=== PATIENT | male | born 1940 | race Caucasian/White ===

== ENCOUNTER 2017-11-06 01:48 | Inpatient (IN) | payer MEDICARE ==
[2017-11-06] VITALS (14 sets, daily range): BP systolic 118–159; BP diastolic 57–75; PULSE 68–88; RESP 16–20; TEMP 96–98.3; O2SAT 94–99
[2017-11-06] MEDS ORDERED: SODIUM CHLORIDE 0.9% FLUSH 10 ML FLUSH IVF PRN (02:15)
[2017-11-06] MEDS ORDERED: methylPREDNISolone SOD SUCC 125 MG/2 ML VIAL IV PUSH ONE (02:15)
[2017-11-06 02:27] LABS: AUTOMATED NEUTROPHIL # 8.2 TH/MM3 (1.8-7.7); BASOPHIL % 0.4 % (0.0-2.0); HEMATOCRIT 34.1 % (39.0-51.0); HEMOGLOBIN 11.2 GM/DL (13.0-17.0); LYMPH % 13.1 % (9.0-44.0); LYMPHOCYTE # 1.4 TH/MM3 (1.0-4.8); MEAN CELL VOLUME 82.5 FL (80.0-100.0); MEAN CORPUSCULAR HGB CONC 32.8 % (32.0-36.0); MEAN PLATELET VOLUME 7.3 FL (7.0-11.0); MONOCYTE # 0.7 TH/MM3 (0-0.9); NEUT % 79.5 % (16.0-70.0); PLATELET COUNT 398 TH/MM3 (150-450); RED BLOOD COUNT 4.13 MIL/MM3 (4.50-5.90); RED CELL DISTRIBUTION WIDTH 16.2 % (11.6-17.2); WHITE BLOOD COUNT 10.3 TH/MM3 (4.0-11.0)
--- NOTE | 2017-11-06 02:36 | RADRPT ---
EXAM DATE/TIME: 11/06/2017 02:17 [place] COMPARISON: No previous studies available for comparison. INDICATIONS : Short of breath. MEDICAL HISTORY : None. SURGICAL HISTORY : None. ENCOUNTER: Initial ACUITY: 1 day PAIN SCORE: 6/10 LOCATION: Bilateral chest FINDINGS: Ill-defined infiltrate in left lung base. Right lung is clear. A significant effusion demonstrated. N o pneumothorax. Heart size upper limits of normal. CONCLUSION: Mild left base infiltrate. Abdiel Vidales MD on November 06, 2017 at 2:34 Board Certified Radiologist. This report was verified electronically.
--- NOTE | 2017-11-06 02:38 | PD ---
HPI Chief Complaint: Respiratory Symptoms Time Seen by Provider: 02:05 Travel History International Travel<30 days: No Contact w/Intl Traveler<30days: No Traveled to known affect area: No History of Present Illness HPI 77-year-old male patient with history of COPD, recently admitted to [facility] for COPD, here because of disorientation tonight and worsening shortness of breath with low saturations of 67% when EMS got there. He was given nebulizers and saturations appeared to be improved and breathing appears to be improved. He is a poor historian, but denies any chest pains or other issues at this time. Modifying Factors: None Associated Signs & Symptoms: Altered mental status, worsening respiratory distress Risk Factors: COPD history PFSH Social History Tobacco Use: Yes Allergies-Medications (Allergen,Severity, Reaction): Coded Allergies: aspirin (Unverified Allergy, Severe, 04/13/17) Reported Meds & Prescriptions Reported Meds & Active Scripts Active Reported Novolog Inj (Insulin Aspart) 1,000 Unit/10 Ml Vial 0 SQ DIRECTED Sliding Scale as directed. Diltiazem (Diltiazem HCl) 60 Mg Tab 60 Mg PO QID Combivent Respimat Inh (Ipratropium-Albuterol Inh) 20-100 Long Term/Act Aero 1 Puff INH QID Duoneb (Ipratropium-Albuterol Neb) 0.5-2.5 Mg/3 Ml Neb 1 Nebule INH Q6HR NEB Linezolid 600 Mg Tab 600 Mg PO Q12H Potassium Chloride ER (Potassium Chloride) 10 Meq Cap 10 Meq PO BID Metoprolol Tartrate 25 Mg Tab 25 Mg PO BID Bumetanide 2 Mg Tab 2 Mg PO BID Eliquis (Apixaban) 5 Mg Tab 5 Mg PO BID Prednisone 20 Mg Tab 20 Mg PO BID Colace (Docusate Sodium) 100 Mg Capsule 100 Mg PO BID Lantus Inj (Insulin Glargine) 1,000 Unit/10 Ml Vial 60 Units SQ HS Asmanex 120 Act Twisthaler (Mometasone 120 Act Inh) 220 Mcg/Act Inh 1 Puff INH HS Gabapentin 300 Mg Cap 300 Mg PO HS Atorvastatin (Atorvastatin Calcium) 80 Mg Tab 80 Mg PO HS Novolog Inj (Insulin Aspart) 1,000 Unit/10 Ml Vial 45 Units SQ ACHS Max dose at bedtime:( )units; sugars less than 70,(0) units; sugars 150-199,(5) units; sugars 200-249,(10) units; sugars 250-299,(15) units; sugars 300-349,(20)units; sugars greater than 349,(25)units Miralax Powder (Polyethylene Glycol 3350 Powder) 17 Gm Powd 17 Gm PO DAILY Mix and dissolve one measuring cap-ful (17 grams) in water or juice. Stiolto Respimat Inh (Tiotropium-Olodaterol Inh) 2.5-2.5 Mcg/Act Aero 2 Puff INH DAILY Centrum (Multiple Vitamins W/ Minerals) 1 Chew 1 Tab CHEW DAILY Digoxin 0.125 Mg Tab 0.125 Mg PO DAILY Alfuzosin ER 24 HR 10 Mg Tab 10 Mg PO DAILY Prednisone 20 Mg Tab 20 Mg PO DAILY Omeprazole 20 Mg Tab 20 Mg PO DAILY Review of Systems ROS Limitations: Poor Historian Except as stated in HPI: all other systems reviewed are Neg Physical Exam Narrative GENERAL: Elderly white male patient who is in mild respiratory distress. Awake , disoriented. SKIN: Focused skin assessment warm/dry. HEAD: Atraumatic. Normocephalic. EYES: Pupils equal and round. No scleral icterus. No injection or drainage. ENT: No nasal bleeding or discharge. Mucous membranes pink and moist. NECK: Trachea midline. No JVD. CARDIOVASCULAR: Regular rate and rhythm. No murmur appreciated. RESPIRATORY: Mild accessory muscle use. Decreased throughout. Breath sounds equal bilaterally. GASTROINTESTINAL: Abdomen soft, non-tender, nondistended. Hepatic and splenic margins not palpable. MUSCULOSKELETAL: No obvious deformities. No clubbing. No cyanosis. No edema. NEUROLOGICAL: Awake and alert. No obvious cranial nerve deficits. Motor grossly within normal limits. Normal speech. PSYCHIATRIC: Appropriate mood and affect; insight and judgment normal. Data Data Last Documented VS Vital Signs Date Time Temp Pulse Resp B/P (MAP) Pulse Ox O2 Delivery O2 Flow Rate FiO2 11/06/17 02:57 78 18 118/57 (77) 95 Nasal Cannula 2.00 Orders Orders Complete Blood Count With Diff (11/06/17 02:05) Comprehensive Metabolic Panel (11/06/17 02:05) B-Type Natriuretic Peptide (11/06/17 02:05) Ckmb (Isoenzyme) Profile (11/06/17 02:05) Troponin I (11/06/17 02:05) Arterial Blood Gas (Abg) (11/06/17 02:05) Blood Culture (11/06/17 02:05) Iv Access Insert/Monitor (11/06/17 02:05) Ecg Monitoring (11/06/17 02:05) Oximetry (11/06/17 02:05) Oxygen Administration (11/06/17 02:05) Chest, Single Ap (11/06/17 02:05) Sodium Chloride 0.9% Flush (Ns Flush) (11/06/17 02:15) Methylprednisolone So Succ Inj (Solumedr (11/06/17 02:15) Albuterol-Ipratropium Neb (Duoneb Neb) (11/06/17 02:15) Admit Order (Ed Use Only) (11/06/17 03:40) Labs Laboratory Tests Test 11/06/17 02:08 11/06/17 02:45 White Blood Count 10.3 TH/MM3 Red Blood Count 4.13 MIL/MM3 Hemoglobin 11.2 GM/DL Hematocrit 34.1 % Mean Corpuscular Volume 82.5 FL Mean Corpuscular Hemoglobin 27.0 PG Mean Corpuscular Hemoglobin Concent 32.8 % Red Cell Distribution Width 16.2 % Platelet Count 398 TH/MM3 Mean Platelet Volume 7.3 FL Neutrophils (%) (Auto) 79.5 % Lymphocytes (%) (Auto) 13.1 % Monocytes (%) (Auto) 7.0 % Eosinophils (%) (Auto) 0.0 % Basophils (%) (Auto) 0.4 % Neutrophils # (Auto) 8.2 TH/MM3 Lymphocytes # (Auto) 1.4 TH/MM3 Monocytes # (Auto) 0.7 TH/MM3 Eosinophils # (Auto) 0.0 TH/MM3 Basophils # (Auto) 0.0 TH/MM3 CBC Comment DIFF FINAL Differential Comment Blood Urea Nitrogen 31 MG/DL Creatinine 1.35 MG/DL Random Glucose 283 MG/DL Total Protein 6.4 GM/DL Albumin 3.1 GM/DL Calcium Level 8.3 MG/DL Alkaline Phosphatase 45 U/L Aspartate Amino Transf (AST/SGOT) 12 U/L Alanine Aminotransferase (ALT/SGPT) 30 U/L Total Bilirubin 0.3 MG/DL Sodium Level 138 MEQ/L Potassium Level 4.3 MEQ/L Chloride Level 91 MEQ/L Carbon Dioxide Level 42.6 MEQ/L Anion Gap 4 MEQ/L Estimat Glomerular Filtration Rate 51 ML/MIN Total Creatine Kinase 39 U/L Troponin I 0.04 NG/ML B-Type Natriuretic Peptide 65 PG/ML Blood Gas Puncture Site LT BRACHIAL Blood Gas Patient Temperature 98.6 Blood Gas HCO3 40 mmol/L Blood Gas Base Excess 14.2 mmol/L Blood Gas Oxygen Saturation 90 % Arterial Blood pH 7.41 Arterial Blood Partial Pressure CO2 64 mmHg Arterial Blood Partial Pressure O2 62 mmHG Arterial Blood Oxygen Content 13.1 Vol % Arterial Blood Carboxyhemoglobin 1.7 % Arterial Blood Methemoglobin 0.5 % Blood Gas Hemoglobin 10.4 G/DL Oxygen Delivery Device NASAL CANNULA Blood Gas Liter Flow 2 L/M MDM Medical Decision Making Medical Screen Exam Complete: Yes Emergency Medical Condition: Yes Medical Record Reviewed: Yes Interpretation(s) Laboratory Tests Test 11/06/17 02:08 11/06/17 02:45 Red Blood Count 4.13 MIL/MM3 (4.50-5.90) Hemoglobin 11.2 GM/DL (13.0-17.0) Hematocrit 34.1 % (39.0-51.0) Neutrophils (%) (Auto) 79.5 % (16.0-70.0) Neutrophils # (Auto) 8.2 TH/MM3 (1.8-7.7) Blood Urea Nitrogen 31 MG/DL (7-18) Creatinine 1.35 MG/DL (0.60-1.30) Random Glucose 283 MG/DL (74-106) Albumin 3.1 GM/DL (3.4-5.0) Calcium Level 8.3 MG/DL (8.5-10.1) Aspartate Amino Transf (AST/SGOT) 12 U/L (15-37) Chloride Level 91 MEQ/L (98-107) Carbon Dioxide Level 42.6 MEQ/L (21.0-32.0) Anion Gap 4 MEQ/L (5-15) Estimat Glomerular Filtration Rate 51 ML/MIN (>89) Blood Gas HCO3 40 mmol/L (22-26) Blood Gas Base Excess 14.2 mmol/L (-2-2) Arterial Blood Partial Pressure CO2 64 mmHg (38-42) Blood Gas Hemoglobin 10.4 G/DL (12.0-16.0) Last 24 hours Impressions Chest X-Ray 11/06/17 0205 Signed Impressions: Service Date/Time: Monday, November 06, 2017 02:17 - CONCLUSION: Mild left base infiltrate. Abdiel Vidales MD Differential Diagnosis Shortness of breath, altered mental status: Worsening COPD exacerbation versus pneumonia versus metabolic issues versus dehydration versus hypercapnia Narrative Course Mild left basilar infiltrates on chest x-ray. Patient was given Solu-Medrol and several nebulizers in the ER with improvement in breathing and mental status. He apparently is on oxygen at home, and once he is more alert, does not remember how he got here what happened. He does have hypercapnia of 60 on ABG. At this point, I suspect that the hypercapnia may have been an issue as well. Patient admits that he had recently had pneumonia and is unclear whether the infiltrate is all from the pneumonia. My plan at this point would be to admit him for further observation and treatment. Case has been discussed with Dr. Alejandre for admission. Diagnosis Primary Impression: Shortness of breath Additional Impressions: COPD exacerbation Altered mental status Admitting Information Admitting Physician Requests: Admit Bolivar Khan MD Nov 06, 2017 02:38
[2017-11-06 02:45] LABS: ALBUMIN 3.1 GM/DL (3.4-5.0); AST (GOT) 12 U/L (15-37); BICARBONATE 42.6 MEQ/L (21.0-32.0); BLOOD UREA NITROGEN 31 MG/DL (7-18); CALCIUM 8.3 MG/DL (8.5-10.1); CHLORIDE 91 MEQ/L (98-107); CREATININE 1.35 MG/DL (0.60-1.30); GLOMERULAR FILTRATION RATE 51 ML/MIN (>89); GLUCOSE,RANDOM 283 MG/DL (74-106); SODIUM (NA) 138 MEQ/L (136-145)
[2017-11-06] MEDS: RESP: ALBUTEROL 2.5 MG/IPRATROPIUM 0.5 MG NEB (SCH) INH (02:45)
[2017-11-06] MEDS ORDERED: MIRA3350 PO (02:46)
[2017-11-06] MEDS ORDERED: OMEP20TA93 PO (02:46)
[2017-11-06] MEDS ORDERED: GABA300C5 PO (02:46)
[2017-11-06] MEDS ORDERED: ALFU10TA2 PO (02:46)
[2017-11-06] MEDS ORDERED: ATOR80TA45 PO (02:46)
[2017-11-06] MEDS ORDERED: CENTCHW4 CHEW (02:46)
[2017-11-06] MEDS ORDERED: ASMA220A INH (02:46)
[2017-11-06] MEDS ORDERED: COLA100C5 PO (02:46)
[2017-11-06] MEDS ORDERED: DIGO0.12 PO (02:46)
[2017-11-06] MEDS ORDERED: PRED20 PO ×2 (02:46→02:47)
[2017-11-06] MEDS ORDERED: NOVOLOGP2 SQ ×2 (02:46→02:47)
[2017-11-06] MEDS ORDERED: LANTUS2P SQ (02:46)
[2017-11-06] MEDS ORDERED: TIOT1AER INH (02:46)
[2017-11-06] MEDS ORDERED: BUME2TAB PO (02:47)
[2017-11-06] MEDS ORDERED: IPRAAER INH (02:47)
[2017-11-06] MEDS ORDERED: IPRASOL INH (02:47)
[2017-11-06] MEDS ORDERED: LINE1TAB PO (02:47)
[2017-11-06] MEDS ORDERED: LACT10SO PO (02:47)
[2017-11-06] MEDS ORDERED: METO25TA3 PO (02:47)
[2017-11-06] MEDS ORDERED: DILT60TA PO (02:47)
[2017-11-06] MEDS ORDERED: POTA10CA PO (02:47)
[2017-11-06] MEDS ORDERED: APIX5TAB PO (02:47)
[2017-11-06 02:50] LABS: ALKALINE PHOSPHATASE 45 U/L (45-117); ALT (GPT) 30 U/L (12-78); TOTAL BILIRUBIN ADULT 0.3 MG/DL (0.2-1.0); TOTAL PROTEIN 6.4 GM/DL (6.4-8.2); TROPONIN I 0.04 NG/ML (0.02-0.05)
[2017-11-06] MEDS ORDERED: RESP: ALBUTEROL 2.5 MG/IPRATROPIUM 0.5 MG NEB (PRN) NEB (03:45)
[2017-11-06] MEDS ORDERED: ONDANSETRON HCL 4 MG/2 ML VIAL IVP PRN (03:45)
[2017-11-06] MEDS ORDERED: SODIUM CHLORIDE 0.9% FLUSH 10 ML FLUSH IV FLUSH PRN (03:45)
[2017-11-06] MEDS ORDERED: MAGNESIUM HYDROXIDE SUSP 30 ML CUP PO PRN (03:45)
[2017-11-06] MEDS ORDERED: SENNOSIDES 8.6 MG TAB PO PRN (03:45)
[2017-11-06] MEDS ORDERED: ACETAMINOPHEN/HYDROcodone 325 MG/10 MG TAB PO PRN (03:45)
[2017-11-06] MEDS ORDERED: LACTULOSE SYRUP 20 GM/30 ML CUP PO PRN ×2 (03:45→12:45)
[2017-11-06] MEDS ORDERED: BISACODYL 10 MG SUPP RECTAL PRN (03:45)
[2017-11-06] MEDS ORDERED: ACETAMINOPHEN 325 MG TAB PO PRN (03:45)
[2017-11-06] MEDS ORDERED: LEVOFLOXACIN 750 MG PREMIX INJ 150 ML IV SCH ×2 (03:45→04:00)
[2017-11-06] MEDS ORDERED: ACETAMINOPHEN/HYDROcodone 325 MG/5 MG TAB PO PRN (03:45)
[2017-11-06] MEDS ORDERED: GLUCAGON 1 MG/ML VIAL OTHER PRN (04:30)
[2017-11-06] MEDS ORDERED: DEXTROSE 50% IN WATER 50 ML VIAL(D50) IV PUSH PRN (04:30)
[2017-11-06] MEDS ORDERED: methylPREDNISolone SOD SUCC 40 MG/1 ML VIAL IV PUSH SCH ×2 (06:00)
[2017-11-06] MEDS: RESP: ALBUTEROL 2.5 MG/IPRATROPIUM 0.5 MG NEB (SCH) NEB ×5 (07:31→23:24)
[2017-11-06] MEDS ORDERED: RESP: ALBUTEROL 2.5 MG/IPRATROPIUM 0.5 MG NEB (SCH) NEB (08:00)
[2017-11-06] MEDS: INSULIN ASPART SUPPLEMENTAL SCALE SQ SCH ×5 (08:08→21:58)
[2017-11-06] MEDS: LINEZOLID 600 MG TAB PO SCH ×2 (08:09→21:57)
[2017-11-06] MEDS ORDERED: ENOXAPARIN SODIUM 40 MG/0.4 ML SYRINGE SQ SCH (09:00)
[2017-11-06] MEDS ORDERED: SODIUM CHLORIDE 0.9% FLUSH 10 ML FLUSH IV FLUSH SCH (09:00)
[2017-11-06] MEDS ORDERED: DOCUSATE SODIUM 50 MG/SENNA 8.6 MG TAB PO SCH (09:00)
[2017-11-06] MEDS ORDERED: BUDESONIDE-FORMOTEROL 160/4.5 MCG INHALER INH SCH (09:00)
[2017-11-06] MEDS ORDERED: guaiFENesin E.R. 600 MG TAB PO SCH (09:00)
--- NOTE | 2017-11-06 12:18 | HHI.HP ---
HPI Service [facility] Hospitalists Primary Care Physician Dr. Brijesh Leon Admission Diagnosis COPD exacerbation/altered mental status/hypercapnia Chief Complaint: SOB, hypoxia Travel History International Travel<30 Days: No Contact w/Intl Traveler <30 Da: No Traveled to Known Affected Are: No History of Present Illness Mr. Varela is a pleasant 77 y/o male with O2 dependent severe COPD, ADRIAN using BiPAP at night, A. fib, chronic diastolic CHF, and HTN who was just discharged from [facility] on 11/05/17 to a SNF after a hospitalizations (10/24/17-11/05/17) for acute on chronic respiratory failure, MRSA pneumonia ,COPD exacerbation, and A. fib RVR. Review of the discharge summary from [facility] reports that the pt was intubated from 10/24-10/25/17 and was treated for acute COPD exacerbation with nebs and steroids. Pt was also being treated for MRSA pneumonia with Zyvoxx per ID recommendations. It appears the pt developed A. fib RVR during that hospitalization and was treated with IV Dig and IV Verapamil and then converted to Digoxin 0.125mg po daily and Diltiazem 60mg QID. Prior to that admission he was admitted from September 23-Oct 03, 2017 with enterococcus bacteremia, Pneumonia , COPD and a buttock wound. According to outpt records he was treated as an outpt with IV Unasyn until 10/12/17. Pt was brought to the ED at [facility] on 11/05/17 from [facility] with reported confusion and worsening shortness of breath that started during the night. Pt was noted to have low O2 saturations of 67% when EMS arrived at the rehab. He was given nebulizers en route per the ED reports and O2 saturations appeared to be improved. Pt was given a dose of IV Solu-Medrol in the ED and repeat Duoneb treatments. Blood cultures were drawn in the ED. Pt has been afebrile and WBC count was 10 at admission. He has been maintaining O2 sats on 2-3L of supplemental O2 which is reportedly what he is on chronically. Pt was continued on Solu-Medrol 40mg Q8H. Pts family reports that the pt has been having issues with anxiety and they felt that the pt may have had increased anxiety last night which has caused him to drop his O2 sats in the past. Pt takes Xanax at home for anxiety but family reports that during his last hospitalization he was given Ativan and slept for 12 hours and was told not to use any anxiolytics anymore but they family feels that the pt was just given too large of a dose and are wanting to go back to the pts smaller Xanax dose as needed. Pt and family at bedside feel that his breathing is back to around baseline. Review of Systems ROS Limitations: Poor Historian Respiratory: COMPLAINS OF: Cough, Shortness of breath Past Family Social History Past Medical History Severe COPD, O2 dependent. Pt follows with Dr. Pirce as an outpt ADRIAN on BIPAP at night Hx of respiratory failure requiring mechanical ventilation A. fib CHF, chronic diastolic IDDM Anxiety 1st degree AV block Iron deficiency anemia HTN Hyperlipidemia GERD Gastroparesis Hx of tobacco use Past Surgical History Right knee surgery Right carpal tunnel release Cardiac ablation Reported Medications -Duoneb (Ipratropium-Albuterol Neb) 0.5-2.5 Mg/3 Ml Neb 1 Nebule INH Q6HR NEB -Metoprolol Tartrate 25 Mg PO BID -Bumetanide 2 Mg PO BID -Eliquis 5 Mg PO BID -Lantus Inj 60 Units SQ HS -Asmanex 120 Act Twisthaler (Mometasone 120 Act Inh) 220 Mcg/Act Inh 1 Puff INH HS -Gabapentin 300 Mg PO HS -Atorvastatin 80 Mg PO HS -Miralax Powder 17 Gm PO DAILY -Stiolto Respimat Inh (Tiotropium-Olodaterol Inh) 2.5-2.5 Mcg/Act Aero 2 Puff INH DAILY -Centrum (Multiple Vitamins W/ Minerals) 1 Chew 1 Tab CHEW DAILY -Digoxin 0.125 Mg PO DAILY -Alfuzosin ER 24 HR 10 Mg PO DAILY -Omeprazole 20 Mg PO DAILY -Linezolid 600 Mg PO Q12H -Diltiazem 60 Mg PO QID --Prednisone 20 Mg PO BID x 7 days then decrease to Prednisone 20 Mg PO DAILY --Novolog Inj 30Units with Breakfast, 30Units with Lunch, 45Units with dinner ?HumaLog SSI ?Combivent Respimat Inh (Ipratropium-Albuterol Inh) 20-100 Snf/Act Aero 1 Puff INH QID ?Potassium Chloride ER 10 Meq PO BID Allergies: Coded Allergies: aspirin (Unverified Allergy, Severe, 11/06/17) codeine (Verified Allergy, Severe, 11/06/17) Family History Noncontributory Social History Hx of tobacco use, smoked 3ppd x 40years, quit in 1998 Physical Exam Vital Signs Vital Signs Date Time Temp Pulse Resp B/P (MAP) Pulse Ox O2 Delivery O2 Flow Rate FiO2 11/06/17 08:50 11/06/17 08:10 98.3 76 16 159/73 (101) 96 Nasal Cannula 2.00 11/06/17 07:32 98 Nasal Cannula 3.00 11/06/17 05:20 70 18 149/68 (95) 94 Nasal Cannula 2.00 11/06/17 04:08 96 Nasal Cannula 3.00 11/06/17 02:57 78 18 118/57 (77) 95 Nasal Cannula 2.00 11/06/17 01:50 18 95 Nasal Cannula 2.00 11/06/17 01:50 96 Nasal Cannula 2.00 Physical Exam GENERAL: This is a well-nourished, well-developed patient, in no apparent distress. SKIN: No rashes, ecchymoses or lesions. Cool and dry. HEAD: Atraumatic. Normocephalic. No temporal or scalp tenderness. EYES: Pupils equal round and reactive. Extraocular motions intact. No scleral icterus. No injection or drainage. ENT: Nose without bleeding, purulent drainage or septal hematoma. Throat without erythema, tonsillar hypertrophy or exudate. Uvula midline. Airway patent. NECK: Trachea midline. No JVD or lymphadenopathy. Supple, nontender, no meningeal signs. CARDIOVASCULAR: Regular rate and rhythm without murmurs, gallops, or rubs. RESPIRATORY: Clear to auscultation. Breath sounds equal bilaterally. No wheezes , rales, or rhonchi. GASTROINTESTINAL: Abdomen soft, non-tender, nondistended. No hepato-splenomegaly , or palpable masses. No guarding. MUSCULOSKELETAL: Extremities without clubbing, cyanosis, or edema. No joint tenderness, effusion, or edema noted. No calf tenderness. Negative Homans sign bilaterally. NEUROLOGICAL: Awake and alert. Cranial nerves II through XII intact. Motor and sensory grossly within normal limits. Five out of 5 muscle strength in all muscle groups. Normal speech. Laboratory Laboratory Tests Test 3/10/18 02:08 11/06/17 02:45 White Blood Count 10.3 Red Blood Count 4.13 Hemoglobin 11.2 Hematocrit 34.1 Mean Corpuscular Volume 82.5 Mean Corpuscular Hemoglobin 27.0 Mean Corpuscular Hemoglobin Concent 32.8 Red Cell Distribution Width 16.2 Platelet Count 398 Mean Platelet Volume 7.3 Neutrophils (%) (Auto) 79.5 Lymphocytes (%) (Auto) 13.1 Monocytes (%) (Auto) 7.0 Eosinophils (%) (Auto) 0.0 Basophils (%) (Auto) 0.4 Neutrophils # (Auto) 8.2 Lymphocytes # (Auto) 1.4 Monocytes # (Auto) 0.7 Eosinophils # (Auto) 0.0 Basophils # (Auto) 0.0 CBC Comment DIFF FINAL Differential Comment Blood Urea Nitrogen 31 Creatinine 1.35 Random Glucose 283 Total Protein 6.4 Albumin 3.1 Calcium Level 8.3 Alkaline Phosphatase 45 Aspartate Amino Transf (AST/SGOT) 12 Alanine Aminotransferase (ALT/SGPT) 30 Total Bilirubin 0.3 Sodium Level 138 Potassium Level 4.3 Chloride Level 91 Carbon Dioxide Level 42.6 Anion Gap 4 Estimat Glomerular Filtration Rate 51 Total Creatine Kinase 39 Troponin I 0.04 B-Type Natriuretic Peptide 65 Blood Gas Puncture Site LT BRACHIAL Blood Gas Patient Temperature 98.6 Blood Gas HCO3 40 Blood Gas Base Excess 14.2 Blood Gas Oxygen Saturation 90 Arterial Blood pH 7.41 Arterial Blood Partial Pressure CO2 64 Arterial Blood Partial Pressure O2 62 Arterial Blood Oxygen Content 13.1 Arterial Blood Carboxyhemoglobin 1.7 Arterial Blood Methemoglobin 0.5 Blood Gas Hemoglobin 10.4 Oxygen Delivery Device NASAL CANNULA Blood Gas Liter Flow 2 Date/Time Source Procedure Growth Status 11/06/17 02:08 Blood Peripheral Aerobic Blood Culture Pending Received 11/06/17 02:08 Blood Peripheral Anaerobic Blood Culture Pending Received Result Diagram: 11/06/1720711/06/17207 Imaging Last Impressions Chest X-Ray 11/06/17204 Signed Impressions: Service Date/Time: Monday, November 06, 2017 02:17 - CONCLUSION: Mild left base infiltrate. MD Faina Gamboa VTE Risk Assessment Faina VTE Risk Assessment: Mod/High Risk (score >= 2) Caprini Risk Assessment Model Point Value = 1 Point Value = 2 Point Value = 3 Point Value = 5 Age 41-60 Minor surgery BMI > 25 kg/m2 Swollen legs Varicose veins or History of unexplained or recurrent spontaneous Oral contraceptives or hormone replacement Sepsis (< 1 month) Serious lung disease, including pneumonia (< 1 month) Abnormal pulmonary function Acute myocardial infarction Congestive heart failure (< 1 month) History of inflammatory bowel disease Medical patient at bed rest Age 61-74 Arthroscopic surgery Major open surgery (> 45 min) Laparoscopic surgery (> 45 min) Malignancy Confined to bed (> 72 hours) Immobilizing plaster cast Central venous access Age >= 75 History of VTE Family history of VTE Factor V Leiden Prothrombin [id number] Lupus anticoagulant Anticardiolipin antibodies Elevated serum homocysteine Heparin-induced thrombocytopenia Other congenital or acquired thrombophilia Stroke (< 1 month) Elective arthroplasty Hip, pelvis, or leg fracture Acute spinal cord injury (< 1 month) Prophylaxis Regimen Total Risk Factor Score Risk Level Prophylaxis Regimen 0-1 Low Early ambulation 2 Moderate Order ONE of the following: *Sequential Compression Device (SCD) *Heparin 5000 units SQ BID 3-4 Higher Order ONE of the following medications: *Heparin 5000 units SQ TID *Enoxaparin/Lovenox 40 mg SQ daily (WT < 150 kg, CrCl > 30 mL/min) *Enoxaparin/Lovenox 30 mg SQ daily (WT < 150 kg, CrCl > 10-29 mL/min) *Enoxaparin/Lovenox 30 mg SQ BID (WT < 150 kg, CrCl > 30 mL/min) AND/OR *Sequential Compression Device (SCD) 5 or more Highest Order ONE of the following medications: *Heparin 5000 units SQ TID (Preferred with Epidurals) *Enoxaparin/Lovenox 40 mg SQ daily (WT < 150 kg, CrCl > 30 mL/min) *Enoxaparin/Lovenox 30 mg SQ daily (WT < 150 kg, CrCl > 10-29 mL/min) *Enoxaparin/Lovenox 30 mg SQ BID (WT < 150 kg, CrCl > 30 mL/min) AND *Sequential Compression Device (SCD) Assessment and Plan Problem List: (1) COPD exacerbation ICD Codes: J44.1 - Chronic obstructive pulmonary disease with (acute) exacerbation Status: Acute Plan: COPD Exacerbation MRSA Pneumonia, diagnosed during recent hospitalization ADRIAN on BiPAP/Trilogy - Pt is a 77 y/o male with O2 dependent severe COPD, ADRIAN using BiPAP at night, A. fib, chronic diastolic CHF, and HTN who was just discharged from [facility] on 11/05/17 to a SNF after a hospitalizations (10/24/17-11/05/17) for acute on chronic respiratory failure, MRSA pneumonia ,COPD exacerbation, and A. fib RVR. Pt was treated for acute COPD exacerbation with nebs and steroids. Pt was also being treated for MRSA pneumonia with Zyvoxx per ID recommendations. It appears the pt developed A. fib RVR during that hospitalization and was treated with IV Dig and IV Verapamil and then converted to Digoxin 0.125mg po daily and Diltiazem 60mg QID was added to his regimen. - Pt was brought to the ED at [facility] [place] on 11/05/17 from [facility] with reported confusion and worsening shortness of breath that started during the night. Pt was noted to have low O2 saturations of 67% when EMS arrived at the rehab. He was given nebulizers en route per the ED reports and O2 saturations appeared to be improved. - Pt was given a dose of IV Solu-Medrol in the ED and repeat Duoneb treatments. - Blood cultures were drawn in the ED. Pt has been afebrile and WBC count was 10 at admission. - He has been maintaining O2 sats on 2-3L of supplemental O2 which is reportedly what he is on chronically. - Pt was continued on Solu-Medrol 40mg Q8H. - Pts family reports that the pt has been having issues with anxiety and they felt that the pt may have had increased anxiety last night which has caused him to drop his O2 sats in the past. - Pt and family at bedside feel that his breathing is back to around baseline. - Convert Solu-Medrol to Prednisone 40mg po BID which was prescribed at discharge from [facility] x 7 days, then decrease to 20mg po daily - Cont. Duonebs Q4H - Xanax 0.25mg po daily PRN anxiety - Cont. Zyvox 600mg po BID - Pts to bring his Trilogy or BiPAP to the hospital for tonight - Anticipate discharge back to rehab tomorrow as long as pt remains stable A. fib with recent RVR Hx of A. fib ablation - Resume pts discharge medications, including Dig 0.125mg po daily, Metoprolol 25mg po BID, and Diltiazem 60mg QID - Resume Eliquis - Telemetry - Pt is rate controlled currently Diabetes mellitus - NovoLog SSI - Levemir 20 units at night - Accu checks HTN - Home meds continued Chronic diastolic CHF - Echo from 09/29/17 noted EF 55-60%, RSVP 23mmHg - Resume Bumex 20mg po BID - Renal function labs are similar to labs reported during recent hospitalization - Monitor (2) MRSA pneumonia ICD Codes: J15.212 - Pneumonia due to Methicillin resistant Staphylococcus aureus (3) HTN (hypertension) ICD Codes: I10 - Essential (primary) hypertension (4) A-fib ICD Codes: I48.91 - Unspecified atrial fibrillation (5) ADRIAN (obstructive sleep apnea) ICD Codes: G47.33 - Obstructive sleep apnea (adult) (pediatric) (6) Diabetes mellitus type 2, insulin dependent ICD Codes: E11.9 - Type 2 diabetes mellitus without complications; Z79.4 - intermediate (current) use of insulin (7) CHF (congestive heart failure) ICD Codes: I50.9 - Heart failure, unspecified Assessment and Plan Patient examined. Assessment and plan formulated with Sandra Ramirez PA-C. I agree with the above. copd exacerbation, mrsa pna, afib controlled. just sent to snf from [facility] yesterday. 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 family says he does well with .25mg at home and they gave him full 1mg at that made him very sleepy. if stable return to snf in AM Physician Certification 2 Midnight Certification Type: Admission for Inpatient Services Order for Inpatient Services The services are ordered in accordance with Medicare regulations or non- Medicare payer requirements, as applicable. In the case of services not specified as inpatient-only, they are appropriately provided as inpatient services in accordance with the 2-midnight benchmark. Estimated LOS (days): 3 3 days is the estimated time the patient will need to remain in the hospital, assuming treatment plan goals are met and no additional complications. Post-Hospital Plan: SNF Sandra Ramirez Nov 06, 2017 12:17 Elvis Moon MD Nov 06, 2017 15:08
[2017-11-06] MEDS ORDERED: ALPRAZolam 0.25 MG TAB PO PRN ×2 (12:45→13:15)
[2017-11-06] MEDS: METOPROLOL TARTRATE 25 MG TAB PO SCH (14:00)
[2017-11-06] MEDS: APIXABAN 5 MG TABLET PO SCH ×2 (14:19→21:57)
[2017-11-06] MEDS: DILTIAZEM HCL 60 MG TAB PO SCH ×3 (14:20→21:57)
[2017-11-06] MEDS ORDERED: INSULIN DETEMIR 100 UNITS/ML VIAL SQ SCH ×2 (21:00)
[2017-11-06] MEDS ORDERED: MOMETASONE INH SCH (21:00)
[2017-11-06] MEDS ORDERED: APIXABAN 5 MG TABLET PO SCH (21:00)
[2017-11-06] MEDS ORDERED: METOPROLOL TARTRATE 25 MG TAB PO SCH (21:00)
[2017-11-06] MEDS: BUMETANIDE 1 MG TAB PO SCH (21:57)
[2017-11-06] MEDS: GABAPENTIN 300 MG CAP PO SCH (21:57)
[2017-11-06] MEDS: predniSONE 20 MG TAB PO SCH (21:57)
[2017-11-06] MEDS: DOCUSATE SODIUM 100 MG CAP PO SCH (21:57)
[2017-11-06] MEDS: ATORVASTATIN 80 MG TAB PO SCH (21:58)
--- NOTE | 2017-11-06 23:52 | EKG ---
Date Performed: 11/06/2017 Time Performed: 01:58:37 PTAGE: 77 years EKG: Sinus rhythm NONSPECIFIC T-WAVE ABNORMALITY BORDERLINE ECG PREVIOUS TRACING : 12/07/2003 04.30 Since the prior tracing, there has been no significant dove DOCTOR: Neto Woodward Interpretating Date/Time 11/06/2017 23:50:51
[2017-11-07] VITALS (9 sets, daily range): BP systolic 96–136; BP diastolic 49–78; PULSE 53–137; RESP 16–19; TEMP 96.5–97.7; O2SAT 95–99
[2017-11-07] MEDS: METOPROLOL TARTRATE 25 MG TAB PO SCH ×4 (02:00→21:33)
[2017-11-07] MEDS: RESP: ALBUTEROL 2.5 MG/IPRATROPIUM 0.5 MG NEB (SCH) NEB ×6 (03:20→23:54)
[2017-11-07] MEDS: APIXABAN 5 MG TABLET PO SCH ×2 (07:30→21:33)
[2017-11-07] MEDS: DILTIAZEM HCL 60 MG TAB PO SCH ×4 (07:30→21:33)
[2017-11-07] MEDS: TAMSULOSIN HCL 0.4 MG CAP PO SCH (07:30)
[2017-11-07] MEDS: PANTOPRAZOLE SOD 20 MG DELAYED RELEASE TAB PO SCH (07:30)
[2017-11-07] MEDS: DIGOXIN 0.125 MG TAB PO SCH (07:30)
[2017-11-07] MEDS: LINEZOLID 600 MG TAB PO SCH ×2 (07:31→21:32)
[2017-11-07] MEDS: BUMETANIDE 1 MG TAB PO SCH ×2 (07:31→21:32)
[2017-11-07] MEDS: predniSONE 20 MG TAB PO SCH ×2 (07:31→21:33)
[2017-11-07] MEDS: DOCUSATE SODIUM 100 MG CAP PO SCH ×2 (07:31→21:33)
[2017-11-07] MEDS: POLYETHYLENE GLYCOL 17 GM PKG PO SCH (07:31)
[2017-11-07] MEDS: INSULIN ASPART SUPPLEMENTAL SCALE SQ SCH ×4 (07:36→21:37)
[2017-11-07 07:37] LABS: AUTOMATED NEUTROPHIL # 11.5 TH/MM3 (1.8-7.7); BASOPHIL % 0.1 % (0.0-2.0); HEMATOCRIT 32.7 % (39.0-51.0); HEMOGLOBIN 10.6 GM/DL (13.0-17.0); LYMPH % 8.4 % (9.0-44.0); LYMPHOCYTE # 1.1 TH/MM3 (1.0-4.8); MEAN CELL VOLUME 82.4 FL (80.0-100.0); MEAN CORPUSCULAR HEMOGLOBIN 26.7 PG (27.0-34.0); MEAN CORPUSCULAR HGB CONC 32.4 % (32.0-36.0); MEAN PLATELET VOLUME 7.3 FL (7.0-11.0); MONOCYTE # 0.7 TH/MM3 (0-0.9); NEUT % 86.5 % (16.0-70.0); PLATELET COUNT 394 TH/MM3 (150-450); RED BLOOD COUNT 3.97 MIL/MM3 (4.50-5.90); RED CELL DISTRIBUTION WIDTH 16.1 % (11.6-17.2); WHITE BLOOD COUNT 13.3 TH/MM3 (4.0-11.0)
[2017-11-07 08:04] LABS: CALCIUM 8.7 MG/DL (8.5-10.1); CREATININE 1.13 MG/DL (0.60-1.30); MAGNESIUM 2.1 MG/DL (1.5-2.5)
[2017-11-07] MEDS ORDERED: TIOTROPIUM OLODATEROL INH SCH (09:00)
--- NOTE | 2017-11-07 10:17 | HHI.PR ---
Subjective Remarks missed dose metoprolol last night and had some tachycardia earlier this AM..improved after resuming meds. no complaints. Objective Vitals heart irreg lungdiminished miguel abd s/nt ext chronic edema changes Vital Signs Date Time Temp Pulse Resp B/P (MAP) Pulse Ox O2 Delivery O2 Flow Rate FiO2 11/07/17 08:54 3.00 11/07/17 08:00 97.4 137 18 112/78 (89) 99 11/07/17 04:40 96.8 67 17 134/69 (90) 95 11/07/17 04:00 53 11/07/17 00:00 59 11/06/17 23:25 96.5 68 18 139/72 (94) 97 11/06/17 20:28 98 Nasal Cannula 3.00 11/06/17 20:10 71 11/06/17 19:45 97.6 70 18 131/63 (85) 95 11/06/17 16:30 73 11/06/17 16:00 96.0 69 20 135/68 (90) 98 11/06/17 12:00 97.1 88 20 144/73 (96) 97 11/07/17 11/07/17 11/08/17 15:00 23:00 07:00 Intake Total 720 ml Output Total 600 ml Balance 120 ml Intake Oral 720 ml Output Urine Total 600 ml # Bowel Movements 0 Result Diagram: 11/07/17 0705 11/07/17 0705 Imaging Last Impressions Chest X-Ray 11/06/17 0205 Signed Impressions: Service Date/Time: Monday, November 06, 2017 02:17 - CONCLUSION: Mild left base infiltrate. Abdiel Vidales MD A/P Problem List: (1) COPD exacerbation ICD Codes: J44.1 - Chronic obstructive pulmonary disease with (acute) exacerbation Status: Acute Plan: COPD Exacerbation MRSA Pneumonia, diagnosed during recent hospitalization ADRIAN on BiPAP/Trilogy - Pt is a 77 y/o male with O2 dependent severe COPD, ADRIAN using BiPAP at night, A. fib, chronic diastolic CHF, and HTN who was just discharged from [facility] on 11/05/17 to a SNF after a hospitalizations (10/24/17-11/05/17) for acute on chronic respiratory failure, MRSA pneumonia ,COPD exacerbation, and A. fib RVR. Pt was treated for acute COPD exacerbation with nebs and steroids. Pt was also being treated for MRSA pneumonia with Zyvoxx per ID recommendations. It appears the pt developed A. fib RVR during that hospitalization and was treated with IV Dig and IV Verapamil and then converted to Digoxin 0.125mg po daily and Diltiazem 60mg QID was added to his regimen. - Pt was brought to the ED at [facility] on 11/05/17 from [facility] with reported confusion and worsening shortness of breath that started during the night. Pt was noted to have low O2 saturations of 67% when EMS arrived at the rehab. He was given nebulizers en route per the ED reports and O2 saturations appeared to be improved. - Pt was given a dose of IV Solu-Medrol in the ED and repeat Duoneb treatments. - Blood cultures were drawn in the ED. Pt has been afebrile and WBC count was 10 at admission. - He has been maintaining O2 sats on 2-3L of supplemental O2 which is reportedly what he is on chronically. - Pt was continued on Solu-Medrol 40mg Q8H. - Pts family reports that the pt has been having issues with anxiety and they felt that the pt may have had increased anxiety last night which has caused him to drop his O2 sats in the past. - Pt and family at bedside feel that his breathing is back to around baseline. - Convert Solu-Medrol to Prednisone 40mg po BID which was prescribed at discharge from [facility] x 7 days, then decrease to 20mg po daily - Cont. Duonebs Q4H - Xanax 0.25mg po daily PRN anxiety - Cont. Zyvox 600mg po BID - Pts to bring his Trilogy or BiPAP to the hospital for tonight - Pt respiratory status stable d/c back to snf today discussed with his ....she is hoping to stay with him at snf to keep him calm will resume his ativan .25mg dose as he uses at home. this was stopped recently after he was given a larger dose with sedation side effects at the outside hospital. has some afib/rvr this AM after missing dose bb last night...improving now. A. fib with recent RVR Hx of A. fib ablation - Resume pts discharge medications, including Dig 0.125mg po daily, Metoprolol 25mg po BID, and Diltiazem 60mg QID - Resume Eliquis -see above Diabetes mellitus - NovoLog SSI - resume outpt levemir dosing. - Accu checks HTN - Home meds continued Chronic diastolic CHF - Echo from 09/29/17 noted EF 55-60%, RSVP 23mmHg - Resume Bumex 20mg po BID - Renal function labs are similar to labs reported during recent hospitalization - Monitor (2) MRSA pneumonia ICD Codes: J15.212 - Pneumonia due to Methicillin resistant Staphylococcus aureus Status: Acute (3) HTN (hypertension) ICD Codes: I10 - Essential (primary) hypertension Status: Chronic (4) A-fib ICD Codes: I48.91 - Unspecified atrial fibrillation (5) ADRIAN (obstructive sleep apnea) ICD Codes: G47.33 - Obstructive sleep apnea (adult) (pediatric) Status: Chronic (6) Diabetes mellitus type 2, insulin dependent ICD Codes: E11.9 - Type 2 diabetes mellitus without complications; Z79.4 - MCFP (current) use of insulin Status: Chronic (7) CHF (congestive heart failure) ICD Codes: I50.9 - Heart failure, unspecified Status: Chronic Elvis Moon MD Nov 07, 2017 10:17
[2017-11-07] MEDS ORDERED: LORA0.5T PO (10:34)
[2017-11-07] MEDS ORDERED: LINE1TAB PO (10:34)
[2017-11-07] MEDS ORDERED: METO25TA3 PO (10:34)
[2017-11-07] MEDS ORDERED: NOVOLOGSS SQ (10:34)
[2017-11-07] MEDS ORDERED: PRED10 PO (10:34)
[2017-11-07] MEDS ORDERED: NOVOLOGP2 SQ (10:38)
--- NOTE | 2017-11-07 10:40 | HHI.DCPOC ---
Discharge Care Plan Diagnosis: (1) Anxiety (2) A-fib (3) COPD exacerbation (4) MRSA pneumonia (5) Diabetes mellitus type 2, insulin dependent (6) ADRIAN (obstructive sleep apnea) (7) HTN (hypertension) (8) CHF (congestive heart failure) Goals to Promote Your Health * To prevent worsening of your condition and complications * To maintain your health at the optimal level Directions to Meet Your Goals Take your medications as prescribed Follow your dietary instruction Follow activity as directed Keep your appointments as scheduled Take your immunizations and boosters as scheduled If your symptoms worsen call your PCP, if no PCP go to Urgent Care Center or Emergency Room Smoking is Dangerous to Your Health. Avoid second hand smoke Call the 24-hour hour crisis hotline for domestic abuse at Elvis Moon MD Nov 07, 2017 10:40
[2017-11-07] MEDS ORDERED: METOPROLOL TARTRATE 25 MG TAB PO ONE (11:00)
[2017-11-07] MEDS ORDERED: INSULIN DETEMIR 100 UNITS/ML VIAL SQ SCH (21:00)
[2017-11-07] MEDS: ATORVASTATIN 80 MG TAB PO SCH (21:33)
[2017-11-07] MEDS: GABAPENTIN 300 MG CAP PO SCH (21:33)
[2017-11-08 00:25] VITALS: BP 123/76; PULSE 112; RESP 18; TEMP 96.8; O2SAT 97
[2017-11-08] MEDS: RESP: ALBUTEROL 2.5 MG/IPRATROPIUM 0.5 MG NEB (SCH) NEB ×4 (03:09→16:33)
[2017-11-08 04:30] VITALS: BP 109/57; PULSE 99; RESP 18; TEMP 96.7; O2SAT 96
[2017-11-08 08:00] VITALS: BP 104/80; PULSE 97; RESP 17; TEMP 96.9; O2SAT 99
[2017-11-08] MEDS: INSULIN ASPART SUPPLEMENTAL SCALE SQ SCH ×3 (08:00→16:47)
[2017-11-08] MEDS: DILTIAZEM HCL 60 MG TAB PO SCH ×2 (09:00→13:00)
[2017-11-08] MEDS: LINEZOLID 600 MG TAB PO SCH (09:00)
[2017-11-08 09:01] VITALS: O2SAT 97
[2017-11-08] MEDS: BUMETANIDE 1 MG TAB PO SCH (09:21)
[2017-11-08] MEDS: DOCUSATE SODIUM 100 MG CAP PO SCH (09:21)
[2017-11-08] MEDS: POLYETHYLENE GLYCOL 17 GM PKG PO SCH (09:21)
[2017-11-08] MEDS: TAMSULOSIN HCL 0.4 MG CAP PO SCH (09:21)
[2017-11-08] MEDS: PANTOPRAZOLE SOD 20 MG DELAYED RELEASE TAB PO SCH (09:22)
[2017-11-08] MEDS: METOPROLOL TARTRATE 25 MG TAB PO SCH (09:22)
[2017-11-08] MEDS: DIGOXIN 0.125 MG TAB PO SCH (09:22)
[2017-11-08] MEDS: predniSONE 20 MG TAB PO SCH (09:22)
[2017-11-08] MEDS: APIXABAN 5 MG TABLET PO SCH (09:22)
[2017-11-08 12:00] VITALS: BP 120/64; PULSE 77; RESP 18; TEMP 97.6; O2SAT 96
== END 2017-11-08 17:42 | DRG 190 ==
LOC: NEPE 01:48 → NEDA 06:17 → N06B 09:31
PROVIDERS: ADMIT Hospitalist; ATTEND Hospitalist
DX: J44.1 Chronic obstructive pulmonary disease with (acute) exacerbation (principal); J15.212 Pneumonia due to Methicillin resistant Staphylococcus aureus; I11.0 Hypertensive heart disease with heart failure; Z99.81 Dependence on supplemental oxygen; R06.03 Acute respiratory distress; I50.32 Chronic diastolic (congestive) heart failure; I48.91 Unspecified atrial fibrillation; E11.9 Type 2 diabetes mellitus without complications; D50.9 Iron deficiency anemia, unspecified; R41.82 Altered mental status, unspecified; G47.33 Obstructive sleep apnea (adult) (pediatric); F41.9 Anxiety disorder, unspecified; J44.0 Chronic obstructive pulmonary disease with (acute) lower respiratory infection; E78.5 Hyperlipidemia, unspecified; R00.0 Tachycardia, unspecified; K21.9 Gastro-esophageal reflux disease without esophagitis; Z79.4 Long term (current) use of insulin; Z72.0 Tobacco use; Z87.01 Personal history of pneumonia (recurrent); Z86.14 Personal history of Methicillin resistant Staphylococcus aureus infection
CPT/HCPCS: 36600; 71045; 80048; 80053; 82550; 82805; 82948; 83735; 83880; 84484; 85025; 87040; 87070; 87205; 87641; 93005; 94640; 94664; 96374; J1815; J2920; J2930; J7512

== ENCOUNTER 2017-11-14 12:34 | Inpatient (IN) | payer MEDICARE ==
[2017-11-14] VITALS (8 sets, daily range): BP systolic 121–156; BP diastolic 71–83; PULSE 74–117; RESP 16–31; TEMP 98–98.9; O2SAT 84–100
[~2017-11-14] VITALS: Ht 182.9 cm; Wt 99.6 kg
[~2017-11-14 12:34] MED LIST: ALFU10TA2 PO; APIX5TAB PO; ASMA220A INH; ATOR80TA45 PO; BUME2TAB PO; CENTCHW4 CHEW; COLA100C5 PO; DIGO0.12 PO; DILT60TA PO; GABA300C5 PO; IPRAAER INH; IPRASOL INH; LACT10SO PO; LANTUS2P SQ; LINE1TAB PO; LORA0.5T PO; METO25TA3 PO; MIRA3350 PO; NOVOLOGP2 SQ; NOVOLOGSS SQ; OMEP20TA93 PO; POTA10CA PO; PRED10 PO; TIOT1AER INH
[2017-11-14] MEDS ORDERED: SODIUM CHLORIDE 0.9% FLUSH 10 ML FLUSH IVF PRN (12:45)
--- NOTE | 2017-11-14 12:51 | PD ---
HPI Chief Complaint: Respiratory Distress Time Seen by Provider: 12:41 Travel History International Travel<30 days: No Contact w/Intl Traveler<30days: No Traveled to known affect area: No History of Present Illness HPI 77-year-old male with history of COPD, CHF, A. fib, diabetes, presents to emergency department from [facility] for evaluation of worsening shortness of breath over the last 3 days. Patient is unable to give me a detailed history except for that he cannot breathe and he has buttock pain. Patient has been given Solu-Medrol 125 mg and 2 albuterol treatments in route by paramedics. He is on a nonrebreather. He is tachypneic and tachycardic. Patient denies being recently ill. However once family arrived at bedside they inform me that he had recently been hospitalized at [facility] for pneumonia with MRSA positive sputum. He has been on an unknown antibiotic per the family and steroids for the last 3 days. Patient states he is tired. No other symptoms to report at this time. PFSH Past Medical History Atrial Fibrillation: Yes Anxiety: Yes Depression: No Cancer: No Cardiovascular Problems: Yes (CHF HTN ) Congestive Heart Failure: Yes COPD: Yes Diabetes: Yes Diminished Hearing: No Endocrine: Yes GERD: Yes Genitourinary: No Hypertension: Yes Musculoskeletal: No Neurologic: No Psychiatric: Yes Reproductive: No Respiratory: Yes (COPD) Immunizations Current: Yes Past Surgical History Abdominal Surgery: No Cardiac Surgery: Yes (ABLATION 2002) Genitourinary Surgery: No Thoracic Surgery: No Social History Alcohol Use: No Tobacco Use: Yes Substance Use: No Allergies-Medications (Allergen,Severity, Reaction): Coded Allergies: aspirin (Unverified Allergy, Severe, 11/14/17) codeine (Verified Allergy, Severe, 11/14/17) Reported Meds & Prescriptions Reported Meds & Active Scripts Active Prednisone 10 Mg Tab 10 Mg PO DIRECTED 30 Days 30mg po bid x 3 days, 20mg po bid x 4 days then 20mg po daily Novolog Inj (Insulin Aspart) 100 Unit/Ml Inj 1-12 Units SQ ACHS SLIDING SCALE 30 Days Linezolid 600 Mg Tab 600 Mg PO Q12H 7 Days Reported Lopressor (Metoprolol Tartrate) 50 Mg Tab 50 Mg PO BID Duoneb (Ipratropium-Albuterol Neb) 0.5-2.5 Mg/3 Ml Neb 3 Ml NEB TID Tylenol (Acetaminophen) 325 Mg Tab 650 Mg PO Q4H PRN Combivent Respimat Inh (Ipratropium-Albuterol Inh) 20-100 Long-Term/Act Aero 1 Puff INH QID Thera-M (Multiple Vitamins W/ Minerals) 1 Tab 1 Tab PO DAILY Diltiazem (Diltiazem HCl) 60 Mg Tab 60 Mg PO QID Potassium Chloride ER (Potassium Chloride) 10 Meq Cap 10 Meq PO BID Bumetanide 2 Mg Tab 2 Mg PO BID Eliquis (Apixaban) 5 Mg Tab 5 Mg PO BID Lactulose Liq (Lactulose) 10 Gm/15 Ml Soln 15 Ml PO BID PRN Colace (Docusate Sodium) 100 Mg Capsule 100 Mg PO BID Lantus Inj (Insulin Glargine) 1,000 Unit/10 Ml Vial 60 Units SQ HS Asmanex 120 Act Twisthaler (Mometasone 120 Act Inh) 220 Mcg/Act Inh 1 Puff INH HS Gabapentin 300 Mg Cap 300 Mg PO HS Atorvastatin (Atorvastatin Calcium) 80 Mg Tab 80 Mg PO HS Miralax Powder (Polyethylene Glycol 3350 Powder) 17 Gm Powd 17 Gm PO DAILY Mix and dissolve one measuring capful (17 grams) in water or juice. Stiolto Respimat Inh (Tiotropium-Olodaterol Inh) 2.5-2.5 Mcg/Act Aero 2 Puff INH DAILY Digoxin 0.125 Mg Tab 0.125 Mg PO DAILY Alfuzosin ER 24 HR 10 Mg Tab 10 Mg PO DAILY Omeprazole 20 Mg Tab 20 Mg PO DAILY Review of Systems Except as stated in HPI: all other systems reviewed are Neg Physical Exam Narrative GENERAL: Well-nourished male patient, sitting up in bed, in moderate respiratory distress. SKIN: Focused skin assessment warm/dry. HEAD: Atraumatic. Normocephalic. EYES: Pupils equal and round. No scleral icterus. No injection or drainage. ENT: No nasal bleeding or discharge. Mucous membranes pink and moist. NECK: Trachea midline. No JVD. CARDIOVASCULAR: Tachycardic rate and irregular rhythm RESPIRATORY: Tachypneic, diminished, shallow respirations. GASTROINTESTINAL: Abdomen soft, non-tender, nondistended. Hepatic and splenic margins not palpable. MUSCULOSKELETAL: No obvious deformities. No clubbing. No cyanosis. No edema. NEUROLOGICAL: Awake and alert. No obvious cranial nerve deficits. Motor grossly within normal limits. Normal speech. PSYCHIATRIC: Appropriate mood and affect; insight and judgment normal. Data Data Last Documented VS Vital Signs Date Time Temp Pulse Resp B/P (MAP) Pulse Ox O2 Delivery O2 Flow Rate FiO2 11/14/17 14:55 74 19 121/73 (89) 100 BiPAP 100 11/14/17 12:49 10.00 11/14/17 12:43 98.9 Orders Orders Complete Blood Count With Diff (11/14/17 12:41) Comprehensive Metabolic Panel (11/14/17 12:41) Act Partial Throm Time (Ptt) (11/14/17 12:41) Prothrombin Time / Inr (Pt) (11/14/17 12:41) Ckmb (Isoenzyme) Profile (11/14/17 12:41) Troponin I (11/14/17 12:41) Arterial Blood Gas (Abg) (11/14/17 12:41) Urinalysis - C+S If Indicated (11/14/17 12:41) Iv Access Insert/Monitor (11/14/17 12:41) Electrocardiogram (11/14/17 12:41) Ecg Monitoring (11/14/17 12:41) Oximetry (11/14/17 12:41) Oxygen Administration (11/14/17 12:41) Chest, Single Ap (11/14/17 12:41) Sodium Chloride 0.9% Flush (Ns Flush) (11/14/17 12:45) Ceftriaxone Inj (Rocephin Inj) (11/14/17 13:30) Azithromycin Inj (Zithromax Inj) (11/14/17 13:30) Lactic Acid Sepsis Protocol (11/14/17 13:30) Blood Culture (11/14/17 13:30) Cefepime Inj (Maxipime Inj) (11/14/17 13:49) Azithromycin Inj (Zithromax Inj) (11/14/17 13:49) Labs Laboratory Tests Test 11/14/17 12:41 11/14/17 12:53 11/14/17 13:40 Blood Gas Puncture Site RT RADIAL Blood Gas Patient Temperature 98.6 Blood Gas HCO3 43 mmol/L Blood Gas Base Excess 16.5 mmol/L Blood Gas Oxygen Saturation 87 % Arterial Blood pH 7.33 Arterial Blood Partial Pressure CO2 83 mmHg Arterial Blood Partial Pressure O2 55 mmHG Arterial Blood Oxygen Content 13.7 Vol % Arterial Blood Carboxyhemoglobin 1.7 % Arterial Blood Methemoglobin 0.4 % Blood Gas Hemoglobin 11.3 G/DL Oxygen Delivery Device Non-Rebreathing Mask Blood Gas Liter Flow 15 L/M Blood Gas Inspired Oxygen 100 % White Blood Count 18.9 TH/MM3 Red Blood Count 4.25 MIL/MM3 Hemoglobin 11.2 GM/DL Hematocrit 35.5 % Mean Corpuscular Volume 83.5 FL Mean Corpuscular Hemoglobin 26.3 PG Mean Corpuscular Hemoglobin Concent 31.5 % Red Cell Distribution Width 16.6 % Platelet Count 165 TH/MM3 Mean Platelet Volume 7.9 FL Neutrophils (%) (Auto) 86.3 % Lymphocytes (%) (Auto) 7.1 % Monocytes (%) (Auto) 5.6 % Eosinophils (%) (Auto) 0.3 % Basophils (%) (Auto) 0.7 % Neutrophils # (Auto) 16.3 TH/MM3 Lymphocytes # (Auto) 1.3 TH/MM3 Monocytes # (Auto) 1.1 TH/MM3 Eosinophils # (Auto) 0.1 TH/MM3 Basophils # (Auto) 0.1 TH/MM3 CBC Comment DIFF FINAL Differential Comment Prothrombin Time 11.1 SEC Prothromb Time International Ratio 1.1 RATIO Activated Partial Thromboplast Time 23.4 SEC Blood Urea Nitrogen 29 MG/DL Creatinine 1.14 MG/DL Random Glucose 108 MG/DL Total Protein 6.6 GM/DL Albumin 3.2 GM/DL Calcium Level 8.0 MG/DL Alkaline Phosphatase 53 U/L Aspartate Amino Transf (AST/SGOT) 22 U/L Alanine Aminotransferase (ALT/SGPT) 27 U/L Total Bilirubin 0.4 MG/DL Sodium Level 140 MEQ/L Potassium Level 4.6 MEQ/L Chloride Level 92 MEQ/L Carbon Dioxide Level 43.6 MEQ/L Anion Gap 4 MEQ/L Estimat Glomerular Filtration Rate 62 ML/MIN Total Creatine Kinase 64 U/L Troponin I 0.10 NG/ML Lactic Acid Level 1.4 mmol/L MDM Medical Decision Making Medical Screen Exam Complete: Yes Emergency Medical Condition: Yes Medical Record Reviewed: Yes Differential Diagnosis COPD exacerbation versus CHF versus pneumonia versus influenza versus PE Narrative Course 77-year-old male presents emergency department for evaluation worsening shortness of breath over the last 3 days. Patient presents tachypneic and tachycardic. He is with shallow respirations and diminished breath sounds throughout. Patient is placed on BiPAP. IV access and lab work is obtained. Upon reassessment, patient appears much more comfortable, his heart rate has normalized and his respiration rate has slowed being on BiPAP. Laboratory Tests Test 11/14/17 12:41 11/14/17 12:53 11/14/17 13:40 Blood Gas Puncture Site RT RADIAL Blood Gas Patient Temperature 98.6 Blood Gas HCO3 43 mmol/L Blood Gas Base Excess 16.5 mmol/L Blood Gas Oxygen Saturation 87 % Arterial Blood pH 7.33 Arterial Blood Partial Pressure CO2 83 mmHg Arterial Blood Partial Pressure O2 55 mmHG Arterial Blood Oxygen Content 13.7 Vol % Arterial Blood Carboxyhemoglobin 1.7 % Arterial Blood Methemoglobin 0.4 % Blood Gas Hemoglobin 11.3 G/DL Oxygen Delivery Device Non-Rebreathing Mask Blood Gas Liter Flow 15 L/M Blood Gas Inspired Oxygen 100 % White Blood Count 18.9 TH/MM3 Red Blood Count 4.25 MIL/MM3 Hemoglobin 11.2 GM/DL Hematocrit 35.5 % Mean Corpuscular Volume 83.5 FL Mean Corpuscular Hemoglobin 26.3 PG Mean Corpuscular Hemoglobin Concent 31.5 % Red Cell Distribution Width 16.6 % Platelet Count 165 TH/MM3 Mean Platelet Volume 7.9 FL Neutrophils (%) (Auto) 86.3 % Lymphocytes (%) (Auto) 7.1 % Monocytes (%) (Auto) 5.6 % Eosinophils (%) (Auto) 0.3 % Basophils (%) (Auto) 0.7 % Neutrophils # (Auto) 16.3 TH/MM3 Lymphocytes # (Auto) 1.3 TH/MM3 Monocytes # (Auto) 1.1 TH/MM3 Eosinophils # (Auto) 0.1 TH/MM3 Basophils # (Auto) 0.1 TH/MM3 CBC Comment DIFF FINAL Differential Comment Prothrombin Time 11.1 SEC Prothromb Time International Ratio 1.1 RATIO Activated Partial Thromboplast Time 23.4 SEC Blood Urea Nitrogen 29 MG/DL Creatinine 1.14 MG/DL Random Glucose 108 MG/DL Total Protein 6.6 GM/DL Albumin 3.2 GM/DL Calcium Level 8.0 MG/DL Alkaline Phosphatase 53 U/L Aspartate Amino Transf (AST/SGOT) 22 U/L Alanine Aminotransferase (ALT/SGPT) 27 U/L Total Bilirubin 0.4 MG/DL Sodium Level 140 MEQ/L Potassium Level 4.6 MEQ/L Chloride Level 92 MEQ/L Carbon Dioxide Level 43.6 MEQ/L Anion Gap 4 MEQ/L Estimat Glomerular Filtration Rate 62 ML/MIN Total Creatine Kinase 64 U/L Troponin I 0.10 NG/ML Lactic Acid Level 1.4 mmol/L Chest x-ray shows resolving atelectasis versus consolidation in the left lower lobe. Patient's white count is 18.9 with a neutrophilia of 16.3. This could be secondary to steroid use however patient does present tachycardic, tachypnea, and with a likely source . He does meet sepsis criteria. Blood cultures and lactic acid are ordered. He will be given cefepime and azithromycin IV. Fluid resuscitation will have to be done potentially as the patient does have history of CHF. I discussed the patient my attending physician. Patient will need to be admitted to the ICU. A call has been placed to [facility] physician for admission. Sepsis Criteria SIRS Criteria (2 or more): Heart rate over 90, RR > 20 or PaCO2 < 32, WBC > 41705, < 4000 or > 10% bands Sepsis Criteria (SIRS+source): Infect source susp/known Diagnosis Primary Impression: Respiratory distress Additional Impressions: Lung consolidation Leukocytosis Qualified Codes: D72.829 - Elevated white blood cell count, unspecified COPD (chronic obstructive pulmonary disease) Qualified Codes: J44.9 - Chronic obstructive pulmonary disease, unspecified Admitting Information Admitting Physician Requests: Admit Condition: Stable PalmaAlexus kramer ELDER Nov 14, 2017 12:51
--- NOTE | 2017-11-14 13:17 | RADRPT ---
EXAM DATE/TIME: 11/14/2017 12:51 [facility] COMPARISON: CHEST SINGLE AP, November 06, 2017, 2:17. INDICATIONS : Short of breath. MEDICAL HISTORY : None. SURGICAL HISTORY : None. ENCOUNTER: Initial ACUITY: 1 day PAIN SCORE: 7/10 LOCATION: Bilateral chest FINDINGS: A single view of the chest demonstrates the lungs to be symmetrically aerated without evidence of mas s, infiltrate or effusion. The cardiomediastinal contours are unremarkable. Osseous structures are intact. CONCLUSION: No acute disease. Resolved atelectasis versus airspace consolidation involving the left lower lobe. Jocelyn Aguila MD on November 14, 2017 at 13:13 Board Certified Radiologist. This report was verified electronically.
[2017-11-14 13:19] LABS: AUTOMATED NEUTROPHIL # 16.3 TH/MM3 (1.8-7.7); BASOPHIL # 0.1 TH/MM3 (0-0.2); BASOPHIL % 0.7 % (0.0-2.0); EOSINOPHIL # 0.1 TH/MM3 (0-0.4); EOSINOPHIL % 0.3 % (0.0-4.0); HEMATOCRIT 35.5 % (39.0-51.0); HEMOGLOBIN 11.2 GM/DL (13.0-17.0); LYMPH % 7.1 % (9.0-44.0); LYMPHOCYTE # 1.3 TH/MM3 (1.0-4.8); MEAN CELL VOLUME 83.5 FL (80.0-100.0); MEAN CORPUSCULAR HEMOGLOBIN 26.3 PG (27.0-34.0); MEAN CORPUSCULAR HGB CONC 31.5 % (32.0-36.0); MEAN PLATELET VOLUME 7.9 FL (7.0-11.0); MONO % 5.6 % (0.0-8.0); MONOCYTE # 1.1 TH/MM3 (0-0.9); NEUT % 86.3 % (16.0-70.0); PLATELET COUNT 165 TH/MM3 (150-450); RED BLOOD COUNT 4.25 MIL/MM3 (4.50-5.90); RED CELL DISTRIBUTION WIDTH 16.6 % (11.6-17.2); WHITE BLOOD COUNT 18.9 TH/MM3 (4.0-11.0)
[2017-11-14] MEDS ORDERED: THERTAB17 PO (13:23)
[2017-11-14] MEDS ORDERED: IPRAAER INH (13:23)
[2017-11-14] MEDS ORDERED: IPRASOL NEB (13:23)
[2017-11-14] MEDS ORDERED: TYLE325T PO (13:23)
[2017-11-14] MEDS ORDERED: METO-309 PO (13:23)
[2017-11-14 13:26] LABS: INTERNATIONAL NORMALIZED RATIO 1.1 RATIO; PROTHROMBIN TIME - PATIENT 11.1 SEC (9.8-11.6)
[2017-11-14] MEDS ORDERED: AZITHROMYCIN INJ 500 MG in SODIUM CHLOR 0.9% 250 ML INJ 250 ML IV ONE (13:30)
[2017-11-14] MEDS ORDERED: cefTRIAXone INJ 1,000 MG in SODIUM CHLORIDE 0.9% INJ 100 ML IV ONE (13:30)
[2017-11-14] MEDS ORDERED: CEFEPIME INJ 2,000 MG in SODIUM CHLORIDE 0.9% INJ 100 ML IV STA (13:49)
[2017-11-14] MEDS ORDERED: AZITHROMYCIN INJ 500 MG in SODIUM CHLOR 0.9% 250 ML INJ 250 ML IV STA (13:49)
[2017-11-14 13:53] LABS: ALBUMIN 3.2 GM/DL (3.4-5.0); ALKALINE PHOSPHATASE 53 U/L (45-117); ALT (GPT) 27 U/L (12-78); AST (GOT) 22 U/L (15-37); BICARBONATE 43.6 MEQ/L (21.0-32.0); BLOOD UREA NITROGEN 29 MG/DL (7-18); CHLORIDE 92 MEQ/L (98-107); CREATININE 1.14 MG/DL (0.60-1.30); GLOMERULAR FILTRATION RATE 62 ML/MIN (>89); GLUCOSE,RANDOM 108 MG/DL (74-106); SODIUM (NA) 140 MEQ/L (136-145); TOTAL BILIRUBIN ADULT 0.4 MG/DL (0.2-1.0); TOTAL PROTEIN 6.6 GM/DL (6.4-8.2)
[2017-11-14] MEDS ORDERED: SODIUM CHLOR 0.9% 1000 ML INJ 1,000 ML IV SCH (15:31)
[2017-11-14] MEDS ORDERED: MAGNESIUM SULFATE INJ 4 GM in SODIUM CHLORIDE 0.9% INJ 92 ML IV PRN (15:45)
[2017-11-14] MEDS ORDERED: MAGNESIUM HYDROXIDE SUSP 30 ML CUP PO PRN (15:45)
[2017-11-14] MEDS ORDERED: GLUCAGON 1 MG/ML VIAL OTHER PRN (15:45)
[2017-11-14] MEDS ORDERED: Vancomycin Consult Pharmacy 1 EA OTHER SCH (15:45)
[2017-11-14] MEDS ORDERED: ONDANSETRON HCL 4 MG/2 ML VIAL IV PUSH PRN (15:45)
[2017-11-14] MEDS ORDERED: DEXTROSE 50% IN WATER 50 ML VIAL(D50) IV PUSH PRN (15:45)
[2017-11-14] MEDS ORDERED: SODIUM PHOSPHATE INJ 30 MMOL in SODIUM CHLOR 0.9% 250 ML INJ 240 ML IV PRN (15:45)
[2017-11-14] MEDS ORDERED: MAGNESIUM OXIDE 400 MG TAB PO PRN (15:45)
[2017-11-14] MEDS ORDERED: POTASSIUM PHOSPHATE INJ 30 MMOL in SODIUM CHLOR 0.9% 250 ML INJ 250 ML IV PRN (15:45)
[2017-11-14] MEDS ORDERED: MAGNESIUM SULFATE INJ 2 GM in SODIUM CHLORIDE 0.9% INJ 96 ML IV PRN (15:45)
[2017-11-14] MEDS ORDERED: POTASSIUM CHLORIDE 25 MEQ EFFERVESCENT TAB PO PRN (15:45)
[2017-11-14] MEDS ORDERED: POTASSIUM CHLOR 20 MEQ PREMIX 100 ML IV PRN ×2 (15:45)
[2017-11-14] MEDS ORDERED: CHLORHEXIDINE GLUCONATE 2 % 1 PACK (2 CLOTHS) TOP PRN (15:45)
[2017-11-14] MEDS ORDERED: LACTULOSE SYRUP 20 GM/30 ML CUP PO PRN (15:45)
[2017-11-14] MEDS ORDERED: POTASSIUM PHOSPHATE MONOBASIC 500 MG TAB PO/TUBE PRN (15:45)
[2017-11-14] MEDS ORDERED: SENNOSIDES 8.6 MG TAB PO PRN (15:45)
[2017-11-14] MEDS ORDERED: NURSING INFORMATION XX SCH (15:45)
[2017-11-14] MEDS ORDERED: BISACODYL 10 MG SUPP RECTAL PRN (15:45)
[2017-11-14] MEDS ORDERED: POTASSIUM CHLOR 40 MEQ PREMIX 100 ML IV PRN ×2 (15:45)
[2017-11-14] MEDS ORDERED: POTASSIUM PHOSPHATE MONOBASIC 500 MG TAB PO PRN (15:45)
[2017-11-14] MEDS: RESP: ALBUTEROL 2.5 MG/IPRATROPIUM 0.5 MG NEB (SCH) INH ×2 (16:00→21:15)
[2017-11-14] MEDS: methylPREDNISolone SOD SUCC 40 MG/1 ML VIAL IV PUSH SCH (16:33)
[2017-11-14] MEDS: HEPARIN SODIUM - SQ 10,000 UNITS/ML VIAL SQ SCH (16:33)
[2017-11-14] MEDS ORDERED: INSULIN ASPART SUPPLEMENTAL SCALE SQ SCH (17:00)
--- NOTE | 2017-11-14 17:32 | HHI.HP ---
[facility] Service Critical Care Medicine Primary Care Physician Brijesh Hernandez Jr, MD Admission Diagnosis RESPIRATORY DISTRESS; COPD; SEPSIS; PNA Diagnosis: Travel History International Travel<30 Days: No Contact w/Intl Traveler <30 Da: No Traveled to Known Affected Are: No History of Present Illness This is a 77-year-old male with a medical history significant for COPD, CHF, A. fib, diabetes, that presented to emergency department from [facility] for evaluation of worsening shortness of breath over the last 3 days. The patient was been given Solu-Medrol 125 mg and 2 albuterol treatments enroute to ED. Upon presentation to the ED the patient was on a nonrebreather. He was tachypneic and tachycardic. Patient's medical history significant for MRSA pneumonia previously admitted on 10/27/16 for approximately 12 days at [facility]. The patient is normally on 2.5 L/m nasal cannula O2 home dependency, and he lives with ( normally) a PCO2 in the 80s according to his . Patient was then discharged to [facility], and then transferred to [facility] for rehabilitation. He has been on an unknown antibiotic per the family and steroids for the last 3 days. Laboratory and imaging studies were performed with noted elevation in CO2 The patient was given empiric antibiotics in the ED and placed on BiPAP. Critical care medicine was consulted. History PFSH Past Medical History Atrial Fibrillation: Yes Anxiety: Yes Depression: No Cancer: No Cardiovascular Problems: Yes (CHF HTN ) Congestive Heart Failure: Yes COPD: Yes Diabetes: Yes Diminished Hearing: No Endocrine: Yes GERD: Yes Genitourinary: No Hypertension: Yes Musculoskeletal: No Neurologic: No Psychiatric: Yes Reproductive: No Respiratory: Yes (COPD) Immunizations Current: Yes Past Surgical History Abdominal Surgery: No Cardiac Surgery: Yes (ABLATION 2002) Genitourinary Surgery: No Thoracic Surgery: No Social History Alcohol Use: No Tobacco Use: Yes Substance Use: No Allergies-Medications Allergies-Medications (Allergen,Severity, Reaction): Coded Allergies: aspirin (Unverified Allergy, Severe, 11/14/17) codeine (Verified Allergy, Severe, 11/14/17) Reported Meds & Prescriptions Reported Meds & Active Scripts Active Prednisone 10 Mg Tab 10 Mg PO DIRECTED 30 Days 30mg po bid x 3 days, 20mg po bid x 4 days then 20mg po daily Novolog Inj (Insulin Aspart) 100 Unit/Ml Inj 1-12 Units SQ ACHS SLIDING SCALE 30 Days Linezolid 600 Mg Tab 600 Mg PO Q12H 7 Days Reported Lopressor (Metoprolol Tartrate) 50 Mg Tab 50 Mg PO BID Duoneb (Ipratropium-Albuterol Neb) 0.5-2.5 Mg/3 Ml Neb 3 Ml NEB TID Tylenol (Acetaminophen) 325 Mg Tab 650 Mg PO Q4H PRN Combivent Respimat Inh (Ipratropium-Albuterol Inh) 20-100 Shelter/Act Aero 1 Puff INH QID Thera-M (Multiple Vitamins W/ Minerals) 1 Tab 1 Tab PO DAILY Diltiazem (Diltiazem HCl) 60 Mg Tab 60 Mg PO QID Potassium Chloride ER (Potassium Chloride) 10 Meq Cap 10 Meq PO BID Bumetanide 2 Mg Tab 2 Mg PO BID Eliquis (Apixaban) 5 Mg Tab 5 Mg PO BID Lactulose Liq (Lactulose) 10 Gm/15 Ml Soln 15 Ml PO BID PRN Colace (Docusate Sodium) 100 Mg Capsule 100 Mg PO BID Lantus Inj (Insulin Glargine) 1,000 Unit/10 Ml Vial 60 Units SQ HS Asmanex 120 Act Twisthaler (Mometasone 120 Act Inh) 220 Mcg/Act Inh 1 Puff INH HS Gabapentin 300 Mg Cap 300 Mg PO HS Atorvastatin (Atorvastatin Calcium) 80 Mg Tab 80 Mg PO HS Miralax Powder (Polyethylene Glycol 3350 Powder) 17 Gm Powd 17 Gm PO DAILY Mix and dissolve one measuring capful (17 grams) in water or juice. Stiolto Respimat Inh (Tiotropium-Olodaterol Inh) 2.5-2.5 Mcg/Act Aero 2 Puff INH DAILY Digoxin 0.125 Mg Tab 0.125 Mg PO DAILY Alfuzosin ER 24 HR 10 Mg Tab 10 Mg PO DAILY Omeprazole 20 Mg Tab 20 Mg PO DAILY ROS Review of Systems Except as stated in HPI: all other systems reviewed are Neg Physical Exam Vital Signs Vital Signs Date Time Temp Pulse Resp B/P (MAP) Pulse Ox O2 Delivery O2 Flow Rate FiO2 11/14/17 14:55 74 19 121/73 (89) 100 BiPAP 100 11/14/17 13:00 98 100 11/14/17 12:49 98 Non-Rebreather 10.00 11/14/17 12:43 98.9 117 31 136/71 (92) 84 Physical Exam BiPAP 15/1.0 GENERAL: This is a well-developed well-nourished overweight male, early on BiPAP SKIN: Warm and dry. HEAD: Atraumatic. Normocephalic. EYES: Pupils equal and round. No scleral icterus. No injection or drainage. ENT: No nasal bleeding or discharge. Mucous membranes pink and moist. NECK: Trachea midline. No JVD. CARDIOVASCULAR: Normal rate, regular rhythm. Telemetry sinus rhythm RESPIRATORY: No accessory muscle use. Clear to auscultation. Breath sounds equal bilaterally. GASTROINTESTINAL: Abdomen soft, non-tender, obese, nondistended. No guarding. MUSCULOSKELETAL: Extremities without clubbing, cyanosis, or edema. No obvious deformities. Bilaterally lower extremity venous stasis noted. Ecchymotic bruising noted bilateral upper extremities NEUROLOGICAL: Awake and alert. RASS 0. No gross focal/sensory deficits. Follows commands in all 4 extremities. Laboratory Laboratory Tests Test 11/14/17 12:41 11/14/17 12:53 11/14/17 13:40 11/14/17 15:45 Blood Gas Puncture Site RT RADIAL LT RADIAL Blood Gas Patient Temperature 98.6 98.6 Blood Gas HCO3 43 43 Blood Gas Base Excess 16.5 16.1 Blood Gas Oxygen Saturation 87 98 Arterial Blood pH 7.33 7.28 Arterial Blood Partial Pressure CO2 83 95 Arterial Blood Partial Pressure O2 55 339 Arterial Blood Oxygen Content 13.7 15.5 Arterial Blood Carboxyhemoglobin 1.7 1.3 Arterial Blood Methemoglobin 0.4 0.5 Blood Gas Hemoglobin 11.3 10.6 Oxygen Delivery Device Non-Rebreathing Mask BiPAP Blood Gas Liter Flow 15 Blood Gas Inspired Oxygen 100 100 White Blood Count 18.9 Red Blood Count 4.25 Hemoglobin 11.2 Hematocrit 35.5 Mean Corpuscular Volume 83.5 Mean Corpuscular Hemoglobin 26.3 Mean Corpuscular Hemoglobin Concent 31.5 Red Cell Distribution Width 16.6 Platelet Count 165 Mean Platelet Volume 7.9 Neutrophils (%) (Auto) 86.3 Lymphocytes (%) (Auto) 7.1 Monocytes (%) (Auto) 5.6 Eosinophils (%) (Auto) 0.3 Basophils (%) (Auto) 0.7 Neutrophils # (Auto) 16.3 Lymphocytes # (Auto) 1.3 Monocytes # (Auto) 1.1 Eosinophils # (Auto) 0.1 Basophils # (Auto) 0.1 CBC Comment DIFF FINAL Differential Comment Prothrombin Time 11.1 Prothromb Time International Ratio 1.1 Activated Partial Thromboplast Time 23.4 Blood Urea Nitrogen 29 Creatinine 1.14 Random Glucose 108 Total Protein 6.6 Albumin 3.2 Calcium Level 8.0 Alkaline Phosphatase 53 Aspartate Amino Transf (AST/SGOT) 22 Alanine Aminotransferase (ALT/SGPT) 27 Total Bilirubin 0.4 Sodium Level 140 Potassium Level 4.6 Chloride Level 92 Carbon Dioxide Level 43.6 Anion Gap 4 Estimat Glomerular Filtration Rate 62 Total Creatine Kinase 64 Troponin I 0.10 Lactic Acid Level 1.4 Blood Gas Ventilator Setting Date/Time Source Procedure Growth Status 11/14/17 13:45 Blood Peripheral Aerobic Blood Culture Pending Received 11/14/17 13:45 Blood Peripheral Anaerobic Blood Culture Pending Received Result Diagram: 11/14/17 1253 11/14/17 1253 Imaging Last Impressions Chest X-Ray 11/14/17 1241 Signed Impressions: Service Date/Time: Tuesday, November 14, 2017 12:51 - CONCLUSION: No acute disease. Resolved atelectasis versus airspace consolidation involving the left lower lobe. Jocelyn Aguila MD Septic Shock Reassessment Septic shock perfusion: reassessment completed Caprini VTE Risk Assessment Caprini VTE Risk Assessment: Mod/High Risk (score >= 2) Caprini Risk Assessment Model Point Value = 1 Point Value = 2 Point Value = 3 Point Value = 5 Age 41-60 Minor surgery BMI > 25 kg/m2 Swollen legs Varicose veins or History of unexplained or recurrent spontaneous Oral contraceptives or hormone replacement Sepsis (< 1 month) Serious lung disease, including pneumonia (< 1 month) Abnormal pulmonary function Acute myocardial infarction Congestive heart failure (< 1 month) History of inflammatory bowel disease Medical patient at bed rest Age 61-74 Arthroscopic surgery Major open surgery (> 45 min) Laparoscopic surgery (> 45 min) Malignancy Confined to bed (> 72 hours) Immobilizing plaster cast Central venous access Age >= 75 History of VTE Family history of VTE Factor V Leiden Prothrombin [id number] Lupus anticoagulant Anticardiolipin antibodies Elevated serum homocysteine Heparin-induced thrombocytopenia Other congenital or acquired thrombophilia Stroke (< 1 month) Elective arthroplasty Hip, pelvis, or leg fracture Acute spinal cord injury (< 1 month) Prophylaxis Regimen Total Risk Factor Score Risk Level Prophylaxis Regimen 0-1 Low Early ambulation 2 Moderate Order ONE of the following: *Sequential Compression Device (SCD) *Heparin 5000 units SQ BID 3-4 Higher Order ONE of the following medications: *Heparin 5000 units SQ TID *Enoxaparin/Lovenox 40 mg SQ daily (WT < 150 kg, CrCl > 30 mL/min) *Enoxaparin/Lovenox 30 mg SQ daily (WT < 150 kg, CrCl > 10-29 mL/min) *Enoxaparin/Lovenox 30 mg SQ BID (WT < 150 kg, CrCl > 30 mL/min) AND/OR *Sequential Compression Device (SCD) 5 or more Highest Order ONE of the following medications: *Heparin 5000 units SQ TID (Preferred with Epidurals) *Enoxaparin/Lovenox 40 mg SQ daily (WT < 150 kg, CrCl > 30 mL/min) *Enoxaparin/Lovenox 30 mg SQ daily (WT < 150 kg, CrCl > 10-29 mL/min) *Enoxaparin/Lovenox 30 mg SQ BID (WT < 150 kg, CrCl > 30 mL/min) AND *Sequential Compression Device (SCD) Assessment and Plan Problem List: (1) A-fib ICD Code: I48.91 - Unspecified atrial fibrillation (2) CHF (congestive heart failure) ICD Code: I50.9 - Heart failure, unspecified Status: Chronic (3) HTN (hypertension) ICD Code: I10 - Essential (primary) hypertension Status: Chronic (4) ADRIAN (obstructive sleep apnea) ICD Code: G47.33 - Obstructive sleep apnea (adult) (pediatric) Status: Chronic (5) MRSA pneumonia ICD Code: J15.212 - Pneumonia due to Methicillin resistant Staphylococcus aureus Status: Acute (6) Diabetes mellitus type 2, insulin dependent ICD Code: E11.9 - Type 2 diabetes mellitus without complications; Z79.4 - nursing home (current) use of insulin Status: Chronic (7) COPD (chronic obstructive pulmonary disease) ICD Code: J44.9 - Chronic obstructive pulmonary disease, unspecified Status: Acute (8) Respiratory distress ICD Code: R06.03 - Acute respiratory distress Status: Acute (9) Leukocytosis ICD Code: D72.829 - Elevated white blood cell count, unspecified Status: Acute (10) Lung consolidation ICD Code: J18.1 - Lobar pneumonia, unspecified organism Status: Acute (11) Anxiety ICD Code: F41.9 - Anxiety disorder, unspecified Status: Chronic Assessment and Plan Assessment This is a 77-year-old male with chronic history of COPD and recent history of MRSA positive pneumonia. The patient's medical history is also significant for multiple comorbidities to include A. fib, history of CHF, and COPD. Patient is at risk for intubation admit to ICU. Plan by systems: Neurologic: Anxiety disorder Tylenol for pain and fever. 100.5 Avoid long-acting sedatives at this time Hold gabapentin 300mmg q HS home med Respiratory: COPD exacerbation Pneumonia-MRSA Obstructive sleep apnea Home O2 dependency Maintain BiPAP currently at 15/5, decrease FiO2 to.50 ABG on BiPAP-7.//339/43/16 Repeat YAG-lijfek-ml results 11/14 Chest x-izc-jugunvan atelectasis versus airspace disease left lower lobe Chest x-ray and ABGs when clinically indicated Patient was on a prednisone large taper, held, methylprednisolone 40 mg every 12 hours Maintain BiPAP Cardiovascular: A. fib History of CHF CAD Continue home medications Eliquis 5 mg twice a day, atorvastatin 80 daily at bedtime, metoprolol 50 mg twice a day, Cardizem 60 mg 4 times a day digoxin 0.25 /daily Patient's band saw filer is Dr. Parker Obtain EKG Obtain BNP and trend Renal: No Haynes at this time quite -- Strict I/Os FEN/GI: Electrolyte derangement GERD Maintain NPO status for now risk for intubation Monitor BMP Continue home med Bumex 2 mg PO, BID Replete electrolytes per ICU protocol Gentle hydration NSS 42cc/hr Heme/ID: Pneumonia MRSA positive-on 10/27 Leukocytosis ID consulted Obtain blood urine and sputum cultures Monitor CBC Initiate empiric antibiotics to include cefepime, vancomycin, azithromycin (day 1) Endocrine: Glucose monitoring per ICU protocol-low dose regimen -- SSI Prophylaxis: GI Prophylaxis Famotidine BID DVT Prophylaxis -- SCDs Continue home dose Eliquis 5 mg BID Lines: PIVs 2. Central line if indicated Dispo: my billing statement This patient remains critically ill with one or more organ systems which are or may become a threat to life. I have spent in excess of 30 minutes discontinuously in the care and management of this patient. This time is exclusive of procedures, and includes, but is not limited to, evaluation of the patient, review of the medical record, discussions with family, consultants, nursing staff, or respiratory therapy, and documentation in the medical record. Code Status Full Discussed Condition With ED HEAD BAKER, Mrs Varela, patient and EDRN at bedside Problem Qualifiers (1) COPD (chronic obstructive pulmonary disease): Qualified Codes: J44.9 - Chronic obstructive pulmonary disease, unspecified (2) Leukocytosis: Qualified Codes: D72.829 - Elevated white blood cell count, unspecified Lacy Rodriguez MD Nov 14, 2017 17:32
[2017-11-14] MEDS: DILTIAZEM HCL 60 MG TAB PO SCH (18:00)
--- NOTE | 2017-11-14 18:20 | MB ---
cc: Tom Long MD DATE OF CONSULT: 11/14/2017 REQUESTING PHYSICIAN: Dr. Rodriguez REASON FOR CONSULTATION: The patient with methicillin-resistant Staphylococcus aureus pneumonia previously hospitalized less than 1 week ago, presents with recurrent pneumonia. HISTORY OF PRESENT ILLNESS: This is a 77-year-old, white male who presents to the Emergency Department with shortness of breath. The patient has a history of COPD and CHF. He usually uses CPAP at the assisted living facility. He was noted to have been developing coughing and shortness of breath over the past couple of days, and his states that he was coughing a lot yesterday and bringing up mostly phlegm and that he was restless and could not sleep. She states that he was mostly awake over the past 24 hours. This morning, he was given some Ativan at the nursing facility and he has been sleeping most of the day. Currently, he is on BiPAP. He is receiving 50%oxygen. I am unable to get any history from him and, therefore, I got information from his at bedside and the medical record. The patient was recently treated at [facility] for pneumonia due to methicillin-resistant Staphylococcus aureus. His states that he was still on the oral antibiotic for pneumonia and that he has 2 more days of the medication to complete therapy. After his discharge from [facility], he was admitted here at [facility] on 11/06 for COPD exacerbation and also an altered mental status. He was then discharged on 11/08. The patient was on Zyvox for the MRSA pneumonia. During the last hospitalization, he also had atrial fibrillation with rapid ventricular response. He is currently afebrile. White blood cell count is elevated at 18.9. Blood cultures have been obtained. Chest x-ray showed no acute disease. PAST MEDICAL HISTORY: COPD, CHF, atrial fibrillation, insulin-dependent diabetes mellitus, hypertension, hyperlipidemia, gastroesophageal reflux, gastroparesis, iron deficiency anemia, oxygen-dependent. PAST SURGICAL HISTORY: Right knee surgery, right carpal tunnel release, cardiac ablation treatment 2002. ALLERGIES: ASPIRIN, CODEINE. MEDICATIONS: 1. Cefepime. 2. Azithromycin. 3. Vancomycin. 4. Methylprednisolone. 5. Pepcid. 6. DuoNeb. SOCIAL HISTORY: The patient is . No tobacco, no alcohol, no illicit drugs. FAMILY HISTORY: Noncontributory. REVIEW OF SYSTEMS: Unable to obtain since the is currently on BiPAP machine and unable to communicate. He is also very somnolent. PHYSICAL EXAMINATION: GENERAL: This is a moderately obese male who is in no acute distress, but he is somnolent. VITAL SIGNS: Temperature 98.9, BP of 121/73, respirations 18, heart rate 74. HEENT: Head atraumatic. Extraocular movements grossly intact. Unable to fully assess extraocular movements. BiPAP is in place. NECK: No swelling or adenopathy. LUNGS: Decreased breath sounds throughout. HEART: Regular without audible murmurs. Heart sounds are distant. ABDOMEN: Bowel sounds present, but diminished; obese, soft. No tenderness appreciated. RECTAL: Not performed. EXTREMITIES: One plus edema of the lower extremities, bilateral. No clubbing or cyanosis. SKIN: No diffuse rash. NEUROLOGIC: Unable to fully assess. PSYCHIATRIC: Unable to fully assess. LABORATORY DATA: WBC 18.9, platelets 165,000, hemoglobin 11.2, neutrophils 86%. Creatinine 1.14. Estimated GFR of 62. Sodium 140. LFTs normal. IMPRESSION: 1. Probable sepsis. 2. Pneumonia. 3. Leukocytosis. 4. History of chronic obstructive pulmonary disease and a recent chronic obstructive pulmonary disease exacerbation. Source of sepsis, likely is pneumonia. RECOMMENDATIONS: 1. Continue vancomycin. 2. Continue cefepime. 3. Continue aztreonam. 4. Monitor clinical status. 5. Obtain sputum sample if feasible. Thank you for the consultation. I will follow the patient's progress along with you and make further recommendations upon followup. MD YOSELYN Patterson/MOOSE , 05:40 PM , 06:19 PM
[2017-11-14] MEDS: VANCOMYCIN INJ 1,700 MG in SODIUM CHLORID 0.9% 500 ML INJ 500 ML IV SCH (18:51)
[2017-11-14 19:35] LABS: BILIRUBIN, URINE NEG (NEG); BLOOD, URINE NEG (NEG); GLUCOSE,URINE NEG (NEG); KETONE, URINE NEG (NEG); MUCUS URINE FEW /lpf (OCC); NITRITE,URINE NEG (NEG); PH, URINE 5.5 (5.0-8.5); SQUAMOUS EPITHELIAL CELL URINE <1 /hpf (0-5); URINE COLOR YELLOW (YELLW/STRAW); URINE LEUKOCYTE ESTERASE NEG (NEG)
[2017-11-14] MEDS: FAMOTIDINE 20 MG/2 ML VIAL IV PUSH SCH (21:00)
[2017-11-14] MEDS: METOPROLOL TARTRATE 50 MG TAB PO SCH (21:00)
[2017-11-14] MEDS: APIXABAN 5 MG TABLET PO SCH (21:00)
[2017-11-14] MEDS: SODIUM CHLORIDE 0.9% FLUSH 10 ML FLUSH IV FLUSH SCH (21:00)
[2017-11-14] MEDS: POTASSIUM CHLORIDE 10 MEQ CAP PO SCH (21:00)
[2017-11-14] MEDS: ATORVASTATIN 80 MG TAB PO SCH (21:00)
[2017-11-14] MEDS: BUMETANIDE 1 MG TAB PO SCH (21:00)
[2017-11-14] MEDS ORDERED: MOMETASONE INH SCH (21:00)
[2017-11-14] MEDS: DOCUSATE SODIUM 50 MG/SENNA 8.6 MG TAB PO SCH (21:00)
[2017-11-14] MEDS: CEFEPIME INJ 2,000 MG in SODIUM CHLORIDE 0.9% INJ 100 ML IV SCH (23:00)
[2017-11-15] VITALS (19 sets, daily range): BP systolic 123–173; BP diastolic 73–92; PULSE 63–129; RESP 10–22; TEMP 96.1–98.6; O2SAT 90–99
[2017-11-15] MEDS: CHLORHEXIDINE GLUCONATE 2 % 1 PACK (2 CLOTHS) TOP SCH (04:00)
[2017-11-15] MEDS: HEPARIN SODIUM - SQ 10,000 UNITS/ML VIAL SQ SCH ×2 (04:00→16:00)
[2017-11-15] MEDS: methylPREDNISolone SOD SUCC 40 MG/1 ML VIAL IV PUSH SCH ×2 (05:00→17:48)
[2017-11-15 05:29] LABS: AUTOMATED NEUTROPHIL # 6.1 TH/MM3 (1.8-7.7); BASOPHIL % 0.1 % (0.0-2.0); HEMATOCRIT 34.2 % (39.0-51.0); HEMOGLOBIN 10.8 GM/DL (13.0-17.0); LYMPH % 9.2 % (9.0-44.0); LYMPHOCYTE # 0.6 TH/MM3 (1.0-4.8); MEAN CELL VOLUME 84.4 FL (80.0-100.0); MEAN CORPUSCULAR HEMOGLOBIN 26.6 PG (27.0-34.0); MEAN CORPUSCULAR HGB CONC 31.4 % (32.0-36.0); MEAN PLATELET VOLUME 7.9 FL (7.0-11.0); MONO % 2.3 % (0.0-8.0); MONOCYTE # 0.2 TH/MM3 (0-0.9); NEUT % 88.4 % (16.0-70.0); PLATELET COUNT 126 TH/MM3 (150-450); RED BLOOD COUNT 4.05 MIL/MM3 (4.50-5.90); RED CELL DISTRIBUTION WIDTH 16.8 % (11.6-17.2)
[2017-11-15 05:37] LABS: INTERNATIONAL NORMALIZED RATIO 1.1 RATIO; PROTHROMBIN TIME - PATIENT 10.8 SEC (9.8-11.6)
[2017-11-15 05:51] LABS: ALBUMIN 2.9 GM/DL (3.4-5.0); ALT (GPT) 24 U/L (12-78); AST (GOT) 10 U/L (15-37); BICARBONATE 41.9 MEQ/L (21.0-32.0); BLOOD UREA NITROGEN 34 MG/DL (7-18); CALCIUM 8.2 MG/DL (8.5-10.1); CHLORIDE 93 MEQ/L (98-107); CREATININE 1.03 MG/DL (0.60-1.30); GLOMERULAR FILTRATION RATE 70 ML/MIN (>89); GLUCOSE,RANDOM 129 MG/DL (74-106); MAGNESIUM 2.3 MG/DL (1.5-2.5); PHOSPHORUS 3.5 MG/DL (2.5-4.9); SODIUM (NA) 141 MEQ/L (136-145)
[2017-11-15 05:54] LABS: ALKALINE PHOSPHATASE 49 U/L (45-117); TOTAL BILIRUBIN ADULT 0.4 MG/DL (0.2-1.0)
[2017-11-15] MEDS: CEFEPIME INJ 2,000 MG in SODIUM CHLORIDE 0.9% INJ 100 ML IV SCH ×3 (06:10→20:06)
[2017-11-15] MEDS: APIXABAN 5 MG TABLET PO SCH ×2 (09:00→20:11)
[2017-11-15] MEDS: BUMETANIDE 1 MG TAB PO SCH ×2 (09:00→20:04)
[2017-11-15] MEDS: DIGOXIN 0.125 MG TAB PO SCH (09:00)
[2017-11-15] MEDS: POTASSIUM CHLORIDE 10 MEQ CAP PO SCH ×2 (09:00→20:05)
[2017-11-15] MEDS: DOCUSATE SODIUM 50 MG/SENNA 8.6 MG TAB PO SCH ×2 (09:00→20:04)
[2017-11-15] MEDS: DILTIAZEM HCL 60 MG TAB PO SCH ×4 (09:00→20:05)
[2017-11-15] MEDS: FAMOTIDINE 20 MG/2 ML VIAL IV PUSH SCH ×2 (09:00→20:06)
[2017-11-15] MEDS: METOPROLOL TARTRATE 50 MG TAB PO SCH ×2 (09:00→20:12)
[2017-11-15] MEDS: SODIUM CHLORIDE 0.9% FLUSH 10 ML FLUSH IV FLUSH SCH ×2 (09:00→20:06)
[2017-11-15] MEDS: RESP: ALBUTEROL 2.5 MG/IPRATROPIUM 0.5 MG NEB (SCH) INH ×3 (09:07→21:14)
--- NOTE | 2017-11-15 09:33 | HHI.CCPN ---
Subjective Remarks/Hospital Course This is a 77-year-old male with a medical history significant for COPD, CHF, A. fib, diabetes, that presented to emergency department from [facility] for evaluation of worsening shortness of breath over the last 3 days. The patient was been given Solu-Medrol 125 mg and 2 albuterol treatments enroute to ED. Upon presentation to the ED the patient was on a nonrebreather. He was tachypneic and tachycardic. Patient's medical history significant for MRSA pneumonia previously admitted on 10/27/16 for approximately [address] [facility]. The patient is normally on 2.5 L/m nasal cannula O2 home dependency, and he lives with ( normally) a PCO2 in the 80s according to his . Patient was then discharged to [facility], and then transferred to for rehabilitation. He has been on an unknown antibiotic per the family and steroids for the last 3 days. Laboratory and imaging studies were performed with noted elevation in CO2 The patient was given empiric antibiotics in the ED and placed on BiPAP. Critical care medicine was consulted. Subjective: 11/15: Patient maintained on BiPAP throughout the night O2 saturations 97-98% on FiO2 of 0.40. Hemodynamically stable. Attempts made to wean patient to nasal cannula this a.m. unsuccessful, patient's O2 saturation in the 70s, patient placed back on BiPAP. Chest x-ray pending WBC count significantly diminished, leukocytosis resolved. Patient extremely anxious, Precedex infusion initiated. Objective Vital Signs Date Time Temp Pulse Resp B/P (MAP) Pulse Ox O2 Delivery O2 Flow Rate FiO2 11/15/17 09:09 99 60 11/15/17 06:00 69 11/15/17 04:00 98.0 15 151/84 (106) 11/14/17 22:00 3.00 11/14/17 19:47 BiPAP Intake and Output 11/15/17 11/15/17 11/16/17 08:00 16:00 00:00 Intake Total 100 ml Output Total 300 ml Balance -200 ml Result Diagram: 11/15/17 0459 11/15/17 0459 Other Results Laboratory Tests Test 11/14/17 12:41 11/14/17 15:45 Blood Gas Puncture Site RT RADIAL LT RADIAL Blood Gas Patient Temperature 98.6 98.6 Blood Gas HCO3 43 mmol/L (22-26) 43 mmol/L (22-26) Blood Gas Base Excess 16.5 mmol/L (-2-2) 16.1 mmol/L (-2-2) Blood Gas Oxygen Saturation 87 % (90-100) 98 % (90-100) Arterial Blood pH 7.33 (7.380-7.420) 7.28 (7.380-7.420) Arterial Blood Partial Pressure CO2 83 mmHg (38-42) 95 mmHg (38-42) Arterial Blood Partial Pressure O2 55 mmHG (61-120) 339 mmHG (61-120) Arterial Blood Oxygen Content 13.7 Vol % (12.0-20.0) 15.5 Vol % (12.0-20.0) Arterial Blood Carboxyhemoglobin 1.7 % (0-4) 1.3 % (0-4) Arterial Blood Methemoglobin 0.4 % (0-2) 0.5 % (0-2) Blood Gas Hemoglobin 11.3 G/DL (12.0-16.0) 10.6 G/DL (12.0-16.0) Oxygen Delivery Device Non-Rebreathing Mask BiPAP Blood Gas Liter Flow 15 L/M Blood Gas Inspired Oxygen 100 % 100 % Blood Gas Ventilator Setting Imaging Last Impressions Chest X-Ray 11/14/17 1241 Signed Impressions: Service Date/Time: Tuesday, November 14, 2017 12:51 - CONCLUSION: No acute disease. Resolved atelectasis versus airspace consolidation involving the left lower lobe. Jocelyn Aguila MD Objective Remarks BiPAP 15//1.0 GENERAL: This is a well-developed well-nourished overweight male, early on BiPAP SKIN: Warm and dry. HEAD: Atraumatic. Normocephalic. EYES: Pupils equal and round. No scleral icterus. No injection or drainage. ENT: No nasal bleeding or discharge. Mucous membranes pink and moist. NECK: Trachea midline. No JVD. CARDIOVASCULAR: Normal rate, regular rhythm. Telemetry sinus rhythm RESPIRATORY: No accessory muscle use. Clear to auscultation. Breath sounds equal bilaterally. GASTROINTESTINAL: Abdomen soft, non-tender, obese, nondistended. No guarding. MUSCULOSKELETAL: Extremities without clubbing, cyanosis, or edema. No obvious deformities. Bilaterally lower extremity venous stasis noted. Ecchymotic bruising noted bilateral upper extremities NEUROLOGICAL: Awake and alert. RASS 0. No gross focal/sensory deficits. Follows commands in all 4 extremities. A/P Problem List: (1) A-fib ICD Code: I48.91 - Unspecified atrial fibrillation (2) CHF (congestive heart failure) ICD Code: I50.9 - Heart failure, unspecified Status: Chronic (3) HTN (hypertension) ICD Code: I10 - Essential (primary) hypertension Status: Chronic (4) ADRIAN (obstructive sleep apnea) ICD Code: G47.33 - Obstructive sleep apnea (adult) (pediatric) Status: Chronic (5) MRSA pneumonia ICD Code: J15.212 - Pneumonia due to Methicillin resistant Staphylococcus aureus Status: Acute (6) Diabetes mellitus type 2, insulin dependent ICD Code: E11.9 - Type 2 diabetes mellitus without complications; 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 Status: Chronic (7) COPD (chronic obstructive pulmonary disease) ICD Code: J44.9 - Chronic obstructive pulmonary disease, unspecified Status: Acute (8) Respiratory distress ICD Code: R06.03 - Acute respiratory distress Status: Acute (9) Leukocytosis ICD Code: D72.829 - Elevated white blood cell count, unspecified Status: Acute (10) Lung consolidation ICD Code: J18.1 - Lobar pneumonia, unspecified organism Status: Acute (11) Anxiety ICD Code: F41.9 - Anxiety disorder, unspecified Status: Chronic Assessment and Plan Assessment This is a 77-year-old male with chronic history of COPD and recent history of MRSA positive pneumonia. The patient's medical history is also significant for multiple comorbidities to include A. fib, history of CHF, and COPD. Patient is at risk for intubation admit to ICU. Plan by systems: Neurologic: Anxiety disorder Tylenol for pain and fever. 100.5 Avoid long-acting sedatives at this time Hold gabapentin 300mmg q HS home med Respiratory: COPD exacerbation Pneumonia-MRSA Obstructive sleep apnea Home O2 dependency Maintain BiPAP currently at 15/5, decrease FiO2 to.40 F/U ABG this am 11/14 Chest [id number] atelectasis versus airspace disease left lower lobe Repeat chest x-ray this a.m. Chest x-ray and ABGs when clinically indicated Patient was on a prednisone large taper, held, methylprednisolone 40 mg every 12 hours Maintain BiPAP, will attempt high flow nasal cannula Cardiovascular: A. fib History of CHF CAD Continue home medications Eliquis 5 mg twice a day, atorvastatin 80 daily at bedtime, metoprolol 50 mg twice a day, Cardizem 60 mg 4 times a day digoxin 0.25 /daily Patient's physicians and surgeons is Minor Admission EKG- Afib with RVR BNP upon admission 157->80 today Renal: No Haynes at this time quite -- Strict I/Os FEN/GI: Electrolyte derangement GERD Maintain NPO status except for medications for now risk for intubation Monitor BMP Continue home med Bumex 2 mg PO, BID Replete electrolytes per ICU protocol IVF - NSS@ 42cc/hr, discontinued 11/15 Heme/ID: Pneumonia MRSA positive-on 10/27 Leukocytosis ID consulted Obtain blood urine and sputum cultures Monitor CBC Initiate empiric antibiotics to include cefepime, vancomycin, azithromycin (day 2) Endocrine: Glucose monitoring per ICU protocol-low dose regimen -- SSI Prophylaxis: GI Prophylaxis Famotidine BID DVT Prophylaxis -- SCDs Continue home dose Eliquis 5 mg BID Lines: PIVs 2. Central line if indicated Dispo: Level 3, discussed with and AVIATION MAINTENANCE INSTRUCTOR at bedside (Joelle) Physician Lacy Rodriguez Problem Qualifiers (1) COPD (chronic obstructive pulmonary disease): Qualified Codes: J44.9 - Chronic obstructive pulmonary disease, unspecified (2) Leukocytosis: Qualified Codes: D72.829 - Elevated white blood cell count, unspecified Lacy Rodriguez MD Nov 15, 2017 09:33
[2017-11-15] MEDS: METOPROLOL TARTRATE 5 MG/5 ML VIAL IV PUSH PRN ×2 (09:52→23:56)
--- NOTE | 2017-11-15 10:14 | RADRPT ---
EXAM DATE/TIME: 11/15/2017 09:32 [facility] COMPARISON: CHEST SINGLE AP, November 14, 2017, 12:51. INDICATIONS : Evaluate for respiratory failure. MEDICAL HISTORY : None. SURGICAL HISTORY : None. ENCOUNTER: Subsequent ACUITY: 3 days PAIN SCORE: 0/10 LOCATION: Bilateral chest FINDINGS: No new focal pleural or parenchymal opacities. Cardiomediastinal contours are stable. Bony thorax is intact. CONCLUSION: 1. No acute abnormality or significant interval change. Anil Aldana MD on November 15, 2017 at 10:11 Board Certified Radiologist. This report was verified electronically.
--- NOTE | 2017-11-15 10:36 | EKG ---
Date Performed: 11/14/2017 Time Performed: 12:49:34 PTAGE: 77 years EKG: ATRIAL FIBRILLATION WITH RAPID VENTRICULAR RESPONSE NONSPECIFIC ST & T-WAVE ABNORMALITY ABN ORMAL RHYTHM ECG Compared to PREVIOUS TRACING the patient is now in atrial fibrillation with rvr PREVIOUS TRACIN06/16 DOCTOR: Charo Bernardo Interpretating Date/Time 11/15/2017 10:34:29
[2017-11-15] MEDS: VANCOMYCIN INJ 1,700 MG in SODIUM CHLORID 0.9% 500 ML INJ 500 ML IV SCH (11:59)
--- NOTE | 2017-11-15 13:03 | HHI.IDPN ---
Note Infectious Disease Note Patient is on BiPAP machine at 30% FiO2. He is more awake and alert. His reports that he is coughing up sputum occasional. No fever. White blood cell count is lower. Patient says he feels better. 77-year-old, white male who presents to the Emergency Department with shortness of breath. The patient has a history of COPD and CHF. He usually uses CPAP at the assisted living facility. He was noted to have been developing coughing and shortness of breath over the past couple of days, and his states that he was coughing a lot yesterday and bringing up mostly phlegm and that he was restless and could not sleep. She states that he was mostly awake over the For 24 hours before being brought to emergency department. Recently treated at [facility] for pneumonia due to methicillin-resistant Staphylococcus aureus. His states that he was still on the oral antibiotic for pneumonia and that he has 2 more days of the medication to complete therapy with Zyvox. PAST MEDICAL HISTORY: COPD, CHF, atrial fibrillation, insulin-dependent diabetes mellitus, hypertension, hyperlipidemia, gastroesophageal reflux, gastroparesis, iron deficiency anemia, oxygen-dependent. PAST SURGICAL HISTORY: Right knee surgery, right carpal tunnel release, cardiac ablation treatment 2002. ALLERGIES: ASPIRIN, CODEINE. MEDICATIONS: Current Medications Medications (Trade) Dose Ordered Sig/Ynai Route PRN Reason Start Time Stop Time Status Last Admin Dose Admin Sodium Chloride (NS Flush) 2 ml UNSCH PRN IVF FLUSH AFTER USING IV ACCESS 11/14/17 12:45 Sodium Chloride (NS Flush) 2 ml UNSCH PRN IV FLUSH FLUSH AFTER USING IV ACCESS 11/14/17 15:45 Sodium Chloride (NS Flush) 2 ml BID IV FLUSH 11/14/17 21:00 11/15/17 09:00 Acetaminophen (Tylenol) 650 mg Q6H PRN PO PAIN 1-10 AND/OR FEVER >101F 11/14/17 15:45 Famotidine (Pepcid Inj) 20 mg Q12HR IV PUSH 11/14/17 21:00 11/15/17 09:00 Ondansetron HCl (Zofran Inj) 4 mg Q6H PRN IV PUSH NAUSEA OR VOMITING 11/14/17 15:45 Albuterol/ Ipratropium (Duoneb Neb) 1 ampule Q6HR NEB INH 11/14/17 16:00 11/15/17 09:07 Albuterol/ Ipratropium (Duoneb Neb) 1 ampule Q2HR NEB PRN INH WHEEZING 11/14/17 15:45 Heparin Sodium (Porcine) (Heparin Inj) 5,000 units Q12H SQ 11/14/17 16:00 11/15/17 04:00 Miscellaneous Information 1 Q361D XX 11/14/17 15:45 Chlorhexidine Gluconate (Chlorhexidine 2% Cloth) 3 pack Taper DAILY@04 TOP 11/15/17 04:00 11/11/18 03:59 11/15/17 04:00 Chlorhexidine Gluconate (Chlorhexidine 2% Cloth) 3 pack UNSCH PRN TOP HYGIENIC CARE 11/14/17 15:45 Senna/Docusate Sodium (Ricarda-Colace) 1 tab BID PO 11/14/17 21:00 11/15/17 09:00 Magnesium Hydroxide (Milk Of Magnesia Liq) 30 ml Q12H PRN PO Mild constipation 11/14/17 15:45 Sennosides (Senokot) 17.2 mg Q12H PRN PO Moderate constipation 11/14/17 15:45 Bisacodyl (Dulcolax Supp) 10 mg DAILY PRN RECTAL SEVERE CONSITIPATION 11/14/17 15:45 Lactulose (Lactulose Liq) 30 ml DAILY PRN PO SEVERE CONSITIPATION 11/14/17 15:45 Cefepime HCl 2000 mg/Sodium Chloride 100 ml @ 200 mls/hr Q8H IV 11/14/17 23:00 11/15/17 06:10 Azithromycin 500 mg/Sodium Chloride 250 ml @ 250 mls/hr Q24H IV 11/15/17 14:00 Pharmacy Profile Note 0 ml @ 0 mls/hr UNSCH OTHER 11/14/17 15:45 Methylprednisolone Sodium Succinate (SoluMEDROL INJ) 40 mg Q12H IV PUSH 11/14/17 17:00 11/15/17 05:00 Dextrose (D50w (Vial) Inj) 50 ml UNSCH PRN IV PUSH HYPOGLYCEMIA-SEE COMMENTS 11/14/17 15:45 Glucagon (Glucagon Inj) 1 mg UNSCH PRN OTHER HYPOGLYCEMIA-SEE COMMENTS 11/14/17 15:45 Potassium Chloride 100 ml @ 50 mls/hr Q2H PRN IV For Potassium 2.8 - 3.2 mEq/L 11/14/17 15:45 Potassium Chloride 100 ml @ 50 mls/hr Q2H PRN IV For Potassium 2.8 - 3.2 mEq/L 11/14/17 15:45 Potassium Bicarb/ Potassium Chloride (K-Lyte Cl Eff) 50 meq UNSCH PRN PO For Potassium 3.3 - 3.5 mEq/L 11/14/17 15:45 Potassium Chloride 100 ml @ 25 mls/hr UNSCH PRN IV For Potassium 3.3 - 3.5 mEq/L 11/14/17 15:45 Potassium Chloride 100 ml @ 50 mls/hr Q2H PRN IV For Potassium 3.3 - 3.5 mEq/L 11/14/17 15:45 Magnesium Sulfate 4 gm/Sodium Chloride 100 ml @ 50 mls/hr UNSCH PRN IV For Magnesium 0.9 - 1.1 mg/dL 11/14/17 15:45 Magnesium Oxide (Mag-Ox) 800 mg UNSCH PRN PO For Magnesium 1.2 - 1.6 mg/dL 11/14/17 15:45 Magnesium Sulfate 2 gm/Sodium Chloride 100 ml @ 50 mls/hr UNSCH PRN IV For Magnesium 1.2 - 1.6 mg/dL 11/14/17 15:45 Potassium Phosphate (K-Phos) 2,000 mg Q4H PRN PO For Phosphorus < 2.5 mg/dL 11/14/17 15:45 Sodium Phosphate 30 mmol/Sodium Chloride 250 ml @ 42 mls/hr UNSCH PRN IV For Phosphorus < 2.5 mg/dL 11/14/17 15:45 Potassium Phosphate (K-Phos) 2,000 mg UNSCH PRN PO/TUBE SEE LABEL COMMENTS 11/14/17 15:45 Potassium Phosphate 30 mmol/ Sodium Chloride 260 ml @ 42 mls/hr UNSCH PRN IV SEE LABEL COMMENTS 11/14/17 15:45 Vancomycin HCl 1700 mg/Sodium Chloride 517 ml @ 250 mls/hr Q18H IV 11/14/17 18:00 11/15/17 11:59 Miscellaneous Information SPECIFIC LAB TO BE LEEANN... ONCE ONCE .XX 11/16/17 23:45 11/16/17 23:46 Apixaban (Eliquis) 5 mg BID PO 11/14/17 21:00 11/15/17 09:00 Atorvastatin Calcium (Lipitor) 80 mg HS PO 11/14/17 21:00 Bumetanide (Bumetanide) 2 mg BID PO 11/14/17 21:00 11/15/17 09:00 Digoxin (Lanoxin) 0.125 mg DAILY PO 11/15/17 09:00 11/15/17 09:00 Diltiazem HCl (Cardizem) 60 mg QID PO 11/14/17 18:00 11/15/17 12:03 Metoprolol Tartrate (Lopressor) 50 mg BID PO 11/14/17 21:00 11/15/17 09:00 Potassium Chloride (KCl) 10 meq BID PO 11/14/17 21:00 11/15/17 09:00 Patient Own Medication PT OWN MED: Mometas... HS INH 11/14/17 21:00 Future Hold Metoprolol Tartrate (Lopressor Inj) 2.5 mg Q6H PRN IV PUSH RAPID HEART RATE 11/15/17 09:15 11/15/17 09:52 OBJECTIVE: Vital Signs Date Time Temp Pulse Resp B/P (MAP) Pulse Ox O2 Delivery O2 Flow Rate FiO2 11/15/17 09:09 99 60 11/15/17 06:00 69 11/15/17 04:30 98 40 11/15/17 04:00 75 11/15/17 04:00 98.0 80 15 151/84 (106) 93 11/15/17 02:00 73 11/15/17 00:00 97.9 77 20 135/78 (97) 98 11/15/17 00:00 77 11/14/17 23:37 98 40 11/14/17 22:00 94 40 11/14/17 22:00 95 3.00 11/14/17 22:00 86 11/14/17 21:51 98.0 87 20 156/77 (103) 95 11/14/17 21:21 100 50 11/14/17 19:47 90 16 141/83 (102) 100 BiPAP 100 11/14/17 14:55 74 19 121/73 (89) 100 BiPAP 100 11/14/17 13:00 98 100 Laboratory Tests Test 11/14/17 12:53 11/14/17 13:40 11/14/17 15:45 11/14/17 18:40 White Blood Count 18.9 TH/MM3 Red Blood Count 4.25 MIL/MM3 Hemoglobin 11.2 GM/DL Hematocrit 35.5 % Mean Corpuscular Volume 83.5 FL Mean Corpuscular Hemoglobin 26.3 PG Mean Corpuscular Hemoglobin Concent 31.5 % Red Cell Distribution Width 16.6 % Platelet Count 165 TH/MM3 Mean Platelet Volume 7.9 FL Neutrophils (%) (Auto) 86.3 % Lymphocytes (%) (Auto) 7.1 % Monocytes (%) (Auto) 5.6 % Eosinophils (%) (Auto) 0.3 % Basophils (%) (Auto) 0.7 % Neutrophils # (Auto) 16.3 TH/MM3 Lymphocytes # (Auto) 1.3 TH/MM3 Monocytes # (Auto) 1.1 TH/MM3 Eosinophils # (Auto) 0.1 TH/MM3 Basophils # (Auto) 0.1 TH/MM3 CBC Comment DIFF FINAL Differential Comment Prothrombin Time 11.1 SEC Prothromb Time International Ratio 1.1 RATIO Activated Partial Thromboplast Time 23.4 SEC Blood Urea Nitrogen 29 MG/DL Creatinine 1.14 MG/DL Random Glucose 108 MG/DL Total Protein 6.6 GM/DL Albumin 3.2 GM/DL Calcium Level 8.0 MG/DL Alkaline Phosphatase 53 U/L Aspartate Amino Transf (AST/SGOT) 22 U/L Alanine Aminotransferase (ALT/SGPT) 27 U/L Total Bilirubin 0.4 MG/DL Sodium Level 140 MEQ/L Potassium Level 4.6 MEQ/L Chloride Level 92 MEQ/L Carbon Dioxide Level 43.6 MEQ/L Anion Gap 4 MEQ/L Estimat Glomerular Filtration Rate 62 ML/MIN Phosphorus Level 4.3 MG/DL Total Creatine Kinase 64 U/L Troponin I 0.10 NG/ML B-Type Natriuretic Peptide 157 PG/ML Lactic Acid Level 1.4 mmol/L Blood Gas Puncture Site LT RADIAL Blood Gas Patient Temperature 98.6 Blood Gas HCO3 43 mmol/L Blood Gas Base Excess 16.1 mmol/L Blood Gas Oxygen Saturation 98 % Arterial Blood pH 7.28 Arterial Blood Partial Pressure CO2 95 mmHg Arterial Blood Partial Pressure O2 339 mmHG Arterial Blood Oxygen Content 15.5 Vol % Arterial Blood Carboxyhemoglobin 1.3 % Arterial Blood Methemoglobin 0.5 % Blood Gas Hemoglobin 10.6 G/DL Oxygen Delivery Device BiPAP Blood Gas Ventilator Setting Blood Gas Inspired Oxygen 100 % Urine Color YELLOW Urine Turbidity CLEAR Urine pH 5.5 Urine Specific Plummer 1.024 Urine Protein 30 mg/dL Urine Glucose (UA) NEG mg/dL Urine Ketones NEG mg/dL Urine Occult Blood NEG Urine Nitrite NEG Urine Bilirubin NEG Urine Urobilinogen LESS THAN 2.0 MG/DL Urine Leukocyte Esterase NEG Urine WBC 1 /hpf Urine Squamous Epithelial Cells <1 /hpf Urine Mucus FEW /lpf Microscopic Urinalysis Comment CULT NOT INDICATED Test 11/14/17 21:55 11/15/17 04:59 11/15/17 10:30 Nasal Screen MRSA (PCR) MRSA DETECTED White Blood Count 7.0 TH/MM3 Red Blood Count 4.05 MIL/MM3 Hemoglobin 10.8 GM/DL Hematocrit 34.2 % Mean Corpuscular Volume 84.4 FL Mean Corpuscular Hemoglobin 26.6 PG Mean Corpuscular Hemoglobin Concent 31.4 % Red Cell Distribution Width 16.8 % Platelet Count 126 TH/MM3 Mean Platelet Volume 7.9 FL Neutrophils (%) (Auto) 88.4 % Lymphocytes (%) (Auto) 9.2 % Monocytes (%) (Auto) 2.3 % Eosinophils (%) (Auto) 0.0 % Basophils (%) (Auto) 0.1 % Neutrophils # (Auto) 6.1 TH/MM3 Lymphocytes # (Auto) 0.6 TH/MM3 Monocytes # (Auto) 0.2 TH/MM3 Eosinophils # (Auto) 0.0 TH/MM3 Basophils # (Auto) 0.0 TH/MM3 CBC Comment DIFF FINAL Differential Comment Prothrombin Time 10.8 SEC Prothromb Time International Ratio 1.1 RATIO Blood Urea Nitrogen 34 MG/DL Creatinine 1.03 MG/DL Random Glucose 129 MG/DL Total Protein 6.0 GM/DL Albumin 2.9 GM/DL Calcium Level 8.2 MG/DL Phosphorus Level 3.5 MG/DL Magnesium Level 2.3 MG/DL Alkaline Phosphatase 49 U/L Aspartate Amino Transf (AST/SGOT) 10 U/L Alanine Aminotransferase (ALT/SGPT) 24 U/L Total Bilirubin 0.4 MG/DL Sodium Level 141 MEQ/L Potassium Level 4.5 MEQ/L Chloride Level 93 MEQ/L Carbon Dioxide Level 41.9 MEQ/L Anion Gap 6 MEQ/L Estimat Glomerular Filtration Rate 70 ML/MIN B-Type Natriuretic Peptide 80 PG/ML Blood Gas Puncture Site RT RADIAL Blood Gas Patient Temperature 98.6 Blood Gas HCO3 42 mmol/L Blood Gas Base Excess 15.9 mmol/L Blood Gas Oxygen Saturation 97 % Arterial Blood pH 7.36 Arterial Blood Partial Pressure CO2 76 mmHg Arterial Blood Partial Pressure O2 163 mmHg Arterial Blood Oxygen Content 14.8 Vol % Arterial Blood Carboxyhemoglobin 1.3 % Arterial Blood Methemoglobin 1.2 % Blood Gas Hemoglobin 10.7 G/DL Oxygen Delivery Device BiPAP Blood Gas Ventilator Setting [id number] Blood Gas Inspired Oxygen 45 % IMAGING: Chest X-Ray 11/15/17 0000 Signed Impressions: Service Date/Time: Wednesday, November 15, 2017 09:32 - CONCLUSION: 1. No acute abnormality or significant interval change. Anil Aldana MD PHYSICAL EXAMINATION: GENERAL: No acute distress, HEENT: Head atraumatic. Extraocular movements grossly intact. Unable to fully assess extraocular movements. BiPAP in place. NECK: No swelling or adenopathy. LUNGS: Decreased breath sounds. HEART: Regular without audible murmurs. ABDOMEN: Bowel sounds present, but diminished; obese, soft. No tenderness EXTREMITIES: One plus edema of the lower extremities, bilateral. No clubbing or cyanosis. SKIN: No diffuse rash. NEUROLOGIC: Nonfocal. PSYCHIATRIC: Calm and cooperative. IMPRESSION: 1. Probable sepsis. 2. Pneumonia vs COPD exacerbation. 3. Leukocytosis. Improved. 4. History of chronic obstructive pulmonary disease and a recent chronic obstructive pulmonary disease exacerbation. Source of sepsis, likely is pneumonia. RECOMMENDATIONS: 1. Continue vancomycin. 2. Continue cefepime. 3. Continue aztreonam. 4. Monitor clinical status. 5. I have ordered a sputum culture. If we are able to get a sputum sample and antibiotics can be adjusted to the culture results if available. Patient to be given a container to provide sputum for culture. Discussed with RN. Discussed with patient and at bedside. Tom Long MD Nov 15, 2017 13:03
[2017-11-15] MEDS: AZITHROMYCIN INJ 500 MG in SODIUM CHLOR 0.9% 250 ML INJ 250 ML IV SCH (14:25)
[2017-11-15] MEDS ORDERED: FUROSEMIDE 40 MG/4 ML VIAL IV PUSH ONE (15:30)
[2017-11-15] MEDS ORDERED: DEXMEDETOMIDINE INJ 200 MCG in SODIUM CHLORIDE 0.9% INJ 50 ML IV PRN (16:00)
[2017-11-15] MEDS: ATORVASTATIN 80 MG TAB PO SCH (20:05)
[2017-11-15] MEDS: ACETAMINOPHEN 325 MG TAB PO PRN (20:11)
[2017-11-16] VITALS (23 sets, daily range): BP systolic 90–150; BP diastolic 60–85; PULSE 59–130; RESP 16–22; TEMP 97.5–99.6; O2SAT 89–100
--- NOTE | 2017-11-16 00:53 | MB ---
cc: Johnny Price MD DATE OF CONSULT: 11/15/2017 REASON FOR CONSULTATION: COPD, congestive heart failure. HISTORY OF PRESENT ILLNESS: The patient is a 77-year-old gentleman who is very well known to my practice for several years. The patient was just recently in [facility]. The patient does have a history of recurrent COPD/CHF exacerbations. He does have chronic hypercapnia, for which he is on a Trilogy ventilator. The patient right now is doing okay. He feels fine. He feels at baseline. The patient is known to have chronic hypoxemia, for which he is on oxygen 24/7 and he is known to have chronic hypercapnia as well. PAST MEDICAL HISTORY, SURGICAL HISTORY, MEDICATIONS AND ALLERGIES: All reviewed in detail. GENERAL APPEARANCE: The patient looks comfortable, lying in bed. VITAL SIGNS: Show temperature of 96.1, pulse 76, respiratory rate 21, blood pressure is 135/87. He is saturating 90% on 40 percent oxygen. HEAD AND NECK EXAMINATION: Atraumatic, normocephalic. Trachea midline. LUNGS: Mild basilar crackles. HEART: S1, S2. ABDOMEN: Soft, obese. EXTREMITIES: Positive edema, which is chronic for him. NEUROLOGIC: Alert, oriented x3. Moves all extremities. LABORATORIES: Show WBC 7.0, platelets 126. Sodium is 141, potassium 4.5, BUN is 34, creatinine 1.03. BNP is 157. His PaCO2 is 76, pH 7.36, pO2 is 163. I reviewed his x-ray that showed no acute findings. ASSESSMENT AND PLAN: 1. Chronic obstructive pulmonary disease. 2. Congestive heart failure. 3. Volume overload. 4. Chronic hypercapnia. 5. Obstructive sleep apnea. 6. Pulmonary hypertension. 7. Right-sided heart failure. 8. Severe deconditioning. I had a long discussion with the patient and his . The patient is at his baseline. I am comfortable with how he is doing right now. I do not think that he needs to be in the intensive care unit. I would recommend continuing the current antibiotics and diuretics. The patient needs to be optimized from a volume perspective. The patient is okay to be switched to oral steroids from my perspective. The patient will need to be on all of his home medications, as well as the Trilogy ventilator. MD DIOGENSE Rosas , 08:14 PM , 12:51 AM
[2017-11-16] MEDS ORDERED: AMIODARONE INJ 150 MG in DEXTROSE 5% IN WATER 100ML INJ 97 ML IV ONE ×2 (02:04)
[2017-11-16] MEDS: RESP: ALBUTEROL 2.5 MG/IPRATROPIUM 0.5 MG NEB (SCH) INH ×4 (03:27→21:41)
[2017-11-16] MEDS: AMIODARONE INJ 450 MG in SODIUM CHLOR 0.9% (EXCEL) INJ 250 ML IV PRN ×3 (03:41→11:59)
[2017-11-16] MEDS: SODIUM CHLOR 0.9% 1000 ML INJ 1,000 ML IV SCH ×2 (04:00→05:01)
[2017-11-16] MEDS: HEPARIN SODIUM - SQ 10,000 UNITS/ML VIAL SQ SCH ×2 (04:00→16:53)
[2017-11-16] MEDS: CHLORHEXIDINE GLUCONATE 2 % 1 PACK (2 CLOTHS) TOP SCH (04:00)
--- NOTE | 2017-11-16 04:55 | RADRPT ---
EXAM DATE/TIME: 11/16/2017 03:18 [facility] COMPARISON: CHEST SINGLE AP, November 15, 2017, 9:32. INDICATIONS : Short of breath. MEDICAL HISTORY : None. SURGICAL HISTORY : None. ENCOUNTER: Subsequent ACUITY: 2 days PAIN SCORE: 0/10 LOCATION: Bilateral chest FINDINGS: A single view of the chest demonstrates the lungs to be symmetrically aerated without evidence of mas s, infiltrate or effusion. The cardiomediastinal contours are unremarkable. Osseous structures are intact. CONCLUSION: No infiltrates seen. Shaq Eisenberg MD on November 16, 2017 at 4:53 Board Certified Radiologist. This report was verified electronically.
[2017-11-16] MEDS: VANCOMYCIN INJ 1,700 MG in SODIUM CHLORID 0.9% 500 ML INJ 500 ML IV SCH (05:42)
[2017-11-16] MEDS: methylPREDNISolone SOD SUCC 40 MG/1 ML VIAL IV PUSH SCH ×2 (05:42→16:53)
[2017-11-16 05:55] LABS: AUTOMATED NEUTROPHIL # 7.2 TH/MM3 (1.8-7.7); BASOPHIL % 0.1 % (0.0-2.0); HEMATOCRIT 32.2 % (39.0-51.0); HEMOGLOBIN 10.4 GM/DL (13.0-17.0); LYMPH % 10.4 % (9.0-44.0); LYMPHOCYTE # 0.9 TH/MM3 (1.0-4.8); MEAN CELL VOLUME 83.3 FL (80.0-100.0); MEAN CORPUSCULAR HGB CONC 32.4 % (32.0-36.0); MONO % 4.2 % (0.0-8.0); MONOCYTE # 0.4 TH/MM3 (0-0.9); NEUT % 85.3 % (16.0-70.0); PLATELET COUNT 98 TH/MM3 (150-450); RED BLOOD COUNT 3.86 MIL/MM3 (4.50-5.90); RED CELL DISTRIBUTION WIDTH 16.7 % (11.6-17.2); WHITE BLOOD COUNT 8.4 TH/MM3 (4.0-11.0)
[2017-11-16 06:18] LABS: BICARBONATE 42.2 MEQ/L (21.0-32.0); CALCIUM 7.6 MG/DL (8.5-10.1); CREATININE 0.99 MG/DL (0.60-1.30)
[2017-11-16] MEDS: CEFEPIME INJ 2,000 MG in SODIUM CHLORIDE 0.9% INJ 100 ML IV SCH ×3 (07:47→23:49)
[2017-11-16] MEDS: POTASSIUM CHLORIDE 10 MEQ CAP PO SCH ×2 (08:53→20:48)
[2017-11-16] MEDS: BUMETANIDE 1 MG TAB PO SCH ×2 (08:53→20:47)
[2017-11-16] MEDS: APIXABAN 5 MG TABLET PO SCH ×2 (08:53→20:48)
[2017-11-16] MEDS: DIGOXIN 0.125 MG TAB PO SCH (08:53)
[2017-11-16] MEDS: SODIUM CHLORIDE 0.9% FLUSH 10 ML FLUSH IV FLUSH SCH ×2 (08:54→20:48)
[2017-11-16] MEDS: FAMOTIDINE 20 MG/2 ML VIAL IV PUSH SCH ×2 (08:54→20:48)
[2017-11-16] MEDS: DILTIAZEM HCL 60 MG TAB PO SCH ×4 (08:54→20:47)
[2017-11-16] MEDS: DOCUSATE SODIUM 50 MG/SENNA 8.6 MG TAB PO SCH ×2 (08:55→20:48)
[2017-11-16] MEDS: METOPROLOL TARTRATE 50 MG TAB PO SCH ×2 (08:55→20:48)
[2017-11-16] MEDS ORDERED: ROCURONIUM INJ 50 MG/5 ML VIAL IV ONE (09:15)
[2017-11-16] MEDS ORDERED: fentaNYL CITRATE 250 MCG/5 ML AMP IV PUSH ONE (09:15)
[2017-11-16] MEDS ORDERED: SUCCINYLCHOLINE CHLORIDE 200 MG/10 ML VIAL IV PUSH ONE (09:15)
[2017-11-16] MEDS ORDERED: SUCCINYLCHOLINE CHLORIDE 200 MG/10 ML VIAL ONE (09:15)
[2017-11-16] MEDS ORDERED: DEXMEDETOMIDINE INJ 1,000 MCG in SODIUM CHLOR 0.9% 250 ML INJ 240 ML IV PRN (09:15)
[2017-11-16] MEDS ORDERED: PROPOFOL 200 MG/20 ML AMP IV ONE (09:15)
[2017-11-16] MEDS ORDERED: PROPOFOL 500 MG/50 ML INJ 50 ML ONE (09:17)
[2017-11-16] MEDS ORDERED: ALBUMIN 5% INJ 250 ML IV ONE (10:04)
--- NOTE | 2017-11-16 10:11 | PD.PROCEDR ---
Procedure Note Procedure Endotracheal Intubation Diagnosis: Acute hypoxemic respiratory failure, COPD exacerbation, pneumonia Indications: Acute hypoxemic respiratory failure Consent: Emergent, discussed with patient's and son present at bedside Anesthesia: See MAR Description of the Procedure: The patient was positioned in the sniffing position. Pre-oxygenation was performed using a 100% BVM. Anesthesia was induced via rapid sequence. A Glidescope 4 was used for laryngoscopy and a Grade 1 view was obtained. A 8.0 cuffed endotracheal tube was inserted atraumatically through the vocal cords. Confirmation of correct endotracheal tube placement was made by equal and bilateral breath sounds and colorimetric CO2 detection. The endotracheal tube was secured at 22 cm at the teeth. There were no immediate complications noted. The patient remained hemodynamically stable throughout the procedure. A chest x-ray has been ordered. I personally performed the procedure. Lacy Rodriguez MD Nov 16, 2017 10:11
--- NOTE | 2017-11-16 10:42 | RADRPT ---
EXAM DATE/TIME: 11/16/2017 09:56 [facility] COMPARISON: CHEST SINGLE AP, November 16, 2017, 3:18. INDICATIONS : Post intubation MEDICAL HISTORY : Chronic obstructive pulmonary disease. sesis SURGICAL HISTORY : unobtainable ENCOUNTER: Initial ACUITY: 1 day PAIN SCORE: Non-responsive. LOCATION: Bilateral chest FINDINGS: An endotracheal tube has been placed. The ET tube appears to be in good position just above the thora cic aortic arch. There is no pneumothorax. There is an NG tube in stomach. The lungs appear to be wel l-aerated bilaterally. No significant pleural effusions. Heart size is stable. CONCLUSION: 1. ET tube in good position. 2. No pneumothorax. Erik Eason MD on November 16, 2017 at 10:39 Board Certified Radiologist. This report was verified electronically.
[2017-11-16] MEDS: fentaNYL DRIP 250 ML IV PRN (10:59)
[2017-11-16] MEDS: RESP: ALBUTEROL 2.5 MG/IPRATROPIUM 0.5 MG NEB (PRN) INH ×2 (14:08→15:55)
[2017-11-16 14:35] LABS: AMORPHOUS SEDIMENT, URINE MOD; BACTERIA, URINE RARE /hpf; BILIRUBIN, URINE NEG (NEG); BLOOD, URINE NEG (NEG); GLUCOSE,URINE NEG (NEG); HYALINE CAST, URINE 2 /lpf (RARE); KETONE, URINE NEG (NEG); MUCUS URINE FEW /lpf (OCC); NITRITE,URINE NEG (NEG); PH, URINE 5.5 (5.0-8.5); SQUAMOUS EPITHELIAL CELL URINE <1 /hpf (0-5); URINE COLOR YELLOW (YELLW/STRAW); URINE LEUKOCYTE ESTERASE NEG (NEG)
[2017-11-16] MEDS: AZITHROMYCIN INJ 500 MG in SODIUM CHLOR 0.9% 250 ML INJ 250 ML IV SCH ×2 (14:35→16:20)
--- NOTE | 2017-11-16 14:41 | HHI.IDPN ---
Note Infectious Disease Note Patient was intubated today because of worsening respiratory status. He is on the ventilator on 50% FiO2. Sedated. Afebrile. Sputum culture has gram-negative fredo. 77-year-old, white male who presents to the Emergency Department with shortness of breath. The patient has a history of COPD and CHF. He usually uses CPAP at the assisted living facility. He was noted to have been developing coughing and shortness of breath over the past couple of days, and his states that he was coughing a lot yesterday and bringing up mostly phlegm and that he was restless and could not sleep. She states that he was mostly awake over the For 24 hours before being brought to emergency department. Recently treated at [facility] for pneumonia due to methicillin-resistant Staphylococcus aureus. His states that he was still on the oral antibiotic for pneumonia and that he has 2 more days of the medication to complete therapy with Zyvox. PAST MEDICAL HISTORY: COPD, CHF, atrial fibrillation, insulin-dependent diabetes mellitus, hypertension, hyperlipidemia, gastroesophageal reflux, gastroparesis, iron deficiency anemia, oxygen-dependent. PAST SURGICAL HISTORY: Right knee surgery, right carpal tunnel release, cardiac ablation treatment 2002. ALLERGIES: ASPIRIN, CODEINE. MEDICATIONS: Current Medications Medications (Trade) Dose Ordered Sig/Yani Route PRN Reason Start Time Stop Time Status Last Admin Dose Admin Sodium Chloride (NS Flush) 2 ml UNSCH PRN IVF FLUSH AFTER USING IV ACCESS 11/14/17 12:45 Sodium Chloride (NS Flush) 2 ml UNSCH PRN IV FLUSH FLUSH AFTER USING IV ACCESS 11/14/17 15:45 Sodium Chloride (NS Flush) 2 ml BID IV FLUSH 11/14/17 21:00 11/16/17 08:54 Acetaminophen (Tylenol) 650 mg Q6H PRN PO PAIN 1-10 AND/OR FEVER >101F 11/14/17 15:45 11/15/17 20:11 Famotidine (Pepcid Inj) 20 mg Q12HR IV PUSH 11/14/17 21:00 11/16/17 08:54 Ondansetron HCl (Zofran Inj) 4 mg Q6H PRN IV PUSH NAUSEA OR VOMITING 11/14/17 15:45 Albuterol/ Ipratropium (Duoneb Neb) 1 ampule Q6HR NEB INH 11/14/17 16:00 11/16/17 14:08 Albuterol/ Ipratropium (Duoneb Neb) 1 ampule Q2HR NEB PRN INH WHEEZING 11/14/17 15:45 11/16/17 14:08 Heparin Sodium (Porcine) (Heparin Inj) 5,000 units Q12H SQ 11/14/17 16:00 11/16/17 04:00 Miscellaneous Information 1 Q361D XX 11/14/17 15:45 Chlorhexidine Gluconate (Chlorhexidine 2% Cloth) 3 pack Taper DAILY@04 TOP 11/15/17 04:00 11/11/18 03:59 11/16/17 04:00 Chlorhexidine Gluconate (Chlorhexidine 2% Cloth) 3 pack UNSCH PRN TOP HYGIENIC CARE 11/14/17 15:45 Senna/Docusate Sodium (Ricarda-Colace) 1 tab BID PO 11/14/17 21:00 11/15/17 20:04 Magnesium Hydroxide (Milk Of Magnesia Liq) 30 ml Q12H PRN PO Mild constipation 11/14/17 15:45 Sennosides (Senokot) 17.2 mg Q12H PRN PO Moderate constipation 11/14/17 15:45 Bisacodyl (Dulcolax Supp) 10 mg DAILY PRN RECTAL SEVERE CONSITIPATION 11/14/17 15:45 Lactulose (Lactulose Liq) 30 ml DAILY PRN PO SEVERE CONSITIPATION 11/14/17 15:45 Cefepime HCl 2000 mg/Sodium Chloride 100 ml @ 200 mls/hr Q8H IV 11/14/17 23:00 11/16/17 07:47 Azithromycin 500 mg/Sodium Chloride 250 ml @ 250 mls/hr Q24H IV 11/15/17 14:00 11/15/17 14:25 Pharmacy Profile Note 0 ml @ 0 mls/hr UNSCH OTHER 11/14/17 15:45 Methylprednisolone Sodium Succinate (SoluMEDROL INJ) 40 mg Q12H IV PUSH 11/14/17 17:00 11/16/17 05:42 Dextrose (D50w (Vial) Inj) 50 ml UNSCH PRN IV PUSH HYPOGLYCEMIA-SEE COMMENTS 11/14/17 15:45 Glucagon (Glucagon Inj) 1 mg UNSCH PRN OTHER HYPOGLYCEMIA-SEE COMMENTS 11/14/17 15:45 Potassium Chloride 100 ml @ 50 mls/hr Q2H PRN IV For Potassium 2.8 - 3.2 mEq/L 11/14/17 15:45 Potassium Chloride 100 ml @ 50 mls/hr Q2H PRN IV For Potassium 2.8 - 3.2 mEq/L 11/14/17 15:45 Potassium Bicarb/ Potassium Chloride (K-Lyte Cl Eff) 50 meq UNSCH PRN PO For Potassium 3.3 - 3.5 mEq/L 11/14/17 15:45 Potassium Chloride 100 ml @ 25 mls/hr UNSCH PRN IV For Potassium 3.3 - 3.5 mEq/L 11/14/17 15:45 Potassium Chloride 100 ml @ 50 mls/hr Q2H PRN IV For Potassium 3.3 - 3.5 mEq/L 11/14/17 15:45 Magnesium Sulfate 4 gm/Sodium Chloride 100 ml @ 50 mls/hr UNSCH PRN IV For Magnesium 0.9 - 1.1 mg/dL 11/14/17 15:45 Magnesium Oxide (Mag-Ox) 800 mg UNSCH PRN PO For Magnesium 1.2 - 1.6 mg/dL 11/14/17 15:45 Magnesium Sulfate 2 gm/Sodium Chloride 100 ml @ 50 mls/hr UNSCH PRN IV For Magnesium 1.2 - 1.6 mg/dL 11/14/17 15:45 Potassium Phosphate (K-Phos) 2,000 mg Q4H PRN PO For Phosphorus < 2.5 mg/dL 11/14/17 15:45 Sodium Phosphate 30 mmol/Sodium Chloride 250 ml @ 42 mls/hr UNSCH PRN IV For Phosphorus < 2.5 mg/dL 11/14/17 15:45 Potassium Phosphate (K-Phos) 2,000 mg UNSCH PRN PO/TUBE SEE LABEL COMMENTS 11/14/17 15:45 Potassium Phosphate 30 mmol/ Sodium Chloride 260 ml @ 42 mls/hr UNSCH PRN IV SEE LABEL COMMENTS 11/14/17 15:45 Vancomycin HCl 1700 mg/Sodium Chloride 517 ml @ 250 mls/hr Q18H IV 11/14/17 18:00 11/16/17 05:42 Miscellaneous Information SPECIFIC LAB TO BE LEEANN... ONCE ONCE .XX 11/16/17 23:45 11/16/17 23:46 Apixaban (Eliquis) 5 mg BID PO 11/14/17 21:00 11/16/17 08:53 Atorvastatin Calcium (Lipitor) 80 mg HS PO 11/14/17 21:00 11/15/17 20:05 Bumetanide (Bumetanide) 2 mg BID PO 11/14/17 21:00 11/16/17 08:53 Digoxin (Lanoxin) 0.125 mg DAILY PO 11/15/17 09:00 11/16/17 08:53 Diltiazem HCl (Cardizem) 60 mg QID PO 11/14/17 18:00 11/16/17 08:54 Metoprolol Tartrate (Lopressor) 50 mg BID PO 11/14/17 21:00 11/16/17 08:55 Potassium Chloride (KCl) 10 meq BID PO 11/14/17 21:00 11/16/17 08:53 Patient Own Medication PT OWN MED: Mometas... HS INH 11/14/17 21:00 Future Hold Metoprolol Tartrate (Lopressor Inj) 2.5 mg Q6H PRN IV PUSH RAPID HEART RATE 11/15/17 09:15 11/15/17 23:56 Amiodarone HCl 450 mg/Sodium Chloride 259 ml @ 33.33 mls/ hr Q7H47M PRN IV Per Protocol 11/16/17 02:14 11/16/17 11:49 Dexmedetomidine HCl 1000 mcg/ Sodium Chloride 250 ml @ 4.9 mls/hr TITRATE PRN IV SEDATION 11/16/17 09:15 11/16/17 09:24 Propofol 100 ml @ 2.895 mls/ hr TITRATE PRN IV SEDATION 11/16/17 09:15 Fentanyl Citrate 250 ml @ 5 mls/hr TITRATE PRN IV SEDATION 11/16/17 09:15 11/16/17 10:59 OBJECTIVE: Vital Signs Date Time Temp Pulse Resp B/P (MAP) Pulse Ox O2 Delivery O2 Flow Rate FiO2 11/16/17 14:08 96 35 11/16/17 11:49 59 99/61 11/16/17 11:28 98 50 11/16/17 09:56 99 100 11/16/17 09:02 94 100 11/16/17 07:26 100 High Flow Nasal Cannula 40.00 50 11/16/17 07:22 96 High Flow Nasal Cannula 40.00 60 11/16/17 07:14 96 40 11/16/17 06:00 102 11/16/17 04:31 94 40 11/16/17 04:00 102 11/16/17 04:00 97.8 102 18 90/60 (70) 96 11/16/17 03:41 109 113/78 11/16/17 02:32 134 137/75 11/16/17 02:00 122 11/16/17 01:58 93 35 11/16/17 00:00 97.5 130 20 112/74 (87) 91 11/16/17 00:00 130 11/15/17 22:45 96 35 11/15/17 22:00 63 11/15/17 21:20 95 High Flow Nasal Cannula 40.00 50 11/15/17 21:14 95 High Flow Nasal Cannula 40.00 60 11/15/17 20:00 98.0 64 22 123/82 (96) 95 11/15/17 20:00 64 11/15/17 18:00 76 11/15/17 17:34 90 High Flow Nasal Cannula 40.00 60 11/15/17 16:00 96.1 120 21 135/87 (103) 95 11/15/17 16:00 65 Laboratory Tests Test 11/15/17 04:59 11/16/17 04:40 White Blood Count 7.0 TH/MM3 8.4 TH/MM3 Red Blood Count 4.05 MIL/MM3 3.86 MIL/MM3 Hemoglobin 10.8 GM/DL 10.4 GM/DL Hematocrit 34.2 % 32.2 % Mean Corpuscular Volume 84.4 FL 83.3 FL Mean Corpuscular Hemoglobin 26.6 PG 27.0 PG Mean Corpuscular Hemoglobin Concent 31.4 % 32.4 % Red Cell Distribution Width 16.8 % 16.7 % Platelet Count 126 TH/MM3 98 TH/MM3 Mean Platelet Volume 7.9 FL 8.0 FL Neutrophils (%) (Auto) 88.4 % 85.3 % Lymphocytes (%) (Auto) 9.2 % 10.4 % Monocytes (%) (Auto) 2.3 % 4.2 % Eosinophils (%) (Auto) 0.0 % 0.0 % Basophils (%) (Auto) 0.1 % 0.1 % Neutrophils # (Auto) 6.1 TH/MM3 7.2 TH/MM3 Lymphocytes # (Auto) 0.6 TH/MM3 0.9 TH/MM3 Monocytes # (Auto) 0.2 TH/MM3 0.4 TH/MM3 Eosinophils # (Auto) 0.0 TH/MM3 0.0 TH/MM3 Basophils # (Auto) 0.0 TH/MM3 0.0 TH/MM3 CBC Comment DIFF FINAL AUTO DIFF Differential Comment AUTO DIFF CONFIRMED Platelet Estimate LOW Platelet Morphology Comment NORMAL Laboratory Tests Test 11/15/17 04:59 11/16/17 04:40 Blood Urea Nitrogen 34 MG/DL 34 MG/DL Creatinine 1.03 MG/DL 0.99 MG/DL Random Glucose 129 MG/DL 76 MG/DL Total Protein 6.0 GM/DL Albumin 2.9 GM/DL Calcium Level 8.2 MG/DL 7.6 MG/DL Phosphorus Level 3.5 MG/DL Magnesium Level 2.3 MG/DL Alkaline Phosphatase 49 U/L Aspartate Amino Transf (AST/SGOT) 10 U/L Alanine Aminotransferase (ALT/SGPT) 24 U/L Total Bilirubin 0.4 MG/DL Sodium Level 141 MEQ/L 143 MEQ/L Potassium Level 4.5 MEQ/L 3.9 MEQ/L Chloride Level 93 MEQ/L 96 MEQ/L Carbon Dioxide Level 41.9 MEQ/L 42.2 MEQ/L Anion Gap 6 MEQ/L 5 MEQ/L Estimat Glomerular Filtration Rate 70 ML/MIN 73 ML/MIN B-Type Natriuretic Peptide 80 PG/ML Microbiology Date/Time Source Procedure Growth Status 11/14/17 13:45 Blood Peripheral Aerobic Blood Culture - Preliminary NO GROWTH IN 2 DAYS Resulted 11/14/17 13:45 Blood Peripheral Anaerobic Blood Culture - Preliminary NO GROWTH IN 2 DAYS Resulted 11/14/17 13:40 Blood Peripheral Aerobic Blood Culture - Preliminary NO GROWTH IN 2 DAYS Resulted 11/14/17 13:40 Blood Peripheral Anaerobic Blood Culture - Preliminary NO GROWTH IN 2 DAYS Resulted 11/15/17 16:50 Sputum Expectorated Sputum Gram Stain - Final Resulted 11/15/17 16:50 Sputum Culture - Preliminary Gram Negative Fredo Resulted IMAGING: Chest X-Ray 11/16/17 0600 Signed Impressions: Service Date/Time: Thursday, November 16, 2017 03:18 - CONCLUSION: No infiltrates seen. Shaq Eisenberg MD Chest X-Ray 11/16/17 0000 Signed Impressions: Service Date/Time: Thursday, November 16, 2017 09:56 - CONCLUSION: 1. ET tube in good position. 2. No pneumothorax. Erik Eason MD Chest X-Ray 11/15/17 0000 Signed Impressions: Service Date/Time: Wednesday, November 15, 2017 09:32 - CONCLUSION: 1. No acute abnormality or significant interval change. Anil Aldana MD PHYSICAL EXAMINATION: GENERAL: Sedated. HEENT: Unable to assess adequately since patient is on the ventilator. NECK: No swelling or adenopathy. LUNGS: Bilateral rhonchi. HEART: Regular without audible murmurs. ABDOMEN: Bowel sounds present, but diminished; obese, soft. No tenderness EXTREMITIES: 1+ edema of the lower extremities, bilateral. No clubbing or cyanosis. SKIN: No diffuse rash. NEUROLOGIC: Nonfocal. PSYCHIATRIC: Calm and cooperative. IMPRESSION: 1. Probable sepsis. 2. Pneumonia gram-negative. 3. Acute respiratory failure. Intubated. 4. Leukocytosis. WBC improved. Now normal. 4. History of chronic obstructive pulmonary disease and recent chronic obstructive pulmonary disease exacerbation. Source of sepsis, likely is pneumonia. RECOMMENDATIONS: 1. Stop vancomycin. 2. Continue cefepime. 3. Stop azithromycin. 4. Monitor clinical status. 5. Monitor sputum culture for identity and sensitivity of the gram-negative fredo. 6. Monitor urine culture. Tom Long MD Nov 16, 2017 14:41
--- NOTE | 2017-11-16 14:49 | EKG ---
Date Performed: 11/16/2017 Time Performed: 09:21:46 PTAGE: 77 years EKG: Possible atrial flutter with rapid ventricular response with PVC(s). Poor R wave progressio n - probable normal variant Lateral T wave changes are nonspecific Low QRS voltages in limb leads Abn ormal ECG PREVIOUS TRACING : 11/14/2017 12.49 No significant change from previous tracing noted. DOCTOR: Abner Luther Interpretating Date/Time 11/16/2017 14:47:33
--- NOTE | 2017-11-16 17:04 | HHI.CCPN ---
Subjective Remarks/Hospital Course This is a 77-year-old male with a medical history significant for COPD, CHF, A. fib, diabetes, that presented to emergency department from [facility] for evaluation of worsening shortness of breath over the last 3 days. The patient was been given Solu-Medrol 125 mg and 2 albuterol treatments enroute to ED. Upon presentation to the ED the patient was on a nonrebreather. He was tachypneic and tachycardic. Patient's medical history significant for MRSA pneumonia previously admitted on 10/27/16 for approximately [address] [facility]. The patient is normally on 2.5 L/m nasal cannula O2 home dependency, and he lives with ( normally) a PCO2 in the 80s according to his . Patient was then discharged to [facility], and then transferred to [facility] for rehabilitation. He has been on an unknown antibiotic per the family and steroids for the last 3 days. Laboratory and imaging studies were performed with noted elevation in CO2 The patient was given empiric antibiotics in the ED and placed on BiPAP. Critical care medicine was consulted. Subjective: 11/15: Patient maintained on BiPAP throughout the night O2 saturations 97-98% on FiO2 of 0.40. Hemodynamically stable. Attempts made to wean patient to nasal cannula this a.m. unsuccessful, patient's O2 saturation in the 70s, patient placed back on BiPAP. Chest x-ray pending WBC count significantly diminished, leukocytosis resolved. Patient extremely anxious, Precedex infusion initiated. 11/16: Late entry note. Patient seen 10 AM. Overnight the patient converted to A. fib RVR, despite being on Cardizem 4 times a day and metoprolol twice a day- home medications, the patient received IV Cardizem followed by amiodarone infusion. Per report the patient became hypotensive, Cardizem discontinued. Amiodarone continued. Early this a.m. patient was resting comfortably A. fib rate controlled rate. The patient suddenly converted to A. fib RVR heart rate 150s-160s, acute hypoxemic respiratory failure, requiring intubation. The patient was intubated uneventfully and continues on amiodarone at 0.5 mg/hour, rate now controlled in conjunction with sedation. Cardiology consulted, his polygraph technician is Dr. Parker X-ray revealed lung consolidation improved, chest x- ray clear. Plan for CPAP trials in a.m.. Objective Vital Signs Date Time Temp Pulse Resp B/P (MAP) Pulse Ox O2 Delivery O2 Flow Rate FiO2 11/16/17 15:55 98 35 11/16/17 11:49 59 99/61 11/16/17 07:26 High Flow Nasal Cannula 40.00 11/16/17 04:00 97.8 18 Intake and Output 11/16/17 11/16/17 11/17/17 08:00 16:00 00:00 Intake Total 100 ml Output Total 1150 ml Balance -1050 ml Result Diagram: 11/16/17 0440 11/16/17 0440 Other Results Laboratory Tests Test 11/16/17 05:08 11/16/17 10:44 Blood Gas Puncture Site RT RADIAL RT RADIAL Blood Gas Patient Temperature 98.6 98.6 Blood Gas HCO3 43 mmol/L (22-26) 37 mmol/L (22-26) Blood Gas Base Excess 17.0 mmol/L (-2-2) 10.5 mmol/L (-2-2) Blood Gas Oxygen Saturation 94 % (90-100) 97 % (90-100) Arterial Blood pH 7.39 (7.380-7.420) 7.29 (7.380-7.420) Arterial Blood Partial Pressure CO2 73 mmHg (38-42) 81 mmHg (38-42) Arterial Blood Partial Pressure O2 90 mmHg (61-120) 197 mmHg (61-120) Arterial Blood Oxygen Content 13.8 Vol % (12.0-20.0) 14.5 Vol % (12.0-20.0) Arterial Blood Carboxyhemoglobin 1.4 % (0-4) 1.1 % (0-4) Arterial Blood Methemoglobin 1.2 % (0-2) 1.4 % (0-2) Blood Gas Hemoglobin 10.3 G/DL (12.0-16.0) 10.3 G/DL (12.0-16.0) Oxygen Delivery Device BIPAP 15/+5 VENTILATOR Blood Gas Inspired Oxygen 40 % 80 % Blood Gas Ventilator Setting PRVC/18/500/PEEP5 Imaging Last Impressions Chest X-Ray 11/16/17 0600 Signed Impressions: Service Date/Time: Thursday, November 16, 2017 03:18 - CONCLUSION: No infiltrates seen. Shaq Eisenberg MD Last Impressions Chest X-Ray 11/14/17 1241 Signed Impressions: Service Date/Time: Tuesday, November 14, 2017 12:51 - CONCLUSION: No acute disease. Resolved atelectasis versus airspace consolidation involving the left lower lobe. Jocelyn Aguila MD Objective Remarks GENERAL: This is a well-developed well-nourished overweight male SKIN: Warm and dry. HEAD: Atraumatic. Normocephalic. EYES: Pupils equal and round. No scleral icterus. No injection or drainage. ENT: No nasal bleeding or discharge. Mucous membranes pink and moist. NECK: Trachea midline. No JVD. CARDIOVASCULAR: Normal rate, regular rhythm. Telemetry sinus rhythm RESPIRATORY: No accessory muscle use. Clear to auscultation. Breath sounds equal bilaterally. GASTROINTESTINAL: Abdomen soft, non-tender, obese, nondistended. No guarding. MUSCULOSKELETAL: Extremities without clubbing, cyanosis, or edema. No obvious deformities. Bilaterally lower extremity venous stasis noted. Ecchymotic bruising noted bilateral upper extremities NEUROLOGICAL: Intubated and sedated. RASS 0. No gross focal/sensory deficits. Follows commands in all 4 extremities. A/P Problem List: (1) A-fib ICD Code: I48.91 - Unspecified atrial fibrillation (2) CHF (congestive heart failure) ICD Code: I50.9 - Heart failure, unspecified Status: Chronic (3) HTN (hypertension) ICD Code: I10 - Essential (primary) hypertension Status: Chronic (4) ADRIAN (obstructive sleep apnea) ICD Code: G47.33 - Obstructive sleep apnea (adult) (pediatric) Status: Chronic (5) MRSA pneumonia ICD Code: J15.212 - Pneumonia due to Methicillin resistant Staphylococcus aureus Status: Acute (6) Diabetes mellitus type 2, insulin dependent ICD Code: E11.9 - Type 2 diabetes mellitus without complications; Z79.4 - alf (current) use of insulin Status: Chronic (7) COPD (chronic obstructive pulmonary disease) ICD Code: J44.9 - Chronic obstructive pulmonary disease, unspecified Status: Acute (8) Respiratory distress ICD Code: R06.03 - Acute respiratory distress Status: Acute (9) Leukocytosis ICD Code: D72.829 - Elevated white blood cell count, unspecified Status: Acute (10) Lung consolidation ICD Code: J18.1 - Lobar pneumonia, unspecified organism Status: Acute (11) Anxiety ICD Code: F41.9 - Anxiety disorder, unspecified Status: Chronic Assessment and Plan Plan by systems: Neurologic: Anxiety disorder Versed and fentanyl infusions to maintain ventilator synchrony Tylenol for pain and fever. 100.5 Daily sedation vacation Hold gabapentin 300mmg q HS home med Respiratory: COPD exacerbation Pneumonia-MRSA Obstructive sleep apnea Home O2 dependency 11/16-intubated 8.0 ETT at 23 cm at the teeth F/U ABG this am 11/16 chest x-ray -clear lung Chest x-ray and ABGs when clinically indicated Patient was on a prednisone large taper, held, methylprednisolone 40 mg every 12 hours Pulmonology following- Dr Price, patient's general laborer Begin CPAP trials in a.m., and as tolerated Cardiovascular: A. fib RVR History of CHF CAD Continue home medications Eliquis 5 mg twice a day, atorvastatin 80 daily at bedtime, metoprolol 50 mg twice a day, Cardizem 60 mg 4 times a day digoxin 0.25 /daily Patient's polygraph technician is Dr. Parker-consulted 11/16 Admission EKG- Afib with RVR Trend BNP Obtain dig level 11/16 Amiodarone 0.5 mg/hour Renal: Maintain Haynes -- Strict I/Os FEN/GI: Electrolyte derangement GERD Dietary consult Begin tube feeds Monitor BMP Continue home med Bumex 2 mg PO, BID Replete electrolytes per ICU protocol IVF - NSS@ 42cc/hr, discontinued 11/15 Heme/ID: Pneumonia MRSA positive-on 10/27 Leukocytosis ID following- Antibiotics per ID 11/14 Obtain blood , urine - NGTD 11/16 Obtain sputum cultures- Gram Negative Fredo Monitor CBC Endocrine: Glucose monitoring per ICU protocol-low dose regimen -- SSI Prophylaxis: GI Prophylaxis Famotidine BID DVT Prophylaxis -- SCDs Continue home dose Eliquis 5 mg BID Lines: PIVs 2. Central line if indicated Dispo: I discussed with and HOPPER FEEDER (Joelle) at bedside (Joelle and patient's son), all questions answered my billing statement This patient remains critically ill with one or more organ systems which are or may become a threat to life. I have spent in excess of 49 minutes discontinuously in the care and management of this patient. This time is exclusive of procedures, and includes, but is not limited to, evaluation of the patient, review of the medical record, discussions with family, consultants, nursing staff, or respiratory therapy, and documentation in the medical record. Physician Lacy Rodriguez Problem Qualifiers (1) COPD (chronic obstructive pulmonary disease): Qualified Codes: J44.9 - Chronic obstructive pulmonary disease, unspecified (2) Leukocytosis: Qualified Codes: D72.829 - Elevated white blood cell count, unspecified Lacy Rodriguez MD Nov 16, 2017 17:04
[2017-11-16] MEDS ORDERED: DEXTROSE 50% IN WATER 50 ML VIAL(D50) IV PUSH PRN (18:00)
[2017-11-16] MEDS ORDERED: GLUCAGON 1 MG/ML VIAL OTHER PRN (18:00)
[2017-11-16] MEDS: PROPOFOL 1000 MG/100 ML INJ 100 ML IV PRN (19:42)
[2017-11-16] MEDS: ATORVASTATIN 80 MG TAB PO SCH (20:48)
[2017-11-16] MEDS: INSULIN ASPART SUPPLEMENTAL SCALE SQ SCH (21:00)
[2017-11-16] MEDS ORDERED: PHARMACY ORDERED LAB ONE (23:45)
[2017-11-17] VITALS (22 sets, daily range): BP systolic 115–168; BP diastolic 57–82; PULSE 51–114; RESP 20–24; TEMP 98.2–98.8; O2SAT 95–100
[2017-11-17] MEDS: fentaNYL DRIP 250 ML IV PRN ×2 (01:37→16:18)
[2017-11-17] MEDS: RESP: ALBUTEROL 2.5 MG/IPRATROPIUM 0.5 MG NEB (SCH) INH ×4 (02:19→20:58)
[2017-11-17] MEDS: AMIODARONE INJ 450 MG in SODIUM CHLOR 0.9% (EXCEL) INJ 250 ML IV PRN ×2 (03:37→21:32)
[2017-11-17] MEDS: CHLORHEXIDINE GLUCONATE 2 % 1 PACK (2 CLOTHS) TOP SCH (04:00)
[2017-11-17] MEDS: HEPARIN SODIUM - SQ 10,000 UNITS/ML VIAL SQ SCH ×2 (04:58→16:00)
--- NOTE | 2017-11-17 05:00 | RADRPT ---
EXAM DATE/TIME: 11/17/2017 02:58 [facility] COMPARISON: CHEST SINGLE AP, November 16, 2017, 9:56. INDICATIONS : Shortness of breath. MEDICAL HISTORY : Chronic obstructive pulmonary disease. SURGICAL HISTORY : Unobtainable. ENCOUNTER: Subsequent ACUITY: 2 days PAIN SCORE: Non-responsive. LOCATION: Bilateral chest FINDINGS: Limited quality exam with no penetration through the inferior mediastinum. The lungs are clear. No infiltrate seen. ET tube in good position. Gastric tube traverses the [id number]. CONCLUSION: 1. The lungs are clear. 2. Technical limitations precludes evaluation of the inferior mediastinum. Shaq Eisenberg MD on November 17, 2017 at 4:57 Board Certified Radiologist. This report was verified electronically.
[2017-11-17] MEDS: methylPREDNISolone SOD SUCC 40 MG/1 ML VIAL IV PUSH SCH ×2 (05:46→17:31)
[2017-11-17] MEDS: PROPOFOL 1000 MG/100 ML INJ 100 ML IV PRN (06:04)
[2017-11-17] MEDS: CEFEPIME INJ 2,000 MG in SODIUM CHLORIDE 0.9% INJ 100 ML IV SCH (07:35)
[2017-11-17] MEDS: INSULIN ASPART SUPPLEMENTAL SCALE SQ SCH ×4 (07:53→21:39)
[2017-11-17 08:07] LABS: AUTOMATED NEUTROPHIL # 8.4 TH/MM3 (1.8-7.7); BASOPHIL % 0.4 % (0.0-2.0); HEMOGLOBIN 10.4 GM/DL (13.0-17.0); LYMPH % 8.5 % (9.0-44.0); LYMPHOCYTE # 0.8 TH/MM3 (1.0-4.8); MEAN CELL VOLUME 83.1 FL (80.0-100.0); MEAN CORPUSCULAR HEMOGLOBIN 26.9 PG (27.0-34.0); MEAN CORPUSCULAR HGB CONC 32.3 % (32.0-36.0); MEAN PLATELET VOLUME 7.8 FL (7.0-11.0); MONO % 6.4 % (0.0-8.0); MONOCYTE # 0.6 TH/MM3 (0-0.9); NEUT % 84.7 % (16.0-70.0); PLATELET COUNT 100 TH/MM3 (150-450); RED BLOOD COUNT 3.86 MIL/MM3 (4.50-5.90); RED CELL DISTRIBUTION WIDTH 17.4 % (11.6-17.2); WHITE BLOOD COUNT 9.9 TH/MM3 (4.0-11.0)
[2017-11-17] MEDS: BUMETANIDE 1 MG TAB PO SCH ×2 (08:23→21:36)
[2017-11-17] MEDS: POTASSIUM CHLORIDE 10 MEQ CAP PO SCH ×2 (08:24→21:36)
[2017-11-17] MEDS: METOPROLOL TARTRATE 50 MG TAB PO SCH ×2 (08:24→21:36)
[2017-11-17] MEDS: APIXABAN 5 MG TABLET PO SCH ×2 (08:24→21:37)
[2017-11-17] MEDS: DILTIAZEM HCL 60 MG TAB PO SCH ×4 (08:24→21:37)
[2017-11-17] MEDS: DIGOXIN 0.125 MG TAB PO SCH (08:24)
[2017-11-17] MEDS: DOCUSATE SODIUM 50 MG/SENNA 8.6 MG TAB PO SCH ×2 (08:24→21:37)
[2017-11-17] MEDS: FAMOTIDINE 20 MG/2 ML VIAL IV PUSH SCH ×2 (08:25→21:37)
[2017-11-17] MEDS: SODIUM CHLORIDE 0.9% FLUSH 10 ML FLUSH IV FLUSH SCH ×2 (08:25→21:37)
--- NOTE | 2017-11-17 08:32 | HHI.CCPN ---
Subjective Remarks/Hospital Course This is a 77-year-old male with a medical history significant for COPD, CHF, A. fib, diabetes, that presented to emergency department from [facility] for evaluation of worsening shortness of breath over the last 3 days. The patient was been given Solu-Medrol 125 mg and 2 albuterol treatments enroute to ED. Upon presentation to the ED the patient was on a nonrebreather. He was tachypneic and tachycardic. Patient's medical history significant for MRSA pneumonia previously admitted on 10/27/16 for approximately 12 days at [facility]. The patient is normally on 2.5 L/m nasal cannula O2 home dependency, and he lives with ( normally) a PCO2 in the 80s according to his . Patient was then discharged to [facility], and then transferred to [facility] for rehabilitation. He has been on an unknown antibiotic per the family and steroids for the last 3 days. Laboratory and imaging studies were performed with noted elevation in CO2 The patient was given empiric antibiotics in the ED and placed on BiPAP. Critical care medicine was consulted. Subjective: 11/15: Patient maintained on BiPAP throughout the night O2 saturations 97-98% on FiO2 of 0.40. Hemodynamically stable. Attempts made to wean patient to nasal cannula this a.m. unsuccessful, patient's O2 saturation in the 70s, patient placed back on BiPAP. Chest x-ray pending WBC count significantly diminished, leukocytosis resolved. Patient extremely anxious, Precedex infusion initiated. 11/16: Late entry note. Patient seen 10 AM. Overnight the patient converted to A. fib RVR, despite being on Cardizem 4 times a day and metoprolol twice a day- home medications, the patient received IV Cardizem followed by amiodarone infusion. Per report the patient became hypotensive, Cardizem discontinued. Amiodarone continued. Early this a.m. patient was resting comfortably A. fib rate controlled rate. The patient suddenly converted to A. fib RVR heart rate 150s-160s, acute hypoxemic respiratory failure, requiring intubation. The patient was intubated uneventfully and continues on amiodarone at 0.5 mg/hour, rate now controlled in conjunction with sedation. Cardiology consulted, his abrasive worker is Dr. Parker X-ray revealed lung consolidation improved, chest x- ray clear. Plan for CPAP trials in a.m.. 11/17: No acute events overnight. Patient had 1 short 8 beat run of V. tach last evening was self resolution, electrolytes within normal limits. The patient continues on amiodarone 0.5 mg/hr. CPAP trials initiated this a.m.. Tube feeds initiated at trickle feeds. Patient converted to sinus rhythm at 2 AM. Objective Vital Signs Date Time Temp Pulse Resp B/P (MAP) Pulse Ox O2 Delivery O2 Flow Rate FiO2 11/17/17 08:09 100 35 11/17/17 06:00 60 11/17/17 04:00 98.3 20 136/57 (83) 11/16/17 07:26 High Flow Nasal Cannula 40.00 Intake and Output 11/17/17 11/17/17 11/18/17 08:00 16:00 00:00 Intake Total 645 ml Output Total 450 ml Balance 195 ml Result Diagram: 11/17/17 0745 11/16/17 0440 Other Results Laboratory Tests Test 11/16/17 10:44 Blood Gas Puncture Site RT RADIAL Blood Gas Patient Temperature 98.6 Blood Gas HCO3 37 mmol/L (22-26) Blood Gas Base Excess 10.5 mmol/L (-2-2) Blood Gas Oxygen Saturation 97 % (90-100) Arterial Blood pH 7.29 (7.380-7.420) Arterial Blood Partial Pressure CO2 81 mmHg (38-42) Arterial Blood Partial Pressure O2 197 mmHg (61-120) Arterial Blood Oxygen Content 14.5 Vol % (12.0-20.0) Arterial Blood Carboxyhemoglobin 1.1 % (0-4) Arterial Blood Methemoglobin 1.4 % (0-2) Blood Gas Hemoglobin 10.3 G/DL (12.0-16.0) Oxygen Delivery Device VENTILATOR Blood Gas Ventilator Setting PRVC/18/500/PEEP5 Blood Gas Inspired Oxygen 80 % Imaging Last Impressions Chest X-Ray 11/16/17 0600 Signed Impressions: Service Date/Time: Thursday, November 16, 2017 03:18 - CONCLUSION: No infiltrates seen. Shaq Eisenberg MD Last Impressions Chest X-Ray 11/14/17 1241 Signed Impressions: Service Date/Time: Tuesday, November 14, 2017 12:51 - CONCLUSION: No acute disease. Resolved atelectasis versus airspace consolidation involving the left lower lobe. Jocelyn Aguila MD Objective Remarks GENERAL: This is a well-developed well-nourished overweight male to beta currently RASS -1 SKIN: Warm and dry. HEAD: Atraumatic. Normocephalic. EYES: Pupils equal and round. No scleral icterus. No injection or drainage. ENT: No nasal bleeding or discharge. Mucous membranes pink and moist. NECK: Trachea midline. No JVD. CARDIOVASCULAR: Normal rate, regular rhythm. Telemetry sinus rhythm RESPIRATORY: No accessory muscle use. Clear to auscultation. Breath sounds equal bilaterally. GASTROINTESTINAL: Abdomen soft, non-tender, obese, nondistended. No guarding. MUSCULOSKELETAL: Extremities without clubbing, cyanosis, or edema. No obvious deformities. Bilaterally lower extremity venous stasis noted. Ecchymotic bruising noted bilateral upper extremities NEUROLOGICAL: Intubated and sedated. RASS -1. No gross focal/sensory deficits. Follows commands in all 4 extremities. A/P Problem List: (1) A-fib ICD Code: I48.91 - Unspecified atrial fibrillation (2) CHF (congestive heart failure) ICD Code: I50.9 - Heart failure, unspecified Status: Chronic (3) HTN (hypertension) ICD Code: I10 - Essential (primary) hypertension Status: Chronic (4) ADRIAN (obstructive sleep apnea) ICD Code: G47.33 - Obstructive sleep apnea (adult) (pediatric) Status: Chronic (5) MRSA pneumonia ICD Code: J15.212 - Pneumonia due to Methicillin resistant Staphylococcus aureus Status: Acute (6) Diabetes mellitus type 2, insulin dependent ICD Code: E11.9 - Type 2 diabetes mellitus without complications; Z79.4 - half-way (current) use of insulin Status: Chronic (7) COPD (chronic obstructive pulmonary disease) ICD Code: J44.9 - Chronic obstructive pulmonary disease, unspecified Status: Acute (8) Respiratory distress ICD Code: R06.03 - Acute respiratory distress Status: Acute (9) Leukocytosis ICD Code: D72.829 - Elevated white blood cell count, unspecified Status: Acute (10) Lung consolidation ICD Code: J18.1 - Lobar pneumonia, unspecified organism Status: Acute (11) Anxiety ICD Code: F41.9 - Anxiety disorder, unspecified Status: Chronic Assessment and Plan Plan by systems: Neurologic: Anxiety disorder Versed and fentanyl infusions to maintain ventilator synchrony Tylenol for pain and fever. 100.5 Daily sedation vacation Hold gabapentin 300mmg q HS home med Respiratory: COPD exacerbation Pneumonia-MRSA Obstructive sleep apnea Home O2 dependency 11/16-intubated 8.0 ETT at 23 cm at the teeth F/U ABG this am 11/17 chest x-ray -clear lungs Chest x-ray and ABGs when clinically indicated Patient was on a prednisone large taper, held, methylprednisolone 40 mg every 12 hours Pulmonology following- Dr Price, patient's upfitter CPAP trials in a.m., and as tolerated Cardiovascular: A. fib RVR History of CHF CAD Continue home medications Eliquis 5 mg twice a day, atorvastatin 80 daily at bedtime, metoprolol 50 mg twice a day, Cardizem 60 mg 4 times a day digoxin 0.25 /daily Patient's abrasive worker is Dr. Parker-consulted 11/16 Admission EKG- Afib with RVR Trend BNP Obtain dig level 11/16 Amiodarone 0.5 mg/hour Renal: Maintain Haynes -- Strict I/Os FEN/GI: Electrolyte derangement GERD Dietary consult Begin tube feeds Monitor BMP Continue home med Bumex 2 mg PO, BID Replete electrolytes per ICU protocol IVF - NSS@ 42cc/hr, discontinued 11/15 Heme/ID: Pneumonia MRSA positive-on 10/27 Leukocytosis ID following- Antibiotics per ID 11/14 Obtain blood , urine - NGTD 11/16 Obtain sputum cultures- Gram Negative Fredo Monitor CBC Endocrine: Glucose monitoring per ICU protocol-low dose regimen -- SSI Prophylaxis: GI Prophylaxis Famotidine BID DVT Prophylaxis -- SCDs Continue home dose Eliquis 5 mg BID Lines: PIVs 2. Central line if indicated Dispo: I discussed with and NIGHT CLERK AUDITOR (Joelle) at bedside (Joelle and patient's son), all questions answered my billing statement This patient remains critically ill with one or more organ systems which are or may become a threat to life. I have spent in excess of 35 minutes discontinuously in the care and management of this patient. This time is exclusive of procedures, and includes, but is not limited to, evaluation of the patient, review of the medical record, discussions with family, consultants, nursing staff, or respiratory therapy, and documentation in the medical record. Physician Lacy Young Problem Qualifiers (1) COPD (chronic obstructive pulmonary disease): Qualified Codes: J44.9 - Chronic obstructive pulmonary disease, unspecified (2) Leukocytosis: Qualified Codes: D72.829 - Elevated white blood cell count, unspecified Lacy Rodriguez MD Nov 17, 2017 08:32
[2017-11-17 08:33] LABS: ALBUMIN 2.6 GM/DL (3.4-5.0); ALKALINE PHOSPHATASE 104 U/L (45-117); ALT (GPT) 40 U/L (12-78); AST (GOT) 21 U/L (15-37); BICARBONATE 32.7 MEQ/L (21.0-32.0); BLOOD UREA NITROGEN 51 MG/DL (7-18); CALCIUM 8.3 MG/DL (8.5-10.1); CHLORIDE 99 MEQ/L (98-107); CREATININE 1.53 MG/DL (0.60-1.30); GLOMERULAR FILTRATION RATE 44 ML/MIN (>89); GLUCOSE,RANDOM 227 MG/DL (74-106); MAGNESIUM 2.2 MG/DL (1.5-2.5); PHOSPHORUS 3.1 MG/DL (2.5-4.9); SODIUM (NA) 141 MEQ/L (136-145); TOTAL BILIRUBIN ADULT 0.7 MG/DL (0.2-1.0); TOTAL PROTEIN 5.5 GM/DL (6.4-8.2)
--- NOTE | 2017-11-17 08:56 | PD.CONS ---
HPI Consult Requested By Primary Care Physician Brijesh Hernandez Jr, MD History of Present Illness 77-year-old male with a past medical history of O2 dependent COPD, ADRIAN, A. fib, diastolic CHF, HTN who presented from SNF for 3 days of worsening shortness of breath. Overnight 11/16 and the patient developed rapid A. fib with rates 150- 160s. He was started on amiodarone GTT and has since converted to NSR with rate currently 60s. Patient is currently awake, intubated, and is only able to participate in some of the history. SO at bedside who assists with history. (Wesley Barclay) Review of Systems ROS Limitations: Intubated (Wesley Barclay) Past Family Social History Allergies: Coded Allergies: aspirin (Unverified Allergy, Severe, 11/14/17) codeine (Verified Allergy, Severe, 11/14/17) Past Medical History Severe COPD, O2 dependent. Pt follows with Dr. Price as an outpt ADRIAN on BIPAP at night Hx of respiratory failure requiring mechanical ventilation A. fib CHF, chronic diastolic IDDM Anxiety 1st degree AV block Iron deficiency anemia HTN Hyperlipidemia GERD Gastroparesis Hx of tobacco use Past Surgical History Right knee surgery Right carpal tunnel release Cardiac ablation Reported Medications Reported Meds & Active Scripts Active Prednisone 10 Mg Tab 10 Mg PO DIRECTED 30 Days 30mg po bid x 3 days, 20mg po bid x 4 days then 20mg po daily Novolog Inj (Insulin Aspart) 100 Unit/Ml Inj 1-12 Units SQ ACHS SLIDING SCALE 30 Days Linezolid 600 Mg Tab 600 Mg PO Q12H 7 Days Reported Lopressor (Metoprolol Tartrate) 50 Mg Tab 50 Mg PO BID Duoneb (Ipratropium-Albuterol Neb) 0.5-2.5 Mg/3 Ml Neb 3 Ml NEB TID Tylenol (Acetaminophen) 325 Mg Tab 650 Mg PO Q4H PRN Combivent Respimat Inh (Ipratropium-Albuterol Inh) 20-100 Fdc/Act Aero 1 Puff INH QID Thera-M (Multiple Vitamins W/ Minerals) 1 Tab 1 Tab PO DAILY Diltiazem (Diltiazem HCl) 60 Mg Tab 60 Mg PO QID Potassium Chloride ER (Potassium Chloride) 10 Meq Cap 10 Meq PO BID Bumetanide 2 Mg Tab 2 Mg PO BID Eliquis (Apixaban) 5 Mg Tab 5 Mg PO BID Lactulose Liq (Lactulose) 10 Gm/15 Ml Soln 15 Ml PO BID PRN Colace (Docusate Sodium) 100 Mg Capsule 100 Mg PO BID Lantus Inj (Insulin Glargine) 1,000 Unit/10 Ml Vial 60 Units SQ HS Asmanex 120 Act Twisthaler (Mometasone 120 Act Inh) 220 Mcg/Act Inh 1 Puff INH HS Gabapentin 300 Mg Cap 300 Mg PO HS Atorvastatin (Atorvastatin Calcium) 80 Mg Tab 80 Mg PO HS Miralax Powder (Polyethylene Glycol 3350 Powder) 17 Gm Powd 17 Gm PO DAILY Mix and dissolve one measuring capful (17 grams) in water or juice. Stiolto Respimat Inh (Tiotropium-Olodaterol Inh) 2.5-2.5 Mcg/Act Aero 2 Puff INH DAILY Digoxin 0.125 Mg Tab 0.125 Mg PO DAILY Alfuzosin ER 24 HR 10 Mg Tab 10 Mg PO DAILY Omeprazole 20 Mg Tab 20 Mg PO DAILY Active Ordered Medications Current Medications Medications (Trade) Dose Ordered Sig/Yani Route Start Time Stop Time Status Last Admin (NS Flush) 2 ml UNSCH PRN IV FLUSH 11/14/17 15:45 (NS Flush) 2 ml BID IV FLUSH 11/14/17 21:00 11/17/17 08:25 (Tylenol) 650 mg Q6H PRN PO 11/14/17 15:45 11/15/17 20:11 (Pepcid Inj) 20 mg Q12HR IV PUSH 11/14/17 21:00 11/17/17 08:25 (Zofran Inj) 4 mg Q6H PRN IV PUSH 11/14/17 15:45 (Duoneb Neb) 1 ampule Q6HR NEB INH 11/14/17 16:00 11/17/17 07:21 (Duoneb Neb) 1 ampule Q2HR NEB PRN INH 11/14/17 15:45 11/16/17 15:55 (Heparin Inj) 5,000 units Q12H SQ 11/14/17 16:00 11/17/17 04:58 Miscellaneous Information 1 Q361D XX 11/14/17 15:45 (Chlorhexidine 2% Cloth) 3 pack Taper DAILY@04 TOP 11/15/17 04:00 11/11/18 03:59 11/17/17 04:00 (Chlorhexidine 2% Cloth) 3 pack UNSCH PRN TOP 11/14/17 15:45 (Ricarda-Colace) 1 tab BID PO 11/14/17 21:00 11/17/17 08:24 (Milk Of Magnesia Liq) 30 ml Q12H PRN PO 11/14/17 15:45 (Senokot) 17.2 mg Q12H PRN PO 11/14/17 15:45 (Dulcolax Supp) 10 mg DAILY PRN RECTAL 11/14/17 15:45 (Lactulose Liq) 30 ml DAILY PRN PO 11/14/17 15:45 Cefepime HCl 2000 mg/Sodium Chloride 100 ml @ 200 mls/hr Q8H IV 11/14/17 23:00 11/17/17 07:35 (SoluMEDROL INJ) 40 mg Q12H IV PUSH 11/14/17 17:00 11/17/17 05:46 Potassium Chloride 100 ml @ 50 mls/hr Q2H PRN IV 11/14/17 15:45 Potassium Chloride 100 ml @ 50 mls/hr Q2H PRN IV 11/14/17 15:45 (K-Lyte Cl Eff) 50 meq UNSCH PRN PO 11/14/17 15:45 Potassium Chloride 100 ml @ 25 mls/hr UNSCH PRN IV 11/14/17 15:45 Potassium Chloride 100 ml @ 50 mls/hr Q2H PRN IV 11/14/17 15:45 Magnesium Sulfate 4 gm/Sodium Chloride 100 ml @ 50 mls/hr UNSCH PRN IV 11/14/17 15:45 (Mag-Ox) 800 mg UNSCH PRN PO 11/14/17 15:45 Magnesium Sulfate 2 gm/Sodium Chloride 100 ml @ 50 mls/hr UNSCH PRN IV 11/14/17 15:45 (K-Phos) 2,000 mg Q4H PRN PO 11/14/17 15:45 Sodium Phosphate 30 mmol/Sodium Chloride 250 ml @ 42 mls/hr UNSCH PRN IV 11/14/17 15:45 (K-Phos) 2,000 mg UNSCH PRN PO/TUBE 11/14/17 15:45 Potassium Phosphate 30 mmol/ Sodium Chloride 260 ml @ 42 mls/hr UNSCH PRN IV 11/14/17 15:45 (Eliquis) 5 mg BID PO 11/14/17 21:00 11/17/17 08:24 (Lipitor) 80 mg HS PO 11/14/17 21:00 11/16/17 20:48 (Bumetanide) 2 mg BID PO 11/14/17 21:00 11/17/17 08:23 (Lanoxin) 0.125 mg DAILY PO 11/15/17 09:00 11/17/17 08:24 (Cardizem) 60 mg QID PO 11/14/17 18:00 11/17/17 08:24 (Lopressor) 50 mg BID PO 11/14/17 21:00 11/17/17 08:24 (KCl) 10 meq BID PO 11/14/17 21:00 11/17/17 08:24 Patient Own Medication PT OWN MED: Mometas... HS INH 11/14/17 21:00 Future Hold (Lopressor Inj) 2.5 mg Q6H PRN IV PUSH 11/15/17 09:15 11/15/17 23:56 Amiodarone HCl 450 mg/Sodium Chloride 259 ml @ 33.33 mls/ hr Q7H47M PRN IV 11/16/17 02:14 11/17/17 03:37 Dexmedetomidine HCl 1000 mcg/ Sodium Chloride 250 ml @ 4.9 mls/hr TITRATE PRN IV 11/16/17 09:15 Future Hold 11/16/17 09:24 Propofol 100 ml @ 2.895 mls/ hr TITRATE PRN IV 11/16/17 09:15 11/17/17 06:04 Fentanyl Citrate 250 ml @ 5 mls/hr TITRATE PRN IV 11/16/17 09:15 11/17/17 01:37 (NovoLOG SUPPLEMENTAL SCALE) 1 ACHS SLIDING SCALE SQ 11/16/17 21:00 11/17/17 07:53 (D50w (Vial) Inj) 50 ml UNSCH PRN IV PUSH 11/16/17 18:00 (Glucagon Inj) 1 mg UNSCH PRN OTHER 11/16/17 18:00 Family History Noncontributory Social History Hx of tobacco use, smoked 3ppd x 40years, quit in 1998 (Wesley Barclay) Physical Exam Vital Signs Vital Signs Date Time Temp Pulse Resp B/P (MAP) Pulse Ox O2 Delivery O2 Flow Rate FiO2 11/17/17 08:09 100 35 11/17/17 08:09 35 11/17/17 07:21 100 35 11/17/17 06:00 60 11/17/17 04:07 100 35 11/17/17 04:00 60 11/17/17 04:00 35 11/17/17 04:00 98.3 60 20 136/57 (83) 100 11/17/17 03:37 62 161/87 11/17/17 02:00 51 11/17/17 01:30 100 35 11/17/17 00:29 100 35 11/17/17 00:00 98.2 60 24 115/62 (79) 100 11/17/17 00:00 35 11/17/17 00:00 60 11/16/17 22:00 65 11/16/17 21:41 100 35 11/16/17 20:00 99.6 64 20 122/65 (84) 100 11/16/17 20:00 64 11/16/17 20:00 35 11/16/17 18:00 67 11/16/17 16:00 35 11/16/17 16:00 97.6 71 22 150/76 (100) 100 11/16/17 16:00 71 11/16/17 15:55 98 35 11/16/17 14:08 96 35 11/16/17 14:00 67 11/16/17 12:00 98.0 59 16 92/61 (71) 97 11/16/17 12:00 59 11/16/17 12:00 35 11/16/17 11:59 59 92/61 11/16/17 11:28 98 50 11/16/17 10:00 71 11/16/17 09:56 99 100 11/16/17 09:02 94 100 Physical Exam GENERAL: Well-developed well-nourished. In no acute distress. NECK: No carotid bruits. No JVD. CARDIOVASCULAR: Regular rate and rhythm. No murmur appreciated. RESPIRATORY: Clear to auscultation. Diminished breath sounds. MUSCULOSKELETAL: No clubbing or cyanosis. No edema. NEUROLOGICAL: Awake, ventilated, sedated, shakes head to some questions. Laboratory Laboratory Tests Test 11/16/17 10:44 11/16/17 11:30 11/17/17 07:45 Blood Gas Puncture Site RT RADIAL Blood Gas Patient Temperature 98.6 Blood Gas HCO3 37 Blood Gas Base Excess 10.5 Blood Gas Oxygen Saturation 97 Arterial Blood pH 7.29 Arterial Blood Partial Pressure CO2 81 Arterial Blood Partial Pressure O2 197 Arterial Blood Oxygen Content 14.5 Arterial Blood Carboxyhemoglobin 1.1 Arterial Blood Methemoglobin 1.4 Blood Gas Hemoglobin 10.3 Oxygen Delivery Device VENTILATOR Blood Gas Ventilator Setting PRVC//500/PEEP5 Blood Gas Inspired Oxygen 80 Urine Color YELLOW Urine Turbidity CLOUDY Urine pH 5.5 Urine Specific [place] 1.025 Urine Protein 30 Urine Glucose (UA) NEG Urine Ketones NEG Urine Occult Blood NEG Urine Nitrite NEG Urine Bilirubin NEG Urine Urobilinogen LESS THAN 2.0 Urine Leukocyte Esterase NEG Urine WBC LESS THAN 1 Urine Squamous Epithelial Cells <1 Urine Amorphous Sediment MOD Urine Bacteria RARE Urine Hyaline Casts 2 Urine Mucus FEW Microscopic Urinalysis Comment CATH-CULTURE IND White Blood Count 9.9 Red Blood Count 3.86 Hemoglobin 10.4 Hematocrit 32.0 Mean Corpuscular Volume 83.1 Mean Corpuscular Hemoglobin 26.9 Mean Corpuscular Hemoglobin Concent 32.3 Red Cell Distribution Width 17.4 Platelet Count 100 Mean Platelet Volume 7.8 Neutrophils (%) (Auto) 84.7 Lymphocytes (%) (Auto) 8.5 Monocytes (%) (Auto) 6.4 Eosinophils (%) (Auto) 0.0 Basophils (%) (Auto) 0.4 Neutrophils # (Auto) 8.4 Lymphocytes # (Auto) 0.8 Monocytes # (Auto) 0.6 Eosinophils # (Auto) 0.0 Basophils # (Auto) 0.0 CBC Comment DIFF FINAL Differential Comment Blood Urea Nitrogen 51 Creatinine 1.53 Random Glucose 227 Total Protein 5.5 Albumin 2.6 Calcium Level 8.3 Phosphorus Level 3.1 Magnesium Level 2.2 Alkaline Phosphatase 104 Aspartate Amino Transf (AST/SGOT) 21 Alanine Aminotransferase (ALT/SGPT) 40 Total Bilirubin 0.7 Sodium Level 141 Potassium Level 4.2 Chloride Level 99 Carbon Dioxide Level 32.7 Anion Gap 9 Estimat Glomerular Filtration Rate 44 Date/Time Source Procedure Growth Status 11/14/17 13:45 Blood Peripheral Aerobic Blood Culture - Preliminary NO GROWTH IN 2 DAYS Resulted 11/14/17 13:45 Blood Peripheral Anaerobic Blood Culture - Preliminary NO GROWTH IN 2 DAYS Resulted 11/15/17 16:50 Sputum Expectorated Sputum Gram Stain - Final Resulted 11/15/17 16:50 Sputum Culture - Preliminary Gram Negative Fredo Resulted 11/16/17 11:30 Urine Catheterized Urine Urine Culture Pending Received (Wesley Barclay) Result Diagram: 11/17/17 0745 11/17/17 0745 Imaging Last Impressions Chest X-Ray 11/17/17 0600 Signed Impressions: Service Date/Time: Friday, November 17, 2017 02:58 - CONCLUSION: 1. The lungs are clear. 2. Technical limitations precludes evaluation of the inferior mediastinum. Shaq Eisenberg MD (Wesley Barclay) Assessment and Plan Assessment and Plan 77-year-old male with a past medical history of O2 dependent COPD, ADRIAN, A. fib, diastolic CHF, HTN who presented from SNF for 3 days of worsening shortness of breath. Overnight 11/16 and the patient developed rapid A. fib with rates 150- 160s. He was started on amiodarone GTT and has since converted to NSR Atrial fibrillation with episodes of RVR: Currently NSR after starting on amiodarone GTT. Continue metoprolol and diltiazem. Creatinine increased today, hold digoxin for now. Continue on Eliquis for anticoagulation. (Wesley Barclay) Assessment and Plan transition to oral amiodarone 400 mg daily continue anticoagulation call with questions will sign off (Santy Parker MD) Wesley Barclay Nov 17, 2017 08:56 Santy Parker MD Nov 17, 2017 13:18
--- NOTE | 2017-11-17 12:41 | HHI.IDPN ---
Note Infectious Disease Note Patient is awake and alert. He is on the ventilator. CPAP in progress. Afebrile. White blood cell count is normal. 77-year-old, white male who presents to the Emergency Department with shortness of breath. The patient has a history of COPD and CHF. He usually uses CPAP at the assisted living facility. He was noted to have been developing coughing and shortness of breath over the past couple of days, and his states that he was coughing a lot yesterday and bringing up mostly phlegm and that he was restless and could not sleep. She states that he was mostly awake over the For 24 hours before being brought to emergency department. Recently treated at [facility] for pneumonia due to methicillin-resistant Staphylococcus aureus. His states that he was still on the oral antibiotic for pneumonia and that he has 2 more days of the medication to complete therapy with Zyvox. PAST MEDICAL HISTORY: COPD, CHF, atrial fibrillation, insulin-dependent diabetes mellitus, hypertension, hyperlipidemia, gastroesophageal reflux, gastroparesis, iron deficiency anemia, oxygen-dependent. PAST SURGICAL HISTORY: Right knee surgery, right carpal tunnel release, cardiac ablation treatment 2002. ALLERGIES: ASPIRIN, CODEINE. MEDICATIONS: Current Medications Medications (Trade) Dose Ordered Sig/Yani Route PRN Reason Start Time Stop Time Status Last Admin Dose Admin Sodium Chloride (NS Flush) 2 ml UNSCH PRN IV FLUSH FLUSH AFTER USING IV ACCESS 11/14/17 15:45 Sodium Chloride (NS Flush) 2 ml BID IV FLUSH 11/14/17 21:00 11/17/17 08:25 Acetaminophen (Tylenol) 650 mg Q6H PRN PO PAIN 1-10 AND/OR FEVER >101F 11/14/17 15:45 11/15/17 20:11 Famotidine (Pepcid Inj) 20 mg Q12HR IV PUSH 11/14/17 21:00 11/17/17 08:25 Ondansetron HCl (Zofran Inj) 4 mg Q6H PRN IV PUSH NAUSEA OR VOMITING 11/14/17 15:45 Albuterol/ Ipratropium (Duoneb Neb) 1 ampule Q6HR NEB INH 11/14/17 16:00 11/17/17 07:21 Albuterol/ Ipratropium (Duoneb Neb) 1 ampule Q2HR NEB PRN INH WHEEZING 11/14/17 15:45 11/16/17 15:55 Heparin Sodium (Porcine) (Heparin Inj) 5,000 units Q12H SQ 11/14/17 16:00 11/17/17 04:58 Miscellaneous Information 1 Q361D XX 11/14/17 15:45 Chlorhexidine Gluconate (Chlorhexidine 2% Cloth) 3 pack Taper DAILY@04 TOP 11/15/17 04:00 11/11/18 03:59 11/17/17 04:00 Chlorhexidine Gluconate (Chlorhexidine 2% Cloth) 3 pack UNSCH PRN TOP HYGIENIC CARE 11/14/17 15:45 Senna/Docusate Sodium (Ricarda-Colace) 1 tab BID PO 11/14/17 21:00 11/17/17 08:24 Magnesium Hydroxide (Milk Of Magnesia Liq) 30 ml Q12H PRN PO Mild constipation 11/14/17 15:45 Sennosides (Senokot) 17.2 mg Q12H PRN PO Moderate constipation 11/14/17 15:45 Bisacodyl (Dulcolax Supp) 10 mg DAILY PRN RECTAL SEVERE CONSITIPATION 11/14/17 15:45 Lactulose (Lactulose Liq) 30 ml DAILY PRN PO SEVERE CONSITIPATION 11/14/17 15:45 Cefepime HCl 2000 mg/Sodium Chloride 100 ml @ 200 mls/hr Q8H IV 11/14/17 23:00 11/17/17 07:35 Methylprednisolone Sodium Succinate (SoluMEDROL INJ) 40 mg Q12H IV PUSH 11/14/17 17:00 11/17/17 05:46 Potassium Chloride 100 ml @ 50 mls/hr Q2H PRN IV For Potassium 2.8 - 3.2 mEq/L 11/14/17 15:45 Potassium Chloride 100 ml @ 50 mls/hr Q2H PRN IV For Potassium 2.8 - 3.2 mEq/L 11/14/17 15:45 Potassium Bicarb/ Potassium Chloride (K-Lyte Cl Eff) 50 meq UNSCH PRN PO For Potassium 3.3 - 3.5 mEq/L 11/14/17 15:45 Potassium Chloride 100 ml @ 25 mls/hr UNSCH PRN IV For Potassium 3.3 - 3.5 mEq/L 11/14/17 15:45 Potassium Chloride 100 ml @ 50 mls/hr Q2H PRN IV For Potassium 3.3 - 3.5 mEq/L 11/14/17 15:45 Magnesium Sulfate 4 gm/Sodium Chloride 100 ml @ 50 mls/hr UNSCH PRN IV For Magnesium 0.9 - 1.1 mg/dL 11/14/17 15:45 Magnesium Oxide (Mag-Ox) 800 mg UNSCH PRN PO For Magnesium 1.2 - 1.6 mg/dL 11/14/17 15:45 Magnesium Sulfate 2 gm/Sodium Chloride 100 ml @ 50 mls/hr UNSCH PRN IV For Magnesium 1.2 - 1.6 mg/dL 11/14/17 15:45 Potassium Phosphate (K-Phos) 2,000 mg Q4H PRN PO For Phosphorus < 2.5 mg/dL 11/14/17 15:45 Sodium Phosphate 30 mmol/Sodium Chloride 250 ml @ 42 mls/hr UNSCH PRN IV For Phosphorus < 2.5 mg/dL 11/14/17 15:45 Potassium Phosphate (K-Phos) 2,000 mg UNSCH PRN PO/TUBE SEE LABEL COMMENTS 11/14/17 15:45 Potassium Phosphate 30 mmol/ Sodium Chloride 260 ml @ 42 mls/hr UNSCH PRN IV SEE LABEL COMMENTS 11/14/17 15:45 Apixaban (Eliquis) 5 mg BID PO 11/14/17 21:00 11/17/17 08:24 Atorvastatin Calcium (Lipitor) 80 mg HS PO 11/14/17 21:00 11/16/17 20:48 Bumetanide (Bumetanide) 2 mg BID PO 11/14/17 21:00 11/17/17 08:23 Digoxin (Lanoxin) 0.125 mg DAILY PO 11/15/17 09:00 Future Hold 11/17/17 08:24 Diltiazem HCl (Cardizem) 60 mg QID PO 11/14/17 18:00 11/17/17 08:24 Metoprolol Tartrate (Lopressor) 50 mg BID PO 11/14/17 21:00 11/17/17 08:24 Potassium Chloride (KCl) 10 meq BID PO 11/14/17 21:00 11/17/17 08:24 Patient Own Medication PT OWN MED: Mometas... HS INH 11/14/17 21:00 Future Hold Metoprolol Tartrate (Lopressor Inj) 2.5 mg Q6H PRN IV PUSH RAPID HEART RATE 11/15/17 09:15 11/15/17 23:56 Amiodarone HCl 450 mg/Sodium Chloride 259 ml @ 33.33 mls/ hr Q7H47M PRN IV Per Protocol 11/16/17 02:14 11/17/17 03:37 Dexmedetomidine HCl 1000 mcg/ Sodium Chloride 250 ml @ 4.9 mls/hr TITRATE PRN IV SEDATION 11/16/17 09:15 Future Hold 11/16/17 09:24 Propofol 100 ml @ 2.895 mls/ hr TITRATE PRN IV SEDATION 11/16/17 09:15 11/17/17 06:04 Fentanyl Citrate 250 ml @ 5 mls/hr TITRATE PRN IV SEDATION 11/16/17 09:15 11/17/17 01:37 Insulin Aspart (NovoLOG SUPPLEMENTAL SCALE) 1 ACHS SLIDING SCALE SQ 11/16/17 21:00 11/17/17 07:53 Dextrose (D50w (Vial) Inj) 50 ml UNSCH PRN IV PUSH HYPOGLYCEMIA-SEE COMMENTS 11/16/17 18:00 Glucagon (Glucagon Inj) 1 mg UNSCH PRN OTHER HYPOGLYCEMIA-SEE COMMENTS 11/16/17 18:00 Hydralazine HCl (Apresoline Inj) 20 mg Q4H PRN IV PUSH SYS BP GREATER THAN 160 MMHG 11/17/17 12:00 OBJECTIVE: Vital Signs Date Time Temp Pulse Resp B/P (MAP) Pulse Ox O2 Delivery O2 Flow Rate FiO2 11/17/17 11:50 100 35 11/17/17 10:00 64 11/17/17 08:09 100 35 11/17/17 08:09 35 11/17/17 08:00 98.4 62 21 130/63 (85) 100 11/17/17 08:00 35 11/17/17 08:00 62 11/17/17 07:21 100 35 11/17/17 06:00 60 11/17/17 04:07 100 35 11/17/17 04:00 60 11/17/17 04:00 35 11/17/17 04:00 98.3 60 20 136/57 (83) 100 11/17/17 03:37 62 161/87 11/17/17 02:00 51 11/17/17 01:30 100 35 11/17/17 00:29 100 35 11/17/17 00:00 98.2 60 24 115/62 (79) 100 11/17/17 00:00 35 11/17/17 00:00 60 11/16/17 22:00 65 11/16/17 21:41 100 35 11/16/17 20:00 99.6 64 20 122/65 (84) 100 11/16/17 20:00 64 11/16/17 20:00 35 11/16/17 18:00 67 11/16/17 16:00 35 11/16/17 16:00 97.6 71 22 150/76 (100) 100 11/16/17 16:00 71 11/16/17 15:55 98 35 11/16/17 14:08 96 35 11/16/17 14:00 67 Laboratory Tests Test 11/16/17 04:40 11/17/17 07:45 White Blood Count 8.4 TH/MM3 9.9 TH/MM3 Red Blood Count 3.86 MIL/MM3 3.86 MIL/MM3 Hemoglobin 10.4 GM/DL 10.4 GM/DL Hematocrit 32.2 % 32.0 % Mean Corpuscular Volume 83.3 FL 83.1 FL Mean Corpuscular Hemoglobin 27.0 PG 26.9 PG Mean Corpuscular Hemoglobin Concent 32.4 % 32.3 % Red Cell Distribution Width 16.7 % 17.4 % Platelet Count 98 TH/MM3 100 TH/MM3 Mean Platelet Volume 8.0 FL 7.8 FL Neutrophils (%) (Auto) 85.3 % 84.7 % Lymphocytes (%) (Auto) 10.4 % 8.5 % Monocytes (%) (Auto) 4.2 % 6.4 % Eosinophils (%) (Auto) 0.0 % 0.0 % Basophils (%) (Auto) 0.1 % 0.4 % Neutrophils # (Auto) 7.2 TH/MM3 8.4 TH/MM3 Lymphocytes # (Auto) 0.9 TH/MM3 0.8 TH/MM3 Monocytes # (Auto) 0.4 TH/MM3 0.6 TH/MM3 Eosinophils # (Auto) 0.0 TH/MM3 0.0 TH/MM3 Basophils # (Auto) 0.0 TH/MM3 0.0 TH/MM3 CBC Comment AUTO DIFF DIFF FINAL Differential Comment AUTO DIFF CONFIRMED Platelet Estimate LOW Platelet Morphology Comment NORMAL Laboratory Tests Test 11/16/17 04:40 11/17/17 07:45 Blood Urea Nitrogen 34 MG/DL 51 MG/DL Creatinine 0.99 MG/DL 1.53 MG/DL Random Glucose 76 MG/DL 227 MG/DL Calcium Level 7.6 MG/DL 8.3 MG/DL Sodium Level 143 MEQ/L 141 MEQ/L Potassium Level 3.9 MEQ/L 4.2 MEQ/L Chloride Level 96 MEQ/L 99 MEQ/L Carbon Dioxide Level 42.2 MEQ/L 32.7 MEQ/L Anion Gap 5 MEQ/L 9 MEQ/L Estimat Glomerular Filtration Rate 73 ML/MIN 44 ML/MIN Total Protein 5.5 GM/DL Albumin 2.6 GM/DL Phosphorus Level 3.1 MG/DL Magnesium Level 2.2 MG/DL Alkaline Phosphatase 104 U/L Aspartate Amino Transf (AST/SGOT) 21 U/L Alanine Aminotransferase (ALT/SGPT) 40 U/L Total Bilirubin 0.7 MG/DL Microbiology Date/Time Source Procedure Growth Status 11/14/17 13:45 Blood Peripheral Aerobic Blood Culture - Preliminary NO GROWTH IN 3 DAYS Resulted 11/14/17 13:45 Blood Peripheral Anaerobic Blood Culture - Preliminary NO GROWTH IN 3 DAYS Resulted 11/14/17 13:40 Blood Peripheral Aerobic Blood Culture - Preliminary NO GROWTH IN 3 DAYS Resulted 11/14/17 13:40 Blood Peripheral Anaerobic Blood Culture - Preliminary NO GROWTH IN 3 DAYS Resulted 11/15/17 16:50 Sputum Expectorated Sputum Gram Stain - Final Complete 11/15/17 16:50 Sputum Culture - Final Klebsiella Pneumoniae Complete 11/16/17 11:30 Urine Catheterized Urine Urine Culture - Preliminary NO GROWTH IN 24 HOURS. Resulted IMAGING: Chest X-Ray 11/16/17 0600 Signed Impressions: Service Date/Time: Thursday, November 16, 2017 03:18 - CONCLUSION: No infiltrates seen. Shaq Eisenberg MD Chest X-Ray 11/16/17 0000 Signed Impressions: Service Date/Time: Thursday, November 16, 2017 09:56 - CONCLUSION: 1. ET tube in good position. 2. No pneumothorax. Erik Eason MD Chest X-Ray 11/15/17 0000 Signed Impressions: Service Date/Time: Wednesday, November 15, 2017 09:32 - CONCLUSION: 1. No acute abnormality or significant interval change. Anil Aldana MD PHYSICAL EXAMINATION: GENERAL: Sedated. Intubated. A week. HEENT: Unable to assess adequately since patient is on the ventilator. NECK: No swelling or adenopathy. LUNGS: Bilateral basilar rhonchi. HEART: Regular without audible murmurs. ABDOMEN: Bowel sounds present, high-pitched. Obese, soft. No tenderness EXTREMITIES: 1+ edema of the lower extremities, bilateral. No clubbing or cyanosis. SKIN: No diffuse rash. NEUROLOGIC: Nonfocal. PSYCHIATRIC: Calm and cooperative. IMPRESSION: 1. Probable sepsis. 2. Pneumonia due to Klebsiella. 3. Acute respiratory failure. Intubated. 4. Leukocytosis. WBC improved. Now normal. 4. History of chronic obstructive pulmonary disease and recent chronic obstructive pulmonary disease exacerbation. Source of sepsis, likely is pneumonia. RECOMMENDATIONS: 1. Change cefepime to ceftriaxone. 2. Monitor medical status. Tom Long MD Nov 17, 2017 12:41
[2017-11-17] MEDS: cefTRIAXone INJ 1,000 MG in SODIUM CHLORIDE 0.9% INJ 100 ML IV SCH (13:50)
[2017-11-17] MEDS: hydrALAZINE HCL 20 MG/ML VIAL IV PUSH PRN ×2 (14:04→19:36)
[2017-11-17] MEDS: SODIUM CHLORIDE 0.9% FLUSH 10 ML FLUSH IV FLUSH PRN (14:05)
[2017-11-17] MEDS: ATORVASTATIN 80 MG TAB PO SCH (21:37)
[2017-11-18] VITALS (17 sets, daily range): BP systolic 123–174; BP diastolic 63–105; PULSE 51–124; RESP 20–22; TEMP 98.3–98.7; O2SAT 93–100
[2017-11-18] MEDS: RESP: ALBUTEROL 2.5 MG/IPRATROPIUM 0.5 MG NEB (SCH) INH ×2 (03:21→07:37)
[2017-11-18] MEDS: CHLORHEXIDINE GLUCONATE 2 % 1 PACK (2 CLOTHS) TOP SCH (03:56)
[2017-11-18] MEDS: HEPARIN SODIUM - SQ 10,000 UNITS/ML VIAL SQ SCH ×2 (04:27→16:00)
[2017-11-18] MEDS: methylPREDNISolone SOD SUCC 40 MG/1 ML VIAL IV PUSH SCH (04:27)
[2017-11-18 05:14] LABS: AUTOMATED NEUTROPHIL # 11.8 TH/MM3 (1.8-7.7); BASOPHIL # 0.1 TH/MM3 (0-0.2); BASOPHIL % 0.4 % (0.0-2.0); HEMATOCRIT 34.8 % (39.0-51.0); HEMOGLOBIN 11.1 GM/DL (13.0-17.0); LYMPH % 6.4 % (9.0-44.0); LYMPHOCYTE # 0.9 TH/MM3 (1.0-4.8); MEAN CELL VOLUME 84.3 FL (80.0-100.0); MEAN CORPUSCULAR HEMOGLOBIN 26.9 PG (27.0-34.0); MEAN CORPUSCULAR HGB CONC 31.9 % (32.0-36.0); MEAN PLATELET VOLUME 8.1 FL (7.0-11.0); MONO % 5.4 % (0.0-8.0); MONOCYTE # 0.7 TH/MM3 (0-0.9); NEUT % 87.8 % (16.0-70.0); PLATELET COUNT 115 TH/MM3 (150-450); RED BLOOD COUNT 4.13 MIL/MM3 (4.50-5.90); RED CELL DISTRIBUTION WIDTH 17.8 % (11.6-17.2); WHITE BLOOD COUNT 13.5 TH/MM3 (4.0-11.0)
[2017-11-18 05:41] LABS: BICARBONATE 40.1 MEQ/L (21.0-32.0); CALCIUM 8.3 MG/DL (8.5-10.1); CREATININE 1.58 MG/DL (0.60-1.30); MAGNESIUM 2.4 MG/DL (1.5-2.5); PHOSPHORUS 5.1 MG/DL (2.5-4.9)
--- NOTE | 2017-11-18 06:20 | RADRPT ---
EXAM DATE/TIME: 11/18/2017 04:26 [place] COMPARISON: CHEST SINGLE AP, November 17, 2017, 2:58. INDICATIONS : Shortness of breath, possible pulmonary disease. MEDICAL HISTORY : Chronic obstructive pulmonary disease. SURGICAL HISTORY : None. ENCOUNTER: Subsequent ACUITY: 3 days PAIN SCORE: Non-responsive. LOCATION: Bilateral chest FINDINGS: ET tube tip well above the toña. Gastric tube traverses the [id number]. There is persisting co nsolidation in the left lower lobe postop the right lung is clear. The heart is normal size. CONCLUSION: Left lower lobe consolidation. Shaq Eisenberg MD on November 18, 2017 at 6:17 Board Certified Radiologist. This report was verified electronically.
[2017-11-18] MEDS: DILTIAZEM HCL 60 MG TAB PO SCH ×3 (07:48→18:00)
[2017-11-18] MEDS: APIXABAN 5 MG TABLET PO SCH (07:48)
[2017-11-18] MEDS: DOCUSATE SODIUM 50 MG/SENNA 8.6 MG TAB PO SCH (07:49)
[2017-11-18] MEDS: METOPROLOL TARTRATE 50 MG TAB PO SCH (07:49)
[2017-11-18] MEDS: POTASSIUM CHLORIDE 10 MEQ CAP PO SCH (07:50)
[2017-11-18] MEDS: FAMOTIDINE 20 MG/2 ML VIAL IV PUSH SCH (07:50)
[2017-11-18] MEDS: BUMETANIDE 1 MG TAB PO SCH (07:50)
[2017-11-18] MEDS: INSULIN ASPART SUPPLEMENTAL SCALE SQ SCH ×2 (07:51→18:00)
[2017-11-18] MEDS: SODIUM CHLORIDE 0.9% FLUSH 10 ML FLUSH IV FLUSH SCH ×2 (07:51→21:34)
[2017-11-18] MEDS: hydrALAZINE HCL 20 MG/ML VIAL IV PUSH PRN ×2 (10:12→16:16)
--- NOTE | 2017-11-18 11:45 | HHI.PR ---
Subjective Remarks This clinical encounter Took place on 11/17/2017 the notice being done on 11/18/2017 the patient intubated on mechanical ventilator. he is spontaneously breathing through a CPAP trial. the patient denied any complaints or shortness of Breath he seems irritated from the ET tube Objective Vital Signs Date Time Temp Pulse Resp B/P (MAP) Pulse Ox O2 Delivery O2 Flow Rate FiO2 11/18/17 10:00 61 11/18/17 08:00 35 11/18/17 08:00 60 11/18/17 08:00 98.7 62 172/86 (114) 100 11/18/17 07:37 99 35 11/18/17 07:37 35 11/18/17 06:00 51 11/18/17 05:56 100 35 11/18/17 04:10 96 35 11/18/17 04:00 98.6 59 20 123/63 (83) 98 11/18/17 04:00 35 11/18/17 04:00 59 11/18/17 02:00 55 11/18/17 00:00 35 11/18/17 00:00 67 11/18/17 00:00 98.5 67 22 142/70 (94) 99 11/17/17 23:49 98 35 11/17/17 22:00 114 11/17/17 21:32 100 169/89 11/17/17 20:00 98.8 83 20 135/63 (87) 97 11/17/17 20:00 35 11/17/17 20:00 83 11/17/17 19:45 100 35 11/17/17 18:00 75 11/17/17 17:45 98 35 11/17/17 16:20 96 35 11/17/17 16:00 74 11/17/17 16:00 98.6 87 167/76 (106) 95 11/17/17 16:00 35 11/17/17 14:00 58 11/17/17 12:00 98.5 57 168/82 (110) 98 11/17/17 12:00 57 11/17/17 12:00 35 11/17/17 11:50 100 35 I/O 11/17/17 11/17/17 11/17/17 11/18/17 11/18/17 11/18/17 07:00 15:00 23:00 07:00 15:00 23:00 Intake Total 645 ml 237 ml 127 ml Output Total 450 ml 800 ml 1325 ml Balance 195 ml -563 ml -1198 ml IV Total 609 ml Tube Feeding 36 ml 147 ml 127 ml Tube Irrigant 90 ml Output Urine Total 450 ml 800 ml 1325 ml # Bowel Movements 0 0 0 Result Diagram: 11/18/1741911/18/17419 Objective Remarks General appearance: Intubated, neck: Trachea midline lungs: Bilateral basilar crackles no wheezing Heart: S1-S2 irregular tachycardic abdomen: Obese extremities: Positive edema neurologic: Awake more the extremities followed commands All labs reviewed in details and the imaging was reviewed as well Assessment and Plan Assessment and Plan ventilator dependent respiratory failure Pneumonia COPD congestive heart failure AFib with RVR obesity volume overload chronic hypoxemia Overall the patient seems to be doing well. I would recommend to continue with weaning trial. The patient is likely to be extubated within 24 hr. I agree with IV steroids right now. Continue bronchodilators. No optimize volume status. He will need aggressive physiotherapy. He will need to continue using his a trilogy and the noninvasive ventilation after extubation. Rest of medical care is deferred to the training lead. Johnny Price MD Nov 18, 2017 11:45
--- NOTE | 2017-11-18 12:09 | HHI.CCPN ---
Subjective Remarks/Hospital Course This is a 77-year-old male with a medical history significant for COPD, CHF, A. fib, diabetes, that presented to emergency department from [facility] for evaluation of worsening shortness of breath over the last 3 days. The patient was been given Solu-Medrol 125 mg and 2 albuterol treatments enroute to ED. Upon presentation to the ED the patient was on a nonrebreather. He was tachypneic and tachycardic. Patient's medical history significant for MRSA pneumonia previously admitted on 10/27/16 for approximately 12 days at [facility]. The patient is normally on 2.5 L/m nasal cannula O2 home dependency, and he lives with ( normally) a PCO2 in the 80s according to his . Patient was then discharged to [facility], and then transferred to [facility] for rehabilitation. He has been on an unknown antibiotic per the family and steroids for the last 3 days. Laboratory and imaging studies were performed with noted elevation in CO2 The patient was given empiric antibiotics in the ED and placed on BiPAP. Critical care medicine was consulted. Subjective: 11/15: Patient maintained on BiPAP throughout the night O2 saturations 97-98% on FiO2 of 0.40. Hemodynamically stable. Attempts made to wean patient to nasal cannula this a.m. unsuccessful, patient's O2 saturation in the 70s, patient placed back on BiPAP. Chest x-ray pending WBC count significantly diminished, leukocytosis resolved. Patient extremely anxious, Precedex infusion initiated. 11/16: Late entry note. Patient seen 10 AM. Overnight the patient converted to A. fib RVR, despite being on Cardizem 4 times a day and metoprolol twice a day- home medications, the patient received IV Cardizem followed by amiodarone infusion. Per report the patient became hypotensive, Cardizem discontinued. Amiodarone continued. Early this a.m. patient was resting comfortably A. fib rate controlled rate. The patient suddenly converted to A. fib RVR heart rate 150s-160s, acute hypoxemic respiratory failure, requiring intubation. The patient was intubated uneventfully and continues on amiodarone at 0.5 mg/hour, rate now controlled in conjunction with sedation. Cardiology consulted, his swimming pool cleaner is Dr. Parker X-ray revealed lung consolidation improved, chest x- ray clear. Plan for CPAP trials in a.m.. 11/17: No acute events overnight. Patient had 1 short 8 beat run of V. tach last evening was self resolution, electrolytes within normal limits. The patient continues on amiodarone 0.5 mg/hr. CPAP trials initiated this a.m.. Tube feeds initiated at trickle feeds. Patient converted to sinus rhythm at 2 AM. 11/18 Patient remains sedated and intubated. Afebrile. Objective Vital Signs Date Time Temp Pulse Resp B/P (MAP) Pulse Ox O2 Delivery O2 Flow Rate FiO2 11/18/17 11:33 100 35 11/18/17 10:00 61 11/18/17 08:00 98.7 172/86 (114) 11/18/17 04:00 20 11/16/17 07:26 High Flow Nasal Cannula 40.00 Intake and Output 11/18/17 11/18/17 11/18/17 07:59 15:59 23:59 Intake Total 127 ml Output Total 1325 ml Balance -1198 ml Result Diagram: 11/18/17 0420 11/18/17 0420 Other Results Laboratory Tests Test 11/18/17 04:20 11/18/17 05:31 White Blood Count 13.5 TH/MM3 Red Blood Count 4.13 MIL/MM3 Hemoglobin 11.1 GM/DL Hematocrit 34.8 % Mean Corpuscular Volume 84.3 FL Mean Corpuscular Hemoglobin 26.9 PG Mean Corpuscular Hemoglobin Concent 31.9 % Red Cell Distribution Width 17.8 % Platelet Count 115 TH/MM3 Mean Platelet Volume 8.1 FL Neutrophils (%) (Auto) 87.8 % Lymphocytes (%) (Auto) 6.4 % Monocytes (%) (Auto) 5.4 % Eosinophils (%) (Auto) 0.0 % Basophils (%) (Auto) 0.4 % Neutrophils # (Auto) 11.8 TH/MM3 Lymphocytes # (Auto) 0.9 TH/MM3 Monocytes # (Auto) 0.7 TH/MM3 Eosinophils # (Auto) 0.0 TH/MM3 Basophils # (Auto) 0.1 TH/MM3 CBC Comment DIFF FINAL Differential Comment Blood Urea Nitrogen 56 MG/DL Creatinine 1.58 MG/DL Random Glucose 257 MG/DL Calcium Level 8.3 MG/DL Phosphorus Level 5.1 MG/DL Magnesium Level 2.4 MG/DL Sodium Level 144 MEQ/L Potassium Level 4.8 MEQ/L Chloride Level 99 MEQ/L Carbon Dioxide Level 40.1 MEQ/L Anion Gap 5 MEQ/L Estimat Glomerular Filtration Rate 43 ML/MIN Blood Gas Puncture Site LT RADIAL Blood Gas Patient Temperature 98.6 Blood Gas HCO3 38 mmol/L Blood Gas Base Excess 11.0 mmol/L Blood Gas Oxygen Saturation 92 % Arterial Blood pH 7.30 Arterial Blood Partial Pressure CO2 78 mmHg Arterial Blood Partial Pressure O2 82 mmHg Arterial Blood Oxygen Content 14.5 Vol % Arterial Blood Carboxyhemoglobin 1.3 % Arterial Blood Methemoglobin 1.4 % Blood Gas Hemoglobin 11.1 G/DL Oxygen Delivery Device VENTILATOR Blood Gas Ventilator Setting CPAP /PS 7/PEEP 5 Blood Gas Inspired Oxygen 35 % Imaging Last Impressions Chest X-Ray 11/16/17 0600 Signed Impressions: Service Date/Time: Thursday, November 16, 2017 03:18 - CONCLUSION: No infiltrates seen. Shaq Eisenberg MD Last Impressions Chest X-Ray 11/14/17 1241 Signed Impressions: Service Date/Time: Tuesday, November 14, 2017 12:51 - CONCLUSION: No acute disease. Resolved atelectasis versus airspace consolidation involving the left lower lobe. Jocelyn Aguila MD Objective Remarks GENERAL: Patient is 77 yo intubated and sedated SKIN: Warm and dry. HEAD: Normocephalic. EYES: No scleral icterus. No injection or drainage. NECK: Supple, trachea midline. No JVD or lymphadenopathy. CARDIOVASCULAR: Regular rate and rhythm without murmurs, gallops, or rubs. RESPIRATORY: Breath sounds equal bilaterally. No accessory muscle use. GASTROINTESTINAL: Abdomen soft, non-tender, nondistended. MUSCULOSKELETAL: No cyanosis, or edema. Neuro: sedated A/P Problem List: (1) A-fib ICD Code: I48.91 - Unspecified atrial fibrillation (2) CHF (congestive heart failure) ICD Code: I50.9 - Heart failure, unspecified Status: Chronic (3) HTN (hypertension) ICD Code: I10 - Essential (primary) hypertension Status: Chronic (4) ADRIAN (obstructive sleep apnea) ICD Code: G47.33 - Obstructive sleep apnea (adult) (pediatric) Status: Chronic (5) MRSA pneumonia ICD Code: J15.212 - Pneumonia due to Methicillin resistant Staphylococcus aureus Status: Acute (6) Diabetes mellitus type 2, insulin dependent ICD Code: E11.9 - Type 2 diabetes mellitus without complications; Z79.4 - oysterman (current) use of insulin Status: Chronic (7) COPD (chronic obstructive pulmonary disease) ICD Code: J44.9 - Chronic obstructive pulmonary disease, unspecified Status: Acute (8) Respiratory distress ICD Code: R06.03 - Acute respiratory distress Status: Acute (9) Leukocytosis ICD Code: D72.829 - Elevated white blood cell count, unspecified Status: Acute (10) Lung consolidation ICD Code: J18.1 - Lobar pneumonia, unspecified organism Status: Acute (11) Anxiety ICD Code: F41.9 - Anxiety disorder, unspecified Status: Chronic Assessment and Plan Plan by systems: Neurologic: Anxiety disorder On Diprivan and fentanyl infusions to maintain ventilator synchrony and sedation Tylenol for pain and fever. 100.5 Daily sedation vacation Hold gabapentin 300mmg q HS home med Respiratory: COPD exacerbation Pneumonia-MRSA Obstructive sleep apnea Home O2 dependency 11/16-intubated 8.0 ETT at 23 cm at the teeth Continue with vent support keep sats >92% Bronchodilators, methylprednisolone 40 mg every 12 hours Pulmonology following- Dr Price, SBT and possible extubation today Will give Diamox 250mg IV x1 Cardiovascular: A. fib RVR History of CHF CAD Continue home medications Eliquis 5 mg twice a day, atorvastatin 80 daily at bedtime, metoprolol 50 mg twice a day, Cardizem 60 mg 4 times a day . Cards is following- Dr. Parker- Renal: Monitor renal function, electrolytes replacement per protocol. d/c PO Bumex ( worsening renal function) FEN/GI: Electrolyte derangement GERD Continue tube feeds- On Jevity 1.5, Pepcid for GI prophylaxis Heme/ID: Pneumonia MRSA positive-on 10/27 Leukocytosis ID following- Antibiotics per ID ( Rocephin) monitor for signs of infection ( Fever, WBC) 11/14 Obtain blood , urine - NGTD 11/16 Obtain sputum cultures- Kleb pneumonia Monitor CBC Endocrine: Glucose monitoring per ICU protocol-low dose regimen -- SSI Prophylaxis: GI Prophylaxis Famotidine BID DVT Prophylaxis -- SCDs Continue home dose Eliquis 5 mg BID Lines: PIVs 2. Level 3 Problem Qualifiers (1) COPD (chronic obstructive pulmonary disease): Qualified Codes: J44.9 - Chronic obstructive pulmonary disease, unspecified (2) Leukocytosis: Qualified Codes: D72.829 - Elevated white blood cell count, unspecified Carmen Richard MD Nov 18, 2017 12:09
[2017-11-18] MEDS: cefTRIAXone INJ 1,000 MG in SODIUM CHLORIDE 0.9% INJ 100 ML IV SCH (12:21)
--- NOTE | 2017-11-18 14:00 | HHI.IDPN ---
Note Infectious Disease Note Patient is awake and alert. Responsive. Remains on the ventilator. Continued to receive CPAP. Afebrile. 77-year-old, white male who presents to the Emergency Department with shortness of breath. The patient has a history of COPD and CHF. He usually uses CPAP at the assisted living facility. He was noted to have been developing coughing and shortness of breath over the past couple of days, and his states that he was coughing a lot yesterday and bringing up mostly phlegm and that he was restless and could not sleep. She states that he was mostly awake over the For 24 hours before being brought to emergency department. Recently treated at [facility] for pneumonia due to methicillin-resistant Staphylococcus aureus. His states that he was still on the oral antibiotic for pneumonia and that he has 2 more days of the medication to complete therapy with Zyvox. PAST MEDICAL HISTORY: COPD, CHF, atrial fibrillation, insulin-dependent diabetes mellitus, hypertension, hyperlipidemia, gastroesophageal reflux, gastroparesis, iron deficiency anemia, oxygen-dependent. PAST SURGICAL HISTORY: Right knee surgery, right carpal tunnel release, cardiac ablation treatment 2002. ALLERGIES: ASPIRIN, CODEINE. MEDICATIONS: Current Medications Medications (Trade) Dose Ordered Sig/Yani Route PRN Reason Start Time Stop Time Status Last Admin Dose Admin Sodium Chloride (NS Flush) 2 ml UNSCH PRN IV FLUSH FLUSH AFTER USING IV ACCESS 11/14/17 15:45 11/17/17 14:05 Sodium Chloride (NS Flush) 2 ml BID IV FLUSH 11/14/17 21:00 11/18/17 07:51 Acetaminophen (Tylenol) 650 mg Q6H PRN PO PAIN 1-10 AND/OR FEVER >101F 11/14/17 15:45 11/15/17 20:11 Famotidine (Pepcid Inj) 20 mg Q12HR IV PUSH 11/14/17 21:00 11/18/17 07:50 Ondansetron HCl (Zofran Inj) 4 mg Q6H PRN IV PUSH NAUSEA OR VOMITING 11/14/17 15:45 Albuterol/ Ipratropium (Duoneb Neb) 1 ampule Q6HR NEB INH 11/14/17 16:00 11/18/17 07:37 Albuterol/ Ipratropium (Duoneb Neb) 1 ampule Q2HR NEB PRN INH WHEEZING 11/14/17 15:45 11/16/17 15:55 Heparin Sodium (Porcine) (Heparin Inj) 5,000 units Q12H SQ 11/14/17 16:00 11/18/17 04:27 Miscellaneous Information 1 Q361D XX 11/14/17 15:45 Chlorhexidine Gluconate (Chlorhexidine 2% Cloth) 3 pack Taper DAILY@04 TOP 11/15/17 04:00 11/11/18 03:59 11/18/17 03:56 Chlorhexidine Gluconate (Chlorhexidine 2% Cloth) 3 pack UNSCH PRN TOP HYGIENIC CARE 11/14/17 15:45 Senna/Docusate Sodium (Ricarda-Colace) 1 tab BID PO 11/14/17 21:00 11/18/17 07:49 Magnesium Hydroxide (Milk Of Magnesia Liq) 30 ml Q12H PRN PO Mild constipation 11/14/17 15:45 Sennosides (Senokot) 17.2 mg Q12H PRN PO Moderate constipation 11/14/17 15:45 Bisacodyl (Dulcolax Supp) 10 mg DAILY PRN RECTAL SEVERE CONSITIPATION 11/14/17 15:45 Lactulose (Lactulose Liq) 30 ml DAILY PRN PO SEVERE CONSITIPATION 11/14/17 15:45 Potassium Chloride 100 ml @ 50 mls/hr Q2H PRN IV For Potassium 2.8 - 3.2 mEq/L 11/14/17 15:45 Potassium Chloride 100 ml @ 50 mls/hr Q2H PRN IV For Potassium 2.8 - 3.2 mEq/L 11/14/17 15:45 Potassium Bicarb/ Potassium Chloride (K-Lyte Cl Eff) 50 meq UNSCH PRN PO For Potassium 3.3 - 3.5 mEq/L 11/14/17 15:45 Potassium Chloride 100 ml @ 25 mls/hr UNSCH PRN IV For Potassium 3.3 - 3.5 mEq/L 11/14/17 15:45 Potassium Chloride 100 ml @ 50 mls/hr Q2H PRN IV For Potassium 3.3 - 3.5 mEq/L 11/14/17 15:45 Magnesium Sulfate 4 gm/Sodium Chloride 100 ml @ 50 mls/hr UNSCH PRN IV For Magnesium 0.9 - 1.1 mg/dL 11/14/17 15:45 Magnesium Oxide (Mag-Ox) 800 mg UNSCH PRN PO For Magnesium 1.2 - 1.6 mg/dL 11/14/17 15:45 Magnesium Sulfate 2 gm/Sodium Chloride 100 ml @ 50 mls/hr UNSCH PRN IV For Magnesium 1.2 - 1.6 mg/dL 11/14/17 15:45 Potassium Phosphate (K-Phos) 2,000 mg Q4H PRN PO For Phosphorus < 2.5 mg/dL 11/14/17 15:45 Sodium Phosphate 30 mmol/Sodium Chloride 250 ml @ 42 mls/hr UNSCH PRN IV For Phosphorus < 2.5 mg/dL 11/14/17 15:45 Potassium Phosphate (K-Phos) 2,000 mg UNSCH PRN PO/TUBE SEE LABEL COMMENTS 11/14/17 15:45 Potassium Phosphate 30 mmol/ Sodium Chloride 260 ml @ 42 mls/hr UNSCH PRN IV SEE LABEL COMMENTS 11/14/17 15:45 Apixaban (Eliquis) 5 mg BID PO 11/14/17 21:00 11/18/17 07:48 Atorvastatin Calcium (Lipitor) 80 mg HS PO 11/14/17 21:00 11/17/17 21:37 Digoxin (Lanoxin) 0.125 mg DAILY PO 11/15/17 09:00 Future Hold 11/17/17 08:24 Diltiazem HCl (Cardizem) 60 mg QID PO 11/14/17 18:00 11/18/17 12:21 Metoprolol Tartrate (Lopressor) 50 mg BID PO 11/14/17 21:00 11/18/17 07:49 Potassium Chloride (KCl) 10 meq BID PO 11/14/17 21:00 11/18/17 07:50 Patient Own Medication PT OWN MED: Mometas... HS INH 11/14/17 21:00 Future Hold Metoprolol Tartrate (Lopressor Inj) 2.5 mg Q6H PRN IV PUSH RAPID HEART RATE 11/15/17 09:15 11/15/17 23:56 Propofol 100 ml @ 2.895 mls/ hr TITRATE PRN IV SEDATION 11/16/17 09:15 11/17/17 06:04 Fentanyl Citrate 250 ml @ 5 mls/hr TITRATE PRN IV SEDATION 11/16/17 09:15 11/17/17 16:18 Dextrose (D50w (Vial) Inj) 50 ml UNSCH PRN IV PUSH HYPOGLYCEMIA-SEE COMMENTS 11/16/17 18:00 Glucagon (Glucagon Inj) 1 mg UNSCH PRN OTHER HYPOGLYCEMIA-SEE COMMENTS 11/16/17 18:00 Hydralazine HCl (Apresoline Inj) 20 mg Q4H PRN IV PUSH SYS BP GREATER THAN 160 MMHG 11/17/17 12:00 11/18/17 10:12 Ceftriaxone Sodium 1000 mg/ Sodium Chloride 100 ml @ 200 mls/hr Q24H IV 11/17/17 14:00 11/18/17 12:21 Insulin Aspart (NovoLOG SUPPLEMENTAL SCALE) 1 Q6H SQ 11/18/17 18:00 Methylprednisolone Sodium Succinate (SoluMEDROL INJ) 40 mg DAILY IV PUSH 11/19/17 09:00 OBJECTIVE: Vital Signs Date Time Temp Pulse Resp B/P (MAP) Pulse Ox O2 Delivery O2 Flow Rate FiO2 11/18/17 12:00 98.4 71 172/82 (112) 99 11/18/17 12:00 35 11/18/17 12:00 71 11/18/17 11:33 100 35 11/18/17 10:00 61 11/18/17 08:00 35 11/18/17 08:00 60 11/18/17 08:00 98.7 62 172/86 (114) 100 11/18/17 07:37 99 35 11/18/17 07:37 35 11/18/17 06:00 51 11/18/17 05:56 100 35 11/18/17 04:10 96 35 11/18/17 04:00 98.6 59 20 123/63 (83) 98 11/18/17 04:00 35 11/18/17 04:00 59 11/18/17 02:00 55 11/18/17 00:00 35 11/18/17 00:00 67 11/18/17 00:00 98.5 67 22 142/70 (94) 99 11/17/17 23:49 98 35 11/17/17 22:00 114 11/17/17 21:32 100 169/89 11/17/17 20:00 98.8 83 20 135/63 (87) 97 11/17/17 20:00 35 11/17/17 20:00 83 11/17/17 19:45 100 35 11/17/17 18:00 75 11/17/17 17:45 98 35 11/17/17 16:20 96 35 11/17/17 16:00 74 11/17/17 16:00 98.6 87 167/76 (106) 95 11/17/17 16:00 35 11/17/17 14:00 58 Laboratory Tests Test 11/17/17 07:45 11/18/17 04:20 White Blood Count 9.9 TH/MM3 13.5 TH/MM3 Red Blood Count 3.86 MIL/MM3 4.13 MIL/MM3 Hemoglobin 10.4 GM/DL 11.1 GM/DL Hematocrit 32.0 % 34.8 % Mean Corpuscular Volume 83.1 FL 84.3 FL Mean Corpuscular Hemoglobin 26.9 PG 26.9 PG Mean Corpuscular Hemoglobin Concent 32.3 % 31.9 % Red Cell Distribution Width 17.4 % 17.8 % Platelet Count 100 TH/MM3 115 TH/MM3 Mean Platelet Volume 7.8 FL 8.1 FL Neutrophils (%) (Auto) 84.7 % 87.8 % Lymphocytes (%) (Auto) 8.5 % 6.4 % Monocytes (%) (Auto) 6.4 % 5.4 % Eosinophils (%) (Auto) 0.0 % 0.0 % Basophils (%) (Auto) 0.4 % 0.4 % Neutrophils # (Auto) 8.4 TH/MM3 11.8 TH/MM3 Lymphocytes # (Auto) 0.8 TH/MM3 0.9 TH/MM3 Monocytes # (Auto) 0.6 TH/MM3 0.7 TH/MM3 Eosinophils # (Auto) 0.0 TH/MM3 0.0 TH/MM3 Basophils # (Auto) 0.0 TH/MM3 0.1 TH/MM3 CBC Comment DIFF FINAL DIFF FINAL Differential Comment Laboratory Tests Test 11/17/17 07:45 11/18/17 04:20 Blood Urea Nitrogen 51 MG/DL 56 MG/DL Creatinine 1.53 MG/DL 1.58 MG/DL Random Glucose 227 MG/DL 257 MG/DL Total Protein 5.5 GM/DL Albumin 2.6 GM/DL Calcium Level 8.3 MG/DL 8.3 MG/DL Phosphorus Level 3.1 MG/DL 5.1 MG/DL Magnesium Level 2.2 MG/DL 2.4 MG/DL Alkaline Phosphatase 104 U/L Aspartate Amino Transf (AST/SGOT) 21 U/L Alanine Aminotransferase (ALT/SGPT) 40 U/L Total Bilirubin 0.7 MG/DL Sodium Level 141 MEQ/L 144 MEQ/L Potassium Level 4.2 MEQ/L 4.8 MEQ/L Chloride Level 99 MEQ/L 99 MEQ/L Carbon Dioxide Level 32.7 MEQ/L 40.1 MEQ/L Anion Gap 9 MEQ/L 5 MEQ/L Estimat Glomerular Filtration Rate 44 ML/MIN 43 ML/MIN Microbiology Date/Time Source Procedure Growth Status 11/15/17 16:50 Sputum Expectorated Sputum Gram Stain - Final Complete 11/15/17 16:50 Sputum Culture - Final Klebsiella Pneumoniae Complete 11/16/17 11:30 Urine Catheterized Urine Urine Culture - Final NO GROWTH IN 48 HOURS. Complete IMAGING: Chest X-Ray 11/18/17 0600 Signed Impressions: Service Date/Time: October 04:26 - CONCLUSION: Left lower lobe consolidation. Shaq Eisenberg MD Chest X-Ray 11/16/17 0600 Signed Impressions: Service Date/Time: Thursday, November 16, 2017 03:18 - CONCLUSION: No infiltrates seen. Shaq Eisenberg MD Chest X-Ray 11/16/17 0000 Signed Impressions: Service Date/Time: Thursday, November 16, 2017 09:56 - CONCLUSION: 1. ET tube in good position. 2. No pneumothorax. Erik Eason MD Chest X-Ray 11/15/17 0000 Signed Impressions: Service Date/Time: Wednesday, November 15, 2017 09:32 - CONCLUSION: 1. No acute abnormality or significant interval change. Anil Aldana MD PHYSICAL EXAMINATION: GENERAL: Sedated. Intubated. HEENT: Unable to assess adequately since patient is on the ventilator. NECK: No swelling or adenopathy. LUNGS: Bilateral basilar rhonchi. HEART: Regular without audible murmurs. ABDOMEN: Decreased bowel sounds. Obese, soft. No tenderness EXTREMITIES: 1+ edema of the lower extremities. No clubbing or cyanosis. SKIN: No diffuse rash. NEUROLOGIC: Nonfocal. PSYCHIATRIC: Calm and cooperative. IMPRESSION: 1. Probable sepsis. 2. Pneumonia due to Klebsiella. 3. Acute respiratory failure. Intubated. 4. Leukocytosis. No WBC elevated. 4. History of chronic obstructive pulmonary disease and recent chronic obstructive pulmonary disease exacerbation. Source of sepsis, likely is pneumonia. RECOMMENDATIONS: 1. Continue ceftriaxone. 2. Monitor the white blood cell count. 3. Monitor medical status. Tom Long MD Nov 18, 2017 13:59
[2017-11-18] MEDS ORDERED: MIDAZOLAM HCL 5 MG/ML VIAL (1 ML) ONE (20:06)
[2017-11-18] MEDS ORDERED: SUCCINYLCHOLINE CHLORIDE 100 MG/5 ML SYRINGE IV PUSH ONE (20:15)
[2017-11-18] MEDS ORDERED: MIDAZOLAM HCL 5 MG/5 ML VIAL IV PUSH ONE (20:15)
--- NOTE | 2017-11-18 20:22 | PD.PROCEDR ---
Procedure Note Procedure Endotracheal Intubation Diagnosis: Acute hypercapnic respiratory failure Indications: Patient was noted to choke on water provided by the family. This point he became acutely unresponsive. Stat ABG demonstrated acute hypercapnic respiratory failure with respiratory acidosis, pH of 7.0, PCO2 136. Patient was emergently intubated. Consent: Emergent Anesthesia: Versed 5 mg's IV, succinylcholine 100 milligrams IV Description of the Procedure: The patient was positioned in the sniffing position. Pre-oxygenation was performed using a 100% FiO2 BiPAP. Anesthesia was induced via rapid sequence. A [place] #2 was used for laryngoscopy and a Grade IIa view was obtained. A 8.0 cuffed endotracheal tube was inserted atraumatically through the vocal cords. Confirmation of correct endotracheal tube placement was made by equal and bilateral breath sounds and colorimetric CO2 detection. After intubation, the sats initially dropped into the low 80s and it was noted that he was very difficult to bag mask ventilate. Due to concerns for esophageal intubation, we emergently obtained of the laryngoscope and I performed laryngoscopy which confirmed the ET tube in between the cords. Patient remained having positive colorimetric end-tidal CO2. There is significant aspirate coming out of the ET tube which was suctioned with a 14 Setswana catheter and after this his oxygen saturation improved and he was easier to bag mask ventilate. The endotracheal tube was secured at 24 cm at the teeth. There were no immediate complications noted. The patient remained hemodynamically stable throughout the procedure. A chest x-ray has been ordered. I personally performed the procedure. Kin Guzman MD Nov 18, 2017 20:22
[2017-11-18] MEDS: RESP: ALBUTEROL 2.5 MG/IPRATROPIUM 0.5 MG NEB (PRN) INH (20:57)
[2017-11-18] MEDS: BUDESONIDE-FORMOTEROL 160/4.5 MCG INHALER INH SCH (21:00)
--- NOTE | 2017-11-18 21:29 | RADRPT ---
EXAM DATE/TIME: 11/18/2017 20:25 [place] COMPARISON: CHEST SINGLE AP, November 18, 2017, 4:26. INDICATIONS : Respiratory failure. MEDICAL HISTORY : Chronic obstructive pulmonary disease. SURGICAL HISTORY : None. ENCOUNTER: Subsequent ACUITY: 4 - 6 days PAIN SCORE: Non-responsive. LOCATION: Bilateral chest FINDINGS: A single view of the chest demonstrates small pleural effusions. Heart size within normal limits. Mil dly tortuous aorta. Endotracheal tube in good position. CONCLUSION: 1. Endotracheal tube in good position. Removal of previous NGT. Small bilateral pleural effusions and minimal basilar airspace disease. Tera Gibson MD on November 18, 2017 at 21:25 Board Certified Radiologist. This report was verified electronically.
[2017-11-18] MEDS: fentaNYL DRIP 250 ML IV PRN (23:12)
[2017-11-19] VITALS (48 sets, daily range): BP systolic 85–173; BP diastolic 57–99; PULSE 90–141; RESP 9–32; TEMP 98.6–99.4; O2SAT 89–99
[2017-11-19] MEDS: DOCUSATE SODIUM 50 MG/SENNA 8.6 MG TAB PO SCH ×3 (01:23→21:04)
[2017-11-19] MEDS: POTASSIUM CHLORIDE 10 MEQ CAP PO SCH (01:23)
[2017-11-19] MEDS: DILTIAZEM HCL 60 MG TAB PO SCH ×5 (01:23→21:03)
[2017-11-19] MEDS: FAMOTIDINE 20 MG/2 ML VIAL IV PUSH SCH ×3 (01:23→21:03)
[2017-11-19] MEDS: HEPARIN SODIUM - SQ 10,000 UNITS/ML VIAL SQ SCH (01:23)
[2017-11-19] MEDS: METOPROLOL TARTRATE 50 MG TAB PO SCH ×3 (01:24→21:04)
[2017-11-19] MEDS: ATORVASTATIN 80 MG TAB PO SCH ×2 (01:26→21:04)
[2017-11-19] MEDS: APIXABAN 5 MG TABLET PO SCH ×3 (01:26→21:03)
[2017-11-19] MEDS ORDERED: ALBUMIN 25% INJ 100 ML IV ONE (01:45)
[2017-11-19] MEDS: RESP: ALBUTEROL 2.5 MG/IPRATROPIUM 0.5 MG NEB (SCH) INH ×4 (03:36→20:02)
[2017-11-19] MEDS: CHLORHEXIDINE GLUCONATE 2 % 1 PACK (2 CLOTHS) TOP SCH (04:00)
[2017-11-19] MEDS: INSULIN ASPART SUPPLEMENTAL SCALE SQ SCH ×4 (04:12→18:14)
[2017-11-19 06:23] LABS: AUTOMATED NEUTROPHIL # 14.1 TH/MM3 (1.8-7.7); BASOPHIL # 0.1 TH/MM3 (0-0.2); BASOPHIL % 0.5 % (0.0-2.0); HEMATOCRIT 33.7 % (39.0-51.0); HEMOGLOBIN 10.7 GM/DL (13.0-17.0); LYMPH % 9.8 % (9.0-44.0); LYMPHOCYTE # 1.7 TH/MM3 (1.0-4.8); MEAN CELL VOLUME 84.4 FL (80.0-100.0); MEAN CORPUSCULAR HEMOGLOBIN 26.8 PG (27.0-34.0); MEAN CORPUSCULAR HGB CONC 31.7 % (32.0-36.0); MEAN PLATELET VOLUME 7.8 FL (7.0-11.0); MONO % 7.8 % (0.0-8.0); MONOCYTE # 1.3 TH/MM3 (0-0.9); NEUT % 81.9 % (16.0-70.0); PLATELET COUNT 90 TH/MM3 (150-450); RED BLOOD COUNT 3.99 MIL/MM3 (4.50-5.90); RED CELL DISTRIBUTION WIDTH 17.3 % (11.6-17.2); WHITE BLOOD COUNT 17.2 TH/MM3 (4.0-11.0)
[2017-11-19 06:49] LABS: BICARBONATE 36.2 MEQ/L (21.0-32.0); CALCIUM 8.3 MG/DL (8.5-10.1); CREATININE 1.72 MG/DL (0.60-1.30)
[2017-11-19] MEDS: methylPREDNISolone SOD SUCC 40 MG/1 ML VIAL IV PUSH SCH (09:00)
[2017-11-19] MEDS: SODIUM CHLORIDE 0.9% FLUSH 10 ML FLUSH IV FLUSH SCH ×2 (09:00→21:02)
[2017-11-19] MEDS: CHLORHEXIDINE 0.12% (ORAL KIT) 15 ML CUP MT SCH ×2 (09:00→21:02)
--- NOTE | 2017-11-19 09:01 | HHI.CCPN ---
Subjective Remarks/Hospital Course This is a 77-year-old male with a medical history significant for COPD, CHF, A. fib, diabetes, that presented to emergency department from [facility] for evaluation of worsening shortness of breath over the last 3 days. The patient was been given Solu-Medrol 125 mg and 2 albuterol treatments enroute to ED. Upon presentation to the ED the patient was on a nonrebreather. He was tachypneic and tachycardic. Patient's medical history significant for MRSA pneumonia previously admitted on 10/27/16 for approximately 12 days at [facility]. The patient is normally on 2.5 L/m nasal cannula O2 home dependency, and he lives with ( normally) a PCO2 in the 80s according to his . Patient was then discharged to [facility], and then transferred to [facility] for rehabilitation. He has been on an unknown antibiotic per the family and steroids for the last 3 days. Laboratory and imaging studies were performed with noted elevation in CO2 The patient was given empiric antibiotics in the ED and placed on BiPAP. Critical care medicine was consulted. Subjective: 11/15: Patient maintained on BiPAP throughout the night O2 saturations 97-98% on FiO2 of 0.40. Hemodynamically stable. Attempts made to wean patient to nasal cannula this a.m. unsuccessful, patient's O2 saturation in the 70s, patient placed back on BiPAP. Chest x-ray pending WBC count significantly diminished, leukocytosis resolved. Patient extremely anxious, Precedex infusion initiated. 11/16: Late entry note. Patient seen 10 AM. Overnight the patient converted to A. fib RVR, despite being on Cardizem 4 times a day and metoprolol twice a day- home medications, the patient received IV Cardizem followed by amiodarone infusion. Per report the patient became hypotensive, Cardizem discontinued. Amiodarone continued. Early this a.m. patient was resting comfortably A. fib rate controlled rate. The patient suddenly converted to A. fib RVR heart rate 150s-160s, acute hypoxemic respiratory failure, requiring intubation. The patient was intubated uneventfully and continues on amiodarone at 0.5 mg/hour, rate now controlled in conjunction with sedation. Cardiology consulted, his pourer bull ladle is Dr. Parker X-ray revealed lung consolidation improved, chest x- ray clear. Plan for CPAP trials in a.m.. 11/17: No acute events overnight. Patient had 1 short 8 beat run of V. tach last evening was self resolution, electrolytes within normal limits. The patient continues on amiodarone 0.5 mg/hr. CPAP trials initiated this a.m.. Tube feeds initiated at trickle feeds. Patient converted to sinus rhythm at 2 AM. 11/18 Patient remains sedated and intubated. Afebrile. 11/19 Patient was extubated yesterday however last night he was noted to choke on water provided by the family. Stat ABG demonstrated acute hypercapnic respiratory failure and was emergently intubated. Currently sedated and intubated. Objective Vital Signs Date Time Temp Pulse Resp B/P (MAP) Pulse Ox O2 Delivery O2 Flow Rate FiO2 11/19/17 07:41 95 40 11/19/17 06:00 117 11/19/17 04:00 98.6 22 100/58 (72) 11/18/17 16:00 Nasal Cannula 4.00 Intake and Output 11/19/17 11/19/17 11/20/17 08:00 16:00 00:00 Intake Total 345 ml Output Total 500 ml Balance -155 ml Result Diagram: 11/19/17 0554 11/19/17 0554 Other Results Laboratory Tests Test 11/18/17 12:18 11/18/17 19:53 11/18/17 22:52 11/19/17 05:39 Blood Gas Puncture Site RT RADIAL LT RADIAL LT RADIAL LT RADIAL Blood Gas Patient Temperature 98.6 98.6 98.6 98.6 Blood Gas HCO3 40 mmol/L 40 mmol/L 38 mmol/L 38 mmol/L Blood Gas Base Excess 13.9 mmol/L 9.6 mmol/L 10.9 mmol/L 10.8 mmol/L Blood Gas Oxygen Saturation 93 % 95 % 93 % 92 % Arterial Blood pH 7.39 7.06 7.29 7.30 Arterial Blood Partial Pressure CO2 67 mmHg 148 mmHg 81 mmHg 79 mmHg Arterial Blood Partial Pressure O2 85 mmHg 139 mmHg 86 mmHg 80 mmHg Arterial Blood Oxygen Content 14.7 Vol % 16.6 Vol % 14.7 Vol % 13.9 Vol % Arterial Blood Carboxyhemoglobin 1.7 % 0.8 % 1.3 % 1.4 % Arterial Blood Methemoglobin 1.2 % 1.3 % 1.2 % 1.2 % Blood Gas Hemoglobin 11.2 G/DL 12.3 G/DL 11.2 G/DL 10.7 G/DL Oxygen Delivery Device VENTILATOR BIPAP VENT VENT Blood Gas Ventilator Setting CPAP:PS5/[id number] SEE COMMENTS SEE COMMENTS Blood Gas Inspired Oxygen 35 % 100 % 40 % 40 % Test 11/19/17 05:54 White Blood Count 17.2 TH/MM3 Red Blood Count 3.99 MIL/MM3 Hemoglobin 10.7 GM/DL Hematocrit 33.7 % Mean Corpuscular Volume 84.4 FL Mean Corpuscular Hemoglobin 26.8 PG Mean Corpuscular Hemoglobin Concent 31.7 % Red Cell Distribution Width 17.3 % Platelet Count 90 TH/MM3 Mean Platelet Volume 7.8 FL Neutrophils (%) (Auto) 81.9 % Lymphocytes (%) (Auto) 9.8 % Monocytes (%) (Auto) 7.8 % Eosinophils (%) (Auto) 0.0 % Basophils (%) (Auto) 0.5 % Neutrophils # (Auto) 14.1 TH/MM3 Lymphocytes # (Auto) 1.7 TH/MM3 Monocytes # (Auto) 1.3 TH/MM3 Eosinophils # (Auto) 0.0 TH/MM3 Basophils # (Auto) 0.1 TH/MM3 CBC Comment AUTO DIFF Blood Urea Nitrogen 62 MG/DL Creatinine 1.72 MG/DL Random Glucose 236 MG/DL Calcium Level 8.3 MG/DL Sodium Level 143 MEQ/L Potassium Level 4.2 MEQ/L Chloride Level 98 MEQ/L Carbon Dioxide Level 36.2 MEQ/L Anion Gap 9 MEQ/L Estimat Glomerular Filtration Rate 39 ML/MIN Imaging Last Impressions Chest X-Ray 11/18/17 0600 Signed Impressions: Service Date/Time: October 04:26 - CONCLUSION: Left lower lobe consolidation. Shaq Eisenberg MD Objective Remarks GENERAL: Patient is 77 yo intubated and sedated SKIN: Warm and dry. HEAD: Normocephalic. EYES: No scleral icterus. No injection or drainage. NECK: Supple, trachea midline. No JVD or lymphadenopathy. CARDIOVASCULAR: Regular rate and rhythm without murmurs, gallops, or rubs. RESPIRATORY: Breath sounds equal bilaterally. No accessory muscle use. GASTROINTESTINAL: Abdomen soft, non-tender, nondistended. MUSCULOSKELETAL: No cyanosis, or edema. Neuro: sedated A/P Problem List: (1) A-fib ICD Code: I48.91 - Unspecified atrial fibrillation (2) CHF (congestive heart failure) ICD Code: I50.9 - Heart failure, unspecified Status: Chronic (3) HTN (hypertension) ICD Code: I10 - Essential (primary) hypertension Status: Chronic (4) ADRIAN (obstructive sleep apnea) ICD Code: G47.33 - Obstructive sleep apnea (adult) (pediatric) Status: Chronic (5) MRSA pneumonia ICD Code: J15.212 - Pneumonia due to Methicillin resistant Staphylococcus aureus Status: Acute (6) Diabetes mellitus type 2, insulin dependent ICD Code: E11.9 - Type 2 diabetes mellitus without complications; Z79.4 - senior care (current) use of insulin Status: Chronic (7) COPD (chronic obstructive pulmonary disease) ICD Code: J44.9 - Chronic obstructive pulmonary disease, unspecified Status: Acute (8) Respiratory distress ICD Code: R06.03 - Acute respiratory distress Status: Acute (9) Leukocytosis ICD Code: D72.829 - Elevated white blood cell count, unspecified Status: Acute (10) Lung consolidation ICD Code: J18.1 - Lobar pneumonia, unspecified organism Status: Acute (11) Anxiety ICD Code: F41.9 - Anxiety disorder, unspecified Status: Chronic Assessment and Plan Plan by systems: Neurologic: Anxiety disorder On fentanyl infusions to maintain ventilator synchrony and sedation Tylenol for pain and fever. 100.5 Daily sedation vacation Hold gabapentin 300mmg q HS home med Respiratory: VDRF- extubated and reintubated night of 11/18 after he was noted to chocke on water provided by family. COPD exacerbation Pneumonia-MRSA Obstructive sleep apnea Home O2 dependency Continue with vent support keep sats >92% Bronchodilators, decrease methylprednisolone 40 mg IV daily Pulmonology following- Dr Price, SBT as kirby Cardiovascular: A. fib RVR History of CHF CAD On Eliquis 5 mg twice a day, atorvastatin 80 daily at bedtime, metoprolol 50 mg twice a day, Cardizem 60 mg 4 times a day . Cards is following- Dr. Parker- Renal: Monitor renal function, electrolytes replacement per protocol. Place on NS @75ml/hr. Renal function is worse with Cr: 1.72 from 1.58, off Diuretics FEN/GI: Electrolyte derangement GERD Continue tube feeds- On Jevity 1.5, Pepcid for GI prophylaxis Heme/ID: Pneumonia MRSA positive-on 10/27 Leukocytosis ID following- Antibiotics per ID ( Rocephin) monitor for signs of infection ( Fever, WBC) 11/14 Obtain blood , urine - NGTD 11/16 Obtain sputum cultures- Kleb pneumonia Monitor CBC Endocrine: Glucose monitoring per ICU protocol-low dose regimen -- SSI(medium scale) add Levemir 5u Q12 Prophylaxis: GI Prophylaxis Famotidine BID DVT Prophylaxis -- SCDs Continue home dose Eliquis 5 mg BID Lines: PIVs 2. Level 3 Problem Qualifiers (1) COPD (chronic obstructive pulmonary disease): Qualified Codes: J44.9 - Chronic obstructive pulmonary disease, unspecified (2) Leukocytosis: Qualified Codes: D72.829 - Elevated white blood cell count, unspecified Carmen Richard MD Nov 19, 2017 09:01
[2017-11-19 09:10] LABS: BANDS 13 % (0-6); LYMPHOCYTES 12 % (9-44); MONOCYTES 11 % (0-8); NEUTROPHIL # MANUAL DIFF 13.2 TH/MM3 (1.8-7.7); POLYS (SEG NEUTROPHILS) 64 % (16-70)
[2017-11-19 09:11] LABS: OVALOCYTES 1+ (NORMAL)
[2017-11-19] MEDS: SODIUM CHLOR 0.9% 1000 ML INJ 1,000 ML IV SCH ×2 (09:32→22:58)
[2017-11-19] MEDS: INSULIN DETEMIR 100 UNITS/ML VIAL SQ SCH ×2 (09:43→21:04)
[2017-11-19] MEDS: BUDESONIDE-FORMOTEROL 160/4.5 MCG INHALER INH SCH ×2 (12:45→21:00)
[2017-11-19] MEDS: cefTRIAXone INJ 1,000 MG in SODIUM CHLORIDE 0.9% INJ 100 ML IV SCH (14:58)
[2017-11-19] MEDS: fentaNYL DRIP 250 ML IV PRN (15:38)
[2017-11-19] MEDS: METOPROLOL TARTRATE 5 MG/5 ML VIAL IV PUSH PRN (17:01)
--- NOTE | 2017-11-19 19:27 | HHI.IDPN ---
Note Infectious Disease Note Patient was extubated yesterday and had to be reintubated. He is noted to have aspirated while being given water to drink. He is now on CPAP. Sedated. [place]. Afebrile. 77-year-old, white male who presents to the Emergency Department with shortness of breath. The patient has a history of COPD and CHF. He usually uses CPAP at the assisted living facility. He was noted to have been developing coughing and shortness of breath over the past couple of days, and his states that he was coughing a lot yesterday and bringing up mostly phlegm and that he was restless and could not sleep. She states that he was mostly awake over the For 24 hours before being brought to emergency department. Recently treated at [facility] for pneumonia due to methicillin-resistant Staphylococcus aureus. His states that he was still on the oral antibiotic for pneumonia and that he has 2 more days of the medication to complete therapy with Zyvox. PAST MEDICAL HISTORY: COPD, CHF, atrial fibrillation, insulin-dependent diabetes mellitus, hypertension, hyperlipidemia, gastroesophageal reflux, gastroparesis, iron deficiency anemia, oxygen-dependent. PAST SURGICAL HISTORY: Right knee surgery, right carpal tunnel release, cardiac ablation treatment 2002. ALLERGIES: ASPIRIN, CODEINE. MEDICATIONS: Current Medications Medications (Trade) Dose Ordered Sig/Yani Route PRN Reason Start Time Stop Time Status Last Admin Dose Admin Sodium Chloride (NS Flush) 2 ml UNSCH PRN IV FLUSH FLUSH AFTER USING IV ACCESS 11/14/17 15:45 11/17/17 14:05 Sodium Chloride (NS Flush) 2 ml BID IV FLUSH 11/14/17 21:00 11/19/17 09:00 Acetaminophen (Tylenol) 650 mg Q6H PRN PO PAIN 1-10 AND/OR FEVER >101F 11/14/17 15:45 11/15/17 20:11 Ondansetron HCl (Zofran Inj) 4 mg Q6H PRN IV PUSH NAUSEA OR VOMITING 11/14/17 15:45 11/18/17 16:03 Miscellaneous Information 1 Q361D XX 11/14/17 15:45 11/14/17 15:45 Chlorhexidine Gluconate (Chlorhexidine 2% Cloth) 3 pack Taper DAILY@04 TOP 11/15/17 04:00 11/11/18 03:59 11/19/17 04:00 Chlorhexidine Gluconate (Chlorhexidine 2% Cloth) 3 pack UNSCH PRN TOP HYGIENIC CARE 11/14/17 15:45 Senna/Docusate Sodium (Ricarda-Colace) 1 tab BID PO 11/14/17 21:00 11/19/17 08:58 Magnesium Hydroxide (Milk Of Magnesia Liq) 30 ml Q12H PRN PO Mild constipation 11/14/17 15:45 Sennosides (Senokot) 17.2 mg Q12H PRN PO Moderate constipation 11/14/17 15:45 Bisacodyl (Dulcolax Supp) 10 mg DAILY PRN RECTAL SEVERE CONSITIPATION 11/14/17 15:45 Lactulose (Lactulose Liq) 30 ml DAILY PRN PO SEVERE CONSITIPATION 11/14/17 15:45 Potassium Chloride 100 ml @ 50 mls/hr Q2H PRN IV For Potassium 2.8 - 3.2 mEq/L 11/14/17 15:45 Potassium Chloride 100 ml @ 50 mls/hr Q2H PRN IV For Potassium 2.8 - 3.2 mEq/L 11/14/17 15:45 Potassium Bicarb/ Potassium Chloride (K-Lyte Cl Eff) 50 meq UNSCH PRN PO For Potassium 3.3 - 3.5 mEq/L 11/14/17 15:45 Potassium Chloride 100 ml @ 25 mls/hr UNSCH PRN IV For Potassium 3.3 - 3.5 mEq/L 11/14/17 15:45 Potassium Chloride 100 ml @ 50 mls/hr Q2H PRN IV For Potassium 3.3 - 3.5 mEq/L 11/14/17 15:45 Magnesium Sulfate 4 gm/Sodium Chloride 100 ml @ 50 mls/hr UNSCH PRN IV For Magnesium 0.9 - 1.1 mg/dL 11/14/17 15:45 Magnesium Oxide (Mag-Ox) 800 mg UNSCH PRN PO For Magnesium 1.2 - 1.6 mg/dL 11/14/17 15:45 Magnesium Sulfate 2 gm/Sodium Chloride 100 ml @ 50 mls/hr UNSCH PRN IV For Magnesium 1.2 - 1.6 mg/dL 11/14/17 15:45 Potassium Phosphate (K-Phos) 2,000 mg Q4H PRN PO For Phosphorus < 2.5 mg/dL 11/14/17 15:45 Sodium Phosphate 30 mmol/Sodium Chloride 250 ml @ 42 mls/hr UNSCH PRN IV For Phosphorus < 2.5 mg/dL 11/14/17 15:45 Potassium Phosphate (K-Phos) 2,000 mg UNSCH PRN PO/TUBE SEE LABEL COMMENTS 11/14/17 15:45 Potassium Phosphate 30 mmol/ Sodium Chloride 260 ml @ 42 mls/hr UNSCH PRN IV SEE LABEL COMMENTS 11/14/17 15:45 Apixaban (Eliquis) 5 mg BID PO 11/14/17 21:00 11/19/17 08:59 Atorvastatin Calcium (Lipitor) 80 mg HS PO 11/14/17 21:00 11/19/17 01:26 Digoxin (Lanoxin) 0.125 mg DAILY PO 11/15/17 09:00 Future Hold 11/17/17 08:24 Diltiazem HCl (Cardizem) 60 mg QID PO 11/14/17 18:00 11/19/17 17:24 Metoprolol Tartrate (Lopressor) 50 mg BID PO 11/14/17 21:00 11/19/17 08:59 Patient Own Medication PT OWN MED: Mometas... HS INH 11/14/17 21:00 Future Hold Metoprolol Tartrate (Lopressor Inj) 2.5 mg Q6H PRN IV PUSH RAPID HEART RATE 11/15/17 09:15 11/19/17 17:01 Dextrose (D50w (Vial) Inj) 50 ml UNSCH PRN IV PUSH HYPOGLYCEMIA-SEE COMMENTS 11/16/17 18:00 Glucagon (Glucagon Inj) 1 mg UNSCH PRN OTHER HYPOGLYCEMIA-SEE COMMENTS 11/16/17 18:00 Hydralazine HCl (Apresoline Inj) 20 mg Q4H PRN IV PUSH SYS BP GREATER THAN 160 MMHG 11/17/17 12:00 11/18/17 16:16 Ceftriaxone Sodium 1000 mg/ Sodium Chloride 100 ml @ 200 mls/hr Q24H IV 11/17/17 14:00 11/19/17 14:58 Insulin Aspart (NovoLOG SUPPLEMENTAL SCALE) 1 Q6H SQ 11/18/17 18:00 11/19/17 18:14 Methylprednisolone Sodium Succinate (SoluMEDROL INJ) 40 mg DAILY IV PUSH 11/19/17 09:00 11/19/17 09:00 Budesonide/ Formoterol Fumarate (Symbicort 160-4.5 Mcg Inh) 2 puff Q12HR INH 11/18/17 21:00 11/19/17 12:45 Fentanyl Citrate 250 ml @ 5 mls/hr TITRATE PRN IV SEDATION 11/18/17 22:15 11/19/17 15:38 Chlorhexidine Gluconate (Peridex 0.12% Liq) 15 ml BID@08,20 MT 11/19/17 08:00 11/19/17 09:00 Albuterol/ Ipratropium (Duoneb Neb) 1 ampule Q6HR NEB INH 11/19/17 04:00 11/19/17 15:09 Albuterol/ Ipratropium (Duoneb Neb) 1 ampule Q2HR NEB PRN INH WHEEZING 11/18/17 22:30 Sodium Chloride 1,000 ml @ 75 mls/hr [id number] IV 11/19/17 09:00 11/19/17 09:32 Insulin Detemir (Levemir Inj) 5 units Q12HR SQ 11/19/17 09:00 11/19/17 09:43 Famotidine (Pepcid Inj) 10 mg Q12HR IV PUSH 11/19/17 21:00 OBJECTIVE: Vital Signs Date Time Temp Pulse Resp B/P (MAP) Pulse Ox O2 Delivery O2 Flow Rate FiO2 11/19/17 18:30 120 11/19/17 18:00 133 11/19/17 17:30 133 11/19/17 17:00 133 11/19/17 16:30 133 11/19/17 16:15 132 11 94/63 (73) 95 11/19/17 16:00 99.3 135 16 139/67 (91) 96 11/19/17 16:00 40 11/19/17 16:00 135 11/19/17 15:45 130 11 120/59 (79) 95 11/19/17 15:31 141 32 133/84 (100) 92 11/19/17 15:30 134 11/19/17 15:15 138 9 136/68 (90) 95 11/19/17 15:09 96 40 11/19/17 15:00 134 15 149/92 (111) 92 3/23/18 15:00 134 18 14:45 129 15 104/86 (92) 94 11/19/17 14:30 112 11 85/64 (71) 95 11/19/17 14:30 112 11/19/17 14:15 134 13 91/60 (70) 95 11/19/17 14:00 117 18 120/66 (84) 94 18 14:00 117 11/19/17 13:45 120 14 110/65 (80) 94 11/19/17 13:30 132 14 115/59 (77) 94 11/19/17 13:30 132 11/19/17 13:15 105 14 126/60 (82) 94 11/19/17 13:00 102 11/19/17 13:00 102 15 145/63 (90) 94 11/19/17 12:45 111 11/19/17 12:30 115 148/74 (98) 91 11/19/17 12:30 115 11/19/17 12:15 93 11/19/17 12:15 93 160/64 (96) 90 11/19/17 12:00 99.2 109 18 139/70 (93) 91 11/19/17 12:00 109 11/19/17 11:45 124 11/19/17 11:45 124 136/71 (92) 90 11/19/17 11:30 40 18 11:30 125 159/99 (119) 89 11/19/17 11:30 125 18 11:18 92 40 11/19/17 11:15 119 106/65 (79) 94 11/19/17 11:15 119 11/19/17 11:00 128 18 11:00 128 112/71 (85) 95 18 10:30 128 109/79 (89) 93 3 10:30 128 18 10:00 128 119/66 (83) 95 11/19/17 10:00 128 18 09:30 137 18 09:30 137 173/83 (113) 95 11/19/17 09:00 135 11/19/17 09:00 135 125/88 (100) 96 11/19/17 08:30 134 3/23/18 08:30 134 103/66 (78) 97 11/19/17 08:00 99.4 111 109/57 (74) 97 11/19/17 08:00 40 11/19/17 08:00 111 11/19/17 07:41 95 40 11/19/17 07:31 131 91/66 (74) 96 11/19/17 07:00 123 168/91 (116) 94 11/19/17 07:00 128 11/19/17 06:00 117 11/19/17 04:54 97 40 11/19/17 04:00 91 11/19/17 04:00 98.6 91 22 100/58 (72) 95 11/19/17 02:00 127 11/19/17 00:23 94 40 11/19/17 00:00 98.6 120 110/68 (82) 95 11/19/17 00:00 120 11/19/17 00:00 40 11/18/17 22:00 124 11/18/17 20:36 99 100 11/18/17 20:00 108 11/18/17 20:00 98.3 108 174/105 (128) 98 Laboratory Tests Test 11/18/17 04:20 11/19/17 05:54 White Blood Count 13.5 TH/MM3 17.2 TH/MM3 Red Blood Count 4.13 MIL/MM3 3.99 MIL/MM3 Hemoglobin 11.1 GM/DL 10.7 GM/DL Hematocrit 34.8 % 33.7 % Mean Corpuscular Volume 84.3 FL 84.4 FL Mean Corpuscular Hemoglobin 26.9 PG 26.8 PG Mean Corpuscular Hemoglobin Concent 31.9 % 31.7 % Red Cell Distribution Width 17.8 % 17.3 % Platelet Count 115 TH/MM3 90 TH/MM3 Mean Platelet Volume 8.1 FL 7.8 FL Neutrophils (%) (Auto) 87.8 % 81.9 % Lymphocytes (%) (Auto) 6.4 % 9.8 % Monocytes (%) (Auto) 5.4 % 7.8 % Eosinophils (%) (Auto) 0.0 % 0.0 % Basophils (%) (Auto) 0.4 % 0.5 % Neutrophils # (Auto) 11.8 TH/MM3 14.1 TH/MM3 Lymphocytes # (Auto) 0.9 TH/MM3 1.7 TH/MM3 Monocytes # (Auto) 0.7 TH/MM3 1.3 TH/MM3 Eosinophils # (Auto) 0.0 TH/MM3 0.0 TH/MM3 Basophils # (Auto) 0.1 TH/MM3 0.1 TH/MM3 CBC Comment DIFF FINAL AUTO DIFF Differential Comment FINAL DIFF MANUAL Differential Total Cells Counted 100 Neutrophils % (Manual) 64 % Band Neutrophils % 13 % Lymphocytes % 12 % Monocytes % 11 % Neutrophils # (Manual) 13.2 TH/MM3 Platelet Estimate LOW Platelet Morphology Comment NORMAL Ovalocytes 1+ Laboratory Tests Test 11/18/17 04:20 11/19/17 05:54 Blood Urea Nitrogen 56 MG/DL 62 MG/DL Creatinine 1.58 MG/DL 1.72 MG/DL Random Glucose 257 MG/DL 236 MG/DL Calcium Level 8.3 MG/DL 8.3 MG/DL Phosphorus Level 5.1 MG/DL Magnesium Level 2.4 MG/DL Sodium Level 144 MEQ/L 143 MEQ/L Potassium Level 4.8 MEQ/L 4.2 MEQ/L Chloride Level 99 MEQ/L 98 MEQ/L Carbon Dioxide Level 40.1 MEQ/L 36.2 MEQ/L Anion Gap 5 MEQ/L 9 MEQ/L Estimat Glomerular Filtration Rate 43 ML/MIN 39 ML/MIN IMAGING: Chest X-Ray 11/16/17 0600 Signed Impressions: Service Date/Time: Thursday, November 16, 2017 03:18 - CONCLUSION: No infiltrates seen. Shaq Eisenberg MD Chest X-Ray 11/16/17 0000 Signed Impressions: Service Date/Time: Thursday, November 16, 2017 09:56 - CONCLUSION: 1. ET tube in good position. 2. No pneumothorax. Erik Eason MD Chest X-Ray 11/15/17 0000 Signed Impressions: Service Date/Time: Wednesday, November 15, 2017 09:32 - CONCLUSION: 1. No acute abnormality or significant interval change. Anil Aldana MD PHYSICAL EXAMINATION: GENERAL: Sedated. HEENT: Unable to assess adequately since patient is on the ventilator. NECK: No swelling or adenopathy. LUNGS: Bilateral rhonchi. HEART: Regular without audible murmurs. ABDOMEN: Bowel sounds present, but diminished; obese, soft. No tenderness EXTREMITIES: 1+ edema of the lower extremities, bilateral. No clubbing or cyanosis. SKIN: No diffuse rash. NEUROLOGIC: Nonfocal. PSYCHIATRIC: Calm and cooperative. IMPRESSION: 1. Probable sepsis. 2. Pneumonia gram-negative. Klebsiella 3. Acute respiratory failure. Extubated and appears to have aspirated. 4. Leukocytosis. WBC increased again. 4. History of chronic obstructive pulmonary disease and recent chronic obstructive pulmonary disease exacerbation. He is also receiving Solu-Medrol which can increase the white cell count. RECOMMENDATIONS: 1. Change cefepime to Zosyn. 2. Monitor white blood cell count 3. monitor clinical status. Discussed with at bedside. Tom Long MD Nov 19, 2017 19:27
[2017-11-19] MEDS: PIPERACIL-TAZO 2.25 GM PREMIX 50 ML IV SCH (21:02)
[2017-11-20] VITALS (21 sets, daily range): BP systolic 93–132; BP diastolic 57–82; PULSE 82–138; RESP 10–25; TEMP 98.3–99.9; O2SAT 90–100
[2017-11-20] MEDS: INSULIN ASPART SUPPLEMENTAL SCALE SQ SCH ×4 (00:51→16:50)
[2017-11-20] MEDS: RESP: ALBUTEROL 2.5 MG/IPRATROPIUM 0.5 MG NEB (SCH) INH ×4 (03:39→20:51)
[2017-11-20] MEDS: CHLORHEXIDINE GLUCONATE 2 % 1 PACK (2 CLOTHS) TOP SCH ×2 (04:00→23:25)
[2017-11-20] MEDS: PIPERACIL-TAZO 2.25 GM PREMIX 50 ML IV SCH ×3 (06:28→21:23)
[2017-11-20 07:08] LABS: AUTOMATED NEUTROPHIL # 7.5 TH/MM3 (1.8-7.7); BASOPHIL % 0.5 % (0.0-2.0); EOSINOPHIL % 0.1 % (0.0-4.0); HEMATOCRIT 29.1 % (39.0-51.0); HEMOGLOBIN 9.4 GM/DL (13.0-17.0); LYMPH % 14.8 % (9.0-44.0); LYMPHOCYTE # 1.5 TH/MM3 (1.0-4.8); MEAN CELL VOLUME 84.9 FL (80.0-100.0); MEAN CORPUSCULAR HEMOGLOBIN 27.4 PG (27.0-34.0); MEAN CORPUSCULAR HGB CONC 32.3 % (32.0-36.0); MEAN PLATELET VOLUME 8.6 FL (7.0-11.0); MONO % 9.4 % (0.0-8.0); MONOCYTE # 0.9 TH/MM3 (0-0.9); NEUT % 75.2 % (16.0-70.0); PLATELET COUNT 94 TH/MM3 (150-450); RED BLOOD COUNT 3.43 MIL/MM3 (4.50-5.90); RED CELL DISTRIBUTION WIDTH 17.4 % (11.6-17.2); WHITE BLOOD COUNT 9.9 TH/MM3 (4.0-11.0)
--- NOTE | 2017-11-20 07:27 | HHI.CCPN ---
Subjective Remarks/Hospital Course This is a 77-year-old male with a medical history significant for COPD, CHF, A. fib, diabetes, that presented to emergency department from [facility] for evaluation of worsening shortness of breath over the last 3 days. The patient was been given Solu-Medrol 125 mg and 2 albuterol treatments enroute to ED. Upon presentation to the ED the patient was on a nonrebreather. He was tachypneic and tachycardic. Patient's medical history significant for MRSA pneumonia previously admitted on 10/27/16 for approximately 12 days at [facility]. The patient is normally on 2.5 L/m nasal cannula O2 home dependency, and he lives with ( normally) a PCO2 in the 80s according to his . Patient was then discharged to [facility], and then transferred to [facility] for rehabilitation. He has been on an unknown antibiotic per the family and steroids for the last 3 days. Laboratory and imaging studies were performed with noted elevation in CO2 The patient was given empiric antibiotics in the ED and placed on BiPAP. Critical care medicine was consulted. Subjective: 11/15: Patient maintained on BiPAP throughout the night O2 saturations 97-98% on FiO2 of 0.40. Hemodynamically stable. Attempts made to wean patient to nasal cannula this a.m. unsuccessful, patient's O2 saturation in the 70s, patient placed back on BiPAP. Chest x-ray pending WBC count significantly diminished, leukocytosis resolved. Patient extremely anxious, Precedex infusion initiated. 11/16: Late entry note. Patient seen 10 AM. Overnight the patient converted to A. fib RVR, despite being on Cardizem 4 times a day and metoprolol twice a day- home medications, the patient received IV Cardizem followed by amiodarone infusion. Per report the patient became hypotensive, Cardizem discontinued. Amiodarone continued. Early this a.m. patient was resting comfortably A. fib rate controlled rate. The patient suddenly converted to A. fib RVR heart rate 150s-160s, acute hypoxemic respiratory failure, requiring intubation. The patient was intubated uneventfully and continues on amiodarone at 0.5 mg/hour, rate now controlled in conjunction with sedation. Cardiology consulted, his custom clothier is Dr. Parker X-ray revealed lung consolidation improved, chest x- ray clear. Plan for CPAP trials in a.m.. 11/17: No acute events overnight. Patient had 1 short 8 beat run of V. tach last evening was self resolution, electrolytes within normal limits. The patient continues on amiodarone 0.5 mg/hr. CPAP trials initiated this a.m.. Tube feeds initiated at trickle feeds. Patient converted to sinus rhythm at 2 AM. 11/18 Patient remains sedated and intubated. Afebrile. 11/19 Patient was extubated yesterday however last night he was noted to choke on water provided by the family. Stat ABG demonstrated acute hypercapnic respiratory failure and was emergently intubated. Currently sedated and intubated. 11/20 Patient remains intubated on Fentanyl drip however he si awake and alert. Afebrile. Objective Vital Signs Date Time Temp Pulse Resp B/P (MAP) Pulse Ox O2 Delivery O2 Flow Rate FiO2 11/20/17 06:00 98 11/20/17 04:00 99.1 19 93/57 (69) 97 11/20/17 04:00 40 11/18/17 16:00 Nasal Cannula 4.00 Intake and Output 11/20/17 11/20/17 11/21/17 08:00 16:00 00:00 Intake Total 300 ml Output Total 900 ml Balance -600 ml Result Diagram: 11/20/17 0617 11/19/17 0554 Other Results Laboratory Tests Test 11/20/17 06:17 White Blood Count 9.9 TH/MM3 Red Blood Count 3.43 MIL/MM3 Hemoglobin 9.4 GM/DL Hematocrit 29.1 % Mean Corpuscular Volume 84.9 FL Mean Corpuscular Hemoglobin 27.4 PG Mean Corpuscular Hemoglobin Concent 32.3 % Red Cell Distribution Width 17.4 % Platelet Count 94 TH/MM3 Mean Platelet Volume 8.6 FL Neutrophils (%) (Auto) 75.2 % Lymphocytes (%) (Auto) 14.8 % Monocytes (%) (Auto) 9.4 % Eosinophils (%) (Auto) 0.1 % Basophils (%) (Auto) 0.5 % Neutrophils # (Auto) 7.5 TH/MM3 Lymphocytes # (Auto) 1.5 TH/MM3 Monocytes # (Auto) 0.9 TH/MM3 Eosinophils # (Auto) 0.0 TH/MM3 Basophils # (Auto) 0.0 TH/MM3 CBC Comment AUTO DIFF Imaging Last Impressions Chest X-Ray 11/18/17 0600 Signed Impressions: Service Date/Time: October 04:26 - CONCLUSION: Left lower lobe consolidation. Shaq Eisenberg MD Objective Remarks GENERAL: Patient is 77 yo intubated and sedated SKIN: Warm and dry. HEAD: Normocephalic. EYES: No scleral icterus. No injection or drainage. NECK: Supple, trachea midline. No JVD or lymphadenopathy. CARDIOVASCULAR: Regular rate and rhythm without murmurs, gallops, or rubs. RESPIRATORY: Breath sounds equal bilaterally. No accessory muscle use. GASTROINTESTINAL: Abdomen soft, non-tender, nondistended. MUSCULOSKELETAL: No cyanosis, or edema. Neuro: sedated A/P Problem List: (1) A-fib ICD Code: I48.91 - Unspecified atrial fibrillation (2) CHF (congestive heart failure) ICD Code: I50.9 - Heart failure, unspecified Status: Chronic (3) HTN (hypertension) ICD Code: I10 - Essential (primary) hypertension Status: Chronic (4) ADRIAN (obstructive sleep apnea) ICD Code: G47.33 - Obstructive sleep apnea (adult) (pediatric) Status: Chronic (5) MRSA pneumonia ICD Code: J15.212 - Pneumonia due to Methicillin resistant Staphylococcus aureus Status: Acute (6) Diabetes mellitus type 2, insulin dependent ICD Code: E11.9 - Type 2 diabetes mellitus without complications; Z79.4 - long term (current) use of insulin Status: Chronic (7) COPD (chronic obstructive pulmonary disease) ICD Code: J44.9 - Chronic obstructive pulmonary disease, unspecified Status: Acute (8) Respiratory distress ICD Code: R06.03 - Acute respiratory distress Status: Acute (9) Leukocytosis ICD Code: D72.829 - Elevated white blood cell count, unspecified Status: Acute (10) Lung consolidation ICD Code: J18.1 - Lobar pneumonia, unspecified organism Status: Acute (11) Anxiety ICD Code: F41.9 - Anxiety disorder, unspecified Status: Chronic Assessment and Plan Plan by systems: Neurologic: Anxiety disorder On fentanyl infusions to maintain ventilator synchrony and sedation Tylenol for pain and fever. 100.5 Daily sedation vacation Hold gabapentin 300mmg q HS home med Respiratory: VDRF- extubated and reintubated night of 11/18 after he was noted to chocke on water provided by family. COPD exacerbation Pneumonia-MRSA Obstructive sleep apnea Home O2 dependency Continue with vent support keep sats >92% Bronchodilators, methylprednisolone 40 mg IV daily Pulmonology following- Dr Price, SBT as kirby Cardiovascular: A. fib RVR History of CHF CAD On Eliquis 5 mg twice a day, atorvastatin 80 daily at bedtime, metoprolol 50 mg twice a day, Cardizem 60 mg 4 times a day . Cards is following- Dr. Parker- Renal: Monitor renal function, electrolytes replacement per protocol. On NS @75ml/hr. Follow up BMP FEN/GI: Electrolyte derangement GERD Continue tube feeds- On Jevity 1.5, Pepcid for GI prophylaxis Heme/ID: Pneumonia MRSA positive-on 10/27 Leukocytosis ID following- Antibiotics per ID ( Zosyn) monitor for signs of infection ( Fever , WBC) 11/14 Obtain blood , urine - NGTD 11/16 Obtain sputum cultures- Kleb pneumonia Monitor CBC Endocrine: Glucose monitoring per ICU protocol-low dose regimen -- SSI(medium scale) Levemir 5u Q12 Prophylaxis: GI Prophylaxis Famotidine BID DVT Prophylaxis -- SCDs Continue home dose Eliquis 5 mg BID Lines: PIVs 2. Level 3 Problem Qualifiers (1) COPD (chronic obstructive pulmonary disease): Qualified Codes: J44.9 - Chronic obstructive pulmonary disease, unspecified (2) Leukocytosis: Qualified Codes: D72.829 - Elevated white blood cell count, unspecified Carmen Richard MD Nov 20, 2017 07:27
[2017-11-20 07:33] LABS: BICARBONATE 33.5 MEQ/L (21.0-32.0); CALCIUM 8.5 MG/DL (8.5-10.1); CREATININE 1.48 MG/DL (0.60-1.30)
[2017-11-20] MEDS: CHLORHEXIDINE 0.12% (ORAL KIT) 15 ML CUP MT SCH ×2 (08:00→21:20)
[2017-11-20] MEDS: APIXABAN 5 MG TABLET PO SCH ×2 (08:02→21:22)
[2017-11-20] MEDS: METOPROLOL TARTRATE 50 MG TAB PO SCH ×2 (08:02→21:22)
[2017-11-20] MEDS: DOCUSATE SODIUM 50 MG/SENNA 8.6 MG TAB PO SCH ×2 (08:02→21:22)
[2017-11-20] MEDS: DILTIAZEM HCL 60 MG TAB PO SCH ×4 (08:02→21:00)
[2017-11-20] MEDS: SODIUM CHLORIDE 0.9% FLUSH 10 ML FLUSH IV FLUSH SCH ×2 (08:03→21:21)
[2017-11-20] MEDS: FAMOTIDINE 20 MG/2 ML VIAL IV PUSH SCH ×2 (08:03→21:21)
[2017-11-20] MEDS: methylPREDNISolone SOD SUCC 40 MG/1 ML VIAL IV PUSH SCH (08:03)
[2017-11-20] MEDS: BUDESONIDE-FORMOTEROL 160/4.5 MCG INHALER INH SCH ×2 (08:03→21:00)
[2017-11-20] MEDS: INSULIN DETEMIR 100 UNITS/ML VIAL SQ SCH ×2 (09:00→21:22)
[2017-11-20 09:25] LABS: OVALOCYTES 1+ (NORMAL)
[2017-11-20] MEDS: METOPROLOL TARTRATE 5 MG/5 ML VIAL IV PUSH PRN (10:33)
[2017-11-20] MEDS: SODIUM CHLOR 0.9% 1000 ML INJ 1,000 ML IV SCH (11:40)
--- NOTE | 2017-11-20 13:46 | HHI.PR ---
Subjective Remarks the patient intubated on mechanical ventilator. He failed a trial of extubation after he aspirated on water He failed a weaning trial today again Objective Vital Signs Date Time Temp Pulse Resp B/P (MAP) Pulse Ox O2 Delivery O2 Flow Rate FiO2 11/20/17 13:27 97 40 11/20/17 12:56 95 40 11/20/17 10:41 93 40 11/20/17 08:35 97 40 11/20/17 08:00 99.9 134 10 119/70 (86) 95 11/20/17 08:00 138 11/20/17 07:37 40 11/20/17 07:37 98 40 11/20/17 06:00 98 11/20/17 04:00 97 11/20/17 04:00 99.1 97 19 93/57 (69) 97 11/20/17 04:00 40 11/20/17 03:39 97 40 11/20/17 02:00 106 11/20/17 00:03 98 40 11/20/17 00:00 98.3 82 21 126/72 (90) 93 11/20/17 00:00 40 11/20/17 00:00 82 11/19/17 22:00 90 11/19/17 20:02 99 40 11/19/17 20:00 40 11/19/17 20:00 99.1 112 14 135/78 (97) 94 11/19/17 20:00 112 11/19/17 18:30 120 11/19/17 18:00 133 11/19/17 17:30 133 11/19/17 17:00 133 11/19/17 16:30 133 11/19/17 16:15 132 11 94/63 (73) 95 11/19/17 16:00 99.3 135 16 139/67 (91) 96 11/19/17 16:00 40 11/19/17 16:00 135 11/19/17 15:45 130 11 120/59 (79) 95 11/19/17 15:31 141 32 133/84 (100) 92 11/19/17 15:30 134 11/19/17 15:15 138 9 136/68 (90) 95 11/19/17 15:09 96 40 11/19/17 15:00 134 15 149/92 (111) 92 11/19/17 15:00 134 11/19/17 14:45 129 15 104/86 (92) 94 11/19/17 14:30 112 11 85/64 (71) 95 11/19/17 14:30 112 11/19/17 14:15 134 13 91/60 (70) 95 11/19/17 14:00 117 18 120/66 (84) 94 11/19/17 14:00 117 11/19/17 13:45 120 14 110/65 (80) 94 I/O 11/19/17 11/19/17 11/19/17 11/20/17 11/20/17 11/20/17 07:00 15:00 23:00 07:00 15:00 23:00 Intake Total 345 ml 232 ml 300 ml Output Total 500 ml 500 ml 900 ml Balance -155 ml -268 ml -600 ml IV Total 345 ml 100 ml Tube Feeding 132 ml 300 ml Output Urine Total 500 ml 500 ml 900 ml Stool Total 0 ml 0 ml 0 ml # Bowel Movements 0 0 Result Diagram: 11/20/1761611/20/17616 Objective Remarks General appearance:Intubated, neck: Trachea midline lungs: Bilateral basilar crackles Heart: S1-S2 irregular tachycardic abdomen: Obese extremities: Positive edema neurologic: Awake move extremities, sedated, did not followed commands Assessment and Plan Assessment and Plan ventilator dependent respiratory failure Pneumonia, likely aspiration COPD congestive heart failure AFib obesity volume overload chronic hypoxemia The patient does not look that he is a candidate for weaning Continue current treatment as per the piping manager Continue bronchodilators. optimize volume status. Avoid any volume overload as much as possible He will need aggressive physiotherapy. He will need to continue using his a trilogy and the noninvasive ventilation after extubation. Likely he would need placement with rehab Johnny Price MD Nov 20, 2017 13:46
[2017-11-20] MEDS: ATORVASTATIN 80 MG TAB PO SCH (21:22)
[2017-11-21] VITALS (22 sets, daily range): BP systolic 116–149; BP diastolic 73–85; PULSE 87–141; RESP 18; TEMP 98.1–99.2; O2SAT 93–100
[2017-11-21] MEDS: SODIUM CHLOR 0.9% 1000 ML INJ 1,000 ML IV SCH ×2 (00:09→12:20)
[2017-11-21] MEDS: INSULIN ASPART SUPPLEMENTAL SCALE SQ SCH ×4 (00:09→17:54)
[2017-11-21] MEDS: RESP: ALBUTEROL 2.5 MG/IPRATROPIUM 0.5 MG NEB (SCH) INH ×4 (03:34→20:37)
[2017-11-21] MEDS: PIPERACIL-TAZO 2.25 GM PREMIX 50 ML IV SCH ×3 (05:57→19:57)
[2017-11-21] MEDS: DILTIAZEM HCL 60 MG TAB PO SCH ×4 (07:46→19:58)
[2017-11-21] MEDS: FAMOTIDINE 20 MG/2 ML VIAL IV PUSH SCH ×2 (07:46→19:58)
[2017-11-21] MEDS: METOPROLOL TARTRATE 50 MG TAB PO SCH ×2 (07:46→19:58)
[2017-11-21] MEDS: DOCUSATE SODIUM 50 MG/SENNA 8.6 MG TAB PO SCH ×2 (07:46→19:58)
[2017-11-21] MEDS: APIXABAN 5 MG TABLET PO SCH ×2 (07:47→19:58)
[2017-11-21] MEDS: methylPREDNISolone SOD SUCC 40 MG/1 ML VIAL IV PUSH SCH (07:47)
[2017-11-21] MEDS: BUDESONIDE-FORMOTEROL 160/4.5 MCG INHALER INH SCH ×2 (07:47→19:59)
[2017-11-21] MEDS: CHLORHEXIDINE 0.12% (ORAL KIT) 15 ML CUP MT SCH ×2 (07:47→19:57)
[2017-11-21] MEDS: SODIUM CHLORIDE 0.9% FLUSH 10 ML FLUSH IV FLUSH SCH ×2 (07:47→19:57)
[2017-11-21] MEDS: INSULIN DETEMIR 100 UNITS/ML VIAL SQ SCH ×2 (07:48→19:59)
--- NOTE | 2017-11-21 09:54 | HHI.CCPN ---
Subjective Remarks/Hospital Course This is a 77-year-old male with a medical history significant for COPD, CHF, A. fib, diabetes, that presented to emergency department from [facility] for evaluation of worsening shortness of breath over the last 3 days. The patient was been given Solu-Medrol 125 mg and 2 albuterol treatments enroute to ED. Upon presentation to the ED the patient was on a nonrebreather. He was tachypneic and tachycardic. Patient's medical history significant for MRSA pneumonia previously admitted on 10/27/16 for approximately 12 days at [facility]. The patient is normally on 2.5 L/m nasal cannula O2 home dependency, and he lives with ( normally) a PCO2 in the 80s according to his . Patient was then discharged to [facility], and then transferred to [facility] for rehabilitation. He has been on an unknown antibiotic per the family and steroids for the last 3 days. Laboratory and imaging studies were performed with noted elevation in CO2 The patient was given empiric antibiotics in the ED and placed on BiPAP. Critical care medicine was consulted. Subjective: 11/15: Patient maintained on BiPAP throughout the night O2 saturations 97-98% on FiO2 of 0.40. Hemodynamically stable. Attempts made to wean patient to nasal cannula this a.m. unsuccessful, patient's O2 saturation in the 70s, patient placed back on BiPAP. Chest x-ray pending WBC count significantly diminished, leukocytosis resolved. Patient extremely anxious, Precedex infusion initiated. 11/16: Late entry note. Patient seen 10 AM. Overnight the patient converted to A. fib RVR, despite being on Cardizem 4 times a day and metoprolol twice a day- home medications, the patient received IV Cardizem followed by amiodarone infusion. Per report the patient became hypotensive, Cardizem discontinued. Amiodarone continued. Early this a.m. patient was resting comfortably A. fib rate controlled rate. The patient suddenly converted to A. fib RVR heart rate 150s-160s, acute hypoxemic respiratory failure, requiring intubation. The patient was intubated uneventfully and continues on amiodarone at 0.5 mg/hour, rate now controlled in conjunction with sedation. Cardiology consulted, his diagnostic radiologist is Dr. Parker X-ray revealed lung consolidation improved, chest x- ray clear. Plan for CPAP trials in a.m.. 11/17: No acute events overnight. Patient had 1 short 8 beat run of V. tach last evening was self resolution, electrolytes within normal limits. The patient continues on amiodarone 0.5 mg/hr. CPAP trials initiated this a.m.. Tube feeds initiated at trickle feeds. Patient converted to sinus rhythm at 2 AM. 11/18 Patient remains sedated and intubated. Afebrile. 11/19 Patient was extubated yesterday however last night he was noted to choke on water provided by the family. Stat ABG demonstrated acute hypercapnic respiratory failure and was emergently intubated. Currently sedated and intubated. 11/20 Patient remains intubated on Fentanyl drip however he si awake and alert. Afebrile. 11/21 Patient is awake and alert placed on CPAP with PS:15, PEEP:5. Afebrile. Objective Vital Signs Date Time Temp Pulse Resp B/P (MAP) Pulse Ox O2 Delivery O2 Flow Rate FiO2 11/21/17 07:33 100 40 11/21/17 06:00 97 11/21/17 04:00 99.2 18 140/73 (95) 11/18/17 16:00 Nasal Cannula 4.00 Intake and Output 11/21/17 11/21/17 11/22/17 08:00 16:00 00:00 Intake Total 1050 ml Output Total 950 ml Balance 100 ml Result Diagram: 11/20/17 0617 11/20/17 0617 Other Results Laboratory Tests Test 11/20/17 09:47 Blood Gas Puncture Site LT RADIAL Blood Gas Patient Temperature 98.6 Blood Gas HCO3 36 mmol/L Blood Gas Base Excess 10.3 mmol/L Blood Gas Oxygen Saturation 96 % Arterial Blood pH 7.34 Arterial Blood Partial Pressure CO2 70 mmHg Arterial Blood Partial Pressure O2 123 mmHg Arterial Blood Oxygen Content 13.3 Vol % Arterial Blood Carboxyhemoglobin 1.1 % Arterial Blood Methemoglobin 1.1 % Blood Gas Hemoglobin 9.7 G/DL Oxygen Delivery Device VENTILATOR Blood Gas Ventilator Setting CPAP+5/PS10 Blood Gas Inspired Oxygen 40 % Imaging Last Impressions Chest X-Ray 11/18/17 0600 Signed Impressions: Service Date/Time: October 04:26 - CONCLUSION: Left lower lobe consolidation. Shaq Eisenberg MD Objective Remarks GENERAL: Patient is 77 yo intubated and sedated SKIN: Warm and dry. HEAD: Normocephalic. EYES: No scleral icterus. No injection or drainage. NECK: Supple, trachea midline. No JVD or lymphadenopathy. CARDIOVASCULAR: Regular rate and rhythm without murmurs, gallops, or rubs. RESPIRATORY: Breath sounds equal bilaterally. No accessory muscle use. GASTROINTESTINAL: Abdomen soft, non-tender, nondistended. MUSCULOSKELETAL: No cyanosis, or edema. Neuro: sedated A/P Problem List: (1) A-fib ICD Code: I48.91 - Unspecified atrial fibrillation (2) CHF (congestive heart failure) ICD Code: I50.9 - Heart failure, unspecified Status: Chronic (3) HTN (hypertension) ICD Code: I10 - Essential (primary) hypertension Status: Chronic (4) ADRIAN (obstructive sleep apnea) ICD Code: G47.33 - Obstructive sleep apnea (adult) (pediatric) Status: Chronic (5) MRSA pneumonia ICD Code: J15.212 - Pneumonia due to Methicillin resistant Staphylococcus aureus Status: Acute (6) Diabetes mellitus type 2, insulin dependent ICD Code: E11.9 - Type 2 diabetes mellitus without complications; Z79.4 - senior care (current) use of insulin Status: Chronic (7) COPD (chronic obstructive pulmonary disease) ICD Code: J44.9 - Chronic obstructive pulmonary disease, unspecified Status: Acute (8) Respiratory distress ICD Code: R06.03 - Acute respiratory distress Status: Acute (9) Leukocytosis ICD Code: D72.829 - Elevated white blood cell count, unspecified Status: Acute (10) Lung consolidation ICD Code: J18.1 - Lobar pneumonia, unspecified organism Status: Acute (11) Anxiety ICD Code: F41.9 - Anxiety disorder, unspecified Status: Chronic Assessment and Plan Plan by systems: Neurologic: Anxiety disorder On fentanyl infusions to maintain ventilator synchrony and sedation Tylenol for pain and fever. 100.5 Daily sedation vacation Hold gabapentin 300mmg q HS home med Respiratory: VDRF- extubated and reintubated night of 11/18 after he was noted to chocke on water provided by family. COPD exacerbation Pneumonia-MRSA Obstructive sleep apnea Home O2 dependency Continue with vent support keep sats >92% Bronchodilators, methylprednisolone 40 mg IV daily Pulmonology following- Dr Price, SBT as kirby. Check CXR Cardiovascular: A. fib RVR History of CHF CAD On Eliquis 5 mg twice a day, atorvastatin 80 daily at bedtime, metoprolol 50 mg twice a day, Cardizem 60 mg 4 times a day . Cards is following- Dr. Parker- Renal: Monitor renal function, electrolytes replacement per protocol. On NS @75ml/hr. Follow up BMP FEN/GI: Electrolyte derangement GERD Continue tube feeds- On Jevity 1.5, Pepcid for GI prophylaxis Heme/ID: Pneumonia MRSA positive-on 10/27 Leukocytosis ID following- Antibiotics per ID ( Zosyn) monitor for signs of infection ( Fever , WBC) 11/14 Obtain blood , urine - NGTD 11/16 Obtain sputum cultures- Kleb pneumonia Monitor CBC Endocrine: Glucose monitoring per ICU protocol-low dose regimen -- SSI(medium scale) increase Levemir 10u Q12 Prophylaxis: GI Prophylaxis Famotidine BID DVT Prophylaxis -- SCDs Continue home dose Eliquis 5 mg BID Lines: PIVs 2. Level 3 Problem Qualifiers (1) COPD (chronic obstructive pulmonary disease): Qualified Codes: J44.9 - Chronic obstructive pulmonary disease, unspecified (2) Leukocytosis: Qualified Codes: D72.829 - Elevated white blood cell count, unspecified Carmen Richard MD Nov 21, 2017 09:54
--- NOTE | 2017-11-21 09:58 | HHI.PR ---
Subjective Remarks the patient intubated on mechanical ventilator. weaning trial today ..doing well so far Objective Vital Signs Date Time Temp Pulse Resp B/P (MAP) Pulse Ox O2 Delivery O2 Flow Rate FiO2 11/21/17 09:28 40 11/21/17 09:28 96 40 11/21/17 07:33 100 40 11/21/17 06:00 97 11/21/17 05:05 99 40 11/21/17 04:00 99.2 96 18 140/73 (95) 100 11/21/17 04:00 96 11/21/17 04:00 40 11/21/17 02:32 100 40 11/21/17 02:00 92 11/21/17 00:03 99 40 11/21/17 00:00 40 11/21/17 00:00 98.9 91 18 133/83 (100) 100 11/21/17 00:00 91 11/20/17 22:00 128 11/20/17 20:00 100 11/20/17 20:00 99.4 100 21 129/82 (98) 98 11/20/17 20:00 40 11/20/17 19:39 100 40 11/20/17 18:00 138 11/20/17 16:57 96 40 11/20/17 16:00 40 11/20/17 16:00 99.8 93 18 118/66 (83) 98 11/20/17 16:00 138 11/20/17 14:00 104 11/20/17 13:27 97 40 11/20/17 12:56 95 40 11/20/17 12:00 131 11/20/17 12:00 138 11/20/17 12:00 40 11/20/17 12:00 99.5 131 25 132/66 (88) 90 11/20/17 10:41 93 40 11/20/17 10:00 138 I/O 11/20/17 11/20/17 11/20/17 11/21/17 11/21/17 11/21/17 07:00 15:00 23:00 07:00 15:00 23:00 Intake Total 350 ml 1060 ml 1000 ml 50 ml Output Total 900 ml 850 ml 950 ml Balance -550 ml 210 ml 50 ml 50 ml IV Total 50 ml 1060 ml 1000 ml 50 ml Tube Feeding 300 ml 0 ml Output Urine Total 900 ml 850 ml 950 ml Stool Total 0 ml 0 ml # Bowel Movements 0 0 0 Result Diagram: 11/20/1761611/20/17616 Objective Remarks General appearance:Intubated, neck: Trachea midline lungs: Bilateral basilar crackles Heart: S1-S2 irregular tachycardic abdomen: Obese extremities: Positive edema neurologic: Awake move extremities, sedated, did not followed commands Assessment and Plan Assessment and Plan ventilator dependent respiratory failure Pneumonia, likely aspiration COPD congestive heart failure AFib obesity volume overload chronic hypoxemia The patient does look that he is a candidate for weaning I rec extubation Continue current treatment as per the wound care specialist Continue bronchodilators. optimize volume status. Avoid any volume overload as much as possible He will need aggressive physiotherapy. He will need to continue using his a trilogy and the noninvasive ventilation after extubation. Likely he would need placement with rehab d/w Dr Romero in details.. d/w at bedside Johnny Price MD Nov 21, 2017 09:58
--- NOTE | 2017-11-21 10:32 | RADRPT ---
EXAM DATE/TIME: 11/21/2017 10:03 [place] COMPARISON: CHEST SINGLE AP, November 18, 2017, 20:25. INDICATIONS : Short of breath. MEDICAL HISTORY : Chronic obstructive pulmonary disease. SURGICAL HISTORY : None. ENCOUNTER: Initial ACUITY: 1 day PAIN SCORE: Non-responsive. LOCATION: Bilateral chest FINDINGS: The endotracheal tube remains in good position well above the toña. Minimal streakiness is noted wi thin the left lung base consistent with atelectasis and/or infiltrate. A nasogastric tube has its tip in the stomach. The heart is stable. CONCLUSION: Left basilar streakiness consistent with atelectasis and/or infiltrate. Hossein Torres MD on November 21, 2017 at 10:28 Board Certified Radiologist. This report was verified electronically.
[2017-11-21 16:46] LABS: AUTOMATED NEUTROPHIL # 9.6 TH/MM3 (1.8-7.7); BASOPHIL % 0.1 % (0.0-2.0); HEMATOCRIT 32.1 % (39.0-51.0); HEMOGLOBIN 10.3 GM/DL (13.0-17.0); LYMPH % 6.3 % (9.0-44.0); LYMPHOCYTE # 0.7 TH/MM3 (1.0-4.8); MEAN CORPUSCULAR HEMOGLOBIN 26.9 PG (27.0-34.0); MEAN PLATELET VOLUME 8.3 FL (7.0-11.0); MONO % 2.1 % (0.0-8.0); MONOCYTE # 0.2 TH/MM3 (0-0.9); NEUT % 91.5 % (16.0-70.0); PLATELET COUNT 134 TH/MM3 (150-450); RED BLOOD COUNT 3.82 MIL/MM3 (4.50-5.90); RED CELL DISTRIBUTION WIDTH 17.1 % (11.6-17.2); WHITE BLOOD COUNT 10.5 TH/MM3 (4.0-11.0)
[2017-11-21 17:07] LABS: BICARBONATE 32.3 MEQ/L (21.0-32.0); CALCIUM 8.3 MG/DL (8.5-10.1); CREATININE 1.38 MG/DL (0.60-1.30)
[2017-11-21] MEDS: ATORVASTATIN 80 MG TAB PO SCH (19:58)
[2017-11-21] MEDS: CHLORHEXIDINE GLUCONATE 2 % 1 PACK (2 CLOTHS) TOP SCH (23:02)
[2017-11-22] VITALS (17 sets, daily range): BP systolic 126–168; BP diastolic 61–94; PULSE 70–167; RESP 18–38; TEMP 98.4–98.7; O2SAT 92–100
[2017-11-22] MEDS: INSULIN ASPART SUPPLEMENTAL SCALE SQ SCH ×4 (01:50→18:41)
[2017-11-22] MEDS: SODIUM CHLOR 0.9% 1000 ML INJ 1,000 ML IV SCH ×2 (01:50→13:50)
[2017-11-22] MEDS: PIPERACIL-TAZO 2.25 GM PREMIX 50 ML IV SCH ×3 (03:36→21:33)
[2017-11-22] MEDS: RESP: ALBUTEROL 2.5 MG/IPRATROPIUM 0.5 MG NEB (SCH) INH ×4 (04:07→20:39)
[2017-11-22 05:48] LABS: AUTOMATED NEUTROPHIL # 7.4 TH/MM3 (1.8-7.7); BASOPHIL % 0.2 % (0.0-2.0); HEMATOCRIT 31.1 % (39.0-51.0); HEMOGLOBIN 9.9 GM/DL (13.0-17.0); LYMPHOCYTE # 0.9 TH/MM3 (1.0-4.8); MEAN CELL VOLUME 84.4 FL (80.0-100.0); MEAN CORPUSCULAR HEMOGLOBIN 26.8 PG (27.0-34.0); MEAN CORPUSCULAR HGB CONC 31.8 % (32.0-36.0); MEAN PLATELET VOLUME 8.7 FL (7.0-11.0); MONO % 5.6 % (0.0-8.0); MONOCYTE # 0.5 TH/MM3 (0-0.9); NEUT % 84.2 % (16.0-70.0); PLATELET COUNT 142 TH/MM3 (150-450); RED BLOOD COUNT 3.68 MIL/MM3 (4.50-5.90); RED CELL DISTRIBUTION WIDTH 17.4 % (11.6-17.2); WHITE BLOOD COUNT 8.8 TH/MM3 (4.0-11.0)
[2017-11-22 05:54] LABS: BICARBONATE 29.3 MEQ/L (21.0-32.0); CALCIUM 8.2 MG/DL (8.5-10.1); CREATININE 1.25 MG/DL (0.60-1.30)
[2017-11-22] MEDS: hydrALAZINE HCL 20 MG/ML VIAL IV PUSH PRN (07:38)
[2017-11-22] MEDS ORDERED: DEXAMETHASONE SOD PHOS 20 MG/5 ML VIAL ONE ×2 (07:53→07:54)
[2017-11-22] MEDS: methylPREDNISolone SOD SUCC 40 MG/1 ML VIAL IV PUSH SCH (08:09)
[2017-11-22] MEDS: CHLORHEXIDINE 0.12% (ORAL KIT) 15 ML CUP MT SCH ×2 (08:09→21:34)
[2017-11-22] MEDS: SODIUM CHLORIDE 0.9% FLUSH 10 ML FLUSH IV FLUSH SCH ×2 (08:10→21:34)
[2017-11-22] MEDS: DOCUSATE SODIUM 50 MG/SENNA 8.6 MG TAB PO SCH ×2 (08:10→21:33)
[2017-11-22] MEDS: METOPROLOL TARTRATE 50 MG TAB PO SCH ×2 (08:10→21:34)
[2017-11-22] MEDS: INSULIN DETEMIR 100 UNITS/ML VIAL SQ SCH ×2 (08:10→21:35)
[2017-11-22] MEDS: APIXABAN 5 MG TABLET PO SCH ×2 (08:10→21:33)
[2017-11-22] MEDS: FAMOTIDINE 20 MG/2 ML VIAL IV PUSH SCH (08:10)
[2017-11-22] MEDS: DILTIAZEM HCL 60 MG TAB PO SCH ×4 (08:10→21:35)
[2017-11-22] MEDS ORDERED: DILTIAZEM HCL 50 MG/10 ML VIAL IV PUSH ONE ×2 (08:15→09:00)
[2017-11-22] MEDS: DEXMEDETOMIDINE 200 MCG in NS 48 ML IV PRN (08:27)
[2017-11-22] MEDS: BUDESONIDE-FORMOTEROL 160/4.5 MCG INHALER INH SCH ×2 (08:33→21:00)
--- NOTE | 2017-11-22 08:43 | HHI.CCPN ---
Subjective Remarks/Hospital Course This is a 77-year-old male with a medical history significant for COPD, CHF, A. fib, diabetes, that presented to emergency department from [facility] for evaluation of worsening shortness of breath over the last 3 days. The patient was been given Solu-Medrol 125 mg and 2 albuterol treatments enroute to ED. Upon presentation to the ED the patient was on a nonrebreather. He was tachypneic and tachycardic. Patient's medical history significant for MRSA pneumonia previously admitted on 10/27/16 for approximately 12 days at [facility]. The patient is normally on 2.5 L/m nasal cannula O2 home dependency, and he lives with ( normally) a PCO2 in the 80s according to his . Patient was then discharged to [facility], and then transferred to [facility] for rehabilitation. He has been on an unknown antibiotic per the family and steroids for the last 3 days. Laboratory and imaging studies were performed with noted elevation in CO2 The patient was given empiric antibiotics in the ED and placed on BiPAP. Critical care medicine was consulted. Subjective: 11/15: Patient maintained on BiPAP throughout the night O2 saturations 97-98% on FiO2 of 0.40. Hemodynamically stable. Attempts made to wean patient to nasal cannula this a.m. unsuccessful, patient's O2 saturation in the 70s, patient placed back on BiPAP. Chest x-ray pending WBC count significantly diminished, leukocytosis resolved. Patient extremely anxious, Precedex infusion initiated. 11/16: Late entry note. Patient seen 10 AM. Overnight the patient converted to A. fib RVR, despite being on Cardizem 4 times a day and metoprolol twice a day- home medications, the patient received IV Cardizem followed by amiodarone infusion. Per report the patient became hypotensive, Cardizem discontinued. Amiodarone continued. Early this a.m. patient was resting comfortably A. fib rate controlled rate. The patient suddenly converted to A. fib RVR heart rate 150s-160s, acute hypoxemic respiratory failure, requiring intubation. The patient was intubated uneventfully and continues on amiodarone at 0.5 mg/hour, rate now controlled in conjunction with sedation. Cardiology consulted, his occupational therapy supervisor is Dr. Parker X-ray revealed lung consolidation improved, chest x- ray clear. Plan for CPAP trials in a.m.. 11/17: No acute events overnight. Patient had 1 short 8 beat run of V. tach last evening was self resolution, electrolytes within normal limits. The patient continues on amiodarone 0.5 mg/hr. CPAP trials initiated this a.m.. Tube feeds initiated at trickle feeds. Patient converted to sinus rhythm at 2 AM. 11/18 Patient remains sedated and intubated. Afebrile. 11/19 Patient was extubated yesterday however last night he was noted to choke on water provided by the family. Stat ABG demonstrated acute hypercapnic respiratory failure and was emergently intubated. Currently sedated and intubated. 11/20 Patient remains intubated on Fentanyl drip however he si awake and alert. Afebrile. 11/21 Patient is awake and alert placed on CPAP with PS:15, PEEP:5. Afebrile. 11/22 Patient remains intubated , did not tolerate CPAP trials yesterday as he became tachycardic and hypertensive. On no sedation awake and alert. Objective Vital Signs Date Time Temp Pulse Resp B/P (MAP) Pulse Ox O2 Delivery O2 Flow Rate FiO2 11/22/17 08:02 98 40 11/22/17 06:00 93 11/22/17 04:00 98.7 18 153/86 (108) 11/18/17 16:00 Nasal Cannula 4.00 Intake and Output 11/22/17 11/22/17 11/23/17 08:00 16:00 00:00 Intake Total 1285 ml Output Total 650 ml Balance 635 ml Result Diagram: 11/22/17 0515 11/22/17 0515 Other Results Laboratory Tests Test 11/21/17 15:27 11/22/17 05:15 White Blood Count 10.5 TH/MM3 8.8 TH/MM3 Red Blood Count 3.82 MIL/MM3 3.68 MIL/MM3 Hemoglobin 10.3 GM/DL 9.9 GM/DL Hematocrit 32.1 % 31.1 % Mean Corpuscular Volume 84.0 FL 84.4 FL Mean Corpuscular Hemoglobin 26.9 PG 26.8 PG Mean Corpuscular Hemoglobin Concent 32.0 % 31.8 % Red Cell Distribution Width 17.1 % 17.4 % Platelet Count 134 TH/MM3 142 TH/MM3 Mean Platelet Volume 8.3 FL 8.7 FL Neutrophils (%) (Auto) 91.5 % 84.2 % Lymphocytes (%) (Auto) 6.3 % 10.0 % Monocytes (%) (Auto) 2.1 % 5.6 % Eosinophils (%) (Auto) 0.0 % 0.0 % Basophils (%) (Auto) 0.1 % 0.2 % Neutrophils # (Auto) 9.6 TH/MM3 7.4 TH/MM3 Lymphocytes # (Auto) 0.7 TH/MM3 0.9 TH/MM3 Monocytes # (Auto) 0.2 TH/MM3 0.5 TH/MM3 Eosinophils # (Auto) 0.0 TH/MM3 0.0 TH/MM3 Basophils # (Auto) 0.0 TH/MM3 0.0 TH/MM3 CBC Comment DIFF FINAL DIFF FINAL Differential Comment Blood Urea Nitrogen 56 MG/DL 52 MG/DL Creatinine 1.38 MG/DL 1.25 MG/DL Random Glucose 238 MG/DL 287 MG/DL Calcium Level 8.3 MG/DL 8.2 MG/DL Sodium Level 145 MEQ/L 145 MEQ/L Potassium Level 3.9 MEQ/L 3.8 MEQ/L Chloride Level 106 MEQ/L 108 MEQ/L Carbon Dioxide Level 32.3 MEQ/L 29.3 MEQ/L Anion Gap 7 MEQ/L 8 MEQ/L Estimat Glomerular Filtration Rate 50 ML/MIN 56 ML/MIN Imaging Last Impressions Chest X-Ray 11/21/17 0000 Signed Impressions: Service Date/Time: Tuesday, November 21, 2017 10:03 - CONCLUSION: Left basilar streakiness consistent with atelectasis and/or infiltrate. Hossein Torres MD Objective Remarks GENERAL: Patient is 77 yo intubated SKIN: Warm and dry. HEAD: Normocephalic. EYES: No scleral icterus. No injection or drainage. NECK: Supple, trachea midline. No JVD or lymphadenopathy. CARDIOVASCULAR: Regular rate and rhythm without murmurs, gallops, or rubs. RESPIRATORY: Breath sounds equal bilaterally. No accessory muscle use. GASTROINTESTINAL: Abdomen soft, non-tender, nondistended. MUSCULOSKELETAL: No cyanosis, or edema. Neuro: Awake following commands. A/P Problem List: (1) A-fib ICD Code: I48.91 - Unspecified atrial fibrillation (2) CHF (congestive heart failure) ICD Code: I50.9 - Heart failure, unspecified Status: Chronic (3) HTN (hypertension) ICD Code: I10 - Essential (primary) hypertension Status: Chronic (4) ADRIAN (obstructive sleep apnea) ICD Code: G47.33 - Obstructive sleep apnea (adult) (pediatric) Status: Chronic (5) MRSA pneumonia ICD Code: J15.212 - Pneumonia due to Methicillin resistant Staphylococcus aureus Status: Acute (6) Diabetes mellitus type 2, insulin dependent ICD Code: E11.9 - Type 2 diabetes mellitus without complications; Z79.4 - MCC (current) use of insulin Status: Chronic (7) COPD (chronic obstructive pulmonary disease) ICD Code: J44.9 - Chronic obstructive pulmonary disease, unspecified Status: Acute (8) Respiratory distress ICD Code: R06.03 - Acute respiratory distress Status: Acute (9) Leukocytosis ICD Code: D72.829 - Elevated white blood cell count, unspecified Status: Acute (10) Lung consolidation ICD Code: J18.1 - Lobar pneumonia, unspecified organism Status: Acute (11) Anxiety ICD Code: F41.9 - Anxiety disorder, unspecified Status: Chronic Assessment and Plan Plan by systems: Neurologic: Anxiety disorder Off sedation monitor neuro status Precedex drip to facility with weaning trials. Hold gabapentin 300mmg q HS home med Respiratory: VDRF- extubated and reintubated night of 11/18 after he was noted to chocke on water provided by family. COPD exacerbation Pneumonia-MRSA Obstructive sleep apnea Home O2 dependency Continue with vent support keep sats >92% Bronchodilators, methylprednisolone 40 mg IV daily Pulmonology following- Dr Price, SBT as kirby. Cardiovascular: A. fib RVR History of CHF CAD On Eliquis 5 mg twice a day, atorvastatin 80 daily at bedtime, metoprolol 50 mg twice a day, Cardizem 60 mg 4 times a day . Cards is following- Dr. Parker- Check 2D echo Renal: Monitor renal function, electrolytes replacement per protocol. Decrease NS @50ml/hr. Renal function is improving with Cr:1.25 from 1.38 FEN/GI: Electrolyte derangement GERD Continue tube feeds- On Jevity 1.5, Pepcid for GI prophylaxis Heme/ID: Pneumonia MRSA positive-on 10/27 Leukocytosis ID following- Antibiotics per ID ( Zosyn) monitor for signs of infection ( Fever , WBC) 11/14 Obtain blood , urine - NGTD 11/16 Obtain sputum cultures- Kleb pneumonia Monitor CBC Endocrine: Glucose monitoring per ICU protocol-low dose regimen -- SSI(medium scale) increase Levemir 14u Q12 Prophylaxis: GI Prophylaxis Famotidine BID DVT Prophylaxis -- SCDs Continue home dose Eliquis 5 mg BID Lines: PIVs 2. Level 3 Problem Qualifiers (1) COPD (chronic obstructive pulmonary disease): Qualified Codes: J44.9 - Chronic obstructive pulmonary disease, unspecified (2) Leukocytosis: Qualified Codes: D72.829 - Elevated white blood cell count, unspecified Carmen Richard MD Nov 22, 2017 08:43
[2017-11-22] MEDS ORDERED: INSULIN DETEMIR 100 UNITS/ML VIAL SQ ONE (09:30)
--- NOTE | 2017-11-22 12:15 | HHI.IDPN ---
Note Infectious Disease Note ID Xcover for 77-year-old, white male who presents to the Emergency Department with shortness of breath. The patient has a history of COPD and CHF. He usually uses CPAP at the assisted living facility. He was noted to have been developing coughing and shortness of breath over the past couple of days, and his states that he was coughing a lot yesterday and bringing up mostly phlegm and that he was restless and could not sleep. Recently treated at [facility] for pneumonia due to methicillin-resistant Staphylococcus aureus. His states that he was still on the oral antibiotic for pneumonia and that he has 2 more days of the medication to complete therapy with Zyvox. Patient was extubated yesterday and had to be reintubated. He is noted to have aspirated while being given water to drink. He is now on CPAP. Sedated. [place]. Afebrile. PAST MEDICAL HISTORY: COPD, CHF, atrial fibrillation, insulin-dependent diabetes mellitus, hypertension, hyperlipidemia, gastroesophageal reflux, gastroparesis, iron deficiency anemia, oxygen-dependent. PAST SURGICAL HISTORY: Right knee surgery, right carpal tunnel release, cardiac ablation treatment 2002. ALLERGIES: ASPIRIN, CODEINE. Current Medications Medications (Trade) Dose Ordered Sig/Yani Route Start Time Stop Time Status Last Admin (NS Flush) 2 ml UNSCH PRN IV FLUSH 11/14/17 15:45 11/17/17 14:05 (NS Flush) 2 ml BID IV FLUSH 11/14/17 21:00 11/22/17 08:10 (Tylenol) 650 mg Q6H PRN PO 11/14/17 15:45 11/15/17 20:11 (Zofran Inj) 4 mg Q6H PRN IV PUSH 11/14/17 15:45 11/18/17 16:03 Miscellaneous Information 1 Q361D XX 11/14/17 15:45 11/14/17 15:45 (Chlorhexidine 2% Cloth) Taper DAILY@04 TOP 11/15/17 04:00 11/11/18 03:59 11/20/17 04:00 (Chlorhexidine 2% Cloth) 3 pack UNSCH PRN TOP 11/14/17 15:45 (Ricarda-Colace) 1 tab BID PO 11/14/17 21:00 11/22/17 08:10 (Milk Of Magnesia Liq) 30 ml Q12H PRN PO 11/14/17 15:45 (Senokot) 17.2 mg Q12H PRN PO 11/14/17 15:45 (Dulcolax Supp) 10 mg DAILY PRN RECTAL 11/14/17 15:45 (Lactulose Liq) 30 ml DAILY PRN PO 11/14/17 15:45 Potassium Chloride 100 ml @ 50 mls/hr Q2H PRN IV 11/14/17 15:45 Potassium Chloride 100 ml @ 50 mls/hr Q2H PRN IV 11/14/17 15:45 (K-Lyte Cl Eff) 50 meq UNSCH PRN PO 11/14/17 15:45 Potassium Chloride 100 ml @ 25 mls/hr UNSCH PRN IV 11/14/17 15:45 Potassium Chloride 100 ml @ 50 mls/hr Q2H PRN IV 11/14/17 15:45 Magnesium Sulfate 4 gm/Sodium Chloride 100 ml @ 50 mls/hr UNSCH PRN IV 11/14/17 15:45 (Mag-Ox) 800 mg UNSCH PRN PO 11/14/17 15:45 Magnesium Sulfate 2 gm/Sodium Chloride 100 ml @ 50 mls/hr UNSCH PRN IV 11/14/17 15:45 (K-Phos) 2,000 mg Q4H PRN PO 11/14/17 15:45 Sodium Phosphate 30 mmol/Sodium Chloride 250 ml @ 42 mls/hr UNSCH PRN IV 11/14/17 15:45 (K-Phos) 2,000 mg UNSCH PRN PO/TUBE 11/14/17 15:45 Potassium Phosphate 30 mmol/ Sodium Chloride 260 ml @ 42 mls/hr UNSCH PRN IV 11/14/17 15:45 (Eliquis) 5 mg BID PO 11/14/17 21:00 11/22/17 08:10 (Lipitor) 80 mg HS PO 11/14/17 21:00 11/21/17 19:58 (Lanoxin) 0.125 mg DAILY PO 11/15/17 09:00 Future Hold 11/17/17 08:24 (Cardizem) 60 mg QID PO 11/14/17 18:00 11/22/17 08:10 (Lopressor) 50 mg BID PO 11/14/17 21:00 11/22/17 08:10 Patient Own Medication PT OWN MED: Mometas... HS INH 11/14/17 21:00 Future Hold (Lopressor Inj) 2.5 mg Q6H PRN IV PUSH 11/15/17 09:15 11/20/17 10:33 (D50w (Vial) Inj) 50 ml UNSCH PRN IV PUSH 11/16/17 18:00 (Glucagon Inj) 1 mg UNSCH PRN OTHER 11/16/17 18:00 (Apresoline Inj) 20 mg Q4H PRN IV PUSH 11/17/17 12:00 11/22/17 07:38 (NovoLOG SUPPLEMENTAL SCALE) 1 Q6H SQ 11/18/17 18:00 11/22/17 05:20 (SoluMEDROL INJ) 40 mg DAILY IV PUSH 11/19/17 09:00 11/22/17 08:09 (Symbicort 160-4.5 Mcg Inh) 2 puff Q12HR INH 11/18/17 21:00 11/22/17 08:33 Fentanyl Citrate 250 ml @ 5 mls/hr TITRATE PRN IV 11/18/17 22:15 11/19/17 15:38 (Peridex 0.12% Liq) 15 ml BID@08,20 MT 11/19/17 08:00 11/22/17 08:09 (Duoneb Neb) 1 ampule Q6HR NEB INH 11/19/17 04:00 11/22/17 08:00 (Duoneb Neb) 1 ampule Q2HR NEB PRN INH 11/18/17 22:30 Sodium Chloride 1,000 ml @ 50 mls/hr Q20H IV 11/19/17 09:00 11/22/17 01:50 (Pepcid Inj) 10 mg Q12HR IV PUSH 11/19/17 21:00 11/22/17 08:10 Piperacillin Sod/ Tazobactam Sod 50 ml @ 100 mls/hr Q8H IV 11/19/17 20:00 11/22/17 03:36 Dexmedetomidine HCl 200 mcg/ Sodium Chloride 50 ml @ 5.05 mls/hr TITRATE PRN IV 11/22/17 08:15 11/22/17 08:27 (Levemir Inj) 14 units Q12HR SQ 11/22/17 21:00 OBJECTIVE: Vital Signs Date Time Temp Pulse Resp B/P (MAP) Pulse Ox O2 Delivery O2 Flow Rate FiO2 11/22/17 11:16 97 40 11/22/17 10:00 110 11/22/17 08:02 98 40 11/22/17 08:00 167 11/22/17 08:00 98.4 167 30 168/88 (114) 99 11/22/17 08:00 40 11/22/17 06:00 93 11/22/17 04:07 98 40 11/22/17 04:00 40 11/22/17 04:00 101 11/22/17 04:00 98.7 101 18 153/86 (108) 98 11/22/17 02:00 96 11/22/17 00:51 100 40 11/22/17 00:00 40 11/22/17 00:00 93 11/22/17 00:00 98.4 93 18 160/94 (116) 99 11/21/17 22:00 89 11/21/17 20:40 99 40 11/21/17 20:00 40 11/21/17 20:00 95 11/21/17 20:00 98.1 95 18 149/85 (106) 98 11/21/17 18:00 96 11/21/17 16:58 98 40 11/21/17 16:00 40 11/21/17 16:00 90 11/21/17 16:00 98.6 97 18 148/85 (106) 99 11/21/17 14:00 100 11/21/17 13:21 100 40 Laboratory Tests Test 11/21/17 15:27 11/22/17 05:15 White Blood Count 10.5 TH/MM3 8.8 TH/MM3 Red Blood Count 3.82 MIL/MM3 3.68 MIL/MM3 Hemoglobin 10.3 GM/DL 9.9 GM/DL Hematocrit 32.1 % 31.1 % Mean Corpuscular Volume 84.0 FL 84.4 FL Mean Corpuscular Hemoglobin 26.9 PG 26.8 PG Mean Corpuscular Hemoglobin Concent 32.0 % 31.8 % Red Cell Distribution Width 17.1 % 17.4 % Platelet Count 134 TH/MM3 142 TH/MM3 Mean Platelet Volume 8.3 FL 8.7 FL Neutrophils (%) (Auto) 91.5 % 84.2 % Lymphocytes (%) (Auto) 6.3 % 10.0 % Monocytes (%) (Auto) 2.1 % 5.6 % Eosinophils (%) (Auto) 0.0 % 0.0 % Basophils (%) (Auto) 0.1 % 0.2 % Neutrophils # (Auto) 9.6 TH/MM3 7.4 TH/MM3 Lymphocytes # (Auto) 0.7 TH/MM3 0.9 TH/MM3 Monocytes # (Auto) 0.2 TH/MM3 0.5 TH/MM3 Eosinophils # (Auto) 0.0 TH/MM3 0.0 TH/MM3 Basophils # (Auto) 0.0 TH/MM3 0.0 TH/MM3 CBC Comment DIFF FINAL DIFF FINAL Differential Comment Microbiology Date/Time Source Procedure Growth Status 11/14/17 13:45 Blood Peripheral Aerobic Blood Culture - Final NO GROWTH IN 5 DAYS Complete 11/14/17 13:45 Blood Peripheral Anaerobic Blood Culture - Final NO GROWTH IN 5 DAYS Complete 11/15/17 16:50 Sputum Expectorated Sputum Gram Stain - Final Complete 11/15/17 16:50 Sputum Culture - Final Klebsiella Pneumoniae Complete 11/16/17 11:30 Urine Catheterized Urine Urine Culture - Final NO GROWTH IN 48 HOURS. Complete IMAGING: Last Impressions Chest X-Ray 11/21/17 0000 Signed Impressions: Service Date/Time: Tuesday, November 21, 2017 10:03 - CONCLUSION: Left basilar streakiness consistent with atelectasis and/or infiltrate. Hossein Torres MD Chest X-Ray 11/16/17 0600 Signed Impressions: Service Date/Time: Thursday, November 16, 2017 03:18 - CONCLUSION: No infiltrates seen. Shaq Eisenberg MD Chest X-Ray 11/16/17 0000 Signed Impressions: Service Date/Time: Thursday, November 16, 2017 09:56 - CONCLUSION: 1. ET tube in good position. 2. No pneumothorax. Erik Eason MD Chest X-Ray 11/15/17 0000 Signed Impressions: Service Date/Time: Wednesday, November 15, 2017 09:32 - CONCLUSION: 1. No acute abnormality or significant interval change. Anil Aldana MD PHYSICAL EXAMINATION: GENERAL: Sedated. HEENT: Unable to assess adequately since patient is on the ventilator. NECK: No swelling or adenopathy. LUNGS: Bilateral rhonchi. HEART: Regular without audible murmurs. ABDOMEN: Bowel sounds present, but diminished; obese, soft. No tenderness EXTREMITIES: 1+ edema of the lower extremities, bilateral. No clubbing or cyanosis. SKIN: No diffuse rash. NEUROLOGIC: Nonfocal. PSYCHIATRIC: Calm and cooperative. IMPRESSION: 1. Probable sepsis. 2. Pneumonia gram-negative. Klebsiella 3. Acute respiratory failure. Extubated and appears to have aspirated. 4. Leukocytosis: infection, steroids. 4. History of chronic obstructive pulmonary disease and recent chronic obstructive pulmonary disease exacerbation. He is also receiving Solu-Medrol which can increase the white cell count. RECOMMENDATIONS: 1. Continue Zosyn IV. Will transition to oral and deescalate once extubated. 2. Monitor white blood cell count 3. monitor clinical status. Discussed with at bedside. Pam Peres RN, MD Nov 22, 2017 12:15
--- NOTE | 2017-11-22 13:30 | ECHRPT ---
Indication: CAD CONCLUSIONS The left ventricular systolic function is hyperdynamic with an estimated ejection fraction in the ra nge of 65- 70%. Normal left ventricular size. Wall thickness is normal. BP: / HR: Rhythm: Atrial fibrillation MEASUREMENTS (Male / Female) Normal Values Technical Quality:Very technically difficult study 2D ECHO LV Diastolic Diameter PLAX 3.9 cm 4.2 - 5.9 / 3.9 - 5.3 cm LV Systolic Diameter PLAX 2.6 cm IVS Diastolic Thickness 1.2 cm 0.6 - 1.0 / 0.6 - 0.9 cm LVPW Diastolic Thickness 1.2 cm 0.6 - 1.0 / 0.6 - 0.9 cm LV Relative Wall Thickness 0.6 LVOT Diameter 1.8 cm M-MODE Aortic Root Diameter MM 2.8 cm AV Cusp Separation MM 2.4 cm DOPPLER AV Peak Velocity 132.5 cm/s AV Peak Gradient 7.0 mmHg LVOT Peak Velocity 75.0 cm/s LVOT Peak Gradient 2.3 mmHg AV Area Cont Eq pk 1.4 cm MV Area PHT 3.9 cm FINDINGS LEFT VENTRICLE The left ventricular systolic function is hyperdynamic with an estimated ejection fraction in the ra nge of 65- 70%. Normal left ventricular size. Wall thickness is normal. RIGHT VENTRICLE Normal right ventricular size and systolic function. LEFT ATRIUM The left atrial size is normal. RIGHT ATRIUM The right atrial size is normal. ATRIAL SEPTUM Normal atrial septal thickness without atrial level shunting by limited color doppler interrogation. AORTA The aortic root and proximal ascending aorta are normal in size on limited imaging. MITRAL VALVE Structurally normal mitral valve. No mitral valve stenosis or regurgitation. AORTIC VALVE Trileaflet aortic valve. No aortic valve stenosis or regurgitation. TRICUSPID VALVE Structurally normal tricuspid valve. No tricuspid valve stenosis or regurgitation. PULMONARY VALVE The pulmonary valve is not well visualized. VESSELS The inferior vena cava is normal in size. PERICARDIUM No pericardial effusion. Santy Parker MD, FACC (Electronically Signed) Final Date:22 November 2017 13:29
[2017-11-22] MEDS: FAMOTIDINE 20 MG TAB PO SCH (21:33)
[2017-11-22] MEDS: ATORVASTATIN 80 MG TAB PO SCH (21:34)
[2017-11-23] VITALS (15 sets, daily range): BP systolic 97–143; BP diastolic 60–96; PULSE 58–129; RESP 18–27; TEMP 97.5–97.9; O2SAT 95–100
[2017-11-23] MEDS: RESP: ALBUTEROL 2.5 MG/IPRATROPIUM 0.5 MG NEB (SCH) INH (02:18)
[2017-11-23] MEDS: CHLORHEXIDINE GLUCONATE 2 % 1 PACK (2 CLOTHS) TOP SCH (04:00)
[2017-11-23] MEDS: PIPERACIL-TAZO 2.25 GM PREMIX 50 ML IV SCH ×3 (04:19→20:36)
[2017-11-23] MEDS: INSULIN ASPART SUPPLEMENTAL SCALE SQ SCH ×4 (06:00→18:00)
[2017-11-23] MEDS: CHLORHEXIDINE 0.12% (ORAL KIT) 15 ML CUP MT SCH ×2 (08:12→20:00)
[2017-11-23] MEDS: BUDESONIDE-FORMOTEROL 160/4.5 MCG INHALER INH SCH ×2 (08:12→20:36)
[2017-11-23] MEDS: SODIUM CHLORIDE 0.9% FLUSH 10 ML FLUSH IV FLUSH SCH ×2 (08:12→20:36)
[2017-11-23] MEDS: methylPREDNISolone SOD SUCC 40 MG/1 ML VIAL IV PUSH SCH (08:13)
[2017-11-23] MEDS: APIXABAN 5 MG TABLET PO SCH ×2 (08:14→20:36)
[2017-11-23] MEDS: INSULIN DETEMIR 100 UNITS/ML VIAL SQ SCH ×2 (08:14→20:37)
[2017-11-23] MEDS: FAMOTIDINE 20 MG TAB PO SCH ×2 (08:14→20:37)
[2017-11-23] MEDS: DOCUSATE SODIUM 50 MG/SENNA 8.6 MG TAB PO SCH ×2 (08:14→20:37)
--- NOTE | 2017-11-23 08:21 | HHI.CCPN ---
Subjective Remarks/Hospital Course This is a 77-year-old male with a medical history significant for COPD, CHF, A. fib, diabetes, that presented to emergency department from [facility] for evaluation of worsening shortness of breath over the last 3 days. The patient was been given Solu-Medrol 125 mg and 2 albuterol treatments enroute to ED. Upon presentation to the ED the patient was on a nonrebreather. He was tachypneic and tachycardic. Patient's medical history significant for MRSA pneumonia previously admitted on 10/27/16 for approximately 12 days at [facility]. The patient is normally on 2.5 L/m nasal cannula O2 home dependency, and he lives with ( normally) a PCO2 in the 80s according to his . Patient was then discharged to [facility], and then transferred to [facility] for rehabilitation. He has been on an unknown antibiotic per the family and steroids for the last 3 days. Laboratory and imaging studies were performed with noted elevation in CO2 The patient was given empiric antibiotics in the ED and placed on BiPAP. Critical care medicine was consulted. Subjective: 11/15: Patient maintained on BiPAP throughout the night O2 saturations 97-98% on FiO2 of 0.40. Hemodynamically stable. Attempts made to wean patient to nasal cannula this a.m. unsuccessful, patient's O2 saturation in the 70s, patient placed back on BiPAP. Chest x-ray pending WBC count significantly diminished, leukocytosis resolved. Patient extremely anxious, Precedex infusion initiated. 11/16: Late entry note. Patient seen 10 AM. Overnight the patient converted to A. fib RVR, despite being on Cardizem 4 times a day and metoprolol twice a day- home medications, the patient received IV Cardizem followed by amiodarone infusion. Per report the patient became hypotensive, Cardizem discontinued. Amiodarone continued. Early this a.m. patient was resting comfortably A. fib rate controlled rate. The patient suddenly converted to A. fib RVR heart rate 150s-160s, acute hypoxemic respiratory failure, requiring intubation. The patient was intubated uneventfully and continues on amiodarone at 0.5 mg/hour, rate now controlled in conjunction with sedation. Cardiology consulted, his compatibility test engineer is Dr. Parker X-ray revealed lung consolidation improved, chest x- ray clear. Plan for CPAP trials in a.m.. 11/17: No acute events overnight. Patient had 1 short 8 beat run of V. tach last evening was self resolution, electrolytes within normal limits. The patient continues on amiodarone 0.5 mg/hr. CPAP trials initiated this a.m.. Tube feeds initiated at trickle feeds. Patient converted to sinus rhythm at 2 AM. 11/18 Patient remains sedated and intubated. Afebrile. 11/19 Patient was extubated yesterday however last night he was noted to choke on water provided by the family. Stat ABG demonstrated acute hypercapnic respiratory failure and was emergently intubated. Currently sedated and intubated. 11/20 Patient remains intubated on Fentanyl drip however he si awake and alert. Afebrile. 11/21 Patient is awake and alert placed on CPAP with PS:15, PEEP:5. Afebrile. 11/22 Patient remains intubated , did not tolerate CPAP trials yesterday as he became tachycardic and hypertensive. On no sedation awake and alert. 11/23 No events overnight, off sedation. Objective Vital Signs Date Time Temp Pulse Resp B/P (MAP) Pulse Ox O2 Delivery O2 Flow Rate FiO2 11/23/17 08:00 97.5 58 18 124/71 (88) 100 11/23/17 08:00 30 Intake and Output 11/23/17 11/23/17 11/24/17 08:00 16:00 00:00 Intake Total 1485 ml Output Total 800 ml Balance 685 ml Result Diagram: 11/22/17 0515 11/22/17 0515 Imaging Last Impressions Chest X-Ray 11/21/17 0000 Signed Impressions: Service Date/Time: Tuesday, November 21, 2017 10:03 - CONCLUSION: Left basilar streakiness consistent with atelectasis and/or infiltrate. Hossein Torres MD Objective Remarks GENERAL: Patient is 77 yo intubated SKIN: Warm and dry. HEAD: Normocephalic. EYES: No scleral icterus. No injection or drainage. NECK: Supple, trachea midline. No JVD or lymphadenopathy. CARDIOVASCULAR: Regular rate and rhythm without murmurs, gallops, or rubs. RESPIRATORY: Breath sounds equal bilaterally. No accessory muscle use. GASTROINTESTINAL: Abdomen soft, non-tender, nondistended. MUSCULOSKELETAL: No cyanosis, or edema. Neuro: Awake following commands. A/P Problem List: (1) A-fib ICD Code: I48.91 - Unspecified atrial fibrillation (2) CHF (congestive heart failure) ICD Code: I50.9 - Heart failure, unspecified Status: Chronic (3) HTN (hypertension) ICD Code: I10 - Essential (primary) hypertension Status: Chronic (4) ADRIAN (obstructive sleep apnea) ICD Code: G47.33 - Obstructive sleep apnea (adult) (pediatric) Status: Chronic (5) MRSA pneumonia ICD Code: J15.212 - Pneumonia due to Methicillin resistant Staphylococcus aureus Status: Acute (6) Diabetes mellitus type 2, insulin dependent ICD Code: E11.9 - Type 2 diabetes mellitus without complications; Z79.4 - nursing home (current) use of insulin Status: Chronic (7) COPD (chronic obstructive pulmonary disease) ICD Code: J44.9 - Chronic obstructive pulmonary disease, unspecified Status: Acute (8) Respiratory distress ICD Code: R06.03 - Acute respiratory distress Status: Acute (9) Leukocytosis ICD Code: D72.829 - Elevated white blood cell count, unspecified Status: Acute (10) Lung consolidation ICD Code: J18.1 - Lobar pneumonia, unspecified organism Status: Acute (11) Anxiety ICD Code: F41.9 - Anxiety disorder, unspecified Status: Chronic Assessment and Plan Plan by systems: Neurologic: Anxiety disorder Off sedation monitor neuro status Precedex drip if needed to facility with weaning trials. Hold gabapentin 300mmg q HS home med Respiratory: VDRF- extubated and reintubated night of 11/18 after he was noted to chocke on water provided by family. COPD exacerbation Pneumonia-MRSA Obstructive sleep apnea Home O2 dependency Continue with vent support keep sats >92% Bronchodilators, methylprednisolone 40 mg IV daily Pulmonology following- Dr Price, SBT as kirby. Cardiovascular: A. fib RVR History of CHF CAD On Eliquis 5 mg twice a day, atorvastatin 80 daily at bedtime, metoprolol 50 mg twice a day, Cardizem 60 mg 4 times a day . Cards is following- Dr. Parker- Echo showed EF 65-70% Renal: Monitor renal function, electrolytes replacement per protocol. d/c IVF Renal function is improving, follow up on BMP today FEN/GI: Electrolyte derangement GERD Continue tube feeds- On Jevity 1.5, Pepcid for GI prophylaxis Heme/ID: Pneumonia MRSA positive-on 10/27 Leukocytosis ID following- Antibiotics per ID ( Zosyn) monitor for signs of infection ( Fever , WBC) 11/14 Obtain blood , urine - NGTD 11/16 Obtain sputum cultures- Kleb pneumonia Monitor CBC Endocrine: Glucose monitoring per ICU protocol-low dose regimen -- SSI(medium scale) Levemir 14u Q12 Prophylaxis: GI Prophylaxis Famotidine BID DVT Prophylaxis -- SCDs Continue home dose Eliquis 5 mg BID Lines: PIVs 2. Level 3 Problem Qualifiers (1) COPD (chronic obstructive pulmonary disease): Qualified Codes: J44.9 - Chronic obstructive pulmonary disease, unspecified (2) Leukocytosis: Qualified Codes: D72.829 - Elevated white blood cell count, unspecified Carmen Richard MD Nov 23, 2017 08:21
[2017-11-23] MEDS: METOPROLOL TARTRATE 50 MG TAB PO SCH ×2 (09:55→20:37)
[2017-11-23] MEDS: DEXMEDETOMIDINE 200 MCG in NS 48 ML IV PRN ×4 (09:55→20:35)
[2017-11-23] MEDS: DILTIAZEM HCL 60 MG TAB PO SCH ×4 (09:55→20:36)
[2017-11-23 11:28] LABS: AUTOMATED NEUTROPHIL # 9.9 TH/MM3 (1.8-7.7); BASOPHIL % 0.2 % (0.0-2.0); EOSINOPHIL % 0.1 % (0.0-4.0); HEMATOCRIT 29.5 % (39.0-51.0); HEMOGLOBIN 9.3 GM/DL (13.0-17.0); LYMPH % 6.2 % (9.0-44.0); LYMPHOCYTE # 0.7 TH/MM3 (1.0-4.8); MEAN CELL VOLUME 85.3 FL (80.0-100.0); MEAN CORPUSCULAR HEMOGLOBIN 26.8 PG (27.0-34.0); MEAN CORPUSCULAR HGB CONC 31.4 % (32.0-36.0); MEAN PLATELET VOLUME 8.8 FL (7.0-11.0); MONO % 5.7 % (0.0-8.0); MONOCYTE # 0.6 TH/MM3 (0-0.9); NEUT % 87.8 % (16.0-70.0); PLATELET COUNT 166 TH/MM3 (150-450); RED BLOOD COUNT 3.47 MIL/MM3 (4.50-5.90); RED CELL DISTRIBUTION WIDTH 17.9 % (11.6-17.2); WHITE BLOOD COUNT 11.3 TH/MM3 (4.0-11.0)
--- NOTE | 2017-11-23 11:41 | HHI.IDPN ---
Note Infectious Disease Note ID [id number] for 77-year-old, white male who presents to the Emergency Department with shortness of breath. The patient has a history of COPD and CHF. He usually uses CPAP at the assisted living facility. He was noted to have been developing coughing and shortness of breath over the past couple of days, and his states that he was coughing a lot yesterday and bringing up mostly phlegm and that he was restless and could not sleep. Recently treated at [facility] for pneumonia due to methicillin-resistant Staphylococcus aureus. His states that he was still on the oral antibiotic for pneumonia and that he has 2 more days of the medication to complete therapy with Zyvox. Patient was extubated yesterday and had to be reintubated. He is noted to have aspirated while being given water to drink. He is now on CPAP. Sedated. [place]. Afebrile. PAST MEDICAL HISTORY: COPD, CHF, atrial fibrillation, insulin-dependent diabetes mellitus, hypertension, hyperlipidemia, gastroesophageal reflux, gastroparesis, iron deficiency anemia, oxygen-dependent. PAST SURGICAL HISTORY: Right knee surgery, right carpal tunnel release, cardiac ablation treatment 2002. ALLERGIES: ASPIRIN, CODEINE. Current Medications Medications (Trade) Dose Ordered Sig/Yani Route Start Time Stop Time Status Last Admin (NS Flush) 2 ml UNSCH PRN IV FLUSH 11/14/17 15:45 11/17/17 14:05 (NS Flush) 2 ml BID IV FLUSH 11/14/17 21:00 11/23/17 08:12 (Tylenol) 650 mg Q6H PRN PO 11/14/17 15:45 11/15/17 20:11 (Zofran Inj) 4 mg Q6H PRN IV PUSH 11/14/17 15:45 11/18/17 16:03 Miscellaneous Information 1 Q361D XX 11/14/17 15:45 11/14/17 15:45 (Chlorhexidine 2% Cloth) Taper DAILY@04 TOP 11/15/17 04:00 11/11/18 03:59 11/20/17 04:00 (Chlorhexidine 2% Cloth) 3 pack UNSCH PRN TOP 11/14/17 15:45 (Ricarda-Colace) 1 tab BID PO 11/14/17 21:00 11/23/17 08:14 (Milk Of Magnesia Liq) 30 ml Q12H PRN PO 11/14/17 15:45 (Senokot) 17.2 mg Q12H PRN PO 11/14/17 15:45 (Dulcolax Supp) 10 mg DAILY PRN RECTAL 11/14/17 15:45 (Lactulose Liq) 30 ml DAILY PRN PO 11/14/17 15:45 Potassium Chloride 100 ml @ 50 mls/hr Q2H PRN IV 11/14/17 15:45 Potassium Chloride 100 ml @ 50 mls/hr Q2H PRN IV 11/14/17 15:45 (K-Lyte Cl Eff) 50 meq UNSCH PRN PO 11/14/17 15:45 Potassium Chloride 100 ml @ 25 mls/hr UNSCH PRN IV 11/14/17 15:45 Potassium Chloride 100 ml @ 50 mls/hr Q2H PRN IV 11/14/17 15:45 Magnesium Sulfate 4 gm/Sodium Chloride 100 ml @ 50 mls/hr UNSCH PRN IV 11/14/17 15:45 (Mag-Ox) 800 mg UNSCH PRN PO 11/14/17 15:45 Magnesium Sulfate 2 gm/Sodium Chloride 100 ml @ 50 mls/hr UNSCH PRN IV 11/14/17 15:45 (K-Phos) 2,000 mg Q4H PRN PO 11/14/17 15:45 Sodium Phosphate 30 mmol/Sodium Chloride 250 ml @ 42 mls/hr UNSCH PRN IV 11/14/17 15:45 (K-Phos) 2,000 mg UNSCH PRN PO/TUBE 11/14/17 15:45 Potassium Phosphate 30 mmol/ Sodium Chloride 260 ml @ 42 mls/hr UNSCH PRN IV 11/14/17 15:45 (Eliquis) 5 mg BID PO 11/14/17 21:00 11/23/17 08:14 (Lipitor) 80 mg HS PO 11/14/17 21:00 11/22/17 21:34 (Lanoxin) 0.125 mg DAILY PO 11/15/17 09:00 Future Hold 11/17/17 08:24 (Cardizem) 60 mg QID PO 11/14/17 18:00 11/23/17 09:55 (Lopressor) 50 mg BID PO 11/14/17 21:00 11/23/17 09:55 Patient Own Medication PT OWN MED: Mometas... HS INH 11/14/17 21:00 Future Hold (Lopressor Inj) 2.5 mg Q6H PRN IV PUSH 11/15/17 09:15 11/20/17 10:33 (D50w (Vial) Inj) 50 ml UNSCH PRN IV PUSH 11/16/17 18:00 (Glucagon Inj) 1 mg UNSCH PRN OTHER 11/16/17 18:00 (Apresoline Inj) 20 mg Q4H PRN IV PUSH 11/17/17 12:00 11/22/17 07:38 (NovoLOG SUPPLEMENTAL SCALE) 1 Q6H SQ 11/18/17 18:00 11/23/17 06:00 (SoluMEDROL INJ) 40 mg DAILY IV PUSH 11/19/17 09:00 11/23/17 08:13 (Symbicort 160-4.5 Mcg Inh) 2 puff Q12HR INH 11/18/17 21:00 11/23/17 08:12 Fentanyl Citrate 250 ml @ 5 mls/hr TITRATE PRN IV 11/18/17 22:15 11/19/17 15:38 (Peridex 0.12% Liq) 15 ml BID@08,20 MT 11/19/17 08:00 11/23/17 08:12 (Duoneb Neb) 1 ampule Q2HR NEB PRN INH 11/18/17 22:30 Piperacillin Sod/ Tazobactam Sod 50 ml @ 100 mls/hr Q8H IV 11/19/17 20:00 11/23/17 04:19 Dexmedetomidine HCl 200 mcg/ Sodium Chloride 50 ml @ 5.05 mls/hr TITRATE PRN IV 11/22/17 08:15 11/23/17 09:55 (Levemir Inj) 14 units Q12HR SQ 11/22/17 21:00 11/23/17 08:14 (Pepcid) 10 mg BID PO 11/22/17 21:00 11/23/17 08:14 OBJECTIVE: Vital Signs Date Time Temp Pulse Resp B/P (MAP) Pulse Ox O2 Delivery O2 Flow Rate FiO2 11/23/17 10:00 129 11/23/17 08:52 30 11/23/17 08:52 98 30 11/23/17 08:00 97.5 58 18 124/71 (88) 100 11/23/17 08:00 58 11/23/17 08:00 30 11/23/17 04:00 97.5 60 18 137/64 (88) 98 11/23/17 04:00 30 11/23/17 03:55 99 40 11/23/17 00:49 100 40 11/23/17 00:00 30 11/23/17 00:00 97.8 123 27 143/96 (112) 96 11/22/17 20:40 95 40 11/22/17 20:00 30 11/22/17 20:00 74 38 162/82 (108) 95 11/22/17 18:00 71 11/22/17 16:00 30 11/22/17 16:00 98.4 70 21 126/61 (82) 96 11/22/17 16:00 70 11/22/17 15:06 98 40 11/22/17 14:00 70 11/22/17 12:00 98.5 78 30 142/65 (90) 92 11/22/17 12:00 78 11/22/17 12:00 40 Laboratory Tests Laboratory Tests Test 11/21/17 15:27 11/22/17 05:15 11/23/17 10:55 White Blood Count 10.5 TH/MM3 8.8 TH/MM3 11.3 TH/MM3 Red Blood Count 3.82 MIL/MM3 3.68 MIL/MM3 3.47 MIL/MM3 Hemoglobin 10.3 GM/DL 9.9 GM/DL 9.3 GM/DL Hematocrit 32.1 % 31.1 % 29.5 % Mean Corpuscular Volume 84.0 FL 84.4 FL 85.3 FL Mean Corpuscular Hemoglobin 26.9 PG 26.8 PG 26.8 PG Mean Corpuscular Hemoglobin Concent 32.0 % 31.8 % 31.4 % Red Cell Distribution Width 17.1 % 17.4 % 17.9 % Platelet Count 134 TH/MM3 142 TH/MM3 166 TH/MM3 Mean Platelet Volume 8.3 FL 8.7 FL 8.8 FL Neutrophils (%) (Auto) 91.5 % 84.2 % 87.8 % Lymphocytes (%) (Auto) 6.3 % 10.0 % 6.2 % Monocytes (%) (Auto) 2.1 % 5.6 % 5.7 % Eosinophils (%) (Auto) 0.0 % 0.0 % 0.1 % Basophils (%) (Auto) 0.1 % 0.2 % 0.2 % Neutrophils # (Auto) 9.6 TH/MM3 7.4 TH/MM3 9.9 TH/MM3 Lymphocytes # (Auto) 0.7 TH/MM3 0.9 TH/MM3 0.7 TH/MM3 Monocytes # (Auto) 0.2 TH/MM3 0.5 TH/MM3 0.6 TH/MM3 Eosinophils # (Auto) 0.0 TH/MM3 0.0 TH/MM3 0.0 TH/MM3 Basophils # (Auto) 0.0 TH/MM3 0.0 TH/MM3 0.0 TH/MM3 CBC Comment DIFF FINAL DIFF FINAL DIFF FINAL Differential Comment Microbiology Date/Time Source Procedure Growth Status 11/14/17 13:45 Blood Peripheral Aerobic Blood Culture - Final NO GROWTH IN 5 DAYS Complete 11/14/17 13:45 Blood Peripheral Anaerobic Blood Culture - Final NO GROWTH IN 5 DAYS Complete 11/15/17 16:50 Sputum Expectorated Sputum Gram Stain - Final Complete 11/15/17 16:50 Sputum Culture - Final Klebsiella Pneumoniae Complete 11/16/17 11:30 Urine Catheterized Urine Urine Culture - Final NO GROWTH IN 48 HOURS. Complete IMAGING: Last Impressions Chest X-Ray 11/21/17 0000 Signed Impressions: Service Date/Time: Tuesday, November 21, 2017 10:03 - CONCLUSION: Left basilar streakiness consistent with atelectasis and/or infiltrate. Hossein Torres MD PHYSICAL EXAMINATION: GENERAL: Sedated. HEENT: Unable to assess adequately since patient is on the ventilator. NECK: No swelling or adenopathy. LUNGS: Bilateral rhonchi. HEART: Regular without audible murmurs. ABDOMEN: Bowel sounds present, but diminished; obese, soft. No tenderness EXTREMITIES: 1+ edema of the lower extremities, bilateral. No clubbing or cyanosis. SKIN: No diffuse rash. NEUROLOGIC: Nonfocal. PSYCHIATRIC: Calm and cooperative. IMPRESSION: 1. Probable sepsis. 2. Pneumonia gram-negative. Klebsiella 3. Acute respiratory failure. Extubated and appears to have aspirated. 4. Leukocytosis: infection, steroids. 4. History of chronic obstructive pulmonary disease and recent chronic obstructive pulmonary disease exacerbation. He is also receiving Solu-Medrol which can increase the white cell count. RECOMMENDATIONS: 1. Continue Zosyn IV. Will transition to oral and deescalate once extubated. 2. Monitor white blood cell count 3. monitor clinical status. Discussed with at bedside. Pam Peres RN, MD Nov 23, 2017 11:41
[2017-11-23 11:44] LABS: BICARBONATE 29.9 MEQ/L (21.0-32.0); CALCIUM 8.2 MG/DL (8.5-10.1); CREATININE 1.19 MG/DL (0.60-1.30)
[2017-11-23] MEDS: ATORVASTATIN 80 MG TAB PO SCH (20:37)
[2017-11-23] MEDS: RESP: ALBUTEROL 2.5 MG/IPRATROPIUM 0.5 MG NEB (PRN) INH (22:11)
[2017-11-23] MEDS: DEXMEDETOMIDINE INJ 1,000 MCG in SODIUM CHLOR 0.9% 250 ML INJ 240 ML IV PRN (23:44)
[2017-11-24] VITALS (15 sets, daily range): BP systolic 104–151; BP diastolic 65–90; PULSE 65–143; RESP 18–37; TEMP 97–99.1; O2SAT 87–100
[2017-11-24] MEDS: CHLORHEXIDINE GLUCONATE 2 % 1 PACK (2 CLOTHS) TOP SCH (04:00)
--- NOTE | 2017-11-24 05:35 | RADRPT ---
EXAM DATE/TIME: 11/24/2017 03:50 [facility] COMPARISON: CHEST SINGLE AP, November 21, 2017, 10:03. INDICATIONS : Shortness of breath. MEDICAL HISTORY : Chronic obstructive pulmonary disease. SURGICAL HISTORY : None. ENCOUNTER: Subsequent ACUITY: 1 week PAIN SCORE: Non-responsive. LOCATION: Bilateral chest FINDINGS: A single view of the chest demonstrates persistent left basilar density. Heart normal size. Endotrach eal tube and nasogastric tube are unchanged in position. Lungs are hyperinflated. Osseous structures are intact. CONCLUSION: Persistent left basilar density. Nikunj Oneil MD on November 24, 2017 at 5:33 Board Certified Radiologist. This report was verified electronically.
[2017-11-24] MEDS: PIPERACIL-TAZO 2.25 GM PREMIX 50 ML IV SCH ×3 (05:45→20:49)
[2017-11-24] MEDS: INSULIN ASPART SUPPLEMENTAL SCALE SQ SCH ×4 (06:48→18:00)
[2017-11-24] MEDS: CHLORHEXIDINE 0.12% (ORAL KIT) 15 ML CUP MT SCH ×2 (08:00→20:49)
[2017-11-24] MEDS: SODIUM CHLORIDE 0.9% FLUSH 10 ML FLUSH IV FLUSH SCH ×2 (09:00→20:46)
[2017-11-24] MEDS: METOPROLOL TARTRATE 50 MG TAB PO SCH ×2 (09:00→20:46)
[2017-11-24] MEDS: FAMOTIDINE 20 MG TAB PO SCH ×2 (09:00→20:45)
[2017-11-24] MEDS: APIXABAN 5 MG TABLET PO SCH ×2 (09:00→20:46)
[2017-11-24] MEDS: methylPREDNISolone SOD SUCC 40 MG/1 ML VIAL IV PUSH SCH (09:00)
[2017-11-24] MEDS: INSULIN DETEMIR 100 UNITS/ML VIAL SQ SCH ×2 (09:00→20:45)
[2017-11-24] MEDS: BUDESONIDE-FORMOTEROL 160/4.5 MCG INHALER INH SCH ×3 (09:00→23:59)
[2017-11-24] MEDS: DILTIAZEM HCL 60 MG TAB PO SCH ×4 (09:00→20:46)
[2017-11-24] MEDS: DOCUSATE SODIUM 50 MG/SENNA 8.6 MG TAB PO SCH ×2 (09:00→20:46)
[2017-11-24 09:03] LABS: AUTOMATED NEUTROPHIL # 8.6 TH/MM3 (1.8-7.7); BASOPHIL % 0.2 % (0.0-2.0); EOSINOPHIL % 0.1 % (0.0-4.0); HEMATOCRIT 33.6 % (39.0-51.0); HEMOGLOBIN 10.7 GM/DL (13.0-17.0); LYMPH % 10.2 % (9.0-44.0); MEAN CELL VOLUME 85.4 FL (80.0-100.0); MEAN CORPUSCULAR HEMOGLOBIN 27.1 PG (27.0-34.0); MEAN CORPUSCULAR HGB CONC 31.7 % (32.0-36.0); MEAN PLATELET VOLUME 9.1 FL (7.0-11.0); MONOCYTE # 0.6 TH/MM3 (0-0.9); NEUT % 83.5 % (16.0-70.0); PLATELET COUNT 168 TH/MM3 (150-450); RED BLOOD COUNT 3.93 MIL/MM3 (4.50-5.90); RED CELL DISTRIBUTION WIDTH 18.3 % (11.6-17.2); WHITE BLOOD COUNT 10.3 TH/MM3 (4.0-11.0)
[2017-11-24 09:23] LABS: BICARBONATE 30.7 MEQ/L (21.0-32.0); CALCIUM 8.2 MG/DL (8.5-10.1); CREATININE 1.43 MG/DL (0.60-1.30)
--- NOTE | 2017-11-24 10:55 | HHI.CCPN ---
Subjective Remarks/Hospital Course This is a 77-year-old male with a medical history significant for COPD, CHF, A. fib, diabetes, that presented to emergency department from [facility] for evaluation of worsening shortness of breath over the last 3 days. The patient was been given Solu-Medrol 125 mg and 2 albuterol treatments enroute to ED. Upon presentation to the ED the patient was on a nonrebreather. He was tachypneic and tachycardic. Patient's medical history significant for MRSA pneumonia previously admitted on 10/27/16 for approximately 12 days at [facility]. The patient is normally on 2.5 L/m nasal cannula O2 home dependency, and he lives with ( normally) a PCO2 in the 80s according to his . Patient was then discharged to [facility], and then transferred to [facility] for rehabilitation. He has been on an unknown antibiotic per the family and steroids for the last 3 days. Laboratory and imaging studies were performed with noted elevation in CO2 The patient was given empiric antibiotics in the ED and placed on BiPAP. Critical care medicine was consulted. Subjective: 11/15: Patient maintained on BiPAP throughout the night O2 saturations 97-98% on FiO2 of 0.40. Hemodynamically stable. Attempts made to wean patient to nasal cannula this a.m. unsuccessful, patient's O2 saturation in the 70s, patient placed back on BiPAP. Chest x-ray pending WBC count significantly diminished, leukocytosis resolved. Patient extremely anxious, Precedex infusion initiated. 11/16: Late entry note. Patient seen 10 AM. Overnight the patient converted to A. fib RVR, despite being on Cardizem 4 times a day and metoprolol twice a day- home medications, the patient received IV Cardizem followed by amiodarone infusion. Per report the patient became hypotensive, Cardizem discontinued. Amiodarone continued. Early this a.m. patient was resting comfortably A. fib rate controlled rate. The patient suddenly converted to A. fib RVR heart rate 150s-160s, acute hypoxemic respiratory failure, requiring intubation. The patient was intubated uneventfully and continues on amiodarone at 0.5 mg/hour, rate now controlled in conjunction with sedation. Cardiology consulted, his delivery recruiter is Dr. Parker X-ray revealed lung consolidation improved, chest x- ray clear. Plan for CPAP trials in a.m.. 11/17: No acute events overnight. Patient had 1 short 8 beat run of V. tach last evening was self resolution, electrolytes within normal limits. The patient continues on amiodarone 0.5 mg/hr. CPAP trials initiated this a.m.. Tube feeds initiated at trickle feeds. Patient converted to sinus rhythm at 2 AM. 11/18 Patient remains sedated and intubated. Afebrile. 11/19 Patient was extubated yesterday however last night he was noted to choke on water provided by the family. Stat ABG demonstrated acute hypercapnic respiratory failure and was emergently intubated. Currently sedated and intubated. 11/20 Patient remains intubated on Fentanyl drip however he si awake and alert. Afebrile. 11/21 Patient is awake and alert placed on CPAP with PS:15, PEEP:5. Afebrile. 11/22 Patient remains intubated , did not tolerate CPAP trials yesterday as he became tachycardic and hypertensive. On no sedation awake and alert. 11/23 No events overnight, off sedation. 11/24: Resting comfortably on mechanical ventilation currently. Daily C Pap trials ongoing. Objective Vital Signs Date Time Temp Pulse Resp B/P (MAP) Pulse Ox O2 Delivery O2 Flow Rate FiO2 11/24/17 10:00 78 11/24/17 08:06 100 30 11/24/17 08:00 98.0 18 151/90 (110) Intake and Output 11/24/17 11/24/17 11/25/17 08:00 16:00 00:00 Intake Total 680 ml Output Total 625 ml Balance 55 ml Result Diagram: 11/24/17 0827 11/24/17 0827 Imaging Last Impressions Chest X-Ray 11/21/17 0000 Signed Impressions: Service Date/Time: Tuesday, November 21, 2017 10:03 - CONCLUSION: Left basilar streakiness consistent with atelectasis and/or infiltrate. Hossein Torres MD Objective Remarks GENERAL: Patient is 77 yo intubated SKIN: Warm and dry. HEAD: Normocephalic. EYES: No scleral icterus. No injection or drainage. NECK: Supple, trachea midline. No JVD or lymphadenopathy. CARDIOVASCULAR: Regular rate and rhythm without murmurs, gallops, or rubs. RESPIRATORY: Breath sounds equal bilaterally. No accessory muscle use. GASTROINTESTINAL: Abdomen soft, non-tender, nondistended. MUSCULOSKELETAL: No cyanosis, or edema. Neuro: Awake, orally intubated, following commands, moving both upper extremities.. A/P Problem List: (1) A-fib ICD Code: I48.91 - Unspecified atrial fibrillation (2) CHF (congestive heart failure) ICD Code: I50.9 - Heart failure, unspecified Status: Chronic (3) HTN (hypertension) ICD Code: I10 - Essential (primary) hypertension Status: Chronic (4) ADRIAN (obstructive sleep apnea) ICD Code: G47.33 - Obstructive sleep apnea (adult) (pediatric) Status: Chronic (5) MRSA pneumonia ICD Code: J15.212 - Pneumonia due to Methicillin resistant Staphylococcus aureus Status: Acute (6) Diabetes mellitus type 2, insulin dependent ICD Code: E11.9 - Type 2 diabetes mellitus without complications; Z79.4 - buttermaker helper (current) use of insulin Status: Chronic (7) COPD (chronic obstructive pulmonary disease) ICD Code: J44.9 - Chronic obstructive pulmonary disease, unspecified Status: Acute (8) Respiratory distress ICD Code: R06.03 - Acute respiratory distress Status: Acute (9) Leukocytosis ICD Code: D72.829 - Elevated white blood cell count, unspecified Status: Acute (10) Lung consolidation ICD Code: J18.1 - Lobar pneumonia, unspecified organism Status: Acute (11) Anxiety ICD Code: F41.9 - Anxiety disorder, unspecified Status: Chronic Assessment and Plan Plan by systems: Neurologic: Anxiety disorder Off sedation monitor neuro status Precedex drip if needed to facility with weaning trials. Hold gabapentin 300mmg q HS home med Respiratory: VDRF- extubated and reintubated night of 11/18 after he was noted to choke on water provided by family. COPD exacerbation Pneumonia-MRSA Obstructive sleep apnea Home O2 dependency Continue with vent support keep sats >92% Bronchodilators, methylprednisolone 40 mg IV daily Pulmonology following- Dr Price, SBT as kirby. Cardiovascular: A. fib RVR History of CHF CAD On Eliquis 5 mg twice a day, atorvastatin 80 daily at bedtime, metoprolol 50 mg twice a day, Cardizem 60 mg 4 times a day . Cards is following- Dr. Parker- Echo showed EF 65-70% Renal: Monitor renal function, electrolytes replacement per protocol. d/c IVF Renal function is improving, follow up on BMP today FEN/GI: Electrolyte derangement GERD Continue tube feeds- On Jevity 1.5, Pepcid for GI prophylaxis Heme/ID: Pneumonia MRSA positive-on 10/27 Leukocytosis ID following- Antibiotics per ID ( Zosyn) monitor for signs of infection ( Fever , WBC) 11/14 Obtain blood , urine - NGTD 11/16 Obtain sputum cultures- Kleb pneumonia Monitor CBC Endocrine: Glucose monitoring per ICU protocol-low dose regimen -- SSI(medium scale) Levemir 14u Q12 Prophylaxis: GI Prophylaxis Famotidine BID DVT Prophylaxis -- SCDs Continue home dose Eliquis 5 mg BID Lines: PIVs 2. Level 3 Problem Qualifiers (1) COPD (chronic obstructive pulmonary disease): Qualified Codes: J44.9 - Chronic obstructive pulmonary disease, unspecified (2) Leukocytosis: Qualified Codes: D72.829 - Elevated white blood cell count, unspecified Lars Flores MD Nov 24, 2017 10:55
[2017-11-24] MEDS: DEXMEDETOMIDINE INJ 1,000 MCG in SODIUM CHLOR 0.9% 250 ML INJ 240 ML IV PRN (11:12)
[2017-11-24] MEDS: ATORVASTATIN 80 MG TAB PO SCH (20:45)
[2017-11-24] MEDS: RESP: ALBUTEROL 2.5 MG/IPRATROPIUM 0.5 MG NEB (PRN) INH (21:13)
[2017-11-25] VITALS (23 sets, daily range): BP systolic 85–160; BP diastolic 48–92; PULSE 69–96; RESP 18; TEMP 97.4–99.8; O2SAT 81–100
[2017-11-25] MEDS: DEXMEDETOMIDINE INJ 1,000 MCG in SODIUM CHLOR 0.9% 250 ML INJ 240 ML IV PRN (03:00)
[2017-11-25] MEDS: CHLORHEXIDINE GLUCONATE 2 % 1 PACK (2 CLOTHS) TOP SCH (04:00)
[2017-11-25] MEDS: PIPERACIL-TAZO 2.25 GM PREMIX 50 ML IV SCH ×3 (04:00→20:47)
[2017-11-25 05:42] LABS: AUTOMATED NEUTROPHIL # 8.6 TH/MM3 (1.8-7.7); BASOPHIL # 0.1 TH/MM3 (0-0.2); BASOPHIL % 0.5 % (0.0-2.0); EOSINOPHIL % 0.2 % (0.0-4.0); HEMOGLOBIN 10.7 GM/DL (13.0-17.0); LYMPH % 10.7 % (9.0-44.0); LYMPHOCYTE # 1.1 TH/MM3 (1.0-4.8); MEAN CELL VOLUME 84.5 FL (80.0-100.0); MEAN CORPUSCULAR HEMOGLOBIN 26.6 PG (27.0-34.0); MEAN CORPUSCULAR HGB CONC 31.5 % (32.0-36.0); MEAN PLATELET VOLUME 9.6 FL (7.0-11.0); MONOCYTE # 0.7 TH/MM3 (0-0.9); NEUT % 81.6 % (16.0-70.0); PLATELET COUNT 204 TH/MM3 (150-450); RED BLOOD COUNT 4.03 MIL/MM3 (4.50-5.90); WHITE BLOOD COUNT 10.5 TH/MM3 (4.0-11.0)
[2017-11-25] MEDS: INSULIN ASPART SUPPLEMENTAL SCALE SQ SCH ×5 (06:00→23:34)
[2017-11-25 06:14] LABS: ALBUMIN 2.5 GM/DL (3.4-5.0); ALKALINE PHOSPHATASE 85 U/L (45-117); ALT (GPT) 29 U/L (12-78); AST (GOT) 15 U/L (15-37); BLOOD UREA NITROGEN 68 MG/DL (7-18); CALCIUM 8.2 MG/DL (8.5-10.1); CHLORIDE 112 MEQ/L (98-107); CREATININE 1.72 MG/DL (0.60-1.30); GLOMERULAR FILTRATION RATE 39 ML/MIN (>89); GLUCOSE,RANDOM 410 MG/DL (74-106); SODIUM (NA) 147 MEQ/L (136-145); TOTAL BILIRUBIN ADULT 0.5 MG/DL (0.2-1.0); TOTAL PROTEIN 5.6 GM/DL (6.4-8.2)
[2017-11-25] MEDS: METOPROLOL TARTRATE 50 MG TAB PO SCH ×2 (09:01→20:49)
[2017-11-25] MEDS: APIXABAN 5 MG TABLET PO SCH ×2 (09:01→20:48)
[2017-11-25] MEDS: SODIUM CHLORIDE 0.9% FLUSH 10 ML FLUSH IV FLUSH SCH ×2 (09:01→20:47)
[2017-11-25] MEDS: DOCUSATE SODIUM 50 MG/SENNA 8.6 MG TAB PO SCH ×2 (09:01→20:49)
[2017-11-25] MEDS: FAMOTIDINE 20 MG TAB PO SCH ×2 (09:01→20:49)
[2017-11-25] MEDS: DILTIAZEM HCL 60 MG TAB PO SCH ×4 (09:01→20:48)
[2017-11-25] MEDS: INSULIN DETEMIR 100 UNITS/ML VIAL SQ SCH ×2 (09:02→20:50)
[2017-11-25] MEDS: CHLORHEXIDINE 0.12% (ORAL KIT) 15 ML CUP MT SCH ×2 (09:02→20:00)
[2017-11-25] MEDS: methylPREDNISolone SOD SUCC 40 MG/1 ML VIAL IV PUSH SCH (09:02)
--- NOTE | 2017-11-25 11:03 | HHI.CCPN ---
Subjective Remarks/Hospital Course This is a 77-year-old male with a medical history significant for COPD, CHF, A. fib, diabetes, that presented to emergency department from [facility] for evaluation of worsening shortness of breath over the last 3 days. The patient was been given Solu-Medrol 125 mg and 2 albuterol treatments enroute to ED. Upon presentation to the ED the patient was on a nonrebreather. He was tachypneic and tachycardic. Patient's medical history significant for MRSA pneumonia previously admitted on 10/27/16 for approximately 12 days at [facility]. The patient is normally on 2.5 L/m nasal cannula O2 home dependency, and he lives with ( normally) a PCO2 in the 80s according to his . Patient was then discharged to [facility], and then transferred to [facility] for rehabilitation. He has been on an unknown antibiotic per the family and steroids for the last 3 days. Laboratory and imaging studies were performed with noted elevation in CO2 The patient was given empiric antibiotics in the ED and placed on BiPAP. Critical care medicine was consulted. Subjective: 11/15: Patient maintained on BiPAP throughout the night O2 saturations 97-98% on FiO2 of 0.40. Hemodynamically stable. Attempts made to wean patient to nasal cannula this a.m. unsuccessful, patient's O2 saturation in the 70s, patient placed back on BiPAP. Chest x-ray pending WBC count significantly diminished, leukocytosis resolved. Patient extremely anxious, Precedex infusion initiated. 11/16: Late entry note. Patient seen 10 AM. Overnight the patient converted to A. fib RVR, despite being on Cardizem 4 times a day and metoprolol twice a day- home medications, the patient received IV Cardizem followed by amiodarone infusion. Per report the patient became hypotensive, Cardizem discontinued. Amiodarone continued. Early this a.m. patient was resting comfortably A. fib rate controlled rate. The patient suddenly converted to A. fib RVR heart rate 150s-160s, acute hypoxemic respiratory failure, requiring intubation. The patient was intubated uneventfully and continues on amiodarone at 0.5 mg/hour, rate now controlled in conjunction with sedation. Cardiology consulted, his credit compliance officer is Dr. Parker X-ray revealed lung consolidation improved, chest x- ray clear. Plan for CPAP trials in a.m.. 11/17: No acute events overnight. Patient had 1 short 8 beat run of V. tach last evening was self resolution, electrolytes within normal limits. The patient continues on amiodarone 0.5 mg/hr. CPAP trials initiated this a.m.. Tube feeds initiated at trickle feeds. Patient converted to sinus rhythm at 2 AM. 11/18 Patient remains sedated and intubated. Afebrile. 11/19 Patient was extubated yesterday however last night he was noted to choke on water provided by the family. Stat ABG demonstrated acute hypercapnic respiratory failure and was emergently intubated. Currently sedated and intubated. 11/20 Patient remains intubated on Fentanyl drip however he si awake and alert. Afebrile. 11/21 Patient is awake and alert placed on CPAP with PS:15, PEEP:5. Afebrile. 11/22 Patient remains intubated , did not tolerate CPAP trials yesterday as he became tachycardic and hypertensive. On no sedation awake and alert. 11/23 No events overnight, off sedation. 11/24: Resting comfortably on mechanical ventilation currently. Daily C Pap trials ongoing. 11/25: Sedated with Precedex, orally intubated on mechanical ventilation. Daily C Pap trials Objective Vital Signs Date Time Temp Pulse Resp B/P (MAP) Pulse Ox O2 Delivery O2 Flow Rate FiO2 11/25/17 10:00 77 11/25/17 09:15 30 11/25/17 08:25 100 11/25/17 08:00 98.3 18 109/69 (82) Intake and Output 11/25/17 11/25/17 11/26/17 08:00 16:00 00:00 Intake Total 669 ml Output Total 750 ml Balance -81 ml Result Diagram: 11/25/17 0457 11/25/17 0457 Imaging Last Impressions Chest X-Ray 11/21/17 0000 Signed Impressions: Service Date/Time: Tuesday, November 21, 2017 10:03 - CONCLUSION: Left basilar streakiness consistent with atelectasis and/or infiltrate. Hossein Torres MD Objective Remarks GENERAL: Patient is 77 yo intubated SKIN: Warm and dry. HEAD: Normocephalic. EYES: No scleral icterus. No injection or drainage. NECK: Supple, trachea midline. No JVD or lymphadenopathy. CARDIOVASCULAR: Regular rate and rhythm without murmurs, gallops, or rubs. RESPIRATORY: Breath sounds equal bilaterally. No accessory muscle use. GASTROINTESTINAL: Abdomen soft, non-tender, nondistended. MUSCULOSKELETAL: No cyanosis, or edema. Neuro: Sedated, arousable, orally intubated, following commands, moving both upper extremities.. A/P Problem List: (1) A-fib ICD Code: I48.91 - Unspecified atrial fibrillation (2) CHF (congestive heart failure) ICD Code: I50.9 - Heart failure, unspecified Status: Chronic (3) HTN (hypertension) ICD Code: I10 - Essential (primary) hypertension Status: Chronic (4) ADRIAN (obstructive sleep apnea) ICD Code: G47.33 - Obstructive sleep apnea (adult) (pediatric) Status: Chronic (5) MRSA pneumonia ICD Code: J15.212 - Pneumonia due to Methicillin resistant Staphylococcus aureus Status: Acute (6) Diabetes mellitus type 2, insulin dependent ICD Code: E11.9 - Type 2 diabetes mellitus without complications; Z79.4 - assisted (current) use of insulin Status: Chronic (7) COPD (chronic obstructive pulmonary disease) ICD Code: J44.9 - Chronic obstructive pulmonary disease, unspecified Status: Acute (8) Respiratory distress ICD Code: R06.03 - Acute respiratory distress Status: Acute (9) Leukocytosis ICD Code: D72.829 - Elevated white blood cell count, unspecified Status: Acute (10) Lung consolidation ICD Code: J18.1 - Lobar pneumonia, unspecified organism Status: Acute (11) Anxiety ICD Code: F41.9 - Anxiety disorder, unspecified Status: Chronic Assessment and Plan Plan by systems: Neurologic: Anxiety disorder Off sedation monitor neuro status Precedex drip if needed to facility with weaning trials. Hold gabapentin 300mmg q HS home med Respiratory: VDRF- extubated and reintubated night of 11/18 after he was noted to choke on water provided by family. COPD exacerbation Pneumonia-MRSA Obstructive sleep apnea Home O2 dependency Continue with vent support keep sats >92% Bronchodilators, methylprednisolone 40 mg IV daily Pulmonology following- Dr Price, SBT as kirby. Cardiovascular: A. fib RVR History of CHF CAD On Eliquis 5 mg twice a day, atorvastatin 80 daily at bedtime, metoprolol 50 mg twice a day, Cardizem 60 mg 4 times a day . Cards is following- Dr. Parker- Echo showed EF 65-70% Renal: Monitor renal function, electrolytes replacement per protocol. d/c IVF Renal function is improving, follow up on BMP today FEN/GI: Electrolyte derangement GERD Continue tube feeds- On Jevity 1.5, Pepcid for GI prophylaxis Heme/ID: Pneumonia MRSA positive-on 10/27 Leukocytosis ID following- Antibiotics per ID ( Zosyn) monitor for signs of infection ( Fever , WBC) 11/14 Obtain blood , urine - NGTD 11/16 Obtain sputum cultures- Kleb pneumonia Monitor CBC Endocrine: Glucose monitoring per ICU protocol-low dose regimen -- SSI(medium scale) Levemir 14u Q12 Prophylaxis: GI Prophylaxis Famotidine BID DVT Prophylaxis -- SCDs Continue home dose Eliquis 5 mg BID Lines: PIVs 2. Level 3 Problem Qualifiers (1) COPD (chronic obstructive pulmonary disease): Qualified Codes: J44.9 - Chronic obstructive pulmonary disease, unspecified (2) Leukocytosis: Qualified Codes: D72.829 - Elevated white blood cell count, unspecified Lars Flores MD Nov 25, 2017 11:03
[2017-11-25] MEDS ORDERED: SODIUM CHLORID 0.9% 500 ML INJ 500 ML IV ONE (12:45)
[2017-11-25] MEDS: BUDESONIDE-FORMOTEROL 160/4.5 MCG INHALER INH SCH (19:52)
[2017-11-25] MEDS: RESP: ALBUTEROL 2.5 MG/IPRATROPIUM 0.5 MG NEB (PRN) INH (19:53)
[2017-11-25] MEDS: ATORVASTATIN 80 MG TAB PO SCH (20:49)
[2017-11-26] VITALS (42 sets, daily range): BP systolic 98–181; BP diastolic 59–102; PULSE 72–148; RESP 18–43; TEMP 98.9–101.9; O2SAT 80–99
[2017-11-26] MEDS: RESP: ALBUTEROL 2.5 MG/IPRATROPIUM 0.5 MG NEB (PRN) INH (03:13)
[2017-11-26] MEDS: CHLORHEXIDINE GLUCONATE 2 % 1 PACK (2 CLOTHS) TOP SCH (04:00)
[2017-11-26] MEDS: PIPERACIL-TAZO 2.25 GM PREMIX 50 ML IV SCH ×3 (04:07→19:35)
[2017-11-26] MEDS: INSULIN ASPART SUPPLEMENTAL SCALE SQ SCH ×5 (06:00→23:57)
[2017-11-26] MEDS: CHLORHEXIDINE 0.12% (ORAL KIT) 15 ML CUP MT SCH ×2 (08:00→19:35)
[2017-11-26] MEDS: FAMOTIDINE 20 MG TAB PO SCH ×2 (09:00→20:29)
[2017-11-26] MEDS: SODIUM CHLORIDE 0.9% FLUSH 10 ML FLUSH IV FLUSH SCH ×2 (09:00→19:35)
[2017-11-26] MEDS: BUDESONIDE-FORMOTEROL 160/4.5 MCG INHALER INH SCH ×2 (09:00→19:35)
[2017-11-26] MEDS: methylPREDNISolone SOD SUCC 40 MG/1 ML VIAL IV PUSH SCH (09:00)
[2017-11-26] MEDS: INSULIN DETEMIR 100 UNITS/ML VIAL SQ SCH ×2 (09:00→20:30)
[2017-11-26] MEDS: DOCUSATE SODIUM 50 MG/SENNA 8.6 MG TAB PO SCH ×2 (09:00→20:29)
[2017-11-26] MEDS: METOPROLOL TARTRATE 50 MG TAB PO SCH ×2 (09:00→20:29)
[2017-11-26] MEDS: DILTIAZEM HCL 60 MG TAB PO SCH ×4 (09:00→20:24)
[2017-11-26] MEDS: APIXABAN 5 MG TABLET PO SCH ×2 (09:00→20:24)
--- NOTE | 2017-11-26 10:50 | HHI.IDPN ---
Note Infectious Disease Note ID [id number] for 77-year-old, white male who presents to the Emergency Department with shortness of breath. The patient has a history of COPD and CHF. He usually uses CPAP at the assisted living facility. He was noted to have been developing coughing and shortness of breath over the past couple of days, and his states that he was coughing a lot yesterday and bringing up mostly phlegm and that he was restless and could not sleep. Recently treated at [facility] for pneumonia due to methicillin-resistant Staphylococcus aureus. His states that he was still on the oral antibiotic for pneumonia and that he has 2 more days of the medication to complete therapy with Zyvox. Patient was extubated yesterday and had to be reintubated. He is noted to have aspirated while being given water to drink. He is now on CPAP. Sedated. [place]. Afebrile. PAST MEDICAL HISTORY: COPD, CHF, atrial fibrillation, insulin-dependent diabetes mellitus, hypertension, hyperlipidemia, gastroesophageal reflux, gastroparesis, iron deficiency anemia, oxygen-dependent. PAST SURGICAL HISTORY: Right knee surgery, right carpal tunnel release, cardiac ablation treatment 2002. ALLERGIES: ASPIRIN, CODEINE. Current Medications Medications (Trade) Dose Ordered Sig/Yani Route Start Time Stop Time Status Last Admin (NS Flush) 2 ml UNSCH PRN IV FLUSH 11/14/17 15:45 11/17/17 14:05 (NS Flush) 2 ml BID IV FLUSH 11/14/17 21:00 11/26/17 09:00 (Tylenol) 650 mg Q6H PRN PO 11/14/17 15:45 11/15/17 20:11 (Zofran Inj) 4 mg Q6H PRN IV PUSH 11/14/17 15:45 11/18/17 16:03 Miscellaneous Information 1 Q361D XX 11/14/17 15:45 11/14/17 15:45 (Chlorhexidine 2% Cloth) Taper DAILY@04 TOP 11/15/17 04:00 11/11/18 03:59 11/20/17 04:00 (Chlorhexidine 2% Cloth) 3 pack UNSCH PRN TOP 11/14/17 15:45 (Ricarda-Colace) 1 tab BID PO 11/14/17 21:00 11/26/17 09:00 (Milk Of Magnesia Liq) 30 ml Q12H PRN PO 11/14/17 15:45 (Senokot) 17.2 mg Q12H PRN PO 11/14/17 15:45 (Dulcolax Supp) 10 mg DAILY PRN RECTAL 11/14/17 15:45 (Lactulose Liq) 30 ml DAILY PRN PO 11/14/17 15:45 Potassium Chloride 100 ml @ 50 mls/hr Q2H PRN IV 11/14/17 15:45 Potassium Chloride 100 ml @ 50 mls/hr Q2H PRN IV 11/14/17 15:45 (K-Lyte Cl Eff) 50 meq UNSCH PRN PO 11/14/17 15:45 Potassium Chloride 100 ml @ 25 mls/hr UNSCH PRN IV 11/14/17 15:45 Potassium Chloride 100 ml @ 50 mls/hr Q2H PRN IV 11/14/17 15:45 Magnesium Sulfate 4 gm/Sodium Chloride 100 ml @ 50 mls/hr UNSCH PRN IV 11/14/17 15:45 (Mag-Ox) 800 mg UNSCH PRN PO 11/14/17 15:45 Magnesium Sulfate 2 gm/Sodium Chloride 100 ml @ 50 mls/hr UNSCH PRN IV 11/14/17 15:45 (K-Phos) 2,000 mg Q4H PRN PO 11/14/17 15:45 Sodium Phosphate 30 mmol/Sodium Chloride 250 ml @ 42 mls/hr UNSCH PRN IV 11/14/17 15:45 (K-Phos) 2,000 mg UNSCH PRN PO/TUBE 11/14/17 15:45 Potassium Phosphate 30 mmol/ Sodium Chloride 260 ml @ 42 mls/hr UNSCH PRN IV 11/14/17 15:45 (Eliquis) 5 mg BID PO 11/14/17 21:00 11/26/17 09:00 (Lipitor) 80 mg HS PO 11/14/17 21:00 11/25/17 20:49 (Lanoxin) 0.125 mg DAILY PO 11/15/17 09:00 Future Hold 11/17/17 08:24 (Cardizem) 60 mg QID PO 11/14/17 18:00 11/26/17 09:00 (Lopressor) 50 mg BID PO 11/14/17 21:00 11/26/17 09:00 Patient Own Medication PT OWN MED: Mometas... HS INH 11/14/17 21:00 Future Hold (Lopressor Inj) 2.5 mg Q6H PRN IV PUSH 11/15/17 09:15 11/20/17 10:33 (D50w (Vial) Inj) 50 ml UNSCH PRN IV PUSH 11/16/17 18:00 (Glucagon Inj) 1 mg UNSCH PRN OTHER 11/16/17 18:00 (Apresoline Inj) 20 mg Q4H PRN IV PUSH 11/17/17 12:00 11/22/17 07:38 (NovoLOG SUPPLEMENTAL SCALE) 1 Q6H SQ 11/18/17 18:00 11/26/17 06:00 (SoluMEDROL INJ) 40 mg DAILY IV PUSH 11/19/17 09:00 11/26/17 09:00 (Symbicort 160-4.5 Mcg Inh) 2 puff Q12HR INH 11/18/17 21:00 11/25/17 19:52 Fentanyl Citrate 250 ml @ 5 mls/hr TITRATE PRN IV 11/18/17 22:15 11/19/17 15:38 (Peridex 0.12% Liq) 15 ml BID@08,20 MT 11/19/17 08:00 11/26/17 08:00 (Duoneb Neb) 1 ampule Q2HR NEB PRN INH 11/18/17 22:30 11/26/17 03:13 Piperacillin Sod/ Tazobactam Sod 50 ml @ 100 mls/hr Q8H IV 11/19/17 20:00 11/26/17 04:07 (Levemir Inj) 14 units Q12HR SQ 11/22/17 21:00 11/26/17 09:00 (Pepcid) 10 mg BID PO 11/22/17 21:00 11/26/17 09:00 Dexmedetomidine HCl 1000 mcg/ Sodium Chloride 250 ml @ 5.05 mls/hr TITRATE PRN IV 11/23/17 22:45 11/25/17 03:00 OBJECTIVE: Vital Signs Vital Signs Date Time Temp Pulse Resp B/P (MAP) Pulse Ox O2 Delivery O2 Flow Rate FiO2 11/26/17 09:39 96 40 11/26/17 09:39 40 3/30/18 06:00 83 11/26/17 04:00 99.0 80 18 136/72 (93) 96 11/26/17 04:00 30 11/26/17 04:00 80 11/26/17 03:13 98 40 11/26/17 02:00 80 11/26/17 00:00 72 11/26/17 00:00 99.2 72 18 122/74 (90) 96 11/26/17 00:00 30 11/25/17 23:38 97 40 11/25/17 22:00 69 11/25/17 20:00 99.8 96 18 160/92 (114) 95 11/25/17 20:00 96 11/25/17 20:00 30 11/25/17 19:41 99 40 11/25/17 18:00 86 11/25/17 17:00 78 11/25/17 16:00 30 11/25/17 16:00 78 11/25/17 16:00 98.5 78 18 126/80 (95) 99 11/25/17 15:45 100 40 11/25/17 15:00 75 11/25/17 14:00 71 11/25/17 13:00 72 11/25/17 12:00 98.5 72 18 85/48 (60) 81 11/25/17 12:00 30 11/25/17 12:00 72 11/25/17 11:51 97 40 11/25/17 11:15 30 11/25/17 11:00 75 Laboratory Tests Laboratory Tests Test 11/23/17 10:55 11/24/17 08:27 11/25/17 04:57 White Blood Count 11.3 TH/MM3 10.3 TH/MM3 10.5 TH/MM3 Red Blood Count 3.47 MIL/MM3 3.93 MIL/MM3 4.03 MIL/MM3 Hemoglobin 9.3 GM/DL 10.7 GM/DL 10.7 GM/DL Hematocrit 29.5 % 33.6 % 34.0 % Mean Corpuscular Volume 85.3 FL 85.4 FL 84.5 FL Mean Corpuscular Hemoglobin 26.8 PG 27.1 PG 26.6 PG Mean Corpuscular Hemoglobin Concent 31.4 % 31.7 % 31.5 % Red Cell Distribution Width 17.9 % 18.3 % 18.0 % Platelet Count 166 TH/MM3 168 TH/MM3 204 TH/MM3 Mean Platelet Volume 8.8 FL 9.1 FL 9.6 FL Neutrophils (%) (Auto) 87.8 % 83.5 % 81.6 % Lymphocytes (%) (Auto) 6.2 % 10.2 % 10.7 % Monocytes (%) (Auto) 5.7 % 6.0 % 7.0 % Eosinophils (%) (Auto) 0.1 % 0.1 % 0.2 % Basophils (%) (Auto) 0.2 % 0.2 % 0.5 % Neutrophils # (Auto) 9.9 TH/MM3 8.6 TH/MM3 8.6 TH/MM3 Lymphocytes # (Auto) 0.7 TH/MM3 1.0 TH/MM3 1.1 TH/MM3 Monocytes # (Auto) 0.6 TH/MM3 0.6 TH/MM3 0.7 TH/MM3 Eosinophils # (Auto) 0.0 TH/MM3 0.0 TH/MM3 0.0 TH/MM3 Basophils # (Auto) 0.0 TH/MM3 0.0 TH/MM3 0.1 TH/MM3 CBC Comment DIFF FINAL DIFF FINAL DIFF FINAL Differential Comment Blood Urea Nitrogen 48 MG/DL 62 MG/DL 68 MG/DL Creatinine 1.19 MG/DL 1.43 MG/DL 1.72 MG/DL Random Glucose 264 MG/DL 389 MG/DL 410 MG/DL Calcium Level 8.2 MG/DL 8.2 MG/DL 8.2 MG/DL Sodium Level 148 MEQ/L 147 MEQ/L 147 MEQ/L Potassium Level 4.0 MEQ/L 4.5 MEQ/L 4.6 MEQ/L Chloride Level 112 MEQ/L 112 MEQ/L 112 MEQ/L Carbon Dioxide Level 29.9 MEQ/L 30.7 MEQ/L 28.0 MEQ/L Anion Gap 6 MEQ/L 4 MEQ/L 7 MEQ/L Estimat Glomerular Filtration Rate 59 ML/MIN 48 ML/MIN 39 ML/MIN Total Protein 5.6 GM/DL Albumin 2.5 GM/DL Alkaline Phosphatase 85 U/L Aspartate Amino Transf (AST/SGOT) 15 U/L Alanine Aminotransferase (ALT/SGPT) 29 U/L Total Bilirubin 0.5 MG/DL Test 11/21/17 15:27 11/22/17 05:15 11/23/17 10:55 White Blood Count 10.5 TH/MM3 8.8 TH/MM3 11.3 TH/MM3 Red Blood Count 3.82 MIL/MM3 3.68 MIL/MM3 3.47 MIL/MM3 Hemoglobin 10.3 GM/DL 9.9 GM/DL 9.3 GM/DL Hematocrit 32.1 % 31.1 % 29.5 % Mean Corpuscular Volume 84.0 FL 84.4 FL 85.3 FL Mean Corpuscular Hemoglobin 26.9 PG 26.8 PG 26.8 PG Mean Corpuscular Hemoglobin Concent 32.0 % 31.8 % 31.4 % Red Cell Distribution Width 17.1 % 17.4 % 17.9 % Platelet Count 134 TH/MM3 142 TH/MM3 166 TH/MM3 Mean Platelet Volume 8.3 FL 8.7 FL 8.8 FL Neutrophils (%) (Auto) 91.5 % 84.2 % 87.8 % Lymphocytes (%) (Auto) 6.3 % 10.0 % 6.2 % Monocytes (%) (Auto) 2.1 % 5.6 % 5.7 % Eosinophils (%) (Auto) 0.0 % 0.0 % 0.1 % Basophils (%) (Auto) 0.1 % 0.2 % 0.2 % Neutrophils # (Auto) 9.6 TH/MM3 7.4 TH/MM3 9.9 TH/MM3 Lymphocytes # (Auto) 0.7 TH/MM3 0.9 TH/MM3 0.7 TH/MM3 Monocytes # (Auto) 0.2 TH/MM3 0.5 TH/MM3 0.6 TH/MM3 Eosinophils # (Auto) 0.0 TH/MM3 0.0 TH/MM3 0.0 TH/MM3 Basophils # (Auto) 0.0 TH/MM3 0.0 TH/MM3 0.0 TH/MM3 CBC Comment DIFF FINAL DIFF FINAL DIFF FINAL Differential Comment Microbiology Date/Time Source Procedure Growth Status 11/14/17 13:45 Blood Peripheral Aerobic Blood Culture - Final NO GROWTH IN 5 DAYS Complete 11/14/17 13:45 Blood Peripheral Anaerobic Blood Culture - Final NO GROWTH IN 5 DAYS Complete 11/15/17 16:50 Sputum Expectorated Sputum Gram Stain - Final Complete 11/15/17 16:50 Sputum Culture - Final Klebsiella Pneumoniae Complete 11/16/17 11:30 Urine Catheterized Urine Urine Culture - Final NO GROWTH IN 48 HOURS. Complete Date/Time Source Procedure Growth Status 11/14/17 13:45 Blood Peripheral Aerobic Blood Culture - Final NO GROWTH IN 5 DAYS Complete 11/14/17 13:45 Blood Peripheral Anaerobic Blood Culture - Final NO GROWTH IN 5 DAYS Complete 11/15/17 16:50 Sputum Expectorated Sputum Gram Stain - Final Complete 11/15/17 16:50 Sputum Culture - Final Klebsiella Pneumoniae Complete 11/16/17 11:30 Urine Catheterized Urine Urine Culture - Final NO GROWTH IN 48 HOURS. Complete IMAGING: Last Impressions Chest X-Ray 11/21/17 0000 Signed Impressions: Service Date/Time: Tuesday, November 21, 2017 10:03 - CONCLUSION: Left basilar streakiness consistent with atelectasis and/or infiltrate. Hossein Torres MD PHYSICAL EXAMINATION: GENERAL: Sedated. HEENT: Unable to assess adequately since patient is on the ventilator. NECK: No swelling or adenopathy. LUNGS: Bilateral rhonchi. HEART: Regular without audible murmurs. ABDOMEN: Bowel sounds present, but diminished; obese, soft. No tenderness EXTREMITIES: 1+ edema of the lower extremities, bilateral. No clubbing or cyanosis. SKIN: No diffuse rash. NEUROLOGIC: Nonfocal. PSYCHIATRIC: Calm and cooperative. IMPRESSION: 1. Probable sepsis. 2. Pneumonia gram-negative. Klebsiella 3. Acute respiratory failure. Extubated and appears to have aspirated. 4. Leukocytosis: infection, steroids. 4. History of chronic obstructive pulmonary disease and recent chronic obstructive pulmonary disease exacerbation. He is also receiving Solu-Medrol which can increase the white cell count. RECOMMENDATIONS: 1. Continue Zosyn IV( stop date in EMR). If extubated ok to transition to oral augmentin once swallow eval passed. 2. Monitor white blood cell count 3. monitor clinical status. Discussed with at bedside. dw RN Will sign off please call back if any change in clinical condition or questions. Pam Flores MD Nov 26, 2017 10:50
[2017-11-26 12:46] LABS: HEMATOCRIT 38.2 % (39.0-51.0); HEMOGLOBIN 11.6 GM/DL (13.0-17.0); MEAN CELL VOLUME 86.1 FL (80.0-100.0); MEAN CORPUSCULAR HEMOGLOBIN 26.2 PG (27.0-34.0); MEAN CORPUSCULAR HGB CONC 30.5 % (32.0-36.0); MEAN PLATELET VOLUME 9.8 FL (7.0-11.0); PLATELET COUNT 347 TH/MM3 (150-450); RED BLOOD COUNT 4.43 MIL/MM3 (4.50-5.90); RED CELL DISTRIBUTION WIDTH 18.8 % (11.6-17.2); WHITE BLOOD COUNT 20.9 TH/MM3 (4.0-11.0)
[2017-11-26] MEDS: ACETAMINOPHEN 325 MG TAB PO PRN (13:16)
[2017-11-26 13:17] LABS: ALBUMIN 2.6 GM/DL (3.4-5.0); AST (GOT) 21 U/L (15-37); BICARBONATE 30.3 MEQ/L (21.0-32.0); BLOOD UREA NITROGEN 76 MG/DL (7-18); CALCIUM 8.1 MG/DL (8.5-10.1); CHLORIDE 110 MEQ/L (98-107); CREATININE 1.66 MG/DL (0.60-1.30); GLOMERULAR FILTRATION RATE 40 ML/MIN (>89); SODIUM (NA) 149 MEQ/L (136-145)
[2017-11-26 13:18] LABS: GLUCOSE,RANDOM 363 MG/DL (74-106)
[2017-11-26 13:23] LABS: ALKALINE PHOSPHATASE 142 U/L (45-117); ALT (GPT) 43 U/L (12-78); PHOSPHORUS 3.5 MG/DL (2.5-4.9); TOTAL BILIRUBIN ADULT 0.4 MG/DL (0.2-1.0)
[2017-11-26] MEDS ORDERED: GLUCAGON 1 MG/ML VIAL IM/SQ PRN (15:30)
[2017-11-26] MEDS ORDERED: AMIODARONE INJ 150 MG in DEXTROSE 5% IN WATER 100ML INJ 100 ML IV ONE ×2 (17:10)
[2017-11-26] MEDS ORDERED: METOPROLOL TARTRATE 5 MG/5 ML VIAL IV PUSH PRN (17:15)
[2017-11-26] MEDS ORDERED: AMIODARONE INJ 450 MG in SODIUM CHLOR 0.9% (EXCEL) INJ 241 ML IV PRN (17:20)
[2017-11-26] MEDS: METOPROLOL TARTRATE 5 MG/5 ML VIAL IV PUSH PRN (17:24)
--- NOTE | 2017-11-26 17:26 | HHI.CCPN ---
Subjective Remarks/Hospital Course This is a 77-year-old male with a medical history significant for COPD, CHF, A. fib, diabetes, that presented to emergency department from [facility] for evaluation of worsening shortness of breath over the last 3 days. The patient was been given Solu-Medrol 125 mg and 2 albuterol treatments enroute to ED. Upon presentation to the ED the patient was on a nonrebreather. He was tachypneic and tachycardic. Patient's medical history significant for MRSA pneumonia previously admitted on 10/27/16 for approximately 12 days at [facility]. The patient is normally on 2.5 L/m nasal cannula O2 home dependency, and he lives with ( normally) a PCO2 in the 80s according to his . Patient was then discharged to [facility], and then transferred to [facility] for rehabilitation. He has been on an unknown antibiotic per the family and steroids for the last 3 days. Laboratory and imaging studies were performed with noted elevation in CO2 The patient was given empiric antibiotics in the ED and placed on BiPAP. Critical care medicine was consulted. Subjective: 11/15: Patient maintained on BiPAP throughout the night O2 saturations 97-98% on FiO2 of 0.40. Hemodynamically stable. Attempts made to wean patient to nasal cannula this a.m. unsuccessful, patient's O2 saturation in the 70s, patient placed back on BiPAP. Chest x-ray pending WBC count significantly diminished, leukocytosis resolved. Patient extremely anxious, Precedex infusion initiated. 11/16: Late entry note. Patient seen 10 AM. Overnight the patient converted to A. fib RVR, despite being on Cardizem 4 times a day and metoprolol twice a day- home medications, the patient received IV Cardizem followed by amiodarone infusion. Per report the patient became hypotensive, Cardizem discontinued. Amiodarone continued. Early this a.m. patient was resting comfortably A. fib rate controlled rate. The patient suddenly converted to A. fib RVR heart rate 150s-160s, acute hypoxemic respiratory failure, requiring intubation. The patient was intubated uneventfully and continues on amiodarone at 0.5 mg/hour, rate now controlled in conjunction with sedation. Cardiology consulted, his utility specialist is Dr. Parker X-ray revealed lung consolidation improved, chest x- ray clear. Plan for CPAP trials in a.m.. 11/17: No acute events overnight. Patient had 1 short 8 beat run of V. tach last evening was self resolution, electrolytes within normal limits. The patient continues on amiodarone 0.5 mg/hr. CPAP trials initiated this a.m.. Tube feeds initiated at trickle feeds. Patient converted to sinus rhythm at 2 AM. 11/18 Patient remains sedated and intubated. Afebrile. 11/19 Patient was extubated yesterday however last night he was noted to choke on water provided by the family. Stat ABG demonstrated acute hypercapnic respiratory failure and was emergently intubated. Currently sedated and intubated. 11/20 Patient remains intubated on Fentanyl drip however he si awake and alert. Afebrile. 11/21 Patient is awake and alert placed on CPAP with PS:15, PEEP:5. Afebrile. 11/22 Patient remains intubated , did not tolerate CPAP trials yesterday as he became tachycardic and hypertensive. On no sedation awake and alert. 11/23 No events overnight, off sedation. 11/24: Resting comfortably on mechanical ventilation currently. Daily C Pap trials ongoing. 11/25: Sedated with Precedex, orally intubated on mechanical ventilation. Daily C Pap trials 11/26: Sedated with Precedex, orally intubated on mechanical ventilation. Got tachypneic with CPAP trial today hence placed back on PRVC. Spiked a fever, garcia cultures ordered. Went into A. fib with RVR subsequently for which being initiated on amiodarone bolus followed by drip and Lopressor 5 mg IV every 6 as needed for Objective Vital Signs Date Time Temp Pulse Resp B/P (MAP) Pulse Ox O2 Delivery O2 Flow Rate FiO2 11/26/17 16:00 99.7 11/26/17 15:26 99 30 11/26/17 06:00 83 11/26/17 04:00 18 136/72 (93) Intake and Output 11/26/17 11/26/17 11/27/17 08:00 16:00 00:00 Intake Total 805 ml Output Total 400 ml Balance 405 ml Result Diagram: 11/26/17 1049 11/26/17 1049 Imaging Last Impressions Chest X-Ray 11/21/17 0000 Signed Impressions: Service Date/Time: Tuesday, November 21, 2017 10:03 - CONCLUSION: Left basilar streakiness consistent with atelectasis and/or infiltrate. Hossein Torres MD Objective Remarks GENERAL: Patient is 77 yo intubated SKIN: Warm and dry. HEAD: Normocephalic. EYES: No scleral icterus. No injection or drainage. NECK: Supple, trachea midline. No JVD or lymphadenopathy. CARDIOVASCULAR: S1-S2 irregularly irregular, no gallop or murmur. RESPIRATORY: Breath sounds equal bilaterally. No accessory muscle use. GASTROINTESTINAL: Abdomen soft, non-tender, nondistended. MUSCULOSKELETAL: No cyanosis, or edema. Neuro: Sedated, arousable, orally intubated, following commands, moving both upper extremities.. A/P Problem List: (1) A-fib ICD Code: I48.91 - Unspecified atrial fibrillation (2) CHF (congestive heart failure) ICD Code: I50.9 - Heart failure, unspecified Status: Chronic (3) HTN (hypertension) ICD Code: I10 - Essential (primary) hypertension Status: Chronic (4) ADRIAN (obstructive sleep apnea) ICD Code: G47.33 - Obstructive sleep apnea (adult) (pediatric) Status: Chronic (5) MRSA pneumonia ICD Code: J15.212 - Pneumonia due to Methicillin resistant Staphylococcus aureus Status: Acute (6) Diabetes mellitus type 2, insulin dependent ICD Code: E11.9 - Type 2 diabetes mellitus without complications; 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 Status: Chronic (7) COPD (chronic obstructive pulmonary disease) ICD Code: J44.9 - Chronic obstructive pulmonary disease, unspecified Status: Acute (8) Respiratory distress ICD Code: R06.03 - Acute respiratory distress Status: Acute (9) Leukocytosis ICD Code: D72.829 - Elevated white blood cell count, unspecified Status: Acute (10) Lung consolidation ICD Code: J18.1 - Lobar pneumonia, unspecified organism Status: Acute (11) Anxiety ICD Code: F41.9 - Anxiety disorder, unspecified Status: Chronic Assessment and Plan Plan by systems: Neurologic: Anxiety disorder Precedex drip to facilitate with weaning trials. Hold gabapentin 300mmg q HS home med Respiratory: VDRF- extubated and reintubated night of 11/18 after he was noted to choke on water provided by family. COPD exacerbation Pneumonia-MRSA Obstructive sleep apnea Home O2 dependency Continue with vent support keep sats >92% Bronchodilators, methylprednisolone 40 mg IV daily Pulmonology following- Dr Price, SBT as kirby. Cardiovascular: A. fib RVR History of CHF CAD On Eliquis 5 mg twice a day, atorvastatin 80 daily at bedtime, metoprolol 50 mg twice a day, Cardizem 60 mg 4 times a day . Amiodarone 150 mg bolus followed by GTT ordered on 11/26. Lopressor 5 mg IV every 6 hourly as needed for heart rate greater than 130 Cards is following- Dr. Parker- Echo showed EF 65-70% Renal: Monitor renal function, electrolytes replacement per protocol. d/c IVF Renal function is improving, follow up on BMP today FEN/GI: Electrolyte derangement GERD Continue tube feeds- On Jevity 1.5, Pepcid for GI prophylaxis Heme/ID: Pneumonia MRSA positive-on 10/27 Leukocytosis ID following- Antibiotics per ID ( Zosyn) monitor for signs of infection ( Fever , WBC) 11/14 Obtain blood , urine - NGTD 11/16 Obtain sputum cultures- Kleb pneumonia Monitor CBC Plan cultures repeated on 11/26, results pending. Endocrine: Glucose monitoring per ICU protocol-low dose regimen -- SSI(medium scale) Levemir 14u Q12 Prophylaxis: GI Prophylaxis Famotidine BID DVT Prophylaxis -- SCDs Continue home dose Eliquis 5 mg BID Lines: PIVs 2. Level 3 Problem Qualifiers (1) COPD (chronic obstructive pulmonary disease): Qualified Codes: J44.9 - Chronic obstructive pulmonary disease, unspecified (2) Leukocytosis: Qualified Codes: D72.829 - Elevated white blood cell count, unspecified Lars Flores MD Nov 26, 2017 17:26
[2017-11-26] MEDS ORDERED: CALCIUM GLUCONATE INJ 2 GM in DEXTROSE 5% IN WATER 100ML INJ 100 ML IV ONE ×2 (18:00)
[2017-11-26] MEDS ORDERED: Vancomycin Consult Pharmacy 1 EA OTHER SCH (18:45)
[2017-11-26] MEDS ORDERED: VANCOMYCIN INJ 2,000 MG in SODIUM CHLORID 0.9% 500 ML INJ 500 ML IV ONE (20:00)
[2017-11-26] MEDS: ATORVASTATIN 80 MG TAB PO SCH (20:24)
[2017-11-26] MEDS: DEXMEDETOMIDINE INJ 1,000 MCG in SODIUM CHLOR 0.9% 250 ML INJ 240 ML IV PRN (20:30)
[2017-11-27] VITALS (57 sets, daily range): BP systolic 87–165; BP diastolic 56–97; PULSE 56–130; RESP 0–49; TEMP 97.6–100.5; O2SAT 91–100
[2017-11-27] MEDS: METOPROLOL TARTRATE 5 MG/5 ML VIAL IV PUSH PRN (03:52)
[2017-11-27] MEDS: CHLORHEXIDINE GLUCONATE 2 % 1 PACK (2 CLOTHS) TOP SCH (04:00)
[2017-11-27] MEDS: INSULIN ASPART SUPPLEMENTAL SCALE SQ SCH ×5 (04:00→20:00)
[2017-11-27] MEDS: PIPERACIL-TAZO 2.25 GM PREMIX 50 ML IV SCH ×2 (04:25→12:00)
[2017-11-27] MEDS ORDERED: EPINEPHrine HCL (1:10,000) 1 MG/10 ML SYRINGE IV ONE (05:00)
--- NOTE | 2017-11-27 06:01 | RADRPT ---
EXAM DATE/TIME: 11/27/2017 04:44 [facility] COMPARISON: CHEST SINGLE AP, November 24, 2017, 3:50. INDICATIONS : Shortness of breath, possible pneumothorax. MEDICAL HISTORY : Chronic obstructive pulmonary disease. SURGICAL HISTORY : None. ENCOUNTER: Subsequent ACUITY: 1 week PAIN SCORE: Non-responsive. LOCATION: Bilateral chest FINDINGS: A single view of the chest demonstrates the endotracheal tube, nasogastric tube are both in good posi tion. There is an infiltrate in the left lung base. There is no visible pneumothorax. Osseous struct ures are intact. CONCLUSION: Consolidation left lung base is stable. No pneumothorax. Tubes and catheters in good position. Santy Roblero MD on November 27, 2017 at 5:59 Board Certified Radiologist. This report was verified electronically.
[2017-11-27] MEDS ORDERED: DIGOXIN 0.5 MG/2 ML VIAL IV PUSH ONE (06:30)
[2017-11-27] MEDS: DILTIAZEM HCL 60 MG TAB PO SCH ×4 (08:53→20:17)
[2017-11-27] MEDS: METOPROLOL TARTRATE 50 MG TAB PO SCH ×2 (08:53→20:18)
[2017-11-27] MEDS: INSULIN DETEMIR 100 UNITS/ML VIAL SQ SCH ×2 (08:53→20:18)
[2017-11-27] MEDS: FAMOTIDINE 20 MG TAB PO SCH ×2 (08:53→20:17)
[2017-11-27] MEDS: DOCUSATE SODIUM 50 MG/SENNA 8.6 MG TAB PO SCH ×2 (08:53→20:17)
[2017-11-27] MEDS: APIXABAN 5 MG TABLET PO SCH ×2 (08:53→20:17)
[2017-11-27] MEDS: methylPREDNISolone SOD SUCC 40 MG/1 ML VIAL IV PUSH SCH (08:54)
[2017-11-27] MEDS: BUDESONIDE-FORMOTEROL 160/4.5 MCG INHALER INH SCH ×2 (08:54→20:16)
[2017-11-27] MEDS: SODIUM CHLORIDE 0.9% FLUSH 10 ML FLUSH IV FLUSH SCH ×2 (08:54→20:16)
--- NOTE | 2017-11-27 09:27 | HHI.IDPN ---
Note Infectious Disease Note ID [id number] for 77-year-old, white male who presents to the Emergency Department with shortness of breath. The patient has a history of COPD and CHF. He usually uses CPAP at the assisted living facility. He was noted to have been developing coughing and shortness of breath over the past couple of days, and his states that he was coughing a lot yesterday and bringing up mostly phlegm and that he was restless and could not sleep. Recently treated at [facility] for pneumonia due to methicillin-resistant Staphylococcus aureus. His states that he was still on the oral antibiotic for pneumonia and that he has 2 more days of the medication to complete therapy with Zyvox. Notes reviewed D/W RN Had fever yesterday up to 101+, low-grade since No cultures done yesterday WBC up to 20 yesterday Chest x-ray no change in the left base consolidation Did CPAP trials yesterday Currently on the vent, denies short of breath, looks tachypneic Had A. fib, RVR yesterday, on amiodarone drip Monitor still shows A. fib, rate lower To finish Zosyn today No central line Has a Haynes PAST MEDICAL HISTORY: COPD, CHF, atrial fibrillation, insulin-dependent diabetes mellitus, hypertension, hyperlipidemia, gastroesophageal reflux, gastroparesis, iron deficiency anemia, oxygen-dependent. PAST SURGICAL HISTORY: Right knee surgery, right carpal tunnel release, cardiac ablation treatment 2002. ALLERGIES: ASPIRIN, CODEINE. Current Medications Medications (Trade) Dose Ordered Sig/Yani Route Start Time Stop Time Status Last Admin (NS Flush) 2 ml UNSCH PRN IV FLUSH 11/14/17 15:45 11/17/17 14:05 (NS Flush) 2 ml BID IV FLUSH 11/14/17 21:00 11/27/17 08:54 (Tylenol) 650 mg Q6H PRN PO 11/14/17 15:45 11/26/17 13:16 (Zofran Inj) 4 mg Q6H PRN IV PUSH 11/14/17 15:45 11/18/17 16:03 Miscellaneous Information 1 Q361D XX 11/14/17 15:45 11/14/17 15:45 (Chlorhexidine 2% Cloth) Taper DAILY@04 TOP 11/15/17 04:00 11/11/18 03:59 11/20/17 04:00 (Chlorhexidine 2% Cloth) 3 pack UNSCH PRN TOP 11/14/17 15:45 (Ricarda-Colace) 1 tab BID PO 11/14/17 21:00 11/27/17 08:53 (Milk Of Magnesia Liq) 30 ml Q12H PRN PO 11/14/17 15:45 (Senokot) 17.2 mg Q12H PRN PO 11/14/17 15:45 (Dulcolax Supp) 10 mg DAILY PRN RECTAL 11/14/17 15:45 (Lactulose Liq) 30 ml DAILY PRN PO 11/14/17 15:45 Potassium Chloride 100 ml @ 50 mls/hr Q2H PRN IV 11/14/17 15:45 Potassium Chloride 100 ml @ 50 mls/hr Q2H PRN IV 11/14/17 15:45 (K-Lyte Cl Eff) 50 meq UNSCH PRN PO 11/14/17 15:45 Potassium Chloride 100 ml @ 25 mls/hr UNSCH PRN IV 11/14/17 15:45 Potassium Chloride 100 ml @ 50 mls/hr Q2H PRN IV 11/14/17 15:45 Magnesium Sulfate 4 gm/Sodium Chloride 100 ml @ 50 mls/hr UNSCH PRN IV 11/14/17 15:45 (Mag-Ox) 800 mg UNSCH PRN PO 11/14/17 15:45 Magnesium Sulfate 2 gm/Sodium Chloride 100 ml @ 50 mls/hr UNSCH PRN IV 11/14/17 15:45 (K-Phos) 2,000 mg Q4H PRN PO 11/14/17 15:45 Sodium Phosphate 30 mmol/Sodium Chloride 250 ml @ 42 mls/hr UNSCH PRN IV 11/14/17 15:45 (K-Phos) 2,000 mg UNSCH PRN PO/TUBE 11/14/17 15:45 Potassium Phosphate 30 mmol/ Sodium Chloride 260 ml @ 42 mls/hr UNSCH PRN IV 11/14/17 15:45 (Eliquis) 5 mg BID PO 11/14/17 21:00 11/27/17 08:53 (Lipitor) 80 mg HS PO 11/14/17 21:00 11/26/17 20:24 (Lanoxin) 0.125 mg DAILY PO 11/15/17 09:00 Future Hold 11/17/17 08:24 (Cardizem) 60 mg QID PO 11/14/17 18:00 11/27/17 08:53 (Lopressor) 50 mg BID PO 11/14/17 21:00 11/27/17 08:53 Patient Own Medication PT OWN MED: Mometas... HS INH 11/14/17 21:00 Future Hold (Lopressor Inj) 2.5 mg Q6H PRN IV PUSH 11/15/17 09:15 11/27/17 03:52 (Apresoline Inj) 20 mg Q4H PRN IV PUSH 11/17/17 12:00 11/22/17 07:38 (SoluMEDROL INJ) 40 mg DAILY IV PUSH 11/19/17 09:00 11/27/17 08:54 (Symbicort 160-4.5 Mcg Inh) 2 puff Q12HR INH 11/18/17 21:00 11/27/17 08:54 Fentanyl Citrate 250 ml @ 5 mls/hr TITRATE PRN IV 11/18/17 22:15 11/19/17 15:38 (Peridex 0.12% Liq) 15 ml BID@08,20 MT 11/19/17 08:00 11/26/17 19:35 (Duoneb Neb) 1 ampule Q2HR NEB PRN INH 11/18/17 22:30 11/26/17 03:13 Piperacillin Sod/ Tazobactam Sod 50 ml @ 100 mls/hr Q8H IV 11/19/17 20:00 11/27/17 19:59 11/27/17 04:25 (Pepcid) 10 mg BID PO 11/22/17 21:00 11/27/17 08:53 Dexmedetomidine HCl 1000 mcg/ Sodium Chloride 250 ml @ 5.05 mls/hr TITRATE PRN IV 11/23/17 22:45 11/26/17 20:30 (Levemir Inj) 25 units Q12HR SQ 11/26/17 21:00 11/27/17 08:53 (NovoLOG SUPPLEMENTAL SCALE) 1 Q4HR SQ 11/26/17 16:00 11/27/17 08:55 (D50w (Vial) Inj) 25 ml UNSCH PRN IV 11/26/17 15:30 (Glucagon Inj) 1 mg UNSCH PRN IM/SQ 11/26/17 15:30 Amiodarone HCl 450 mg/Sodium Chloride 250 ml @ 33.33 mls/ hr Q7H31M PRN IV 11/26/17 17:20 11/26/17 17:59 (Lopressor Inj) 5 mg Q6H PRN IV PUSH 11/26/17 17:15 Pharmacy Profile Note 0 ml @ 0 mls/hr UNSCH OTHER 11/26/17 18:45 Vancomycin HCl 1750 mg/Sodium Chloride 517.5 ml @ 250 mls/hr Q24H IV 11/27/17 20:00 Miscellaneous Information SPECIFIC LAB TO BE LEEANN... ONCE ONCE .XX 11/28/17 19:45 11/28/17 19:46 OBJECTIVE: Vital Signs Date Time Temp Pulse Resp B/P (MAP) Pulse Ox O2 Delivery O2 Flow Rate FiO2 11/27/17 07:49 96 30 11/27/17 06:27 137 140/80 11/27/17 06:00 118 11/27/17 04:36 98 30 11/27/17 04:00 130 11/27/17 04:00 98.9 130 26 151/90 (110) 91 11/27/17 03:45 129 19 153/84 (107) 94 11/27/17 03:30 125 18 165/83 (110) 93 11/27/17 03:15 129 19 153/79 (103) 94 11/27/17 03:00 126 21 149/97 (114) 94 11/27/17 02:45 117 33 154/72 (99) 93 11/27/17 02:30 116 40 146/78 (100) 92 11/27/17 02:15 122 24 149/73 (98) 94 11/27/17 02:00 64 49 136/80 (98) 92 11/27/17 02:00 64 11/27/17 01:45 63 30 135/73 (93) 91 11/27/17 01:30 62 42 131/72 (91) 91 11/27/17 01:15 61 40 135/75 (95) 94 11/27/17 01:00 60 24 131/74 (93) 95 11/27/17 00:45 58 35 125/74 (91) 95 18 00:30 58 27 127/77 (94) 95 18 00:20 95 30 18 00:15 56 35 118/69 (85) 95 18 00:00 56 18 00:00 98.7 56 26 124/76 (92) 95 18 23:57 56 124/76 11/26/17 23:45 81 18 102/67 (79) 95 11/26/17 23:30 96 18 104/60 (75) 94 11/26/17 23:15 127 24 132/78 (96) 92 18 23:00 132 20 132/86 (101) 90 11/26/17 22:45 122 25 137/68 (91) 91 11/26/17 22:30 124 18 133/75 (94) 90 11/26/17 22:15 120 18 100/73 (82) 90 11/26/17 22:00 128 18 130/76 (94) 90 11/26/17 22:00 128 11/26/17 21:45 124 29 83 11/26/17 21:41 123 29 132/70 (90) 85 18 21:30 130 22 95 11/26/17 21:15 129 31 91 11/26/17 21:00 130 43 144/86 (105) 92 11/26/17 20:45 129 37 97 11/26/17 20:30 131 18 181/82 (115) 90 11/26/17 20:15 95 30 11/26/17 20:15 136 18 95 11/26/17 20:00 98.9 134 18 158/87 (110) 93 18 20:00 134 18 19:45 128 18 95 18 19:30 129 19 145/77 (99) 88 18 19:15 122 19 93 11/26/17 19:01 121 18 112/60 (77) 87 18 19:00 121 20 80 18 19:00 142 143/102 18 18:00 142 18 18:00 142 22 143/102 (116) 95 11/26/17 17:59 140 11/26/17 17:57 146 3/30/18 17:00 148 11/26/17 17:00 148 24 129/78 (95) 94 11/26/17 16:00 76 24 134/70 (91) 96 11/26/17 16:00 30 11/26/17 16:00 99.7 11/26/17 15:26 99 30 11/26/17 15:00 76 18 132/81 (98) 95 11/26/17 14:00 73 18 115/65 (82) 97 11/26/17 13:00 79 18 149/88 (108) 95 11/26/17 12:08 99 40 11/26/17 12:00 30 11/26/17 12:00 79 18 104/66 (79) 98 11/26/17 12:00 101.9 11/26/17 11:00 75 35 167/88 (114) 93 11/26/17 10:00 75 40 145/73 (97) 94 11/26/17 09:39 96 40 11/26/17 09:39 40 Vital Signs Date Time Temp Pulse Resp B/P (MAP) Pulse Ox O2 Delivery O2 Flow Rate FiO2 11/26/17 09:39 96 40 11/26/17 09:39 40 11/26/17 06:00 83 11/26/17 04:00 99.0 80 18 136/72 (93) 96 11/26/17 04:00 30 11/26/17 04:00 80 11/26/17 03:13 98 40 11/26/17 02:00 80 11/26/17 00:00 72 11/26/17 00:00 99.2 72 18 122/74 (90) 96 11/26/17 00:00 30 11/25/17 23:38 97 40 11/25/17 22:00 69 11/25/17 20:00 99.8 96 18 160/92 (114) 95 11/25/17 20:00 96 11/25/17 20:00 30 11/25/17 19:41 99 40 11/25/17 18:00 86 11/25/17 17:00 78 11/25/17 16:00 30 11/25/17 16:00 78 11/25/17 16:00 98.5 78 18 126/80 (95) 99 11/25/17 15:45 100 40 11/25/17 15:00 75 11/25/17 14:00 71 11/25/17 13:00 72 11/25/17 12:00 98.5 72 18 85/48 (60) 81 11/25/17 12:00 30 11/25/17 12:00 72 11/25/17 11:51 97 40 11/25/17 11:15 30 11/25/17 11:00 75 Laboratory Tests Test 11/26/17 10:49 White Blood Count 20.9 TH/MM3 Red Blood Count 4.43 MIL/MM3 Hemoglobin 11.6 GM/DL Hematocrit 38.2 % Mean Corpuscular Volume 86.1 FL Mean Corpuscular Hemoglobin 26.2 PG Mean Corpuscular Hemoglobin Concent 30.5 % Red Cell Distribution Width 18.8 % Platelet Count 347 TH/MM3 Mean Platelet Volume 9.8 FL Laboratory Tests Test 11/26/17 10:49 Blood Urea Nitrogen 76 MG/DL Creatinine 1.66 MG/DL Random Glucose 363 MG/DL Total Protein 6.0 GM/DL Albumin 2.6 GM/DL Calcium Level 8.1 MG/DL Phosphorus Level 3.5 MG/DL Alkaline Phosphatase 142 U/L Aspartate Amino Transf (AST/SGOT) 21 U/L Alanine Aminotransferase (ALT/SGPT) 43 U/L Total Bilirubin 0.4 MG/DL Sodium Level 149 MEQ/L Potassium Level 4.3 MEQ/L Chloride Level 110 MEQ/L Carbon Dioxide Level 30.3 MEQ/L Anion Gap 9 MEQ/L Estimat Glomerular Filtration Rate 40 ML/MIN Microbiology Date/Time Source Procedure Growth Status 11/26/17 17:58 Blood Peripheral Aerobic Blood Culture Pending Received 11/26/17 17:58 Blood Peripheral Anaerobic Blood Culture Pending Received 11/26/17 17:53 Blood Peripheral Aerobic Blood Culture Pending Received 11/26/17 17:53 Blood Peripheral Anaerobic Blood Culture Pending Received 11/26/17 14:05 Sputum Endotracheal Gram Stain - Final Resulted 11/26/17 14:05 Sputum Endotracheal Sputum Culture Pending Resulted Laboratory Tests Laboratory Tests Test 11/23/17 10:55 11/24/17 08:27 11/25/17 04:57 White Blood Count 11.3 TH/MM3 10.3 TH/MM3 10.5 TH/MM3 Red Blood Count 3.47 MIL/MM3 3.93 MIL/MM3 4.03 MIL/MM3 Hemoglobin 9.3 GM/DL 10.7 GM/DL 10.7 GM/DL Hematocrit 29.5 % 33.6 % 34.0 % Mean Corpuscular Volume 85.3 FL 85.4 FL 84.5 FL Mean Corpuscular Hemoglobin 26.8 PG 27.1 PG 26.6 PG Mean Corpuscular Hemoglobin Concent 31.4 % 31.7 % 31.5 % Red Cell Distribution Width 17.9 % 18.3 % 18.0 % Platelet Count 166 TH/MM3 168 TH/MM3 204 TH/MM3 Mean Platelet Volume 8.8 FL 9.1 FL 9.6 FL Neutrophils (%) (Auto) 87.8 % 83.5 % 81.6 % Lymphocytes (%) (Auto) 6.2 % 10.2 % 10.7 % Monocytes (%) (Auto) 5.7 % 6.0 % 7.0 % Eosinophils (%) (Auto) 0.1 % 0.1 % 0.2 % Basophils (%) (Auto) 0.2 % 0.2 % 0.5 % Neutrophils # (Auto) 9.9 TH/MM3 8.6 TH/MM3 8.6 TH/MM3 Lymphocytes # (Auto) 0.7 TH/MM3 1.0 TH/MM3 1.1 TH/MM3 Monocytes # (Auto) 0.6 TH/MM3 0.6 TH/MM3 0.7 TH/MM3 Eosinophils # (Auto) 0.0 TH/MM3 0.0 TH/MM3 0.0 TH/MM3 Basophils # (Auto) 0.0 TH/MM3 0.0 TH/MM3 0.1 TH/MM3 CBC Comment DIFF FINAL DIFF FINAL DIFF FINAL Differential Comment Blood Urea Nitrogen 48 MG/DL 62 MG/DL 68 MG/DL Creatinine 1.19 MG/DL 1.43 MG/DL 1.72 MG/DL Random Glucose 264 MG/DL 389 MG/DL 410 MG/DL Calcium Level 8.2 MG/DL 8.2 MG/DL 8.2 MG/DL Sodium Level 148 MEQ/L 147 MEQ/L 147 MEQ/L Potassium Level 4.0 MEQ/L 4.5 MEQ/L 4.6 MEQ/L Chloride Level 112 MEQ/L 112 MEQ/L 112 MEQ/L Carbon Dioxide Level 29.9 MEQ/L 30.7 MEQ/L 28.0 MEQ/L Anion Gap 6 MEQ/L 4 MEQ/L 7 MEQ/L Estimat Glomerular Filtration Rate 59 ML/MIN 48 ML/MIN 39 ML/MIN Total Protein 5.6 GM/DL Albumin 2.5 GM/DL Alkaline Phosphatase 85 U/L Aspartate Amino Transf (AST/SGOT) 15 U/L Alanine Aminotransferase (ALT/SGPT) 29 U/L Total Bilirubin 0.5 MG/DL Test 11/21/17 15:27 11/22/17 05:15 11/23/17 10:55 White Blood Count 10.5 TH/MM3 8.8 TH/MM3 11.3 TH/MM3 Red Blood Count 3.82 MIL/MM3 3.68 MIL/MM3 3.47 MIL/MM3 Hemoglobin 10.3 GM/DL 9.9 GM/DL 9.3 GM/DL Hematocrit 32.1 % 31.1 % 29.5 % Mean Corpuscular Volume 84.0 FL 84.4 FL 85.3 FL Mean Corpuscular Hemoglobin 26.9 PG 26.8 PG 26.8 PG Mean Corpuscular Hemoglobin Concent 32.0 % 31.8 % 31.4 % Red Cell Distribution Width 17.1 % 17.4 % 17.9 % Platelet Count 134 TH/MM3 142 TH/MM3 166 TH/MM3 Mean Platelet Volume 8.3 FL 8.7 FL 8.8 FL Neutrophils (%) (Auto) 91.5 % 84.2 % 87.8 % Lymphocytes (%) (Auto) 6.3 % 10.0 % 6.2 % Monocytes (%) (Auto) 2.1 % 5.6 % 5.7 % Eosinophils (%) (Auto) 0.0 % 0.0 % 0.1 % Basophils (%) (Auto) 0.1 % 0.2 % 0.2 % Neutrophils # (Auto) 9.6 TH/MM3 7.4 TH/MM3 9.9 TH/MM3 Lymphocytes # (Auto) 0.7 TH/MM3 0.9 TH/MM3 0.7 TH/MM3 Monocytes # (Auto) 0.2 TH/MM3 0.5 TH/MM3 0.6 TH/MM3 Eosinophils # (Auto) 0.0 TH/MM3 0.0 TH/MM3 0.0 TH/MM3 Basophils # (Auto) 0.0 TH/MM3 0.0 TH/MM3 0.0 TH/MM3 CBC Comment DIFF FINAL DIFF FINAL DIFF FINAL Differential Comment Microbiology Date/Time Source Procedure Growth Status 11/14/17 13:45 Blood Peripheral Aerobic Blood Culture - Final NO GROWTH IN 5 DAYS Complete 11/14/17 13:45 Blood Peripheral Anaerobic Blood Culture - Final NO GROWTH IN 5 DAYS Complete 11/15/17 16:50 Sputum Expectorated Sputum Gram Stain - Final Complete 11/15/17 16:50 Sputum Culture - Final Klebsiella Pneumoniae Complete 11/16/17 11:30 Urine Catheterized Urine Urine Culture - Final NO GROWTH IN 48 HOURS. Complete IMAGING Chest X-Ray 11/27/17 0600 Signed Impressions: Service Date/Time: Monday, November 27, 2017 04:44 - CONCLUSION: Consolidation left lung base is stable. No pneumothorax. Tubes and catheters in good position. Santy Roblero MD Chest X-Ray 11/21/17 0000 Signed Impressions: Service Date/Time: Tuesday, November 21, 2017 10:03 - CONCLUSION: Left basilar streakiness consistent with atelectasis and/or infiltrate. Hossein Torres MD PHYSICAL EXAMINATION: GENERAL: Awake, following commands, on the vent, looks tachypneic SKIN: Cool and moist, no generalized rash HEENT: Aqu[place] conjunctivae, no petechia, no scleral icterus. He is orally intubated NECK: No swelling or adenopathy. LUNGS: Coarse breath sounds bilaterally HEART: Irregular rate and rhythm ABDOMEN: Bowel sounds present, but diminished; obese, soft. No tenderness EXTREMITIES: Bilateral pitting pedal edema of the lower extremities, bilateral. No clubbing or cyanosis. NEUROLOGIC: Nonfocal. PSYCHIATRIC: Calm and cooperative. LINE: No evidence of infection : Haynes in place with some sediment IMPRESSION: 1. Probable sepsis. 2. Pneumonia gram-negative. Klebsiella - completing treatment 3. Acute respiratory failure. Extubated and reintubated appears to have aspirated. 4. Leukocytosis: infection, steroids. - worse again - ?stress due to arrhythmia - concern with new PNA wince he had fevers 5. History of chronic obstructive pulmonary disease and recent chronic obstructive pulmonary disease exacerbation. 6. New fever and worsening leukocytosis, ?new infection - ?new PNA, ?, has no lines RECOMMENDATIONS: To finish Zosyn today Add Zyvox and Diflucan to cover for no pneumonia and UTI Add Levaquin Monitor temps Follow new cultures Monitor progress Weaning per CCM Discussed with Elsie Conrad MD Nov 27, 2017 09:27
[2017-11-27 10:18] LABS: AUTOMATED NEUTROPHIL # 18.6 TH/MM3 (1.8-7.7); BASOPHIL % 0.2 % (0.0-2.0); EOSINOPHIL % 0.1 % (0.0-4.0); HEMATOCRIT 40.5 % (39.0-51.0); HEMOGLOBIN 12.1 GM/DL (13.0-17.0); LYMPH % 15.8 % (9.0-44.0); LYMPHOCYTE # 3.8 TH/MM3 (1.0-4.8); MEAN CELL VOLUME 87.8 FL (80.0-100.0); MEAN CORPUSCULAR HEMOGLOBIN 26.2 PG (27.0-34.0); MEAN PLATELET VOLUME 9.9 FL (7.0-11.0); MONO % 6.1 % (0.0-8.0); MONOCYTE # 1.5 TH/MM3 (0-0.9); NEUT % 77.8 % (16.0-70.0); PLATELET COUNT 474 TH/MM3 (150-450); RED BLOOD COUNT 4.62 MIL/MM3 (4.50-5.90); RED CELL DISTRIBUTION WIDTH 18.6 % (11.6-17.2); WHITE BLOOD COUNT 23.9 TH/MM3 (4.0-11.0)
[2017-11-27 10:21] LABS: MEAN CORPUSCULAR HGB CONC 29.8 % (32.0-36.0)
--- NOTE | 2017-11-27 10:44 | RADRPT ---
EXAM DATE/TIME: 11/27/2017 10:06 [facility] COMPARISON: CHEST SINGLE AP, November 18, 2017, 20:25. CHEST SINGLE AP, November 21, 2017, 10:03. CHEST SINGLE AP, [facility] 2017, 3:50. CHEST SINGLE AP, November 27, 2017, 4:44. INDICATIONS : Post cardiac arrest. MEDICAL HISTORY : Chronic obstructive pulmonary disease. SURGICAL HISTORY : None. ENCOUNTER: Subsequent ACUITY: 3 days PAIN SCORE: Non-responsive. LOCATION: Bilateral chest FINDINGS: 3 AP portable supine views of the chest were obtained and demonstrate a new moderate to large right p neumothorax. The basilar component of the pneumothorax is the largest and measures up to approximatel y 8.5 cm. The pneumothorax extends along the right lateral chest wall to the lung apex and is poorly defined. There is mild consolidation in the central collapsed portion of the right lung. There is mil d mediastinal shift to the left. The heart size is within normal limits. The patient remains intubate d with the endotracheal tube tip approximately 5 cm above the toña. A nasogastric tube is again see n coursing through the esophagus and into the stomach. Both costophrenic angles are blunted. CONCLUSION: 1. New moderate to large right pneumothorax with mild mediastinal shift to the left indicating appare nt tension. 2. The patient remains intubated. These findings were called to Dr. Ennis at 1040 hrs. Liang Jimenez MD on November 27, 2017 at 10:31 Board Certified Radiologist. This report was verified electronically.
[2017-11-27 11:04] LABS: ALBUMIN 2.5 GM/DL (3.4-5.0); ALKALINE PHOSPHATASE 144 U/L (45-117); ALT (GPT) 54 U/L (12-78); AST (GOT) 33 U/L (15-37); BLOOD UREA NITROGEN 66 MG/DL (7-18); CHLORIDE 111 MEQ/L (98-107); GLOMERULAR FILTRATION RATE 39 ML/MIN (>89); GLUCOSE,RANDOM 255 MG/DL (74-106); MAGNESIUM 2.8 MG/DL (1.5-2.5); PHOSPHORUS 4.2 MG/DL (2.5-4.9); SODIUM (NA) 148 MEQ/L (136-145); TOTAL BILIRUBIN ADULT 0.4 MG/DL (0.2-1.0); TOTAL PROTEIN 6.3 GM/DL (6.4-8.2); TROPONIN I 0.45 NG/ML (0.02-0.05)
[2017-11-27] MEDS ORDERED: LIDOCAINE HCL 2% 50 ML VIAL ONE (11:39)
--- NOTE | 2017-11-27 11:57 | RADRPT ---
EXAM DATE/TIME: 11/27/2017 11:21 [facility] COMPARISON: CHEST SINGLE AP, November 27, 2017, 10:06. INDICATIONS : Followup right pneumothorax status post right chest tube placement. MEDICAL HISTORY : Chronic obstructive pulmonary disease. SURGICAL HISTORY : None. ENCOUNTER: Subsequent ACUITY: 3 days PAIN SCORE: Non-responsive. LOCATION: Bilateral chest FINDINGS: 2 AP views of the chest were obtained and demonstrate interval placement of a small bore right-sided chest tube with the tip of the catheter projected over the right upper lobe. There is been no definit e significant change in the moderate to large right pneumothorax. Subcutaneous emphysema is now noted over the right lateral chest wall. There is no evidence of mediastinal shift. The right lung remains collapsed centrally. There is patchy opacity in the left lung base. The endotracheal tube remains in place with the tip approximately 4-5 cm above the toña. The nasogastric tube remains in place. CONCLUSION: Interval placement of small bore right-sided chest tube with no definite significant change in the ri ght sided pneumothorax. Liang Jimenez MD on November 27, 2017 at 11:53 Board Certified Radiologist. This report was verified electronically.
--- NOTE | 2017-11-27 12:51 | RADRPT ---
EXAM DATE/TIME: 11/27/2017 12:22 [facility] COMPARISON: CHEST SINGLE AP, November 27, 2017, 11:21. INDICATIONS : Post right side chest tube placement. Followup pneumothorax MEDICAL HISTORY : Chronic obstructive pulmonary disease. SURGICAL HISTORY : None. ENCOUNTER: Subsequent ACUITY: 2 weeks PAIN SCORE: Non-responsive. LOCATION: Right chest FINDINGS: A single AP supine portable view of the chest was obtained and demonstrates interval placement of a l arge bore right-sided chest tube with the tip projected over the mid medial right lung. There has bee n a mild interval decrease in the right pneumothorax with at least moderate residual pneumothorax aga in noted. This extends from the lung apex to the base. Small bore right-sided chest tube remains in p lace. The patient remains intubated with the endotracheal tube tip approximately 4-5 cm above the car gordon. The nasogastric tube remains in place. There is increased subcutaneous emphysema along the right lateral chest wall. The heart size remains within normal limits. There is no mediastinal shift. CONCLUSION: Interval placement of large bore right-sided chest tube with mild decrease in the size of the right p neumothorax. At least a moderate pneumothorax remains. Liang Jimenez MD on November 27, 2017 at 12:47 Board Certified Radiologist. This report was verified electronically.
--- NOTE | 2017-11-27 13:36 | HHI.CCPN ---
Subjective Remarks/Hospital Course This is a 77-year-old male with a medical history significant for COPD, CHF, A. fib, diabetes, that presented to emergency department from [facility] for evaluation of worsening shortness of breath over the last 3 days. The patient was been given Solu-Medrol 125 mg and 2 albuterol treatments enroute to ED. Upon presentation to the ED the patient was on a nonrebreather. He was tachypneic and tachycardic. Patient's medical history significant for MRSA pneumonia previously admitted on 10/27/16 for approximately 12 days at [facility]. The patient is normally on 2.5 L/m nasal cannula O2 home dependency, and he lives with ( normally) a PCO2 in the 80s according to his . Patient was then discharged to [facility], and then transferred to [facility] for rehabilitation. He has been on an unknown antibiotic per the family and steroids for the last 3 days. Laboratory and imaging studies were performed with noted elevation in CO2 The patient was given empiric antibiotics in the ED and placed on BiPAP. Critical care medicine was consulted. Subjective: 11/15: Patient maintained on BiPAP throughout the night O2 saturations 97-98% on FiO2 of 0.40. Hemodynamically stable. Attempts made to wean patient to nasal cannula this a.m. unsuccessful, patient's O2 saturation in the 70s, patient placed back on BiPAP. Chest x-ray pending WBC count significantly diminished, leukocytosis resolved. Patient extremely anxious, Precedex infusion initiated. 11/16: Late entry note. Patient seen 10 AM. Overnight the patient converted to A. fib RVR, despite being on Cardizem 4 times a day and metoprolol twice a day- home medications, the patient received IV Cardizem followed by amiodarone infusion. Per report the patient became hypotensive, Cardizem discontinued. Amiodarone continued. Early this a.m. patient was resting comfortably A. fib rate controlled rate. The patient suddenly converted to A. fib RVR heart rate 150s-160s, acute hypoxemic respiratory failure, requiring intubation. The patient was intubated uneventfully and continues on amiodarone at 0.5 mg/hour, rate now controlled in conjunction with sedation. 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 Reyes X-ray revealed lung consolidation improved, chest x- ray clear. Plan for CPAP trials in a.m.. 11/17: No acute events overnight. Patient had 1 short 8 beat run of V. tach last evening was self resolution, electrolytes within normal limits. The patient continues on amiodarone 0.5 mg/hr. CPAP trials initiated this a.m.. Tube feeds initiated at trickle feeds. Patient converted to sinus rhythm at 2 AM. 11/18 Patient remains sedated and intubated. Afebrile. 11/19 Patient was extubated yesterday however last night he was noted to choke on water provided by the family. Stat ABG demonstrated acute hypercapnic respiratory failure and was emergently intubated. Currently sedated and intubated. 11/20 Patient remains intubated on Fentanyl drip however he si awake and alert. Afebrile. 11/21 Patient is awake and alert placed on CPAP with PS:15, PEEP:5. Afebrile. 11/22 Patient remains intubated , did not tolerate CPAP trials yesterday as he became tachycardic and hypertensive. On no sedation awake and alert. 11/23 No events overnight, off sedation. 11/24: Resting comfortably on mechanical ventilation currently. Daily C Pap trials ongoing. 11/25: Sedated with Precedex, orally intubated on mechanical ventilation. Daily C Pap trials 11/26: Sedated with Precedex, orally intubated on mechanical ventilation. Got tachypneic with CPAP trial today hence placed back on PRVC. Spiked a fever, garcia cultures ordered. Went into A. fib with RVR subsequently for which being initiated on amiodarone bolus followed by drip and Lopressor 5 mg IV every 6 as needed for 11/27: This morning patient developed bradycardia followed by asystole for which she had 3 minutes CPR with ACLS protocol with return of spontaneous circulation. Post code chest x-ray revealed moderate to large right pneumothorax for which a right pigtail catheter was placed by me however despite airleak patient continue have moderate to large pneumothorax hence a second right sided 28 Spanish chest tube was placed to -40 cm water pressure. Air leaks 1+ in both pigtail catheter and chest tube. Patient remains in a flutter currently. Dr. reyes evaluated patient as well following cardiac arrest. Objective Vital Signs Date Time Temp Pulse Resp B/P (MAP) Pulse Ox O2 Delivery O2 Flow Rate FiO2 3/31/18 12:00 97.6 95 46 112/58 (76) 95 11/27/17 12:00 100 Intake and Output 11/27/17 11/27/17 11/28/17 08:00 16:00 00:00 Intake Total 689.7 ml Output Total 575 ml Balance 114.7 ml Result Diagram: 11/27/17 1000 11/27/17 1000 Imaging Last Impressions Chest X-Ray 11/21/17 0000 Signed Impressions: Service Date/Time: Tuesday, November 21, 2017 10:03 - CONCLUSION: Left basilar streakiness consistent with atelectasis and/or infiltrate. Hossein Torres MD Objective Remarks GENERAL: Patient is 77 yo intubated SKIN: Warm and dry. HEAD: Normocephalic. EYES: No scleral icterus. No injection or drainage. NECK: Supple, trachea midline. No JVD or lymphadenopathy. CARDIOVASCULAR: S1-S2 irregularly irregular, no gallop or murmur. RESPIRATORY: Orally intubated on mechanical ventilation, air entry decreased overl right lung field, scattered rhonchi bilaterally, no wheezing GASTROINTESTINAL: Abdomen soft, non-tender, nondistended. MUSCULOSKELETAL: No cyanosis, or edema. Neuro: orally intubated, following commands prior to cardiac arrest however following asystole episode remains encephalopathic, not following commands. A/P Problem List: (1) A-fib ICD Code: I48.91 - Unspecified atrial fibrillation (2) CHF (congestive heart failure) ICD Code: I50.9 - Heart failure, unspecified Status: Chronic (3) HTN (hypertension) ICD Code: I10 - Essential (primary) hypertension Status: Chronic (4) ADRIAN (obstructive sleep apnea) ICD Code: G47.33 - Obstructive sleep apnea (adult) (pediatric) Status: Chronic (5) MRSA pneumonia ICD Code: J15.212 - Pneumonia due to Methicillin resistant Staphylococcus aureus Status: Acute (6) Diabetes mellitus type 2, insulin dependent ICD Code: E11.9 - Type 2 diabetes mellitus without complications; Z79.4 - residential (current) use of insulin Status: Chronic (7) COPD (chronic obstructive pulmonary disease) ICD Code: J44.9 - Chronic obstructive pulmonary disease, unspecified Status: Acute (8) Respiratory distress ICD Code: R06.03 - Acute respiratory distress Status: Acute (9) Leukocytosis ICD Code: D72.829 - Elevated white blood cell count, unspecified Status: Acute (10) Lung consolidation ICD Code: J18.1 - Lobar pneumonia, unspecified organism Status: Acute (11) Anxiety ICD Code: F41.9 - Anxiety disorder, unspecified Status: Chronic Assessment and Plan Plan by systems: Neurologic: 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 We will use propofol if needed for sedation. Follow neuro status. Hold gabapentin 300mmg q HS home med Respiratory: Acute respiratory failure on mechanical ventilation- extubated and reintubated night of 11/18 after he was noted to choke on water provided by family. COPD exacerbation Pneumonia-MRSA Right sided pneumothorax following CPR status post pigtail catheter/chest tube placement 11/27 Obstructive sleep apnea Home O2 dependency Continue with vent support keep sats >92% Bronchodilators, methylprednisolone 40 mg IV daily Pulmonology following- Dr Price, Right sided chest tube/pigtail catheter in place with 1+ air leaks in both. Some improvement in right sided pneumothorax however still present on follow-up chest x-ray. Continue both chest tubes to -40 cm water pressure with underwater seal. Cardiovascular: A. fib RVR Cardiac arrest - asystole, status post CPR 11/27 History of CHF CAD On Eliquis 5 mg twice a day, atorvastatin 80 daily at bedtime, metoprolol 50 mg twice a day, Cardizem 60 mg 4 times a day . Hold amiodarone and beta naomy/ Cardizem for now. Lopressor 5 mg IV every 6 hourly as needed for heart rate greater than 130 Cards is following- Dr. Reyes- Echo showed EF 65-70% Renal: Monitor renal function, electrolytes replacement per protocol. Diurese with Lasix as tolerated. FEN/GI: Electrolyte derangement GERD held tube feeds following cardiac arrest- On Jevity 1.5, will resume when more stable. Pepcid for GI prophylaxis Heme/ID: Pneumonia MRSA positive-on 10/27 Leukocytosis ID following- Antibiotics per ID (on by mouth Zyvox, IV Levaquin, vancomycin, fluconazole). 11/14 Obtain blood , urine - NGTD 11/16 Obtain sputum cultures- Kleb pneumonia Monitor CBC Garcia cultures repeated on 11/26, results pending. Endocrine: Glucose monitoring per ICU protocol-low dose regimen -- SSI(high scale) Levemir increased from 14u Q12 to 25 units every 12 hourly Prophylaxis: GI Prophylaxis Famotidine BID DVT Prophylaxis -- SCDs Continue home dose Eliquis 5 mg BID Lines: PIVs 2. Condition critical. Time spent on critical care excluding procedures 45 minutes Problem Qualifiers (1) COPD (chronic obstructive pulmonary disease): Qualified Codes: J44.9 - Chronic obstructive pulmonary disease, unspecified (2) Leukocytosis: Qualified Codes: D72.829 - Elevated white blood cell count, unspecified Lars Flores MD Nov 27, 2017 13:36
--- NOTE | 2017-11-27 13:49 | PD.PROCEDR ---
Procedure Note Procedure Procedure: Right sided Pigtail catheter placement site: Right pleural cavity Preop diagnosis: Right pneumothorax Postop diagnosis: Same Informed consent: Emergent procedure. Verbal consent obtained from patient's .. Anesthesia used: 1% lidocaine for local infiltration anesthesia Procedure: After sterile prepping and draping using 1% lidocaine for local infiltration anesthesia, introducer Angiocath was used to enter Right pleural cavity in third intercostal space in midclavicular line. Pleural cavity was entered as evidenced by return of air bubbles. A guidewire was passed through Angiocath without any resistance following which Angiocath was removed. 10 Japanese pigtail catheter was advanced over the guidewire into the right pleural cavity following which guidewire and stiffener were removed. Pigtail catheter was connected to Pleur-evac VAC with a connector. Pigtail catheter was sutured in place as well as secured with stayfix. Postprocedure chest x-ray was ordered and was pending at the time of this dictation. It will be reviewed when available. Patient tolerated procedure well with no immediate complications noted. Lars Flores MD Nov 27, 2017 13:49
--- NOTE | 2017-11-27 13:52 | PD.PROCEDR ---
Procedure Note Procedure Procedure: Right chest tube placement Indication: Moderate to large pneumothorax despite pigtail catheter placement Preoperative diagnosis: Moderate to large pneumothorax pneumothorax Postoperative diagnosis: Same Verbal consent obtained from patient's however this was an emergent procedure Anesthesia: 1% lidocaine for local infiltration anesthesia Procedure: After sterile prepping and draping using 1% lidocaine for local infiltration anesthesia, horizontal skin incision was made in the region of the fourth intercostal space in the anterior axillary line with a #11 scalpel blade followed by blunt dissection. Using Joseline clamp right pleural cavity was entered with gush of air heard on entry. 28 Icelandic chest tube was passed into the right pleural cavity. Chest tube was connected to Pleur-evac which were then connected to -40 cm of water pressure with underwater seal. Chest tube was secured with silk sutures following which vaseline gauze was was applied to the insertion site followed by dressing. Postprocedure chest x-ray was ordered and was pending at the time of this dictation. It will be reviewed when available. Patient tolerated the procedure well with no immediate complications noted. Lars Flores MD Nov 27, 2017 13:52
[2017-11-27] MEDS: LEVOFLOXACIN 750 MG TAB PO SCH (14:16)
[2017-11-27] MEDS: LINEZOLID 600 MG TAB PO SCH ×2 (14:16→20:17)
[2017-11-27] MEDS: fentaNYL DRIP 250 ML IV PRN (14:16)
--- NOTE | 2017-11-27 18:29 | RADRPT ---
EXAM DATE/TIME: 11/27/2017 17:44 [facility] COMPARISON: No previous studies available for comparison. INDICATIONS : F/u right pneumothorax. MEDICAL HISTORY : Chronic obstructive pulmonary disease. SURGICAL HISTORY : None. ENCOUNTER: Subsequent ACUITY: 1 day PAIN SCORE: Non-responsive. LOCATION: Bilateral chest FINDINGS: There is extensive subcutaneous air along the right hemithorax and neck. Endotracheal tube in satisfa ctory position. Enteric tube coiled in the stomach. There is a right sided chest tube identified at t he right lung base as well as a catheter at the right upper lungs. This is unchanged. There is air prabhu cency at the right lung base consistent with a small residual pneumothorax. Right apical pneumothorax again seen. CONCLUSION: Slight decrease in pneumothorax size. Rashad Bose MD on November 27, 2017 at 18:26 Board Certified Radiologist. This report was verified electronically.
[2017-11-27] MEDS ORDERED: VANCOMYCIN INJ 1,750 MG in SODIUM CHLORID 0.9% 500 ML INJ 500 ML IV SCH (20:00)
[2017-11-27] MEDS: CHLORHEXIDINE 0.12% (ORAL KIT) 15 ML CUP MT SCH (20:00)
[2017-11-27] MEDS: ATORVASTATIN 80 MG TAB PO SCH (20:17)
[2017-11-28] VITALS (52 sets, daily range): BP systolic 101–181; BP diastolic 56–84; PULSE 83–137; RESP 0–33; TEMP 99–99.6; O2SAT 93–99
[2017-11-28] MEDS: CHLORHEXIDINE GLUCONATE 2 % 1 PACK (2 CLOTHS) TOP SCH (00:16)
--- NOTE | 2017-11-28 03:11 | RADRPT ---
EXAM DATE/TIME: 11/28/2017 02:32 [facility] COMPARISON: CHEST SINGLE AP, November 27, 2017, 17:44. INDICATIONS : Concern over subcutaneous emphysema. MEDICAL HISTORY : Chronic obstructive pulmonary disease. SURGICAL HISTORY : None. ENCOUNTER: Subsequent ACUITY: 1 week PAIN SCORE: Non-responsive. LOCATION: Bilateral chest FINDINGS: A single view of the chest demonstrates a small caliber and larger caliber right-sided chest tube. Th ere is a small residual right pneumothorax with extensive subcutaneous air present. Endotracheal tube in good position. NG entering the stomach. Basilar air space disease present with s mall effusions. CONCLUSION: 1. 2 right-sided chest tubes with small right pneumothorax. Extensive subcutaneous air. Mild basilar airspace disease. Tera Gibson MD on November 28, 2017 at 3:05 Board Certified Radiologist. This report was verified electronically.
[2017-11-28] MEDS: INSULIN ASPART SUPPLEMENTAL SCALE SQ SCH ×6 (05:03→20:33)
[2017-11-28] MEDS: DILTIAZEM HCL 60 MG TAB PO SCH ×4 (07:50→20:31)
[2017-11-28] MEDS: FAMOTIDINE 20 MG TAB PO SCH ×2 (07:50→20:31)
[2017-11-28] MEDS: LINEZOLID 600 MG TAB PO SCH ×2 (07:50→20:31)
[2017-11-28] MEDS: FLUCONAZOLE 100 MG TAB PO SCH ×2 (07:51→08:03)
[2017-11-28] MEDS: CHLORHEXIDINE 0.12% (ORAL KIT) 15 ML CUP MT SCH ×2 (07:51→20:35)
[2017-11-28] MEDS: methylPREDNISolone SOD SUCC 40 MG/1 ML VIAL IV PUSH SCH (07:52)
[2017-11-28] MEDS: INSULIN DETEMIR 100 UNITS/ML VIAL SQ SCH ×2 (07:52→20:32)
[2017-11-28] MEDS: DOCUSATE SODIUM 50 MG/SENNA 8.6 MG TAB PO SCH ×2 (07:52→20:31)
[2017-11-28] MEDS: SODIUM CHLORIDE 0.9% FLUSH 10 ML FLUSH IV FLUSH SCH ×2 (07:52→20:33)
[2017-11-28] MEDS: BUDESONIDE-FORMOTEROL 160/4.5 MCG INHALER INH SCH ×2 (07:56→20:33)
[2017-11-28 08:14] LABS: AUTOMATED NEUTROPHIL # 17.8 TH/MM3 (1.8-7.7); BASOPHIL # 0.1 TH/MM3 (0-0.2); BASOPHIL % 0.5 % (0.0-2.0); HEMOGLOBIN 11.2 GM/DL (13.0-17.0); LYMPH % 3.9 % (9.0-44.0); LYMPHOCYTE # 0.8 TH/MM3 (1.0-4.8); MEAN CELL VOLUME 84.8 FL (80.0-100.0); MEAN CORPUSCULAR HEMOGLOBIN 25.6 PG (27.0-34.0); MEAN CORPUSCULAR HGB CONC 30.2 % (32.0-36.0); MEAN PLATELET VOLUME 9.9 FL (7.0-11.0); MONO % 6.1 % (0.0-8.0); MONOCYTE # 1.2 TH/MM3 (0-0.9); NEUT % 89.5 % (16.0-70.0); PLATELET COUNT 460 TH/MM3 (150-450); RED BLOOD COUNT 4.36 MIL/MM3 (4.50-5.90); RED CELL DISTRIBUTION WIDTH 18.9 % (11.6-17.2); WHITE BLOOD COUNT 19.9 TH/MM3 (4.0-11.0)
[2017-11-28] MEDS: METOPROLOL TARTRATE 50 MG TAB PO SCH ×2 (08:45→20:34)
[2017-11-28 09:03] LABS: ALBUMIN 2.1 GM/DL (3.4-5.0); ALKALINE PHOSPHATASE 173 U/L (45-117); ALT (GPT) 173 U/L (12-78); AST (GOT) 154 U/L (15-37); BICARBONATE 24.9 MEQ/L (21.0-32.0); BLOOD UREA NITROGEN 90 MG/DL (7-18); CALCIUM 7.7 MG/DL (8.5-10.1); CHLORIDE 112 MEQ/L (98-107); CREATININE 2.82 MG/DL (0.60-1.30); GLOMERULAR FILTRATION RATE 22 ML/MIN (>89); GLUCOSE,RANDOM 246 MG/DL (74-106); SODIUM (NA) 147 MEQ/L (136-145); TOTAL BILIRUBIN ADULT 0.3 MG/DL (0.2-1.0); TOTAL PROTEIN 5.4 GM/DL (6.4-8.2)
[2017-11-28] MEDS ORDERED: SODIUM CHLORID 0.9% 500 ML INJ 500 ML IV ONE (09:15)
--- NOTE | 2017-11-28 09:23 | HHI.IDPN ---
Note Infectious Disease Note ID [id number] for 77-year-old, white male who presents to the Emergency Department with shortness of breath. The patient has a history of COPD and CHF. He usually uses CPAP at the assisted living facility. He was noted to have been developing coughing and shortness of breath over the past couple of days, and his states that he was coughing a lot yesterday and bringing up mostly phlegm and that he was restless and could not sleep. Recently treated at [facility] for pneumonia due to methicillin-resistant Staphylococcus aureus. His states that he was still on the oral antibiotic for pneumonia and that he has 2 more days of the medication to complete therapy with Zyvox. Notes reviewed D/W RN Coded yesterday Monitor shows AF with controlled rate Temps better MOLLY ok, not on pressors Has 2 CT on R for PTX WBC 19 today Creatinine rising BC negative Sputum with PSAE No central line Has a Haynes PAST MEDICAL HISTORY: COPD, CHF, atrial fibrillation, insulin-dependent diabetes mellitus, hypertension, hyperlipidemia, gastroesophageal reflux, gastroparesis, iron deficiency anemia, oxygen-dependent. PAST SURGICAL HISTORY: Right knee surgery, right carpal tunnel release, cardiac ablation treatment 2002. ALLERGIES: ASPIRIN, CODEINE. Current Medications Medications (Trade) Dose Ordered Sig/Yani Route Start Time Stop Time Status Last Admin (NS Flush) 2 ml UNSCH PRN IV FLUSH 11/14/17 15:45 11/17/17 14:05 (NS Flush) 2 ml BID IV FLUSH 11/14/17 21:00 11/28/17 07:52 (Tylenol) 650 mg Q6H PRN PO 11/14/17 15:45 11/26/17 13:16 (Zofran Inj) 4 mg Q6H PRN IV PUSH 11/14/17 15:45 11/18/17 16:03 Miscellaneous Information 1 Q361D XX 11/14/17 15:45 11/14/17 15:45 (Chlorhexidine 2% Cloth) Taper DAILY@04 TOP 11/15/17 04:00 11/11/18 03:59 11/20/17 04:00 (Chlorhexidine 2% Cloth) 3 pack UNSCH PRN TOP 11/14/17 15:45 (Ricarda-Colace) 1 tab BID PO 11/14/17 21:00 11/27/17 20:17 (Milk Of Magnesia Liq) 30 ml Q12H PRN PO 11/14/17 15:45 (Senokot) 17.2 mg Q12H PRN PO 11/14/17 15:45 (Dulcolax Supp) 10 mg DAILY PRN RECTAL 11/14/17 15:45 (Lactulose Liq) 30 ml DAILY PRN PO 11/14/17 15:45 Potassium Chloride 100 ml @ 50 mls/hr Q2H PRN IV 11/14/17 15:45 Potassium Chloride 100 ml @ 50 mls/hr Q2H PRN IV 11/14/17 15:45 (K-Lyte Cl Eff) 50 meq UNSCH PRN PO 11/14/17 15:45 Potassium Chloride 100 ml @ 25 mls/hr UNSCH PRN IV 11/14/17 15:45 Potassium Chloride 100 ml @ 50 mls/hr Q2H PRN IV 11/14/17 15:45 Magnesium Sulfate 4 gm/Sodium Chloride 100 ml @ 50 mls/hr UNSCH PRN IV 11/14/17 15:45 (Mag-Ox) 800 mg UNSCH PRN PO 11/14/17 15:45 Magnesium Sulfate 2 gm/Sodium Chloride 100 ml @ 50 mls/hr UNSCH PRN IV 11/14/17 15:45 (K-Phos) 2,000 mg Q4H PRN PO 11/14/17 15:45 Sodium Phosphate 30 mmol/Sodium Chloride 250 ml @ 42 mls/hr UNSCH PRN IV 11/14/17 15:45 (K-Phos) 2,000 mg UNSCH PRN PO/TUBE 11/14/17 15:45 Potassium Phosphate 30 mmol/ Sodium Chloride 260 ml @ 42 mls/hr UNSCH PRN IV 11/14/17 15:45 (Eliquis) 5 mg BID PO 11/14/17 21:00 Future Hold 11/27/17 20:17 (Lipitor) 80 mg HS PO 11/14/17 21:00 11/27/17 20:17 (Lanoxin) 0.125 mg DAILY PO 11/15/17 09:00 Future Hold 11/17/17 08:24 (Cardizem) 60 mg QID PO 11/14/17 18:00 11/28/17 07:50 (Lopressor) 50 mg BID PO 11/14/17 21:00 11/28/17 08:45 Patient Own Medication PT OWN MED: Mometas... HS INH 11/14/17 21:00 Future Hold (Lopressor Inj) 2.5 mg Q6H PRN IV PUSH 11/15/17 09:15 11/27/17 03:52 (Apresoline Inj) 20 mg Q4H PRN IV PUSH 11/17/17 12:00 11/22/17 07:38 (SoluMEDROL INJ) 40 mg DAILY IV PUSH 11/19/17 09:00 11/28/17 07:52 (Symbicort 160-4.5 Mcg Inh) 2 puff Q12HR INH 11/18/17 21:00 11/28/17 07:56 (Peridex 0.12% Liq) 15 ml BID@08,20 MT 11/19/17 08:00 11/28/17 07:51 (Duoneb Neb) 1 ampule Q2HR NEB PRN INH 11/18/17 22:30 11/26/17 03:13 (Pepcid) 10 mg BID PO 11/22/17 21:00 11/28/17 07:50 Dexmedetomidine HCl 1000 mcg/ Sodium Chloride 250 ml @ 5.05 mls/hr TITRATE PRN IV 11/23/17 22:45 11/26/17 20:30 (Levemir Inj) 25 units Q12HR SQ 11/26/17 21:00 11/28/17 07:52 (NovoLOG SUPPLEMENTAL SCALE) 1 Q4HR SQ 11/26/17 16:00 11/28/17 07:51 (D50w (Vial) Inj) 25 ml UNSCH PRN IV 11/26/17 15:30 (Glucagon Inj) 1 mg UNSCH PRN IM/SQ 11/26/17 15:30 Amiodarone HCl 450 mg/Sodium Chloride 250 ml @ 33.33 mls/ hr Q7H31M PRN IV 11/26/17 17:20 11/26/17 17:59 Pharmacy Profile Note 0 ml @ 0 mls/hr UNSCH OTHER 11/26/17 18:45 Vancomycin HCl 1750 mg/Sodium Chloride 517.5 ml @ 250 mls/hr Q24H IV 11/27/17 20:00 11/27/17 20:16 Miscellaneous Information SPECIFIC LAB TO BE LEEANN... ONCE ONCE .XX 11/28/17 19:45 11/28/17 19:46 (Levaquin) 750 mg Q48H PO 11/27/17 09:30 11/27/17 14:16 (Zyvox) 600 mg Q12HR PO 11/27/17 09:30 11/28/17 07:50 (Diflucan) 100 mg DAILY PO 11/27/17 09:30 11/28/17 08:03 Fentanyl Citrate 250 ml @ 5 mls/hr TITRATE PRN IV 11/27/17 13:45 11/27/17 14:16 Sodium Chloride 500 ml @ 999 mls/hr Q31M ONCE IV 11/28/17 09:15 11/28/17 09:45 OBJECTIVE: Vital Signs Date Time Temp Pulse Resp B/P (MAP) Pulse Ox O2 Delivery O2 Flow Rate FiO2 11/28/17 08:00 99.2 113 19 126/60 (82) 96 11/28/17 08:00 40 11/28/17 08:00 113 11/28/17 07:40 96 40 11/28/17 06:00 100 11/28/17 05:15 96 4 106/63 (77) 96 11/28/17 05:00 96 4 101/65 (77) 96 11/28/17 04:45 95 5 106/69 (81) 96 11/28/17 04:30 95 3 105/66 (79) 96 11/28/17 04:15 95 2 112/61 (78) 96 11/28/17 04:08 95 40 11/28/17 04:00 40 11/28/17 04:00 99.2 96 3 122/63 (82) 96 11/28/17 04:00 96 11/28/17 03:45 96 0 125/66 (85) 95 11/28/17 03:30 97 8 129/73 (91) 95 11/28/17 03:15 97 5 127/61 (83) 95 11/28/17 03:00 98 24 148/68 (94) 94 11/28/17 02:45 96 22 135/63 (87) 94 11/28/17 02:30 94 26 141/68 (92) 94 11/28/17 02:15 93 31 132/69 (90) 93 11/28/17 02:00 90 11/28/17 02:00 90 16 126/70 (88) 94 11/28/17 01:45 87 24 122/59 (80) 94 11/28/17 01:30 86 16 125/63 (83) 94 11/28/17 01:15 86 15 138/65 (89) 93 11/28/17 01:00 86 13 110/61 (77) 93 11/28/17 00:30 84 12 110/57 (74) 93 11/28/17 00:15 83 12 101/58 (72) 93 11/28/17 00:02 96 40 11/28/17 00:00 40 11/28/17 00:00 84 11/28/17 00:00 99.4 84 10 103/58 (73) 93 11/27/17 23:45 84 2 111/60 (77) 93 11/27/17 23:30 83 6 105/61 (76) 93 11/27/17 23:15 83 8 110/60 (77) 93 11/27/17 23:00 82 8 112/57 (75) 93 11/27/17 22:45 82 16 113/62 (79) 93 11/27/17 22:30 82 11 112/60 (77) 93 11/27/17 22:15 83 18 113/69 (84) 93 11/27/17 22:00 90 11/27/17 22:00 81 10 111/64 (80) 92 11/27/17 21:30 82 0 113/62 (79) 93 11/27/17 21:15 83 0 87/56 (66) 92 11/27/17 21:00 86 1 106/63 (77) 94 11/27/17 20:45 87 0 106/58 (74) 94 11/27/17 20:30 89 6 116/64 (81) 93 11/27/17 20:15 87 7 111/56 (74) 94 11/27/17 20:00 90 11/27/17 20:00 40 11/27/17 20:00 100.5 90 21 122/58 (79) 93 11/27/17 19:45 89 29 128/68 (88) 96 11/27/17 19:37 96 40 11/27/17 19:30 87 25 126/62 (83) 93 11/27/17 19:15 84 43 143/74 (97) 94 11/27/17 19:12 84 29 108/69 (82) 94 11/27/17 19:09 83 27 107/61 (76) 94 11/27/17 19:06 83 28 110/61 (77) 94 11/27/17 19:03 84 31 123/68 (86) 94 11/27/17 19:00 84 27 123/75 (91) 94 11/27/17 18:00 91 11/27/17 16:00 99.7 86 24 113/67 (82) 97 11/27/17 16:00 86 11/27/17 16:00 40 11/27/17 15:39 100 40 11/27/17 14:00 82 11/27/17 12:00 97.6 95 46 112/58 (76) 95 11/27/17 12:00 100 11/27/17 12:00 85 11/27/17 12:00 100 11/27/17 11:30 98 45 143/65 (91) 92 11/27/17 11:00 71 37 111/61 (78) 97 11/27/17 10:30 73 33 93 11/27/17 10:00 74 11/27/17 10:00 74 4 105/69 (81) 11/27/17 09:30 104 19 120/65 (83) 95 11/27/17 09:25 100 Vital Signs Date Time Temp Pulse Resp B/P (MAP) Pulse Ox O2 Delivery O2 Flow Rate FiO2 11/27/17 07:49 96 30 11/27/17 06:27 137 140/80 11/27/17 06:00 118 11/27/17 04:36 98 30 11/27/17 04:00 130 11/27/17 04:00 98.9 130 26 151/90 (110) 91 11/27/17 03:45 129 19 153/84 (107) 94 11/27/17 03:30 125 18 165/83 (110) 93 11/27/17 03:15 129 19 153/79 (103) 94 11/27/17 03:00 126 21 149/97 (114) 94 11/27/17 02:45 117 33 154/72 (99) 93 11/27/17 02:30 116 40 146/78 (100) 92 11/27/17 02:15 122 24 149/73 (98) 94 11/27/17 02:00 64 49 136/80 (98) 92 11/27/17 02:00 64 11/27/17 01:45 63 30 135/73 (93) 91 11/27/17 01:30 62 42 131/72 (91) 91 11/27/17 01:15 61 40 135/75 (95) 94 11/27/17 01:00 60 24 131/74 (93) 95 11/27/17 00:45 58 35 125/74 (91) 95 11/27/17 00:30 58 27 127/77 (94) 95 11/27/17 00:20 95 30 11/27/17 00:15 56 35 118/69 (85) 95 11/27/17 00:00 56 11/27/17 00:00 98.7 56 26 124/76 (92) 95 11/26/17 23:57 56 124/76 11/26/17 23:45 81 18 102/67 (79) 95 11/26/17 23:30 96 18 104/60 (75) 94 11/26/17 23:15 127 24 132/78 (96) 92 11/26/17 23:00 132 20 132/86 (101) 90 11/26/17 22:45 122 25 137/68 (91) 91 11/26/17 22:30 124 18 133/75 (94) 90 11/26/17 22:15 120 18 100/73 (82) 90 11/26/17 22:00 128 18 130/76 (94) 90 11/26/17 22:00 128 11/26/17 21:45 124 29 83 11/26/17 21:41 123 29 132/70 (90) 85 11/26/17 21:30 130 22 95 11/26/17 21:15 129 31 91 11/26/17 21:00 130 43 144/86 (105) 92 11/26/17 20:45 129 37 97 11/26/17 20:30 131 18 181/82 (115) 90 11/26/17 20:15 95 30 11/26/17 20:15 136 18 95 11/26/17 20:00 98.9 134 18 158/87 (110) 93 11/26/17 20:00 134 11/26/17 19:45 128 18 95 11/26/17 19:30 129 19 145/77 (99) 88 11/26/17 19:15 122 19 93 11/26/17 19:01 121 18 112/60 (77) 87 11/26/17 19:00 121 20 80 11/26/17 19:00 142 143/102 11/26/17 18:00 142 11/26/17 18:00 142 22 143/102 (116) 95 11/26/17 17:59 140 11/26/17 17:57 146 11/26/17 17:00 148 11/26/17 17:00 148 24 129/78 (95) 94 11/26/17 16:00 76 24 134/70 (91) 96 11/26/17 16:00 30 11/26/17 16:00 99.7 11/26/17 15:26 99 30 11/26/17 15:00 76 18 132/81 (98) 95 11/26/17 14:00 73 18 115/65 (82) 97 11/26/17 13:00 79 18 149/88 (108) 95 11/26/17 12:08 99 40 11/26/17 12:00 30 11/26/17 12:00 79 18 104/66 (79) 98 11/26/17 12:00 101.9 11/26/17 11:00 75 35 167/88 (114) 93 11/26/17 10:00 75 40 145/73 (97) 94 11/26/17 09:39 96 40 11/26/17 09:39 40 Laboratory Tests Test 11/26/17 10:49 11/27/17 10:00 11/28/17 07:32 White Blood Count 20.9 TH/MM3 23.9 TH/MM3 19.9 TH/MM3 Red Blood Count 4.43 MIL/MM3 4.62 MIL/MM3 4.36 MIL/MM3 Hemoglobin 11.6 GM/DL 12.1 GM/DL 11.2 GM/DL Hematocrit 38.2 % 40.5 % 37.0 % Mean Corpuscular Volume 86.1 FL 87.8 FL 84.8 FL Mean Corpuscular Hemoglobin 26.2 PG 26.2 PG 25.6 PG Mean Corpuscular Hemoglobin Concent 30.5 % 29.8 % 30.2 % Red Cell Distribution Width 18.8 % 18.6 % 18.9 % Platelet Count 347 TH/MM3 474 TH/MM3 460 TH/MM3 Mean Platelet Volume 9.8 FL 9.9 FL 9.9 FL Neutrophils (%) (Auto) 77.8 % 89.5 % Lymphocytes (%) (Auto) 15.8 % 3.9 % Monocytes (%) (Auto) 6.1 % 6.1 % Eosinophils (%) (Auto) 0.1 % 0.0 % Basophils (%) (Auto) 0.2 % 0.5 % Neutrophils # (Auto) 18.6 TH/MM3 17.8 TH/MM3 Lymphocytes # (Auto) 3.8 TH/MM3 0.8 TH/MM3 Monocytes # (Auto) 1.5 TH/MM3 1.2 TH/MM3 Eosinophils # (Auto) 0.0 TH/MM3 0.0 TH/MM3 Basophils # (Auto) 0.0 TH/MM3 0.1 TH/MM3 CBC Comment DIFF FINAL DIFF FINAL Differential Comment Laboratory Tests Test 11/26/17 10:49 11/27/17 10:00 11/28/17 08:00 Blood Urea Nitrogen 76 MG/DL 66 MG/DL 90 MG/DL Creatinine 1.66 MG/DL 1.70 MG/DL 2.82 MG/DL Random Glucose 363 MG/DL 255 MG/DL 246 MG/DL Total Protein 6.0 GM/DL 6.3 GM/DL 5.4 GM/DL Albumin 2.6 GM/DL 2.5 GM/DL 2.1 GM/DL Calcium Level 8.1 MG/DL 8.0 MG/DL 7.7 MG/DL Phosphorus Level 3.5 MG/DL 4.2 MG/DL Alkaline Phosphatase 142 U/L 144 U/L 173 U/L Aspartate Amino Transf (AST/SGOT) 21 U/L 33 U/L 154 U/L Alanine Aminotransferase (ALT/SGPT) 43 U/L 54 U/L 173 U/L Total Bilirubin 0.4 MG/DL 0.4 MG/DL 0.3 MG/DL Sodium Level 149 MEQ/L 148 MEQ/L 147 MEQ/L Potassium Level 4.3 MEQ/L 4.8 MEQ/L 5.7 MEQ/L Chloride Level 110 MEQ/L 111 MEQ/L 112 MEQ/L Carbon Dioxide Level 30.3 MEQ/L 28.0 MEQ/L 24.9 MEQ/L Anion Gap 9 MEQ/L 9 MEQ/L 10 MEQ/L Estimat Glomerular Filtration Rate 40 ML/MIN 39 ML/MIN 22 ML/MIN Magnesium Level 2.8 MG/DL Total Creatine Kinase 145 U/L Creatine Kinase MB 2.7 NG/ML Troponin I 0.45 NG/ML Microbiology Date/Time Source Procedure Growth Status 11/26/17 17:58 Blood Peripheral Aerobic Blood Culture - Preliminary NO GROWTH IN 1 DAY Resulted 11/26/17 17:58 Blood Peripheral Anaerobic Blood Culture - Preliminary NO GROWTH IN 1 DAY Resulted 11/26/17 17:53 Blood Peripheral Aerobic Blood Culture - Preliminary NO GROWTH IN 1 DAY Resulted 11/26/17 17:53 Blood Peripheral Anaerobic Blood Culture - Preliminary NO GROWTH IN 1 DAY Resulted 11/26/17 14:05 Sputum Endotracheal Gram Stain - Final Resulted 11/26/17 14:05 Sputum Culture - Preliminary Pseudomonas Aeruginosa Resulted Microbiology Date/Time Source Procedure Growth Status 11/14/17 13:45 Blood Peripheral Aerobic Blood Culture - Final NO GROWTH IN 5 DAYS Complete 11/14/17 13:45 Blood Peripheral Anaerobic Blood Culture - Final NO GROWTH IN 5 DAYS Complete 11/15/17 16:50 Sputum Expectorated Sputum Gram Stain - Final Complete 11/15/17 16:50 Sputum Culture - Final Klebsiella Pneumoniae Complete 11/16/17 11:30 Urine Catheterized Urine Urine Culture - Final NO GROWTH IN 48 HOURS. Complete IMAGING Chest X-Ray 11/28/17 0000 Signed Impressions: Service Date/Time: Tuesday, November 28, 2017 02:32 - CONCLUSION: 1. 2 right- sided chest tubes with small right pneumothorax. Extensive subcutaneous air. Mild basilar airspace disease. Tera Gibson MD Chest X-Ray 11/27/17 1745 Signed Impressions: Service Date/Time: Monday, November 27, 2017 17:44 - CONCLUSION: Slight decrease in pneumothorax size. Rashad Bose MD Chest X-Ray 11/27/17 0600 Signed Impressions: Service Date/Time: Monday, November 27, 2017 04:44 - CONCLUSION: Consolidation left lung base is stable. No pneumothorax. Tubes and catheters in good position. Santy Roblero MD Chest X-Ray 11/27/17 0000 Signed Impressions: Service Date/Time: Monday, November 27, 2017 12:22 - CONCLUSION: Interval placement of large bore right-sided chest tube with mild decrease in the size of the right pneumothorax. At least a moderate pneumothorax remains. Liang Jimenez MD Chest X-Ray 11/27/17 0000 Signed Impressions: Service Date/Time: Monday, November 27, 2017 11:21 - CONCLUSION: Interval placement of small bore right-sided chest tube with no definite significant change in the right sided pneumothorax. Liang Jimenez MD Chest X-Ray 11/27/17 0000 Signed Impressions: Service Date/Time: Monday, November 27, 2017 10:06 - CONCLUSION: 1. New moderate to large right pneumothorax with mild mediastinal shift to the left indicating apparent tension. 2. The patient remains intubated. These findings were called to Dr. Ennis at 1040 hrs. Liang Jimenez MD Chest X-Ray 11/27/17 0600 Signed Impressions: Service Date/Time: Monday, November 27, 2017 04:44 - CONCLUSION: Consolidation left lung base is stable. No pneumothorax. Tubes and catheters in good position. Santy Roblero MD Chest X-Ray 11/21/17 0000 Signed Impressions: Service Date/Time: Tuesday, November 21, 2017 10:03 - CONCLUSION: Left basilar streakiness consistent with atelectasis and/or infiltrate. Hossein Torres MD PHYSICAL EXAMINATION: GENERAL: Awake, following commands, on the vent SKIN: Cool and moist, no generalized rash HEENT: [place] conjunctivae, no petechia, no scleral icterus. He is orally intubated NECK: No swelling or adenopathy. LUNGS: Coarse breath sounds bilaterally. [address] HEART: Irregular rate and rhythm ABDOMEN: Bowel sounds present, but diminished; obese, soft. No tenderness EXTREMITIES: Bilateral pitting pedal edema of the lower extremities, bilateral. No clubbing or cyanosis. NEUROLOGIC: Nonfocal. PSYCHIATRIC: Calm and cooperative. LINE: No evidence of infection : Haynes in place with some sediment IMPRESSION: Probable sepsis. Pneumonia gram-negative. Klebsiella - completed treatment - now with PSAE Acute respiratory failure. Extubated and reintubated appears to have aspirated. Leukocytosis: infection, steroids. - worse again - ?stress due to arrhythmia - concern with new PNA gerryce he had fevers History of chronic obstructive pulmonary disease and recent chronic obstructive pulmonary disease exacerbation. New fever and worsening leukocytosis, ?new infection - ?new PNA, ?, has no lines Renal insufficiency, worsening RECOMMENDATIONS: Continue Zyvox and Diflucan to cover for no pneumonia and UTI Continue Levaquin Add cefepime for second PSAE coverage while C/S pending Monitor temps Follow new cultures Monitor progress Weaning per CCM Discussed with Elsie Conrad MD Nov 28, 2017 09:23
[2017-11-28] MEDS ORDERED: CALCIUM GLUCONATE INJ 2 GM in DEXTROSE 5% IN WATER 100ML INJ 100 ML IV ONE ×2 (10:00)
[2017-11-28] MEDS ORDERED: CEFEPIME INJ 2,000 MG in SODIUM CHLORIDE 0.9% INJ 100 ML IV SCH (10:00)
[2017-11-28] MEDS ORDERED: DEXTROSE 50% IN WATER 50 ML VIAL(D50) IV ONE (10:00)
[2017-11-28] MEDS ORDERED: INSULIN HUMAN REGULAR 1,000 UNITS/10 ML VIAL IV PUSH ONE (10:00)
[2017-11-28] MEDS: SODIUM POLYSTYRENE SULFONATE SUSP 15 GM/60 ML CUP PO/NG SCH ×5 (10:25→17:56)
[2017-11-28 10:58] LABS: AMORPHOUS SEDIMENT, URINE FEW; BACTERIA, URINE FEW /hpf; BILIRUBIN, URINE NEG (NEG); BLOOD, URINE MOD (NEG); GLUCOSE,URINE NEG (NEG); HYALINE CAST, URINE 4 /lpf (RARE); KETONE, URINE NEG (NEG); MUCUS URINE FEW /lpf (OCC); NITRITE,URINE NEG (NEG); SQUAMOUS EPITHELIAL CELL URINE 2 /hpf (0-5); URINE LEUKOCYTE ESTERASE LARGE (NEG); WHITE BLOOD CELL CLUMPS FEW
[2017-11-28 10:59] LABS: URINE COLOR YELLOW (YELLW/STRAW)
[2017-11-28 11:20] LABS: CREATININE, RANDOM URINE 112.7 MG/DL
--- NOTE | 2017-11-28 12:32 | EKG ---
Date Performed: 11/27/2017 Time Performed: 10:00:18 PTAGE: 77 years EKG: Atrial fibrillation with PVC(s) Short QT interval Left axis deviation Possible anterior inf arct - age undetermined Lateral ST-T changes may be due to myocardial ischemia Low QRS voltages in li mb leads Abnormal ECG Compared to PREVIOUS TRACING , poor R wave progression is now present, as well as the left axis devia tion. Clinical correlation is recommended. PREVIOUS TRACIN11/16/2017 [id number] DOCTOR: Brendon Wyatt Interpretating Date/Time 11/28/2017 12:30:50
[2017-11-28] MEDS ORDERED: ASP: Documented ESBL, MDR A baumannii or P. aeruginosa PRN (15:15)
[2017-11-28] MEDS ORDERED: PHARMACY INFORMATION XX PRN (15:15)
--- NOTE | 2017-11-28 16:05 | HHI.CCPN ---
Subjective Remarks/Hospital Course This is a 77-year-old male with a medical history significant for COPD, CHF, A. fib, diabetes, that presented to emergency department from [facility] for evaluation of worsening shortness of breath over the last 3 days. The patient was been given Solu-Medrol 125 mg and 2 albuterol treatments enroute to ED. Upon presentation to the ED the patient was on a nonrebreather. He was tachypneic and tachycardic. Patient's medical history significant for MRSA pneumonia previously admitted on 10/27/16 for approximately 12 days at [facility]. The patient is normally on 2.5 L/m nasal cannula O2 home dependency, and he lives with ( normally) a PCO2 in the 80s according to his . Patient was then discharged to [facility], and then transferred to [facility] for rehabilitation. He has been on an unknown antibiotic per the family and steroids for the last 3 days. Laboratory and imaging studies were performed with noted elevation in CO2 The patient was given empiric antibiotics in the ED and placed on BiPAP. Critical care medicine was consulted. Subjective: 11/15: Patient maintained on BiPAP throughout the night O2 saturations 97-98% on FiO2 of 0.40. Hemodynamically stable. Attempts made to wean patient to nasal cannula this a.m. unsuccessful, patient's O2 saturation in the 70s, patient placed back on BiPAP. Chest x-ray pending WBC count significantly diminished, leukocytosis resolved. Patient extremely anxious, Precedex infusion initiated. 11/16: Late entry note. Patient seen 10 AM. Overnight the patient converted to A. fib RVR, despite being on Cardizem 4 times a day and metoprolol twice a day- home medications, the patient received IV Cardizem followed by amiodarone infusion. Per report the patient became hypotensive, Cardizem discontinued. Amiodarone continued. Early this a.m. patient was resting comfortably A. fib rate controlled rate. The patient suddenly converted to A. fib RVR heart rate 150s-160s, acute hypoxemic respiratory failure, requiring intubation. The patient was intubated uneventfully and continues on amiodarone at 0.5 mg/hour, rate now controlled in conjunction with sedation. Cardiology consulted, his stamping mill tender is Dr. Reyes X-ray revealed lung consolidation improved, chest x- ray clear. Plan for CPAP trials in a.m.. 11/17: No acute events overnight. Patient had 1 short 8 beat run of V. tach last evening was self resolution, electrolytes within normal limits. The patient continues on amiodarone 0.5 mg/hr. CPAP trials initiated this a.m.. Tube feeds initiated at trickle feeds. Patient converted to sinus rhythm at 2 AM. 11/18 Patient remains sedated and intubated. Afebrile. 11/19 Patient was extubated yesterday however last night he was noted to choke on water provided by the family. Stat ABG demonstrated acute hypercapnic respiratory failure and was emergently intubated. Currently sedated and intubated. 11/20 Patient remains intubated on Fentanyl drip however he si awake and alert. Afebrile. 11/21 Patient is awake and alert placed on CPAP with PS:15, PEEP:5. Afebrile. 11/22 Patient remains intubated , did not tolerate CPAP trials yesterday as he became tachycardic and hypertensive. On no sedation awake and alert. 11/23 No events overnight, off sedation. 11/24: Resting comfortably on mechanical ventilation currently. Daily C Pap trials ongoing. 11/25: Sedated with Precedex, orally intubated on mechanical ventilation. Daily C Pap trials 11/26: Sedated with Precedex, orally intubated on mechanical ventilation. Got tachypneic with CPAP trial today hence placed back on PRVC. Spiked a fever, garcia cultures ordered. Went into A. fib with RVR subsequently for which being initiated on amiodarone bolus followed by drip and Lopressor 5 mg IV every 6 as needed for 11/27: This morning patient developed bradycardia followed by asystole for which she had 3 minutes CPR with ACLS protocol with return of spontaneous circulation. Post code chest x-ray revealed moderate to large right pneumothorax for which a right pigtail catheter was placed by me however despite airleak patient continue have moderate to large pneumothorax hence a second right sided 28 [place] chest tube was placed to -40 cm water pressure. Air leaks 1+ in both pigtail catheter and chest tube. Patient remains in a flutter currently. Dr. reyes evaluated patient as well following cardiac arrest. 11/28: Sedated, arousable, orally intubated on mechanical ventilation. Worsening renal function noted. MDR Pseudomonas in sputum. Right sided chest tube/ pigtail catheter with 1+ air leak in both. Subcutaneous emphysema noted over right side of face neck and right upper extremity. On 50% FiO2, PEEP +5. Poor urine output for which 500 cc and is bolus given earlier. Treated for hyperkalemia with Kayexalate PO, glucose insulin, calcium IV. Objective Vital Signs Date Time Temp Pulse Resp B/P (MAP) Pulse Ox O2 Delivery O2 Flow Rate FiO2 11/28/17 14:36 96 40 11/28/17 14:00 103 11/28/17 12:00 99.3 31 161/74 (103) Intake and Output 11/28/17 11/28/17 11/28/17 07:59 15:59 23:59 Intake Total 705 ml Output Total 200 ml Balance 505 ml Result Diagram: 11/28/17 0732 11/28/17 0800 Imaging Last Impressions Chest X-Ray 11/21/17 0000 Signed Impressions: Service Date/Time: Tuesday, November 21, 2017 10:03 - CONCLUSION: Left basilar streakiness consistent with atelectasis and/or infiltrate. Hossein Torres MD Objective Remarks GENERAL: Patient is 77 yo intubated SKIN: Warm and dry. HEAD: Normocephalic. EYES: No scleral icterus. No injection or drainage. NECK: Supple, trachea midline. No JVD or lymphadenopathy. CARDIOVASCULAR: S1-S2 irregularly irregular, no gallop or murmur. RESPIRATORY: Orally intubated on mechanical ventilation, air entry decreased over right lung field, scattered rhonchi bilaterally, no wheezing. Right sided chest tube and pigtail catheter with 1+ airleak. Subcutaneous emphysema or right chest wall, neck, right side of face and right upper extremity. GASTROINTESTINAL: Abdomen soft, non-tender, nondistended. MUSCULOSKELETAL: No cyanosis, or edema. Neuro: Awake, orally intubated, on mechanical ventilation, not following commands. A/P Problem List: (1) A-fib ICD Code: I48.91 - Unspecified atrial fibrillation (2) CHF (congestive heart failure) ICD Code: I50.9 - Heart failure, unspecified Status: Chronic (3) HTN (hypertension) ICD Code: I10 - Essential (primary) hypertension Status: Chronic (4) ADRIAN (obstructive sleep apnea) ICD Code: G47.33 - Obstructive sleep apnea (adult) (pediatric) Status: Chronic (5) MRSA pneumonia ICD Code: J15.212 - Pneumonia due to Methicillin resistant Staphylococcus aureus Status: Acute (6) Diabetes mellitus type 2, insulin dependent ICD Code: E11.9 - Type 2 diabetes mellitus without complications; Z79.4 - long term care pharmacist (current) use of insulin Status: Chronic (7) COPD (chronic obstructive pulmonary disease) ICD Code: J44.9 - Chronic obstructive pulmonary disease, unspecified Status: Acute (8) Respiratory distress ICD Code: R06.03 - Acute respiratory distress Status: Acute (9) Leukocytosis ICD Code: D72.829 - Elevated white blood cell count, unspecified Status: Acute (10) Lung consolidation ICD Code: J18.1 - Lobar pneumonia, unspecified organism Status: Acute (11) Anxiety ICD Code: F41.9 - Anxiety disorder, unspecified Status: Chronic Assessment and Plan Plan by systems: Neurologic: Possible Anoxic encephalopathy following cardiac arrest Anxiety disorder Fentanyl for sedation as needed. Follow neuro status. Hold gabapentin 300mmg q HS home med Respiratory: Acute respiratory failure on mechanical ventilation- extubated and reintubated night of 11/18 after he was noted to choke on water provided by family. COPD exacerbation Pneumonia-MRSA Right sided pneumothorax following CPR status post pigtail catheter/chest tube placement 11/27 Obstructive sleep apnea Home O2 dependency Continue with vent support keep sats >92% Bronchodilators, methylprednisolone 40 mg IV daily Pulmonology following- Dr Price, Right sided chest tube/pigtail catheter in place with 1+ air leaks in both. Some improvement in right sided pneumothorax however still present on follow-up chest x-ray. Continue both chest tubes to -40 cm water pressure with underwater seal. Cardiovascular: A. fib RVR Cardiac arrest - asystole, status post CPR 11/27 History of CHF CAD atorvastatin 80 daily at bedtime, metoprolol 50 mg twice a day, Cardizem 60 mg 4 times a day . Eliquis held from 11/27 in view of anticipated procedures. Patient already had 2 chest tubes placed on 11/27 and may need central line and Vas-Cath. Hold amiodarone and beta naomy/ Cardizem for now. Lopressor 5 mg IV every 6 hourly as needed for heart rate greater than 130 Cardiology - Dr. Reyes-discussed with Dr. reyes following cardiac arrest on 11/27 Echo showed EF 65-70% Renal: DAVID Hyperkalemia Monitor renal function, electrolytes replacement per protocol. Given 500 cc normal saline bolus earlier. Urine electrolytes suggest prerenal state. Treated for hyperkalemia with Kayexalate, glucose insulin and calcium. Consulted nephrology and discussed with Dr. Ragland. FEN/GI: Electrolyte derangement GERD Tolerating tube feeds with Jevity 1.5 at goal. Pepcid for GI prophylaxis Heme/ID: Pneumonia MRSA positive-on 10/27 Leukocytosis ID following- Antibiotics per ID (on by mouth Zyvox, IV Levaquin, fluconazole), started on meropenem on 11/28 for MDR Pseudomonas in sputum 11/14 Obtain blood , urine - NGTD 11/16 Obtain sputum cultures- Kleb pneumonia 11/26 sputum cultures growing multidrug resistant Pseudomonas Monitor CBC Garcia cultures repeated on 11/26, results pending. Endocrine: Glucose monitoring per ICU protocol-low dose regimen -- SSI(high scale) Levemir increased from 14u Q12 to 25 units every 12 hourly Prophylaxis: GI Prophylaxis Famotidine BID DVT Prophylaxis -- SCDs Held home dose Eliquis 5 mg BID on 11/27 in view of anticipated procedures. Start heparin 5000 units subcutaneously every 8 hourly for DVT prophylaxis on 11/28. Lines: PIVs Discussed with patient's son regarding current clinical status and plan of care at bedside and he voiced understanding and was agreeable. Explained possible need for tracheostomy and PEG tube placement. Condition critical. Time spent on critical care excluding procedures 45 minutes Problem Qualifiers (1) COPD (chronic obstructive pulmonary disease): Qualified Codes: J44.9 - Chronic obstructive pulmonary disease, unspecified (2) Leukocytosis: Qualified Codes: D72.829 - Elevated white blood cell count, unspecified Lars Flores MD Nov 28, 2017 16:05
[2017-11-28 16:13] LABS: BICARBONATE 26.4 MEQ/L (21.0-32.0); CALCIUM 7.5 MG/DL (8.5-10.1); CREATININE 2.89 MG/DL (0.60-1.30)
--- NOTE | 2017-11-28 17:20 | MB ---
cc: Baldemar Vela MD DATE: 11/28/2017 REASON FOR CONSULTATION: Acute kidney injury with elevated BUN and creatinine. HISTORY OF PRESENT ILLNESS: This is a 77-year-old male with past medical history of ischemic heart disease, atrial fibrillation, congestive heart failure, possibly diastolic dysfunction, diabetes mellitus, chronic obstructive pulmonary disease, was admitted on 11/14 with respiratory distress. I was called to see the patient because of elevated BUN and creatinine. The patient has creatinine of 1.1 on admission,which increased after 2 or 3 to 1.3-1.5 and for the last 2 days, it has been going up and now it is 2.8. The patient was initially diagnosed with pneumonia and was started on antibiotics and then later on, patient developed respiratory failure and was intubated. He was also found to have asystole on 11/27 for 3 minutes and CPR was done with ACLS protocol, and it was shown that he has large right-sided pneumothorax. The blood pressure has been stable and there are no significant hypotensive episodes documented. Most of the history was taken from the patient's chart. PAST MEDICAL HISTORY: 1. Atrial fibrillation. 2. Ischemic heart disease. 3. Congestive heart failure with diastolic dysfunction. 4. Chronic obstructive pulmonary disease with CO2 retention. 5. Diabetes mellitus. PAST SURGICAL HISTORY: Right knee surgery, carpal tunnel surgery, cardiac ablation treatment in 2002. REVIEW OF SYSTEMS: Cannot be taken since the patient is intubated and sedated. SOCIAL HISTORY: The patient is . There is no history of smoking or alcohol. FAMILY HISTORY: Noncontributory. ALLERGIES: HE IS ALLERGIC TO ASPIRIN AND CODEINE. MEDICATIONS: Currently, he is on following medications: Ricarda-Colace 1 tablet b.i.d., Lopressor 50 mg b.i.d., Pepcid 10 mg b.i.d., Solu-Medrol 40 mg IV daily, Diflucan 100 mg once a day, Lipitor 80 mg at bedtime, meropenem 500 mg q. 12 hours, Symbicort inhalation q. 12 hours, linezolid 600 mg q. 12 hours, Levemir 25 units subq q. 12 hours, Kayexalate was given during the afternoon, Cardizem 60 mg q.i.d., insulin as per sliding scale, Levaquin 750 mg q. 48 hours, Zofran as needed. PHYSICAL EXAMINATION: GENERAL: The patient is intubated, sedated. VITAL SIGNS: His last blood pressure is 102/58, temperature is 99.6, oxygen saturation on 40% FIO2 is 98%. HEENT: Pupils are mid, constricted. Nonicteric sclerae. Conjunctivae are pale. NECK: Supple. JVD is slightly elevated. LUNGS: The patient has bilateral decreased air entry with basal rales and scattered wheezing. HEART: S1, S2, irregular rhythm. ABDOMEN: Distended, soft, lax. There is no tenderness. He has an umbilical hernia, which is reducible. EXTREMITIES: He has bilateral 1+ edema. INVESTIGATIONS: WBC count is 19.9, hemoglobin 11.2, platelet count of 416, neutrophils 89.5%. Sodium 147, potassium 5.1, chloride 112, bicarbonate 26.4, BUN 93, creatinine 2.89, calcium 7.5. INR 1.1. Urinalysis showing protein of 100 with rbc of 36, wbc of 116, yeast many. Sputum culture showing pseudomonas and Klebsiella pneumoniae. IMAGING STUDIES: The patient has a chest x-ray done today, which shows that he has a right-sided chest tube with a small right pneumothorax, extensive subcutaneous air. ASSESSMENT AND PLAN: 1. Acute kidney injury. 2. Post-cardiac arrest. 3. Respiratory failure. 4. Pneumonia. 5. Chronic obstructive pulmonary disease. 6. History of congestive heart failure with diastolic dysfunction. 7. Atrial fibrillation. 8. Anemia. The patient has acute kidney injury, most likely related to acute tubular necrosis, either from the infection or related to his cardiac status and cardiac arrest. At present, the patient is nonoliguric. I will get the ultrasound of the kidneys, and I agree with continuing antibiotics and follow the urine output and the BMP and avoid any nephrotoxins. Discussed with the patient's son at the bedside. Thank you for the consultation, and I will follow the patient while he is in the hospital. MD MARGARITA Hodge/TITO , 04:55 PM , 05:19 PM
[2017-11-28] MEDS: MEROPENEM INJ 500 MG in SODIUM CHLORIDE 0.9% INJ 100 ML IV SCH (17:55)
[2017-11-28] MEDS: METOPROLOL TARTRATE 5 MG/5 ML VIAL IV PUSH PRN (18:43)
[2017-11-28 18:45] LABS: SODIUM,RANDOM URINE 15 MEQ/L
[2017-11-28 19:01] LABS: OSMOLALITY,URINE 377 MOSM/KG (300-1300)
[2017-11-28] MEDS ORDERED: PHARMACY ORDERED LAB ONE (19:45)
--- NOTE | 2017-11-28 20:01 | RADRPT ---
EXAM DATE/TIME: 11/28/2017 20:30 [facility] COMPARISON: CHEST SINGLE AP, November 28, 2017, 2:32. INDICATIONS : Increased BUN/Creatinine. MEDICAL HISTORY : Congestive heart failure. Hypertension. Chronic obstructive pulmonary disease. Atrial fibrillation. M RSA. Gastroesophageal reflux disease. BPH. Diabetes. Anxiety. SURGICAL HISTORY : Cardiac ablation. Knee surgery. ENCOUNTER: Initial ACUITY: 1 day PAIN SCORE: Nonresponsive. LOCATION: Bilateral flank MEASUREMENTS: RIGHT KIDNEY: Not visualized cm LEFT KIDNEY: Not visualized cm FINDINGS: The bladder and bilateral kidneys are not seen. CONCLUSION: Nondiagnostic exam. Rashad Bose MD on November 28, 2017 at 19:58 Board Certified Radiologist. This report was verified electronically.
[2017-11-28] MEDS: ATORVASTATIN 80 MG TAB PO SCH (20:31)
[2017-11-28] MEDS: HEPARIN SODIUM - SQ 10,000 UNITS/ML VIAL SQ SCH (20:32)
[2017-11-29] VITALS (18 sets, daily range): BP systolic 82–132; BP diastolic 48–65; PULSE 91–149; RESP 16–33; TEMP 99.2–104.6; O2SAT 95–100
[2017-11-29] MEDS: INSULIN ASPART SUPPLEMENTAL SCALE SQ SCH ×7 (00:08→23:40)
[2017-11-29] MEDS: fentaNYL DRIP 250 ML IV PRN (01:17)
[2017-11-29] MEDS: CHLORHEXIDINE GLUCONATE 2 % 1 PACK (2 CLOTHS) TOP SCH (04:00)
[2017-11-29] MEDS: MEROPENEM INJ 500 MG in SODIUM CHLORIDE 0.9% INJ 100 ML IV SCH ×2 (06:01→17:53)
[2017-11-29 07:17] LABS: ALBUMIN 1.9 GM/DL (3.4-5.0); ALKALINE PHOSPHATASE 214 U/L (45-117); ALT (GPT) 275 U/L (12-78); AST (GOT) 210 U/L (15-37); BICARBONATE 26.4 MEQ/L (21.0-32.0); BLOOD UREA NITROGEN 105 MG/DL (7-18); CALCIUM 7.6 MG/DL (8.5-10.1); CHLORIDE 112 MEQ/L (98-107); CREATININE 3.66 MG/DL (0.60-1.30); GLOMERULAR FILTRATION RATE 16 ML/MIN (>89); GLUCOSE,RANDOM 194 MG/DL (74-106); SODIUM (NA) 151 MEQ/L (136-145); TOTAL BILIRUBIN ADULT 0.3 MG/DL (0.2-1.0); TOTAL PROTEIN 5.1 GM/DL (6.4-8.2)
[2017-11-29] MEDS ORDERED: DIGOXIN 0.5 MG/2 ML VIAL IV PUSH ONE (07:30)
[2017-11-29] MEDS ORDERED: AMIODARONE INJ 150 MG in DEXTROSE 5% IN WATER 100ML INJ 97 ML IV ONE ×2 (08:00)
[2017-11-29] MEDS: DILTIAZEM HCL 60 MG TAB PO SCH ×4 (09:00→21:00)
[2017-11-29] MEDS: BUDESONIDE-FORMOTEROL 160/4.5 MCG INHALER INH SCH ×2 (09:00→20:29)
[2017-11-29] MEDS ORDERED: METOPROLOL TARTRATE 5 MG/5 ML VIAL IV PUSH PRN (09:15)
[2017-11-29] MEDS: AMIODARONE INJ 450 MG in SODIUM CHLOR 0.9% (EXCEL) INJ 250 ML IV PRN ×2 (10:16→18:54)
--- NOTE | 2017-11-29 10:16 | HHI.IDPN ---
Note Infectious Disease Note ID [id number] for 77-year-old, white male who presents to the Emergency Department with shortness of breath. The patient has a history of COPD and CHF. He usually uses CPAP at the assisted living facility. He was noted to have been developing coughing and shortness of breath over the past couple of days, and his states that he was coughing a lot yesterday and bringing up mostly phlegm and that he was restless and could not sleep. Recently treated at [facility] for pneumonia due to methicillin-resistant Staphylococcus aureus. His states that he was still on the oral antibiotic for pneumonia and that he has 2 more days of the medication to complete therapy with Zyvox. Notes reviewed D/W RN Coded over the weekend. Temps better BP ok, not on pressors Urine output 400 cc, K better, Nephrology following for Renal failure. 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 BC negative Sputum with PSAE No central line Has a Haynes PAST MEDICAL HISTORY: COPD, CHF, atrial fibrillation, insulin-dependent diabetes mellitus, hypertension, hyperlipidemia, gastroesophageal reflux, gastroparesis, iron deficiency anemia, oxygen-dependent. PAST SURGICAL HISTORY: Right knee surgery, right carpal tunnel release, cardiac ablation treatment 2002. ALLERGIES: ASPIRIN, CODEINE. Current Medications Medications (Trade) Dose Ordered Sig/Yani Route Start Time Stop Time Status Last Admin (NS Flush) 2 ml UNSCH PRN IV FLUSH 11/14/17 15:45 11/17/17 14:05 (NS Flush) 2 ml BID IV FLUSH 11/14/17 21:00 11/28/17 20:33 (Tylenol) 650 mg Q6H PRN PO 11/14/17 15:45 11/26/17 13:16 (Zofran Inj) 4 mg Q6H PRN IV PUSH 11/14/17 15:45 11/18/17 16:03 Miscellaneous Information 1 Q361D XX 11/14/17 15:45 11/14/17 15:45 (Chlorhexidine 2% Cloth) Taper DAILY@04 TOP 11/15/17 04:00 11/11/18 03:59 11/29/17 04:00 (Chlorhexidine 2% Cloth) 3 pack UNSCH PRN TOP 11/14/17 15:45 (Ricarda-Colace) 1 tab BID PO 11/14/17 21:00 11/28/17 20:31 (Milk Of Magnesia Liq) 30 ml Q12H PRN PO 11/14/17 15:45 (Senokot) 17.2 mg Q12H PRN PO 11/14/17 15:45 (Dulcolax Supp) 10 mg DAILY PRN RECTAL 11/14/17 15:45 (Lactulose Liq) 30 ml DAILY PRN PO 11/14/17 15:45 (Eliquis) 5 mg BID PO 11/14/17 21:00 Future Hold 11/27/17 20:17 (Lipitor) 80 mg HS PO 11/14/17 21:00 11/28/17 20:31 (Lanoxin) 0.125 mg DAILY PO 11/15/17 09:00 Future Hold 11/17/17 08:24 (Cardizem) 60 mg QID PO 11/14/17 18:00 11/28/17 20:31 (Lopressor) 50 mg BID PO 11/14/17 21:00 11/28/17 20:34 Patient Own Medication PT OWN MED: Mometas... HS INH 11/14/17 21:00 Future Hold (Apresoline Inj) 20 mg Q4H PRN IV PUSH 11/17/17 12:00 11/22/17 07:38 (SoluMEDROL INJ) 40 mg DAILY IV PUSH 11/19/17 09:00 11/28/17 07:52 (Symbicort 160-4.5 Mcg Inh) 2 puff Q12HR INH 11/18/17 21:00 11/28/17 20:33 (Peridex 0.12% Liq) 15 ml BID@08,20 MT 11/19/17 08:00 11/28/17 20:35 (Duoneb Neb) 1 ampule Q2HR NEB PRN INH 11/18/17 22:30 11/26/17 03:13 (Pepcid) 10 mg BID PO 11/22/17 21:00 11/28/17 20:31 Dexmedetomidine HCl 1000 mcg/ Sodium Chloride 250 ml @ 5.05 mls/hr TITRATE PRN IV 11/23/17 22:45 11/26/17 20:30 (Levemir Inj) 25 units Q12HR SQ 11/26/17 21:00 11/28/17 20:32 (NovoLOG SUPPLEMENTAL SCALE) 1 Q4HR SQ 11/26/17 16:00 11/29/17 06:05 (D50w (Vial) Inj) 25 ml UNSCH PRN IV 11/26/17 15:30 (Glucagon Inj) 1 mg UNSCH PRN IM/SQ 11/26/17 15:30 (Levaquin) 750 mg Q48H PO 11/27/17 09:30 11/27/17 14:16 (Zyvox) 600 mg Q12HR PO 11/27/17 09:30 11/28/17 20:31 (Diflucan) 100 mg DAILY PO 11/27/17 09:30 11/28/17 08:03 Fentanyl Citrate 250 ml @ 5 mls/hr TITRATE PRN IV 11/27/17 13:45 11/29/17 01:17 (ASP Crit: Doc ESBL, MDR A baumannii or P aer) 1 UNSCH X1 PRN .XX 11/28/17 15:15 11/29/17 15:14 ([facility] Information) 1 UNSCH X1 PRN XX 11/28/17 15:15 11/29/17 15:14 Meropenem 500 mg/ Sodium Chloride 100 ml @ 200 mls/hr Q12H IV 11/28/17 17:00 11/29/17 06:01 (Heparin Inj) 5,000 units Q12HR SQ 11/28/17 21:00 11/28/17 20:32 (Lopressor Inj) 5 mg Q6H PRN IV PUSH 11/29/17 09:15 Amiodarone HCl 450 mg/Sodium Chloride 259 ml @ 33.33 mls/ hr Q7H47M PRN IV 11/29/17 07:39 OBJECTIVE: Vital Signs Date Time Temp Pulse Resp B/P (MAP) Pulse Ox O2 Delivery O2 Flow Rate FiO2 11/29/17 08:40 127 117/70 11/29/17 08:16 95 40 11/29/17 06:00 128 11/29/17 04:00 99.2 125 24 94/54 (67) 96 11/29/17 04:00 95 40 11/29/17 04:00 135 11/29/17 04:00 40 11/29/17 02:00 124 4/2/18 01:00 138 24 105/64 (78) 96 11/29/17 00:40 96 40 11/29/17 00:00 40 11/29/17 00:00 149 24 115/65 (82) 97 11/29/17 00:00 120 11/28/17 22:00 122 11/28/17 21:00 136 25 157/67 (97) 96 11/28/17 20:00 135 30 133/66 (88) 97 11/28/17 20:00 40 11/28/17 20:00 134 11/28/17 19:50 96 40 11/28/17 19:15 99.0 137 24 109/66 (80) 96 11/28/17 18:00 101 11/28/17 18:00 115 11/28/17 16:00 101 11/28/17 16:00 99.6 101 21 102/58 (73) 98 11/28/17 16:00 40 11/28/17 14:36 96 40 11/28/17 14:00 103 11/28/17 12:00 107 11/28/17 12:00 40 11/28/17 12:00 99.3 107 31 161/74 (103) 99 11/28/17 11:54 95 40 11/28/17 11:45 102 26 155/80 (105) 95 11/28/17 11:30 110 25 181/84 (116) 95 11/28/17 11:15 103 24 138/65 (89) 95 11/28/17 11:00 103 23 142/63 (89) 95 11/28/17 10:45 98 22 140/66 (90) 95 11/28/17 10:30 97 19 148/68 (94) 95 11/28/17 10:15 100 25 150/67 (94) 95 Laboratory Tests Laboratory Tests Test 11/26/17 10:49 11/27/17 10:00 11/27/17 13:15 11/28/17 07:32 White Blood Count 20.9 TH/MM3 23.9 TH/MM3 19.9 TH/MM3 Red Blood Count 4.43 MIL/MM3 4.62 MIL/MM3 4.36 MIL/MM3 Hemoglobin 11.6 GM/DL 12.1 GM/DL 11.2 GM/DL Hematocrit 38.2 % 40.5 % 37.0 % Mean Corpuscular Volume 86.1 FL 87.8 FL 84.8 FL Mean Corpuscular Hemoglobin 26.2 PG 26.2 PG 25.6 PG Mean Corpuscular Hemoglobin Concent 30.5 % 29.8 % 30.2 % Red Cell Distribution Width 18.8 % 18.6 % 18.9 % Platelet Count 347 TH/MM3 474 TH/MM3 460 TH/MM3 Mean Platelet Volume 9.8 FL 9.9 FL 9.9 FL Blood Urea Nitrogen 76 MG/DL 66 MG/DL Creatinine 1.66 MG/DL 1.70 MG/DL Random Glucose 363 MG/DL 255 MG/DL Total Protein 6.0 GM/DL 6.3 GM/DL Albumin 2.6 GM/DL 2.5 GM/DL Calcium Level 8.1 MG/DL 8.0 MG/DL Phosphorus Level 3.5 MG/DL 4.2 MG/DL Alkaline Phosphatase 142 U/L 144 U/L Aspartate Amino Transf (AST/SGOT) 21 U/L 33 U/L Alanine Aminotransferase (ALT/SGPT) 43 U/L 54 U/L Total Bilirubin 0.4 MG/DL 0.4 MG/DL Sodium Level 149 MEQ/L 148 MEQ/L Potassium Level 4.3 MEQ/L 4.8 MEQ/L Chloride Level 110 MEQ/L 111 MEQ/L Carbon Dioxide Level 30.3 MEQ/L 28.0 MEQ/L Anion Gap 9 MEQ/L 9 MEQ/L Estimat Glomerular Filtration Rate 40 ML/MIN 39 ML/MIN Neutrophils (%) (Auto) 77.8 % 89.5 % Lymphocytes (%) (Auto) 15.8 % 3.9 % Monocytes (%) (Auto) 6.1 % 6.1 % Eosinophils (%) (Auto) 0.1 % 0.0 % Basophils (%) (Auto) 0.2 % 0.5 % Neutrophils # (Auto) 18.6 TH/MM3 17.8 TH/MM3 Lymphocytes # (Auto) 3.8 TH/MM3 0.8 TH/MM3 Monocytes # (Auto) 1.5 TH/MM3 1.2 TH/MM3 Eosinophils # (Auto) 0.0 TH/MM3 0.0 TH/MM3 Basophils # (Auto) 0.0 TH/MM3 0.1 TH/MM3 CBC Comment DIFF FINAL DIFF FINAL Differential Comment Magnesium Level 2.8 MG/DL Total Creatine Kinase 145 U/L Creatine Kinase MB 2.7 NG/ML Troponin I 0.45 NG/ML Blood Gas Puncture Site RT RADIAL Blood Gas Patient Temperature 98.6 Blood Gas HCO3 28 mmol/L Blood Gas Base Excess 0.6 mmol/L Blood Gas Oxygen Saturation 97 % Arterial Blood pH 7.22 Arterial Blood Partial Pressure CO2 70 mmHg Arterial Blood Partial Pressure O2 214 mmHg Arterial Blood Oxygen Content 17.2 Vol % Arterial Blood Carboxyhemoglobin 0.6 % Arterial Blood Methemoglobin 1.2 % Blood Gas Hemoglobin 12.3 G/DL Oxygen Delivery Device VENTILATOR Blood Gas Ventilator Setting Test 11/28/17 08:00 11/28/17 10:00 11/28/17 14:58 11/28/17 17:55 Blood Urea Nitrogen 90 MG/DL 93 MG/DL Creatinine 2.82 MG/DL 2.89 MG/DL Random Glucose 246 MG/DL 256 MG/DL Total Protein 5.4 GM/DL Albumin 2.1 GM/DL Calcium Level 7.7 MG/DL 7.5 MG/DL Alkaline Phosphatase 173 U/L Aspartate Amino Transf (AST/SGOT) 154 U/L Alanine Aminotransferase (ALT/SGPT) 173 U/L Total Bilirubin 0.3 MG/DL Sodium Level 147 MEQ/L 147 MEQ/L Potassium Level 5.7 MEQ/L 5.1 MEQ/L Chloride Level 112 MEQ/L 112 MEQ/L Carbon Dioxide Level 24.9 MEQ/L 26.4 MEQ/L Anion Gap 10 MEQ/L 9 MEQ/L Estimat Glomerular Filtration Rate 22 ML/MIN 21 ML/MIN Urine Color YELLOW Urine Turbidity CLOUDY Urine pH 5.0 Urine Specific [place] 1.023 Urine Protein 100 mg/dL Urine Glucose (UA) NEG mg/dL Urine Ketones NEG mg/dL Urine Occult Blood MOD Urine Nitrite NEG Urine Bilirubin NEG Urine Urobilinogen LESS THAN 2.0 MG/DL Urine Leukocyte Esterase LARGE Urine RBC 36 /hpf Urine WBC 116 /hpf Urine WBC Clumps FEW Urine Squamous Epithelial Cells 2 /hpf Urine Amorphous Sediment FEW Urine Bacteria FEW /hpf Urine Hyaline Casts 4 /lpf Urine Mucus FEW /lpf Urine Yeast (Budding) MANY Microscopic Urinalysis Comment CATH-CULTURE IND Urine Random Creatinine 112.7 MG/DL Urine Random Sodium 15 MEQ/L 15 MEQ/L Urine Eosinophils NONE SEEN /HPF Urine Osmolality 377 MOSM/KG Test 11/29/17 05:40 Blood Urea Nitrogen 105 MG/DL Creatinine 3.66 MG/DL Random Glucose 194 MG/DL Total Protein 5.1 GM/DL Albumin 1.9 GM/DL Calcium Level 7.6 MG/DL Alkaline Phosphatase 214 U/L Aspartate Amino Transf (AST/SGOT) 210 U/L Alanine Aminotransferase (ALT/SGPT) 275 U/L Total Bilirubin 0.3 MG/DL Sodium Level 151 MEQ/L Potassium Level 3.8 MEQ/L Chloride Level 112 MEQ/L Carbon Dioxide Level 26.4 MEQ/L Anion Gap 13 MEQ/L Estimat Glomerular Filtration Rate 16 ML/MIN Microbiology Date/Time Source Procedure Growth Status 11/26/17 17:58 Blood Peripheral Aerobic Blood Culture - Preliminary NO GROWTH IN 2 DAYS Resulted 11/26/17 17:58 Blood Peripheral Anaerobic Blood Culture - Preliminary NO GROWTH IN 2 DAYS Resulted 11/26/17 14:05 Sputum Endotracheal Gram Stain - Final Resulted 11/26/17 14:05 Sputum Culture - Preliminary Pseudomonas Aeruginosa Multi-Drug Resistant Resulted 11/28/17 10:00 Urine Catheterized Urine Urine Culture Pending Received Date/Time Source Procedure Growth Status 11/26/17 17:58 Blood Peripheral Aerobic Blood Culture - Preliminary NO GROWTH IN 1 DAY Resulted 11/26/17 17:58 Blood Peripheral Anaerobic Blood Culture - Preliminary NO GROWTH IN 1 DAY Resulted 11/26/17 17:53 Blood Peripheral Aerobic Blood Culture - Preliminary NO GROWTH IN 1 DAY Resulted 11/26/17 17:53 Blood Peripheral Anaerobic Blood Culture - Preliminary NO GROWTH IN 1 DAY Resulted 11/26/17 14:05 Sputum Endotracheal Gram Stain - Final Resulted 11/26/17 14:05 Sputum Culture - Preliminary Pseudomonas Aeruginosa Resulted IMAGING Last Impressions Renal Ultrasound 11/28/17 0000 Signed Impressions: Service Date/Time: Tuesday, November 28, 2017 20:30 - CONCLUSION: Nondiagnostic exam. Rashad Bose MD Chest X-Ray 11/28/17 0000 Signed Impressions: Service Date/Time: Tuesday, November 28, 2017 02:32 - CONCLUSION: 1. 2 right- sided chest tubes with small right pneumothorax. Extensive subcutaneous air. Mild basilar airspace disease. Tera Gibson MD Chest X-Ray 11/28/17 0000 Signed Impressions: Service Date/Time: Tuesday, November 28, 2017 02:32 - CONCLUSION: 1. 2 right- sided chest tubes with small right pneumothorax. Extensive subcutaneous air. Mild basilar airspace disease. Tera Gibson MD Chest X-Ray 11/27/17 1745 Signed Impressions: Service Date/Time: Monday, November 27, 2017 17:44 - CONCLUSION: Slight decrease in pneumothorax size. Rashad Bose MD Chest X-Ray 11/27/17 0600 Signed Impressions: Service Date/Time: Monday, November 27, 2017 04:44 - CONCLUSION: Consolidation left lung base is stable. No pneumothorax. Tubes and catheters in good position. Santy Roblero MD Chest X-Ray 11/27/17 0000 Signed Impressions: Service Date/Time: Monday, November 27, 2017 12:22 - CONCLUSION: Interval placement of large bore right-sided chest tube with mild decrease in the size of the right pneumothorax. At least a moderate pneumothorax remains. Liang Jimenez MD Chest X-Ray 11/27/17 0000 Signed Impressions: Service Date/Time: Monday, November 27, 2017 11:21 - CONCLUSION: Interval placement of small bore right-sided chest tube with no definite significant change in the right sided pneumothorax. Liang Jimenez MD Chest X-Ray 11/27/17 0000 Signed Impressions: Service Date/Time: Monday, November 27, 2017 10:06 - CONCLUSION: 1. New moderate to large right pneumothorax with mild mediastinal shift to the left indicating apparent tension. 2. The patient remains intubated. These findings were called to Dr. Ennis at 1040 hrs. Liang Jimenez MD PHYSICAL EXAMINATION: GENERAL: Awake, following commands, on the vent SKIN: Cool and moist, no generalized rash HEENT: [place] conjunctivae, no petechia, no scleral icterus. He is orally intubated NECK: No swelling or adenopathy. LUNGS: Coarse breath sounds bilaterally. [address] HEART: Irregular rate and rhythm ABDOMEN: Bowel sounds present, but diminished; obese, soft. No tenderness EXTREMITIES: Bilateral pitting pedal edema of the lower extremities, bilateral. No clubbing or cyanosis. NEUROLOGIC: Nonfocal. PSYCHIATRIC: Calm and cooperative. LINE: No evidence of infection : Haynes in place with some sediment IMPRESSION: Probable sepsis. Pneumonia gram-negative. Pseudomonas MDR. Right side Pneumothorax with subq emphysema. Acute respiratory failure. Extubated and reintubated appears to have aspirated. Leukocytosis: infection, steroids. Acute COPD exacerbation. Renal insufficiency, worsening RECOMMENDATIONS: Continue Meropenem IV Continue Zyvox and Diflucan to cover for no pneumonia and UTI Continue Micafungin IV for now. Continue Levaquin Monitor temps Follow new cultures Monitor progress Weaning per [facility] dw Discussed with Pam Oquendo MD Nov 29, 2017 10:16
[2017-11-29] MEDS: METOPROLOL TARTRATE 50 MG TAB PO SCH ×2 (10:54→20:28)
[2017-11-29] MEDS: FAMOTIDINE 20 MG TAB PO SCH ×2 (10:55→23:25)
[2017-11-29] MEDS: LINEZOLID 600 MG TAB PO SCH ×2 (10:55→23:41)
[2017-11-29] MEDS: LEVOFLOXACIN 750 MG TAB PO SCH (10:55)
[2017-11-29] MEDS: DOCUSATE SODIUM 50 MG/SENNA 8.6 MG TAB PO SCH ×2 (10:55→20:49)
[2017-11-29] MEDS: FLUCONAZOLE 100 MG TAB PO SCH (10:55)
[2017-11-29] MEDS: methylPREDNISolone SOD SUCC 40 MG/1 ML VIAL IV PUSH SCH (10:56)
[2017-11-29] MEDS: INSULIN DETEMIR 100 UNITS/ML VIAL SQ SCH ×2 (10:56→23:41)
[2017-11-29] MEDS: HEPARIN SODIUM - SQ 10,000 UNITS/ML VIAL SQ SCH ×2 (10:56→23:40)
[2017-11-29] MEDS: SODIUM CHLORIDE 0.9% FLUSH 10 ML FLUSH IV FLUSH SCH ×2 (10:57→20:49)
[2017-11-29] MEDS: CHLORHEXIDINE 0.12% (ORAL KIT) 15 ML CUP MT SCH ×2 (10:58→23:41)
[2017-11-29] MEDS: ACETAMINOPHEN 325 MG TAB PO PRN (11:01)
--- NOTE | 2017-11-29 11:01 | RADRPT ---
EXAM DATE/TIME: 11/29/2017 09:58 [place] COMPARISON: CHEST SINGLE AP, November 28, 2017, 2:32. INDICATIONS : Central line placement. MEDICAL HISTORY : Hypertension. Chronic obstructive pulmonary disease. Diabetes mellitus type II. Congestive heart failure. A-fib. SURGICAL HISTORY : None. ENCOUNTER: Subsequent ACUITY: 2 weeks PAIN SCORE: Non-responsive. LOCATION: Bilateral chest FINDINGS: A single view of the chest demonstrates a right-sided surgical thoracostomy tubes the side-port just barely in the pleural space. This appears to be backed out slightly when compared to the prior. How er, the more cephalad, [place] loop thoracostomy tube is now completely backed out of the pleural space and is situated in the deep tissues of the upper right hemithorax. Stable right sided pneumothorax me asuring approximately 1.3 cm in depth. Stable bibasilar airspace disease with possible small associat ed effusions. Extensive bilateral deep tissue and subcutaneous emphysematous changes. Endotracheal and nasogastric tubes are grossly stable. Interval placement of a left IJ central venous catheter with tip projecting over the central venous system. No left-sided pneumothorax CONCLUSION: 1. More cephalad, [place] loop thoracostomy tube is now back out of the pleural space and position in th e deep tissues of the upper right hemithorax. The lower, surgical thoracostomy tube has backed out sl ightly with the side port just on the inside of the chest wall in the pleural space. 2. Stable right-sided pneumothorax measuring 1.3 cm in depth. 3. Stable, extensive deep tissue and subcutaneous emphysematous changes. Stable bibasilar airspace di sease. 4. Interval placement of a left IJ central venous catheter with tip projecting over the central venou s system. No left-sided pneumothorax. 5. Otherwise, endotracheal and nasogastric tubes are grossly stable in position. Omid Traore MD on November 29, 2017 at 10:52 Board Certified Radiologist. This report was verified electronically.
[2017-11-29] MEDS ORDERED: ACETAMINOPHEN 1000 MG/100 ML 100 ML IV STA (14:06)
[2017-11-29 17:03] LABS: AUTOMATED NEUTROPHIL # 20.2 TH/MM3 (1.8-7.7); BASOPHIL % 0.1 % (0.0-2.0); HEMATOCRIT 35.6 % (39.0-51.0); HEMOGLOBIN 11.1 GM/DL (13.0-17.0); LYMPH % 2.2 % (9.0-44.0); LYMPHOCYTE # 0.5 TH/MM3 (1.0-4.8); MEAN CELL VOLUME 84.3 FL (80.0-100.0); MEAN CORPUSCULAR HEMOGLOBIN 26.1 PG (27.0-34.0); MEAN PLATELET VOLUME 10.2 FL (7.0-11.0); MONO % 3.4 % (0.0-8.0); MONOCYTE # 0.7 TH/MM3 (0-0.9); NEUT % 94.3 % (16.0-70.0); PLATELET COUNT 459 TH/MM3 (150-450); RED BLOOD COUNT 4.23 MIL/MM3 (4.50-5.90); WHITE BLOOD COUNT 21.4 TH/MM3 (4.0-11.0)
--- NOTE | 2017-11-29 17:05 | PD.CONS ---
Consult Service Palliative Care Consult Requested By Dr. Vance Flores Primary Care Physician Brijesh Hernandez Jr, MD Reason for Consultation a. To assist with evaluation and management of symptoms including: Dyspnea, pain b. To assist medical decision maker(s) with: better understanding of current medical conditions; weighing benefits/burdens of medical treatment options; making medical treatment decisions. (Linda Gilbert) HPI History of Present Illness This is a 77-year-old male with a history of COPD on home O2 and a trilogy ventilator, chronic hypercapnia, atrial flutter, atrial fibrillation, diabetes mellitus type 2, obesity, heart failure with preserved ejection fraction who presented to the emergency department 11/14 from the [facility] where he resides for worsening dyspnea for the prior 3 days. He was found to be tachypneic and tachycardic, on a nonrebreather mask and had already received 2 albuterol treatments and Solu-Medrol 125 mg. He was also seen in the emergency department 11/06 for similar symptoms of dyspnea and disorientation with hypoxia, oxygen saturations of 67% on initial evaluation. He was also previously seen at [facility] for MRSA pneumonia on 10/27/16 where he remained for 12 [address] being discharged [facility] and then transferred to [facility] for rehabilitation. Per prior records, the patient is reported to be on 2-1/2 L of oxygen via nasal cannula at home and his baseline PCO2 is in the 80s. He was placed on BiPAP on admission and critical care medicine consulted for management. ED course: * Laboratory: Presenting blood gas showed pH 7.33, PCO2 83, PaO2 55, HCO3 43, base excess +16.5, oxygen saturation 87% on 100% nonrebreather mask. WBC 18.9, hemoglobin 11.2, hematocrit 35.5, 165, sodium 140, potassium 4.6, BUN 29, creatinine 1.14, random glucose 108, troponin 0 0.10. * Radiology: Chest x-ray shows resolved atelectasis versus airspace consolidation involving the left lower lobe on presentation. On 11/27 patient developed significant bradycardia and then asystole for which he underwent 3 minutes of CPR with ACLS protocol with subsequent ROSC. Postcode chest x-ray showed a moderate to large right pneumothorax for which a right pigtail catheter was placed showing an air leak. Post chest tube insertion he continued to have a large to moderate pneumothorax and a second right-sided 28 Thai chest tube was placed to -40 cm of water pressure. 1+ air leaks were shown in both chest tubes. Sputum cultures showing Klebsiella pneumoniae on 11/15, subsequent sputum specimen on 11/26 shows pseudomonas aeruginosa, multidrug resistant and MRSA. Chest x-ray this morning showed dislodgment of the thoracostomy tube which was repositioned. Follow-up chest x- ray pending. . Function/Cognitive Trajectory He has been hospitalized multiple times so far this year. He is generally sedentary and requires assistance with all ADLs. His is his caregiver. Per my discussion with the family, patient would be content to continue a sedentary lifestyle as adequate quality of life. . (Linda Gilbert) Review of Systems Constitutional: COMPLAINS OF: Generalized weakness Respiratory: COMPLAINS OF: Shortness of breath Musculoskeletal: COMPLAINS OF: Muscle aches (Linda Gilbert) Past Family Social History Coded Allergies: aspirin (Unverified Allergy, Severe, 11/14/17) codeine (Verified Allergy, Severe, 11/14/17) Past Medical History Atrial fibrillation/atrial flutter Anxiety Congestive heart failure with preserved ejection fraction Hypertension COPD on home O2 and trilogy vent Diabetes type 2 GERD Obstructive sleep apnea on BiPAP at night Right carpal tunnel syndrome Depression/anxiety MRSA pneumonia Iron deficiency anemia Hyperlipidemia Gastroparesis . Past Surgical History Right carpal tunnel release Hydrocele repair Right knee surgery Cardiac ablation 2002 . Reported Medications Reported Meds & Active Scripts Active Prednisone 10 Mg Tab 10 Mg PO DIRECTED 30 Days 30mg po bid x 3 days, 20mg po bid x 4 days then 20mg po daily Novolog Inj (Insulin Aspart) 100 Unit/Ml Inj 1-12 Units SQ ACHS SLIDING SCALE 30 Days Linezolid 600 Mg Tab 600 Mg PO Q12H 7 Days Reported Lopressor (Metoprolol Tartrate) 50 Mg Tab 50 Mg PO BID Duoneb (Ipratropium-Albuterol Neb) 0.5-2.5 Mg/3 Ml Neb 3 Ml NEB TID Tylenol (Acetaminophen) 325 Mg Tab 650 Mg PO Q4H PRN Combivent Respimat Inh (Ipratropium-Albuterol Inh) 20-100 Snf/Act Aero 1 Puff INH QID Thera-M (Multiple Vitamins W/ Minerals) 1 Tab 1 Tab PO DAILY Diltiazem (Diltiazem HCl) 60 Mg Tab 60 Mg PO QID Potassium Chloride ER (Potassium Chloride) 10 Meq Cap 10 Meq PO BID Bumetanide 2 Mg Tab 2 Mg PO BID Eliquis (Apixaban) 5 Mg Tab 5 Mg PO BID Lactulose Liq (Lactulose) 10 Gm/15 Ml Soln 15 Ml PO BID PRN Colace (Docusate Sodium) 100 Mg Capsule 100 Mg PO BID Lantus Inj (Insulin Glargine) 1,000 Unit/10 Ml Vial 60 Units SQ HS Asmanex 120 Act Twisthaler (Mometasone 120 Act Inh) 220 Mcg/Act Inh 1 Puff INH HS Gabapentin 300 Mg Cap 300 Mg PO HS Atorvastatin (Atorvastatin Calcium) 80 Mg Tab 80 Mg PO HS Miralax Powder (Polyethylene Glycol 3350 Powder) 17 Gm Powd 17 Gm PO DAILY Mix and dissolve one measuring capful (17 grams) in water or juice. Stiolto Respimat Inh (Tiotropium-Olodaterol Inh) 2.5-2.5 Mcg/Act Aero 2 Puff INH DAILY Digoxin 0.125 Mg Tab 0.125 Mg PO DAILY Alfuzosin ER 24 HR 10 Mg Tab 10 Mg PO DAILY Omeprazole 20 Mg Tab 20 Mg PO DAILY . Current Medications Medications (Trade) Dose Ordered Sig/Yani Route Start Time Stop Time Status Last Admin (NS Flush) 2 ml UNSCH PRN IV FLUSH 11/14/17 15:45 11/17/17 14:05 (NS Flush) 2 ml BID IV FLUSH 11/14/17 21:00 11/29/17 10:57 (Tylenol) 650 mg Q6H PRN PO 11/14/17 15:45 11/29/17 11:01 (Zofran Inj) 4 mg Q6H PRN IV PUSH 11/14/17 15:45 11/18/17 16:03 Miscellaneous Information 1 Q361D XX 11/14/17 15:45 11/14/17 15:45 (Chlorhexidine 2% Cloth) Taper DAILY@04 TOP 11/15/17 04:00 11/11/18 03:59 11/29/17 04:00 (Chlorhexidine 2% Cloth) 3 pack UNSCH PRN TOP 11/14/17 15:45 (Ricarda-Colace) 1 tab BID PO 11/14/17 21:00 11/29/17 10:55 (Milk Of Magnesia Liq) 30 ml Q12H PRN PO 11/14/17 15:45 (Senokot) 17.2 mg Q12H PRN PO 11/14/17 15:45 (Dulcolax Supp) 10 mg DAILY PRN RECTAL 11/14/17 15:45 (Lactulose Liq) 30 ml DAILY PRN PO 11/14/17 15:45 (Eliquis) 5 mg BID PO 11/14/17 21:00 Future Hold 11/27/17 20:17 (Lipitor) 80 mg HS PO 11/14/17 21:00 11/28/17 20:31 (Lanoxin) 0.125 mg DAILY PO 11/15/17 09:00 Future Hold 11/17/17 08:24 (Cardizem) 60 mg QID PO 11/14/17 18:00 11/29/17 13:30 (Lopressor) 50 mg BID PO 11/14/17 21:00 11/29/17 10:54 Patient Own Medication PT OWN MED: Mometas... HS INH 11/14/17 21:00 Future Hold (Apresoline Inj) 20 mg Q4H PRN IV PUSH 11/17/17 12:00 11/22/17 07:38 (SoluMEDROL INJ) 40 mg DAILY IV PUSH 11/19/17 09:00 11/29/17 10:56 (Symbicort 160-4.5 Mcg Inh) 2 puff Q12HR INH 11/18/17 21:00 11/28/17 20:33 (Peridex 0.12% Liq) 15 ml BID@08,20 MT 11/19/17 08:00 11/29/17 10:58 (Duoneb Neb) 1 ampule Q2HR NEB PRN INH 11/18/17 22:30 11/26/17 03:13 (Pepcid) 10 mg BID PO 11/22/17 21:00 11/29/17 10:55 Dexmedetomidine HCl 1000 mcg/ Sodium Chloride 250 ml @ 5.05 mls/hr TITRATE PRN IV 11/23/17 22:45 11/26/17 20:30 (Levemir Inj) 25 units Q12HR SQ 11/26/17 21:00 11/29/17 10:56 (NovoLOG SUPPLEMENTAL SCALE) 1 Q4HR SQ 11/26/17 16:00 11/29/17 10:58 (D50w (Vial) Inj) 25 ml UNSCH PRN IV 11/26/17 15:30 (Glucagon Inj) 1 mg UNSCH PRN IM/SQ 11/26/17 15:30 (Levaquin) 750 mg Q48H PO 11/27/17 09:30 11/29/17 10:55 (Zyvox) 600 mg Q12HR PO 11/27/17 09:30 11/29/17 10:55 (Diflucan) 100 mg DAILY PO 11/27/17 09:30 11/29/17 10:55 Fentanyl Citrate 250 ml @ 5 mls/hr TITRATE PRN IV 11/27/17 13:45 11/29/17 01:17 Meropenem 500 mg/ Sodium Chloride 100 ml @ 200 mls/hr Q12H IV 11/28/17 17:00 11/29/17 06:01 (Heparin Inj) 5,000 units Q12HR SQ 11/28/17 21:00 11/29/17 10:56 (Lopressor Inj) 5 mg Q6H PRN IV PUSH 11/29/17 09:15 Amiodarone HCl 450 mg/Sodium Chloride 259 ml @ 33.33 mls/ hr Q7H47M PRN IV 11/29/17 07:39 11/29/17 10:16 . Substance Use Tobacco: Smokes 3 packs per day for 40 years quit 1998. Alcohol: Moderate alcohol use. Prescription med abuse: No history. Illicits: No history. . Psychosocial History He was born in [place] and moved to [place] many years ago. 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 . Spiritual/Cultural Factors [employer] pool. . (Linda Gilbert) Physical Exam Vital Signs Date Time Temp Pulse Resp B/P (MAP) Pulse Ox O2 Delivery O2 Flow Rate FiO2 11/29/17 14:00 95 11/29/17 12:01 96 40 11/29/17 12:00 93 11/29/17 12:00 103.4 93 24 111/61 (78) 96 11/29/17 10:16 110 117/68 11/29/17 10:00 112 11/29/17 08:40 127 117/70 11/29/17 08:16 95 40 11/29/17 08:00 123 11/29/17 08:00 102.2 123 16 132/65 (87) 96 11/29/17 06:00 128 11/29/17 04:00 99.2 125 24 94/54 (67) 96 11/29/17 04:00 95 40 11/29/17 04:00 135 11/29/17 04:00 40 11/29/17 02:00 124 11/29/17 01:00 138 24 105/64 (78) 96 11/29/17 00:40 96 40 11/29/17 00:00 40 11/29/17 00:00 149 24 115/65 (82) 97 11/29/17 00:00 120 11/28/17 22:00 122 11/28/17 21:00 136 25 157/67 (97) 96 11/28/17 20:00 135 30 133/66 (88) 97 11/28/17 20:00 40 11/28/17 20:00 134 11/28/17 19:50 96 40 11/28/17 19:15 99.0 137 24 109/66 (80) 96 11/28/17 18:00 101 11/28/17 18:00 115 Exam CONSTITUTIONAL/GENERAL: This is an adequately nourished patient, in no apparent distress. TUBES/LINES/DRAINS: PIV's, ETT, left subclavian SKIN: No jaundice, rashes, or lesions. Ecchymoses on upper extremities. No wounds seen anteriorly. Skin temperature appropriate. Not diaphoretic. HEAD: Atraumatic. Normocephalic. EYES: Pupils equal and round and reactive. No scleral icterus. No injection or drainage. Fundi not examined. ENT: Nose without bleeding or purulent drainage. NECK: Trachea midline. Supple. No palpable thyroid enlargement or nodularity. CARDIOVASCULAR: Irregular rhythm, controlled rate, no rub murmur or gallop. No JVD. RESPIRATORY/CHEST: Symmetric, unlabored respirations. Diminished, rare wheeze. Extensive crepitus. GASTROINTESTINAL: Abdomen soft, nondistended. No hepato-splenomegaly, or palpable masses. Bowel sounds present. GENITOURINARY: Without palpable bladder distension. Haynes catheter in place. MUSCULOSKELETAL: Extremities without clubbing or cyanosis. 3+ dependent edema. LYMPHATICS: No palpable cervical or supraclavicular adenopathy. NEUROLOGICAL: Intubated, sedated. PSYCHIATRIC: Sedated . (Linda Gilbert) Diagnostic Tests Laboratory Laboratory Tests Test 11/27/17 10:00 11/27/17 13:15 11/28/17 07:32 11/28/17 08:00 White Blood Count 23.9 TH/MM3 (4.0-11.0) 19.9 TH/MM3 (4.0-11.0) Red Blood Count 4.62 MIL/MM3 (4.50-5.90) 4.36 MIL/MM3 (4.50-5.90) Hemoglobin 12.1 GM/DL (13.0-17.0) 11.2 GM/DL (13.0-17.0) Hematocrit 40.5 % (39.0-51.0) 37.0 % (39.0-51.0) Mean Corpuscular Volume 87.8 FL (80.0-100.0) 84.8 FL (80.0-100.0) Mean Corpuscular Hemoglobin 26.2 PG (27.0-34.0) 25.6 PG (27.0-34.0) Mean Corpuscular Hemoglobin Concent 29.8 % (32.0-36.0) 30.2 % (32.0-36.0) Red Cell Distribution Width 18.6 % (11.6-17.2) 18.9 % (11.6-17.2) Platelet Count 474 TH/MM3 (150-450) 460 TH/MM3 (150-450) Mean Platelet Volume 9.9 FL (7.0-11.0) 9.9 FL (7.0-11.0) Neutrophils (%) (Auto) 77.8 % (16.0-70.0) 89.5 % (16.0-70.0) Lymphocytes (%) (Auto) 15.8 % (9.0-44.0) 3.9 % (9.0-44.0) Monocytes (%) (Auto) 6.1 % (0.0-8.0) 6.1 % (0.0-8.0) Eosinophils (%) (Auto) 0.1 % (0.0-4.0) 0.0 % (0.0-4.0) Basophils (%) (Auto) 0.2 % (0.0-2.0) 0.5 % (0.0-2.0) Neutrophils # (Auto) 18.6 TH/MM3 (1.8-7.7) 17.8 TH/MM3 (1.8-7.7) Lymphocytes # (Auto) 3.8 TH/MM3 (1.0-4.8) 0.8 TH/MM3 (1.0-4.8) Monocytes # (Auto) 1.5 TH/MM3 (0-0.9) 1.2 TH/MM3 (0-0.9) Eosinophils # (Auto) 0.0 TH/MM3 (0-0.4) 0.0 TH/MM3 (0-0.4) Basophils # (Auto) 0.0 TH/MM3 (0-0.2) 0.1 TH/MM3 (0-0.2) CBC Comment DIFF FINAL DIFF FINAL Differential Comment Blood Urea Nitrogen 66 MG/DL (7-18) 90 MG/DL (7-18) Creatinine 1.70 MG/DL (0.60-1.30) 2.82 MG/DL (0.60-1.30) Random Glucose 255 MG/DL (74-106) 246 MG/DL (74-106) Total Protein 6.3 GM/DL (6.4-8.2) 5.4 GM/DL (6.4-8.2) Albumin 2.5 GM/DL (3.4-5.0) 2.1 GM/DL (3.4-5.0) Calcium Level 8.0 MG/DL (8.5-10.1) 7.7 MG/DL (8.5-10.1) Phosphorus Level 4.2 MG/DL (2.5-4.9) Magnesium Level 2.8 MG/DL (1.5-2.5) Alkaline Phosphatase 144 U/L (45-117) 173 U/L (45-117) Aspartate Amino Transf (AST/SGOT) 33 U/L (15-37) 154 U/L (15-37) Alanine Aminotransferase (ALT/SGPT) 54 U/L (12-78) 173 U/L (12-78) Total Bilirubin 0.4 MG/DL (0.2-1.0) 0.3 MG/DL (0.2-1.0) Sodium Level 148 MEQ/L (136-145) 147 MEQ/L (136-145) Potassium Level 4.8 MEQ/L (3.5-5.1) 5.7 MEQ/L (3.5-5.1) Chloride Level 111 MEQ/L (98-107) 112 MEQ/L (98-107) Carbon Dioxide Level 28.0 MEQ/L (21.0-32.0) 24.9 MEQ/L (21.0-32.0) Anion Gap 9 MEQ/L (5-15) 10 MEQ/L (5-15) Estimat Glomerular Filtration Rate 39 ML/MIN (>89) 22 ML/MIN (>89) Total Creatine Kinase 145 U/L (39-308) Creatine Kinase MB 2.7 NG/ML (0.5-3.6) Troponin I 0.45 NG/ML (0.02-0.05) Blood Gas Puncture Site RT RADIAL Blood Gas Patient Temperature 98.6 Blood Gas HCO3 28 mmol/L (22-26) Blood Gas Base Excess 0.6 mmol/L (-2-2) Blood Gas Oxygen Saturation 97 % (90-100) Arterial Blood pH 7.22 (7.380-7.420) Arterial Blood Partial Pressure CO2 70 mmHg (38-42) Arterial Blood Partial Pressure O2 214 mmHg (61-120) Arterial Blood Oxygen Content 17.2 Vol % (12.0-20.0) Arterial Blood Carboxyhemoglobin 0.6 % (0-4) Arterial Blood Methemoglobin 1.2 % (0-2) Blood Gas Hemoglobin 12.3 G/DL (12.0-16.0) Oxygen Delivery Device VENTILATOR Blood Gas Ventilator Setting Test 11/28/17 10:00 11/28/17 14:58 11/28/17 17:55 11/29/17 05:40 Urine Color YELLOW (YELLW/STRAW) Urine Turbidity CLOUDY (CLEAR) Urine pH 5.0 (5.0-8.5) Urine Specific [place] 1.023 (1.002-1.035) Urine Protein 100 mg/dL (NEG-TRACE) Urine Glucose (UA) NEG mg/dL (NEG) Urine Ketones NEG mg/dL (NEG) Urine Occult Blood MOD (NEG) Urine Nitrite NEG (NEG) Urine Bilirubin NEG (NEG) Urine Urobilinogen LESS THAN 2.0 MG/DL (LESS Urine Leukocyte Esterase LARGE (NEG) Urine RBC 36 /hpf (0-3) Urine WBC 116 /hpf (0-5) Urine WBC Clumps FEW (NONE) Urine Squamous Epithelial Cells 2 /hpf (0-5) Urine Amorphous Sediment FEW Urine Bacteria FEW /hpf (NONE) Urine Hyaline Casts 4 /lpf (RARE) Urine Mucus FEW /lpf (OCC) Urine Yeast (Budding) MANY (NONE) Microscopic Urinalysis Comment CATH-CULTURE IND Urine Random Creatinine 112.7 MG/DL Urine Random Sodium 15 MEQ/L 15 MEQ/L Blood Urea Nitrogen 93 MG/DL (7-18) 105 MG/DL (7-18) Creatinine 2.89 MG/DL (0.60-1.30) 3.66 MG/DL (0.60-1.30) Random Glucose 256 MG/DL (74-106) 194 MG/DL (74-106) Calcium Level 7.5 MG/DL (8.5-10.1) 7.6 MG/DL (8.5-10.1) Sodium Level 147 MEQ/L (136-145) 151 MEQ/L (136-145) Potassium Level 5.1 MEQ/L (3.5-5.1) 3.8 MEQ/L (3.5-5.1) Chloride Level 112 MEQ/L (98-107) 112 MEQ/L (98-107) Carbon Dioxide Level 26.4 MEQ/L (21.0-32.0) 26.4 MEQ/L (21.0-32.0) Anion Gap 9 MEQ/L (5-15) 13 MEQ/L (5-15) Estimat Glomerular Filtration Rate 21 ML/MIN (>89) 16 ML/MIN (>89) Urine Eosinophils NONE SEEN /HPF (NONE SEEN) Urine Osmolality 377 MOSM/KG (300-1300) Total Protein 5.1 GM/DL (6.4-8.2) Albumin 1.9 GM/DL (3.4-5.0) Alkaline Phosphatase 214 U/L (45-117) Aspartate Amino Transf (AST/SGOT) 210 U/L (15-37) Alanine Aminotransferase (ALT/SGPT) 275 U/L (12-78) Total Bilirubin 0.3 MG/DL (0.2-1.0) (Linda Gilbert) Result Diagram: 11/28/17 0732 11/29/17 0540 Microbiology Microbiology Date/Time Source Procedure Growth Status 11/26/17 17:58 Blood Peripheral Aerobic Blood Culture - Preliminary NO GROWTH IN 3 DAYS Resulted 11/26/17 17:58 Blood Peripheral Anaerobic Blood Culture - Preliminary NO GROWTH IN 3 DAYS Resulted 11/26/17 17:53 Blood Peripheral Aerobic Blood Culture - Preliminary NO GROWTH IN 3 DAYS Resulted 11/26/17 17:53 Blood Peripheral Anaerobic Blood Culture - Preliminary NO GROWTH IN 3 DAYS Resulted 11/28/17 10:00 Urine Catheterized Urine Urine Culture - Preliminary Yeast-Id To Follow Resulted Imaging Last Impressions Chest X-Ray 11/29/17 0000 Signed Impressions: Service Date/Time: Wednesday, November 29, 2017 09:58 - CONCLUSION: 1. More cephalad , [place] loop thoracostomy tube is now back out of the pleural space and position in the deep tissues of the upper right hemithorax. The lower, surgical thoracostomy tube has backed out slightly with the side port just on the inside of the chest wall in the pleural space. 2. Stable right-sided pneumothorax measuring 1.3 cm in depth. 3. Stable, extensive deep tissue and subcutaneous emphysematous changes. Stable bibasilar airspace disease. 4. Interval placement of a left IJ central venous catheter with tip projecting over the central venous system. No left-sided pneumothorax. 5. Otherwise, endotracheal and nasogastric tubes are grossly stable in position. Omid Traore MD Renal Ultrasound 11/28/17 0000 Signed Impressions: Service Date/Time: Tuesday, November 28, 2017 20:30 - CONCLUSION: Nondiagnostic exam. Rashad Bose MD . Procedures 11/16: Endotracheal intubation 11/18: Endotracheal intubation 11/27: Right-sided pigtail catheter placement to the right pleural cavity 11/27: Right chest tube placement . (Linda Gilbert) Patient/Family Conference Present at Family Conference: Spoke with and son regarding upcoming tracheostomy and PEG tube decisions. The 's goals are aggressive and she remains optimistic for the patient to make a full recovery. Patient and the son agree that he would be content with being able to sit at home and watch TV and does not wish to have an active quality of life. They wish to take him back home and care for him even if he requires ventilation. Patient has been maintained on a Trilogy vent/BiPAP for some time and the family wishes to use it to ventilator capabilities to keep the patient home. . Family Conference Time (mins): 60 Family Conference Location: Consult Room Issues Discussed: * Palliative care role, purpose, approach * Additional medical, psychosocial, and spiritual history * Patients general health, functional status, and cognitive changes in the months leading up to the current hospitalization * Patient/family understanding of the current medical problems * Patient/family understanding of prognosis * Patients goals of care as best understood from advance directives and/or conversations and/or values * Current medical treatment options and benefits/burdens of those options * Likely scenarios comparing ongoing aggressive care with a transition to comfort measures only * Questions answered to the best of my ability * Palliative care contact information provided (Linda Gilbert) Assessment and Plan Disease Oriented Problem List: (1) COPD (chronic obstructive pulmonary disease) (2) Respiratory distress (3) CHF (congestive heart failure) (4) ADRIAN (obstructive sleep apnea) (5) Diabetes mellitus type 2, insulin dependent Symptom Scale: (1) Dyspnea and respiratory abnormalities (2) Pain, generalized Pertinent Non-Medical Issues Psychosocial: He was born in [place] and moved to [place] many years ago. 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 Spiritual: Scientology pool. Legal: No legal issues noted. Ethical issues impacting care: No ethical issues noted. . Important Contacts : Cony Varela . Prognosis His prognosis is poor. He has significant lung compromise requiring a trilogy ventilator at home with multiple recurrent admissions for pulmonary compromise. He developed cardiac arrest requiring CPR with subsequent pneumothorax of the right lung. His renal indices continue to increase and he is now at risk of requiring dialysis. His transaminases are also rising, possible liver shock. His condition is frail and he is at significant risk for continued complications and decline. Code Status: Full Code Plan PLAN: Legal decision maker: Patient is not capacitated to make his decisions. His Cony is his legal proxy. Goals: Aggressive CODE STATUS: FULL CODE SYMPTOMS: * Dyspnea: Multifactorial to include chronic obstructive pulmonary disease, right pneumothorax, atrial fibrillation, diastolic heart failure, fluid volume excess. He is currently mechanically ventilated will likely progress to trach and PEG, which the family will agree to. * Pain: Currently he is receiving low-dose fentanyl for pain while on the ventilator. Palliative care will continue to follow the patient during hospital course as condition evolves, to assist patient/decision-maker with understanding of their medical conditions, weighing benefits/burdens of treatment options, for clarification of goals of treatment. Additionally will assist with any symptoms of palliative concern. . (Linda Gilbert) Time Spent Time Periods: 17:45 -18:45 Total Floor Time (mins): 75 Face to Face Time (mins): 60 >50% Counseling/Coord of Care: Yes (Linda Gilbert) Thank you for the opportunity to participate in the care of Mr. Varela. (Linda Gilbert) Attestation To help prompt me to consider important information that might be impacting today's encounter and assessment, information from prior notes written by myself or my colleagues may have been "brought forward" into today's note. My signature on this note, however, is an attestation that I personally performed the exam, history, and/or decision-making noted today, and, unless otherwise indicated, the interactions with patient, family, and staff as well as the review of records all occurred today. I also attest that the listed assessment and stated plan reflect my best clinical judgment today based on the combination of historical information, prior notes, and today's exam/ interactions. When time spent is documented, it refers only to time spent today by the signer, or if indicated, combined time spent today by collaborating physician/nurse practitioner. . (Linda Gilbert) Collaborating MD Comments Chart reviewed. Case discussed with palliative care RN EMERGENCY. Above RN EMERGENCY note reviewed and I concur. . (Jabari Maldonado MD) Linda Gilbert Nov 29, 2017 17:05 Jabari Maldonado MD Dec 06, 2017 05:35
--- NOTE | 2017-11-29 17:18 | HHI.NPPN ---
Subjective Renal Failure: Acute History of Present Illness This is a 77-year-old male with past medical history of ischemic heart disease, atrial fibrillation, congestive heart failure, possibly diastolic dysfunction, diabetes mellitus, chronic obstructive pulmonary disease, was admitted on 11/14 with respiratory distress. Nephrology was called to see the patient because of elevated BUN and creatinine. The patient has creatinine of 1.1 on admission, which increased after 2 or 3 to 1.3-1.5 and for the last 2 days, it has been going up and now it is 2.8. The patient was initially diagnosed with pneumonia and was started on antibiotics and then later on, patient developed respiratory failure and was intubated. He was also found to have asystole on 11/27 for 3 minutes and CPR was done with ACLS protocol, and it was shown that he has large right-sided pneumothorax. The blood pressure has been stable and there are no significant hypotensive episodes documented. Most of the history was taken from he patient' s chart. Additional Remarks Sedated and intubated. Creatinine is rising at 3.66 today. (Adeola Velez) Review of Systems General General Remarks Unable to do ROS as patient is intubated (Adeola Velez) Objective Data Data Vital Signs Date Time Temp Pulse Resp B/P (MAP) Pulse Ox O2 Delivery O2 Flow Rate FiO2 11/29/17 16:08 95 40 11/29/17 14:00 95 11/29/17 12:01 96 40 11/29/17 12:00 93 11/29/17 12:00 103.4 93 24 111/61 (78) 96 11/29/17 10:16 110 117/68 11/29/17 10:00 112 11/29/17 08:40 127 117/70 11/29/17 08:16 95 40 11/29/17 08:00 123 11/29/17 08:00 102.2 123 16 132/65 (87) 96 11/29/17 06:00 128 11/29/17 04:00 99.2 125 24 94/54 (67) 96 11/29/17 04:00 95 40 11/29/17 04:00 135 11/29/17 04:00 40 11/29/17 02:00 124 11/29/17 01:00 138 24 105/64 (78) 96 11/29/17 00:40 96 40 11/29/17 00:00 40 11/29/17 00:00 149 24 115/65 (82) 97 11/29/17 00:00 120 11/28/17 22:00 122 11/28/17 21:00 136 25 157/67 (97) 96 11/28/17 20:00 135 30 133/66 (88) 97 11/28/17 20:00 40 11/28/17 20:00 134 11/28/17 19:50 96 40 11/28/17 19:15 99.0 137 24 109/66 (80) 96 11/28/17 18:00 101 11/28/17 18:00 115 (Adeola Velez) -: 11/29/17 1600 11/29/17 0540 Imaging Last Impressions Chest X-Ray 11/29/17 0000 Signed Impressions: Service Date/Time: Wednesday, November 29, 2017 09:58 - CONCLUSION: 1. More cephalad , [place] loop thoracostomy tube is now back out of the pleural space and position in the deep tissues of the upper right hemithorax. The lower, surgical thoracostomy tube has backed out slightly with the side port just on the inside of the chest wall in the pleural space. 2. Stable right-sided pneumothorax measuring 1.3 cm in depth. 3. Stable, extensive deep tissue and subcutaneous emphysematous changes. Stable bibasilar airspace disease. 4. Interval placement of a left IJ central venous catheter with tip projecting over the central venous system. No left-sided pneumothorax. 5. Otherwise, endotracheal and nasogastric tubes are grossly stable in position. Omid Traore MD Renal Ultrasound 11/28/17 0000 Signed Impressions: Service Date/Time: Tuesday, November 28, 2017 20:30 - CONCLUSION: Nondiagnostic exam. Rashad Bose MD (Adeola Velez) Physical Exam General Appearance: Obese (Adeola Velez) Pulmonary Resp Exam: Breath Sounds Equal Resp Remarks SQ emphysema present Intubated CT right chest wall (Adeola Velez) Cardiology CV Exam: Regular (Adeola Velez) Gastrointestinal/Abdomen GI Exam: Soft, Non-Tender, Distended (Adeola Velez) Genitourinary Exam: Flank Non-Tender (Adeola Velez) Integumentary Skin Exam: Clear, Warm (Adeola Velez) Extremeties Extremities Exam: Moderate Edema (Adeola Velez) Neurologic Neuro Exam: Sedated (Adeola Velez) Assessment/Plan Assessment Summary: DAVID/Acute Renal Failure Problem List: (1) DAVID (acute kidney injury) ICD Codes: N17.9 - Acute kidney failure, unspecified Plan: Acute kidney injury most likely related to acute tubular necrosis, either from the infection or related to his cardiac status and cardiac arrest. Renal US unable to visualize kidneys or bladder? UOP at 475 overnight. Potassium WNL Creatinine rising at 3.66 with hypernatremia noted. Plan Will order IVF's Renal dose antibiotics Continue for follow UOP and BMP Avoid nephrotoxins. (Adeola Velez) Problem List: (1) DAVID (acute kidney injury) ICD Codes: N17.9 - Acute kidney failure, unspecified Plan: Acute kidney injury most likely related to acute tubular necrosis, either from the infection or related to his cardiac status and cardiac arrest. Renal US unable to visualize kidneys or bladder? UOP at 475 overnight. Potassium WNL Creatinine rising at 3.66 with hypernatremia noted. Plan Will order IVF's Renal dose antibiotics Continue for follow UOP and BMP Avoid nephrotoxins. Patient seen and examined, agree with above. Na. is increased, on 08/31 NS. (America Vela MD) Adeola Velez Nov 29, 2017 17:18 America Vela MD Nov 29, 2017 18:35
--- NOTE | 2017-11-29 17:29 | HHI.CCPN ---
Subjective Remarks/Hospital Course This is a 77-year-old male with a medical history significant for COPD, CHF, A. fib, diabetes, that presented to emergency department from [facility] for evaluation of worsening shortness of breath over the last 3 days. The patient was been given Solu-Medrol 125 mg and 2 albuterol treatments enroute to ED. Upon presentation to the ED the patient was on a nonrebreather. He was tachypneic and tachycardic. Patient's medical history significant for MRSA pneumonia previously admitted on 10/27/16 for approximately 12 days at [facility]. The patient is normally on 2.5 L/m nasal cannula O2 home dependency, and he lives with ( normally) a PCO2 in the 80s according to his . Patient was then discharged to [facility], and then transferred to [facility] for rehabilitation. He has been on an unknown antibiotic per the family and steroids for the last 3 days. Laboratory and imaging studies were performed with noted elevation in CO2 The patient was given empiric antibiotics in the ED and placed on BiPAP. Critical care medicine was consulted. Subjective: 11/15: Patient maintained on BiPAP throughout the night O2 saturations 97-98% on FiO2 of 0.40. Hemodynamically stable. Attempts made to wean patient to nasal cannula this a.m. unsuccessful, patient's O2 saturation in the 70s, patient placed back on BiPAP. Chest x-ray pending WBC count significantly diminished, leukocytosis resolved. Patient extremely anxious, Precedex infusion initiated. 11/16: Late entry note. Patient seen 10 AM. Overnight the patient converted to A. fib RVR, despite being on Cardizem 4 times a day and metoprolol twice a day- home medications, the patient received IV Cardizem followed by amiodarone infusion. Per report the patient became hypotensive, Cardizem discontinued. Amiodarone continued. Early this a.m. patient was resting comfortably A. fib rate controlled rate. The patient suddenly converted to A. fib RVR heart rate 150s-160s, acute hypoxemic respiratory failure, requiring intubation. The patient was intubated uneventfully and continues on amiodarone at 0.5 mg/hour, rate now controlled in conjunction with sedation. Cardiology consulted, his grapple crew leader is Dr. Reyes X-ray revealed lung consolidation improved, chest x- ray clear. Plan for CPAP trials in a.m.. 11/17: No acute events overnight. Patient had 1 short 8 beat run of V. tach last evening was self resolution, electrolytes within normal limits. The patient continues on amiodarone 0.5 mg/hr. CPAP trials initiated this a.m.. Tube feeds initiated at trickle feeds. Patient converted to sinus rhythm at 2 AM. 11/18 Patient remains sedated and intubated. Afebrile. 11/19 Patient was extubated yesterday however last night he was noted to choke on water provided by the family. Stat ABG demonstrated acute hypercapnic respiratory failure and was emergently intubated. Currently sedated and intubated. 11/20 Patient remains intubated on Fentanyl drip however he si awake and alert. Afebrile. 11/21 Patient is awake and alert placed on CPAP with PS:15, PEEP:5. Afebrile. 11/22 Patient remains intubated , did not tolerate CPAP trials yesterday as he became tachycardic and hypertensive. On no sedation awake and alert. 11/23 No events overnight, off sedation. 11/24: Resting comfortably on mechanical ventilation currently. Daily C Pap trials ongoing. 11/25: Sedated with Precedex, orally intubated on mechanical ventilation. Daily C Pap trials 11/26: Sedated with Precedex, orally intubated on mechanical ventilation. Got tachypneic with CPAP trial today hence placed back on PRVC. Spiked a fever, garcia cultures ordered. Went into A. fib with RVR subsequently for which being initiated on amiodarone bolus followed by drip and Lopressor 5 mg IV every 6 as needed for 11/27: This morning patient developed bradycardia followed by asystole for which she had 3 minutes CPR with ACLS protocol with return of spontaneous circulation. Post code chest x-ray revealed moderate to large right pneumothorax for which a right pigtail catheter was placed by me however despite airleak patient continue have moderate to large pneumothorax hence a second right sided 28 [place] chest tube was placed to -40 cm water pressure. Air leaks 1+ in both pigtail catheter and chest tube. Patient remains in a flutter currently. Dr. reyes evaluated patient as well following cardiac arrest. 11/28: Sedated, arousable, orally intubated on mechanical ventilation. Worsening renal function noted. MDR Pseudomonas in sputum. Right sided chest tube/ pigtail catheter with 1+ air leak in both. Subcutaneous emphysema noted over right side of face neck and right upper extremity. On 50% FiO2, PEEP +5. Poor urine output for which 500 cc and is bolus given earlier. Treated for hyperkalemia with Kayexalate PO, glucose insulin, calcium IV. 11/29: Remains sedated, arousable, orally intubated on mechanical ventilation. A. fib with RVR this morning for which she was loaded with amiodarone and initiated on amiodarone drip. Spiking fever 103.5. ID adjusting antibiotics. Stool for C. difficile ordered as he had some diarrhea today though received Kayexalate yesterday for hyperkalemia. Pigtail catheter on the right side appeared to be dislodged hence this was removed. 28 [place] chest tube in right pleural cavity repositioned. Objective Vital Signs Date Time Temp Pulse Resp B/P (MAP) Pulse Ox O2 Delivery O2 Flow Rate FiO2 11/29/17 16:08 95 40 11/29/17 14:00 95 11/29/17 12:00 103.4 24 111/61 (78) Intake and Output 11/29/17 11/29/17 11/30/17 08:00 16:00 00:00 Intake Total 628 ml Output Total 472 ml Balance 156 ml Result Diagram: 11/29/17 1600 11/29/17 0540 Imaging Last 48 hours Impressions Chest X-Ray 11/29/17 0000 Signed Impressions: Service Date/Time: Wednesday, November 29, 2017 09:58 - CONCLUSION: 1. More cephalad , [place] loop thoracostomy tube is now back out of the pleural space and position in the deep tissues of the upper right hemithorax. The lower, surgical thoracostomy tube has backed out slightly with the side port just on the inside of the chest wall in the pleural space. 2. Stable right-sided pneumothorax measuring 1.3 cm in depth. 3. Stable, extensive deep tissue and subcutaneous emphysematous changes. Stable bibasilar airspace disease. 4. Interval placement of a left IJ central venous catheter with tip projecting over the central venous system. No left-sided pneumothorax. 5. Otherwise, endotracheal and nasogastric tubes are grossly stable in position. Omid Traore MD Renal Ultrasound 11/28/17 0000 Signed Impressions: Service Date/Time: Tuesday, November 28, 2017 20:30 - CONCLUSION: Nondiagnostic exam. Rashad Bose MD Chest X-Ray 11/28/17 0000 Signed Impressions: Service Date/Time: Tuesday, November 28, 2017 02:32 - CONCLUSION: 1. 2 right- sided chest tubes with small right pneumothorax. Extensive subcutaneous air. Mild basilar airspace disease. Tera Gibson MD Chest X-Ray 11/27/17 1745 Signed Impressions: Service Date/Time: Monday, November 27, 2017 17:44 - CONCLUSION: Slight decrease in pneumothorax size. Rashad Bose MD Last Impressions Chest X-Ray 11/21/17 0000 Signed Impressions: Service Date/Time: Tuesday, November 21, 2017 10:03 - CONCLUSION: Left basilar streakiness consistent with atelectasis and/or infiltrate. Hossein Torres MD Objective Remarks GENERAL: Patient is 77 yo intubated SKIN: Warm and dry. HEAD: Normocephalic. Subcutaneous emphysema involving right side of face neck shoulder and arm. EYES: No scleral icterus. No injection or drainage. NECK: Supple, trachea midline. No JVD or lymphadenopathy. CARDIOVASCULAR: S1-S2 irregularly irregular, no gallop or murmur. RESPIRATORY: Orally intubated on mechanical ventilation, air entry decreased over right lung field, scattered rhonchi bilaterally, no wheezing. Right sided chest tube with 2+ airleak. Subcutaneous emphysema or right chest wall, neck, right side of face and right upper extremity. GASTROINTESTINAL: Abdomen soft, non-tender, nondistended. MUSCULOSKELETAL: Bilateral edema Neuro: Awake, orally intubated, on mechanical ventilation, not following commands. A/P Problem List: (1) A-fib ICD Code: I48.91 - Unspecified atrial fibrillation (2) CHF (congestive heart failure) ICD Code: I50.9 - Heart failure, unspecified Status: Chronic (3) HTN (hypertension) ICD Code: I10 - Essential (primary) hypertension Status: Chronic (4) ADRIAN (obstructive sleep apnea) ICD Code: G47.33 - Obstructive sleep apnea (adult) (pediatric) Status: Chronic (5) MRSA pneumonia ICD Code: J15.212 - Pneumonia due to Methicillin resistant Staphylococcus aureus Status: Acute (6) Diabetes mellitus type 2, insulin dependent ICD Code: E11.9 - Type 2 diabetes mellitus without complications; Z79.4 - detention (current) use of insulin Status: Chronic (7) COPD (chronic obstructive pulmonary disease) ICD Code: J44.9 - Chronic obstructive pulmonary disease, unspecified Status: Acute (8) Respiratory distress ICD Code: R06.03 - Acute respiratory distress Status: Acute (9) Leukocytosis ICD Code: D72.829 - Elevated white blood cell count, unspecified Status: Acute (10) Lung consolidation ICD Code: J18.1 - Lobar pneumonia, unspecified organism Status: Acute (11) Anxiety ICD Code: F41.9 - Anxiety disorder, unspecified Status: Chronic Assessment and Plan Plan by systems: Neurologic: Possible Anoxic encephalopathy following cardiac arrest Anxiety disorder Fentanyl for sedation as needed. Follow neuro status. Hold gabapentin 300mmg q HS home med Respiratory: Acute respiratory failure on mechanical ventilation- extubated and reintubated night of 11/18 after he was noted to choke on water provided by family. COPD exacerbation Pneumonia-MRSA Right sided pneumothorax following CPR status post pigtail catheter/chest tube placement 11/27 Obstructive sleep apnea Home O2 dependency Continue with vent support keep sats >92% Bronchodilators, methylprednisolone 40 mg IV daily Pulmonology - Dr Price, Right sided chest tube in place with 1+ air leak. Continue rt chest tube to - 40 cm water pressure with underwater seal. Right sided pigtail catheter removed as it appeared to be this last and out of the pleural cavity on chest x- ray on 11/29 Cardiovascular: A. fib RVR Cardiac arrest - asystole, status post CPR 11/27 History of CHF CAD atorvastatin 80 daily at bedtime, metoprolol 50 mg twice a day, Cardizem 60 mg 4 times a day . Eliquis held from 11/27 in view of anticipated procedures. Patient already had 2 chest tubes placed on 11/27. By mouth beta naomy, Cardizem resumed. Amiodarone 150 mg bolus followed by a drip resumed 11/29 due to A. fib with RVR.. Lopressor 2.5 mg IV every 6 hourly as needed for heart rate greater than 130 Cardiology - Dr. Reyes-discussed with Dr. reyes following cardiac arrest on 11/27 Echo showed EF 65-70% Renal: DAVID Hyperkalemia Monitor renal function, electrolytes replacement per protocol. Treated for hyperkalemia with Kayexalate, glucose insulin and calcium on 11/28. Consulted nephrology and discussed with Dr. Ragland. FEN/GI: Electrolyte derangement GERD Tolerating tube feeds with Jevity 1.5 at goal. Pepcid for GI prophylaxis Heme/ID: Pneumonia MRSA positive-on 10/27 Leukocytosis ID following- Antibiotics per ID (on by mouth Zyvox, IV Levaquin, fluconazole), started on meropenem on 11/28 for MDR Pseudomonas in sputum. Being started on IV micafungin. Stool for C. difficile ordered on 11/29 in view of persistent fever and started on by mouth vancomycin. 11/14 Obtain blood , urine - NGTD 11/16 sputum cultures- Kleb pneumonia 11/26 sputum cultures growing multidrug resistant Pseudomonas/MRSA 11/28 urine culture growing yeast 11/26 blood cultures no growth so far. Endocrine: Glucose monitoring per ICU protocol-low dose regimen -- SSI(high scale) Levemir increased from 14u Q12 to 25 units every 12 hourly Prophylaxis: GI Prophylaxis Famotidine BID DVT Prophylaxis -- SCDs Held home dose Eliquis 5 mg BID on 11/27 in view of anticipated procedures. Start heparin 5000 units subcutaneously every 8 hourly for DVT prophylaxis on 11/28. Lines: Left IJ central line placed 11/28 Discussed with patient's son on 11/28 regarding current clinical status and plan of care at bedside and he voiced understanding and was agreeable. Explained possible need for tracheostomy and PEG tube placement. Plan of care with patient's this morning on 12/17 W. understanding. Prognosis appears poor. Consulted palliative care to assist with deciding goals of therapy Condition critical. Time spent on critical care excluding procedures 45 minutes Problem Qualifiers (1) COPD (chronic obstructive pulmonary disease): Qualified Codes: J44.9 - Chronic obstructive pulmonary disease, unspecified (2) Leukocytosis: Qualified Codes: D72.829 - Elevated white blood cell count, unspecified Lars Flores MD Nov 29, 2017 17:29
--- NOTE | 2017-11-29 17:32 | PD.PROCEDR ---
Central Line Procedure REASON FOR PROCEDURE Central venous access PROCEDURE PERFORMED Central line placement: Left internal jugular vein with ultrasound guidance CONSENT Informed consent for procedure was obtained from family and documented on chart. The risks and benefits of the procedure were discussed to include but limited to bleeding, clot formation, infection. ANESTHESIA Local injection of 1% Lidocaine DESCRIPTION OF THE PROCEDURE The patient was placed in supine, mild Trendelenburg position. The area was exposed and cleansed with ChloraPrep, times two. Large sterile drape was used to cover the patient, with the site exposed, under sterile conditions including cap, face mask, sterile gown, and sterile gloves. On single attempt, the introducer needle was inserted with negative pressure in syringe and venous flash was obtained. The guide wire was then advanced without any restriction and the needle was removed. The dilator was used without any complications. Using Seldinger technique a 20 cm antimicrobial coated triple lumen catheter was advanced over the guide wire to a depth of 18 centimeters. The guide wire was removed. All ports were aspirated with dark venous blood return and flushed easily with sterile saline. All ports were capped. Antibiotic disc was placed around central line at puncture site. The central line was secured to the skin with two interrupted 2.0 silk sutures. The area was bandaged with sterile see-through central line bandage. Stat lock was not used as patient extremely diaphoretic with difficult to secure line as well as difficult anatomy with deep skin folds and significant subcutaneous emphysema in neck RADIOLOGICAL DATA Ultrasound guidance was used to locate left internal jugular vein. COMPLICATIONS: No apparent complications ESTIMATED BLOOD LOSS: Less than 1 cc. Lars Flores MD Nov 29, 2017 17:32
[2017-11-29] MEDS: SODIUM CHLOR 0.45% 1000 ML INJ 1,000 ML IV SCH (17:53)
[2017-11-29] MEDS: VANCOMYCIN 500 MG VIAL (FOR ORAL USE ONLY) PO SCH ×2 (17:54→23:24)
--- NOTE | 2017-11-29 17:54 | RADRPT ---
EXAM DATE/TIME: 11/29/2017 17:30 [facility] COMPARISON: CHEST SINGLE AP, November 29, 2017, 9:58. INDICATIONS : Follow-up chest tube reposition. Pneumothorax. MEDICAL HISTORY : Hypertension. Chronic obstructive pulmonary disease. Diabetes mellitus type II. Congestive heart failure. A-fib. SURGICAL HISTORY : Chest tube, right. ENCOUNTER: Subsequent ACUITY: 1 day PAIN SCORE: Non-responsive. LOCATION: Right chest FINDINGS: Right chest tube tip projects in the upper lateral right chest. No definite evidence of pneumothorax , however, extensive diffuse bilateral subcutaneous emphysema may obscured a small apical pneumothora x. ET tube tip above the toña. Gastric tube traverses the field of view. Left internal jugular c atheter tip projects over the mid superior vena cava. CONCLUSION: No definite evidence of pneumothorax status post repositioning of right chest tube. Shaq Eisenberg MD on November 29, 2017 at 17:50 Board Certified Radiologist. This report was verified electronically.
[2017-11-29] MEDS: MICAFUNGIN INJ 150 MG in SODIUM CHLORIDE 0.9% INJ 100 ML IV SCH (18:54)
[2017-11-29] MEDS: SODIUM CHLOR 0.9% 1000 ML INJ 1,000 ML IV SCH ×2 (20:28→20:49)
--- NOTE | 2017-11-29 23:11 | RADRPT ---
EXAM DATE/TIME: 11/29/2017 22:02 [facility] COMPARISON: No previous studies available for comparison. INDICATIONS : Bilateral leg swelling. MEDICAL HISTORY : Congestive heart failure. Hypertension. Chronic obstructive pulmonary disease. Atrial fibrillation. M RSA. Gastroesophageal reflux disease. BPH. Diabetes. Anxiety. SURGICAL HISTORY : Cardiac ablation. Knee surgery. ENCOUNTER: Initial ACUITY: 1 day PAIN SCORE: Non-responsive LOCATION: Bilateral legs. TECHNIQUE: Venous ultrasound of the left and right leg was performed from the inguinal ligament to the proximal calf. Real-time, color Doppler and spectral tracing, compression and augmentation techniques were us ed. FINDINGS: RIGHT LEG: There is normal compressibility of the deep venous system from the inguinal region to the proximal ca lf. No echogenic clot is seen in the lumen of the common femoral, femoral, popliteal, and posterior tibial veins. There is a normal response of the venous system to proximal and distal augmentation an d respiration. LEFT LEG: There is normal compressibility of the deep venous system from the inguinal region to the proximal ca lf. No echogenic clot is seen in the lumen of the common femoral, femoral, popliteal, and posterior tibial veins. There is a normal response of the venous system to proximal and distal augmentation an d respiration. CONCLUSION: Normal examination. Abdiel Mcintyre MD on November 29, 2017 at 23:07 Board Certified Radiologist. This report was verified electronically.
[2017-11-29] MEDS: ATORVASTATIN 80 MG TAB PO SCH (23:25)
[2017-11-30] VITALS (19 sets, daily range): BP systolic 80–119; BP diastolic 58–74; PULSE 65–121; RESP 11–24; TEMP 98.7–100.1; O2SAT 88–100
[2017-11-30] MEDS: CHLORHEXIDINE GLUCONATE 2 % 1 PACK (2 CLOTHS) TOP SCH (04:00)
[2017-11-30] MEDS ORDERED: TERBUTALINE INJ 1 MG/ML AMP SQ PRN (04:15)
[2017-11-30] MEDS: NOREPINEPHRINE-DEXTROSE DRIP 250 ML IV PRN (04:22)
[2017-11-30] MEDS: INSULIN ASPART SUPPLEMENTAL SCALE SQ SCH ×5 (04:43→20:00)
[2017-11-30] MEDS: MEROPENEM INJ 500 MG in SODIUM CHLORIDE 0.9% INJ 100 ML IV SCH ×2 (04:44→17:09)
[2017-11-30] MEDS: SODIUM CHLOR 0.45% 1000 ML INJ 1,000 ML IV SCH ×2 (04:45→17:23)
[2017-11-30] MEDS: CHLORHEXIDINE 0.12% (ORAL KIT) 15 ML CUP MT SCH ×2 (08:12→20:14)
[2017-11-30] MEDS: VANCOMYCIN 500 MG VIAL (FOR ORAL USE ONLY) PO SCH ×4 (08:13→20:11)
[2017-11-30] MEDS: HEPARIN SODIUM - SQ 10,000 UNITS/ML VIAL SQ SCH ×2 (08:13→20:12)
[2017-11-30] MEDS: FLUCONAZOLE 100 MG TAB PO SCH (08:14)
[2017-11-30] MEDS: DILTIAZEM HCL 60 MG TAB PO SCH ×4 (08:14→20:12)
[2017-11-30] MEDS: FAMOTIDINE 20 MG TAB PO SCH ×2 (08:14→20:13)
[2017-11-30] MEDS: BUDESONIDE-FORMOTEROL 160/4.5 MCG INHALER INH SCH ×2 (08:15→20:13)
[2017-11-30] MEDS: INSULIN DETEMIR 100 UNITS/ML VIAL SQ SCH ×2 (08:15→20:13)
[2017-11-30] MEDS: LINEZOLID 600 MG TAB PO SCH ×2 (08:15→20:13)
[2017-11-30] MEDS: SODIUM CHLORIDE 0.9% FLUSH 10 ML FLUSH IV FLUSH SCH ×2 (08:15→20:13)
[2017-11-30] MEDS: DOCUSATE SODIUM 50 MG/SENNA 8.6 MG TAB PO SCH ×2 (08:15→20:13)
[2017-11-30] MEDS: methylPREDNISolone SOD SUCC 40 MG/1 ML VIAL IV PUSH SCH (08:15)
[2017-11-30 09:28] LABS: AUTOMATED NEUTROPHIL # 19.6 TH/MM3 (1.8-7.7); HEMATOCRIT 35.9 % (39.0-51.0); LYMPH % 4.4 % (9.0-44.0); MEAN CELL VOLUME 85.2 FL (80.0-100.0); MEAN CORPUSCULAR HEMOGLOBIN 26.1 PG (27.0-34.0); MEAN CORPUSCULAR HGB CONC 30.6 % (32.0-36.0); MEAN PLATELET VOLUME 10.2 FL (7.0-11.0); MONO % 6.4 % (0.0-8.0); MONOCYTE # 1.4 TH/MM3 (0-0.9); NEUT % 89.2 % (16.0-70.0); PLATELET COUNT 423 TH/MM3 (150-450); RED BLOOD COUNT 4.22 MIL/MM3 (4.50-5.90); RED CELL DISTRIBUTION WIDTH 19.6 % (11.6-17.2)
[2017-11-30 09:56] LABS: BICARBONATE 24.8 MEQ/L (21.0-32.0); CALCIUM 6.8 MG/DL (8.5-10.1); CREATININE 4.26 MG/DL (0.60-1.30); MAGNESIUM 2.6 MG/DL (1.5-2.5); PHOSPHORUS 8.8 MG/DL (2.5-4.9)
[2017-11-30 10:08] LABS: CALCIUM-PROTEIN CORRECTED 7.9 MG/DL (8.5-10.1); TOTAL PROTEIN 4.9 GM/DL (6.4-8.2)
[2017-11-30] MEDS: AMIODARONE INJ 450 MG in SODIUM CHLOR 0.9% (EXCEL) INJ 250 ML IV PRN (11:30)
[2017-11-30] MEDS: METOPROLOL TARTRATE 50 MG TAB PO SCH ×2 (11:30→20:23)
--- NOTE | 2017-11-30 15:36 | HHI.NPPN ---
Subjective Renal Failure: Acute History of Present Illness This is a 77-year-old male with past medical history of ischemic heart disease, atrial fibrillation, congestive heart failure, possibly diastolic dysfunction, diabetes mellitus, chronic obstructive pulmonary disease, was admitted on 11/14 with respiratory distress. Nephrology was called to see the patient because of elevated BUN and creatinine. The patient has creatinine of 1.1 on admission, which increased after 2 or 3 to 1.3-1.5 and for the last 2 days, it has been going up and now it is 2.8. The patient was initially diagnosed with pneumonia and was started on antibiotics and then later on, patient developed respiratory failure and was intubated. He was also found to have asystole on 11/27 for 3 minutes and CPR was done with ACLS protocol, and it was shown that he has large right-sided pneumothorax. The blood pressure has been stable and there are no significant hypotensive episodes documented. Most of the history was taken from he patient' s chart. Additional Remarks Sedated and intubated. Creatinine continues to rise at 4.26. (Adeola Velez) Review of Systems General General Remarks Unable to do ROS as patient is intubated (Adeola Velez) Objective Data Data Vital Signs Date Time Temp Pulse Resp B/P (MAP) Pulse Ox O2 Delivery O2 Flow Rate FiO2 11/30/17 13:12 92 40 11/30/17 11:30 108 115/65 11/30/17 10:26 94 40 11/30/17 08:00 98.7 121 13 119/74 (89) 88 11/30/17 08:00 40 11/30/17 08:00 121 11/30/17 07:50 91 40 11/30/17 06:00 113 11/30/17 04:22 100 78/50 11/30/17 04:00 40 11/30/17 04:00 99 11/30/17 04:00 100.1 99 24 103/60 (74) 98 11/30/17 03:46 100 40 11/30/17 02:00 99 11/30/17 00:33 95 40 11/30/17 00:00 99.8 107 24 80/65 (70) 98 11/30/17 00:00 40 11/30/17 00:00 107 11/29/17 22:00 125 11/29/17 21:09 100 40 11/29/17 20:00 104.6 105 24 82/48 (59) 100 11/29/17 20:00 40 11/29/17 20:00 105 11/29/17 18:54 97 81/53 11/29/17 18:00 95 11/29/17 16:08 95 40 11/29/17 16:00 40 11/29/17 16:00 103.2 91 33 128/59 (82) 95 11/29/17 16:00 91 (Adeola Velez) -: 11/30/17 0820 11/30/17 0820 Microbiology 11/29/17 Aerobic Blood Culture - Preliminary, Resulted NO GROWTH IN 1 DAY 11/29/17 Anaerobic Blood Culture - Preliminary, Resulted NO GROWTH IN 1 DAY Imaging Last Impressions Lower Extremity Ultrasound 11/29/17 0000 Signed Impressions: Service Date/Time: Wednesday, November 29, 2017 22:02 - CONCLUSION: Normal examination. Abdiel Mcintyre MD Chest X-Ray 11/29/17 0000 Signed Impressions: Service Date/Time: Wednesday, November 29, 2017 17:30 - CONCLUSION: No definite evidence of pneumothorax status post repositioning of right chest tube. Shaq Eisenberg MD Renal Ultrasound 11/28/17 0000 Signed Impressions: Service Date/Time: Tuesday, November 28, 2017 20:30 - CONCLUSION: Nondiagnostic exam. Rashad Bose MD (Adeola Velez) Physical Exam General Appearance: No Acute Distress, Obese (Adeola Velez) Pulmonary Resp Exam: Breath Sounds Equal Resp Remarks SQ emphysema present Intubated CT right chest wall (Adeola Velez) Cardiology CV Exam: Regular (Adeola Velez) Gastrointestinal/Abdomen GI Exam: Soft, Non-Tender, Distended (Adeola Velez) Genitourinary Exam: Flank Non-Tender (Adeola Velez) Integumentary Skin Exam: Clear, Warm (Adeola Velez) Extremeties Extremities Exam: Moderate Edema (Adeola Velez) Neurologic Neuro Exam: Sedated (Adeola Velez) Assessment/Plan Assessment Summary: DAVID/Acute Renal Failure Problem List: (1) DAVID (acute kidney injury) ICD Codes: N17.9 - Acute kidney failure, unspecified Plan: Acute kidney injury most likely related to prerenal vs acute tubular necrosis, either from the infection or related to his cardiac status and cardiac arrest. FeNa at 0.26% suggestive of prerenal Renal US unable to visualize kidneys or bladder? UOP minimal at 325 overnight. Potassium WNL Creatinine continues to rise at 4.26 from 3.66 Plan Continue IVF sodium levels and blood pressure are improving. Renal dose antibiotics Continue for follow UOP and BMP Avoid nephrotoxins as possible (Adeola Velez) Problem List: (1) DAVID (acute kidney injury) ICD Codes: N17.9 - Acute kidney failure, unspecified Plan: Acute kidney injury most likely related to prerenal vs acute tubular necrosis, either from the infection or related to his cardiac status and cardiac arrest. FeNa at 0.26% suggestive of prerenal Renal US unable to visualize kidneys or bladder? UOP minimal at 325 overnight. Potassium WNL Creatinine continues to rise at 4.26 from 3.66 Plan Continue IVF sodium levels and blood pressure are improving. Renal dose antibiotics Continue for follow UOP and BMP Avoid nephrotoxins as possible. Patient seen and examined, agree with above. Urine out put is low, on low dose pressors. Possible HD tomorrow if not better. (America Vela MD) Adeola Velez Nov 30, 2017 15:36 America Vela MD Nov 30, 2017 18:56
[2017-11-30] MEDS: MICAFUNGIN INJ 150 MG in SODIUM CHLORIDE 0.9% INJ 100 ML IV SCH (17:48)
--- NOTE | 2017-11-30 17:51 | HHI.CCPN ---
Subjective Remarks/Hospital Course This is a 77-year-old male with a medical history significant for COPD, CHF, A. fib, diabetes, that presented to emergency department from [facility] for evaluation of worsening shortness of breath over the last 3 days. The patient was been given Solu-Medrol 125 mg and 2 albuterol treatments enroute to ED. Upon presentation to the ED the patient was on a nonrebreather. He was tachypneic and tachycardic. Patient's medical history significant for MRSA pneumonia previously admitted on 10/27/16 for approximately 12 days at [facility]. The patient is normally on 2.5 L/m nasal cannula O2 home dependency, and he lives with ( normally) a PCO2 in the 80s according to his . Patient was then discharged to [facility], and then transferred to [facility] for rehabilitation. He has been on an unknown antibiotic per the family and steroids for the last 3 days. Laboratory and imaging studies were performed with noted elevation in CO2 The patient was given empiric antibiotics in the ED and placed on BiPAP. Critical care medicine was consulted. Subjective: 11/15: Patient maintained on BiPAP throughout the night O2 saturations 97-98% on FiO2 of 0.40. Hemodynamically stable. Attempts made to wean patient to nasal cannula this a.m. unsuccessful, patient's O2 saturation in the 70s, patient placed back on BiPAP. Chest x-ray pending WBC count significantly diminished, leukocytosis resolved. Patient extremely anxious, Precedex infusion initiated. 11/16: Late entry note. Patient seen 10 AM. Overnight the patient converted to A. fib RVR, despite being on Cardizem 4 times a day and metoprolol twice a day- home medications, the patient received IV Cardizem followed by amiodarone infusion. Per report the patient became hypotensive, Cardizem discontinued. Amiodarone continued. Early this a.m. patient was resting comfortably A. fib rate controlled rate. The patient suddenly converted to A. fib RVR heart rate 150s-160s, acute hypoxemic respiratory failure, requiring intubation. The patient was intubated uneventfully and continues on amiodarone at 0.5 mg/hour, rate now controlled in conjunction with sedation. Cardiology consulted, his insurance adviser is Dr. Reyes X-ray revealed lung consolidation improved, chest x- ray clear. Plan for CPAP trials in a.m.. 11/17: No acute events overnight. Patient had 1 short 8 beat run of V. tach last evening was self resolution, electrolytes within normal limits. The patient continues on amiodarone 0.5 mg/hr. CPAP trials initiated this a.m.. Tube feeds initiated at trickle feeds. Patient converted to sinus rhythm at 2 AM. 11/18 Patient remains sedated and intubated. Afebrile. 11/19 Patient was extubated yesterday however last night he was noted to choke on water provided by the family. Stat ABG demonstrated acute hypercapnic respiratory failure and was emergently intubated. Currently sedated and intubated. 11/20 Patient remains intubated on Fentanyl drip however he si awake and alert. Afebrile. 11/21 Patient is awake and alert placed on CPAP with PS:15, PEEP:5. Afebrile. 11/22 Patient remains intubated , did not tolerate CPAP trials yesterday as he became tachycardic and hypertensive. On no sedation awake and alert. 11/23 No events overnight, off sedation. 11/24: Resting comfortably on mechanical ventilation currently. Daily C Pap trials ongoing. 11/25: Sedated with Precedex, orally intubated on mechanical ventilation. Daily C Pap trials 11/26: Sedated with Precedex, orally intubated on mechanical ventilation. Got tachypneic with CPAP trial today hence placed back on PRVC. Spiked a fever, garcia cultures ordered. Went into A. fib with RVR subsequently for which being initiated on amiodarone bolus followed by drip and Lopressor 5 mg IV every 6 as needed for 11/27: This morning patient developed bradycardia followed by asystole for which she had 3 minutes CPR with ACLS protocol with return of spontaneous circulation. Post code chest x-ray revealed moderate to large right pneumothorax for which a right pigtail catheter was placed by me however despite airleak patient continue have moderate to large pneumothorax hence a second right sided 28 [place] chest tube was placed to -40 cm water pressure. Air leaks 1+ in both pigtail catheter and chest tube. Patient remains in a flutter currently. Dr. reyes evaluated patient as well following cardiac arrest. 11/28: Sedated, arousable, orally intubated on mechanical ventilation. Worsening renal function noted. MDR Pseudomonas in sputum. Right sided chest tube/ pigtail catheter with 1+ air leak in both. Subcutaneous emphysema noted over right side of face neck and right upper extremity. On 50% FiO2, PEEP +5. Poor urine output for which 500 cc and is bolus given earlier. Treated for hyperkalemia with Kayexalate PO, glucose insulin, calcium IV. 11/29: Remains sedated, arousable, orally intubated on mechanical ventilation. A. fib with RVR this morning for which she was loaded with amiodarone and initiated on amiodarone drip. Spiking fever 103.5. ID adjusting antibiotics. Stool for C. difficile ordered as he had some diarrhea today though received Kayexalate yesterday for hyperkalemia. Pigtail catheter on the right side appeared to be dislodged hence this was removed. 28 [place] chest tube in right pleural cavity repositioned. 11/30: Late entry note , patient seen at 12 noon. Creatinine continues to trend upward.Sedated but easily arousable. Objective Vital Signs Date Time Temp Pulse Resp B/P (MAP) Pulse Ox O2 Delivery O2 Flow Rate FiO2 11/30/17 16:06 100 40 11/30/17 16:00 98.9 78 24 101/62 (75) Intake and Output 11/30/17 11/30/17 12/01/17 08:00 16:00 00:00 Intake Total 1817 ml Output Total 145 ml Balance 1672 ml Result Diagram: 11/30/17 0820 11/30/17 0820 Other Results Microbiology Date/Time Source Procedure Growth Status 11/28/17 10:00 Urine Catheterized Urine Urine Culture - Final Nette Glabrata Complete Imaging Last 48 hours Impressions Chest X-Ray 11/29/17 0000 Signed Impressions: Service Date/Time: Wednesday, November 29, 2017 09:58 - CONCLUSION: 1. More cephalad , Lee loop thoracostomy tube is now back out of the pleural space and position in the deep tissues of the upper right hemithorax. The lower, surgical thoracostomy tube has backed out slightly with the side port just on the inside of the chest wall in the pleural space. 2. Stable right-sided pneumothorax measuring 1.3 cm in depth. 3. Stable, extensive deep tissue and subcutaneous emphysematous changes. Stable bibasilar airspace disease. 4. Interval placement of a left IJ central venous catheter with tip projecting over the central venous system. No left-sided pneumothorax. 5. Otherwise, endotracheal and nasogastric tubes are grossly stable in position. Omid Traore MD Renal Ultrasound 11/28/17 0000 Signed Impressions: Service Date/Time: Tuesday, November 28, 2017 20:30 - CONCLUSION: Nondiagnostic exam. Rashad Bose MD Chest X-Ray 11/28/17 0000 Signed Impressions: Service Date/Time: Tuesday, November 28, 2017 02:32 - CONCLUSION: 1. 2 right- sided chest tubes with small right pneumothorax. Extensive subcutaneous air. Mild basilar airspace disease. Tera Gibson MD Chest X-Ray 11/27/17 1745 Signed Impressions: Service Date/Time: Monday, November 27, 2017 17:44 - CONCLUSION: Slight decrease in pneumothorax size. Rashad Bose MD Last Impressions Chest X-Ray 11/21/17 0000 Signed Impressions: Service Date/Time: Tuesday, November 21, 2017 10:03 - CONCLUSION: Left basilar streakiness consistent with atelectasis and/or infiltrate. Hossein Torres MD Objective Remarks GENERAL: Patient is 77 yo intubated SKIN: Warm and dry. HEAD: Normocephalic. Subcutaneous emphysema involving right side of face neck shoulder and arm. EYES: No scleral icterus. No injection or drainage. NECK: Supple, trachea midline. No JVD or lymphadenopathy. CARDIOVASCULAR: S1-S2 irregularly irregular, no gallop or murmur. RESPIRATORY: Orally intubated on mechanical ventilation, air entry decreased over right lung field, scattered rhonchi bilaterally, no wheezing. Right sided chest tube with 2+ airleak. Subcutaneous emphysema or right chest wall, neck, right side of face and right upper extremity. GASTROINTESTINAL: Abdomen soft, non-tender, nondistended. MUSCULOSKELETAL: Bilateral edema Neuro: Awake, orally intubated, on mechanical ventilation, not following commands. A/P Problem List: (1) A-fib ICD Code: I48.91 - Unspecified atrial fibrillation (2) CHF (congestive heart failure) ICD Code: I50.9 - Heart failure, unspecified Status: Chronic (3) HTN (hypertension) ICD Code: I10 - Essential (primary) hypertension Status: Chronic (4) ADRIAN (obstructive sleep apnea) ICD Code: G47.33 - Obstructive sleep apnea (adult) (pediatric) Status: Chronic (5) MRSA pneumonia ICD Code: J15.212 - Pneumonia due to Methicillin resistant Staphylococcus aureus Status: Acute (6) Diabetes mellitus type 2, insulin dependent ICD Code: E11.9 - Type 2 diabetes mellitus without complications; Z79.4 - supervisor intermediates (current) use of insulin Status: Chronic (7) COPD (chronic obstructive pulmonary disease) ICD Code: J44.9 - Chronic obstructive pulmonary disease, unspecified Status: Acute (8) Respiratory distress ICD Code: R06.03 - Acute respiratory distress Status: Acute (9) Leukocytosis ICD Code: D72.829 - Elevated white blood cell count, unspecified Status: Acute (10) Lung consolidation ICD Code: J18.1 - Lobar pneumonia, unspecified organism Status: Acute (11) Anxiety ICD Code: F41.9 - Anxiety disorder, unspecified Status: Chronic Assessment and Plan Plan by systems: Neurologic: Possible Anoxic encephalopathy following cardiac arrest Anxiety disorder Fentanyl for sedation as needed. Follow neuro status. Hold gabapentin 300mmg q HS home med Respiratory: Acute respiratory failure on mechanical ventilation- extubated and reintubated night of 11/18 after he was noted to choke on water provided by family. COPD exacerbation Pneumonia-MRSA Right sided pneumothorax following CPR status post pigtail catheter/chest tube placement 11/27 Obstructive sleep apnea Home O2 dependency Continue with vent support keep sats >92% Bronchodilators, methylprednisolone 40 mg IV daily Pulmonology - Dr Price, Right sided chest tube in place with 1+ air leak. Continue 28 F right chest tube to -40 cm water pressure with underwater seal. Right sided pigtail catheter removed as it appeared to be this last and out of the pleural cavity on chest x-ray on 11/29 Cardiovascular: A. fib RVR Cardiac arrest - asystole, status post CPR 11/27 History of CHF CAD atorvastatin 80 daily at bedtime, metoprolol 50 mg twice a day, Cardizem 60 mg 4 times a day . Eliquis held from 11/27 in view of anticipated procedures. Patient already had 2 chest tubes placed on 11/27. By mouth beta naomy, Cardizem resumed. Amiodarone 150 mg bolus followed by a drip resumed 11/29 due to A. fib with RVR.. Lopressor 2.5 mg IV every 6 hourly as needed for heart rate greater than 130 Cardiology - Dr. Reyes-discussed with Dr. Reyes following cardiac arrest on 11/27 Echo showed EF 65-70% Renal: DAVID Hyperkalemia Monitor renal function, electrolytes replacement per protocol. Treated for hyperkalemia with Kayexalate, glucose insulin and calcium on 11/28. Consulted nephrology and discussed with Dr. Ragland. FEN/GI: Electrolyte derangement GERD Tolerating tube feeds with Jevity 1.5 at goal. Pepcid for GI prophylaxis Replete electrolytes per ICU Heme/ID: Pneumonia MRSA positive-on 10/27 Leukocytosis ID following- Antibiotics per ID (on by mouth Zyvox, IV Levaquin, fluconazole), started on meropenem on 11/28 for MDR Pseudomonas in sputum. Being started on IV micafungin. Stool for C. difficile ordered on 11/29 in view of persistent fever and started on by mouth vancomycin. 11/14 Obtain blood , urine - NGTD 11/16 sputum cultures- Kleb pneumonia 11/26 sputum cultures growing multidrug resistant Pseudomonas/MRSA 11/28 urine culture growing yeast 11/26 blood culture neg Endocrine: Glucose monitoring per ICU protocol-low dose regimen -- SSI(high scale) Levemir increased from 14u Q12 to 25 units every 12 hourly Prophylaxis: GI Prophylaxis Famotidine BID DVT Prophylaxis -- SCDs Held home dose Eliquis 5 mg BID on 11/27 in view of anticipated procedures. Start heparin 5000 units subcutaneously every 8 hourly for DVT prophylaxis on 11/28. Lines: Left IJ central line placed 11/28iscussed with patient's son regarding current clinical status and plan of care at bedside and he voiced understanding and was agreeable. Explained possible need for tracheostomy and PEG tube placement. Plan of care with patient's this morning on 11/29 understanding. Prognosis appears poor. Consulted palliative care to assist with deciding goals of therapy 11/30 updated family on patient's medical status my billing statement This patient remains critically ill with one or more organ systems which are or may become a threat to life. I have spent in excess of 30 minutes discontinuously in the care and management of this patient. This time is exclusive of procedures, and includes, but is not limited to, evaluation of the patient, review of the medical record, discussions with family, consultants, nursing staff, or respiratory therapy, and documentation in the medical record. Physician Lacy Rodriguez Problem Qualifiers (1) COPD (chronic obstructive pulmonary disease): Qualified Codes: J44.9 - Chronic obstructive pulmonary disease, unspecified (2) Leukocytosis: Qualified Codes: D72.829 - Elevated white blood cell count, unspecified Lacy Rodriguez MD Nov 30, 2017 17:51
[2017-11-30] MEDS: ATORVASTATIN 80 MG TAB PO SCH (20:12)
[2017-12-01] VITALS (19 sets, daily range): BP systolic 100–120; BP diastolic 55–66; PULSE 70–91; RESP 19–42; TEMP 98.9–99.8; O2SAT 94–100
[2017-12-01] MEDS: NOREPINEPHRINE-DEXTROSE DRIP 250 ML IV PRN ×2 (01:26→13:53)
[2017-12-01] MEDS: CHLORHEXIDINE GLUCONATE 2 % 1 PACK (2 CLOTHS) TOP SCH ×2 (04:00→19:38)
[2017-12-01] MEDS: INSULIN ASPART SUPPLEMENTAL SCALE SQ SCH ×7 (05:08→23:40)
[2017-12-01] MEDS: SODIUM CHLOR 0.45% 1000 ML INJ 1,000 ML IV SCH ×2 (05:09→16:16)
[2017-12-01] MEDS: MEROPENEM INJ 500 MG in SODIUM CHLORIDE 0.9% INJ 100 ML IV SCH ×2 (05:09→16:07)
[2017-12-01] MEDS: AMIODARONE INJ 450 MG in SODIUM CHLOR 0.9% (EXCEL) INJ 250 ML IV PRN ×2 (05:10→20:35)
[2017-12-01 07:22] LABS: AUTOMATED NEUTROPHIL # 22.9 TH/MM3 (1.8-7.7); BASOPHIL # 0.1 TH/MM3 (0-0.2); BASOPHIL % 0.4 % (0.0-2.0); HEMATOCRIT 35.1 % (39.0-51.0); HEMOGLOBIN 10.9 GM/DL (13.0-17.0); LYMPH % 2.4 % (9.0-44.0); LYMPHOCYTE # 0.6 TH/MM3 (1.0-4.8); MEAN CELL VOLUME 83.7 FL (80.0-100.0); MEAN CORPUSCULAR HEMOGLOBIN 26.1 PG (27.0-34.0); MEAN CORPUSCULAR HGB CONC 31.2 % (32.0-36.0); MONO % 4.2 % (0.0-8.0); PLATELET COUNT 410 TH/MM3 (150-450); RED CELL DISTRIBUTION WIDTH 19.4 % (11.6-17.2); WHITE BLOOD COUNT 24.6 TH/MM3 (4.0-11.0)
[2017-12-01] MEDS: FAMOTIDINE 20 MG TAB PO SCH ×2 (08:06→20:15)
[2017-12-01] MEDS: DILTIAZEM HCL 60 MG TAB PO SCH ×4 (08:06→21:00)
[2017-12-01] MEDS: FLUCONAZOLE 100 MG TAB PO SCH (08:06)
[2017-12-01] MEDS: LINEZOLID 600 MG TAB PO SCH ×2 (08:06→20:16)
[2017-12-01] MEDS: LEVOFLOXACIN 750 MG TAB PO SCH (08:06)
[2017-12-01 08:07] LABS: BICARBONATE 23.7 MEQ/L (21.0-32.0); CALCIUM 6.7 MG/DL (8.5-10.1); CREATININE 4.59 MG/DL (0.60-1.30); MAGNESIUM 2.7 MG/DL (1.5-2.5); PHOSPHORUS 8.5 MG/DL (2.5-4.9)
[2017-12-01] MEDS: BUDESONIDE-FORMOTEROL 160/4.5 MCG INHALER INH SCH ×2 (08:07→20:17)
[2017-12-01] MEDS: DOCUSATE SODIUM 50 MG/SENNA 8.6 MG TAB PO SCH ×2 (08:07→20:15)
[2017-12-01] MEDS: SODIUM CHLORIDE 0.9% FLUSH 10 ML FLUSH IV FLUSH SCH ×2 (08:07→20:15)
[2017-12-01] MEDS: methylPREDNISolone SOD SUCC 40 MG/1 ML VIAL IV PUSH SCH (08:07)
[2017-12-01] MEDS: INSULIN DETEMIR 100 UNITS/ML VIAL SQ SCH ×2 (08:08→20:17)
[2017-12-01] MEDS: HEPARIN SODIUM - SQ 10,000 UNITS/ML VIAL SQ SCH ×2 (08:08→20:17)
[2017-12-01] MEDS: VANCOMYCIN 500 MG VIAL (FOR ORAL USE ONLY) PO SCH (08:21)
[2017-12-01] MEDS: CHLORHEXIDINE 0.12% (ORAL KIT) 15 ML CUP MT SCH ×2 (08:23→20:15)
[2017-12-01 08:26] LABS: CALCIUM-PROTEIN CORRECTED 7.8 MG/DL (8.5-10.1); TOTAL PROTEIN 4.9 GM/DL (6.4-8.2)
[2017-12-01] MEDS: METOPROLOL TARTRATE 50 MG TAB PO SCH ×2 (09:00→20:17)
--- NOTE | 2017-12-01 10:30 | HHI.IDPN ---
Note Infectious Disease Note ID Xcover for 77-year-old, white male who presents to the Emergency Department with shortness of breath. The patient has a history of COPD and CHF. He usually uses CPAP at the assisted living facility. He was noted to have been developing coughing and shortness of breath over the past couple of days, and his states that he was coughing a lot yesterday and bringing up mostly phlegm and that he was restless and could not sleep. Recently treated at [facility] for pneumonia due to methicillin-resistant Staphylococcus aureus. His states that he was still on the oral antibiotic for pneumonia and that he has 2 more days of the medication to complete therapy with Zyvox. Overnight events reviewed. Temps better BP ok, not on pressors UO low. Cr increasing. Possible need for HD. Nephrology on case. 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 BC negative No central line Has a Haynes PAST MEDICAL HISTORY: COPD, CHF, atrial fibrillation, insulin-dependent diabetes mellitus, hypertension, hyperlipidemia, gastroesophageal reflux, gastroparesis, iron deficiency anemia, oxygen-dependent. PAST SURGICAL HISTORY: Right knee surgery, right carpal tunnel release, cardiac ablation treatment 2002. ALLERGIES: ASPIRIN, CODEINE. Current Medications Current Medications Medications (Trade) Dose Ordered Sig/Yani Route Start Time Stop Time Status Last Admin (NS Flush) 2 ml UNSCH PRN IV FLUSH 11/14/17 15:45 11/17/17 14:05 (NS Flush) 2 ml BID IV FLUSH 11/14/17 21:00 12/01/17 08:07 (Tylenol) 650 mg Q6H PRN PO 11/14/17 15:45 11/29/17 11:01 (Zofran Inj) 4 mg Q6H PRN IV PUSH 11/14/17 15:45 11/18/17 16:03 Miscellaneous Information 1 Q361D XX 11/14/17 15:45 11/14/17 15:45 (Chlorhexidine 2% Cloth) Taper DAILY@04 TOP 11/15/17 04:00 11/11/18 03:59 11/29/17 04:00 (Chlorhexidine 2% Cloth) 3 pack UNSCH PRN TOP 11/14/17 15:45 (Ricarda-Colace) 1 tab BID PO 11/14/17 21:00 11/29/17 10:55 (Milk Of Magnesia Liq) 30 ml Q12H PRN PO 11/14/17 15:45 (Senokot) 17.2 mg Q12H PRN PO 11/14/17 15:45 (Dulcolax Supp) 10 mg DAILY PRN RECTAL 11/14/17 15:45 (Lactulose Liq) 30 ml DAILY PRN PO 11/14/17 15:45 (Eliquis) 5 mg BID PO 11/14/17 21:00 Future Hold 11/27/17 20:17 (Lipitor) 80 mg HS PO 11/14/17 21:00 11/30/17 20:12 (Lanoxin) 0.125 mg DAILY PO 11/15/17 09:00 Future Hold 11/17/17 08:24 (Cardizem) 60 mg QID PO 11/14/17 18:00 12/01/17 08:06 (Lopressor) 50 mg BID PO 11/14/17 21:00 11/30/17 20:23 Patient Own Medication PT OWN MED: Mometas... HS INH 11/14/17 21:00 Future Hold (Apresoline Inj) 20 mg Q4H PRN IV PUSH 11/17/17 12:00 11/22/17 07:38 (SoluMEDROL INJ) 40 mg DAILY IV PUSH 11/19/17 09:00 12/01/17 08:07 (Symbicort 160-4.5 Mcg Inh) 2 puff Q12HR INH 11/18/17 21:00 11/28/17 20:33 (Peridex 0.12% Liq) 15 ml BID@08,20 MT 11/19/17 08:00 12/01/17 08:23 (Duoneb Neb) 1 ampule Q2HR NEB PRN INH 11/18/17 22:30 11/26/17 03:13 (Pepcid) 10 mg BID PO 11/22/17 21:00 12/01/17 08:06 Dexmedetomidine HCl 1000 mcg/ Sodium Chloride 250 ml @ 5.05 mls/hr TITRATE PRN IV 11/23/17 22:45 11/26/17 20:30 (Levemir Inj) 25 units Q12HR SQ 11/26/17 21:00 12/01/17 08:08 (NovoLOG SUPPLEMENTAL SCALE) 1 Q4HR SQ 11/26/17 16:00 12/01/17 05:08 (D50w (Vial) Inj) 25 ml UNSCH PRN IV 11/26/17 15:30 (Glucagon Inj) 1 mg UNSCH PRN IM/SQ 11/26/17 15:30 (Levaquin) 750 mg Q48H PO 11/27/17 09:30 12/01/17 08:06 (Zyvox) 600 mg Q12HR PO 11/27/17 09:30 12/01/17 08:06 (Diflucan) 100 mg DAILY PO 11/27/17 09:30 12/01/17 08:06 Fentanyl Citrate 250 ml @ 5 mls/hr TITRATE PRN IV 11/27/17 13:45 11/29/17 01:17 Meropenem 500 mg/ Sodium Chloride 100 ml @ 200 mls/hr Q12H IV 11/28/17 17:00 12/01/17 05:09 (Heparin Inj) 5,000 units Q12HR SQ 11/28/17 21:00 12/01/17 08:08 (Lopressor Inj) 5 mg Q6H PRN IV PUSH 11/29/17 09:15 Amiodarone HCl 450 mg/Sodium Chloride 259 ml @ 33.33 mls/ hr Q7H47M PRN IV 11/29/17 07:39 12/01/17 05:10 Micafungin Sodium 150 mg/Sodium Chloride 100 ml @ 100 mls/hr Q24H IV 11/29/17 18:00 11/30/17 17:48 (VANCOMYCIN for oral use only) 125 mg QID PO 11/29/17 18:00 12/01/17 08:21 Sodium Chloride 1,000 ml @ 84 mls/hr [id number] IV 11/29/17 17:00 12/01/17 05:09 Norepinephrine Bitartrate 250 ml @ 7.5 mls/hr TITRATE PRN IV 11/30/17 04:15 12/01/17 01:26 (Brethine Inj) 1 mg UNSCH PRN SQ 11/30/17 04:15 OBJECTIVE: Vital Signs Date Time Temp Pulse Resp B/P (MAP) Pulse Ox O2 Delivery O2 Flow Rate FiO2 12/01/17 10:00 75 12/01/17 09:49 99.1 12/01/17 08:00 91 12/01/17 08:00 99.4 91 30 100/59 (73) 100 12/01/17 08:00 35 12/01/17 08:00 91 100/59 12/01/17 08:00 91 100/59 12/01/17 07:48 99 35 12/01/17 06:00 84 12/01/17 05:10 86 107/64 12/01/17 04:00 83 12/01/17 04:00 98.9 83 19 108/61 (77) 100 12/01/17 04:00 40 12/01/17 03:59 100 40 12/01/17 02:00 81 12/01/17 01:26 83 107/57 12/01/17 00:28 98 40 12/01/17 00:00 72 12/01/17 00:00 99.8 72 24 101/65 (77) 100 12/01/17 00:00 40 11/30/17 22:00 65 11/30/17 20:00 86 11/30/17 20:00 40 11/30/17 20:00 99.8 86 24 116/66 (83) 100 11/30/17 19:52 98 40 11/30/17 18:00 84 11/30/17 16:06 100 40 11/30/17 16:00 98.9 78 24 101/62 (75) 99 11/30/17 16:00 80 11/30/17 16:00 40 11/30/17 14:00 91 11/30/17 13:12 92 40 11/30/17 12:30 72 73/51 11/30/17 12:00 79 11/30/17 12:00 99.6 79 11 94/58 (70) 100 11/30/17 12:00 40 11/30/17 11:30 108 115/65 Laboratory Tests Test 11/29/17 16:00 11/30/17 08:20 12/01/17 07:05 White Blood Count 21.4 TH/MM3 22.0 TH/MM3 24.6 TH/MM3 Red Blood Count 4.23 MIL/MM3 4.22 MIL/MM3 4.20 MIL/MM3 Hemoglobin 11.1 GM/DL 11.0 GM/DL 10.9 GM/DL Hematocrit 35.6 % 35.9 % 35.1 % Mean Corpuscular Volume 84.3 FL 85.2 FL 83.7 FL Mean Corpuscular Hemoglobin 26.1 PG 26.1 PG 26.1 PG Mean Corpuscular Hemoglobin Concent 31.0 % 30.6 % 31.2 % Red Cell Distribution Width 19.0 % 19.6 % 19.4 % Platelet Count 459 TH/MM3 423 TH/MM3 410 TH/MM3 Mean Platelet Volume 10.2 FL 10.2 FL 10.0 FL Neutrophils (%) (Auto) 94.3 % 89.2 % 93.0 % Lymphocytes (%) (Auto) 2.2 % 4.4 % 2.4 % Monocytes (%) (Auto) 3.4 % 6.4 % 4.2 % Eosinophils (%) (Auto) 0.0 % 0.0 % 0.0 % Basophils (%) (Auto) 0.1 % 0.0 % 0.4 % Neutrophils # (Auto) 20.2 TH/MM3 19.6 TH/MM3 22.9 TH/MM3 Lymphocytes # (Auto) 0.5 TH/MM3 1.0 TH/MM3 0.6 TH/MM3 Monocytes # (Auto) 0.7 TH/MM3 1.4 TH/MM3 1.0 TH/MM3 Eosinophils # (Auto) 0.0 TH/MM3 0.0 TH/MM3 0.0 TH/MM3 Basophils # (Auto) 0.0 TH/MM3 0.0 TH/MM3 0.1 TH/MM3 CBC Comment DIFF FINAL DIFF FINAL DIFF FINAL Differential Comment Microbiology Date/Time Source Procedure Growth Status 11/29/17 18:50 Blood Peripheral Aerobic Blood Culture - Preliminary NO GROWTH IN 1 DAY Resulted 11/29/17 18:50 Blood Peripheral Anaerobic Blood Culture - Preliminary NO GROWTH IN 1 DAY Resulted 11/26/17 14:05 Sputum Endotracheal Gram Stain - Final Complete 11/26/17 14:05 Sputum Culture - Final Pseudomonas Aeruginosa Multi-Drug Resistant S. Aureus Mrsa Complete 11/28/17 10:00 Urine Catheterized Urine Urine Culture - Final Nette Glabrata Complete IMAGING Last Impressions Lower Extremity Ultrasound 11/29/17 0000 Signed Impressions: Service Date/Time: Wednesday, November 29, 2017 22:02 - CONCLUSION: Normal examination. Abdiel Mcintyre MD Chest X-Ray 11/29/17 0000 Signed Impressions: Service Date/Time: Wednesday, November 29, 2017 17:30 - CONCLUSION: No definite evidence of pneumothorax status post repositioning of right chest tube. Shaq Eisenberg MD Renal Ultrasound 11/28/17 0000 Signed Impressions: Service Date/Time: Tuesday, November 28, 2017 20:30 - CONCLUSION: Nondiagnostic exam. Rashad Bose MD PHYSICAL EXAMINATION: GENERAL: Awake, following commands, on the vent SKIN: Cool and moist, no generalized rash HEENT: [place] conjunctivae, no petechia, no scleral icterus. He is orally intubated NECK: No swelling or adenopathy. LUNGS: Coarse breath sounds bilaterally. [address] HEART: Irregular rate and rhythm ABDOMEN: Bowel sounds present, but diminished; obese, soft. No tenderness EXTREMITIES: Bilateral pitting pedal edema of the lower extremities, bilateral. No clubbing or cyanosis. NEUROLOGIC: Nonfocal. PSYCHIATRIC: Calm and cooperative. LINE: No evidence of infection : Haynes in place with some sediment IMPRESSION: Probable sepsis. Pneumonia gram-negative. Pseudomonas MDR. C.glabrata UTI Right side Pneumothorax with subq emphysema. Acute respiratory failure. Extubated and reintubated appears to have aspirated. Leukocytosis: infection, steroids. Acute COPD exacerbation. Renal insufficiency, worsening RECOMMENDATIONS: Continue Meropenem IV. Continue Zyvox oral Continue Diflucan increase dose for C.glabrata UTI. If fevers recurr will consider restarting Micafungin (Micafungin not first line for UTI) No fungemia will DC Micafungin IV. DC Levaquin DC Vanco oral. Follow cultures Follow clinically Discussed with RN D/w Pam Holt MD Dec 01, 2017 10:30
--- NOTE | 2017-12-01 14:47 | HHI.CCPN ---
Subjective Remarks/Hospital Course This is a 77-year-old male with a medical history significant for COPD, CHF, A. fib, diabetes, that presented to emergency department from [facility] for evaluation of worsening shortness of breath over the last 3 days. The patient was been given Solu-Medrol 125 mg and 2 albuterol treatments enroute to ED. Upon presentation to the ED the patient was on a nonrebreather. He was tachypneic and tachycardic. Patient's medical history significant for MRSA pneumonia previously admitted on 10/27/16 for approximately 12 days at [facility]. The patient is normally on 2.5 L/m nasal cannula O2 home dependency, and he lives with ( normally) a PCO2 in the 80s according to his . Patient was then discharged to [facility], and then transferred to [facility] for rehabilitation. He has been on an unknown antibiotic per the family and steroids for the last 3 days. Laboratory and imaging studies were performed with noted elevation in CO2 The patient was given empiric antibiotics in the ED and placed on BiPAP. Critical care medicine was consulted. Subjective: 11/15: Patient maintained on BiPAP throughout the night O2 saturations 97-98% on FiO2 of 0.40. Hemodynamically stable. Attempts made to wean patient to nasal cannula this a.m. unsuccessful, patient's O2 saturation in the 70s, patient placed back on BiPAP. Chest x-ray pending WBC count significantly diminished, leukocytosis resolved. Patient extremely anxious, Precedex infusion initiated. 11/16: Late entry note. Patient seen 10 AM. Overnight the patient converted to A. fib RVR, despite being on Cardizem 4 times a day and metoprolol twice a day- home medications, the patient received IV Cardizem followed by amiodarone infusion. Per report the patient became hypotensive, Cardizem discontinued. Amiodarone continued. Early this a.m. patient was resting comfortably A. fib rate controlled rate. The patient suddenly converted to A. fib RVR heart rate 150s-160s, acute hypoxemic respiratory failure, requiring intubation. The patient was intubated uneventfully and continues on amiodarone at 0.5 mg/hour, rate now controlled in conjunction with sedation. Cardiology consulted, his settlement technician is Dr. Reyes X-ray revealed lung consolidation improved, chest x- ray clear. Plan for CPAP trials in a.m.. 11/17: No acute events overnight. Patient had 1 short 8 beat run of V. tach last evening was self resolution, electrolytes within normal limits. The patient continues on amiodarone 0.5 mg/hr. CPAP trials initiated this a.m.. Tube feeds initiated at trickle feeds. Patient converted to sinus rhythm at 2 AM. 11/18 Patient remains sedated and intubated. Afebrile. 11/19 Patient was extubated yesterday however last night he was noted to choke on water provided by the family. Stat ABG demonstrated acute hypercapnic respiratory failure and was emergently intubated. Currently sedated and intubated. 11/20 Patient remains intubated on Fentanyl drip however he si awake and alert. Afebrile. 11/21 Patient is awake and alert placed on CPAP with PS:15, PEEP:5. Afebrile. 11/22 Patient remains intubated , did not tolerate CPAP trials yesterday as he became tachycardic and hypertensive. On no sedation awake and alert. 11/23 No events overnight, off sedation. 11/24: Resting comfortably on mechanical ventilation currently. Daily C Pap trials ongoing. 11/25: Sedated with Precedex, orally intubated on mechanical ventilation. Daily C Pap trials 11/26: Sedated with Precedex, orally intubated on mechanical ventilation. Got tachypneic with CPAP trial today hence placed back on PRVC. Spiked a fever, garcia cultures ordered. Went into A. fib with RVR subsequently for which being initiated on amiodarone bolus followed by drip and Lopressor 5 mg IV every 6 as needed for 11/27: This morning patient developed bradycardia followed by asystole for which she had 3 minutes CPR with ACLS protocol with return of spontaneous circulation. Post code chest x-ray revealed moderate to large right pneumothorax for which a right pigtail catheter was placed by me however despite airleak patient continue have moderate to large pneumothorax hence a second right sided 28 [place] chest tube was placed to -40 cm water pressure. Air leaks 1+ in both pigtail catheter and chest tube. Patient remains in a flutter currently. Dr. reyes evaluated patient as well following cardiac arrest. 11/28: Sedated, arousable, orally intubated on mechanical ventilation. Worsening renal function noted. MDR Pseudomonas in sputum. Right sided chest tube/ pigtail catheter with 1+ air leak in both. Subcutaneous emphysema noted over right side of face neck and right upper extremity. On 50% FiO2, PEEP +5. Poor urine output for which 500 cc and is bolus given earlier. Treated for hyperkalemia with Kayexalate PO, glucose insulin, calcium IV. 11/29: Remains sedated, arousable, orally intubated on mechanical ventilation. A. fib with RVR this morning for which she was loaded with amiodarone and initiated on amiodarone drip. Spiking fever 103.5. ID adjusting antibiotics. Stool for C. difficile ordered as he had some diarrhea today though received Kayexalate yesterday for hyperkalemia. Pigtail catheter on the right side appeared to be dislodged hence this was removed. 28 [place] chest tube in right pleural cavity repositioned. 11/30: Late entry note , patient seen at 12 noon. Creatinine continues to trend upward.Sedated but easily arousable. 12/01: Patient lightly sedated, following commands this a.m.. Creatinine noted increased, possible dialysis consideration for tomorrow. Patient to be diuresed today. CPAP trial initiated failed after 5 minutes, repeat this afternoon. Objective Vital Signs Date Time Temp Pulse Resp B/P (MAP) Pulse Ox O2 Delivery O2 Flow Rate FiO2 12/01/17 14:00 70 12/01/17 13:53 113/57 12/01/17 12:00 98.9 25 98 12/01/17 12:00 35 Intake and Output 12/01/17 12/01/17 12/02/17 08:00 16:00 00:00 Intake Total 2298 ml Output Total 110 ml Balance 2188 ml Result Diagram: 12/01/17 0705 12/01/17 0705 Imaging Last 48 hours Impressions Chest X-Ray 11/29/17 0000 Signed Impressions: Service Date/Time: Wednesday, November 29, 2017 09:58 - CONCLUSION: 1. More cephalad , Veblen loop thoracostomy tube is now back out of the pleural space and position in the deep tissues of the upper right hemithorax. The lower, surgical thoracostomy tube has backed out slightly with the side port just on the inside of the chest wall in the pleural space. 2. Stable right-sided pneumothorax measuring 1.3 cm in depth. 3. Stable, extensive deep tissue and subcutaneous emphysematous changes. Stable bibasilar airspace disease. 4. Interval placement of a left IJ central venous catheter with tip projecting over the central venous system. No left-sided pneumothorax. 5. Otherwise, endotracheal and nasogastric tubes are grossly stable in position. Omid Traore MD Renal Ultrasound 11/28/17 0000 Signed Impressions: Service Date/Time: Tuesday, November 28, 2017 20:30 - CONCLUSION: Nondiagnostic exam. Rashad Bose MD Chest X-Ray 11/28/17 0000 Signed Impressions: Service Date/Time: Tuesday, November 28, 2017 02:32 - CONCLUSION: 1. 2 right- sided chest tubes with small right pneumothorax. Extensive subcutaneous air. Mild basilar airspace disease. Tera Gibson MD Chest X-Ray 11/27/17 1745 Signed Impressions: Service Date/Time: Monday, November 27, 2017 17:44 - CONCLUSION: Slight decrease in pneumothorax size. Rashad Bose MD Last Impressions Chest X-Ray 11/21/17 0000 Signed Impressions: Service Date/Time: Tuesday, November 21, 2017 10:03 - CONCLUSION: Left basilar streakiness consistent with atelectasis and/or infiltrate. Hossein Torres MD Objective Remarks GENERAL: Patient is 77 yo intubated awake nodding yes and no to questions SKIN: Warm and dry. HEAD: Normocephalic. Subcutaneous emphysema involving right side of face neck shoulder and arm. EYES: No scleral icterus. No injection or drainage. NECK: Supple, trachea midline. No JVD or lymphadenopathy. CARDIOVASCULAR: S1-S2 irregularly irregular, no gallop or murmur. RESPIRATORY: Orally intubated on mechanical ventilation, air entry decreased over right lung field, scattered rhonchi bilaterally, no wheezing. Right sided chest tube with 1+ airleak. Subcutaneous emphysema or right chest wall, neck, right side of face and right upper extremity. GASTROINTESTINAL: Abdomen soft, non-tender, nondistended. MUSCULOSKELETAL: Bilateral peripheral edema Neuro: Awake, orally intubated, on mechanical ventilation, following commands moves extremities 4 A/P Problem List: (1) A-fib ICD Code: I48.91 - Unspecified atrial fibrillation (2) CHF (congestive heart failure) ICD Code: I50.9 - Heart failure, unspecified Status: Chronic (3) HTN (hypertension) ICD Code: I10 - Essential (primary) hypertension Status: Chronic (4) ADRIAN (obstructive sleep apnea) ICD Code: G47.33 - Obstructive sleep apnea (adult) (pediatric) Status: Chronic (5) MRSA pneumonia ICD Code: J15.212 - Pneumonia due to Methicillin resistant Staphylococcus aureus Status: Acute (6) Diabetes mellitus type 2, insulin dependent ICD Code: E11.9 - Type 2 diabetes mellitus without complications; Z79.4 - correction (current) use of insulin Status: Chronic (7) COPD (chronic obstructive pulmonary disease) ICD Code: J44.9 - Chronic obstructive pulmonary disease, unspecified Status: Acute (8) Respiratory distress ICD Code: R06.03 - Acute respiratory distress Status: Acute (9) Leukocytosis ICD Code: D72.829 - Elevated white blood cell count, unspecified Status: Acute (10) Lung consolidation ICD Code: J18.1 - Lobar pneumonia, unspecified organism Status: Acute (11) Anxiety ICD Code: F41.9 - Anxiety disorder, unspecified Status: Chronic Assessment and Plan Plan by systems: Neurologic: Possible Anoxic encephalopathy following cardiac arrest Anxiety disorder Fentanyl for sedation as needed. Follow neuro status. Hold gabapentin 300mmg q HS home med 12/01-patient following commands, moving extremities 4 Respiratory: Acute respiratory failure on mechanical ventilation- extubated and reintubated night of 11/18 after he was noted to choke on water provided by family. COPD exacerbation Pneumonia-MRSA Right sided pneumothorax following CPR status post pigtail catheter/chest tube placement 11/27 Obstructive sleep apnea Home O2 dependency Continue with vent support keep sats >92% Bronchodilators, methylprednisolone 40 mg IV daily Pulmonology - Dr Price, Right sided chest tube in place with 1+ air leak. Continue 28 F right chest tube to -40 cm water pressure with underwater seal. Right sided pigtail catheter removed as it appeared to be this last and out of the pleural cavity on chest x-ray on 11/29 Repeat chest x-ray Cardiovascular: A. fib RVR Cardiac arrest - asystole, status post CPR 11/27 History of CHF CAD atorvastatin 80 daily at bedtime, metoprolol 50 mg twice a day, Cardizem 60 mg 4 times a day . Eliquis held from 11/27 in view of anticipated procedures. Patient already had 2 chest tubes placed on 11/27. By mouth beta naomy, Cardizem resumed. Amiodarone 150 mg bolus followed by a drip resumed 11/29 due to A. fib with RVR.. Lopressor 2.5 mg IV every 6 hourly as needed for heart rate greater than 130 Cardiology - Dr. Reyes-discussed with Dr. Reyes following cardiac arrest on 11/27 Echo showed EF 65-70% Patient continues on amiodarone infusion, plan transition to PO, deferred to cardiology Renal: DAVID Hyperkalemia Monitor renal function, electrolytes replacement per protocol. Treated for hyperkalemia with Kayexalate, glucose insulin and calcium on 11/28. Consulted nephrology and discussed with Dr. Ragland. FEN/GI: Electrolyte derangement GERD Tolerating tube feeds with Jevity 1.5 at goal. Pepcid for GI prophylaxis Replete electrolytes per ICU Heme/ID: Pneumonia MRSA positive-on 10/27 Leukocytosis ID following- Antibiotics per ID (on by mouth Zyvox, IV Levaquin, fluconazole), started on meropenem on 11/28 for MDR Pseudomonas in sputum. Being started on IV micafungin. Stool for C. difficile ordered on 11/29 in view of persistent fever and started on by mouth vancomycin. 11/14 Obtain blood , urine - NGTD 11/16 sputum cultures- Kleb pneumonia 11/26 sputum cultures growing multidrug resistant Pseudomonas/MRSA 11/28 urine culture growing yeast 11/26 blood culture neg Endocrine: Glucose monitoring per ICU protocol-low dose regimen -- SSI(high scale) Levemir increased from 14u Q12 to 25 units every 12 hourly Prophylaxis: GI Prophylaxis Famotidine BID DVT Prophylaxis -- SCDs Held home dose Eliquis 5 mg BID on 11/27 in view of anticipated procedures. Start heparin 5000 units subcutaneously every 8 hourly for DVT prophylaxis on 11/28. Lines: Left IJ central line placed 11/28iscussed with patient's son regarding current clinical status and plan of care at bedside and he voiced understanding and was agreeable. Explained possible need for tracheostomy and PEG tube placement. Plan of care with patient's this morning on 11/29 understanding. Prognosis appears poor. Consulted palliative care to assist with deciding goals of therapy 4/4 updated family on patient's medical status my billing statement This patient remains critically ill with one or more organ systems which are or may become a threat to life. I have spent in excess of 36 minutes discontinuously in the care and management of this patient. This time is exclusive of procedures, and includes, but is not limited to, evaluation of the patient, review of the medical record, discussions with family, consultants, nursing staff, or respiratory therapy, and documentation in the medical record. Physician Lacy Rodriguez Problem Qualifiers (1) COPD (chronic obstructive pulmonary disease): Qualified Codes: J44.9 - Chronic obstructive pulmonary disease, unspecified (2) Leukocytosis: Qualified Codes: D72.829 - Elevated white blood cell count, unspecified Lacy Rodriguez MD Dec 01, 2017 14:47
--- NOTE | 2017-12-01 15:28 | PD.CARD.PN ---
Subjective Subjective Remarks A fib stable rate. Renal function worsening. Will D/C IV amio and switch to 200 mg p.o. daily Objective Medications Current Medications Medications (Trade) Dose Ordered Sig/Yani Route Start Time Stop Time Status Last Admin (NS Flush) 2 ml UNSCH PRN IV FLUSH 11/14/17 15:45 11/17/17 14:05 (NS Flush) 2 ml BID IV FLUSH 11/14/17 21:00 12/01/17 08:07 (Tylenol) 650 mg Q6H PRN PO 11/14/17 15:45 11/29/17 11:01 (Zofran Inj) 4 mg Q6H PRN IV PUSH 11/14/17 15:45 11/18/17 16:03 Miscellaneous Information 1 Q361D XX 11/14/17 15:45 11/14/17 15:45 (Chlorhexidine 2% Cloth) Taper DAILY@04 TOP 11/15/17 04:00 11/11/18 03:59 11/29/17 04:00 (Chlorhexidine 2% Cloth) 3 pack UNSCH PRN TOP 11/14/17 15:45 (Ricarda-Colace) 1 tab BID PO 11/14/17 21:00 11/29/17 10:55 (Milk Of Magnesia Liq) 30 ml Q12H PRN PO 11/14/17 15:45 (Senokot) 17.2 mg Q12H PRN PO 11/14/17 15:45 (Dulcolax Supp) 10 mg DAILY PRN RECTAL 11/14/17 15:45 (Lactulose Liq) 30 ml DAILY PRN PO 11/14/17 15:45 (Eliquis) 5 mg BID PO 11/14/17 21:00 Future Hold 11/27/17 20:17 (Lipitor) 80 mg HS PO 11/14/17 21:00 11/30/17 20:12 (Lanoxin) 0.125 mg DAILY PO 11/15/17 09:00 Future Hold 11/17/17 08:24 (Cardizem) 60 mg QID PO 11/14/17 18:00 12/01/17 12:55 (Lopressor) 50 mg BID PO 11/14/17 21:00 11/30/17 20:23 Patient Own Medication PT OWN MED: [facility]... HS INH 11/14/17 21:00 Future Hold (Apresoline Inj) 20 mg Q4H PRN IV PUSH 11/17/17 12:00 11/22/17 07:38 (SoluMEDROL INJ) 40 mg DAILY IV PUSH 11/19/17 09:00 12/01/17 08:07 (Symbicort 160-4.5 Mcg Inh) 2 puff Q12HR INH 11/18/17 21:00 11/28/17 20:33 (Peridex 0.12% Liq) 15 ml BID@08,20 MT 11/19/17 08:00 12/01/17 08:23 (Duoneb Neb) 1 ampule Q2HR NEB PRN INH 11/18/17 22:30 11/26/17 03:13 (Pepcid) 10 mg BID PO 11/22/17 21:00 12/01/17 08:06 Dexmedetomidine HCl 1000 mcg/ Sodium Chloride 250 ml @ 5.05 mls/hr TITRATE PRN IV 11/23/17 22:45 11/26/17 20:30 (Levemir Inj) 25 units Q12HR SQ 11/26/17 21:00 12/01/17 08:08 (NovoLOG SUPPLEMENTAL SCALE) 1 Q4HR SQ 11/26/17 16:00 12/01/17 12:00 (D50w (Vial) Inj) 25 ml UNSCH PRN IV 11/26/17 15:30 (Glucagon Inj) 1 mg UNSCH PRN IM/SQ 11/26/17 15:30 (Zyvox) 600 mg Q12HR PO 11/27/17 09:30 12/01/17 08:06 Fentanyl Citrate 250 ml @ 5 mls/hr TITRATE PRN IV 11/27/17 13:45 11/29/17 01:17 Meropenem 500 mg/ Sodium Chloride 100 ml @ 200 mls/hr Q12H IV 11/28/17 17:00 12/01/17 05:09 (Heparin Inj) 5,000 units Q12HR SQ 11/28/17 21:00 12/01/17 08:08 (Lopressor Inj) 5 mg Q6H PRN IV PUSH 11/29/17 09:15 Amiodarone HCl 450 mg/Sodium Chloride 259 ml @ 33.33 mls/ hr Q7H47M PRN IV 11/29/17 07:39 12/01/17 05:10 Sodium Chloride 1,000 ml @ 84 mls/hr [id number] IV 11/29/17 17:00 12/01/17 05:09 Norepinephrine Bitartrate 250 ml @ 7.5 mls/hr TITRATE PRN IV 11/30/17 04:15 12/01/17 13:53 (Brethine Inj) 1 mg UNSCH PRN SQ 11/30/17 04:15 (Diflucan) 400 mg DAILY PO 12/02/17 09:00 Vital Signs / I&O Vital Signs Date Time Temp Pulse Resp B/P (MAP) Pulse Ox O2 Delivery O2 Flow Rate FiO2 12/01/17 14:45 75 110/64 12/01/17 14:00 70 12/01/17 13:53 76 113/57 12/01/17 12:00 72 12/01/17 12:00 98.9 72 25 107/59 (75) 98 12/01/17 12:00 35 12/01/17 11:34 97 35 12/01/17 10:00 75 12/01/17 09:49 99.1 12/01/17 08:00 91 12/01/17 08:00 99.4 91 30 100/59 (73) 100 12/01/17 08:00 35 12/01/17 08:00 91 100/59 12/01/17 08:00 91 100/59 12/01/17 07:48 99 35 12/01/17 06:00 84 12/01/17 05:10 86 107/64 12/01/17 04:00 83 12/01/17 04:00 98.9 83 19 108/61 (77) 100 12/01/17 04:00 40 12/01/17 03:59 100 40 12/01/17 02:00 81 12/01/17 01:26 83 107/57 12/01/17 00:28 98 40 12/01/17 00:00 72 12/01/17 00:00 99.8 72 24 101/65 (77) 100 12/01/17 00:00 40 11/30/17 22:00 65 11/30/17 20:00 86 11/30/17 20:00 40 11/30/17 20:00 99.8 86 24 116/66 (83) 100 11/30/17 19:52 98 40 11/30/17 18:00 84 11/30/17 16:06 100 40 11/30/17 16:00 98.9 78 24 101/62 (75) 99 11/30/17 16:00 80 11/30/17 16:00 40 I/O 11/30/17 11/30/17 11/30/17 12/01/17 12/01/17 12/01/17 07:00 15:00 23:00 07:00 15:00 23:00 Intake Total 1817 ml 729 ml 2214 ml 84 ml Output Total 145 ml 561 ml 110 ml Balance 1672 ml 168 ml 2104 ml 84 ml IV Total 1313 ml 200 ml 1609 ml 84 ml Tube Feeding 474 ml 489 ml 605 ml Other 30 ml 40 ml Output Urine Total 125 ml 35 ml 50 ml Chest Tube Drainage Total 20 ml 40 ml 60 ml Hemodialysis 486 ml # Bowel Movements 5 2 3 Laboratory Laboratory Tests Test 12/01/17 07:05 White Blood Count 24.6 TH/MM3 Red Blood Count 4.20 MIL/MM3 Hemoglobin 10.9 GM/DL Hematocrit 35.1 % Mean Corpuscular Volume 83.7 FL Mean Corpuscular Hemoglobin 26.1 PG Mean Corpuscular Hemoglobin Concent 31.2 % Red Cell Distribution Width 19.4 % Platelet Count 410 TH/MM3 Mean Platelet Volume 10.0 FL Neutrophils (%) (Auto) 93.0 % Lymphocytes (%) (Auto) 2.4 % Monocytes (%) (Auto) 4.2 % Eosinophils (%) (Auto) 0.0 % Basophils (%) (Auto) 0.4 % Neutrophils # (Auto) 22.9 TH/MM3 Lymphocytes # (Auto) 0.6 TH/MM3 Monocytes # (Auto) 1.0 TH/MM3 Eosinophils # (Auto) 0.0 TH/MM3 Basophils # (Auto) 0.1 TH/MM3 CBC Comment DIFF FINAL Differential Comment Blood Urea Nitrogen 130 MG/DL Creatinine 4.59 MG/DL Random Glucose 200 MG/DL Total Protein 4.9 GM/DL Calcium Level 6.7 MG/DL Phosphorus Level 8.5 MG/DL Magnesium Level 2.7 MG/DL Sodium Level 146 MEQ/L Potassium Level 3.8 MEQ/L Chloride Level 108 MEQ/L Carbon Dioxide Level 23.7 MEQ/L Anion Gap 14 MEQ/L Estimat Glomerular Filtration Rate 12 ML/MIN Protein Corrected Calcium 7.8 MG/DL Brendon Wyatt MD Dec 01, 2017 15:28
--- NOTE | 2017-12-01 15:58 | RADRPT ---
EXAM DATE/TIME: 12/01/2017 15:04 [facility] COMPARISON: CHEST SINGLE AP, November 29, 2017, 17:30. INDICATIONS : Respiratory failure MEDICAL HISTORY : Congestive heart failure. Hypertension Chronic obstructive pulmonary disease. atrial fibrillation , MRSA, BPH, Diabetes SURGICAL HISTORY : cardiac ablation ENCOUNTER: Initial ACUITY: 2 weeks PAIN SCORE: Non-responsive. LOCATION: Bilateral chest FINDINGS: ET tube tip well above the toña. Gastric tube traverses the [id number]. Left internal jugular catheter tip projects in the mid superior vena cava. Right chest 2 in the lateral right chest. Ther e is a small residual right apical pneumothorax measuring between 5 and 8 mm. Blunting of the costop hrenic angles bilaterally characteristic of pleural effusions. The heart is normal size. Diffuse murray bcutaneous emphysema about the chest wall and supraclavicular region. CONCLUSION: Residual 8mm right apical pneumothorax with right chest tube in place. Bilateral pleural effusions. Shaq Eisenberg MD on December 01, 2017 at 15:54 Board Certified Radiologist. This report was verified electronically.
[2017-12-01] MEDS ORDERED: FUROSEMIDE INJ 100 MG in SODIUM CHLORIDE 0.9% INJ 90 ML IV SCH (16:15)
--- NOTE | 2017-12-01 16:15 | HHI.NPPN ---
Subjective Renal Failure: Acute History of Present Illness This is a 77-year-old male with past medical history of ischemic heart disease, atrial fibrillation, congestive heart failure, possibly diastolic dysfunction, diabetes mellitus, chronic obstructive pulmonary disease, was admitted on 11/14 with respiratory distress. Nephrology was called to see the patient because of elevated BUN and creatinine. The patient has creatinine of 1.1 on admission, which increased after 2 or 3 to 1.3-1.5 and for the last 2 days, it has been going up and now it is 2.8. The patient was initially diagnosed with pneumonia and was started on antibiotics and then later on, patient developed respiratory failure and was intubated. He was also found to have asystole on 11/27 for 3 minutes and CPR was done with ACLS protocol, and it was shown that he has large right-sided pneumothorax. The blood pressure has been stable and there are no significant hypotensive episodes documented. Most of the history was taken from he patient' s chart. Additional Remarks Intubated responding to commands. Creatinine continues to rise and UOP has decreased. (Adeola Velez) Review of Systems General General Remarks Unable to do ROS as patient is intubated (Adeola Velez) Objective Data Data 12/01/17 12/02/17 19:00 07:00 Intake Total 84 ml Balance 84 ml IV Total 84 ml Vital Signs Date Time Temp Pulse Resp B/P (MAP) Pulse Ox O2 Delivery O2 Flow Rate FiO2 12/01/17 15:28 98 35 12/01/17 14:45 75 110/64 12/01/17 14:00 70 12/01/17 13:53 76 113/57 12/01/17 12:00 72 12/01/17 12:00 98.9 72 25 107/59 (75) 98 12/01/17 12:00 35 12/01/17 11:34 97 35 12/01/17 10:00 75 12/01/17 09:49 99.1 12/01/17 08:00 91 12/01/17 08:00 99.4 91 30 100/59 (73) 100 12/01/17 08:00 35 12/01/17 08:00 91 100/59 12/01/17 08:00 91 100/59 4/4/18 07:48 99 35 12/01/17 06:00 84 12/01/17 05:10 86 107/64 12/01/17 04:00 83 12/01/17 04:00 98.9 83 19 108/61 (77) 100 12/01/17 04:00 40 12/01/17 03:59 100 40 12/01/17 02:00 81 12/01/17 01:26 83 107/57 12/01/17 00:28 98 40 12/01/17 00:00 72 12/01/17 00:00 99.8 72 24 101/65 (77) 100 12/01/17 00:00 40 11/30/17 22:00 65 11/30/17 20:00 86 11/30/17 20:00 40 11/30/17 20:00 99.8 86 24 116/66 (83) 100 11/30/17 19:52 98 40 11/30/17 18:00 84 (Adeola Velez) -: 12/01/17 0705 12/01/17 0705 Imaging Last Impressions Chest X-Ray 12/01/17 1430 Signed Impressions: Service Date/Time: Friday, December 01, 2017 15:04 - CONCLUSION: Residual 8mm right apical pneumothorax with right chest tube in place. Bilateral pleural effusions. Shaq Eisenberg MD Lower Extremity Ultrasound 11/29/17 0000 Signed Impressions: Service Date/Time: Wednesday, November 29, 2017 22:02 - CONCLUSION: Normal examination. Abdiel Mcintyre MD Renal Ultrasound 11/28/17 0000 Signed Impressions: Service Date/Time: Tuesday, November 28, 2017 20:30 - CONCLUSION: Nondiagnostic exam. Rashad Bose MD (Adeola Velez) Physical Exam General Appearance: No Acute Distress, Obese (Adeola Velez) Pulmonary Resp Exam: Breath Sounds Equal Resp Remarks SQ emphysema present Intubated CT right chest wall (Adeola Velez) Cardiology CV Exam: Regular (Adeola Velez) Gastrointestinal/Abdomen GI Exam: Soft, Non-Tender, Distended (Adeola Velez) Genitourinary Exam: Flank Non-Tender (Adeola Velez) Integumentary Skin Exam: Clear, Warm (Adeola Velez) Extremeties Extremities Exam: Moderate Edema (Adeola Velez) Neurologic Neuro Exam: Sedated (Adeola Velez) Assessment/Plan Assessment Summary: DAVID/Acute Renal Failure Problem List: (1) DAVID (acute kidney injury) ICD Codes: N17.9 - Acute kidney failure, unspecified Plan: Acute kidney injury most likely related to prerenal vs acute tubular necrosis, either from the infection or related to his cardiac status and cardiac arrest. Renal US unable to visualize kidneys or bladder? UOP has reduced 85 ml over 24 hours Potassium WNL Creatinine continues to rise at 4.59 from 4.26 Plan Lasix gtt at 5 mg/hr ordered Renal dose antibiotics Continue for follow UOP and BMP Avoid nephrotoxins as possible. Possible HD tomorrow if creatinine does not improve and UOP remains low. (Adeola Velez) Problem List: (1) DAVID (acute kidney injury) ICD Codes: N17.9 - Acute kidney failure, unspecified Plan: Acute kidney injury most likely related to prerenal vs acute tubular necrosis, either from the infection or related to his cardiac status and cardiac arrest. Renal US unable to visualize kidneys or bladder? UOP has reduced 85 ml over 24 hours Potassium WNL Creatinine continues to rise at 4.59 from 4.26 Plan Lasix gtt at 5 mg/hr ordered Renal dose antibiotics Continue for follow UOP and BMP Avoid nephrotoxins as possible. Possible HD tomorrow if creatinine does not improve and UOP remains low. Patient seen and examined, agree with above. Started on Lasix infusion to see if start passing more urine. D/W the at bed side. (America Vela MD) Adeola Velez Dec 01, 2017 16:15 America Vela MD Dec 01, 2017 18:12
--- NOTE | 2017-12-01 19:11 | HHI.HCPN ---
Reason for visit a. To assist with evaluation and management of symptoms including: Dyspnea, pain b. To assist medical decision maker(s) with: better understanding of current medical conditions; weighing benefits/burdens of medical treatment options; making medical treatment decisions. (Linda Gilbert) Subjective/Interval History Patient seen to follow-up on symptom management and goals of care. He is awake on the vent and intermittent following commands. Ventilator settings are PRVC/AC, 550/24/35/5. He failed CPAP trial after 5 minutes. Plan to continue twice a day trials. He remains in atrial fibrillation at a controlled rate. Renal function is declining. Cardiology evaluated amiodarone and will convert him from IV to oral dosing as patient is in gross fluid overload and renal failure. BUN has increased to 130, creatinine 4.59. Renal is following and Lasix infusion was initiated. Per nephrology's notes, hemodialysis will be considered tomorrow if no significant improvement in renal indices. He continues to require some vasopressor support and is remaining on norepinephrine 3 mcg/m to maintain MAP of at least 65 mmHg. Laboratory show continually increasing WBCs, today 24.6, hemoglobin 10.9, hematocrit 35.1, platelets 410, sodium 146, potassium 3.8, BUN 1:30, creatinine 4.59, glucose 200, protein corrected calcium 7.8, phosphorus 8.5, magnesium 2.7. Urine culture drawn 11/28 shows Nette glabrata. Patient remains on fluconazole 400 mg via OG tube daily. Radiology studies show chest x-ray with residual 8 mm right apical pneumothorax with right chest tube in place. Chest tube remains with 1+ air leak. Patient remains with extensive subcutaneous emphysema. Patient has 3-4+ pitting, weeping edema to bilateral lower extremities. . Family/friend interactions is at bedside. Clinical update given. She remains with aggressive goals in spite of clinical decline. They are willing to undergo hemodialysis, tracheostomy, PEG tube placement in spite of poor prognosis, poor response to weaning trials and declining renal function. Her goals are unrealistically optimistic of taking him home with a tracheostomy and ventilating via their home Trilogy vent. Education in difficulties managing vents, need for long- term vent care for vent management with the associated risks of pneumonia and wounds have not deterred the or patient son from pursuing an aggressive course. Dr. Price is the patient's chronic cumulative effects analyst and he has been consulted to assist in managing the transition and patient education. . (Linda Gilbert) Objective Vital Signs Date Time Temp Pulse Resp B/P (MAP) Pulse Ox O2 Delivery O2 Flow Rate FiO2 12/01/17 18:00 81 12/01/17 16:00 98.9 73 41 120/66 (84) 98 12/01/17 16:00 35 12/01/17 16:00 73 12/01/17 15:28 98 35 12/01/17 14:45 75 110/64 12/01/17 14:00 70 12/01/17 13:53 76 113/57 12/01/17 12:00 72 12/01/17 12:00 98.9 72 25 107/59 (75) 98 12/01/17 12:00 35 12/01/17 11:34 97 35 12/01/17 10:00 75 12/01/17 09:49 99.1 12/01/17 08:00 91 12/01/17 08:00 99.4 91 30 100/59 (73) 100 12/01/17 08:00 35 12/01/17 08:00 91 100/59 12/01/17 08:00 91 100/59 12/01/17 07:48 99 35 12/01/17 06:00 84 12/01/17 05:10 86 107/64 12/01/17 04:00 83 12/01/17 04:00 98.9 83 19 108/61 (77) 100 12/01/17 04:00 40 12/01/17 03:59 100 40 12/01/17 02:00 81 12/01/17 01:26 83 107/57 12/01/17 00:28 98 40 12/01/17 00:00 72 12/01/17 00:00 99.8 72 24 101/65 (77) 100 12/01/17 00:00 40 11/30/17 22:00 65 11/30/17 20:00 86 11/30/17 20:00 40 11/30/17 20:00 99.8 86 24 116/66 (83) 100 11/30/17 19:52 98 40 Intake & Output 12/01/17 12/01/17 07:00 19:00 Intake Total 2314 ml 674 ml Output Total 110 ml 75 ml Balance 2204 ml 599 ml IV Total 1709 ml 84 ml Tube Feeding 605 ml 550 ml Other 40 ml Output Urine Total 50 ml 35 ml Chest Tube Drainage Total 60 ml 40 ml # Bowel Movements 3 1 Physical Exam CONSTITUTIONAL/GENERAL: This is an adequately nourished patient, in no apparent distress. TUBES/LINES/DRAINS: PIV's, ETT, left subclavian central line SKIN: No jaundice, rashes, or lesions. Ecchymoses on upper extremities. No wounds seen anteriorly. HEAD: Atraumatic. Normocephalic. EYES: Pupils equal and round and reactive. No scleral icterus. No injection or drainage. Fundi not examined. Significant eyelid swelling. CARDIOVASCULAR: Irregular rhythm, controlled rate, no rub murmur or gallop. No JVD. RESPIRATORY/CHEST: Symmetric, unlabored respirations. Diminished, scattered wheeze. Extensive crepitus. GASTROINTESTINAL: Abdomen soft, nondistended, obese. Bowel sounds present. GENITOURINARY: Without palpable bladder distension. Haynes catheter in place. MUSCULOSKELETAL: Extremities without clubbing or cyanosis. 3+ dependent edema. LYMPHATICS: No palpable cervical or supraclavicular adenopathy. NEUROLOGICAL: Intubated, unsedated, intermittently following commands. PSYCHIATRIC: Calm, appropriate. . (Linda Gilbert) Diagnostic Tests Laboratory Laboratory Tests Test 11/29/17 05:40 11/29/17 16:00 11/29/17 18:50 11/30/17 04:55 Blood Urea Nitrogen 105 MG/DL (7-18) Creatinine 3.66 MG/DL (0.60-1.30) Random Glucose 194 MG/DL (74-106) Total Protein 5.1 GM/DL (6.4-8.2) Albumin 1.9 GM/DL (3.4-5.0) Calcium Level 7.6 MG/DL (8.5-10.1) Alkaline Phosphatase 214 U/L (45-117) Aspartate Amino Transf (AST/SGOT) 210 U/L (15-37) Alanine Aminotransferase (ALT/SGPT) 275 U/L (12-78) Total Bilirubin 0.3 MG/DL (0.2-1.0) Sodium Level 151 MEQ/L (136-145) Potassium Level 3.8 MEQ/L (3.5-5.1) Chloride Level 112 MEQ/L (98-107) Carbon Dioxide Level 26.4 MEQ/L (21.0-32.0) Anion Gap 13 MEQ/L (5-15) Estimat Glomerular Filtration Rate 16 ML/MIN (>89) Total Creatine Kinase 301 U/L (39-308) White Blood Count 21.4 TH/MM3 (4.0-11.0) Red Blood Count 4.23 MIL/MM3 (4.50-5.90) Hemoglobin 11.1 GM/DL (13.0-17.0) Hematocrit 35.6 % (39.0-51.0) Mean Corpuscular Volume 84.3 FL (80.0-100.0) Mean Corpuscular Hemoglobin 26.1 PG (27.0-34.0) Mean Corpuscular Hemoglobin Concent 31.0 % (32.0-36.0) Red Cell Distribution Width 19.0 % (11.6-17.2) Platelet Count 459 TH/MM3 (150-450) Mean Platelet Volume 10.2 FL (7.0-11.0) Neutrophils (%) (Auto) 94.3 % (16.0-70.0) Lymphocytes (%) (Auto) 2.2 % (9.0-44.0) Monocytes (%) (Auto) 3.4 % (0.0-8.0) Eosinophils (%) (Auto) 0.0 % (0.0-4.0) Basophils (%) (Auto) 0.1 % (0.0-2.0) Neutrophils # (Auto) 20.2 TH/MM3 (1.8-7.7) Lymphocytes # (Auto) 0.5 TH/MM3 (1.0-4.8) Monocytes # (Auto) 0.7 TH/MM3 (0-0.9) Eosinophils # (Auto) 0.0 TH/MM3 (0-0.4) Basophils # (Auto) 0.0 TH/MM3 (0-0.2) CBC Comment DIFF FINAL Differential Comment Stool C. difficile Toxin (PCR) NEGATIVE (NEGATIVE) Stl C. difficile Toxin Epiderm 027 PRESUMPTIVE NEGATIVE Lactic Acid Level 1.3 mmol/L (0.4-2.0) Test 11/30/17 08:20 4/4/18 07:05 12/01/17 15:35 White Blood Count 22.0 TH/MM3 (4.0-11.0) 24.6 TH/MM3 (4.0-11.0) Red Blood Count 4.22 MIL/MM3 (4.50-5.90) 4.20 MIL/MM3 (4.50-5.90) Hemoglobin 11.0 GM/DL (13.0-17.0) 10.9 GM/DL (13.0-17.0) Hematocrit 35.9 % (39.0-51.0) 35.1 % (39.0-51.0) Mean Corpuscular Volume 85.2 FL (80.0-100.0) 83.7 FL (80.0-100.0) Mean Corpuscular Hemoglobin 26.1 PG (27.0-34.0) 26.1 PG (27.0-34.0) Mean Corpuscular Hemoglobin Concent 30.6 % (32.0-36.0) 31.2 % (32.0-36.0) Red Cell Distribution Width 19.6 % (11.6-17.2) 19.4 % (11.6-17.2) Platelet Count 423 TH/MM3 (150-450) 410 TH/MM3 (150-450) Mean Platelet Volume 10.2 FL (7.0-11.0) 10.0 FL (7.0-11.0) Neutrophils (%) (Auto) 89.2 % (16.0-70.0) 93.0 % (16.0-70.0) Lymphocytes (%) (Auto) 4.4 % (9.0-44.0) 2.4 % (9.0-44.0) Monocytes (%) (Auto) 6.4 % (0.0-8.0) 4.2 % (0.0-8.0) Eosinophils (%) (Auto) 0.0 % (0.0-4.0) 0.0 % (0.0-4.0) Basophils (%) (Auto) 0.0 % (0.0-2.0) 0.4 % (0.0-2.0) Neutrophils # (Auto) 19.6 TH/MM3 (1.8-7.7) 22.9 TH/MM3 (1.8-7.7) Lymphocytes # (Auto) 1.0 TH/MM3 (1.0-4.8) 0.6 TH/MM3 (1.0-4.8) Monocytes # (Auto) 1.4 TH/MM3 (0-0.9) 1.0 TH/MM3 (0-0.9) Eosinophils # (Auto) 0.0 TH/MM3 (0-0.4) 0.0 TH/MM3 (0-0.4) Basophils # (Auto) 0.0 TH/MM3 (0-0.2) 0.1 TH/MM3 (0-0.2) CBC Comment DIFF FINAL DIFF FINAL Differential Comment Blood Urea Nitrogen 118 MG/DL (7-18) 130 MG/DL (7-18) Creatinine 4.26 MG/DL (0.60-1.30) 4.59 MG/DL (0.60-1.30) Random Glucose 207 MG/DL (74-106) 200 MG/DL (74-106) Total Protein 4.9 GM/DL (6.4-8.2) 4.9 GM/DL (6.4-8.2) Calcium Level 6.8 MG/DL (8.5-10.1) 6.7 MG/DL (8.5-10.1) Phosphorus Level 8.8 MG/DL (2.5-4.9) 8.5 MG/DL (2.5-4.9) Magnesium Level 2.6 MG/DL (1.5-2.5) 2.7 MG/DL (1.5-2.5) Sodium Level 148 MEQ/L (136-145) 146 MEQ/L (136-145) Potassium Level 3.4 MEQ/L (3.5-5.1) 3.8 MEQ/L (3.5-5.1) Chloride Level 111 MEQ/L (98-107) 108 MEQ/L (98-107) Carbon Dioxide Level 24.8 MEQ/L (21.0-32.0) 23.7 MEQ/L (21.0-32.0) Anion Gap 12 MEQ/L (5-15) 14 MEQ/L (5-15) Estimat Glomerular Filtration Rate 14 ML/MIN (>89) 12 ML/MIN (>89) Protein Corrected Calcium 7.9 MG/DL (8.5-10.1) 7.8 MG/DL (8.5-10.1) Blood Gas Puncture Site RT RADIAL Blood Gas Patient Temperature 98.6 Blood Gas HCO3 20 mmol/L (22-26) Blood Gas Base Excess -5.6 mmol/L (-2-2) Blood Gas Oxygen Saturation 96 % (90-100) Arterial Blood pH 7.30 (7.380-7.420) Arterial Blood Partial Pressure CO2 41 mmHg (38-42) Arterial Blood Partial Pressure O2 123 mmHg (61-120) Arterial Blood Oxygen Content 15.3 Vol % (12.0-20.0) Arterial Blood Carboxyhemoglobin 0.8 % (0-4) Arterial Blood Methemoglobin 1.1 % (0-2) Blood Gas Hemoglobin 11.2 G/DL (12.0-16.0) Oxygen Delivery Device VENTILATOR Blood Gas Ventilator Setting Blood Gas Inspired Oxygen 35 % (Linda Gilbert) Result Diagram: 12/01/17 0705 12/01/17 0705 Microbiology Microbiology Date/Time Source Procedure Growth Status 11/29/17 18:50 Blood Peripheral Aerobic Blood Culture - Preliminary NO GROWTH IN 2 DAYS Resulted 11/29/17 18:50 Blood Peripheral Anaerobic Blood Culture - Preliminary NO GROWTH IN 2 DAYS Resulted Imaging Last Impressions Chest X-Ray 12/01/17 1430 Signed Impressions: Service Date/Time: Friday, December 01, 2017 15:04 - CONCLUSION: Residual 8mm right apical pneumothorax with right chest tube in place. Bilateral pleural effusions. Shaq Eisenberg MD Lower Extremity Ultrasound 11/29/17 0000 Signed Impressions: Service Date/Time: Wednesday, November 29, 2017 22:02 - CONCLUSION: Normal examination. Abdiel Mcintyre MD Renal Ultrasound 11/28/17 0000 Signed Impressions: Service Date/Time: Tuesday, November 28, 2017 20:30 - CONCLUSION: Nondiagnostic exam. Rashad Bose MD Procedures 11/16: Endotracheal intubation 11/18: Endotracheal intubation 11/27: Right-sided pigtail catheter placement to the right pleural cavity 11/27: Right chest tube placement . (Linda Gilbert) Assessment and Plan Disease Oriented Problem List: (1) COPD (chronic obstructive pulmonary disease) (2) Respiratory distress (3) CHF (congestive heart failure) (4) ADRIAN (obstructive sleep apnea) (5) Diabetes mellitus type 2, insulin dependent Symptom Scale: (1) Dyspnea and respiratory abnormalities (2) Pain, generalized Pertinent Non-Medical Issues Psychosocial: He was born in [place] and moved to [place] many years ago. 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 Spiritual: Scientologist pool. Legal: No legal issues noted. Ethical issues impacting care: No ethical issues noted. . Important Contacts : Cony Varela . Prognosis His prognosis is poor. He has significant lung compromise requiring a trilogy ventilator at home with multiple recurrent admissions for pulmonary compromise. He developed cardiac arrest requiring CPR with subsequent pneumothorax of the right lung. His renal indices continue to increase and he is now at risk of requiring dialysis. His transaminases are also rising, possible liver shock. His condition is frail and he is at significant risk for continued complications and decline. Code Status: Full Code Plan PLAN: Legal decision maker: Patient is not capacitated to make his decisions. His Cony is his legal proxy. Goals: Aggressive CODE STATUS: FULL CODE SYMPTOMS: * Dyspnea: Multifactorial to include chronic obstructive pulmonary disease, right pneumothorax, atrial fibrillation, diastolic heart failure, fluid volume excess. He is currently mechanically ventilated will likely progress to trach and PEG, which the family will agree to. * Pain: No complaint of pain today. Fentanyl available as needed. None used in the last 24 hours. Palliative care will continue to follow the patient during hospital course as condition evolves, to assist patient/decision-maker with understanding of their medical conditions, weighing benefits/burdens of treatment options, for clarification of goals of treatment. Additionally will assist with any symptoms of palliative concern. . (Linda Gilbert) Attestation To help prompt me to consider important information that might be impacting today's encounter and assessment, information from prior notes written by myself or my colleagues may have been "brought forward" into today's note. My signature on this note, however, is an attestation that I personally performed the exam, history, and/or decision-making noted today, and, unless otherwise indicated, the interactions with patient, family, and staff as well as the review of records all occurred today. I also attest that the listed assessment and stated plan reflect my best clinical judgment today based on the combination of historical information, prior notes, and today's exam/ interactions. When time spent is documented, it refers only to time spent today by the signer, or if indicated, combined time spent today by collaborating physician/nurse practitioner. . (Linda Gilbert) Collaborating MD Comments Chart reviewed. 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 Above RIM TURNING MACHINE OPERATOR note reviewed and I concur. . (Jabari Maldonado MD) Linda Gilbert Dec 01, 2017 19:11 Jabari Maldonado MD Dec 06, 2017 05:45
[2017-12-01] MEDS: ATORVASTATIN 80 MG TAB PO SCH (20:16)
[2017-12-02] VITALS (20 sets, daily range): BP systolic 82–118; BP diastolic 50–86; PULSE 64–108; RESP 4–42; TEMP 98.2–99; O2SAT 81–99
[2017-12-02] MEDS: INSULIN ASPART SUPPLEMENTAL SCALE SQ SCH ×5 (04:32→20:00)
[2017-12-02] MEDS: MEROPENEM INJ 500 MG in SODIUM CHLORIDE 0.9% INJ 100 ML IV SCH ×2 (04:32→21:40)
[2017-12-02] MEDS: SODIUM CHLOR 0.45% 1000 ML INJ 1,000 ML IV SCH ×2 (04:32→16:30)
[2017-12-02 06:22] LABS: AUTOMATED NEUTROPHIL # 23.5 TH/MM3 (1.8-7.7); BASOPHIL % 0.1 % (0.0-2.0); HEMATOCRIT 33.7 % (39.0-51.0); HEMOGLOBIN 10.4 GM/DL (13.0-17.0); LYMPH % 2.1 % (9.0-44.0); LYMPHOCYTE # 0.5 TH/MM3 (1.0-4.8); MEAN CORPUSCULAR HEMOGLOBIN 26.4 PG (27.0-34.0); MEAN PLATELET VOLUME 10.1 FL (7.0-11.0); MONO % 3.8 % (0.0-8.0); PLATELET COUNT 326 TH/MM3 (150-450); RED BLOOD COUNT 3.96 MIL/MM3 (4.50-5.90); RED CELL DISTRIBUTION WIDTH 18.9 % (11.6-17.2)
--- NOTE | 2017-12-02 06:23 | RADRPT ---
EXAM DATE/TIME: 12/02/2017 04:07 [facility] COMPARISON: CHEST SINGLE AP, December 01, 2017, 15:04. INDICATIONS : Shortness of breath, possible pulmonary disease. MEDICAL HISTORY : Congestive heart failure. Hypertension Chronic obstructive pulmonary disease. A-fib MRSA BPH Diab etes SURGICAL HISTORY : Cardiac ablation ENCOUNTER: Subsequent ACUITY: 2 weeks PAIN SCORE: Non-responsive. LOCATION: Bilateral chest FINDINGS: Endotracheal tube, nasogastric tube and left neck central line are again noted. Thoracostomy tubes ar e grossly stable. Prominent diffuse subcutaneous emphysema is noted. Significant pneumothorax is not appreciated. Left base consolidation is grossly stable. Cardiac contours are unchanged. CONCLUSION: Slight improvement in aeration Abdiel Mcintyre MD on December 02, 2017 at 6:19 Board Certified Radiologist. This report was verified electronically.
[2017-12-02 07:03] LABS: BICARBONATE 21.4 MEQ/L (21.0-32.0); CALCIUM 6.8 MG/DL (8.5-10.1); CREATININE 5.01 MG/DL (0.60-1.30); MAGNESIUM 2.9 MG/DL (1.5-2.5)
[2017-12-02 07:35] LABS: CALCIUM-PROTEIN CORRECTED 7.9 MG/DL (8.5-10.1)
[2017-12-02] MEDS: CHLORHEXIDINE 0.12% (ORAL KIT) 15 ML CUP MT SCH ×2 (08:00→21:40)
[2017-12-02] MEDS: DILTIAZEM HCL 60 MG TAB PO SCH ×5 (09:00→21:00)
[2017-12-02] MEDS: INSULIN DETEMIR 100 UNITS/ML VIAL SQ SCH ×2 (09:00→21:00)
[2017-12-02] MEDS: DOCUSATE SODIUM 50 MG/SENNA 8.6 MG TAB PO SCH ×2 (09:00→21:41)
[2017-12-02] MEDS: HEPARIN SODIUM - SQ 10,000 UNITS/ML VIAL SQ SCH ×3 (09:00→21:41)
[2017-12-02] MEDS: BUDESONIDE-FORMOTEROL 160/4.5 MCG INHALER INH SCH ×2 (09:00→20:58)
[2017-12-02] MEDS: METOPROLOL TARTRATE 50 MG TAB PO SCH ×2 (09:18→21:00)
[2017-12-02] MEDS: FLUCONAZOLE 200 MG TAB PO SCH (09:19)
[2017-12-02] MEDS: FAMOTIDINE 20 MG TAB PO SCH ×2 (09:19→21:41)
[2017-12-02] MEDS: methylPREDNISolone SOD SUCC 40 MG/1 ML VIAL IV PUSH SCH (09:19)
[2017-12-02] MEDS: LINEZOLID 600 MG TAB PO SCH ×2 (09:19→21:41)
[2017-12-02] MEDS: SODIUM CHLORIDE 0.9% FLUSH 10 ML FLUSH IV FLUSH SCH ×2 (09:20→21:40)
[2017-12-02] MEDS ORDERED: HEPARIN SODIUM - IV 10,000 UNITS/10 ML VIAL IV FLUSH PRN (09:30)
[2017-12-02] MEDS ORDERED: ONDANSETRON HCL 4 MG/2 ML VIAL IV PUSH PRN (09:30)
[2017-12-02] MEDS ORDERED: GELATIN 12 MM/7 MM FOAM TOP PRN (09:30)
[2017-12-02] MEDS ORDERED: NITROGLYCERIN 0.4 MG SL 25 TABS/BTL SL PRN (09:30)
[2017-12-02] MEDS ORDERED: SODIUM CHLOR 0.9% 1000 ML INJ 1,000 ML IV PRN (09:30)
[2017-12-02] MEDS ORDERED: SODIUM CHLOR 0.9% 1000 ML INJ 1,000 ML OTHER PRN (09:30)
[2017-12-02] MEDS ORDERED: cloNIDine HCL 0.1 MG TAB PO PRN (09:30)
[2017-12-02] MEDS ORDERED: diphenhydrAMINE HCL 25 MG CAP PO PRN (09:30)
--- NOTE | 2017-12-02 09:47 | HHI.NPPN ---
Subjective Renal Failure: Acute History of Present Illness This is a 77-year-old male with past medical history of ischemic heart disease, atrial fibrillation, congestive heart failure, possibly diastolic dysfunction, diabetes mellitus, chronic obstructive pulmonary disease, was admitted on 11/14 with respiratory distress. Nephrology was called to see the patient because of elevated BUN and creatinine. The patient has creatinine of 1.1 on admission, which increased after 2 or 3 to 1.3-1.5 and for the last 2 days, it has been going up and now it is 2.8. The patient was initially diagnosed with pneumonia and was started on antibiotics and then later on, patient developed respiratory failure and was intubated. He was also found to have asystole on 11/27 for 3 minutes and CPR was done with ACLS protocol, and it was shown that he has large right-sided pneumothorax. The blood pressure has been stable and there are no significant hypotensive episodes documented. Most of the history was taken from he patient' s chart. Additional Remarks Intubated responding to commands at bedside. Patient continues to have minimal UOP with lasix gtt. Edema present. (Adeola Velez) Review of Systems General General Remarks Unable to do ROS as patient is intubated (Adeola Velez) Objective Data Data 12/02/17 12/03/17 19:00 07:00 Intake Total 100 ml Balance 100 ml IV Total 100 ml Vital Signs Date Time Temp Pulse Resp B/P (MAP) Pulse Ox O2 Delivery O2 Flow Rate FiO2 12/02/17 08:48 97 35 12/02/17 06:00 92 12/02/17 05:45 88 94/51 12/02/17 04:00 91 12/02/17 04:00 35 12/02/17 04:00 98.2 85 41 105/53 (70) 95 12/02/17 03:58 98 35 12/02/17 02:00 86 12/02/17 00:16 99 35 12/02/17 00:00 35 12/02/17 00:00 99.0 84 41 98/56 (70) 94 12/02/17 00:00 84 12/01/17 22:00 84 12/01/17 20:35 81 106/55 12/01/17 20:00 35 12/01/17 20:00 99.2 82 42 109/55 (73) 94 12/01/17 20:00 82 12/01/17 19:50 99 35 12/01/17 19:00 82 107/59 12/01/17 19:00 82 107/59 12/01/17 18:00 81 12/01/17 16:16 74 111/58 12/01/17 16:00 98.9 73 41 120/66 (84) 98 12/01/17 16:00 35 12/01/17 16:00 73 12/01/17 15:28 98 35 12/01/17 14:45 75 110/64 12/01/17 14:00 70 12/01/17 13:53 76 113/57 12/01/17 12:00 72 12/01/17 12:00 98.9 72 25 107/59 (75) 98 12/01/17 12:00 35 12/01/17 11:34 97 35 12/01/17 10:00 75 12/01/17 09:49 99.1 (Adeola Velez) -: 12/02/17 0535 12/02/17 0535 Imaging Last Impressions Chest X-Ray 12/02/17 0600 Signed Impressions: Service Date/Time: November 04:07 - CONCLUSION: Slight improvement in aeration Abdiel Mcintyre MD Lower Extremity Ultrasound 11/29/17 0000 Signed Impressions: Service Date/Time: Wednesday, November 29, 2017 22:02 - CONCLUSION: Normal examination. Abdiel Mcintyre MD Renal Ultrasound 11/28/17 0000 Signed Impressions: Service Date/Time: Tuesday, November 28, 2017 20:30 - CONCLUSION: Nondiagnostic exam. Rashad Bose MD (Adeola Velez) Physical Exam General Appearance: No Acute Distress, Obese (Adeola Velez) Pulmonary Resp Exam: Breath Sounds Equal Resp Remarks SQ emphysema present Intubated CT right chest wall (Adeola Velez) Cardiology CV Exam: Regular (Adeola Velez) Gastrointestinal/Abdomen GI Exam: Soft, Non-Tender, Distended (Adeola Velez) Genitourinary Exam: Flank Non-Tender (Adeola Velez) Integumentary Skin Exam: Clear, Warm (Adeola Velez) Extremeties Extremities Exam: Moderate Edema (Adeola Velez) Neurologic Neuro Exam: Sedated (Adeola Velez) Assessment/Plan Assessment Summary: DAVID/Acute Renal Failure Problem List: (1) DAVID (acute kidney injury) ICD Codes: N17.9 - Acute kidney failure, unspecified Plan: Acute kidney injury most likely related to prerenal vs acute tubular necrosis, either from the infection or related to his cardiac status and cardiac arrest. Renal US unable to visualize kidneys or bladder? UOP continues to be minimal Potassium WNL Creatinine continues to rise at 5.01 from 4.59 today Plan Renal dose antibiotics Continue for follow UOP and BMP Avoid nephrotoxins as possible. Vas cath placement and dialysis planned for today. Epogen with dialysis Discussed with at bedside (2) Respiratory failure ICD Codes: J96.90 - Respiratory failure, unspecified, unspecified whether with hypoxia or hypercapnia Plan: Intubated weaning per CC (Adeola Velez) Problem List: (1) DAVID (acute kidney injury) ICD Codes: N17.9 - Acute kidney failure, unspecified Plan: Acute kidney injury most likely related to prerenal vs acute tubular necrosis, either from the infection or related to his cardiac status and cardiac arrest. Renal US unable to visualize kidneys or bladder? UOP continues to be minimal Potassium WNL Creatinine continues to rise at 5.01 from 4.59 today Plan Renal dose antibiotics Continue for follow UOP and BMP Avoid nephrotoxins as possible. Vas cath placement and dialysis planned for today. Epogen with dialysis Discussed with at bedside. Patient seen and examined, agree with above. Started on HD after the Vascath. BP on lower side, on low dose pressors. IV Albumin with HD. (2) Respiratory failure ICD Codes: J96.90 - Respiratory failure, unspecified, unspecified whether with hypoxia or hypercapnia Plan: Intubated weaning per CC (America Vela MD) Adeola Velez Dec 02, 2017 09:47 America Vela MD Dec 02, 2017 18:41
--- NOTE | 2017-12-02 10:09 | HHI.CCPN ---
Subjective Remarks/Hospital Course This is a 77-year-old male with a medical history significant for COPD, CHF, A. fib, diabetes, that presented to emergency department from [facility] for evaluation of worsening shortness of breath over the last 3 days. The patient was been given Solu-Medrol 125 mg and 2 albuterol treatments enroute to ED. Upon presentation to the ED the patient was on a nonrebreather. He was tachypneic and tachycardic. Patient's medical history significant for MRSA pneumonia previously admitted on 10/27/16 for approximately 12 days at [facility]. The patient is normally on 2.5 L/m nasal cannula O2 home dependency, and he lives with ( normally) a PCO2 in the 80s according to his . Patient was then discharged to [facility], and then transferred to [facility] for rehabilitation. He has been on an unknown antibiotic per the family and steroids for the last 3 days. Laboratory and imaging studies were performed with noted elevation in CO2 The patient was given empiric antibiotics in the ED and placed on BiPAP. Critical care medicine was consulted. Subjective: 11/15: Patient maintained on BiPAP throughout the night O2 saturations 97-98% on FiO2 of 0.40. Hemodynamically stable. Attempts made to wean patient to nasal cannula this a.m. unsuccessful, patient's O2 saturation in the 70s, patient placed back on BiPAP. Chest x-ray pending WBC count significantly diminished, leukocytosis resolved. Patient extremely anxious, Precedex infusion initiated. 11/16: Late entry note. Patient seen 10 AM. Overnight the patient converted to A. fib RVR, despite being on Cardizem 4 times a day and metoprolol twice a day- home medications, the patient received IV Cardizem followed by amiodarone infusion. Per report the patient became hypotensive, Cardizem discontinued. Amiodarone continued. Early this a.m. patient was resting comfortably A. fib rate controlled rate. The patient suddenly converted to A. fib RVR heart rate 150s-160s, acute hypoxemic respiratory failure, requiring intubation. The patient was intubated uneventfully and continues on amiodarone at 0.5 mg/hour, rate now controlled in conjunction with sedation. Cardiology consulted, his patrol agent is Dr. Reyes X-ray revealed lung consolidation improved, chest x- ray clear. Plan for CPAP trials in a.m.. 11/17: No acute events overnight. Patient had 1 short 8 beat run of V. tach last evening was self resolution, electrolytes within normal limits. The patient continues on amiodarone 0.5 mg/hr. CPAP trials initiated this a.m.. Tube feeds initiated at trickle feeds. Patient converted to sinus rhythm at 2 AM. 11/18 Patient remains sedated and intubated. Afebrile. 11/19 Patient was extubated yesterday however last night he was noted to choke on water provided by the family. Stat ABG demonstrated acute hypercapnic respiratory failure and was emergently intubated. Currently sedated and intubated. 11/20 Patient remains intubated on Fentanyl drip however he si awake and alert. Afebrile. 11/21 Patient is awake and alert placed on CPAP with PS:15, PEEP:5. Afebrile. 11/22 Patient remains intubated , did not tolerate CPAP trials yesterday as he became tachycardic and hypertensive. On no sedation awake and alert. 11/23 No events overnight, off sedation. 11/24: Resting comfortably on mechanical ventilation currently. Daily C Pap trials ongoing. 11/25: Sedated with Precedex, orally intubated on mechanical ventilation. Daily C Pap trials 11/26: Sedated with Precedex, orally intubated on mechanical ventilation. Got tachypneic with CPAP trial today hence placed back on PRVC. Spiked a fever, garcia cultures ordered. Went into A. fib with RVR subsequently for which being initiated on amiodarone bolus followed by drip and Lopressor 5 mg IV every 6 as needed for 11/27: This morning patient developed bradycardia followed by asystole for which she had 3 minutes CPR with ACLS protocol with return of spontaneous circulation. Post code chest x-ray revealed moderate to large right pneumothorax for which a right pigtail catheter was placed by me however despite airleak patient continue have moderate to large pneumothorax hence a second right sided 28 Tongan chest tube was placed to -40 cm water pressure. Air leaks 1+ in both pigtail catheter and chest tube. Patient remains in a flutter currently. Dr. reyes evaluated patient as well following cardiac arrest. 11/28: Sedated, arousable, orally intubated on mechanical ventilation. Worsening renal function noted. MDR Pseudomonas in sputum. Right sided chest tube/ pigtail catheter with 1+ air leak in both. Subcutaneous emphysema noted over right side of face neck and right upper extremity. On 50% FiO2, PEEP +5. Poor urine output for which 500 cc and is bolus given earlier. Treated for hyperkalemia with Kayexalate PO, glucose insulin, calcium IV. 4/2: Remains sedated, arousable, orally intubated on mechanical ventilation. A. fib with RVR this morning for which she was loaded with amiodarone and initiated on amiodarone drip. Spiking fever 103.5. ID adjusting antibiotics. Stool for C. difficile ordered as he had some diarrhea today though received Kayexalate yesterday for hyperkalemia. Pigtail catheter on the right side appeared to be dislodged hence this was removed. 28 Tongan chest tube in right pleural cavity repositioned. 11/30: Late entry note , patient seen at 12 noon. Creatinine continues to trend upward.Sedated but easily arousable. 12/01: Patient lightly sedated, following commands this a.m.. Creatinine noted increased, possible dialysis consideration for tomorrow. Patient to be diuresed today. CPAP trial initiated failed after 5 minutes, repeat this afternoon. 12/02: Patient placed on Lasix infusion throughout the night . No renal improvement,creatinine worsened today , plan for Vas-Cath placement and IHD today. This extensive discussion with patient and plans for tracheostomy and PEG tube placement secondary to failure to wean. Objective Vital Signs Date Time Temp Pulse Resp B/P (MAP) Pulse Ox O2 Delivery O2 Flow Rate FiO2 12/02/17 08:48 97 35 12/02/17 06:00 92 12/02/17 05:45 94/51 12/02/17 04:00 98.2 41 Intake and Output 12/02/17 12/02/17 12/03/17 08:00 16:00 00:00 Intake Total 1908.4 ml Output Total 140 ml Balance 1768.4 ml Result Diagram: 12/02/17 0535 12/02/17 0535 Other Results Laboratory Tests Test 12/01/17 15:35 12/02/17 04:29 Blood Gas Puncture Site RT RADIAL RT RADIAL Blood Gas Patient Temperature 98.6 98.6 Blood Gas HCO3 20 mmol/L (22-26) 19 mmol/L (22-26) Blood Gas Base Excess -5.6 mmol/L (-2-2) -6.3 mmol/L (-2-2) Blood Gas Oxygen Saturation 96 % (90-100) 96 % (90-100) Arterial Blood pH 7.30 (7.380-7.420) 7.29 (7.380-7.420) Arterial Blood Partial Pressure CO2 41 mmHg (38-42) 41 mmHg (38-42) Arterial Blood Partial Pressure O2 123 mmHg (61-120) 113 mmHg (61-120) Arterial Blood Oxygen Content 15.3 Vol % (12.0-20.0) 14.1 Vol % (12.0-20.0) Arterial Blood Carboxyhemoglobin 0.8 % (0-4) 0.8 % (0-4) Arterial Blood Methemoglobin 1.1 % (0-2) 1.2 % (0-2) Blood Gas Hemoglobin 11.2 G/DL (12.0-16.0) 10.4 G/DL (12.0-16.0) Oxygen Delivery Device VENTILATOR VENTILATOR Blood Gas Ventilator Setting PRVC/AC Blood Gas Inspired Oxygen 35 % 35 % Imaging Last 48 hours Impressions Chest X-Ray 11/29/17 0000 Signed Impressions: Service Date/Time: Wednesday, November 29, 2017 09:58 - CONCLUSION: 1. More cephalad , Glasgow loop thoracostomy tube is now back out of the pleural space and position in the deep tissues of the upper right hemithorax. The lower, surgical thoracostomy tube has backed out slightly with the side port just on the inside of the chest wall in the pleural space. 2. Stable right-sided pneumothorax measuring 1.3 cm in depth. 3. Stable, extensive deep tissue and subcutaneous emphysematous changes. Stable bibasilar airspace disease. 4. Interval placement of a left IJ central venous catheter with tip projecting over the central venous system. No left-sided pneumothorax. 5. Otherwise, endotracheal and nasogastric tubes are grossly stable in position. Omid Traore MD Renal Ultrasound 11/28/17 0000 Signed Impressions: Service Date/Time: Tuesday, November 28, 2017 20:30 - CONCLUSION: Nondiagnostic exam. Rashad Bose MD Chest X-Ray 11/28/17 0000 Signed Impressions: Service Date/Time: Tuesday, November 28, 2017 02:32 - CONCLUSION: 1. 2 right- sided chest tubes with small right pneumothorax. Extensive subcutaneous air. Mild basilar airspace disease. Tera Gibson MD Chest X-Ray 11/27/17 1745 Signed Impressions: Service Date/Time: Monday, November 27, 2017 17:44 - CONCLUSION: Slight decrease in pneumothorax size. Rashad Bose MD Last Impressions Chest X-Ray 11/21/17 0000 Signed Impressions: Service Date/Time: Tuesday, November 21, 2017 10:03 - CONCLUSION: Left basilar streakiness consistent with atelectasis and/or infiltrate. Hossein Torres MD Objective Remarks GENERAL: Patient is 77 yo intubated awake nodding yes and no to questions SKIN: Warm and dry. HEAD: Normocephalic. Subcutaneous emphysema involving right side of face neck shoulder and arm. EYES: No scleral icterus. No injection or drainage. NECK: Supple, trachea midline. No JVD or lymphadenopathy. CARDIOVASCULAR: S1-S2 irregularly irregular, no gallop or murmur. RESPIRATORY: Orally intubated on mechanical ventilation, air entry decreased over right lung field, scattered rhonchi bilaterally, no wheezing. Right sided chest tube with 1+ airleak. Subcutaneous emphysema or right chest wall, neck, right side of face and right upper extremity. GASTROINTESTINAL: Abdomen soft, non-tender, nondistended. MUSCULOSKELETAL: Bilateral peripheral edema Neuro: Awake, orally intubated, on mechanical ventilation, following commands moves extremities 4 A/P Problem List: (1) A-fib ICD Code: I48.91 - Unspecified atrial fibrillation (2) CHF (congestive heart failure) ICD Code: I50.9 - Heart failure, unspecified Status: Chronic (3) HTN (hypertension) ICD Code: I10 - Essential (primary) hypertension Status: Chronic (4) ADRIAN (obstructive sleep apnea) ICD Code: G47.33 - Obstructive sleep apnea (adult) (pediatric) Status: Chronic (5) MRSA pneumonia ICD Code: J15.212 - Pneumonia due to Methicillin resistant Staphylococcus aureus Status: Acute (6) Diabetes mellitus type 2, insulin dependent ICD Code: E11.9 - Type 2 diabetes mellitus without complications; Z79.4 - [facility] (current) use of insulin Status: Chronic (7) COPD (chronic obstructive pulmonary disease) ICD Code: J44.9 - Chronic obstructive pulmonary disease, unspecified Status: Acute (8) Respiratory distress ICD Code: R06.03 - Acute respiratory distress Status: Acute (9) Leukocytosis ICD Code: D72.829 - Elevated white blood cell count, unspecified Status: Acute (10) Lung consolidation ICD Code: J18.1 - Lobar pneumonia, unspecified organism Status: Acute (11) Anxiety ICD Code: F41.9 - Anxiety disorder, unspecified Status: Chronic Assessment and Plan Plan by systems: Neurologic: 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 Neuro checks per ICU protocol Hold gabapentin 300mmg q HS home med 12/01-patient following commands, moving extremities 4 Patient GCS 11 T-responding to commands Respiratory: Acute respiratory failure on mechanical ventilation- extubated and reintubated night of 11/18 after he was noted to choke on water provided by family. COPD exacerbation Pneumonia-MRSA Right sided pneumothorax following CPR status post pigtail catheter/chest tube placement 11/27 Obstructive sleep apnea Home O2 dependency Continue with vent support keep sats >92% Bronchodilators, methylprednisolone 40 mg IV daily Pulmonology - Dr Price, Right sided chest tube in place with 1+ air leak. Continue 28 F right chest tube to -40 cm water pressure with underwater seal. Right sided pigtail catheter removed as it appeared to be this last and out of the pleural cavity on chest x-ray on 11/29 12/02 general surgery consult for tracheostomy Cardiovascular: A. fib RVR Cardiac arrest - asystole, status post CPR 11/27 History of CHF CAD atorvastatin 80 daily at bedtime, metoprolol 50 mg twice a day, Cardizem 60 mg 4 times a day . Eliquis held from 11/27 in view of anticipated procedures. Patient already had 2 chest tubes placed on 11/27. By mouth beta naomy, Cardizem resumed. Amiodarone 150 mg bolus followed by a drip resumed 11/29 due to A. fib with RVR.. Lopressor 2.5 mg IV every 6 hourly as needed for heart rate greater than 130 Cardiology - Dr. Reyes-discussed with Dr. Reyes following cardiac arrest on 11/27 Echo showed EF 65-70% Patient continues on amiodarone infusion, plan transition to PO, deferred to cardiology Renal: DAVID Hyperkalemia Monitor renal function, electrolytes replacement per protocol. Treated for hyperkalemia with Kayexalate, glucose insulin and calcium on 11/28. Consulted nephrology and discussed with Dr. Ragland. 12/02 Vas-Cath placement plan for initiation of IHD creatinine 5.0 FEN/GI: Electrolyte derangement GERD Tolerating tube feeds with Jevity 1.5 at goal. Pepcid for GI prophylaxis Replete electrolytes per ICU 12/02 gastroenterology consulted for PEG tube placement Heme/ID: Pneumonia MRSA positive-on 10/27 Leukocytosis ID following- Antibiotics per ID (on by mouth Zyvox, IV Levaquin, fluconazole), started on meropenem on 11/28 for MDR Pseudomonas in sputum. Being started on IV micafungin. Stool for C. difficile ordered on 11/29 in view of persistent fever and started on by mouth vancomycin. 11/14 Obtain blood , urine - NGTD 11/16 sputum cultures- Kleb pneumonia 11/26 sputum cultures growing multidrug resistant Pseudomonas/MRSA 11/28 urine culture growing yeast 11/26 blood culture neg Endocrine: Glucose monitoring per ICU protocol-low dose regimen -- SSI(high scale) Levemir increased from 14u Q12 to 25 units every 12 hourly Prophylaxis: GI Prophylaxis Famotidine BID DVT Prophylaxis -- SCDs Held home dose Eliquis 5 mg BID on 11/27 in view of anticipated procedures. Start heparin 5000 units subcutaneously every 8 hourly for DVT prophylaxis on 11/28. Lines: Left IJ central line placed 11/28iscussed with patient's son regarding current clinical status and plan of care at bedside and he voiced understanding and was agreeable. Explained possible need for tracheostomy and PEG tube placement. Plan of care with patient's this morning on 11/29 understanding. Prognosis appears poor. Consulted palliative care to assist with deciding goals of therapy 12/02-patient and family requests aggressive measures continue to be instituted. Tracheostomy and PEG placement planned. IHD to be instituted today my billing statement This patient remains critically ill with one or more organ systems which are or may become a threat to life. I have spent in excess of 43 minutes discontinuously in the care and management of this patient. This time is exclusive of procedures, and includes, but is not limited to, evaluation of the patient, review of the medical record, discussions with family, consultants, nursing staff, or respiratory therapy, and documentation in the medical record. D/W nephrology Ms. Liang( Nephrology), Ronda Maxx, and PROP MAKING SUPERVISOR at bedside. Physician Lacy Rodriguez Problem Qualifiers (1) COPD (chronic obstructive pulmonary disease): Qualified Codes: J44.9 - Chronic obstructive pulmonary disease, unspecified (2) Leukocytosis: Qualified Codes: D72.829 - Elevated white blood cell count, unspecified Lacy Rodriguez MD Dec 02, 2017 10:09
[2017-12-02] MEDS ORDERED: MIDAZOLAM HCL 2 MG/2 ML VIAL ONE (10:44)
[2017-12-02] MEDS ORDERED: SODIUM CHLORIDE 0.9% FLUSH 10 ML FLUSH IV FLUSH PRN (11:15)
[2017-12-02] MEDS ORDERED: HEPARIN SODIUM - IV 2,000 UNITS/2 ML VIAL IV FLUSH PRN (11:15)
--- NOTE | 2017-12-02 11:17 | PD.RAD ---
Post Procedure Progress Note Pre Procedure Diagnosis: (1) CHF (congestive heart failure) (2) DAVID (acute kidney injury) Post Procedure Diagnosis: (1) DAVID (acute kidney injury) (2) CHF (congestive heart failure) Procedure Date: Dec 02, 2017 Supervising Radiologist: Con Dennison Estimated blood loss: 2cc Anesthesia: Local, Conscious Sedation Plan of Activity Patient to Unit: ROPU Patient Condition: Critical Additional Comments: Right IJ vascath placed without difficulty. Catheter is in good position OK for use. See PACS Report for procedural detail/treatment Con Dennison MD Dec 02, 2017 11:17
--- NOTE | 2017-12-02 12:10 | HHI.IDPN ---
Note Infectious Disease Note ID Xcover for 77-year-old, white male who presents to the Emergency Department with shortness of breath. The patient has a history of COPD and CHF. He usually uses CPAP at the assisted living facility. He was noted to have been developing coughing and shortness of breath over the past couple of days, and his states that he was coughing a lot yesterday and bringing up mostly phlegm and that he was restless and could not sleep. Recently treated at [facility] for pneumonia due to methicillin-resistant Staphylococcus aureus. His states that he was still on the oral antibiotic for pneumonia and that he has 2 more days of the medication to complete therapy with Zyvox. Overnight events reviewed. Temps better BP low: 79/54 RN will inform CCM MD. UO low. Cr increasing. Possible HD today as Vascath placed. 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 BC negative No central line Has a Haynes PAST MEDICAL HISTORY: COPD, CHF, atrial fibrillation, insulin-dependent diabetes mellitus, hypertension, hyperlipidemia, gastroesophageal reflux, gastroparesis, iron deficiency anemia, oxygen-dependent. PAST SURGICAL HISTORY: Right knee surgery, right carpal tunnel release, cardiac ablation treatment 2002. ALLERGIES: ASPIRIN, CODEINE. Current Medications Medications (Trade) Dose Ordered Sig/Yani Route Start Time Stop Time Status Last Admin (NS Flush) 2 ml UNSCH PRN IV FLUSH 11/14/17 15:45 11/17/17 14:05 (NS Flush) 2 ml BID IV FLUSH 11/14/17 21:00 12/02/17 09:20 (Tylenol) 650 mg Q6H PRN PO 11/14/17 15:45 11/29/17 11:01 (Zofran Inj) 4 mg Q6H PRN IV PUSH 11/14/17 15:45 11/18/17 16:03 Miscellaneous Information 1 Q361D XX 11/14/17 15:45 11/14/17 15:45 (Chlorhexidine 2% Cloth) Taper DAILY@04 TOP 11/15/17 04:00 11/11/18 03:59 11/29/17 04:00 (Chlorhexidine 2% Cloth) 3 pack UNSCH PRN TOP 11/14/17 15:45 (Ricarda-Colace) 1 tab BID PO 11/14/17 21:00 12/01/17 20:15 (Milk Of Magnesia Liq) 30 ml Q12H PRN PO 11/14/17 15:45 (Senokot) 17.2 mg Q12H PRN PO 11/14/17 15:45 (Dulcolax Supp) 10 mg DAILY PRN RECTAL 11/14/17 15:45 (Lactulose Liq) 30 ml DAILY PRN PO 11/14/17 15:45 (Eliquis) 5 mg BID PO 11/14/17 21:00 Future Hold 11/27/17 20:17 (Lipitor) 80 mg HS PO 11/14/17 21:00 12/01/17 20:16 (Lanoxin) 0.125 mg DAILY PO 11/15/17 09:00 Future Hold 11/17/17 08:24 (Cardizem) 60 mg QID PO 11/14/17 18:00 12/02/17 09:19 (Lopressor) 50 mg BID PO 11/14/17 21:00 12/02/17 09:18 Patient Own Medication PT OWN MED: Mometas... HS INH 11/14/17 21:00 Future Hold (Apresoline Inj) 20 mg Q4H PRN IV PUSH 11/17/17 12:00 11/22/17 07:38 (SoluMEDROL INJ) 40 mg DAILY IV PUSH 11/19/17 09:00 12/02/17 09:19 (Symbicort 160-4.5 Mcg Inh) 2 puff Q12HR INH 11/18/17 21:00 11/28/17 20:33 (Peridex 0.12% Liq) 15 ml BID@08,20 MT 11/19/17 08:00 12/02/17 08:00 (Duoneb Neb) 1 ampule Q2HR NEB PRN INH 11/18/17 22:30 11/26/17 03:13 (Pepcid) 10 mg BID PO 11/22/17 21:00 12/02/17 09:19 Dexmedetomidine HCl 1000 mcg/ Sodium Chloride 250 ml @ 5.05 mls/hr TITRATE PRN IV 11/23/17 22:45 11/26/17 20:30 (Levemir Inj) 25 units Q12HR SQ 11/26/17 21:00 12/01/17 20:17 (NovoLOG SUPPLEMENTAL SCALE) 1 Q4HR SQ 11/26/17 16:00 12/02/17 04:32 (D50w (Vial) Inj) 25 ml UNSCH PRN IV 11/26/17 15:30 (Glucagon Inj) 1 mg UNSCH PRN IM/SQ 11/26/17 15:30 (Zyvox) 600 mg Q12HR PO 11/27/17 09:30 12/02/17 09:19 Fentanyl Citrate 250 ml @ 5 mls/hr TITRATE PRN IV 11/27/17 13:45 11/29/17 01:17 Meropenem 500 mg/ Sodium Chloride 100 ml @ 200 mls/hr Q12H IV 11/28/17 17:00 12/02/17 04:32 (Heparin Inj) 5,000 units Q12HR SQ 11/28/17 21:00 12/01/17 20:17 (Lopressor Inj) 5 mg Q6H PRN IV PUSH 11/29/17 09:15 Amiodarone HCl 450 mg/Sodium Chloride 259 ml @ 33.33 mls/ hr Q7H47M PRN IV 11/29/17 07:39 12/01/17 20:35 Sodium Chloride 1,000 ml @ 84 mls/hr [id number] IV 11/29/17 17:00 12/02/17 04:32 Norepinephrine Bitartrate 250 ml @ 7.5 mls/hr TITRATE PRN IV 11/30/17 04:15 12/01/17 13:53 (Brethine Inj) 1 mg UNSCH PRN SQ 11/30/17 04:15 (Diflucan) 400 mg DAILY PO 12/02/17 09:00 12/02/17 09:19 Furosemide 100 mg/ Sodium Chloride 100 ml @ 5 mls/hr CONTINUOUS IV 12/01/17 16:15 12/01/17 17:54 Sodium Chloride 1,000 ml @ 0 mls/hr Q0M PRN OTHER 12/02/17 09:30 (Heparin Inj) 8,000 units UNSCH PRN IV FLUSH 12/02/17 09:30 Sodium Chloride 1,000 ml @ 200 mls/hr Q5H PRN IV 12/02/17 09:30 Sodium Chloride 1,000 ml @ 0 mls/hr Q0M PRN OTHER 12/02/17 09:30 (Mannitol Inj) 12.5 gm UNSCH PRN IV 12/02/17 09:30 Albumin Human 100 ml @ 60 mls/hr UNSCH PRN IV 12/02/17 09:30 (NS Flush) 5 ml UNSCH PRN IV FLUSH 12/02/17 09:30 (Heparin Inj) UNSCH PRN .XX 12/02/17 09:30 (Gentamicin Inj) 20 mg UNSCH PRN OTHER 12/02/17 09:30 (Zofran Inj) 4 mg UNSCH PRN IV PUSH 12/02/17 09:30 (Tylenol) 650 mg UNSCH PRN PO 12/02/17 09:30 (Benadryl) 25 mg UNSCH PRN PO 12/02/17 09:30 (Nitrostat Sl) 0.4 mg UNSCH PRN SL 12/02/17 09:30 (Catapres) 0.1 mg UNSCH PRN PO 12/02/17 09:30 (Epogen Inj) 4,000 units UNSCH PRN IV PUSH 12/02/17 09:30 (Gelfoam 12 Mm/7 Mm Top) 1 foam UNSCH PRN TOP 12/02/17 09:30 (NS Flush) UNSCH PRN IV FLUSH 12/02/17 11:15 UNV (Heparin Inj) UNSCH PRN IV FLUSH 12/02/17 11:15 UNV OBJECTIVE: Vital Signs Date Time Temp Pulse Resp B/P (MAP) Pulse Ox O2 Delivery O2 Flow Rate FiO2 12/02/17 10:00 82 12/02/17 08:48 97 35 12/02/17 08:00 35 12/02/17 08:00 98.8 95 25 83/50 (61) 97 12/02/17 08:00 88 12/02/17 06:00 92 12/02/17 05:45 88 94/51 12/02/17 04:00 91 12/02/17 04:00 35 12/02/17 04:00 98.2 85 41 105/53 (70) 95 12/02/17 03:58 98 35 12/02/17 02:00 86 12/02/17 00:16 99 35 12/02/17 00:00 35 12/02/17 00:00 99.0 84 41 98/56 (70) 94 12/02/17 00:00 84 12/01/17 22:00 84 12/01/17 20:35 81 106/55 12/01/17 20:00 35 12/01/17 20:00 99.2 82 42 109/55 (73) 94 12/01/17 20:00 82 12/01/17 19:50 99 35 12/01/17 19:00 82 107/59 12/01/17 19:00 82 107/59 12/01/17 18:00 81 12/01/17 16:16 74 111/58 12/01/17 16:00 98.9 73 41 120/66 (84) 98 12/01/17 16:00 35 12/01/17 16:00 73 12/01/17 15:28 98 35 12/01/17 14:45 75 110/64 12/01/17 14:00 70 12/01/17 13:53 76 113/57 Laboratory Tests Laboratory Tests Test 12/01/17 07:05 12/02/17 05:35 White Blood Count 24.6 TH/MM3 25.0 TH/MM3 Red Blood Count 4.20 MIL/MM3 3.96 MIL/MM3 Hemoglobin 10.9 GM/DL 10.4 GM/DL Hematocrit 35.1 % 33.7 % Mean Corpuscular Volume 83.7 FL 85.0 FL Mean Corpuscular Hemoglobin 26.1 PG 26.4 PG Mean Corpuscular Hemoglobin Concent 31.2 % 31.0 % Red Cell Distribution Width 19.4 % 18.9 % Platelet Count 410 TH/MM3 326 TH/MM3 Mean Platelet Volume 10.0 FL 10.1 FL Neutrophils (%) (Auto) 93.0 % 94.0 % Lymphocytes (%) (Auto) 2.4 % 2.1 % Monocytes (%) (Auto) 4.2 % 3.8 % Eosinophils (%) (Auto) 0.0 % 0.0 % Basophils (%) (Auto) 0.4 % 0.1 % Neutrophils # (Auto) 22.9 TH/MM3 23.5 TH/MM3 Lymphocytes # (Auto) 0.6 TH/MM3 0.5 TH/MM3 Monocytes # (Auto) 1.0 TH/MM3 1.0 TH/MM3 Eosinophils # (Auto) 0.0 TH/MM3 0.0 TH/MM3 Basophils # (Auto) 0.1 TH/MM3 0.0 TH/MM3 CBC Comment DIFF FINAL DIFF FINAL Differential Comment Microbiology Date/Time Source Procedure Growth Status 11/29/17 18:50 Blood Peripheral Aerobic Blood Culture - Preliminary NO GROWTH IN 3 DAYS Resulted 11/29/17 18:50 Blood Peripheral Anaerobic Blood Culture - Preliminary NO GROWTH IN 3 DAYS Resulted 11/26/17 14:05 Sputum Endotracheal Gram Stain - Final Complete 11/26/17 14:05 Sputum Culture - Final Pseudomonas Aeruginosa Multi-Drug Resistant S. Aureus Mrsa Complete 11/28/17 10:00 Urine Catheterized Urine Urine Culture - Final Nette Glabrata Complete Microbiology Date/Time Source Procedure Growth Status 11/29/17 18:50 Blood Peripheral Aerobic Blood Culture - Preliminary NO GROWTH IN 1 DAY Resulted 11/29/17 18:50 Blood Peripheral Anaerobic Blood Culture - Preliminary NO GROWTH IN 1 DAY Resulted 11/26/17 14:05 Sputum Endotracheal Gram Stain - Final Complete 11/26/17 14:05 Sputum Culture - Final Pseudomonas Aeruginosa Multi-Drug Resistant S. Aureus Mrsa Complete 11/28/17 10:00 Urine Catheterized Urine Urine Culture - Final Nette Glabrata Complete IMAGING Last Impressions Chest X-Ray 12/02/17 0600 Signed Impressions: Service Date/Time: November 04:07 - CONCLUSION: Slight improvement in aeration Abdiel Mcintyre MD Lower Extremity Ultrasound 11/29/17 0000 Signed Impressions: Service Date/Time: Wednesday, November 29, 2017 22:02 - CONCLUSION: Normal examination. Abdiel Mcintyre MD Renal Ultrasound 11/28/17 0000 Signed Impressions: Service Date/Time: Tuesday, November 28, 2017 20:30 - CONCLUSION: Nondiagnostic exam. Rashad Bose MD PHYSICAL EXAMINATION: GENERAL: Awake, following commands, on the vent SKIN: Cool and moist, no generalized rash HEENT: [place] conjunctivae, no petechia, no scleral icterus. He is orally intubated NECK: No swelling or adenopathy. LUNGS: Coarse breath sounds bilaterally. [address] HEART: Irregular rate and rhythm ABDOMEN: Bowel sounds present, but diminished; obese, soft. No tenderness EXTREMITIES: Bilateral pitting pedal edema of the lower extremities, bilateral. No clubbing or cyanosis. NEUROLOGIC: Nonfocal. PSYCHIATRIC: Calm and cooperative. LINE: No evidence of infection : Haynes in place with some sediment IMPRESSION: Probable sepsis. Pneumonia gram-negative. Pseudomonas MDR. C.glabrata UTI Right side Pneumothorax with subq emphysema. Acute respiratory failure. Extubated and reintubated appears to have aspirated. Leukocytosis: infection, steroids. Acute COPD exacerbation. Renal insufficiency, worsening RECOMMENDATIONS: Continue Meropenem IV. Continue Zyvox oral Continue Diflucan increase dose for C.glabrata UTI. If fevers recurr will consider restarting Micafungin (Micafungin not first line for UTI) Follow cultures Follow clinically Discussed with RN D/w Dr Gorman to resume care in am. Pam Flores MD Dec 02, 2017 12:10
[2017-12-02] MEDS: DEXTROSE 50% IN WATER 50 ML VIAL(D50) IV PRN ×4 (12:13→23:19)
--- NOTE | 2017-12-02 13:32 | PD.CONS ---
HPI History of Present Illness This is a 77 year old M with PMH significant for COPD, CHF, a-fib, diabetes that was sent [place] complaints of SOB for 3 days prior to admission. Pt is now mechanically ventilated in ICU and has been unable to be weaned off the ventilator. Our service has been consulted for PEG placement. Currently has OG tube for nutrition, TF turned off because pt just returned to room. Pt did have an episode of asystole with 3 minutes of CPR and ACLS with ROSC on November 26. Pt now with minimal urine output and poor renal function, planned to start dialysis today. Pt just returned from IR for vascath placement, at bedside. (Denise Licona) PFSH Past Medical History Atrial fibrillation/atrial flutter Anxiety Congestive heart failure with preserved ejection fraction Hypertension COPD on home O2 and trilogy vent Diabetes type 2 GERD Obstructive sleep apnea on BiPAP at night Right carpal tunnel syndrome Depression/anxiety MRSA pneumonia Iron deficiency anemia Hyperlipidemia Gastroparesis . Past Surgical History Right carpal tunnel release Hydrocele repair Right knee surgery Cardiac ablation 2002 . (Denise Licona) Coded Allergies: aspirin (Unverified Allergy, Severe, 11/14/17) codeine (Verified Allergy, Severe, 11/14/17) Review of Systems Unable to obtain (Denise Licona) GI Exam Vitals I&O Vital Signs Date Time Temp Pulse Resp B/P (MAP) Pulse Ox O2 Delivery O2 Flow Rate FiO2 12/02/17 12:55 99 35 12/02/17 10:30 99 50 12/02/17 10:00 82 12/02/17 08:48 97 35 12/02/17 08:00 35 12/02/17 08:00 98.8 95 25 83/50 (61) 97 12/02/17 08:00 88 12/02/17 06:00 92 12/02/17 05:45 88 94/51 12/02/17 04:00 91 12/02/17 04:00 35 12/02/17 04:00 98.2 85 41 105/53 (70) 95 12/02/17 03:58 98 35 12/02/17 02:00 86 12/02/17 00:16 99 35 12/02/17 00:00 35 12/02/17 00:00 99.0 84 41 98/56 (70) 94 12/02/17 00:00 84 12/01/17 22:00 84 12/01/17 20:35 81 106/55 12/01/17 20:00 35 12/01/17 20:00 99.2 82 42 109/55 (73) 94 12/01/17 20:00 82 12/01/17 19:50 99 35 12/01/17 19:00 82 107/59 12/01/17 19:00 82 107/59 12/01/17 18:00 81 12/01/17 16:16 74 111/58 12/01/17 16:00 98.9 73 41 120/66 (84) 98 12/01/17 16:00 35 12/01/17 16:00 73 12/01/17 15:28 98 35 12/01/17 14:45 75 110/64 12/01/17 14:00 70 12/01/17 13:53 76 113/57 I/O 12/01/17 12/01/17 12/01/17 12/02/17 12/02/17 12/02/17 07:00 15:00 23:00 07:00 15:00 23:00 Intake Total 2214 ml 84 ml 940 ml 1808.4 ml 196 ml Output Total 110 ml 75 ml 140 ml Balance 2104 ml 84 ml 865 ml 1668.4 ml 196 ml IV Total 1609 ml 84 ml 350 ml 1226.4 ml 196 ml Tube Feeding 605 ml 550 ml 552 ml Other 40 ml 30 ml Output Urine Total 50 ml 35 ml 50 ml Chest Tube Drainage Total 60 ml 40 ml 90 ml # Bowel Movements 3 1 1 Imaging Last Impressions Chest X-Ray 12/02/17 0600 Signed Impressions: Service Date/Time: November 04:07 - CONCLUSION: Slight improvement in aeration Abdiel Mcintyre MD Lower Extremity Ultrasound 11/29/17 0000 Signed Impressions: Service Date/Time: Wednesday, November 29, 2017 22:02 - CONCLUSION: Normal examination. Abdiel Mcintyre MD Renal Ultrasound 11/28/17 0000 Signed Impressions: Service Date/Time: Tuesday, November 28, 2017 20:30 - CONCLUSION: Nondiagnostic exam. Rashad Bose MD Laboratory Test 12/01/17 15:35 12/02/17 04:29 12/02/17 05:35 Blood Gas Puncture Site RT RADIAL RT RADIAL Blood Gas Patient Temperature 98.6 98.6 Blood Gas HCO3 20 mmol/L 19 mmol/L Blood Gas Base Excess -5.6 mmol/L -6.3 mmol/L Blood Gas Oxygen Saturation 96 % 96 % Arterial Blood pH 7.30 7.29 Arterial Blood Partial Pressure CO2 41 mmHg 41 mmHg Arterial Blood Partial Pressure O2 123 mmHg 113 mmHg Arterial Blood Oxygen Content 15.3 Vol % 14.1 Vol % Arterial Blood Carboxyhemoglobin 0.8 % 0.8 % Arterial Blood Methemoglobin 1.1 % 1.2 % Blood Gas Hemoglobin 11.2 G/DL 10.4 G/DL Oxygen Delivery Device VENTILATOR VENTILATOR Blood Gas Ventilator Setting PRVC/AC Blood Gas Inspired Oxygen 35 % 35 % White Blood Count 25.0 TH/MM3 Red Blood Count 3.96 MIL/MM3 Hemoglobin 10.4 GM/DL Hematocrit 33.7 % Mean Corpuscular Volume 85.0 FL Mean Corpuscular Hemoglobin 26.4 PG Mean Corpuscular Hemoglobin Concent 31.0 % Red Cell Distribution Width 18.9 % Platelet Count 326 TH/MM3 Mean Platelet Volume 10.1 FL Neutrophils (%) (Auto) 94.0 % Lymphocytes (%) (Auto) 2.1 % Monocytes (%) (Auto) 3.8 % Eosinophils (%) (Auto) 0.0 % Basophils (%) (Auto) 0.1 % Neutrophils # (Auto) 23.5 TH/MM3 Lymphocytes # (Auto) 0.5 TH/MM3 Monocytes # (Auto) 1.0 TH/MM3 Eosinophils # (Auto) 0.0 TH/MM3 Basophils # (Auto) 0.0 TH/MM3 CBC Comment DIFF FINAL Differential Comment Blood Urea Nitrogen 138 MG/DL Creatinine 5.01 MG/DL Random Glucose 155 MG/DL Total Protein 5.0 GM/DL Calcium Level 6.8 MG/DL Magnesium Level 2.9 MG/DL Sodium Level 142 MEQ/L Potassium Level 4.4 MEQ/L Chloride Level 105 MEQ/L Carbon Dioxide Level 21.4 MEQ/L Anion Gap 16 MEQ/L Estimat Glomerular Filtration Rate 11 ML/MIN Protein Corrected Calcium 7.9 MG/DL Date/Time Source Procedure Growth Status 11/29/17 18:50 Blood Peripheral Aerobic Blood Culture - Preliminary NO GROWTH IN 3 DAYS Resulted 11/29/17 18:50 Blood Peripheral Anaerobic Blood Culture - Preliminary NO GROWTH IN 3 DAYS Resulted 11/26/17 14:05 Sputum Endotracheal Gram Stain - Final Complete 11/26/17 14:05 Sputum Culture - Final Pseudomonas Aeruginosa Multi-Drug Resistant S. Aureus Mrsa Complete 11/28/17 10:00 Urine Catheterized Urine Urine Culture - Final Nette Glabrata Complete Physical Examination HEENT: Normocephalic CHEST: Respirations synchronized with vent. Mechanically ventilated via ETT CARDIAC: Irregularly irregular, rate controlled ABDOMEN: Soft, nondistended, bowel sounds active SKIN: Normal; no rash; no jaundice. STUDENT LIAISON OFFICER: Opens eyes (Denise Licona) Assessment and Plan Plan Assessment: - Consult for PEG placement, currently receiving nutrition through OG tube. Unable to be weaned off the vent, currently mechanically ventilated via ETT, GS also consulted for trach placement. , Pat at the bedside agreeable to PEG - Elevated LFTs- likely multifactorial- WNL prior to cardiac arrest - DAVID with decreased urine output- vascath placed today, per nephrology notes, HD to be started today - Cardiac arrest on 11/27 with ROSC after 3 minutes of CPR with ACLS - A-fib- currently rate controlled- Eliquis on hold since 11/27 - Fever, leukocytosis- ID following Plan: EGD with PEG placement tomorrow Obtain consent Hold TF after MN Hold Heparin tomorrow for procedure Meropenem and Zyvox per ID- coverage for PEG Repeat PT/INR Liver US TF recommendations per nutrition Further recommendations to follow based on result of above Pt has been seen and examined by myself and Dr. Wilder and this note is written on his behalf (Denise Licona) Physician Comments Seen and examined with MUSIC THEORY PROFESSOR, EGD/PEG planned for tomorrow. Preprocedure antibiotics. Discussed with at the bedside. Thank you (Cindy Wilder MD) Denise Licona Dec 02, 2017 13:32 Cindy Wilder MD Dec 02, 2017 16:50
--- NOTE | 2017-12-02 13:54 | RADRPT ---
EXAM DATE/TIME: 12/02/2017 10:47 [facility] COMPARISON: No previous studies available for comparison. INDICATIONS : Patient presents with respiratory distress and renal failure in need of dialysis catheter placement f or treatment. MEDICAL HISTORY : Atrial Fibrillation: Yes Anxiety: Yes Depression: No Cancer: No Cardiovascular Problems: Yes (CHF HTN ) Congestive Heart Failure: Yes COPD: Yes Diabetes: Yes Diminished Hearing: No Endocrine: Yes GERD: Yes Genitourinary: No Hypertension: Yes Musculoskeletal: No Neurologic: No Psychiatric: Yes Reproductive: No Respiratory: Yes (COPD) Immunizations Current: Yes SURGICAL HISTORY : Abdominal Surgery: No Cardiac Surgery: Yes (ABLATION 2002) Genitourinary Surgery: No Thoracic Surgery: No ENCOUNTER: Initial ACUITY: 3 weeks PAIN SCORE: Nonresponsive. LOCATION: N/A FLUORO TIME: 0.4 minutes IMAGE SERIES: 0 ACCESS: Right internal jugular vein MEDICATION(S): 1.) 2,200 units Heparin IV DEVICE(S): 1.) 14 [place] dual lumen 15 cm Schon catheter PROCEDURE : 1. Ultrasound guided venipuncture. 2. Fluoroscopic guidance. 3. Central line placement. The risks, benefits and alternatives to the procedure were explained to the patient's . Verbal an d written consent was obtained. The site was prepped in sterile fashion. Full sterile technique was used, including cap, mask, sterile gloves and gown and a large sterile sheet. Hand hygiene and 2% c hlorhexidine prep was utilized per protocol for cutaneous antisepsis with appropriate dry time for si te. Sterile gel and sterile probe cover were utilized for ultrasound guidance. The skin and subcutaneous tissues were infiltrated with local anesthetic solution. A suitable site a tara the vein was selected with ultrasound and fluoroscopic guidance. A small incision was made. Th e vein was accessed under direct ultrasound visualization using the micropuncture technique. The greta ropuncture set was exchanged for a 0.035 wire. The tract was dilated. The catheter was advanced int o position under direct fluoroscopic visualization. The catheter was fixed in place with suture and a sterile dressing was applied. The patient tolerated the procedure well and there were no complications. CONCLUSION: Uncomplicated right internal jugular Vas-Cath placement as above. incidental note is made of subcutan eous emphysema within the chest wall and neck Con Dennison MD on December 02, 2017 at 13:51 Board Certified Radiologist. This report was verified electronically.
[2017-12-02] MEDS: HEPARIN SODIUM - IV 10,000 UNITS/10 ML VIAL PRN (19:04)
[2017-12-02] MEDS: MANNITOL 12.5 GM/50 ML VIAL IV PRN (19:05)
[2017-12-02] MEDS: GENTAMICIN SULFATE 20 MG/2 ML VIAL OTHER PRN (19:05)
[2017-12-02] MEDS: ALBUMIN 25% INJ 100 ML IV PRN (19:08)
--- NOTE | 2017-12-02 20:17 | HHI.PR ---
Subjective Remarks the patient intubated on mechanical ventilator. trach in am Objective Vital Signs Date Time Temp Pulse Resp B/P (MAP) Pulse Ox O2 Delivery O2 Flow Rate FiO2 12/02/17 18:00 67 12/02/17 16:09 92 35 12/02/17 16:00 98.6 74 34 118/86 (97) 81 12/02/17 16:00 64 12/02/17 16:00 35 12/02/17 14:00 77 12/02/17 14:00 72 101/55 12/02/17 12:55 99 35 12/02/17 12:00 98.5 71 42 82/52 (62) 12/02/17 12:00 35 12/02/17 12:00 75 12/02/17 11:00 80/44 12/02/17 10:30 99 50 12/02/17 10:00 82 12/02/17 08:48 97 35 12/02/17 08:00 35 12/02/17 08:00 98.8 95 25 83/50 (61) 97 12/02/17 08:00 88 12/02/17 06:00 92 12/02/17 05:45 88 94/51 12/02/17 04:00 91 12/02/17 04:00 35 12/02/17 04:00 98.2 85 41 105/53 (70) 95 12/02/17 03:58 98 35 12/02/17 02:00 86 12/02/17 00:16 99 35 12/02/17 00:00 35 12/02/17 00:00 99.0 84 41 98/56 (70) 94 12/02/17 00:00 84 12/01/17 22:00 84 12/01/17 20:35 81 106/55 I/O 12/01/17 12/01/17 12/01/17 12/02/17 12/02/17 12/02/17 07:00 15:00 23:00 07:00 15:00 23:00 Intake Total 2214 ml 84 ml 940 ml 1808.4 ml 196 ml 60 ml Output Total 110 ml 75 ml 140 ml 1 ml Balance 2104 ml 84 ml 865 ml 1668.4 ml 196 ml 59 ml IV Total 1609 ml 84 ml 350 ml 1226.4 ml 196 ml Tube Feeding 605 ml 550 ml 552 ml 0 ml Other 40 ml 30 ml 60 ml Output Urine Total 50 ml 35 ml 50 ml 1 ml Chest Tube Drainage Total 60 ml 40 ml 90 ml 0 ml Hemodialysis 0 ml # Bowel Movements 3 1 1 1 Result Diagram: 12/02/1735 12/02/1735 Objective Remarks General appearance:Intubated, neck: Trachea midline lungs: Bilateral basilar crackles Heart: S1-S2 irregular tachycardic abdomen: Obese extremities: Positive edema neurologic: sedated, did not followed commands Assessment and Plan Assessment and Plan ventilator dependent respiratory failure COPD congestive heart failure AFib obesity volume overload chronic hypoxemia I do agree with trach. Continue current treatment as per the laundry attendant Continue bronchodilators. optimize volume status. HD as clinically indicated He will need aggressive physiotherapy. d/w at bedside Johnny Price MD Dec 02, 2017 20:17
[2017-12-02] MEDS: RESP: ALBUTEROL 2.5 MG/IPRATROPIUM 0.5 MG NEB (PRN) INH (20:55)
[2017-12-02] MEDS: ATORVASTATIN 80 MG TAB PO SCH (21:41)
[2017-12-02] MEDS: CHLORHEXIDINE GLUCONATE 2 % 1 PACK (2 CLOTHS) TOP SCH (21:43)
--- NOTE | 2017-12-02 22:37 | RADRPT ---
EXAM DATE/TIME: 12/02/2017 21:57 [facility] COMPARISON: No previous studies available for comparison. INDICATIONS : Increased lab values. MEDICAL HISTORY : Congestive heart failure. Hypertension. Chronic obstructive pulmonary disease. Atrial fibrillation. M RSA. Gastroesophageal reflux disease. BPH. Diabetes. Anxiety. SURGICAL HISTORY : Cardiac ablation. Knee surgery. ENCOUNTER: Initial ACUITY: 1 day PAIN SCORE: 0/10 LOCATION: Bilateral upper quadrant MEASUREMENTS: LIVER: Non visualized. COMMON DUCT: Non-visualized RIGHT KIDNEY: Non visualized. SPLEEN: 10.5 cm length FINDINGS: There is a right chest tube in place. There is air within the abdomen which precludes adequate visual ization of the pancreas, liver, common bile duct, gallbladder and right kidney. Spleen unremarkable. CONCLUSION: Nondiagnostic exam due to the presence of air in the abdomen. Tera Gibson MD on December 02, 2017 at 22:34 Board Certified Radiologist. This report was verified electronically.
[2017-12-03] VITALS (52 sets, daily range): BP systolic 79–124; BP diastolic 49–70; PULSE 63–123; RESP 10–41; TEMP 97.4–98.4; O2SAT 77–100
[2017-12-03] MEDS: DEXTROSE 50% IN WATER 50 ML VIAL(D50) IV PRN ×8 (00:13→21:57)
[2017-12-03] MEDS: INSULIN ASPART SUPPLEMENTAL SCALE SQ SCH ×6 (04:00→20:00)
[2017-12-03] MEDS: RESP: ALBUTEROL 2.5 MG/IPRATROPIUM 0.5 MG NEB (PRN) INH (04:07)
[2017-12-03] MEDS: MEROPENEM INJ 500 MG in SODIUM CHLORIDE 0.9% INJ 100 ML IV SCH ×2 (04:56→17:20)
--- NOTE | 2017-12-03 05:56 | RADRPT ---
EXAM DATE/TIME: 12/03/2017 04:44 [facility] COMPARISON: CHEST SINGLE AP, December 02, 2017, 4:07. INDICATIONS : Respiratory disease. MEDICAL HISTORY : Congestive heart failure. Hypertension. Chronic obstructive pulmonary disease.Atrial fibrillation. MR SA. Gastroesophageal reflux disease. BPH. Diabetes. Anxiety. SURGICAL HISTORY : Cardiac ablation. Knee surgery ENCOUNTER: Subsequent ACUITY: 1 day PAIN SCORE: Non-responsive. LOCATION: Bilateral chest FINDINGS: Single AP view of the chest. Extensive bilateral subcutaneous emphysema again seen. Endotracheal tube , nasogastric tube, left IJ central venous catheter remain in place. New right IJ center venous luan ter with the tip in the proximal SVC. Possible small right apical pneumothorax unchanged. Right-sided chest tube remains in place. Patchy opacity at the left lung base unchanged. CONCLUSION: Right IJ center venous catheter now in place. No other significant interval change. Possible small ri ght apical pneumothorax unchanged. Right-sided chest tube in place. Mild patchy left lung base opacit y. Extensive subcutaneous emphysema bilaterally. Prosper Klein MD on December 03, 2017 at 5:51 Board Certified Radiologist. This report was verified electronically.
[2017-12-03 06:16] LABS: AUTOMATED NEUTROPHIL # 16.7 TH/MM3 (1.8-7.7); BASOPHIL % 0.1 % (0.0-2.0); HEMATOCRIT 27.8 % (39.0-51.0); HEMOGLOBIN 8.9 GM/DL (13.0-17.0); LYMPH % 1.9 % (9.0-44.0); LYMPHOCYTE # 0.3 TH/MM3 (1.0-4.8); MEAN CELL VOLUME 84.1 FL (80.0-100.0); MEAN CORPUSCULAR HEMOGLOBIN 26.9 PG (27.0-34.0); MEAN PLATELET VOLUME 9.9 FL (7.0-11.0); MONO % 3.3 % (0.0-8.0); MONOCYTE # 0.6 TH/MM3 (0-0.9); NEUT % 94.7 % (16.0-70.0); PLATELET COUNT 184 TH/MM3 (150-450); RED BLOOD COUNT 3.31 MIL/MM3 (4.50-5.90); WHITE BLOOD COUNT 17.6 TH/MM3 (4.0-11.0)
[2017-12-03 06:25] LABS: INTERNATIONAL NORMALIZED RATIO 1.1 RATIO; PROTHROMBIN TIME - PATIENT 10.7 SEC (9.8-11.6)
[2017-12-03 06:50] LABS: BICARBONATE 21.7 MEQ/L (21.0-32.0); CALCIUM 6.8 MG/DL (8.5-10.1); CREATININE 4.72 MG/DL (0.60-1.30); MAGNESIUM 2.8 MG/DL (1.5-2.5)
[2017-12-03 07:15] LABS: CALCIUM-PROTEIN CORRECTED 7.7 MG/DL (8.5-10.1); PHOSPHORUS 8.5 MG/DL (2.5-4.9); TOTAL PROTEIN 5.3 GM/DL (6.4-8.2)
[2017-12-03] MEDS: CHLORHEXIDINE 0.12% (ORAL KIT) 15 ML CUP MT SCH ×2 (08:00→20:00)
[2017-12-03] MEDS: BUDESONIDE-FORMOTEROL 160/4.5 MCG INHALER INH SCH ×2 (08:16→19:30)
[2017-12-03] MEDS: SODIUM CHLORIDE 0.9% FLUSH 10 ML FLUSH IV FLUSH SCH ×2 (08:28→21:00)
[2017-12-03] MEDS: METOPROLOL TARTRATE 50 MG TAB PO SCH ×2 (08:28→21:00)
[2017-12-03] MEDS: INSULIN DETEMIR 100 UNITS/ML VIAL SQ SCH ×2 (08:29→21:00)
[2017-12-03] MEDS: HEPARIN SODIUM - SQ 10,000 UNITS/ML VIAL SQ SCH ×2 (08:29→21:58)
[2017-12-03] MEDS: fentaNYL DRIP 250 ML IV PRN (08:58)
[2017-12-03] MEDS: DILTIAZEM HCL 60 MG TAB PO SCH ×4 (09:00→21:58)
[2017-12-03] MEDS: FAMOTIDINE 20 MG TAB PO SCH ×2 (09:00→21:58)
[2017-12-03] MEDS: DOCUSATE SODIUM 50 MG/SENNA 8.6 MG TAB PO SCH ×2 (09:00→21:58)
[2017-12-03] MEDS: methylPREDNISolone SOD SUCC 40 MG/1 ML VIAL IV PUSH SCH (09:00)
--- NOTE | 2017-12-03 09:58 | HHI.NPPN ---
Subjective Renal Failure: Acute History of Present Illness This is a 77-year-old male with past medical history of ischemic heart disease, atrial fibrillation, congestive heart failure, possibly diastolic dysfunction, diabetes mellitus, chronic obstructive pulmonary disease, was admitted on 11/14 with respiratory distress. Nephrology was called to see the patient because of elevated BUN and creatinine. The patient has creatinine of 1.1 on admission, which increased after 2 or 3 to 1.3-1.5 and for the last 2 days, it has been going up and now it is 2.8. The patient was initially diagnosed with pneumonia and was started on antibiotics and then later on, patient developed respiratory failure and was intubated. He was also found to have asystole on 11/27 for 3 minutes and CPR was done with ACLS protocol, and it was shown that he has large right-sided pneumothorax. The blood pressure has been stable and there are no significant hypotensive episodes documented. Most of the history was taken from he patient' s chart. Additional Remarks Intubated nodding head to questions. Seen during dialysis. (Adeola Velez) Review of Systems General General Remarks Unable to do ROS as patient is intubated (Adeola Velez) Objective Data Data Vital Signs Date Time Temp Pulse Resp B/P (MAP) Pulse Ox O2 Delivery O2 Flow Rate FiO2 12/03/17 08:19 100 35 12/03/17 06:00 92 12/03/17 04:08 100 35 12/03/17 04:00 35 12/03/17 04:00 98.3 96 31 108/54 (72) 97 12/03/17 04:00 96 12/03/17 02:00 93 12/03/17 00:00 97.9 104 36 110/65 (80) 93 12/03/17 00:00 104 12/03/17 00:00 104 110/65 12/03/17 00:00 35 12/02/17 23:50 92 35 12/02/17 23:00 100 117/60 12/02/17 22:00 108 12/02/17 21:37 101 104/66 12/02/17 20:48 99 35 12/02/17 20:00 106 12/02/17 20:00 35 12/02/17 20:00 98.8 106 4 101/60 (74) 98 4/5/18 19:30 101 98/54 12/02/17 18:00 67 12/02/17 16:09 92 35 12/02/17 16:00 98.6 74 34 118/86 (97) 81 12/02/17 16:00 64 12/02/17 16:00 35 12/02/17 14:00 77 12/02/17 14:00 72 101/55 12/02/17 12:55 99 35 12/02/17 12:00 98.5 71 42 82/52 (62) 12/02/17 12:00 35 12/02/17 12:00 75 12/02/17 11:00 80/44 12/02/17 10:30 99 50 12/02/17 10:00 82 (Adeola Velez) -: 12/03/17 0530 12/03/17 0530 Imaging Last Impressions Chest X-Ray 12/03/17 0600 Signed Impressions: Service Date/Time: Sunday, December 03, 2017 04:44 - CONCLUSION: Right IJ center venous catheter now in place. No other significant interval change. Possible small right apical pneumothorax unchanged. Right-sided chest tube in place. Mild patchy left lung base opacity. Extensive subcutaneous emphysema bilaterally. Prosper Klein MD Liver Ultrasound 12/02/17 0000 Signed Impressions: Service Date/Time: November 21:57 - CONCLUSION: Nondiagnostic exam due to the presence of air in the abdomen. Tera Gibson MD Catheter Placement X-Ray 12/02/17 0000 Signed Impressions: Service Date/Time: November 10:47 - CONCLUSION: Uncomplicated right internal jugular Vas-Cath placement as above. incidental note is made of subcutaneous emphysema within the chest wall and neck Con Dennison MD Lower Extremity Ultrasound 11/29/17 0000 Signed Impressions: Service Date/Time: Wednesday, November 29, 2017 22:02 - CONCLUSION: Normal examination. Abdiel Mcintyre MD Renal Ultrasound 11/28/17 0000 Signed Impressions: Service Date/Time: Tuesday, November 28, 2017 20:30 - CONCLUSION: Nondiagnostic exam. Rashad Bose MD Tubes & Lines: Vas-Cath, Haynes (Gellermann,Adeola M. [employer]GAN PIPE VOICER) Physical Exam General Appearance: No Acute Distress, Obese (Kellen Velezne M. [employer] P[employer] VOICER) Eyes Eye Exam: Pupils Equal (Kellen Velezne M. [employer] P[employer] VOICER) Pulmonary Resp Exam: Breath Sounds Equal Resp Remarks SQ emphysema present Intubated CT right chest wall (Adeola Velez M. [employer] PIPE VOICER) Cardiology CV Exam: Regular (Kellen Velezne M. [employer] PIPE VOICER) Gastrointestinal/Abdomen GI Exam: Soft, Non-Tender, Distended (Kellen Velezne M. [employer] P[employer] VOICER) Genitourinary Exam: Flank Non-Tender (AmalialerKellen mercerne M. [employer] PIPE VOICER) Integumentary Skin Exam: Clear, Warm (Kellen Velezne M. [employer] PIPE VOICER) Extremeties Extremities Exam: Moderate Edema (Kellen Velezne M. [employer] P[employer] VOICER) Neurologic Neuro Exam: Awake (Aedola Velez. ORGAN PIPE VOICER) Assessment/Plan Assessment Summary: DAVID/Acute Renal Failure Problem List: (1) DAVID (acute kidney injury) ICD Codes: N17.9 - Acute kidney failure, unspecified Plan: Acute kidney injury most likely related to prerenal vs acute tubular necrosis, either from the infection or related to his cardiac status and cardiac arrest. Renal US unable to visualize kidneys or bladder? UOP continues to be minimal Potassium WNL Creatinine continues to rise at 5.01 from 4.59 today Plan Renal dose antibiotics Continue for follow UOP and BMP Avoid nephrotoxins as possible. Dialysis yesterday Epogen with dialysis Seen during HD today tolerating well. (2) Respiratory failure ICD Codes: J96.90 - Respiratory failure, unspecified, unspecified whether with hypoxia or hypercapnia Plan: Intubated weaning per CC (Adeola Velez. ORGAN PIPE VOICER) Problem List: (1) DAVID (acute kidney injury) ICD Codes: N17.9 - Acute kidney failure, unspecified Plan: Acute kidney injury most likely related to prerenal vs acute tubular necrosis, either from the infection or related to his cardiac status and cardiac arrest. Renal US unable to visualize kidneys or bladder? UOP continues to be minimal Potassium WNL Creatinine continues to rise at 5.01 from 4.59 today Plan Renal dose antibiotics Continue for follow UOP and BMP Avoid nephrotoxins as possible. Dialysis yesterday Epogen with dialysis Seen during HD today tolerating well. Patient seen and examined, agree with above. HD today, possibly will need HD in AM. D/W the at bed side. (2) Respiratory failure ICD Codes: J96.90 - Respiratory failure, unspecified, unspecified whether with hypoxia or hypercapnia Plan: Intubated weaning per CC (America Vela MD) Adeola Velez Dec 03, 2017 09:58 America Vela MD Dec 03, 2017 17:37
--- NOTE | 2017-12-03 11:13 | HHI.HCPN ---
Reason for visit a. To assist with evaluation and management of symptoms including: Dyspnea, pain, encephalopathy b. To assist medical decision maker(s) with: better understanding of current medical conditions; weighing benefits/burdens of medical treatment options; making medical treatment decisions. (Linda Gilbert) Subjective/Interval History Patient seen to follow-up on symptom management and goals of care. He is awake on the vent and intermittent following commands. He is undergoing dialysis at this time. Dialysis is limited by borderline hypotension. Mental status is more alert today. Able to nod to yes/no questions. Following commands better today. Labs show WBC 17.6, hemoglobin 8.9 (10.4), hematocrit 27.8 (33.7), platelets 184 (326), prothrombin time 10.7, INR 1.1, sodium 142, potassium 4.3, BUN 118, creatinine 4.72, random glucose 80, protein corrected calcium 7.7, phosphorus 8.5, magnesium 2.8, total protein 5.3. Chest x-ray today shows extensive bilateral subcutaneous emphysema with new right IJ Vas- Cath, minimal right apical pneumothorax, unchanged. Right chest tube remains with 1+ air leak. Vent settings PRVC/AC 35%/500/24/5. Plan for trach and PEG in process due to failure to wean. He has very poor tolerance of spontaneous breathing trials, developing tachypnea and decreasing oxygen saturation. GI evaluating to schedule PEG tube. Seen by primary nremt, Dr. Price who agrees with tracheostomy and is recommending aggressive physiotherapy. His edema is improving with dialysis and the use of sequential compression devices. . Family/friend interactions No family at bedside at this time. . (Linda Gilbert) Advance Directives Living Will: Never completed Health Care Surrogate: Never completed Durable Power of Merchandising Assistant: Never completed (Linda Gilbert) Objective Vital Signs Date Time Temp Pulse Resp B/P (MAP) Pulse Ox O2 Delivery O2 Flow Rate FiO2 12/03/17 08:19 100 35 12/03/17 06:00 92 12/03/17 04:08 100 35 12/03/17 04:00 35 12/03/17 04:00 98.3 96 31 108/54 (72) 97 12/03/17 04:00 96 12/03/17 02:00 93 12/03/17 00:00 97.9 104 36 110/65 (80) 93 12/03/17 00:00 104 12/03/17 00:00 104 110/65 12/03/17 00:00 35 12/02/17 23:50 92 35 12/02/17 23:00 100 117/60 12/02/17 22:00 108 12/02/17 21:37 101 104/66 12/02/17 20:48 99 35 12/02/17 20:00 106 12/02/17 20:00 35 12/02/17 20:00 98.8 106 4 101/60 (74) 98 12/02/17 19:30 101 98/54 12/02/17 18:00 67 12/02/17 16:09 92 35 12/02/17 16:00 98.6 74 34 118/86 (97) 81 12/02/17 16:00 64 12/02/17 16:00 35 12/02/17 14:00 77 12/02/17 14:00 72 101/55 12/02/17 12:55 99 35 12/02/17 12:00 98.5 71 42 82/52 (62) 12/02/17 12:00 35 12/02/17 12:00 75 12/02/17 11:00 80/44 Intake & Output 12/03/17 12/03/17 07:00 19:00 Intake Total 230 ml Output Total 120 ml 1000 ml Balance 110 ml -1000 ml IV Total 200 ml Tube Feeding 0 ml Other 30 ml Output Urine Total 20 ml Chest Tube Drainage Total 100 ml Hemodialysis 0 ml 1000 ml # Bowel Movements 1 Physical Exam CONSTITUTIONAL/GENERAL: This is an adequately nourished patient, in no apparent distress. TUBES/LINES/DRAINS: PIV's, ETT, left subclavian central line, right IJ Vas-Cath SKIN: No jaundice, rashes, or lesions. Ecchymoses on upper extremities. Lower extremities with small areas of skin breakdown secondary to edema. HEAD: Atraumatic. Normocephalic. EYES: Pupils equal and round and reactive. No scleral icterus. No injection or drainage. Fundi not examined. Significant eyelid swelling improving. CARDIOVASCULAR: Irregular rhythm, controlled rate, no rub murmur or gallop. No JVD. RESPIRATORY/CHEST: Symmetric, unlabored respirations. Diminished, scattered wheeze. Extensive crepitus. GASTROINTESTINAL: Abdomen soft, nondistended, obese. Bowel sounds present. Tube feeding held pending PEG placement. GENITOURINARY: Without palpable bladder distension. Haynes catheter in place. MUSCULOSKELETAL: Extremities without clubbing or cyanosis. 2+ dependent edema. NEUROLOGICAL: Intubated, unsedated, mostly following commands. PSYCHIATRIC: Calm, appropriate. . (Linda Gilbert) Diagnostic Tests Laboratory Laboratory Tests Test 12/01/17 07:05 12/01/17 15:35 12/02/17 04:29 12/02/17 05:35 White Blood Count 24.6 TH/MM3 (4.0-11.0) 25.0 TH/MM3 (4.0-11.0) Red Blood Count 4.20 MIL/MM3 (4.50-5.90) 3.96 MIL/MM3 (4.50-5.90) Hemoglobin 10.9 GM/DL (13.0-17.0) 10.4 GM/DL (13.0-17.0) Hematocrit 35.1 % (39.0-51.0) 33.7 % (39.0-51.0) Mean Corpuscular Volume 83.7 FL (80.0-100.0) 85.0 FL (80.0-100.0) Mean Corpuscular Hemoglobin 26.1 PG (27.0-34.0) 26.4 PG (27.0-34.0) Mean Corpuscular Hemoglobin Concent 31.2 % (32.0-36.0) 31.0 % (32.0-36.0) Red Cell Distribution Width 19.4 % (11.6-17.2) 18.9 % (11.6-17.2) Platelet Count 410 TH/MM3 (150-450) 326 TH/MM3 (150-450) Mean Platelet Volume 10.0 FL (7.0-11.0) 10.1 FL (7.0-11.0) Neutrophils (%) (Auto) 93.0 % (16.0-70.0) 94.0 % (16.0-70.0) Lymphocytes (%) (Auto) 2.4 % (9.0-44.0) 2.1 % (9.0-44.0) Monocytes (%) (Auto) 4.2 % (0.0-8.0) 3.8 % (0.0-8.0) Eosinophils (%) (Auto) 0.0 % (0.0-4.0) 0.0 % (0.0-4.0) Basophils (%) (Auto) 0.4 % (0.0-2.0) 0.1 % (0.0-2.0) Neutrophils # (Auto) 22.9 TH/MM3 (1.8-7.7) 23.5 TH/MM3 (1.8-7.7) Lymphocytes # (Auto) 0.6 TH/MM3 (1.0-4.8) 0.5 TH/MM3 (1.0-4.8) Monocytes # (Auto) 1.0 TH/MM3 (0-0.9) 1.0 TH/MM3 (0-0.9) Eosinophils # (Auto) 0.0 TH/MM3 (0-0.4) 0.0 TH/MM3 (0-0.4) Basophils # (Auto) 0.1 TH/MM3 (0-0.2) 0.0 TH/MM3 (0-0.2) CBC Comment DIFF FINAL DIFF FINAL Differential Comment Blood Urea Nitrogen 130 MG/DL (7-18) 138 MG/DL (7-18) Creatinine 4.59 MG/DL (0.60-1.30) 5.01 MG/DL (0.60-1.30) Random Glucose 200 MG/DL (74-106) 155 MG/DL (74-106) Total Protein 4.9 GM/DL (6.4-8.2) 5.0 GM/DL (6.4-8.2) Calcium Level 6.7 MG/DL (8.5-10.1) 6.8 MG/DL (8.5-10.1) Phosphorus Level 8.5 MG/DL (2.5-4.9) Magnesium Level 2.7 MG/DL (1.5-2.5) 2.9 MG/DL (1.5-2.5) Sodium Level 146 MEQ/L (136-145) 142 MEQ/L (136-145) Potassium Level 3.8 MEQ/L (3.5-5.1) 4.4 MEQ/L (3.5-5.1) Chloride Level 108 MEQ/L (98-107) 105 MEQ/L (98-107) Carbon Dioxide Level 23.7 MEQ/L (21.0-32.0) 21.4 MEQ/L (21.0-32.0) Anion Gap 14 MEQ/L (5-15) 16 MEQ/L (5-15) Estimat Glomerular Filtration Rate 12 ML/MIN (>89) 11 ML/MIN (>89) Protein Corrected Calcium 7.8 MG/DL (8.5-10.1) 7.9 MG/DL (8.5-10.1) Blood Gas Puncture Site RT RADIAL RT RADIAL Blood Gas Patient Temperature 98.6 98.6 Blood Gas HCO3 20 mmol/L (22-26) 19 mmol/L (22-26) Blood Gas Base Excess -5.6 mmol/L (-2-2) -6.3 mmol/L (-2-2) Blood Gas Oxygen Saturation 96 % (90-100) 96 % (90-100) Arterial Blood pH 7.30 (7.380-7.420) 7.29 (7.380-7.420) Arterial Blood Partial Pressure CO2 41 mmHg (38-42) 41 mmHg (38-42) Arterial Blood Partial Pressure O2 123 mmHg (61-120) 113 mmHg (61-120) Arterial Blood Oxygen Content 15.3 Vol % (12.0-20.0) 14.1 Vol % (12.0-20.0) Arterial Blood Carboxyhemoglobin 0.8 % (0-4) 0.8 % (0-4) Arterial Blood Methemoglobin 1.1 % (0-2) 1.2 % (0-2) Blood Gas Hemoglobin 11.2 G/DL (12.0-16.0) 10.4 G/DL (12.0-16.0) Oxygen Delivery Device VENTILATOR VENTILATOR Blood Gas Ventilator Setting [facility]/AC Blood Gas Inspired Oxygen 35 % 35 % Test 12/03/17 05:30 White Blood Count 17.6 TH/MM3 (4.0-11.0) Red Blood Count 3.31 MIL/MM3 (4.50-5.90) Hemoglobin 8.9 GM/DL (13.0-17.0) Hematocrit 27.8 % (39.0-51.0) Mean Corpuscular Volume 84.1 FL (80.0-100.0) Mean Corpuscular Hemoglobin 26.9 PG (27.0-34.0) Mean Corpuscular Hemoglobin Concent 32.0 % (32.0-36.0) Red Cell Distribution Width 19.0 % (11.6-17.2) Platelet Count 184 TH/MM3 (150-450) Mean Platelet Volume 9.9 FL (7.0-11.0) Neutrophils (%) (Auto) 94.7 % (16.0-70.0) Lymphocytes (%) (Auto) 1.9 % (9.0-44.0) Monocytes (%) (Auto) 3.3 % (0.0-8.0) Eosinophils (%) (Auto) 0.0 % (0.0-4.0) Basophils (%) (Auto) 0.1 % (0.0-2.0) Neutrophils # (Auto) 16.7 TH/MM3 (1.8-7.7) Lymphocytes # (Auto) 0.3 TH/MM3 (1.0-4.8) Monocytes # (Auto) 0.6 TH/MM3 (0-0.9) Eosinophils # (Auto) 0.0 TH/MM3 (0-0.4) Basophils # (Auto) 0.0 TH/MM3 (0-0.2) CBC Comment DIFF FINAL Differential Comment Prothrombin Time 10.7 SEC (9.8-11.6) Prothromb Time International Ratio 1.1 RATIO Blood Urea Nitrogen 118 MG/DL (7-18) Creatinine 4.72 MG/DL (0.60-1.30) Random Glucose 80 MG/DL (74-106) Total Protein 5.3 GM/DL (6.4-8.2) Calcium Level 6.8 MG/DL (8.5-10.1) Phosphorus Level 8.5 MG/DL (2.5-4.9) Magnesium Level 2.8 MG/DL (1.5-2.5) Sodium Level 142 MEQ/L (136-145) Potassium Level 4.3 MEQ/L (3.5-5.1) Chloride Level 103 MEQ/L (98-107) Carbon Dioxide Level 21.7 MEQ/L (21.0-32.0) Anion Gap 17 MEQ/L (5-15) Estimat Glomerular Filtration Rate 12 ML/MIN (>89) Protein Corrected Calcium 7.7 MG/DL (8.5-10.1) (Linda Gilbert) Result Diagram: 12/03/17 0530 12/03/17 0530 Microbiology Microbiology Date/Time Source Procedure Growth Status 11/29/17 18:50 Blood Peripheral Aerobic Blood Culture - Preliminary NO GROWTH IN 4 DAYS Resulted 11/29/17 18:50 Blood Peripheral Anaerobic Blood Culture - Preliminary NO GROWTH IN 4 DAYS Resulted 11/26/17 14:05 Sputum Endotracheal Gram Stain - Final Complete 11/26/17 14:05 Sputum Culture - Final Pseudomonas Aeruginosa Multi-Drug Resistant S. Aureus Mrsa Complete 11/28/17 10:00 Urine Catheterized Urine Urine Culture - Final Nette Glabrata Complete Imaging Last Impressions Chest X-Ray 12/03/17 0600 Signed Impressions: Service Date/Time: Sunday, December 03, 2017 04:44 - CONCLUSION: Right IJ center venous catheter now in place. No other significant interval change. Possible small right apical pneumothorax unchanged. Right-sided chest tube in place. Mild patchy left lung base opacity. Extensive subcutaneous emphysema bilaterally. Prosper Klein MD Liver Ultrasound 12/02/17 0000 Signed Impressions: Service Date/Time: November 21:57 - CONCLUSION: Nondiagnostic exam due to the presence of air in the abdomen. Tera Gibson MD Catheter Placement X-Ray 12/02/17 0000 Signed Impressions: Service Date/Time: November 10:47 - CONCLUSION: Uncomplicated right internal jugular Vas-Cath placement as above. incidental note is made of subcutaneous emphysema within the chest wall and neck Con Dennison MD Lower Extremity Ultrasound 11/29/17 0000 Signed Impressions: Service Date/Time: Wednesday, November 29, 2017 22:02 - CONCLUSION: Normal examination. Abdiel Mcintyre MD Renal Ultrasound 11/28/17 0000 Signed Impressions: Service Date/Time: Tuesday, November 28, 2017 20:30 - CONCLUSION: Nondiagnostic exam. Rashad Bose MD Procedures 11/16: Endotracheal intubation 11/18: Endotracheal intubation 11/27: Right-sided pigtail catheter placement to the right pleural cavity 11/27: Right chest tube placement 4/5: Vas-Cath placement . (Linda Gilbert) Assessment and Plan Disease Oriented Problem List: (1) COPD (chronic obstructive pulmonary disease) (2) Respiratory distress (3) CHF (congestive heart failure) (4) ADRIAN (obstructive sleep apnea) (5) Diabetes mellitus type 2, insulin dependent Symptom Scale: (1) Dyspnea and respiratory abnormalities (2) Pain, generalized Pertinent Non-Medical Issues Psychosocial: He was born in [place] and moved to [place] many years ago. 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 Spiritual: [employer] pool. Legal: No legal issues noted. Ethical issues impacting care: No ethical issues noted. . Important Contacts : Cony Varela . Prognosis His prognosis is poor. He has significant lung compromise requiring a trilogy ventilator at home with multiple recurrent admissions for pulmonary compromise. He developed cardiac arrest requiring CPR with subsequent pneumothorax of the right lung. His renal indices continue to increase and he is now at risk of requiring dialysis. His transaminases are also rising, possible liver shock. His condition is frail and he is at significant risk for continued complications and decline. Code Status: Full Code Plan PLAN: Legal decision maker: Patient is not capacitated to make his decisions. His Cony is his legal proxy. Goals: Aggressive CODE STATUS: FULL CODE SYMPTOMS: * Dyspnea: Multifactorial to include chronic obstructive pulmonary disease, right pneumothorax, atrial fibrillation, diastolic heart failure, fluid volume excess. He is currently mechanically ventilated will progress to trach and PEG planned today. * Pain: No complaint of pain today. Currently on fentanyl drip at 50 mcg an hour. * Encephalopathy: Multifactorial to include recent sedation, renal failure, hypoxia, sepsis. Improving with dialysis. Palliative care will continue to follow the patient during hospital course as condition evolves, to assist patient/decision-maker with understanding of their medical conditions, weighing benefits/burdens of treatment options, for clarification of goals of treatment. Additionally will assist with any symptoms of palliative concern. . (Linda Gilbert) Attestation To help prompt me to consider important information that might be impacting today's encounter and assessment, information from prior notes written by myself or my colleagues may have been "brought forward" into today's note. My signature on this note, however, is an attestation that I personally performed the exam, history, and/or decision-making noted today, and, unless otherwise indicated, the interactions with patient, family, and staff as well as the review of records all occurred today. I also attest that the listed assessment and stated plan reflect my best clinical judgment today based on the combination of historical information, prior notes, and today's exam/ interactions. When time spent is documented, it refers only to time spent today by the signer, or if indicated, combined time spent today by collaborating physician/nurse practitioner. . (Linda Gilbert) Collaborating MD Comments Chart reviewed. Case discussed with palliative care WATER RECLAMATION SYSTEMS OPERATOR. Above WATER RECLAMATION SYSTEMS OPERATOR note reviewed and I concur. . (Jabari Maldonado MD) Linda Gilbert Dec 03, 2017 11:13 Jabari Maldonado MD Dec 06, 2017 05:52
--- NOTE | 2017-12-03 12:56 | HHI.IDPN ---
Note Infectious Disease Note ID follow-up. Chart reviewed. Patient on the ventilator. He is alert. Afebrile. Blood pressure is stable. Status post dialysis earlier. 1 L of fluid removed. Plan for tracheostomy and PEG noted. Chest tube in place on the right due to pneumothorax. Blood pressure stable. 77-year-old, white male who presents to the Emergency Department with shortness of breath. The patient has a history of COPD and CHF. He usually uses CPAP at the assisted living facility. He was noted to have been developing coughing and shortness of breath over the past couple of days, and his states that he was coughing a lot yesterday and bringing up mostly phlegm and that he was restless and could not sleep. She states that he was mostly awake over the For 24 hours before being brought to emergency department. Recently treated at [facility] for pneumonia due to methicillin-resistant Staphylococcus aureus. His states that he was still on the oral antibiotic for pneumonia and that he has 2 more days of the medication to complete therapy with Zyvox. PAST MEDICAL HISTORY: COPD, CHF, atrial fibrillation, insulin-dependent diabetes mellitus, hypertension, hyperlipidemia, gastroesophageal reflux, gastroparesis, iron deficiency anemia, oxygen-dependent. PAST SURGICAL HISTORY: Right knee surgery, right carpal tunnel release, cardiac ablation treatment 2002. ALLERGIES: ASPIRIN, CODEINE. MEDICATIONS: Current Medications Medications (Trade) Dose Ordered Sig/Yani Route PRN Reason Start Time Stop Time Status Last Admin Dose Admin Sodium Chloride (NS Flush) 2 ml UNSCH PRN IV FLUSH FLUSH AFTER USING IV ACCESS 11/14/17 15:45 11/17/17 14:05 Sodium Chloride (NS Flush) 2 ml BID IV FLUSH 11/14/17 21:00 12/03/17 08:28 Acetaminophen (Tylenol) 650 mg Q6H PRN PO PAIN 1-10 AND/OR FEVER >101F 11/14/17 15:45 11/29/17 11:01 Ondansetron HCl (Zofran Inj) 4 mg Q6H PRN IV PUSH NAUSEA OR VOMITING 11/14/17 15:45 11/18/17 16:03 Miscellaneous Information 1 Q361D XX 11/14/17 15:45 11/14/17 15:45 Chlorhexidine Gluconate (Chlorhexidine 2% Cloth) Taper DAILY@04 TOP 11/15/17 04:00 11/11/18 03:59 11/29/17 04:00 Chlorhexidine Gluconate (Chlorhexidine 2% Cloth) 3 pack UNSCH PRN TOP HYGIENIC CARE 11/14/17 15:45 Senna/Docusate Sodium (Ricarda-Colace) 1 tab BID PO 11/14/17 21:00 12/02/17 21:41 Magnesium Hydroxide (Milk Of Magnesia Liq) 30 ml Q12H PRN PO Mild constipation 11/14/17 15:45 Sennosides (Senokot) 17.2 mg Q12H PRN PO Moderate constipation 11/14/17 15:45 Bisacodyl (Dulcolax Supp) 10 mg DAILY PRN RECTAL SEVERE CONSITIPATION 11/14/17 15:45 Lactulose (Lactulose Liq) 30 ml DAILY PRN PO SEVERE CONSITIPATION 11/14/17 15:45 Apixaban (Eliquis) 5 mg BID PO 11/14/17 21:00 Future Hold 11/27/17 20:17 Atorvastatin Calcium (Lipitor) 80 mg HS PO 11/14/17 21:00 12/02/17 21:41 Digoxin (Lanoxin) 0.125 mg DAILY PO 11/15/17 09:00 Future Hold 11/17/17 08:24 Diltiazem HCl (Cardizem) 60 mg QID PO 11/14/17 18:00 12/01/17 12:55 Metoprolol Tartrate (Lopressor) 50 mg BID PO 11/14/17 21:00 12/02/17 09:18 Patient Own Medication PT OWN MED: Mometas... HS INH 11/14/17 21:00 Future Hold Hydralazine HCl (Apresoline Inj) 20 mg Q4H PRN IV PUSH SYS BP GREATER THAN 160 MMHG 11/17/17 12:00 11/22/17 07:38 Methylprednisolone Sodium Succinate (SoluMEDROL INJ) 40 mg DAILY IV PUSH 11/19/17 09:00 12/02/17 09:19 Budesonide/ Formoterol Fumarate (Symbicort 160-4.5 Mcg Inh) 2 puff Q12HR INH 11/18/17 21:00 12/03/17 08:16 Chlorhexidine Gluconate (Peridex 0.12% Liq) 15 ml BID@08,20 MT 11/19/17 08:00 12/03/17 08:00 Albuterol/ Ipratropium (Duoneb Neb) 1 ampule Q2HR NEB PRN INH WHEEZING 11/18/17 22:30 12/03/17 04:07 Famotidine (Pepcid) 10 mg BID PO 11/22/17 21:00 12/02/17 21:41 Dexmedetomidine HCl 1000 mcg/ Sodium Chloride 250 ml @ 5.05 mls/hr TITRATE PRN IV Desired RASS 11/23/17 22:45 11/26/17 20:30 Insulin Detemir (Levemir Inj) 25 units Q12HR SQ 11/26/17 21:00 12/01/17 20:17 Insulin Aspart (NovoLOG SUPPLEMENTAL SCALE) 1 Q4HR SQ 11/26/17 16:00 12/02/17 04:32 Dextrose (D50w (Vial) Inj) 25 ml UNSCH PRN IV HYPOGLYCEMIA-SEE COMMENTS 11/26/17 15:30 12/03/17 08:42 Glucagon (Glucagon Inj) 1 mg UNSCH PRN IM/SQ HYPOGLYCEMIA-SEE COMMENTS 11/26/17 15:30 Linezolid (Zyvox) 600 mg Q12HR PO 11/27/17 09:30 12/02/17 21:41 Fentanyl Citrate 250 ml @ 5 mls/hr TITRATE PRN IV SEDATION 11/27/17 13:45 12/03/17 08:58 Meropenem 500 mg/ Sodium Chloride 100 ml @ 200 mls/hr Q12H IV 11/28/17 17:00 12/03/17 04:56 Heparin Sodium (Porcine) (Heparin Inj) 5,000 units Q12HR SQ 11/28/17 21:00 12/02/17 21:41 Metoprolol Tartrate (Lopressor Inj) 5 mg Q6H PRN IV PUSH heart rate greater than 135/mi 11/29/17 09:15 Amiodarone HCl 450 mg/Sodium Chloride 259 ml @ 33.33 mls/ hr Q7H47M PRN IV Per Protocol 11/29/17 07:39 12/01/17 20:35 Norepinephrine Bitartrate 250 ml @ 7.5 mls/hr TITRATE PRN IV Blood pressure management 11/30/17 04:15 12/01/17 13:53 Terbutaline Sulfate (Brethine Inj) 1 mg UNSCH PRN SQ For Extravasation 11/30/17 04:15 Fluconazole (Diflucan) 400 mg DAILY PO 12/02/17 09:00 12/02/17 09:19 Sodium Chloride 1,000 ml @ 0 mls/hr Q0M PRN OTHER For Prime & Rinse Back 12/02/17 09:30 Heparin Sodium (Porcine) (Heparin Inj) 8,000 units UNSCH PRN IV FLUSH WITH DIALYSIS 12/02/17 09:30 Sodium Chloride 1,000 ml @ 200 mls/hr Q5H PRN IV WITH DIALYSIS 12/02/17 09:30 Sodium Chloride 1,000 ml @ 0 mls/hr Q0M PRN OTHER WITH DIALYSIS 12/02/17 09:30 Mannitol (Mannitol Inj) 12.5 gm UNSCH PRN IV WITH DIALYSIS 12/02/17 09:30 12/02/17 19:05 Albumin Human 100 ml @ 60 mls/hr UNSCH PRN IV WITH DIALYSIS 12/02/17 09:30 12/02/17 19:08 Sodium Chloride (NS Flush) 5 ml UNSCH PRN IV FLUSH WITH DIALYSIS 12/02/17 09:30 Heparin Sodium (Porcine) (Heparin Inj) UNSCH PRN .XX WITH DIALYSIS 12/02/17 09:30 12/02/17 19:04 Gentamicin Sulfate (Gentamicin Inj) 20 mg UNSCH PRN OTHER WITH DIALYSIS 12/02/17 09:30 12/02/17 19:05 Ondansetron HCl (Zofran Inj) 4 mg UNSCH PRN IV PUSH WITH DIALYSIS 12/02/17 09:30 Acetaminophen (Tylenol) 650 mg UNSCH PRN PO for headach, pain, temp > 101F 12/02/17 09:30 Diphenhydramine HCl (Benadryl) 25 mg UNSCH PRN PO for hives/itching/anaphylaxis 12/02/17 09:30 Nitroglycerin (Nitrostat Sl) 0.4 mg UNSCH PRN SL CHEST PAIN 12/02/17 09:30 Clonidine (Catapres) 0.1 mg UNSCH PRN PO for BP > 180/100 X 2 readings 12/02/17 09:30 Epoetin Kvng (Epogen Inj) 4,000 units UNSCH PRN IV PUSH WITH DIALYSIS 12/02/17 09:30 Gelatin (Gelfoam 12 Mm/7 Mm Top) 1 foam UNSCH PRN TOP SEE LABEL COMMENTS 12/02/17 09:30 Sodium Chloride (NS Flush) UNSCH PRN IV FLUSH SEE PROTOCOL 12/02/17 11:15 Heparin Sodium (Porcine) (Heparin Inj) UNSCH PRN IV FLUSH SEE PROTOCOL 12/02/17 11:15 OBJECTIVE: Vital Signs Date Time Temp Pulse Resp B/P (MAP) Pulse Ox O2 Delivery O2 Flow Rate FiO2 12/03/17 11:17 97 35 12/03/17 08:19 100 35 12/03/17 06:00 92 12/03/17 04:08 100 35 12/03/17 04:00 35 12/03/17 04:00 98.3 96 31 108/54 (72) 97 12/03/17 04:00 96 12/03/17 02:00 93 12/03/17 00:00 97.9 104 36 110/65 (80) 93 12/03/17 00:00 104 12/03/17 00:00 104 110/65 12/03/17 00:00 35 12/02/17 23:50 92 35 12/02/17 23:00 100 117/60 12/02/17 22:00 108 12/02/17 21:37 101 104/66 12/02/17 20:48 99 35 12/02/17 20:00 106 12/02/17 20:00 35 12/02/17 20:00 98.8 106 4 101/60 (74) 98 12/02/17 19:30 101 98/54 12/02/17 18:00 67 12/02/17 16:09 92 35 12/02/17 16:00 98.6 74 34 118/86 (97) 81 12/02/17 16:00 64 12/02/17 16:00 35 12/02/17 14:00 77 12/02/17 14:00 72 101/55 12/02/17 12:55 99 35 Laboratory Tests Test 12/02/17 05:35 12/03/17 05:30 White Blood Count 25.0 TH/MM3 17.6 TH/MM3 Red Blood Count 3.96 MIL/MM3 3.31 MIL/MM3 Hemoglobin 10.4 GM/DL 8.9 GM/DL Hematocrit 33.7 % 27.8 % Mean Corpuscular Volume 85.0 FL 84.1 FL Mean Corpuscular Hemoglobin 26.4 PG 26.9 PG Mean Corpuscular Hemoglobin Concent 31.0 % 32.0 % Red Cell Distribution Width 18.9 % 19.0 % Platelet Count 326 TH/MM3 184 TH/MM3 Mean Platelet Volume 10.1 FL 9.9 FL Neutrophils (%) (Auto) 94.0 % 94.7 % Lymphocytes (%) (Auto) 2.1 % 1.9 % Monocytes (%) (Auto) 3.8 % 3.3 % Eosinophils (%) (Auto) 0.0 % 0.0 % Basophils (%) (Auto) 0.1 % 0.1 % Neutrophils # (Auto) 23.5 TH/MM3 16.7 TH/MM3 Lymphocytes # (Auto) 0.5 TH/MM3 0.3 TH/MM3 Monocytes # (Auto) 1.0 TH/MM3 0.6 TH/MM3 Eosinophils # (Auto) 0.0 TH/MM3 0.0 TH/MM3 Basophils # (Auto) 0.0 TH/MM3 0.0 TH/MM3 CBC Comment DIFF FINAL DIFF FINAL Differential Comment Laboratory Tests Test 12/02/17 05:35 12/03/17 05:30 Blood Urea Nitrogen 138 MG/DL 118 MG/DL Creatinine 5.01 MG/DL 4.72 MG/DL Random Glucose 155 MG/DL 80 MG/DL Total Protein 5.0 GM/DL 5.3 GM/DL Calcium Level 6.8 MG/DL 6.8 MG/DL Magnesium Level 2.9 MG/DL 2.8 MG/DL Sodium Level 142 MEQ/L 142 MEQ/L Potassium Level 4.4 MEQ/L 4.3 MEQ/L Chloride Level 105 MEQ/L 103 MEQ/L Carbon Dioxide Level 21.4 MEQ/L 21.7 MEQ/L Anion Gap 16 MEQ/L 17 MEQ/L Estimat Glomerular Filtration Rate 11 ML/MIN 12 ML/MIN Protein Corrected Calcium 7.9 MG/DL 7.7 MG/DL Phosphorus Level 8.5 MG/DL IMAGING: Chest X-Ray 12/03/17 0600 Signed Impressions: Service Date/Time: Sunday, December 03, 2017 04:44 - CONCLUSION: Right IJ center venous catheter now in place. No other significant interval change. Possible small right apical pneumothorax unchanged. Right-sided chest tube in place. Mild patchy left lung base opacity. Extensive subcutaneous emphysema bilaterally. Prosper Klein MD Chest X-Ray 12/02/17 0600 Signed Impressions: Service Date/Time: November 04:07 - CONCLUSION: Slight improvement in aeration Abdiel Mcintyre MD Liver Ultrasound 12/02/17 0000 Signed Impressions: Service Date/Time: November 21:57 - CONCLUSION: Nondiagnostic exam due to the presence of air in the abdomen. Tera Gibson MD Catheter Placement X-Ray 12/02/17 0000 Signed Impressions: Service Date/Time: November 10:47 - CONCLUSION: Uncomplicated right internal jugular Vas-Cath placement as above. incidental note is made of subcutaneous emphysema within the chest wall and neck Con Dennison MD Chest X-Ray 12/01/17 1430 Signed Impressions: Service Date/Time: Friday, December 01, 2017 15:04 - CONCLUSION: Residual 8mm right apical pneumothorax with right chest tube in place. Bilateral pleural effusions. Shaq Eisenberg MD PHYSICAL EXAMINATION: GENERAL: Sedated. Awake. HEENT: No icterus. EOMI. Moist mucosa. NECK: No swelling or adenopathy. LUNGS: Decreased breath sounds and basilar rhonchi. HEART: Regular without audible murmurs. ABDOMEN: Bowel sounds present, obese, soft. Non tender. EXTREMITIES: 2+ edema of the lower extremities, bilateral. No clubbing or cyanosis. SKIN: No diffuse rash. NEUROLOGIC: Nonfocal. PSYCHIATRIC: Calm and cooperative. IMPRESSION: 1. Probable sepsis. 2. Pneumonia Pseudomonas MDR/MRSA. 3. Acute respiratory failure. Vent dependent. Extubated previously and appears to have aspirated. 4. Leukocytosis. WBC increased again. 5. Nette glabrata UTI. 6. Right-sided pneumothorax. Subcutaneous emphysema. 7. History of chronic obstructive pulmonary disease and recent chronic obstructive pulmonary disease exacerbation. 8. Renal insufficiency. RECOMMENDATIONS: 1. Continue Zyvox. 2. Continue meropenem. 3. Continue Diflucan. 4. Monitor white blood cell count. 5. Monitor cultures. 6. Monitor clinical status. Discussed with RN. Discussed with at bedside. Tom Long MD Dec 03, 2017 12:56
[2017-12-03] MEDS ORDERED: PROPOFOL 1000 MG/100 ML INJ 100 ML IV PRN (15:30)
[2017-12-03] MEDS ORDERED: MIDAZOLAM HCL 5 MG/ML VIAL (1 ML) IV PUSH ONE (15:30)
--- NOTE | 2017-12-03 16:36 | GIPROC ---
[facility] [address] [facility]. [facility], [address] EGD WITH PEG PROCEDURE REPORT EXAM DATE: 12/03/2017 PATIENT NAME: Abdiel Varela MR#: [id number] BIRTHDATE: 1940 ATTENDING: Cindy Wilder MD ORDER #: [id number] CONTRACTS SPECIALIST: Ector Del Valle and Dior Goodwin STATUS: inpatient INDICATIONS: The patient is a 77 yr old male here for an EGD with PEG due to dysphagia PROCEDURE PERFORMED: EGD with PEG placement MEDICATIONS: Per Anesthesia and None. TOPICAL ANESTHETIC: CONSENT: The patient understands the risks and benefits of the procedure and understands that these risks include, but are not limited to: sedation, allergic reaction, infection, perforation and/or bleeding. Alternative means of evaluation and treatment include, among others: physical exam, x-rays, and/or surgical intervention. The patient elects to proceed with this endoscopic procedure. medical equipment was checked for proper function. Hand hygiene and appropriate measures for infection prevention was taken. After the risks, benefits and alternatives of the procedure were thoroughly explained, Informed consent was verified, confirmed and timeout was successfully executed by the treatment team. The patient was anesthetized with topical anesthesia and the Pentax [id number] endoscope was introduced through the mouth and advanced to the third portion of the duodenum. The instrument was slowly withdrawn as the mucosa was fully examined. An ulcer was found in the antrum. PIGMENTED. nO BLEEDING The stomach was then inflated with air, and by a combination of transillumination and manual palpation, the site for the gastrostomy tube placement was selected and marked on the anterior abdominal wall. The skin of the anterior abdomen was surgically prepped and draped with sterile towels. Utilizing strict sterile technique, the selected site was then anesthetized with 1% xylocaine by injection into the skin and subcutaneous tissue. A 1 cm incision was made through the skin and subcutaneous tissue, and the needle/cannula assembly was then passed through the abdominal wall and through the anterior wall of the stomach, maintaining visualization with the endoscope. A snare device previously placed through the instrument channel was then opened and placed around the cannula, the needle was removed, and the insertion wire was passed through the cannula and into the stomach lumen. The snare was then loosened from the cannula, and repositioned to snare the insertion wire. The snare was then pulled up to the endoscope distal tip, and the scope was then withdrawn bringing with it the snare and insertion wire. The insertion wire was then released from the snare, and then loop-attached to the Bard 20 Fr gastrostomy tube. Using the "pull technique", the G-tube was then pulled into place by traction on the insertion wire at the abdominal wall end. The G-tube insertion site was then cleansed once again, and the external bolster was placed over the tube to secure it to the abdominal wall. A sterile dressing was then applied, and the procedure terminated. no abnormalities The gastroscope was then slowly withdrawn and removed. ADVERSE EVENT: There were no complications. IMPRESSIONS: 1. An ulcer was found in the antrum 2. No abnormalities RECOMMENDATIONS: PEG recomendations: 1- NPO for 6 hours except for meds 2- Flush PEG tube every 6 hours with water and after each PEG feeding 3- May resume regular diet in the morning 4- May use Ensure or Boost etc. for PEG tube feeding REPEAT EXAM: Return 2 week(s) EGD Cindy Wilder MD eSigned: Cindy Wilder MD 12/03/2017 4:35 PM cc: PATIENT NAME: Abdiel Varela MR#: [id number]
[2017-12-03] MEDS ORDERED: CALCIUM GLUCONATE INJ 2 GM in DEXTROSE 5% IN WATER 100ML INJ 100 ML IV ONE ×2 (17:00)
--- NOTE | 2017-12-03 17:04 | HHI.CCPN ---
Subjective Remarks/Hospital Course This is a 77-year-old male with a medical history significant for COPD, CHF, A. fib, diabetes, that presented to emergency department from [facility] for evaluation of worsening shortness of breath over the last 3 days. The patient was been given Solu-Medrol 125 mg and 2 albuterol treatments enroute to ED. Upon presentation to the ED the patient was on a nonrebreather. He was tachypneic and tachycardic. Patient's medical history significant for MRSA pneumonia previously admitted on 10/27/16 for approximately [address] [facility]. The patient is normally on 2.5 L/m nasal cannula O2 home dependency, and he lives with ( normally) a PCO2 in the 80s according to his . Patient was then discharged to [facility], and then transferred to [facility] for rehabilitation. He has been on an unknown antibiotic per the family and steroids for the last 3 days. Laboratory and imaging studies were performed with noted elevation in CO2 The patient was given empiric antibiotics in the ED and placed on BiPAP. Critical care medicine was consulted. Subjective: 11/15: Patient maintained on BiPAP throughout the night O2 saturations 97-98% on FiO2 of 0.40. Hemodynamically stable. Attempts made to wean patient to nasal cannula this a.m. unsuccessful, patient's O2 saturation in the 70s, patient placed back on BiPAP. Chest x-ray pending WBC count significantly diminished, leukocytosis resolved. Patient extremely anxious, Precedex infusion initiated. 11/16: Late entry note. Patient seen 10 AM. Overnight the patient converted to A. fib RVR, despite being on Cardizem 4 times a day and metoprolol twice a day- home medications, the patient received IV Cardizem followed by amiodarone infusion. Per report the patient became hypotensive, Cardizem discontinued. Amiodarone continued. Early this a.m. patient was resting comfortably A. fib rate controlled rate. The patient suddenly converted to A. fib RVR heart rate 150s-160s, acute hypoxemic respiratory failure, requiring intubation. The patient was intubated uneventfully and continues on amiodarone at 0.5 mg/hour, rate now controlled in conjunction with sedation. Cardiology consulted, his hedis specialist is Dr. Reyes X-ray revealed lung consolidation improved, chest x- ray clear. Plan for CPAP trials in a.m.. 11/17: No acute events overnight. Patient had 1 short 8 beat run of V. tach last evening was self resolution, electrolytes within normal limits. The patient continues on amiodarone 0.5 mg/hr. CPAP trials initiated this a.m.. Tube feeds initiated at trickle feeds. Patient converted to sinus rhythm at 2 AM. 11/18 Patient remains sedated and intubated. Afebrile. 11/19 Patient was extubated yesterday however last night he was noted to choke on water provided by the family. Stat ABG demonstrated acute hypercapnic respiratory failure and was emergently intubated. Currently sedated and intubated. 11/20 Patient remains intubated on Fentanyl drip however he si awake and alert. Afebrile. 11/21 Patient is awake and alert placed on CPAP with PS:15, PEEP:5. Afebrile. 11/22 Patient remains intubated , did not tolerate CPAP trials yesterday as he became tachycardic and hypertensive. On no sedation awake and alert. 11/23 No events overnight, off sedation. 11/24: Resting comfortably on mechanical ventilation currently. Daily C Pap trials ongoing. 11/25: Sedated with Precedex, orally intubated on mechanical ventilation. Daily C Pap trials 11/26: Sedated with Precedex, orally intubated on mechanical ventilation. Got tachypneic with CPAP trial today hence placed back on PRVC. Spiked a fever, garcia cultures ordered. Went into A. fib with RVR subsequently for which being initiated on amiodarone bolus followed by drip and Lopressor 5 mg IV every 6 as needed for 11/27: This morning patient developed bradycardia followed by asystole for which she had 3 minutes CPR with ACLS protocol with return of spontaneous circulation. Post code chest x-ray revealed moderate to large right pneumothorax for which a right pigtail catheter was placed by me however despite airleak patient continue have moderate to large pneumothorax hence a second right sided 28 Belgian chest tube was placed to -40 cm water pressure. Air leaks 1+ in both pigtail catheter and chest tube. Patient remains in a flutter currently. Dr. reyes evaluated patient as well following cardiac arrest. 11/28: Sedated, arousable, orally intubated on mechanical ventilation. Worsening renal function noted. MDR Pseudomonas in sputum. Right sided chest tube/ pigtail catheter with 1+ air leak in both. Subcutaneous emphysema noted over right side of face neck and right upper extremity. On 50% FiO2, PEEP +5. Poor urine output for which 500 cc and is bolus given earlier. Treated for hyperkalemia with Kayexalate PO, glucose insulin, calcium IV. 4/2: Remains sedated, arousable, orally intubated on mechanical ventilation. A. fib with RVR this morning for which she was loaded with amiodarone and initiated on amiodarone drip. Spiking fever 103.5. ID adjusting antibiotics. Stool for C. difficile ordered as he had some diarrhea today though received Kayexalate yesterday for hyperkalemia. Pigtail catheter on the right side appeared to be dislodged hence this was removed. 28 Belgian chest tube in right pleural cavity repositioned. 11/30: Late entry note , patient seen at 12 noon. Creatinine continues to trend upward.Sedated but easily arousable. 12/01: Patient lightly sedated, following commands this a.m.. Creatinine noted increased, possible dialysis consideration for tomorrow. Patient to be diuresed today. CPAP trial initiated failed after 5 minutes, repeat this afternoon. 12/02: Patient placed on Lasix infusion throughout the night . No renal improvement,creatinine worsened today , plan for Vas-Cath placement and IHD today. This extensive discussion with patient and plans for tracheostomy and PEG tube placement secondary to failure to wean. 12/03: Late entry note, patient seen at 11 am. Patient scheduled for PEG placement today by Dr. Iglesias. Patient continues to fail CPAP trials. Plan for tracheostomy in the near future Objective Vital Signs Date Time Temp Pulse Resp B/P (MAP) Pulse Ox O2 Delivery O2 Flow Rate FiO2 12/03/17 15:44 98 100 12/03/17 14:00 110 12/03/17 04:00 98.3 31 108/54 (72) Intake and Output 12/03/17 12/03/17 12/04/17 08:00 16:00 00:00 Intake Total 30 ml Output Total 120 ml 1000 ml Balance -90 ml -1000 ml Result Diagram: 12/03/17 0530 12/03/17 0530 Imaging Last Impressions Chest X-Ray 12/03/17 0600 Signed Impressions: Service Date/Time: Sunday, December 03, 2017 04:44 - CONCLUSION: Right IJ center venous catheter now in place. No other significant interval change. Possible small right apical pneumothorax unchanged. Right-sided chest tube in place. Mild patchy left lung base opacity. Extensive subcutaneous emphysema bilaterally. Prosper Klein MD Liver Ultrasound 12/02/17 Signed Impressions: Service Date/Time: November 21:57 - CONCLUSION: Nondiagnostic exam due to the presence of air in the abdomen. Tera Gibson MD Catheter Placement X-Ray 12/02/17 Signed Impressions: Service Date/Time: November 10:47 - CONCLUSION: Uncomplicated right internal jugular Vas-Cath placement as above. incidental note is made of subcutaneous emphysema within the chest wall and neck Con Dennison MD Lower Extremity Ultrasound 11/29/17 Signed Impressions: Service Date/Time: Wednesday, November 29, 2017 22:02 - CONCLUSION: Normal examination. Abdiel Mcintyre MD Renal Ultrasound 11/28/17 0000 Signed Impressions: Service Date/Time: Tuesday, November 28, 2017 20:30 - CONCLUSION: Nondiagnostic exam. Rashad Bose MD Last 48 hours Impressions Chest X-Ray 11/29/17 Signed Impressions: Service Date/Time: Wednesday, November 29, 2017 09:58 - CONCLUSION: 1. More cephalad , [facility] loop thoracostomy tube is now back out of the pleural space and position in the deep tissues of the upper right hemithorax. The lower, surgical thoracostomy tube has backed out slightly with the side port just on the inside of the chest wall in the pleural space. 2. Stable right-sided pneumothorax measuring 1.3 cm in depth. 3. Stable, extensive deep tissue and subcutaneous emphysematous changes. Stable bibasilar airspace disease. 4. Interval placement of a left IJ central venous catheter with tip projecting over the central venous system. No left-sided pneumothorax. 5. Otherwise, endotracheal and nasogastric tubes are grossly stable in position. Omid Traore MD Renal Ultrasound 11/28/17 0000 Signed Impressions: Service Date/Time: Tuesday, November 28, 2017 20:30 - CONCLUSION: Nondiagnostic exam. Rashad oBse MD Chest X-Ray 11/28/17 0000 Signed Impressions: Service Date/Time: Tuesday, November 28, 2017 02:32 - CONCLUSION: 1. 2 right- sided chest tubes with small right pneumothorax. Extensive subcutaneous air. Mild basilar airspace disease. Tera Gibson MD Chest X-Ray 11/27/17 1745 Signed Impressions: Service Date/Time: Monday, November 27, 2017 17:44 - CONCLUSION: Slight decrease in pneumothorax size. Rashad Bose MD Last Impressions Chest X-Ray 11/21/17 0000 Signed Impressions: Service Date/Time: Tuesday, November 21, 2017 10:03 - CONCLUSION: Left basilar streakiness consistent with atelectasis and/or infiltrate. Hossein Torres MD Objective Remarks GENERAL: Patient is 77 yo intubated awake nodding yes and no to questions SKIN: Warm and dry. HEAD: Normocephalic. Subcutaneous emphysema involving right side of face neck shoulder and arm. EYES: No scleral icterus. No injection or drainage. NECK: Supple, trachea midline. No JVD or lymphadenopathy. CARDIOVASCULAR: S1-S2 irregularly irregular, no gallop or murmur. RESPIRATORY: Orally intubated on mechanical ventilation, air entry decreased over right lung field, scattered rhonchi bilaterally, no wheezing. Right sided chest tube with 1+ airleak. Subcutaneous emphysema or right chest wall, neck, right side of face and right upper extremity. GASTROINTESTINAL: Abdomen soft, non-tender, nondistended. MUSCULOSKELETAL: Bilateral peripheral edema Neuro: Awake, orally intubated, on mechanical ventilation, following commands moves extremities 4 A/P Problem List: (1) A-fib ICD Code: I48.91 - Unspecified atrial fibrillation (2) CHF (congestive heart failure) ICD Code: I50.9 - Heart failure, unspecified Status: Chronic (3) HTN (hypertension) ICD Code: I10 - Essential (primary) hypertension Status: Chronic (4) ADRIAN (obstructive sleep apnea) ICD Code: G47.33 - Obstructive sleep apnea (adult) (pediatric) Status: Chronic (5) MRSA pneumonia ICD Code: J15.212 - Pneumonia due to Methicillin resistant Staphylococcus aureus Status: Acute (6) Diabetes mellitus type 2, insulin dependent ICD Code: E11.9 - Type 2 diabetes mellitus without complications; 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 Status: Chronic (7) COPD (chronic obstructive pulmonary disease) ICD Code: J44.9 - Chronic obstructive pulmonary disease, unspecified Status: Acute (8) Respiratory distress ICD Code: R06.03 - Acute respiratory distress Status: Acute (9) Leukocytosis ICD Code: D72.829 - Elevated white blood cell count, unspecified Status: Acute (10) Lung consolidation ICD Code: J18.1 - Lobar pneumonia, unspecified organism Status: Acute (11) Anxiety ICD Code: F41.9 - Anxiety disorder, unspecified Status: Chronic Assessment and Plan Plan by systems: Neurologic: 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 Neuro checks per ICU protocol Hold gabapentin 300mmg q HS home med 12/01-patient following commands, moving extremities 4 Patient GCS 11 T-responding to commands Respiratory: Acute respiratory failure on mechanical ventilation- extubated and reintubated night of 11/18 after he was noted to choke on water provided by family. COPD exacerbation Pneumonia-MRSA Right sided pneumothorax following CPR status post pigtail catheter/chest tube placement 11/27 Obstructive sleep apnea Home O2 dependency Continue with vent support keep sats >92% Bronchodilators, methylprednisolone 40 mg IV daily Pulmonology - Dr Price, Right sided chest tube in place with 1+ air leak. Continue 28 F right chest tube to -40 cm water pressure with underwater seal. Right sided pigtail catheter removed as it appeared to be this last and out of the pleural cavity on chest x-ray on 11/29 12/02 general surgery consult for tracheostomy Cardiovascular: A. fib RVR Cardiac arrest - asystole, status post CPR 11/27 History of CHF CAD atorvastatin 80 daily at bedtime, metoprolol 50 mg twice a day, Cardizem 60 mg 4 times a day . Eliquis held from 11/27 in view of anticipated procedures. Patient already had 2 chest tubes placed on 11/27. By mouth beta naomy, Cardizem resumed. Amiodarone 150 mg bolus followed by a drip resumed 11/29 due to A. fib with RVR.. Lopressor 2.5 mg IV every 6 hourly as needed for heart rate greater than 130 Cardiology - Dr. Reyes-discussed with Dr. Reyes following cardiac arrest on 11/27 Echo showed EF 65-70% Amiodarone infusion discontinued 12/02 Renal: DAVID Hyperkalemia Monitor renal function, electrolytes replacement per protocol. Treated for hyperkalemia with Kayexalate, glucose insulin and calcium on 11/28. Consulted nephrology and discussed with Dr. Ragland. 12/02 Vas-Cath placement plan for initiation of IHD creatinine 5.0 FEN/GI: Electrolyte derangement GERD Tolerating tube feeds with Jevity 1.5 at goal. Pepcid for GI prophylaxis Replete electrolytes per ICU 12/03 PEG tube placement Heme/ID: Pneumonia MRSA positive-on 10/27 Leukocytosis ID following- Antibiotics per ID (on by mouth Zyvox, IV Levaquin, fluconazole), started on meropenem on 11/28 for MDR Pseudomonas in sputum. Being started on IV micafungin. Stool for C. difficile ordered on 11/29 in view of persistent fever and started on by mouth vancomycin. 11/14 Obtain blood , urine - NGTD 11/16 sputum cultures- Kleb pneumonia 11/26 sputum cultures growing multidrug resistant Pseudomonas/MRSA 11/28 urine culture growing yeast 11/26 blood culture neg Endocrine: Glucose monitoring per ICU protocol-low dose regimen -- SSI(high scale) Levemir increased from 14u Q12 to 25 units every 12 hourly Prophylaxis: GI Prophylaxis Famotidine BID DVT Prophylaxis -- SCDs Held home dose Eliquis 5 mg BID on 11/27 in view of anticipated procedures. Start heparin 5000 units subcutaneously every 8 hourly for DVT prophylaxis on 11/28. Lines: Left IJ central line placed 11/28iscussed with patient's son regarding current clinical status and plan of care at bedside and he voiced understanding and was agreeable. Explained possible need for tracheostomy and PEG tube placement. Plan of care with patient's this morning on 11/29 understanding. Prognosis appears poor. Consulted palliative care to assist with deciding goals of therapy 12/02-patient and family requests aggressive measures continue to be instituted. Tracheostomy and PEG placement planned. IHD to be instituted today my billing statement This patient remains critically ill with one or more organ systems which are or may become a threat to life. I have spent in excess of 30 minutes discontinuously in the care and management of this patient. This time is exclusive of procedures, and includes, but is not limited to, evaluation of the patient, review of the medical record, discussions with family, consultants, nursing staff, or respiratory therapy, and documentation in the medical record. D/W Mrs. Varela, and SADDLE CUTTER at bedside. Physician Lacy Rodriguez Problem Qualifiers (1) COPD (chronic obstructive pulmonary disease): Qualified Codes: J44.9 - Chronic obstructive pulmonary disease, unspecified (2) Leukocytosis: Qualified Codes: D72.829 - Elevated white blood cell count, unspecified Lacy Rodriguez MD Dec 03, 2017 17:04
[2017-12-03] MEDS: LINEZOLID 600 MG TAB PO SCH ×2 (17:20→21:58)
[2017-12-03] MEDS: FLUCONAZOLE 200 MG TAB PO SCH (17:20)
[2017-12-03] MEDS: ATORVASTATIN 80 MG TAB PO SCH (21:58)
[2017-12-04] VITALS (18 sets, daily range): BP systolic 87–113; BP diastolic 52–66; PULSE 60–105; RESP 23–24; TEMP 97.4–98.6; O2SAT 98–100
[2017-12-04] MEDS: INSULIN ASPART SUPPLEMENTAL SCALE SQ SCH ×6 (01:17→20:00)
[2017-12-04] MEDS: DEXTROSE 50% IN WATER 50 ML VIAL(D50) IV PRN (01:18)
[2017-12-04] MEDS ORDERED: DEXTROSE 10% INJ 1,000 ML IV SCH (01:30)
[2017-12-04] MEDS: CHLORHEXIDINE GLUCONATE 2 % 1 PACK (2 CLOTHS) TOP SCH (04:00)
[2017-12-04] MEDS: MEROPENEM INJ 500 MG in SODIUM CHLORIDE 0.9% INJ 100 ML IV SCH ×2 (05:38→18:23)
--- NOTE | 2017-12-04 06:48 | RADRPT ---
EXAM DATE/TIME: 12/04/2017 05:13 [facility] COMPARISON: CHEST SINGLE AP, December 03, 2017, 4:44. INDICATIONS : Shortness of breath, possible pulmonary disease. MEDICAL HISTORY : Congestive heart failure. Hypertension Chronic obstructive pulmonary disease. A-fib MRSA GERD BPH Diabetes SURGICAL HISTORY : Cardiac ablation ENCOUNTER: Subsequent ACUITY: 3 weeks PAIN SCORE: Non-responsive. LOCATION: Bilateral chest FINDINGS: Single AP view of the chest. Endotracheal tube, right-sided chest tube, and bilateral IJ central veno us catheters remain in place. Nasogastric tube no longer seen. Right-sided pneumothorax unchanged. Mi ld patchy left lung base opacity again seen. Extensive bilateral subcutaneous emphysema again seen. CONCLUSION: No significant neural change in right-sided pneumothorax or left lower lung zone parenchymal opacity. Nasogastric tube no longer seen. Prosper Klein MD on December 04, 2017 at 6:44 Board Certified Radiologist. This report was verified electronically.
[2017-12-04] MEDS: BUDESONIDE-FORMOTEROL 160/4.5 MCG INHALER INH SCH ×3 (07:32→21:30)
[2017-12-04] MEDS: SODIUM CHLORIDE 0.9% FLUSH 10 ML FLUSH IV FLUSH SCH ×2 (08:52→20:34)
[2017-12-04] MEDS: methylPREDNISolone SOD SUCC 40 MG/1 ML VIAL IV PUSH SCH (08:52)
[2017-12-04] MEDS: DOCUSATE SODIUM 50 MG/SENNA 8.6 MG TAB PO SCH ×2 (08:52→20:35)
[2017-12-04] MEDS: LINEZOLID 600 MG TAB PO SCH ×2 (08:52→20:35)
[2017-12-04] MEDS: HEPARIN SODIUM - SQ 10,000 UNITS/ML VIAL SQ SCH ×2 (08:53→20:36)
[2017-12-04] MEDS: FAMOTIDINE 20 MG TAB PO SCH ×2 (08:54→20:35)
[2017-12-04] MEDS: FLUCONAZOLE 200 MG TAB PO SCH (08:54)
[2017-12-04] MEDS: DILTIAZEM HCL 60 MG TAB PO SCH ×4 (09:00→20:35)
[2017-12-04] MEDS: METOPROLOL TARTRATE 50 MG TAB PO SCH (09:00)
[2017-12-04] MEDS: CHLORHEXIDINE 0.12% (ORAL KIT) 15 ML CUP MT SCH ×2 (09:09→20:33)
[2017-12-04] MEDS ORDERED: ALTEPLASE RECOMBINANT 2 MG VIAL INTRACATH ONE (10:30)
--- NOTE | 2017-12-04 11:24 | PD.CONS ---
HPI Service General Surgery Consult Requested By Dr. Rodriguez Reason for Consult Need for tracheostomy Primary Care Physician Brijesh Hernandez Jr, MD History of Present Illness Mr. Varela is a 77 yo M admitted for shortness of breath requiring intubation and ventilation. He was recently hospitalized at outside hospital for MRSA pneumonia. At this point, he has required intubation since 11/16 and request is made for tracheostomy placement. Review of Systems ROS Limitations: Clinical Condition, Intubated Past Family Social History Past Medical History Atrial fibrillation/atrial flutter Anxiety Congestive heart failure with preserved ejection fraction Hypertension COPD on home O2 and trilogy vent Diabetes type 2 GERD Obstructive sleep apnea on BiPAP at night Right carpal tunnel syndrome Depression/anxiety MRSA pneumonia Iron deficiency anemia Hyperlipidemia Gastroparesis Past Surgical History Cardiac ablation Right knee surgery Reported Medications Reported Meds & Active Scripts Active Prednisone 10 Mg Tab 10 Mg PO DIRECTED 30 Days 30mg po bid x 3 days, 20mg po bid x 4 days then 20mg po daily Novolog Inj (Insulin Aspart) 100 Unit/Ml Inj 1-12 Units SQ ACHS SLIDING SCALE 30 Days Linezolid 600 Mg Tab 600 Mg PO Q12H 7 Days Reported Lopressor (Metoprolol Tartrate) 50 Mg Tab 50 Mg PO BID Duoneb (Ipratropium-Albuterol Neb) 0.5-2.5 Mg/3 Ml Neb 3 Ml NEB TID Tylenol (Acetaminophen) 325 Mg Tab 650 Mg PO Q4H PRN Combivent Respimat Inh (Ipratropium-Albuterol Inh) 20-100 Long Term/Act Aero 1 Puff INH QID Thera-M (Multiple Vitamins W/ Minerals) 1 Tab 1 Tab PO DAILY Diltiazem (Diltiazem HCl) 60 Mg Tab 60 Mg PO QID Potassium Chloride ER (Potassium Chloride) 10 Meq Cap 10 Meq PO BID Bumetanide 2 Mg Tab 2 Mg PO BID Eliquis (Apixaban) 5 Mg Tab 5 Mg PO BID Lactulose Liq (Lactulose) 10 Gm/15 Ml Soln 15 Ml PO BID PRN Colace (Docusate Sodium) 100 Mg Capsule 100 Mg PO BID Lantus Inj (Insulin Glargine) 1,000 Unit/10 Ml Vial 60 Units SQ HS Asmanex 120 Act Twisthaler (Mometasone 120 Act Inh) 220 Mcg/Act Inh 1 Puff INH HS Gabapentin 300 Mg Cap 300 Mg PO HS Atorvastatin (Atorvastatin Calcium) 80 Mg Tab 80 Mg PO HS Miralax Powder (Polyethylene Glycol 3350 Powder) 17 Gm Powd 17 Gm PO DAILY Mix and dissolve one measuring capful (17 grams) in water or juice. Stiolto Respimat Inh (Tiotropium-Olodaterol Inh) 2.5-2.5 Mcg/Act Aero 2 Puff INH DAILY Digoxin 0.125 Mg Tab 0.125 Mg PO DAILY Alfuzosin ER 24 HR 10 Mg Tab 10 Mg PO DAILY Omeprazole 20 Mg Tab 20 Mg PO DAILY Allergies: Coded Allergies: aspirin (Unverified Allergy, Severe, 11/14/17) codeine (Verified Allergy, Severe, 11/14/17) Active Ordered Medications Current Medications Medications (Trade) Dose Ordered Sig/Yani Route Start Time Stop Time Status Last Admin (NS Flush) 2 ml UNSCH PRN IV FLUSH 11/14/17 15:45 11/17/17 14:05 (NS Flush) 2 ml BID IV FLUSH 11/14/17 21:00 12/04/17 08:52 (Tylenol) 650 mg Q6H PRN PO 11/14/17 15:45 11/29/17 11:01 (Zofran Inj) 4 mg Q6H PRN IV PUSH 11/14/17 15:45 11/18/17 16:03 Miscellaneous Information 1 Q361D XX 11/14/17 15:45 11/14/17 15:45 (Chlorhexidine 2% Cloth) 3 pack Taper DAILY@04 TOP 11/15/17 04:00 11/11/18 03:59 12/04/17 04:00 (Chlorhexidine 2% Cloth) 3 pack UNSCH PRN TOP 11/14/17 15:45 (Ricarda-Colace) 1 tab BID PO 11/14/17 21:00 12/04/17 08:52 (Milk Of Magnesia Liq) 30 ml Q12H PRN PO 11/14/17 15:45 (Senokot) 17.2 mg Q12H PRN PO 11/14/17 15:45 (Dulcolax Supp) 10 mg DAILY PRN RECTAL 11/14/17 15:45 (Lactulose Liq) 30 ml DAILY PRN PO 11/14/17 15:45 (Eliquis) 5 mg BID PO 11/14/17 21:00 Future Hold 11/27/17 20:17 (Lipitor) 80 mg HS PO 11/14/17 21:00 12/03/17 21:58 (Lanoxin) 0.125 mg DAILY PO 11/15/17 09:00 Future Hold 11/17/17 08:24 (Cardizem) 60 mg QID PO 11/14/17 18:00 12/03/17 21:58 (Lopressor) 50 mg BID PO 11/14/17 21:00 12/02/17 09:18 Patient Own Medication PT OWN MED: Mometas... HS INH 11/14/17 21:00 Future Hold (Apresoline Inj) 20 mg Q4H PRN IV PUSH 11/17/17 12:00 11/22/17 07:38 (SoluMEDROL INJ) 40 mg DAILY IV PUSH 11/19/17 09:00 12/04/17 08:52 (Symbicort 160-4.5 Mcg Inh) 2 puff Q12HR INH 11/18/17 21:00 12/04/17 07:32 (Peridex 0.12% Liq) 15 ml BID@08,20 MT 11/19/17 08:00 12/04/17 09:09 (Duoneb Neb) 1 ampule Q2HR NEB PRN INH 11/18/17 22:30 12/03/17 04:07 (Pepcid) 10 mg BID PO 11/22/17 21:00 12/04/17 08:54 Dexmedetomidine HCl 1000 mcg/ Sodium Chloride 250 ml @ 5.05 mls/hr TITRATE PRN IV 11/23/17 22:45 11/26/17 20:30 (Levemir Inj) 25 units Q12HR SQ 11/26/17 21:00 Future Hold 12/01/17 20:17 (NovoLOG SUPPLEMENTAL SCALE) 1 Q4HR SQ 11/26/17 16:00 12/02/17 04:32 (D50w (Vial) Inj) 25 ml UNSCH PRN IV 11/26/17 15:30 12/04/17 01:18 (Glucagon Inj) 1 mg UNSCH PRN IM/SQ 11/26/17 15:30 (Zyvox) 600 mg Q12HR PO 11/27/17 09:30 12/04/17 08:52 Fentanyl Citrate 250 ml @ 5 mls/hr TITRATE PRN IV 11/27/17 13:45 12/03/17 08:58 Meropenem 500 mg/ Sodium Chloride 100 ml @ 200 mls/hr Q12H IV 11/28/17 17:00 12/04/17 05:38 (Heparin Inj) 5,000 units Q12HR SQ 11/28/17 21:00 12/04/17 08:53 (Lopressor Inj) 5 mg Q6H PRN IV PUSH 11/29/17 09:15 Amiodarone HCl 450 mg/Sodium Chloride 259 ml @ 33.33 mls/ hr Q7H47M PRN IV 11/29/17 07:39 12/01/17 20:35 Norepinephrine Bitartrate 250 ml @ 7.5 mls/hr TITRATE PRN IV 11/30/17 04:15 12/01/17 13:53 (Brethine Inj) 1 mg UNSCH PRN SQ 11/30/17 04:15 (Diflucan) 400 mg DAILY PO 12/02/17 09:00 12/04/17 08:54 Sodium Chloride 1,000 ml @ 0 mls/hr Q0M PRN OTHER 12/02/17 09:30 (Heparin Inj) 8,000 units UNSCH PRN IV FLUSH 12/02/17 09:30 Sodium Chloride 1,000 ml @ 200 mls/hr Q5H PRN IV 12/02/17 09:30 Sodium Chloride 1,000 ml @ 0 mls/hr Q0M PRN OTHER 12/02/17 09:30 (Mannitol Inj) 12.5 gm UNSCH PRN IV 12/02/17 09:30 12/02/17 19:05 Albumin Human 100 ml @ 60 mls/hr UNSCH PRN IV 12/02/17 09:30 12/02/17 19:08 (NS Flush) 5 ml UNSCH PRN IV FLUSH 12/02/17 09:30 (Heparin Inj) UNSCH PRN .XX 12/02/17 09:30 12/02/17 19:04 (Gentamicin Inj) 20 mg UNSCH PRN OTHER 12/02/17 09:30 12/02/17 19:05 (Zofran Inj) 4 mg UNSCH PRN IV PUSH 12/02/17 09:30 (Tylenol) 650 mg UNSCH PRN PO 12/02/17 09:30 (Benadryl) 25 mg UNSCH PRN PO 12/02/17 09:30 (Nitrostat Sl) 0.4 mg UNSCH PRN SL 12/02/17 09:30 (Catapres) 0.1 mg UNSCH PRN PO 12/02/17 09:30 (Epogen Inj) 4,000 units UNSCH PRN IV PUSH 12/02/17 09:30 (Gelfoam 12 Mm/7 Mm Top) 1 foam UNSCH PRN TOP 12/02/17 09:30 (NS Flush) UNSCH PRN IV FLUSH 12/02/17 11:15 (Heparin Inj) UNSCH PRN IV FLUSH 12/02/17 11:15 Dextrose 1,000 ml @ 30 mls/hr Q24H IV 12/04/17 01:30 12/04/17 01:30 Family History Noncontributory Social History Patient's is present at the bedside. Physical Exam Vital Signs Vital Signs Date Time Temp Pulse Resp B/P (MAP) Pulse Ox O2 Delivery O2 Flow Rate FiO2 12/04/17 08:00 97.4 63 24 104/57 (73) 99 12/04/17 07:29 100 35 12/04/17 06:00 63 12/04/17 04:21 99 35 12/04/17 04:00 61 12/04/17 04:00 35 12/04/17 04:00 97.4 61 23 109/62 (78) 99 12/04/17 02:00 69 12/04/17 00:59 100 35 12/04/17 00:00 60 12/04/17 00:00 35 12/04/17 00:00 97.4 105 24 87/52 (64) 99 12/03/17 22:00 63 12/03/17 20:00 77 12/03/17 20:00 97.4 77 24 91/57 (68) 98 12/03/17 20:00 35 4/6/18 19:30 99 35 18 18:00 97 18 16:21 96 15 96/58 (71) 79 418 16:18 96 10 86/57 (67) 79 18 16:15 98 26 79/49 (59) 77 12/03/17 16:00 101 24 104/60 (75) 100 12/03/17 16:00 101 12/03/17 16:00 35 18 15:45 107 20 95/63 (74) 98 18 15:44 98 100 /02/14 15:30 99 24 88/54 (65) 93 18 15:15 109 24 117/67 (84) 98 12/03/17 15:00 108 27 109/59 (76) 90 12/03/17 14:45 109 28 120/56 (77) 90 12/03/17 14:30 111 29 122/60 (80) 90 12/03/17 14:15 116 32 117/65 (82) 91 12/03/17 14:00 110 12/03/17 14:00 110 30 112/58 (76) 91 12/03/17 13:45 112 31 124/61 (82) 91 12/03/17 13:30 118 35 117/59 (78) 89 12/03/17 13:15 114 31 104/63 (77) 90 12/03/17 13:00 118 32 110/63 (79) 91 12/03/17 12:45 120 31 108/63 (78) 90 12/03/17 12:30 119 37 122/56 (78) 91 12/03/17 12:15 114 23 113/57 (75) 97 12/03/17 12:00 114 18 12:00 97.9 114 40 124/70 (88) 89 12/03/17 12:00 35 /18 11:45 118 41 115/61 (79) 94 /02/14 11:30 118 33 112/69 (83) 93 Physical Exam GENERAL: Obese, ventilated HEAD: Normocephalic. Atraumatic. ENT: Orotracheal tube in place. NECK: Trachea midline. No scars. Palpable. CHEST: Ventilated on low O2 requirement. CARDIOVASCULAR: Regular rate. ABDOMEN: Soft SKIN: Warm, dry, nonjaundiced. Laboratory Laboratory Tests Test 12/03/17 18:04 Blood Gas Puncture Site RT RADIAL Blood Gas Patient Temperature 98.6 Blood Gas HCO3 22 Blood Gas Base Excess -2.2 Blood Gas Oxygen Saturation 98 Arterial Blood pH 7.40 Arterial Blood Partial Pressure CO2 36 Arterial Blood Partial Pressure O2 471 Arterial Blood Oxygen Content 14.3 Arterial Blood Carboxyhemoglobin 0.6 Arterial Blood Methemoglobin 1.2 Blood Gas Hemoglobin 9.4 Oxygen Delivery Device VENTILATOR Blood Gas Ventilator Setting A/C 550/24/5PEEP Blood Gas Inspired Oxygen 100 Date/Time Source Procedure Growth Status 12/03/17 13:20 Blood Peripheral Aerobic Blood Culture - Preliminary NO GROWTH IN 1 DAY Resulted 12/03/17 13:20 Blood Peripheral Anaerobic Blood Culture - Preliminary NO GROWTH IN 1 DAY Resulted 11/26/17 14:05 Sputum Endotracheal Gram Stain - Final Complete 11/26/17 14:05 Sputum Culture - Final Pseudomonas Aeruginosa Multi-Drug Resistant S. Aureus Mrsa Complete 11/28/17 10:00 Urine Catheterized Urine Urine Culture - Final Nette Glabrata Complete Result Diagram: 12/03/17 0530 12/03/17 0530 Assessment and Plan Assessment and Plan 77 yo M prolonged ventilation unable to be weaned. Plan for bedside tracheostomy. D/w his nurse. Discussed in detail with patient's . Duncan Calderon MD Dec 04, 2017 11:24
--- NOTE | 2017-12-04 13:36 | HHI.NPPN ---
Subjective Renal Failure: Acute History of Present Illness This is a 77-year-old male with past medical history of ischemic heart disease, atrial fibrillation, congestive heart failure, possibly diastolic dysfunction, diabetes mellitus, chronic obstructive pulmonary disease, was admitted on 11/14 with respiratory distress. Nephrology was called to see the patient because of elevated BUN and creatinine. The patient has creatinine of 1.1 on admission, which increased after 2 or 3 to 1.3-1.5 and for the last 2 days, it has been going up and now it is 2.8. The patient was initially diagnosed with pneumonia and was started on antibiotics and then later on, patient developed respiratory failure and was intubated. He was also found to have asystole on 11/27 for 3 minutes and CPR was done with ACLS protocol, and it was shown that he has large right-sided pneumothorax. The blood pressure has been stable and there are no significant hypotensive episodes documented. Most of the history was taken from he patient' s chart. Additional Remarks Intubated nodding head to questions. Review of Systems General General Remarks Unable to do ROS as patient is intubated Objective Data Data Vital Signs Date Time Temp Pulse Resp B/P (MAP) Pulse Ox O2 Delivery O2 Flow Rate FiO2 12/04/17 11:33 100 35 12/04/17 08:00 97.4 63 24 104/57 (73) 99 12/04/17 07:29 100 35 12/04/17 06:00 63 12/04/17 04:21 99 35 12/04/17 04:00 61 12/04/17 04:00 35 12/04/17 04:00 97.4 61 23 109/62 (78) 99 12/04/17 02:00 69 12/04/17 00:59 100 35 12/04/17 00:00 60 12/04/17 00:00 35 12/04/17 00:00 97.4 105 24 87/52 (64) 99 12/03/17 22:00 63 12/03/17 20:00 77 12/03/17 20:00 97.4 77 24 91/57 (68) 98 12/03/17 20:00 35 12/03/17 19:30 99 35 12/03/17 18:00 97 12/03/17 16:21 96 15 96/58 (71) 79 12/03/17 16:18 96 10 86/57 (67) 79 12/03/17 16:15 98 26 79/49 (59) 77 12/03/17 16:00 101 24 104/60 (75) 100 12/03/17 16:00 101 12/03/17 16:00 35 12/03/17 15:45 107 20 95/63 (74) 98 12/03/17 15:44 98 100 12/03/17 15:30 99 24 88/54 (65) 93 12/03/17 15:15 109 24 117/67 (84) 98 12/03/17 15:00 108 27 109/59 (76) 90 12/03/17 14:45 109 28 120/56 (77) 90 12/03/17 14:30 111 29 122/60 (80) 90 12/03/17 14:15 116 32 117/65 (82) 91 12/03/17 14:00 110 12/03/17 14:00 110 30 112/58 (76) 91 12/03/17 13:45 112 31 124/61 (82) 91 -: 12/03/17 0530 12/03/17 0530 Tubes & Lines: Vas-Cath, [place] Physical Exam General Appearance: No Acute Distress, Obese Eyes Eye Exam: Pupils Equal Pulmonary Resp Exam: Breath Sounds Equal Cardiology CV Exam: Regular Gastrointestinal/Abdomen GI Exam: Soft, Non-Tender, Distended Genitourinary Exam: Flank Non-Tender Integumentary Skin Exam: Clear, Warm Extremeties Extremities Exam: Moderate Edema Neurologic Neuro Exam: Awake Assessment/Plan Assessment Summary: DAVID/Acute Renal Failure Problem List: (1) DAVID (acute kidney injury) ICD Codes: N17.9 - Acute kidney failure, unspecified Plan: Acute kidney injury most likely related to prerenal vs acute tubular necrosis, either from the infection or related to his cardiac status and cardiac arrest. Renal US unable to visualize kidneys or bladder? UOP continues to be minimal Potassium WNL Plan Renal dose antibiotics Continue for follow UOP and BMP Avoid nephrotoxins as possible. Dialysis yesterday Patient will need hemodialysis today as BUN high edema present d/w HD team seen during dialysis UF1 L Tolerates it well, QB 300 (2) Respiratory failure ICD Codes: J96.90 - Respiratory failure, unspecified, unspecified whether with hypoxia or hypercapnia Plan: Intubated weaning per CC Almaz Ragland MD Dec 04, 2017 13:36
[2017-12-04] MEDS ORDERED: DEXT 5%-NACL 0.9% 1000 ML INJ 1,000 ML IV SCH (13:45)
--- NOTE | 2017-12-04 13:49 | HHI.GIFU ---
GI Follow-up Note Consult Follow-up Subjective: Patient laying in bed comfortably, no new complaints except sedated /intubated Objective: PHYSICAL EXAMINATION: Vitals signs stable No fever HEENT: Pupils round and reactive to light; normocephalic; atraumatic; no jaundice. Throat is clear. NECK: Neck is supple, no JVD, no lymphadenopathy. CHEST: Chest is clear to auscultation and percussion. CARDIAC: Regular rate and rhythm with no murmur gallop or rubs. ABDOMEN: Soft, nondistended, nontender; no hepatosplenomegaly; bowel sounds are present in all four quadrants. EXTREMITIES: No clubbing, cyanosis, or edema. SKIN: Normal; no rash; no jaundice. 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 Available Data (labs, X- Rays, Procedues) : Last Impressions Chest X-Ray 12/04/17 0600 Signed Impressions: Service Date/Time: Monday, December 04, 2017 05:13 - CONCLUSION: No significant neural change in right-sided pneumothorax or left lower lung zone parenchymal opacity. Nasogastric tube no longer seen. Prosper Klein MD Liver Ultrasound 12/02/17 0000 Signed Impressions: Service Date/Time: November 21:57 - CONCLUSION: Nondiagnostic exam due to the presence of air in the abdomen. Tera Gibson MD Catheter Placement X-Ray 12/02/17 0000 Signed Impressions: Service Date/Time: November 10:47 - CONCLUSION: Uncomplicated right internal jugular Vas-Cath placement as above. incidental note is made of subcutaneous emphysema within the chest wall and neck Con Dennison MD Lower Extremity Ultrasound 11/29/17 0000 Signed Impressions: Service Date/Time: Wednesday, November 29, 2017 22:02 - CONCLUSION: Normal examination. Abdiel Mcintyre MD Renal Ultrasound 11/28/17 0000 Signed Impressions: Service Date/Time: Tuesday, November 28, 2017 20:30 - CONCLUSION: Nondiagnostic exam. Rashad Bose MD Laboratory Tests Test 12/03/17 05:30 12/03/17 18:04 White Blood Count 17.6 TH/MM3 Red Blood Count 3.31 MIL/MM3 Hemoglobin 8.9 GM/DL Hematocrit 27.8 % Mean Corpuscular Volume 84.1 FL Mean Corpuscular Hemoglobin 26.9 PG Mean Corpuscular Hemoglobin Concent 32.0 % Red Cell Distribution Width 19.0 % Platelet Count 184 TH/MM3 Mean Platelet Volume 9.9 FL Neutrophils (%) (Auto) 94.7 % Lymphocytes (%) (Auto) 1.9 % Monocytes (%) (Auto) 3.3 % Eosinophils (%) (Auto) 0.0 % Basophils (%) (Auto) 0.1 % Neutrophils # (Auto) 16.7 TH/MM3 Lymphocytes # (Auto) 0.3 TH/MM3 Monocytes # (Auto) 0.6 TH/MM3 Eosinophils # (Auto) 0.0 TH/MM3 Basophils # (Auto) 0.0 TH/MM3 CBC Comment DIFF FINAL Differential Comment Prothrombin Time 10.7 SEC Prothromb Time International Ratio 1.1 RATIO Blood Urea Nitrogen 118 MG/DL Creatinine 4.72 MG/DL Random Glucose 80 MG/DL Total Protein 5.3 GM/DL Calcium Level 6.8 MG/DL Phosphorus Level 8.5 MG/DL Magnesium Level 2.8 MG/DL Sodium Level 142 MEQ/L Potassium Level 4.3 MEQ/L Chloride Level 103 MEQ/L Carbon Dioxide Level 21.7 MEQ/L Anion Gap 17 MEQ/L Estimat Glomerular Filtration Rate 12 ML/MIN Protein Corrected Calcium 7.7 MG/DL Blood Gas Puncture Site RT RADIAL Blood Gas Patient Temperature 98.6 Blood Gas HCO3 22 mmol/L Blood Gas Base Excess -2.2 mmol/L Blood Gas Oxygen Saturation 98 % Arterial Blood pH 7.40 Arterial Blood Partial Pressure CO2 36 mmHg Arterial Blood Partial Pressure O2 471 mmHg Arterial Blood Oxygen Content 14.3 Vol % Arterial Blood Carboxyhemoglobin 0.6 % Arterial Blood Methemoglobin 1.2 % Blood Gas Hemoglobin 9.4 G/DL Oxygen Delivery Device VENTILATOR Blood Gas Ventilator Setting A/C 550/24/5PEEP Blood Gas Inspired Oxygen 100 % Allergies Coded Allergies Type Severity Reaction Last Updated Verified aspirin Allergy Severe 11/14/17 No codeine Allergy Severe 11/14/17 Yes Active Scripts Medications Dose Route/Sig Max Daily Dose Days Date Category Dose Instructions Lopressor (Metoprolol Tartrate) 50 Mg Tab 50 Mg PO BID 11/14/17 Reported Duoneb (Ipratropium-Albuterol Neb) 0.5-2.5 Mg/3 Ml Neb 3 Ml NEB TID 11/14/17 Reported Tylenol (Acetaminophen) 325 Mg Tab 650 Mg PO Q4H PRN 11/14/17 Reported Combivent Respimat Inh (Ipratropium-Albuterol Inh) 20-100 Retirement/Act Aero 1 Puff INH QID 11/14/17 Reported Thera-M (Multiple Vitamins W/ Minerals) 1 Tab 1 Tab PO DAILY 11/14/17 Reported Prednisone 10 Mg Tab 10 Mg PO DIRECTED 30 11/07/17 Rx 30mg po bid x 3 days, 20mg po bid x 4 days then 20mg po daily Novolog Inj (Insulin Aspart) 100 Unit/Ml Inj 1-12 Units SQ ACHS SLIDING SCALE 30 11/07/17 Rx Linezolid 600 Mg Tab 600 Mg PO Q12H 7 11/07/17 Rx Diltiazem (Diltiazem HCl) 60 Mg Tab 60 Mg PO QID 11/06/17 Reported Potassium Chloride ER (Potassium Chloride) 10 Meq Cap 10 Meq PO BID 11/06/17 Reported Bumetanide 2 Mg Tab 2 Mg PO BID 11/06/17 Reported Eliquis (Apixaban) 5 Mg Tab 5 Mg PO BID 11/06/17 Reported Lactulose Liq (Lactulose) 10 Gm/15 Ml Soln 15 Ml PO BID PRN 11/06/17 Reported Colace (Docusate Sodium) 100 Mg Capsule 100 Mg PO BID 11/06/17 Reported Lantus Inj (Insulin Glargine) 1,000 Unit/10 Ml Vial 60 Units SQ HS 11/06/17 Reported Asmanex 120 Act Twisthaler (Mometasone 120 Act Inh) 220 Mcg/Act Inh 1 Puff INH HS 11/06/17 Reported Gabapentin 300 Mg Cap 300 Mg PO HS 11/06/17 Reported Atorvastatin (Atorvastatin Calcium) 80 Mg Tab 80 Mg PO HS 11/06/17 Reported Miralax Powder (Polyethylene Glycol 3350 Powder) 17 Gm Powd 17 Gm PO DAILY 11/06/17 Reported Mix and dissolve one measuring capful (17 grams) in water or juice. Stiolto Respimat Inh (Tiotropium-Olodaterol Inh) 2.5-2.5 Mcg/Act Aero 2 Puff INH DAILY 11/06/17 Reported Digoxin 0.125 Mg Tab 0.125 Mg PO DAILY 11/06/17 Reported Alfuzosin ER 24 HR 10 Mg Tab 10 Mg PO DAILY 11/06/17 Reported Omeprazole 20 Mg Tab 20 Mg PO DAILY 11/06/17 Reported ASSESSMENT/PLAN:Seen and examined, s/p peg. Start TF at 25cc/hr and increase rate as needed. Flush peg with 150cc of water Q shift. Discussed with nurse. GI will sign off. Thank you It was a pleasure seeing Abdiel Varela. Thank you for this consult. Entered by: Cindy Wood MD Dec 04, 2017 13:49
[2017-12-04 15:12] LABS: HEMOGLOBIN 9.8 GM/DL (13.0-17.0); MEAN CELL VOLUME 84.3 FL (80.0-100.0); MEAN CORPUSCULAR HEMOGLOBIN 26.7 PG (27.0-34.0); MEAN CORPUSCULAR HGB CONC 31.7 % (32.0-36.0); MEAN PLATELET VOLUME 10.3 FL (7.0-11.0); PLATELET COUNT 175 TH/MM3 (150-450); RED BLOOD COUNT 3.68 MIL/MM3 (4.50-5.90); RED CELL DISTRIBUTION WIDTH 19.9 % (11.6-17.2); WHITE BLOOD COUNT 22.3 TH/MM3 (4.0-11.0)
[2017-12-04 15:45] LABS: BICARBONATE 22.2 MEQ/L (21.0-32.0); CREATININE 4.29 MG/DL (0.60-1.30); MAGNESIUM 2.7 MG/DL (1.5-2.5); PHOSPHORUS 8.7 MG/DL (2.5-4.9)
[2017-12-04 16:05] LABS: CALCIUM-PROTEIN CORRECTED 7.8 MG/DL (8.5-10.1); TOTAL PROTEIN 5.5 GM/DL (6.4-8.2)
--- NOTE | 2017-12-04 18:52 | HHI.CCPN ---
Subjective Remarks/Hospital Course This is a 77-year-old male with a medical history significant for COPD, CHF, A. fib, diabetes, that presented to emergency department from [facility] for evaluation of worsening shortness of breath over the last 3 days. The patient was been given Solu-Medrol 125 mg and 2 albuterol treatments enroute to ED. Upon presentation to the ED the patient was on a nonrebreather. He was tachypneic and tachycardic. Patient's medical history significant for MRSA pneumonia previously admitted on 10/27/16 for approximately 12 days at [facility]. The patient is normally on 2.5 L/m nasal cannula O2 home dependency, and he lives with ( normally) a PCO2 in the 80s according to his . Patient was then discharged to [facility], and then transferred to [facility] for rehabilitation. He has been on an unknown antibiotic per the family and steroids for the last 3 days. Laboratory and imaging studies were performed with noted elevation in CO2 The patient was given empiric antibiotics in the ED and placed on BiPAP. Critical care medicine was consulted. Subjective: 11/15: Patient maintained on BiPAP throughout the night O2 saturations 97-98% on FiO2 of 0.40. Hemodynamically stable. Attempts made to wean patient to nasal cannula this a.m. unsuccessful, patient's O2 saturation in the 70s, patient placed back on BiPAP. Chest x-ray pending WBC count significantly diminished, leukocytosis resolved. Patient extremely anxious, Precedex infusion initiated. 11/16: Late entry note. Patient seen 10 AM. Overnight the patient converted to A. fib RVR, despite being on Cardizem 4 times a day and metoprolol twice a day- home medications, the patient received IV Cardizem followed by amiodarone infusion. Per report the patient became hypotensive, Cardizem discontinued. Amiodarone continued. Early this a.m. patient was resting comfortably A. fib rate controlled rate. The patient suddenly converted to A. fib RVR heart rate 150s-160s, acute hypoxemic respiratory failure, requiring intubation. The patient was intubated uneventfully and continues on amiodarone at 0.5 mg/hour, rate now controlled in conjunction with sedation. Cardiology consulted, his curb builder is Dr. Reyes X-ray revealed lung consolidation improved, chest x- ray clear. Plan for CPAP trials in a.m.. 11/17: No acute events overnight. Patient had 1 short 8 beat run of V. tach last evening was self resolution, electrolytes within normal limits. The patient continues on amiodarone 0.5 mg/hr. CPAP trials initiated this a.m.. Tube feeds initiated at trickle feeds. Patient converted to sinus rhythm at 2 AM. 11/18 Patient remains sedated and intubated. Afebrile. 11/19 Patient was extubated yesterday however last night he was noted to choke on water provided by the family. Stat ABG demonstrated acute hypercapnic respiratory failure and was emergently intubated. Currently sedated and intubated. 11/20 Patient remains intubated on Fentanyl drip however he si awake and alert. Afebrile. 11/21 Patient is awake and alert placed on CPAP with PS:15, PEEP:5. Afebrile. 11/22 Patient remains intubated , did not tolerate CPAP trials yesterday as he became tachycardic and hypertensive. On no sedation awake and alert. 11/23 No events overnight, off sedation. 11/24: Resting comfortably on mechanical ventilation currently. Daily C Pap trials ongoing. 11/25: Sedated with Precedex, orally intubated on mechanical ventilation. Daily C Pap trials 11/26: Sedated with Precedex, orally intubated on mechanical ventilation. Got tachypneic with CPAP trial today hence placed back on PRVC. Spiked a fever, garcia cultures ordered. Went into A. fib with RVR subsequently for which being initiated on amiodarone bolus followed by drip and Lopressor 5 mg IV every 6 as needed for 11/27: This morning patient developed bradycardia followed by asystole for which she had 3 minutes CPR with ACLS protocol with return of spontaneous circulation. Post code chest x-ray revealed moderate to large right pneumothorax for which a right pigtail catheter was placed by me however despite airleak patient continue have moderate to large pneumothorax hence a second right sided 28 Norwegian chest tube was placed to -40 cm water pressure. Air leaks 1+ in both pigtail catheter and chest tube. Patient remains in a flutter currently. Dr. reyes evaluated patient as well following cardiac arrest. 11/28: Sedated, arousable, orally intubated on mechanical ventilation. Worsening renal function noted. MDR Pseudomonas in sputum. Right sided chest tube/ pigtail catheter with 1+ air leak in both. Subcutaneous emphysema noted over right side of face neck and right upper extremity. On 50% FiO2, PEEP +5. Poor urine output for which 500 cc and is bolus given earlier. Treated for hyperkalemia with Kayexalate PO, glucose insulin, calcium IV. 4/2: Remains sedated, arousable, orally intubated on mechanical ventilation. A. fib with RVR this morning for which she was loaded with amiodarone and initiated on amiodarone drip. Spiking fever 103.5. ID adjusting antibiotics. Stool for C. difficile ordered as he had some diarrhea today though received Kayexalate yesterday for hyperkalemia. Pigtail catheter on the right side appeared to be dislodged hence this was removed. 28 Norwegian chest tube in right pleural cavity repositioned. 11/30: Late entry note , patient seen at 12 noon. Creatinine continues to trend upward.Sedated but easily arousable. 12/01: Patient lightly sedated, following commands this a.m.. Creatinine noted increased, possible dialysis consideration for tomorrow. Patient to be diuresed today. CPAP trial initiated failed after 5 minutes, repeat this afternoon. 12/02: Patient placed on Lasix infusion throughout the night . No renal improvement,creatinine worsened today , plan for Vas-Cath placement and IHD today. This extensive discussion with patient and plans for tracheostomy and PEG tube placement secondary to failure to wean. 12/03: Late entry note, patient seen at 11 am. Patient scheduled for PEG placement today by Dr. Iglesias. Patient continues to fail CPAP trials. Plan for tracheostomy in the near future 12/04: Late entry note . Patient seen earlier this am. Overnight the patient became hypoglycemic, secondary to n.p.o. status, post PEG placement. D10 was initiated at 30 cc/hr. Tube feeds reinitiated Jevity 1.5, 24 hours post PEG tube placed, D10 discontinued. Patient remains on fentanyl at 100 mics/hour, lightly sedated. Patient denies pain answering by nodding head to yes and no questions. Tracheostomy planned for Wednesday12/06/[address] Calderon. Objective Vital Signs Date Time Temp Pulse Resp B/P (MAP) Pulse Ox O2 Delivery O2 Flow Rate FiO2 12/04/17 16:10 100 35 12/04/17 08:00 97.4 63 24 104/57 (73) Intake and Output 12/04/17 12/04/17 12/05/17 08:00 16:00 00:00 Output Total 1000 ml Balance -1000 ml Result Diagram: 12/04/17 1230 12/04/17 1230 Imaging Last Impressions Chest X-Ray 12/04/17 0600 Signed Impressions: Service Date/Time: Monday, December 04, 2017 05:13 - CONCLUSION: No significant neural change in right-sided pneumothorax or left lower lung zone parenchymal opacity. Nasogastric tube no longer seen. Prosper Klein MD Liver Ultrasound 12/02/17 0000 Signed Impressions: Service Date/Time: November 21:57 - CONCLUSION: Nondiagnostic exam due to the presence of air in the abdomen. Tera Gibson MD Catheter Placement X-Ray 12/02/17 Signed Impressions: Service Date/Time: November 10:47 - CONCLUSION: Uncomplicated right internal jugular Vas-Cath placement as above. incidental note is made of subcutaneous emphysema within the chest wall and neck Con Dennison MD Lower Extremity Ultrasound 11/29/17 0000 Signed Impressions: Service Date/Time: Wednesday, November 29, 2017 22:02 - CONCLUSION: Normal examination. Abdiel Mcintyre MD Renal Ultrasound 11/28/17 0000 Signed Impressions: Service Date/Time: Tuesday, November 28, 2017 20:30 - CONCLUSION: Nondiagnostic exam. Rashad Bose MD Last Impressions Chest X-Ray 12/03/17 0600 Signed Impressions: Service Date/Time: Sunday, December 03, 2017 04:44 - CONCLUSION: Right IJ center venous catheter now in place. No other significant interval change. Possible small right apical pneumothorax unchanged. Right-sided chest tube in place. Mild patchy left lung base opacity. Extensive subcutaneous emphysema bilaterally. Prosper Klein MD Liver Ultrasound 12/02/17 0000 Signed Impressions: Service Date/Time: November 21:57 - CONCLUSION: Nondiagnostic exam due to the presence of air in the abdomen. Tera Gibson MD Catheter Placement X-Ray 12/02/17 Signed Impressions: Service Date/Time: November 10:47 - CONCLUSION: Uncomplicated right internal jugular Vas-Cath placement as above. incidental note is made of subcutaneous emphysema within the chest wall and neck Con Dennison MD Lower Extremity Ultrasound 11/29/17 0000 Signed Impressions: Service Date/Time: Wednesday, November 29, 2017 22:02 - CONCLUSION: Normal examination. Abdiel Mcintyre MD Renal Ultrasound 11/28/17 Signed Impressions: Service Date/Time: Tuesday, November 28, 2017 20:30 - CONCLUSION: Nondiagnostic exam. Rashad Bose MD Last 48 hours Impressions Chest X-Ray 11/29/17 Signed Impressions: Service Date/Time: Wednesday, November 29, 2017 09:58 - CONCLUSION: 1. More cephalad , Dixie loop thoracostomy tube is now back out of the pleural space and position in the deep tissues of the upper right hemithorax. The lower, surgical thoracostomy tube has backed out slightly with the side port just on the inside of the chest wall in the pleural space. 2. Stable right-sided pneumothorax measuring 1.3 cm in depth. 3. Stable, extensive deep tissue and subcutaneous emphysematous changes. Stable bibasilar airspace disease. 4. Interval placement of a left IJ central venous catheter with tip projecting over the central venous system. No left-sided pneumothorax. 5. Otherwise, endotracheal and nasogastric tubes are grossly stable in position. Omid Traore MD Renal Ultrasound 11/28/17 0000 Signed Impressions: Service Date/Time: Tuesday, November 28, 2017 20:30 - CONCLUSION: Nondiagnostic exam. Rashad Bose MD Chest X-Ray 11/28/17 Signed Impressions: Service Date/Time: Tuesday, November 28, 2017 02:32 - CONCLUSION: 1. 2 right- sided chest tubes with small right pneumothorax. Extensive subcutaneous air. Mild basilar airspace disease. Tera Gibson MD Chest X-Ray 11/27/17 5796 Signed Impressions: Service Date/Time: Monday, November 27, 2017 17:44 - CONCLUSION: Slight decrease in pneumothorax size. Rashad Bose MD Last Impressions Chest X-Ray 11/21/17 0000 Signed Impressions: Service Date/Time: Tuesday, November 21, 2017 10:03 - CONCLUSION: Left basilar streakiness consistent with atelectasis and/or infiltrate. Hossein Torres MD Objective Remarks GENERAL: Patient is 77 yo intubated awake nodding yes and no to questions SKIN: Warm and dry. HEAD: Normocephalic. Subcutaneous emphysema involving right side of face neck shoulder and arm. EYES: No scleral icterus. No injection or drainage. NECK: Supple, trachea midline. No JVD or lymphadenopathy. CARDIOVASCULAR: S1-S2 irregularly irregular, no gallop or murmur. RESPIRATORY: Orally intubated on mechanical ventilation, air entry decreased over right lung field, scattered rhonchi bilaterally, no wheezing. Right sided chest tube with 1+ airleak. Subcutaneous emphysema or right chest wall, neck, right side of face and right upper extremity. GASTROINTESTINAL: Abdomen soft, non-tender, nondistended. MUSCULOSKELETAL: Bilateral peripheral edema Neuro: Awake, orally intubated, on mechanical ventilation, following commands moves extremities 4 A/P Problem List: (1) A-fib ICD Code: I48.91 - Unspecified atrial fibrillation (2) CHF (congestive heart failure) ICD Code: I50.9 - Heart failure, unspecified Status: Chronic (3) HTN (hypertension) ICD Code: I10 - Essential (primary) hypertension Status: Chronic (4) ADRIAN (obstructive sleep apnea) ICD Code: G47.33 - Obstructive sleep apnea (adult) (pediatric) Status: Chronic (5) MRSA pneumonia ICD Code: J15.212 - Pneumonia due to Methicillin resistant Staphylococcus aureus Status: Acute (6) Diabetes mellitus type 2, insulin dependent ICD Code: E11.9 - Type 2 diabetes mellitus without complications; 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 Status: Chronic (7) COPD (chronic obstructive pulmonary disease) ICD Code: J44.9 - Chronic obstructive pulmonary disease, unspecified Status: Acute (8) Respiratory distress ICD Code: R06.03 - Acute respiratory distress Status: Acute (9) Leukocytosis ICD Code: D72.829 - Elevated white blood cell count, unspecified Status: Acute (10) Lung consolidation ICD Code: J18.1 - Lobar pneumonia, unspecified organism Status: Acute (11) Anxiety ICD Code: F41.9 - Anxiety disorder, unspecified Status: Chronic (12) Failure to wean from mechanical ventilation ICD Code: Z99.11 - Dependence on respirator [ventilator] status Assessment and Plan Plan by systems: Neurologic: 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 Neuro checks per ICU protocol Hold gabapentin 300mmg q HS home med 12/01-patient following commands, moving extremities 4 Patient GCS 11 T-responding to commands Respiratory: Acute respiratory failure on mechanical ventilation- extubated and reintubated night of 11/18 after he was noted to choke on water provided by family. COPD exacerbation Pneumonia-MRSA Right sided pneumothorax following CPR status post pigtail catheter/chest tube placement 11/27 Obstructive sleep apnea Home O2 dependency Continue with vent support keep sats >92% Bronchodilators, methylprednisolone 40 mg IV daily Pulmonology - Dr Price, Right sided chest tube in place with 1+ air leak. Continue 28 F right chest tube to -40 cm water pressure with underwater seal. Right sided pigtail catheter removed as it appeared to be this last and out of the pleural cavity on chest x-ray on 11/29 12/02 general surgery consult for tracheostomy-plan for tracheostomy 12/06 Dr. Calderon [id number] small apical pneumothorax Cardiovascular: A. fib RVR Cardiac arrest - asystole, status post CPR 11/27 History of CHF CAD atorvastatin 80 daily at bedtime, metoprolol 50 mg twice a day, Cardizem 60 mg 4 times a day . Eliquis held from 11/27 in view of anticipated procedures. Patient already had 2 chest tubes placed on 11/27. By mouth beta naomy, Cardizem resumed. Amiodarone 150 mg bolus followed by a drip resumed 11/29 due to A. fib with RVR.. Lopressor 2.5 mg IV every 6 hourly as needed for heart rate greater than 130 Cardiology - Dr. Reyes-discussed with Dr. Reyes following cardiac arrest on 11/27 Echo showed EF 65-70% Amiodarone infusion discontinued 12/02 Renal: DAVID Hyperkalemia Monitor renal function, electrolytes replacement per protocol. Treated for hyperkalemia with Kayexalate, glucose insulin and calcium on 11/28. Consulted nephrology and discussed with Dr. Ragland. 12/02 Vas-Cath placement plan for initiation of IHD . IHD scheduling per nephrology, 1 L removed today FEN/GI: Electrolyte derangement GERD 12/04 Resumed tube feeds with Jevity 1.5 goal, 50cc/hr. Pepcid for GI prophylaxis Replete electrolytes per ICU 12/03 PEG tube placement Heme/ID: Pneumonia MRSA positive-on 10/27 Leukocytosis ID following- Antibiotics per ID (on by mouth Zyvox, IV Levaquin, fluconazole), started on meropenem on 11/28 for MDR Pseudomonas in sputum, and started on IV micafungin. Stool for C. difficile ordered on 11/29 in view of persistent fever and started on by mouth vancomycin. 11/14 Obtain blood , urine - NGTD 11/16 sputum cultures- Kleb pneumonia 11/26 sputum cultures growing multidrug resistant Pseudomonas/MRSA 11/28 urine culture growing yeast 11/26 blood culture neg Endocrine: Glucose monitoring per ICU protocol-low dose regimen -- SSI(high scale) Levemir increased from 14u Q12 to 25 units every 12 hourly Prophylaxis: GI Prophylaxis Famotidine BID DVT Prophylaxis -- SCDs Held home dose Eliquis 5 mg BID on 11/27 in view of anticipated procedures Heparin 5000 units subcutaneously every 8 hourly for DVT prophylaxis on 11/28. Lines: Left IJ central line placed 11/28 11/28-Discussed with patient's son regarding current clinical status and plan of care at bedside and he voiced understanding and was agreeable. Explained possible need for tracheostomy and PEG tube placement. Plan of care with patient's this morning on 11/29 understanding. Prognosis appears poor. Consulted palliative care to assist with deciding goals of therapy 12/02-patient and family requests aggressive measures continue to be instituted. Tracheostomy planned for 12/06 my billing statement This patient remains critically ill with one or more organ systems which are or may become a threat to life. I have spent in excess of 30 minutes discontinuously in the care and management of this patient. This time is exclusive of procedures, and includes, but is not limited to, evaluation of the patient, review of the medical record, discussions with family, consultants, nursing staff, or respiratory therapy, and documentation in the medical record. D/W Dr. Kvng Pearce and SAFETY CLOTHING AND EQUIPMENT DEVELOPER Isaac) at bedside. Physician Lacy Rodriguez Problem Qualifiers (1) COPD (chronic obstructive pulmonary disease): Qualified Codes: J44.9 - Chronic obstructive pulmonary disease, unspecified (2) Leukocytosis: Qualified Codes: D72.829 - Elevated white blood cell count, unspecified Lacy Rodriguez MD Dec 04, 2017 18:52
[2017-12-04] MEDS: ATORVASTATIN 80 MG TAB PO SCH (20:35)
[2017-12-05] VITALS (18 sets, daily range): BP systolic 90–152; BP diastolic 53–70; PULSE 64–91; RESP 12–49; TEMP 97.8–98.8; O2SAT 81–100
[2017-12-05] MEDS: METOPROLOL TARTRATE 50 MG TAB PO SCH ×3 (00:28→19:50)
[2017-12-05 03:49] LABS: CREATININE 3.49 MG/DL (0.60-1.30)
[2017-12-05] MEDS: INSULIN ASPART SUPPLEMENTAL SCALE SQ SCH ×7 (03:55→23:54)
[2017-12-05] MEDS: CHLORHEXIDINE GLUCONATE 2 % 1 PACK (2 CLOTHS) TOP SCH (04:00)
[2017-12-05 04:02] LABS: BASOPHIL % 0.1 % (0.0-2.0); HEMATOCRIT 30.4 % (39.0-51.0); HEMOGLOBIN 9.7 GM/DL (13.0-17.0); LYMPH % 2.6 % (9.0-44.0); LYMPHOCYTE # 0.5 TH/MM3 (1.0-4.8); MEAN CELL VOLUME 82.5 FL (80.0-100.0); MEAN CORPUSCULAR HEMOGLOBIN 26.4 PG (27.0-34.0); MEAN PLATELET VOLUME 10.6 FL (7.0-11.0); MONO % 3.5 % (0.0-8.0); MONOCYTE # 0.8 TH/MM3 (0-0.9); NEUT % 93.8 % (16.0-70.0); PLATELET COUNT 164 TH/MM3 (150-450); RED BLOOD COUNT 3.68 MIL/MM3 (4.50-5.90); RED CELL DISTRIBUTION WIDTH 19.7 % (11.6-17.2); WHITE BLOOD COUNT 21.4 TH/MM3 (4.0-11.0)
[2017-12-05 04:05] LABS: TOTAL PROTEIN 5.2 GM/DL (6.4-8.2)
[2017-12-05] MEDS: MEROPENEM INJ 500 MG in SODIUM CHLORIDE 0.9% INJ 100 ML IV SCH ×2 (04:11→18:33)
--- NOTE | 2017-12-05 04:43 | RADRPT ---
EXAM DATE/TIME: 12/05/2017 03:57 [facility] COMPARISON: CHEST SINGLE AP, December 04, 2017, 5:13. INDICATIONS : Shortness of breath, possible pulmonary disease. MEDICAL HISTORY : Congestive heart failure. Hypertension Chronic obstructive pulmonary disease. A-fib MRSA GERD BPH Diabetes SURGICAL HISTORY : Cardiac ablation ENCOUNTER: Subsequent ACUITY: 3 weeks PAIN SCORE: Non-responsive. LOCATION: Bilateral chest FINDINGS: Single AP view of the chest. Endotracheal tube, right IJ central venous catheter, and left IJ central venous catheter remain in place. Right-sided chest tube remains in place. Right-sided subcutaneous e mphysema again seen. Right-sided pneumothorax unchanged. Patchy mild left lung base opacity and small left pleural effusion unchanged. CONCLUSION: No significant interval change. Right-sided chest tube remains in place. Small right pneumothorax. Prosper Klein MD on December 05, 2017 at 4:41 Board Certified Radiologist. This report was verified electronically.
[2017-12-05] MEDS: BUDESONIDE-FORMOTEROL 160/4.5 MCG INHALER INH SCH ×2 (08:30→21:00)
--- NOTE | 2017-12-05 08:51 | HHI.CCPN ---
Subjective Remarks/Hospital Course This is a 77-year-old male with a medical history significant for COPD, CHF, A. fib, diabetes, that presented to emergency department from [facility] for evaluation of worsening shortness of breath over the last 3 days. The patient was been given Solu-Medrol 125 mg and 2 albuterol treatments enroute to ED. Upon presentation to the ED the patient was on a nonrebreather. He was tachypneic and tachycardic. Patient's medical history significant for MRSA pneumonia previously admitted on 10/27/16 for approximately 12 days at [facility]. The patient is normally on 2.5 L/m nasal cannula O2 home dependency, and he lives with ( normally) a PCO2 in the 80s according to his . Patient was then discharged to [facility], and then transferred to [facility] for rehabilitation. He has been on an unknown antibiotic per the family and steroids for the last 3 days. Laboratory and imaging studies were performed with noted elevation in CO2 The patient was given empiric antibiotics in the ED and placed on BiPAP. Critical care medicine was consulted. Subjective: 11/15: Patient maintained on BiPAP throughout the night O2 saturations 97-98% on FiO2 of 0.40. Hemodynamically stable. Attempts made to wean patient to nasal cannula this a.m. unsuccessful, patient's O2 saturation in the 70s, patient placed back on BiPAP. Chest x-ray pending WBC count significantly diminished, leukocytosis resolved. Patient extremely anxious, Precedex infusion initiated. 11/16: Late entry note. Patient seen 10 AM. Overnight the patient converted to A. fib RVR, despite being on Cardizem 4 times a day and metoprolol twice a day- home medications, the patient received IV Cardizem followed by amiodarone infusion. Per report the patient became hypotensive, Cardizem discontinued. Amiodarone continued. Early this a.m. patient was resting comfortably A. fib rate controlled rate. The patient suddenly converted to A. fib RVR heart rate 150s-160s, acute hypoxemic respiratory failure, requiring intubation. The patient was intubated uneventfully and continues on amiodarone at 0.5 mg/hour, rate now controlled in conjunction with sedation. Cardiology consulted, his director of payroll is Dr. Reyes X-ray revealed lung consolidation improved, chest x- ray clear. Plan for CPAP trials in a.m.. 11/17: No acute events overnight. Patient had 1 short 8 beat run of V. tach last evening was self resolution, electrolytes within normal limits. The patient continues on amiodarone 0.5 mg/hr. CPAP trials initiated this a.m.. Tube feeds initiated at trickle feeds. Patient converted to sinus rhythm at 2 AM. 11/18 Patient remains sedated and intubated. Afebrile. 11/19 Patient was extubated yesterday however last night he was noted to choke on water provided by the family. Stat ABG demonstrated acute hypercapnic respiratory failure and was emergently intubated. Currently sedated and intubated. 11/20 Patient remains intubated on Fentanyl drip however he si awake and alert. Afebrile. 11/21 Patient is awake and alert placed on CPAP with PS:15, PEEP:5. Afebrile. 11/22 Patient remains intubated , did not tolerate CPAP trials yesterday as he became tachycardic and hypertensive. On no sedation awake and alert. 11/23 No events overnight, off sedation. 11/24: Resting comfortably on mechanical ventilation currently. Daily C Pap trials ongoing. 11/25: Sedated with Precedex, orally intubated on mechanical ventilation. Daily C Pap trials 11/26: Sedated with Precedex, orally intubated on mechanical ventilation. Got tachypneic with CPAP trial today hence placed back on PRVC. Spiked a fever, garcia cultures ordered. Went into A. fib with RVR subsequently for which being initiated on amiodarone bolus followed by drip and Lopressor 5 mg IV every 6 as needed for 11/27: This morning patient developed bradycardia followed by asystole for which she had 3 minutes CPR with ACLS protocol with return of spontaneous circulation. Post code chest x-ray revealed moderate to large right pneumothorax for which a right pigtail catheter was placed by me however despite airleak patient continue have moderate to large pneumothorax hence a second right sided 28 [place] chest tube was placed to -40 cm water pressure. Air leaks 1+ in both pigtail catheter and chest tube. Patient remains in a flutter currently. Dr. reyes evaluated patient as well following cardiac arrest. 11/28: Sedated, arousable, orally intubated on mechanical ventilation. Worsening renal function noted. MDR Pseudomonas in sputum. Right sided chest tube/ pigtail catheter with 1+ air leak in both. Subcutaneous emphysema noted over right side of face neck and right upper extremity. On 50% FiO2, PEEP +5. Poor urine output for which 500 cc and is bolus given earlier. Treated for hyperkalemia with Kayexalate PO, glucose insulin, calcium IV. 4/2: Remains sedated, arousable, orally intubated on mechanical ventilation. A. fib with RVR this morning for which she was loaded with amiodarone and initiated on amiodarone drip. Spiking fever 103.5. ID adjusting antibiotics. Stool for C. difficile ordered as he had some diarrhea today though received Kayexalate yesterday for hyperkalemia. Pigtail catheter on the right side appeared to be dislodged hence this was removed. 28 Latvian chest tube in right pleural cavity repositioned. 11/30: Late entry note , patient seen at 12 noon. Creatinine continues to trend upward.Sedated but easily arousable. 12/01: Patient lightly sedated, following commands this a.m.. Creatinine noted increased, possible dialysis consideration for tomorrow. Patient to be diuresed today. CPAP trial initiated failed after 5 minutes, repeat this afternoon. 12/02: Patient placed on Lasix infusion throughout the night . No renal improvement,creatinine worsened today , plan for Vas-Cath placement and IHD today. This extensive discussion with patient and plans for tracheostomy and PEG tube placement secondary to failure to wean. 12/03: Late entry note, patient seen at 11 am. Patient scheduled for PEG placement today by Dr. Iglesias. Patient continues to fail CPAP trials. Plan for tracheostomy in the near future 12/04: Late entry note . Patient seen earlier this am. Overnight the patient became hypoglycemic, secondary to n.p.o. status, post PEG placement. D10 was initiated at 30 cc/hr. Tube feeds reinitiated Jevity 1.5, 24 hours post PEG tube placed, D10 discontinued. Patient remains on fentanyl at 100 mics/hour, lightly sedated. Patient denies pain answering by nodding head to yes and no questions. Tracheostomy planned for Wednesday12/06/[address] Calderon. 12/05: Remains intubated sedated with 50 mcg of fentanyl. On attempted CPAP trial patient remained dyspneic. Significant neuromuscular weakness persist. Chest x-ray shows small right apical pneumothorax. Tentatively plan for tracheostomy tomorrow. Dr. Calderon has already been consulted Objective Vital Signs Date Time Temp Pulse Resp B/P (MAP) Pulse Ox O2 Delivery O2 Flow Rate FiO2 12/05/17 08:31 94 35 12/05/17 06:00 72 12/05/17 04:00 98.0 24 115/70 (85) Intake and Output 12/05/17 12/05/17 12/06/17 08:00 16:00 00:00 Intake Total 852 ml Output Total 5 ml Balance 847 ml Result Diagram: 12/05/17 0300 12/05/17 0300 Other Results Laboratory Tests Test 12/04/17 19:23 Blood Gas Puncture Site LT RADIAL Blood Gas Patient Temperature 98.6 Blood Gas HCO3 23 mmol/L (22-26) Blood Gas Base Excess -0.7 mmol/L (-2-2) Blood Gas Oxygen Saturation 96 % (90-100) Arterial Blood pH 7.43 (7.380-7.420) Arterial Blood Partial Pressure CO2 36 mmHg (38-42) Arterial Blood Partial Pressure O2 135 mmHg (61-120) Arterial Blood Oxygen Content 13.9 Vol % (12.0-20.0) Arterial Blood Carboxyhemoglobin 0.9 % (0-4) Arterial Blood Methemoglobin 1.2 % (0-2) Blood Gas Hemoglobin 10.0 G/DL (12.0-16.0) Oxygen Delivery Device VENT Blood Gas Ventilator Setting SEE COMMENTS Blood Gas Inspired Oxygen 35 % Imaging Last Impressions Chest X-Ray 12/04/17 0600 Signed Impressions: Service Date/Time: Monday, December 04, 2017 05:13 - CONCLUSION: No significant neural change in right-sided pneumothorax or left lower lung zone parenchymal opacity. Nasogastric tube no longer seen. Prosper Klein MD Liver Ultrasound 12/02/17 0000 Signed Impressions: Service Date/Time: November 21:57 - CONCLUSION: Nondiagnostic exam due to the presence of air in the abdomen. Tera Gibson MD Catheter Placement X-Ray 12/02/17 0000 Signed Impressions: Service Date/Time: November 10:47 - CONCLUSION: Uncomplicated right internal jugular Vas-Cath placement as above. incidental note is made of subcutaneous emphysema within the chest wall and neck Con Dennison MD Lower Extremity Ultrasound 11/29/17 0000 Signed Impressions: Service Date/Time: Wednesday, November 29, 2017 22:02 - CONCLUSION: Normal examination. Abdiel Mcintyre MD Renal Ultrasound 11/28/17 0000 Signed Impressions: Service Date/Time: Tuesday, November 28, 2017 20:30 - CONCLUSION: Nondiagnostic exam. Rashad Bose MD Last Impressions Chest X-Ray 12/03/17 0600 Signed Impressions: Service Date/Time: Sunday, December 03, 2017 04:44 - CONCLUSION: Right IJ center venous catheter now in place. No other significant interval change. Possible small right apical pneumothorax unchanged. Right-sided chest tube in place. Mild patchy left lung base opacity. Extensive subcutaneous emphysema bilaterally. Prosper Klein MD Liver Ultrasound 12/02/17 0000 Signed Impressions: Service Date/Time: November 21:57 - CONCLUSION: Nondiagnostic exam due to the presence of air in the abdomen. Tera Gibson MD Catheter Placement X-Ray 12/02/17 0000 Signed Impressions: Service Date/Time: November 10:47 - CONCLUSION: Uncomplicated right internal jugular Vas-Cath placement as above. incidental note is made of subcutaneous emphysema within the chest wall and neck Con Dennison MD Lower Extremity Ultrasound 11/29/17 0000 Signed Impressions: Service Date/Time: Wednesday, November 29, 2017 22:02 - CONCLUSION: Normal examination. Abdiel Mcintyre MD Renal Ultrasound 11/28/17 0000 Signed Impressions: Service Date/Time: Tuesday, November 28, 2017 20:30 - CONCLUSION: Nondiagnostic exam. Rashad Bose MD Last 48 hours Impressions Chest X-Ray 11/29/17 0000 Signed Impressions: Service Date/Time: Wednesday, November 29, 2017 09:58 - CONCLUSION: 1. More cephalad , [place] loop thoracostomy tube is now back out of the pleural space and position in the deep tissues of the upper right hemithorax. The lower, surgical thoracostomy tube has backed out slightly with the side port just on the inside of the chest wall in the pleural space. 2. Stable right-sided pneumothorax measuring 1.3 cm in depth. 3. Stable, extensive deep tissue and subcutaneous emphysematous changes. Stable bibasilar airspace disease. 4. Interval placement of a left IJ central venous catheter with tip projecting over the central venous system. No left-sided pneumothorax. 5. Otherwise, endotracheal and nasogastric tubes are grossly stable in position. Omid Traore MD Renal Ultrasound 11/28/17 0000 Signed Impressions: Service Date/Time: Tuesday, November 28, 2017 20:30 - CONCLUSION: Nondiagnostic exam. Rashad Bose MD Chest X-Ray 11/28/17 0000 Signed Impressions: Service Date/Time: Tuesday, November 28, 2017 02:32 - CONCLUSION: 1. 2 right- sided chest tubes with small right pneumothorax. Extensive subcutaneous air. Mild basilar airspace disease. Tera Gibson MD Chest X-Ray 11/27/17 1745 Signed Impressions: Service Date/Time: Monday, November 27, 2017 17:44 - CONCLUSION: Slight decrease in pneumothorax size. Rashad Bose MD Last Impressions Chest X-Ray 11/21/17 0000 Signed Impressions: Service Date/Time: Tuesday, November 21, 2017 10:03 - CONCLUSION: Left basilar streakiness consistent with atelectasis and/or infiltrate. Hossein Torres MD Objective Remarks GENERAL: Patient is 77 yo intubated awake nodding yes and no to questions, awake alert SKIN: Warm and dry. HEAD: Normocephalic. Mild subcutaneous emphysema involving right side of face neck shoulder and arm. EYES: No scleral icterus. No injection or drainage. NECK: Supple, trachea midline. No JVD or lymphadenopathy. CARDIOVASCULAR: S1-S2 irregularly irregular, no gallop or murmur. RESPIRATORY: Orally intubated on mechanical ventilation, air entry decreased bilaterally, scattered rhonchi bilaterally, no wheezing. Right sided chest tube with 1+ airleak. Subcutaneous emphysema or right chest wall, neck, right side of face and right upper extremity. GASTROINTESTINAL: Abdomen soft, non-tender, nondistended. MUSCULOSKELETAL: Bilateral peripheral edema Neuro: Awake, orally intubated, on mechanical ventilation, following commands moves extremities 4. More prominent muscle weakness of the lower extremities noted, only able to wiggle the lower extremity A/P Problem List: (1) A-fib ICD Code: I48.91 - Unspecified atrial fibrillation (2) CHF (congestive heart failure) ICD Code: I50.9 - Heart failure, unspecified Status: Chronic (3) HTN (hypertension) ICD Code: I10 - Essential (primary) hypertension Status: Chronic (4) ADRIAN (obstructive sleep apnea) ICD Code: G47.33 - Obstructive sleep apnea (adult) (pediatric) Status: Chronic (5) MRSA pneumonia ICD Code: J15.212 - Pneumonia due to Methicillin resistant Staphylococcus aureus Status: Acute (6) Diabetes mellitus type 2, insulin dependent ICD Code: E11.9 - Type 2 diabetes mellitus without complications; Z79.4 - watermelon inspector (current) use of insulin Status: Chronic (7) COPD (chronic obstructive pulmonary disease) ICD Code: J44.9 - Chronic obstructive pulmonary disease, unspecified Status: Acute (8) Respiratory distress ICD Code: R06.03 - Acute respiratory distress Status: Acute (9) Leukocytosis ICD Code: D72.829 - Elevated white blood cell count, unspecified Status: Acute (10) Lung consolidation ICD Code: J18.1 - Lobar pneumonia, unspecified organism Status: Acute (11) Anxiety ICD Code: F41.9 - Anxiety disorder, unspecified Status: Chronic (12) Failure to wean from mechanical ventilation ICD Code: Z99.11 - Dependence on respirator [ventilator] status Assessment and Plan Plan by systems: Neurologic: 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 Will discontinue as the patient is not in any pain or distress Neuro checks per ICU protocol Hold gabapentin 300mmg q HS home med 12/01-patient following commands, moving extremities 4 Respiratory: Acute respiratory failure on mechanical ventilation- extubated and reintubated night of 11/18 after he was noted to choke on water provided by family. COPD exacerbation Pneumonia-MRSA, MDR Pseudomonas Right sided pneumothorax following CPR status post pigtail catheter/chest tube placement 11/27 Obstructive sleep apnea Home O2 dependency Continue with vent support keep sats >92% Bronchodilators, methylprednisolone 40 mg IV daily Pulmonology - Dr Price, Right sided chest tube in place with 1+ air leak. Continue 28 F right chest tube to -40 cm water pressure with underwater seal. Right sided pigtail catheter removed as it appeared to be dislodged out of the pleural cavity on chest x-ray on 11/29 12/02 general surgery consult for tracheostomy-plan for tracheostomy 12/06 Dr. Calderon [id number] small apical pneumothorax Patient failing CPAP trials due to apnea and significant neuromuscular weakness Cardiovascular: A. fib RVR Cardiac arrest - asystole, status post CPR 11/27 History of CHF CAD Atorvastatin 80 daily at bedtime, metoprolol 50 mg twice a day, Cardizem 60 mg 4 times a day . Eliquis held from 11/27 in view of anticipated procedures. Patient already had 2 chest tubes placed on 11/27. By mouth beta naomy, Cardizem resumed. Amiodarone 150 mg bolus followed by a drip resumed 11/29 due to A. fib with RVR.. Lopressor 2.5 mg IV every 6 hourly as needed for heart rate greater than 130 Cardiology - Dr. Reyes-discussed with Dr. Reyes following cardiac arrest on 11/27 Echo showed EF 65-70% Amiodarone infusion discontinued 12/02 Renal: DAVID Hyperkalemia Monitor renal function, electrolytes replacement per protocol. Treated for hyperkalemia with Kayexalate, glucose insulin and calcium on 11/28. Nephrology Dr. Ragland. 12/02 Vas-Cath placement plan for initiation of IHD . IHD scheduling per nephrology FEN/GI: Electrolyte derangement GERD 12/04 Resumed tube feeds with Jevity 1.5 goal, 50cc/hr. Pepcid for GI prophylaxis Replete electrolytes per ICU 12/03 PEG tube placement Heme/ID: Pneumonia MRSA, MDR Pseudomonas Leukocytosis ID following- Antibiotics per ID (on by mouth Zyvox, IV Levaquin, fluconazole), started on meropenem on 11/28 for MDR Pseudomonas in sputum, and started on IV micafungin. Stool for C. difficile ordered on 11/29 in view of persistent fever and started on by mouth vancomycin-NEG. Pertinent cultures 11/16 sputum cultures- Kleb pneumonia 11/26 sputum cultures growing multidrug resistant Pseudomonas/MRSA 11/28 urine culture growing yeast 11/26 blood culture neg Endocrine: Glucose monitoring per ICU protocol-low dose regimen -- SSI(high scale) Levemir increased from 14u Q12 to 25 units every 12 hourly Prophylaxis: GI Prophylaxis Famotidine BID DVT Prophylaxis -- SCDs Held home dose Eliquis 5 mg BID on 11/27 in view of anticipated procedures Heparin 5000 units subcutaneously every 8 hourly for DVT prophylaxis on 11/28. Lines: Left IJ central line placed 11/28 11/28-Discussed with patient's son regarding current clinical status and plan of care at bedside and he voiced understanding and was agreeable. Explained possible need for tracheostomy and PEG tube placement. Plan of care with patient's this morning on 11/29 understanding. Prognosis appears poor. Consulted palliative care to assist with deciding goals of therapy 12/02-patient and family requests aggressive measures continue to be instituted. Tracheostomy planned for 12/06 my billing statement This patient remains critically ill with one or more organ systems which are or may become a threat to life. I have spent in excess of 30 minutes discontinuously in the care and management of this patient. This time is exclusive of procedures, and includes, but is not limited to, evaluation of the patient, review of the medical record, discussions with family, consultants, nursing staff, or respiratory therapy, and documentation in the medical record. D/W Dr. Kvng Pearce and CLOTH EXAMINER HAND (Obdulia) at bedside. Problem Qualifiers (1) COPD (chronic obstructive pulmonary disease): Qualified Codes: J44.9 - Chronic obstructive pulmonary disease, unspecified (2) Leukocytosis: Qualified Codes: D72.829 - Elevated white blood cell count, unspecified Darwin Meadows MD Dec 05, 2017 08:51
[2017-12-05] MEDS: HEPARIN SODIUM - SQ 10,000 UNITS/ML VIAL SQ SCH ×2 (09:00→19:51)
[2017-12-05] MEDS: FLUCONAZOLE 200 MG TAB PO SCH (09:15)
[2017-12-05] MEDS: DOCUSATE SODIUM 50 MG/SENNA 8.6 MG TAB PO SCH ×2 (09:15→19:48)
[2017-12-05] MEDS: LINEZOLID 600 MG TAB PO SCH ×2 (09:16→19:48)
[2017-12-05] MEDS: FAMOTIDINE 20 MG TAB PO SCH ×2 (09:17→19:48)
[2017-12-05] MEDS: CHLORHEXIDINE 0.12% (ORAL KIT) 15 ML CUP MT SCH ×2 (09:17→19:50)
[2017-12-05] MEDS: DILTIAZEM HCL 60 MG TAB PO SCH ×4 (09:17→19:50)
[2017-12-05] MEDS: SODIUM CHLORIDE 0.9% FLUSH 10 ML FLUSH IV FLUSH SCH ×2 (09:17→19:49)
[2017-12-05] MEDS: methylPREDNISolone SOD SUCC 40 MG/1 ML VIAL IV PUSH SCH (09:17)
--- NOTE | 2017-12-05 11:04 | HHI.IDPN ---
Note Infectious Disease Note ID Xcover for . Chart reviewed. Patient on the ventilator. He is alert. He looks tachypneic and more abdominal movts and some accessory muscle use noted. CCM aware and made vent changes and will follow. Afebrile. Blood pressure is stable. Undergoes HD. Chest tube in place on the right due to pneumothorax. Blood pressure stable. 77-year-old, white male who presents to the Emergency Department with shortness of breath. The patient has a history of COPD and CHF. He usually uses CPAP at the assisted living facility. He was noted to have been developing coughing and shortness of breath over the past couple of days, and his states that he was coughing a lot yesterday and bringing up mostly phlegm and that he was restless and could not sleep. She states that he was mostly awake over the For 24 hours before being brought to emergency department. Recently treated at [facility] for pneumonia due to methicillin-resistant Staphylococcus aureus. His states that he was still on the oral antibiotic for pneumonia and that he has 2 more days of the medication to complete therapy with Zyvox. PAST MEDICAL HISTORY: COPD, CHF, atrial fibrillation, insulin-dependent diabetes mellitus, hypertension, hyperlipidemia, gastroesophageal reflux, gastroparesis, iron deficiency anemia, oxygen-dependent. PAST SURGICAL HISTORY: Right knee surgery, right carpal tunnel release, cardiac ablation treatment 2002. ALLERGIES: ASPIRIN, CODEINE. MEDICATIONS: Current Medications Medications (Trade) Dose Ordered Sig/Yani Route Start Time Stop Time Status Last Admin (NS Flush) 2 ml UNSCH PRN IV FLUSH 11/14/17 15:45 11/17/17 14:05 (NS Flush) 2 ml BID IV FLUSH 11/14/17 21:00 12/05/17 09:17 (Zofran Inj) 4 mg Q6H PRN IV PUSH 11/14/17 15:45 11/18/17 16:03 Miscellaneous Information 1 Q361D XX 11/14/17 15:45 11/14/17 15:45 (Chlorhexidine 2% Cloth) 3 pack Taper DAILY@04 TOP 11/15/17 04:00 11/11/18 03:59 12/05/17 04:00 (Chlorhexidine 2% Cloth) 3 pack UNSCH PRN TOP 11/14/17 15:45 (Ricarda-Colace) 1 tab BID PO 11/14/17 21:00 12/05/17 09:15 (Milk Of Magnesia Liq) 30 ml Q12H PRN PO 11/14/17 15:45 (Senokot) 17.2 mg Q12H PRN PO 11/14/17 15:45 (Dulcolax Supp) 10 mg DAILY PRN RECTAL 11/14/17 15:45 (Lactulose Liq) 30 ml DAILY PRN PO 11/14/17 15:45 (Eliquis) 5 mg BID PO 11/14/17 21:00 Future Hold 11/27/17 20:17 (Lipitor) 80 mg HS PO 11/14/17 21:00 12/04/17 20:35 (Lanoxin) 0.125 mg DAILY PO 11/15/17 09:00 Future Hold 11/17/17 08:24 (Cardizem) 60 mg QID PO 11/14/17 18:00 12/05/17 09:17 (Lopressor) 50 mg BID PO 11/14/17 21:00 12/05/17 09:17 Patient Own Medication PT OWN MED: Mometas... HS INH 11/14/17 21:00 Future Hold (Apresoline Inj) 20 mg Q4H PRN IV PUSH 11/17/17 12:00 11/22/17 07:38 (SoluMEDROL INJ) 40 mg DAILY IV PUSH 11/19/17 09:00 12/05/17 09:17 (Symbicort 160-4.5 Mcg Inh) 2 puff Q12HR INH 11/18/17 21:00 12/05/17 08:30 (Peridex 0.12% Liq) 15 ml BID@08,20 MT 11/19/17 08:00 12/05/17 09:17 (Duoneb Neb) 1 ampule Q2HR NEB PRN INH 11/18/17 22:30 12/03/17 04:07 (Pepcid) 10 mg BID PO 11/22/17 21:00 12/05/17 09:17 (Levemir Inj) 25 units Q12HR SQ 11/26/17 21:00 Future Hold 12/01/17 20:17 (NovoLOG SUPPLEMENTAL SCALE) 1 Q4HR SQ 11/26/17 16:00 12/05/17 10:23 (D50w (Vial) Inj) 25 ml UNSCH PRN IV 11/26/17 15:30 12/04/17 01:18 (Glucagon Inj) 1 mg UNSCH PRN IM/SQ 11/26/17 15:30 (Zyvox) 600 mg Q12HR PO 11/27/17 09:30 12/05/17 09:16 Fentanyl Citrate 250 ml @ 5 mls/hr TITRATE PRN IV 11/27/17 13:45 12/03/17 08:58 Meropenem 500 mg/ Sodium Chloride 100 ml @ 200 mls/hr Q12H IV 11/28/17 17:00 12/05/17 04:11 (Heparin Inj) 5,000 units Q12HR SQ 11/28/17 21:00 12/04/17 20:36 (Lopressor Inj) 5 mg Q6H PRN IV PUSH 11/29/17 09:15 (Brethine Inj) 1 mg UNSCH PRN SQ 11/30/17 04:15 (Diflucan) 400 mg DAILY PO 12/02/17 09:00 12/05/17 09:15 Sodium Chloride 1,000 ml @ 0 mls/hr Q0M PRN OTHER 12/02/17 09:30 (Heparin Inj) 8,000 units UNSCH PRN IV FLUSH 12/02/17 09:30 Sodium Chloride 1,000 ml @ 200 mls/hr Q5H PRN IV 12/02/17 09:30 Sodium Chloride 1,000 ml @ 0 mls/hr Q0M PRN OTHER 12/02/17 09:30 (Mannitol Inj) 12.5 gm UNSCH PRN IV 12/02/17 09:30 12/02/17 19:05 Albumin Human 100 ml @ 60 mls/hr UNSCH PRN IV 12/02/17 09:30 12/02/17 19:08 (NS Flush) 5 ml UNSCH PRN IV FLUSH 12/02/17 09:30 (Heparin Inj) UNSCH PRN .XX 12/02/17 09:30 12/02/17 19:04 (Gentamicin Inj) 20 mg UNSCH PRN OTHER 12/02/17 09:30 12/02/17 19:05 (Zofran Inj) 4 mg UNSCH PRN IV PUSH 12/02/17 09:30 (Tylenol) 650 mg UNSCH PRN PO 12/02/17 09:30 (Benadryl) 25 mg UNSCH PRN PO 12/02/17 09:30 (Nitrostat Sl) 0.4 mg UNSCH PRN SL 12/02/17 09:30 (Catapres) 0.1 mg UNSCH PRN PO 12/02/17 09:30 (Epogen Inj) 4,000 units UNSCH PRN IV PUSH 12/02/17 09:30 (Gelfoam 12 Mm/7 Mm Top) 1 foam UNSCH PRN TOP 12/02/17 09:30 (NS Flush) UNSCH PRN IV FLUSH 12/02/17 11:15 (Heparin Inj) UNSCH PRN IV FLUSH 12/02/17 11:15 OBJECTIVE: Vital Signs Date Time Temp Pulse Resp B/P (MAP) Pulse Ox O2 Delivery O2 Flow Rate FiO2 12/05/17 08:31 94 35 12/05/17 06:00 72 12/05/17 04:28 100 35 12/05/17 04:00 69 12/05/17 04:00 98.0 69 24 115/70 (85) 97 12/05/17 04:00 35 12/05/17 02:00 70 12/05/17 00:00 97.8 71 24 112/66 (81) 100 12/05/17 00:00 71 12/05/17 00:00 35 12/04/17 23:02 100 35 12/04/17 22:00 72 12/04/17 20:00 98.6 77 24 106/66 (79) 98 12/04/17 20:00 77 12/04/17 20:00 35 12/04/17 18:00 79 12/04/17 16:10 100 35 12/04/17 16:00 35 12/04/17 16:00 98.6 84 24 102/56 (71) 99 12/04/17 16:00 84 12/04/17 14:00 61 12/04/17 12:00 35 12/04/17 12:00 61 12/04/17 12:00 97.6 61 24 113/61 (78) 99 12/04/17 11:33 100 35 Laboratory Tests Test 4/7/18 12:30 12/04/17 16:45 12/04/17 19:23 12/05/17 03:00 White Blood Count 22.3 TH/MM3 21.4 TH/MM3 Red Blood Count 3.68 MIL/MM3 3.68 MIL/MM3 Hemoglobin 9.8 GM/DL 9.7 GM/DL Hematocrit 31.0 % 30.4 % Mean Corpuscular Volume 84.3 FL 82.5 FL Mean Corpuscular Hemoglobin 26.7 PG 26.4 PG Mean Corpuscular Hemoglobin Concent 31.7 % 32.0 % Red Cell Distribution Width 19.9 % 19.7 % Platelet Count 175 TH/MM3 164 TH/MM3 Mean Platelet Volume 10.3 FL 10.6 FL Blood Urea Nitrogen 100 MG/DL 70 MG/DL Creatinine 4.29 MG/DL 3.49 MG/DL Random Glucose 92 MG/DL 132 MG/DL Total Protein 5.5 GM/DL 5.2 GM/DL Calcium Level 7.0 MG/DL 7.0 MG/DL Phosphorus Level 8.7 MG/DL Magnesium Level 2.7 MG/DL Sodium Level 138 MEQ/L 140 MEQ/L Potassium Level 4.8 MEQ/L 4.7 MEQ/L Chloride Level 98 MEQ/L 100 MEQ/L Carbon Dioxide Level 22.2 MEQ/L 26.0 MEQ/L Anion Gap 18 MEQ/L 14 MEQ/L Estimat Glomerular Filtration Rate 13 ML/MIN 17 ML/MIN Protein Corrected Calcium 7.8 MG/DL 8.0 MG/DL Hepatitis A IgM Antibody NONREACTIVE Hepatitis B Surface Antigen NONREACTIVE Hepatitis B Core IgM Antibody NONREACTIVE Hepatitis C IgG Antibody NONREACTIVE Blood Gas Puncture Site LT RADIAL Blood Gas Patient Temperature 98.6 Blood Gas HCO3 23 mmol/L Blood Gas Base Excess -0.7 mmol/L Blood Gas Oxygen Saturation 96 % Arterial Blood pH 7.43 Arterial Blood Partial Pressure CO2 36 mmHg Arterial Blood Partial Pressure O2 135 mmHg Arterial Blood Oxygen Content 13.9 Vol % Arterial Blood Carboxyhemoglobin 0.9 % Arterial Blood Methemoglobin 1.2 % Blood Gas Hemoglobin 10.0 G/DL Oxygen Delivery Device VENT Blood Gas Ventilator Setting SEE COMMENTS Blood Gas Inspired Oxygen 35 % Neutrophils (%) (Auto) 93.8 % Lymphocytes (%) (Auto) 2.6 % Monocytes (%) (Auto) 3.5 % Eosinophils (%) (Auto) 0.0 % Basophils (%) (Auto) 0.1 % Neutrophils # (Auto) 20.0 TH/MM3 Lymphocytes # (Auto) 0.5 TH/MM3 Monocytes # (Auto) 0.8 TH/MM3 Eosinophils # (Auto) 0.0 TH/MM3 Basophils # (Auto) 0.0 TH/MM3 CBC Comment DIFF FINAL Differential Comment IMAGING: Last Impressions Chest X-Ray 12/05/17 0600 Signed Impressions: Service Date/Time: Tuesday, December 05, 2017 03:57 - CONCLUSION: No significant interval change. Right-sided chest tube remains in place. Small right pneumothorax. Prosper Klein MD Liver Ultrasound 12/02/17 Signed Impressions: Service Date/Time: November 21:57 - CONCLUSION: Nondiagnostic exam due to the presence of air in the abdomen. Tera Gibson MD Catheter Placement X-Ray 12/02/17 Signed Impressions: Service Date/Time: November 10:47 - CONCLUSION: Uncomplicated right internal jugular Vas-Cath placement as above. incidental note is made of subcutaneous emphysema within the chest wall and neck Con Dennison MD Lower Extremity Ultrasound 11/29/17 Signed Impressions: Service Date/Time: Wednesday, November 29, 2017 22:02 - CONCLUSION: Normal examination. Abdiel Mcintyre MD Renal Ultrasound 11/28/17 Signed Impressions: Service Date/Time: Tuesday, November 28, 2017 20:30 - CONCLUSION: Nondiagnostic exam. Rashad Bose MD Chest X-Ray 12/03/17 06 Signed Impressions: Service Date/Time: Sunday, December 03, 2017 04:44 - CONCLUSION: Right IJ center venous catheter now in place. No other significant interval change. Possible small right apical pneumothorax unchanged. Right-sided chest tube in place. Mild patchy left lung base opacity. Extensive subcutaneous emphysema bilaterally. Prosper Klein MD Chest X-Ray 12/02/17599 Signed Impressions: Service Date/Time: November 04:07 - CONCLUSION: Slight improvement in aeration Abdiel Mcintyre MD Liver Ultrasound 12/02/17 Signed Impressions: Service Date/Time: November 21:57 - CONCLUSION: Nondiagnostic exam due to the presence of air in the abdomen. Tera Gibson MD Catheter Placement X-Ray 12/02/17 0000 Signed Impressions: Service Date/Time: November 10:47 - CONCLUSION: Uncomplicated right internal jugular Vas-Cath placement as above. incidental note is made of subcutaneous emphysema within the chest wall and neck Con Dennison MD Chest X-Ray 12/01/17 1430 Signed Impressions: Service Date/Time: Friday, December 01, 2017 15:04 - CONCLUSION: Residual 8mm right apical pneumothorax with right chest tube in place. Bilateral pleural effusions. Shaq Eisenberg MD PHYSICAL EXAMINATION: GENERAL: Sedated. Awake. HEENT: No icterus. EOMI. Moist mucosa. NECK: No swelling or adenopathy. LUNGS: Decreased breath sounds and basilar rhonchi. CT noted. HEART: Regular without audible murmurs. ABDOMEN: Bowel sounds present, obese, soft. Non tender. EXTREMITIES: 2+ edema of the lower extremities, bilateral. No clubbing or cyanosis. SKIN: No diffuse rash. NEUROLOGIC: Nonfocal. PSYCHIATRIC: Calm and cooperative. IMPRESSION: 1. Probable sepsis. 2. Pneumonia Pseudomonas MDR/MRSA. 3. Acute respiratory failure. Vent dependent. Extubated previously and appears to have aspirated. 4. Leukocytosis. WBC increased again. 5. Nette glabrata UTI. 6. Right-sided pneumothorax. Subcutaneous emphysema. 7. History of chronic obstructive pulmonary disease and recent chronic obstructive pulmonary disease exacerbation. 8. Renal insufficiency. RECOMMENDATIONS: 1. Continue Zyvox. 2. Continue meropenem. 3. Continue Diflucan. 4. Monitor white blood cell count. 5. Monitor cultures. 6. Monitor clinical status. Discussed with RN. Discussed with at bedside. to resume care in am. Pam Flores MD Dec 05, 2017 11:04
[2017-12-05] MEDS: hydrALAZINE HCL 20 MG/ML VIAL IV PUSH PRN (15:47)
--- NOTE | 2017-12-05 16:46 | HHI.NPPN ---
Subjective Renal Failure: Acute History of Present Illness This is a 77-year-old male with past medical history of ischemic heart disease, atrial fibrillation, congestive heart failure, possibly diastolic dysfunction, diabetes mellitus, chronic obstructive pulmonary disease, was admitted on 11/14 with respiratory distress. Nephrology was called to see the patient because of elevated BUN and creatinine. The patient has creatinine of 1.1 on admission, which increased after 2 or 3 to 1.3-1.5 and for the last 2 days, it has been going up and now it is 2.8. The patient was initially diagnosed with pneumonia and was started on antibiotics and then later on, patient developed respiratory failure and was intubated. He was also found to have asystole on 11/27 for 3 minutes and CPR was done with ACLS protocol, and it was shown that he has large right-sided pneumothorax. The blood pressure has been stable and there are no significant hypotensive episodes documented. Most of the history was taken from he patient' s chart. Additional Remarks Intubated Review of Systems General General Remarks Unable to do ROS as patient is intubated Objective Data Data Vital Signs Date Time Temp Pulse Resp B/P (MAP) Pulse Ox O2 Delivery O2 Flow Rate FiO2 12/05/17 15:38 100 50 12/05/17 14:00 71 12/05/17 12:11 55 12/05/17 12:08 100 50 12/05/17 12:00 35 12/05/17 12:00 79 12/05/17 12:00 98.6 79 34 111/56 (74) 97 12/05/17 10:00 91 12/05/17 08:31 94 35 12/05/17 08:00 35 12/05/17 08:00 73 12/05/17 08:00 98.2 73 49 152/69 (96) 81 12/05/17 06:00 72 12/05/17 04:28 100 35 12/05/17 04:00 69 12/05/17 04:00 98.0 69 24 115/70 (85) 97 12/05/17 04:00 35 12/05/17 02:00 70 12/05/17 00:00 97.8 71 24 112/66 (81) 100 12/05/17 00:00 71 12/05/17 00:00 35 12/04/17 23:02 100 35 12/04/17 22:00 72 12/04/17 20:00 98.6 77 24 106/66 (79) 98 12/04/17 20:00 77 12/04/17 20:00 35 12/04/17 18:00 79 -: 12/05/17 0300 12/05/17 0300 Tubes & Lines: Vas-Cath, [place] Physical Exam General Appearance: No Acute Distress, Obese Eyes Eye Exam: Pupils Equal Pulmonary Resp Exam: Breath Sounds Equal Cardiology CV Exam: Regular Gastrointestinal/Abdomen GI Exam: Soft, Non-Tender, Distended Genitourinary Exam: Flank Non-Tender Integumentary Skin Exam: Clear, Warm Extremeties Extremities Exam: Moderate Edema Neurologic Neuro Exam: Awake Assessment/Plan Assessment Summary: DAVID/Acute Renal Failure Problem List: (1) DAVID (acute kidney injury) ICD Codes: N17.9 - Acute kidney failure, unspecified Plan: Acute kidney injury most likely related to prerenal vs acute tubular necrosis, either from the infection or related to his cardiac status and cardiac arrest. Renal US unable to visualize kidneys or bladder? UOP continues to be minimal Potassium WNL Plan Renal dose antibiotics Continue for follow UOP and BMP Avoid nephrotoxins as possible. Dialysis yesterday and 1 L of ultrafiltration Patient will need hemodialysis likely on Wednesday Dr. Vela to follow (2) Respiratory failure ICD Codes: J96.90 - Respiratory failure, unspecified, unspecified whether with hypoxia or hypercapnia Plan: Intubated weaning per CC Almaz Ragland MD Dec 05, 2017 16:46
[2017-12-05] MEDS: ATORVASTATIN 80 MG TAB PO SCH (19:49)
[2017-12-06] VITALS (19 sets, daily range): BP systolic 88–126; BP diastolic 51–70; PULSE 67–104; RESP 12–37; TEMP 97.5–98.3; O2SAT 93–100
[2017-12-06 03:27] LABS: AUTOMATED NEUTROPHIL # 27.2 TH/MM3 (1.8-7.7); BASOPHIL % 0.1 % (0.0-2.0); HEMATOCRIT 33.2 % (39.0-51.0); HEMOGLOBIN 10.1 GM/DL (13.0-17.0); LYMPH % 2.5 % (9.0-44.0); LYMPHOCYTE # 0.7 TH/MM3 (1.0-4.8); MEAN CELL VOLUME 86.5 FL (80.0-100.0); MEAN CORPUSCULAR HEMOGLOBIN 26.3 PG (27.0-34.0); MEAN CORPUSCULAR HGB CONC 30.4 % (32.0-36.0); MEAN PLATELET VOLUME 9.8 FL (7.0-11.0); MONO % 3.9 % (0.0-8.0); MONOCYTE # 1.1 TH/MM3 (0-0.9); NEUT % 93.5 % (16.0-70.0); PLATELET COUNT 149 TH/MM3 (150-450); RED BLOOD COUNT 3.84 MIL/MM3 (4.50-5.90); RED CELL DISTRIBUTION WIDTH 19.8 % (11.6-17.2); WHITE BLOOD COUNT 29.1 TH/MM3 (4.0-11.0)
[2017-12-06 03:38] LABS: INTERNATIONAL NORMALIZED RATIO 1.2 RATIO; PROTHROMBIN TIME - PATIENT 12.3 SEC (9.8-11.6)
[2017-12-06 03:59] LABS: ALBUMIN 2.1 GM/DL (3.4-5.0); BICARBONATE 25.6 MEQ/L (21.0-32.0); CALCIUM 6.1 MG/DL (8.5-10.1); CREATININE 4.14 MG/DL (0.60-1.30); TOTAL BILIRUBIN ADULT 0.8 MG/DL (0.2-1.0); TOTAL PROTEIN 5.1 GM/DL (6.4-8.2)
[2017-12-06] MEDS: INSULIN ASPART SUPPLEMENTAL SCALE SQ SCH ×5 (04:00→20:39)
[2017-12-06] MEDS: CHLORHEXIDINE GLUCONATE 2 % 1 PACK (2 CLOTHS) TOP SCH (04:00)
[2017-12-06] MEDS: MEROPENEM INJ 500 MG in SODIUM CHLORIDE 0.9% INJ 100 ML IV SCH ×2 (04:38→17:29)
--- NOTE | 2017-12-06 05:09 | RADRPT ---
EXAM DATE/TIME: 12/06/2017 03:40 [facility] COMPARISON: CHEST SINGLE AP, December 05, 2017, 3:57. INDICATIONS : Shortness of breath,possible pulmonary disease. MEDICAL HISTORY : Congestive heart failure. Hypertension Chronic obstructive pulmonary disease. A-Fib MRSA GERD BPH Diabetes SURGICAL HISTORY : Cardiac ablation ENCOUNTER: Subsequent ACUITY: 3 weeks PAIN SCORE: Non-responsive. LOCATION: Bilateral chest FINDINGS: A single view of the chest demonstrates left basilar density. Right-sided chest tube unchanged. No de finite pneumothorax. Right sided subcutaneous emphysema. Endotracheal tube and bilateral jugular line s are stable position. Heart normal size. Osseous structures are intact. CONCLUSION: 1. Stable left basilar density. 2. Right-sided chest tube without pneumothorax Nikunj Oneil MD on December 06, 2017 at 5:06 Board Certified Radiologist. This report was verified electronically.
[2017-12-06] MEDS ORDERED: TERBUTALINE INJ 1 MG/ML AMP SQ PRN (05:15)
[2017-12-06] MEDS ORDERED: SODIUM POLYSTYRENE SULFONATE SUSP 15 GM/60 ML CUP PO ONE (05:15)
[2017-12-06] MEDS ORDERED: INSULIN HUMAN REGULAR 1,000 UNITS/10 ML VIAL IV PUSH ONE (05:15)
[2017-12-06] MEDS: NOREPINEPHRINE INJ 4 MG in SODIUM CHLOR 0.9% 250 ML INJ 246 ML IV PRN ×4 (05:46→23:07)
[2017-12-06] MEDS: CHLORHEXIDINE 0.12% (ORAL KIT) 15 ML CUP MT SCH ×2 (08:00→20:36)
[2017-12-06] MEDS: FAMOTIDINE 20 MG TAB PO SCH ×2 (08:44→20:34)
[2017-12-06] MEDS: METOPROLOL TARTRATE 50 MG TAB PO SCH (08:44)
[2017-12-06] MEDS: DILTIAZEM HCL 60 MG TAB PO SCH (08:44)
[2017-12-06] MEDS: SODIUM CHLORIDE 0.9% FLUSH 10 ML FLUSH IV FLUSH SCH ×2 (08:45→20:35)
[2017-12-06] MEDS: FLUCONAZOLE 200 MG TAB PO SCH (08:45)
[2017-12-06] MEDS: methylPREDNISolone SOD SUCC 40 MG/1 ML VIAL IV PUSH SCH (08:45)
[2017-12-06] MEDS: LINEZOLID 600 MG TAB PO SCH ×2 (08:46→20:34)
[2017-12-06] MEDS: DOCUSATE SODIUM 50 MG/SENNA 8.6 MG TAB PO SCH ×2 (09:00→20:34)
[2017-12-06] MEDS: BUDESONIDE-FORMOTEROL 160/4.5 MCG INHALER INH SCH ×2 (09:00→20:36)
[2017-12-06] MEDS: HEPARIN SODIUM - SQ 10,000 UNITS/ML VIAL SQ SCH ×2 (09:00→20:34)
--- NOTE | 2017-12-06 10:22 | HHI.CCPN ---
Subjective Remarks/Hospital Course This is a 77-year-old male with a medical history significant for COPD, CHF, A. fib, diabetes, that presented to emergency department from [facility] for evaluation of worsening shortness of breath over the last 3 days. The patient was been given Solu-Medrol 125 mg and 2 albuterol treatments enroute to ED. Upon presentation to the ED the patient was on a nonrebreather. He was tachypneic and tachycardic. Patient's medical history significant for MRSA pneumonia previously admitted on 10/27/16 for approximately 12 days at [facility]. The patient is normally on 2.5 L/m nasal cannula O2 home dependency, and he lives with ( normally) a PCO2 in the 80s according to his . Patient was then discharged to [facility], and then transferred to [facility] for rehabilitation. He has been on an unknown antibiotic per the family and steroids for the last 3 days. Laboratory and imaging studies were performed with noted elevation in CO2 The patient was given empiric antibiotics in the ED and placed on BiPAP. Critical care medicine was consulted. Subjective: 11/15: Patient maintained on BiPAP throughout the night O2 saturations 97-98% on FiO2 of 0.40. Hemodynamically stable. Attempts made to wean patient to nasal cannula this a.m. unsuccessful, patient's O2 saturation in the 70s, patient placed back on BiPAP. Chest x-ray pending WBC count significantly diminished, leukocytosis resolved. Patient extremely anxious, Precedex infusion initiated. 11/16: Late entry note. Patient seen 10 AM. Overnight the patient converted to A. fib RVR, despite being on Cardizem 4 times a day and metoprolol twice a day- home medications, the patient received IV Cardizem followed by amiodarone infusion. Per report the patient became hypotensive, Cardizem discontinued. Amiodarone continued. Early this a.m. patient was resting comfortably A. fib rate controlled rate. The patient suddenly converted to A. fib RVR heart rate 150s-160s, acute hypoxemic respiratory failure, requiring intubation. The patient was intubated uneventfully and continues on amiodarone at 0.5 mg/hour, rate now controlled in conjunction with sedation. Cardiology consulted, his drive away driver is Dr. Reyes X-ray revealed lung consolidation improved, chest x- ray clear. Plan for CPAP trials in a.m.. 11/17: No acute events overnight. Patient had 1 short 8 beat run of V. tach last evening was self resolution, electrolytes within normal limits. The patient continues on amiodarone 0.5 mg/hr. CPAP trials initiated this a.m.. Tube feeds initiated at trickle feeds. Patient converted to sinus rhythm at 2 AM. 11/18 Patient remains sedated and intubated. Afebrile. 11/19 Patient was extubated yesterday however last night he was noted to choke on water provided by the family. Stat ABG demonstrated acute hypercapnic respiratory failure and was emergently intubated. Currently sedated and intubated. 11/20 Patient remains intubated on Fentanyl drip however he si awake and alert. Afebrile. 11/21 Patient is awake and alert placed on CPAP with PS:15, PEEP:5. Afebrile. 11/22 Patient remains intubated , did not tolerate CPAP trials yesterday as he became tachycardic and hypertensive. On no sedation awake and alert. 11/23 No events overnight, off sedation. 11/24: Resting comfortably on mechanical ventilation currently. Daily C Pap trials ongoing. 11/25: Sedated with Precedex, orally intubated on mechanical ventilation. Daily C Pap trials 11/26: Sedated with Precedex, orally intubated on mechanical ventilation. Got tachypneic with CPAP trial today hence placed back on PRVC. Spiked a fever, garcia cultures ordered. Went into A. fib with RVR subsequently for which being initiated on amiodarone bolus followed by drip and Lopressor 5 mg IV every 6 as needed for 11/27: This morning patient developed bradycardia followed by asystole for which she had 3 minutes CPR with ACLS protocol with return of spontaneous circulation. Post code chest x-ray revealed moderate to large right pneumothorax for which a right pigtail catheter was placed by me however despite airleak patient continue have moderate to large pneumothorax hence a second right sided 28 Citizen [place] chest tube was placed to -40 cm water pressure. Air leaks 1+ in both pigtail catheter and chest tube. Patient remains in a flutter currently. Dr. reyes evaluated patient as well following cardiac arrest. 11/28: Sedated, arousable, orally intubated on mechanical ventilation. Worsening renal function noted. MDR Pseudomonas in sputum. Right sided chest tube/ pigtail catheter with 1+ air leak in both. Subcutaneous emphysema noted over right side of face neck and right upper extremity. On 50% FiO2, PEEP +5. Poor urine output for which 500 cc and is bolus given earlier. Treated for hyperkalemia with Kayexalate PO, glucose insulin, calcium IV. 4/2: Remains sedated, arousable, orally intubated on mechanical ventilation. A. fib with RVR this morning for which she was loaded with amiodarone and initiated on amiodarone drip. Spiking fever 103.5. ID adjusting antibiotics. Stool for C. difficile ordered as he had some diarrhea today though received Kayexalate yesterday for hyperkalemia. Pigtail catheter on the right side appeared to be dislodged hence this was removed. 28 Citizen [place] chest tube in right pleural cavity repositioned. 11/30: Late entry note , patient seen at 12 noon. Creatinine continues to trend upward.Sedated but easily arousable. 12/01: Patient lightly sedated, following commands this a.m.. Creatinine noted increased, possible dialysis consideration for tomorrow. Patient to be diuresed today. CPAP trial initiated failed after 5 minutes, repeat this afternoon. 12/02: Patient placed on Lasix infusion throughout the night . No renal improvement,creatinine worsened today , plan for Vas-Cath placement and IHD today. This extensive discussion with patient and plans for tracheostomy and PEG tube placement secondary to failure to wean. 12/03: Late entry note, patient seen at 11 am. Patient scheduled for PEG placement today by Dr. Iglesias. Patient continues to fail CPAP trials. Plan for tracheostomy in the near future 12/04: Late entry note . Patient seen earlier this am. Overnight the patient became hypoglycemic, secondary to n.p.o. status, post PEG placement. D10 was initiated at 30 cc/hr. Tube feeds reinitiated Jevity 1.5, 24 hours post PEG tube placed, D10 discontinued. Patient remains on fentanyl at 100 mics/hour, lightly sedated. Patient denies pain answering by nodding head to yes and no questions. Tracheostomy planned for Wednesday12/06/[address] Calderon. 12/05: Remains intubated sedated with 50 mcg of fentanyl. On attempted CPAP trial patient remained dyspneic. Significant neuromuscular weakness persist. Chest x-ray shows small right apical pneumothorax. Tentatively plan for tracheostomy tomorrow. Dr. Calderon has already been consulted 12/06 Patient remains intubated for possible trach today. On Levophed 12 mics. Afebrile. Objective Vital Signs Date Time Temp Pulse Resp B/P (MAP) Pulse Ox O2 Delivery O2 Flow Rate FiO2 12/06/17 09:04 100 35 12/06/17 08:00 67 12/06/17 08:00 97.5 18 88/58 (68) Intake and Output 12/06/17 12/06/17 12/07/17 08:00 16:00 00:00 Intake Total 481 ml Output Total 65 ml Balance 416 ml Result Diagram: 12/06/17 0300 12/06/17 0300 Other Results Laboratory Tests Test 12/06/17 03:00 12/06/17 05:53 White Blood Count 29.1 TH/MM3 Red Blood Count 3.84 MIL/MM3 Hemoglobin 10.1 GM/DL Hematocrit 33.2 % Mean Corpuscular Volume 86.5 FL Mean Corpuscular Hemoglobin 26.3 PG Mean Corpuscular Hemoglobin Concent 30.4 % Red Cell Distribution Width 19.8 % Platelet Count 149 TH/MM3 Mean Platelet Volume 9.8 FL Neutrophils (%) (Auto) 93.5 % Lymphocytes (%) (Auto) 2.5 % Monocytes (%) (Auto) 3.9 % Eosinophils (%) (Auto) 0.0 % Basophils (%) (Auto) 0.1 % Neutrophils # (Auto) 27.2 TH/MM3 Lymphocytes # (Auto) 0.7 TH/MM3 Monocytes # (Auto) 1.1 TH/MM3 Eosinophils # (Auto) 0.0 TH/MM3 Basophils # (Auto) 0.0 TH/MM3 CBC Comment DIFF FINAL Differential Comment Prothrombin Time 12.3 SEC Prothromb Time International Ratio 1.2 RATIO Blood Urea Nitrogen 97 MG/DL Creatinine 4.14 MG/DL Random Glucose 241 MG/DL Total Protein 5.1 GM/DL Albumin 2.1 GM/DL Calcium Level 6.1 MG/DL Alkaline Phosphatase 282 U/L Aspartate Amino Transf (AST/SGOT) 126 U/L Alanine Aminotransferase (ALT/SGPT) 120 U/L Total Bilirubin 0.8 MG/DL Sodium Level 137 MEQ/L Potassium Level 5.7 MEQ/L Chloride Level 97 MEQ/L Carbon Dioxide Level 25.6 MEQ/L Anion Gap 14 MEQ/L Estimat Glomerular Filtration Rate 14 ML/MIN Protein Corrected Calcium 7.0 MG/DL Blood Gas Puncture Site RT RADIAL Blood Gas Patient Temperature 98.6 Blood Gas HCO3 21 mmol/L Blood Gas Base Excess -5.5 mmol/L Blood Gas Oxygen Saturation 92 % Arterial Blood pH 7.20 Arterial Blood Partial Pressure CO2 57 mmHg Arterial Blood Partial Pressure O2 85 mmHg Arterial Blood Oxygen Content 13.5 Vol % Arterial Blood Carboxyhemoglobin 0.7 % Arterial Blood Methemoglobin 1.1 % Blood Gas Hemoglobin 10.3 G/DL Oxygen Delivery Device VENTILATOR Blood Gas Ventilator Setting AC12/550/+5 Blood Gas Inspired Oxygen 35 % Imaging Last Impressions Chest X-Ray 12/06/17 0600 Signed Impressions: Service Date/Time: Wednesday, December 06, 2017 03:40 - CONCLUSION: 1. Stable left basilar density. 2. Right-sided chest tube without pneumothorax Nikunj Oneil MD Liver Ultrasound 12/02/17 0000 Signed Impressions: Service Date/Time: November 21:57 - CONCLUSION: Nondiagnostic exam due to the presence of air in the abdomen. Tera Gibson MD Catheter Placement X-Ray 12/02/17 0000 Signed Impressions: Service Date/Time: November 10:47 - CONCLUSION: Uncomplicated right internal jugular Vas-Cath placement as above. incidental note is made of subcutaneous emphysema within the chest wall and neck Con Dennison MD Lower Extremity Ultrasound 11/29/17 0000 Signed Impressions: Service Date/Time: Wednesday, November 29, 2017 22:02 - CONCLUSION: Normal examination. Abdiel Mcintyre MD Renal Ultrasound 11/28/17 0000 Signed Impressions: Service Date/Time: Tuesday, November 28, 2017 20:30 - CONCLUSION: Nondiagnostic exam. Rashad Bose MD Objective Remarks GENERAL: Patient is 77 yo intubated awake nodding yes and no to questions, awake alert SKIN: Warm and dry. HEAD: Normocephalic. Mild subcutaneous emphysema involving right side of face neck shoulder and arm. EYES: No scleral icterus. No injection or drainage. NECK: Supple, trachea midline. No JVD or lymphadenopathy. CARDIOVASCULAR: S1-S2 irregularly irregular, no gallop or murmur. RESPIRATORY: Orally intubated on mechanical ventilation, air entry decreased bilaterally, scattered rhonchi bilaterally, no wheezing. Right sided chest tube with 1+ airleak. Subcutaneous emphysema or right chest wall, neck, right side of face and right upper extremity. GASTROINTESTINAL: Abdomen soft, non-tender, nondistended. MUSCULOSKELETAL: Bilateral peripheral edema Neuro: Awake, orally intubated, on mechanical ventilation, following commands moves extremities 4. More prominent muscle weakness of the lower extremities noted, only able to wiggle the lower extremity A/P Problem List: (1) A-fib ICD Code: I48.91 - Unspecified atrial fibrillation (2) CHF (congestive heart failure) ICD Code: I50.9 - Heart failure, unspecified Status: Chronic (3) HTN (hypertension) ICD Code: I10 - Essential (primary) hypertension Status: Chronic (4) ADRIAN (obstructive sleep apnea) ICD Code: G47.33 - Obstructive sleep apnea (adult) (pediatric) Status: Chronic (5) MRSA pneumonia ICD Code: J15.212 - Pneumonia due to Methicillin resistant Staphylococcus aureus Status: Acute (6) Diabetes mellitus type 2, insulin dependent ICD Code: E11.9 - Type 2 diabetes mellitus without complications; Z79.4 - longterm (current) use of insulin Status: Chronic (7) COPD (chronic obstructive pulmonary disease) ICD Code: J44.9 - Chronic obstructive pulmonary disease, unspecified Status: Acute (8) Respiratory distress ICD Code: R06.03 - Acute respiratory distress Status: Acute (9) Leukocytosis ICD Code: D72.829 - Elevated white blood cell count, unspecified Status: Acute (10) Lung consolidation ICD Code: J18.1 - Lobar pneumonia, unspecified organism Status: Acute (11) Anxiety ICD Code: F41.9 - Anxiety disorder, unspecified Status: Chronic (12) Failure to wean from mechanical ventilation ICD Code: Z99.11 - Dependence on respirator [ventilator] status Assessment and Plan Plan by systems: Neurologic: Possible Anoxic encephalopathy following cardiac arrest Anxiety disorder Off sedation, monitor neuro status, check EEG, Neuro eval, CT brain when stable Neuro checks per ICU protocol Hold gabapentin 300mmg q HS home med Respiratory: Acute respiratory failure on mechanical ventilation- extubated and reintubated night of 11/18 after he was noted to choke on water provided by family. COPD exacerbation Pneumonia-MRSA, MDR Pseudomonas Right sided pneumothorax following CPR status post pigtail catheter/chest tube placement 11/27 Obstructive sleep apnea Home O2 dependency Continue with vent support keep sats >92% Bronchodilators, change methylprednisolone 40 mg IV daily to HC 50mg IV Q6 Pulmonology - Dr Price, Right sided chest tube in place with 1+ air leak. Continue 28 F right chest tube to -40 cm water pressure with underwater seal. 12/02 general surgery consult for tracheostomy-plan for tracheostomy when stable CXR today, CT in place no PTX Cardiovascular: A. fib RVR Cardiac arrest - asystole, status post CPR 11/27 History of CHF CAD Wean on Levophed keep MAP>65mmHg. Check Lactic acid Hold Atorvastatin 80 daily at bedtime for elevated LFT's Hold metoprolol and Cardizem as patient is on Levophed Cardiology - Dr. Reyes Echo showed EF 65-70% Renal: DAVID Hyperkalemia Monitor renal function, electrolytes replacement as needed Treated for hyperkalemia with Kayexalate, glucose insulin and calcium on 11/28. Nephrology Dr. Ragland. 12/02 Vas-Cath placed for initiation of IHD . IHD per renal FEN/GI: Elevated LFT's GERD Monitor LFT's, check US liver and Ammonia level. 12/04 Resumed tube feeds with Jevity 1.5 goal, 50cc/hr. Pepcid for GI prophylaxis Replete electrolytes per ICU 12/03 PEG tube placement ID: Pneumonia MRSA, MDR Pseudomonas Leukocytosis ID following- Antibiotics per ID (on by mouth Zyvox,Merrem, fluconazole), Will add PO Vanco and Micafungin Stool for C. difficile negative on 11/29 Pertinent cultures 11/16 sputum cultures- Kleb pneumonia 11/26 sputum cultures growing multidrug resistant Pseudomonas/MRSA 11/28 urine culture growing yeast 11/26 blood culture neg Repeat BC x 2 sets, sputum cx and recheck Cidiff PCR in setting of elevated WBC ( 29 today from ) Heme Monitor CBC Endocrine: Glucose monitoring per ICU protocol -- SSI(high scale) Prophylaxis: GI Prophylaxis Famotidine BID DVT Prophylaxis -- SCDs Held home dose Eliquis 5 mg BID on 11/27 in view of anticipated procedures Heparin 5000 units subcutaneously every 8 hourly for DVT prophylaxis started on 11/28. Lines: Left IJ central line placed 11/28 Palliative care is following CCT 30 mins Problem Qualifiers (1) COPD (chronic obstructive pulmonary disease): Qualified Codes: J44.9 - Chronic obstructive pulmonary disease, unspecified (2) Leukocytosis: Qualified Codes: D72.829 - Elevated white blood cell count, unspecified Carmen Richard MD Dec 06, 2017 10:22
--- NOTE | 2017-12-06 10:33 | HHI.NPPN ---
Subjective Renal Failure: Acute History of Present Illness This is a 77-year-old male with past medical history of ischemic heart disease, atrial fibrillation, congestive heart failure, possibly diastolic dysfunction, diabetes mellitus, chronic obstructive pulmonary disease, was admitted on 11/14 with respiratory distress. Nephrology was called to see the patient because of elevated BUN and creatinine. The patient has creatinine of 1.1 on admission, which increased after 2 or 3 to 1.3-1.5 and for the last 2 days, it has been going up and now it is 2.8. The patient was initially diagnosed with pneumonia and was started on antibiotics and then later on, patient developed respiratory failure and was intubated. He was also found to have asystole on 11/27 for 3 minutes and CPR was done with ACLS protocol, and it was shown that he has large right-sided pneumothorax. The blood pressure has been stable and there are no significant hypotensive episodes documented. Most of the history was taken from he patient' s chart. Additional Remarks Intubated on pressor support for blood pressure. Plan for dialysis today. (Adeola Velez) Review of Systems General General Remarks Unable to do ROS as patient is intubated (Adeola Velez) Objective Data Data Vital Signs Date Time Temp Pulse Resp B/P (MAP) Pulse Ox O2 Delivery O2 Flow Rate FiO2 12/06/17 10:00 67 12/06/17 09:04 100 35 12/06/17 08:00 35 12/06/17 08:00 67 12/06/17 08:00 97.5 69 18 88/58 (68) 100 12/06/17 06:45 35 12/06/17 06:28 71 90/51 12/06/17 06:00 71 12/06/17 05:46 71 95/53 12/06/17 04:35 98 35 12/06/17 04:00 35 12/06/17 04:00 69 12/06/17 04:00 98.3 69 37 94/51 (65) 96 12/06/17 02:00 69 12/06/17 01:15 93 35 12/06/17 00:00 97.9 70 12 96/68 (77) 93 12/06/17 00:00 35 12/06/17 00:00 70 12/05/17 22:05 97 35 4/8/18 22:00 67 12/05/17 20:00 98.8 68 12 90/63 (72) 100 12/05/17 20:00 68 12/05/17 20:00 50 12/05/17 19:05 100 50 12/05/17 18:00 64 12/05/17 16:00 98.2 68 32 95/53 (67) 99 12/05/17 16:00 35 12/05/17 16:00 68 12/05/17 15:38 100 50 12/05/17 14:00 71 12/05/17 12:11 55 12/05/17 12:08 100 50 12/05/17 12:00 35 12/05/17 12:00 79 12/05/17 12:00 98.6 79 34 111/56 (74) 97 (Adeola Velez) -: 12/06/17 0300 12/06/17 0300 Tubes & Lines: Vas-Cath, Haynes (Adeola Velez) Physical Exam General Appearance: No Acute Distress, Obese (Adeola Velez) Eyes Eye Exam: Pupils Equal (Adeola Velez) Pulmonary Resp Exam: Breath Sounds Equal Resp Remarks SQ emphysema present Intubated CT right chest wall (Adeola Velez) Cardiology CV Exam: Regular (Adeola Velez) Gastrointestinal/Abdomen GI Exam: Soft, Non-Tender, Distended (Adeola Velez) Genitourinary Exam: Flank Non-Tender (Adeola Velez) Integumentary Skin Exam: Clear, Warm (Adeola Velez) Extremeties Extremities Exam: Moderate Edema (Adeola Velez) Neurologic Neuro Exam: Awake (Adeola Velez) Assessment/Plan Assessment Summary: DAVID/Acute Renal Failure Problem List: (1) DAVID (acute kidney injury) ICD Codes: N17.9 - Acute kidney failure, unspecified Plan: Acute kidney injury most likely related to prerenal vs acute tubular necrosis, either from the infection or related to his cardiac status and cardiac arrest. Renal US unable to visualize kidneys or bladder? UOP continues to be minimal Potassium WNL Plan On levophed for blood pressure support Renal dose antibiotics Continue for follow UOP and BMP Avoid nephrotoxins as possible. Hyperkalemia with Potassium level of 5.7 Kayexalate given HD planned for today (2) Respiratory failure ICD Codes: J96.90 - Respiratory failure, unspecified, unspecified whether with hypoxia or hypercapnia Plan: Intubated weaning per CC (Adeola Velez) Problem List: (1) DAVID (acute kidney injury) ICD Codes: N17.9 - Acute kidney failure, unspecified Plan: Acute kidney injury most likely related to prerenal vs acute tubular necrosis, either from the infection or related to his cardiac status and cardiac arrest. Renal US unable to visualize kidneys or bladder? UOP continues to be minimal Potassium WNL Plan On levophed for blood pressure support Renal dose antibiotics Continue for follow UOP and BMP Avoid nephrotoxins as possible. Hyperkalemia with Potassium level of 5.7 Kayexalate given HD planned for today. Patient seen and examine, agree with above. BP is on lower side, urine out put is low. HD will be in AM. (2) Respiratory failure ICD Codes: J96.90 - Respiratory failure, unspecified, unspecified whether with hypoxia or hypercapnia Plan: Intubated weaning per CC (America Vela MD) Adeola Velez Dec 06, 2017 10:33 America Vela MD Dec 06, 2017 19:09
[2017-12-06] MEDS: HYDROCORTISONE SOD SUCCINATE 100 MG VIAL IV PUSH SCH ×3 (11:51→23:01)
[2017-12-06] MEDS: VANCOMYCIN 500 MG VIAL (FOR ORAL USE ONLY) PO SCH ×4 (11:51→20:33)
[2017-12-06] MEDS: MICAFUNGIN INJ 150 MG in SODIUM CHLORIDE 0.9% INJ 100 ML IV SCH (12:00)
--- NOTE | 2017-12-06 12:20 | RADRPT ---
EXAM DATE/TIME: 12/06/2017 11:19 [facility] COMPARISON: US ABDOMEN - LIVER, December 02, 2017, 21:57. INDICATIONS : Increased lab values. MEDICAL HISTORY : Congestive heart failure. Hypercholesterolemia. Benign prostatic hyperplasia, (BPH) Atrial fibrillati on. COPD. MRSA. Dyspnea. GERD. Hypertension. Diabetes. Anxiety. SURGICAL HISTORY : Knee surgery. Cardiac ablation. ENCOUNTER: Initial ACUITY: 1 day PAIN SCORE: 0/10 LOCATION: Right upper quadrant MEASUREMENTS: LIVER: Non visualized. cm length COMMON DUCT: Non-visualized RIGHT KIDNEY: Non visualized. cm SPLEEN: Non visualized. cm length FINDINGS: Examination is nondiagnostic secondary to gas and multiple tubes. None of the structures are visualiz ed. CONCLUSION: 1. Nondiagnostic right upper quadrant ultrasound examination. Anil Aldana MD on December 06, 2017 at 12:16 Board Certified Radiologist. This report was verified electronically.
[2017-12-06] MEDS: ALBUMIN 25% INJ 100 ML IV PRN (13:00)
[2017-12-06] MEDS: HEPARIN SODIUM - IV 10,000 UNITS/10 ML VIAL PRN (16:00)
[2017-12-06] MEDS: GENTAMICIN SULFATE 20 MG/2 ML VIAL OTHER PRN (16:00)
[2017-12-06] MEDS: RESP: ALBUTEROL 2.5 MG/IPRATROPIUM 0.5 MG NEB (SCH) NEB ×2 (16:23→19:30)
--- NOTE | 2017-12-06 16:56 | HHI.HCPN ---
Reason for visit a. To assist with evaluation and management of symptoms including: Dyspnea, pain, encephalopathy b. To assist medical decision maker(s) with: better understanding of current medical conditions; weighing benefits/burdens of medical treatment options; making medical treatment decisions. Subjective/Interval History Patient seen to follow-up on symptom management and goals of care. Patient seen during dialysis. In spite of maximum dose of Levophed, patient remains hypotensive decreasing the amount of fluid that can be dialyzed. He is awake, eyes open, responds appropriately. Plan for tracheostomy placement today. He has been followed by infectious disease for probable sepsis with Pseudomonas MDR/MRSA pneumonia. Vital signs remained stable blood pressure 110/64, heart rate 74, respiratory rate 20, oxygen saturation 100% on 40% FiO2, afebrile. Labs today show WBC 29.1 , hemoglobin 10.1, hematocrit 33.2, platelets 149, ABG pH 7.20, PCO2 57, P O2 85 , oxygen saturation 92% bicarb 21, base excess -5.5 on 35% FiO2. Chemistry panel shows sodium 137, potassium 5.7, BUN 97, creatinine 4.14, random glucose 241, calcium 6.1, protein corrected 7.0, AST 126, ALT 120, alkaline phosphatase 282, ammonia 21. Lactic acid 3.6. . Family/friend interactions No family at bedside at this time. .. Advance Directives Living Will: Never completed Health Care Surrogate: Never completed Durable Power of Hardware Test Engineer: Never completed Advance Directive Specifics Health Care Surrogate(s): Never completed. is healthcare proxy supported by son who would be the next tier hierarchy of [place] statutes. . Documented care wishes: No living will completed. Significant change in goals: Patient intubated and unable to state his goals. . Objective Vital Signs Date Time Temp Pulse Resp B/P (MAP) Pulse Ox O2 Delivery O2 Flow Rate FiO2 12/06/17 16:41 74 110/64 12/06/17 16:24 100 40 12/06/17 14:00 67 12/06/17 12:50 100 50 12/06/17 12:00 97.7 67 20 126/70 (88) 100 12/06/17 12:00 67 12/06/17 12:00 35 12/06/17 11:56 64 115/60 12/06/17 10:00 67 4/9/18 09:04 100 35 12/06/17 08:00 35 12/06/17 08:00 67 12/06/17 08:00 97.5 69 18 88/58 (68) 100 12/06/17 06:45 35 12/06/17 06:28 71 90/51 12/06/17 06:00 71 12/06/17 05:46 71 95/53 12/06/17 04:35 98 35 12/06/17 04:00 35 12/06/17 04:00 69 12/06/17 04:00 98.3 69 37 94/51 (65) 96 12/06/17 02:00 69 12/06/17 01:15 93 35 12/06/17 00:00 97.9 70 12 96/68 (77) 93 12/06/17 00:00 35 12/06/17 00:00 70 12/05/17 22:05 97 35 12/05/17 22:00 67 12/05/17 20:00 98.8 68 12 90/63 (72) 100 12/05/17 20:00 68 12/05/17 20:00 50 12/05/17 19:05 100 50 12/05/17 18:00 64 Intake & Output 12/06/17 12/06/17 07:00 19:00 Intake Total 481 ml Output Total 65 ml Balance 416 ml IV Total 100 ml Tube Feeding 281 ml Other 100 ml Output Urine Total 5 ml Chest Tube Drainage Total 60 ml # Bowel Movements 1 Physical Exam CONSTITUTIONAL/GENERAL: This is an adequately nourished patient, in no apparent distress. TUBES/LINES/DRAINS: PIV's, ETT, left subclavian central line, right IJ Vas-Cath SKIN: No jaundice, rashes, or lesions. Ecchymoses on upper extremities. Lower extremities with small areas of skin breakdown secondary to edema. HEAD: Atraumatic. Normocephalic. EYES: Pupils equal and round and reactive. No scleral icterus. No injection or drainage. Fundi not examined. Significant eyelid swelling improving. CARDIOVASCULAR: Irregular rhythm, controlled rate, no rub murmur or gallop. No JVD. RESPIRATORY/CHEST: Symmetric, unlabored respirations. Diminished, scattered wheeze. Extensive crepitus. GASTROINTESTINAL: Abdomen soft, nondistended, obese. Bowel sounds present. PEG intact. GENITOURINARY: Without palpable bladder distension. Haynes catheter in place. MUSCULOSKELETAL: Extremities without clubbing or cyanosis. 3+ dependent, weeping edema. NEUROLOGICAL: Intubated, unsedated, mostly following commands. PSYCHIATRIC: Calm, appropriate. . Diagnostic Tests Laboratory Laboratory Tests Test 12/03/17 18:04 12/04/17 12:30 12/04/17 16:45 12/04/17 19:23 Blood Gas Puncture Site RT RADIAL LT RADIAL Blood Gas Patient Temperature 98.6 98.6 Blood Gas HCO3 22 mmol/L (22-26) 23 mmol/L (22-26) Blood Gas Base Excess -2.2 mmol/L (-2-2) -0.7 mmol/L (-2-2) Blood Gas Oxygen Saturation 98 % (90-100) 96 % (90-100) Arterial Blood pH 7.40 (7.380-7.420) 7.43 (7.380-7.420) Arterial Blood Partial Pressure CO2 36 mmHg (38-42) 36 mmHg (38-42) Arterial Blood Partial Pressure O2 471 mmHg (61-120) 135 mmHg (61-120) Arterial Blood Oxygen Content 14.3 Vol % (12.0-20.0) 13.9 Vol % (12.0-20.0) Arterial Blood Carboxyhemoglobin 0.6 % (0-4) 0.9 % (0-4) Arterial Blood Methemoglobin 1.2 % (0-2) 1.2 % (0-2) Blood Gas Hemoglobin 9.4 G/DL (12.0-16.0) 10.0 G/DL (12.0-16.0) Oxygen Delivery Device VENTILATOR VENT Blood Gas Ventilator Setting A/C 550/24/5PEEP SEE COMMENTS Blood Gas Inspired Oxygen 100 % 35 % White Blood Count 22.3 TH/MM3 (4.0-11.0) Red Blood Count 3.68 MIL/MM3 (4.50-5.90) Hemoglobin 9.8 GM/DL (13.0-17.0) Hematocrit 31.0 % (39.0-51.0) Mean Corpuscular Volume 84.3 FL (80.0-100.0) Mean Corpuscular Hemoglobin 26.7 PG (27.0-34.0) Mean Corpuscular Hemoglobin Concent 31.7 % (32.0-36.0) Red Cell Distribution Width 19.9 % (11.6-17.2) Platelet Count 175 TH/MM3 (150-450) Mean Platelet Volume 10.3 FL (7.0-11.0) Blood Urea Nitrogen 100 MG/DL (7-18) Creatinine 4.29 MG/DL (0.60-1.30) Random Glucose 92 MG/DL (74-106) Total Protein 5.5 GM/DL (6.4-8.2) Calcium Level 7.0 MG/DL (8.5-10.1) Phosphorus Level 8.7 MG/DL (2.5-4.9) Magnesium Level 2.7 MG/DL (1.5-2.5) Sodium Level 138 MEQ/L (136-145) Potassium Level 4.8 MEQ/L (3.5-5.1) Chloride Level 98 MEQ/L (98-107) Carbon Dioxide Level 22.2 MEQ/L (21.0-32.0) Anion Gap 18 MEQ/L (5-15) Estimat Glomerular Filtration Rate 13 ML/MIN (>89) Protein Corrected Calcium 7.8 MG/DL (8.5-10.1) Hepatitis A IgM Antibody NONREACTIVE (NONREACTIVE) Hepatitis B Surface Antigen NONREACTIVE (NONREACTIVE) Hepatitis B Core IgM Antibody NONREACTIVE (NONREACTIVE) Hepatitis C IgG Antibody NONREACTIVE (NONREACTIVE) Test 12/05/17 03:00 12/06/17 03:00 12/06/17 05:53 12/06/17 10:40 White Blood Count 21.4 TH/MM3 (4.0-11.0) 29.1 TH/MM3 (4.0-11.0) Red Blood Count 3.68 MIL/MM3 (4.50-5.90) 3.84 MIL/MM3 (4.50-5.90) Hemoglobin 9.7 GM/DL (13.0-17.0) 10.1 GM/DL (13.0-17.0) Hematocrit 30.4 % (39.0-51.0) 33.2 % (39.0-51.0) Mean Corpuscular Volume 82.5 FL (80.0-100.0) 86.5 FL (80.0-100.0) Mean Corpuscular Hemoglobin 26.4 PG (27.0-34.0) 26.3 PG (27.0-34.0) Mean Corpuscular Hemoglobin Concent 32.0 % (32.0-36.0) 30.4 % (32.0-36.0) Red Cell Distribution Width 19.7 % (11.6-17.2) 19.8 % (11.6-17.2) Platelet Count 164 TH/MM3 (150-450) 149 TH/MM3 (150-450) Mean Platelet Volume 10.6 FL (7.0-11.0) 9.8 FL (7.0-11.0) Neutrophils (%) (Auto) 93.8 % (16.0-70.0) 93.5 % (16.0-70.0) Lymphocytes (%) (Auto) 2.6 % (9.0-44.0) 2.5 % (9.0-44.0) Monocytes (%) (Auto) 3.5 % (0.0-8.0) 3.9 % (0.0-8.0) Eosinophils (%) (Auto) 0.0 % (0.0-4.0) 0.0 % (0.0-4.0) Basophils (%) (Auto) 0.1 % (0.0-2.0) 0.1 % (0.0-2.0) Neutrophils # (Auto) 20.0 TH/MM3 (1.8-7.7) 27.2 TH/MM3 (1.8-7.7) Lymphocytes # (Auto) 0.5 TH/MM3 (1.0-4.8) 0.7 TH/MM3 (1.0-4.8) Monocytes # (Auto) 0.8 TH/MM3 (0-0.9) 1.1 TH/MM3 (0-0.9) Eosinophils # (Auto) 0.0 TH/MM3 (0-0.4) 0.0 TH/MM3 (0-0.4) Basophils # (Auto) 0.0 TH/MM3 (0-0.2) 0.0 TH/MM3 (0-0.2) CBC Comment DIFF FINAL DIFF FINAL Differential Comment Blood Urea Nitrogen 70 MG/DL (7-18) 97 MG/DL (7-18) Creatinine 3.49 MG/DL (0.60-1.30) 4.14 MG/DL (0.60-1.30) Random Glucose 132 MG/DL (74-106) 241 MG/DL (74-106) Total Protein 5.2 GM/DL (6.4-8.2) 5.1 GM/DL (6.4-8.2) Calcium Level 7.0 MG/DL (8.5-10.1) 6.1 MG/DL (8.5-10.1) Sodium Level 140 MEQ/L (136-145) 137 MEQ/L (136-145) Potassium Level 4.7 MEQ/L (3.5-5.1) 5.7 MEQ/L (3.5-5.1) Chloride Level 100 MEQ/L (98-107) 97 MEQ/L (98-107) Carbon Dioxide Level 26.0 MEQ/L (21.0-32.0) 25.6 MEQ/L (21.0-32.0) Anion Gap 14 MEQ/L (5-15) 14 MEQ/L (5-15) Estimat Glomerular Filtration Rate 17 ML/MIN (>89) 14 ML/MIN (>89) Protein Corrected Calcium 8.0 MG/DL (8.5-10.1) 7.0 MG/DL (8.5-10.1) Prothrombin Time 12.3 SEC (9.8-11.6) Prothromb Time International Ratio 1.2 RATIO Albumin 2.1 GM/DL (3.4-5.0) Alkaline Phosphatase 282 U/L (45-117) Aspartate Amino Transf (AST/SGOT) 126 U/L (15-37) Alanine Aminotransferase (ALT/SGPT) 120 U/L (12-78) Total Bilirubin 0.8 MG/DL (0.2-1.0) Blood Gas Puncture Site RT RADIAL Blood Gas Patient Temperature 98.6 Blood Gas HCO3 21 mmol/L (22-26) Blood Gas Base Excess -5.5 mmol/L (-2-2) Blood Gas Oxygen Saturation 92 % (90-100) Arterial Blood pH 7.20 (7.380-7.420) Arterial Blood Partial Pressure CO2 57 mmHg (38-42) Arterial Blood Partial Pressure O2 85 mmHg (61-120) Arterial Blood Oxygen Content 13.5 Vol % (12.0-20.0) Arterial Blood Carboxyhemoglobin 0.7 % (0-4) Arterial Blood Methemoglobin 1.1 % (0-2) Blood Gas Hemoglobin 10.3 G/DL (12.0-16.0) Oxygen Delivery Device VENTILATOR Blood Gas Ventilator Setting AC12/550/+5 Blood Gas Inspired Oxygen 35 % Stool C. difficile Toxin (PCR) NEGATIVE (NEGATIVE) Stl C. difficile Toxin Epiderm 027 PRESUMPTIVE NEGATIVE Test 12/06/17 11:00 12/06/17 11:04 Ammonia 21 MCMOL/L (11-32) Lactic Acid Level 3.6 mmol/L (0.4-2.0) Result Diagram: 12/06/17 0300 12/06/17 0300 Microbiology Microbiology Date/Time Source Procedure Growth Status 12/06/17 11:04 Blood Peripheral Aerobic Blood Culture Pending Received 12/06/17 11:04 Blood Peripheral Anaerobic Blood Culture Pending Received 12/06/17 11:00 Blood Peripheral Aerobic Blood Culture Pending Received 12/06/17 11:00 Blood Peripheral Anaerobic Blood Culture Pending Received Imaging Last Impressions Chest X-Ray 12/06/17 0600 Signed Impressions: Service Date/Time: Wednesday, December 06, 2017 03:40 - CONCLUSION: 1. Stable left basilar density. 2. Right-sided chest tube without pneumothorax Nikunj Oneil MD Liver Ultrasound 12/06/17 0000 Signed Impressions: Service Date/Time: Wednesday, December 06, 2017 11:19 - CONCLUSION: 1. Nondiagnostic right upper quadrant ultrasound examination. Anil Aldana MD Catheter Placement X-Ray 12/02/17 0000 Signed Impressions: Service Date/Time: November 10:47 - CONCLUSION: Uncomplicated right internal jugular Vas-Cath placement as above. incidental note is made of subcutaneous emphysema within the chest wall and neck Con Dennison MD Lower Extremity Ultrasound 11/29/17 0000 Signed Impressions: Service Date/Time: Wednesday, November 29, 2017 22:02 - CONCLUSION: Normal examination. Abdiel Mcintyre MD Renal Ultrasound 11/28/17 0000 Signed Impressions: Service Date/Time: Tuesday, November 28, 2017 20:30 - CONCLUSION: Nondiagnostic exam. Rashad Boes MD Procedures 11/16: Endotracheal intubation 11/18: Endotracheal intubation 11/27: Right-sided pigtail catheter placement to the right pleural cavity 11/27: Right chest tube placement 12/02: Vas-Cath placement 12/03: PEG tube placement . Assessment and Plan Disease Oriented Problem List: (1) COPD (chronic obstructive pulmonary disease) (2) Respiratory distress (3) CHF (congestive heart failure) (4) ADRIAN (obstructive sleep apnea) (5) Diabetes mellitus type 2, insulin dependent Symptom Scale: (1) Dyspnea and respiratory abnormalities (2) Pain, generalized Pertinent Non-Medical Issues Psychosocial: He was born in [place] and moved to [place] many years ago. 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 Spiritual: [employer]. Legal: No legal issues noted. Ethical issues impacting care: No ethical issues noted. . Important Contacts : Cony Varela . Prognosis His prognosis is poor. He has significant lung compromise requiring a trilogy ventilator at home with multiple recurrent admissions for pulmonary compromise. He developed cardiac arrest requiring CPR with subsequent pneumothorax of the right lung. His renal indices continue to increase and he is now at risk of requiring dialysis. His transaminases are also rising, possible liver shock. His condition is frail and he is at significant risk for continued complications and decline. Code Status: Full Code Plan PLAN: Legal decision maker: Patient is not capacitated to make his decisions. His Cony is his legal proxy. Goals: Aggressive CODE STATUS: FULL CODE SYMPTOMS: * Dyspnea: Multifactorial to include chronic obstructive pulmonary disease, right pneumothorax, atrial fibrillation, diastolic heart failure, fluid volume excess. He is currently mechanically ventilated will progress to trach planned today. * Pain: No complaint of pain today. Fentanyl drip held due to hypotension. * Encephalopathy: Multifactorial to include recent sedation, renal failure, hypoxia, sepsis. Improving with dialysis. Palliative care will continue to follow the patient during hospital course as condition evolves, to assist patient/decision-maker with understanding of their medical conditions, weighing benefits/burdens of treatment options, for clarification of goals of treatment. Additionally will assist with any symptoms of palliative concern. . Attestation To help prompt me to consider important information that might be impacting today's encounter and assessment, information from prior notes written by myself or my colleagues may have been "brought forward" into today's note. My signature on this note, however, is an attestation that I personally performed the exam, history, and/or decision-making noted today, and, unless otherwise indicated, the interactions with patient, family, and staff as well as the review of records all occurred today. I also attest that the listed assessment and stated plan reflect my best clinical judgment today based on the combination of historical information, prior notes, and today's exam/ interactions. When time spent is documented, it refers only to time spent today by the signer, or if indicated, combined time spent today by collaborating physician/nurse practitioner. . Linda Gilbert Dec 06, 2017 4:56 pm
[2017-12-06] MEDS: EPOETIN ALFA 10,000 UNITS/ML VIAL IV PUSH PRN (16:57)
--- NOTE | 2017-12-06 18:01 | HHI.IDPN ---
Note Infectious Disease Note Notes reviewed. Patient on the ventilator. He is alert. Afebrile. Hemodialysis in progress. On Levophed. Afebrile. Chest tube in place on the right due to pneumothorax. 77-year-old, white male who presents to the Emergency Department with shortness of breath. The patient has a history of COPD and CHF. He usually uses CPAP at the assisted living facility. He was noted to have been developing coughing and shortness of breath over the past couple of days, and his states that he was coughing a lot yesterday and bringing up mostly phlegm and that he was restless and could not sleep. She states that he was mostly awake over the For 24 hours before being brought to emergency department. Recently treated at [facility] for pneumonia due to methicillin-resistant Staphylococcus aureus. His states that he was still on the oral antibiotic for pneumonia and that he has 2 more days of the medication to complete therapy with Zyvox. PAST MEDICAL HISTORY: COPD, CHF, atrial fibrillation, insulin-dependent diabetes mellitus, hypertension, hyperlipidemia, gastroesophageal reflux, gastroparesis, iron deficiency anemia, oxygen-dependent. PAST SURGICAL HISTORY: Right knee surgery, right carpal tunnel release, cardiac ablation treatment 2002. ALLERGIES: ASPIRIN, CODEINE. MEDICATIONS: Current Medications Medications (Trade) Dose Ordered Sig/Yani Route PRN Reason Start Time Stop Time Status Last Admin Dose Admin Sodium Chloride (NS Flush) 2 ml UNSCH PRN IV FLUSH FLUSH AFTER USING IV ACCESS 11/14/17 15:45 11/17/17 14:05 Sodium Chloride (NS Flush) 2 ml BID IV FLUSH 11/14/17 21:00 12/06/17 08:45 Ondansetron HCl (Zofran Inj) 4 mg Q6H PRN IV PUSH NAUSEA OR VOMITING 11/14/17 15:45 11/18/17 16:03 Miscellaneous Information 1 Q361D XX 11/14/17 15:45 11/14/17 15:45 Chlorhexidine Gluconate (Chlorhexidine 2% Cloth) 3 pack Taper DAILY@04 TOP 11/15/17 04:00 11/11/18 03:59 12/06/17 04:00 Chlorhexidine Gluconate (Chlorhexidine 2% Cloth) 3 pack UNSCH PRN TOP HYGIENIC CARE 11/14/17 15:45 Senna/Docusate Sodium (Ricarda-Colace) 1 tab BID PO 11/14/17 21:00 12/05/17 19:48 Magnesium Hydroxide (Milk Of Magnesia Liq) 30 ml Q12H PRN PO Mild constipation 11/14/17 15:45 Sennosides (Senokot) 17.2 mg Q12H PRN PO Moderate constipation 11/14/17 15:45 Bisacodyl (Dulcolax Supp) 10 mg DAILY PRN RECTAL SEVERE CONSITIPATION 11/14/17 15:45 Lactulose (Lactulose Liq) 30 ml DAILY PRN PO SEVERE CONSITIPATION 11/14/17 15:45 Apixaban (Eliquis) 5 mg BID PO 11/14/17 21:00 Future Hold 11/27/17 20:17 Atorvastatin Calcium (Lipitor) 80 mg HS PO 11/14/17 21:00 Future Hold 12/05/17 19:49 Digoxin (Lanoxin) 0.125 mg DAILY PO 11/15/17 09:00 Future Hold 11/17/17 08:24 Diltiazem HCl (Cardizem) 60 mg QID PO 11/14/17 18:00 Future Hold 12/06/17 08:44 Patient Own Medication PT OWN MED: Mometas... HS INH 11/14/17 21:00 Future Hold Hydralazine HCl (Apresoline Inj) 20 mg Q4H PRN IV PUSH SYS BP GREATER THAN 160 MMHG 11/17/17 12:00 11/22/17 07:38 Budesonide/ Formoterol Fumarate (Symbicort 160-4.5 Mcg Inh) 2 puff Q12HR INH 11/18/17 21:00 12/06/17 09:00 Chlorhexidine Gluconate (Peridex 0.12% Liq) 15 ml BID@08,20 MT 11/19/17 08:00 12/06/17 08:00 Albuterol/ Ipratropium (Duoneb Neb) 1 ampule Q2HR NEB PRN INH WHEEZING 11/18/17 22:30 12/03/17 04:07 Famotidine (Pepcid) 10 mg BID PO 11/22/17 21:00 12/06/17 08:44 Insulin Detemir (Levemir Inj) 25 units Q12HR SQ 11/26/17 21:00 Future Hold 12/01/17 20:17 Insulin Aspart (NovoLOG SUPPLEMENTAL SCALE) 1 Q4HR SQ 11/26/17 16:00 12/05/17 18:34 Dextrose (D50w (Vial) Inj) 25 ml UNSCH PRN IV HYPOGLYCEMIA-SEE COMMENTS 11/26/17 15:30 12/04/17 01:18 Glucagon (Glucagon Inj) 1 mg UNSCH PRN IM/SQ HYPOGLYCEMIA-SEE COMMENTS 11/26/17 15:30 Linezolid (Zyvox) 600 mg Q12HR PO 11/27/17 09:30 12/06/17 08:46 Fentanyl Citrate 250 ml @ 5 mls/hr TITRATE PRN IV SEDATION 11/27/17 13:45 12/03/17 08:58 Meropenem 500 mg/ Sodium Chloride 100 ml @ 200 mls/hr Q12H IV 11/28/17 17:00 12/06/17 17:29 Heparin Sodium (Porcine) (Heparin Inj) 5,000 units Q12HR SQ 11/28/17 21:00 12/06/17 09:00 Metoprolol Tartrate (Lopressor Inj) 5 mg Q6H PRN IV PUSH heart rate greater than 135/mi 11/29/17 09:15 Fluconazole (Diflucan) 400 mg DAILY PO 12/02/17 09:00 12/06/17 08:45 Sodium Chloride 1,000 ml @ 0 mls/hr Q0M PRN OTHER For Prime & Rinse Back 12/02/17 09:30 Heparin Sodium (Porcine) (Heparin Inj) 8,000 units UNSCH PRN IV FLUSH WITH DIALYSIS 12/02/17 09:30 Sodium Chloride 1,000 ml @ 200 mls/hr Q5H PRN IV WITH DIALYSIS 12/02/17 09:30 Sodium Chloride 1,000 ml @ 0 mls/hr Q0M PRN OTHER WITH DIALYSIS 12/02/17 09:30 Mannitol (Mannitol Inj) 12.5 gm UNSCH PRN IV WITH DIALYSIS 12/02/17 09:30 12/02/17 19:05 Albumin Human 100 ml @ 60 mls/hr UNSCH PRN IV WITH DIALYSIS 12/02/17 09:30 12/06/17 13:00 Sodium Chloride (NS Flush) 5 ml UNSCH PRN IV FLUSH WITH DIALYSIS 12/02/17 09:30 Heparin Sodium (Porcine) (Heparin Inj) UNSCH PRN .XX WITH DIALYSIS 12/02/17 09:30 12/06/17 16:00 Gentamicin Sulfate (Gentamicin Inj) 20 mg UNSCH PRN OTHER WITH DIALYSIS 12/02/17 09:30 12/06/17 16:00 Ondansetron HCl (Zofran Inj) 4 mg UNSCH PRN IV PUSH WITH DIALYSIS 12/02/17 09:30 Acetaminophen (Tylenol) 650 mg UNSCH PRN PO for headach, pain, temp > 101F 12/02/17 09:30 Diphenhydramine HCl (Benadryl) 25 mg UNSCH PRN PO for hives/itching/anaphylaxis 12/02/17 09:30 Nitroglycerin (Nitrostat Sl) 0.4 mg UNSCH PRN SL CHEST PAIN 12/02/17 09:30 Clonidine (Catapres) 0.1 mg UNSCH PRN PO for BP > 180/100 X 2 readings 12/02/17 09:30 Epoetin Kvng (Epogen Inj) 4,000 units UNSCH PRN IV PUSH WITH DIALYSIS 12/02/17 09:30 12/06/17 16:57 Gelatin (Gelfoam 12 Mm/7 Mm Top) 1 foam UNSCH PRN TOP SEE LABEL COMMENTS 12/02/17 09:30 Sodium Chloride (NS Flush) UNSCH PRN IV FLUSH SEE PROTOCOL 12/02/17 11:15 Heparin Sodium (Porcine) (Heparin Inj) UNSCH PRN IV FLUSH SEE PROTOCOL 12/02/17 11:15 Norepinephrine Bitartrate 4 mg/ Sodium Chloride 250 ml @ 7.5 mls/hr TITRATE PRN IV Blood pressure management 12/06/17 05:15 12/06/17 16:41 Terbutaline Sulfate (Brethine Inj) 1 mg UNSCH PRN SQ For Extravasation 12/06/17 05:15 Hydrocortisone Sodium Succinate (SoluCORTEF INJ) 50 mg Q6H IV PUSH 12/06/17 11:00 12/06/17 17:30 Albuterol/ Ipratropium (Duoneb Neb) 1 ampule Q6HR NEB NEB 12/06/17 10:15 12/06/17 16:23 Micafungin Sodium 150 mg/Sodium Chloride 100 ml @ 100 mls/hr Q24H IV 12/06/17 12:00 Vancomycin HCl (VANCOMYCIN for oral use only) 125 mg QID PO 12/06/17 11:00 12/06/17 17:30 OBJECTIVE: Vital Signs Date Time Temp Pulse Resp B/P (MAP) Pulse Ox O2 Delivery O2 Flow Rate FiO2 12/06/17 16:41 74 110/64 12/06/17 16:24 100 40 12/06/17 16:00 104 12/06/17 16:00 97.7 75 20 116/65 (82) 12/06/17 16:00 50 12/06/17 14:00 67 12/06/17 12:50 100 50 12/06/17 12:00 97.7 67 20 126/70 (88) 100 12/06/17 12:00 67 12/06/17 12:00 35 12/06/17 11:56 64 115/60 12/06/17 10:00 67 12/06/17 09:04 100 35 12/06/17 08:00 35 12/06/17 08:00 67 12/06/17 08:00 97.5 69 18 88/58 (68) 100 12/06/17 06:45 35 12/06/17 06:28 71 90/51 12/06/17 06:00 71 12/06/17 05:46 71 95/53 12/06/17 04:35 98 35 12/06/17 04:00 35 12/06/17 04:00 69 12/06/17 04:00 98.3 69 37 94/51 (65) 96 12/06/17 02:00 69 12/06/17 01:15 93 35 12/06/17 00:00 97.9 70 12 96/68 (77) 93 12/06/17 00:00 35 12/06/17 00:00 70 12/05/17 22:05 97 35 12/05/17 22:00 67 12/05/17 20:00 98.8 68 12 90/63 (72) 100 12/05/17 20:00 68 12/05/17 20:00 50 12/05/17 19:05 100 50 12/05/17 18:00 64 Laboratory Tests Test 12/05/17 03:00 12/06/17 03:00 White Blood Count 21.4 TH/MM3 29.1 TH/MM3 Red Blood Count 3.68 MIL/MM3 3.84 MIL/MM3 Hemoglobin 9.7 GM/DL 10.1 GM/DL Hematocrit 30.4 % 33.2 % Mean Corpuscular Volume 82.5 FL 86.5 FL Mean Corpuscular Hemoglobin 26.4 PG 26.3 PG Mean Corpuscular Hemoglobin Concent 32.0 % 30.4 % Red Cell Distribution Width 19.7 % 19.8 % Platelet Count 164 TH/MM3 149 TH/MM3 Mean Platelet Volume 10.6 FL 9.8 FL Neutrophils (%) (Auto) 93.8 % 93.5 % Lymphocytes (%) (Auto) 2.6 % 2.5 % Monocytes (%) (Auto) 3.5 % 3.9 % Eosinophils (%) (Auto) 0.0 % 0.0 % Basophils (%) (Auto) 0.1 % 0.1 % Neutrophils # (Auto) 20.0 TH/MM3 27.2 TH/MM3 Lymphocytes # (Auto) 0.5 TH/MM3 0.7 TH/MM3 Monocytes # (Auto) 0.8 TH/MM3 1.1 TH/MM3 Eosinophils # (Auto) 0.0 TH/MM3 0.0 TH/MM3 Basophils # (Auto) 0.0 TH/MM3 0.0 TH/MM3 CBC Comment DIFF FINAL DIFF FINAL Differential Comment Laboratory Tests Test 12/05/17 03:00 12/06/17 03:00 12/06/17 11:00 12/06/17 11:04 Blood Urea Nitrogen 70 MG/DL 97 MG/DL Creatinine 3.49 MG/DL 4.14 MG/DL Random Glucose 132 MG/DL 241 MG/DL Total Protein 5.2 GM/DL 5.1 GM/DL Calcium Level 7.0 MG/DL 6.1 MG/DL Sodium Level 140 MEQ/L 137 MEQ/L Potassium Level 4.7 MEQ/L 5.7 MEQ/L Chloride Level 100 MEQ/L 97 MEQ/L Carbon Dioxide Level 26.0 MEQ/L 25.6 MEQ/L Anion Gap 14 MEQ/L 14 MEQ/L Estimat Glomerular Filtration Rate 17 ML/MIN 14 ML/MIN Protein Corrected Calcium 8.0 MG/DL 7.0 MG/DL Albumin 2.1 GM/DL Alkaline Phosphatase 282 U/L Aspartate Amino Transf (AST/SGOT) 126 U/L Alanine Aminotransferase (ALT/SGPT) 120 U/L Total Bilirubin 0.8 MG/DL Ammonia 21 MCMOL/L Lactic Acid Level 3.6 mmol/L Microbiology Date/Time Source Procedure Growth Status 12/06/17 11:04 Blood Peripheral Aerobic Blood Culture Pending Received 12/06/17 11:04 Blood Peripheral Anaerobic Blood Culture Pending Received 12/06/17 11:00 Blood Peripheral Aerobic Blood Culture Pending Received 12/06/17 11:00 Blood Peripheral Anaerobic Blood Culture Pending Received PHYSICAL EXAMINATION: GENERAL: Sedated. Awake. HEENT: No icterus. EOMI. NECK: No swelling or adenopathy. LUNGS: Basilar rhonchi. HEART: Regular without audible murmurs. ABDOMEN: Bowel sounds present, obese, soft. Non tender. EXTREMITIES: 1+ edema of the lower extremities. No clubbing or cyanosis. SKIN: No diffuse rash. NEUROLOGIC: Nonfocal. PSYCHIATRIC: Calm and cooperative. IMPRESSION: 1. Probable sepsis. 2. Pneumonia Pseudomonas MDR/MRSA. 3. Acute respiratory failure. Vent dependent. Extubated previously and appears to have aspirated. 4. Leukocytosis. WBC increased again. 5. Nette glabrata UTI. 6. Right-sided pneumothorax. Subcutaneous emphysema. 7. History of chronic obstructive pulmonary disease and recent chronic obstructive pulmonary disease exacerbation. 8. Renal insufficiency. RECOMMENDATIONS: 1. Continue Zyvox. 2. Continue meropenem. 3. Continue Diflucan. 4. Monitor white blood cell count. 5. Monitor clinical status. 6. Repeat urine culture. Tom Long MD Dec 06, 2017 18:01
[2017-12-07] VITALS (17 sets, daily range): BP systolic 104–114; BP diastolic 52–87; PULSE 72–90; RESP 20–23; TEMP 97.3–98.8; O2SAT 100
[2017-12-07] MEDS: INSULIN ASPART SUPPLEMENTAL SCALE SQ SCH ×6 (00:38→20:00)
[2017-12-07] MEDS: RESP: ALBUTEROL 2.5 MG/IPRATROPIUM 0.5 MG NEB (SCH) NEB ×4 (03:02→21:08)
[2017-12-07] MEDS: CHLORHEXIDINE GLUCONATE 2 % 1 PACK (2 CLOTHS) TOP SCH (04:00)
[2017-12-07] MEDS: HYDROCORTISONE SOD SUCCINATE 100 MG VIAL IV PUSH SCH ×2 (04:19→11:50)
[2017-12-07] MEDS: MEROPENEM INJ 500 MG in SODIUM CHLORIDE 0.9% INJ 100 ML IV SCH ×2 (04:20→17:15)
[2017-12-07 06:09] LABS: AUTOMATED NEUTROPHIL # 24.5 TH/MM3 (1.8-7.7); BASOPHIL # 0.1 TH/MM3 (0-0.2); BASOPHIL % 0.2 % (0.0-2.0); HEMATOCRIT 27.2 % (39.0-51.0); HEMOGLOBIN 8.7 GM/DL (13.0-17.0); LYMPH % 2.7 % (9.0-44.0); LYMPHOCYTE # 0.7 TH/MM3 (1.0-4.8); MEAN CELL VOLUME 83.5 FL (80.0-100.0); MEAN CORPUSCULAR HEMOGLOBIN 26.7 PG (27.0-34.0); MEAN PLATELET VOLUME 9.2 FL (7.0-11.0); MONO % 3.8 % (0.0-8.0); NEUT % 93.3 % (16.0-70.0); PLATELET COUNT 91 TH/MM3 (150-450); RED BLOOD COUNT 3.26 MIL/MM3 (4.50-5.90); RED CELL DISTRIBUTION WIDTH 19.3 % (11.6-17.2); WHITE BLOOD COUNT 26.2 TH/MM3 (4.0-11.0)
[2017-12-07 06:42] LABS: ALBUMIN 2.5 GM/DL (3.4-5.0); BICARBONATE 24.5 MEQ/L (21.0-32.0); CALCIUM 5.9 MG/DL (8.5-10.1); CREATININE 3.68 MG/DL (0.60-1.30); TOTAL PROTEIN 5.1 GM/DL (6.4-8.2)
[2017-12-07 06:53] LABS: CALCIUM-PROTEIN CORRECTED 6.8 MG/DL (8.5-10.1)
[2017-12-07 07:53] LABS: OVALOCYTES 1+ (NORMAL)
[2017-12-07] MEDS: CHLORHEXIDINE 0.12% (ORAL KIT) 15 ML CUP MT SCH ×2 (08:00→20:00)
--- NOTE | 2017-12-07 08:16 | MB ---
cc: Igor Anne MD, PhD DATE: 12/06/2017 REASON FOR CONSULTATION: Encephalopathy. HISTORY OF PRESENT ILLNESS: Mr. Varela is a 77-year-old male with respiratory failure, Klebsiella pneumoniae, acute kidney injury. He has been on a ventilator because of his respiratory failure. The patient has been very lethargic, decreased level of consciousness. Neurology has been consulted due to mental status change. CURRENT MEDICATIONS: Are vancomycin, Solu-Cortef, micafungin, terbutaline inhaler, subcutaneous heparin, mannitol, albumin, gentamicin with dialysis, Diflucan, Epogen, Catapres, Lopressor. PHYSICAL EXAMINATION: VITAL SIGNS: Blood pressure is 116/65, pulse 104, respirations 20, temperature 97.2 degrees. High cortical function: The patient is lethargic. He does open his eyes to command. He follows simple commands. The pupils equal and reactive. Extraocular movements intact. Motor exam, generalized weakness, but no focal deficit. No posturing. Reflexes are symmetric. LABORATORY DATA: The white count is 29,000, hemoglobin 10, hematocrit 33.2%, platelet count 149,000. PT 12.3, INR 1.2, APTT 23.4. Sodium is 137, potassium 5.7, chloride 97, CO2 is 25.6, the BUN is 97, creatinine 4.14, GFR is 14, glucose 241, calcium 6.1, protein corrected, calcium 7, AST 126, ALT 120, alkaline phosphatase 282. IMPRESSION: Probable metabolic encephalopathy from respiratory failure, pneumonia, renal failure. RECOMMENDATIONS: We will proceed with a CT of the brain to rule out any acute process. We will obtain a CT of the brain, also check an EEG. Igor Anne MD, PhD RENATO/MESSI , 07:25 PM , 07:39 PM
--- NOTE | 2017-12-07 08:21 | MG ---
cc: Jim Perkins MD ELECTROENCEPHALOGRAM RECORD NUMBER: [id number]. DESCRIPTION: Significant amount of myogenic type artifact in the frontal channels and background underlying rhythms. They show a combination of delta and theta frequencies 10-40 microvolts. Artifact appeared to clear up around epoch 92, where there is appearance of stage II sleep spindles. Limited driving with photic stimulation. Single lead EKG appeared to show sinus rhythm. INTERPRETATION: Mild to moderate encephalopathy in sleep state. Clinical correlation. MD ARI Grace/MESSI , 08:27 PM , 08:53 PM
[2017-12-07] MEDS: DOCUSATE SODIUM 50 MG/SENNA 8.6 MG TAB PO SCH ×2 (09:00→21:39)
[2017-12-07] MEDS: SODIUM CHLORIDE 0.9% FLUSH 10 ML FLUSH IV FLUSH SCH ×2 (09:00→21:39)
[2017-12-07] MEDS: BUDESONIDE-FORMOTEROL 160/4.5 MCG INHALER INH SCH (09:00)
--- NOTE | 2017-12-07 09:40 | RADRPT ---
EXAM DATE/TIME: 12/07/2017 08:57 [facility] COMPARISON: CHEST SINGLE AP, December 06, 2017, 3:40. INDICATIONS : Shortness of breath. MEDICAL HISTORY : Congestive heart failure. Hypercholesterolemia. Benign prostatic hyperplasia, (BPH), Atrial fibrillat ion. COPD. MRSA. Dyspnea. GERD. Hypertension. Diabetes. Anxiety. SURGICAL HISTORY : Knee surgery. Cardiac ablation. ENCOUNTER: Subsequent ACUITY: 3 weeks PAIN SCORE: Non-responsive. LOCATION: Bilateral chest FINDINGS: Portable AP views of the chest demonstrate a normal-sized cardiac silhouette. Multiple EKG lines over lie the patient. Right IJ line, left IJ line, and ETT remain present. Right chest tube remains presen t and there is a possible small right apical pneumothorax. There is stable mild left basilar airspace opacity with slight blunting of the costophrenic sulcus. There is slight blunting of the right costo phrenic sulcus. Subcutaneous emphysema remains present on the right chest wall and supraclavicular re gion. Bones demonstrate no acute finding. CONCLUSION: 1. Right chest tube remains present and there is a potential small right apical pneumothorax present. Right chest wall subcutaneous emphysema is stable. 2. Stable left basilar opacity with blunting of the left costophrenic sulcus. Abdiel Kwon MD on December 07, 2017 at 9:31 Board Certified Radiologist. This report was verified electronically.
--- NOTE | 2017-12-07 09:43 | HHI.CCPN ---
Subjective Remarks/Hospital Course This is a 77-year-old male with a medical history significant for COPD, CHF, A. fib, diabetes, that presented to emergency department from [facility] for evaluation of worsening shortness of breath over the last 3 days. The patient was been given Solu-Medrol 125 mg and 2 albuterol treatments enroute to ED. Upon presentation to the ED the patient was on a nonrebreather. He was tachypneic and tachycardic. Patient's medical history significant for MRSA pneumonia previously admitted on 10/27/16 for approximately [address] [facility]. The patient is normally on 2.5 L/m nasal cannula O2 home dependency, and he lives with ( normally) a PCO2 in the 80s according to his . Patient was then discharged to [facility], and then transferred to [facility] for rehabilitation. He has been on an unknown antibiotic per the family and steroids for the last 3 days. Laboratory and imaging studies were performed with noted elevation in CO2 The patient was given empiric antibiotics in the ED and placed on BiPAP. Critical care medicine was consulted. Subjective: 11/15: Patient maintained on BiPAP throughout the night O2 saturations 97-98% on FiO2 of 0.40. Hemodynamically stable. Attempts made to wean patient to nasal cannula this a.m. unsuccessful, patient's O2 saturation in the 70s, patient placed back on BiPAP. Chest x-ray pending WBC count significantly diminished, leukocytosis resolved. Patient extremely anxious, Precedex infusion initiated. 11/16: Late entry note. Patient seen 10 AM. Overnight the patient converted to A. fib RVR, despite being on Cardizem 4 times a day and metoprolol twice a day- home medications, the patient received IV Cardizem followed by amiodarone infusion. Per report the patient became hypotensive, Cardizem discontinued. Amiodarone continued. Early this a.m. patient was resting comfortably A. fib rate controlled rate. The patient suddenly converted to A. fib RVR heart rate 150s-160s, acute hypoxemic respiratory failure, requiring intubation. The patient was intubated uneventfully and continues on amiodarone at 0.5 mg/hour, rate now controlled in conjunction with sedation. Cardiology consulted, his community affairs manager is Dr. Reyes X-ray revealed lung consolidation improved, chest x- ray clear. Plan for CPAP trials in a.m.. 11/17: No acute events overnight. Patient had 1 short 8 beat run of V. tach last evening was self resolution, electrolytes within normal limits. The patient continues on amiodarone 0.5 mg/hr. CPAP trials initiated this a.m.. Tube feeds initiated at trickle feeds. Patient converted to sinus rhythm at 2 AM. 11/18 Patient remains sedated and intubated. Afebrile. 11/19 Patient was extubated yesterday however last night he was noted to choke on water provided by the family. Stat ABG demonstrated acute hypercapnic respiratory failure and was emergently intubated. Currently sedated and intubated. 11/20 Patient remains intubated on Fentanyl drip however he si awake and alert. Afebrile. 11/21 Patient is awake and alert placed on CPAP with PS:15, PEEP:5. Afebrile. 11/22 Patient remains intubated , did not tolerate CPAP trials yesterday as he became tachycardic and hypertensive. On no sedation awake and alert. 11/23 No events overnight, off sedation. 11/24: Resting comfortably on mechanical ventilation currently. Daily C Pap trials ongoing. 11/25: Sedated with Precedex, orally intubated on mechanical ventilation. Daily C Pap trials 11/26: Sedated with Precedex, orally intubated on mechanical ventilation. Got tachypneic with CPAP trial today hence placed back on PRVC. Spiked a fever, garcia cultures ordered. Went into A. fib with RVR subsequently for which being initiated on amiodarone bolus followed by drip and Lopressor 5 mg IV every 6 as needed for 11/27: This morning patient developed bradycardia followed by asystole for which she had 3 minutes CPR with ACLS protocol with return of spontaneous circulation. Post code chest x-ray revealed moderate to large right pneumothorax for which a right pigtail catheter was placed by me however despite airleak patient continue have moderate to large pneumothorax hence a second right sided 28 Burkinan chest tube was placed to -40 cm water pressure. Air leaks 1+ in both pigtail catheter and chest tube. Patient remains in a flutter currently. Dr. reyes evaluated patient as well following cardiac arrest. 11/28: Sedated, arousable, orally intubated on mechanical ventilation. Worsening renal function noted. MDR Pseudomonas in sputum. Right sided chest tube/ pigtail catheter with 1+ air leak in both. Subcutaneous emphysema noted over right side of face neck and right upper extremity. On 50% FiO2, PEEP +5. Poor urine output for which 500 cc and is bolus given earlier. Treated for hyperkalemia with Kayexalate PO, glucose insulin, calcium IV. 4/2: Remains sedated, arousable, orally intubated on mechanical ventilation. A. fib with RVR this morning for which she was loaded with amiodarone and initiated on amiodarone drip. Spiking fever 103.5. ID adjusting antibiotics. Stool for C. difficile ordered as he had some diarrhea today though received Kayexalate yesterday for hyperkalemia. Pigtail catheter on the right side appeared to be dislodged hence this was removed. 28 Burkinan chest tube in right pleural cavity repositioned. 11/30: Late entry note , patient seen at 12 noon. Creatinine continues to trend upward.Sedated but easily arousable. 12/01: Patient lightly sedated, following commands this a.m.. Creatinine noted increased, possible dialysis consideration for tomorrow. Patient to be diuresed today. CPAP trial initiated failed after 5 minutes, repeat this afternoon. 12/02: Patient placed on Lasix infusion throughout the night . No renal improvement,creatinine worsened today , plan for Vas-Cath placement and IHD today. This extensive discussion with patient and plans for tracheostomy and PEG tube placement secondary to failure to wean. 12/03: Late entry note, patient seen at 11 am. Patient scheduled for PEG placement today by Dr. Iglesias. Patient continues to fail CPAP trials. Plan for tracheostomy in the near future 12/04: Late entry note . Patient seen earlier this am. Overnight the patient became hypoglycemic, secondary to n.p.o. status, post PEG placement. D10 was initiated at 30 cc/hr. Tube feeds reinitiated Jevity 1.5, 24 hours post PEG tube placed, D10 discontinued. Patient remains on fentanyl at 100 mics/hour, lightly sedated. Patient denies pain answering by nodding head to yes and no questions. Tracheostomy planned for Wednesday12/06/[address] Calderon. 12/05: Remains intubated sedated with 50 mcg of fentanyl. On attempted CPAP trial patient remained dyspneic. Significant neuromuscular weakness persist. Chest x-ray shows small right apical pneumothorax. Tentatively plan for tracheostomy tomorrow. Dr. Calderon has already been consulted 12/06 Patient remains intubated for possible trach today. On Levophed 12 mics. Afebrile. 12/07 No events overnight. Trach was placed on hold yesterday as patient was on Levophed. He is down to 5 mics today. Afebrile. Objective Vital Signs Date Time Temp Pulse Resp B/P (MAP) Pulse Ox O2 Delivery O2 Flow Rate FiO2 12/07/17 07:51 100 40 12/07/17 06:00 80 12/07/17 05:00 102/60 12/07/17 04:00 97.8 20 Intake and Output 12/07/17 12/07/17 12/08/17 08:00 16:00 00:00 Intake Total 796 ml Output Total 50 ml Balance 746 ml Result Diagram: 12/07/17 0430 12/07/17 0430 Other Results Laboratory Tests Test 12/06/17 10:40 12/06/17 11:00 12/06/17 11:04 12/06/17 17:30 Stool C. difficile Toxin (PCR) NEGATIVE Stl C. difficile Toxin Epiderm 027 PRESUMPTIVE NEGATIVE Ammonia 21 MCMOL/L Lactic Acid Level 3.6 mmol/L Blood Gas Puncture Site RT RADIAL Blood Gas Patient Temperature 98.6 Blood Gas HCO3 22 mmol/L Blood Gas Base Excess -2.2 mmol/L Blood Gas Oxygen Saturation 91 % Arterial Blood pH 7.36 Arterial Blood Partial Pressure CO2 41 mmHg Arterial Blood Partial Pressure O2 72 mmHg Arterial Blood Oxygen Content 11.9 Vol % Arterial Blood Carboxyhemoglobin 0.8 % Arterial Blood Methemoglobin 1.2 % Blood Gas Hemoglobin 9.2 G/DL Oxygen Delivery Device VENTILATOR Blood Gas Ventilator Setting 550/20/5PEEP Blood Gas Inspired Oxygen 35 % Test 12/06/17 22:05 12/07/17 04:30 Potassium Level 4.2 MEQ/L 4.1 MEQ/L White Blood Count 26.2 TH/MM3 Red Blood Count 3.26 MIL/MM3 Hemoglobin 8.7 GM/DL Hematocrit 27.2 % Mean Corpuscular Volume 83.5 FL Mean Corpuscular Hemoglobin 26.7 PG Mean Corpuscular Hemoglobin Concent 32.0 % Red Cell Distribution Width 19.3 % Platelet Count 91 TH/MM3 Mean Platelet Volume 9.2 FL Neutrophils (%) (Auto) 93.3 % Lymphocytes (%) (Auto) 2.7 % Monocytes (%) (Auto) 3.8 % Eosinophils (%) (Auto) 0.0 % Basophils (%) (Auto) 0.2 % Neutrophils # (Auto) 24.5 TH/MM3 Lymphocytes # (Auto) 0.7 TH/MM3 Monocytes # (Auto) 1.0 TH/MM3 Eosinophils # (Auto) 0.0 TH/MM3 Basophils # (Auto) 0.1 TH/MM3 CBC Comment AUTO DIFF Differential Comment AUTO DIFF CONFIRMED Platelet Estimate LOW Platelet Morphology Comment NORMAL Ovalocytes 1+ Blood Urea Nitrogen 86 MG/DL Creatinine 3.68 MG/DL Random Glucose 183 MG/DL Total Protein 5.1 GM/DL Albumin 2.5 GM/DL Calcium Level 5.9 MG/DL Alkaline Phosphatase 240 U/L Aspartate Amino Transf (AST/SGOT) 146 U/L Alanine Aminotransferase (ALT/SGPT) 101 U/L Total Bilirubin 1.0 MG/DL Sodium Level 140 MEQ/L Chloride Level 99 MEQ/L Carbon Dioxide Level 24.5 MEQ/L Anion Gap 17 MEQ/L Estimat Glomerular Filtration Rate 16 ML/MIN Protein Corrected Calcium 6.8 MG/DL Imaging Last Impressions Chest X-Ray 12/06/17 0600 Signed Impressions: Service Date/Time: Wednesday, December 06, 2017 03:40 - CONCLUSION: 1. Stable left basilar density. 2. Right-sided chest tube without pneumothorax Nikunj Oneil MD Liver Ultrasound 12/06/17 0000 Signed Impressions: Service Date/Time: Wednesday, December 06, 2017 11:19 - CONCLUSION: 1. Nondiagnostic right upper quadrant ultrasound examination. Anil Aldana MD Catheter Placement X-Ray 12/02/17 0000 Signed Impressions: Service Date/Time: November 10:47 - CONCLUSION: Uncomplicated right internal jugular Vas-Cath placement as above. incidental note is made of subcutaneous emphysema within the chest wall and neck Con Dennison MD Lower Extremity Ultrasound 11/29/17 0000 Signed Impressions: Service Date/Time: Wednesday, November 29, 2017 22:02 - CONCLUSION: Normal examination. Abdiel Mcintyre MD Renal Ultrasound 11/28/17 0000 Signed Impressions: Service Date/Time: Tuesday, November 28, 2017 20:30 - CONCLUSION: Nondiagnostic exam. Rashad Bose MD Objective Remarks GENERAL: Patient is 77 yo intubated awake nodding yes and no to questions, awake alert SKIN: Warm and dry. HEAD: Normocephalic. Mild subcutaneous emphysema involving right side of face neck shoulder and arm. EYES: No scleral icterus. No injection or drainage. NECK: Supple, trachea midline. No JVD or lymphadenopathy. CARDIOVASCULAR: S1-S2 irregularly irregular, no gallop or murmur. RESPIRATORY: Orally intubated on mechanical ventilation, air entry decreased bilaterally, scattered rhonchi bilaterally, no wheezing. Right sided chest tube with 1+ airleak. Subcutaneous emphysema or right chest wall, neck, right side of face and right upper extremity. GASTROINTESTINAL: Abdomen soft, non-tender, nondistended. MUSCULOSKELETAL: Bilateral peripheral edema Neuro: Awake, orally intubated, on mechanical ventilation, following commands moves extremities 4. More prominent muscle weakness of the lower extremities noted, only able to wiggle the lower extremity A/P Problem List: (1) A-fib ICD Code: I48.91 - Unspecified atrial fibrillation (2) CHF (congestive heart failure) ICD Code: I50.9 - Heart failure, unspecified Status: Chronic (3) HTN (hypertension) ICD Code: I10 - Essential (primary) hypertension Status: Chronic (4) ADRIAN (obstructive sleep apnea) ICD Code: G47.33 - Obstructive sleep apnea (adult) (pediatric) Status: Chronic (5) MRSA pneumonia ICD Code: J15.212 - Pneumonia due to Methicillin resistant Staphylococcus aureus Status: Acute (6) Diabetes mellitus type 2, insulin dependent ICD Code: E11.9 - Type 2 diabetes mellitus without complications; Z79.4 - oil heaterman (current) use of insulin Status: Chronic (7) COPD (chronic obstructive pulmonary disease) ICD Code: J44.9 - Chronic obstructive pulmonary disease, unspecified Status: Acute (8) Respiratory distress ICD Code: R06.03 - Acute respiratory distress Status: Acute (9) Leukocytosis ICD Code: D72.829 - Elevated white blood cell count, unspecified Status: Acute (10) Lung consolidation ICD Code: J18.1 - Lobar pneumonia, unspecified organism Status: Acute (11) Anxiety ICD Code: F41.9 - Anxiety disorder, unspecified Status: Chronic (12) Failure to wean from mechanical ventilation ICD Code: Z99.11 - Dependence on respirator [ventilator] status Assessment and Plan Plan by systems: Neurologic: Possible Anoxic encephalopathy following cardiac arrest Anxiety disorder Off sedation, monitor neuro status, Neuro checks per ICU protocol EEG: Mild- mod encephalopathy. Neuro is following- Dr. Anne. For CT brain today Hold gabapentin 300mmg q HS home med Respiratory: Acute respiratory failure on mechanical ventilation- extubated and reintubated night of 11/18 after he was noted to choke on water provided by family. COPD exacerbation Pneumonia-MRSA, MDR Pseudomonas Right sided pneumothorax following CPR status post pigtail catheter/chest tube placement 11/27 Obstructive sleep apnea Home O2 dependency Continue with vent support keep sats >92% Bronchodilators, decrease HC 50mg IV Q12 Pulmonology - Dr Price, Right sided chest tube in place. Continue 28 F right chest tube to -40 cm water pressure with underwater seal. 12/02 general surgery consult for tracheostomy-plan for tracheostomy when stable CXR 12/[address] no PTX Check CXR today Cardiovascular: A. fib RVR Cardiac arrest - asystole, status post CPR 11/27 History of CHF CAD Wean on Levophed keep MAP>65mmHg. Check Lactic acid Hold Atorvastatin 80 daily at bedtime for elevated LFT's Cardiology - Dr. Reyes Echo showed EF 65-70% Renal: DAVID Monitor renal function, electrolytes replacement as needed Nephrology Dr. Ragland. 12/02 Vas-Cath placed for initiation of IHD . s/p HD 12/06 with 1L removed FEN/GI: Elevated LFT's GERD Monitor LFT's, US liver: non diagnostic study On tube feeds -change to Nepro with goal, 40cc/hr. Pepcid for GI prophylaxis Replete electrolytes per ICU 12/03 PEG tube placement ID: Pneumonia MRSA, MDR Pseudomonas Leukocytosis ID following- Antibiotics per ID (on by mouth Zyvox,Merrem, fluconazole, Micafungin) d/c PO vanco Stool for C. difficile negative on 11/29 and 12/06 Pertinent cultures Follow up on sputum and blood culture from 12/06 11/16 sputum cultures- Kleb pneumonia 11/26 sputum cultures growing multidrug resistant Pseudomonas/MRSA 11/28 urine culture growing yeast 11/26 blood culture neg Heme Monitor CBC Endocrine: Glucose monitoring per ICU protocol -- SSI(high scale) add Levemir 5u Q12 and taper IV steroids Prophylaxis: GI Prophylaxis Famotidine BID DVT Prophylaxis -- SCDs Held home dose Eliquis 5 mg BID on 11/27 in view of anticipated procedures Heparin 5000 units subcutaneously every 8 hourly for DVT prophylaxis started on 11/28. Lines: Left IJ central line placed 11/28 Palliative care is following Level 3 Problem Qualifiers (1) COPD (chronic obstructive pulmonary disease): Qualified Codes: J44.9 - Chronic obstructive pulmonary disease, unspecified (2) Leukocytosis: Qualified Codes: D72.829 - Elevated white blood cell count, unspecified Carmen Richard MD Dec 07, 2017 09:43
[2017-12-07] MEDS: LINEZOLID 600 MG TAB PO SCH ×2 (09:44→21:39)
[2017-12-07] MEDS: HEPARIN SODIUM - SQ 10,000 UNITS/ML VIAL SQ SCH ×2 (09:44→21:39)
[2017-12-07] MEDS: FAMOTIDINE 20 MG TAB PO SCH ×2 (09:44→21:39)
[2017-12-07] MEDS: FLUCONAZOLE 200 MG TAB PO SCH (09:44)
[2017-12-07] MEDS ORDERED: CALCIUM GLUCONATE INJ 1 GM in SODIUM CHLORIDE 0.9% INJ 100 ML IV ONE (10:00)
[2017-12-07] MEDS: INSULIN DETEMIR 100 UNITS/ML VIAL SQ SCH ×2 (12:00→21:38)
[2017-12-07] MEDS: MICAFUNGIN INJ 150 MG in SODIUM CHLORIDE 0.9% INJ 100 ML IV SCH (12:17)
[2017-12-07] MEDS ORDERED: INSULIN DETEMIR 100 UNITS/ML VIAL SQ SCH (12:45)
--- NOTE | 2017-12-07 15:18 | HHI.NPPN ---
Subjective Renal Failure: Acute History of Present Illness This is a 77-year-old male with past medical history of ischemic heart disease, atrial fibrillation, congestive heart failure, possibly diastolic dysfunction, diabetes mellitus, chronic obstructive pulmonary disease, was admitted on 11/14 with respiratory distress. Nephrology was called to see the patient because of elevated BUN and creatinine. The patient has creatinine of 1.1 on admission, which increased after 2 or 3 to 1.3-1.5 and for the last 2 days, it has been going up and now it is 2.8. The patient was initially diagnosed with pneumonia and was started on antibiotics and then later on, patient developed respiratory failure and was intubated. He was also found to have asystole on 11/27 for 3 minutes and CPR was done with ACLS protocol, and it was shown that he has large right-sided pneumothorax. The blood pressure has been stable and there are no significant hypotensive episodes documented. Most of the history was taken from he patient' s chart. Additional Remarks Patient is intubated. Bilateral lower extremity edema present with blisters. Blood pressure has improved and off pressor support. (Adeola Velez) Review of Systems General General Remarks Unable to do ROS as patient is intubated (Adeola Velez) Objective Data Data 12/07/17 12/08/17 19:00 07:00 Intake Total 210 ml Balance 210 ml IV Total 210 ml Vital Signs Date Time Temp Pulse Resp B/P (MAP) Pulse Ox O2 Delivery O2 Flow Rate FiO2 12/07/17 14:00 89 12/07/17 12:00 98.5 90 20 114/87 (96) 100 12/07/17 12:00 90 12/07/17 12:00 40 12/07/17 11:16 100 40 12/07/17 10:00 88 12/07/17 08:30 81 114/64 12/07/17 08:00 79 12/07/17 08:00 40 12/07/17 08:00 98.6 79 23 105/61 (76) 100 12/07/17 07:51 100 40 12/07/17 07:00 81 111/60 12/07/17 06:00 80 12/07/17 05:00 79 102/60 12/07/17 04:31 100 40 12/07/17 04:00 50 4/10/18 04:00 97.8 77 20 110/52 (71) 100 12/07/17 04:00 72 12/07/17 02:00 76 12/07/17 01:04 100 40 12/07/17 00:00 74 12/07/17 00:00 50 12/07/17 00:00 97.3 79 20 104/62 (76) 100 12/06/17 23:07 78 108/60 12/06/17 22:16 100 40 12/06/17 22:00 74 12/06/17 20:00 70 12/06/17 20:00 50 12/06/17 20:00 97.6 70 20 117/67 (84) 100 12/06/17 19:26 100 40 12/06/17 18:00 104 12/06/17 16:41 74 110/64 12/06/17 16:24 100 40 12/06/17 16:00 104 12/06/17 16:00 97.7 75 20 116/65 (82) 12/06/17 16:00 50 (Adeola Velez) -: 12/07/17 0430 12/07/17 0430 Microbiology 12/06/17 Gram Stain - Final, Resulted 12/06/17 Sputum Culture - Preliminary, Resulted Pseudomonas Species Imaging Last Impressions Chest X-Ray 12/07/17 0000 Signed Impressions: Service Date/Time: Thursday, December 07, 2017 08:57 - CONCLUSION: 1. Right chest tube remains present and there is a potential small right apical pneumothorax present. Right chest wall subcutaneous emphysema is stable. 2. Stable left basilar opacity with blunting of the left costophrenic sulcus. Abdiel Kwon MD Liver Ultrasound 12/06/17 0000 Signed Impressions: Service Date/Time: Wednesday, December 06, 2017 11:19 - CONCLUSION: 1. Nondiagnostic right upper quadrant ultrasound examination. Anil Aldana MD Catheter Placement X-Ray 12/02/17 0000 Signed Impressions: Service Date/Time: November 10:47 - CONCLUSION: Uncomplicated right internal jugular Vas-Cath placement as above. incidental note is made of subcutaneous emphysema within the chest wall and neck Con Dennison MD Lower Extremity Ultrasound 11/29/17 0000 Signed Impressions: Service Date/Time: Wednesday, November 29, 2017 22:02 - CONCLUSION: Normal examination. Abdiel Mcintyre MD Renal Ultrasound 11/28/17 0000 Signed Impressions: Service Date/Time: Tuesday, November 28, 2017 20:30 - CONCLUSION: Nondiagnostic exam. Rashad Bose MD Tubes & Lines: Vas-Cath, Haynes (GellermannKellenAdeola M. ARCHITECT MARINE) Physical Exam General Appearance: No Acute Distress, Obese (Gellermann,Adeola M. ARCHITECT MARINE) Eyes Eye Exam: Pupils Equal (Gellermann,Adeola M. ARCHITECT MARINE) Pulmonary Resp Exam: Breath Sounds Equal Resp Remarks SQ emphysema present Intubated CT right chest wall (GellermannAdeola M. ARCHITECT MARINE) Cardiology CV Exam: Regular (Gellermann,Adeola M. ARCHITECT MARINE) Gastrointestinal/Abdomen GI Exam: Soft, Non-Tender, Distended (Gellermann,Adeola M. ARCHITECT MARINE) Genitourinary Exam: Flank Non-Tender (GellermannAdeola M. ARCHITECT MARINE) Integumentary Skin Exam: Clear, Warm (Gellermann,Adeola M. ARCHITECT MARINE) Extremeties Extremities Exam: Moderate Edema (GellermannAdeola M. ARCHITECT MARINE) Neurologic Neuro Exam: Awake (GellermannAdeola M. ARCHITECT MARINE) Assessment/Plan Assessment Summary: DAVID/Acute Renal Failure Problem List: (1) DAVID (acute kidney injury) ICD Codes: N17.9 - Acute kidney failure, unspecified Plan: Acute kidney injury most likely related to prerenal vs acute tubular necrosis, either from the infection or related to his cardiac status and cardiac arrest. Renal US unable to visualize kidneys or bladder? UOP continues to be minimal Potassium WNL Plan Renal dose antibiotics Continue for follow UOP and BMP Avoid nephrotoxins as possible. HD yesterday with UF of 1 liter Hypocalcemia IV replacement given, calcitriol added PO4 is also elevated will add Fosrenol TID HD will be in AM. (2) Respiratory failure ICD Codes: J96.90 - Respiratory failure, unspecified, unspecified whether with hypoxia or hypercapnia Plan: Intubated weaning per CC (GellermannKellenAdeola M. ARCHITECT MARINE) Problem List: (1) DAVID (acute kidney injury) ICD Codes: N17.9 - Acute kidney failure, unspecified Plan: Acute kidney injury most likely related to prerenal vs acute tubular necrosis, either from the infection or related to his cardiac status and cardiac arrest. Renal US unable to visualize kidneys or bladder? UOP continues to be minimal Potassium WNL Plan Renal dose antibiotics Continue for follow UOP and BMP Avoid nephrotoxins as possible. HD yesterday with UF of 1 liter Hypocalcemia IV replacement given, calcitriol added PO4 is also elevated will add Fosrenol TID HD will be in AM. Patient seen and examined, agree with above. Urine out put is low, BP on lower side. HD in AM. (2) Respiratory failure ICD Codes: J96.90 - Respiratory failure, unspecified, unspecified whether with hypoxia or hypercapnia Plan: Intubated weaning per CC (Aemrica Vela MD) Adeola Velez Dec 07, 2017 15:18 America Vela MD Dec 07, 2017 17:47
[2017-12-07] MEDS: LANTHANUM CARBONATE 500 MG CHEWABLE TABLET CHEW SCH (17:15)
--- NOTE | 2017-12-07 21:43 | RADRPT ---
EXAM DATE/TIME: 12/07/2017 21:21 [facility] COMPARISON: CHEST SINGLE AP, December 07, 2017, 8:57. INDICATIONS : ET tube placement. MEDICAL HISTORY : Chronic obstructive pulmonary disease. Congestive heart failure. diabetes. SURGICAL HISTORY : None. ENCOUNTER: Subsequent ACUITY: 1 week PAIN SCORE: 0/10 LOCATION: Bilateral chest FINDINGS: 2 AP portable erect views of the chest were obtained and demonstrate mild patchy opacity at the left lung base. Left costophrenic angle remains blunted. The endotracheal tube remains in place the right jugular central venous line and left internal jugular central venous line remain in place. The right- sided chest tube remains in place with no visualized pneumothorax. Subcutaneous emphysema is again no mady over the right lateral chest wall which is improved. There is left subcutaneous emphysema as well . The heart size is within normal limits. CONCLUSION: 1. Right-sided chest tube in place with no visualized pneumothorax. There is been interval decrease i n subcutaneous emphysema over the right lateral chest wall. 2. Stable blunting of left costophrenic angle with hazy opacity remaining at the left lung base. Liang Jimenez MD on December 07, 2017 at 21:37 Board Certified Radiologist. This report was verified electronically.
--- NOTE | 2017-12-07 22:36 | HHI.PR ---
Review/Management Diagnosis Metabolic encephalopathy Diagnosis/Plan: Subjective Subjective Comments No acute events reported Not stable to go for brain CT Active Medications Current Medications Medications (Trade) Dose Ordered Sig/Yani Route Start Time Stop Time Status Last Admin (NS Flush) 2 ml UNSCH PRN IV FLUSH 11/14/17 15:45 11/17/17 14:05 (NS Flush) 2 ml BID IV FLUSH 11/14/17 21:00 12/07/17 21:39 (Zofran Inj) 4 mg Q6H PRN IV PUSH 11/14/17 15:45 11/18/17 16:03 Miscellaneous Information 1 Q361D XX 11/14/17 15:45 11/14/17 15:45 (Chlorhexidine 2% Cloth) 3 pack Taper DAILY@04 TOP 11/15/17 04:00 11/11/18 03:59 12/07/17 04:00 (Chlorhexidine 2% Cloth) 3 pack UNSCH PRN TOP 11/14/17 15:45 (Ricarda-Colace) 1 tab BID PO 11/14/17 21:00 12/07/17 21:39 (Milk Of Magnesia Liq) 30 ml Q12H PRN PO 11/14/17 15:45 (Senokot) 17.2 mg Q12H PRN PO 11/14/17 15:45 (Dulcolax Supp) 10 mg DAILY PRN RECTAL 11/14/17 15:45 (Lactulose Liq) 30 ml DAILY PRN PO 11/14/17 15:45 (Eliquis) 5 mg BID PO 11/14/17 21:00 Future Hold 11/27/17 20:17 (Lipitor) 80 mg HS PO 11/14/17 21:00 Future Hold 12/05/17 19:49 (Lanoxin) 0.125 mg DAILY PO 11/15/17 09:00 Future Hold 11/17/17 08:24 (Cardizem) 60 mg QID PO 11/14/17 18:00 Future Hold 12/06/17 08:44 Patient Own Medication PT OWN MED: [facility]... HS INH 11/14/17 21:00 Future Hold (Apresoline Inj) 20 mg Q4H PRN IV PUSH 11/17/17 12:00 11/22/17 07:38 (Symbicort 160-4.5 Mcg Inh) 2 puff Q12HR INH 11/18/17 21:00 12/06/17 20:36 (Peridex 0.12% Liq) 15 ml BID@08,20 MT 11/19/17 08:00 12/07/17 08:00 (Duoneb Neb) 1 ampule Q2HR NEB PRN INH 11/18/17 22:30 12/03/17 04:07 (Pepcid) 10 mg BID PO 11/22/17 21:00 12/07/17 21:39 (NovoLOG SUPPLEMENTAL SCALE) 1 Q4HR SQ 11/26/17 16:00 12/07/17 12:00 (D50w (Vial) Inj) 25 ml UNSCH PRN IV 11/26/17 15:30 12/04/17 01:18 (Glucagon Inj) 1 mg UNSCH PRN IM/SQ 11/26/17 15:30 (Zyvox) 600 mg Q12HR PO 11/27/17 09:30 12/07/17 21:39 Fentanyl Citrate 250 ml @ 5 mls/hr TITRATE PRN IV 11/27/17 13:45 12/03/17 08:58 Meropenem 500 mg/ Sodium Chloride 100 ml @ 200 mls/hr Q12H IV 11/28/17 17:00 12/07/17 17:15 (Heparin Inj) 5,000 units Q12HR SQ 11/28/17 21:00 12/07/17 21:39 (Lopressor Inj) 5 mg Q6H PRN IV PUSH 11/29/17 09:15 (Diflucan) 400 mg DAILY PO 12/02/17 09:00 12/07/17 09:44 Sodium Chloride 1,000 ml @ 0 mls/hr Q0M PRN OTHER 12/02/17 09:30 (Heparin Inj) 8,000 units UNSCH PRN IV FLUSH 12/02/17 09:30 Sodium Chloride 1,000 ml @ 200 mls/hr Q5H PRN IV 12/02/17 09:30 Sodium Chloride 1,000 ml @ 0 mls/hr Q0M PRN OTHER 12/02/17 09:30 (Mannitol Inj) 12.5 gm UNSCH PRN IV 12/02/17 09:30 12/02/17 19:05 Albumin Human 100 ml @ 60 mls/hr UNSCH PRN IV 12/02/17 09:30 12/06/17 13:00 (NS Flush) 5 ml UNSCH PRN IV FLUSH 12/02/17 09:30 (Heparin Inj) UNSCH PRN .XX 12/02/17 09:30 12/06/17 16:00 (Gentamicin Inj) 20 mg UNSCH PRN OTHER 12/02/17 09:30 12/06/17 16:00 (Zofran Inj) 4 mg UNSCH PRN IV PUSH 12/02/17 09:30 (Tylenol) 650 mg UNSCH PRN PO 12/02/17 09:30 (Benadryl) 25 mg UNSCH PRN PO 12/02/17 09:30 (Nitrostat Sl) 0.4 mg UNSCH PRN SL 12/02/17 09:30 (Catapres) 0.1 mg UNSCH PRN PO 12/02/17 09:30 (Epogen Inj) 4,000 units UNSCH PRN IV PUSH 12/02/17 09:30 12/06/17 16:57 (Gelfoam 12 Mm/7 Mm Top) 1 foam UNSCH PRN TOP 12/02/17 09:30 (NS Flush) UNSCH PRN IV FLUSH 12/02/17 11:15 (Heparin Inj) UNSCH PRN IV FLUSH 12/02/17 11:15 Norepinephrine Bitartrate 4 mg/ Sodium Chloride 250 ml @ 7.5 mls/hr TITRATE PRN IV 12/06/17 05:15 12/06/17 23:07 (Brethine Inj) 1 mg UNSCH PRN SQ 12/06/17 05:15 (Duoneb Neb) 1 ampule Q6HR NEB NEB 12/06/17 10:15 12/07/17 21:08 Micafungin Sodium 150 mg/Sodium Chloride 100 ml @ 100 mls/hr Q24H IV 12/06/17 12:00 12/07/17 12:17 (SoluCORTEF INJ) 50 mg Q12H IV PUSH 12/07/17 23:00 (Levemir Inj) 5 units Q12HR SQ 12/07/17 12:00 12/07/17 21:38 (Fosrenol Chew) 500 mg TID CHEW 12/07/17 18:00 12/07/17 17:15 (Rocaltrol) 0.5 mcg DAILY PO 12/08/17 09:00 Allergies Allergies Coded Allergies aspirin (Unverified Allergy, Severe, 11/14/17) codeine (Verified Allergy, Severe, 11/14/17) Exam I&O / VS 12/07/17 12/07/17 12/08/17 15:00 23:00 07:00 Intake Total 210 ml 580 ml Output Total 125 ml Balance 210 ml 455 ml Intake Oral 0 ml IV Total 210 ml 291 ml Tube Feeding 169 ml Tube Irrigant 120 ml Output Urine Total 0 ml Chest Tube Drainage Total 125 ml # Bowel Movements 1 Vital Signs Date Time Temp Pulse Resp B/P (MAP) Pulse Ox O2 Delivery O2 Flow Rate FiO2 12/07/17 21:08 100 40 12/07/17 18:00 82 12/07/17 16:00 86 12/07/17 16:00 97.6 86 20 114/65 (81) 100 12/07/17 16:00 40 12/07/17 15:07 100 40 12/07/17 14:00 89 12/07/17 12:00 98.5 90 20 114/87 (96) 100 12/07/17 12:00 90 12/07/17 12:00 40 12/07/17 11:16 100 40 12/07/17 10:00 88 12/07/17 08:30 81 114/64 12/07/17 08:00 79 12/07/17 08:00 40 12/07/17 08:00 98.6 79 23 105/61 (76) 100 12/07/17 07:51 100 40 12/07/17 07:00 81 111/60 12/07/17 06:00 80 12/07/17 05:00 79 102/60 12/07/17 04:31 100 40 12/07/17 04:00 50 12/07/17 04:00 97.8 77 20 110/52 (71) 100 12/07/17 04:00 72 12/07/17 02:00 76 12/07/17 01:04 100 40 12/07/17 00:00 74 12/07/17 00:00 50 12/07/17 00:00 97.3 79 20 104/62 (76) 100 12/06/17 23:07 78 108/60 Exam Comments lethargic, not following commands PERRL, EOM intact MOTOR--no focal deficits, no posturing Objective Micro and Labs Laboratory Tests Test 12/07/17 04:30 12/07/17 14:16 White Blood Count 26.2 Red Blood Count 3.26 Hemoglobin 8.7 Hematocrit 27.2 Mean Corpuscular Volume 83.5 Mean Corpuscular Hemoglobin 26.7 Mean Corpuscular Hemoglobin Concent 32.0 Red Cell Distribution Width 19.3 Platelet Count 91 Mean Platelet Volume 9.2 Neutrophils (%) (Auto) 93.3 Lymphocytes (%) (Auto) 2.7 Monocytes (%) (Auto) 3.8 Eosinophils (%) (Auto) 0.0 Basophils (%) (Auto) 0.2 Neutrophils # (Auto) 24.5 Lymphocytes # (Auto) 0.7 Monocytes # (Auto) 1.0 Eosinophils # (Auto) 0.0 Basophils # (Auto) 0.1 CBC Comment AUTO DIFF Differential Comment AUTO DIFF CONFIRMED Platelet Estimate LOW Platelet Morphology Comment NORMAL Ovalocytes 1+ Blood Urea Nitrogen 86 Creatinine 3.68 Random Glucose 183 Total Protein 5.1 Albumin 2.5 Calcium Level 5.9 Alkaline Phosphatase 240 Aspartate Amino Transf (AST/SGOT) 146 Alanine Aminotransferase (ALT/SGPT) 101 Total Bilirubin 1.0 Sodium Level 140 Potassium Level 4.1 Chloride Level 99 Carbon Dioxide Level 24.5 Anion Gap 17 Estimat Glomerular Filtration Rate 16 Protein Corrected Calcium 6.8 Lactic Acid Level 2.2 Date/Time Source Procedure Growth Status 12/06/17 11:04 Blood Peripheral Aerobic Blood Culture - Preliminary NO GROWTH IN 1 DAY Resulted 12/06/17 11:04 Blood Peripheral Anaerobic Blood Culture - Preliminary NO GROWTH IN 1 DAY Resulted 12/06/17 17:55 Sputum Endotracheal Gram Stain - Final Resulted 12/06/17 17:55 Sputum Culture - Preliminary Pseudomonas Species Resulted 11/28/17 10:00 Urine Catheterized Urine Urine Culture - Final Nette Glabrata Complete Igor Anne MD PhD Dec 07, 2017 22:36
[2017-12-08] VITALS (20 sets, daily range): BP systolic 81–108; BP diastolic 47–59; PULSE 84–128; RESP 17–20; TEMP 97.8–99.2; O2SAT 94–100
[2017-12-08] MEDS: INSULIN ASPART SUPPLEMENTAL SCALE SQ SCH ×6 (04:00→20:00)
[2017-12-08] MEDS: RESP: ALBUTEROL 2.5 MG/IPRATROPIUM 0.5 MG NEB (SCH) NEB ×4 (04:59→19:32)
[2017-12-08] MEDS: MEROPENEM INJ 500 MG in SODIUM CHLORIDE 0.9% INJ 100 ML IV SCH (05:00)
[2017-12-08] MEDS: BUDESONIDE-FORMOTEROL 160/4.5 MCG INHALER INH SCH ×3 (07:35→21:34)
[2017-12-08] MEDS: CHLORHEXIDINE 0.12% (ORAL KIT) 15 ML CUP MT SCH ×2 (08:00→20:31)
--- NOTE | 2017-12-08 08:50 | RADRPT ---
EXAM DATE/TIME: 12/08/2017 08:25 [facility] COMPARISON: No previous studies available for comparison. INDICATIONS : Altered mental status. RADIATION DOSE: 60.64 CTDIvol (mGy) MEDICAL HISTORY : Cardiovascular disease. Hypertension. SURGICAL HISTORY : None. ENCOUNTER: Initial ACUITY: 1 day PAIN SCALE: Non-responsive LOCATION: cranial TECHNIQUE: Multiple contiguous axial images were obtained of the head. Using automated exposure control and adj ustment of the mA and/or kV according to patient size, radiation dose was kept as low as reasonably a chievable to obtain optimal diagnostic quality images. DICOM format image data is available electro nically for review and comparison. FINDINGS: CEREBRUM: The ventricles are normal for age. No evidence of midline shift, mass lesion, hemorrhage or acute in farction. No extra-axial fluid collections are seen. POSTERIOR FOSSA: The cerebellum and brainstem are intact. The 4th ventricle is midline. The cerebellopontine angle i s unremarkable. EXTRACRANIAL: The visualized portion of the orbits is intact. SKULL: The calvaria is intact. No evidence of skull fracture. CONCLUSION: Negative for acute process. Torin Dennison MD FACR on December 08, 2017 at 8:46 Board Certified Radiologist. This report was verified electronically.
[2017-12-08] MEDS: DOCUSATE SODIUM 50 MG/SENNA 8.6 MG TAB PO SCH ×2 (09:00→21:02)
[2017-12-08] MEDS: SODIUM CHLORIDE 0.9% FLUSH 10 ML FLUSH IV FLUSH SCH ×2 (09:00→20:32)
[2017-12-08] MEDS: HEPARIN SODIUM - SQ 10,000 UNITS/ML VIAL SQ SCH ×2 (09:55→21:03)
[2017-12-08] MEDS: CALCITRIOL 0.25 MCG CAP PO SCH (09:55)
[2017-12-08] MEDS: LANTHANUM CARBONATE 500 MG CHEWABLE TABLET CHEW SCH ×3 (09:55→18:25)
[2017-12-08] MEDS: LINEZOLID 600 MG TAB PO SCH (09:55)
[2017-12-08] MEDS: FAMOTIDINE 20 MG TAB PO SCH ×2 (09:55→21:03)
[2017-12-08] MEDS: FLUCONAZOLE 200 MG TAB PO SCH (09:56)
[2017-12-08] MEDS: INSULIN DETEMIR 100 UNITS/ML VIAL SQ SCH ×2 (09:57→21:00)
[2017-12-08] MEDS: HYDROCORTISONE SOD SUCCINATE 100 MG VIAL IV PUSH SCH ×2 (10:08→22:18)
--- NOTE | 2017-12-08 10:15 | HHI.CCPN ---
Subjective Remarks/Hospital Course This is a 77-year-old male with a medical history significant for COPD, CHF, A. fib, diabetes, that presented to emergency department from [facility] for evaluation of worsening shortness of breath over the last 3 days. The patient was been given Solu-Medrol 125 mg and 2 albuterol treatments enroute to ED. Upon presentation to the ED the patient was on a nonrebreather. He was tachypneic and tachycardic. Patient's medical history significant for MRSA pneumonia previously admitted on 10/27/16 for approximately 12 days at [facility]. The patient is normally on 2.5 L/m nasal cannula O2 home dependency, and he lives with ( normally) a PCO2 in the 80s according to his . Patient was then discharged to [facility], and then transferred to [facility] for rehabilitation. He has been on an unknown antibiotic per the family and steroids for the last 3 days. Laboratory and imaging studies were performed with noted elevation in CO2 The patient was given empiric antibiotics in the ED and placed on BiPAP. Critical care medicine was consulted. Subjective: 11/15: Patient maintained on BiPAP throughout the night O2 saturations 97-98% on FiO2 of 0.40. Hemodynamically stable. Attempts made to wean patient to nasal cannula this a.m. unsuccessful, patient's O2 saturation in the 70s, patient placed back on BiPAP. Chest x-ray pending WBC count significantly diminished, leukocytosis resolved. Patient extremely anxious, Precedex infusion initiated. 11/16: Late entry note. Patient seen 10 AM. Overnight the patient converted to A. fib RVR, despite being on Cardizem 4 times a day and metoprolol twice a day- home medications, the patient received IV Cardizem followed by amiodarone infusion. Per report the patient became hypotensive, Cardizem discontinued. Amiodarone continued. Early this a.m. patient was resting comfortably A. fib rate controlled rate. The patient suddenly converted to A. fib RVR heart rate 150s-160s, acute hypoxemic respiratory failure, requiring intubation. The patient was intubated uneventfully and continues on amiodarone at 0.5 mg/hour, rate now controlled in conjunction with sedation. Cardiology consulted, his solderer is Dr. Reyes X-ray revealed lung consolidation improved, chest x- ray clear. Plan for CPAP trials in a.m.. 11/17: No acute events overnight. Patient had 1 short 8 beat run of V. tach last evening was self resolution, electrolytes within normal limits. The patient continues on amiodarone 0.5 mg/hr. CPAP trials initiated this a.m.. Tube feeds initiated at trickle feeds. Patient converted to sinus rhythm at 2 AM. 11/18 Patient remains sedated and intubated. Afebrile. 11/19 Patient was extubated yesterday however last night he was noted to choke on water provided by the family. Stat ABG demonstrated acute hypercapnic respiratory failure and was emergently intubated. Currently sedated and intubated. 11/20 Patient remains intubated on Fentanyl drip however he si awake and alert. Afebrile. 11/21 Patient is awake and alert placed on CPAP with PS:15, PEEP:5. Afebrile. 11/22 Patient remains intubated , did not tolerate CPAP trials yesterday as he became tachycardic and hypertensive. On no sedation awake and alert. 11/23 No events overnight, off sedation. 11/24: Resting comfortably on mechanical ventilation currently. Daily C Pap trials ongoing. 11/25: Sedated with Precedex, orally intubated on mechanical ventilation. Daily C Pap trials 11/26: Sedated with Precedex, orally intubated on mechanical ventilation. Got tachypneic with CPAP trial today hence placed back on PRVC. Spiked a fever, garcia cultures ordered. Went into A. fib with RVR subsequently for which being initiated on amiodarone bolus followed by drip and Lopressor 5 mg IV every 6 as needed for 11/27: This morning patient developed bradycardia followed by asystole for which she had 3 minutes CPR with ACLS protocol with return of spontaneous circulation. Post code chest x-ray revealed moderate to large right pneumothorax for which a right pigtail catheter was placed by me however despite airleak patient continue have moderate to large pneumothorax hence a second right sided 28 Serbian chest tube was placed to -40 cm water pressure. Air leaks 1+ in both pigtail catheter and chest tube. Patient remains in a flutter currently. Dr. reyes evaluated patient as well following cardiac arrest. 11/28: Sedated, arousable, orally intubated on mechanical ventilation. Worsening renal function noted. MDR Pseudomonas in sputum. Right sided chest tube/ pigtail catheter with 1+ air leak in both. Subcutaneous emphysema noted over right side of face neck and right upper extremity. On 50% FiO2, PEEP +5. Poor urine output for which 500 cc and is bolus given earlier. Treated for hyperkalemia with Kayexalate PO, glucose insulin, calcium IV. 4/2: Remains sedated, arousable, orally intubated on mechanical ventilation. A. fib with RVR this morning for which she was loaded with amiodarone and initiated on amiodarone drip. Spiking fever 103.5. ID adjusting antibiotics. Stool for C. difficile ordered as he had some diarrhea today though received Kayexalate yesterday for hyperkalemia. Pigtail catheter on the right side appeared to be dislodged hence this was removed. 28 Serbian chest tube in right pleural cavity repositioned. 11/30: Late entry note , patient seen at 12 noon. Creatinine continues to trend upward.Sedated but easily arousable. 12/01: Patient lightly sedated, following commands this a.m.. Creatinine noted increased, possible dialysis consideration for tomorrow. Patient to be diuresed today. CPAP trial initiated failed after 5 minutes, repeat this afternoon. 12/02: Patient placed on Lasix infusion throughout the night . No renal improvement,creatinine worsened today , plan for Vas-Cath placement and IHD today. This extensive discussion with patient and plans for tracheostomy and PEG tube placement secondary to failure to wean. 12/03: Late entry note, patient seen at 11 am. Patient scheduled for PEG placement today by Dr. Iglesias. Patient continues to fail CPAP trials. Plan for tracheostomy in the near future 12/04: Late entry note . Patient seen earlier this am. Overnight the patient became hypoglycemic, secondary to n.p.o. status, post PEG placement. D10 was initiated at 30 cc/hr. Tube feeds reinitiated Jevity 1.5, 24 hours post PEG tube placed, D10 discontinued. Patient remains on fentanyl at 100 mics/hour, lightly sedated. Patient denies pain answering by nodding head to yes and no questions. Tracheostomy planned for Wednesday12/06/[address] Calderon. 12/05: Remains intubated sedated with 50 mcg of fentanyl. On attempted CPAP trial patient remained dyspneic. Significant neuromuscular weakness persist. Chest x-ray shows small right apical pneumothorax. Tentatively plan for tracheostomy tomorrow. Dr. Calderon has already been consulted 12/06 Patient remains intubated for possible trach today. On Levophed 12 mics. Afebrile. 12/07 No events overnight. Trach was placed on hold yesterday as patient was on Levophed. He is down to 5 mics today. Afebrile. 12/08 Patient remains intubated on no sedation. CT brain this morning showed no acute process. Off Levophed. Objective Vital Signs Date Time Temp Pulse Resp B/P (MAP) Pulse Ox O2 Delivery O2 Flow Rate FiO2 12/08/17 07:37 97 35 12/08/17 06:00 93 12/08/17 04:00 99.0 20 108/52 (70) Intake and Output 12/08/17 12/08/17 12/09/17 08:00 16:00 00:00 Intake Total 349 ml Output Total 25 ml Balance 324 ml Result Diagram: 12/07/17 0430 12/07/17 0430 Other Results Laboratory Tests Test 12/07/17 14:16 Lactic Acid Level 2.2 mmol/L Imaging Last Impressions Head CT 12/08/17 0000 Signed Impressions: Service Date/Time: Friday, December 08, 2017 08:25 - CONCLUSION: Negative for acute process. Torin Dennison MD FACR Chest X-Ray 12/07/17 0000 Signed Impressions: Service Date/Time: Thursday, December 07, 2017 21:21 - CONCLUSION: 1. Right- sided chest tube in place with no visualized pneumothorax. There is been interval decrease in subcutaneous emphysema over the right lateral chest wall. 2. Stable blunting of left costophrenic angle with hazy opacity remaining at the left lung base. Liang Jimenez MD Liver Ultrasound 12/06/17 0000 Signed Impressions: Service Date/Time: Wednesday, December 06, 2017 11:19 - CONCLUSION: 1. Nondiagnostic right upper quadrant ultrasound examination. Anil Aldana MD Catheter Placement X-Ray 12/02/17 0000 Signed Impressions: Service Date/Time: November 10:47 - CONCLUSION: Uncomplicated right internal jugular Vas-Cath placement as above. incidental note is made of subcutaneous emphysema within the chest wall and neck Con Dennison MD Lower Extremity Ultrasound 11/29/17 0000 Signed Impressions: Service Date/Time: Wednesday, November 29, 2017 22:02 - CONCLUSION: Normal examination. Abdiel Mcintyre MD Renal Ultrasound 11/28/17 0000 Signed Impressions: Service Date/Time: Tuesday, November 28, 2017 20:30 - CONCLUSION: Nondiagnostic exam. Rashad Bose MD Objective Remarks GENERAL: Patient is 77 yo intubated awake nodding yes and no to questions, awake alert SKIN: Warm and dry. HEAD: Normocephalic. Mild subcutaneous emphysema involving right side of face neck shoulder and arm. EYES: No scleral icterus. No injection or drainage. NECK: Supple, trachea midline. No JVD or lymphadenopathy. CARDIOVASCULAR: S1-S2 irregularly irregular, no gallop or murmur. RESPIRATORY: Orally intubated on mechanical ventilation, air entry decreased bilaterally, scattered rhonchi bilaterally, no wheezing. Right sided chest tube with 1+ airleak. Subcutaneous emphysema or right chest wall, neck, right side of face and right upper extremity. GASTROINTESTINAL: Abdomen soft, non-tender, nondistended. MUSCULOSKELETAL: Bilateral peripheral edema +2 Neuro: Awake, orally intubated, on mechanical ventilation, follows simple commands intermittently A/P Problem List: (1) A-fib ICD Code: I48.91 - Unspecified atrial fibrillation (2) CHF (congestive heart failure) ICD Code: I50.9 - Heart failure, unspecified Status: Chronic (3) HTN (hypertension) ICD Code: I10 - Essential (primary) hypertension Status: Chronic (4) ADRIAN (obstructive sleep apnea) ICD Code: G47.33 - Obstructive sleep apnea (adult) (pediatric) Status: Chronic (5) MRSA pneumonia ICD Code: J15.212 - Pneumonia due to Methicillin resistant Staphylococcus aureus Status: Acute (6) Diabetes mellitus type 2, insulin dependent ICD Code: E11.9 - Type 2 diabetes mellitus without complications; Z79.4 - adjunct faculty for medical terminology (current) use of insulin Status: Chronic (7) COPD (chronic obstructive pulmonary disease) ICD Code: J44.9 - Chronic obstructive pulmonary disease, unspecified Status: Acute (8) Respiratory distress ICD Code: R06.03 - Acute respiratory distress Status: Acute (9) Leukocytosis ICD Code: D72.829 - Elevated white blood cell count, unspecified Status: Acute (10) Lung consolidation ICD Code: J18.1 - Lobar pneumonia, unspecified organism Status: Acute (11) Anxiety ICD Code: F41.9 - Anxiety disorder, unspecified Status: Chronic (12) Failure to wean from mechanical ventilation ICD Code: Z99.11 - Dependence on respirator [ventilator] status Assessment and Plan Plan by systems: Neurologic: Possible Anoxic encephalopathy following cardiac arrest Anxiety disorder Off sedation, monitor neuro status, Neuro checks per ICU protocol EEG: Mild- mod encephalopathy. Neuro is following- Dr. Anne. CT brain today no acute process Hold gabapentin 300mmg q HS home med Respiratory: Acute respiratory failure on mechanical ventilation- extubated and reintubated night of 11/18 after he was noted to choke on water provided by family. COPD exacerbation Pneumonia-MRSA, MDR Pseudomonas Right sided pneumothorax following CPR status post pigtail catheter/chest tube placement 11/27 Obstructive sleep apnea Home O2 dependency Continue with vent support keep sats >92% Bronchodilators, HC 50mg IV Q12 Pulmonology - Dr Price, Right sided chest tube in place. Continue 28 F right chest tube to -40 cm water pressure with underwater seal. 12/02 general surgery consult for tracheostomy-plan for tracheostomy when stable Check CXR today Cardiovascular: A. fib RVR Cardiac arrest - asystole, status post CPR 11/27 History of CHF CAD Off Levophed keep MAP>65mmHg. Lactic acid:2.2 Atorvastatin 80 daily on hold for elevated LFT's Cardiology - Dr. Reyes Echo showed EF 65-70% Renal: DAVID Monitor renal function, electrolytes replacement as needed Nephrology Dr. Ragland. 12/02 Vas-Cath placed for initiation of IHD . s/p HD 12/06 with 1L removed For HD today FEN/GI: Elevated LFT's GERD Monitor LFT's, US liver: non diagnostic study On tube feeds -change to Nepro with goal, 40cc/hr. Pepcid for GI prophylaxis Replete electrolytes per ICU 12/03 PEG tube placement ID: Pneumonia MRSA, MDR Pseudomonas Leukocytosis ID following- Antibiotics per ID (on Zyvox,Merrem, fluconazole,Micafungin) Stool for C. difficile negative on 11/29 and 12/06 Pertinent cultures Follow up on sputum and blood culture from 12/06 11/16 sputum cultures- Kleb pneumonia 11/26 sputum cultures growing multidrug resistant Pseudomonas/MRSA 11/28 urine culture growing yeast 11/26 blood culture neg Heme Monitor CBC Endocrine: Glucose monitoring per ICU protocol -- SSI(high scale) Levemir 5u Q12 and taper IV steroids Prophylaxis: GI Prophylaxis Famotidine BID DVT Prophylaxis -- SCDs Held home dose Eliquis 5 mg BID on 11/27 in view of anticipated procedures Heparin 5000 units subcutaneously every 8 hourly for DVT prophylaxis started on 11/28. Lines: Left IJ central line placed 11/28, d/c central line and place peripheral IV's Palliative care is following Level 3 Problem Qualifiers (1) COPD (chronic obstructive pulmonary disease): Qualified Codes: J44.9 - Chronic obstructive pulmonary disease, unspecified (2) Leukocytosis: Qualified Codes: D72.829 - Elevated white blood cell count, unspecified Carmen Richard MD Dec 08, 2017 10:15
--- NOTE | 2017-12-08 11:05 | RADRPT ---
EXAM DATE/TIME: 12/08/2017 10:25 [facility] COMPARISON: CHEST SINGLE AP, November 27, 2017, 10:06. CHEST SINGLE AP, November 27, 2017, 11:21. CHEST SINGLE AP, [facility] 2017, 4:44. CHEST SINGLE AP, November 24, 2017, 3:50. CHEST SINGLE AP, November 27, 2017, 17:44. CHEST SINGLE AP, December 02, 2017, 4:07. CHEST SINGLE AP, December 03, 2017, 4:44. CHEST SINGLE AP, Nov, 21:21. INDICATIONS : Ventilator dependent respiratory failure MEDICAL HISTORY : Cardiovascular disease. Hypertension Chronic obstructive pulmonary disease. chf, diabetes SURGICAL HISTORY : None. ENCOUNTER: Initial ACUITY: 1 month PAIN SCORE: Non-responsive. LOCATION: Bilateral chest FINDINGS: Right chest tube. Moderate right subcutaneous emphysema with trace pneumothorax.. Lines in good pos ition. Consolidative changes left base. CONCLUSION: Right chest tube with increasing subcutaneous emphysema and trace pneumothorax. Torin Dennison MD FACR on December 08, 2017 at 11:00 Board Certified Radiologist. This report was verified electronically.
[2017-12-08 11:15] LABS: AUTOMATED NEUTROPHIL # 30.2 TH/MM3 (1.8-7.7); BASOPHIL # 0.1 TH/MM3 (0-0.2); BASOPHIL % 0.2 % (0.0-2.0); HEMATOCRIT 30.1 % (39.0-51.0); HEMOGLOBIN 9.2 GM/DL (13.0-17.0); LYMPH % 3.9 % (9.0-44.0); LYMPHOCYTE # 1.3 TH/MM3 (1.0-4.8); MEAN CELL VOLUME 86.2 FL (80.0-100.0); MEAN CORPUSCULAR HEMOGLOBIN 26.4 PG (27.0-34.0); MEAN CORPUSCULAR HGB CONC 30.6 % (32.0-36.0); MEAN PLATELET VOLUME 9.4 FL (7.0-11.0); MONO % 3.2 % (0.0-8.0); NEUT % 92.7 % (16.0-70.0); PLATELET COUNT 70 TH/MM3 (150-450); RED CELL DISTRIBUTION WIDTH 19.8 % (11.6-17.2); WHITE BLOOD COUNT 32.6 TH/MM3 (4.0-11.0)
[2017-12-08 11:31] LABS: ALBUMIN 2.1 GM/DL (3.4-5.0); BICARBONATE 21.1 MEQ/L (21.0-32.0); CALCIUM 5.9 MG/DL (8.5-10.1); CREATININE 4.4 MG/DL (0.60-1.30)
[2017-12-08 11:34] LABS: CALCIUM-PROTEIN CORRECTED 6.8 MG/DL (8.5-10.1)
[2017-12-08 11:51] LABS: LYMPHOCYTES 1 % (9-44); MONOCYTES 5 % (0-8); NEUTROPHIL # MANUAL DIFF 30.6 TH/MM3 (1.8-7.7); OVALOCYTES 1+ (NORMAL); POLYS (SEG NEUTROPHILS) 94 % (16-70)
[2017-12-08] MEDS: MICAFUNGIN INJ 150 MG in SODIUM CHLORIDE 0.9% INJ 100 ML IV SCH (12:28)
--- NOTE | 2017-12-08 15:03 | HHI.IDPN ---
Note Infectious Disease Note Patient on the ventilator. He is awake. Afebrile. Off Levophed since yesterday.. Diffuse edema. weeping at the extremities. loose stools. White blood cell count has increased. Repeat sputum culture has multiple resistant Pseudomonas aeruginosa. Chest tube in place on the right due to pneumothorax. 77-year-old, white male who presents to the Emergency Department with shortness of breath. The patient has a history of COPD and CHF. He usually uses CPAP at the assisted living facility. He was noted to have been developing coughing and shortness of breath over the past couple of days, and his states that he was coughing a lot yesterday and bringing up mostly phlegm and that he was restless and could not sleep. Recently treated at [facility] for pneumonia due to methicillin-resistant Staphylococcus aureus. PAST MEDICAL HISTORY: COPD, CHF, atrial fibrillation, insulin-dependent diabetes mellitus, hypertension, hyperlipidemia, gastroesophageal reflux, gastroparesis, iron deficiency anemia, oxygen-dependent. PAST SURGICAL HISTORY: Right knee surgery, right carpal tunnel release, cardiac ablation treatment 2002. ALLERGIES: ASPIRIN, CODEINE. MEDICATIONS: Current Medications Medications (Trade) Dose Ordered Sig/Yani Route PRN Reason Start Time Stop Time Status Last Admin Dose Admin Sodium Chloride (NS Flush) 2 ml UNSCH PRN IV FLUSH FLUSH AFTER USING IV ACCESS 11/14/17 15:45 11/17/17 14:05 Sodium Chloride (NS Flush) 2 ml BID IV FLUSH 11/14/17 21:00 12/08/17 09:00 Ondansetron HCl (Zofran Inj) 4 mg Q6H PRN IV PUSH NAUSEA OR VOMITING 11/14/17 15:45 11/18/17 16:03 Miscellaneous Information 1 Q361D XX 11/14/17 15:45 11/14/17 15:45 Chlorhexidine Gluconate (Chlorhexidine 2% Cloth) 3 pack Taper DAILY@04 TOP 11/15/17 04:00 11/11/18 03:59 12/07/17 04:00 Chlorhexidine Gluconate (Chlorhexidine 2% Cloth) 3 pack UNSCH PRN TOP HYGIENIC CARE 11/14/17 15:45 Senna/Docusate Sodium (Ricarda-Colace) 1 tab BID PO 11/14/17 21:00 12/07/17 21:39 Magnesium Hydroxide (Milk Of Magnesia Liq) 30 ml Q12H PRN PO Mild constipation 11/14/17 15:45 Sennosides (Senokot) 17.2 mg Q12H PRN PO Moderate constipation 11/14/17 15:45 Bisacodyl (Dulcolax Supp) 10 mg DAILY PRN RECTAL SEVERE CONSITIPATION 11/14/17 15:45 Lactulose (Lactulose Liq) 30 ml DAILY PRN PO SEVERE CONSITIPATION 11/14/17 15:45 Apixaban (Eliquis) 5 mg BID PO 11/14/17 21:00 Future Hold 11/27/17 20:17 Atorvastatin Calcium (Lipitor) 80 mg HS PO 11/14/17 21:00 Future Hold 12/05/17 19:49 Digoxin (Lanoxin) 0.125 mg DAILY PO 11/15/17 09:00 Future Hold 11/17/17 08:24 Diltiazem HCl (Cardizem) 60 mg QID PO 11/14/17 18:00 Future Hold 12/06/17 08:44 Patient Own Medication PT OWN MED: [facility]... HS INH 11/14/17 21:00 Future Hold Hydralazine HCl (Apresoline Inj) 20 mg Q4H PRN IV PUSH SYS BP GREATER THAN 160 MMHG 11/17/17 12:00 11/22/17 07:38 Budesonide/ Formoterol Fumarate (Symbicort 160-4.5 Mcg Inh) 2 puff Q12HR INH 11/18/17 21:00 12/08/17 07:35 Chlorhexidine Gluconate (Peridex 0.12% Liq) 15 ml BID@08,20 MT 11/19/17 08:00 12/08/17 08:00 Albuterol/ Ipratropium (Duoneb Neb) 1 ampule Q2HR NEB PRN INH WHEEZING 11/18/17 22:30 12/03/17 04:07 Famotidine (Pepcid) 10 mg BID PO 11/22/17 21:00 12/08/17 09:55 Insulin Aspart (NovoLOG SUPPLEMENTAL SCALE) 1 Q4HR SQ 11/26/17 16:00 12/08/17 08:00 Dextrose (D50w (Vial) Inj) 25 ml UNSCH PRN IV HYPOGLYCEMIA-SEE COMMENTS 11/26/17 15:30 12/04/17 01:18 Glucagon (Glucagon Inj) 1 mg UNSCH PRN IM/SQ HYPOGLYCEMIA-SEE COMMENTS 11/26/17 15:30 Linezolid (Zyvox) 600 mg Q12HR PO 11/27/17 09:30 12/08/17 09:55 Fentanyl Citrate 250 ml @ 5 mls/hr TITRATE PRN IV SEDATION 11/27/17 13:45 12/03/17 08:58 Meropenem 500 mg/ Sodium Chloride 100 ml @ 200 mls/hr Q12H IV 11/28/17 17:00 12/08/17 05:00 Heparin Sodium (Porcine) (Heparin Inj) 5,000 units Q12HR SQ 11/28/17 21:00 12/08/17 09:55 Metoprolol Tartrate (Lopressor Inj) 5 mg Q6H PRN IV PUSH heart rate greater than 135/mi 11/29/17 09:15 Fluconazole (Diflucan) 400 mg DAILY PO 12/02/17 09:00 12/08/17 09:56 Sodium Chloride 1,000 ml @ 0 mls/hr Q0M PRN OTHER For Prime & Rinse Back 12/02/17 09:30 Heparin Sodium (Porcine) (Heparin Inj) 8,000 units UNSCH PRN IV FLUSH WITH DIALYSIS 12/02/17 09:30 Sodium Chloride 1,000 ml @ 200 mls/hr Q5H PRN IV WITH DIALYSIS 12/02/17 09:30 Sodium Chloride 1,000 ml @ 0 mls/hr Q0M PRN OTHER WITH DIALYSIS 12/02/17 09:30 Mannitol (Mannitol Inj) 12.5 gm UNSCH PRN IV WITH DIALYSIS 12/02/17 09:30 12/02/17 19:05 Albumin Human 100 ml @ 60 mls/hr UNSCH PRN IV WITH DIALYSIS 12/02/17 09:30 12/06/17 13:00 Sodium Chloride (NS Flush) 5 ml UNSCH PRN IV FLUSH WITH DIALYSIS 12/02/17 09:30 Heparin Sodium (Porcine) (Heparin Inj) UNSCH PRN .XX WITH DIALYSIS 12/02/17 09:30 12/06/17 16:00 Gentamicin Sulfate (Gentamicin Inj) 20 mg UNSCH PRN OTHER WITH DIALYSIS 12/02/17 09:30 12/06/17 16:00 Ondansetron HCl (Zofran Inj) 4 mg UNSCH PRN IV PUSH WITH DIALYSIS 12/02/17 09:30 Acetaminophen (Tylenol) 650 mg UNSCH PRN PO for headach, pain, temp > 101F 12/02/17 09:30 Diphenhydramine HCl (Benadryl) 25 mg UNSCH PRN PO for hives/itching/anaphylaxis 12/02/17 09:30 Nitroglycerin (Nitrostat Sl) 0.4 mg UNSCH PRN SL CHEST PAIN 12/02/17 09:30 Clonidine (Catapres) 0.1 mg UNSCH PRN PO for BP > 180/100 X 2 readings 12/02/17 09:30 Epoetin Kvng (Epogen Inj) 4,000 units UNSCH PRN IV PUSH WITH DIALYSIS 12/02/17 09:30 12/06/17 16:57 Gelatin (Gelfoam 12 Mm/7 Mm Top) 1 foam UNSCH PRN TOP SEE LABEL COMMENTS 12/02/17 09:30 Sodium Chloride (NS Flush) UNSCH PRN IV FLUSH SEE PROTOCOL 12/02/17 11:15 Heparin Sodium (Porcine) (Heparin Inj) UNSCH PRN IV FLUSH SEE PROTOCOL 12/02/17 11:15 Terbutaline Sulfate (Brethine Inj) 1 mg UNSCH PRN SQ For Extravasation 12/06/17 05:15 Albuterol/ Ipratropium (Duoneb Neb) 1 ampule Q6HR NEB NEB 12/06/17 10:15 12/08/17 14:40 Micafungin Sodium 150 mg/Sodium Chloride 100 ml @ 100 mls/hr Q24H IV 12/06/17 12:00 12/08/17 12:28 Hydrocortisone Sodium Succinate (SoluCORTEF INJ) 50 mg Q12H IV PUSH 12/07/17 23:00 12/08/17 10:08 Insulin Detemir (Levemir Inj) 5 units Q12HR SQ 12/07/17 12:00 12/08/17 09:57 Lanthanum Carbonate (Fosrenol Chew) 500 mg TID CHEW 12/07/17 18:00 12/08/17 12:28 Calcitriol (Rocaltrol) 0.5 mcg DAILY PO 12/08/17 09:00 12/08/17 09:55 OBJECTIVE: Vital Signs Date Time Temp Pulse Resp B/P (MAP) Pulse Ox O2 Delivery O2 Flow Rate FiO2 12/08/17 12:00 99.0 89 20 81/53 (62) 97 12/08/17 12:00 89 12/08/17 12:00 35 12/08/17 11:04 99 35 12/08/17 10:00 89 12/08/17 08:15 100 100 12/08/17 08:00 92 12/08/17 08:00 35 12/08/17 08:00 99.2 92 20 92/59 (70) 98 12/08/17 07:37 97 35 12/08/17 06:00 93 12/08/17 04:59 96 40 12/08/17 04:00 99.0 108 20 108/52 (70) 12/08/17 04:00 40 12/08/17 04:00 108 12/08/17 02:00 92 12/08/17 00:57 94 40 12/08/17 00:00 105 12/08/17 00:00 40 12/08/17 00:00 97.9 103 20 100/55 (70) 100 12/08/17 00:00 103 12/07/17 21:08 100 40 12/07/17 20:00 86 12/07/17 20:00 98.8 86 20 108/56 (73) 100 12/07/17 20:00 40 12/07/17 18:00 82 12/07/17 16:00 86 12/07/17 16:00 97.6 86 20 114/65 (81) 100 12/07/17 16:00 40 12/07/17 15:07 100 40 Laboratory Tests Test 12/07/17 04:30 12/08/17 10:31 White Blood Count 26.2 TH/MM3 32.6 TH/MM3 Red Blood Count 3.26 MIL/MM3 3.50 MIL/MM3 Hemoglobin 8.7 GM/DL 9.2 GM/DL Hematocrit 27.2 % 30.1 % Mean Corpuscular Volume 83.5 FL 86.2 FL Mean Corpuscular Hemoglobin 26.7 PG 26.4 PG Mean Corpuscular Hemoglobin Concent 32.0 % 30.6 % Red Cell Distribution Width 19.3 % 19.8 % Platelet Count 91 TH/MM3 70 TH/MM3 Mean Platelet Volume 9.2 FL 9.4 FL Neutrophils (%) (Auto) 93.3 % 92.7 % Lymphocytes (%) (Auto) 2.7 % 3.9 % Monocytes (%) (Auto) 3.8 % 3.2 % Eosinophils (%) (Auto) 0.0 % 0.0 % Basophils (%) (Auto) 0.2 % 0.2 % Neutrophils # (Auto) 24.5 TH/MM3 30.2 TH/MM3 Lymphocytes # (Auto) 0.7 TH/MM3 1.3 TH/MM3 Monocytes # (Auto) 1.0 TH/MM3 1.0 TH/MM3 Eosinophils # (Auto) 0.0 TH/MM3 0.0 TH/MM3 Basophils # (Auto) 0.1 TH/MM3 0.1 TH/MM3 CBC Comment AUTO DIFF AUTO DIFF Differential Comment AUTO DIFF CONFIRMED FINAL DIFF MANUAL Platelet Estimate LOW LOW Platelet Morphology Comment NORMAL NORMAL Ovalocytes 1+ 1+ Differential Total Cells Counted 100 Neutrophils % (Manual) 94 % Lymphocytes % 1 % Monocytes % 5 % Neutrophils # (Manual) 30.6 TH/MM3 Red Cell Morphology Comment Laboratory Tests Test 12/06/17 22:05 12/07/17 04:30 12/07/17 14:16 12/08/17 10:31 Potassium Level 4.2 MEQ/L 4.1 MEQ/L 4.9 MEQ/L Blood Urea Nitrogen 86 MG/DL 108 MG/DL Creatinine 3.68 MG/DL 4.40 MG/DL Random Glucose 183 MG/DL 155 MG/DL Total Protein 5.1 GM/DL 5.0 GM/DL Albumin 2.5 GM/DL 2.1 GM/DL Calcium Level 5.9 MG/DL 5.9 MG/DL Alkaline Phosphatase 240 U/L 305 U/L Aspartate Amino Transf (AST/SGOT) 146 U/L 153 U/L Alanine Aminotransferase (ALT/SGPT) 101 U/L 100 U/L Total Bilirubin 1.0 MG/DL 1.0 MG/DL Sodium Level 140 MEQ/L 137 MEQ/L Chloride Level 99 MEQ/L 98 MEQ/L Carbon Dioxide Level 24.5 MEQ/L 21.1 MEQ/L Anion Gap 17 MEQ/L 18 MEQ/L Estimat Glomerular Filtration Rate 16 ML/MIN 13 ML/MIN Protein Corrected Calcium 6.8 MG/DL 6.8 MG/DL Lactic Acid Level 2.2 mmol/L Microbiology Date/Time Source Procedure Growth Status 12/06/17 11:04 Blood Peripheral Aerobic Blood Culture - Preliminary NO GROWTH IN 2 DAYS Resulted 12/06/17 11:04 Blood Peripheral Anaerobic Blood Culture - Preliminary NO GROWTH IN 2 DAYS Resulted 12/06/17 11:00 Blood Peripheral Aerobic Blood Culture - Preliminary NO GROWTH IN 2 DAYS Resulted 12/06/17 11:00 Blood Peripheral Anaerobic Blood Culture - Preliminary NO GROWTH IN 2 DAYS Resulted 12/06/17 17:55 Sputum Endotracheal Gram Stain - Final Resulted 12/06/17 17:55 Sputum Culture - Preliminary Pseudomonas Aeruginosa Multi-Drug Resistant Resulted Laboratory Tests Test 12/05/17 03:00 12/06/17 03:00 12/06/17 11:00 12/06/17 11:04 Blood Urea Nitrogen 70 MG/DL 97 MG/DL Creatinine 3.49 MG/DL 4.14 MG/DL Random Glucose 132 MG/DL 241 MG/DL Total Protein 5.2 GM/DL 5.1 GM/DL Calcium Level 7.0 MG/DL 6.1 MG/DL Sodium Level 140 MEQ/L 137 MEQ/L Potassium Level 4.7 MEQ/L 5.7 MEQ/L Chloride Level 100 MEQ/L 97 MEQ/L Carbon Dioxide Level 26.0 MEQ/L 25.6 MEQ/L Anion Gap 14 MEQ/L 14 MEQ/L Estimat Glomerular Filtration Rate 17 ML/MIN 14 ML/MIN Protein Corrected Calcium 8.0 MG/DL 7.0 MG/DL Albumin 2.1 GM/DL Alkaline Phosphatase 282 U/L Aspartate Amino Transf (AST/SGOT) 126 U/L Alanine Aminotransferase (ALT/SGPT) 120 U/L Total Bilirubin 0.8 MG/DL Ammonia 21 MCMOL/L Lactic Acid Level 3.6 mmol/L Microbiology Date/Time Source Procedure Growth Status 12/06/17 11:04 Blood Peripheral Aerobic Blood Culture Pending Received 12/06/17 11:04 Blood Peripheral Anaerobic Blood Culture Pending Received 12/06/17 11:00 Blood Peripheral Aerobic Blood Culture Pending Received 12/06/17 11:00 Blood Peripheral Anaerobic Blood Culture Pending Received PHYSICAL EXAMINATION: GENERAL: Sedated. Awake. HEENT: No icterus. EOMI. NECK: No swelling or adenopathy. LUNGS: Basilar rhonchi. Mild wheezing at the bases. HEART: Regular without audible murmurs. ABDOMEN: Bowel sounds present, obese, soft. Non tender. EXTREMITIES: 3+ diffuse edema. Bullae at the extremities. Cyanosis at the tips of the toes. Both feet and tibia is of extremely cold to palpation. SKIN: No diffuse rash. NEUROLOGIC: Nonfocal. PSYCHIATRIC: Calm and cooperative. IMPRESSION: 1. Sepsis. 2. Pneumonia Pseudomonas MDR. Latest sputum culture continues to have Pseudomonas. Could be colonization. However with his seriously ill clinical condition he may have ongoing pneumonia. 3. Acute respiratory failure. Vent dependent. Extubated previously and appears to have aspirated. 4. Leukocytosis. WBC increased again. 5. Nette glabrata UTI. 6. Right-sided pneumothorax. Subcutaneous emphysema. 7. History of chronic obstructive pulmonary disease and recent chronic obstructive pulmonary disease exacerbation. 8. Renal insufficiency. RECOMMENDATIONS: 1. Stop Zyvox. 2. Stop meropenem. 3. Stop Diflucan. 4. Continue Micafungin. Patient has been on broad-spectrum antibiotics And has potential for systemic fungal infection. LFTs also increasing and could be due to Diflucan. Monitor white blood cell count. 6. Begin Zerbaxa. 7. Begin Levaquin. 8. Monitor white blood cell count. 9. Monitor LFTs. 10. Monitor clinical status. Discussed with RN and patient's at bedside. Tom Long MD Dec 08, 2017 15:03
[2017-12-08] MEDS: ALBUMIN 25% INJ 100 ML IV PRN ×2 (16:43→16:48)
[2017-12-08] MEDS: SODIUM CHLOR 0.9% 1000 ML INJ 1,000 ML OTHER PRN (16:50)
[2017-12-08] MEDS: MANNITOL 12.5 GM/50 ML VIAL IV PRN (16:50)
[2017-12-08] MEDS: HEPARIN SODIUM - IV 10,000 UNITS/10 ML VIAL PRN (16:50)
--- NOTE | 2017-12-08 16:50 | HHI.NPPN ---
Subjective Renal Failure: Acute History of Present Illness This is a 77-year-old male with past medical history of ischemic heart disease, atrial fibrillation, congestive heart failure, possibly diastolic dysfunction, diabetes mellitus, chronic obstructive pulmonary disease, was admitted on 11/14 with respiratory distress. Nephrology was called to see the patient because of elevated BUN and creatinine. The patient has creatinine of 1.1 on admission, which increased after 2 or 3 to 1.3-1.5 and for the last 2 days, it has been going up and now it is 2.8. The patient was initially diagnosed with pneumonia and was started on antibiotics and then later on, patient developed respiratory failure and was intubated. He was also found to have asystole on 11/27 for 3 minutes and CPR was done with ACLS protocol, and it was shown that he has large right-sided pneumothorax. The blood pressure has been stable and there are no significant hypotensive episodes documented. Most of the history was taken from he patient' s chart. Additional Remarks Patient is intubated. Bilateral lower extremity edema present and weeping. Blood pressure is low not on pressors. Dialysis starting. (Adeola Velez) Review of Systems General General Remarks Unable to do ROS as patient is intubated (Adeola Velez) Objective Data Data Vital Signs Date Time Temp Pulse Resp B/P (MAP) Pulse Ox O2 Delivery O2 Flow Rate FiO2 12/08/17 16:00 84 12/08/17 16:00 35 12/08/17 14:41 97 35 12/08/17 14:00 86 12/08/17 12:00 99.0 89 20 81/53 (62) 97 12/08/17 12:00 89 12/08/17 12:00 35 12/08/17 11:04 99 35 12/08/17 10:00 89 12/08/17 08:15 100 100 12/08/17 08:00 92 12/08/17 08:00 35 12/08/17 08:00 99.2 92 20 92/59 (70) 98 12/08/17 07:37 97 35 12/08/17 06:00 93 12/08/17 04:59 96 40 12/08/17 04:00 99.0 108 20 108/52 (70) 4/11/18 04:00 40 12/08/17 04:00 108 12/08/17 02:00 92 12/08/17 00:57 94 40 12/08/17 00:00 105 12/08/17 00:00 40 12/08/17 00:00 97.9 103 20 100/55 (70) 100 12/08/17 00:00 103 12/07/17 21:08 100 40 12/07/17 20:00 86 12/07/17 20:00 98.8 86 20 108/56 (73) 100 12/07/17 20:00 40 12/07/17 18:00 82 (Adeola Velez) -: 12/08/17 1031 12/08/17 1031 Tubes & Lines: Vas-Cath, Haynes (Adeola Velez) Physical Exam General Appearance: No Acute Distress, Obese (Adeola Velez) Eyes Eye Exam: Pupils Equal (Adeola Velez) Pulmonary Resp Exam: Breath Sounds Equal Resp Remarks SQ emphysema present Intubated CT right chest wall (Adeola Velez) Cardiology CV Exam: Regular (Adeola Velez) Gastrointestinal/Abdomen GI Exam: Soft, Non-Tender, Distended (Adeola Velez) Genitourinary Exam: Flank Non-Tender (Adeola Velez) Integumentary Skin Exam: Clear, Warm (Adeola Velez) Extremeties Extremities Exam: Moderate Edema (Adeola Velez) Neurologic Neuro Exam: Awake (Adeola Velez) Assessment/Plan Assessment Summary: DAVID/Acute Renal Failure Problem List: (1) DAVID (acute kidney injury) ICD Codes: N17.9 - Acute kidney failure, unspecified Plan: Acute kidney injury most likely related to prerenal vs acute tubular necrosis, either from the infection or related to his cardiac status and cardiac arrest. Renal US unable to visualize kidneys or bladder? UOP continues to be minimal Potassium WNL Plan Renal dose antibiotics Continue for follow UOP and BMP Avoid nephrotoxins as possible. Continue Fosrenol and calcitriol Hypocalcemia will order calcium gluconate HD today will try to remove 2 liters but may be difficult with low blood pressure. (2) Respiratory failure ICD Codes: J96.90 - Respiratory failure, unspecified, unspecified whether with hypoxia or hypercapnia Plan: Intubated weaning per CC (Adeola Velez) Problem List: (1) DAVID (acute kidney injury) ICD Codes: N17.9 - Acute kidney failure, unspecified Plan: Acute kidney injury most likely related to prerenal vs acute tubular necrosis, either from the infection or related to his cardiac status and cardiac arrest. Renal US unable to visualize kidneys or bladder? UOP continues to be minimal Potassium WNL Plan Renal dose antibiotics Continue for follow UOP and BMP Avoid nephrotoxins as possible. Continue Fosrenol and calcitriol Hypocalcemia will order calcium gluconate HD today will try to remove 2 liters but may be difficult with low blood pressure. Patient seen and examined, agree with above. BP is on lower side, off pressors. HD now and remove fluid. If BP drop, will consider CVVHD. D/W the at bed side. (2) Respiratory failure ICD Codes: J96.90 - Respiratory failure, unspecified, unspecified whether with hypoxia or hypercapnia Plan: Intubated weaning per CC (America Vela MD) Adeola Velez Dec 08, 2017 16:50 America Vela MD Dec 08, 2017 18:49
[2017-12-08] MEDS: GENTAMICIN SULFATE 20 MG/2 ML VIAL OTHER PRN (16:51)
[2017-12-08] MEDS: SODIUM CHLORIDE 0.9% FLUSH 10 ML FLUSH IV FLUSH PRN (16:51)
[2017-12-08] MEDS ORDERED: CEFTOLOZANE-TAZOBACTAM INJ 750 MG in SODIUM CHLORIDE 0.9% INJ 100 ML IV ONE (17:00)
[2017-12-08] MEDS: EPOETIN ALFA 10,000 UNITS/ML VIAL IV PUSH PRN (17:28)
[2017-12-08] MEDS ORDERED: CALCIUM GLUCONATE INJ 1 GM in SODIUM CHLORIDE 0.9% INJ 90 ML IV ONE (18:00)
[2017-12-08] MEDS: LEVOFLOXACIN 250 MG PREMIX INJ 50 ML IV SCH (18:31)
[2017-12-08] MEDS ORDERED: SODIUM CHLOR 0.9% 1000 ML INJ 1,000 ML IV SCH (20:30)
[2017-12-08] MEDS ORDERED: TERBUTALINE INJ 1 MG/ML AMP SQ PRN (21:00)
[2017-12-08] MEDS: NOREPINEPHRINE-DEXTROSE DRIP 250 ML IV PRN (21:02)
[2017-12-08] MEDS: CEFTOLOZANE-TAZOBACTAM INJ 150 MG in SODIUM CHLORIDE 0.9% INJ 100 ML IV SCH (22:59)
[2017-12-08] MEDS: CHLORHEXIDINE GLUCONATE 2 % 1 PACK (2 CLOTHS) TOP SCH (23:12)
[2017-12-09] VITALS (16 sets, daily range): BP systolic 93–123; BP diastolic 53–61; PULSE 79–125; RESP 20; TEMP 97.3–98; O2SAT 98–100
[2017-12-09] MEDS: RESP: ALBUTEROL 2.5 MG/IPRATROPIUM 0.5 MG NEB (SCH) NEB ×4 (03:15→20:28)
[2017-12-09 03:26] LABS: AUTOMATED NEUTROPHIL # 28.3 TH/MM3 (1.8-7.7); BASOPHIL % 0.1 % (0.0-2.0); HEMATOCRIT 25.6 % (39.0-51.0); LYMPHOCYTE # 0.9 TH/MM3 (1.0-4.8); MEAN CORPUSCULAR HEMOGLOBIN 26.5 PG (27.0-34.0); MEAN CORPUSCULAR HGB CONC 31.2 % (32.0-36.0); MONO % 2.7 % (0.0-8.0); MONOCYTE # 0.8 TH/MM3 (0-0.9); NEUT % 94.2 % (16.0-70.0); PLATELET COUNT 52 TH/MM3 (150-450); RED BLOOD COUNT 3.01 MIL/MM3 (4.50-5.90); RED CELL DISTRIBUTION WIDTH 20.1 % (11.6-17.2)
[2017-12-09 03:55] LABS: ALBUMIN 2.7 GM/DL (3.4-5.0); BICARBONATE 20.1 MEQ/L (21.0-32.0); CALCIUM 6.2 MG/DL (8.5-10.1); CREATININE 3.66 MG/DL (0.60-1.30)
[2017-12-09 03:59] LABS: TOTAL PROTEIN 4.9 GM/DL (6.4-8.2)
[2017-12-09 04:19] LABS: CALCIUM-PROTEIN CORRECTED 7.2 MG/DL (8.5-10.1)
[2017-12-09] MEDS: INSULIN ASPART SUPPLEMENTAL SCALE SQ SCH ×6 (04:42→20:00)
--- NOTE | 2017-12-09 04:50 | RADRPT ---
EXAM DATE/TIME: 12/09/2017 03:05 [facility] COMPARISON: CHEST SINGLE AP, December 08, 2017, 10:25. INDICATIONS : Shortness of breath, possible pulmonary disease. MEDICAL HISTORY : Cardiovascular disease. Hypertension Chronic obstructive pulmonary disease. CHF Diabetes SURGICAL HISTORY : None. ENCOUNTER: Subsequent ACUITY: 1 month PAIN SCORE: Non-responsive. LOCATION: Bilateral chest FINDINGS: A single view of the chest demonstrates right-sided chest tube and tiny apical pneumothorax. Improvin g bibasilar densities greater left lower lobe. Subcutaneous emphysema. Endotracheal tube and bilatera l jugular lines are stable position. Osseous structures are intact. CONCLUSION: Tiny right apical pneumothorax. Nikunj Oneil MD on December 09, 2017 at 4:48 Board Certified Radiologist. This report was verified electronically.
[2017-12-09] MEDS: CEFTOLOZANE-TAZOBACTAM INJ 150 MG in SODIUM CHLORIDE 0.9% INJ 100 ML IV SCH ×2 (05:53→15:17)
[2017-12-09 08:34] LABS: BANDS 2 % (0-6); CORRECTED NUCLEATED RBC 1 /100 WBC (0-0); LYMPHOCYTES 1 % (9-44); MONOCYTES 3 % (0-8); NEUTROPHIL # MANUAL DIFF 28.8 TH/MM3 (1.8-7.7); NUCLEATED RED BLOOD CELL 1 (0-0); POLYS (SEG NEUTROPHILS) 94 % (16-70)
[2017-12-09] MEDS: DOCUSATE SODIUM 50 MG/SENNA 8.6 MG TAB PO SCH ×2 (08:56→20:06)
[2017-12-09] MEDS: INSULIN DETEMIR 100 UNITS/ML VIAL SQ SCH ×2 (08:56→20:07)
[2017-12-09] MEDS: CALCITRIOL 0.25 MCG CAP PO SCH (08:56)
[2017-12-09] MEDS: BUDESONIDE-FORMOTEROL 160/4.5 MCG INHALER INH SCH ×2 (08:57→20:06)
[2017-12-09] MEDS: SODIUM CHLORIDE 0.9% FLUSH 10 ML FLUSH IV FLUSH SCH ×2 (08:57→20:06)
[2017-12-09] MEDS: LANTHANUM CARBONATE 500 MG CHEWABLE TABLET CHEW SCH ×3 (08:57→18:00)
[2017-12-09] MEDS: FAMOTIDINE 20 MG TAB PO SCH ×2 (08:57→20:06)
[2017-12-09] MEDS: NOREPINEPHRINE-DEXTROSE DRIP 250 ML IV PRN (08:58)
[2017-12-09] MEDS: HEPARIN SODIUM - SQ 10,000 UNITS/ML VIAL SQ SCH ×3 (08:59→20:15)
[2017-12-09] MEDS: CHLORHEXIDINE 0.12% (ORAL KIT) 15 ML CUP MT SCH ×2 (08:59→20:05)
--- NOTE | 2017-12-09 09:40 | HHI.CCPN ---
Subjective Remarks/Hospital Course This is a 77-year-old male with a medical history significant for COPD, CHF, A. fib, diabetes, that presented to emergency department from [facility] for evaluation of worsening shortness of breath over the last 3 days. The patient was been given Solu-Medrol 125 mg and 2 albuterol treatments enroute to ED. Upon presentation to the ED the patient was on a nonrebreather. He was tachypneic and tachycardic. Patient's medical history significant for MRSA pneumonia previously admitted on 10/27/16 for approximately 12 days at [facility]. The patient is normally on 2.5 L/m nasal cannula O2 home dependency, and he lives with ( normally) a PCO2 in the 80s according to his . Patient was then discharged to [facility], and then transferred to [facility] for rehabilitation. He has been on an unknown antibiotic per the family and steroids for the last 3 days. Laboratory and imaging studies were performed with noted elevation in CO2 The patient was given empiric antibiotics in the ED and placed on BiPAP. Critical care medicine was consulted. Subjective: 11/15: Patient maintained on BiPAP throughout the night O2 saturations 97-98% on FiO2 of 0.40. Hemodynamically stable. Attempts made to wean patient to nasal cannula this a.m. unsuccessful, patient's O2 saturation in the 70s, patient placed back on BiPAP. Chest x-ray pending WBC count significantly diminished, leukocytosis resolved. Patient extremely anxious, Precedex infusion initiated. 11/16: Late entry note. Patient seen 10 AM. Overnight the patient converted to A. fib RVR, despite being on Cardizem 4 times a day and metoprolol twice a day- home medications, the patient received IV Cardizem followed by amiodarone infusion. Per report the patient became hypotensive, Cardizem discontinued. Amiodarone continued. Early this a.m. patient was resting comfortably A. fib rate controlled rate. The patient suddenly converted to A. fib RVR heart rate 150s-160s, acute hypoxemic respiratory failure, requiring intubation. The patient was intubated uneventfully and continues on amiodarone at 0.5 mg/hour, rate now controlled in conjunction with sedation. Cardiology consulted, his drama professor is Dr. Ryees X-ray revealed lung consolidation improved, chest x- ray clear. Plan for CPAP trials in a.m.. 11/17: No acute events overnight. Patient had 1 short 8 beat run of V. tach last evening was self resolution, electrolytes within normal limits. The patient continues on amiodarone 0.5 mg/hr. CPAP trials initiated this a.m.. Tube feeds initiated at trickle feeds. Patient converted to sinus rhythm at 2 AM. 11/18 Patient remains sedated and intubated. Afebrile. 11/19 Patient was extubated yesterday however last night he was noted to choke on water provided by the family. Stat ABG demonstrated acute hypercapnic respiratory failure and was emergently intubated. Currently sedated and intubated. 11/20 Patient remains intubated on Fentanyl drip however he si awake and alert. Afebrile. 11/21 Patient is awake and alert placed on CPAP with PS:15, PEEP:5. Afebrile. 11/22 Patient remains intubated , did not tolerate CPAP trials yesterday as he became tachycardic and hypertensive. On no sedation awake and alert. 11/23 No events overnight, off sedation. 11/24: Resting comfortably on mechanical ventilation currently. Daily C Pap trials ongoing. 11/25: Sedated with Precedex, orally intubated on mechanical ventilation. Daily C Pap trials 11/26: Sedated with Precedex, orally intubated on mechanical ventilation. Got tachypneic with CPAP trial today hence placed back on PRVC. Spiked a fever, garcia cultures ordered. Went into A. fib with RVR subsequently for which being initiated on amiodarone bolus followed by drip and Lopressor 5 mg IV every 6 as needed for 11/27: This morning patient developed bradycardia followed by asystole for which she had 3 minutes CPR with ACLS protocol with return of spontaneous circulation. Post code chest x-ray revealed moderate to large right pneumothorax for which a right pigtail catheter was placed by me however despite airleak patient continue have moderate to large pneumothorax hence a second right sided 28 Canadian chest tube was placed to -40 cm water pressure. Air leaks 1+ in both pigtail catheter and chest tube. Patient remains in a flutter currently. Dr. reyes evaluated patient as well following cardiac arrest. 11/28: Sedated, arousable, orally intubated on mechanical ventilation. Worsening renal function noted. MDR Pseudomonas in sputum. Right sided chest tube/ pigtail catheter with 1+ air leak in both. Subcutaneous emphysema noted over right side of face neck and right upper extremity. On 50% FiO2, PEEP +5. Poor urine output for which 500 cc and is bolus given earlier. Treated for hyperkalemia with Kayexalate PO, glucose insulin, calcium IV. 4/2: Remains sedated, arousable, orally intubated on mechanical ventilation. A. fib with RVR this morning for which she was loaded with amiodarone and initiated on amiodarone drip. Spiking fever 103.5. ID adjusting antibiotics. Stool for C. difficile ordered as he had some diarrhea today though received Kayexalate yesterday for hyperkalemia. Pigtail catheter on the right side appeared to be dislodged hence this was removed. 28 Canadian chest tube in right pleural cavity repositioned. 11/30: Late entry note , patient seen at 12 noon. Creatinine continues to trend upward.Sedated but easily arousable. 12/01: Patient lightly sedated, following commands this a.m.. Creatinine noted increased, possible dialysis consideration for tomorrow. Patient to be diuresed today. CPAP trial initiated failed after 5 minutes, repeat this afternoon. 12/02: Patient placed on Lasix infusion throughout the night . No renal improvement,creatinine worsened today , plan for Vas-Cath placement and IHD today. This extensive discussion with patient and plans for tracheostomy and PEG tube placement secondary to failure to wean. 12/03: Late entry note, patient seen at 11 am. Patient scheduled for PEG placement today by Dr. Iglesias. Patient continues to fail CPAP trials. Plan for tracheostomy in the near future 12/04: Late entry note . Patient seen earlier this am. Overnight the patient became hypoglycemic, secondary to n.p.o. status, post PEG placement. D10 was initiated at 30 cc/hr. Tube feeds reinitiated Jevity 1.5, 24 hours post PEG tube placed, D10 discontinued. Patient remains on fentanyl at 100 mics/hour, lightly sedated. Patient denies pain answering by nodding head to yes and no questions. Tracheostomy planned for Wednesday12/06/[address] Calderon. 12/05: Remains intubated sedated with 50 mcg of fentanyl. On attempted CPAP trial patient remained dyspneic. Significant neuromuscular weakness persist. Chest x-ray shows small right apical pneumothorax. Tentatively plan for tracheostomy tomorrow. Dr. Calderon has already been consulted 12/06 Patient remains intubated for possible trach today. On Levophed 12 mics. Afebrile. 12/07 No events overnight. Trach was placed on hold yesterday as patient was on Levophed. He is down to 5 mics today. Afebrile. 12/08 Patient remains intubated on no sedation. CT brain this morning showed no acute process. Off Levophed. 12/09 Patient was placed back on Levophed 6 mics. Afebrile. Remains intubated on no sedation. Objective Vital Signs Date Time Temp Pulse Resp B/P (MAP) Pulse Ox O2 Delivery O2 Flow Rate FiO2 12/09/17 08:58 87 101/55 12/09/17 07:35 100 35 12/09/17 04:00 98.0 20 Intake and Output 12/09/17 12/09/17 12/10/17 08:00 16:00 00:00 Intake Total 821 ml Output Total 35 ml Balance 786 ml Result Diagram: 12/09/17 0310 12/09/17 0310 Other Results Laboratory Tests Test 12/08/17 10:31 12/09/17 03:10 White Blood Count 32.6 TH/MM3 30.0 TH/MM3 Red Blood Count 3.50 MIL/MM3 3.01 MIL/MM3 Hemoglobin 9.2 GM/DL 8.0 GM/DL Hematocrit 30.1 % 25.6 % Mean Corpuscular Volume 86.2 FL 85.0 FL Mean Corpuscular Hemoglobin 26.4 PG 26.5 PG Mean Corpuscular Hemoglobin Concent 30.6 % 31.2 % Red Cell Distribution Width 19.8 % 20.1 % Platelet Count 70 TH/MM3 52 TH/MM3 Mean Platelet Volume 9.4 FL 10.0 FL Neutrophils (%) (Auto) 92.7 % 94.2 % Lymphocytes (%) (Auto) 3.9 % 3.0 % Monocytes (%) (Auto) 3.2 % 2.7 % Eosinophils (%) (Auto) 0.0 % 0.0 % Basophils (%) (Auto) 0.2 % 0.1 % Neutrophils # (Auto) 30.2 TH/MM3 28.3 TH/MM3 Lymphocytes # (Auto) 1.3 TH/MM3 0.9 TH/MM3 Monocytes # (Auto) 1.0 TH/MM3 0.8 TH/MM3 Eosinophils # (Auto) 0.0 TH/MM3 0.0 TH/MM3 Basophils # (Auto) 0.1 TH/MM3 0.0 TH/MM3 CBC Comment AUTO DIFF AUTO DIFF Differential Total Cells Counted 100 100 Neutrophils % (Manual) 94 % 94 % Lymphocytes % 1 % 1 % Monocytes % 5 % 3 % Neutrophils # (Manual) 30.6 TH/MM3 28.8 TH/MM3 Differential Comment FINAL DIFF MANUAL FINAL DIFF MANUAL Platelet Estimate LOW LOW Platelet Morphology Comment NORMAL NORMAL Ovalocytes 1+ Red Cell Morphology Comment Blood Urea Nitrogen 108 MG/DL 98 MG/DL Creatinine 4.40 MG/DL 3.66 MG/DL Random Glucose 155 MG/DL 225 MG/DL Total Protein 5.0 GM/DL 4.9 GM/DL Albumin 2.1 GM/DL 2.7 GM/DL Calcium Level 5.9 MG/DL 6.2 MG/DL Alkaline Phosphatase 305 U/L 239 U/L Aspartate Amino Transf (AST/SGOT) 153 U/L 196 U/L Alanine Aminotransferase (ALT/SGPT) 100 U/L 124 U/L Total Bilirubin 1.0 MG/DL 2.0 MG/DL Sodium Level 137 MEQ/L 139 MEQ/L Potassium Level 4.9 MEQ/L 4.4 MEQ/L Chloride Level 98 MEQ/L 100 MEQ/L Carbon Dioxide Level 21.1 MEQ/L 20.1 MEQ/L Anion Gap 18 MEQ/L 19 MEQ/L Estimat Glomerular Filtration Rate 13 ML/MIN 16 ML/MIN Protein Corrected Calcium 6.8 MG/DL 7.2 MG/DL Band Neutrophils % 2 % Nucleated Red Blood Cells 1 /100 WBC Imaging Last Impressions Chest X-Ray 12/09/17 0600 Signed Impressions: Service Date/Time: November 03:05 - CONCLUSION: Tiny right apical pneumothorax. Nikunj Oneil MD Head CT 12/08/17 0000 Signed Impressions: Service Date/Time: Friday, December 08, 2017 08:25 - CONCLUSION: Negative for acute process. Torin Dennison MD FACR Liver Ultrasound 12/06/17 0000 Signed Impressions: Service Date/Time: Wednesday, December 06, 2017 11:19 - CONCLUSION: 1. Nondiagnostic right upper quadrant ultrasound examination. Anil Aldana MD Catheter Placement X-Ray 12/02/17 0000 Signed Impressions: Service Date/Time: November 10:47 - CONCLUSION: Uncomplicated right internal jugular Vas-Cath placement as above. incidental note is made of subcutaneous emphysema within the chest wall and neck Con Dennison MD Lower Extremity Ultrasound 11/29/17 0000 Signed Impressions: Service Date/Time: Wednesday, November 29, 2017 22:02 - CONCLUSION: Normal examination. Abdiel Mcintyre MD Renal Ultrasound 11/28/17 0000 Signed Impressions: Service Date/Time: Tuesday, November 28, 2017 20:30 - CONCLUSION: Nondiagnostic exam. Rashad Bose MD Objective Remarks GENERAL: Patient is 77 yo intubated awake nodding yes and no to questions, awake alert SKIN: Warm and dry. HEAD: Normocephalic. Mild subcutaneous emphysema involving right side of face neck shoulder and arm. EYES: No scleral icterus. No injection or drainage. NECK: Supple, trachea midline. No JVD or lymphadenopathy. CARDIOVASCULAR: S1-S2 irregularly irregular, no gallop or murmur. RESPIRATORY: Orally intubated on mechanical ventilation, air entry decreased bilaterally, scattered rhonchi bilaterally, no wheezing. Right sided chest tube with 1+ airleak. Subcutaneous emphysema or right chest wall, neck, right side of face and right upper extremity. GASTROINTESTINAL: Abdomen soft, non-tender, nondistended. MUSCULOSKELETAL: Bilateral peripheral edema +2 Neuro: Awake, orally intubated, on mechanical ventilation, follows simple commands intermittently A/P Problem List: (1) A-fib ICD Code: I48.91 - Unspecified atrial fibrillation (2) CHF (congestive heart failure) ICD Code: I50.9 - Heart failure, unspecified Status: Chronic (3) HTN (hypertension) ICD Code: I10 - Essential (primary) hypertension Status: Chronic (4) ADRIAN (obstructive sleep apnea) ICD Code: G47.33 - Obstructive sleep apnea (adult) (pediatric) Status: Chronic (5) MRSA pneumonia ICD Code: J15.212 - Pneumonia due to Methicillin resistant Staphylococcus aureus Status: Acute (6) Diabetes mellitus type 2, insulin dependent ICD Code: E11.9 - Type 2 diabetes mellitus without complications; Z79.4 - termite helper (current) use of insulin Status: Chronic (7) COPD (chronic obstructive pulmonary disease) ICD Code: J44.9 - Chronic obstructive pulmonary disease, unspecified Status: Acute (8) Respiratory distress ICD Code: R06.03 - Acute respiratory distress Status: Acute (9) Leukocytosis ICD Code: D72.829 - Elevated white blood cell count, unspecified Status: Acute (10) Lung consolidation ICD Code: J18.1 - Lobar pneumonia, unspecified organism Status: Acute (11) Anxiety ICD Code: F41.9 - Anxiety disorder, unspecified Status: Chronic (12) Failure to wean from mechanical ventilation ICD Code: Z99.11 - Dependence on respirator [ventilator] status Assessment and Plan Plan by systems: Neurologic: Possible Anoxic encephalopathy following cardiac arrest Anxiety disorder Off sedation, monitor neuro status, Neuro checks per ICU protocol EEG: Mild- mod encephalopathy. Neuro is following- Dr. Anne. CT brain 12/08 no acute process Hold gabapentin 300mmg q HS home med Respiratory: Acute respiratory failure on mechanical ventilation- extubated and reintubated night of 11/18 after he was noted to choke on water provided by family. COPD exacerbation Pneumonia-MRSA, MDR Pseudomonas Right sided pneumothorax following CPR status post pigtail catheter/chest tube placement 11/27 Obstructive sleep apnea Home O2 dependency Continue with vent support keep sats >92% Bronchodilators, HC 50mg IV Q12 Pulmonology - Dr Price, Right sided chest tube in place. Continue 28 F right chest tube to -40 cm water pressure with underwater seal. 12/02 general surgery consult for tracheostomy-plan for tracheostomy when stable CXR today: Tiny ? right apical PTX Cardiovascular: A. fib RVR Cardiac arrest - asystole, status post CPR 11/27 History of CHF CAD Wean off Levophed keep MAP>65mmHg. Lactic acid:2.2 Atorvastatin 80 daily on hold for elevated LFT's Cardiology - Dr. Reyes Echo showed EF 65-70% Renal: DAVID Monitor renal function, electrolytes replacement as needed Nephrology Dr. Ragland. 12/02 Vas-Cath placed for initiation of IHD . HD per renal FEN/GI: Elevated LFT's GERD Monitor LFT's, US liver on 12/06: non diagnostic study Check US liver today Hepatitis profile is negative On tube feeds On Nepro @40cc/hr. Pepcid for GI prophylaxis Replete electrolytes per ICU 12/03 PEG tube placement ID: Pneumonia MRSA, MDR Pseudomonas Leukocytosis ID following- Antibiotics per ID (on Micafungin, Zerbaxa and Levaquin added yesterday) Check BC x 2sets today Stool for C. difficile negative on 11/29 and 12/06 Pertinent cultures 12/06 Sputum cx: Pseudomonas MDR 11/16 sputum cultures- Kleb pneumonia 11/26 sputum cultures growing multidrug resistant Pseudomonas/MRSA 11/28 urine culture growing yeast 11/26 blood culture neg Heme Monitor CBC Endocrine: Glucose monitoring per ICU protocol -- SSI(high scale) Levemir 5u Q12 and taper IV steroids Prophylaxis: GI Prophylaxis Famotidine BID DVT Prophylaxis -- SCDs Held home dose Eliquis 5 mg BID on 11/27 in view of anticipated procedures Heparin 5000 units subcutaneously every 8 hourly for DVT prophylaxis Lines: Left IJ central line placed 11/28, d/c central line and place peripheral IV's Palliative care is following Level 3 Problem Qualifiers (1) COPD (chronic obstructive pulmonary disease): Qualified Codes: J44.9 - Chronic obstructive pulmonary disease, unspecified (2) Leukocytosis: Qualified Codes: D72.829 - Elevated white blood cell count, unspecified Carmen Richard MD Dec 09, 2017 09:40
--- NOTE | 2017-12-09 11:17 | HHI.HCPN ---
Reason for visit a. To assist with evaluation and management of symptoms including: Dyspnea, pain, encephalopathy b. To assist medical decision maker(s) with: better understanding of current medical conditions; weighing benefits/burdens of medical treatment options; making medical treatment decisions. Subjective/Interval History Patient seen to follow-up on symptom management and goals of care. Dialysis attempted today but terminated due to hypotension, in spite of an increase in norepinephrine now to 6 mcg/min. All 4 extremities show mottling. 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 He is awake on the ventilator, unsedated, eyes open. He will occasionally make eye contact but does not respond to commands, nod his head to yes/no questions or otherwise interact with the examiner. The RN has noted the same findings throughout his shift. Sputum culture was positive for multidrug-resistant pseudomonas aeruginosa, culture showing sensitivity only to gentamicin and tobramycin. Previous sputum cultures show both pseudomonas aeruginosa and staph aureus MRSA, both multidrug- resistant. Infectious disease is following and has prescribed Zerbaxa, Levaquin and micafungin. Complicating his respiratory status is a right pneumothorax and right chest tube with continued air leak, which occurred after he sustained cardiac arrest and required CPR. It is suspected that he aspirated at that time. Chest tube suction to -40 cm of water pressure. He continues to have subcutaneous emphysema. He last underwent spontaneous breathing trials 12/05 which lasted less than 1 minute and required resumed ventilator support due to tachycardia. Vent settings remain AC/550/20/5PEEP/35% . At baseline he is oxygen dependent with obstructive sleep apnea. Requiring dialysis due to elevated BUN and creatinine. Creatinine on admission was 1.1, today 3.66, BUN 98, baseline at admission was 29 mg/dL. Last dialysis 12/07 with removal of 1000 mL. Today he developed hypotension after removing 100 mL and dialysis was stopped. Albumin has improved to 2.7, however he remains grossly edematous with pitting, weeping edema and lower leg blistering. Urine culture preliminarily shows yeast with identification to follow. He is preemptively being treated with micafungin. Transaminases are trending upward, however he has been receiving Diflucan, which has a side effect of hepatotoxicity. Last dose of Diflucan was 12/01. Micafungin was initiated 12/08. Today's labs show total bilirubin 2.0, AST 196, ALT 124, alkaline phosphatase 239. Liver ultrasound done 12/06 was nondiagnostic secondary to gas and multiple tubes. The study notes that none of the structures were visualized. Liver ultrasound has been reordered today for further evaluation. . Family/friend interactions Spoke with at bedside to update as to clinical status. She is very angry and frustrated that her is not doing better. She feels that the halfway caused his initial problem by giving him an Ativan for agitation, causing him to decline from a respiratory standpoint. She repeats that he got 3 medications for his heart at the same time on 11/27 that caused his heart to stop and that has been the cause of all the rest of his problems. We did discuss dialysis and increasing liver enzymes. During this discussion, patient was visited by Dr. Long, who clarified that the elevation in the liver enzymes could possibly be from the Diflucan that he was previously receiving and that he had been changed to micafungin, but the liver enzyme elevation could last for several days. She has little understanding of his multisystem organ failure and is fixated on vent weaning, wondering why he is not on CPAP trials every day. This was discussed with the nurse, Bernardo, who explained to her that CPAP was attempted daily when the physician came in for his initial assessment but the patient remains apneic and requires being returned to ventilator support immediately. We discussed the need for blood pressure support to maintain organ perfusion and the risks associated with that, as the patient is showing peripheral mottling. She continued to reiterate again all of her previous complaints regarding his decline. . Advance Directives Living Will: Never completed Health Care Surrogate: Never completed Durable Power of Deputy Attorney General: Never completed Advance Directive Specifics Health Care Surrogate(s): Never completed. is healthcare proxy supported by son who would be the next tier hierarchy of [place] statutes. . Documented care wishes: No living will completed. Objective Vital Signs Date Time Temp Pulse Resp B/P (MAP) Pulse Ox O2 Delivery O2 Flow Rate FiO2 12/09/17 08:58 87 101/55 12/09/17 07:35 100 35 12/09/17 06:00 91 12/09/17 04:00 98.0 91 20 98/55 (69) 100 12/09/17 04:00 91 12/09/17 04:00 35 12/09/17 03:18 100 35 4/12/18 02:00 87 12/09/17 00:00 97.9 125 20 94/53 (67) 100 12/09/17 00:00 35 12/09/17 00:00 125 12/08/17 23:28 100 35 12/08/17 22:51 125 73/46 12/08/17 22:18 123 75/50 12/08/17 22:00 128 12/08/17 21:46 125 74/50 12/08/17 21:35 120 83/45 12/08/17 21:02 121 93/39 12/08/17 20:00 35 12/08/17 20:00 97.8 121 20 84/47 (59) 100 12/08/17 20:00 121 12/08/17 19:40 97 35 12/08/17 18:00 122 12/08/17 16:00 84 12/08/17 16:00 97.9 84 20 95/52 (66) 99 12/08/17 16:00 35 12/08/17 14:41 97 35 12/08/17 14:00 86 12/08/17 12:00 99.0 89 20 81/53 (62) 97 12/08/17 12:00 89 12/08/17 12:00 35 12/08/17 11:04 99 35 Intake & Output 12/09/17 12/09/17 07:00 19:00 Intake Total 1971 ml 100 ml Output Total 135 ml Balance 1836 ml 100 ml IV Total 1541 ml 100 ml Tube Feeding 400 ml Other 30 ml Output Urine Total 5 ml Chest Tube Drainage Total 30 ml Hemodialysis 100 ml # Bowel Movements 2 Physical Exam CONSTITUTIONAL/GENERAL: This is an adequately nourished patient, in no apparent distress. TUBES/LINES/DRAINS: ETT, left jugular central line, right IJ Vas-Cath, Haynes SKIN: Multiple areas of ecchymosis with blistering and weeping edema on lower extremities. HEAD: Atraumatic. Normocephalic. EYES: Pupils equal and round and reactive. No scleral icterus. No injection or drainage. Fundi not examined. Eyelid swelling improving. CARDIOVASCULAR: Irregular rhythm, controlled rate, no rub murmur or gallop. No JVD. RESPIRATORY/CHEST: Mechanically ventilated, symmetric chest rise with decreased air entry, rare wheeze, extensive crepitus. Chest tube with 1+ air leak, -40 suction. GASTROINTESTINAL: Abdomen soft, nondistended, obese. Bowel sounds hypoactive. PEG intact. GENITOURINARY: Without palpable bladder distension. Haynes catheter in place. MUSCULOSKELETAL: Extremities with diffuse mottling. 3+ dependent, weeping edema. NEUROLOGICAL: Intubated, unsedated, not following commands. PSYCHIATRIC: Calm, appropriate. . Diagnostic Tests Laboratory Laboratory Tests Test 12/06/17 10:40 12/06/17 11:00 12/06/17 11:04 12/06/17 17:30 Stool C. difficile Toxin (PCR) NEGATIVE (NEGATIVE) Stl C. difficile Toxin Epiderm 027 PRESUMPTIVE NEGATIVE Ammonia 21 MCMOL/L (11-32) Lactic Acid Level 3.6 mmol/L (0.4-2.0) Blood Gas Puncture Site RT RADIAL Blood Gas Patient Temperature 98.6 Blood Gas HCO3 22 mmol/L (22-26) Blood Gas Base Excess -2.2 mmol/L (-2-2) Blood Gas Oxygen Saturation 91 % (90-100) Arterial Blood pH 7.36 (7.380-7.420) Arterial Blood Partial Pressure CO2 41 mmHg (38-42) Arterial Blood Partial Pressure O2 72 mmHg (61-120) Arterial Blood Oxygen Content 11.9 Vol % (12.0-20.0) Arterial Blood Carboxyhemoglobin 0.8 % (0-4) Arterial Blood Methemoglobin 1.2 % (0-2) Blood Gas Hemoglobin 9.2 G/DL (12.0-16.0) Oxygen Delivery Device VENTILATOR Blood Gas Ventilator Setting 550/20/5PEEP Blood Gas Inspired Oxygen 35 % Test 12/06/17 22:05 12/07/17 04:30 12/07/17 14:16 12/08/17 10:31 Potassium Level 4.2 MEQ/L (3.5-5.1) 4.1 MEQ/L (3.5-5.1) 4.9 MEQ/L (3.5-5.1) White Blood Count 26.2 TH/MM3 (4.0-11.0) 32.6 TH/MM3 (4.0-11.0) Red Blood Count 3.26 MIL/MM3 (4.50-5.90) 3.50 MIL/MM3 (4.50-5.90) Hemoglobin 8.7 GM/DL (13.0-17.0) 9.2 GM/DL (13.0-17.0) Hematocrit 27.2 % (39.0-51.0) 30.1 % (39.0-51.0) Mean Corpuscular Volume 83.5 FL (80.0-100.0) 86.2 FL (80.0-100.0) Mean Corpuscular Hemoglobin 26.7 PG (27.0-34.0) 26.4 PG (27.0-34.0) Mean Corpuscular Hemoglobin Concent 32.0 % (32.0-36.0) 30.6 % (32.0-36.0) Red Cell Distribution Width 19.3 % (11.6-17.2) 19.8 % (11.6-17.2) Platelet Count 91 TH/MM3 (150-450) 70 TH/MM3 (150-450) Mean Platelet Volume 9.2 FL (7.0-11.0) 9.4 FL (7.0-11.0) Neutrophils (%) (Auto) 93.3 % (16.0-70.0) 92.7 % (16.0-70.0) Lymphocytes (%) (Auto) 2.7 % (9.0-44.0) 3.9 % (9.0-44.0) Monocytes (%) (Auto) 3.8 % (0.0-8.0) 3.2 % (0.0-8.0) Eosinophils (%) (Auto) 0.0 % (0.0-4.0) 0.0 % (0.0-4.0) Basophils (%) (Auto) 0.2 % (0.0-2.0) 0.2 % (0.0-2.0) Neutrophils # (Auto) 24.5 TH/MM3 (1.8-7.7) 30.2 TH/MM3 (1.8-7.7) Lymphocytes # (Auto) 0.7 TH/MM3 (1.0-4.8) 1.3 TH/MM3 (1.0-4.8) Monocytes # (Auto) 1.0 TH/MM3 (0-0.9) 1.0 TH/MM3 (0-0.9) Eosinophils # (Auto) 0.0 TH/MM3 (0-0.4) 0.0 TH/MM3 (0-0.4) Basophils # (Auto) 0.1 TH/MM3 (0-0.2) 0.1 TH/MM3 (0-0.2) CBC Comment AUTO DIFF AUTO DIFF Differential Comment AUTO DIFF CONFIRMED FINAL DIFF MANUAL Platelet Estimate LOW (NORMAL) LOW (NORMAL) Platelet Morphology Comment NORMAL (NORMAL) NORMAL (NORMAL) Ovalocytes 1+ (NORMAL) 1+ (NORMAL) Blood Urea Nitrogen 86 MG/DL (7-18) 108 MG/DL (7-18) Creatinine 3.68 MG/DL (0.60-1.30) 4.40 MG/DL (0.60-1.30) Random Glucose 183 MG/DL (74-106) 155 MG/DL (74-106) Total Protein 5.1 GM/DL (6.4-8.2) 5.0 GM/DL (6.4-8.2) Albumin 2.5 GM/DL (3.4-5.0) 2.1 GM/DL (3.4-5.0) Calcium Level 5.9 MG/DL (8.5-10.1) 5.9 MG/DL (8.5-10.1) Alkaline Phosphatase 240 U/L (45-117) 305 U/L (45-117) Aspartate Amino Transf (AST/SGOT) 146 U/L (15-37) 153 U/L (15-37) Alanine Aminotransferase (ALT/SGPT) 101 U/L (12-78) 100 U/L (12-78) Total Bilirubin 1.0 MG/DL (0.2-1.0) 1.0 MG/DL (0.2-1.0) Sodium Level 140 MEQ/L (136-145) 137 MEQ/L (136-145) Chloride Level 99 MEQ/L (98-107) 98 MEQ/L (98-107) Carbon Dioxide Level 24.5 MEQ/L (21.0-32.0) 21.1 MEQ/L (21.0-32.0) Anion Gap 17 MEQ/L (5-15) 18 MEQ/L (5-15) Estimat Glomerular Filtration Rate 16 ML/MIN (>89) 13 ML/MIN (>89) Protein Corrected Calcium 6.8 MG/DL (8.5-10.1) 6.8 MG/DL (8.5-10.1) Lactic Acid Level 2.2 mmol/L (0.4-2.0) Differential Total Cells Counted 100 Neutrophils % (Manual) 94 % (16-70) Lymphocytes % 1 % (9-44) Monocytes % 5 % (0-8) Neutrophils # (Manual) 30.6 TH/MM3 (1.8-7.7) Red Cell Morphology Comment (NORMAL) Test 12/09/17 03:10 White Blood Count 30.0 TH/MM3 (4.0-11.0) Red Blood Count 3.01 MIL/MM3 (4.50-5.90) Hemoglobin 8.0 GM/DL (13.0-17.0) Hematocrit 25.6 % (39.0-51.0) Mean Corpuscular Volume 85.0 FL (80.0-100.0) Mean Corpuscular Hemoglobin 26.5 PG (27.0-34.0) Mean Corpuscular Hemoglobin Concent 31.2 % (32.0-36.0) Red Cell Distribution Width 20.1 % (11.6-17.2) Platelet Count 52 TH/MM3 (150-450) Mean Platelet Volume 10.0 FL (7.0-11.0) Neutrophils (%) (Auto) 94.2 % (16.0-70.0) Lymphocytes (%) (Auto) 3.0 % (9.0-44.0) Monocytes (%) (Auto) 2.7 % (0.0-8.0) Eosinophils (%) (Auto) 0.0 % (0.0-4.0) Basophils (%) (Auto) 0.1 % (0.0-2.0) Neutrophils # (Auto) 28.3 TH/MM3 (1.8-7.7) Lymphocytes # (Auto) 0.9 TH/MM3 (1.0-4.8) Monocytes # (Auto) 0.8 TH/MM3 (0-0.9) Eosinophils # (Auto) 0.0 TH/MM3 (0-0.4) Basophils # (Auto) 0.0 TH/MM3 (0-0.2) CBC Comment AUTO DIFF Differential Total Cells Counted 100 Neutrophils % (Manual) 94 % (16-70) Band Neutrophils % 2 % (0-6) Lymphocytes % 1 % (9-44) Monocytes % 3 % (0-8) Neutrophils # (Manual) 28.8 TH/MM3 (1.8-7.7) Nucleated Red Blood Cells 1 /100 WBC (0-0) Differential Comment FINAL DIFF MANUAL Platelet Estimate LOW (NORMAL) Platelet Morphology Comment NORMAL (NORMAL) Blood Urea Nitrogen 98 MG/DL (7-18) Creatinine 3.66 MG/DL (0.60-1.30) Random Glucose 225 MG/DL (74-106) Total Protein 4.9 GM/DL (6.4-8.2) Albumin 2.7 GM/DL (3.4-5.0) Calcium Level 6.2 MG/DL (8.5-10.1) Alkaline Phosphatase 239 U/L (45-117) Aspartate Amino Transf (AST/SGOT) 196 U/L (15-37) Alanine Aminotransferase (ALT/SGPT) 124 U/L (12-78) Total Bilirubin 2.0 MG/DL (0.2-1.0) Sodium Level 139 MEQ/L (136-145) Potassium Level 4.4 MEQ/L (3.5-5.1) Chloride Level 100 MEQ/L (98-107) Carbon Dioxide Level 20.1 MEQ/L (21.0-32.0) Anion Gap 19 MEQ/L (5-15) Estimat Glomerular Filtration Rate 16 ML/MIN (>89) Protein Corrected Calcium 7.2 MG/DL (8.5-10.1) Result Diagram: 12/09/1730912/09/170 Microbiology Microbiology Date/Time Source Procedure Growth Status 12/06/17 11:04 Blood Peripheral Aerobic Blood Culture - Preliminary NO GROWTH IN 2 DAYS Resulted 12/06/17 11:04 Blood Peripheral Anaerobic Blood Culture - Preliminary NO GROWTH IN 2 DAYS Resulted 12/06/17 11:00 Blood Peripheral Aerobic Blood Culture - Preliminary NO GROWTH IN 2 DAYS Resulted 12/06/17 11:00 Blood Peripheral Anaerobic Blood Culture - Preliminary NO GROWTH IN 2 DAYS Resulted 12/06/17 17:55 Sputum Endotracheal Gram Stain - Final Complete 12/06/17 17:55 Sputum Culture - Final Pseudomonas Aeruginosa Multi-Drug Resistant Complete 12/08/17 18:00 Urine Catheterized Urine Urine Culture Pending Received Imaging Last Impressions Chest X-Ray 12/09/17 0600 Signed Impressions: Service Date/Time: November 03:05 - CONCLUSION: Tiny right apical pneumothorax. Nikunj Oneil MD Head CT 12/08/17 0000 Signed Impressions: Service Date/Time: Friday, December 08, 2017 08:25 - CONCLUSION: Negative for acute process. Torin Dennison MD FACR Liver Ultrasound 12/06/17 0000 Signed Impressions: Service Date/Time: Wednesday, December 06, 2017 11:19 - CONCLUSION: 1. Nondiagnostic right upper quadrant ultrasound examination. Anil Aldana MD Catheter Placement X-Ray 12/02/17 0000 Signed Impressions: Service Date/Time: November 10:47 - CONCLUSION: Uncomplicated right internal jugular Vas-Cath placement as above. incidental note is made of subcutaneous emphysema within the chest wall and neck Con Dennison MD Lower Extremity Ultrasound 11/29/17 0000 Signed Impressions: Service Date/Time: Wednesday, November 29, 2017 22:02 - CONCLUSION: Normal examination. Abdiel Mcintyre MD Renal Ultrasound 11/28/17 0000 Signed Impressions: Service Date/Time: Tuesday, November 28, 2017 20:30 - CONCLUSION: Nondiagnostic exam. Rashad Bose MD Procedures 11/16: Endotracheal intubation 11/18: Endotracheal intubation 11/27: Right-sided pigtail catheter placement to the right pleural cavity 11/27: Right chest tube placement 12/02: Vas-Cath placement 12/03: PEG tube placement . Assessment and Plan Disease Oriented Problem List: (1) COPD (chronic obstructive pulmonary disease) (2) Respiratory distress (3) CHF (congestive heart failure) (4) ADRIAN (obstructive sleep apnea) (5) Diabetes mellitus type 2, insulin dependent Symptom Scale: (1) Dyspnea and respiratory abnormalities (2) Pain, generalized Pertinent Non-Medical Issues Psychosocial: He was born in [place] and moved to [place] many years ago. 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 Spiritual: [employer]. Legal: No legal issues noted. Ethical issues impacting care: No ethical issues noted. . Important Contacts : Cony Varela . Prognosis His prognosis is poor. He has significant lung compromise requiring a trilogy ventilator at home with multiple recurrent admissions for pulmonary compromise. He developed cardiac arrest requiring CPR with subsequent pneumothorax of the right lung. His renal indices continue to increase and he is now at risk of requiring dialysis. His transaminases are also rising, possible liver shock. His condition is frail and he is at significant risk for continued complications and decline. Code Status: Full Code Plan PLAN: Legal decision maker: Patient is not capacitated to make his decisions. His Cony is his legal proxy. Goals: Aggressive CODE STATUS: FULL CODE SYMPTOMS: * Dyspnea: Multifactorial to include chronic obstructive pulmonary disease, right pneumothorax, atrial fibrillation, diastolic heart failure, fluid volume excess. He is currently mechanically ventilated, failing CPAP trials secondary to apnea. Patient has chronic hypoxemia and hypercapnia with CO2 levels ranging 70-80 for which he uses a trilogy ventilator at home and follows with Dr Price, who states patient is comfortable at this baseline. It is likely that his respiratory drive has been affected by his baseline hypoxemia/ hypercapnia contributing to his apneic response during weaning trials. * Pain: Not answering questions today. Unable to assess pain level due to patient's unresponsiveness. At risk for pain from mechanical ventilation, invasive lines, bedbound status, weeping edema. Will need close clinical monitoring to evaluate for pain as patient is unable to make his needs known. * Encephalopathy: Multifactorial to include recent sedation, renal failure, liver compromise, hypoxia, sepsis. Dialysis stopped today due to hypotension. Palliative care will continue to follow the patient during hospital course as condition evolves, to assist patient/decision-maker with understanding of their medical conditions, weighing benefits/burdens of treatment options, for clarification of goals of treatment. Additionally will assist with any symptoms of palliative concern. . Attestation To help prompt me to consider important information that might be impacting today's encounter and assessment, information from prior notes written by myself or my colleagues may have been "brought forward" into today's note. My signature on this note, however, is an attestation that I personally performed the exam, history, and/or decision-making noted today, and, unless otherwise indicated, the interactions with patient, family, and staff as well as the review of records all occurred today. I also attest that the listed assessment and stated plan reflect my best clinical judgment today based on the combination of historical information, prior notes, and today's exam/ interactions. When time spent is documented, it refers only to time spent today by the signer, or if indicated, combined time spent today by collaborating physician/nurse practitioner. . Linda Gilbert Dec 09, 2017 11:17
[2017-12-09] MEDS: HYDROCORTISONE SOD SUCCINATE 100 MG VIAL IV PUSH SCH (11:48)
[2017-12-09] MEDS: MICAFUNGIN INJ 150 MG in SODIUM CHLORIDE 0.9% INJ 100 ML IV SCH (11:49)
--- NOTE | 2017-12-09 11:55 | HHI.IDPN ---
Note Infectious Disease Note Patient on the ventilator. He is awake. Follow simple commands for me. Weakly squeezes with the hands. Looks at me when I call his name and talk to him. Restarted on Levophed yesterday evening. Currently on 5 mcg. Afebrile. Patient did not tolerate dialysis because of low blood pressure yesterday. Continues to have diffuse edema. weeping at the extremities. loose stools. White blood cell count remains elevated. Platelet count has decreased. Repeat sputum culture has multiple resistant Pseudomonas aeruginosa. Wound culture from 12/08 has Nette. Previous urine culture on 11/28 had Nette. Patient was treated with Diflucan. Chest tube in place on the right due to pneumothorax. 77-year-old, white male who presents to the Emergency Department with shortness of breath. The patient has a history of COPD and CHF. He usually uses CPAP at the assisted living facility. He was noted to have been developing coughing and shortness of breath over the past couple of days, and his states that he was coughing a lot yesterday and bringing up mostly phlegm and that he was restless and could not sleep. Recently treated at [facility] for pneumonia due to methicillin-resistant Staphylococcus aureus. PAST MEDICAL HISTORY: COPD, CHF, atrial fibrillation, insulin-dependent diabetes mellitus, hypertension, hyperlipidemia, gastroesophageal reflux, gastroparesis, iron deficiency anemia, oxygen-dependent. PAST SURGICAL HISTORY: Right knee surgery, right carpal tunnel release, cardiac ablation treatment 2002. ALLERGIES: ASPIRIN, CODEINE. MEDICATIONS: OBJECTIVE: Vital Signs Date Time Temp Pulse Resp B/P (MAP) Pulse Ox O2 Delivery O2 Flow Rate FiO2 12/09/17 11:03 100 35 12/09/17 10:15 87 95/55 12/09/17 10:00 86 12/09/17 08:58 87 101/55 12/09/17 08:00 89 12/09/17 08:00 97.8 89 20 99/55 (70) 99 12/09/17 08:00 35 12/09/17 07:35 100 35 12/09/17 06:00 91 12/09/17 04:00 98.0 91 20 98/55 (69) 100 12/09/17 04:00 91 12/09/17 04:00 35 12/09/17 03:18 100 35 12/09/17 02:00 87 12/09/17 00:00 97.9 125 20 94/53 (67) 100 12/09/17 00:00 35 12/09/17 00:00 125 12/08/17 23:28 100 35 12/08/17 22:51 125 73/46 12/08/17 22:18 123 75/50 12/08/17 22:00 128 12/08/17 21:46 125 74/50 12/08/17 21:35 120 83/45 12/08/17 21:02 121 93/39 12/08/17 20:00 35 12/08/17 20:00 97.8 121 20 84/47 (59) 100 12/08/17 20:00 121 12/08/17 19:40 97 35 12/08/17 18:00 122 12/08/17 16:00 84 12/08/17 16:00 97.9 84 20 95/52 (66) 99 12/08/17 16:00 35 12/08/17 14:41 97 35 12/08/17 14:00 86 12/08/17 12:00 99.0 89 20 81/53 (62) 97 12/08/17 12:00 89 12/08/17 12:00 35 Laboratory Tests Test 12/08/17 10:31 12/09/17 03:10 White Blood Count 32.6 TH/MM3 30.0 TH/MM3 Red Blood Count 3.50 MIL/MM3 3.01 MIL/MM3 Hemoglobin 9.2 GM/DL 8.0 GM/DL Hematocrit 30.1 % 25.6 % Mean Corpuscular Volume 86.2 FL 85.0 FL Mean Corpuscular Hemoglobin 26.4 PG 26.5 PG Mean Corpuscular Hemoglobin Concent 30.6 % 31.2 % Red Cell Distribution Width 19.8 % 20.1 % Platelet Count 70 TH/MM3 52 TH/MM3 Mean Platelet Volume 9.4 FL 10.0 FL Neutrophils (%) (Auto) 92.7 % 94.2 % Lymphocytes (%) (Auto) 3.9 % 3.0 % Monocytes (%) (Auto) 3.2 % 2.7 % Eosinophils (%) (Auto) 0.0 % 0.0 % Basophils (%) (Auto) 0.2 % 0.1 % Neutrophils # (Auto) 30.2 TH/MM3 28.3 TH/MM3 Lymphocytes # (Auto) 1.3 TH/MM3 0.9 TH/MM3 Monocytes # (Auto) 1.0 TH/MM3 0.8 TH/MM3 Eosinophils # (Auto) 0.0 TH/MM3 0.0 TH/MM3 Basophils # (Auto) 0.1 TH/MM3 0.0 TH/MM3 CBC Comment AUTO DIFF AUTO DIFF Differential Total Cells Counted 100 100 Neutrophils % (Manual) 94 % 94 % Lymphocytes % 1 % 1 % Monocytes % 5 % 3 % Neutrophils # (Manual) 30.6 TH/MM3 28.8 TH/MM3 Differential Comment FINAL DIFF MANUAL FINAL DIFF MANUAL Platelet Estimate LOW LOW Platelet Morphology Comment NORMAL NORMAL Ovalocytes 1+ Red Cell Morphology Comment Band Neutrophils % 2 % Nucleated Red Blood Cells 1 /100 WBC Laboratory Tests Test 12/07/17 14:16 12/08/17 10:31 12/09/17 03:10 Lactic Acid Level 2.2 mmol/L Blood Urea Nitrogen 108 MG/DL 98 MG/DL Creatinine 4.40 MG/DL 3.66 MG/DL Random Glucose 155 MG/DL 225 MG/DL Total Protein 5.0 GM/DL 4.9 GM/DL Albumin 2.1 GM/DL 2.7 GM/DL Calcium Level 5.9 MG/DL 6.2 MG/DL Alkaline Phosphatase 305 U/L 239 U/L Aspartate Amino Transf (AST/SGOT) 153 U/L 196 U/L Alanine Aminotransferase (ALT/SGPT) 100 U/L 124 U/L Total Bilirubin 1.0 MG/DL 2.0 MG/DL Sodium Level 137 MEQ/L 139 MEQ/L Potassium Level 4.9 MEQ/L 4.4 MEQ/L Chloride Level 98 MEQ/L 100 MEQ/L Carbon Dioxide Level 21.1 MEQ/L 20.1 MEQ/L Anion Gap 18 MEQ/L 19 MEQ/L Estimat Glomerular Filtration Rate 13 ML/MIN 16 ML/MIN Protein Corrected Calcium 6.8 MG/DL 7.2 MG/DL Microbiology Date/Time Source Procedure Growth Status 12/06/17 17:55 Sputum Endotracheal Gram Stain - Final Complete 12/06/17 17:55 Sputum Culture - Final Pseudomonas Aeruginosa Multi-Drug Resistant Complete 12/08/17 18:00 Urine Catheterized Urine Urine Culture - Preliminary Yeast-Id To Follow Resulted Imaging: Chest X-Ray 4/12/18 0600 Signed Impressions: Service Date/Time: November 03:05 - CONCLUSION: Tiny right apical pneumothorax. Nikunj Oneil MD Head CT 12/08/17 0000 Signed Impressions: Service Date/Time: Friday, December 08, 2017 08:25 - CONCLUSION: Negative for acute process. Torin Dennison MD FACR Chest X-Ray 12/08/17 0000 Signed Impressions: Service Date/Time: Friday, December 08, 2017 10:25 - CONCLUSION: Right chest tube with increasing subcutaneous emphysema and trace pneumothorax. Torin Dennison MD FACR Chest X-Ray 12/07/17 0000 Signed Impressions: Service Date/Time: Thursday, December 07, 2017 21:21 - CONCLUSION: 1. Right- sided chest tube in place with no visualized pneumothorax. There is been interval decrease in subcutaneous emphysema over the right lateral chest wall. 2. Stable blunting of left costophrenic angle with hazy opacity remaining at the left lung base. Liang Jimenez MD Chest X-Ray 12/07/17 0000 Signed Impressions: Service Date/Time: Thursday, December 07, 2017 08:57 - CONCLUSION: 1. Right chest tube remains present and there is a potential small right apical pneumothorax present. Right chest wall subcutaneous emphysema is stable. 2. Stable left basilar opacity with blunting of the left costophrenic sulcus. Abdiel Kwon MD PHYSICAL EXAMINATION: GENERAL: Sedated. Awake. HEENT: No icterus. EOMI. moist mucosa. NECK: No swelling or adenopathy. LUNGS: Decreased breath sounds. HEART: Regular without audible murmurs. ABDOMEN: Bowel sounds present, obese, soft. Non tender. EXTREMITIES: 3+ diffuse edema. Bullae at the lower extremities have broken. Cyanosis at the tips of the toes. Both feet and tibia is of extremely cold to palpation. SKIN: No diffuse rash. NEUROLOGIC: Nonfocal. Following commands. PSYCHIATRIC: Calm and cooperative. IMPRESSION: 1. Sepsis. 2. Pneumonia Pseudomonas MDR. Latest sputum culture continues to have Pseudomonas. Could be colonization. However with his seriously ill clinical condition he may have ongoing pneumonia. 3. Acute respiratory failure. Vent dependent. Extubated previously and appears to have aspirated. 4. Leukocytosis. WBC remains increased. 5. Nette glabrata UTI. Persistent despite management with Diflucan. 6. Right-sided pneumothorax. Subcutaneous emphysema. 7. History of chronic obstructive pulmonary disease and recent chronic obstructive pulmonary disease exacerbation. 8. Renal failure. Patient is very critically ill. RECOMMENDATIONS: 1. Continue Micafungin. Patient has been on broad-spectrum antibiotics And has potential for systemic fungal infection. LFTs also increasing and could be due to Diflucan. Monitor white blood cell count. 2. Continue Zerbaxa for pneumonia. 3. Continue Levaquin. 4. Monitor white blood cell count. 5. Monitor LFTs. 6. Monitor clinical status. Discussed with RN. Tom Long MD Dec 09, 2017 11:55
--- NOTE | 2017-12-09 12:43 | HHI.NPPN ---
Subjective Renal Failure: Acute History of Present Illness This is a 77-year-old male with past medical history of ischemic heart disease, atrial fibrillation, congestive heart failure, possibly diastolic dysfunction, diabetes mellitus, chronic obstructive pulmonary disease, was admitted on 11/14 with respiratory distress. Nephrology was called to see the patient because of elevated BUN and creatinine. The patient has creatinine of 1.1 on admission, which increased after 2 or 3 to 1.3-1.5 and for the last 2 days, it has been going up and now it is 2.8. The patient was initially diagnosed with pneumonia and was started on antibiotics and then later on, patient developed respiratory failure and was intubated. He was also found to have asystole on 11/27 for 3 minutes and CPR was done with ACLS protocol, and it was shown that he has large right-sided pneumothorax. The blood pressure has been stable and there are no significant hypotensive episodes documented. Most of the history was taken from he patient' s chart. Additional Remarks Patient is intubated. Continues to have bilateral lower extremity edema. Blood pressure is low and pressors are infusing. meeting with palliative care. (Adeola Velez) Review of Systems General General Remarks Unable to do ROS as patient is intubated (Adeola Velez) Objective Data Data 12/09/17 12/10/17 19:00 07:00 Intake Total 100 ml Balance 100 ml IV Total 100 ml Vital Signs Date Time Temp Pulse Resp B/P (MAP) Pulse Ox O2 Delivery O2 Flow Rate FiO2 12/09/17 11:03 100 35 12/09/17 10:15 87 95/55 12/09/17 10:00 86 12/09/17 08:58 87 101/55 12/09/17 08:00 89 12/09/17 08:00 97.8 89 20 99/55 (70) 99 12/09/17 08:00 35 12/09/17 07:35 100 35 12/09/17 06:00 91 12/09/17 04:00 98.0 91 20 98/55 (69) 100 12/09/17 04:00 91 12/09/17 04:00 35 12/09/17 03:18 100 35 12/09/17 02:00 87 12/09/17 00:00 97.9 125 20 94/53 (67) 100 12/09/17 00:00 35 12/09/17 00:00 125 12/08/17 23:28 100 35 12/08/17 22:51 125 73/46 12/08/17 22:18 123 75/50 12/08/17 22:00 128 12/08/17 21:46 125 74/50 12/08/17 21:35 120 83/45 12/08/17 21:02 121 93/39 12/08/17 20:00 35 12/08/17 20:00 97.8 121 20 84/47 (59) 100 12/08/17 20:00 121 12/08/17 19:40 97 35 12/08/17 18:00 122 12/08/17 16:00 84 12/08/17 16:00 97.9 84 20 95/52 (66) 99 12/08/17 16:00 35 12/08/17 14:41 97 35 12/08/17 14:00 86 (Adeola Velez) -: 12/09/17 0310 12/09/17 0310 Microbiology 12/08/17 Urine Culture - Preliminary, Resulted Yeast-Id To Follow Tubes & Lines: Vas-Cath, Haynes (Adeola Velez) Physical Exam General Appearance: No Acute Distress, Obese (Adeola Velez) Eyes Eye Exam: Pupils Equal (Adeola Velez) Pulmonary Resp Exam: Breath Sounds Equal Resp Remarks SQ emphysema present Intubated CT right chest wall (Adeola Velez) Cardiology CV Exam: Regular (Adeola Velez) Gastrointestinal/Abdomen GI Exam: Soft, Non-Tender, Distended (Adeola Velez) Genitourinary Exam: Flank Non-Tender (Adeola Velez) Integumentary Skin Exam: Clear, Warm (Adeola Velez) Extremeties Extremities Exam: Moderate Edema (Adeola Velez) Neurologic Neuro Exam: Awake (Adeola Velez) Assessment/Plan Assessment Summary: DAVID/Acute Renal Failure Problem List: (1) DAVID (acute kidney injury) ICD Codes: N17.9 - Acute kidney failure, unspecified Plan: Acute kidney injury most likely related to prerenal vs acute tubular necrosis, either from the infection or related to his cardiac status and cardiac arrest. Renal US unable to visualize kidneys or bladder? UOP continues to be minimal Potassium WNL Plan Renal dose antibiotics Continue for follow UOP and BMP Avoid nephrotoxins as possible. Continue Fosrenol and calcitriol Hypocalcemia improved but still low will order calcium gluconate Hypotensive and on pressors. met with palliative care and goals continue to be aggressive. Dialysis planned for tomorrow. (2) Respiratory failure ICD Codes: J96.90 - Respiratory failure, unspecified, unspecified whether with hypoxia or hypercapnia Plan: Intubated weaning per CC (Adeola Velez) Problem List: (1) DAVID (acute kidney injury) ICD Codes: N17.9 - Acute kidney failure, unspecified Plan: Acute kidney injury most likely related to prerenal vs acute tubular necrosis, either from the infection or related to his cardiac status and cardiac arrest. Renal US unable to visualize kidneys or bladder? UOP continues to be minimal Potassium WNL Plan Renal dose antibiotics Continue for follow UOP and BMP Avoid nephrotoxins as possible. Continue Fosrenol and calcitriol Hypocalcemia improved but still low will order calcium gluconate Hypotensive and on pressors. met with palliative care and goals continue to be aggressive. Dialysis planned for tomorrow. Patient seen and examined, agree with above. HD done yesterday, BP is better, but still on pressors, HD or CVVHD tomorrow. (2) Respiratory failure ICD Codes: J96.90 - Respiratory failure, unspecified, unspecified whether with hypoxia or hypercapnia Plan: Intubated weaning per CC (America Vela MD) Adeola Velez Dec 09, 2017 12:43 America Vela MD Dec 09, 2017 18:13
[2017-12-09] MEDS ORDERED: CALCIUM GLUCONATE INJ 1 GM in SODIUM CHLORIDE 0.9% INJ 90 ML IV ONE (13:00)
[2017-12-09] MEDS: LEVOFLOXACIN 250 MG PREMIX INJ 50 ML IV SCH (15:18)
--- NOTE | 2017-12-09 20:24 | RADRPT ---
EXAM DATE/TIME: 12/09/2017 19:18 [facility] COMPARISON: US ABDOMEN - LIVER, December 06, 2017, 11:19. INDICATIONS : Elevated labs. MEDICAL HISTORY : Congestive heart failure. Hypercholesterolemia. Hypertension. A-fib. COPD.Dyspnea. GERD. BPH. Diabete s. MRSA. SURGICAL HISTORY : Knee surgery. ENCOUNTER: Subsequent ACUITY: 1 week PAIN SCORE: Nonresponsive. LOCATION: Right upper quadrant Abdomen. MEASUREMENTS: LIVER: N/A COMMON DUCT: Non-visualized RIGHT KIDNEY: N/A SPLEEN: 7.5 x 3.4 cm length FINDINGS: Visualization remains suboptimal due to patient body habitus and obscuration by bowel gas as well as large bandages on the patient's abdomen. LIVER: Limited visualization of portions of the liver appear grossly unremarkable. Large areas of the liver could not be evaluated. There is no evidence of ductal dilatation or ascites. COMMON DUCT: No intraluminal mass or stone visualized. GALLBLADDER: Not visualized. PANCREAS: Not well visualized or evaluated. RIGHT KIDNEY: No hydronephrosis, stone or mass. SPLEEN: No focal lesion. A left pleural effusion was noted. CONCLUSION: 1. Limited suboptimal examination with only a small portion of the liver visualized. 2. The gallbladder and common bile duct could not be visualized. The pancreas is not evaluated. 3. Left pleural effusion. Liang Jimenez MD on December 09, 2017 at 20:17 Board Certified Radiologist. This report was verified electronically.
[2017-12-10] VITALS (16 sets, daily range): BP systolic 84–115; BP diastolic 45–58; PULSE 86–135; RESP 20–26; TEMP 97.6–98.5; O2SAT 97–100
[2017-12-10] MEDS: CEFTOLOZANE-TAZOBACTAM INJ 150 MG in SODIUM CHLORIDE 0.9% INJ 100 ML IV SCH ×3 (00:21→15:04)
[2017-12-10] MEDS: HYDROCORTISONE SOD SUCCINATE 100 MG VIAL IV PUSH SCH ×2 (00:22→13:23)
[2017-12-10] MEDS: NOREPINEPHRINE-DEXTROSE DRIP 250 ML IV PRN (03:00)
[2017-12-10] MEDS: RESP: ALBUTEROL 2.5 MG/IPRATROPIUM 0.5 MG NEB (SCH) NEB ×2 (03:04→07:20)
[2017-12-10] MEDS: CHLORHEXIDINE GLUCONATE 2 % 1 PACK (2 CLOTHS) TOP SCH (04:00)
[2017-12-10] MEDS: INSULIN ASPART SUPPLEMENTAL SCALE SQ SCH ×6 (04:00→20:15)
[2017-12-10 07:18] LABS: AUTOMATED NEUTROPHIL # 29.4 TH/MM3 (1.8-7.7); BASOPHIL # 0.1 TH/MM3 (0-0.2); BASOPHIL % 0.2 % (0.0-2.0); HEMATOCRIT 28.2 % (39.0-51.0); HEMOGLOBIN 8.9 GM/DL (13.0-17.0); MEAN CORPUSCULAR HEMOGLOBIN 26.6 PG (27.0-34.0); MEAN CORPUSCULAR HGB CONC 31.6 % (32.0-36.0); MEAN PLATELET VOLUME 9.4 FL (7.0-11.0); MONO % 4.3 % (0.0-8.0); MONOCYTE # 1.4 TH/MM3 (0-0.9); NEUT % 89.5 % (16.0-70.0); PLATELET COUNT 42 TH/MM3 (150-450); RED BLOOD COUNT 3.35 MIL/MM3 (4.50-5.90); RED CELL DISTRIBUTION WIDTH 20.2 % (11.6-17.2); WHITE BLOOD COUNT 32.8 TH/MM3 (4.0-11.0)
[2017-12-10 07:43] LABS: ALBUMIN 2.5 GM/DL (3.4-5.0); BICARBONATE 20.2 MEQ/L (21.0-32.0); CALCIUM 5.8 MG/DL (8.5-10.1); CREATININE 4.12 MG/DL (0.60-1.30); TOTAL BILIRUBIN ADULT 1.3 MG/DL (0.2-1.0)
[2017-12-10 08:01] LABS: CALCIUM-PROTEIN CORRECTED 6.7 MG/DL (8.5-10.1)
[2017-12-10 08:30] LABS: BANDS 3 % (0-6); CORRECTED NUCLEATED RBC 2 /100 WBC (0-0); LYMPHOCYTES 5 % (9-44); MONOCYTES 6 % (0-8); NEUTROPHIL # MANUAL DIFF 29.2 TH/MM3 (1.8-7.7); NUCLEATED RED BLOOD CELL 2 (0-0); POLYS (SEG NEUTROPHILS) 86 % (16-70)
[2017-12-10 08:31] LABS: OVALOCYTES 1+ (NORMAL)
[2017-12-10] MEDS: LANTHANUM CARBONATE 500 MG CHEWABLE TABLET CHEW SCH ×3 (08:50→16:45)
[2017-12-10] MEDS: FAMOTIDINE 20 MG TAB PO SCH ×2 (08:50→20:14)
[2017-12-10] MEDS: CALCITRIOL 0.25 MCG CAP PO SCH (08:50)
[2017-12-10] MEDS: SODIUM CHLORIDE 0.9% FLUSH 10 ML FLUSH IV FLUSH SCH ×2 (08:51→20:15)
[2017-12-10] MEDS: HEPARIN SODIUM - SQ 10,000 UNITS/ML VIAL SQ SCH ×2 (08:51→20:14)
[2017-12-10] MEDS: DOCUSATE SODIUM 50 MG/SENNA 8.6 MG TAB PO SCH ×2 (08:51→20:15)
[2017-12-10] MEDS: BUDESONIDE-FORMOTEROL 160/4.5 MCG INHALER INH SCH ×2 (08:51→20:15)
[2017-12-10] MEDS: INSULIN DETEMIR 100 UNITS/ML VIAL SQ SCH ×2 (08:52→20:15)
[2017-12-10] MEDS: CHLORHEXIDINE 0.12% (ORAL KIT) 15 ML CUP MT SCH ×2 (08:53→20:00)
[2017-12-10] MEDS ORDERED: TERBUTALINE INJ 1 MG/ML AMP SQ PRN ×2 (10:15→19:30)
[2017-12-10] MEDS ORDERED: PHENYLEPHRINE 40 MG in D5W 500 ML IV PRN (10:15)
[2017-12-10] MEDS: GENTAMICIN SULFATE 20 MG/2 ML VIAL OTHER PRN (11:44)
[2017-12-10] MEDS: ALBUMIN 25% INJ 100 ML IV PRN ×2 (11:44→11:46)
[2017-12-10] MEDS: EPOETIN ALFA 10,000 UNITS/ML VIAL IV PUSH PRN (11:45)
[2017-12-10] MEDS ORDERED: METOPROLOL TARTRATE 5 MG/5 ML VIAL IV PUSH ONE (13:00)
--- NOTE | 2017-12-10 13:01 | HHI.CCPN ---
Subjective Remarks/Hospital Course This is a 77-year-old male with a medical history significant for COPD, CHF, A. fib, diabetes, that presented to emergency department from [facility] for evaluation of worsening shortness of breath over the last 3 days. The patient was been given Solu-Medrol 125 mg and 2 albuterol treatments enroute to ED. Upon presentation to the ED the patient was on a nonrebreather. He was tachypneic and tachycardic. Patient's medical history significant for MRSA pneumonia previously admitted on 10/27/16 for approximately 12 days at [facility]. The patient is normally on 2.5 L/m nasal cannula O2 home dependency, and he lives with ( normally) a PCO2 in the 80s according to his . Patient was then discharged to [facility], and then transferred to [facility] for rehabilitation. He has been on an unknown antibiotic per the family and steroids for the last 3 days. Laboratory and imaging studies were performed with noted elevation in CO2 The patient was given empiric antibiotics in the ED and placed on BiPAP. Critical care medicine was consulted. Subjective: 11/15: Patient maintained on BiPAP throughout the night O2 saturations 97-98% on FiO2 of 0.40. Hemodynamically stable. Attempts made to wean patient to nasal cannula this a.m. unsuccessful, patient's O2 saturation in the 70s, patient placed back on BiPAP. Chest x-ray pending WBC count significantly diminished, leukocytosis resolved. Patient extremely anxious, Precedex infusion initiated. 11/16: Late entry note. Patient seen 10 AM. Overnight the patient converted to A. fib RVR, despite being on Cardizem 4 times a day and metoprolol twice a day- home medications, the patient received IV Cardizem followed by amiodarone infusion. Per report the patient became hypotensive, Cardizem discontinued. Amiodarone continued. Early this a.m. patient was resting comfortably A. fib rate controlled rate. The patient suddenly converted to A. fib RVR heart rate 150s-160s, acute hypoxemic respiratory failure, requiring intubation. The patient was intubated uneventfully and continues on amiodarone at 0.5 mg/hour, rate now controlled in conjunction with sedation. Cardiology consulted, his circular gang saw operator is Dr. Reyes X-ray revealed lung consolidation improved, chest x- ray clear. Plan for CPAP trials in a.m.. 11/17: No acute events overnight. Patient had 1 short 8 beat run of V. tach last evening was self resolution, electrolytes within normal limits. The patient continues on amiodarone 0.5 mg/hr. CPAP trials initiated this a.m.. Tube feeds initiated at trickle feeds. Patient converted to sinus rhythm at 2 AM. 11/18 Patient remains sedated and intubated. Afebrile. 11/19 Patient was extubated yesterday however last night he was noted to choke on water provided by the family. Stat ABG demonstrated acute hypercapnic respiratory failure and was emergently intubated. Currently sedated and intubated. 11/20 Patient remains intubated on Fentanyl drip however he si awake and alert. Afebrile. 11/21 Patient is awake and alert placed on CPAP with PS:15, PEEP:5. Afebrile. 11/22 Patient remains intubated , did not tolerate CPAP trials yesterday as he became tachycardic and hypertensive. On no sedation awake and alert. 11/23 No events overnight, off sedation. 11/24: Resting comfortably on mechanical ventilation currently. Daily C Pap trials ongoing. 11/25: Sedated with Precedex, orally intubated on mechanical ventilation. Daily C Pap trials 11/26: Sedated with Precedex, orally intubated on mechanical ventilation. Got tachypneic with CPAP trial today hence placed back on PRVC. Spiked a fever, garcia cultures ordered. Went into A. fib with RVR subsequently for which being initiated on amiodarone bolus followed by drip and Lopressor 5 mg IV every 6 as needed for 11/27: This morning patient developed bradycardia followed by asystole for which she had 3 minutes CPR with ACLS protocol with return of spontaneous circulation. Post code chest x-ray revealed moderate to large right pneumothorax for which a right pigtail catheter was placed by me however despite airleak patient continue have moderate to large pneumothorax hence a second right sided 28 Cameroonian chest tube was placed to -40 cm water pressure. Air leaks 1+ in both pigtail catheter and chest tube. Patient remains in a flutter currently. Dr. reyes evaluated patient as well following cardiac arrest. 11/28: Sedated, arousable, orally intubated on mechanical ventilation. Worsening renal function noted. MDR Pseudomonas in sputum. Right sided chest tube/ pigtail catheter with 1+ air leak in both. Subcutaneous emphysema noted over right side of face neck and right upper extremity. On 50% FiO2, PEEP +5. Poor urine output for which 500 cc and is bolus given earlier. Treated for hyperkalemia with Kayexalate PO, glucose insulin, calcium IV. 4/2: Remains sedated, arousable, orally intubated on mechanical ventilation. A. fib with RVR this morning for which she was loaded with amiodarone and initiated on amiodarone drip. Spiking fever 103.5. ID adjusting antibiotics. Stool for C. difficile ordered as he had some diarrhea today though received Kayexalate yesterday for hyperkalemia. Pigtail catheter on the right side appeared to be dislodged hence this was removed. 28 Cameroonian chest tube in right pleural cavity repositioned. 11/30: Late entry note , patient seen at 12 noon. Creatinine continues to trend upward.Sedated but easily arousable. 12/01: Patient lightly sedated, following commands this a.m.. Creatinine noted increased, possible dialysis consideration for tomorrow. Patient to be diuresed today. CPAP trial initiated failed after 5 minutes, repeat this afternoon. 12/02: Patient placed on Lasix infusion throughout the night . No renal improvement,creatinine worsened today , plan for Vas-Cath placement and IHD today. This extensive discussion with patient and plans for tracheostomy and PEG tube placement secondary to failure to wean. 12/03: Late entry note, patient seen at 11 am. Patient scheduled for PEG placement today by Dr. Iglesias. Patient continues to fail CPAP trials. Plan for tracheostomy in the near future 12/04: Late entry note . Patient seen earlier this am. Overnight the patient became hypoglycemic, secondary to n.p.o. status, post PEG placement. D10 was initiated at 30 cc/hr. Tube feeds reinitiated Jevity 1.5, 24 hours post PEG tube placed, D10 discontinued. Patient remains on fentanyl at 100 mics/hour, lightly sedated. Patient denies pain answering by nodding head to yes and no questions. Tracheostomy planned for Wednesday12/06/[address] Calderon. 12/05: Remains intubated sedated with 50 mcg of fentanyl. On attempted CPAP trial patient remained dyspneic. Significant neuromuscular weakness persist. Chest x-ray shows small right apical pneumothorax. Tentatively plan for tracheostomy tomorrow. Dr. Calderon has already been consulted 12/06 Patient remains intubated for possible trach today. On Levophed 12 mics. Afebrile. 12/07 No events overnight. Trach was placed on hold yesterday as patient was on Levophed. He is down to 5 mics today. Afebrile. 12/08 Patient remains intubated on no sedation. CT brain this morning showed no acute process. Off Levophed. 12/09 Patient was placed back on Levophed 6 mics. Afebrile. Remains intubated on no sedation. 12/10 Patient remains intubated. On Neosyn 40 mics went into Afib with RVR HR 128 Objective Vital Signs Date Time Temp Pulse Resp B/P (MAP) Pulse Ox O2 Delivery O2 Flow Rate FiO2 12/10/17 12:00 98.4 128 20 115/58 (77) 97 12/10/17 12:00 35 Intake and Output 12/10/17 12/10/17 12/11/17 08:00 16:00 00:00 Intake Total 578 ml Output Total 55 ml 1500 ml Balance 523 ml -1500 ml Result Diagram: 12/10/17 0623 12/10/17 0649 Other Results Laboratory Tests Test 12/10/17 06:23 12/10/17 06:49 White Blood Count 32.8 TH/MM3 Red Blood Count 3.35 MIL/MM3 Hemoglobin 8.9 GM/DL Hematocrit 28.2 % Mean Corpuscular Volume 84.0 FL Mean Corpuscular Hemoglobin 26.6 PG Mean Corpuscular Hemoglobin Concent 31.6 % Red Cell Distribution Width 20.2 % Platelet Count 42 TH/MM3 Mean Platelet Volume 9.4 FL Neutrophils (%) (Auto) 89.5 % Lymphocytes (%) (Auto) 6.0 % Monocytes (%) (Auto) 4.3 % Eosinophils (%) (Auto) 0.0 % Basophils (%) (Auto) 0.2 % Neutrophils # (Auto) 29.4 TH/MM3 Lymphocytes # (Auto) 2.0 TH/MM3 Monocytes # (Auto) 1.4 TH/MM3 Eosinophils # (Auto) 0.0 TH/MM3 Basophils # (Auto) 0.1 TH/MM3 CBC Comment AUTO DIFF Differential Total Cells Counted 100 Neutrophils % (Manual) 86 % Band Neutrophils % 3 % Lymphocytes % 5 % Monocytes % 6 % Neutrophils # (Manual) 29.2 TH/MM3 Nucleated Red Blood Cells 2 /100 WBC Differential Comment FINAL DIFF MANUAL Platelet Estimate LOW Platelet Morphology Comment NORMAL Ovalocytes 1+ Blood Urea Nitrogen 119 MG/DL Creatinine 4.12 MG/DL Random Glucose 120 MG/DL Total Protein 5.0 GM/DL Albumin 2.5 GM/DL Calcium Level 5.8 MG/DL Alkaline Phosphatase 278 U/L Aspartate Amino Transf (AST/SGOT) 97 U/L Alanine Aminotransferase (ALT/SGPT) 105 U/L Total Bilirubin 1.3 MG/DL Sodium Level 138 MEQ/L Potassium Level 4.9 MEQ/L Chloride Level 99 MEQ/L Carbon Dioxide Level 20.2 MEQ/L Anion Gap 19 MEQ/L Estimat Glomerular Filtration Rate 14 ML/MIN Protein Corrected Calcium 6.7 MG/DL Imaging Last Impressions Chest X-Ray 12/09/17 0600 Signed Impressions: Service Date/Time: November 03:05 - CONCLUSION: Tiny right apical pneumothorax. Nikunj Oneil MD Liver Ultrasound 12/09/17 0000 Signed Impressions: Service Date/Time: November 19:18 - CONCLUSION: 1. Limited suboptimal examination with only a small portion of the liver visualized. 2. The gallbladder and common bile duct could not be visualized. The pancreas is not evaluated. 3. Left pleural effusion. Liang Jimenez MD Head CT 12/08/17 0000 Signed Impressions: Service Date/Time: Friday, December 08, 2017 08:25 - CONCLUSION: Negative for acute process. Torin Dennison MD FACR Catheter Placement X-Ray 12/02/17 0000 Signed Impressions: Service Date/Time: November 10:47 - CONCLUSION: Uncomplicated right internal jugular Vas-Cath placement as above. incidental note is made of subcutaneous emphysema within the chest wall and neck Con Dennison MD Lower Extremity Ultrasound 11/29/17 0000 Signed Impressions: Service Date/Time: Wednesday, November 29, 2017 22:02 - CONCLUSION: Normal examination. Abdiel Mcintyre MD Renal Ultrasound 11/28/17 0000 Signed Impressions: Service Date/Time: Tuesday, November 28, 2017 20:30 - CONCLUSION: Nondiagnostic exam. Rashad Bose MD Objective Remarks GENERAL: Patient is 77 yo intubated awake nodding yes and no to questions, awake alert SKIN: Warm and dry. HEAD: Normocephalic. Mild subcutaneous emphysema involving right side of face neck shoulder and arm. EYES: No scleral icterus. No injection or drainage. NECK: Supple, trachea midline. No JVD or lymphadenopathy. CARDIOVASCULAR: S1-S2 irregularly irregular, no gallop or murmur. RESPIRATORY: Orally intubated on mechanical ventilation, air entry decreased bilaterally, scattered rhonchi bilaterally, no wheezing. Right sided chest tube with 1+ airleak. Subcutaneous emphysema or right chest wall, neck, right side of face and right upper extremity. GASTROINTESTINAL: Abdomen soft, non-tender, nondistended. MUSCULOSKELETAL: Bilateral peripheral edema +2 Neuro: Awake, orally intubated, on mechanical ventilation, follows simple commands intermittently A/P Problem List: (1) A-fib ICD Code: I48.91 - Unspecified atrial fibrillation (2) CHF (congestive heart failure) ICD Code: I50.9 - Heart failure, unspecified Status: Chronic (3) HTN (hypertension) ICD Code: I10 - Essential (primary) hypertension Status: Chronic (4) ADRIAN (obstructive sleep apnea) ICD Code: G47.33 - Obstructive sleep apnea (adult) (pediatric) Status: Chronic (5) MRSA pneumonia ICD Code: J15.212 - Pneumonia due to Methicillin resistant Staphylococcus aureus Status: Acute (6) Diabetes mellitus type 2, insulin dependent ICD Code: E11.9 - Type 2 diabetes mellitus without complications; Z79.4 - oil heaterman (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) use of insulin Status: Chronic (7) COPD (chronic obstructive pulmonary disease) ICD Code: J44.9 - Chronic obstructive pulmonary disease, unspecified Status: Acute (8) Respiratory distress ICD Code: R06.03 - Acute respiratory distress Status: Acute (9) Leukocytosis ICD Code: D72.829 - Elevated white blood cell count, unspecified Status: Acute (10) Lung consolidation ICD Code: J18.1 - Lobar pneumonia, unspecified organism Status: Acute (11) Anxiety ICD Code: F41.9 - Anxiety disorder, unspecified Status: Chronic (12) Failure to wean from mechanical ventilation ICD Code: Z99.11 - Dependence on respirator [ventilator] status Assessment and Plan Plan by systems: Neurologic: Possible Anoxic encephalopathy following cardiac arrest Anxiety disorder Off sedation, monitor neuro status, Neuro checks per ICU protocol EEG: Mild- mod encephalopathy. Neuro is following- Dr. Anne. CT brain 12/08 no acute process Hold gabapentin 300mmg q HS home med Respiratory: Acute respiratory failure on mechanical ventilation- extubated and reintubated night of 11/18 after he was noted to choke on water provided by family. COPD exacerbation Pneumonia-MRSA, MDR Pseudomonas Right sided pneumothorax following CPR status post pigtail catheter/chest tube placement 11/27 Obstructive sleep apnea Home O2 dependency Continue with vent support keep sats >92% Bronchodilators, HC 50mg IV Q12 Pulmonology - Dr Price, Right sided chest tube in place. Continue 28 F right chest tube to -40 cm water pressure with underwater seal. 12/02 general surgery consult for tracheostomy-plan for tracheostomy when stable CXR 12/09: Tiny ? right apical PTX, check CXR today Cardiovascular: A. fib RVR Cardiac arrest - asystole, status post CPR 11/27 History of CHF CAD Wean off Neosyn keep MAP>65mmHg. Lactic acid:2.2 Atorvastatin 80 daily on hold for elevated LFT's Cardiology - Dr. Reyes Echo showed EF 65-70% Renal: DAVID Monitor renal function, electrolytes replacement as needed Nephrology Dr. Ragland. 12/02 Vas-Cath placed for initiation of IHD . HD today FEN/GI: Elevated LFT's GERD Monitor LFT's, US liver on 12/06: non diagnostic study US liver 12/09 limited study Hepatitis profile is negative On tube feeds On Nepro @40cc/hr. Pepcid for GI prophylaxis Replete electrolytes per ICU 12/03 PEG tube placement ID: Pneumonia MRSA, MDR Pseudomonas Leukocytosis ID following- Antibiotics per ID (on Micafungin, Zerbaxa and Levaquin) Stool for C. difficile negative on 11/29 and 12/06 Pertinent cultures 12/09 BC: NGTD 411 Urine cx: No growth 12/06 Sputum cx: Pseudomonas MDR 11/16 sputum cultures- Kleb pneumonia 11/26 sputum cultures growing multidrug resistant Pseudomonas/MRSA 11/28 urine culture growing yeast 11/26 blood culture neg Heme Monitor CBC Endocrine: Glucose monitoring per ICU protocol -- SSI(high scale) Levemir 5u Q12 and taper IV steroids Prophylaxis: GI Prophylaxis Famotidine BID DVT Prophylaxis -- SCDs Held home dose Eliquis 5 mg BID on 11/27 in view of anticipated procedures Heparin 5000 units subcutaneously every 8 hourly for DVT prophylaxis Lines: Left IJ central line placed 11/28, Palliative care is following Level 3 Problem Qualifiers (1) COPD (chronic obstructive pulmonary disease): Qualified Codes: J44.9 - Chronic obstructive pulmonary disease, unspecified (2) Leukocytosis: Qualified Codes: D72.829 - Elevated white blood cell count, unspecified Carmen Richard MD Dec 10, 2017 13:01
[2017-12-10] MEDS: MICAFUNGIN INJ 150 MG in SODIUM CHLORIDE 0.9% INJ 100 ML IV SCH (13:23)
--- NOTE | 2017-12-10 13:29 | HHI.NPPN ---
Subjective Renal Failure: Acute History of Present Illness This is a 77-year-old male with past medical history of ischemic heart disease, atrial fibrillation, congestive heart failure, possibly diastolic dysfunction, diabetes mellitus, chronic obstructive pulmonary disease, was admitted on 11/14 with respiratory distress. Nephrology was called to see the patient because of elevated BUN and creatinine. The patient has creatinine of 1.1 on admission, which increased after 2 or 3 to 1.3-1.5 and for the last 2 days, it has been going up and now it is 2.8. The patient was initially diagnosed with pneumonia and was started on antibiotics and then later on, patient developed respiratory failure and was intubated. He was also found to have asystole on 11/27 for 3 minutes and CPR was done with ACLS protocol, and it was shown that he has large right-sided pneumothorax. The blood pressure has been stable and there are no significant hypotensive episodes documented. Most of the history was taken from he patient' s chart. Additional Remarks Patient is intubated. Continues to have large amount of bilateral lower extremity edema with weeping. Hemodialysis just completed. (Adeola Velez) Review of Systems General General Remarks Unable to do ROS as patient is intubated (Adeola Velez) Objective Data Data 12/10/17 12/11/17 19:00 07:00 Output Total 1500 ml Balance -1500 ml Hemodialysis 1500 ml Vital Signs Date Time Temp Pulse Resp B/P (MAP) Pulse Ox O2 Delivery O2 Flow Rate FiO2 12/10/17 12:00 98.4 128 20 115/58 (77) 97 12/10/17 12:00 35 12/10/17 12:00 128 12/10/17 11:08 100 35 12/10/17 10:30 136 95/50 12/10/17 10:00 135 12/10/17 08:00 98.2 87 20 102/58 (73) 99 12/10/17 08:00 35 12/10/17 08:00 86 12/10/17 07:20 100 35 12/10/17 04:03 99 35 12/10/17 04:00 35 12/10/17 04:00 97.7 86 20 96/55 (69) 100 12/10/17 03:00 86 114/56 12/10/17 00:07 99 35 12/10/17 00:00 35 12/10/17 00:00 97.6 90 20 108/57 (74) 100 12/09/17 21:03 100 35 12/09/17 20:00 35 12/09/17 20:00 97.9 89 20 100/56 (71) 98 12/09/17 18:00 79 12/09/17 16:00 85 12/09/17 16:00 35 12/09/17 16:00 97.3 90 20 123/61 (81) 98 12/09/17 15:00 82 93/52 12/09/17 14:59 99 35 12/09/17 14:00 87 (Adeola Velez) -: 12/10/17 0623 12/10/17 0649 Microbiology 12/09/17 Aerobic Blood Culture, Received Pending 12/09/17 Anaerobic Blood Culture, Received Pending 12/09/17 Aerobic Blood Culture, Received Pending 12/09/17 Anaerobic Blood Culture, Received Pending Tubes & Lines: Vas-Cath, Haynes (Adeola Velez) Physical Exam General Appearance: No Acute Distress, Obese (Adeola Velez) Eyes Eye Exam: Pupils Equal (Adeola Velez) Pulmonary Resp Exam: Breath Sounds Equal Resp Remarks SQ emphysema present Intubated CT right chest wall (Adeola Velez) Cardiology CV Exam: Regular (Adeola Velez) Gastrointestinal/Abdomen GI Exam: Soft, Non-Tender, Distended (Adeola Velez) Genitourinary Exam: Flank Non-Tender (Adeola Velez) Integumentary Skin Exam: Clear, Warm (Adeola Velez) Extremeties Extremities Exam: Moderate Edema (Adeola Velez) Neurologic Neuro Exam: Awake (Adeola Velez) Assessment/Plan Assessment Summary: DAVID/Acute Renal Failure Problem List: (1) DAVID (acute kidney injury) ICD Codes: N17.9 - Acute kidney failure, unspecified Plan: Acute kidney injury most likely related to prerenal vs acute tubular necrosis, either from the infection or related to his cardiac status and cardiac arrest. Renal US unable to visualize kidneys or bladder? UOP continues to be minimal Potassium WNL Plan Renal dose antibiotics Continue for follow UOP and BMP Avoid nephrotoxins as possible. Continue Fosrenol and calcitriol Hemodialysis today UF of 1.5 liters Hypocalcemia calcium gluconate ordered Hemodialysis today with afib RVR and hypotension may benefit from CVVHD will assess tomorrow. (2) Respiratory failure ICD Codes: J96.90 - Respiratory failure, unspecified, unspecified whether with hypoxia or hypercapnia Plan: Intubated weaning per CC (Adeola Velez) Problem List: (1) DAVID (acute kidney injury) ICD Codes: N17.9 - Acute kidney failure, unspecified Plan: Acute kidney injury most likely related to prerenal vs acute tubular necrosis, either from the infection or related to his cardiac status and cardiac arrest. Renal US unable to visualize kidneys or bladder? UOP continues to be minimal Potassium WNL Plan Renal dose antibiotics Continue for follow UOP and BMP Avoid nephrotoxins as possible. Continue Fosrenol and calcitriol Hemodialysis today UF of 1.5 liters Hypocalcemia calcium gluconate ordered Hemodialysis today with afib RVR and hypotension may benefit from CVVHD will assess tomorrow. Patient seen and examined, agree with above. BP is on lower side, may will need CVVHD. (2) Respiratory failure ICD Codes: J96.90 - Respiratory failure, unspecified, unspecified whether with hypoxia or hypercapnia Plan: Intubated weaning per CC (America Vela MD) Adeola Velez Dec 10, 2017 13:29 America Vela MD Dec 13, 2017 18:29
[2017-12-10] MEDS ORDERED: CALCIUM GLUCONATE INJ 1 GM in SODIUM CHLORIDE 0.9% INJ 100 ML IV ONE (13:30)
--- NOTE | 2017-12-10 13:37 | HHI.IDPN ---
Note Infectious Disease Note Patient on the ventilator. Awake. Developed atrial fibrillation with rapid ventricular response. Levophed was discontinued. Phenylephrine started. Afebrile. White blood cell count remains markedly elevated. Repeat urine culture has no growth. Repeat blood culture pending. Repeat sputum culture has multiple resistant Pseudomonas aeruginosa. Wound culture from 12/08 has Nette. Previous urine culture on 11/28 had Nette. Patient was treated with Diflucan. Chest tube in place on the right due to pneumothorax. Ultimately 30 cc drained over the last 12 hours. 77-year-old, white male who presents to the Emergency Department with shortness of breath. The patient has a history of COPD and CHF. He usually uses CPAP at the assisted living facility. He was noted to have been developing coughing and shortness of breath over the past couple of days, and his states that he was coughing a lot yesterday and bringing up mostly phlegm and that he was restless and could not sleep. Recently treated at [facility] for pneumonia due to methicillin-resistant Staphylococcus aureus. PAST MEDICAL HISTORY: COPD, CHF, atrial fibrillation, insulin-dependent diabetes mellitus, hypertension, hyperlipidemia, gastroesophageal reflux, gastroparesis, iron deficiency anemia, oxygen-dependent. PAST SURGICAL HISTORY: Right knee surgery, right carpal tunnel release, cardiac ablation treatment 2002. ALLERGIES: ASPIRIN, CODEINE. MEDICATIONS: Current Medications Medications (Trade) Dose Ordered Sig/Yani Route PRN Reason Start Time Stop Time Status Last Admin Dose Admin Sodium Chloride (NS Flush) 2 ml UNSCH PRN IV FLUSH FLUSH AFTER USING IV ACCESS 11/14/17 15:45 11/17/17 14:05 Sodium Chloride (NS Flush) 2 ml BID IV FLUSH 11/14/17 21:00 12/09/17 20:06 Ondansetron HCl (Zofran Inj) 4 mg Q6H PRN IV PUSH NAUSEA OR VOMITING 11/14/17 15:45 11/18/17 16:03 Miscellaneous Information 1 Q361D XX 11/14/17 15:45 11/14/17 15:45 Chlorhexidine Gluconate (Chlorhexidine 2% Cloth) Taper DAILY@04 TOP 11/15/17 04:00 11/11/18 03:59 12/07/17 04:00 Chlorhexidine Gluconate (Chlorhexidine 2% Cloth) 3 pack UNSCH PRN TOP HYGIENIC CARE 11/14/17 15:45 Senna/Docusate Sodium (Ricarda-Colace) 1 tab BID PO 11/14/17 21:00 12/09/17 20:06 Magnesium Hydroxide (Milk Of Magnesia Liq) 30 ml Q12H PRN PO Mild constipation 11/14/17 15:45 Sennosides (Senokot) 17.2 mg Q12H PRN PO Moderate constipation 11/14/17 15:45 Bisacodyl (Dulcolax Supp) 10 mg DAILY PRN RECTAL SEVERE CONSITIPATION 11/14/17 15:45 Lactulose (Lactulose Liq) 30 ml DAILY PRN PO SEVERE CONSITIPATION 11/14/17 15:45 Apixaban (Eliquis) 5 mg BID PO 11/14/17 21:00 Future Hold 11/27/17 20:17 Atorvastatin Calcium (Lipitor) 80 mg HS PO 11/14/17 21:00 Future Hold 12/05/17 19:49 Digoxin (Lanoxin) 0.125 mg DAILY PO 11/15/17 09:00 Future Hold 11/17/17 08:24 Diltiazem HCl (Cardizem) 60 mg QID PO 11/14/17 18:00 Future Hold 12/06/17 08:44 Patient Own Medication PT OWN MED: [facility]... HS INH 11/14/17 21:00 Future Hold Hydralazine HCl (Apresoline Inj) 20 mg Q4H PRN IV PUSH SYS BP GREATER THAN 160 MMHG 11/17/17 12:00 11/22/17 07:38 Budesonide/ Formoterol Fumarate (Symbicort 160-4.5 Mcg Inh) 2 puff Q12HR INH 11/18/17 21:00 12/08/17 21:34 Chlorhexidine Gluconate (Peridex 0.12% Liq) 15 ml BID@08,20 MT 11/19/17 08:00 12/10/17 08:53 Albuterol/ Ipratropium (Duoneb Neb) 1 ampule Q2HR NEB PRN INH WHEEZING 11/18/17 22:30 12/03/17 04:07 Famotidine (Pepcid) 10 mg BID PO 11/22/17 21:00 12/10/17 08:50 Insulin Aspart (NovoLOG SUPPLEMENTAL SCALE) 1 Q4HR SQ 11/26/17 16:00 12/09/17 15:20 Dextrose (D50w (Vial) Inj) 25 ml UNSCH PRN IV HYPOGLYCEMIA-SEE COMMENTS 11/26/17 15:30 12/04/17 01:18 Glucagon (Glucagon Inj) 1 mg UNSCH PRN IM/SQ HYPOGLYCEMIA-SEE COMMENTS 11/26/17 15:30 Fentanyl Citrate 250 ml @ 5 mls/hr TITRATE PRN IV SEDATION 11/27/17 13:45 12/03/17 08:58 Heparin Sodium (Porcine) (Heparin Inj) 5,000 units Q12HR SQ 11/28/17 21:00 12/10/17 08:51 Metoprolol Tartrate (Lopressor Inj) 5 mg Q6H PRN IV PUSH heart rate greater than 135/mi 11/29/17 09:15 Sodium Chloride 1,000 ml @ 0 mls/hr Q0M PRN OTHER For Prime & Rinse Back 12/02/17 09:30 12/08/17 16:50 Heparin Sodium (Porcine) (Heparin Inj) 8,000 units UNSCH PRN IV FLUSH WITH DIALYSIS 12/02/17 09:30 Sodium Chloride 1,000 ml @ 200 mls/hr Q5H PRN IV WITH DIALYSIS 12/02/17 09:30 Sodium Chloride 1,000 ml @ 0 mls/hr Q0M PRN OTHER WITH DIALYSIS 12/02/17 09:30 Mannitol (Mannitol Inj) 12.5 gm UNSCH PRN IV WITH DIALYSIS 12/02/17 09:30 12/08/17 16:50 Albumin Human 100 ml @ 60 mls/hr UNSCH PRN IV WITH DIALYSIS 12/02/17 09:30 12/10/17 11:46 Sodium Chloride (NS Flush) 5 ml UNSCH PRN IV FLUSH WITH DIALYSIS 12/02/17 09:30 12/08/17 16:51 Heparin Sodium (Porcine) (Heparin Inj) UNSCH PRN .XX WITH DIALYSIS 12/02/17 09:30 12/08/17 16:50 Gentamicin Sulfate (Gentamicin Inj) 20 mg UNSCH PRN OTHER WITH DIALYSIS 12/02/17 09:30 12/10/17 11:44 Ondansetron HCl (Zofran Inj) 4 mg UNSCH PRN IV PUSH WITH DIALYSIS 12/02/17 09:30 Acetaminophen (Tylenol) 650 mg UNSCH PRN PO for headach, pain, temp > 101F 12/02/17 09:30 Diphenhydramine HCl (Benadryl) 25 mg UNSCH PRN PO for hives/itching/anaphylaxis 12/02/17 09:30 Nitroglycerin (Nitrostat Sl) 0.4 mg UNSCH PRN SL CHEST PAIN 12/02/17 09:30 Clonidine (Catapres) 0.1 mg UNSCH PRN PO for BP > 180/100 X 2 readings 12/02/17 09:30 Epoetin Kvng (Epogen Inj) 4,000 units UNSCH PRN IV PUSH WITH DIALYSIS 12/02/17 09:30 12/10/17 11:45 Gelatin (Gelfoam 12 Mm/7 Mm Top) 1 foam UNSCH PRN TOP SEE LABEL COMMENTS 12/02/17 09:30 Sodium Chloride (NS Flush) UNSCH PRN IV FLUSH SEE PROTOCOL 12/02/17 11:15 Heparin Sodium (Porcine) (Heparin Inj) UNSCH PRN IV FLUSH SEE PROTOCOL 12/02/17 11:15 Micafungin Sodium 150 mg/Sodium Chloride 100 ml @ 100 mls/hr Q24H IV 12/06/17 12:00 12/10/17 13:23 Hydrocortisone Sodium Succinate (SoluCORTEF INJ) 50 mg Q12H IV PUSH 12/07/17 23:00 12/10/17 13:23 Insulin Detemir (Levemir Inj) 5 units Q12HR SQ 12/07/17 12:00 12/10/17 08:52 Lanthanum Carbonate (Fosrenol Chew) 500 mg TID CHEW 12/07/17 18:00 12/10/17 13:23 Calcitriol (Rocaltrol) 0.5 mcg DAILY PO 12/08/17 09:00 12/10/17 08:50 Ceftolozane/ Tazobactam 150 mg/ Sodium Chloride 100 ml @ 100 mls/hr Q8H IV 12/08/17 23:00 12/10/17 06:09 Levofloxacin/ Dextrose 50 ml @ 50 mls/hr Q24H IV 12/08/17 16:00 12/09/17 15:18 Norepinephrine Bitartrate 250 ml @ 7.5 mls/hr TITRATE PRN IV Blood pressure management 12/08/17 21:00 12/10/17 03:00 Phenylephrine HCl 40 mg/Dextrose 500 ml @ 30 mls/hr TITRATE PRN IV Blood Pressure Management 12/10/17 10:15 12/10/17 10:30 Terbutaline Sulfate (Brethine Inj) 1 mg UNSCH PRN SQ FOR EXTRAVASATION PROTOCOL 12/10/17 10:15 Calcium Gluconate 1 gm/Sodium Chloride 110 ml @ 110 mls/hr ONCE ONCE IV 12/10/17 13:30 12/10/17 14:29 OBJECTIVE: Vital Signs Date Time Temp Pulse Resp B/P (MAP) Pulse Ox O2 Delivery O2 Flow Rate FiO2 12/10/17 12:00 98.4 128 20 115/58 (77) 97 12/10/17 12:00 35 12/10/17 12:00 128 12/10/17 11:08 100 35 12/10/17 10:30 136 95/50 12/10/17 10:00 135 12/10/17 08:00 98.2 87 20 102/58 (73) 99 12/10/17 08:00 35 12/10/17 08:00 86 12/10/17 07:20 100 35 12/10/17 04:03 99 35 12/10/17 04:00 35 12/10/17 04:00 97.7 86 20 96/55 (69) 100 12/10/17 03:00 86 114/56 12/10/17 00:07 99 35 12/10/17 00:00 35 12/10/17 00:00 97.6 90 20 108/57 (74) 100 12/09/17 21:03 100 35 12/09/17 20:00 35 12/09/17 20:00 97.9 89 20 100/56 (71) 98 12/09/17 18:00 79 12/09/17 16:00 85 12/09/17 16:00 35 12/09/17 16:00 97.3 90 20 123/61 (81) 98 12/09/17 15:00 82 93/52 12/09/17 14:59 99 35 12/09/17 14:00 87 Laboratory Tests Test 12/09/17 03:10 12/10/17 06:23 White Blood Count 30.0 TH/MM3 32.8 TH/MM3 Red Blood Count 3.01 MIL/MM3 3.35 MIL/MM3 Hemoglobin 8.0 GM/DL 8.9 GM/DL Hematocrit 25.6 % 28.2 % Mean Corpuscular Volume 85.0 FL 84.0 FL Mean Corpuscular Hemoglobin 26.5 PG 26.6 PG Mean Corpuscular Hemoglobin Concent 31.2 % 31.6 % Red Cell Distribution Width 20.1 % 20.2 % Platelet Count 52 TH/MM3 42 TH/MM3 Mean Platelet Volume 10.0 FL 9.4 FL Neutrophils (%) (Auto) 94.2 % 89.5 % Lymphocytes (%) (Auto) 3.0 % 6.0 % Monocytes (%) (Auto) 2.7 % 4.3 % Eosinophils (%) (Auto) 0.0 % 0.0 % Basophils (%) (Auto) 0.1 % 0.2 % Neutrophils # (Auto) 28.3 TH/MM3 29.4 TH/MM3 Lymphocytes # (Auto) 0.9 TH/MM3 2.0 TH/MM3 Monocytes # (Auto) 0.8 TH/MM3 1.4 TH/MM3 Eosinophils # (Auto) 0.0 TH/MM3 0.0 TH/MM3 Basophils # (Auto) 0.0 TH/MM3 0.1 TH/MM3 CBC Comment AUTO DIFF AUTO DIFF Differential Total Cells Counted 100 100 Neutrophils % (Manual) 94 % 86 % Band Neutrophils % 2 % 3 % Lymphocytes % 1 % 5 % Monocytes % 3 % 6 % Neutrophils # (Manual) 28.8 TH/MM3 29.2 TH/MM3 Nucleated Red Blood Cells 1 /100 WBC 2 /100 WBC Differential Comment FINAL DIFF MANUAL FINAL DIFF MANUAL Platelet Estimate LOW LOW Platelet Morphology Comment NORMAL NORMAL Ovalocytes 1+ Laboratory Tests Test 12/09/17 03:10 12/10/17 06:49 Blood Urea Nitrogen 98 MG/DL 119 MG/DL Creatinine 3.66 MG/DL 4.12 MG/DL Random Glucose 225 MG/DL 120 MG/DL Total Protein 4.9 GM/DL 5.0 GM/DL Albumin 2.7 GM/DL 2.5 GM/DL Calcium Level 6.2 MG/DL 5.8 MG/DL Alkaline Phosphatase 239 U/L 278 U/L Aspartate Amino Transf (AST/SGOT) 196 U/L 97 U/L Alanine Aminotransferase (ALT/SGPT) 124 U/L 105 U/L Total Bilirubin 2.0 MG/DL 1.3 MG/DL Sodium Level 139 MEQ/L 138 MEQ/L Potassium Level 4.4 MEQ/L 4.9 MEQ/L Chloride Level 100 MEQ/L 99 MEQ/L Carbon Dioxide Level 20.1 MEQ/L 20.2 MEQ/L Anion Gap 19 MEQ/L 19 MEQ/L Estimat Glomerular Filtration Rate 16 ML/MIN 14 ML/MIN Protein Corrected Calcium 7.2 MG/DL 6.7 MG/DL Microbiology Date/Time Source Procedure Growth Status 12/09/17 23:59 Blood Peripheral Aerobic Blood Culture Pending Received 12/09/17 23:59 Blood Peripheral Anaerobic Blood Culture Pending Received 12/09/17 23:50 Blood Peripheral Aerobic Blood Culture Pending Received 12/09/17 23:50 Blood Peripheral Anaerobic Blood Culture Pending Received 12/08/17 18:00 Urine Catheterized Urine Urine Culture - Final Nette Glabrata Complete Imaging: Chest X-Ray 12/09/17 0600 Signed Impressions: Service Date/Time: November 03:05 - CONCLUSION: Tiny right apical pneumothorax. Nikunj Oneil MD Head CT 12/08/17 0000 Signed Impressions: Service Date/Time: Friday, December 08, 2017 08:25 - CONCLUSION: Negative for acute process. Torin Dennison MD FACR Chest X-Ray 12/08/17 0000 Signed Impressions: Service Date/Time: Friday, December 08, 2017 10:25 - CONCLUSION: Right chest tube with increasing subcutaneous emphysema and trace pneumothorax. Torin Dennison MD FACR Chest X-Ray 12/07/17 0000 Signed Impressions: Service Date/Time: Thursday, December 07, 2017 21:21 - CONCLUSION: 1. Right- sided chest tube in place with no visualized pneumothorax. There is been interval decrease in subcutaneous emphysema over the right lateral chest wall. 2. Stable blunting of left costophrenic angle with hazy opacity remaining at the left lung base. Liang Jimenez MD Chest X-Ray 12/07/17 0000 Signed Impressions: Service Date/Time: Thursday, December 07, 2017 08:57 - CONCLUSION: 1. Right chest tube remains present and there is a potential small right apical pneumothorax present. Right chest wall subcutaneous emphysema is stable. 2. Stable left basilar opacity with blunting of the left costophrenic sulcus. Abdiel Kwon MD PHYSICAL EXAMINATION: GENERAL: Sedated. Awake. HEENT: No icterus. EOMI. moist mucosa. NECK: No swelling or adenopathy. LUNGS: Decreased breath sounds, slight rhonchi.. HEART: Regular without audible murmurs. ABDOMEN: Bowel sounds present, obese, soft. Non tender. EXTREMITIES: 3+ diffuse edema. Bullae at the lower extremities have broken. Cyanosis at the tips of the toes. The feet are warm. SKIN: No diffuse rash. NEUROLOGIC: Nonfocal. Following commands. PSYCHIATRIC: Calm and cooperative. IMPRESSION: 1. Sepsis. 2. Pneumonia Pseudomonas MDR. Latest sputum culture continues to have Pseudomonas. Could be colonization. However with his seriously ill clinical condition he may have ongoing pneumonia. 3. Acute respiratory failure. Vent dependent. Extubated previously and appears to have aspirated. 4. Leukocytosis. WBC remains increased. 5. Nette glabrata UTI. Persistent despite management with Diflucan. Latest urine culture negative. 6. Right-sided pneumothorax. Subcutaneous emphysema. 7. History of chronic obstructive pulmonary disease and recent chronic obstructive pulmonary disease exacerbation. 8. Renal failure. Receiving hemodialysis. 9. Elevated liver function tests. LFT is decreasing. Patient is very critically ill. RECOMMENDATIONS: 1. Continue Micafungin. Patient has been on broad-spectrum antibiotics and has potential for systemic fungal infection. LFTs increase could be due to Diflucan. Monitor liver function 2. Continue Zerbaxa for pneumonia. 3. Continue Levaquin. 4. Add metronidazole. 5. Monitor white blood cell count. 6. Monitor clinical status. Dr. Ramsay covering weekend. Discussed with RN. Discussed with at bedside. Tom Long MD Dec 10, 2017 13:37
--- NOTE | 2017-12-10 14:04 | RADRPT ---
EXAM DATE/TIME: 12/10/2017 13:07 [facility] COMPARISON: CHEST SINGLE AP, December 09, 2017, 3:05. INDICATIONS : Ventilator dependent respiratory failure. MEDICAL HISTORY : Chronic obstructive pulmonary disease. Congestive heart failure. atrial fibrillation, GERD, BPH, Diabetes, MRSA SURGICAL HISTORY : None. ENCOUNTER: Initial ACUITY: 1 month PAIN SCORE: Non-responsive. LOCATION: Bilateral chest FINDINGS: Stable ETT, bilateral IJ central lines and right mid hemithorax chest tube. There is very subtle apic al pneumothorax and persistent right chest wall subcutaneous emphysema. Mild bibasilar air space dise ase. Cardiomediastinal contours are stable. Remainder of the exam is unchanged. CONCLUSION: 1. Stable right-sided chest tube in place with very subtle apical pneumothorax and persistent right c hest wall emphysema. 2. Minimal bibasilar airspace disease, likely atelectasis. Anil Aldana MD on December 10, 2017 at 14:00 Board Certified Radiologist. This report was verified electronically.
[2017-12-10] MEDS: metroNIDAZOLE 500 MG TAB PO SCH ×2 (15:04→16:45)
[2017-12-10] MEDS: LEVOFLOXACIN 250 MG PREMIX INJ 50 ML IV SCH (16:45)
[2017-12-10] MEDS: PHENYLEPHRINE INJ 160 MG in DEXTROSE 5% IN WATE 500 ML INJ 484 ML IV PRN ×2 (21:49)
[2017-12-10] MEDS: RESP: ALBUTEROL 2.5 MG/IPRATROPIUM 0.5 MG NEB (PRN) INH (23:48)
[2017-12-11] VITALS (66 sets, daily range): BP systolic 65–130; BP diastolic 31–65; PULSE 87–144; RESP 20–31; TEMP 98–99.9; O2SAT 90–100
[2017-12-11] MEDS: CEFTOLOZANE-TAZOBACTAM INJ 150 MG in SODIUM CHLORIDE 0.9% INJ 100 ML IV SCH ×4 (00:18→23:00)
[2017-12-11] MEDS: HYDROCORTISONE SOD SUCCINATE 100 MG VIAL IV PUSH SCH ×3 (00:18→23:00)
[2017-12-11] MEDS: metroNIDAZOLE 500 MG TAB PO SCH ×4 (00:24→16:46)
[2017-12-11] MEDS: INSULIN ASPART SUPPLEMENTAL SCALE SQ SCH ×6 (00:24→20:09)
[2017-12-11] MEDS: RESP: ALBUTEROL 2.5 MG/IPRATROPIUM 0.5 MG NEB (PRN) INH ×2 (02:50→19:37)
[2017-12-11 03:52] LABS: BASOPHIL # 0.1 TH/MM3 (0-0.2); BASOPHIL % 0.2 % (0.0-2.0); HEMATOCRIT 22.9 % (39.0-51.0); HEMOGLOBIN 7.3 GM/DL (13.0-17.0); LYMPH % 5.3 % (9.0-44.0); LYMPHOCYTE # 1.5 TH/MM3 (1.0-4.8); MEAN CELL VOLUME 84.1 FL (80.0-100.0); MEAN CORPUSCULAR HEMOGLOBIN 26.8 PG (27.0-34.0); MEAN CORPUSCULAR HGB CONC 31.8 % (32.0-36.0); MONO % 4.4 % (0.0-8.0); MONOCYTE # 1.3 TH/MM3 (0-0.9); NEUT % 90.1 % (16.0-70.0); PLATELET COUNT 39 TH/MM3 (150-450); RED BLOOD COUNT 2.72 MIL/MM3 (4.50-5.90); RED CELL DISTRIBUTION WIDTH 19.4 % (11.6-17.2); WHITE BLOOD COUNT 28.8 TH/MM3 (4.0-11.0)
[2017-12-11] MEDS: CHLORHEXIDINE GLUCONATE 2 % 1 PACK (2 CLOTHS) TOP SCH (04:00)
[2017-12-11 04:10] LABS: ALBUMIN 3.3 GM/DL (3.4-5.0); BICARBONATE 25.9 MEQ/L (21.0-32.0); CALCIUM 6.2 MG/DL (8.5-10.1); CREATININE 3.12 MG/DL (0.60-1.30); TOTAL BILIRUBIN ADULT 1.3 MG/DL (0.2-1.0); TOTAL PROTEIN 5.2 GM/DL (6.4-8.2)
[2017-12-11 04:12] LABS: CALCIUM-PROTEIN CORRECTED 7.1 MG/DL (8.5-10.1)
[2017-12-11] MEDS ORDERED: CALCIUM GLUCONATE INJ 1 GM in DEXTROSE 5% IN WATER 100ML INJ 100 ML IV ONE ×2 (06:30)
[2017-12-11 07:30] LABS: OVALOCYTES 1+ (NORMAL)
[2017-12-11] MEDS: DOCUSATE SODIUM 50 MG/SENNA 8.6 MG TAB PO SCH ×2 (09:00→20:10)
[2017-12-11] MEDS: HEPARIN SODIUM - SQ 10,000 UNITS/ML VIAL SQ SCH (09:00)
[2017-12-11] MEDS: CALCITRIOL 0.25 MCG CAP PO SCH (09:00)
[2017-12-11] MEDS: INSULIN DETEMIR 100 UNITS/ML VIAL SQ SCH ×2 (09:00→20:09)
[2017-12-11] MEDS: BUDESONIDE-FORMOTEROL 160/4.5 MCG INHALER INH SCH ×2 (09:10→19:37)
[2017-12-11] MEDS: FAMOTIDINE 20 MG TAB PO SCH ×2 (09:39→20:10)
[2017-12-11] MEDS: LANTHANUM CARBONATE 500 MG CHEWABLE TABLET CHEW SCH ×3 (09:40→16:46)
[2017-12-11] MEDS: CHLORHEXIDINE 0.12% (ORAL KIT) 15 ML CUP MT SCH ×2 (09:46→20:00)
[2017-12-11] MEDS: SODIUM CHLORIDE 0.9% FLUSH 10 ML FLUSH IV FLUSH SCH ×2 (09:48→20:10)
[2017-12-11] MEDS: PHENYLEPHRINE INJ 160 MG in DEXTROSE 5% IN WATE 500 ML INJ 484 ML IV PRN ×2 (09:51)
--- NOTE | 2017-12-11 10:08 | HHI.NPPN ---
Subjective Renal Failure: Acute History of Present Illness This is a 77-year-old male with past medical history of ischemic heart disease, atrial fibrillation, congestive heart failure, possibly diastolic dysfunction, diabetes mellitus, chronic obstructive pulmonary disease, was admitted on 11/14 with respiratory distress. Nephrology was called to see the patient because of elevated BUN and creatinine. The patient has creatinine of 1.1 on admission, which increased after 2 or 3 to 1.3-1.5 and for the last 2 days, it has been going up and now it is 2.8. The patient was initially diagnosed with pneumonia and was started on antibiotics and then later on, patient developed respiratory failure and was intubated. He was also found to have asystole on 11/27 for 3 minutes and CPR was done with ACLS protocol, and it was shown that he has large right-sided pneumothorax. The blood pressure has been stable and there are no significant hypotensive episodes documented. Most of the history was taken from he patient' s chart. Additional Remarks Patient is intubated. HD done yesterday with removal of 1500 ml in UF. Review of Systems General General Remarks Unable to do ROS as patient is intubated Objective Data Data Vital Signs Date Time Temp Pulse Resp B/P (MAP) Pulse Ox O2 Delivery O2 Flow Rate FiO2 12/11/17 09:51 110 110/62 12/11/17 09:12 100 35 12/11/17 08:00 120 12/11/17 08:00 35 12/11/17 08:00 98.6 122 31 103/60 (74) 90 12/11/17 06:00 108 12/11/17 04:02 99 35 12/11/17 04:00 99.7 124 20 109/53 (71) 99 12/11/17 04:00 35 12/11/17 04:00 124 12/11/17 03:30 126 102/53 12/11/17 02:00 111 12/11/17 00:00 99.9 124 20 107/58 (74) 100 12/11/17 00:00 35 12/11/17 00:00 124 12/10/17 23:42 100 35 12/10/17 22:00 131 12/10/17 21:49 119 94/52 12/10/17 20:30 123 78/48 12/10/17 20:06 99 35 12/10/17 20:00 35 12/10/17 20:00 126 12/10/17 20:00 98.5 126 26 84/45 (58) 99 12/10/17 18:00 133 12/10/17 16:00 35 12/10/17 16:00 98.1 122 20 86/54 (65) 98 12/10/17 16:00 130 12/10/17 16:00 73/36 12/10/17 14:00 128 12/10/17 12:00 98.4 128 20 115/58 (77) 97 12/10/17 12:00 35 12/10/17 12:00 128 12/10/17 11:08 100 35 12/10/17 10:30 136 95/50 -: 12/11/17 0335 12/11/17 0335 Tubes & Lines: Vas-Cath, [place] Physical Exam General Appearance: No Acute Distress, Obese Eyes Eye Exam: Pupils Equal Pulmonary Resp Exam: Breath Sounds Equal Cardiology CV Exam: Regular Gastrointestinal/Abdomen GI Exam: Soft, Non-Tender, Distended Genitourinary Exam: Flank Non-Tender Integumentary Skin Exam: Clear, Warm Extremeties Extremities Exam: Moderate Edema Neurologic Neuro Exam: Awake Assessment/Plan Assessment Summary: DAVID/Acute Renal Failure Problem List: (1) DAVID (acute kidney injury) ICD Codes: N17.9 - Acute kidney failure, unspecified Plan: Acute kidney injury most likely related to prerenal vs acute tubular necrosis, either from the infection or related to his cardiac status and cardiac arrest. Renal US unable to visualize kidneys or bladder? UOP continues to be minimal Plan Renal dose antibiotics. May need dialysis again today. Continue for follow UOP and BMP Avoid nephrotoxins as possible. Would recommend to avoid IV Calcium when phosphorus is high. Consider checking 25 hydroxy Vitamin D level. (2) Respiratory failure ICD Codes: J96.90 - Respiratory failure, unspecified, unspecified whether with hypoxia or hypercapnia Plan: Intubated weaning per CC Terrell Ruvalcaba MD Dec 11, 2017 10:08
--- NOTE | 2017-12-11 10:18 | HHI.CCPN ---
Subjective Remarks/Hospital Course This is a 77-year-old male with a medical history significant for COPD, CHF, A. fib, diabetes, that presented to emergency department from [facility] for evaluation of worsening shortness of breath over the last 3 days. The patient was been given Solu-Medrol 125 mg and 2 albuterol treatments enroute to ED. Upon presentation to the ED the patient was on a nonrebreather. He was tachypneic and tachycardic. Patient's medical history significant for MRSA pneumonia previously admitted on 10/27/16 for approximately 12 days at [facility]. The patient is normally on 2.5 L/m nasal cannula O2 home dependency, and he lives with ( normally) a PCO2 in the 80s according to his . Patient was then discharged to [facility], and then transferred to [facility] for rehabilitation. He has been on an unknown antibiotic per the family and steroids for the last 3 days. Laboratory and imaging studies were performed with noted elevation in CO2 The patient was given empiric antibiotics in the ED and placed on BiPAP. Critical care medicine was consulted. Subjective: 11/15: Patient maintained on BiPAP throughout the night O2 saturations 97-98% on FiO2 of 0.40. Hemodynamically stable. Attempts made to wean patient to nasal cannula this a.m. unsuccessful, patient's O2 saturation in the 70s, patient placed back on BiPAP. Chest x-ray pending WBC count significantly diminished, leukocytosis resolved. Patient extremely anxious, Precedex infusion initiated. 11/16: Late entry note. Patient seen 10 AM. Overnight the patient converted to A. fib RVR, despite being on Cardizem 4 times a day and metoprolol twice a day- home medications, the patient received IV Cardizem followed by amiodarone infusion. Per report the patient became hypotensive, Cardizem discontinued. Amiodarone continued. Early this a.m. patient was resting comfortably A. fib rate controlled rate. The patient suddenly converted to A. fib RVR heart rate 150s-160s, acute hypoxemic respiratory failure, requiring intubation. The patient was intubated uneventfully and continues on amiodarone at 0.5 mg/hour, rate now controlled in conjunction with sedation. Cardiology consulted, his memorial marker designer is Dr. Reyes X-ray revealed lung consolidation improved, chest x- ray clear. Plan for CPAP trials in a.m.. 11/17: No acute events overnight. Patient had 1 short 8 beat run of V. tach last evening was self resolution, electrolytes within normal limits. The patient continues on amiodarone 0.5 mg/hr. CPAP trials initiated this a.m.. Tube feeds initiated at trickle feeds. Patient converted to sinus rhythm at 2 AM. 11/18 Patient remains sedated and intubated. Afebrile. 11/19 Patient was extubated yesterday however last night he was noted to choke on water provided by the family. Stat ABG demonstrated acute hypercapnic respiratory failure and was emergently intubated. Currently sedated and intubated. 11/20 Patient remains intubated on Fentanyl drip however he si awake and alert. Afebrile. 11/21 Patient is awake and alert placed on CPAP with PS:15, PEEP:5. Afebrile. 11/22 Patient remains intubated , did not tolerate CPAP trials yesterday as he became tachycardic and hypertensive. On no sedation awake and alert. 11/23 No events overnight, off sedation. 11/24: Resting comfortably on mechanical ventilation currently. Daily C Pap trials ongoing. 11/25: Sedated with Precedex, orally intubated on mechanical ventilation. Daily C Pap trials 11/26: Sedated with Precedex, orally intubated on mechanical ventilation. Got tachypneic with CPAP trial today hence placed back on PRVC. Spiked a fever, garcia cultures ordered. Went into A. fib with RVR subsequently for which being initiated on amiodarone bolus followed by drip and Lopressor 5 mg IV every 6 as needed for 11/27: This morning patient developed bradycardia followed by asystole for which she had 3 minutes CPR with ACLS protocol with return of spontaneous circulation. Post code chest x-ray revealed moderate to large right pneumothorax for which a right pigtail catheter was placed by me however despite airleak patient continue have moderate to large pneumothorax hence a second right sided 28 Moroccan chest tube was placed to -40 cm water pressure. Air leaks 1+ in both pigtail catheter and chest tube. Patient remains in a flutter currently. Dr. reyes evaluated patient as well following cardiac arrest. 11/28: Sedated, arousable, orally intubated on mechanical ventilation. Worsening renal function noted. MDR Pseudomonas in sputum. Right sided chest tube/ pigtail catheter with 1+ air leak in both. Subcutaneous emphysema noted over right side of face neck and right upper extremity. On 50% FiO2, PEEP +5. Poor urine output for which 500 cc and is bolus given earlier. Treated for hyperkalemia with Kayexalate PO, glucose insulin, calcium IV. 4/2: Remains sedated, arousable, orally intubated on mechanical ventilation. A. fib with RVR this morning for which she was loaded with amiodarone and initiated on amiodarone drip. Spiking fever 103.5. ID adjusting antibiotics. Stool for C. difficile ordered as he had some diarrhea today though received Kayexalate yesterday for hyperkalemia. Pigtail catheter on the right side appeared to be dislodged hence this was removed. 28 Moroccan chest tube in right pleural cavity repositioned. 11/30: Late entry note , patient seen at 12 noon. Creatinine continues to trend upward.Sedated but easily arousable. 12/01: Patient lightly sedated, following commands this a.m.. Creatinine noted increased, possible dialysis consideration for tomorrow. Patient to be diuresed today. CPAP trial initiated failed after 5 minutes, repeat this afternoon. 12/02: Patient placed on Lasix infusion throughout the night . No renal improvement,creatinine worsened today , plan for Vas-Cath placement and IHD today. This extensive discussion with patient and plans for tracheostomy and PEG tube placement secondary to failure to wean. 12/03: Late entry note, patient seen at 11 am. Patient scheduled for PEG placement today by Dr. Iglesias. Patient continues to fail CPAP trials. Plan for tracheostomy in the near future 12/04: Late entry note . Patient seen earlier this am. Overnight the patient became hypoglycemic, secondary to n.p.o. status, post PEG placement. D10 was initiated at 30 cc/hr. Tube feeds reinitiated Jevity 1.5, 24 hours post PEG tube placed, D10 discontinued. Patient remains on fentanyl at 100 mics/hour, lightly sedated. Patient denies pain answering by nodding head to yes and no questions. Tracheostomy planned for Wednesday12/06/[address] Calderon. 12/05: Remains intubated sedated with 50 mcg of fentanyl. On attempted CPAP trial patient remained dyspneic. Significant neuromuscular weakness persist. Chest x-ray shows small right apical pneumothorax. Tentatively plan for tracheostomy tomorrow. Dr. Calderon has already been consulted 12/06 Patient remains intubated for possible trach today. On Levophed 12 mics. Afebrile. 12/07 No events overnight. Trach was placed on hold yesterday as patient was on Levophed. He is down to 5 mics today. Afebrile. 12/08 Patient remains intubated on no sedation. CT brain this morning showed no acute process. Off Levophed. 12/09 Patient was placed back on Levophed 6 mics. Afebrile. Remains intubated on no sedation. 12/10 Patient remains intubated. On Neosyn 40 mics went into Afib with RVR HR 128 12/11 Patient remains intubated. Now on Neosyn 200 mics ( MAP 86mmHg). s/p HD yesterday with 1.5L removed. T:99.7 Objective Vital Signs Date Time Temp Pulse Resp B/P (MAP) Pulse Ox O2 Delivery O2 Flow Rate FiO2 12/11/17 09:51 110 110/62 12/11/17 09:12 100 35 12/11/17 08:00 98.6 31 Intake and Output 12/11/17 12/11/17 12/12/17 08:00 16:00 00:00 Intake Total 536 ml Output Total 50 ml Balance 486 ml Result Diagram: 12/11/17 0335 12/11/17 0335 Other Results Laboratory Tests Test 12/10/17 13:30 12/11/17 03:35 Blood Gas Puncture Site RT RADIAL Blood Gas Patient Temperature 98.6 Blood Gas HCO3 23 mmol/L Blood Gas Base Excess -1.6 mmol/L Blood Gas Oxygen Saturation 95 % Arterial Blood pH 7.36 Arterial Blood Partial Pressure CO2 42 mmHg Arterial Blood Partial Pressure O2 115 mmHg Arterial Blood Oxygen Content 9.6 Vol % Arterial Blood Carboxyhemoglobin 1.2 % Arterial Blood Methemoglobin 1.5 % Blood Gas Hemoglobin 7.0 G/DL Oxygen Delivery Device VENTILATOR Blood Gas Ventilator Setting AC/20/550/PEEP5 Blood Gas Inspired Oxygen 35 % White Blood Count 28.8 TH/MM3 Red Blood Count 2.72 MIL/MM3 Hemoglobin 7.3 GM/DL Hematocrit 22.9 % Mean Corpuscular Volume 84.1 FL Mean Corpuscular Hemoglobin 26.8 PG Mean Corpuscular Hemoglobin Concent 31.8 % Red Cell Distribution Width 19.4 % Platelet Count 39 TH/MM3 Mean Platelet Volume 10.0 FL Neutrophils (%) (Auto) 90.1 % Lymphocytes (%) (Auto) 5.3 % Monocytes (%) (Auto) 4.4 % Eosinophils (%) (Auto) 0.0 % Basophils (%) (Auto) 0.2 % Neutrophils # (Auto) 26.0 TH/MM3 Lymphocytes # (Auto) 1.5 TH/MM3 Monocytes # (Auto) 1.3 TH/MM3 Eosinophils # (Auto) 0.0 TH/MM3 Basophils # (Auto) 0.1 TH/MM3 CBC Comment AUTO DIFF Differential Comment AUTO DIFF CONFIRMED Platelet Estimate LOW Platelet Morphology Comment NORMAL Ovalocytes 1+ Blood Urea Nitrogen 89 MG/DL Creatinine 3.12 MG/DL Random Glucose 184 MG/DL Total Protein 5.2 GM/DL Albumin 3.3 GM/DL Calcium Level 6.2 MG/DL Alkaline Phosphatase 249 U/L Aspartate Amino Transf (AST/SGOT) 68 U/L Alanine Aminotransferase (ALT/SGPT) 74 U/L Total Bilirubin 1.3 MG/DL Sodium Level 139 MEQ/L Potassium Level 3.4 MEQ/L Chloride Level 99 MEQ/L Carbon Dioxide Level 25.9 MEQ/L Anion Gap 14 MEQ/L Estimat Glomerular Filtration Rate 19 ML/MIN Protein Corrected Calcium 7.1 MG/DL Imaging Last Impressions Chest X-Ray 12/10/17 0000 Signed Impressions: Service Date/Time: Sunday, December 10, 2017 13:07 - CONCLUSION: 1. Stable right-sided chest tube in place with very subtle apical pneumothorax and persistent right chest wall emphysema. 2. Minimal bibasilar airspace disease, likely atelectasis. Anil Aldana MD Liver Ultrasound 12/09/17 0000 Signed Impressions: Service Date/Time: November 19:18 - CONCLUSION: 1. Limited suboptimal examination with only a small portion of the liver visualized. 2. The gallbladder and common bile duct could not be visualized. The pancreas is not evaluated. 3. Left pleural effusion. Liang Jimenez MD Head CT 12/08/17 0000 Signed Impressions: Service Date/Time: Friday, December 08, 2017 08:25 - CONCLUSION: Negative for acute process. Torin Dennison MD FACR Catheter Placement X-Ray 12/02/17 0000 Signed Impressions: Service Date/Time: November 10:47 - CONCLUSION: Uncomplicated right internal jugular Vas-Cath placement as above. incidental note is made of subcutaneous emphysema within the chest wall and neck Con Dennison MD Lower Extremity Ultrasound 11/29/17 0000 Signed Impressions: Service Date/Time: Wednesday, November 29, 2017 22:02 - CONCLUSION: Normal examination. Abdiel Mcintyre MD Renal Ultrasound 11/28/17 0000 Signed Impressions: Service Date/Time: Tuesday, November 28, 2017 20:30 - CONCLUSION: Nondiagnostic exam. Rashad Bose MD Objective Remarks GENERAL: Patient is 77 yo intubated awake nodding yes and no to questions, awake alert SKIN: Warm and dry. HEAD: Normocephalic. Mild subcutaneous emphysema involving right side of face neck shoulder and arm. EYES: No scleral icterus. No injection or drainage. NECK: Supple, trachea midline. No JVD or lymphadenopathy. CARDIOVASCULAR: S1-S2 irregularly irregular, no gallop or murmur. RESPIRATORY: Orally intubated on mechanical ventilation, air entry decreased bilaterally, scattered rhonchi bilaterally, no wheezing. Right sided chest tube with 1+ airleak. Subcutaneous emphysema or right chest wall, neck, right side of face and right upper extremity. GASTROINTESTINAL: Abdomen soft, non-tender, nondistended. MUSCULOSKELETAL: Bilateral peripheral edema +2 Neuro: Awake, orally intubated, on mechanical ventilation, follows simple commands intermittently A/P Problem List: (1) A-fib ICD Code: I48.91 - Unspecified atrial fibrillation (2) CHF (congestive heart failure) ICD Code: I50.9 - Heart failure, unspecified Status: Chronic (3) HTN (hypertension) ICD Code: I10 - Essential (primary) hypertension Status: Chronic (4) ADRIAN (obstructive sleep apnea) ICD Code: G47.33 - Obstructive sleep apnea (adult) (pediatric) Status: Chronic (5) MRSA pneumonia ICD Code: J15.212 - Pneumonia due to Methicillin resistant Staphylococcus aureus Status: Acute (6) Diabetes mellitus type 2, insulin dependent ICD Code: E11.9 - Type 2 diabetes mellitus without complications; Z79.4 - penitentiary (current) use of insulin Status: Chronic (7) COPD (chronic obstructive pulmonary disease) ICD Code: J44.9 - Chronic obstructive pulmonary disease, unspecified Status: Acute (8) Respiratory distress ICD Code: R06.03 - Acute respiratory distress Status: Acute (9) Leukocytosis ICD Code: D72.829 - Elevated white blood cell count, unspecified Status: Acute (10) Lung consolidation ICD Code: J18.1 - Lobar pneumonia, unspecified organism Status: Acute (11) Anxiety ICD Code: F41.9 - Anxiety disorder, unspecified Status: Chronic (12) Failure to wean from mechanical ventilation ICD Code: Z99.11 - Dependence on respirator [ventilator] status Assessment and Plan Plan by systems: Neurologic: Possible Anoxic encephalopathy following cardiac arrest Anxiety disorder Off sedation, monitor neuro status, Neuro checks per ICU protocol EEG: Mild- mod encephalopathy. Neuro is following- Dr. Anne. CT brain 12/08 no acute process Hold gabapentin 300mmg q HS home med Respiratory: Acute respiratory failure on mechanical ventilation- extubated and reintubated night of 11/18 after he was noted to choke on water provided by family. COPD exacerbation Pneumonia-MRSA, MDR Pseudomonas Right sided pneumothorax following CPR status post pigtail catheter/chest tube placement 11/27 Obstructive sleep apnea Home O2 dependency Continue with vent support keep sats >92% Bronchodilators, HC 50mg IV Q12 Pulmonology - Dr Price, Right sided chest tube in place. Continue 28 F right chest tube to -40 cm water pressure with underwater seal. 12/02 general surgery consult for tracheostomy-plan for tracheostomy when stable CXR 12/10: right-sided chest tube in place with very subtle apical pneumothorax and persistent right chest wall emphysema. 2. Minimal bibasilar airspace disease likely atelectasis. Check CXR today Cardiovascular: A. fib RVR Cardiac arrest - asystole, status post CPR 11/27 History of CHF CAD Wean off Neosyn keep MAP>65mmHg. Lactic acid:2.2 on 12/07 Atorvastatin 80 daily on hold for elevated LFT's Cardiology - Dr. Reyes Echo showed EF 65-70% Renal: DAVID Monitor renal function, electrolytes replacement as needed Nephrology Dr. Ragland. 12/02 Vas-Cath placed for initiation of IHD . s/p HD 12/10 with 1.5L removed FEN/GI: Elevated LFT's GERD Monitor LFT's, US liver on 12/06: non diagnostic study US liver 12/09 limited study Hepatitis profile is negative On tube feeds On Nepro @40cc/hr. Pepcid for GI prophylaxis Replete electrolytes per ICU 12/03 PEG tube placement ID: Pneumonia MRSA, MDR Pseudomonas Leukocytosis ID following- Antibiotics per ID (on Micafungin, Zerbaxa, Flagyl and Levaquin) Stool for C. difficile negative on 11/29 and 12/06 Pertinent cultures 12/09 BC: NGTD 411 Urine cx: No growth 12/06 Sputum cx: Pseudomonas MDR 11/16 sputum cultures- Kleb pneumonia 11/26 sputum cultures growing multidrug resistant Pseudomonas/MRSA 11/28 urine culture growing yeast 11/26 blood culture neg Heme Monitor CBC, check Hep PLT ab, check Hemoccult stool Endocrine: Glucose monitoring per ICU protocol -- SSI(high scale) Levemir 5u Q12 and taper IV steroids Prophylaxis: GI Prophylaxis Famotidine BID DVT Prophylaxis -- SCDs Held home dose Eliquis 5 mg BID on 11/27 in view of anticipated procedures hold Heparin SQ in setting of worsening thrombocytopenia Lines: Left IJ central line placed 11/28, Palliative care is following Level 3 Problem Qualifiers (1) COPD (chronic obstructive pulmonary disease): Qualified Codes: J44.9 - Chronic obstructive pulmonary disease, unspecified (2) Leukocytosis: Qualified Codes: D72.829 - Elevated white blood cell count, unspecified Carmen Richard MD Dec 11, 2017 10:18
[2017-12-11 11:02] LABS: HEMATOCRIT 22.9 % (39.0-51.0); HEMOGLOBIN 7.2 GM/DL (13.0-17.0); MEAN CELL VOLUME 84.2 FL (80.0-100.0); MEAN CORPUSCULAR HEMOGLOBIN 26.5 PG (27.0-34.0); MEAN CORPUSCULAR HGB CONC 31.5 % (32.0-36.0); PLATELET COUNT 29 TH/MM3 (150-450); RED BLOOD COUNT 2.72 MIL/MM3 (4.50-5.90); RED CELL DISTRIBUTION WIDTH 19.3 % (11.6-17.2); WHITE BLOOD COUNT 27.5 TH/MM3 (4.0-11.0)
[2017-12-11 11:12] LABS: INTERNATIONAL NORMALIZED RATIO 1.2 RATIO; PROTHROMBIN TIME - PATIENT 12.2 SEC (9.8-11.6)
--- NOTE | 2017-12-11 11:31 | RADRPT ---
EXAM DATE/TIME: 12/11/2017 10:51 [facility] COMPARISON: CHEST SINGLE AP, December 10, 2017, 13:07. INDICATIONS : Respiratory failure, shortness of breath. MEDICAL HISTORY : Cardiovascular disease. Hypertension Chronic obstructive pulmonary disease. CHF. Diabetes. SURGICAL HISTORY : None. ENCOUNTER: Subsequent ACUITY: 2 weeks PAIN SCORE: Non-responsive. LOCATION: Bilateral chest FINDINGS: Right chest tube in good position with moderate subcutaneous emphysema. No pneumothorax. Central li long and ET tube in good position. Minimal parenchymal changes left base. CONCLUSION: Stable chest with moderate subcutaneous emphysema and no pneumothorax. Torin Dennison MD FACR on December 11, 2017 at 11:29 Board Certified Radiologist. This report was verified electronically.
[2017-12-11 11:36] LABS: BANDS 1 % (0-6); LYMPHOCYTES 7 % (9-44); MONOCYTES 2 % (0-8); POLYS (SEG NEUTROPHILS) 90 % (16-70); TOXIC GRANULATION 2+ (NORMAL)
[2017-12-11] MEDS: MICAFUNGIN INJ 150 MG in SODIUM CHLORIDE 0.9% INJ 100 ML IV SCH (12:23)
--- NOTE | 2017-12-11 12:48 | EKG ---
Date Performed: 12/10/2017 Time Performed: 10:05:28 PTAGE: 77 years EKG: Atrial fibrillation with rapid ventricular response Lead(s) unsuitable for analysis: V1 Pos sible anterior infarct - age undetermined Inferior/lateral ST-T changes may be due to myocardial isch emia Abnormal ECG Compared to PREVIOUS TRACING , ST changes more prominent. Clinical correlation needed. PREVIOUS SOPHIA N11/27/2017 10.00 DOCTOR: Riki Cutler Interpretating Date/Time 12/11/2017 12:47:19
--- NOTE | 2017-12-11 16:14 | HHI.IDPN ---
Subjective Subjective Remarks ID x cover for Dr Joseph chart was reviewepresents to the Emergency Department with shortness of breath. The patient has a history of COPD and CHF. He usually uses CPAP at the assisted living facility. He was noted to have been developing coughing and shortness of breath over the past couple of days, and his states that he was coughing a lot yesterday and bringing up mostly phlegm and that he was restless and could not sleep. Recently treated at [facility] for pneumonia due to methicillin-resistant Staphylococcus aureus. Patient on the ventilator. Awake. Developed atrial fibrillation with rapid ventricular response. On pressors Anuric. ARF, Receiving HD Afebrile. White blood cell count remains markedly elevated. Repeat urine culture has C. glabrata. Repeat blood culture negative @ 1 day Repeat sputum culture has multiple resistant Pseudomonas aeruginosa. Wound culture from 12/08 has Nette. Previous urine culture on 11/28 had Nette. Patient was treated with Diflucan. Chest tube in place on the right due to pneumothorax. Pt had small liquid BMs today He has impressive leukocytosis of 27 K, though his WBC and AC are going down Antibiotics AViCAZ micafungin flagyl Allergies: Coded Allergies: aspirin (Unverified Allergy, Severe, 11/14/17) codeine (Verified Allergy, Severe, 11/14/17) Objective . Vital Signs Date Time Temp Pulse Resp B/P (MAP) Pulse Ox O2 Delivery O2 Flow Rate FiO2 12/11/17 14:53 100 35 12/11/17 14:00 120 12/11/17 12:00 123 12/11/17 12:00 98.0 111 27 98/53 (68) 100 12/11/17 12:00 35 12/11/17 11:23 100 35 12/11/17 10:00 119 12/11/17 09:51 110 110/62 12/11/17 09:12 100 35 12/11/17 08:00 120 12/11/17 08:00 35 12/11/17 08:00 98.6 122 31 103/60 (74) 90 12/11/17 06:00 108 12/11/17 04:02 99 35 12/11/17 04:00 99.7 124 20 109/53 (71) 99 12/11/17 04:00 35 12/11/17 04:00 124 12/11/17 03:30 126 102/53 12/11/17 02:00 111 12/11/17 00:00 99.9 124 20 107/58 (74) 100 12/11/17 00:00 35 12/11/17 00:00 124 12/10/17 23:42 100 35 12/10/17 22:00 131 12/10/17 21:49 119 94/52 12/10/17 20:30 123 78/48 12/10/17 20:06 99 35 12/10/17 20:00 35 12/10/17 20:00 126 12/10/17 20:00 98.5 126 26 84/45 (58) 99 12/10/17 18:00 133 . Laboratory Tests Test 12/10/17 06:23 12/11/17 03:35 12/11/17 10:47 White Blood Count 32.8 TH/MM3 28.8 TH/MM3 27.5 TH/MM3 Red Blood Count 3.35 MIL/MM3 2.72 MIL/MM3 2.72 MIL/MM3 Hemoglobin 8.9 GM/DL 7.3 GM/DL 7.2 GM/DL Hematocrit 28.2 % 22.9 % 22.9 % Mean Corpuscular Volume 84.0 FL 84.1 FL 84.2 FL Mean Corpuscular Hemoglobin 26.6 PG 26.8 PG 26.5 PG Mean Corpuscular Hemoglobin Concent 31.6 % 31.8 % 31.5 % Red Cell Distribution Width 20.2 % 19.4 % 19.3 % Platelet Count 42 TH/MM3 39 TH/MM3 29 TH/MM3 Mean Platelet Volume 9.4 FL 10.0 FL 10.0 FL Neutrophils (%) (Auto) 89.5 % 90.1 % Lymphocytes (%) (Auto) 6.0 % 5.3 % Monocytes (%) (Auto) 4.3 % 4.4 % Eosinophils (%) (Auto) 0.0 % 0.0 % Basophils (%) (Auto) 0.2 % 0.2 % Neutrophils # (Auto) 29.4 TH/MM3 26.0 TH/MM3 Lymphocytes # (Auto) 2.0 TH/MM3 1.5 TH/MM3 Monocytes # (Auto) 1.4 TH/MM3 1.3 TH/MM3 Eosinophils # (Auto) 0.0 TH/MM3 0.0 TH/MM3 Basophils # (Auto) 0.1 TH/MM3 0.1 TH/MM3 CBC Comment AUTO DIFF AUTO DIFF AUTO DIFF Differential Total Cells Counted 100 100 Neutrophils % (Manual) 86 % 90 % Band Neutrophils % 3 % 1 % Lymphocytes % 5 % 7 % Monocytes % 6 % 2 % Neutrophils # (Manual) 29.2 TH/MM3 25.0 TH/MM3 Nucleated Red Blood Cells 2 /100 WBC Differential Comment FINAL DIFF MANUAL AUTO DIFF CONFIRMED FINAL DIFF MANUAL Platelet Estimate LOW LOW LOW Platelet Morphology Comment NORMAL NORMAL ENLARGED Ovalocytes 1+ 1+ Toxic Granulation 2+ Laboratory Tests Test 12/10/17 06:49 12/11/17 03:35 Blood Urea Nitrogen 119 MG/DL 89 MG/DL Creatinine 4.12 MG/DL 3.12 MG/DL Random Glucose 120 MG/DL 184 MG/DL Total Protein 5.0 GM/DL 5.2 GM/DL Albumin 2.5 GM/DL 3.3 GM/DL Calcium Level 5.8 MG/DL 6.2 MG/DL Alkaline Phosphatase 278 U/L 249 U/L Aspartate Amino Transf (AST/SGOT) 97 U/L 68 U/L Alanine Aminotransferase (ALT/SGPT) 105 U/L 74 U/L Total Bilirubin 1.3 MG/DL 1.3 MG/DL Sodium Level 138 MEQ/L 139 MEQ/L Potassium Level 4.9 MEQ/L 3.4 MEQ/L Chloride Level 99 MEQ/L 99 MEQ/L Carbon Dioxide Level 20.2 MEQ/L 25.9 MEQ/L Anion Gap 19 MEQ/L 14 MEQ/L Estimat Glomerular Filtration Rate 14 ML/MIN 19 ML/MIN Protein Corrected Calcium 6.7 MG/DL 7.1 MG/DL Microbiology Date/Time Source Procedure Growth Status 12/09/17 23:59 Blood Peripheral Aerobic Blood Culture - Preliminary NO GROWTH IN 1 DAY Resulted 12/09/17 23:59 Blood Peripheral Anaerobic Blood Culture - Final QNS - SEE AEROBE REPORT Resulted 12/09/17 23:50 Blood Peripheral Aerobic Blood Culture - Preliminary NO GROWTH IN 1 DAY Resulted 12/09/17 23:50 Blood Peripheral Anaerobic Blood Culture - Final QNS - SEE AEROBE REPORT Resulted 12/08/17 18:00 Urine Catheterized Urine Urine Culture - Final Nette Glabrata Complete Imaging Last Impressions Chest X-Ray 12/11/17 0000 Signed Impressions: Service Date/Time: Monday, December 11, 2017 10:51 - CONCLUSION: Stable chest with moderate subcutaneous emphysema and no pneumothorax. Torin Dennison MD FACR Liver Ultrasound 12/09/17 0000 Signed Impressions: Service Date/Time: November 19:18 - CONCLUSION: 1. Limited suboptimal examination with only a small portion of the liver visualized. 2. The gallbladder and common bile duct could not be visualized. The pancreas is not evaluated. 3. Left pleural effusion. Liang Jimenez MD Head CT 12/08/17 0000 Signed Impressions: Service Date/Time: Friday, December 08, 2017 08:25 - CONCLUSION: Negative for acute process. Torin Dennison MD FACR Catheter Placement X-Ray 12/02/17 0000 Signed Impressions: Service Date/Time: November 10:47 - CONCLUSION: Uncomplicated right internal jugular Vas-Cath placement as above. incidental note is made of subcutaneous emphysema within the chest wall and neck Con Dennison MD Lower Extremity Ultrasound 11/29/17 0000 Signed Impressions: Service Date/Time: Wednesday, November 29, 2017 22:02 - CONCLUSION: Normal examination. Abdiel Mcintyre MD Renal Ultrasound 11/28/17 0000 Signed Impressions: Service Date/Time: Tuesday, November 28, 2017 20:30 - CONCLUSION: Nondiagnostic exam. Rashad Bose MD Physical Exam GENERAL: Awake. On HD HEENT: No icterus. EOMI. moist mucosa. NECK: No swelling or adenopathy. LUNGS: Decreased breath sounds, + b/l rhonchi.. Chest tube in place on the right with serosang dc HEART: Regular without audible murmurs. ABDOMEN: Bowel sounds present, obese, soft. Non tender. EXTREMITIES: 3+ diffuse edema. No cyanosis The feet are warm. : no palpable bladder distension SKIN: No diffuse rash. NEUROLOGIC: Nonfocal. Opens eyes, tracks, + eye contact PSYCHIATRIC: Calm and cooperative. I Assessment & Plan Remarks MPRESSION: 1. Sepsis. 2. Pneumonia Pseudomonas MDR. Latest sputum culture continues to have Pseudomonas. 3. Acute respiratory failure. Vent dependent. Extubated previously and appears to have aspirated. 4. Leukocytosis. WBC remains increased. 5. Nette glabrata UTI. Persistent despite management with Diflucan. Latest urine culture negative. 6. Right-sided pneumothorax. Subcutaneous emphysema. 7. History of chronic obstructive pulmonary disease and recent chronic obstructive pulmonary disease exacerbation. 8. Renal failure. Receiving hemodialysis. 9. Elevated liver function tests. LFT is decreasing. Patient is critically ill. Abx associated diarrhea, C.diff negative RECOMMENDATIONS: 1. Continue Micafungin. Patient has been on broad-spectrum antibiotics and has potential for systemic fungal infection. LFTs increase could be due to Diflucan. Monitor liver function 2. Continue Zerbaxa for pneumonia. 3. dc Levaquin. 4. cont metronidazole. 5. Monitor white blood cell count. 6. Monitor clinical status. Discussed with RN. Emmanuelle Ramsay MD Dec 11, 2017 16:14
[2017-12-11] MEDS: LEVOFLOXACIN 250 MG PREMIX INJ 50 ML IV SCH (16:45)
[2017-12-11] MEDS: ALBUMIN 25% INJ 100 ML IV PRN (17:01)
[2017-12-11] MEDS: GENTAMICIN SULFATE 20 MG/2 ML VIAL OTHER PRN (17:01)
[2017-12-11] MEDS: MANNITOL 12.5 GM/50 ML VIAL IV PRN (17:01)
[2017-12-11] MEDS ORDERED: METOPROLOL TARTRATE 5 MG/5 ML VIAL IV PUSH ONE (18:00)
[2017-12-12] VITALS (22 sets, daily range): BP systolic 80–117; BP diastolic 48–66; PULSE 82–108; RESP 20–30; TEMP 98.3–98.8; O2SAT 85–100
[2017-12-12] MEDS: INSULIN ASPART SUPPLEMENTAL SCALE SQ SCH ×6 (04:00→20:00)
[2017-12-12] MEDS: CHLORHEXIDINE GLUCONATE 2 % 1 PACK (2 CLOTHS) TOP SCH (04:00)
[2017-12-12] MEDS: PHENYLEPHRINE INJ 160 MG in DEXTROSE 5% IN WATE 500 ML INJ 484 ML IV PRN ×2 (04:05)
[2017-12-12 04:43] LABS: ALBUMIN 3.2 GM/DL (3.4-5.0); BICARBONATE 26.3 MEQ/L (21.0-32.0); CALCIUM 6.8 MG/DL (8.5-10.1); CALCIUM-PROTEIN CORRECTED 7.8 MG/DL (8.5-10.1); CREATININE 2.5 MG/DL (0.60-1.30); TOTAL BILIRUBIN ADULT 1.1 MG/DL (0.2-1.0); TOTAL PROTEIN 5.1 GM/DL (6.4-8.2)
[2017-12-12 04:56] LABS: AUTOMATED NEUTROPHIL # 19.9 TH/MM3 (1.8-7.7); HEMATOCRIT 21.2 % (39.0-51.0); LYMPH % 7.2 % (9.0-44.0); LYMPHOCYTE # 1.6 TH/MM3 (1.0-4.8); MEAN CORPUSCULAR HEMOGLOBIN 26.5 PG (27.0-34.0); MEAN CORPUSCULAR HGB CONC 31.6 % (32.0-36.0); MEAN PLATELET VOLUME 9.2 FL (7.0-11.0); MONO % 5.9 % (0.0-8.0); MONOCYTE # 1.3 TH/MM3 (0-0.9); NEUT % 86.9 % (16.0-70.0); RED BLOOD COUNT 2.53 MIL/MM3 (4.50-5.90); RED CELL DISTRIBUTION WIDTH 19.7 % (11.6-17.2); WHITE BLOOD COUNT 22.9 TH/MM3 (4.0-11.0)
[2017-12-12] MEDS: CEFTOLOZANE-TAZOBACTAM INJ 150 MG in SODIUM CHLORIDE 0.9% INJ 100 ML IV SCH ×3 (05:12→23:00)
[2017-12-12] MEDS: metroNIDAZOLE 500 MG TAB PO SCH ×5 (05:12→21:43)
[2017-12-12 05:16] LABS: HEMOGLOBIN 6.7 GM/DL (13.0-17.0); PLATELET COUNT 18 TH/MM3 (150-450)
[2017-12-12] MEDS ORDERED: SODIUM CHLOR 0.9% 250 ML INJ 250 ML IV ONE (05:30)
[2017-12-12] MEDS: DOCUSATE SODIUM 50 MG/SENNA 8.6 MG TAB PO SCH ×2 (07:14→21:43)
[2017-12-12] MEDS: CALCITRIOL 0.25 MCG CAP PO SCH (07:45)
[2017-12-12] MEDS: SODIUM CHLORIDE 0.9% FLUSH 10 ML FLUSH IV FLUSH SCH ×2 (07:46→21:43)
[2017-12-12] MEDS: FAMOTIDINE 20 MG TAB PO SCH ×2 (07:46→21:43)
[2017-12-12] MEDS: LANTHANUM CARBONATE 500 MG CHEWABLE TABLET CHEW SCH ×3 (07:46→17:50)
[2017-12-12] MEDS: INSULIN DETEMIR 100 UNITS/ML VIAL SQ SCH ×2 (08:24→21:00)
[2017-12-12] MEDS: CHLORHEXIDINE 0.12% (ORAL KIT) 15 ML CUP MT SCH ×2 (08:25→20:00)
[2017-12-12] MEDS: BUDESONIDE-FORMOTEROL 160/4.5 MCG INHALER INH SCH ×2 (08:25→08:38)
[2017-12-12 08:40] LABS: CORRECTED NUCLEATED RBC 5 /100 WBC (0-0); LYMPHOCYTES 2 % (9-44); MONOCYTES 1 % (0-8); NEUTROPHIL # MANUAL DIFF 22.2 TH/MM3 (1.8-7.7); NUCLEATED RED BLOOD CELL 5 (0-0); OVALOCYTES 1+ (NORMAL); POLYS (SEG NEUTROPHILS) 97 % (16-70)
[2017-12-12 08:41] LABS: TOXIC GRANULATION 1+ (NORMAL)
--- NOTE | 2017-12-12 08:46 | HHI.CCPN ---
Subjective Remarks/Hospital Course This is a 77-year-old male with a medical history significant for COPD, CHF, A. fib, diabetes, that presented to emergency department from [facility] for evaluation of worsening shortness of breath over the last 3 days. The patient was been given Solu-Medrol 125 mg and 2 albuterol treatments enroute to ED. Upon presentation to the ED the patient was on a nonrebreather. He was tachypneic and tachycardic. Patient's medical history significant for MRSA pneumonia previously admitted on 10/27/16 for approximately 12 days at [facility]. The patient is normally on 2.5 L/m nasal cannula O2 home dependency, and he lives with ( normally) a PCO2 in the 80s according to his . Patient was then discharged to [facility], and then transferred to [facility] for rehabilitation. He has been on an unknown antibiotic per the family and steroids for the last 3 days. Laboratory and imaging studies were performed with noted elevation in CO2 The patient was given empiric antibiotics in the ED and placed on BiPAP. Critical care medicine was consulted. Subjective: 11/15: Patient maintained on BiPAP throughout the night O2 saturations 97-98% on FiO2 of 0.40. Hemodynamically stable. Attempts made to wean patient to nasal cannula this a.m. unsuccessful, patient's O2 saturation in the 70s, patient placed back on BiPAP. Chest x-ray pending WBC count significantly diminished, leukocytosis resolved. Patient extremely anxious, Precedex infusion initiated. 11/16: Late entry note. Patient seen 10 AM. Overnight the patient converted to A. fib RVR, despite being on Cardizem 4 times a day and metoprolol twice a day- home medications, the patient received IV Cardizem followed by amiodarone infusion. Per report the patient became hypotensive, Cardizem discontinued. Amiodarone continued. Early this a.m. patient was resting comfortably A. fib rate controlled rate. The patient suddenly converted to A. fib RVR heart rate 150s-160s, acute hypoxemic respiratory failure, requiring intubation. The patient was intubated uneventfully and continues on amiodarone at 0.5 mg/hour, rate now controlled in conjunction with sedation. Cardiology consulted, his washer hand is Dr. Reyes X-ray revealed lung consolidation improved, chest x- ray clear. Plan for CPAP trials in a.m.. 11/17: No acute events overnight. Patient had 1 short 8 beat run of V. tach last evening was self resolution, electrolytes within normal limits. The patient continues on amiodarone 0.5 mg/hr. CPAP trials initiated this a.m.. Tube feeds initiated at trickle feeds. Patient converted to sinus rhythm at 2 AM. 11/18 Patient remains sedated and intubated. Afebrile. 11/19 Patient was extubated yesterday however last night he was noted to choke on water provided by the family. Stat ABG demonstrated acute hypercapnic respiratory failure and was emergently intubated. Currently sedated and intubated. 11/20 Patient remains intubated on Fentanyl drip however he si awake and alert. Afebrile. 11/21 Patient is awake and alert placed on CPAP with PS:15, PEEP:5. Afebrile. 11/22 Patient remains intubated , did not tolerate CPAP trials yesterday as he became tachycardic and hypertensive. On no sedation awake and alert. 11/23 No events overnight, off sedation. 11/24: Resting comfortably on mechanical ventilation currently. Daily C Pap trials ongoing. 11/25: Sedated with Precedex, orally intubated on mechanical ventilation. Daily C Pap trials 11/26: Sedated with Precedex, orally intubated on mechanical ventilation. Got tachypneic with CPAP trial today hence placed back on PRVC. Spiked a fever, garcia cultures ordered. Went into A. fib with RVR subsequently for which being initiated on amiodarone bolus followed by drip and Lopressor 5 mg IV every 6 as needed for 11/27: This morning patient developed bradycardia followed by asystole for which she had 3 minutes CPR with ACLS protocol with return of spontaneous circulation. Post code chest x-ray revealed moderate to large right pneumothorax for which a right pigtail catheter was placed by me however despite airleak patient continue have moderate to large pneumothorax hence a second right sided 28 Sammarinese chest tube was placed to -40 cm water pressure. Air leaks 1+ in both pigtail catheter and chest tube. Patient remains in a flutter currently. Dr. reyes evaluated patient as well following cardiac arrest. 11/28: Sedated, arousable, orally intubated on mechanical ventilation. Worsening renal function noted. MDR Pseudomonas in sputum. Right sided chest tube/ pigtail catheter with 1+ air leak in both. Subcutaneous emphysema noted over right side of face neck and right upper extremity. On 50% FiO2, PEEP +5. Poor urine output for which 500 cc and is bolus given earlier. Treated for hyperkalemia with Kayexalate PO, glucose insulin, calcium IV. 4/2: Remains sedated, arousable, orally intubated on mechanical ventilation. A. fib with RVR this morning for which she was loaded with amiodarone and initiated on amiodarone drip. Spiking fever 103.5. ID adjusting antibiotics. Stool for C. difficile ordered as he had some diarrhea today though received Kayexalate yesterday for hyperkalemia. Pigtail catheter on the right side appeared to be dislodged hence this was removed. 28 Sammarinese chest tube in right pleural cavity repositioned. 11/30: Late entry note , patient seen at 12 noon. Creatinine continues to trend upward.Sedated but easily arousable. 12/01: Patient lightly sedated, following commands this a.m.. Creatinine noted increased, possible dialysis consideration for tomorrow. Patient to be diuresed today. CPAP trial initiated failed after 5 minutes, repeat this afternoon. 12/02: Patient placed on Lasix infusion throughout the night . No renal improvement,creatinine worsened today , plan for Vas-Cath placement and IHD today. This extensive discussion with patient and plans for tracheostomy and PEG tube placement secondary to failure to wean. 12/03: Late entry note, patient seen at 11 am. Patient scheduled for PEG placement today by Dr. Iglesias. Patient continues to fail CPAP trials. Plan for tracheostomy in the near future 12/04: Late entry note . Patient seen earlier this am. Overnight the patient became hypoglycemic, secondary to n.p.o. status, post PEG placement. D10 was initiated at 30 cc/hr. Tube feeds reinitiated Jevity 1.5, 24 hours post PEG tube placed, D10 discontinued. Patient remains on fentanyl at 100 mics/hour, lightly sedated. Patient denies pain answering by nodding head to yes and no questions. Tracheostomy planned for Wednesday12/06/[address] Calderon. 12/05: Remains intubated sedated with 50 mcg of fentanyl. On attempted CPAP trial patient remained dyspneic. Significant neuromuscular weakness persist. Chest x-ray shows small right apical pneumothorax. Tentatively plan for tracheostomy tomorrow. Dr. Calderon has already been consulted 12/06 Patient remains intubated for possible trach today. On Levophed 12 mics. Afebrile. 12/07 No events overnight. Trach was placed on hold yesterday as patient was on Levophed. He is down to 5 mics today. Afebrile. 12/08 Patient remains intubated on no sedation. CT brain this morning showed no acute process. Off Levophed. 12/09 Patient was placed back on Levophed 6 mics. Afebrile. Remains intubated on no sedation. 12/10 Patient remains intubated. On Neosyn 40 mics went into Afib with RVR HR 128 12/11 Patient remains intubated. Now on Neosyn 200 mics ( MAP 86mmHg). s/p HD yesterday with 1.5L removed. T:99.7 12/12 Patient remains sedated and intubated. Neosyn down 100 mics. For transfusion 2u PRBC and 1u PLT ( Hgb 6.7 and PLT 18 this morning) s/p HD with 3L removed yesterday. WBC is trending down. Objective Vital Signs Date Time Temp Pulse Resp B/P (MAP) Pulse Ox O2 Delivery O2 Flow Rate FiO2 12/12/17 08:00 95 12/12/17 08:00 98.3 28 103/55 (71) 100 12/12/17 08:00 35 Intake and Output 12/12/17 12/12/17 12/13/17 08:00 16:00 00:00 Intake Total 1239 ml Output Total 45 ml Balance 1194 ml Result Diagram: 12/12/17 0358 12/12/17 0358 Other Results Laboratory Tests Test 12/11/17 10:47 12/12/17 03:58 White Blood Count 27.5 TH/MM3 22.9 TH/MM3 Red Blood Count 2.72 MIL/MM3 2.53 MIL/MM3 Hemoglobin 7.2 GM/DL 6.7 GM/DL Hematocrit 22.9 % 21.2 % Mean Corpuscular Volume 84.2 FL 84.0 FL Mean Corpuscular Hemoglobin 26.5 PG 26.5 PG Mean Corpuscular Hemoglobin Concent 31.5 % 31.6 % Red Cell Distribution Width 19.3 % 19.7 % Platelet Count 29 TH/MM3 18 TH/MM3 Mean Platelet Volume 10.0 FL 9.2 FL CBC Comment AUTO DIFF AUTO DIFF Differential Total Cells Counted 100 Neutrophils % (Manual) 90 % Band Neutrophils % 1 % Lymphocytes % 7 % Monocytes % 2 % Neutrophils # (Manual) 25.0 TH/MM3 Differential Comment FINAL DIFF MANUAL Toxic Granulation 2+ Platelet Estimate LOW Platelet Morphology Comment ENLARGED Prothrombin Time 12.2 SEC Prothromb Time International Ratio 1.2 RATIO Fibrinogen 314 mg/dL Neutrophils (%) (Auto) 86.9 % Lymphocytes (%) (Auto) 7.2 % Monocytes (%) (Auto) 5.9 % Eosinophils (%) (Auto) 0.0 % Basophils (%) (Auto) 0.0 % Neutrophils # (Auto) 19.9 TH/MM3 Lymphocytes # (Auto) 1.6 TH/MM3 Monocytes # (Auto) 1.3 TH/MM3 Eosinophils # (Auto) 0.0 TH/MM3 Basophils # (Auto) 0.0 TH/MM3 Blood Urea Nitrogen 65 MG/DL Creatinine 2.50 MG/DL Random Glucose 187 MG/DL Total Protein 5.1 GM/DL Albumin 3.2 GM/DL Calcium Level 6.8 MG/DL Alkaline Phosphatase 269 U/L Aspartate Amino Transf (AST/SGOT) 54 U/L Alanine Aminotransferase (ALT/SGPT) 55 U/L Total Bilirubin 1.1 MG/DL Sodium Level 139 MEQ/L Potassium Level 3.4 MEQ/L Chloride Level 100 MEQ/L Carbon Dioxide Level 26.3 MEQ/L Anion Gap 13 MEQ/L Estimat Glomerular Filtration Rate 25 ML/MIN Protein Corrected Calcium 7.8 MG/DL Imaging Last Impressions Chest X-Ray 12/11/17 0000 Signed Impressions: Service Date/Time: Monday, December 11, 2017 10:51 - CONCLUSION: Stable chest with moderate subcutaneous emphysema and no pneumothorax. Torin Dennison MD FACR Liver Ultrasound 12/09/17 0000 Signed Impressions: Service Date/Time: November 19:18 - CONCLUSION: 1. Limited suboptimal examination with only a small portion of the liver visualized. 2. The gallbladder and common bile duct could not be visualized. The pancreas is not evaluated. 3. Left pleural effusion. Liang Jimenez MD Head CT 12/08/17 0000 Signed Impressions: Service Date/Time: Friday, December 08, 2017 08:25 - CONCLUSION: Negative for acute process. Torin Dennison MD FACR Catheter Placement X-Ray 12/02/17 0000 Signed Impressions: Service Date/Time: November 10:47 - CONCLUSION: Uncomplicated right internal jugular Vas-Cath placement as above. incidental note is made of subcutaneous emphysema within the chest wall and neck Con Dennison MD Lower Extremity Ultrasound 11/29/17 0000 Signed Impressions: Service Date/Time: Wednesday, November 29, 2017 22:02 - CONCLUSION: Normal examination. Abdiel Mcintyre MD Renal Ultrasound 11/28/17 0000 Signed Impressions: Service Date/Time: Tuesday, November 28, 2017 20:30 - CONCLUSION: Nondiagnostic exam. Rashad Bose MD Objective Remarks GENERAL: Patient is 77 yo intubated awake nodding yes and no to questions, awake alert SKIN: Warm and dry. HEAD: Normocephalic. Mild subcutaneous emphysema involving right side of face neck shoulder and arm. EYES: No scleral icterus. No injection or drainage. NECK: Supple, trachea midline. No JVD or lymphadenopathy. CARDIOVASCULAR: S1-S2 irregularly irregular, no gallop or murmur. RESPIRATORY: Orally intubated on mechanical ventilation, air entry decreased bilaterally, scattered rhonchi bilaterally, no wheezing. Right sided chest tube with 1+ airleak. Subcutaneous emphysema or right chest wall, neck, right side of face and right upper extremity. GASTROINTESTINAL: Abdomen soft, non-tender, nondistended. MUSCULOSKELETAL: Bilateral peripheral edema +2 Neuro: Awake, orally intubated, on mechanical ventilation, follows simple commands intermittently A/P Problem List: (1) A-fib ICD Code: I48.91 - Unspecified atrial fibrillation (2) CHF (congestive heart failure) ICD Code: I50.9 - Heart failure, unspecified Status: Chronic (3) HTN (hypertension) ICD Code: I10 - Essential (primary) hypertension Status: Chronic (4) ADRIAN (obstructive sleep apnea) ICD Code: G47.33 - Obstructive sleep apnea (adult) (pediatric) Status: Chronic (5) MRSA pneumonia ICD Code: J15.212 - Pneumonia due to Methicillin resistant Staphylococcus aureus Status: Acute (6) Diabetes mellitus type 2, insulin dependent ICD Code: E11.9 - Type 2 diabetes mellitus without complications; Z79.4 - senior living (current) use of insulin Status: Chronic (7) COPD (chronic obstructive pulmonary disease) ICD Code: J44.9 - Chronic obstructive pulmonary disease, unspecified Status: Acute (8) Respiratory distress ICD Code: R06.03 - Acute respiratory distress Status: Acute (9) Leukocytosis ICD Code: D72.829 - Elevated white blood cell count, unspecified Status: Acute (10) Lung consolidation ICD Code: J18.1 - Lobar pneumonia, unspecified organism Status: Acute (11) Anxiety ICD Code: F41.9 - Anxiety disorder, unspecified Status: Chronic (12) Failure to wean from mechanical ventilation ICD Code: Z99.11 - Dependence on respirator [ventilator] status Assessment and Plan Plan by systems: Neurologic: Possible Anoxic encephalopathy following cardiac arrest Anxiety disorder Off sedation, monitor neuro status, Neuro checks per ICU protocol EEG: Mild- mod encephalopathy. Neuro is following- Dr. Anne. CT brain 12/08 no acute process Neuro is following- Dr. Anne Respiratory: Acute respiratory failure on mechanical ventilation- extubated and reintubated night of 11/18 after he was noted to choke on water provided by family. COPD exacerbation Pneumonia-MRSA, MDR Pseudomonas Right sided pneumothorax following CPR status post pigtail catheter/chest tube placement 11/27 Obstructive sleep apnea Home O2 dependency Continue with vent support keep sats >92% Bronchodilators, HC 50mg IV Q12 Pulmonology - Dr Price, Right sided chest tube in place. Continue 28 F right chest tube to -40 cm water pressure with underwater seal. General surgery is following for tracheostomy when stable and PLT count recovers Cardiovascular: A. fib RVR Cardiac arrest - asystole, status post CPR 11/27 History of CHF CAD Wean off Neosyn keep MAP>65mmHg. Lactic acid:2.2 on 12/07 Hydrocortisone 50mg IV Q12 Atorvastatin 80 daily on hold for elevated LFT's Cardiology - Dr. Reyes Echo showed EF 65-70% Renal: DAVID Monitor renal function, electrolytes replacement as needed Nephrology Dr. Ragland. 12/02 Vas-Cath placed for initiation of IHD . s/p HD 12/11 with 3L removed FEN/GI: Elevated LFT's GERD Monitor LFT's, US liver on 12/06: non diagnostic study US liver 12/09 limited study Hepatitis profile is negative On tube feeds On Nepro @40cc/hr. Pepcid for GI prophylaxis 12/03 PEG tube placement ID: Pneumonia MRSA, MDR Pseudomonas Leukocytosis ID following- Antibiotics per ID (on Micafungin, Zerbaxa, Flagyl) Stool for C. difficile negative on 11/29 and 12/06 Pertinent cultures 12/09 BC: NGTD 411 Urine cx: C. Glabrata 12/06 Sputum cx: Pseudomonas MDR 11/16 sputum cultures- Kleb pneumonia 11/26 sputum cultures growing multidrug resistant Pseudomonas/MRSA 11/28 urine culture growing yeast 11/26 blood culture neg Heme Monitor CBC, Coags, follow up on Hep PLT ab, check Hemoccult stool For transfusion 2u PRBC, 1u PLT ( Hgb 6.7, PLT 18) Heme consulted- Dr. Quintana INR 1.2 and Fibrinogen level 314 12/11, check level today Endocrine: Glucose monitoring per ICU protocol -- SSI(high scale) Levemir 5u Q12 Prophylaxis: GI Prophylaxis Famotidine BID DVT Prophylaxis -- SCDs Held home dose Eliquis 5 mg BID on 11/27 in view of anticipated procedures Heparin SQ on hold in setting of worsening thrombocytopenia Lines: Left IJ central line placed 11/28, Palliative care is following Level 3 Problem Qualifiers (1) COPD (chronic obstructive pulmonary disease): Qualified Codes: J44.9 - Chronic obstructive pulmonary disease, unspecified (2) Leukocytosis: Qualified Codes: D72.829 - Elevated white blood cell count, unspecified Carmen Richard MD Dec 12, 2017 08:46
--- NOTE | 2017-12-12 09:11 | RADRPT ---
EXAM DATE/TIME: 12/12/2017 08:50 [facility] COMPARISON: CHEST SINGLE AP, December 11, 2017, 10:51. INDICATIONS : Respiratory failure MEDICAL HISTORY : Cardiovascular disease. Hypertension Chronic obstructive pulmonary disease. CHF. Diabetes SURGICAL HISTORY : ENCOUNTER: Subsequent ACUITY: 2 weeks PAIN SCORE: Non-responsive. LOCATION: chest FINDINGS: Large bore chest tube remains on the right without significant pneumothorax. Moderate subcutaneous e mphysema remains. Left lung is clear. The heart and pulmonary vascularity are normal. Support appar atus in good position. CONCLUSION: Stable with extensive right subcutaneous emphysema. Torin Dennison MD FACR on December 12, 2017 at 9:09 Board Certified Radiologist. This report was verified electronically.
[2017-12-12] MEDS: MICAFUNGIN INJ 150 MG in SODIUM CHLORIDE 0.9% INJ 100 ML IV SCH (11:53)
[2017-12-12] MEDS: HYDROCORTISONE SOD SUCCINATE 100 MG VIAL IV PUSH SCH ×2 (11:53→21:44)
--- NOTE | 2017-12-12 12:10 | HHI.NPPN ---
Subjective Renal Failure: Acute History of Present Illness This is a 77-year-old male with past medical history of ischemic heart disease, atrial fibrillation, congestive heart failure, possibly diastolic dysfunction, diabetes mellitus, chronic obstructive pulmonary disease, was admitted on 11/14 with respiratory distress. Nephrology was called to see the patient because of elevated BUN and creatinine. The patient has creatinine of 1.1 on admission, which increased after 2 or 3 to 1.3-1.5 and for the last 2 days, it has been going up and now it is 2.8. The patient was initially diagnosed with pneumonia and was started on antibiotics and then later on, patient developed respiratory failure and was intubated. He was also found to have asystole on 11/27 for 3 minutes and CPR was done with ACLS protocol, and it was shown that he has large right-sided pneumothorax. The blood pressure has been stable and there are no significant hypotensive episodes documented. Most of the history was taken from he patient' s chart. Additional Remarks Dialyzed yesterday, 3 liters removed in HD. This morning he was on CPAP when I saw him. Family is at the bedside. Review of Systems General General Remarks Unable to do ROS as patient is intubated Objective Data Data 12/12/17 12/13/17 19:00 07:00 Intake Total 470 ml Balance 470 ml Packed Cells 400 ml Blood Product IV Normal Saline Flush 70 ml Vital Signs Date Time Temp Pulse Resp B/P (MAP) Pulse Ox O2 Delivery O2 Flow Rate FiO2 12/12/17 11:10 94 35 12/12/17 10:18 125/56 12/12/17 10:00 108 12/12/17 08:41 97 35 12/12/17 08:35 35 12/12/17 08:00 95 12/12/17 08:00 98.3 95 28 103/55 (71) 100 12/12/17 08:00 35 12/12/17 07:47 98.4 93 28 107/59 100 12/12/17 07:32 98.5 95 20 101/58 100 12/12/17 07:10 107/62 12/12/17 06:53 94 108/59 12/12/17 06:00 85 12/12/17 05:15 95 105/58 12/12/17 04:05 83 80/48 4/15/18 04:03 100 35 4/15/18 04:00 35 4/15/18 04:00 98.6 82 20 80/48 (59) 100 18 04:00 82 415/18 02:00 83 41518 00:02 100 35 4/15/18 00:00 98.8 86 20 94/54 (67) 100 15/18 00:00 35 15/18 00:00 86 14/18 22:35 89 101/52 414/18 22:00 87 14/18 20:00 35 /14/18 20:00 98.4 106 20 130/59 (82) 100 18 20:00 106 18 19:32 100 35 12/11/18 19:30 119 112/56 4/14/18 18:45 115 92/53 (66) 414/18 18:40 134 89/51 (64) 100 12/11/18 18:35 132 110/58 (75) 100 14/18 18:30 130 71/47 4/14/18 18:30 127 71/47 (55) 100 4/14/18 18:25 114 75/52 (60) 100 14/18 18:25 109 75/52 414/18 18:20 121 70/46 (54) 100 4/14/18 18:15 116 76/48 (57) 100 4/14/18 18:15 76/48 4/14/18 18:10 115 74/51 (59) 100 14/18 18:05 111 66/36 4/14/18 18:05 111 66/36 (46) 100 4/14/18 18:02 115 65/39 (48) 100 414/18 18:01 98 68/31 (43) 100 4/14/18 18:00 115 100 414/18 18:00 115 68/31 4/14/18 18:00 106 4/14/18 17:45 134 100/61 (74) 414/18 17:30 132 98/56 (70) 100 4/14/18 17:15 140 88/54 (65) 100 414/18 17:00 144 105/52 (69) 100 4/14/18 16:45 143 102/64 (77) 100 12/11/17 16:30 141 76/50 (59) 100 12/11/17 16:15 131 86/52 (63) 100 12/11/17 16:00 122 12/11/17 16:00 98.9 139 31 75/51 (59) 100 12/11/17 16:00 139 20 75/51 (59) 100 12/11/17 16:00 35 12/11/17 15:45 137 20 81/51 (61) 100 12/11/17 15:30 129 20 91/53 (66) 100 12/11/17 15:15 122 20 100/59 (73) 100 12/11/17 15:00 108 20 93/51 (65) 100 12/11/17 14:53 100 35 12/11/17 14:45 110 24 100/52 (68) 100 12/11/17 14:30 103 22 105/55 (72) 100 12/11/17 14:15 97 23 111/58 (75) 100 12/11/17 14:00 120 12/11/17 14:00 112 22 100/58 (72) 100 12/11/17 13:45 111 22 106/57 (73) 100 12/11/17 13:30 116 22 106/55 (72) 100 12/11/17 13:15 115 22 104/51 (68) 100 12/11/17 13:00 114 27 107/56 (73) 100 12/11/17 12:45 113 31 120/61 (80) 100 12/11/17 12:30 112 22 103/56 (72) 100 12/11/17 12:15 114 26 100/55 (70) 100 -: 12/12/17 0358 12/12/17 0358 Tubes & Lines: Vas-Cath, [place] Physical Exam General Appearance: No Acute Distress, Obese Eyes Eye Exam: Pupils Equal Pulmonary Resp Exam: Breath Sounds Equal Cardiology CV Exam: Regular Gastrointestinal/Abdomen GI Exam: Soft, Non-Tender, Distended Genitourinary Exam: Flank Non-Tender Integumentary Skin Exam: Clear, Warm Extremeties Extremities Exam: Moderate Edema Neurologic Neuro Exam: Awake Assessment/Plan Assessment Summary: DAVID/Acute Renal Failure Problem List: (1) DAVID (acute kidney injury) ICD Codes: N17.9 - Acute kidney failure, unspecified Plan: Acute kidney injury most likely related to prerenal vs acute tubular necrosis, either from the infection or related to his cardiac status and cardiac arrest. Renal US unable to visualize kidneys or bladder? Dialyzed yesterday. Dialysis again tomorrow. 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 (3) Thrombocytopenia ICD Codes: D69.6 - Thrombocytopenia, unspecified Plan: platelet transfusion. Hematology has been consulted. Order LDH. Etiology? (4) Anemia ICD Codes: D64.9 - Anemia, unspecified Plan: has received blood transfusion. Terrell Ruvalcaba MD Dec 12, 2017 12:10
[2017-12-12] MEDS: LEVOFLOXACIN 250 MG PREMIX INJ 50 ML IV SCH (14:06)
[2017-12-12 14:48] LABS: HEPARIN INDUCED PLATELET AB POSITIVE (NEGATIVE)
[2017-12-12] MEDS ORDERED: PHARMACY INFORMATION OTHER ONE (18:00)
[2017-12-12] MEDS: RESP: ALBUTEROL 2.5 MG/IPRATROPIUM 0.5 MG NEB (PRN) INH (20:08)
[2017-12-12 20:55] LABS: HEMATOCRIT 29.9 % (39.0-51.0); HEMOGLOBIN 9.9 GM/DL (13.0-17.0)
[2017-12-12 20:56] LABS: INTERNATIONAL NORMALIZED RATIO 1.1 RATIO; PROTHROMBIN TIME - PATIENT 11.5 SEC (9.8-11.6)
[2017-12-12 21:16] LABS: % SATURATION IRON PROFILE 16.5 % (20-50); IRON (FE) 27 MCG/DL (65-175); TOTAL IRON BINDING CAPACITY 164 MCG/DL (250-450)
[2017-12-12 21:41] LABS: FERRITIN 115 NG/ML (26-388)
[2017-12-12] MEDS: ARGATROBAN INJ 250 MG in SODIUM CHLOR 0.9% 250 ML INJ 250 ML IV PRN (21:54)
[2017-12-13] VITALS (56 sets, daily range): BP systolic 73–127; BP diastolic 42–65; PULSE 91–152; RESP 17–38; TEMP 98.2–99; O2SAT 97–100
[2017-12-13 03:21] LABS: AUTOMATED NEUTROPHIL # 16.7 TH/MM3 (1.8-7.7); BASOPHIL % 0.2 % (0.0-2.0); HEMATOCRIT 31.1 % (39.0-51.0); HEMOGLOBIN 10.2 GM/DL (13.0-17.0); LYMPH % 11.9 % (9.0-44.0); LYMPHOCYTE # 2.5 TH/MM3 (1.0-4.8); MEAN CELL VOLUME 83.4 FL (80.0-100.0); MEAN CORPUSCULAR HEMOGLOBIN 27.3 PG (27.0-34.0); MEAN CORPUSCULAR HGB CONC 32.8 % (32.0-36.0); MEAN PLATELET VOLUME 8.6 FL (7.0-11.0); MONOCYTE # 1.4 TH/MM3 (0-0.9); NEUT % 80.9 % (16.0-70.0); PLATELET COUNT 56 TH/MM3 (150-450); RED BLOOD COUNT 3.72 MIL/MM3 (4.50-5.90); WHITE BLOOD COUNT 20.7 TH/MM3 (4.0-11.0)
[2017-12-13 03:41] LABS: BICARBONATE 26.3 MEQ/L (21.0-32.0); CALCIUM 7.2 MG/DL (8.5-10.1); CALCIUM-PROTEIN CORRECTED 8.2 MG/DL (8.5-10.1); CREATININE 2.87 MG/DL (0.60-1.30); TOTAL BILIRUBIN ADULT 0.9 MG/DL (0.2-1.0); TOTAL PROTEIN 5.3 GM/DL (6.4-8.2)
[2017-12-13] MEDS: CHLORHEXIDINE GLUCONATE 2 % 1 PACK (2 CLOTHS) TOP SCH (04:00)
[2017-12-13] MEDS: INSULIN ASPART SUPPLEMENTAL SCALE SQ SCH ×7 (04:00→23:04)
[2017-12-13 05:00] LABS: OVALOCYTES 1+ (NORMAL)
--- NOTE | 2017-12-13 05:01 | RADRPT ---
EXAM DATE/TIME: 12/13/2017 04:01 [facility] COMPARISON: 12/12 at 8:50 AM. INDICATIONS : Shortness of breath, possible pulmonary disease. MEDICAL HISTORY : Cardiovascular disease. Hypertension Chronic obstructive pulmonary disease. CHF Diabetes SURGICAL HISTORY : None. ENCOUNTER: Subsequent ACUITY: 2 weeks PAIN SCORE: Non-responsive. LOCATION: Bilateral chest FINDINGS: There is mild left base consolidation developing. Right chest tube remains in place. No pneumothorax seen. There is persistent chest wall emphysema. Heart size stable, normal. Endotracheal tube tip is approximately 4.5 cm above the toña. Bilateral internal jugular central ve nous catheters with tips in the superior vena cava. CONCLUSION: 1. Mild left base consolidation developing. 2. Right chest tube remains in place. No pneumothorax but chest wall emphysema persists. Abdiel Vidales MD on December 13, 2017 at 4:59 Board Certified Radiologist. This report was verified electronically.
[2017-12-13] MEDS: CEFTOLOZANE-TAZOBACTAM INJ 150 MG in SODIUM CHLORIDE 0.9% INJ 100 ML IV SCH ×3 (05:56→23:32)
[2017-12-13] MEDS: metroNIDAZOLE 500 MG TAB PO SCH ×4 (05:56→23:03)
--- NOTE | 2017-12-13 07:48 | MB ---
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 HISTORY OF PRESENT ILLNESS: This is a 77-year-old male who is acutely very ill. He is currently intubated and sedated. He is septic and is on antibiotics. He is also hypotensive and he is currently on vasopressors. He has renal failure and is getting hemodialysis. The patient has been anemic as well and has received packed red blood cell transfusion. He has progressively become thrombocytopenic. Hematology has been consulted to make further recommendations. The patient was originally brought from [facility] after he developed shortness of breath. He was given steroids and breathing treatments and was placed on nonrebreather upon arrival in the ED. However, he became tachypneic and tachycardic and eventually had to be intubated. Based on the review of his medical history from the chart, he has a history of COPD, CHF, atrial fibrillation and diabetes. It appears that he was on Eliquis, which is on hold. Today's labs show a white blood cell count of 22.9, hemoglobin of 6.7, MCV of 84 and platelet count of 18. He had a normal platelet count of 164,000 on 12/05/2017 and subsequently his platelets started to drop. A HIT antibody panel was obtained, which has come back as positive and an optical density of 0.779. He has not had any bleeding. There is no evidence of thrombosis thus far. REVIEW OF SYSTEMS: Unable to be obtained due to the patient being currently intubated and sedated. PAST MEDICAL HISTORY: Atrial fibrillation with atrial flutter, history of anxiety, congestive heart failure, hypertension, COPD, on home oxygen, diabetes, GERD, obstructive sleep apnea with BiPAP, right carpal tunnel syndrome, depression, anxiety, history of MRSA pneumonia, iron deficiency anemia, hyperlipidemia, gastroparesis. PAST SURGICAL HISTORY: Right carpal tunnel release, hydrocele repair, right knee surgery, cardiac ablation in 2002. FAMILY HISTORY: Could not be obtained due to the patient's mental status. SOCIAL HISTORY: Could not be obtained due to his mental status. MEDICATIONS: Phenylephrine, terbutaline 1 mg subcutaneous p.r.n., Flagyl, ceftolozane/tazobactam, norepinephrine drip, Levaquin, Solu-Cortef, insulin 5 units every 12 hours subcutaneous, micafungin, gentamicin 20 mg p.r.n. with dialysis, Tylenol 650 p.r.n., Benadryl 25 mg p.o. p.r.n.,clonidine 0.1 mg p.o. p.r.n., Epogen 4000 units p.r.n. with dialysis, famotidine 10 mg p.o. b.i.d., DuoNebs, hydralazine 20 mg p.r.n., Ricarda-Colace 1 tablet p.o. b.i.d., Milk of Magnesia p.r.n., lactulose p.r.n. ALLERGIES: HE IS ALLERGIC TO ASPIRIN AND CODEINE. All medications were reviewed in the EMR. PHYSICAL EXAMINATION: VITAL SIGNS: Blood pressure is 97/57, pulse in the 90s, temperature is 98.5, O2 saturations are 100% on 35, he is currently intubated and on mechanical ventilation. GENERAL: Ill-appearing male who is currently intubated. HEENT: Pupils are sluggish, but reactive to light. EOMI. ET tube in place. NECK: Supple. No JVD. CHEST: Bilateral coarse sounds in all muniz. CARDIAC: S1, S2, tachycardic. ABDOMEN: Distended. Bowel sounds are absent. EXTREMITIES: Edematous. SKIN: Multiple bruising on arms and lower extremities. The upper extremity bruises are small secondary to IV access. NEUROLOGIC: Sedated and intubated. LABORATORY DATA: WBC 22.9, hemoglobin 6.7, platelet count 18. Serum chemistry, sodium 139, potassium 3.4, chloride 100, CO2 26.3, BUN 65, creatinine 2.5, GFR is 25, calcium 6.8, AST is 54, ALT 55, albumin is 3.2. Coags, PT is 12.2, INR 1.2. Fibrinogen 314. ASSESSMENT AND PLAN: This is a 77-year-old male who is acutely ill. He is intubated. He is septic. He is hypotensive and currently on multiple vasopressors. He has renal failure and he is getting hemodialysis. He has progressively become thrombocytopenic and anemic. 1. Thrombocytopenia, with a high probability of underlying heparin-induced thrombocytopenia. 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 We will order a serotonin release assay to confirm this. I would recommend starting argatroban drip. Orders have been placed. I have discussed this case with Dr. Romero. We will discontinue heparin. We will avoid any heparin drip or any heparin flushes or other heparin products. We will hold off on any platelet transfusion at this time. However, if his platelet count drops below 10, we may have to give him platelets or unless if his bleeding. 2. Progressive anemia, likely due to sepsis and consumptive phenomena. We will check anemia studies, check B12 and folate. Check LDH and haptoglobin. Check a direct Sanchez test. Hepatitis panel was negative. We should obtain a stool Hemoccult. Transfuse to keep hemoglobin greater than 7. 3. Respiratory failure, currently intubated. 4. Sepsis with sputum cultures positive for Klebsiella pneumoniae and Pseudomonas. Urine was positive for Nette glabrata. He is on antibiotics. Thank you for allowing me to participate in the care of this patient. We will continue to follow this patient along. MD BRYNN Pan/MESSI , 06:34 PM , 07:03 PM
[2017-12-13] MEDS: CHLORHEXIDINE 0.12% (ORAL KIT) 15 ML CUP MT SCH ×2 (08:00→20:39)
[2017-12-13] MEDS: RESP: ALBUTEROL 2.5 MG/IPRATROPIUM 0.5 MG NEB (PRN) INH (08:12)
[2017-12-13] MEDS: LANTHANUM CARBONATE 500 MG CHEWABLE TABLET CHEW SCH ×3 (09:00→18:21)
[2017-12-13] MEDS: INSULIN DETEMIR 100 UNITS/ML VIAL SQ SCH ×2 (09:00→20:40)
[2017-12-13] MEDS: DOCUSATE SODIUM 50 MG/SENNA 8.6 MG TAB PO SCH ×2 (09:00→20:40)
[2017-12-13] MEDS: FAMOTIDINE 20 MG TAB PO SCH ×2 (09:00→20:39)
[2017-12-13] MEDS: MANNITOL 12.5 GM/50 ML VIAL IV PRN ×2 (10:50→10:51)
[2017-12-13] MEDS: ALBUMIN 25% INJ 100 ML IV PRN ×2 (10:50→10:52)
[2017-12-13] MEDS: GENTAMICIN SULFATE 20 MG/2 ML VIAL OTHER PRN (10:52)
--- NOTE | 2017-12-13 11:33 | PD.ONC.PN ---
Subjective Subjective Remarks Afebrile overnight. Patient intubated, sedated and receiving dialysis. Objective Data Date Time Temp Pulse Resp B/P (MAP) Pulse Ox O2 Delivery O2 Flow Rate FiO2 12/13/17 09:00 119 28 84/45 (58) 100 12/13/17 08:45 108 27 87/42 (57) 100 12/13/17 08:30 103 33 90/50 (63) 100 12/13/17 08:15 108 37 82/52 (62) 100 12/13/17 08:13 100 35 12/13/17 08:00 98.6 107 20 79/43 (55) 100 12/13/17 07:45 107 20 90/53 (65) 100 12/13/17 07:30 106 20 98/46 (63) 100 12/13/17 07:15 108 20 107/55 (72) 100 12/13/17 07:00 104 20 92/54 (67) 100 12/13/17 04:03 100 35 12/13/17 04:00 35 12/13/17 04:00 98.4 98 27 107/58 (74) 99 12/13/17 00:34 100 35 12/13/17 00:00 35 12/13/17 00:00 98.2 93 21 116/65 (82) 100 12/12/17 20:07 100 35 12/12/17 20:00 98.5 89 20 115/66 (82) 100 12/12/17 20:00 35 12/12/17 19:11 102/68 12/12/17 18:00 92 12/12/17 16:46 98.4 94 20 100 12/12/17 16:00 97 12/12/17 16:00 35 12/12/17 16:00 98.5 97 21 97/57 (70) 100 12/12/17 14:23 100 35 12/12/17 14:00 96 12/12/17 12:17 98.4 95 22 103/55 93 12/12/17 12:09 35 12/12/17 12:02 98.4 99 26 117/58 85 12/12/17 12:00 94 12/12/17 12:00 98.4 99 30 109/56 (73) 93 12/13/17 12/13/17 12/13/17 07:00 15:00 23:00 Intake Total 867 ml Output Total 25 ml Balance 842 ml Result Diagram: 12/13/17 0300 12/13/17 0300 Laboratory Results Laboratory Tests Test 12/12/17 20:05 12/12/17 20:15 12/12/17 22:10 12/13/17 00:25 Prothrombin Time 11.5 SEC Prothromb Time International Ratio 1.1 RATIO Activated Partial Thromboplast Time 28.6 SEC 27.6 SEC 48.9 SEC Fibrinogen 360 mg/dL Hemoglobin 9.9 GM/DL Hematocrit 29.9 % Platelet Count 59 TH/MM3 Haptoglobin 253 MG/DL Iron Level 27 MCG/DL Total Iron Binding Capacity 164 MCG/DL Percent Iron Saturation 16.5 % Ferritin 115 NG/ML Lactate Dehydrogenase 399 U/L Vitamin B12 Level 713 PG/ML Test 12/13/17 03:00 12/13/17 06:00 White Blood Count 20.7 TH/MM3 Red Blood Count 3.72 MIL/MM3 Hemoglobin 10.2 GM/DL Hematocrit 31.1 % Mean Corpuscular Volume 83.4 FL Mean Corpuscular Hemoglobin 27.3 PG Mean Corpuscular Hemoglobin Concent 32.8 % Red Cell Distribution Width 17.0 % Platelet Count 56 TH/MM3 Mean Platelet Volume 8.6 FL Neutrophils (%) (Auto) 80.9 % Lymphocytes (%) (Auto) 11.9 % Monocytes (%) (Auto) 7.0 % Eosinophils (%) (Auto) 0.0 % Basophils (%) (Auto) 0.2 % Neutrophils # (Auto) 16.7 TH/MM3 Lymphocytes # (Auto) 2.5 TH/MM3 Monocytes # (Auto) 1.4 TH/MM3 Eosinophils # (Auto) 0.0 TH/MM3 Basophils # (Auto) 0.0 TH/MM3 CBC Comment AUTO DIFF Differential Comment AUTO DIFF CONFIRMED Platelet Estimate LOW Platelet Morphology Comment NORMAL Ovalocytes 1+ Activated Partial Thromboplast Time 57.9 SEC Blood Urea Nitrogen 77 MG/DL Creatinine 2.87 MG/DL Random Glucose 159 MG/DL Total Protein 5.3 GM/DL Albumin 3.0 GM/DL Calcium Level 7.2 MG/DL Alkaline Phosphatase 335 U/L Aspartate Amino Transf (AST/SGOT) 44 U/L Alanine Aminotransferase (ALT/SGPT) 50 U/L Total Bilirubin 0.9 MG/DL Sodium Level 139 MEQ/L Potassium Level 3.0 MEQ/L Chloride Level 100 MEQ/L Carbon Dioxide Level 26.3 MEQ/L Anion Gap 13 MEQ/L Estimat Glomerular Filtration Rate 21 ML/MIN Protein Corrected Calcium 8.2 MG/DL Imaging Studies Last 24 hours Impressions Chest X-Ray 12/13/17 0000 Signed Impressions: Service Date/Time: Wednesday, December 13, 2017 04:01 - CONCLUSION: 1. Mild left base consolidation developing. 2. Right chest tube remains in place. No pneumothorax but chest wall emphysema persists. Abdiel Vidales MD Administered Medications Medications (Trade) Dose Ordered Sig/Yani Route PRN Reason Start Time Stop Time Status Last Admin Dose Admin Sodium Chloride (NS Flush) 2 ml UNSCH PRN IV FLUSH FLUSH AFTER USING IV ACCESS 11/14/17 15:45 11/17/17 14:05 Sodium Chloride (NS Flush) 2 ml BID IV FLUSH 11/14/17 21:00 12/12/17 21:43 Ondansetron HCl (Zofran Inj) 4 mg Q6H PRN IV PUSH NAUSEA OR VOMITING 11/14/17 15:45 11/18/17 16:03 Miscellaneous Information 1 Q361D XX 11/14/17 15:45 11/14/17 15:45 Chlorhexidine Gluconate (Chlorhexidine 2% Cloth) Taper DAILY@04 TOP 11/15/17 04:00 11/11/18 03:59 12/07/17 04:00 Senna/Docusate Sodium (Ricarda-Colace) 1 tab BID PO 11/14/17 21:00 12/12/17 21:43 Apixaban (Eliquis) 5 mg BID PO 11/14/17 21:00 Future Hold 11/27/17 20:17 Atorvastatin Calcium (Lipitor) 80 mg HS PO 11/14/17 21:00 Future Hold 12/05/17 19:49 Digoxin (Lanoxin) 0.125 mg DAILY PO 11/15/17 09:00 Future Hold 11/17/17 08:24 Diltiazem HCl (Cardizem) 60 mg QID PO 11/14/17 18:00 Future Hold 12/06/17 08:44 Hydralazine HCl (Apresoline Inj) 20 mg Q4H PRN IV PUSH SYS BP GREATER THAN 160 MMHG 11/17/17 12:00 11/22/17 07:38 Budesonide/ Formoterol Fumarate (Symbicort 160-4.5 Mcg Inh) 2 puff Q12HR INH 11/18/17 21:00 12/12/17 08:38 Chlorhexidine Gluconate (Peridex 0.12% Liq) 15 ml BID@08,20 MT 11/19/17 08:00 12/13/17 08:00 Albuterol/ Ipratropium (Duoneb Neb) 1 ampule Q2HR NEB PRN INH WHEEZING 11/18/17 22:30 12/13/17 08:12 Famotidine (Pepcid) 10 mg BID PO 11/22/17 21:00 12/12/17 21:43 Insulin Aspart (NovoLOG SUPPLEMENTAL SCALE) 1 Q4HR SQ 11/26/17 16:00 12/13/17 04:00 Dextrose (D50w (Vial) Inj) 25 ml UNSCH PRN IV HYPOGLYCEMIA-SEE COMMENTS 11/26/17 15:30 12/04/17 01:18 Fentanyl Citrate 250 ml @ 5 mls/hr TITRATE PRN IV SEDATION 11/27/17 13:45 12/03/17 08:58 Sodium Chloride 1,000 ml @ 0 mls/hr Q0M PRN OTHER For Prime & Rinse Back 12/02/17 09:30 12/08/17 16:50 Mannitol (Mannitol Inj) 12.5 gm UNSCH PRN IV WITH DIALYSIS 12/02/17 09:30 12/13/17 10:51 Albumin Human 100 ml @ 60 mls/hr UNSCH PRN IV WITH DIALYSIS 12/02/17 09:30 12/13/17 10:52 Sodium Chloride (NS Flush) 5 ml UNSCH PRN IV FLUSH WITH DIALYSIS 12/02/17 09:30 12/08/17 16:51 Heparin Sodium (Porcine) (Heparin Inj) UNSCH PRN .XX WITH DIALYSIS 12/02/17 09:30 12/08/17 16:50 Gentamicin Sulfate (Gentamicin Inj) 20 mg UNSCH PRN OTHER WITH DIALYSIS 12/02/17 09:30 12/13/17 10:52 Epoetin Kvng (Epogen Inj) 4,000 units UNSCH PRN IV PUSH WITH DIALYSIS 12/02/17 09:30 12/10/17 11:45 Micafungin Sodium 150 mg/Sodium Chloride 100 ml @ 100 mls/hr Q24H IV 12/06/17 12:00 12/12/17 11:53 Hydrocortisone Sodium Succinate (SoluCORTEF INJ) 50 mg Q12H IV PUSH 12/07/17 23:00 12/12/17 21:44 Insulin Detemir (Levemir Inj) 5 units Q12HR SQ 12/07/17 12:00 12/12/17 21:00 Lanthanum Carbonate (Fosrenol Chew) 500 mg TID CHEW 12/07/17 18:00 12/12/17 17:50 Calcitriol (Rocaltrol) 0.5 mcg DAILY PO 12/08/17 09:00 12/12/17 07:45 Ceftolozane/ Tazobactam 150 mg/ Sodium Chloride 100 ml @ 100 mls/hr Q8H IV 12/08/17 23:00 12/13/17 05:56 Levofloxacin/ Dextrose 50 ml @ 50 mls/hr Q24H IV 12/08/17 16:00 12/12/17 14:06 Norepinephrine Bitartrate 250 ml @ 7.5 mls/hr TITRATE PRN IV Blood pressure management 12/08/17 21:00 12/10/17 03:00 Metronidazole (Flagyl) 500 mg Q6HR PO 12/10/17 13:30 12/13/17 05:56 Phenylephrine HCl 160 mg/Dextrose 500 ml @ 7.5 mls/hr TITRATE PRN IV Blood pressure management 12/10/17 19:30 12/12/17 04:05 Argatroban 250 mg/ Sodium Chloride 252.5 ml @ 3.03 mls/hr TITRATE PRN IV aPTT < 50 12/12/17 18:00 12/12/17 21:54 Objective Remarks GENERAL: intubated, sedated elderly gentleman, lying supine in hospital bed, receiving dialysis. SKIN: Warm and dry. HEAD: Normocephalic. EYES: No injection or drainage. NECK: Supple, trachea midline. CARDIOVASCULAR: +S1/S2 RESPIRATORY: on mechanical ventilation. GASTROINTESTINAL: Abdomen with mild distension. EXTREMITIES: No cyanosis NEUROLOGICAL: intubated, sedated Assessment/Plan Problem List: (1) Thrombocytopenia ICD Codes: D69.6 - Thrombocytopenia, unspecified Plan: --high probability of underlying heparin-induced thrombocytopenia. --HIT antibody positive, [place] pending. --on Argatroban drip. --transfuse for platelet count less than 10 (2) Normocytic anemia ICD Codes: D64.9 - Anemia, unspecified Plan: --likely due to sepsis and consumptive phenomena. --no indication of vitamin deficiency --yelena negative. --stool occult blood pending. --LDH and haptoglobin both elevated, no indication of hemolysis. Transfuse to keep hemoglobin greater than 7. (3) Sepsis ICD Codes: A41.9 - Sepsis, unspecified organism Plan: --on abx --Sputum cultures positive for Klebsiella pneumoniae and Pseudomonas. --Urine was positive for Nette glabrata. Assessment 77y/o male with sepsis. Hematology consulted for thrombocytopenia, HIT positive. history of COPD, CHF, atrial fibrillation and diabetes. hypertension, obstructive sleep apnea with BiPAP, right carpal tunnel syndrome, depression, anxiety, history of MRSA pneumonia, iron deficiency anemia, hyperlipidemia, gastroparesis. Plan 1. monitor CBC 2. await [place] 3. continue supportive care Attending Statement The exam, history, and the medical decision-making described in the above note were completed with the assistance of the mid-level provider. I reviewed and agree with the findings presented. I attest that I had a [id number] encounter with the patient on the same day, and personally performed and documented my assessment and findings in the medical record. remains critically ill intubated continue argatroban gtt [place] pending no evidence of hemolysis Lisha Rodríguez Dec 13, 2017 11:33 Oscar Quintana MD Dec 13, 2017 22:19
[2017-12-13] MEDS: HYDROCORTISONE SOD SUCCINATE 100 MG VIAL IV PUSH SCH ×2 (12:09→23:03)
[2017-12-13] MEDS: MICAFUNGIN INJ 150 MG in SODIUM CHLORIDE 0.9% INJ 100 ML IV SCH (12:09)
[2017-12-13] MEDS: CALCITRIOL 0.25 MCG CAP PO SCH (12:10)
[2017-12-13] MEDS: SODIUM CHLORIDE 0.9% FLUSH 10 ML FLUSH IV FLUSH SCH ×2 (12:10→20:39)
[2017-12-13] MEDS ORDERED: DIGOXIN 0.5 MG/2 ML VIAL IV PUSH ONE (12:15)
[2017-12-13] MEDS: BUDESONIDE-FORMOTEROL 160/4.5 MCG INHALER INH SCH ×2 (12:30→20:39)
[2017-12-13] MEDS: AMIODARONE INJ 450 MG in SODIUM CHLOR 0.9% (EXCEL) INJ 241 ML IV PRN ×2 (12:34→21:29)
--- NOTE | 2017-12-13 13:42 | HHI.CCPN ---
Subjective Remarks/Hospital Course This is a 77-year-old male with a medical history significant for COPD, CHF, A. fib, diabetes, that presented to emergency department from [facility] for evaluation of worsening shortness of breath over the last 3 days. The patient was been given Solu-Medrol 125 mg and 2 albuterol treatments enroute to ED. Upon presentation to the ED the patient was on a nonrebreather. He was tachypneic and tachycardic. Patient's medical history significant for MRSA pneumonia previously admitted on 10/27/16 for approximately 12 days at [facility]. The patient is normally on 2.5 L/m nasal cannula O2 home dependency, and he lives with ( normally) a PCO2 in the 80s according to his . Patient was then discharged to [facility], and then transferred to [facility] for rehabilitation. He has been on an unknown antibiotic per the family and steroids for the last 3 days. Laboratory and imaging studies were performed with noted elevation in CO2 The patient was given empiric antibiotics in the ED and placed on BiPAP. Critical care medicine was consulted. Subjective: 11/15: Patient maintained on BiPAP throughout the night O2 saturations 97-98% on FiO2 of 0.40. Hemodynamically stable. Attempts made to wean patient to nasal cannula this a.m. unsuccessful, patient's O2 saturation in the 70s, patient placed back on BiPAP. Chest x-ray pending WBC count significantly diminished, leukocytosis resolved. Patient extremely anxious, Precedex infusion initiated. 11/16: Late entry note. Patient seen 10 AM. Overnight the patient converted to A. fib RVR, despite being on Cardizem 4 times a day and metoprolol twice a day- home medications, the patient received IV Cardizem followed by amiodarone infusion. Per report the patient became hypotensive, Cardizem discontinued. Amiodarone continued. Early this a.m. patient was resting comfortably A. fib rate controlled rate. The patient suddenly converted to A. fib RVR heart rate 150s-160s, acute hypoxemic respiratory failure, requiring intubation. The patient was intubated uneventfully and continues on amiodarone at 0.5 mg/hour, rate now controlled in conjunction with sedation. Cardiology consulted, his ring conductor is Dr. Reyes X-ray revealed lung consolidation improved, chest x- ray clear. Plan for CPAP trials in a.m.. 11/17: No acute events overnight. Patient had 1 short 8 beat run of V. tach last evening was self resolution, electrolytes within normal limits. The patient continues on amiodarone 0.5 mg/hr. CPAP trials initiated this a.m.. Tube feeds initiated at trickle feeds. Patient converted to sinus rhythm at 2 AM. 11/18 Patient remains sedated and intubated. Afebrile. 11/19 Patient was extubated yesterday however last night he was noted to choke on water provided by the family. Stat ABG demonstrated acute hypercapnic respiratory failure and was emergently intubated. Currently sedated and intubated. 11/20 Patient remains intubated on Fentanyl drip however he si awake and alert. Afebrile. 11/21 Patient is awake and alert placed on CPAP with PS:15, PEEP:5. Afebrile. 11/22 Patient remains intubated , did not tolerate CPAP trials yesterday as he became tachycardic and hypertensive. On no sedation awake and alert. 11/23 No events overnight, off sedation. 11/24: Resting comfortably on mechanical ventilation currently. Daily C Pap trials ongoing. 11/25: Sedated with Precedex, orally intubated on mechanical ventilation. Daily C Pap trials 11/26: Sedated with Precedex, orally intubated on mechanical ventilation. Got tachypneic with CPAP trial today hence placed back on PRVC. Spiked a fever, garcia cultures ordered. Went into A. fib with RVR subsequently for which being initiated on amiodarone bolus followed by drip and Lopressor 5 mg IV every 6 as needed for 11/27: This morning patient developed bradycardia followed by asystole for which she had 3 minutes CPR with ACLS protocol with return of spontaneous circulation. Post code chest x-ray revealed moderate to large right pneumothorax for which a right pigtail catheter was placed by me however despite airleak patient continue have moderate to large pneumothorax hence a second right sided 28 Kyr[place]z chest tube was placed to -40 cm water pressure. Air leaks 1+ in both pigtail catheter and chest tube. Patient remains in a flutter currently. Dr. reyes evaluated patient as well following cardiac arrest. 11/28: Sedated, arousable, orally intubated on mechanical ventilation. Worsening renal function noted. MDR Pseudomonas in sputum. Right sided chest tube/ pigtail catheter with 1+ air leak in both. Subcutaneous emphysema noted over right side of face neck and right upper extremity. On 50% FiO2, PEEP +5. Poor urine output for which 500 cc and is bolus given earlier. Treated for hyperkalemia with Kayexalate PO, glucose insulin, calcium IV. 4/2: Remains sedated, arousable, orally intubated on mechanical ventilation. A. fib with RVR this morning for which she was loaded with amiodarone and initiated on amiodarone drip. Spiking fever 103.5. ID adjusting antibiotics. Stool for C. difficile ordered as he had some diarrhea today though received Kayexalate yesterday for hyperkalemia. Pigtail catheter on the right side appeared to be dislodged hence this was removed. 28 Kyrgyz chest tube in right pleural cavity repositioned. 11/30: Late entry note , patient seen at 12 noon. Creatinine continues to trend upward.Sedated but easily arousable. 12/01: Patient lightly sedated, following commands this a.m.. Creatinine noted increased, possible dialysis consideration for tomorrow. Patient to be diuresed today. CPAP trial initiated failed after 5 minutes, repeat this afternoon. 12/02: Patient placed on Lasix infusion throughout the night . No renal improvement,creatinine worsened today , plan for Vas-Cath placement and IHD today. This extensive discussion with patient and plans for tracheostomy and PEG tube placement secondary to failure to wean. 12/03: Late entry note, patient seen at 11 am. Patient scheduled for PEG placement today by Dr. Iglesias. Patient continues to fail CPAP trials. Plan for tracheostomy in the near future 12/04: Late entry note . Patient seen earlier this am. Overnight the patient became hypoglycemic, secondary to n.p.o. status, post PEG placement. D10 was initiated at 30 cc/hr. Tube feeds reinitiated Jevity 1.5, 24 hours post PEG tube placed, D10 discontinued. Patient remains on fentanyl at 100 mics/hour, lightly sedated. Patient denies pain answering by nodding head to yes and no questions. Tracheostomy planned for Wednesday12/06/[address] Calderon. 12/05: Remains intubated sedated with 50 mcg of fentanyl. On attempted CPAP trial patient remained dyspneic. Significant neuromuscular weakness persist. Chest x-ray shows small right apical pneumothorax. Tentatively plan for tracheostomy tomorrow. Dr. Calderon has already been consulted 12/06 Patient remains intubated for possible trach today. On Levophed 12 mics. Afebrile. 12/07 No events overnight. Trach was placed on hold yesterday as patient was on Levophed. He is down to 5 mics today. Afebrile. 12/08 Patient remains intubated on no sedation. CT brain this morning showed no acute process. Off Levophed. 12/09 Patient was placed back on Levophed 6 mics. Afebrile. Remains intubated on no sedation. 12/10 Patient remains intubated. On Neosyn 40 mics went into Afib with RVR HR 128 12/11 Patient remains intubated. Now on Neosyn 200 mics ( MAP 86mmHg). s/p HD yesterday with 1.5L removed. T:99.7 12/12 Patient remains sedated and intubated. Neosyn down 100 mics. For transfusion 2u PRBC and 1u PLT ( Hgb 6.7 and PLT 18 this morning) s/p HD with 3L removed yesterday. WBC is trending down. 12/13: More critically ill today, Bertin-Synephrine had to be increased to 150 mcg/ min, remains borderline hypotensive despite Bertin-Synephrine, currently in A. fib with RVR. Digoxin additional 0.25 mg IV push 1, start amiodarone infusion Objective Vital Signs Date Time Temp Pulse Resp B/P (MAP) Pulse Ox O2 Delivery O2 Flow Rate FiO2 12/13/17 12:57 100 35 12/13/17 12:34 143 104/59 12/13/17 12:30 28 12/13/17 12:00 98.9 Intake and Output 12/13/17 12/13/17 12/14/17 08:00 16:00 00:00 Intake Total 767 ml Output Total 25 ml 2500 ml Balance 742 ml -2500 ml Result Diagram: 12/13/17 0300 12/13/17 0300 Imaging Last Impressions Chest X-Ray 12/11/17 0000 Signed Impressions: Service Date/Time: Monday, December 11, 2017 10:51 - CONCLUSION: Stable chest with moderate subcutaneous emphysema and no pneumothorax. Torin Dennison MD FACR Liver Ultrasound 12/09/17 0000 Signed Impressions: Service Date/Time: November 19:18 - CONCLUSION: 1. Limited suboptimal examination with only a small portion of the liver visualized. 2. The gallbladder and common bile duct could not be visualized. The pancreas is not evaluated. 3. Left pleural effusion. Liang Jimenez MD Head CT 12/08/17 0000 Signed Impressions: Service Date/Time: Friday, December 08, 2017 08:25 - CONCLUSION: Negative for acute process. Torin Dennison MD FACR Catheter Placement X-Ray 12/02/17 0000 Signed Impressions: Service Date/Time: November 10:47 - CONCLUSION: Uncomplicated right internal jugular Vas-Cath placement as above. incidental note is made of subcutaneous emphysema within the chest wall and neck Con Dennison MD Lower Extremity Ultrasound 11/29/17 0000 Signed Impressions: Service Date/Time: Wednesday, November 29, 2017 22:02 - CONCLUSION: Normal examination. Abdiel Mcintyre MD Renal Ultrasound 11/28/17 0000 Signed Impressions: Service Date/Time: Tuesday, November 28, 2017 20:30 - CONCLUSION: Nondiagnostic exam. Rashad Bose MD Objective Remarks GENERAL: Patient is 77 yo intubated awake nodding yes and no to questions, appears critical SKIN: Warm and dry. HEAD: Normocephalic. Mild subcutaneous emphysema involving right side of face neck shoulder and arm. EYES: No scleral icterus. No injection or drainage. NECK: Supple, trachea midline. No JVD or lymphadenopathy. CARDIOVASCULAR: S1-S2 irregularly irregular, tachycardic in 150s hypotensive, currently on Bertin-Synephrine at 150 mcg/min RESPIRATORY: Orally intubated on mechanical ventilation, air entry decreased bilaterally, scattered rhonchi bilaterally, no wheezing. Right sided chest tube with 1+ airleak. Subcutaneous emphysema or right chest wall, neck, right side of face and right upper extremity. GASTROINTESTINAL: Abdomen soft, non-tender, nondistended. MUSCULOSKELETAL: Bilateral peripheral edema +2 Neuro: Awake, orally intubated, on mechanical ventilation, follows simple commands intermittently A/P Problem List: (1) A-fib ICD Code: I48.91 - Unspecified atrial fibrillation (2) CHF (congestive heart failure) ICD Code: I50.9 - Heart failure, unspecified Status: Chronic (3) HTN (hypertension) ICD Code: I10 - Essential (primary) hypertension Status: Chronic (4) ADRINA (obstructive sleep apnea) ICD Code: G47.33 - Obstructive sleep apnea (adult) (pediatric) Status: Chronic (5) MRSA pneumonia ICD Code: J15.212 - Pneumonia due to Methicillin resistant Staphylococcus aureus Status: Acute (6) Diabetes mellitus type 2, insulin dependent ICD Code: E11.9 - Type 2 diabetes mellitus without complications; 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 Status: Chronic (7) COPD (chronic obstructive pulmonary disease) ICD Code: J44.9 - Chronic obstructive pulmonary disease, unspecified Status: Acute (8) Respiratory distress ICD Code: R06.03 - Acute respiratory distress Status: Acute (9) Leukocytosis ICD Code: D72.829 - Elevated white blood cell count, unspecified Status: Acute (10) Lung consolidation ICD Code: J18.1 - Lobar pneumonia, unspecified organism Status: Acute (11) Anxiety ICD Code: F41.9 - Anxiety disorder, unspecified Status: Chronic (12) Failure to wean from mechanical ventilation ICD Code: Z99.11 - Dependence on respirator [ventilator] status Assessment and Plan Plan by systems: Neurologic: Encephalopathy Anxiety disorder Off sedation, monitor neuro status, Neuro checks per ICU protocol EEG: Mild- mod encephalopathy. Neuro is following- Dr. Anne. CT brain 12/08 no acute process Respiratory: Acute respiratory failure on mechanical ventilation- extubated and reintubated night of 11/18 after he was noted to choke on water provided by family. COPD exacerbation Pneumonia-MRSA, MDR Pseudomonas Right sided pneumothorax following CPR status post pigtail catheter/chest tube placement 11/27 Obstructive sleep apnea Home O2 dependency Continue with vent support keep sats >92% Bronchodilators, HC 50mg IV Q12 Pulmonology - Dr Price, Right sided chest tube in place. Continue 28 F right chest tube to -40 cm water pressure with underwater seal. General surgery is following for tracheostomy when stable and PLT count recovers. Will discuss with Dr. Calderon, plt count low at 56, but secondary to HOT which is hypercoagulable state Cardiovascular: A. fib RVR Cardiac arrest - asystole, status post CPR 11/27 History of CHF CAD Currently on Bertin-Synephrine 1 50 mcg/min to keep MAP>65mmHg. IV digoxin 0.25 mg 1 continue scheduled digoxin Restart amiodarone infusion for A. temo with RVR Lactic acid:2.2 on 12/07 Hydrocortisone 50mg IV Q12 Atorvastatin 80 daily on hold for elevated LFT's Cardiology - Dr. Reyes Echo showed EF 65-70% Renal: DAVID Monitor renal function, electrolytes replacement as needed Nephrology Dr. Ragland. 12/02 Vas-Cath placed for initiation of IHD . s/p HD 12/11 with 3L removed FEN/GI: Elevated LFT's GERD Monitor LFT's, US liver on 12/06: non diagnostic study US liver 12/09 limited study Hepatitis profile is negative On tube feeds On Nepro @40cc/hr. Pepcid for GI prophylaxis 12/03 PEG tube placement ID: Pneumonia MRSA, MDR Pseudomonas Leukocytosis ID following- Antibiotics per ID (on Micafungin, Zerbaxa, Flagyl) Stool for C. difficile negative on 11/29 and 12/06 Pertinent cultures 12/09 BC: NGTD 411 Urine cx: C. 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 Also in atrial fibrillation with RVR now. IV digoxin 0.25 mg IV 1, restart amiodarone infusion. May need cardioversion if the patient remains hypotensive and tachycardic. at the bedside was updated Problem Qualifiers (1) COPD (chronic obstructive pulmonary disease): Qualified Codes: J44.9 - Chronic obstructive pulmonary disease, unspecified (2) Leukocytosis: Qualified Codes: D72.829 - Elevated white blood cell count, unspecified Darwin Meadows MD Dec 13, 2017 13:42
--- NOTE | 2017-12-13 15:38 | HHI.NPPN ---
Subjective Renal Failure: Acute History of Present Illness This is a 77-year-old male with past medical history of ischemic heart disease, atrial fibrillation, congestive heart failure, possibly diastolic dysfunction, diabetes mellitus, chronic obstructive pulmonary disease, was admitted on 11/14 with respiratory distress. Nephrology was called to see the patient because of elevated BUN and creatinine. The patient has creatinine of 1.1 on admission, which increased after 2 or 3 to 1.3-1.5 and for the last 2 days, it has been going up and now it is 2.8. The patient was initially diagnosed with pneumonia and was started on antibiotics and then later on, patient developed respiratory failure and was intubated. He was also found to have asystole on 11/27 for 3 minutes and CPR was done with ACLS protocol, and it was shown that he has large right-sided pneumothorax. The blood pressure has been stable and there are no significant hypotensive episodes documented. Most of the history was taken from he patient' s chart. Additional Remarks Patient seen during dialysis. Hypotensive with Bertin-Synephrine infusing and AFIB RVR. (Adeola Velez) Review of Systems General General Remarks Unable to do ROS as patient is intubated (Adeola Velez) Objective Data Data 12/13/17 12/14/17 19:00 07:00 Output Total 2500 ml Balance -2500 ml Hemodialysis 2500 ml Vital Signs Date Time Temp Pulse Resp B/P (MAP) Pulse Ox O2 Delivery O2 Flow Rate FiO2 12/13/17 14:00 108 12/13/17 13:30 106 12/13/17 13:00 139 12/13/17 12:57 100 35 12/13/17 12:34 143 104/59 12/13/17 12:30 129 28 104/59 (74) 100 12/13/17 12:30 129 12/13/17 12:00 141 12/13/17 12:00 35 12/13/17 12:00 98.9 142 33 107/50 (69) 100 12/13/17 11:31 142 38 116/65 (82) 100 12/13/17 11:31 142 12/13/17 11:16 143 38 127/51 (76) 100 12/13/17 11:00 146 12/13/17 11:00 146 31 100/48 (65) 100 12/13/17 10:45 127 35 99/51 (67) 100 18 10:31 139 18 10:31 139 35 90/52 (65) 100 12/13/17 10:15 142 37 91/44 (60) 100 12/13/17 10:00 139 32 96/44 (61) 100 12/13/17 10:00 139 12/13/17 09:30 152 12/13/17 09:00 119 28 84/45 (58) 100 12/13/17 09:00 119 12/13/17 08:45 108 27 87/42 (57) 100 12/13/17 08:30 103 12/13/17 08:30 103 33 90/50 (63) 100 12/13/17 08:15 108 37 82/52 (62) 100 12/13/17 08:13 100 35 12/13/17 08:00 35 12/13/17 08:00 107 12/13/17 08:00 98.6 107 20 79/43 (55) 100 12/13/17 07:45 107 20 90/53 (65) 100 12/13/17 07:30 106 20 98/46 (63) 100 12/13/17 07:30 106 12/13/17 07:15 108 20 107/55 (72) 100 12/13/17 07:00 104 12/13/17 07:00 104 20 92/54 (67) 100 12/13/17 04:03 100 35 12/13/17 04:00 35 12/13/17 04:00 98.4 98 27 107/58 (74) 99 12/13/17 00:34 100 35 1618 00:00 35 18 00:00 98.2 93 21 116/65 (82) 100 18 20:07 100 35 18 20:00 98.5 89 20 115/66 (82) 100 18 20:00 35 18 19:11 102/68 18 18:00 92 18 16:46 98.4 94 20 100 12/12/17 16:00 97 18 16:00 35 18 16:00 98.5 97 21 97/57 (70) 100 (Adeola Velez) -: 12/13/17 0300 12/13/17 1350 Imaging Last Impressions Chest X-Ray 12/13/17 0000 Signed Impressions: Service Date/Time: Wednesday, December 13, 2017 04:01 - CONCLUSION: 1. Mild left base consolidation developing. 2. Right chest tube remains in place. No pneumothorax but chest wall emphysema persists. Abdiel Vidales MD Liver Ultrasound 12/09/17 0000 Signed Impressions: Service Date/Time: November 19:18 - CONCLUSION: 1. Limited suboptimal examination with only a small portion of the liver visualized. 2. The gallbladder and common bile duct could not be visualized. The pancreas is not evaluated. 3. Left pleural effusion. Liang Jimenez MD Head CT 12/08/17 0000 Signed Impressions: Service Date/Time: Friday, December 08, 2017 08:25 - CONCLUSION: Negative for acute process. Torin Dennison MD FACR Catheter Placement X-Ray 12/02/17 0000 Signed Impressions: Service Date/Time: November 10:47 - CONCLUSION: Uncomplicated right internal jugular Vas-Cath placement as above. incidental note is made of subcutaneous emphysema within the chest wall and neck Con Dennison MD Lower Extremity Ultrasound 11/29/17 0000 Signed Impressions: Service Date/Time: Wednesday, November 29, 2017 22:02 - CONCLUSION: Normal examination. Abdiel Mcintyre MD Renal Ultrasound 11/28/17 0000 Signed Impressions: Service Date/Time: Tuesday, November 28, 2017 20:30 - CONCLUSION: Nondiagnostic exam. Rashad Bose MD Tubes & Lines: Vas-Cath, [place] (Adeola VelezP) Physical Exam General Appearance: No Acute Distress, Obese (Adeola VelezP) Eyes Eye Exam: Pupils Equal (Adeola VelezP) Pulmonary Resp Exam: Breath Sounds Equal Resp Remarks SQ emphysema present Intubated CT right chest wall (Adeola VelezP) Cardiology CV Exam: Regular (Adeola VelezP) Gastrointestinal/Abdomen GI Exam: Soft, Non-Tender, Distended (Adeola Velez) Genitourinary Exam: Flank Non-Tender (Adeola Velez) Integumentary Skin Exam: Clear, Warm (Adeola Velez) Extremeties Extremities Exam: Moderate Edema (Adeola Velez) Neurologic Neuro Exam: Awake (Adeola Velez) Assessment/Plan Assessment Summary: DAVID/Acute Renal Failure Problem List: (1) DAVID (acute kidney injury) ICD Codes: N17.9 - Acute kidney failure, unspecified Plan: Acute kidney injury most likely related to prerenal vs acute tubular necrosis, either from the infection or related to his cardiac status and cardiac arrest. Renal US unable to visualize kidneys or bladder? Oliguric Plan Renal dose antibiotics Continue for follow UOP and BMP Avoid nephrotoxins as possible. Hemodialysis today with UF of 2.5 liters. (2) Respiratory failure ICD Codes: J96.90 - Respiratory failure, unspecified, unspecified whether with hypoxia or hypercapnia Plan: Intubated weaning per operation supervisor. (3) Thrombocytopenia ICD Codes: D69.6 - Thrombocytopenia, unspecified Plan: platelet transfusion. Hematology has been consulted. Order LDH. Etiology? (4) Anemia ICD Codes: D64.9 - Anemia, unspecified Plan: has received blood transfusion. (Adeola Velez) Problem List: (1) DAVID (acute kidney injury) ICD Codes: N17.9 - Acute kidney failure, unspecified Plan: Acute kidney injury most likely related to prerenal vs acute tubular necrosis, either from the infection or related to his cardiac status and cardiac arrest. Renal US unable to visualize kidneys or bladder? Oliguric Plan Renal dose antibiotics Continue for follow UOP and BMP Avoid nephrotoxins as possible. Hemodialysis today with UF of 2.5 liters. Patient seen and examined, agree with above. HD done, will follow and watch for renal recovery. (2) Respiratory failure ICD Codes: J96.90 - Respiratory failure, unspecified, unspecified whether with hypoxia or hypercapnia Plan: Intubated weaning per operation supervisor. (3) Thrombocytopenia ICD Codes: D69.6 - Thrombocytopenia, unspecified Plan: platelet transfusion. Hematology has been consulted. Order LDH. Etiology? (4) Anemia ICD Codes: D64.9 - Anemia, unspecified Plan: has received blood transfusion. (America Vela MD) Adeola Velez Dec 13, 2017 15:38 America Vela MD Dec 13, 2017 18:39
[2017-12-13] MEDS: LEVOFLOXACIN 250 MG PREMIX INJ 50 ML IV SCH (16:31)
--- NOTE | 2017-12-13 16:37 | HHI.IDPN ---
Note Infectious Disease Note Patient on the ventilator. Awake. Watching television. Dialysis was performed today. Blood pressure stable. Afebrile. White blood cell count has decreased but is still elevated. The feet are no longer weeping and the skin appears dry. Blood cultures no growth Repeat sputum culture has multiple resistant Pseudomonas aeruginosa. Wound culture from 12/08 has Nette. Previous urine culture on 11/28 had Nette. Patient was treated with Diflucan. Chest tube in place on the right due to pneumothorax. Ultimately 30 cc drained over the last 12 hours. 77-year-old, white male who presents to the Emergency Department with shortness of breath. The patient has a history of COPD and CHF. He usually uses CPAP at the assisted living facility. He was noted to have been developing coughing and shortness of breath over the past couple of days, and his states that he was coughing a lot yesterday and bringing up mostly phlegm and that he was restless and could not sleep. Recently treated at [facility] for pneumonia due to methicillin-resistant Staphylococcus aureus. PAST MEDICAL HISTORY: COPD, CHF, atrial fibrillation, insulin-dependent diabetes mellitus, hypertension, hyperlipidemia, gastroesophageal reflux, gastroparesis, iron deficiency anemia, oxygen-dependent. PAST SURGICAL HISTORY: Right knee surgery, right carpal tunnel release, cardiac ablation treatment 2002. ALLERGIES: ASPIRIN, CODEINE. MEDICATIONS: OBJECTIVE: Vital Signs Date Time Temp Pulse Resp B/P (MAP) Pulse Ox O2 Delivery O2 Flow Rate FiO2 12/13/17 14:00 108 12/13/17 13:30 106 12/13/17 13:00 139 12/13/17 12:57 100 35 12/13/17 12:34 143 104/59 12/13/17 12:30 129 28 104/59 (74) 100 12/13/17 12:30 129 12/13/17 12:00 141 12/13/17 12:00 35 12/13/17 12:00 98.9 142 33 107/50 (69) 100 12/13/17 11:31 142 38 116/65 (82) 100 12/13/17 11:31 142 12/13/17 11:16 143 38 127/51 (76) 100 12/13/17 11:00 146 12/13/17 11:00 146 31 100/48 (65) 100 12/13/17 10:45 127 35 99/51 (67) 100 12/13/17 10:31 139 12/13/17 10:31 139 35 90/52 (65) 100 12/13/17 10:15 142 37 91/44 (60) 100 12/13/17 10:00 139 32 96/44 (61) 100 12/13/17 10:00 139 12/13/17 09:30 152 12/13/17 09:00 119 28 84/45 (58) 100 12/13/17 09:00 119 12/13/17 08:45 108 27 87/42 (57) 100 12/13/17 08:30 103 12/13/17 08:30 103 33 90/50 (63) 100 12/13/17 08:15 108 37 82/52 (62) 100 12/13/17 08:13 100 35 12/13/17 08:00 35 12/13/17 08:00 107 12/13/17 08:00 98.6 107 20 79/43 (55) 100 12/13/17 07:45 107 20 90/53 (65) 100 12/13/17 07:30 106 20 98/46 (63) 100 12/13/17 07:30 106 12/13/17 07:15 108 20 107/55 (72) 100 12/13/17 07:00 104 12/13/17 07:00 104 20 92/54 (67) 100 12/13/17 04:03 100 35 12/13/17 04:00 35 12/13/17 04:00 98.4 98 27 107/58 (74) 99 12/13/17 00:34 100 35 12/13/17 00:00 35 12/13/17 00:00 98.2 93 21 116/65 (82) 100 12/12/17 20:07 100 35 12/12/17 20:00 98.5 89 20 115/66 (82) 100 12/12/17 20:00 35 12/12/17 19:11 102/68 12/12/17 18:00 92 12/12/17 16:46 98.4 94 20 100 Laboratory Tests Test 12/12/17 03:58 12/12/17 20:15 12/13/17 03:00 White Blood Count 22.9 TH/MM3 20.7 TH/MM3 Red Blood Count 2.53 MIL/MM3 3.72 MIL/MM3 Hemoglobin 6.7 GM/DL 9.9 GM/DL 10.2 GM/DL Hematocrit 21.2 % 29.9 % 31.1 % Mean Corpuscular Volume 84.0 FL 83.4 FL Mean Corpuscular Hemoglobin 26.5 PG 27.3 PG Mean Corpuscular Hemoglobin Concent 31.6 % 32.8 % Red Cell Distribution Width 19.7 % 17.0 % Platelet Count 18 TH/MM3 59 TH/MM3 56 TH/MM3 Mean Platelet Volume 9.2 FL 8.6 FL Neutrophils (%) (Auto) 86.9 % 80.9 % Lymphocytes (%) (Auto) 7.2 % 11.9 % Monocytes (%) (Auto) 5.9 % 7.0 % Eosinophils (%) (Auto) 0.0 % 0.0 % Basophils (%) (Auto) 0.0 % 0.2 % Neutrophils # (Auto) 19.9 TH/MM3 16.7 TH/MM3 Lymphocytes # (Auto) 1.6 TH/MM3 2.5 TH/MM3 Monocytes # (Auto) 1.3 TH/MM3 1.4 TH/MM3 Eosinophils # (Auto) 0.0 TH/MM3 0.0 TH/MM3 Basophils # (Auto) 0.0 TH/MM3 0.0 TH/MM3 CBC Comment AUTO DIFF AUTO DIFF Differential Total Cells Counted 100 Neutrophils % (Manual) 97 % Lymphocytes % 2 % Monocytes % 1 % Neutrophils # (Manual) 22.2 TH/MM3 Nucleated Red Blood Cells 5 /100 WBC Differential Comment FINAL DIFF MANUAL AUTO DIFF CONFIRMED Toxic Granulation 1+ Platelet Estimate LOW LOW Platelet Morphology Comment ENLARGED NORMAL Basophilic Stippling FAINT Ovalocytes 1+ 1+ Haptoglobin 253 MG/DL Laboratory Tests Test 12/12/17 03:58 12/12/17 20:15 12/13/17 03:00 12/13/17 13:50 Blood Urea Nitrogen 65 MG/DL 77 MG/DL Creatinine 2.50 MG/DL 2.87 MG/DL Random Glucose 187 MG/DL 159 MG/DL Total Protein 5.1 GM/DL 5.3 GM/DL Albumin 3.2 GM/DL 3.0 GM/DL Calcium Level 6.8 MG/DL 7.2 MG/DL Alkaline Phosphatase 269 U/L 335 U/L Aspartate Amino Transf (AST/SGOT) 54 U/L 44 U/L Alanine Aminotransferase (ALT/SGPT) 55 U/L 50 U/L Total Bilirubin 1.1 MG/DL 0.9 MG/DL Sodium Level 139 MEQ/L 139 MEQ/L Potassium Level 3.4 MEQ/L 3.0 MEQ/L 3.3 MEQ/L Chloride Level 100 MEQ/L 100 MEQ/L Carbon Dioxide Level 26.3 MEQ/L 26.3 MEQ/L Anion Gap 13 MEQ/L 13 MEQ/L Estimat Glomerular Filtration Rate 25 ML/MIN 21 ML/MIN Protein Corrected Calcium 7.8 MG/DL 8.2 MG/DL Iron Level 27 MCG/DL Total Iron Binding Capacity 164 MCG/DL Percent Iron Saturation 16.5 % Ferritin 115 NG/ML Lactate Dehydrogenase 399 U/L Vitamin B12 Level 713 PG/ML Imaging: Chest X-Ray 12/13/17 0000 Signed Impressions: Service Date/Time: Wednesday, December 13, 2017 04:01 - CONCLUSION: 1. Mild left base consolidation developing. 2. Right chest tube remains in place. No pneumothorax but chest wall emphysema persists. Abdiel Vidales MD Chest X-Ray 12/12/17 0000 Signed Impressions: Service Date/Time: Tuesday, December 12, 2017 08:50 - CONCLUSION: Stable with extensive right subcutaneous emphysema. Torin Dennison MD FACR Chest X-Ray 12/11/17 0000 Signed Impressions: Service Date/Time: Monday, December 11, 2017 10:51 - CONCLUSION: Stable chest with moderate subcutaneous emphysema and no pneumothorax. Torin Dennison MD FACR Chest X-Ray 12/09/17 0600 Signed Impressions: Service Date/Time: November 03:05 - CONCLUSION: Tiny right apical pneumothorax. Nikunj Oneil MD Head CT 12/08/17 0000 Signed Impressions: Service Date/Time: Friday, December 08, 2017 08:25 - CONCLUSION: Negative for acute process. Torin Dennison MD FACR Chest X-Ray 12/08/17 0000 Signed Impressions: Service Date/Time: Friday, December 08, 2017 10:25 - CONCLUSION: Right chest tube with increasing subcutaneous emphysema and trace pneumothorax. Torin Dennison MD FACR Chest X-Ray 12/07/17 0000 Signed Impressions: Service Date/Time: Thursday, December 07, 2017 21:21 - CONCLUSION: 1. Right- sided chest tube in place with no visualized pneumothorax. There is been interval decrease in subcutaneous emphysema over the right lateral chest wall. 2. Stable blunting of left costophrenic angle with hazy opacity remaining at the left lung base. Liang Jimenez MD Chest X-Ray 12/07/17 0000 Signed Impressions: Service Date/Time: Thursday, December 07, 2017 08:57 - CONCLUSION: 1. Right chest tube remains present and there is a potential small right apical pneumothorax present. Right chest wall subcutaneous emphysema is stable. 2. Stable left basilar opacity with blunting of the left costophrenic sulcus. Abdiel Kwon MD PHYSICAL EXAMINATION: GENERAL: Sedated. Awake. HEENT: No icterus. EOMI. moist mucosa. NECK: No swelling or adenopathy. LUNGS: Decreased breath sounds. HEART: Regular S1 and S2. No murmurs, rubs or gallops. ABDOMEN: Bowel sounds present, obese, soft. Non tender. EXTREMITIES: 3+ diffuse edema. Cyanosis at the tips of the toes. The feet are warm. SKIN: No diffuse rash. NEUROLOGIC: Nonfocal. Following commands. PSYCHIATRIC: Calm and cooperative. IMPRESSION: 1. Sepsis. 2. Pneumonia - Pseudomonas MDR. Latest sputum culture - Pseudomonas. Could be colonization. However with his seriously ill clinical condition he may have ongoing pneumonia. 3. Acute respiratory failure. Vent dependent. Extubated previously and appears to have aspirated. 4. Leukocytosis. WBC remains increased. 5. Nette glabrata UTI. Persistent despite management with Diflucan. Last urine culture on 12/08 had Nette glabrata. 6. Right-sided pneumothorax. Subcutaneous emphysema. 7. History of chronic obstructive pulmonary disease and recent chronic obstructive pulmonary disease exacerbation. 8. Renal failure. Receiving hemodialysis. 9. Elevated liver function tests. LFT is decreasing. Appears to be stable. RECOMMENDATIONS: 1. Continue Micafungin. Patient has been on broad-spectrum antibiotics and has potential for systemic fungal infection. LFTs increase could be due to Diflucan. Monitor liver function. 2. Repeat the urine culture. 3. Continue Zerbaxa for pneumonia. 4. Continue Levaquin. 5. Continue metronidazole. 5. Monitor white blood cell count. 6. Monitor clinical status. Discussed with at bedside. Tom Long MD Dec 13, 2017 16:37
--- NOTE | 2017-12-13 18:38 | PD.WCN.NOT ---
Wound Consult Description: Received wound management consult of sacral DTI from Doctor Heather Communicated with: Doctor Alonso and RN Radha Recommendation: 1.Please cleanse wound to sacrum/ bilateral buttocks with wound cleanser or normal saline gently and pat dry. Cleanse patient of stool with Remedy barrier wipes.Apply thick layer of Calazime skin protectant paste to bilateral buttocks , and sacrum covering wound BID and PRN. Please leave open to air. 2. Use ultra sorb pads for management of incontinence and drainage from wound. 3. Please obtain airapy bed from [facility] or if not available please order K4 bed from [facility] [employer] 4. Turn patient every 2 hours and PRN for comfort and offloading of pressure from lakisha prominences Additional Information: Patient seen on IMC with RN Radha Powell [facility] for evaluation of wound to sacral area. Patient was turned with the total assistance of Radha Oakley RN IMC and sheet writer to the L side for wound assessment. Patinet is noted with large wound to sacral and bilateral inner buttock area. Wound presents as a deep tissue injury opening to unstageable pressure injury. Wound was cleansed with normal saline and gauze pads and patted dry.Opened areas within the wound bed are vascular with minimal active sanguinous drainage that is without odor. Wound margins are poorly defined wound has an oval shape. Periwound presents with macerated blanchable light purple discoloration. Wound etiology appears to be mixed, moisture, pressure and friction. Wound measures 10cm x 7 cm x eschar. Wound bed presents with ~30% opened vascular red non granulation tissue ~40% black eschar and ~30% deep purple non blanchable intact skin. Applied thick layer of Calazime skin protectant paste and left wound to sacrum/ bilateral inner buttocks open to air. Pressure was offloaded from sacral area with pillow in place for support. patient was repositioned in bed for comfort by sheet writer and RN Blanca Joyner [facility] Dec 13, 2017 18:38
[2017-12-14] VITALS (86 sets, daily range): BP systolic 79–135; BP diastolic 50–71; PULSE 80–110; RESP 3–32; TEMP 98–98.9; O2SAT 95–100
[2017-12-14] MEDS: INSULIN ASPART SUPPLEMENTAL SCALE SQ SCH ×6 (04:00→23:47)
[2017-12-14] MEDS: CHLORHEXIDINE GLUCONATE 2 % 1 PACK (2 CLOTHS) TOP SCH (04:00)
[2017-12-14 05:06] LABS: AUTOMATED NEUTROPHIL # 13.8 TH/MM3 (1.8-7.7); BASOPHIL % 0.1 % (0.0-2.0); HEMATOCRIT 32.1 % (39.0-51.0); HEMOGLOBIN 10.6 GM/DL (13.0-17.0); LYMPH % 9.3 % (9.0-44.0); LYMPHOCYTE # 1.5 TH/MM3 (1.0-4.8); MEAN PLATELET VOLUME 9.5 FL (7.0-11.0); MONOCYTE # 0.8 TH/MM3 (0-0.9); NEUT % 85.6 % (16.0-70.0); PLATELET COUNT 54 TH/MM3 (150-450); RED BLOOD COUNT 3.78 MIL/MM3 (4.50-5.90); RED CELL DISTRIBUTION WIDTH 17.2 % (11.6-17.2); WHITE BLOOD COUNT 16.1 TH/MM3 (4.0-11.0)
[2017-12-14 05:08] LABS: ALBUMIN 3.2 GM/DL (3.4-5.0); ALKALINE PHOSPHATASE 380 U/L (45-117); ALT (GPT) 40 U/L (12-78); AST (GOT) 35 U/L (15-37); BICARBONATE 26.8 MEQ/L (21.0-32.0); BLOOD UREA NITROGEN 62 MG/DL (7-18); CALCIUM 7.9 MG/DL (8.5-10.1); CHLORIDE 105 MEQ/L (98-107); CREATININE 2.43 MG/DL (0.60-1.30); GLOMERULAR FILTRATION RATE 26 ML/MIN (>89); GLUCOSE,RANDOM 123 MG/DL (74-106); MAGNESIUM 2.1 MG/DL (1.5-2.5); SODIUM (NA) 143 MEQ/L (136-145); TOTAL PROTEIN 5.6 GM/DL (6.4-8.2)
[2017-12-14] MEDS: metroNIDAZOLE 500 MG TAB PO SCH ×4 (05:41→23:47)
[2017-12-14] MEDS: CEFTOLOZANE-TAZOBACTAM INJ 150 MG in SODIUM CHLORIDE 0.9% INJ 100 ML IV SCH ×3 (05:41→23:50)
--- NOTE | 2017-12-14 06:03 | RADRPT ---
EXAM DATE/TIME: 12/14/2017 04:58 [place] COMPARISON: No previous studies available for comparison. INDICATIONS : Short of breath. MEDICAL HISTORY : Cardiovascular disease. Hypertension Chronic obstructive pulmonary disease. CHF Diabetes SURGICAL HISTORY : None. ENCOUNTER: Subsequent ACUITY: 2 weeks PAIN SCORE: 0/10 LOCATION: Bilateral chest FINDINGS: Left base consolidation decreasing, now mild. Right chest tube remains in place. A small basilar pneumothorax is currently evident. No tension seen . No pneumothorax on the left. Normal, stable heart size. Endotracheal tube tip 5 cm above the toña. Bilateral internal jugular ce ntral venous catheters with tips in the superior vena cava again noted. CONCLUSION: 1. Right chest tube remains in place. A small basilar pneumothorax is present. 2. Improving left base consolidation. Abdiel Vidales MD on December 14, 2017 at 6:00 Board Certified Radiologist. This report was verified electronically.
[2017-12-14 07:14] LABS: BANDS 4 % (0-6); CORRECTED NUCLEATED RBC 4 /100 WBC (0-0); LYMPHOCYTES 7 % (9-44); MONOCYTES 3 % (0-8); NEUTROPHIL # MANUAL DIFF 14.5 TH/MM3 (1.8-7.7); NUCLEATED RED BLOOD CELL 4 (0-0); OVALOCYTES 1+ (NORMAL); POLYS (SEG NEUTROPHILS) 86 % (16-70)
[2017-12-14] MEDS: FAMOTIDINE 20 MG TAB PO SCH ×2 (07:27→20:24)
[2017-12-14] MEDS: CALCITRIOL 0.25 MCG CAP PO SCH (07:27)
[2017-12-14] MEDS: CHLORHEXIDINE 0.12% (ORAL KIT) 15 ML CUP MT SCH ×2 (07:27→20:26)
[2017-12-14] MEDS: LANTHANUM CARBONATE 500 MG CHEWABLE TABLET CHEW SCH ×3 (07:27→17:27)
[2017-12-14] MEDS: BUDESONIDE-FORMOTEROL 160/4.5 MCG INHALER INH SCH ×2 (07:27→21:00)
[2017-12-14] MEDS: SODIUM CHLORIDE 0.9% FLUSH 10 ML FLUSH IV FLUSH SCH ×2 (07:28→20:24)
[2017-12-14] MEDS: DOCUSATE SODIUM 50 MG/SENNA 8.6 MG TAB PO SCH ×2 (07:28→20:24)
--- NOTE | 2017-12-14 07:52 | HHI.PR ---
Subjective Subjective Notes Re-consult for trach placement. Patient remains on vasopressors. Respiratory status stable. 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 Platelets 54 this am. No bleeding. Objective Vitals/I&O Vital Signs Date Time Temp Pulse Resp B/P (MAP) Pulse Ox O2 Delivery O2 Flow Rate FiO2 12/14/17 07:05 96 35 12/14/17 06:00 102 12/14/17 04:00 98.9 12 98/56 (70) Labs Laboratory Tests Test 12/13/17 13:50 12/14/17 04:00 Potassium Level 3.3 3.6 White Blood Count 16.1 Red Blood Count 3.78 Hemoglobin 10.6 Hematocrit 32.1 Mean Corpuscular Volume 85.0 Mean Corpuscular Hemoglobin 28.0 Mean Corpuscular Hemoglobin Concent 33.0 Red Cell Distribution Width 17.2 Platelet Count 54 Mean Platelet Volume 9.5 Neutrophils (%) (Auto) 85.6 Lymphocytes (%) (Auto) 9.3 Monocytes (%) (Auto) 5.0 Eosinophils (%) (Auto) 0.0 Basophils (%) (Auto) 0.1 Neutrophils # (Auto) 13.8 Lymphocytes # (Auto) 1.5 Monocytes # (Auto) 0.8 Eosinophils # (Auto) 0.0 Basophils # (Auto) 0.0 CBC Comment AUTO DIFF Differential Total Cells Counted 100 Neutrophils % (Manual) 86 Band Neutrophils % 4 Lymphocytes % 7 Monocytes % 3 Neutrophils # (Manual) 14.5 Nucleated Red Blood Cells 4 Differential Comment FINAL DIFF MANUAL Platelet Estimate LOW Platelet Morphology Comment NORMAL Ovalocytes 1+ Activated Partial Thromboplast Time 51.8 Blood Urea Nitrogen 62 Creatinine 2.43 Random Glucose 123 Total Protein 5.6 Albumin 3.2 Calcium Level 7.9 Magnesium Level 2.1 Alkaline Phosphatase 380 Aspartate Amino Transf (AST/SGOT) 35 Alanine Aminotransferase (ALT/SGPT) 40 Total Bilirubin 1.0 Sodium Level 143 Chloride Level 105 Carbon Dioxide Level 26.8 Anion Gap 11 Estimat Glomerular Filtration Rate 26 Date/Time Source Procedure Growth Status 12/09/17 23:59 Blood Peripheral Aerobic Blood Culture - Preliminary NO GROWTH IN 3 DAYS Resulted 12/09/17 23:59 Blood Peripheral Anaerobic Blood Culture - Final QNS - SEE AEROBE REPORT Resulted 12/06/17 17:55 Sputum Endotracheal Gram Stain - Final Complete 12/06/17 17:55 Sputum Culture - Final Pseudomonas Aeruginosa Multi-Drug Resistant Complete 12/14/17 05:00 Urine Catheterized Urine Urine Culture Pending Received Narrative Exam Ventilated CV: amiodarone gtt, phenylephrine gtt Neck: trachea midline and palpable A/P Assessment and Plan 77 yo M prolonged respiratory failure in need of tracheostomy. Argatroban has been held since midnight. Discussed with Dr. Meadows and patient is fairly stable, and is in need of tracheostomy. This is appropriate time to proceed. KvngDuncan MD Dec 14, 2017 07:52
[2017-12-14] MEDS: INSULIN DETEMIR 100 UNITS/ML VIAL SQ SCH ×2 (09:00→20:24)
[2017-12-14] MEDS ORDERED: MIDAZOLAM HCL 5 MG/ML VIAL (1 ML) IV PUSH ONE (09:30)
--- NOTE | 2017-12-14 09:31 | PD.ONC.PN ---
Subjective Subjective Remarks Afebrile overnight. patient intubated, awake. at bedside. argatroban held since midnight in preparation for trach placement today. Objective Data Date Time Temp Pulse Resp B/P (MAP) Pulse Ox O2 Delivery O2 Flow Rate FiO2 12/14/17 07:05 96 35 12/14/17 06:00 102 12/14/17 04:06 98 35 12/14/17 04:00 98.9 99 12 98/56 (70) 98 12/14/17 04:00 96 12/14/17 04:00 35 12/14/17 03:45 105 8 91/55 (67) 98 12/14/17 03:30 103 16 99/55 (70) 98 12/14/17 03:15 105 15 129/71 (90) 99 12/14/17 03:00 96 3 100/60 (73) 98 12/14/17 02:45 101 20 103/56 (72) 98 12/14/17 02:30 96 20 101/60 (74) 98 12/14/17 02:15 101 20 97/56 (70) 98 12/14/17 02:00 96 20 103/59 (74) 98 12/14/17 02:00 96 12/14/17 01:45 102 20 103/69 (80) 98 12/14/17 01:30 101 20 106/61 (76) 98 12/14/17 01:15 99 20 97/59 (72) 97 12/14/17 01:00 97 20 112/56 (74) 98 12/14/17 00:45 103 21 120/71 (87) 98 12/14/17 00:30 101 20 112/58 (76) 98 12/14/17 00:19 98 35 12/14/17 00:00 35 12/14/17 00:00 101 12/14/17 00:00 98.9 98 23 121/57 (78) 97 12/13/17 23:45 99 20 103/54 (70) 98 12/13/17 23:30 99 20 97/56 (70) 98 12/13/17 23:15 101 20 97/60 (72) 98 12/13/17 23:02 107 26 107/61 (76) 98 12/13/17 23:00 94 19 77/43 (54) 97 4/16/18 22:46 108 22 93/56 (68) 98 4/16/18 22:45 103 26 98 4/16/18 22:30 99 23 108/56 (73) 98 4/16/18 22:15 103 21 111/58 (75) 98 4/16/18 22:00 91 4/16/18 22:00 91 22 106/59 (75) 97 4/16/18 21:45 96 20 98/58 (71) 98 4/16/18 21:31 98 35 4/16/18 21:30 99 17 91/52 (65) 97 4/16/18 21:29 109 93/56 4/16/18 21:15 103 20 93/56 (68) 98 4/16/18 21:00 105 27 80/51 (61) 97 4/16/18 20:45 97 20 88/52 (64) 98 4/16/18 20:45 97 88/52 4/16/18 20:38 98 20 106/56 (73) 98 4/16/18 20:30 97 20 73/45 (54) 97 4/16/18 20:15 110 20 87/58 (68) 98 4/16/18 20:00 35 4/16/18 20:00 98.7 100 20 85/52 (63) 97 4/16/18 20:00 100 4/16/18 18:55 98 4/16/18 18:00 112 4/16/18 17:00 107 20 99/50 (66) 97 4/16/18 17:00 107 4/16/18 16:51 98 35 4/16/18 16:30 99 20 113/55 (74) 98 4/16/18 16:30 99 4/16/18 16:00 35 4/16/18 16:00 99.0 106 22 104/52 (69) 98 4/16/18 16:00 106 4/16/18 15:30 97 4/16/18 15:00 108 20 121/58 (79) 98 4/16/18 15:00 108 4/16/18 14:30 109 21 108/55 (72) 4/16/18 14:00 108 4/16/18 14:00 108 26 91/49 (63) 99 4/16/18 13:30 106 4/16/18 13:30 106 25 97/52 (67) 100 12/13/17 13:00 139 29 101/51 (68) 100 12/13/17 13:00 139 12/13/17 12:57 100 35 12/13/17 12:34 143 104/59 12/13/17 12:30 129 28 104/59 (74) 100 12/13/17 12:30 129 12/13/17 12:00 141 12/13/17 12:00 35 12/13/17 12:00 98.9 142 33 107/50 (69) 100 12/13/17 11:31 142 38 116/65 (82) 100 12/13/17 11:31 142 12/13/17 11:16 143 38 127/51 (76) 100 12/13/17 11:00 146 12/13/17 11:00 146 31 100/48 (65) 100 12/13/17 10:45 127 35 99/51 (67) 100 12/13/17 10:31 139 12/13/17 10:31 139 35 90/52 (65) 100 12/13/17 10:15 142 37 91/44 (60) 100 12/13/17 10:00 139 32 96/44 (61) 100 12/13/17 10:00 139 12/13/17 09:30 152 12/14/17 12/14/17 12/14/17 06:59 14:59 22:59 Intake Total 650 ml Output Total 35 ml Balance 615 ml Result Diagram: 12/14/17 0400 12/14/17 0400 Laboratory Results Laboratory Tests Test 12/13/17 13:50 12/14/17 04:00 Potassium Level 3.3 MEQ/L 3.6 MEQ/L White Blood Count 16.1 TH/MM3 Red Blood Count 3.78 MIL/MM3 Hemoglobin 10.6 GM/DL Hematocrit 32.1 % Mean Corpuscular Volume 85.0 FL Mean Corpuscular Hemoglobin 28.0 PG Mean Corpuscular Hemoglobin Concent 33.0 % Red Cell Distribution Width 17.2 % Platelet Count 54 TH/MM3 Mean Platelet Volume 9.5 FL Neutrophils (%) (Auto) 85.6 % Lymphocytes (%) (Auto) 9.3 % Monocytes (%) (Auto) 5.0 % Eosinophils (%) (Auto) 0.0 % Basophils (%) (Auto) 0.1 % Neutrophils # (Auto) 13.8 TH/MM3 Lymphocytes # (Auto) 1.5 TH/MM3 Monocytes # (Auto) 0.8 TH/MM3 Eosinophils # (Auto) 0.0 TH/MM3 Basophils # (Auto) 0.0 TH/MM3 CBC Comment AUTO DIFF Differential Total Cells Counted 100 Neutrophils % (Manual) 86 % Band Neutrophils % 4 % Lymphocytes % 7 % Monocytes % 3 % Neutrophils # (Manual) 14.5 TH/MM3 Nucleated Red Blood Cells 4 /100 WBC Differential Comment FINAL DIFF MANUAL Platelet Estimate LOW Platelet Morphology Comment NORMAL Ovalocytes 1+ Activated Partial Thromboplast Time 51.8 SEC Blood Urea Nitrogen 62 MG/DL Creatinine 2.43 MG/DL Random Glucose 123 MG/DL Total Protein 5.6 GM/DL Albumin 3.2 GM/DL Calcium Level 7.9 MG/DL Magnesium Level 2.1 MG/DL Alkaline Phosphatase 380 U/L Aspartate Amino Transf (AST/SGOT) 35 U/L Alanine Aminotransferase (ALT/SGPT) 40 U/L Total Bilirubin 1.0 MG/DL Sodium Level 143 MEQ/L Chloride Level 105 MEQ/L Carbon Dioxide Level 26.8 MEQ/L Anion Gap 11 MEQ/L Estimat Glomerular Filtration Rate 26 ML/MIN Culture Results Microbiology Date/Time Source Procedure Growth Status 12/14/17 05:00 Urine Catheterized Urine Urine Culture Pending Received Imaging Studies Last 24 hours Impressions Chest X-Ray 12/14/17 0600 Signed Impressions: Service Date/Time: Thursday, December 14, 2017 04:58 - CONCLUSION: 1. Right chest tube remains in place. A small basilar pneumothorax is present. 2. Improving left base consolidation. Abdiel Vidales MD Administered Medications Medications (Trade) Dose Ordered Sig/Yani Route PRN Reason Start Time Stop Time Status Last Admin Dose Admin Sodium Chloride (NS Flush) 2 ml UNSCH PRN IV FLUSH FLUSH AFTER USING IV ACCESS 11/14/17 15:45 11/17/17 14:05 Sodium Chloride (NS Flush) 2 ml BID IV FLUSH 11/14/17 21:00 12/14/17 07:28 Ondansetron HCl (Zofran Inj) 4 mg Q6H PRN IV PUSH NAUSEA OR VOMITING 11/14/17 15:45 11/18/17 16:03 Miscellaneous Information 1 Q361D XX 11/14/17 15:45 11/14/17 15:45 Chlorhexidine Gluconate (Chlorhexidine 2% Cloth) Taper DAILY@04 TOP 11/15/17 04:00 11/11/18 03:59 12/07/17 04:00 Senna/Docusate Sodium (Ricarda-Colace) 1 tab BID PO 11/14/17 21:00 12/12/17 21:43 Apixaban (Eliquis) 5 mg BID PO 11/14/17 21:00 Future Hold 11/27/17 20:17 Atorvastatin Calcium (Lipitor) 80 mg HS PO 11/14/17 21:00 Future Hold 12/05/17 19:49 Digoxin (Lanoxin) 0.125 mg DAILY PO 11/15/17 09:00 Future Hold 11/17/17 08:24 Diltiazem HCl (Cardizem) 60 mg QID PO 11/14/17 18:00 Future Hold 12/06/17 08:44 Hydralazine HCl (Apresoline Inj) 20 mg Q4H PRN IV PUSH SYS BP GREATER THAN 160 MMHG 11/17/17 12:00 11/22/17 07:38 Budesonide/ Formoterol Fumarate (Symbicort 160-4.5 Mcg Inh) 2 puff Q12HR INH 11/18/17 21:00 12/14/17 07:27 Chlorhexidine Gluconate (Peridex 0.12% Liq) 15 ml BID@08,20 MT 11/19/17 08:00 12/14/17 07:27 Albuterol/ Ipratropium (Duoneb Neb) 1 ampule Q2HR NEB PRN INH WHEEZING 11/18/17 22:30 12/13/17 08:12 Famotidine (Pepcid) 10 mg BID PO 11/22/17 21:00 12/14/17 07:27 Insulin Aspart (NovoLOG SUPPLEMENTAL SCALE) 1 Q4HR SQ 11/26/17 16:00 12/13/17 20:00 Dextrose (D50w (Vial) Inj) 25 ml UNSCH PRN IV HYPOGLYCEMIA-SEE COMMENTS 11/26/17 15:30 12/04/17 01:18 Fentanyl Citrate 250 ml @ 5 mls/hr TITRATE PRN IV SEDATION 11/27/17 13:45 12/03/17 08:58 Sodium Chloride 1,000 ml @ 0 mls/hr Q0M PRN OTHER For Prime & Rinse Back 12/02/17 09:30 12/08/17 16:50 Mannitol (Mannitol Inj) 12.5 gm UNSCH PRN IV WITH DIALYSIS 12/02/17 09:30 12/13/17 10:51 Albumin Human 100 ml @ 60 mls/hr UNSCH PRN IV WITH DIALYSIS 12/02/17 09:30 12/13/17 10:52 Sodium Chloride (NS Flush) 5 ml UNSCH PRN IV FLUSH WITH DIALYSIS 12/02/17 09:30 12/08/17 16:51 Heparin Sodium (Porcine) (Heparin Inj) UNSCH PRN .XX WITH DIALYSIS 12/02/17 09:30 12/08/17 16:50 Gentamicin Sulfate (Gentamicin Inj) 20 mg UNSCH PRN OTHER WITH DIALYSIS 12/02/17 09:30 12/13/17 10:52 Epoetin Kvng (Epogen Inj) 4,000 units UNSCH PRN IV PUSH WITH DIALYSIS 12/02/17 09:30 12/10/17 11:45 Micafungin Sodium 150 mg/Sodium Chloride 100 ml @ 100 mls/hr Q24H IV 12/06/17 12:00 12/13/17 12:09 Hydrocortisone Sodium Succinate (SoluCORTEF INJ) 50 mg Q12H IV PUSH 12/07/17 23:00 12/13/17 23:03 Insulin Detemir (Levemir Inj) 5 units Q12HR SQ 12/07/17 12:00 12/13/17 20:40 Lanthanum Carbonate (Fosrenol Chew) 500 mg TID CHEW 12/07/17 18:00 12/14/17 07:27 Calcitriol (Rocaltrol) 0.5 mcg DAILY PO 12/08/17 09:00 12/14/17 07:27 Ceftolozane/ Tazobactam 150 mg/ Sodium Chloride 100 ml @ 100 mls/hr Q8H IV 12/08/17 23:00 12/14/17 05:41 Levofloxacin/ Dextrose 50 ml @ 50 mls/hr Q24H IV 12/08/17 16:00 12/13/17 16:31 Norepinephrine Bitartrate 250 ml @ 7.5 mls/hr TITRATE PRN IV Blood pressure management 12/08/17 21:00 12/10/17 03:00 Metronidazole (Flagyl) 500 mg Q6HR PO 12/10/17 13:30 12/14/17 05:41 Phenylephrine HCl 160 mg/Dextrose 500 ml @ 7.5 mls/hr TITRATE PRN IV Blood pressure management 12/10/17 19:30 12/12/17 04:05 Argatroban 250 mg/ Sodium Chloride 252.5 ml @ 3.03 mls/hr TITRATE PRN IV aPTT < 50 12/12/17 18:00 12/12/17 21:54 Amiodarone HCl 450 mg/Sodium Chloride 250 ml @ 33.33 mls/ hr Q7H31M PRN IV Per Protocol 12/13/17 12:30 12/13/17 21:29 Objective Remarks GENERAL: intubated, sedated male, lying in hospital bed. SKIN: Warm and dry. HEAD: Normocephalic. EYES: No injection or drainage. NECK: Supple, trachea midline. CARDIOVASCULAR: +S1/S2 RESPIRATORY: on mechanical ventilation GASTROINTESTINAL: Abdomen distended. EXTREMITIES: +mottling in tips of toes. +BLE mild edema. NEUROLOGICAL: intubated. does not follow commands, does not track with eyes. Assessment/Plan Problem List: (1) Thrombocytopenia ICD Codes: D69.6 - Thrombocytopenia, unspecified Plan: --high probability of underlying heparin-induced thrombocytopenia. --HIT antibody positive, [place] pending. --on Argatroban drip. --transfuse for platelet count less than 10 (2) Normocytic anemia ICD Codes: D64.9 - Anemia, unspecified Plan: --likely due to sepsis and consumptive phenomena. --no indication of vitamin deficiency --yelena negative. --stool occult blood pending. --LDH and haptoglobin both elevated, no indication of hemolysis. Transfuse to keep hemoglobin greater than 7. (3) Sepsis ICD Codes: A41.9 - Sepsis, unspecified organism Plan: --on abx --Sputum cultures positive for Klebsiella pneumoniae and Pseudomonas. --Urine was positive for Nette glabrata. Assessment 77y/o male with sepsis. Hematology consulted for thrombocytopenia, HIT positive. history of COPD, CHF, atrial fibrillation and diabetes. hypertension, obstructive sleep apnea with BiPAP, right carpal tunnel syndrome, depression, anxiety, history of MRSA pneumonia, iron deficiency anemia, hyperlipidemia, gastroparesis. Plan 1. okay to hold Argatroban ricarda-trach procedure 2. resume when cleared by surgery 3. monitor CBC Attending Statement The exam, history, and the medical decision-making described in the above note were completed with the assistance of the mid-level provider. I reviewed and agree with the findings presented. I attest that I had a [id number] encounter with the patient on the same day, and personally performed and documented my assessment and findings in the medical record. critically ill Argatroban GTT [place] pending PLT stable Lisha Rodríguez Dec 14, 2017 09:31 Oscar Quintana MD Dec 14, 2017 17:38
[2017-12-14] MEDS ORDERED: ROCURONIUM INJ 50 MG/5 ML VIAL IV PUSH ONE (10:00)
--- NOTE | 2017-12-14 10:28 | PD.OP ---
cc: Duncan Calderon MD Operative Report Date of Surgery: Dec 14, 2017 Preoperative Diagnosis: (1) Failure to wean from mechanical ventilation Postoperative Diagnosis: (1) Failure to wean from mechanical ventilation Procedure: Percutaneous tracheostomy Anesthesia: IV, per Dr. Meadows central supply technician supervisor Surgeon: Duncan Calderon Instructor Apparel Manufacture(s): Bronchoscopist Darwin Meadows Operation and Findings: EBL: 5 cc Procedure in detail: The patient remained in his intensive care unit bed. He was placed in supine position with the neck slightly hyperextended. The patient was administered sedative and paralytic medications per Dr. Meadows. The anterior neck was prepped and draped in usual sterile fashion. A 1 cm incision was made about 2 fingerbreadths superior to the sternal notch. The bronchoscope was inserted down the endotracheal tube which was withdrawn past the site of the anticipated entry into the trachea. The large-bore needle and catheter were inserted through the anterior trachea and there was air aspirated into the syringe. The wire fed easily and this was also visualized via the bronchoscope. The tract was then serially dilated with the punch dilator and the Blue Rhino dilator. The Shiley #8 tracheostomy tube with guide was placed over the wire and easily entered the trachea. This was also visualized bronchoscopically. The bronchoscope was inserted down the trach tube and the position again confirmed. The cuff was inflated and the apparatus switched to the trach tube. There was adequate tidal volumes. The trach was sutured in place with 4 separate 2-0 Prolene sutures. A dressing and trach collar was applied. The patient tolerated procedure well and remained in his intensive care unit bed. Duncan Calderon MD Dec 14, 2017 10:28
[2017-12-14] MEDS: HYDROCORTISONE SOD SUCCINATE 100 MG VIAL IV PUSH SCH ×2 (10:42→23:34)
[2017-12-14] MEDS: AMIODARONE INJ 450 MG in SODIUM CHLOR 0.9% (EXCEL) INJ 241 ML IV PRN ×2 (10:46→23:52)
--- NOTE | 2017-12-14 10:57 | PD.PROCEDR ---
Procedure Note Procedure Procedure: Fiberoptic Bronchoscopy for percutaneous tracheostomy Indications: To assist percutaneous tracheostomy placement, due to failure to wean Consent: Obtained from Anesthesia: 5 mg IV Versed, 100 mcg IV fentanyl, 50 mg IV rocuronium Description of the Procedure: The patient was sedated and mechanically ventilated. The patient was placed on 100% FIO2 and a volume control mode of ventilation. The fiberoptic bronchoscopy was inserted via 8.0 ETT. The trachea, right and left mainstem bronchi, and sub-segmental bronchi were evaluated. The endobronchial anatomy was normal. Anterior percutaneous Blue Rhino tracheostomy placement was visualized on video monitor using bronchoscopy. See separate tracheostomy note from Dr. Rios. The patient tolerated the procedure well with no hemodynamic instability or hypoxia. There were no immediate complications noted. At the conclusion of the procedure, the patient was placed back on their pre-procedure ventilatory settings. There was minimal EBL. A chest x-ray has been ordered. Darwin Meadows MD Dec 14, 2017 10:57
--- NOTE | 2017-12-14 11:07 | HHI.CCPN ---
Subjective Remarks/Hospital Course This is a 77-year-old male with a medical history significant for COPD, CHF, A. fib, diabetes, that presented to emergency department from [facility] for evaluation of worsening shortness of breath over the last 3 days. The patient was been given Solu-Medrol 125 mg and 2 albuterol treatments enroute to ED. Upon presentation to the ED the patient was on a nonrebreather. He was tachypneic and tachycardic. Patient's medical history significant for MRSA pneumonia previously admitted on 10/27/16 for approximately 12 days at [facility]. The patient is normally on 2.5 L/m nasal cannula O2 home dependency, and he lives with ( normally) a PCO2 in the 80s according to his . Patient was then discharged to [facility], and then transferred to [facility] for rehabilitation. He has been on an unknown antibiotic per the family and steroids for the last 3 days. Laboratory and imaging studies were performed with noted elevation in CO2 The patient was given empiric antibiotics in the ED and placed on BiPAP. Critical care medicine was consulted. Subjective: 11/15: Patient maintained on BiPAP throughout the night O2 saturations 97-98% on FiO2 of 0.40. Hemodynamically stable. Attempts made to wean patient to nasal cannula this a.m. unsuccessful, patient's O2 saturation in the 70s, patient placed back on BiPAP. Chest x-ray pending WBC count significantly diminished, leukocytosis resolved. Patient extremely anxious, Precedex infusion initiated. 11/16: Late entry note. Patient seen 10 AM. Overnight the patient converted to A. fib RVR, despite being on Cardizem 4 times a day and metoprolol twice a day- home medications, the patient received IV Cardizem followed by amiodarone infusion. Per report the patient became hypotensive, Cardizem discontinued. Amiodarone continued. Early this a.m. patient was resting comfortably A. fib rate controlled rate. The patient suddenly converted to A. fib RVR heart rate 150s-160s, acute hypoxemic respiratory failure, requiring intubation. The patient was intubated uneventfully and continues on amiodarone at 0.5 mg/hour, rate now controlled in conjunction with sedation. Cardiology consulted, his compensation intern is Dr. Reyes X-ray revealed lung consolidation improved, chest x- ray clear. Plan for CPAP trials in a.m.. 11/17: No acute events overnight. Patient had 1 short 8 beat run of V. tach last evening was self resolution, electrolytes within normal limits. The patient continues on amiodarone 0.5 mg/hr. CPAP trials initiated this a.m.. Tube feeds initiated at trickle feeds. Patient converted to sinus rhythm at 2 AM. 11/18 Patient remains sedated and intubated. Afebrile. 11/19 Patient was extubated yesterday however last night he was noted to choke on water provided by the family. Stat ABG demonstrated acute hypercapnic respiratory failure and was emergently intubated. Currently sedated and intubated. 11/20 Patient remains intubated on Fentanyl drip however he si awake and alert. Afebrile. 11/21 Patient is awake and alert placed on CPAP with PS:15, PEEP:5. Afebrile. 11/22 Patient remains intubated , did not tolerate CPAP trials yesterday as he became tachycardic and hypertensive. On no sedation awake and alert. 11/23 No events overnight, off sedation. 11/24: Resting comfortably on mechanical ventilation currently. Daily C Pap trials ongoing. 11/25: Sedated with Precedex, orally intubated on mechanical ventilation. Daily C Pap trials 11/26: Sedated with Precedex, orally intubated on mechanical ventilation. Got tachypneic with CPAP trial today hence placed back on PRVC. Spiked a fever, garcia cultures ordered. Went into A. fib with RVR subsequently for which being initiated on amiodarone bolus followed by drip and Lopressor 5 mg IV every 6 as needed for 11/27: This morning patient developed bradycardia followed by asystole for which she had 3 minutes CPR with ACLS protocol with return of spontaneous circulation. Post code chest x-ray revealed moderate to large right pneumothorax for which a right pigtail catheter was placed by me however despite airleak patient continue have moderate to large pneumothorax hence a second right sided 28 Marshallese chest tube was placed to -40 cm water pressure. Air leaks 1+ in both pigtail catheter and chest tube. Patient remains in a flutter currently. Dr. reyes evaluated patient as well following cardiac arrest. 11/28: Sedated, arousable, orally intubated on mechanical ventilation. Worsening renal function noted. MDR Pseudomonas in sputum. Right sided chest tube/ pigtail catheter with 1+ air leak in both. Subcutaneous emphysema noted over right side of face neck and right upper extremity. On 50% FiO2, PEEP +5. Poor urine output for which 500 cc and is bolus given earlier. Treated for hyperkalemia with Kayexalate PO, glucose insulin, calcium IV. 4/2: Remains sedated, arousable, orally intubated on mechanical ventilation. A. fib with RVR this morning for which she was loaded with amiodarone and initiated on amiodarone drip. Spiking fever 103.5. ID adjusting antibiotics. Stool for C. difficile ordered as he had some diarrhea today though received Kayexalate yesterday for hyperkalemia. Pigtail catheter on the right side appeared to be dislodged hence this was removed. 28 Marshallese chest tube in right pleural cavity repositioned. 11/30: Late entry note , patient seen at 12 noon. Creatinine continues to trend upward.Sedated but easily arousable. 12/01: Patient lightly sedated, following commands this a.m.. Creatinine noted increased, possible dialysis consideration for tomorrow. Patient to be diuresed today. CPAP trial initiated failed after 5 minutes, repeat this afternoon. 12/02: Patient placed on Lasix infusion throughout the night . No renal improvement,creatinine worsened today , plan for Vas-Cath placement and IHD today. This extensive discussion with patient and plans for tracheostomy and PEG tube placement secondary to failure to wean. 12/03: Late entry note, patient seen at 11 am. Patient scheduled for PEG placement today by Dr. Iglesias. Patient continues to fail CPAP trials. Plan for tracheostomy in the near future 12/04: Late entry note . Patient seen earlier this am. Overnight the patient became hypoglycemic, secondary to n.p.o. status, post PEG placement. D10 was initiated at 30 cc/hr. Tube feeds reinitiated Jevity 1.5, 24 hours post PEG tube placed, D10 discontinued. Patient remains on fentanyl at 100 mics/hour, lightly sedated. Patient denies pain answering by nodding head to yes and no questions. Tracheostomy planned for Wednesday12/06/[address] Calderon. 12/05: Remains intubated sedated with 50 mcg of fentanyl. On attempted CPAP trial patient remained dyspneic. Significant neuromuscular weakness persist. Chest x-ray shows small right apical pneumothorax. Tentatively plan for tracheostomy tomorrow. Dr. Calderon has already been consulted 12/06 Patient remains intubated for possible trach today. On Levophed 12 mics. Afebrile. 12/07 No events overnight. Trach was placed on hold yesterday as patient was on Levophed. He is down to 5 mics today. Afebrile. 12/08 Patient remains intubated on no sedation. CT brain this morning showed no acute process. Off Levophed. 12/09 Patient was placed back on Levophed 6 mics. Afebrile. Remains intubated on no sedation. 12/10 Patient remains intubated. On Neosyn 40 mics went into Afib with RVR HR 128 12/11 Patient remains intubated. Now on Neosyn 200 mics ( MAP 86mmHg). s/p HD yesterday with 1.5L removed. T:99.7 12/12 Patient remains sedated and intubated. Neosyn down 100 mics. For transfusion 2u PRBC and 1u PLT ( Hgb 6.7 and PLT 18 this morning) s/p HD with 3L removed yesterday. WBC is trending down. 12/13: More critically ill today, Bertin-Synephrine had to be increased to 150 mcg/ min, remains borderline hypotensive despite Bertin-Synephrine, currently in A. fib with RVR. Digoxin additional 0.25 mg IV push 1, start amiodarone infusion 12/14: Patient remains patient remains intubated currently on 50 mcg/min of Bertin- Synephrine. Remains on amiodarone infusion with heart rate better controlled 110-120. Plan for perc trach at bedside today Objective Vital Signs Date Time Temp Pulse Resp B/P (MAP) Pulse Ox O2 Delivery O2 Flow Rate FiO2 12/14/17 10:46 85 121/71 12/14/17 10:13 100 35 12/14/17 04:00 98.9 12 Intake and Output 12/14/17 12/14/17 12/15/17 08:00 16:00 00:00 Intake Total 650 ml 78 ml Output Total 35 ml Balance 615 ml 78 ml Result Diagram: 12/14/17 0400 12/14/17 0400 Imaging Last Impressions Chest X-Ray 12/11/17 0000 Signed Impressions: Service Date/Time: Monday, December 11, 2017 10:51 - CONCLUSION: Stable chest with moderate subcutaneous emphysema and no pneumothorax. Torin Dennison MD FACR Liver Ultrasound 12/09/17 0000 Signed Impressions: Service Date/Time: November 19:18 - CONCLUSION: 1. Limited suboptimal examination with only a small portion of the liver visualized. 2. The gallbladder and common bile duct could not be visualized. The pancreas is not evaluated. 3. Left pleural effusion. Liang Jimenez MD Head CT 12/08/17 0000 Signed Impressions: Service Date/Time: Friday, December 08, 2017 08:25 - CONCLUSION: Negative for acute process. Torin Dennison MD FACR Catheter Placement X-Ray 12/02/17 0000 Signed Impressions: Service Date/Time: November 10:47 - CONCLUSION: Uncomplicated right internal jugular Vas-Cath placement as above. incidental note is made of subcutaneous emphysema within the chest wall and neck Con Dennison MD Lower Extremity Ultrasound 11/29/17 0000 Signed Impressions: Service Date/Time: Wednesday, November 29, 2017 22:02 - CONCLUSION: Normal examination. Abdiel Mcintyre MD Renal Ultrasound 11/28/17 0000 Signed Impressions: Service Date/Time: Tuesday, November 28, 2017 20:30 - CONCLUSION: Nondiagnostic exam. Rashad Bose MD Objective Remarks GENERAL: Patient is 77 yo intubated SKIN: Warm and dry. HEAD: Normocephalic. Mild subcutaneous emphysema involving right side of face neck shoulder and arm. EYES: No scleral icterus. No injection or drainage. NECK: Supple, trachea midline. No JVD or lymphadenopathy. CARDIOVASCULAR: S1-S2 irregularly irregular, tachycardic in 110s hypotensive, currently on Bertin-Synephrine at 50 mcg/min RESPIRATORY: Orally intubated on mechanical ventilation, air entry decreased bilaterally, scattered rhonchi bilaterally. R chest tube with 1+ airleak. Subcutaneous emphysema or right chest wall, neck, right face and right upper extremity. GASTROINTESTINAL: Abdomen soft, non-tender, nondistended. MUSCULOSKELETAL: Bilateral peripheral edema +2 Neuro: Awake, orally intubated, on mechanical ventilation, follows simple commands intermittently A/P Problem List: (1) A-fib ICD Code: I48.91 - Unspecified atrial fibrillation (2) CHF (congestive heart failure) ICD Code: I50.9 - Heart failure, unspecified Status: Chronic (3) HTN (hypertension) ICD Code: I10 - Essential (primary) hypertension Status: Chronic (4) ADRIAN (obstructive sleep apnea) ICD Code: G47.33 - Obstructive sleep apnea (adult) (pediatric) Status: Chronic (5) MRSA pneumonia ICD Code: J15.212 - Pneumonia due to Methicillin resistant Staphylococcus aureus Status: Acute (6) Diabetes mellitus type 2, insulin dependent ICD Code: E11.9 - Type 2 diabetes mellitus without complications; Z79.4 - exterminator (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) use of insulin Status: Chronic (7) COPD (chronic obstructive pulmonary disease) ICD Code: J44.9 - Chronic obstructive pulmonary disease, unspecified Status: Acute (8) Respiratory distress ICD Code: R06.03 - Acute respiratory distress Status: Acute (9) Leukocytosis ICD Code: D72.829 - Elevated white blood cell count, unspecified Status: Acute (10) Lung consolidation ICD Code: J18.1 - Lobar pneumonia, unspecified organism Status: Acute (11) Anxiety ICD Code: F41.9 - Anxiety disorder, unspecified Status: Chronic (12) Failure to wean from mechanical ventilation ICD Code: Z99.11 - Dependence on respirator [ventilator] status Assessment and Plan Plan by systems: Neurologic: Encephalopathy Anxiety disorder Off sedation, monitor neuro status, Neuro checks per ICU protocol EEG: Mild- mod encephalopathy. Neuro is following- Dr. Anne. CT brain 12/08 no acute process Respiratory: Acute respiratory failure on mechanical ventilation- extubated and reintubated night of 11/18 after he was noted to choke on water provided by family. COPD exacerbation Pneumonia-MRSA, MDR Pseudomonas Right sided pneumothorax following CPR status post pigtail catheter/chest tube placement 11/27 Obstructive sleep apnea Home O2 dependency Continue with vent support keep sats >92% Bronchodilators, HC 50mg IV Q12 Pulmonology - Dr Price, Right sided chest tube in place. Continue 28 F right chest tube to -40 cm water pressure with underwater seal. Planning for tracheostomy today Cardiovascular: A. fib RVR Cardiac arrest - asystole, status post CPR 11/27 History of CHF CAD Currently on Bertin-Synephrine 50 mcg/min to keep MAP>65mmHg. IV digoxin 0.25 mg 1 12/13, and scheduled digoxin Continue amiodarone infusion for A. fib with RVR Lactic acid:2.2 on 12/07 Hydrocortisone 50mg IV [id number] weaning once hemodynamically more stable Atorvastatin 80 daily on hold for elevated LFT's Cardiology - Dr. Reyes Echo showed EF 65-70% Renal: DAVID Monitor renal function, electrolytes replacement as needed Nephrology Dr. Ragland. 12/02 Vas-Cath placed for initiation of IHD . HD planned for today after trach FEN/GI: Elevated LFT's GERD Monitor LFT's, US liver on 12/06: non diagnostic study US liver 12/09 limited study Hepatitis profile is negative On tube feeds On Nepro @40cc/hr. Pepcid for GI prophylaxis 12/03 PEG tube placement ID: Pneumonia MRSA, MDR Pseudomonas Leukocytosis ID following- Antibiotics per ID (on Micafungin, Zerbaxa, Flagyl) Stool for C. difficile negative on 11/29 and 12/06 Pertinent cultures 12/09 BC: NGTD 411 Urine cx: C. 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 Quintana. Now on hold for 24 hours for trach placement. 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 Unable to wean at this time. Follow up on cultures. Plan for tracheostomy Problem Qualifiers (1) COPD (chronic obstructive pulmonary disease): Qualified Codes: J44.9 - Chronic obstructive pulmonary disease, unspecified (2) Leukocytosis: Qualified Codes: D72.829 - Elevated white blood cell count, unspecified Darwin Meadows MD Dec 14, 2017 11:07
[2017-12-14] MEDS: MICAFUNGIN INJ 150 MG in SODIUM CHLORIDE 0.9% INJ 100 ML IV SCH (12:00)
[2017-12-14] MEDS: MANNITOL 12.5 GM/50 ML VIAL IV PRN (12:03)
[2017-12-14] MEDS: GENTAMICIN SULFATE 20 MG/2 ML VIAL OTHER PRN (12:04)
[2017-12-14] MEDS: EPOETIN ALFA 10,000 UNITS/ML VIAL IV PUSH PRN (12:04)
[2017-12-14] MEDS: ALBUMIN 25% INJ 100 ML IV PRN ×2 (12:04→13:22)
--- NOTE | 2017-12-14 12:34 | RADRPT ---
EXAM DATE/TIME: 12/14/2017 11:45 [place] COMPARISON: CHEST SINGLE AP, December 14, 2017, 4:58. INDICATIONS : S/P Trach. MEDICAL HISTORY : Chronic obstructive pulmonary disease. Cardiovascular disease. Hypertension.CHF Diabetes SURGICAL HISTORY : ENCOUNTER: Subsequent ACUITY: 1 month PAIN SCORE: Non-responsive. LOCATION: Bilateral chest FINDINGS: 2 portable supine AP views of the chest demonstrate a normal-sized cardiac silhouette. Right IJ line and left IJ line remain present with tips in the superior vena cava. Endotracheal tube has been remov ed and tracheostomy overlies the midline tracheal air shadow. Right chest tube remains present and th ere is a stable small right pneumothorax. Stable pleural-parenchymal opacity remains present at the l eft base. There is a stable subcutaneous emphysema bilaterally, right greater than left. CONCLUSION: 1. Tracheostomy appears in appropriate location. There is no left pneumothorax. Small right pneumotho rax is stable with chest tube in place. 2. Stable left basilar opacity. Abdiel Kwon MD on December 14, 2017 at 12:29 Board Certified Radiologist. This report was verified electronically.
--- NOTE | 2017-12-14 12:51 | HHI.IDPN ---
Note Infectious Disease Note Patient on the ventilator. Currently undergoing hemodialysis. Blood pressure decreasing during dialysis treatment.. He is on phenylephrine 150 mcg. Afebrile. White blood cell count is decreasing. Urine culture pending. Blood cultures no growth Repeat sputum culture has multiple resistant Pseudomonas aeruginosa. Wound culture from 12/08 has Nette. Previous urine culture on 11/28 had Nette. Patient was treated with Diflucan. Chest tube in place on the right due to pneumothorax. 77-year-old, white male who presents to the Emergency Department with shortness of breath. The patient has a history of COPD and CHF. He usually uses CPAP at the assisted living facility. He was noted to have been developing coughing and shortness of breath over the past couple of days, and his states that he was coughing a lot yesterday and bringing up mostly phlegm and that he was restless and could not sleep. Recently treated at [facility] for pneumonia due to methicillin-resistant Staphylococcus aureus. PAST MEDICAL HISTORY: COPD, CHF, atrial fibrillation, insulin-dependent diabetes mellitus, hypertension, hyperlipidemia, gastroesophageal reflux, gastroparesis, iron deficiency anemia, oxygen-dependent. PAST SURGICAL HISTORY: Right knee surgery, right carpal tunnel release, cardiac ablation treatment 2002. ALLERGIES: ASPIRIN, CODEINE. MEDICATIONS: Current Medications Medications (Trade) Dose Ordered Sig/Yani Route PRN Reason Start Time Stop Time Status Last Admin Dose Admin Sodium Chloride (NS Flush) 2 ml UNSCH PRN IV FLUSH FLUSH AFTER USING IV ACCESS 11/14/17 15:45 11/17/17 14:05 Sodium Chloride (NS Flush) 2 ml BID IV FLUSH 11/14/17 21:00 12/14/17 07:28 Ondansetron HCl (Zofran Inj) 4 mg Q6H PRN IV PUSH NAUSEA OR VOMITING 11/14/17 15:45 11/18/17 16:03 Miscellaneous Information 1 Q361D XX 11/14/17 15:45 11/14/17 15:45 Chlorhexidine Gluconate (Chlorhexidine 2% Cloth) Taper DAILY@04 TOP 11/15/17 04:00 11/11/18 03:59 12/07/17 04:00 Chlorhexidine Gluconate (Chlorhexidine 2% Cloth) 3 pack UNSCH PRN TOP HYGIENIC CARE 11/14/17 15:45 Senna/Docusate Sodium (Ricarda-Colace) 1 tab BID PO 11/14/17 21:00 12/12/17 21:43 Magnesium Hydroxide (Milk Of Magnesia Liq) 30 ml Q12H PRN PO Mild constipation 11/14/17 15:45 Sennosides (Senokot) 17.2 mg Q12H PRN PO Moderate constipation 11/14/17 15:45 Bisacodyl (Dulcolax Supp) 10 mg DAILY PRN RECTAL SEVERE CONSITIPATION 11/14/17 15:45 Lactulose (Lactulose Liq) 30 ml DAILY PRN PO SEVERE CONSITIPATION 11/14/17 15:45 Apixaban (Eliquis) 5 mg BID PO 11/14/17 21:00 Future Hold 11/27/17 20:17 Atorvastatin Calcium (Lipitor) 80 mg HS PO 11/14/17 21:00 Future Hold 12/05/17 19:49 Digoxin (Lanoxin) 0.125 mg DAILY PO 11/15/17 09:00 Future Hold 11/17/17 08:24 Diltiazem HCl (Cardizem) 60 mg QID PO 11/14/17 18:00 Future Hold 12/06/17 08:44 Patient Own Medication PT OWN MED: [facility]... HS INH 11/14/17 21:00 Future Hold Hydralazine HCl (Apresoline Inj) 20 mg Q4H PRN IV PUSH SYS BP GREATER THAN 160 MMHG 11/17/17 12:00 11/22/17 07:38 Budesonide/ Formoterol Fumarate (Symbicort 160-4.5 Mcg Inh) 2 puff Q12HR INH 11/18/17 21:00 12/14/17 07:27 Chlorhexidine Gluconate (Peridex 0.12% Liq) 15 ml BID@08,20 MT 11/19/17 08:00 12/14/17 07:27 Albuterol/ Ipratropium (Duoneb Neb) 1 ampule Q2HR NEB PRN INH WHEEZING 11/18/17 22:30 12/13/17 08:12 Famotidine (Pepcid) 10 mg BID PO 11/22/17 21:00 12/14/17 07:27 Insulin Aspart (NovoLOG SUPPLEMENTAL SCALE) 1 Q4HR SQ 11/26/17 16:00 12/13/17 20:00 Dextrose (D50w (Vial) Inj) 25 ml UNSCH PRN IV HYPOGLYCEMIA-SEE COMMENTS 11/26/17 15:30 12/04/17 01:18 Glucagon (Glucagon Inj) 1 mg UNSCH PRN IM/SQ HYPOGLYCEMIA-SEE COMMENTS 11/26/17 15:30 Fentanyl Citrate 250 ml @ 5 mls/hr TITRATE PRN IV SEDATION 11/27/17 13:45 12/03/17 08:58 Metoprolol Tartrate (Lopressor Inj) 5 mg Q6H PRN IV PUSH heart rate greater than 135/mi 11/29/17 09:15 Sodium Chloride 1,000 ml @ 0 mls/hr Q0M PRN OTHER For Prime & Rinse Back 12/02/17 09:30 12/08/17 16:50 Heparin Sodium (Porcine) (Heparin Inj) 8,000 units UNSCH PRN IV FLUSH WITH DIALYSIS 12/02/17 09:30 Sodium Chloride 1,000 ml @ 200 mls/hr Q5H PRN IV WITH DIALYSIS 12/02/17 09:30 Sodium Chloride 1,000 ml @ 0 mls/hr Q0M PRN OTHER WITH DIALYSIS 12/02/17 09:30 Mannitol (Mannitol Inj) 12.5 gm UNSCH PRN IV WITH DIALYSIS 12/02/17 09:30 12/14/17 12:03 Albumin Human 100 ml @ 60 mls/hr UNSCH PRN IV WITH DIALYSIS 12/02/17 09:30 12/14/17 12:04 Sodium Chloride (NS Flush) 5 ml UNSCH PRN IV FLUSH WITH DIALYSIS 12/02/17 09:30 12/08/17 16:51 Heparin Sodium (Porcine) (Heparin Inj) UNSCH PRN .XX WITH DIALYSIS 12/02/17 09:30 12/08/17 16:50 Gentamicin Sulfate (Gentamicin Inj) 20 mg UNSCH PRN OTHER WITH DIALYSIS 12/02/17 09:30 12/14/17 12:04 Ondansetron HCl (Zofran Inj) 4 mg UNSCH PRN IV PUSH WITH DIALYSIS 12/02/17 09:30 Acetaminophen (Tylenol) 650 mg UNSCH PRN PO for headach, pain, temp > 101F 12/02/17 09:30 Diphenhydramine HCl (Benadryl) 25 mg UNSCH PRN PO for hives/itching/anaphylaxis 12/02/17 09:30 Nitroglycerin (Nitrostat Sl) 0.4 mg UNSCH PRN SL CHEST PAIN 12/02/17 09:30 Clonidine (Catapres) 0.1 mg UNSCH PRN PO for BP > 180/100 X 2 readings 12/02/17 09:30 Epoetin Kvng (Epogen Inj) 4,000 units UNSCH PRN IV PUSH WITH DIALYSIS 12/02/17 09:30 12/14/17 12:04 Gelatin (Gelfoam 12 Mm/7 Mm Top) 1 foam UNSCH PRN TOP SEE LABEL COMMENTS 12/02/17 09:30 Sodium Chloride (NS Flush) UNSCH PRN IV FLUSH SEE PROTOCOL 12/02/17 11:15 Heparin Sodium (Porcine) (Heparin Inj) UNSCH PRN IV FLUSH SEE PROTOCOL 12/02/17 11:15 Micafungin Sodium 150 mg/Sodium Chloride 100 ml @ 100 mls/hr Q24H IV 12/06/17 12:00 12/13/17 12:09 Hydrocortisone Sodium Succinate (SoluCORTEF INJ) 50 mg Q12H IV PUSH 12/07/17 23:00 12/14/17 10:42 Insulin Detemir (Levemir Inj) 5 units Q12HR SQ 12/07/17 12:00 12/14/17 09:00 Lanthanum Carbonate (Fosrenol Chew) 500 mg TID CHEW 12/07/17 18:00 12/14/17 07:27 Calcitriol (Rocaltrol) 0.5 mcg DAILY PO 12/08/17 09:00 12/14/17 07:27 Ceftolozane/ Tazobactam 150 mg/ Sodium Chloride 100 ml @ 100 mls/hr Q8H IV 12/08/17 23:00 12/14/17 05:41 Levofloxacin/ Dextrose 50 ml @ 50 mls/hr Q24H IV 12/08/17 16:00 12/13/17 16:31 Norepinephrine Bitartrate 250 ml @ 7.5 mls/hr TITRATE PRN IV Blood pressure management 12/08/17 21:00 12/10/17 03:00 Terbutaline Sulfate (Brethine Inj) 1 mg UNSCH PRN SQ FOR EXTRAVASATION PROTOCOL 12/10/17 10:15 Metronidazole (Flagyl) 500 mg Q6HR PO 12/10/17 13:30 12/14/17 10:42 Phenylephrine HCl 160 mg/Dextrose 500 ml @ 7.5 mls/hr TITRATE PRN IV Blood pressure management 12/10/17 19:30 12/12/17 04:05 Terbutaline Sulfate (Brethine Inj) 1 mg UNSCH PRN SQ For Extravasation 12/10/17 19:30 Argatroban 250 mg/ Sodium Chloride 252.5 ml @ 3.03 mls/hr TITRATE PRN IV aPTT < 50 12/12/17 18:00 12/12/17 21:54 Amiodarone HCl 450 mg/Sodium Chloride 250 ml @ 33.33 mls/ hr Q7H31M PRN IV Per Protocol 12/13/17 12:30 12/14/17 10:46 OBJECTIVE: Vital Signs Date Time Temp Pulse Resp B/P (MAP) Pulse Ox O2 Delivery O2 Flow Rate FiO2 12/14/17 12:38 100 35 12/14/17 12:30 93 20 103/59 (74) 99 12/14/17 12:30 93 12/14/17 12:15 100 18 81/51 (61) 98 12/14/17 12:00 35 12/14/17 12:00 98 12/14/17 12:00 98.7 98 20 90/56 (67) 98 12/14/17 11:30 91 12/14/17 11:30 91 20 127/68 (87) 99 12/14/17 11:15 88 20 121/65 (83) 99 12/14/17 11:00 89 12/14/17 11:00 89 20 117/60 (79) 99 12/14/17 10:46 85 121/71 12/14/17 10:45 95 20 121/71 (88) 99 12/14/17 10:30 95 12/14/17 10:30 95 20 112/58 (76) 99 12/14/17 10:13 100 35 12/14/17 10:00 100 20 111/66 (81) 100 12/14/17 10:00 100 100 12/14/17 10:00 96 12/14/17 10:00 35 12/14/17 09:45 99 15 107/63 (78) 100 4/17/18 09:30 98 19 121/67 (85) 100 4/17/18 09:30 98 4/17/18 09:15 95 17 110/59 (76) 100 4/17/18 09:00 91 19 100/57 (71) 99 4/17/18 09:00 91 4/17/18 08:57 97 20 122/61 (81) 99 417/18 08:15 98 20 91/57 (68) 96 12/14/18 08:00 98.0 101 20 86/58 (67) 97 17/18 08:00 35 17/18 08:00 101 12/14/18 07:45 110 20 79/52 (61) 95 12/14/18 07:30 103 12/14/18 07:30 103 20 110/65 (80) 95 12/14/18 07:15 106 18 114/64 (81) 95 12/14/18 07:05 96 35 12/14/18 07:00 106 20 109/68 (82) 96 12/14/18 07:00 106 12/14/18 06:00 102 12/14/18 04:06 98 35 12/14/18 04:00 98.9 99 12 98/56 (70) 98 12/14/18 04:00 96 12/14/18 04:00 35 12/14/18 03:45 105 8 91/55 (67) 98 17/18 03:30 103 16 99/55 (70) 98 17/18 03:15 105 15 129/71 (90) 99 17/18 03:00 96 3 100/60 (73) 98 17/18 02:45 101 20 103/56 (72) 98 17/18 02:30 96 20 101/60 (74) 98 17/18 02:15 101 20 97/56 (70) 98 17/18 02:00 96 20 103/59 (74) 98 17/18 02:00 96 17/18 01:45 102 20 103/69 (80) 98 /17/18 01:30 101 20 106/61 (76) 98 17/18 01:15 99 20 97/59 (72) 97 17/18 01:00 97 20 112/56 (74) 98 4/17/18 00:45 103 21 120/71 (87) 98 4/17/18 00:30 101 20 112/58 (76) 98 4/17/18 00:19 98 35 4/17/18 00:00 35 4/17/18 00:00 101 4/17/18 00:00 98.9 98 23 121/57 (78) 97 4/16/18 23:45 99 20 103/54 (70) 98 4/16/18 23:30 99 20 97/56 (70) 98 4/16/18 23:15 101 20 97/60 (72) 98 4/16/18 23:02 107 26 107/61 (76) 98 4/16/18 23:00 94 19 77/43 (54) 97 4/16/18 22:46 108 22 93/56 (68) 98 4/16/18 22:45 103 26 98 4/16/18 22:30 99 23 108/56 (73) 98 4/16/18 22:15 103 21 111/58 (75) 98 4/16/18 22:00 91 4/16/18 22:00 91 22 106/59 (75) 97 4/16/18 21:45 96 20 98/58 (71) 98 4/16/18 21:31 98 35 4/16/18 21:30 99 17 91/52 (65) 97 4/16/18 21:29 109 93/56 4/16/18 21:15 103 20 93/56 (68) 98 4/16/18 21:00 105 27 80/51 (61) 97 4/16/18 20:45 97 20 88/52 (64) 98 4/16/18 20:45 97 88/52 4/16/18 20:38 98 20 106/56 (73) 98 4/16/18 20:30 97 20 73/45 (54) 97 4/16/18 20:15 110 20 87/58 (68) 98 4/16/18 20:00 35 4/16/18 20:00 98.7 100 20 85/52 (63) 97 4/16/18 20:00 100 4/16/18 18:55 98 4/16/18 18:00 112 4/16/18 17:00 107 20 99/50 (66) 97 4/16/18 17:00 107 12/13/17 16:51 98 35 12/13/17 16:30 99 20 113/55 (74) 98 12/13/17 16:30 99 12/13/17 16:00 35 12/13/17 16:00 99.0 106 22 104/52 (69) 98 12/13/17 16:00 106 12/13/17 15:30 97 12/13/17 15:00 108 20 121/58 (79) 98 12/13/17 15:00 108 12/13/17 14:30 109 21 108/55 (72) 12/13/17 14:00 108 12/13/17 14:00 108 26 91/49 (63) 99 12/13/17 13:30 106 12/13/17 13:30 106 25 97/52 (67) 100 12/13/17 13:00 139 29 101/51 (68) 100 12/13/17 13:00 139 12/13/17 12:57 100 35 Laboratory Tests Test 12/12/17 20:15 12/13/17 03:00 12/14/17 04:00 Hemoglobin 9.9 GM/DL 10.2 GM/DL 10.6 GM/DL Hematocrit 29.9 % 31.1 % 32.1 % Platelet Count 59 TH/MM3 56 TH/MM3 54 TH/MM3 Haptoglobin 253 MG/DL White Blood Count 20.7 TH/MM3 16.1 TH/MM3 Red Blood Count 3.72 MIL/MM3 3.78 MIL/MM3 Mean Corpuscular Volume 83.4 FL 85.0 FL Mean Corpuscular Hemoglobin 27.3 PG 28.0 PG Mean Corpuscular Hemoglobin Concent 32.8 % 33.0 % Red Cell Distribution Width 17.0 % 17.2 % Mean Platelet Volume 8.6 FL 9.5 FL Neutrophils (%) (Auto) 80.9 % 85.6 % Lymphocytes (%) (Auto) 11.9 % 9.3 % Monocytes (%) (Auto) 7.0 % 5.0 % Eosinophils (%) (Auto) 0.0 % 0.0 % Basophils (%) (Auto) 0.2 % 0.1 % Neutrophils # (Auto) 16.7 TH/MM3 13.8 TH/MM3 Lymphocytes # (Auto) 2.5 TH/MM3 1.5 TH/MM3 Monocytes # (Auto) 1.4 TH/MM3 0.8 TH/MM3 Eosinophils # (Auto) 0.0 TH/MM3 0.0 TH/MM3 Basophils # (Auto) 0.0 TH/MM3 0.0 TH/MM3 CBC Comment AUTO DIFF AUTO DIFF Differential Comment AUTO DIFF CONFIRMED FINAL DIFF MANUAL Platelet Estimate LOW LOW Platelet Morphology Comment NORMAL NORMAL Ovalocytes 1+ 1+ Differential Total Cells Counted 100 Neutrophils % (Manual) 86 % Band Neutrophils % 4 % Lymphocytes % 7 % Monocytes % 3 % Neutrophils # (Manual) 14.5 TH/MM3 Nucleated Red Blood Cells 4 /100 WBC Laboratory Tests Test 12/12/17 20:15 12/13/17 03:00 12/13/17 13:50 12/14/17 04:00 Iron Level 27 MCG/DL Total Iron Binding Capacity 164 MCG/DL Percent Iron Saturation 16.5 % Ferritin 115 NG/ML Lactate Dehydrogenase 399 U/L Vitamin B12 Level 713 PG/ML Blood Urea Nitrogen 77 MG/DL 62 MG/DL Creatinine 2.87 MG/DL 2.43 MG/DL Random Glucose 159 MG/DL 123 MG/DL Total Protein 5.3 GM/DL 5.6 GM/DL Albumin 3.0 GM/DL 3.2 GM/DL Calcium Level 7.2 MG/DL 7.9 MG/DL Alkaline Phosphatase 335 U/L 380 U/L Aspartate Amino Transf (AST/SGOT) 44 U/L 35 U/L Alanine Aminotransferase (ALT/SGPT) 50 U/L 40 U/L Total Bilirubin 0.9 MG/DL 1.0 MG/DL Sodium Level 139 MEQ/L 143 MEQ/L Potassium Level 3.0 MEQ/L 3.3 MEQ/L 3.6 MEQ/L Chloride Level 100 MEQ/L 105 MEQ/L Carbon Dioxide Level 26.3 MEQ/L 26.8 MEQ/L Anion Gap 13 MEQ/L 11 MEQ/L Estimat Glomerular Filtration Rate 21 ML/MIN 26 ML/MIN Protein Corrected Calcium 8.2 MG/DL Magnesium Level 2.1 MG/DL Microbiology Date/Time Source Procedure Growth Status 12/14/17 05:00 Urine Catheterized Urine Urine Culture Pending Received Imaging: Chest X-Ray 12/14/17 0600 Signed Impressions: Service Date/Time: Thursday, December 14, 2017 04:58 - CONCLUSION: 1. Right chest tube remains in place. A small basilar pneumothorax is present. 2. Improving left base consolidation. Abdiel Vidales MD Chest X-Ray 12/14/17 0000 Signed Impressions: Service Date/Time: Thursday, December 14, 2017 11:45 - CONCLUSION: 1. Tracheostomy appears in appropriate location. There is no left pneumothorax. Small right pneumothorax is stable with chest tube in place. 2. Stable left basilar opacity. Abdiel Kwon MD Chest X-Ray 12/13/17 0000 Signed Impressions: Service Date/Time: Wednesday, December 13, 2017 04:01 - CONCLUSION: 1. Mild left base consolidation developing. 2. Right chest tube remains in place. No pneumothorax but chest wall emphysema persists. Abdiel Vidales MD Chest X-Ray 12/13/17 0000 Signed Impressions: Service Date/Time: Wednesday, December 13, 2017 04:01 - CONCLUSION: 1. Mild left base consolidation developing. 2. Right chest tube remains in place. No pneumothorax but chest wall emphysema persists. Abdiel Vidales MD Chest X-Ray 12/12/17 0000 Signed Impressions: Service Date/Time: Tuesday, December 12, 2017 08:50 - CONCLUSION: Stable with extensive right subcutaneous emphysema. Torin Dennison MD FACR Chest X-Ray 12/11/17 0000 Signed Impressions: Service Date/Time: Monday, December 11, 2017 10:51 - CONCLUSION: Stable chest with moderate subcutaneous emphysema and no pneumothorax. Torin Dennison MD FACR Chest X-Ray 12/09/17 0600 Signed Impressions: Service Date/Time: November 03:05 - CONCLUSION: Tiny right apical pneumothorax. Nikunj Oneil MD Head CT 12/08/17 0000 Signed Impressions: Service Date/Time: Friday, December 08, 2017 08:25 - CONCLUSION: Negative for acute process. Torin Dennison MD FACR Chest X-Ray 12/08/17 0000 Signed Impressions: Service Date/Time: Friday, December 08, 2017 10:25 - CONCLUSION: Right chest tube with increasing subcutaneous emphysema and trace pneumothorax. Torin Dennison MD FACR Chest X-Ray 12/07/17 0000 Signed Impressions: Service Date/Time: Thursday, December 07, 2017 21:21 - CONCLUSION: 1. Right- sided chest tube in place with no visualized pneumothorax. There is been interval decrease in subcutaneous emphysema over the right lateral chest wall. 2. Stable blunting of left costophrenic angle with hazy opacity remaining at the left lung base. Liang Jimenez MD Chest X-Ray 12/07/17 0000 Signed Impressions: Service Date/Time: Thursday, December 07, 2017 08:57 - CONCLUSION: 1. Right chest tube remains present and there is a potential small right apical pneumothorax present. Right chest wall subcutaneous emphysema is stable. 2. Stable left basilar opacity with blunting of the left costophrenic sulcus. Abdiel Kwon MD PHYSICAL EXAMINATION: GENERAL: Sedated. HEENT: No icterus. EOMI. moist mucosa. NECK: No swelling or adenopathy. LUNGS: Decreased breath sounds. Slight basilar rhonchi. HEART: Irregular S1 and S2. No murmurs, rubs or gallops. ABDOMEN: Bowel sounds present, obese, soft. Non tender. EXTREMITIES: 3+ diffuse edema. Cyanosis at the tips of the toes. The feet are warm. SKIN: No diffuse rash. NEUROLOGIC: Nonfocal. PSYCHIATRIC: Calm and cooperative. IMPRESSION: 1. Sepsis. 2. Pneumonia - Pseudomonas MDR. Latest sputum culture - Pseudomonas. Could be colonization. However with his seriously ill clinical condition he may have ongoing pneumonia. 3. Acute respiratory failure. Vent dependent. Extubated previously and appears to have aspirated. 4. Leukocytosis. White blood cell count improving. 5. Nette glabrata UTI. Persistent despite management with Diflucan. Last urine culture on 12/08 had Nette glabrata. 6. Right-sided pneumothorax. Subcutaneous emphysema. 7. History of chronic obstructive pulmonary disease and recent chronic obstructive pulmonary disease exacerbation. 8. Renal failure. Receiving hemodialysis. 9. Elevated liver function tests. LFT is decreasing. RECOMMENDATIONS: 1. Continue Micafungin. Patient has been on broad-spectrum antibiotics and has potential for systemic fungal infection. 2. Follow repeat the urine culture. 3. Continue Zerbaxa for pneumonia. 4. Continue Levaquin. 5. Continue metronidazole. 6. Monitor white blood cell count. 7. Monitor clinical status. Tom Long MD Dec 14, 2017 12:51
--- NOTE | 2017-12-14 13:03 | HHI.NPPN ---
Subjective Renal Failure: Acute History of Present Illness This is a 77-year-old male with past medical history of ischemic heart disease, atrial fibrillation, congestive heart failure, possibly diastolic dysfunction, diabetes mellitus, chronic obstructive pulmonary disease, was admitted on 11/14 with respiratory distress. Nephrology was called to see the patient because of elevated BUN and creatinine. The patient has creatinine of 1.1 on admission, which increased after 2 or 3 to 1.3-1.5 and for the last 2 days, it has been going up and now it is 2.8. The patient was initially diagnosed with pneumonia and was started on antibiotics and then later on, patient developed respiratory failure and was intubated. He was also found to have asystole on 11/27 for 3 minutes and CPR was done with ACLS protocol, and it was shown that he has large right-sided pneumothorax. The blood pressure has been stable and there are no significant hypotensive episodes documented. Most of the history was taken from he patient' s chart. Additional Remarks Patient seen earlier in day. Plans for tracheostomy today. Alert on ventilator. (Adeola Velez) Review of Systems General General Remarks Unable to do ROS as patient is intubated (Adeola Velez) Objective Data Data 12/14/17 12/15/17 19:00 07:00 Intake Total 78 ml Balance 78 ml IV Total 78 ml Vital Signs Date Time Temp Pulse Resp B/P (MAP) Pulse Ox O2 Delivery O2 Flow Rate FiO2 12/14/17 12:38 100 35 12/14/17 12:30 93 20 103/59 (74) 99 12/14/17 12:30 93 12/14/17 12:15 100 18 81/51 (61) 98 12/14/17 12:00 35 12/14/17 12:00 98 12/14/17 12:00 98.7 98 20 90/56 (67) 98 12/14/17 11:30 91 12/14/17 11:30 91 20 127/68 (87) 99 12/14/17 11:15 88 20 121/65 (83) 99 12/14/17 11:00 89 12/14/17 11:00 89 20 117/60 (79) 99 12/14/17 10:46 85 121/71 12/14/17 10:45 95 20 121/71 (88) 99 4/17/18 10:30 95 4/17/18 10:30 95 20 112/58 (76) 99 4/17/18 10:13 100 35 4/17/18 10:00 100 20 111/66 (81) 100 4/17/18 10:00 100 100 4/17/18 10:00 96 4/17/18 10:00 35 4/17/18 09:45 99 15 107/63 (78) 100 4/17/18 09:30 98 19 121/67 (85) 100 4/17/18 09:30 98 4/17/18 09:15 95 17 110/59 (76) 100 4/17/18 09:00 91 19 100/57 (71) 99 417/18 09:00 91 4/17/18 08:57 97 20 122/61 (81) 99 4/17/18 08:15 98 20 91/57 (68) 96 17/18 08:00 98.0 101 20 86/58 (67) 97 17/18 08:00 35 4/17/18 08:00 101 17/18 07:45 110 20 79/52 (61) 95 4/17/18 07:30 103 4/17/18 07:30 103 20 110/65 (80) 95 17/18 07:15 106 18 114/64 (81) 95 /17/18 07:05 96 35 /17/18 07:00 106 20 109/68 (82) 96 17/18 07:00 106 17/18 06:00 102 17/18 04:06 98 35 4/17/18 04:00 98.9 99 12 98/56 (70) 98 4/17/18 04:00 96 4/17/18 04:00 35 4/17/18 03:45 105 8 91/55 (67) 98 4/17/18 03:30 103 16 99/55 (70) 98 4/17/18 03:15 105 15 129/71 (90) 99 4/17/18 03:00 96 3 100/60 (73) 98 4/17/18 02:45 101 20 103/56 (72) 98 4/17/18 02:30 96 20 101/60 (74) 98 4/17/18 02:15 101 20 97/56 (70) 98 17/18 02:00 96 20 103/59 (74) 98 12/14/18 02:00 96 //18 01:45 102 20 103/69 (80) 98 /17/18 01:30 101 20 106/61 (76) 98 17/18 01:15 99 20 97/59 (72) 97 12/14/18 01:00 97 20 112/56 (74) 98 17/18 00:45 103 21 120/71 (87) 98 17/18 00:30 101 20 112/58 (76) 98 12/14/18 00:19 98 35 12/14/18 00:00 35 12/14/18 00:00 101 18 00:00 98.9 98 23 121/57 (78) 97 12/13/18 23:45 99 20 103/54 (70) 98 16/18 23:30 99 20 97/56 (70) 98 16/18 23:15 101 20 97/60 (72) 98 /16/18 23:02 107 26 107/61 (76) 98 /16/18 23:00 94 19 77/43 (54) 97 12/13/18 22:46 108 22 93/56 (68) 98 /16/18 22:45 103 26 98 /16/18 22:30 99 23 108/56 (73) 98 /16/18 22:15 103 21 111/58 (75) 98 16/18 22:00 91 16/18 22:00 91 22 106/59 (75) 97 /16/18 21:45 96 20 98/58 (71) 98 /16/18 21:31 98 35 /16/18 21:30 99 17 91/52 (65) 97 /16/18 21:29 109 93/56 /16/18 21:15 103 20 93/56 (68) 98 /16/18 21:00 105 27 80/51 (61) 97 /16/18 20:45 97 20 88/52 (64) 98 /16/18 20:45 97 88/52 4/16/18 20:38 98 20 106/56 (73) 98 12/13/17 20:30 97 20 73/45 (54) 97 12/13/17 20:15 110 20 87/58 (68) 98 12/13/17 20:00 35 12/13/17 20:00 98.7 100 20 85/52 (63) 97 12/13/17 20:00 100 12/13/17 18:55 98 12/13/17 18:00 112 12/13/17 17:00 107 20 99/50 (66) 97 12/13/17 17:00 107 12/13/17 16:51 98 35 12/13/17 16:30 99 20 113/55 (74) 98 12/13/17 16:30 99 12/13/17 16:00 35 12/13/17 16:00 99.0 106 22 104/52 (69) 98 12/13/17 16:00 106 12/13/17 15:30 97 12/13/17 15:00 108 20 121/58 (79) 98 12/13/17 15:00 108 12/13/17 14:30 109 21 108/55 (72) 12/13/17 14:00 108 12/13/17 14:00 108 26 91/49 (63) 99 12/13/17 13:30 106 12/13/17 13:30 106 25 97/52 (67) 100 12/13/17 13:00 139 29 101/51 (68) 100 12/13/17 13:00 139 (Adeola Velez) -: 12/14/17 0400 12/14/17 0400 Microbiology 12/14/17 Urine Culture, Received Pending Tubes & Lines: Vas-Cath, Haynes (Adeola Velez) Physical Exam General Appearance: No Acute Distress, Obese (Adeola Velez) Eyes Eye Exam: Pupils Equal (Adeola Velez) Pulmonary Resp Exam: Breath Sounds Equal Resp Remarks SQ emphysema present Intubated CT right chest wall (Adeola Velez) Cardiology CV Exam: Regular (Adeola Velez) Gastrointestinal/Abdomen GI Exam: Soft, Non-Tender, Distended (Adeola Velez) Genitourinary Exam: Flank Non-Tender (Adeola Velez) Integumentary Skin Exam: Clear, Warm (Adeola Velez) Extremeties Extremities Exam: Moderate Edema (Adeola Velez) Neurologic Neuro Exam: Awake (Adeola Velez) Assessment/Plan Assessment Summary: DAVID/Acute Renal Failure Problem List: (1) DAVID (acute kidney injury) ICD Codes: N17.9 - Acute kidney failure, unspecified Plan: Acute kidney injury most likely related to prerenal vs acute tubular necrosis, either from the infection or related to his cardiac status and cardiac arrest. Renal US unable to visualize kidneys or bladder? Oliguric Creatinine at 2.43 and potassium normal Continues to have edema but weight is improving. Plan Renal dose antibiotics Continue for follow UOP and BMP Avoid nephrotoxins as possible. Hemodialysis yesterday with UF of 2.5 liters. Plans for hemodialysis tomorrow. (2) Respiratory failure ICD Codes: J96.90 - Respiratory failure, unspecified, unspecified whether with hypoxia or hypercapnia Plan: Intubated weaning per pecan grower. (3) Thrombocytopenia ICD Codes: D69.6 - Thrombocytopenia, unspecified Plan: platelet transfusion. Hematology has been consulted. Order LDH. Etiology? (4) Anemia ICD Codes: D64.9 - Anemia, unspecified Plan: has received blood transfusion. (Adeola Velez) Problem List: (1) DAVID (acute kidney injury) ICD Codes: N17.9 - Acute kidney failure, unspecified Plan: Acute kidney injury most likely related to prerenal vs acute tubular necrosis, either from the infection or related to his cardiac status and cardiac arrest. Renal US unable to visualize kidneys or bladder? Oliguric Creatinine at 2.43 and potassium normal Continues to have edema but weight is improving. Plan Renal dose antibiotics Continue for follow UOP and BMP Avoid nephrotoxins as possible. Hemodialysis yesterday with UF of 2.5 liters. Plans for hemodialysis tomorrow. Patient seen and examined, agree with above. Daily HD for now to remove more fluid. BP is on lower side. (2) Respiratory failure ICD Codes: J96.90 - Respiratory failure, unspecified, unspecified whether with hypoxia or hypercapnia Plan: Intubated weaning per pecan grower. (3) Thrombocytopenia ICD Codes: D69.6 - Thrombocytopenia, unspecified Plan: platelet transfusion. Hematology has been consulted. Order LDH. Etiology? (4) Anemia ICD Codes: D64.9 - Anemia, unspecified Plan: has received blood transfusion. (America Vela MD) Adeola Velez Dec 14, 2017 13:02 America Vela MD Dec 16, 2017 09:49
[2017-12-14] MEDS: LEVOFLOXACIN 250 MG PREMIX INJ 50 ML IV SCH (17:22)
[2017-12-14] MEDS: PHENYLEPHRINE INJ 160 MG in DEXTROSE 5% IN WATE 500 ML INJ 484 ML IV PRN ×2 (20:29)
[2017-12-15] VITALS (32 sets, daily range): BP systolic 90–119; BP diastolic 51–58; PULSE 84–106; RESP 20–40; TEMP 97.9–100.9; O2SAT 93–100
[2017-12-15] MEDS: INSULIN ASPART SUPPLEMENTAL SCALE SQ SCH ×6 (03:40→23:43)
[2017-12-15] MEDS: CHLORHEXIDINE GLUCONATE 2 % 1 PACK (2 CLOTHS) TOP SCH (03:40)
[2017-12-15 05:36] LABS: AUTOMATED NEUTROPHIL # 10.5 TH/MM3 (1.8-7.7); BASOPHIL % 0.1 % (0.0-2.0); EOSINOPHIL % 0.1 % (0.0-4.0); HEMATOCRIT 30.2 % (39.0-51.0); HEMOGLOBIN 9.8 GM/DL (13.0-17.0); MEAN CELL VOLUME 86.4 FL (80.0-100.0); MEAN CORPUSCULAR HEMOGLOBIN 28.1 PG (27.0-34.0); MEAN CORPUSCULAR HGB CONC 32.6 % (32.0-36.0); MEAN PLATELET VOLUME 9.4 FL (7.0-11.0); MONO % 5.7 % (0.0-8.0); MONOCYTE # 0.8 TH/MM3 (0-0.9); NEUT % 79.1 % (16.0-70.0); PLATELET COUNT 49 TH/MM3 (150-450); RED BLOOD COUNT 3.49 MIL/MM3 (4.50-5.90); RED CELL DISTRIBUTION WIDTH 17.6 % (11.6-17.2); WHITE BLOOD COUNT 13.3 TH/MM3 (4.0-11.0)
[2017-12-15 06:03] LABS: ALBUMIN 3.3 GM/DL (3.4-5.0); ALKALINE PHOSPHATASE 449 U/L (45-117); ALT (GPT) 34 U/L (12-78); AST (GOT) 42 U/L (15-37); BICARBONATE 29.3 MEQ/L (21.0-32.0); BLOOD UREA NITROGEN 50 MG/DL (7-18); CALCIUM 7.8 MG/DL (8.5-10.1); CHLORIDE 104 MEQ/L (98-107); GLOMERULAR FILTRATION RATE 31 ML/MIN (>89); GLUCOSE,RANDOM 168 MG/DL (74-106); MAGNESIUM 1.8 MG/DL (1.5-2.5); SODIUM (NA) 142 MEQ/L (136-145); TOTAL PROTEIN 5.4 GM/DL (6.4-8.2)
[2017-12-15] MEDS: CEFTOLOZANE-TAZOBACTAM INJ 150 MG in SODIUM CHLORIDE 0.9% INJ 100 ML IV SCH ×3 (06:32→23:21)
[2017-12-15] MEDS: metroNIDAZOLE 500 MG TAB PO SCH ×4 (06:32→23:21)
[2017-12-15 07:38] LABS: BANDS 6 % (0-6); BURR CELLS 1+ (NORMAL); CORRECTED NUCLEATED RBC 1 /100 WBC (0-0); LYMPHOCYTES 11 % (9-44); MONOCYTES 3 % (0-8); NEUTROPHIL # MANUAL DIFF 11.4 TH/MM3 (1.8-7.7); NUCLEATED RED BLOOD CELL 1 (0-0); POLYCHROMASIA 2.9 % (0.0-1.9); POLYS (SEG NEUTROPHILS) 80 % (16-70)
[2017-12-15] MEDS: BUDESONIDE-FORMOTEROL 160/4.5 MCG INHALER INH SCH ×2 (07:38→21:01)
[2017-12-15] MEDS: CALCITRIOL 0.25 MCG CAP PO SCH (08:58)
[2017-12-15] MEDS: DOCUSATE SODIUM 50 MG/SENNA 8.6 MG TAB PO SCH ×2 (08:58→21:01)
[2017-12-15] MEDS: LANTHANUM CARBONATE 500 MG CHEWABLE TABLET CHEW SCH ×3 (08:58→15:53)
[2017-12-15] MEDS: FAMOTIDINE 20 MG TAB PO SCH ×2 (08:59→21:01)
[2017-12-15] MEDS: INSULIN DETEMIR 100 UNITS/ML VIAL SQ SCH ×2 (08:59→21:00)
[2017-12-15] MEDS: SODIUM CHLORIDE 0.9% FLUSH 10 ML FLUSH IV FLUSH SCH ×2 (09:00→21:01)
[2017-12-15] MEDS ORDERED: POTASSIUM CHLORIDE 25 MEQ EFFERVESCENT TAB PEG ONE (09:00)
[2017-12-15] MEDS: CHLORHEXIDINE 0.12% (ORAL KIT) 15 ML CUP MT SCH ×2 (09:00→20:00)
--- NOTE | 2017-12-15 09:03 | HHI.NPPN ---
Subjective Renal Failure: Acute History of Present Illness This is a 77-year-old male with past medical history of ischemic heart disease, atrial fibrillation, congestive heart failure, possibly diastolic dysfunction, diabetes mellitus, chronic obstructive pulmonary disease, was admitted on 11/14 with respiratory distress. Nephrology was called to see the patient because of elevated BUN and creatinine. The patient has creatinine of 1.1 on admission, which increased after 2 or 3 to 1.3-1.5 and for the last 2 days, it has been going up and now it is 2.8. The patient was initially diagnosed with pneumonia and was started on antibiotics and then later on, patient developed respiratory failure and was intubated. He was also found to have asystole on 11/27 for 3 minutes and CPR was done with ACLS protocol, and it was shown that he has large right-sided pneumothorax. The blood pressure has been stable and there are no significant hypotensive episodes documented. Most of the history was taken from he patient' s chart. Additional Remarks Patient with trach placement. On ventilator. (Adeola Velez) Review of Systems General General Remarks Unable to do ROS as patient is intubated (Adeola Velez) Objective Data Data Vital Signs Date Time Temp Pulse Resp B/P (MAP) Pulse Ox O2 Delivery O2 Flow Rate FiO2 12/15/17 07:35 94 35 12/15/17 06:00 93 12/15/17 04:15 99 35 12/15/17 04:00 97.9 99 20 103/55 (71) 99 12/15/17 04:00 85 12/15/17 04:00 35 12/15/17 03:45 86 20 90/54 (66) 99 12/15/17 03:30 89 20 104/53 (70) 99 12/15/17 03:15 86 20 95/52 (66) 100 12/15/17 03:00 94 20 96/54 (68) 99 12/15/17 02:45 88 20 110/55 (73) 98 12/15/17 02:30 87 20 99/52 (68) 99 12/15/17 02:15 94 20 102/55 (71) 99 12/15/17 02:00 84 12/15/17 02:00 87 20 106/55 (72) 99 4/18/18 01:45 94 20 102/54 (70) 99 4/18/18 01:30 93 20 102/55 (71) 99 4/18/18 01:18 100 35 4/18/18 01:15 86 20 96/55 (69) 99 4/18/18 01:00 90 101/53 4/18/18 01:00 84 20 104/55 (71) 100 4/18/18 00:45 90 20 101/53 (69) 100 4/18/18 00:30 91 20 94/51 (65) 100 4/18/18 00:15 90 20 105/55 (72) 100 4/18/18 00:00 98.0 95 20 102/54 (70) 100 4/18/18 00:00 95 4/18/18 00:00 35 4/18/18 00:00 95 102/54 4/17/18 23:52 90 98/55 4/17/18 23:45 87 20 98/55 (69) 99 4/17/18 23:30 91 20 102/59 (73) 99 4/17/18 23:15 90 21 94/52 (66) 98 4/17/18 23:00 87 20 95/55 (68) 98 4/17/18 22:50 98 35 4/17/18 22:45 92 20 100/56 (71) 98 4/17/18 22:30 81 20 95/50 (65) 99 4/17/18 22:15 86 20 113/58 (76) 98 4/17/18 22:00 92 4/17/18 22:00 91 20 107/59 (75) 97 4/17/18 21:45 84 20 99/57 (71) 97 4/17/18 21:30 80 20 119/60 (79) 99 4/17/18 21:15 91 20 106/57 (73) 98 4/17/18 21:00 89 20 101/54 (70) 99 4/17/18 20:56 97 35 4/17/18 20:45 88 20 114/55 (74) 98 4/17/18 20:30 90 20 115/65 (82) 98 4/17/18 20:29 84 115/61 4/17/18 20:15 100 20 115/61 (79) 98 4/17/18 20:00 98.2 90 20 112/59 (76) 97 4/17/18 20:00 35 4/17/18 20:00 86 4/17/18 19:45 89 20 91/56 (68) 96 4/17/18 19:30 91 20 117/63 (81) 96 4/17/18 19:15 92 20 113/61 (78) 96 4/17/18 19:00 97 20 107/60 (76) 100 4/17/18 18:00 86 4/17/18 18:00 86 22 100/55 (70) 99 4/17/18 17:45 99 20 111/56 (74) 100 4/17/18 17:30 91 20 128/63 (84) 100 4/17/18 17:30 91 4/17/18 17:15 87 24 133/64 (87) 99 4/17/18 17:00 92 4/17/18 17:00 92 26 125/64 (84) 100 4/17/18 16:45 91 24 127/64 (85) 99 4/17/18 16:30 92 4/17/18 16:30 92 26 125/67 (86) 100 4/17/18 16:19 100 35 4/17/18 16:15 87 25 122/65 (84) 99 4/17/18 16:00 35 4/17/18 16:00 86 4/17/18 16:00 98.9 86 20 109/67 (81) 100 4/17/18 15:30 97 22 115/61 (79) 99 4/17/18 15:15 99 26 125/62 (83) 4/17/18 15:11 92 135/68 4/17/18 15:00 94 4/17/18 15:00 94 17 135/68 (90) 99 4/17/18 14:45 106 27 122/69 (86) 100 4/17/18 14:30 96 32 103/62 (76) 99 4/17/18 14:30 96 4/17/18 14:15 98 29 96/63 (74) 99 4/17/18 14:00 89 20 98/53 (68) 100 4/17/18 14:00 89 4/17/18 13:45 85 20 106/61 (76) 100 4/17/18 13:30 88 18 13:30 88 20 81/56 (64) 99 18 13:15 90 18 105/55 (72) 99 18 13:00 88 18 13:00 88 16 106/55 (72) 100 18 12:38 100 35 12/14/18 12:30 93 20 103/59 (74) 99 18 12:30 93 18 12:15 100 18 81/51 (61) 98 18 12:00 35 18 12:00 98 18 12:00 98.7 98 20 90/56 (67) 98 18 11:30 91 18 11:30 91 20 127/68 (87) 99 18 11:15 88 20 121/65 (83) 99 18 11:00 89 18 11:00 89 20 117/60 (79) 99 18 10:46 85 121/71 18 10:45 95 20 121/71 (88) 99 18 10:30 95 12/14/18 10:30 95 20 112/58 (76) 99 18 10:13 100 35 12/14/18 10:00 100 20 111/66 (81) 100 18 10:00 100 100 18 10:00 96 18 10:00 35 18 09:45 99 15 107/63 (78) 100 18 09:30 98 19 121/67 (85) 100 18 09:30 98 18 09:15 95 17 110/59 (76) 100 (Adeola Velez) -: 12/15/17 0445 12/15/17 0445 Tubes & Lines: Vas-Cath, Haynes (Adeola Velez) Physical Exam General Appearance: No Acute Distress, Obese (Adeola Velez) Eyes Eye Exam: Pupils Equal (Adeola Velez) Pulmonary Resp Exam: Breath Sounds Equal Resp Remarks SQ emphysema present Intubated CT right chest wall (Adeola Velez) Cardiology CV Exam: Regular (Adeola Velez) Gastrointestinal/Abdomen GI Exam: Soft, Non-Tender, Distended (Adeola Velez) Genitourinary Exam: Flank Non-Tender (Adeola Velez) Integumentary Skin Exam: Clear, Warm (Adeola Velez) Extremeties Extremities Exam: Moderate Edema (Adeola Velez) Neurologic Neuro Exam: Awake (Adeola Velez) Assessment/Plan Assessment Summary: DAVID/Acute Renal Failure Problem List: (1) DAVID (acute kidney injury) ICD Codes: N17.9 - Acute kidney failure, unspecified Plan: Acute kidney injury most likely related to prerenal vs acute tubular necrosis, either from the infection or related to his cardiac status and cardiac arrest. Renal US unable to visualize kidneys or bladder? Oliguric Creatinine at 2.10 Continues on pressors and amiodarone. Plan Renal dose antibiotics Continue for follow UOP and BMP Avoid nephrotoxins as possible. hypokalemia at 2.7 replacement has been ordered Hemodialysis planned for today but remains difficult with low blood pressure. Patient may need CVVHD (2) Respiratory failure ICD Codes: J96.90 - Respiratory failure, unspecified, unspecified whether with hypoxia or hypercapnia Plan: Intubated weaning per peg driver. (3) Thrombocytopenia ICD Codes: D69.6 - Thrombocytopenia, unspecified Plan: platelet transfusion. Hematology has been consulted. Order LDH. Etiology? (4) Anemia ICD Codes: D64.9 - Anemia, unspecified Plan: has received blood transfusion. (Adeola Velez) Problem List: (1) DAVID (acute kidney injury) ICD Codes: N17.9 - Acute kidney failure, unspecified Plan: Acute kidney injury most likely related to prerenal vs acute tubular necrosis, either from the infection or related to his cardiac status and cardiac arrest. Renal US unable to visualize kidneys or bladder? Oliguric Creatinine at 2.10 Continues on pressors and amiodarone. Plan Renal dose antibiotics Continue for follow UOP and BMP Avoid nephrotoxins as possible. hypokalemia at 2.7 replacement has been ordered Hemodialysis planned for today but remains difficult with low blood pressure. Patient seen and examined, agree with above. Patient may need CVVHD, if BP remain low. HD now daily for more fluid removal. (2) Respiratory failure ICD Codes: J96.90 - Respiratory failure, unspecified, unspecified whether with hypoxia or hypercapnia Plan: Intubated weaning per peg driver. (3) Thrombocytopenia ICD Codes: D69.6 - Thrombocytopenia, unspecified Plan: platelet transfusion. Hematology has been consulted. Order LDH. Etiology? (4) Anemia ICD Codes: D64.9 - Anemia, unspecified Plan: has received blood transfusion. (America Vela MD) Adeola Velez Dec 15, 2017 09:03 America Vela MD Dec 16, 2017 09:57
[2017-12-15] MEDS: HYDROCORTISONE SOD SUCCINATE 100 MG VIAL IV PUSH SCH ×2 (11:01→23:21)
[2017-12-15] MEDS: ALBUMIN 25% INJ 100 ML IV PRN ×2 (12:43→12:44)
[2017-12-15] MEDS: MANNITOL 12.5 GM/50 ML VIAL IV PRN (12:43)
[2017-12-15] MEDS: GENTAMICIN SULFATE 20 MG/2 ML VIAL OTHER PRN (12:43)
[2017-12-15] MEDS: EPOETIN ALFA 10,000 UNITS/ML VIAL IV PUSH PRN (12:44)
--- NOTE | 2017-12-15 13:32 | HHI.CCPN ---
Subjective Remarks/Hospital Course This is a 77-year-old male with a medical history significant for COPD, CHF, A. fib, diabetes, that presented to emergency department from [facility] for evaluation of worsening shortness of breath over the last 3 days. The patient was been given Solu-Medrol 125 mg and 2 albuterol treatments enroute to ED. Upon presentation to the ED the patient was on a nonrebreather. He was tachypneic and tachycardic. Patient's medical history significant for MRSA pneumonia previously admitted on 10/27/16 for approximately 12 days at [facility]. The patient is normally on 2.5 L/m nasal cannula O2 home dependency, and he lives with ( normally) a PCO2 in the 80s according to his . Patient was then discharged to [facility], and then transferred to [facility] for rehabilitation. He has been on an unknown antibiotic per the family and steroids for the last 3 days. Laboratory and imaging studies were performed with noted elevation in CO2 The patient was given empiric antibiotics in the ED and placed on BiPAP. Critical care medicine was consulted. Subjective: 11/15: Patient maintained on BiPAP throughout the night O2 saturations 97-98% on FiO2 of 0.40. Hemodynamically stable. Attempts made to wean patient to nasal cannula this a.m. unsuccessful, patient's O2 saturation in the 70s, patient placed back on BiPAP. Chest x-ray pending WBC count significantly diminished, leukocytosis resolved. Patient extremely anxious, Precedex infusion initiated. 11/16: Late entry note. Patient seen 10 AM. Overnight the patient converted to A. fib RVR, despite being on Cardizem 4 times a day and metoprolol twice a day- home medications, the patient received IV Cardizem followed by amiodarone infusion. Per report the patient became hypotensive, Cardizem discontinued. Amiodarone continued. Early this a.m. patient was resting comfortably A. fib rate controlled rate. The patient suddenly converted to A. fib RVR heart rate 150s-160s, acute hypoxemic respiratory failure, requiring intubation. The patient was intubated uneventfully and continues on amiodarone at 0.5 mg/hour, rate now controlled in conjunction with sedation. Cardiology consulted, his scratch brusher is Dr. Reyes X-ray revealed lung consolidation improved, chest x- ray clear. Plan for CPAP trials in a.m.. 11/17: No acute events overnight. Patient had 1 short 8 beat run of V. tach last evening was self resolution, electrolytes within normal limits. The patient continues on amiodarone 0.5 mg/hr. CPAP trials initiated this a.m.. Tube feeds initiated at trickle feeds. Patient converted to sinus rhythm at 2 AM. 11/18 Patient remains sedated and intubated. Afebrile. 11/19 Patient was extubated yesterday however last night he was noted to choke on water provided by the family. Stat ABG demonstrated acute hypercapnic respiratory failure and was emergently intubated. Currently sedated and intubated. 11/20 Patient remains intubated on Fentanyl drip however he si awake and alert. Afebrile. 11/21 Patient is awake and alert placed on CPAP with PS:15, PEEP:5. Afebrile. 11/22 Patient remains intubated , did not tolerate CPAP trials yesterday as he became tachycardic and hypertensive. On no sedation awake and alert. 11/23 No events overnight, off sedation. 11/24: Resting comfortably on mechanical ventilation currently. Daily C Pap trials ongoing. 11/25: Sedated with Precedex, orally intubated on mechanical ventilation. Daily C Pap trials 11/26: Sedated with Precedex, orally intubated on mechanical ventilation. Got tachypneic with CPAP trial today hence placed back on PRVC. Spiked a fever, garcia cultures ordered. Went into A. fib with RVR subsequently for which being initiated on amiodarone bolus followed by drip and Lopressor 5 mg IV every 6 as needed for 11/27: This morning patient developed bradycardia followed by asystole for which she had 3 minutes CPR with ACLS protocol with return of spontaneous circulation. Post code chest x-ray revealed moderate to large right pneumothorax for which a right pigtail catheter was placed by me however despite airleak patient continue have moderate to large pneumothorax hence a second right sided 28 Surinamese chest tube was placed to -40 cm water pressure. Air leaks 1+ in both pigtail catheter and chest tube. Patient remains in a flutter currently. Dr. reyes evaluated patient as well following cardiac arrest. 11/28: Sedated, arousable, orally intubated on mechanical ventilation. Worsening renal function noted. MDR Pseudomonas in sputum. Right sided chest tube/ pigtail catheter with 1+ air leak in both. Subcutaneous emphysema noted over right side of face neck and right upper extremity. On 50% FiO2, PEEP +5. Poor urine output for which 500 cc and is bolus given earlier. Treated for hyperkalemia with Kayexalate PO, glucose insulin, calcium IV. 4/2: Remains sedated, arousable, orally intubated on mechanical ventilation. A. fib with RVR this morning for which she was loaded with amiodarone and initiated on amiodarone drip. Spiking fever 103.5. ID adjusting antibiotics. Stool for C. difficile ordered as he had some diarrhea today though received Kayexalate yesterday for hyperkalemia. Pigtail catheter on the right side appeared to be dislodged hence this was removed. 28 Surinamese chest tube in right pleural cavity repositioned. 11/30: Late entry note , patient seen at 12 noon. Creatinine continues to trend upward.Sedated but easily arousable. 12/01: Patient lightly sedated, following commands this a.m.. Creatinine noted increased, possible dialysis consideration for tomorrow. Patient to be diuresed today. CPAP trial initiated failed after 5 minutes, repeat this afternoon. 12/02: Patient placed on Lasix infusion throughout the night . No renal improvement,creatinine worsened today , plan for Vas-Cath placement and IHD today. This extensive discussion with patient and plans for tracheostomy and PEG tube placement secondary to failure to wean. 12/03: Late entry note, patient seen at 11 am. Patient scheduled for PEG placement today by Dr. Iglesias. Patient continues to fail CPAP trials. Plan for tracheostomy in the near future 12/04: Late entry note . Patient seen earlier this am. Overnight the patient became hypoglycemic, secondary to n.p.o. status, post PEG placement. D10 was initiated at 30 cc/hr. Tube feeds reinitiated Jevity 1.5, 24 hours post PEG tube placed, D10 discontinued. Patient remains on fentanyl at 100 mics/hour, lightly sedated. Patient denies pain answering by nodding head to yes and no questions. Tracheostomy planned for Wednesday12/06/[address] Calderon. 12/05: Remains intubated sedated with 50 mcg of fentanyl. On attempted CPAP trial patient remained dyspneic. Significant neuromuscular weakness persist. Chest x-ray shows small right apical pneumothorax. Tentatively plan for tracheostomy tomorrow. Dr. Calderon has already been consulted 12/06 Patient remains intubated for possible trach today. On Levophed 12 mics. Afebrile. 12/07 No events overnight. Trach was placed on hold yesterday as patient was on Levophed. He is down to 5 mics today. Afebrile. 12/08 Patient remains intubated on no sedation. CT brain this morning showed no acute process. Off Levophed. 12/09 Patient was placed back on Levophed 6 mics. Afebrile. Remains intubated on no sedation. 12/10 Patient remains intubated. On Neosyn 40 mics went into Afib with RVR HR 128 12/11 Patient remains intubated. Now on Neosyn 200 mics ( MAP 86mmHg). s/p HD yesterday with 1.5L removed. T:99.7 12/12 Patient remains sedated and intubated. Neosyn down 100 mics. For transfusion 2u PRBC and 1u PLT ( Hgb 6.7 and PLT 18 this morning) s/p HD with 3L removed yesterday. WBC is trending down. 12/13: More critically ill today, Bertin-Synephrine had to be increased to 150 mcg/ min, remains borderline hypotensive despite Bertin-Synephrine, currently in A. fib with RVR. Digoxin additional 0.25 mg IV push 1, start amiodarone infusion 12/14: Patient remains patient remains intubated currently on 50 mcg/min of Bertin- Synephrine. Remains on amiodarone infusion with heart rate better controlled 110-120. Plan for perc trach at bedside today 12/15: Remains on Bertin-Synephrine 50 mcg/min. On attempted CPAP patient had multiple PVCs and PACs. Potassium 2.7 getting replaced. Argatroban will be restarted Objective Vital Signs Date Time Temp Pulse Resp B/P (MAP) Pulse Ox O2 Delivery O2 Flow Rate FiO2 12/15/17 12:00 98.5 97 36 116/56 (76) 95 12/15/17 12:00 35 Intake and Output 4/12/15/17 12/15/17 07:59 15:59 23:59 Intake Total 916 ml Output Total 0 ml Balance 916 ml Result Diagram: 12/15/17 0445 12/15/17 0445 Imaging Last Impressions Chest X-Ray 12/11/17 0000 Signed Impressions: Service Date/Time: Monday, December 11, 2017 10:51 - CONCLUSION: Stable chest with moderate subcutaneous emphysema and no pneumothorax. Torin Dennison MD FACR Liver Ultrasound 12/09/17 0000 Signed Impressions: Service Date/Time: November 19:18 - CONCLUSION: 1. Limited suboptimal examination with only a small portion of the liver visualized. 2. The gallbladder and common bile duct could not be visualized. The pancreas is not evaluated. 3. Left pleural effusion. Liang Jimenez MD Head CT 12/08/17 0000 Signed Impressions: Service Date/Time: Friday, December 08, 2017 08:25 - CONCLUSION: Negative for acute process. Torin Dennison MD FACR Catheter Placement X-Ray 12/02/17 0000 Signed Impressions: Service Date/Time: November 10:47 - CONCLUSION: Uncomplicated right internal jugular Vas-Cath placement as above. incidental note is made of subcutaneous emphysema within the chest wall and neck Con Dennison MD Lower Extremity Ultrasound 11/29/17 0000 Signed Impressions: Service Date/Time: Wednesday, November 29, 2017 22:02 - CONCLUSION: Normal examination. Abdiel Mcintyre MD Renal Ultrasound 11/28/17 0000 Signed Impressions: Service Date/Time: Tuesday, November 28, 2017 20:30 - CONCLUSION: Nondiagnostic exam. Rashad Bose MD Objective Remarks GENERAL: Patient is 77 yo intubated SKIN: Warm and dry. HEAD: Normocephalic. Mild subcutaneous emphysema involving right side of face neck shoulder and arm. EYES: No scleral icterus. No injection or drainage. NECK: Supple, trachea midline. No JVD or lymphadenopathy. New trach without significant bleed CARDIOVASCULAR: S1-S2 irregularly irregular, tachycardic in 110s hypotensive, currently on Bertin-Synephrine at 50 mcg/min RESPIRATORY: On mechanical ventilation, air entry decreased bilaterally, scattered rhonchi bilaterally. R chest tube with 1+ airleak. Subcutaneous emphysema or right chest wall, neck, right face and right upper extremity. GASTROINTESTINAL: Abdomen soft, non-tender, nondistended. MUSCULOSKELETAL: Bilateral peripheral edema +2 Neuro: Awake, s/p, on mechanical ventilation, follows simple commands intermittently A/P Problem List: (1) A-fib ICD Code: I48.91 - Unspecified atrial fibrillation (2) CHF (congestive heart failure) ICD Code: I50.9 - Heart failure, unspecified Status: Chronic (3) HTN (hypertension) ICD Code: I10 - Essential (primary) hypertension Status: Chronic (4) ADRIAN (obstructive sleep apnea) ICD Code: G47.33 - Obstructive sleep apnea (adult) (pediatric) Status: Chronic (5) MRSA pneumonia ICD Code: J15.212 - Pneumonia due to Methicillin resistant Staphylococcus aureus Status: Acute (6) Diabetes mellitus type 2, insulin dependent ICD Code: E11.9 - Type 2 diabetes mellitus without complications; Z79.4 - machine umbrella tipper (current) use of insulin Status: Chronic (7) COPD (chronic obstructive pulmonary disease) ICD Code: J44.9 - Chronic obstructive pulmonary disease, unspecified Status: Acute (8) Respiratory distress ICD Code: R06.03 - Acute respiratory distress Status: Acute (9) Leukocytosis ICD Code: D72.829 - Elevated white blood cell count, unspecified Status: Acute (10) Lung consolidation ICD Code: J18.1 - Lobar pneumonia, unspecified organism Status: Acute (11) Anxiety ICD Code: F41.9 - Anxiety disorder, unspecified Status: Chronic (12) Failure to wean from mechanical ventilation ICD Code: Z99.11 - Dependence on respirator [ventilator] status Assessment and Plan Plan by systems: Neurologic: Encephalopathy Anxiety Off sedation, monitor neuro status, Neuro checks per ICU protocol EEG: Mild- mod encephalopathy. Neuro is following- Dr. Anne. CT brain 12/08 no acute process Respiratory: Acute respiratory failure on mechanical ventilation- extubated and reintubated night of 11/18 after he was noted to choke on water provided by family. COPD exacerbation Pneumonia-MRSA, MDR Pseudomonas Right sided pneumothorax following CPR status post pigtail catheter/chest tube placement 11/27 Obstructive sleep apnea Home O2 dependency Continue with vent support keep sats >90%. s/p Trach 12/14/17 CPAP attendant did not tolerate due to PVCs and PACs Bronchodilators, HC 50mg IV Q12 Pulmonology - Dr Price, Right sided chest tube in place. Continue 28 F right chest tube to -40 cm water pressure with underwater seal. Cardiovascular: A. fib RVR Cardiac arrest - asystole, status post CPR 11/27 History of CHF CAD Currently on Bertin-Synephrine 50 mcg/min to keep MAP>65mmHg. IV digoxin 0.25 mg 1 12/13, and scheduled digoxin Continue amiodarone infusion for A. fib with RVR. Start p.o. amiodarone 200 twice daily and attempt wean to DC IV Lactic acid:2.2 on 12/07 Hydrocortisone 50mg IV [id number] weaning once hemodynamically more stable Atorvastatin 80 daily on hold for elevated LFT's Cardiology - Dr. Reyes Echo showed EF 65-70% Renal: DAVID Monitor renal function, electrolytes replacement as needed Nephrology Dr. Ragland. 12/02 Vas-Cath placed for initiation of IHD . HD planned for today FEN/GI: Elevated LFT's GERD Monitor LFT's, US liver on 12/06: non diagnostic study US liver 12/09 limited study Hepatitis profile is negative On tube feeds On Nepro @40cc/hr. Pepcid for GI prophylaxis 12/03 PEG tube placement ID: Pneumonia MRSA, MDR Pseudomonas Leukocytosis ID following- Antibiotics per ID (on Micafungin, Zerbaxa, Flagyl) Stool for C. difficile negative on 11/29 and 12/06 Pertinent cultures 12/09 BC: NGTD 411 Urine cx: C. 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 Quintana. Now on hold for 24 hours for trach placement. 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 Unable to wean failed due to arrhythmia Problem Qualifiers (1) COPD (chronic obstructive pulmonary disease): Qualified Codes: J44.9 - Chronic obstructive pulmonary disease, unspecified (2) Leukocytosis: Qualified Codes: D72.829 - Elevated white blood cell count, unspecified Darwin Meadows MD Dec 15, 2017 13:32
[2017-12-15] MEDS: MICAFUNGIN INJ 150 MG in SODIUM CHLORIDE 0.9% INJ 100 ML IV SCH (14:53)
--- NOTE | 2017-12-15 15:08 | HHI.IDPN ---
Note Infectious Disease Note Patient awake on the ventilator. No distress. Currently undergoing hemodialysis. Reportedly tolerating it better than yesterday. On phenylephrine 120 mcg. White blood cell count continues to decrease. Urine culture pending. Blood cultures no growth Repeat sputum culture has multiple resistant Pseudomonas aeruginosa. Wound culture from 12/08 has Nette. Previous urine culture on 11/28 had Nette. Patient was treated with Diflucan. Chest tube in place on the right due to pneumothorax. 77-year-old, white male who presents to the Emergency Department with shortness of breath. The patient has a history of COPD and CHF. He usually uses CPAP at the assisted living facility. He was noted to have been developing coughing and shortness of breath over the past couple of days, and his states that he was coughing a lot yesterday and bringing up mostly phlegm and that he was restless and could not sleep. Recently treated at [facility] for pneumonia due to methicillin-resistant Staphylococcus aureus. PAST MEDICAL HISTORY: COPD, CHF, atrial fibrillation, insulin-dependent diabetes mellitus, hypertension, hyperlipidemia, gastroesophageal reflux, gastroparesis, iron deficiency anemia, oxygen-dependent. PAST SURGICAL HISTORY: Right knee surgery, right carpal tunnel release, cardiac ablation treatment 2002. ALLERGIES: ASPIRIN, CODEINE. MEDICATIONS: Current Medications Medications (Trade) Dose Ordered Sig/Yani Route PRN Reason Start Time Stop Time Status Last Admin Dose Admin Sodium Chloride (NS Flush) 2 ml UNSCH PRN IV FLUSH FLUSH AFTER USING IV ACCESS 11/14/17 15:45 11/17/17 14:05 Sodium Chloride (NS Flush) 2 ml BID IV FLUSH 11/14/17 21:00 12/15/17 09:00 Ondansetron HCl (Zofran Inj) 4 mg Q6H PRN IV PUSH NAUSEA OR VOMITING 11/14/17 15:45 11/18/17 16:03 Miscellaneous Information 1 Q361D XX 11/14/17 15:45 11/14/17 15:45 Chlorhexidine Gluconate (Chlorhexidine 2% Cloth) Taper DAILY@04 TOP 11/15/17 04:00 11/11/18 03:59 12/15/17 03:40 Chlorhexidine Gluconate (Chlorhexidine 2% Cloth) 3 pack UNSCH PRN TOP HYGIENIC CARE 11/14/17 15:45 Senna/Docusate Sodium (Ricarda-Colace) 1 tab BID PO 11/14/17 21:00 12/15/17 08:58 Magnesium Hydroxide (Milk Of Magnesia Liq) 30 ml Q12H PRN PO Mild constipation 11/14/17 15:45 Sennosides (Senokot) 17.2 mg Q12H PRN PO Moderate constipation 11/14/17 15:45 Bisacodyl (Dulcolax Supp) 10 mg DAILY PRN RECTAL SEVERE CONSITIPATION 11/14/17 15:45 Lactulose (Lactulose Liq) 30 ml DAILY PRN PO SEVERE CONSITIPATION 11/14/17 15:45 Apixaban (Eliquis) 5 mg BID PO 11/14/17 21:00 Future Hold 11/27/17 20:17 Atorvastatin Calcium (Lipitor) 80 mg HS PO 11/14/17 21:00 Future Hold 12/05/17 19:49 Digoxin (Lanoxin) 0.125 mg DAILY PO 11/15/17 09:00 Future Hold 11/17/17 08:24 Diltiazem HCl (Cardizem) 60 mg QID PO 11/14/17 18:00 Future Hold 12/06/17 08:44 Patient Own Medication PT OWN MED: [facility]... HS INH 11/14/17 21:00 Future Hold Hydralazine HCl (Apresoline Inj) 20 mg Q4H PRN IV PUSH SYS BP GREATER THAN 160 MMHG 11/17/17 12:00 11/22/17 07:38 Budesonide/ Formoterol Fumarate (Symbicort 160-4.5 Mcg Inh) 2 puff Q12HR INH 11/18/17 21:00 12/15/17 07:38 Chlorhexidine Gluconate (Peridex 0.12% Liq) 15 ml BID@08,20 MT 11/19/17 08:00 12/15/17 09:00 Albuterol/ Ipratropium (Duoneb Neb) 1 ampule Q2HR NEB PRN INH WHEEZING 11/18/17 22:30 12/13/17 08:12 Famotidine (Pepcid) 10 mg BID PO 11/22/17 21:00 12/15/17 08:59 Insulin Aspart (NovoLOG SUPPLEMENTAL SCALE) 1 Q4HR SQ 11/26/17 16:00 12/15/17 03:40 Dextrose (D50w (Vial) Inj) 25 ml UNSCH PRN IV HYPOGLYCEMIA-SEE COMMENTS 11/26/17 15:30 12/04/17 01:18 Glucagon (Glucagon Inj) 1 mg UNSCH PRN IM/SQ HYPOGLYCEMIA-SEE COMMENTS 11/26/17 15:30 Fentanyl Citrate 250 ml @ 5 mls/hr TITRATE PRN IV SEDATION 11/27/17 13:45 12/03/17 08:58 Metoprolol Tartrate (Lopressor Inj) 5 mg Q6H PRN IV PUSH heart rate greater than 135/mi 11/29/17 09:15 Sodium Chloride 1,000 ml @ 0 mls/hr Q0M PRN OTHER For Prime & Rinse Back 12/02/17 09:30 12/08/17 16:50 Heparin Sodium (Porcine) (Heparin Inj) 8,000 units UNSCH PRN IV FLUSH WITH DIALYSIS 12/02/17 09:30 Sodium Chloride 1,000 ml @ 200 mls/hr Q5H PRN IV WITH DIALYSIS 12/02/17 09:30 Sodium Chloride 1,000 ml @ 0 mls/hr Q0M PRN OTHER WITH DIALYSIS 12/02/17 09:30 Mannitol (Mannitol Inj) 12.5 gm UNSCH PRN IV WITH DIALYSIS 12/02/17 09:30 12/15/17 12:43 Albumin Human 100 ml @ 60 mls/hr UNSCH PRN IV WITH DIALYSIS 12/02/17 09:30 12/15/17 12:44 Sodium Chloride (NS Flush) 5 ml UNSCH PRN IV FLUSH WITH DIALYSIS 12/02/17 09:30 12/08/17 16:51 Heparin Sodium (Porcine) (Heparin Inj) UNSCH PRN .XX WITH DIALYSIS 12/02/17 09:30 12/08/17 16:50 Gentamicin Sulfate (Gentamicin Inj) 20 mg UNSCH PRN OTHER WITH DIALYSIS 12/02/17 09:30 12/15/17 12:43 Ondansetron HCl (Zofran Inj) 4 mg UNSCH PRN IV PUSH WITH DIALYSIS 12/02/17 09:30 Acetaminophen (Tylenol) 650 mg UNSCH PRN PO for headach, pain, temp > 101F 12/02/17 09:30 Diphenhydramine HCl (Benadryl) 25 mg UNSCH PRN PO for hives/itching/anaphylaxis 12/02/17 09:30 Nitroglycerin (Nitrostat Sl) 0.4 mg UNSCH PRN SL CHEST PAIN 12/02/17 09:30 Clonidine (Catapres) 0.1 mg UNSCH PRN PO for BP > 180/100 X 2 readings 12/02/17 09:30 Epoetin Kvng (Epogen Inj) 4,000 units UNSCH PRN IV PUSH WITH DIALYSIS 12/02/17 09:30 12/15/17 12:44 Gelatin (Gelfoam 12 Mm/7 Mm Top) 1 foam UNSCH PRN TOP SEE LABEL COMMENTS 12/02/17 09:30 Sodium Chloride (NS Flush) UNSCH PRN IV FLUSH SEE PROTOCOL 12/02/17 11:15 Heparin Sodium (Porcine) (Heparin Inj) UNSCH PRN IV FLUSH SEE PROTOCOL 12/02/17 11:15 Micafungin Sodium 150 mg/Sodium Chloride 100 ml @ 100 mls/hr Q24H IV 12/06/17 12:00 12/15/17 14:53 Hydrocortisone Sodium Succinate (SoluCORTEF INJ) 50 mg Q12H IV PUSH 12/07/17 23:00 12/15/17 11:01 Insulin Detemir (Levemir Inj) 5 units Q12HR SQ 12/07/17 12:00 12/15/17 08:59 Lanthanum Carbonate (Fosrenol Chew) 500 mg TID CHEW 12/07/17 18:00 12/15/17 08:58 Calcitriol (Rocaltrol) 0.5 mcg DAILY PO 12/08/17 09:00 12/14/17 07:27 Ceftolozane/ Tazobactam 150 mg/ Sodium Chloride 100 ml @ 100 mls/hr Q8H IV 12/08/17 23:00 12/15/17 14:53 Levofloxacin/ Dextrose 50 ml @ 50 mls/hr Q24H IV 12/08/17 16:00 12/14/17 17:22 Norepinephrine Bitartrate 250 ml @ 7.5 mls/hr TITRATE PRN IV Blood pressure management 12/08/17 21:00 12/10/17 03:00 Terbutaline Sulfate (Brethine Inj) 1 mg UNSCH PRN SQ FOR EXTRAVASATION PROTOCOL 12/10/17 10:15 Metronidazole (Flagyl) 500 mg Q6HR PO 12/10/17 13:30 12/15/17 06:32 Phenylephrine HCl 160 mg/Dextrose 500 ml @ 7.5 mls/hr TITRATE PRN IV Blood pressure management 12/10/17 19:30 12/14/17 20:29 Terbutaline Sulfate (Brethine Inj) 1 mg UNSCH PRN SQ For Extravasation 12/10/17 19:30 Argatroban 250 mg/ Sodium Chloride 252.5 ml @ 3.03 mls/hr TITRATE PRN IV aPTT < 50 12/12/17 18:00 12/12/17 21:54 Amiodarone HCl 450 mg/Sodium Chloride 250 ml @ 33.33 mls/ hr Q7H31M PRN IV Per Protocol 12/13/17 12:30 12/14/17 23:52 Amiodarone HCl (Cordarone) 200 mg Q12HR PO 12/15/17 14:00 OBJECTIVE: Vital Signs Date Time Temp Pulse Resp B/P (MAP) Pulse Ox O2 Delivery O2 Flow Rate FiO2 12/15/17 14:00 104 12/15/17 12:00 98.5 97 36 116/56 (76) 95 12/15/17 12:00 97 12/15/17 12:00 35 12/15/17 11:11 97 35 12/15/17 10:00 106 12/15/17 08:00 98.9 104 33 109/55 (73) 97 12/15/17 08:00 35 12/15/17 08:00 104 12/15/17 07:35 94 35 12/15/17 06:00 93 12/15/17 04:15 99 35 12/15/17 04:00 97.9 99 20 103/55 (71) 99 12/15/17 04:00 85 12/15/17 04:00 35 12/15/17 03:45 86 20 90/54 (66) 99 12/15/17 03:30 89 20 104/53 (70) 99 12/15/17 03:15 86 20 95/52 (66) 100 12/15/17 03:00 94 20 96/54 (68) 99 12/15/17 02:45 88 20 110/55 (73) 98 12/15/17 02:30 87 20 99/52 (68) 99 4/18/18 02:15 94 20 102/55 (71) 99 4/18/18 02:00 84 4/18/18 02:00 87 20 106/55 (72) 99 4/18/18 01:45 94 20 102/54 (70) 99 4/18/18 01:30 93 20 102/55 (71) 99 4/18/18 01:18 100 35 4/18/18 01:15 86 20 96/55 (69) 99 4/18/18 01:00 90 101/53 4/18/18 01:00 84 20 104/55 (71) 100 4/18/18 00:45 90 20 101/53 (69) 100 4/18/18 00:30 91 20 94/51 (65) 100 4/18/18 00:15 90 20 105/55 (72) 100 4/18/18 00:00 98.0 95 20 102/54 (70) 100 4/18/18 00:00 95 4/18/18 00:00 35 4/18/18 00:00 95 102/54 4/17/18 23:52 90 98/55 4/17/18 23:45 87 20 98/55 (69) 99 4/17/18 23:30 91 20 102/59 (73) 99 4/17/18 23:15 90 21 94/52 (66) 98 4/17/18 23:00 87 20 95/55 (68) 98 4/17/18 22:50 98 35 4/17/18 22:45 92 20 100/56 (71) 98 4/17/18 22:30 81 20 95/50 (65) 99 4/17/18 22:15 86 20 113/58 (76) 98 4/17/18 22:00 92 4/17/18 22:00 91 20 107/59 (75) 97 4/17/18 21:45 84 20 99/57 (71) 97 4/17/18 21:30 80 20 119/60 (79) 99 4/17/18 21:15 91 20 106/57 (73) 98 4/17/18 21:00 89 20 101/54 (70) 99 4/17/18 20:56 97 35 4/17/18 20:45 88 20 114/55 (74) 98 4/17/18 20:30 90 20 115/65 (82) 98 4/17/18 20:29 84 115/61 4/17/18 20:15 100 20 115/61 (79) 98 4/17/18 20:00 98.2 90 20 112/59 (76) 97 4/17/18 20:00 35 4/17/18 20:00 86 4/17/18 19:45 89 20 91/56 (68) 96 4/17/18 19:30 91 20 117/63 (81) 96 4/17/18 19:15 92 20 113/61 (78) 96 4/17/18 19:00 97 20 107/60 (76) 100 4/17/18 18:00 86 4/17/18 18:00 86 22 100/55 (70) 99 4/17/18 17:45 99 20 111/56 (74) 100 4/17/18 17:30 91 20 128/63 (84) 100 17/18 17:30 91 17/18 17:15 87 24 133/64 (87) 99 4/17/18 17:00 92 12/14/18 17:00 92 26 125/64 (84) 100 17/18 16:45 91 24 127/64 (85) 99 4/17/18 16:30 92 4/17/18 16:30 92 26 125/67 (86) 100 /17/18 16:19 100 35 /17/18 16:15 87 25 122/65 (84) 99 17/18 16:00 35 17/18 16:00 86 12/14/18 16:00 98.9 86 20 109/67 (81) 100 17/18 15:30 97 22 115/61 (79) 99 17/18 15:15 99 26 125/62 (83) 12/14/18 15:11 92 135/68 Laboratory Tests Test 12/14/17 04:00 12/15/17 04:45 White Blood Count 16.1 TH/MM3 13.3 TH/MM3 Red Blood Count 3.78 MIL/MM3 3.49 MIL/MM3 Hemoglobin 10.6 GM/DL 9.8 GM/DL Hematocrit 32.1 % 30.2 % Mean Corpuscular Volume 85.0 FL 86.4 FL Mean Corpuscular Hemoglobin 28.0 PG 28.1 PG Mean Corpuscular Hemoglobin Concent 33.0 % 32.6 % Red Cell Distribution Width 17.2 % 17.6 % Platelet Count 54 TH/MM3 49 TH/MM3 Mean Platelet Volume 9.5 FL 9.4 FL Neutrophils (%) (Auto) 85.6 % 79.1 % Lymphocytes (%) (Auto) 9.3 % 15.0 % Monocytes (%) (Auto) 5.0 % 5.7 % Eosinophils (%) (Auto) 0.0 % 0.1 % Basophils (%) (Auto) 0.1 % 0.1 % Neutrophils # (Auto) 13.8 TH/MM3 10.5 TH/MM3 Lymphocytes # (Auto) 1.5 TH/MM3 2.0 TH/MM3 Monocytes # (Auto) 0.8 TH/MM3 0.8 TH/MM3 Eosinophils # (Auto) 0.0 TH/MM3 0.0 TH/MM3 Basophils # (Auto) 0.0 TH/MM3 0.0 TH/MM3 CBC Comment AUTO DIFF AUTO DIFF Differential Total Cells Counted 100 100 Neutrophils % (Manual) 86 % 80 % Band Neutrophils % 4 % 6 % Lymphocytes % 7 % 11 % Monocytes % 3 % 3 % Neutrophils # (Manual) 14.5 TH/MM3 11.4 TH/MM3 Nucleated Red Blood Cells 4 /100 WBC 1 /100 WBC Differential Comment FINAL DIFF MANUAL FINAL DIFF MANUAL Platelet Estimate LOW LOW Platelet Morphology Comment NORMAL NORMAL Ovalocytes 1+ Polychromasia 2.9 % Basophilic Stippling MOD [employer] Cells 1+ Laboratory Tests Test 12/14/17 04:00 12/15/17 04:45 Blood Urea Nitrogen 62 MG/DL 50 MG/DL Creatinine 2.43 MG/DL 2.10 MG/DL Random Glucose 123 MG/DL 168 MG/DL Total Protein 5.6 GM/DL 5.4 GM/DL Albumin 3.2 GM/DL 3.3 GM/DL Calcium Level 7.9 MG/DL 7.8 MG/DL Magnesium Level 2.1 MG/DL 1.8 MG/DL Alkaline Phosphatase 380 U/L 449 U/L Aspartate Amino Transf (AST/SGOT) 35 U/L 42 U/L Alanine Aminotransferase (ALT/SGPT) 40 U/L 34 U/L Total Bilirubin 1.0 MG/DL 1.0 MG/DL Sodium Level 143 MEQ/L 142 MEQ/L Potassium Level 3.6 MEQ/L 2.7 MEQ/L Chloride Level 105 MEQ/L 104 MEQ/L Carbon Dioxide Level 26.8 MEQ/L 29.3 MEQ/L Anion Gap 11 MEQ/L 9 MEQ/L Estimat Glomerular Filtration Rate 26 ML/MIN 31 ML/MIN Microbiology Date/Time Source Procedure Growth Status 12/14/17 05:00 Urine Catheterized Urine Urine Culture Pending Received Imaging: Chest X-Ray 12/14/17 0600 Signed Impressions: Service Date/Time: Thursday, December 14, 2017 04:58 - CONCLUSION: 1. Right chest tube remains in place. A small basilar pneumothorax is present. 2. Improving left base consolidation. Abdiel Vidales MD Chest X-Ray 12/14/17 0000 Signed Impressions: Service Date/Time: Thursday, December 14, 2017 11:45 - CONCLUSION: 1. Tracheostomy appears in appropriate location. There is no left pneumothorax. Small right pneumothorax is stable with chest tube in place. 2. Stable left basilar opacity. Abdiel Kwon MD Chest X-Ray 12/13/17 0000 Signed Impressions: Service Date/Time: Wednesday, December 13, 2017 04:01 - CONCLUSION: 1. Mild left base consolidation developing. 2. Right chest tube remains in place. No pneumothorax but chest wall emphysema persists. Abdiel Vidales MD Chest X-Ray 12/09/17 0600 Signed Impressions: Service Date/Time: November 03:05 - CONCLUSION: Tiny right apical pneumothorax. Nikunj Oneil MD Head CT 12/08/17 0000 Signed Impressions: Service Date/Time: Friday, December 08, 2017 08:25 - CONCLUSION: Negative for acute process. Torin Dennison MD FACR Chest X-Ray 12/08/17 0000 Signed Impressions: Service Date/Time: Friday, December 08, 2017 10:25 - CONCLUSION: Right chest tube with increasing subcutaneous emphysema and trace pneumothorax. Torin Dennison MD FACR Chest X-Ray 12/07/17 0000 Signed Impressions: Service Date/Time: Thursday, December 07, 2017 21:21 - CONCLUSION: 1. Right- sided chest tube in place with no visualized pneumothorax. There is been interval decrease in subcutaneous emphysema over the right lateral chest wall. 2. Stable blunting of left costophrenic angle with hazy opacity remaining at the left lung base. Liang Jimenez MD Chest X-Ray 12/07/17 0000 Signed Impressions: Service Date/Time: Thursday, December 07, 2017 08:57 - CONCLUSION: 1. Right chest tube remains present and there is a potential small right apical pneumothorax present. Right chest wall subcutaneous emphysema is stable. 2. Stable left basilar opacity with blunting of the left costophrenic sulcus. Abdiel Kwon MD PHYSICAL EXAMINATION: GENERAL: Sedated. HEENT: No icterus. EOMI. moist mucosa. NECK: No swelling or adenopathy. LUNGS: Decreased breath sounds. HEART: Irregular S1 and S2. No murmurs, rubs or gallops. ABDOMEN: Bowel sounds present, obese, soft. Non tender. EXTREMITIES: 3+ diffuse edema seen. Cyanosis at the tips of the toes. The feet are warm. SKIN: No diffuse rash. NEUROLOGIC: Nonfocal. PSYCHIATRIC: Calm and cooperative. IMPRESSION: 1. Sepsis. 2. Pneumonia - Pseudomonas MDR. Latest sputum culture - Pseudomonas. Could be colonization. However with his seriously ill clinical condition he may have ongoing pneumonia. 3. Acute respiratory failure. Vent dependent. Extubated previously and appears to have aspirated. 4. Leukocytosis. White blood cell count improving. 5. Nette glabrata UTI. Persistent despite management with Diflucan. Repeat urine culture pending Last urine culture on 12/08 had Nette glabrata. 6. Right-sided pneumothorax. Subcutaneous emphysema. 7. History of chronic obstructive pulmonary disease and recent chronic obstructive pulmonary disease exacerbation. 8. Renal failure. Receiving hemodialysis. 9. Elevated liver function tests. LFT is decreasing. RECOMMENDATIONS: 1. Continue Micafungin. Patient has been on broad-spectrum antibiotics and has potential for systemic fungal infection. 2. Follow repeat the urine culture. 3. Continue Zerbaxa for pneumonia. 4. Continue Levaquin. 5. Continue metronidazole. 6. Monitor white blood cell count. 7. Monitor clinical status. Tom Long MD Dec 15, 2017 15:08
[2017-12-15] MEDS: AMIODARONE 200 MG TAB PO SCH ×2 (15:38→21:01)
[2017-12-15] MEDS: LEVOFLOXACIN 250 MG PREMIX INJ 50 ML IV SCH (15:38)
--- NOTE | 2017-12-15 17:13 | OTSOAPIP ---
RECEIVED OCCUPATIONAL THERAPY ORDERS FROM DR. GIBSON. ATTEMPTED TO SEE PATIENT, HOWEVER IS CURRENTLY RECEIVING DIALYSIS. WILL FOLLOW UP AND REATTEMPT TOMORROW. INTERDISCIPLINARY COMMUNICATION: REVIEWED ELECTRONIC MEDICAL RECORD Therapist: Anne Marie Garber OTR/[place] Signature on file
[2017-12-15] MEDS: ARGATROBAN INJ 250 MG in SODIUM CHLOR 0.9% 250 ML INJ 250 ML IV PRN (18:39)
[2017-12-15] MEDS ORDERED: MORPHINE SULFATE 2 MG/ML SYRINGE IV PUSH PRN (19:45)
--- NOTE | 2017-12-15 22:02 | PD.ONC.PN ---
Subjective Subjective Remarks remains critically ill intubated no bleeding and sister bedside Objective Data Date Time Temp Pulse Resp B/P (MAP) Pulse Ox O2 Delivery O2 Flow Rate FiO2 12/15/17 20:29 98 35 12/15/17 18:00 97 12/15/17 16:00 106 12/15/17 16:00 99.1 106 34 101/54 (70) 93 12/15/17 16:00 35 12/15/17 15:16 94 35 12/15/17 14:00 104 12/15/17 12:00 98.5 97 36 116/56 (76) 95 12/15/17 12:00 97 12/15/17 12:00 35 12/15/17 11:11 97 35 12/15/17 10:00 106 12/15/17 08:00 98.9 104 33 109/55 (73) 97 12/15/17 08:00 35 12/15/17 08:00 104 12/15/17 07:35 94 35 12/15/17 07:30 88 103/53 12/15/17 07:30 88 103/53 12/15/17 06:00 93 12/15/17 04:15 99 35 12/15/17 04:00 97.9 99 20 103/55 (71) 99 12/15/17 04:00 85 12/15/17 04:00 35 12/15/17 03:45 86 20 90/54 (66) 99 12/15/17 03:30 89 20 104/53 (70) 99 12/15/17 03:15 86 20 95/52 (66) 100 12/15/17 03:00 94 20 96/54 (68) 99 12/15/17 02:45 88 20 110/55 (73) 98 12/15/17 02:30 87 20 99/52 (68) 99 12/15/17 02:15 94 20 102/55 (71) 99 12/15/17 02:00 84 12/15/17 02:00 87 20 106/55 (72) 99 12/15/17 01:45 94 20 102/54 (70) 99 12/15/17 01:30 93 20 102/55 (71) 99 12/15/17 01:18 100 35 12/15/17 01:15 86 20 96/55 (69) 99 12/15/17 01:00 90 101/53 12/15/17 01:00 84 20 104/55 (71) 100 12/15/17 00:45 90 20 101/53 (69) 100 12/15/17 00:30 91 20 94/51 (65) 100 12/15/17 00:15 90 20 105/55 (72) 100 12/15/17 00:00 98.0 95 20 102/54 (70) 100 12/15/17 00:00 95 12/15/17 00:00 35 12/15/17 00:00 95 102/54 12/14/17 23:52 90 98/55 12/14/17 23:45 87 20 98/55 (69) 99 12/14/17 23:30 91 20 102/59 (73) 99 12/14/17 23:15 90 21 94/52 (66) 98 12/14/17 23:00 87 20 95/55 (68) 98 12/14/17 22:50 98 35 12/14/17 22:45 92 20 100/56 (71) 98 12/14/17 22:30 81 20 95/50 (65) 99 12/14/17 22:15 86 20 113/58 (76) 98 12/14/17 22:00 92 12/14/17 22:00 91 20 107/59 (75) 97 12/15/17 12/15/17 12/15/17 07:00 15:00 23:00 Intake Total 1066 ml 300 ml 593 ml Output Total 0 ml 3000 ml 15 ml Balance 1066 ml -2700 ml 578 ml Result Diagram: 12/15/17 0445 12/15/17 1515 Laboratory Results Laboratory Tests Test 12/15/17 04:45 12/15/17 15:15 12/15/17 20:45 White Blood Count 13.3 TH/MM3 Red Blood Count 3.49 MIL/MM3 Hemoglobin 9.8 GM/DL Hematocrit 30.2 % Mean Corpuscular Volume 86.4 FL Mean Corpuscular Hemoglobin 28.1 PG Mean Corpuscular Hemoglobin Concent 32.6 % Red Cell Distribution Width 17.6 % Platelet Count 49 TH/MM3 Mean Platelet Volume 9.4 FL Neutrophils (%) (Auto) 79.1 % Lymphocytes (%) (Auto) 15.0 % Monocytes (%) (Auto) 5.7 % Eosinophils (%) (Auto) 0.1 % Basophils (%) (Auto) 0.1 % Neutrophils # (Auto) 10.5 TH/MM3 Lymphocytes # (Auto) 2.0 TH/MM3 Monocytes # (Auto) 0.8 TH/MM3 Eosinophils # (Auto) 0.0 TH/MM3 Basophils # (Auto) 0.0 TH/MM3 CBC Comment AUTO DIFF Differential Total Cells Counted 100 Neutrophils % (Manual) 80 % Band Neutrophils % 6 % Lymphocytes % 11 % Monocytes % 3 % Neutrophils # (Manual) 11.4 TH/MM3 Nucleated Red Blood Cells 1 /100 WBC Differential Comment FINAL DIFF MANUAL Platelet Estimate LOW Platelet Morphology Comment NORMAL Polychromasia 2.9 % Basophilic Stippling MOD [place] Cells 1+ Fibrinogen 353 mg/dL Blood Urea Nitrogen 50 MG/DL Creatinine 2.10 MG/DL Random Glucose 168 MG/DL Total Protein 5.4 GM/DL Albumin 3.3 GM/DL Calcium Level 7.8 MG/DL Magnesium Level 1.8 MG/DL Alkaline Phosphatase 449 U/L Aspartate Amino Transf (AST/SGOT) 42 U/L Alanine Aminotransferase (ALT/SGPT) 34 U/L Total Bilirubin 1.0 MG/DL Sodium Level 142 MEQ/L Potassium Level 2.7 MEQ/L 3.9 MEQ/L Chloride Level 104 MEQ/L Carbon Dioxide Level 29.3 MEQ/L Anion Gap 9 MEQ/L Estimat Glomerular Filtration Rate 31 ML/MIN Activated Partial Thromboplast Time 27.0 SEC 46.0 SEC Culture Results Microbiology Date/Time Source Procedure Growth Status 12/14/17 05:00 Urine Catheterized Urine Urine Culture - Preliminary Yeast-Id To Follow Resulted Administered Medications Medications (Trade) Dose Ordered Sig/Yani Route PRN Reason Start Time Stop Time Status Last Admin Dose Admin Sodium Chloride (NS Flush) 2 ml UNSCH PRN IV FLUSH FLUSH AFTER USING IV ACCESS 11/14/17 15:45 11/17/17 14:05 Sodium Chloride (NS Flush) 2 ml BID IV FLUSH 11/14/17 21:00 12/15/17 21:01 Ondansetron HCl (Zofran Inj) 4 mg Q6H PRN IV PUSH NAUSEA OR VOMITING 11/14/17 15:45 11/18/17 16:03 Miscellaneous Information 1 Q361D XX 11/14/17 15:45 11/14/17 15:45 Chlorhexidine Gluconate (Chlorhexidine 2% Cloth) Taper DAILY@04 TOP 11/15/17 04:00 11/11/18 03:59 12/15/17 03:40 Senna/Docusate Sodium (Ricarda-Colace) 1 tab BID PO 11/14/17 21:00 12/15/17 21:01 Apixaban (Eliquis) 5 mg BID PO 11/14/17 21:00 Future Hold 11/27/17 20:17 Atorvastatin Calcium (Lipitor) 80 mg HS PO 11/14/17 21:00 Future Hold 12/05/17 19:49 Digoxin (Lanoxin) 0.125 mg DAILY PO 11/15/17 09:00 Future Hold 11/17/17 08:24 Diltiazem HCl (Cardizem) 60 mg QID PO 11/14/17 18:00 Future Hold 12/06/17 08:44 Hydralazine HCl (Apresoline Inj) 20 mg Q4H PRN IV PUSH SYS BP GREATER THAN 160 MMHG 11/17/17 12:00 11/22/17 07:38 Budesonide/ Formoterol Fumarate (Symbicort 160-4.5 Mcg Inh) 2 puff Q12HR INH 11/18/17 21:00 12/15/17 21:01 Chlorhexidine Gluconate (Peridex 0.12% Liq) 15 ml BID@08,20 MT 11/19/17 08:00 12/15/17 20:00 Albuterol/ Ipratropium (Duoneb Neb) 1 ampule Q2HR NEB PRN INH WHEEZING 11/18/17 22:30 12/13/17 08:12 Famotidine (Pepcid) 10 mg BID PO 11/22/17 21:00 12/15/17 21:01 Insulin Aspart (NovoLOG SUPPLEMENTAL SCALE) 1 Q4HR SQ 11/26/17 16:00 12/15/17 20:00 Dextrose (D50w (Vial) Inj) 25 ml UNSCH PRN IV HYPOGLYCEMIA-SEE COMMENTS 11/26/17 15:30 12/04/17 01:18 Fentanyl Citrate 250 ml @ 5 mls/hr TITRATE PRN IV SEDATION 11/27/17 13:45 12/03/17 08:58 Sodium Chloride 1,000 ml @ 0 mls/hr Q0M PRN OTHER For Prime & Rinse Back 12/02/17 09:30 12/08/17 16:50 Mannitol (Mannitol Inj) 12.5 gm UNSCH PRN IV WITH DIALYSIS 12/02/17 09:30 12/15/17 12:43 Albumin Human 100 ml @ 60 mls/hr UNSCH PRN IV WITH DIALYSIS 12/02/17 09:30 12/15/17 12:44 Sodium Chloride (NS Flush) 5 ml UNSCH PRN IV FLUSH WITH DIALYSIS 12/02/17 09:30 12/08/17 16:51 Heparin Sodium (Porcine) (Heparin Inj) UNSCH PRN .XX WITH DIALYSIS 12/02/17 09:30 12/08/17 16:50 Gentamicin Sulfate (Gentamicin Inj) 20 mg UNSCH PRN OTHER WITH DIALYSIS 12/02/17 09:30 12/15/17 12:43 Epoetin Kvng (Epogen Inj) 4,000 units UNSCH PRN IV PUSH WITH DIALYSIS 12/02/17 09:30 12/15/17 12:44 Micafungin Sodium 150 mg/Sodium Chloride 100 ml @ 100 mls/hr Q24H IV 12/06/17 12:00 12/15/17 14:53 Hydrocortisone Sodium Succinate (SoluCORTEF INJ) 50 mg Q12H IV PUSH 12/07/17 23:00 12/15/17 11:01 Insulin Detemir (Levemir Inj) 5 units Q12HR SQ 12/07/17 12:00 12/15/17 21:00 Lanthanum Carbonate (Fosrenol Chew) 500 mg TID CHEW 12/07/17 18:00 12/15/17 15:53 Calcitriol (Rocaltrol) 0.5 mcg DAILY PO 12/08/17 09:00 12/14/17 07:27 Ceftolozane/ Tazobactam 150 mg/ Sodium Chloride 100 ml @ 100 mls/hr Q8H IV 12/08/17 23:00 12/15/17 14:53 Levofloxacin/ Dextrose 50 ml @ 50 mls/hr Q24H IV 12/08/17 16:00 12/15/17 15:38 Norepinephrine Bitartrate 250 ml @ 7.5 mls/hr TITRATE PRN IV Blood pressure management 12/08/17 21:00 12/10/17 03:00 Metronidazole (Flagyl) 500 mg Q6HR PO 12/10/17 13:30 12/15/17 15:46 Phenylephrine HCl 160 mg/Dextrose 500 ml @ 7.5 mls/hr TITRATE PRN IV Blood pressure management 12/10/17 19:30 12/14/17 20:29 Argatroban 250 mg/ Sodium Chloride 252.5 ml @ 3.03 mls/hr TITRATE PRN IV aPTT < 50 12/12/17 18:00 12/15/17 18:39 Amiodarone HCl 450 mg/Sodium Chloride 250 ml @ 33.33 mls/ hr Q7H31M PRN IV Per Protocol 12/13/17 12:30 12/14/17 23:52 Amiodarone HCl (Cordarone) 200 mg Q12HR PO 12/15/17 14:00 12/15/17 21:01 Objective Remarks GENERAL: acutely ill SKIN: Warm and dry. NECK: Supple, trachea midline. No JVD or lymphadenopathy. LYMPHATIC: No adenopathy. CARDIOVASCULAR: Regular rate and rhythm without murmurs. RESPIRATORY: CTAB GASTROINTESTINAL: Abdomen soft, dowel sounds decreased EXTREMITIES: edematous Assessment/Plan Problem List: (1) Thrombocytopenia ICD Codes: D69.6 - Thrombocytopenia, unspecified Plan: --high probability of underlying heparin-induced thrombocytopenia. --HIT antibody positive, [place] pending. --on Argatroban drip. --transfuse for platelet count less than 10 (2) Normocytic anemia ICD Codes: D64.9 - Anemia, unspecified Plan: --likely due to sepsis and consumptive phenomena. --no indication of vitamin deficiency --yelena negative. --stool occult blood pending. --LDH and haptoglobin both elevated, no indication of hemolysis. Transfuse to keep hemoglobin greater than 7. (3) Sepsis ICD Codes: A41.9 - Sepsis, unspecified organism Plan: --on abx --Sputum cultures positive for Klebsiella pneumoniae and Pseudomonas. --Urine was positive for Nette glabrata. Assessment 77y/o male with sepsis. Hematology consulted for thrombocytopenia, HIT positive. history of COPD, CHF, atrial fibrillation and diabetes. hypertension, obstructive sleep apnea with BiPAP, right carpal tunnel syndrome, depression, anxiety, history of MRSA pneumonia, iron deficiency anemia, hyperlipidemia, gastroparesis. Plan 1. 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 Respiratory failure/sepsis Oscar Quintana MD Dec 15, 2017 22:02
[2017-12-16] VITALS (61 sets, daily range): BP systolic 75–176; BP diastolic 49–89; PULSE 83–109; RESP 12–40; TEMP 99.6–102.2; O2SAT 85–100
[2017-12-16] MEDS: CHLORHEXIDINE GLUCONATE 2 % 1 PACK (2 CLOTHS) TOP SCH (04:00)
[2017-12-16] MEDS: INSULIN ASPART SUPPLEMENTAL SCALE SQ SCH ×5 (04:00→20:00)
[2017-12-16] MEDS: metroNIDAZOLE 500 MG TAB PO SCH ×3 (04:40→18:04)
[2017-12-16] MEDS: ACETAMINOPHEN 325 MG TAB PO PRN ×2 (04:41→19:06)
--- NOTE | 2017-12-16 05:41 | RADRPT ---
EXAM DATE/TIME: 12/16/2017 04:43 [facility] COMPARISON: CHEST SINGLE AP, December 14, 2017, 11:45. INDICATIONS : Shortness of breath, possible pulmonary disease. MEDICAL HISTORY : Chronic obstructive pulmonary disease. Cardiovascular disease. Hypertension. CHF Diabetes SURGICAL HISTORY : Tracheostomy ENCOUNTER: Subsequent ACUITY: 1 month PAIN SCORE: Non-responsive. LOCATION: Bilateral chest FINDINGS: Mild, left greater than right basilar consolidation again noted, not significantly changed. Right aurelio st tube remains in place. There is a small pneumothorax, unchanged. Heart size stable, within normal limits. Tracheostomy tube and bilateral internal jugular central venous catheters with tips in the superior v ramy cava again noted. CONCLUSION: No significant change bibasilar atelectasis and small right pneumothorax. Right chest tube remains in place. Abdiel Vidales MD on December 16, 2017 at 5:39 Board Certified Radiologist. This report was verified electronically.
[2017-12-16 05:46] LABS: HEMATOCRIT 32.6 % (39.0-51.0); HEMOGLOBIN 10.2 GM/DL (13.0-17.0); MEAN CELL VOLUME 89.6 FL (80.0-100.0); MEAN CORPUSCULAR HEMOGLOBIN 28.1 PG (27.0-34.0); MEAN CORPUSCULAR HGB CONC 31.3 % (32.0-36.0); MEAN PLATELET VOLUME 9.6 FL (7.0-11.0); PLATELET COUNT 64 TH/MM3 (150-450); RED BLOOD COUNT 3.64 MIL/MM3 (4.50-5.90); RED CELL DISTRIBUTION WIDTH 18.4 % (11.6-17.2)
[2017-12-16 05:56] LABS: ALBUMIN 3.7 GM/DL (3.4-5.0); ALT (GPT) 32 U/L (12-78); AST (GOT) 27 U/L (15-37); BICARBONATE 29.2 MEQ/L (21.0-32.0); BLOOD UREA NITROGEN 54 MG/DL (7-18); CALCIUM 7.5 MG/DL (8.5-10.1); CHLORIDE 105 MEQ/L (98-107); CREATININE 2.02 MG/DL (0.60-1.30); GLOMERULAR FILTRATION RATE 32 ML/MIN (>89); GLUCOSE,RANDOM 216 MG/DL (74-106); SODIUM (NA) 143 MEQ/L (136-145)
[2017-12-16 05:58] LABS: ALKALINE PHOSPHATASE 435 U/L (45-117); TOTAL BILIRUBIN ADULT 0.8 MG/DL (0.2-1.0); TOTAL PROTEIN 5.6 GM/DL (6.4-8.2)
[2017-12-16] MEDS: PHENYLEPHRINE INJ 160 MG in DEXTROSE 5% IN WATE 500 ML INJ 484 ML IV PRN ×4 (06:35→18:16)
[2017-12-16 07:59] LABS: BANDS 7 % (0-6); CORRECTED NUCLEATED RBC 1 /100 WBC (0-0); LYMPHOCYTES 4 % (9-44); MONOCYTES 4 % (0-8); NUCLEATED RED BLOOD CELL 1 (0-0); POLYS (SEG NEUTROPHILS) 85 % (16-70)
[2017-12-16 08:00] LABS: OVALOCYTES 1+ (NORMAL)
[2017-12-16 08:01] LABS: POLYCHROMASIA 2.3 % (0.0-1.9)
[2017-12-16] MEDS: CEFTOLOZANE-TAZOBACTAM INJ 150 MG in SODIUM CHLORIDE 0.9% INJ 100 ML IV SCH ×3 (08:36→23:41)
[2017-12-16] MEDS: CHLORHEXIDINE 0.12% (ORAL KIT) 15 ML CUP MT SCH ×2 (08:37→20:28)
[2017-12-16] MEDS: LANTHANUM CARBONATE 500 MG CHEWABLE TABLET CHEW SCH ×3 (08:40→18:04)
[2017-12-16] MEDS: CALCITRIOL 0.25 MCG CAP PO SCH (08:40)
[2017-12-16] MEDS: DOCUSATE SODIUM 50 MG/SENNA 8.6 MG TAB PO SCH ×2 (08:40→20:28)
[2017-12-16] MEDS: AMIODARONE 200 MG TAB PO SCH ×2 (08:40→20:28)
[2017-12-16] MEDS: BUDESONIDE-FORMOTEROL 160/4.5 MCG INHALER INH SCH ×2 (08:41→23:41)
[2017-12-16] MEDS: FAMOTIDINE 20 MG TAB PO SCH ×2 (08:41→20:28)
[2017-12-16] MEDS: SODIUM CHLORIDE 0.9% FLUSH 10 ML FLUSH IV FLUSH SCH ×2 (08:41→20:27)
[2017-12-16] MEDS: INSULIN DETEMIR 100 UNITS/ML VIAL SQ SCH ×2 (08:41→20:28)
--- NOTE | 2017-12-16 09:49 | HHI.NPPN ---
Subjective Renal Failure: Acute History of Present Illness This is a 77-year-old male with past medical history of ischemic heart disease, atrial fibrillation, congestive heart failure, possibly diastolic dysfunction, diabetes mellitus, chronic obstructive pulmonary disease, was admitted on 11/14 with respiratory distress. Nephrology was called to see the patient because of elevated BUN and creatinine. The patient has creatinine of 1.1 on admission, which increased after 2 or 3 to 1.3-1.5 and for the last 2 days, it has been going up and now it is 2.8. The patient was initially diagnosed with pneumonia and was started on antibiotics and then later on, patient developed respiratory failure and was intubated. He was also found to have asystole on 11/27 for 3 minutes and CPR was done with ACLS protocol, and it was shown that he has large right-sided pneumothorax. The blood pressure has been stable and there are no significant hypotensive episodes documented. Most of the history was taken from he patient' s chart. Additional Remarks Remains on ventilator with matilda- synephrine infusing. Pressor has needed to be increased secondary to hypotension. (Adeola Velez) Review of Systems General General Remarks Unable to do ROS as patient is intubated (Adeola Velez) Objective Data Data Vital Signs Date Time Temp Pulse Resp B/P (MAP) Pulse Ox O2 Delivery O2 Flow Rate FiO2 12/16/17 09:30 100 20 97/56 (70) 100 12/16/17 09:20 100 20 83/52 (62) 100 12/16/17 09:10 100 23 107/59 (75) 90 12/16/17 09:00 99 20 104/56 (72) 100 12/16/17 08:53 100 12 93/53 (66) 12/16/17 08:40 97 19 120/60 (80) 99 12/16/17 08:30 96 20 117/56 (76) 99 12/16/17 08:20 96 20 111/59 (76) 99 12/16/17 08:10 96 20 107/58 (74) 99 12/16/17 08:00 35 12/16/17 08:00 101.2 95 20 116/61 (79) 99 12/16/17 07:44 99 35 12/16/17 06:35 94 95/46 12/16/17 06:00 96 12/16/17 05:48 18 12/16/17 04:38 95 35 12/16/17 04:00 83 12/16/17 04:00 99.6 83 31 90/49 (63) 95 12/16/17 04:00 35 12/16/17 02:00 85 12/16/17 01:11 95 35 12/16/17 00:00 90 12/16/17 00:00 35 12/16/17 00:00 99.9 90 39 121/56 (77) 95 12/15/17 22:00 88 12/15/17 20:29 98 35 12/15/17 20:00 35 12/15/17 20:00 101 12/15/17 20:00 100.9 101 40 119/58 (78) 95 12/15/17 18:00 97 12/15/17 16:00 106 12/15/17 16:00 99.1 106 34 101/54 (70) 93 12/15/17 16:00 35 12/15/17 15:16 94 35 12/15/17 14:00 104 12/15/17 12:00 98.5 97 36 116/56 (76) 95 12/15/17 12:00 97 12/15/17 12:00 35 12/15/17 11:11 97 35 12/15/17 10:00 106 (Adeola Velez) -: 12/16/17 0455 12/16/17 0455 Tubes & Lines: Vas-Cath, Haynes (Adeola Velez) Physical Exam General Appearance: Obese (Adeola Velez) Eyes Eye Exam: Pupils Equal (Adeola Velez) Pulmonary Resp Exam: Breath Sounds Equal Resp Remarks SQ emphysema present Intubated CT right chest wall (Adeola Velez) Cardiology CV Exam: Regular (Adeola Velez) Gastrointestinal/Abdomen GI Exam: Soft, Non-Tender, Distended (Adeola Velez) Genitourinary Exam: Flank Non-Tender (Adeola Velez) Integumentary Skin Exam: Clear, Warm (Adeola Velez) Extremeties Extremities Exam: Moderate Edema (Adeola Velez) Neurologic Neuro Exam: Awake (Adeola Velez) Assessment/Plan Assessment Summary: DAVID/Acute Renal Failure Problem List: (1) DAVID (acute kidney injury) ICD Codes: N17.9 - Acute kidney failure, unspecified Plan: Acute kidney injury most likely related to prerenal vs acute tubular necrosis, either from the infection or related to his cardiac status and cardiac arrest. Creatinine is stable but minimal urinary output Continues on matilda matilda- synephrine for blood pressure support Edema is improving Plan Renal dose antibiotics Continue for follow UOP and BMP Avoid nephrotoxins as possible. HD yesterday UF of 3 liters tolerated well however today blood pressure is low. Hemodialysis is planned for tomorrow (2) Respiratory failure ICD Codes: J96.90 - Respiratory failure, unspecified, unspecified whether with hypoxia or hypercapnia Plan: Intubated weaning per senior receptionist. (3) Thrombocytopenia ICD Codes: D69.6 - Thrombocytopenia, unspecified Plan: Hematology has been consulted. 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 (Adeola Velez) Problem List: (1) DAVID (acute kidney injury) ICD Codes: N17.9 - Acute kidney failure, unspecified Plan: Acute kidney injury most likely related to prerenal vs acute tubular necrosis, either from the infection or related to his cardiac status and cardiac arrest. Creatinine is stable but minimal urinary output Continues on matilda matilda- synephrine for blood pressure support Edema is improving Plan Renal dose antibiotics Continue for follow UOP and BMP Avoid nephrotoxins as possible. HD yesterday UF of 3 liters tolerated well however today blood pressure is low. Hemodialysis is planned for tomorrow. Patient seen and examined, agree with above. HD will be in AM, remove fluid as tolerated. (2) Respiratory failure ICD Codes: J96.90 - Respiratory failure, unspecified, unspecified whether with hypoxia or hypercapnia Plan: Intubated weaning per senior receptionist. (3) Thrombocytopenia ICD Codes: D69.6 - Thrombocytopenia, unspecified Plan: Hematology has been consulted. 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 (America Vela MD) Adeola Velez Dec 16, 2017 09:49 America Vela MD Dec 17, 2017 17:56
--- NOTE | 2017-12-16 11:22 | HHI.CCPN ---
Subjective Remarks/Hospital Course This is a 77-year-old male with a medical history significant for COPD, CHF, A. fib, diabetes, that presented to emergency department from [facility] for evaluation of worsening shortness of breath over the last 3 days. The patient was been given Solu-Medrol 125 mg and 2 albuterol treatments enroute to ED. Upon presentation to the ED the patient was on a nonrebreather. He was tachypneic and tachycardic. Patient's medical history significant for MRSA pneumonia previously admitted on 10/27/16 for approximately 12 days at [facility]. The patient is normally on 2.5 L/m nasal cannula O2 home dependency, and he lives with ( normally) a PCO2 in the 80s according to his . Patient was then discharged to [facility], and then transferred to [facility] for rehabilitation. He has been on an unknown antibiotic per the family and steroids for the last 3 days. Laboratory and imaging studies were performed with noted elevation in CO2 The patient was given empiric antibiotics in the ED and placed on BiPAP. Critical care medicine was consulted. Subjective: 11/15: Patient maintained on BiPAP throughout the night O2 saturations 97-98% on FiO2 of 0.40. Hemodynamically stable. Attempts made to wean patient to nasal cannula this a.m. unsuccessful, patient's O2 saturation in the 70s, patient placed back on BiPAP. Chest x-ray pending WBC count significantly diminished, leukocytosis resolved. Patient extremely anxious, Precedex infusion initiated. 11/16: Late entry note. Patient seen 10 AM. Overnight the patient converted to A. fib RVR, despite being on Cardizem 4 times a day and metoprolol twice a day- home medications, the patient received IV Cardizem followed by amiodarone infusion. Per report the patient became hypotensive, Cardizem discontinued. Amiodarone continued. Early this a.m. patient was resting comfortably A. fib rate controlled rate. The patient suddenly converted to A. fib RVR heart rate 150s-160s, acute hypoxemic respiratory failure, requiring intubation. The patient was intubated uneventfully and continues on amiodarone at 0.5 mg/hour, rate now controlled in conjunction with sedation. Cardiology consulted, his through operator is Dr. Reyes X-ray revealed lung consolidation improved, chest x- ray clear. Plan for CPAP trials in a.m.. 11/17: No acute events overnight. Patient had 1 short 8 beat run of V. tach last evening was self resolution, electrolytes within normal limits. The patient continues on amiodarone 0.5 mg/hr. CPAP trials initiated this a.m.. Tube feeds initiated at trickle feeds. Patient converted to sinus rhythm at 2 AM. 11/18 Patient remains sedated and intubated. Afebrile. 11/19 Patient was extubated yesterday however last night he was noted to choke on water provided by the family. Stat ABG demonstrated acute hypercapnic respiratory failure and was emergently intubated. Currently sedated and intubated. 11/20 Patient remains intubated on Fentanyl drip however he si awake and alert. Afebrile. 11/21 Patient is awake and alert placed on CPAP with PS:15, PEEP:5. Afebrile. 11/22 Patient remains intubated , did not tolerate CPAP trials yesterday as he became tachycardic and hypertensive. On no sedation awake and alert. 11/23 No events overnight, off sedation. 11/24: Resting comfortably on mechanical ventilation currently. Daily C Pap trials ongoing. 11/25: Sedated with Precedex, orally intubated on mechanical ventilation. Daily C Pap trials 11/26: Sedated with Precedex, orally intubated on mechanical ventilation. Got tachypneic with CPAP trial today hence placed back on PRVC. Spiked a fever, garcia cultures ordered. Went into A. fib with RVR subsequently for which being initiated on amiodarone bolus followed by drip and Lopressor 5 mg IV every 6 as needed for 11/27: This morning patient developed bradycardia followed by asystole for which she had 3 minutes CPR with ACLS protocol with return of spontaneous circulation. Post code chest x-ray revealed moderate to large right pneumothorax for which a right pigtail catheter was placed by me however despite airleak patient continue have moderate to large pneumothorax hence a second right sided 28 [place] chest tube was placed to -40 cm water pressure. Air leaks 1+ in both pigtail catheter and chest tube. Patient remains in a flutter currently. Dr. reyes evaluated patient as well following cardiac arrest. 11/28: Sedated, arousable, orally intubated on mechanical ventilation. Worsening renal function noted. MDR Pseudomonas in sputum. Right sided chest tube/ pigtail catheter with 1+ air leak in both. Subcutaneous emphysema noted over right side of face neck and right upper extremity. On 50% FiO2, PEEP +5. Poor urine output for which 500 cc and is bolus given earlier. Treated for hyperkalemia with Kayexalate PO, glucose insulin, calcium IV. 4/2: Remains sedated, arousable, orally intubated on mechanical ventilation. A. fib with RVR this morning for which she was loaded with amiodarone and initiated on amiodarone drip. Spiking fever 103.5. ID adjusting antibiotics. Stool for C. difficile ordered as he had some diarrhea today though received Kayexalate yesterday for hyperkalemia. Pigtail catheter on the right side appeared to be dislodged hence this was removed. 28 [place] chest tube in right pleural cavity repositioned. 11/30: Late entry note , patient seen at 12 noon. Creatinine continues to trend upward.Sedated but easily arousable. 12/01: Patient lightly sedated, following commands this a.m.. Creatinine noted increased, possible dialysis consideration for tomorrow. Patient to be diuresed today. CPAP trial initiated failed after 5 minutes, repeat this afternoon. 12/02: Patient placed on Lasix infusion throughout the night . No renal improvement,creatinine worsened today , plan for Vas-Cath placement and IHD today. This extensive discussion with patient and plans for tracheostomy and PEG tube placement secondary to failure to wean. 12/03: Late entry note, patient seen at 11 am. Patient scheduled for PEG placement today by Dr. Iglesias. Patient continues to fail CPAP trials. Plan for tracheostomy in the near future 12/04: Late entry note . Patient seen earlier this am. Overnight the patient became hypoglycemic, secondary to n.p.o. status, post PEG placement. D10 was initiated at 30 cc/hr. Tube feeds reinitiated Jevity 1.5, 24 hours post PEG tube placed, D10 discontinued. Patient remains on fentanyl at 100 mics/hour, lightly sedated. Patient denies pain answering by nodding head to yes and no questions. Tracheostomy planned for Wednesday12/06/[address] Calderon. 12/05: Remains intubated sedated with 50 mcg of fentanyl. On attempted CPAP trial patient remained dyspneic. Significant neuromuscular weakness persist. Chest x-ray shows small right apical pneumothorax. Tentatively plan for tracheostomy tomorrow. Dr. Calderon has already been consulted 12/06 Patient remains intubated for possible trach today. On Levophed 12 mics. Afebrile. 12/07 No events overnight. Trach was placed on hold yesterday as patient was on Levophed. He is down to 5 mics today. Afebrile. 12/08 Patient remains intubated on no sedation. CT brain this morning showed no acute process. Off Levophed. 12/09 Patient was placed back on Levophed 6 mics. Afebrile. Remains intubated on no sedation. 12/10 Patient remains intubated. On Neosyn 40 mics went into Afib with RVR HR 128 12/11 Patient remains intubated. Now on Neosyn 200 mics ( MAP 86mmHg). s/p HD yesterday with 1.5L removed. T:99.7 12/12 Patient remains sedated and intubated. Neosyn down 100 mics. For transfusion 2u PRBC and 1u PLT ( Hgb 6.7 and PLT 18 this morning) s/p HD with 3L removed yesterday. WBC is trending down. 12/13: More critically ill today, Bertin-Synephrine had to be increased to 150 mcg/ min, remains borderline hypotensive despite Bertin-Synephrine, currently in A. fib with RVR. Digoxin additional 0.25 mg IV push 1, start amiodarone infusion 12/14: Patient remains patient remains intubated currently on 50 mcg/min of Bertin- Synephrine. Remains on amiodarone infusion with heart rate better controlled 110-120. Plan for perc trach at bedside today 12/15: Remains on Bertin-Synephrine 50 mcg/min. On attempted CPAP patient had multiple PVCs and PACs. Potassium 2.7 getting replaced. Argatroban will be restarted 12/16: Patient is more lethargic, profoundly hypotensive Bertin-Synephrine increase to 300 mcg/min. Possibly septic shock. Currently on micafungin backside Levaquin and Flagyl. Add gram-positive coverage with vancomycin send blood cultures. Also will also change central line today-cleared by Dr. Vela to use subclavian access Objective Vital Signs Date Time Temp Pulse Resp B/P (MAP) Pulse Ox O2 Delivery O2 Flow Rate FiO2 12/16/17 11:00 102 12/16/17 10:48 100 35 12/16/17 09:30 20 97/56 (70) 12/16/17 08:00 101.2 Intake and Output 12/16/17 12/16/17 12/17/17 08:00 16:00 00:00 Intake Total 600 ml Output Total 10 ml Balance 590 ml Result Diagram: 12/16/17 0455 12/16/17 0455 Other Results Laboratory Tests Test 12/16/17 08:50 Blood Gas Puncture Site RT RADIAL Blood Gas Patient Temperature 98.6 Blood Gas HCO3 24 mmol/L (22-26) Blood Gas Base Excess -0.4 mmol/L (-2-2) Blood Gas Oxygen Saturation 95 % (90-100) Arterial Blood pH 7.38 (7.380-7.420) Arterial Blood Partial Pressure CO2 42 mmHg (38-42) Arterial Blood Partial Pressure O2 108 mmHg (61-120) Arterial Blood Oxygen Content 14.4 Vol % (12.0-20.0) Arterial Blood Carboxyhemoglobin 1.7 % (0-4) Arterial Blood Methemoglobin 1.4 % (0-2) Blood Gas Hemoglobin 10.6 G/DL (12.0-16.0) Oxygen Delivery Device VENTILATOR Blood Gas Ventilator Setting AC20/600/+5 Blood Gas Inspired Oxygen 35 % Imaging Last Impressions Chest X-Ray 12/11/17 0000 Signed Impressions: Service Date/Time: Monday, December 11, 2017 10:51 - CONCLUSION: Stable chest with moderate subcutaneous emphysema and no pneumothorax. Torin Dennison MD FACR Liver Ultrasound 12/09/17 0000 Signed Impressions: Service Date/Time: November 19:18 - CONCLUSION: 1. Limited suboptimal examination with only a small portion of the liver visualized. 2. The gallbladder and common bile duct could not be visualized. The pancreas is not evaluated. 3. Left pleural effusion. Liang Jimenez MD Head CT 12/08/17 0000 Signed Impressions: Service Date/Time: Friday, December 08, 2017 08:25 - CONCLUSION: Negative for acute process. Torin Dennison MD FACR Catheter Placement X-Ray 12/02/17 0000 Signed Impressions: Service Date/Time: November 10:47 - CONCLUSION: Uncomplicated right internal jugular Vas-Cath placement as above. incidental note is made of subcutaneous emphysema within the chest wall and neck Con Dennison MD Lower Extremity Ultrasound 11/29/17 0000 Signed Impressions: Service Date/Time: Wednesday, November 29, 2017 22:02 - CONCLUSION: Normal examination. Abdiel Mcintyre MD Renal Ultrasound 11/28/17 0000 Signed Impressions: Service Date/Time: Tuesday, November 28, 2017 20:30 - CONCLUSION: Nondiagnostic exam. Rashad Bose MD Objective Remarks GENERAL: Patient is 77 yo intubated lethargic SKIN: Warm and dry. HEAD: Normocephalic. Mild subcutaneous emphysema involving right side of face neck shoulder and arm. EYES: No scleral icterus. No injection or drainage. NECK: Supple, trachea midline. No JVD or lymphadenopathy. New trach without significant bleed CARDIOVASCULAR: S1-S2 irregularly irregular, tachycardic in 110s hypotensive, currently on Bertin-Synephrine at 300 mcg/min RESPIRATORY: On mechanical ventilation, air entry decreased bilaterally, scattered rhonchi bilaterally. R chest tube with 1+ airleak. Subcutaneous emphysema or right chest wall, neck, right face and right upper extremity. GASTROINTESTINAL: Abdomen soft, non-tender, nondistended. MUSCULOSKELETAL: Bilateral peripheral edema +2 Neuro: Patient is more lethargic not following commands slight withdrawal to pain, most likely encephalopathy secondary to new sepsis A/P Problem List: (1) A-fib ICD Code: I48.91 - Unspecified atrial fibrillation (2) CHF (congestive heart failure) ICD Code: I50.9 - Heart failure, unspecified Status: Chronic (3) HTN (hypertension) ICD Code: I10 - Essential (primary) hypertension Status: Chronic (4) ADRIAN (obstructive sleep apnea) ICD Code: G47.33 - Obstructive sleep apnea (adult) (pediatric) Status: Chronic (5) MRSA pneumonia ICD Code: J15.212 - Pneumonia due to Methicillin resistant Staphylococcus aureus Status: Acute (6) Diabetes mellitus type 2, insulin dependent ICD Code: E11.9 - Type 2 diabetes mellitus without complications; Z79.4 - FCI (current) use of insulin Status: Chronic (7) COPD (chronic obstructive pulmonary disease) ICD Code: J44.9 - Chronic obstructive pulmonary disease, unspecified Status: Acute (8) Respiratory distress ICD Code: R06.03 - Acute respiratory distress Status: Acute (9) Leukocytosis ICD Code: D72.829 - Elevated white blood cell count, unspecified Status: Acute (10) Lung consolidation ICD Code: J18.1 - Lobar pneumonia, unspecified organism Status: Acute (11) Anxiety ICD Code: F41.9 - Anxiety disorder, unspecified Status: Chronic (12) Failure to wean from mechanical ventilation ICD Code: Z99.11 - Dependence on respirator [ventilator] status Assessment and Plan Plan by systems: Neurologic: Encephalopathy, metabolic Anxiety Off sedation, monitor neuro status, worsening encephalopathy probably secondary to urosepsis Neuro checks per ICU protocol EEG: Mild- mod encephalopathy. Neuro is following- Dr. Anne. CT brain 12/08 no acute process Respiratory: Acute respiratory failure on mechanical ventilation- extubated and reintubated night of 11/18 after he was noted to choke on water provided by family. COPD exacerbation Pneumonia-MRSA, MDR Pseudomonas Right sided pneumothorax following CPR status post pigtail catheter/chest tube placement 11/27 Obstructive sleep apnea Home O2 dependency Continue with vent support keep sats >90%. s/p Trach 12/14/17 Did not tolerate SBT 12/15 due to PVCs and PACs. Now hemodynamically unstable for CPAP trials Bronchodilators, HC 50mg IV Q12 Pulmonology - Dr Price, Right sided chest tube in place. Continue 28 F right chest tube to -40 cm water pressure with underwater seal. Cardiovascular: Shock most likely septic Cardiac arrest - asystole, status post CPR 11/27 A. fib RVR History of CHF CAD Currently on Bertin-Synephrine 300 mcg/min to keep MAP>65mmHg. IV digoxin 0.25 mg 1 12/13, and scheduled digoxin Continue amiodarone PO Lactic acid:2.2 on 12/07 Hydrocortisone 50mg IV [id number] weaning once hemodynamically more stable Atorvastatin 80 daily on hold for elevated LFT's Cardiology - Dr. Reyes. Echo showed EF 65-70% Renal: DAVID Monitor renal function, electrolytes replacement as needed Nephrology Dr. Ragland. 12/02 Vas-Cath placed for initiation of IHD . FEN/GI: Elevated LFT's GERD Monitor LFT's, US liver on 12/06: non diagnostic study US liver 12/09 limited study Hepatitis profile is negative On tube feeds On Nepro @40cc/hr. Pepcid for GI prophylaxis 12/03 PEG tube placement ID: Pneumonia MRSA, MDR Pseudomonas Leukocytosis Septic shock ID following- Antibiotics per ID (on Micafungin, Zerbaxa, Flagyl, Levaquin). Add vancomycin for gram-positive coverage today 12/16/2017 Repeat sputum culture blood culture and urine culture 12/16 Stool for C. difficile negative on 11/29 and 12/06 Pertinent cultures 12/14 Urine yeast 12/09 BC: NGTD 411 Urine cx: C. 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 Quintana. 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 Vancomycin added for probable worsening septic shock. Replace central line Problem Qualifiers (1) COPD (chronic obstructive pulmonary disease): Qualified Codes: J44.9 - Chronic obstructive pulmonary disease, unspecified (2) Leukocytosis: Qualified Codes: D72.829 - Elevated white blood cell count, unspecified Darwin Meadows MD Dec 16, 2017 11:22
[2017-12-16] MEDS ORDERED: Vancomycin Consult Pharmacy 1 EA OTHER SCH (11:30)
[2017-12-16] MEDS ORDERED: VANCOMYCIN INJ 1,000 MG in SODIUM CHLOR 0.9% 250 ML INJ 250 ML IV ONE (11:30)
[2017-12-16] MEDS ORDERED: TERBUTALINE INJ 1 MG/ML AMP SQ PRN (12:00)
[2017-12-16] MEDS ORDERED: NOREPINEPHRINE INJ 4 MG in SODIUM CHLOR 0.9% 250 ML INJ 246 ML IV PRN (12:00)
[2017-12-16] MEDS: MICAFUNGIN INJ 150 MG in SODIUM CHLORIDE 0.9% INJ 100 ML IV SCH (12:59)
[2017-12-16] MEDS: HYDROCORTISONE SOD SUCCINATE 100 MG VIAL IV PUSH SCH ×2 (12:59→23:41)
[2017-12-16] MEDS ORDERED: VANCOMYCIN INJ 2,000 MG in SODIUM CHLORID 0.9% 500 ML INJ 500 ML IV ONE (13:00)
[2017-12-16] MEDS ORDERED: MIDAZOLAM HCL 5 MG/ML VIAL (1 ML) ONE (15:49)
--- NOTE | 2017-12-16 16:11 | PD.PROCEDR ---
Central Line Procedure REASON FOR PROCEDURE Central venous access PROCEDURE PERFORMED Central line placement: R subclavian central line CONSENT Informed consent for procedure was obtained and time out performed. The risks and benefits of the procedure were discussed to include but limited to bleeding , clot formation, infection, and even . ANESTHESIA Local injection of 1% Lidocaine DESCRIPTION OF THE PROCEDURE The patient was placed in supine, mild Trendelenburg position. The area was exposed and cleansed with ChloraPrep, times two. Large sterile drape was used to cover the patient, with the site exposed, under sterile conditions including cap, face mask, sterile gown, and sterile gloves. On single attempt, the introducer needle was inserted with negative pressure in syringe and venous flash was obtained. The guide wire was then advanced without any restriction and the needle was removed. The dilator was used without any complications. Using Seldinger technique the 20 cm 7f triple lumen catheter was advanced over the guide wire to a depth of 17 centimeters. The guide wire was removed. All ports were aspirated with dark venous blood return and flushed easily with sterile saline. All ports were capped. Antibiotic disc was placed around central line at puncture site. The central line was secured to the skin with two interrupted 2.0 silk sutures. The area was bandaged with sterile see- through central line bandage. Stat Lock was not used as patient is diaphoretic and septic, febrile COMPLICATIONS: No apparent complications ESTIMATED BLOOD LOSS: Less than 1 cc. Darwin Meadows MD Dec 16, 2017 16:11
[2017-12-16] MEDS ORDERED: MIDAZOLAM HCL 2 MG/2 ML VIAL IV PUSH ONE (16:30)
--- NOTE | 2017-12-16 16:52 | HHI.IDPN ---
Note Infectious Disease Note Patient spiked temperature to 101. He also had low blood pressure. The phenylephrine was increased to 300 mcg. It is now down to 220 mcg. Central line has been changed. New cultures obtained. Currently sedated. Remains on the ventilator. The repeat urine culture continues to have Nette glabrata. Repeat sputum culture had multiple resistant Pseudomonas aeruginosa. Urine culture from 12/08 had Nette. Previous urine culture on 11/28 had Nette glabrata. Patient was treated with Diflucan. Chest tube in place on the right due to pneumothorax. 77-year-old, white male who presents to the Emergency Department with shortness of breath. The patient has a history of COPD and CHF. He usually uses CPAP at the assisted living facility. He was noted to have been developing coughing and shortness of breath over the past couple of days, and his states that he was coughing a lot yesterday and bringing up mostly phlegm and that he was restless and could not sleep. Recent treatment at [facility] for pneumonia due to methicillin-resistant Staphylococcus aureus. PAST MEDICAL HISTORY: COPD, CHF, atrial fibrillation, insulin-dependent diabetes mellitus, hypertension, hyperlipidemia, gastroesophageal reflux, gastroparesis, iron deficiency anemia, oxygen-dependent. PAST SURGICAL HISTORY: Right knee surgery, right carpal tunnel release, cardiac ablation treatment 2002. ALLERGIES: ASPIRIN, CODEINE. MEDICATIONS: Vital Signs Date Time Temp Pulse Resp B/P (MAP) Pulse Ox O2 Delivery O2 Flow Rate FiO2 12/16/17 16:40 100 35 12/16/17 11:00 102 12/16/17 10:50 102 12/16/17 10:48 100 35 12/16/17 10:40 102 12/16/17 10:30 102 12/16/17 10:20 101 12/16/17 10:11 35 12/16/17 10:10 102 12/16/17 10:00 100 12/16/17 09:40 98 12/16/17 09:30 100 12/16/17 09:30 100 20 97/56 (70) 100 12/16/17 09:20 100 12/16/17 09:20 100 20 83/52 (62) 100 12/16/17 09:10 100 23 107/59 (75) 90 12/16/17 09:10 100 12/16/17 09:00 99 12/16/17 09:00 99 20 104/56 (72) 100 19/18 08:53 100 419/18 08:53 100 12 93/53 (66) 18 08:40 97 19 120/60 (80) 99 18 08:40 97 12/16/18 08:30 96 20 117/56 (76) 99 12/16/18 08:30 96 12/16/18 08:20 96 18 08:20 96 20 111/59 (76) 99 18 08:10 96 18 08:10 96 20 107/58 (74) 99 18 08:00 95 18 08:00 35 18 08:00 101.2 95 20 116/61 (79) 99 18 07:44 99 35 18 06:35 94 95/46 12/16/17 06:00 96 18 05:48 18 12/16/17 04:38 95 35 18 04:00 83 18 04:00 99.6 83 31 90/49 (63) 95 18 04:00 35 18 02:00 85 18 01:11 95 35 18 00:00 90 12/16/17 00:00 35 12/16/17 00:00 99.9 90 39 121/56 (77) 95 18 22:00 88 18 20:29 98 35 18 20:00 35 18 20:00 101 18 20:00 100.9 101 40 119/58 (78) 95 18 18:00 97 OBJECTIVE: Vital Signs Date Time Temp Pulse Resp B/P (MAP) Pulse Ox O2 Delivery O2 Flow Rate FiO2 12/16/17 16:40 100 35 18 11:00 102 18 10:50 102 18 10:48 100 35 18 10:40 102 12/16/18 10:30 102 12/16/18 10:20 101 18 10:11 35 18 10:10 102 18 10:00 100 4/19/18 09:40 98 4/19/18 09:30 100 4/19/18 09:30 100 20 97/56 (70) 100 4/19/18 09:20 100 4/19/18 09:20 100 20 83/52 (62) 100 4/19/18 09:10 100 23 107/59 (75) 90 19/18 09:10 100 19/18 09:00 99 12/16/18 09:00 99 20 104/56 (72) 100 19/18 08:53 100 4/19/18 08:53 100 12 93/53 (66) 12/16/18 08:40 97 19 120/60 (80) 99 12/16/18 08:40 97 12/16/18 08:30 96 20 117/56 (76) 99 12/16/18 08:30 96 12/16/18 08:20 96 12/16/18 08:20 96 20 111/59 (76) 99 12/16/18 08:10 96 12/16/18 08:10 96 20 107/58 (74) 99 12/16/18 08:00 95 12/16/18 08:00 35 12/16/18 08:00 101.2 95 20 116/61 (79) 99 12/16/18 07:44 99 35 12/16/18 06:35 94 95/46 12/16/18 06:00 96 12/16/18 05:48 18 12/16/18 04:38 95 35 19/18 04:00 83 12/16/18 04:00 99.6 83 31 90/49 (63) 95 19/18 04:00 35 19/18 02:00 85 19/18 01:11 95 35 19/18 00:00 90 19/18 00:00 35 12/16/18 00:00 99.9 90 39 121/56 (77) 95 18/18 22:00 88 18/18 20:29 98 35 18/18 20:00 35 18/18 20:00 101 18/18 20:00 100.9 101 40 119/58 (78) 95 18/18 18:00 97 Laboratory Tests Test 4/18/18 04:45 4/18 04:55 White Blood Count 13.3 TH/MM3 13.0 TH/MM3 Red Blood Count 3.49 MIL/MM3 3.64 MIL/MM3 Hemoglobin 9.8 GM/DL 10.2 GM/DL Hematocrit 30.2 % 32.6 % Mean Corpuscular Volume 86.4 FL 89.6 FL Mean Corpuscular Hemoglobin 28.1 PG 28.1 PG Mean Corpuscular Hemoglobin Concent 32.6 % 31.3 % Red Cell Distribution Width 17.6 % 18.4 % Platelet Count 49 TH/MM3 64 TH/MM3 Mean Platelet Volume 9.4 FL 9.6 FL Neutrophils (%) (Auto) 79.1 % Lymphocytes (%) (Auto) 15.0 % Monocytes (%) (Auto) 5.7 % Eosinophils (%) (Auto) 0.1 % Basophils (%) (Auto) 0.1 % Neutrophils # (Auto) 10.5 TH/MM3 Lymphocytes # (Auto) 2.0 TH/MM3 Monocytes # (Auto) 0.8 TH/MM3 Eosinophils # (Auto) 0.0 TH/MM3 Basophils # (Auto) 0.0 TH/MM3 CBC Comment AUTO DIFF AUTO DIFF Differential Total Cells Counted 100 100 Neutrophils % (Manual) 80 % 85 % Band Neutrophils % 6 % 7 % Lymphocytes % 11 % 4 % Monocytes % 3 % 4 % Neutrophils # (Manual) 11.4 TH/MM3 12.0 TH/MM3 Nucleated Red Blood Cells 1 /100 WBC 1 /100 WBC Differential Comment FINAL DIFF MANUAL FINAL DIFF MANUAL Platelet Estimate LOW LOW Platelet Morphology Comment NORMAL NORMAL Polychromasia 2.9 % 2.3 % Basophilic Stippling MOD FAINT [place] Cells 1+ Ovalocytes 1+ Laboratory Tests Test 12/15/17 04:45 12/15/17 15:15 12/16/17 04:55 Blood Urea Nitrogen 50 MG/DL 54 MG/DL Creatinine 2.10 MG/DL 2.02 MG/DL Random Glucose 168 MG/DL 216 MG/DL Total Protein 5.4 GM/DL 5.6 GM/DL Albumin 3.3 GM/DL 3.7 GM/DL Calcium Level 7.8 MG/DL 7.5 MG/DL Magnesium Level 1.8 MG/DL 2.0 MG/DL Alkaline Phosphatase 449 U/L 435 U/L Aspartate Amino Transf (AST/SGOT) 42 U/L 27 U/L Alanine Aminotransferase (ALT/SGPT) 34 U/L 32 U/L Total Bilirubin 1.0 MG/DL 0.8 MG/DL Sodium Level 142 MEQ/L 143 MEQ/L Potassium Level 2.7 MEQ/L 3.9 MEQ/L 4.0 MEQ/L Chloride Level 104 MEQ/L 105 MEQ/L Carbon Dioxide Level 29.3 MEQ/L 29.2 MEQ/L Anion Gap 9 MEQ/L 9 MEQ/L Estimat Glomerular Filtration Rate 31 ML/MIN 32 ML/MIN Microbiology Date/Time Source Procedure Growth Status 12/16/17 15:05 Blood Peripheral Aerobic Blood Culture Pending Received 12/16/17 15:05 Blood Peripheral Anaerobic Blood Culture Pending Received 12/16/17 12:15 Sputum Endotracheal Gram Stain Pending Received 12/16/17 12:15 Sputum Endotracheal Sputum Culture Pending Received 12/16/17 12:57 Urine Catheterized Urine Urine Culture Pending Received 12/14/17 05:00 Urine Catheterized Urine Urine Culture - Final Nette Glabrata Complete Microbiology Date/Time Source Procedure Growth Status 12/14/17 05:00 Urine Catheterized Urine Urine Culture Pending Received Imaging: Chest X-Ray 12/16/17 0600 Signed Impressions: Service Date/Time: November 04:43 - CONCLUSION: No significant change bibasilar atelectasis and small right pneumothorax. Right chest tube remains in place. Abdiel Vidales MD Chest X-Ray 12/14/17 0600 Signed Impressions: Service Date/Time: Thursday, December 14, 2017 04:58 - CONCLUSION: 1. Right chest tube remains in place. A small basilar pneumothorax is present. 2. Improving left base consolidation. Abdiel Vidales MD Chest X-Ray 12/14/17 0000 Signed Impressions: Service Date/Time: Thursday, December 14, 2017 11:45 - CONCLUSION: 1. Tracheostomy appears in appropriate location. There is no left pneumothorax. Small right pneumothorax is stable with chest tube in place. 2. Stable left basilar opacity. Abdiel Kwon MD Chest X-Ray 12/13/17 0000 Signed Impressions: Service Date/Time: Wednesday, December 13, 2017 04:01 - CONCLUSION: 1. Mild left base consolidation developing. 2. Right chest tube remains in place. No pneumothorax but chest wall emphysema persists. Abdiel Vidales MD Chest X-Ray 12/09/17 0600 Signed Impressions: Service Date/Time: November 03:05 - CONCLUSION: Tiny right apical pneumothorax. Nikunj Oneil MD Head CT 12/08/17 0000 Signed Impressions: Service Date/Time: Friday, December 08, 2017 08:25 - CONCLUSION: Negative for acute process. Torin Dennison MD FACR Chest X-Ray 12/08/17 0000 Signed Impressions: Service Date/Time: Friday, December 08, 2017 10:25 - CONCLUSION: Right chest tube with increasing subcutaneous emphysema and trace pneumothorax. Torin Dennison MD FACR Chest X-Ray 12/07/17 0000 Signed Impressions: Service Date/Time: Thursday, December 07, 2017 21:21 - CONCLUSION: 1. Right- sided chest tube in place with no visualized pneumothorax. There is been interval decrease in subcutaneous emphysema over the right lateral chest wall. 2. Stable blunting of left costophrenic angle with hazy opacity remaining at the left lung base. Liang Jimenez MD Chest X-Ray 12/07/17 0000 Signed Impressions: Service Date/Time: Thursday, December 07, 2017 08:57 - CONCLUSION: 1. Right chest tube remains present and there is a potential small right apical pneumothorax present. Right chest wall subcutaneous emphysema is stable. 2. Stable left basilar opacity with blunting of the left costophrenic sulcus. Abdiel Kwon MD PHYSICAL EXAMINATION: GENERAL: Sedated. HEENT: No icterus. NECK: No swelling or adenopathy. LUNGS: Decreased breath sounds. Wheezing at the left base. HEART: Irregular S1 and S2. No murmurs, rubs or gallops. ABDOMEN: Bowel sounds present, obese, soft. Non tender. EXTREMITIES: 2+ diffuse edema seen. Cyanosis at the tips of the toes. The feet are warm. SKIN: No diffuse rash. NEUROLOGIC: Nonfocal. PSYCHIATRIC: Sedated. IMPRESSION: 1. New fever. 2. Sepsis. 3. Pneumonia - Pseudomonas MDR. Latest sputum culture - Pseudomonas. Could be colonization. However with his seriously ill clinical condition he may have ongoing pneumonia. 4. Acute respiratory failure. Vent dependent. Extubated previously and appears to have aspirated. 5. Leukocytosis. White blood cell count decreasing. 6. Nette glabrata UTI. Persistent despite management with Diflucan. Repeat urine still positive Last urine culture on 12/14 had Nette glabrata. 6. Right-sided pneumothorax. Subcutaneous emphysema. 7. History of chronic obstructive pulmonary disease and recent chronic obstructive pulmonary disease exacerbation. 8. Renal failure. Receiving hemodialysis. 9. Elevated liver function tests. LFT is decreasing. RECOMMENDATIONS: 1. Agree with resuming vancomycin. 2. Continue Micafungin. Patient has been on broad-spectrum antibiotics and has potential for systemic fungal infection. 3. Monitor blood, sputum and urine culture 4. Continue Zerbaxa for pneumonia. 5. Continue Levaquin. 6. Continue metronidazole. 7. Monitor white blood cell count. Discussed with Dr. Meadows. Discussed with at bedside. Tom Long MD Dec 16, 2017 16:52
--- NOTE | 2017-12-16 17:01 | RADRPT ---
EXAM DATE/TIME: 12/16/2017 16:18 [facility] COMPARISON: CHEST SINGLE AP, December 16, 2017, 4:43. INDICATIONS : Right central line placement. MEDICAL HISTORY : Chronic obstructive pulmonary disease. Cardiovascular disease. SURGICAL HISTORY : Tracheostomy ENCOUNTER: Subsequent ACUITY: 3 weeks PAIN SCORE: Non-responsive. LOCATION: Right cenral line FINDINGS: A single view of the chest demonstrates interval placement of a right subclavian central venous luan ter. The catheter appears to loop in the central internal jugular vein with the tip probably in the p roximal brachiocephalic. Right IJ dialysis type catheter, left IJ central venous catheter and right thoracostomy tube are unch anged in position. Small right sided pneumothorax is also stable. Stable deep tissue emphysematous ch anges around the right hemithorax. Stable position of tracheostomy tube. Lungs are incompletely evaluated as the bases are not included on this exam. There does appear to be some bibasilar airspace disease, possibly atelectatic. CONCLUSION: 1. Right subclavian central venous catheter appears to loop in the central portion of the right inter nal jugular with the tip in the proximal brachiocephalic. 2. Right IJ dialysis type catheter, left IJ central venous catheter, right-sided thoracostomy tube an d the tracheostomy tube are all stable in position. 3. Stable deep tissue emphysematous changes about the right hemithorax. Small, stable right pneumotho rax. 4. Bibasilar airspace disease is grossly stable but incompletely evaluated on this exam. Omid Traore MD on December 16, 2017 at 16:55 Board Certified Radiologist. This report was verified electronically.
--- NOTE | 2017-12-16 18:00 | RADRPT ---
EXAM DATE/TIME: 12/16/2017 17:33 [facility] COMPARISON: CHEST SINGLE AP, December 16, 2017, 16:18. INDICATIONS : Central line placement. MEDICAL HISTORY : Chronic obstructive pulmonary disease. Cardiovascular disease. SURGICAL HISTORY : Tracheostomy. ENCOUNTER: Subsequent ACUITY: 1 day PAIN SCORE: Non-responsive. LOCATION: Bilateral chest FINDINGS: A right subclavian central line has been repositioned and is no longer coiled within the jugular vein . Supportive devices which include a right jugular Vas-Cath, right subclavian central line, left centra l line tracheostomy tube and right thoracostomy tube are in good position. There is a persistent small right pneumothorax subcutaneous emphysema at the base of the neck on the right and along the right lateral chest wall is stable. Chronic obstructive pulmonary disease as well as left basilar airspace disease are again noted. CONCLUSION: 1. Satisfactory appearance and position of support devices. 2. Repositioning of right subclavian central venous catheter which is no longer coiled in the jugular vein. 3. Persistent small right pneumothorax and subcutaneous emphysema. 4. COPD and left basilar airspace disease; unchanged. Anshul Alfaro MD on December 16, 2017 at 17:55 Board Certified Radiologist. This report was verified electronically.
[2017-12-16] MEDS: LEVOFLOXACIN 250 MG PREMIX INJ 50 ML IV SCH (18:21)
--- NOTE | 2017-12-16 20:03 | PD.ONC.PN ---
Subjective Subjective Remarks intubated family members at bedside argatroban stopped for procedure no bleeding prognosis appears to be poor Objective Data Date Time Temp Pulse Resp B/P (MAP) Pulse Ox O2 Delivery O2 Flow Rate FiO2 12/16/17 19:27 100 35 18 19:20 100 18 19:10 101 12/16/17 19:02 109 12/16/17 19:00 107 12/16/17 18:50 108 12/16/17 18:40 107 12/16/17 18:30 105 12/16/17 18:20 103 12/16/17 18:16 101 109/62 12/16/17 18:10 101 12/16/17 18:05 101 109/62 12/16/17 18:00 104 12/16/17 16:40 100 35 12/16/17 16:12 101 12/16/17 16:12 101 26 117/69 (85) 100 12/16/17 16:00 102.2 103 17 100 12/16/17 16:00 103 12/16/17 16:00 35 12/16/17 15:46 109 20 75/50 (58) 100 18 15:46 109 18 15:10 100 12/16/17 15:10 100 20 104/57 (73) 100 12/16/17 15:00 96 12/16/17 15:00 96 23 147/73 (97) 100 18 14:51 99 40 134/74 (94) 85 18 14:51 99 12/16/17 14:40 93 20 176/86 (116) 100 18 14:40 93 18 14:30 93 20 176/86 (116) 100 18 14:30 93 18 14:20 95 18 14:20 95 20 175/89 (117) 100 18 14:10 95 20 172/87 (115) 100 18 14:10 95 18 14:00 95 18 14:00 95 20 166/83 (110) 100 12/16/17 13:50 96 20 164/87 (112) 12/16/17 13:50 96 4/19/18 13:40 97 20 140/75 (96) 100 4/19/18 13:40 97 4/19/18 13:00 101 20 94 4/19/18 13:00 101 4/19/18 12:50 102 20 139/72 (94) 100 4/19/18 12:50 102 4/19/18 12:40 102 20 128/70 (89) 100 4/19/18 12:40 102 4/19/18 12:30 103 20 128/69 (88) 100 4/19/18 12:30 103 4/19/18 12:20 102 20 126/59 (81) 100 4/19/18 12:20 102 4/19/18 12:10 103 4/19/18 12:10 103 39 142/71 (94) 97 4/19/18 12:00 103 4/19/18 12:00 35 4/19/18 12:00 103 20 129/74 (92) 100 4/19/18 11:00 102 4/19/18 10:50 102 4/19/18 10:48 100 35 4/19/18 10:40 102 4/19/18 10:30 102 4/19/18 10:20 101 4/19/18 10:11 35 4/19/18 10:10 102 4/19/18 10:00 100 4/19/18 09:40 98 4/19/18 09:30 100 4/19/18 09:30 100 20 97/56 (70) 100 4/19/18 09:20 100 4/19/18 09:20 100 20 83/52 (62) 100 4/19/18 09:10 100 23 107/59 (75) 90 4/19/18 09:10 100 4/19/18 09:00 99 4/19/18 09:00 99 20 104/56 (72) 100 4/19/18 08:53 100 4/19/18 08:53 100 12 93/53 (66) 4/19/18 08:40 97 19 120/60 (80) 99 4/19/18 08:40 97 4/19/18 08:30 96 20 117/56 (76) 99 4/19/18 08:30 96 4/19/18 08:20 96 4/19/18 08:20 96 20 111/59 (76) 99 4/19/18 08:10 96 12/16/17 08:10 96 20 107/58 (74) 99 12/16/17 08:00 95 12/16/17 08:00 35 12/16/17 08:00 101.2 95 20 116/61 (79) 99 12/16/17 07:44 99 35 12/16/17 06:35 94 95/46 12/16/17 06:00 96 12/16/17 05:48 18 12/16/17 04:38 95 35 12/16/17 04:00 83 12/16/17 04:00 99.6 83 31 90/49 (63) 95 12/16/17 04:00 35 12/16/17 02:00 85 12/16/17 01:11 95 35 12/16/17 00:00 90 12/16/17 00:00 35 12/16/17 00:00 99.9 90 39 121/56 (77) 95 12/15/17 22:00 88 12/15/17 20:29 98 35 12/16/17 12/16/17 12/16/17 07:00 15:00 23:00 Intake Total 600 ml 100 ml 2091 ml Output Total 10 ml 200 ml Balance 590 ml 100 ml 1891 ml Result Diagram: 12/16/17 0455 12/16/17 045 Laboratory Results Laboratory Tests Test 12/15/17 20:45 12/15/17 23:20 12/16/17 04:55 12/16/17 08:50 Activated Partial Thromboplast Time 46.0 SEC 52.6 SEC 56.1 SEC White Blood Count 13.0 TH/MM3 Red Blood Count 3.64 MIL/MM3 Hemoglobin 10.2 GM/DL Hematocrit 32.6 % Mean Corpuscular Volume 89.6 FL Mean Corpuscular Hemoglobin 28.1 PG Mean Corpuscular Hemoglobin Concent 31.3 % Red Cell Distribution Width 18.4 % Platelet Count 64 TH/MM3 Mean Platelet Volume 9.6 FL CBC Comment AUTO DIFF Differential Total Cells Counted 100 Neutrophils % (Manual) 85 % Band Neutrophils % 7 % Lymphocytes % 4 % Monocytes % 4 % Neutrophils # (Manual) 12.0 TH/MM3 Nucleated Red Blood Cells 1 /100 WBC Differential Comment FINAL DIFF MANUAL Platelet Estimate LOW Platelet Morphology Comment NORMAL Polychromasia 2.3 % Basophilic Stippling FAINT Ovalocytes 1+ Fibrinogen 368 mg/dL Blood Urea Nitrogen 54 MG/DL Creatinine 2.02 MG/DL Random Glucose 216 MG/DL Total Protein 5.6 GM/DL Albumin 3.7 GM/DL Calcium Level 7.5 MG/DL Magnesium Level 2.0 MG/DL Alkaline Phosphatase 435 U/L Aspartate Amino Transf (AST/SGOT) 27 U/L Alanine Aminotransferase (ALT/SGPT) 32 U/L Total Bilirubin 0.8 MG/DL Sodium Level 143 MEQ/L Potassium Level 4.0 MEQ/L Chloride Level 105 MEQ/L Carbon Dioxide Level 29.2 MEQ/L Anion Gap 9 MEQ/L Estimat Glomerular Filtration Rate 32 ML/MIN Blood Gas Puncture Site RT RADIAL Blood Gas Patient Temperature 98.6 Blood Gas HCO3 24 mmol/L Blood Gas Base Excess -0.4 mmol/L Blood Gas Oxygen Saturation 95 % Arterial Blood pH 7.38 Arterial Blood Partial Pressure CO2 42 mmHg Arterial Blood Partial Pressure O2 108 mmHg Arterial Blood Oxygen Content 14.4 Vol % Arterial Blood Carboxyhemoglobin 1.7 % Arterial Blood Methemoglobin 1.4 % Blood Gas Hemoglobin 10.6 G/DL Oxygen Delivery Device VENTILATOR Blood Gas Ventilator Setting AC20/600/+5 Blood Gas Inspired Oxygen 35 % Culture Results Microbiology Date/Time Source Procedure Growth Status 12/16/17 15:20 Blood Peripheral Aerobic Blood Culture Pending Received 12/16/17 15:20 Blood Peripheral Anaerobic Blood Culture Pending Received 12/16/17 15:05 Blood Peripheral Aerobic Blood Culture Pending Received 12/16/17 15:05 Blood Peripheral Anaerobic Blood Culture Pending Received 12/16/17 12:15 Sputum Endotracheal Gram Stain Pending Received 12/16/17 12:15 Sputum Endotracheal Sputum Culture Pending Received 12/16/17 12:57 Urine Catheterized Urine Urine Culture Pending Received 12/14/17 05:00 Urine Catheterized Urine Urine Culture - Final Nette Glabrata Complete Imaging Studies Last 24 hours Impressions Chest X-Ray 12/16/17 0600 Signed Impressions: Service Date/Time: November 04:43 - CONCLUSION: No significant change bibasilar atelectasis and small right pneumothorax. Right chest tube remains in place. Abdiel Vidales MD Chest X-Ray 12/16/17 0000 Signed Impressions: Service Date/Time: November 17:33 - CONCLUSION: 1. Satisfactory appearance and position of support devices. 2. Repositioning of right subclavian central venous catheter which is no longer coiled in the jugular vein. 3. Persistent small right pneumothorax and subcutaneous emphysema. 4. COPD and left basilar airspace disease; unchanged. Anshul Alfaro MD Chest X-Ray 12/16/17 0000 Signed Impressions: Service Date/Time: November 16:18 - CONCLUSION: 1. Right subclavian central venous catheter appears to loop in the central portion of the right internal jugular with the tip in the proximal brachiocephalic. 2. Right IJ dialysis type catheter, left IJ central venous catheter, right-sided thoracostomy tube and the tracheostomy tube are all stable in position. 3. Stable deep tissue emphysematous changes about the right hemithorax. Small, stable right pneumothorax. 4. Bibasilar airspace disease is grossly stable but incompletely evaluated on this exam. Omid Traore MD Administered Medications Medications (Trade) Dose Ordered Sig/Yani Route PRN Reason Start Time Stop Time Status Last Admin Dose Admin Sodium Chloride (NS Flush) 2 ml UNSCH PRN IV FLUSH FLUSH AFTER USING IV ACCESS 11/14/17 15:45 11/17/17 14:05 Sodium Chloride (NS Flush) 2 ml BID IV FLUSH 11/14/17 21:00 12/16/17 08:41 Ondansetron HCl (Zofran Inj) 4 mg Q6H PRN IV PUSH NAUSEA OR VOMITING 11/14/17 15:45 11/18/17 16:03 Miscellaneous Information 1 Q361D XX 11/14/17 15:45 11/14/17 15:45 Chlorhexidine Gluconate (Chlorhexidine 2% Cloth) Taper DAILY@04 TOP 11/15/17 04:00 11/11/18 03:59 12/16/17 04:00 Senna/Docusate Sodium (Ricarda-Colace) 1 tab BID PO 11/14/17 21:00 12/16/17 08:40 Apixaban (Eliquis) 5 mg BID PO 11/14/17 21:00 Future Hold 11/27/17 20:17 Atorvastatin Calcium (Lipitor) 80 mg HS PO 11/14/17 21:00 Future Hold 12/05/17 19:49 Digoxin (Lanoxin) 0.125 mg DAILY PO 11/15/17 09:00 Future Hold 11/17/17 08:24 Diltiazem HCl (Cardizem) 60 mg QID PO 11/14/17 18:00 Future Hold 12/06/17 08:44 Hydralazine HCl (Apresoline Inj) 20 mg Q4H PRN IV PUSH SYS BP GREATER THAN 160 MMHG 11/17/17 12:00 11/22/17 07:38 Budesonide/ Formoterol Fumarate (Symbicort 160-4.5 Mcg Inh) 2 puff Q12HR INH 11/18/17 21:00 12/15/17 21:01 Chlorhexidine Gluconate (Peridex 0.12% Liq) 15 ml BID@08,20 MT 11/19/17 08:00 12/16/17 08:37 Albuterol/ Ipratropium (Duoneb Neb) 1 ampule Q2HR NEB PRN INH WHEEZING 11/18/17 22:30 12/13/17 08:12 Famotidine (Pepcid) 10 mg BID PO 11/22/17 21:00 12/16/17 08:41 Insulin Aspart (NovoLOG SUPPLEMENTAL SCALE) 1 Q4HR SQ 11/26/17 16:00 12/16/17 16:00 Dextrose (D50w (Vial) Inj) 25 ml UNSCH PRN IV HYPOGLYCEMIA-SEE COMMENTS 11/26/17 15:30 12/04/17 01:18 Fentanyl Citrate 250 ml @ 5 mls/hr TITRATE PRN IV SEDATION 11/27/17 13:45 12/03/17 08:58 Sodium Chloride 1,000 ml @ 0 mls/hr Q0M PRN OTHER For Prime & Rinse Back 12/02/17 09:30 12/08/17 16:50 Mannitol (Mannitol Inj) 12.5 gm UNSCH PRN IV WITH DIALYSIS 12/02/17 09:30 12/15/17 12:43 Albumin Human 100 ml @ 60 mls/hr UNSCH PRN IV WITH DIALYSIS 12/02/17 09:30 12/15/17 12:44 Sodium Chloride (NS Flush) 5 ml UNSCH PRN IV FLUSH WITH DIALYSIS 12/02/17 09:30 12/08/17 16:51 Heparin Sodium (Porcine) (Heparin Inj) UNSCH PRN .XX WITH DIALYSIS 12/02/17 09:30 12/08/17 16:50 Gentamicin Sulfate (Gentamicin Inj) 20 mg UNSCH PRN OTHER WITH DIALYSIS 12/02/17 09:30 12/15/17 12:43 Acetaminophen (Tylenol) 650 mg UNSCH PRN PO for headach, pain, temp > 101F 12/02/17 09:30 12/16/17 19:06 Epoetin Kvng (Epogen Inj) 4,000 units UNSCH PRN IV PUSH WITH DIALYSIS 12/02/17 09:30 12/15/17 12:44 Micafungin Sodium 150 mg/Sodium Chloride 100 ml @ 100 mls/hr Q24H IV 12/06/17 12:00 12/16/17 12:59 Hydrocortisone Sodium Succinate (SoluCORTEF INJ) 50 mg Q12H IV PUSH 12/07/17 23:00 12/16/17 12:59 Insulin Detemir (Levemir Inj) 5 units Q12HR SQ 12/07/17 12:00 12/16/17 08:41 Lanthanum Carbonate (Fosrenol Chew) 500 mg TID CHEW 12/07/17 18:00 12/16/17 18:04 Calcitriol (Rocaltrol) 0.5 mcg DAILY PO 12/08/17 09:00 12/16/17 08:40 Ceftolozane/ Tazobactam 150 mg/ Sodium Chloride 100 ml @ 100 mls/hr Q8H IV 12/08/17 23:00 12/16/17 18:05 Levofloxacin/ Dextrose 50 ml @ 50 mls/hr Q24H IV 12/08/17 16:00 12/16/17 18:21 Metronidazole (Flagyl) 500 mg Q6HR PO 12/10/17 13:30 12/16/17 18:04 Phenylephrine HCl 160 mg/Dextrose 500 ml @ 7.5 mls/hr TITRATE PRN IV Blood pressure management 12/10/17 19:30 12/16/17 18:16 Argatroban 250 mg/ Sodium Chloride 252.5 ml @ 3.03 mls/hr TITRATE PRN IV aPTT < 50 12/12/17 18:00 12/15/17 18:39 Amiodarone HCl 450 mg/Sodium Chloride 250 ml @ 33.33 mls/ hr Q7H31M PRN IV Per Protocol 12/13/17 12:30 12/14/17 23:52 Amiodarone HCl (Cordarone) 200 mg Q12HR PO 12/15/17 14:00 12/16/17 08:40 Objective Remarks GENERAL: nad SKIN: Warm and dry. LYMPHATIC: No adenopathy. CARDIOVASCULAR: Regular rate and rhythm without murmurs. RESPIRATORY: ctab GASTROINTESTINAL: Abdomen soft, distended , bs absent EXTREMITIES: edematous Assessment/Plan Problem List: (1) Thrombocytopenia ICD Codes: D69.6 - Thrombocytopenia, unspecified Plan: --high probability of underlying heparin-induced thrombocytopenia. --HIT antibody positive, [place] pending. --on Argatroban drip. --transfuse for platelet count less than 10 (2) Normocytic anemia ICD Codes: D64.9 - Anemia, unspecified Plan: --likely due to sepsis and consumptive phenomena. --no indication of vitamin deficiency --yelena negative. --stool occult blood pending. --LDH and haptoglobin both elevated, no indication of hemolysis. Transfuse to keep hemoglobin greater than 7. (3) Sepsis ICD Codes: A41.9 - Sepsis, unspecified organism Plan: --on abx --Sputum cultures positive for Klebsiella pneumoniae and Pseudomonas. --Urine was positive for Nette glabrata. Assessment 77y/o male with sepsis. Hematology consulted for thrombocytopenia, HIT positive. history of COPD, CHF, atrial fibrillation and diabetes. hypertension, obstructive sleep apnea with BiPAP, right carpal tunnel syndrome, depression, anxiety, history of MRSA pneumonia, iron deficiency anemia, hyperlipidemia, gastroparesis. Plan 1. Thrombocytopenia due to sepsis and consumption - [place] is negative --HIT panel was positive - stop argatroban - could consider fondaparinux for prophylaxis - daily cbc - PLT going up - check daily fibrinogen 2. Respiratory failure/sepsis Oscar Quintana MD Dec 16, 2017 20:03
[2017-12-17] VITALS (44 sets, daily range): BP systolic 76–143; BP diastolic 46–78; PULSE 95–136; RESP 2–32; TEMP 97.7–99.1; O2SAT 97–100
[2017-12-17] MEDS: metroNIDAZOLE 500 MG TAB PO SCH ×5 (02:24→23:28)
[2017-12-17] MEDS: CHLORHEXIDINE GLUCONATE 2 % 1 PACK (2 CLOTHS) TOP SCH (04:00)
[2017-12-17] MEDS: INSULIN ASPART SUPPLEMENTAL SCALE SQ SCH ×6 (04:47→22:03)
[2017-12-17] MEDS: RESP: ALBUTEROL 2.5 MG/IPRATROPIUM 0.5 MG NEB (PRN) INH ×2 (05:10→07:19)
[2017-12-17] MEDS: CEFTOLOZANE-TAZOBACTAM INJ 150 MG in SODIUM CHLORIDE 0.9% INJ 100 ML IV SCH ×3 (06:18→23:00)
[2017-12-17] MEDS: CHLORHEXIDINE 0.12% (ORAL KIT) 15 ML CUP MT SCH ×2 (08:00→22:03)
[2017-12-17] MEDS: SODIUM CHLORIDE 0.9% FLUSH 10 ML FLUSH IV FLUSH SCH ×2 (08:09→22:03)
[2017-12-17] MEDS: BUDESONIDE-FORMOTEROL 160/4.5 MCG INHALER INH SCH ×2 (08:09→22:01)
[2017-12-17] MEDS: DOCUSATE SODIUM 50 MG/SENNA 8.6 MG TAB PO SCH ×2 (08:09→22:01)
[2017-12-17] MEDS: AMIODARONE 200 MG TAB PO SCH ×2 (08:09→22:01)
[2017-12-17] MEDS: LANTHANUM CARBONATE 500 MG CHEWABLE TABLET CHEW SCH ×3 (08:09→18:29)
[2017-12-17] MEDS: FAMOTIDINE 20 MG TAB PO SCH ×2 (08:09→22:01)
[2017-12-17] MEDS: INSULIN DETEMIR 100 UNITS/ML VIAL SQ SCH ×2 (08:10→21:00)
[2017-12-17] MEDS: CALCITRIOL 0.25 MCG CAP PO SCH (08:10)
--- NOTE | 2017-12-17 08:39 | RADRPT ---
EXAM DATE/TIME: 12/17/2017 08:12 [facility] COMPARISON: CHEST SINGLE AP, December 16, 2017, 17:33. INDICATIONS : Shortness of breath. MEDICAL HISTORY : Chronic obstructive pulmonary disease. Cardiovascular disease. SURGICAL HISTORY : Tracheostomy ENCOUNTER: Subsequent ACUITY: 3 weeks PAIN SCORE: Non-responsive. LOCATION: Bilateral chest FINDINGS: Stable tracheostomy, left IJ central line, right subclavian central line, and right IJ introducer. Th ere is a stable chest tube in the right mid hemithorax with persistent small right apical pneumothora x and stable subcutaneous emphysema. Minimal left lower lobe patchy air space disease. Cardiomediasti nal contours are within normal limits. Remainder of exam is unchanged. CONCLUSION: 1. No significant 24-hour interval change. 2. Stable tubes and lines. 3. Stable right chest tube with stable small right pneumothorax and subcutaneous emphysema. 4. Stable left lower lobe patchy airspace disease. Anil Aldana MD on December 17, 2017 at 8:34 Board Certified Radiologist. This report was verified electronically.
[2017-12-17 08:44] LABS: AUTOMATED NEUTROPHIL # 13.8 TH/MM3 (1.8-7.7); BASOPHIL % 0.2 % (0.0-2.0); HEMATOCRIT 34.5 % (39.0-51.0); HEMOGLOBIN 10.9 GM/DL (13.0-17.0); LYMPH % 8.8 % (9.0-44.0); LYMPHOCYTE # 1.4 TH/MM3 (1.0-4.8); MEAN CELL VOLUME 88.3 FL (80.0-100.0); MEAN CORPUSCULAR HEMOGLOBIN 27.9 PG (27.0-34.0); MEAN CORPUSCULAR HGB CONC 31.6 % (32.0-36.0); MEAN PLATELET VOLUME 9.3 FL (7.0-11.0); MONO % 5.7 % (0.0-8.0); MONOCYTE # 0.9 TH/MM3 (0-0.9); NEUT % 85.3 % (16.0-70.0); PLATELET COUNT 66 TH/MM3 (150-450); RED BLOOD COUNT 3.91 MIL/MM3 (4.50-5.90); RED CELL DISTRIBUTION WIDTH 18.4 % (11.6-17.2); WHITE BLOOD COUNT 16.2 TH/MM3 (4.0-11.0)
[2017-12-17 09:17] LABS: ALBUMIN 2.5 GM/DL (3.4-5.0); BICARBONATE 22.1 MEQ/L (21.0-32.0); CREATININE 2.15 MG/DL (0.60-1.30); TOTAL BILIRUBIN ADULT 0.7 MG/DL (0.2-1.0); TOTAL PROTEIN 4.2 GM/DL (6.4-8.2)
--- NOTE | 2017-12-17 09:18 | HHI.CCPN ---
Subjective Remarks/Hospital Course This is a 77-year-old male with a medical history significant for COPD, CHF, A. fib, diabetes, that presented to emergency department from [facility] for evaluation of worsening shortness of breath over the last 3 days. The patient was been given Solu-Medrol 125 mg and 2 albuterol treatments enroute to ED. Upon presentation to the ED the patient was on a nonrebreather. He was tachypneic and tachycardic. Patient's medical history significant for MRSA pneumonia previously admitted on 10/27/16 for approximately 12 days at [facility]. The patient is normally on 2.5 L/m nasal cannula O2 home dependency, and he lives with ( normally) a PCO2 in the 80s according to his . Patient was then discharged to [facility], and then transferred to [facility] for rehabilitation. He has been on an unknown antibiotic per the family and steroids for the last 3 days. Laboratory and imaging studies were performed with noted elevation in CO2 The patient was given empiric antibiotics in the ED and placed on BiPAP. Critical care medicine was consulted. Subjective: 11/15: Patient maintained on BiPAP throughout the night O2 saturations 97-98% on FiO2 of 0.40. Hemodynamically stable. Attempts made to wean patient to nasal cannula this a.m. unsuccessful, patient's O2 saturation in the 70s, patient placed back on BiPAP. Chest x-ray pending WBC count significantly diminished, leukocytosis resolved. Patient extremely anxious, Precedex infusion initiated. 11/16: Late entry note. Patient seen 10 AM. Overnight the patient converted to A. fib RVR, despite being on Cardizem 4 times a day and metoprolol twice a day- home medications, the patient received IV Cardizem followed by amiodarone infusion. Per report the patient became hypotensive, Cardizem discontinued. Amiodarone continued. Early this a.m. patient was resting comfortably A. fib rate controlled rate. The patient suddenly converted to A. fib RVR heart rate 150s-160s, acute hypoxemic respiratory failure, requiring intubation. The patient was intubated uneventfully and continues on amiodarone at 0.5 mg/hour, rate now controlled in conjunction with sedation. Cardiology consulted, his inspection supervisor is Dr. Reyes X-ray revealed lung consolidation improved, chest x- ray clear. Plan for CPAP trials in a.m.. 11/17: No acute events overnight. Patient had 1 short 8 beat run of V. tach last evening was self resolution, electrolytes within normal limits. The patient continues on amiodarone 0.5 mg/hr. CPAP trials initiated this a.m.. Tube feeds initiated at trickle feeds. Patient converted to sinus rhythm at 2 AM. 11/18 Patient remains sedated and intubated. Afebrile. 11/19 Patient was extubated yesterday however last night he was noted to choke on water provided by the family. Stat ABG demonstrated acute hypercapnic respiratory failure and was emergently intubated. Currently sedated and intubated. 11/20 Patient remains intubated on Fentanyl drip however he si awake and alert. Afebrile. 11/21 Patient is awake and alert placed on CPAP with PS:15, PEEP:5. Afebrile. 11/22 Patient remains intubated , did not tolerate CPAP trials yesterday as he became tachycardic and hypertensive. On no sedation awake and alert. 11/23 No events overnight, off sedation. 11/24: Resting comfortably on mechanical ventilation currently. Daily C Pap trials ongoing. 11/25: Sedated with Precedex, orally intubated on mechanical ventilation. Daily C Pap trials 11/26: Sedated with Precedex, orally intubated on mechanical ventilation. Got tachypneic with CPAP trial today hence placed back on PRVC. Spiked a fever, garcia cultures ordered. Went into A. fib with RVR subsequently for which being initiated on amiodarone bolus followed by drip and Lopressor 5 mg IV every 6 as needed for 11/27: This morning patient developed bradycardia followed by asystole for which she had 3 minutes CPR with ACLS protocol with return of spontaneous circulation. Post code chest x-ray revealed moderate to large right pneumothorax for which a right pigtail catheter was placed by me however despite airleak patient continue have moderate to large pneumothorax hence a second right sided 28 Martiniquais chest tube was placed to -40 cm water pressure. Air leaks 1+ in both pigtail catheter and chest tube. Patient remains in a flutter currently. Dr. reyes evaluated patient as well following cardiac arrest. 11/28: Sedated, arousable, orally intubated on mechanical ventilation. Worsening renal function noted. MDR Pseudomonas in sputum. Right sided chest tube/ pigtail catheter with 1+ air leak in both. Subcutaneous emphysema noted over right side of face neck and right upper extremity. On 50% FiO2, PEEP +5. Poor urine output for which 500 cc and is bolus given earlier. Treated for hyperkalemia with Kayexalate PO, glucose insulin, calcium IV. 4/2: Remains sedated, arousable, orally intubated on mechanical ventilation. A. fib with RVR this morning for which she was loaded with amiodarone and initiated on amiodarone drip. Spiking fever 103.5. ID adjusting antibiotics. Stool for C. difficile ordered as he had some diarrhea today though received Kayexalate yesterday for hyperkalemia. Pigtail catheter on the right side appeared to be dislodged hence this was removed. 28 Martiniquais chest tube in right pleural cavity repositioned. 11/30: Late entry note , patient seen at 12 noon. Creatinine continues to trend upward.Sedated but easily arousable. 12/01: Patient lightly sedated, following commands this a.m.. Creatinine noted increased, possible dialysis consideration for tomorrow. Patient to be diuresed today. CPAP trial initiated failed after 5 minutes, repeat this afternoon. 12/02: Patient placed on Lasix infusion throughout the night . No renal improvement,creatinine worsened today , plan for Vas-Cath placement and IHD today. This extensive discussion with patient and plans for tracheostomy and PEG tube placement secondary to failure to wean. 12/03: Late entry note, patient seen at 11 am. Patient scheduled for PEG placement today by Dr. Iglesias. Patient continues to fail CPAP trials. Plan for tracheostomy in the near future 12/04: Late entry note . Patient seen earlier this am. Overnight the patient became hypoglycemic, secondary to n.p.o. status, post PEG placement. D10 was initiated at 30 cc/hr. Tube feeds reinitiated Jevity 1.5, 24 hours post PEG tube placed, D10 discontinued. Patient remains on fentanyl at 100 mics/hour, lightly sedated. Patient denies pain answering by nodding head to yes and no questions. Tracheostomy planned for Wednesday12/06/[address] Calderon. 12/05: Remains intubated sedated with 50 mcg of fentanyl. On attempted CPAP trial patient remained dyspneic. Significant neuromuscular weakness persist. Chest x-ray shows small right apical pneumothorax. Tentatively plan for tracheostomy tomorrow. Dr. Calderon has already been consulted 12/06 Patient remains intubated for possible trach today. On Levophed 12 mics. Afebrile. 12/07 No events overnight. Trach was placed on hold yesterday as patient was on Levophed. He is down to 5 mics today. Afebrile. 12/08 Patient remains intubated on no sedation. CT brain this morning showed no acute process. Off Levophed. 12/09 Patient was placed back on Levophed 6 mics. Afebrile. Remains intubated on no sedation. 12/10 Patient remains intubated. On Neosyn 40 mics went into Afib with RVR HR 128 12/11 Patient remains intubated. Now on Neosyn 200 mics ( MAP 86mmHg). s/p HD yesterday with 1.5L removed. T:99.7 12/12 Patient remains sedated and intubated. Neosyn down 100 mics. For transfusion 2u PRBC and 1u PLT ( Hgb 6.7 and PLT 18 this morning) s/p HD with 3L removed yesterday. WBC is trending down. 12/13: More critically ill today, Bertin-Synephrine had to be increased to 150 mcg/ min, remains borderline hypotensive despite Bertin-Synephrine, currently in A. fib with RVR. Digoxin additional 0.25 mg IV push 1, start amiodarone infusion 12/14: Patient remains patient remains intubated currently on 50 mcg/min of Bertin- Synephrine. Remains on amiodarone infusion with heart rate better controlled 110-120. Plan for perc trach at bedside today 12/15: Remains on Bertin-Synephrine 50 mcg/min. On attempted CPAP patient had multiple PVCs and PACs. Potassium 2.7 getting replaced. Argatroban will be restarted 12/16: Patient is more lethargic, profoundly hypotensive Bertin-Synephrine increase to 300 mcg/min. Possibly septic shock. Currently on micafungin backside Levaquin and Flagyl. Add gram-positive coverage with vancomycin send blood cultures. Also will also change central line today-cleared by Dr. Vela to use subclavian access 12/17: Hypertensive encephalopathic Bertin-Synephrine at 100 mcg/min. new right subclavian central line placed left IJ will be sent for culture. Currently in A. fib with RVR heart rate varying from 110s-130. If persistent will give 2.5 metoprolol. AUGUSTA negative and argatroban discontinued. Start heparin subcu for DVT prophylaxis Objective Vital Signs Date Time Temp Pulse Resp B/P (MAP) Pulse Ox O2 Delivery O2 Flow Rate FiO2 12/17/17 07:10 98 35 12/17/17 06:18 112 117/66 12/17/17 04:00 98.4 20 Intake and Output 12/17/17 12/17/17 12/18/17 08:00 16:00 00:00 Intake Total 1085 ml Output Total 100 ml Balance 985 ml Result Diagram: 12/17/17 0833 12/16/17 0455 Imaging Last Impressions Chest X-Ray 12/11/17 0000 Signed Impressions: Service Date/Time: Monday, December 11, 2017 10:51 - CONCLUSION: Stable chest with moderate subcutaneous emphysema and no pneumothorax. Torin Dennison MD FACR Liver Ultrasound 12/09/17 0000 Signed Impressions: Service Date/Time: November 19:18 - CONCLUSION: 1. Limited suboptimal examination with only a small portion of the liver visualized. 2. The gallbladder and common bile duct could not be visualized. The pancreas is not evaluated. 3. Left pleural effusion. Liang Jimenez MD Head CT 12/08/17 0000 Signed Impressions: Service Date/Time: Friday, December 08, 2017 08:25 - CONCLUSION: Negative for acute process. Torin Dennison MD FACR Catheter Placement X-Ray 12/02/17 0000 Signed Impressions: Service Date/Time: November 10:47 - CONCLUSION: Uncomplicated right internal jugular Vas-Cath placement as above. incidental note is made of subcutaneous emphysema within the chest wall and neck Con Dennison MD Lower Extremity Ultrasound 11/29/17 0000 Signed Impressions: Service Date/Time: Wednesday, November 29, 2017 22:02 - CONCLUSION: Normal examination. Abdiel Mcintyre MD Renal Ultrasound 11/28/17 0000 Signed Impressions: Service Date/Time: Tuesday, November 28, 2017 20:30 - CONCLUSION: Nondiagnostic exam. Rashad Bose MD Objective Remarks GENERAL: Patient is 77 yo intubated lethargic SKIN: Warm and dry. HEAD: Normocephalic. Mild subcutaneous emphysema involving right side of face neck shoulder and arm. EYES: No scleral icterus. No injection or drainage. NECK: Supple, trachea midline. No JVD or lymphadenopathy. New trach without significant bleed CARDIOVASCULAR: S1-S2 irregularly irregular, tachycardic in 110-130 hypotensive , currently on Bertin-Synephrine at 100 mcg/min RESPIRATORY: On mechanical ventilation, air entry decreased bilaterally, scattered rhonchi bilaterally. R chest tube with 2+ airleak. Subcutaneous emphysema or right chest wall, neck, right face and right upper extremity. GASTROINTESTINAL: Abdomen soft, non-tender, nondistended. MUSCULOSKELETAL: Bilateral peripheral edema +2 Neuro: Patient is more lethargic not following commands slight withdrawal to pain, most likely encephalopathy secondary to new sepsis A/P Problem List: (1) A-fib ICD Code: I48.91 - Unspecified atrial fibrillation (2) CHF (congestive heart failure) ICD Code: I50.9 - Heart failure, unspecified Status: Chronic (3) HTN (hypertension) ICD Code: I10 - Essential (primary) hypertension Status: Chronic (4) ADRIAN (obstructive sleep apnea) ICD Code: G47.33 - Obstructive sleep apnea (adult) (pediatric) Status: Chronic (5) MRSA pneumonia ICD Code: J15.212 - Pneumonia due to Methicillin resistant Staphylococcus aureus Status: Acute (6) Diabetes mellitus type 2, insulin dependent ICD Code: E11.9 - Type 2 diabetes mellitus without complications; Z79.4 - longterm (current) use of insulin Status: Chronic (7) COPD (chronic obstructive pulmonary disease) ICD Code: J44.9 - Chronic obstructive pulmonary disease, unspecified Status: Acute (8) Respiratory distress ICD Code: R06.03 - Acute respiratory distress Status: Acute (9) Leukocytosis ICD Code: D72.829 - Elevated white blood cell count, unspecified Status: Acute (10) Lung consolidation ICD Code: J18.1 - Lobar pneumonia, unspecified organism Status: Acute (11) Anxiety ICD Code: F41.9 - Anxiety disorder, unspecified Status: Chronic (12) Failure to wean from mechanical ventilation ICD Code: Z99.11 - Dependence on respirator [ventilator] status Assessment and Plan Plan by systems: Neurologic: Encephalopathy, metabolic Anxiety Off sedation, monitor neuro status, worsening encephalopathy probably secondary to urosepsis Neuro checks per ICU protocol EEG: Mild- mod encephalopathy. Neuro is following- Dr. Anne. CT brain 12/08 no acute process Respiratory: Acute respiratory failure on mechanical ventilation- extubated and reintubated night of 11/18 after he was noted to choke on water provided by family. COPD exacerbation Pneumonia-MRSA, MDR Pseudomonas Right sided pneumothorax following CPR status post pigtail catheter/chest tube placement 11/27 Obstructive sleep apnea Home O2 dependency Continue with vent support keep sats >90%. s/p Trach 12/14/17 Attempt daily CPAP trials Bronchodilators, HC 50mg IV Q12 Pulmonology - Dr Price, Right sided chest tube in place. Continue 28 F right chest tube to -40 cm water pressure with underwater seal. Cardiovascular: Shock most likely septic Cardiac arrest - asystole, status post CPR 11/27 A. fib RVR History of CHF CAD Currently on Bertin-Synephrine 100 mcg/min to keep MAP>65mmHg. IV digoxin 0.25 mg 1 12/13, and scheduled digoxin Continue amiodarone PO. IV metoprolol as needed Lactic acid:2.2 on 12/07 Hydrocortisone 50mg IV [id number] weaning once hemodynamically more stable Atorvastatin 80 daily on hold for elevated LFT's Cardiology - Dr. Reyes. Echo showed EF 65-70% Renal: DAVID Monitor renal function, electrolytes replacement as needed Nephrology Dr. Ragland. 12/02 Vas-Cath placed for initiation of IHD . FEN/GI: Elevated LFT's GERD Monitor LFT's, US liver on 12/06: non diagnostic study US liver 12/09 limited study Hepatitis profile is negative On tube feeds On Nepro @40cc/hr. Pepcid for GI prophylaxis 12/03 PEG tube placement ID: Pneumonia MRSA, MDR Pseudomonas Leukocytosis Septic shock ID following- Antibiotics per ID (on Micafungin, Zerbaxa, Flagyl, Levaquin). Vancomycin restarted 12/16/2017 Repeat sputum culture blood culture and urine culture 12/16 Stool for C. difficile negative on 11/29 and 12/06 Pertinent cultures 12/14 Urine yeast 12/09 BC: NGTD 411 Urine cx: C. Glabrata 12/06 Sputum cx: Pseudomonas MDR 11/16 sputum cultures- Kleb pneumonia 11/26 sputum cultures growing multidrug resistant Pseudomonas/MRSA 11/28 urine culture growing yeast 11/26 blood culture neg Heme HIT antibody positive AUGUSTA negative. Argatroban discontinued by Dr. Quintana. Endocrine: Glucose monitoring per ICU protocol -- SSI(high scale) Levemir 5u Q12 Prophylaxis: GI Prophylaxis Famotidine BID -- SCDs Holding home dose Eliquis 5 mg BID on 11/27 in view of anticipated procedures, now with thrombocytopenia and renal failure Argatroban discontinued HIT AUGUSTA negative Start heparin subcu every 12 today 12/17/2017. May transition to IV heparin for full anticoagulation once platelet consistently above 90,000 Lines: Left IJ central line placed 11/29-DC 12/17. Left central line subclavian placed 12/16/17 Right IJ vascath 12/02 Palliative care is following CCT 35 min Remains critically ill with worsening shock and encephalopathy. Vancomycin added for probable worsening septic shock. Replace central line Problem Qualifiers (1) COPD (chronic obstructive pulmonary disease): Qualified Codes: J44.9 - Chronic obstructive pulmonary disease, unspecified (2) Leukocytosis: Qualified Codes: D72.829 - Elevated white blood cell count, unspecified Darwin Meadows MD Dec 17, 2017 09:18
[2017-12-17 09:22] LABS: CALCIUM-PROTEIN CORRECTED 7.4 MG/DL (8.5-10.1)
[2017-12-17 09:36] LABS: BANDS 6 % (0-6); LYMPHOCYTES 16 % (9-44); MONOCYTES 6 % (0-8); MYELOCYTES 1 % (0-0); NEUTROPHIL # MANUAL DIFF 12.6 TH/MM3 (1.8-7.7); POLYS (SEG NEUTROPHILS) 71 % (16-70)
[2017-12-17 09:37] LABS: OVALOCYTES 1+ (NORMAL); POLYCHROMASIA 2.2 % (0.0-1.9); TOXIC GRANULATION 1+ (NORMAL)
[2017-12-17] MEDS ORDERED: POTASSIUM CHLORIDE 25 MEQ EFFERVESCENT TAB PO ONE (11:00)
[2017-12-17] MEDS: HYDROCORTISONE SOD SUCCINATE 100 MG VIAL IV PUSH SCH ×2 (11:12→23:27)
[2017-12-17] MEDS: HEPARIN SODIUM - SQ 10,000 UNITS/ML VIAL SQ SCH ×2 (11:12→22:01)
[2017-12-17] MEDS ORDERED: CALCIUM GLUCONATE INJ 1 GM in SODIUM CHLORIDE 0.9% INJ 100 ML IV ONE (12:00)
[2017-12-17] MEDS: MANNITOL 12.5 GM/50 ML VIAL IV PRN (13:05)
[2017-12-17] MEDS: ALBUMIN 25% INJ 100 ML IV PRN ×2 (13:05→13:07)
[2017-12-17] MEDS: GENTAMICIN SULFATE 20 MG/2 ML VIAL OTHER PRN (13:06)
[2017-12-17] MEDS: EPOETIN ALFA 10,000 UNITS/ML VIAL IV PUSH PRN (13:06)
--- NOTE | 2017-12-17 13:19 | HHI.IDPN ---
Note Infectious Disease Note Patient is awake on the ventilator. He is responsive. Dialysis progress. T-max of 102 yesterday. Currently afebrile. Cultures pending. The repeat urine culture continues to have Nette glabrata. Repeat sputum culture had multiple resistant Pseudomonas aeruginosa. Urine culture from 12/08 had Nette. Previous urine culture on 11/28 had Nette glabrata. Patient was treated with Diflucan. Chest tube in place on the right due to pneumothorax. 77-year-old, white male who presents to the Emergency Department with shortness of breath. The patient has a history of COPD and CHF. He usually uses CPAP at the assisted living facility. He was noted to have been developing coughing and shortness of breath over the past couple of days, and his states that he was coughing a lot yesterday and bringing up mostly phlegm and that he was restless and could not sleep. Recent treatment at [facility] for pneumonia due to methicillin-resistant Staphylococcus aureus. PAST MEDICAL HISTORY: COPD, CHF, atrial fibrillation, insulin-dependent diabetes mellitus, hypertension, hyperlipidemia, gastroesophageal reflux, gastroparesis, iron deficiency anemia, oxygen-dependent. PAST SURGICAL HISTORY: Right knee surgery, right carpal tunnel release, cardiac ablation treatment 2002. ALLERGIES: ASPIRIN, CODEINE. MEDICATIONS: Current Medications Medications (Trade) Dose Ordered Sig/Yani Route PRN Reason Start Time Stop Time Status Last Admin Dose Admin Sodium Chloride (NS Flush) 2 ml UNSCH PRN IV FLUSH FLUSH AFTER USING IV ACCESS 11/14/17 15:45 11/17/17 14:05 Sodium Chloride (NS Flush) 2 ml BID IV FLUSH 11/14/17 21:00 12/17/17 08:09 Ondansetron HCl (Zofran Inj) 4 mg Q6H PRN IV PUSH NAUSEA OR VOMITING 11/14/17 15:45 11/18/17 16:03 Miscellaneous Information 1 Q361D XX 11/14/17 15:45 11/14/17 15:45 Chlorhexidine Gluconate (Chlorhexidine 2% Cloth) Taper DAILY@04 TOP 11/15/17 04:00 11/11/18 03:59 12/17/17 04:00 Chlorhexidine Gluconate (Chlorhexidine 2% Cloth) 3 pack UNSCH PRN TOP HYGIENIC CARE 11/14/17 15:45 Senna/Docusate Sodium (Ricarda-Colace) 1 tab BID PO 11/14/17 21:00 12/16/17 20:28 Magnesium Hydroxide (Milk Of Magnesia Liq) 30 ml Q12H PRN PO Mild constipation 11/14/17 15:45 Sennosides (Senokot) 17.2 mg Q12H PRN PO Moderate constipation 11/14/17 15:45 Bisacodyl (Dulcolax Supp) 10 mg DAILY PRN RECTAL SEVERE CONSITIPATION 11/14/17 15:45 Lactulose (Lactulose Liq) 30 ml DAILY PRN PO SEVERE CONSITIPATION 11/14/17 15:45 Apixaban (Eliquis) 5 mg BID PO 11/14/17 21:00 Future Hold 11/27/17 20:17 Atorvastatin Calcium (Lipitor) 80 mg HS PO 11/14/17 21:00 Future Hold 12/05/17 19:49 Digoxin (Lanoxin) 0.125 mg DAILY PO 11/15/17 09:00 Future Hold 11/17/17 08:24 Diltiazem HCl (Cardizem) 60 mg QID PO 11/14/17 18:00 Future Hold 12/06/17 08:44 Patient Own Medication PT OWN MED: [facility]... HS INH 11/14/17 21:00 Future Hold Hydralazine HCl (Apresoline Inj) 20 mg Q4H PRN IV PUSH SYS BP GREATER THAN 160 MMHG 11/17/17 12:00 11/22/17 07:38 Budesonide/ Formoterol Fumarate (Symbicort 160-4.5 Mcg Inh) 2 puff Q12HR INH 11/18/17 21:00 12/17/17 08:09 Chlorhexidine Gluconate (Peridex 0.12% Liq) 15 ml BID@08,20 MT 11/19/17 08:00 12/17/17 08:00 Albuterol/ Ipratropium (Duoneb Neb) 1 ampule Q2HR NEB PRN INH WHEEZING 11/18/17 22:30 12/17/17 07:19 Famotidine (Pepcid) 10 mg BID PO 11/22/17 21:00 12/17/17 08:09 Insulin Aspart (NovoLOG SUPPLEMENTAL SCALE) 1 Q4HR SQ 11/26/17 16:00 12/17/17 08:00 Dextrose (D50w (Vial) Inj) 25 ml UNSCH PRN IV HYPOGLYCEMIA-SEE COMMENTS 11/26/17 15:30 12/04/17 01:18 Glucagon (Glucagon Inj) 1 mg UNSCH PRN IM/SQ HYPOGLYCEMIA-SEE COMMENTS 11/26/17 15:30 Fentanyl Citrate 250 ml @ 5 mls/hr TITRATE PRN IV SEDATION 11/27/17 13:45 12/03/17 08:58 Metoprolol Tartrate (Lopressor Inj) 5 mg Q6H PRN IV PUSH heart rate greater than 135/mi 11/29/17 09:15 Sodium Chloride 1,000 ml @ 0 mls/hr Q0M PRN OTHER For Prime & Rinse Back 12/02/17 09:30 12/08/17 16:50 Heparin Sodium (Porcine) (Heparin Inj) 8,000 units UNSCH PRN IV FLUSH WITH DIALYSIS 12/02/17 09:30 Sodium Chloride 1,000 ml @ 200 mls/hr Q5H PRN IV WITH DIALYSIS 12/02/17 09:30 Sodium Chloride 1,000 ml @ 0 mls/hr Q0M PRN OTHER WITH DIALYSIS 12/02/17 09:30 Mannitol (Mannitol Inj) 12.5 gm UNSCH PRN IV WITH DIALYSIS 12/02/17 09:30 12/17/17 13:05 Albumin Human 100 ml @ 60 mls/hr UNSCH PRN IV WITH DIALYSIS 12/02/17 09:30 12/17/17 13:07 Sodium Chloride (NS Flush) 5 ml UNSCH PRN IV FLUSH WITH DIALYSIS 12/02/17 09:30 12/08/17 16:51 Heparin Sodium (Porcine) (Heparin Inj) UNSCH PRN .XX WITH DIALYSIS 12/02/17 09:30 12/08/17 16:50 Gentamicin Sulfate (Gentamicin Inj) 20 mg UNSCH PRN OTHER WITH DIALYSIS 12/02/17 09:30 12/17/17 13:06 Ondansetron HCl (Zofran Inj) 4 mg UNSCH PRN IV PUSH WITH DIALYSIS 12/02/17 09:30 Acetaminophen (Tylenol) 650 mg UNSCH PRN PO for headach, pain, temp > 101F 12/02/17 09:30 12/16/17 19:06 Diphenhydramine HCl (Benadryl) 25 mg UNSCH PRN PO for hives/itching/anaphylaxis 12/02/17 09:30 Nitroglycerin (Nitrostat Sl) 0.4 mg UNSCH PRN SL CHEST PAIN 12/02/17 09:30 Clonidine (Catapres) 0.1 mg UNSCH PRN PO for BP > 180/100 X 2 readings 12/02/17 09:30 Epoetin Kvng (Epogen Inj) 4,000 units UNSCH PRN IV PUSH WITH DIALYSIS 12/02/17 09:30 12/17/17 13:06 Gelatin (Gelfoam 12 Mm/7 Mm Top) 1 foam UNSCH PRN TOP SEE LABEL COMMENTS 12/02/17 09:30 Sodium Chloride (NS Flush) UNSCH PRN IV FLUSH SEE PROTOCOL 12/02/17 11:15 Heparin Sodium (Porcine) (Heparin Inj) UNSCH PRN IV FLUSH SEE PROTOCOL 12/02/17 11:15 Micafungin Sodium 150 mg/Sodium Chloride 100 ml @ 100 mls/hr Q24H IV 12/06/17 12:00 12/16/17 12:59 Hydrocortisone Sodium Succinate (SoluCORTEF INJ) 50 mg Q12H IV PUSH 12/07/17 23:00 12/17/17 11:12 Insulin Detemir (Levemir Inj) 5 units Q12HR SQ 12/07/17 12:00 12/17/17 08:10 Lanthanum Carbonate (Fosrenol Chew) 500 mg TID CHEW 12/07/17 18:00 12/17/17 08:09 Calcitriol (Rocaltrol) 0.5 mcg DAILY PO 12/08/17 09:00 12/17/17 08:10 Ceftolozane/ Tazobactam 150 mg/ Sodium Chloride 100 ml @ 100 mls/hr Q8H IV 12/08/17 23:00 12/17/17 06:18 Levofloxacin/ Dextrose 50 ml @ 50 mls/hr Q24H IV 12/08/17 16:00 12/16/17 18:21 Metronidazole (Flagyl) 500 mg Q6HR PO 12/10/17 13:30 12/17/17 05:31 Phenylephrine HCl 160 mg/Dextrose 500 ml @ 7.5 mls/hr TITRATE PRN IV Blood pressure management 12/10/17 19:30 12/16/17 18:16 Terbutaline Sulfate (Brethine Inj) 1 mg UNSCH PRN SQ For Extravasation 12/10/17 19:30 Amiodarone HCl 450 mg/Sodium Chloride 250 ml @ 33.33 mls/ hr Q7H31M PRN IV Per Protocol 12/13/17 12:30 12/14/17 23:52 Amiodarone HCl (Cordarone) 200 mg Q12HR PO 12/15/17 14:00 12/17/17 08:09 Morphine Sulfate (Morphine Inj) 1 mg Q4H PRN IV PUSH PAIN SCALE 1 TO 10 12/15/17 19:45 Pharmacy Profile Note 0 ml @ 0 mls/hr UNSCH OTHER 12/16/17 11:30 Norepinephrine Bitartrate 4 mg/ Sodium Chloride 250 ml @ 7.5 mls/hr TITRATE PRN IV Blood pressure management 12/16/17 12:00 Terbutaline Sulfate (Brethine Inj) 1 mg UNSCH PRN SQ For Extravasation 12/16/17 12:00 Heparin Sodium (Porcine) (Heparin Inj) 5,000 units Q12H SQ 12/17/17 10:00 12/17/17 11:12 OBJECTIVE: Vital Signs Date Time Temp Pulse Resp B/P (MAP) Pulse Ox O2 Delivery O2 Flow Rate FiO2 12/17/17 11:38 100 40 12/17/17 10:00 97.7 113 18 96/51 (66) 100 12/17/17 10:00 118 12/17/17 08:00 35 12/17/17 08:00 123 12/17/17 07:10 98 35 12/17/17 06:18 112 117/66 12/17/17 06:00 119 12/17/17 05:30 119 97/60 12/17/17 04:00 98.4 95 20 122/73 (89) 100 12/17/17 04:00 95 12/17/17 04:00 35 12/17/17 03:44 100 35 12/17/17 02:00 96 12/17/17 01:30 97 122/78 12/17/17 00:00 103 12/17/17 00:00 99.1 105 20 117/57 (77) 100 12/17/17 00:00 35 12/16/17 23:55 100 50 4/19/18 22:00 104 4/19/18 20:00 100 4/19/18 20:00 35 4/19/18 19:27 100 35 4/19/18 19:20 100 4/19/18 19:10 101 419/18 19:02 109 4/19/18 19:00 107 419/18 18:50 108 4/19/18 18:40 107 4/18 18:30 105 4/18 18:20 103 418 18:16 101 109/62 419/18 18:10 101 12/16/18 18:05 101 109/62 419/18 18:00 104 12/16/18 16:40 100 35 19/18 16:12 101 12/16/18 16:12 101 26 117/69 (85) 100 4/18 16:00 102.2 103 17 100 4/18 16:00 103 4/18 16:00 35 12/16/18 15:46 109 20 75/50 (58) 100 419/18 15:46 109 4/19/18 15:10 100 4/19/18 15:10 100 20 104/57 (73) 100 4/19/18 15:00 96 4//18 15:00 96 23 147/73 (97) 100 419/18 14:51 99 40 134/74 (94) 85 4/19/18 14:51 99 4/19/18 14:40 93 20 176/86 (116) 100 4/19/18 14:40 93 4/19/18 14:30 93 20 176/86 (116) 100 4/19/18 14:30 93 4/19/18 14:20 95 4/19/18 14:20 95 20 175/89 (117) 100 4/19/18 14:10 95 20 172/87 (115) 100 4/19/18 14:10 95 4/19/18 14:00 95 4/19/18 14:00 95 20 166/83 (110) 100 419/18 13:50 96 20 164/87 (112) 419/18 13:50 96 4/19/18 13:40 97 20 140/75 (96) 100 419/18 13:40 97 Laboratory Tests Test 12/16/17 04:55 12/17/17 08:33 White Blood Count 13.0 TH/MM3 16.2 TH/MM3 Red Blood Count 3.64 MIL/MM3 3.91 MIL/MM3 Hemoglobin 10.2 GM/DL 10.9 GM/DL Hematocrit 32.6 % 34.5 % Mean Corpuscular Volume 89.6 FL 88.3 FL Mean Corpuscular Hemoglobin 28.1 PG 27.9 PG Mean Corpuscular Hemoglobin Concent 31.3 % 31.6 % Red Cell Distribution Width 18.4 % 18.4 % Platelet Count 64 TH/MM3 66 TH/MM3 Mean Platelet Volume 9.6 FL 9.3 FL CBC Comment AUTO DIFF AUTO DIFF Differential Total Cells Counted 100 100 Neutrophils % (Manual) 85 % 71 % Band Neutrophils % 7 % 6 % Lymphocytes % 4 % 16 % Monocytes % 4 % 6 % Neutrophils # (Manual) 12.0 TH/MM3 12.6 TH/MM3 Nucleated Red Blood Cells 1 /100 WBC Differential Comment FINAL DIFF MANUAL FINAL DIFF MANUAL Platelet Estimate LOW LOW Platelet Morphology Comment NORMAL ENLARGED Polychromasia 2.3 % 2.2 % Basophilic Stippling FAINT Ovalocytes 1+ 1+ Neutrophils (%) (Auto) 85.3 % Lymphocytes (%) (Auto) 8.8 % Monocytes (%) (Auto) 5.7 % Eosinophils (%) (Auto) 0.0 % Basophils (%) (Auto) 0.2 % Neutrophils # (Auto) 13.8 TH/MM3 Lymphocytes # (Auto) 1.4 TH/MM3 Monocytes # (Auto) 0.9 TH/MM3 Eosinophils # (Auto) 0.0 TH/MM3 Basophils # (Auto) 0.0 TH/MM3 Myelocytes 1 % Toxic Granulation 1+ Laboratory Tests Test 12/15/17 15:15 12/16/17 04:55 12/17/17 08:33 Potassium Level 3.9 MEQ/L 4.0 MEQ/L 2.7 MEQ/L Blood Urea Nitrogen 54 MG/DL 73 MG/DL Creatinine 2.02 MG/DL 2.15 MG/DL Random Glucose 216 MG/DL 226 MG/DL Total Protein 5.6 GM/DL 4.2 GM/DL Albumin 3.7 GM/DL 2.5 GM/DL Calcium Level 7.5 MG/DL 6.0 MG/DL Magnesium Level 2.0 MG/DL Alkaline Phosphatase 435 U/L 317 U/L Aspartate Amino Transf (AST/SGOT) 27 U/L 21 U/L Alanine Aminotransferase (ALT/SGPT) 32 U/L 24 U/L Total Bilirubin 0.8 MG/DL 0.7 MG/DL Sodium Level 143 MEQ/L 142 MEQ/L Chloride Level 105 MEQ/L 110 MEQ/L Carbon Dioxide Level 29.2 MEQ/L 22.1 MEQ/L Anion Gap 9 MEQ/L 10 MEQ/L Estimat Glomerular Filtration Rate 32 ML/MIN 30 ML/MIN Protein Corrected Calcium 7.4 MG/DL Microbiology Date/Time Source Procedure Growth Status 12/16/17 15:20 Blood Peripheral Aerobic Blood Culture - Preliminary NO GROWTH IN 1 DAY Resulted 12/16/17 15:20 Blood Peripheral Anaerobic Blood Culture - Preliminary NO GROWTH IN 1 DAY Resulted 12/16/17 15:05 Blood Peripheral Aerobic Blood Culture - Preliminary NO GROWTH IN 1 DAY Resulted 12/16/17 15:05 Blood Peripheral Anaerobic Blood Culture - Final QNS - SEE AEROBE REPORT Resulted 12/16/17 12:15 Sputum Endotracheal Gram Stain - Final Resulted 12/16/17 12:15 Sputum Endotracheal Sputum Culture - Preliminary LIGHT GROWTH NORMAL RESPIRATORY STEFANO... Resulted 12/16/17 12:57 Urine Catheterized Urine Urine Culture Pending Received 12/17/17 09:50 Catheter Tip Arterial Line Wound Culture Pending Received Imaging: Chest X-Ray 12/17/17 0000 Signed Impressions: Service Date/Time: Sunday, December 17, 2017 08:12 - CONCLUSION: 1. No significant 24-hour interval change. 2. Stable tubes and lines. 3. Stable right chest tube with stable small right pneumothorax and subcutaneous emphysema. 4. Stable left lower lobe patchy airspace disease. Anil Aldana MD Chest X-Ray 12/16/17 0600 Signed Impressions: Service Date/Time: November 04:43 - CONCLUSION: No significant change bibasilar atelectasis and small right pneumothorax. Right chest tube remains in place. Abdiel Vidales MD PHYSICAL EXAMINATION: GENERAL: Sedated. Awake. HEENT: No icterus. Moist mucosa. NECK: No swelling or adenopathy. LUNGS: Decreased breath sounds. HEART: Irregular S1 and S2. No murmurs, rubs or gallops. ABDOMEN: Bowel sounds present, obese, soft. Non tender. EXTREMITIES: 2+ diffuse edema. Cyanosis at the tips of the toes. The feet are warm. SKIN: No diffuse rash. NEUROLOGIC: Nonfocal. PSYCHIATRIC: Sedated. IMPRESSION: 1. New fever. Cultures pending. 2. Sepsis. 3. Pneumonia - Pseudomonas MDR. Latest sputum culture - Pseudomonas. Could be colonization. However with his seriously ill clinical condition he may have ongoing pneumonia. 4. Acute respiratory failure. Vent dependent. Extubated previously and appears to have aspirated. 5. Leukocytosis. White blood cell count decreasing. 6. Nette glabrata UTI. Persistent despite management with Diflucan. Repeat urine still positive Last urine culture on 12/14 had Nette glabrata. 6. Right-sided pneumothorax. Subcutaneous emphysema. 7. History of chronic obstructive pulmonary disease and recent chronic obstructive pulmonary disease exacerbation. 8. Renal failure. Receiving hemodialysis. 9. Elevated liver function tests. LFTs down to normal. RECOMMENDATIONS: 1. Continue vancomycin. 2. Continue Micafungin. Patient has been on broad-spectrum antibiotics in ICU with kidney failure and central line and has potential for systemic fungal infection. 3. Monitor blood, sputum and urine culture 4. Continue Zerbaxa for pneumonia. 5. Continue Levaquin. 6. Continue metronidazole. 7. Monitor white blood cell count. Antibiotic adjustments depending on cultures and clinical status. Tom Long MD Dec 17, 2017 13:19
--- NOTE | 2017-12-17 16:09 | HHI.HCPN ---
Reason for visit a. To assist with evaluation and management of symptoms including: Dyspnea, pain, encephalopathy, fever b. To assist medical decision maker(s) with: better understanding of current medical conditions; weighing benefits/burdens of medical treatment options; making medical treatment decisions. Subjective/Interval History Patient seen to follow-up on symptoms of dyspnea, pain, encephalopathy and fever. He has been febrile to a T-MAX of 102.2 in the last 24 hours. He remains in atrial fibrillation with rapid ventricular response. Patient is encephalopathic and is unable to respond to questions regarding chills, wheezes. He is currently receiving Zerbaxa, Levaquin, Flagyl, micafungin and vancomycin has now been added for worsening septic shock. His urine specimen shows continued Nette glabrata, despite doses of Diflucan and micafungin. Previous sputum cultures growing Klebsiella pneumonia and multidrug resistant Pseudomonas/MRSA, sputum culture 12/16 shows light growth of normal respiratory fritz. Left IJ central line has been removed and sent for culture, new right IJ central line has been placed. Today's labs show an elevated WBC count of 16.2. He remains thrombocytopenic with platelet count of 66, thought to be related to sepsis. HIT panel resulted showing AUGUSTA was negative so argatroban was discontinued and patient is now on subcutaneous heparin. With the worsening infection, he becomes increasingly encephalopathic. He had previously been able to make eye contact, track and nod to yes/no questions. Today he stares straight ahead and does not turn to voice or track examiner. His states that he is interactive with her. He is now hypotensive, currently receiving hemodialysis on 300 mcg of Bertin-Synephrine to maintain MAP greater than 65. He remains on mechanical ventilation via tracheostomy and is requiring increased oxygen support on ventilator 40%/550/18/5. He did not undergo CPAP trial today due to worsening hemodynamic status. He tolerated spontaneous breathing trial for 5 minutes yesterday secondary to apnea. He continues to receive nebulizer treatments. He has a 28 Faroese chest tube to -40 cm of water pressure placed 11/27 to right lung with repositioning on 11/29 and continues to have a residual pneumothorax with extensive crepitus per today's chest x-ray. Lung sounds include wheezes and bibasilar crackles. He is receiving hemodialysis for fluid management due to ARF, however is able to have limited fluid removal secondary to hypotension in spite of mannitol and albumin. CVVH is being considered due to his chronic hypotension requiring vasopressors. Toes on both feet show purpling from hypoperfusion. He has multiple sources for potential pain. He has multiple wounds to include open areas on bilateral lower extremities, denuded secondary to edematous blisters, sacral and buttocks decubiti and widespread bruising/ecchymosis. He has a long-standing right chest tube, tracheostomy, PEG tube, multiple invasive lines. He is unable to make his needs known due to his worsening encephalopathy. He does have morphine 1 mg every 4 hours as needed available however none has been given. . Family/friend interactions Family is away from bedside at this time as patient is undergoing dialysis. . Advance Directives Living Will: Never completed Health Care Surrogate: Never completed Durable Power of Supervisor [employer]: Never completed Advance Directive Specifics Health Care Surrogate(s): Never completed. is healthcare proxy supported by son who would be the next tier hierarchy of [place] statutes. . Documented care wishes: No living will completed. Objective Vital Signs Date Time Temp Pulse Resp B/P (MAP) Pulse Ox O2 Delivery O2 Flow Rate FiO2 12/17/17 13:15 113 15 109/61 (77) 100 12/17/17 13:15 113 12/17/17 13:00 112 18 112/56 (74) 100 12/17/17 13:00 112 12/17/17 12:45 101 8 135/71 (92) 100 12/17/17 12:45 101 12/17/17 12:30 104 15 117/69 (85) 100 12/17/17 12:30 104 12/17/17 12:20 113 12/17/17 12:20 113 14 111/74 (86) 100 12/17/17 12:15 105 12/17/17 12:15 105 18 100/74 (83) 100 12/17/17 12:10 107 18 108/69 (82) 100 12/17/17 12:10 107 12/17/17 12:05 114 12/17/17 12:05 114 15 110/71 (84) 100 12/17/17 12:00 40 12/17/17 12:00 119 12/17/17 12:00 98.9 119 6 88/52 (64) 100 12/17/17 11:38 100 40 4/20/18 10:00 97.7 113 18 96/51 (66) 100 18 10:00 118 12/17/18 08:00 35 18 08:00 123 18 07:10 98 35 20/18 06:18 112 117/66 12/17/18 06:00 119 20/18 05:30 119 97/60 18 04:00 98.4 95 20 122/73 (89) 100 18 04:00 95 18 04:00 35 18 03:44 100 35 12/17/18 02:00 96 18 01:30 97 122/78 12/17/17 00:00 103 12/17/17 00:00 99.1 105 20 117/57 (77) 100 18 00:00 35 12/16/18 23:55 100 50 12/16/18 22:00 104 18 20:00 100 18 20:00 35 18 19:27 100 35 19/18 19:20 100 19/18 19:10 101 19/18 19:02 109 12/16/18 19:00 107 12/16/18 18:50 108 12/16/18 18:40 107 12/16/18 18:30 105 12/16/18 18:20 103 12/16/18 18:16 101 109/62 19/18 18:10 101 19/18 18:05 101 109/62 19/18 18:00 104 18 16:40 100 35 19/18 16:12 101 19/18 16:12 101 26 117/69 (85) 100 12/16/18 16:00 102.2 103 17 100 12/16/18 16:00 103 12/16/18 16:00 35 12/16/18 15:46 109 20 75/50 (58) 100 12/16/18 15:46 109 Intake & Output 12/17/18 12/17/17 07:00 19:00 Intake Total 1085 ml 200 ml Output Total 100 ml Balance 985 ml 200 ml IV Total 459 ml 200 ml Tube Feeding 506 ml Other 120 ml Output Urine Total 40 ml Chest Tube Drainage Total 60 ml # Bowel Movements 2 Physical Exam CONSTITUTIONAL/GENERAL: This is an adequately nourished patient, in no apparent distress. TUBES/LINES/DRAINS: Tracheostomy tube, open areas, right subclavian, right IJ Vas-Cath, Haynes SKIN: Multiple areas of ecchymosis with blistering and weeping edema on lower extremities on bilateral lower extremity from ruptured denuded blisters. HEAD: Atraumatic. Normocephalic. EYES: Pupils equal and round and reactive. No scleral icterus. No injection or drainage. Fundi not examined. CARDIOVASCULAR: Irregular rhythm, tachycardic rate, no rub murmur or gallop. No JVD. RESPIRATORY/CHEST: Mechanically ventilated, symmetric chest rise with decreased air entry, rare wheeze, extensive crepitus. Chest tube with 1+ air leak, -40 suction. GASTROINTESTINAL: Abdomen soft, nondistended, obese. Bowel sounds hypoactive. PEG intact. GENITOURINARY: Without palpable bladder distension. Haynes catheter in place. MUSCULOSKELETAL: Extremities with diffuse mottling. 3+ dependent, weeping edema. NEUROLOGICAL: Tracheostomy, unsedated, not following commands. PSYCHIATRIC: Unresponsive . Diagnostic Tests Laboratory Laboratory Tests Test 12/15/17 04:45 12/15/17 15:15 12/15/17 20:45 12/15/17 23:20 White Blood Count 13.3 TH/MM3 (4.0-11.0) Red Blood Count 3.49 MIL/MM3 (4.50-5.90) Hemoglobin 9.8 GM/DL (13.0-17.0) Hematocrit 30.2 % (39.0-51.0) Mean Corpuscular Volume 86.4 FL (80.0-100.0) Mean Corpuscular Hemoglobin 28.1 PG (27.0-34.0) Mean Corpuscular Hemoglobin Concent 32.6 % (32.0-36.0) Red Cell Distribution Width 17.6 % (11.6-17.2) Platelet Count 49 TH/MM3 (150-450) Mean Platelet Volume 9.4 FL (7.0-11.0) Neutrophils (%) (Auto) 79.1 % (16.0-70.0) Lymphocytes (%) (Auto) 15.0 % (9.0-44.0) Monocytes (%) (Auto) 5.7 % (0.0-8.0) Eosinophils (%) (Auto) 0.1 % (0.0-4.0) Basophils (%) (Auto) 0.1 % (0.0-2.0) Neutrophils # (Auto) 10.5 TH/MM3 (1.8-7.7) Lymphocytes # (Auto) 2.0 TH/MM3 (1.0-4.8) Monocytes # (Auto) 0.8 TH/MM3 (0-0.9) Eosinophils # (Auto) 0.0 TH/MM3 (0-0.4) Basophils # (Auto) 0.0 TH/MM3 (0-0.2) CBC Comment AUTO DIFF Differential Total Cells Counted 100 Neutrophils % (Manual) 80 % (16-70) Band Neutrophils % 6 % (0-6) Lymphocytes % 11 % (9-44) Monocytes % 3 % (0-8) Neutrophils # (Manual) 11.4 TH/MM3 (1.8-7.7) Nucleated Red Blood Cells 1 /100 WBC (0-0) Differential Comment FINAL DIFF MANUAL Platelet Estimate LOW (NORMAL) Platelet Morphology Comment NORMAL (NORMAL) Polychromasia 2.9 % (0.0-1.9) Basophilic Stippling MOD (NORMAL) Jos Cells 1+ (NORMAL) Fibrinogen 353 mg/dL (227-377) Blood Urea Nitrogen 50 MG/DL (7-18) Creatinine 2.10 MG/DL (0.60-1.30) Random Glucose 168 MG/DL (74-106) Total Protein 5.4 GM/DL (6.4-8.2) Albumin 3.3 GM/DL (3.4-5.0) Calcium Level 7.8 MG/DL (8.5-10.1) Magnesium Level 1.8 MG/DL (1.5-2.5) Alkaline Phosphatase 449 U/L (45-117) Aspartate Amino Transf (AST/SGOT) 42 U/L (15-37) Alanine Aminotransferase (ALT/SGPT) 34 U/L (12-78) Total Bilirubin 1.0 MG/DL (0.2-1.0) Sodium Level 142 MEQ/L (136-145) Potassium Level 2.7 MEQ/L (3.5-5.1) 3.9 MEQ/L (3.5-5.1) Chloride Level 104 MEQ/L (98-107) Carbon Dioxide Level 29.3 MEQ/L (21.0-32.0) Anion Gap 9 MEQ/L (5-15) Estimat Glomerular Filtration Rate 31 ML/MIN (>89) Activated Partial Thromboplast Time 27.0 SEC (24.3-30.1) 46.0 SEC (24.3-30.1) 52.6 SEC (24.3-30.1) Test 12/16/17 04:55 12/16/17 08:50 12/17/17 04:23 12/17/17 08:33 White Blood Count 13.0 TH/MM3 (4.0-11.0) 16.2 TH/MM3 (4.0-11.0) Red Blood Count 3.64 MIL/MM3 (4.50-5.90) 3.91 MIL/MM3 (4.50-5.90) Hemoglobin 10.2 GM/DL (13.0-17.0) 10.9 GM/DL (13.0-17.0) Hematocrit 32.6 % (39.0-51.0) 34.5 % (39.0-51.0) Mean Corpuscular Volume 89.6 FL (80.0-100.0) 88.3 FL (80.0-100.0) Mean Corpuscular Hemoglobin 28.1 PG (27.0-34.0) 27.9 PG (27.0-34.0) Mean Corpuscular Hemoglobin Concent 31.3 % (32.0-36.0) 31.6 % (32.0-36.0) Red Cell Distribution Width 18.4 % (11.6-17.2) 18.4 % (11.6-17.2) Platelet Count 64 TH/MM3 (150-450) 66 TH/MM3 (150-450) Mean Platelet Volume 9.6 FL (7.0-11.0) 9.3 FL (7.0-11.0) CBC Comment AUTO DIFF AUTO DIFF Differential Total Cells Counted 100 100 Neutrophils % (Manual) 85 % (16-70) 71 % (16-70) Band Neutrophils % 7 % (0-6) 6 % (0-6) Lymphocytes % 4 % (9-44) 16 % (9-44) Monocytes % 4 % (0-8) 6 % (0-8) Neutrophils # (Manual) 12.0 TH/MM3 (1.8-7.7) 12.6 TH/MM3 (1.8-7.7) Nucleated Red Blood Cells 1 /100 WBC (0-0) Differential Comment FINAL DIFF MANUAL FINAL DIFF MANUAL Platelet Estimate LOW (NORMAL) LOW (NORMAL) Platelet Morphology Comment NORMAL (NORMAL) ENLARGED (NORMAL) Polychromasia 2.3 % (0.0-1.9) 2.2 % (0.0-1.9) Basophilic Stippling FAINT (NORMAL) Ovalocytes 1+ (NORMAL) 1+ (NORMAL) Activated Partial Thromboplast Time 56.1 SEC (24.3-30.1) Fibrinogen 368 mg/dL (227-377) Blood Urea Nitrogen 54 MG/DL (7-18) 73 MG/DL (7-18) Creatinine 2.02 MG/DL (0.60-1.30) 2.15 MG/DL (0.60-1.30) Random Glucose 216 MG/DL (74-106) 226 MG/DL (74-106) Total Protein 5.6 GM/DL (6.4-8.2) 4.2 GM/DL (6.4-8.2) Albumin 3.7 GM/DL (3.4-5.0) 2.5 GM/DL (3.4-5.0) Calcium Level 7.5 MG/DL (8.5-10.1) 6.0 MG/DL (8.5-10.1) Magnesium Level 2.0 MG/DL (1.5-2.5) Alkaline Phosphatase 435 U/L (45-117) 317 U/L (45-117) Aspartate Amino Transf (AST/SGOT) 27 U/L (15-37) 21 U/L (15-37) Alanine Aminotransferase (ALT/SGPT) 32 U/L (12-78) 24 U/L (12-78) Total Bilirubin 0.8 MG/DL (0.2-1.0) 0.7 MG/DL (0.2-1.0) Sodium Level 143 MEQ/L (136-145) 142 MEQ/L (136-145) Potassium Level 4.0 MEQ/L (3.5-5.1) 2.7 MEQ/L (3.5-5.1) Chloride Level 105 MEQ/L (98-107) 110 MEQ/L (98-107) Carbon Dioxide Level 29.2 MEQ/L (21.0-32.0) 22.1 MEQ/L (21.0-32.0) Anion Gap 9 MEQ/L (5-15) 10 MEQ/L (5-15) Estimat Glomerular Filtration Rate 32 ML/MIN (>89) 30 ML/MIN (>89) Blood Gas Puncture Site RT RADIAL Blood Gas Patient Temperature 98.6 Blood Gas HCO3 24 mmol/L (22-26) Blood Gas Base Excess -0.4 mmol/L (-2-2) Blood Gas Oxygen Saturation 95 % (90-100) Arterial Blood pH 7.38 (7.380-7.420) Arterial Blood Partial Pressure CO2 42 mmHg (38-42) Arterial Blood Partial Pressure O2 108 mmHg (61-120) Arterial Blood Oxygen Content 14.4 Vol % (12.0-20.0) Arterial Blood Carboxyhemoglobin 1.7 % (0-4) Arterial Blood Methemoglobin 1.4 % (0-2) Blood Gas Hemoglobin 10.6 G/DL (12.0-16.0) Oxygen Delivery Device VENTILATOR Blood Gas Ventilator Setting AC20/600/+5 Blood Gas Inspired Oxygen 35 % Random Vancomycin Level 25.2 COMMENT Neutrophils (%) (Auto) 85.3 % (16.0-70.0) Lymphocytes (%) (Auto) 8.8 % (9.0-44.0) Monocytes (%) (Auto) 5.7 % (0.0-8.0) Eosinophils (%) (Auto) 0.0 % (0.0-4.0) Basophils (%) (Auto) 0.2 % (0.0-2.0) Neutrophils # (Auto) 13.8 TH/MM3 (1.8-7.7) Lymphocytes # (Auto) 1.4 TH/MM3 (1.0-4.8) Monocytes # (Auto) 0.9 TH/MM3 (0-0.9) Eosinophils # (Auto) 0.0 TH/MM3 (0-0.4) Basophils # (Auto) 0.0 TH/MM3 (0-0.2) Myelocytes 1 % (0-0) Toxic Granulation 1+ (NORMAL) Protein Corrected Calcium 7.4 MG/DL (8.5-10.1) Result Diagram: 12/17/1733 12/17/1733 Microbiology Microbiology Date/Time Source Procedure Growth Status 12/16/17 15:20 Blood Peripheral Aerobic Blood Culture - Preliminary NO GROWTH IN 1 DAY Resulted 12/16/17 15:20 Blood Peripheral Anaerobic Blood Culture - Preliminary NO GROWTH IN 1 DAY Resulted 12/16/17 15:05 Blood Peripheral Aerobic Blood Culture - Preliminary NO GROWTH IN 1 DAY Resulted 12/16/17 15:05 Blood Peripheral Anaerobic Blood Culture - Final QNS - SEE AEROBE REPORT Resulted 12/16/17 12:15 Sputum Endotracheal Gram Stain - Final Resulted 12/16/17 12:15 Sputum Endotracheal Sputum Culture - Preliminary LIGHT GROWTH NORMAL RESPIRATORY FRITZ... Resulted 12/16/17 12:57 Urine Catheterized Urine Urine Culture - Final Nette Glabrata Complete 12/17/17 09:50 Catheter Tip Arterial Line Wound Culture Pending Received Imaging Last Impressions Chest X-Ray 12/17/17 0000 Signed Impressions: Service Date/Time: Sunday, December 17, 2017 08:12 - CONCLUSION: 1. No significant 24-hour interval change. 2. Stable tubes and lines. 3. Stable right chest tube with stable small right pneumothorax and subcutaneous emphysema. 4. Stable left lower lobe patchy airspace disease. Anil Aldana MD Liver Ultrasound 12/09/17 0000 Signed Impressions: Service Date/Time: November 19:18 - CONCLUSION: 1. Limited suboptimal examination with only a small portion of the liver visualized. 2. The gallbladder and common bile duct could not be visualized. The pancreas is not evaluated. 3. Left pleural effusion. Liang Jimenez MD Head CT 12/08/17 0000 Signed Impressions: Service Date/Time: Friday, December 08, 2017 08:25 - CONCLUSION: Negative for acute process. Torin Dennison MD FACR Catheter Placement X-Ray 12/02/17 0000 Signed Impressions: Service Date/Time: November 10:47 - CONCLUSION: Uncomplicated right internal jugular Vas-Cath placement as above. incidental note is made of subcutaneous emphysema within the chest wall and neck Con Dennison MD Lower Extremity Ultrasound 11/29/17 0000 Signed Impressions: Service Date/Time: Wednesday, November 29, 2017 22:02 - CONCLUSION: Normal examination. Abdiel Mcintyre MD Renal Ultrasound 11/28/17 0000 Signed Impressions: Service Date/Time: Tuesday, November 28, 2017 20:30 - CONCLUSION: Nondiagnostic exam. Rashad Bose MD Procedures 11/16: Endotracheal intubation 11/18: Endotracheal intubation 11/27: Right-sided pigtail catheter placement to the right pleural cavity 11/27: Right chest tube placement 11/29: Left IJ central line placed, DC 12/17 12/02: Vas-Cath placement 12/03: PEG tube placement 12/14: Bronchoscopy 12/14: Tracheostomy placement 12/17: right subclavian central line placed . Assessment and Plan Disease Oriented Problem List: (1) COPD (chronic obstructive pulmonary disease) (2) Respiratory distress (3) CHF (congestive heart failure) (4) ADRIAN (obstructive sleep apnea) (5) Diabetes mellitus type 2, insulin dependent Symptom Scale: (1) Dyspnea and respiratory abnormalities (2) Pain, generalized Pertinent Non-Medical Issues Psychosocial: He was born in [place] and moved to [place] many years ago. 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 Spiritual: [employer]. Legal: No legal issues noted. Ethical issues impacting care: No ethical issues noted. . Important Contacts : Cony Varela . Prognosis His prognosis is poor. He has significant lung compromise requiring a trilogy ventilator at home with multiple recurrent admissions for pulmonary compromise. He developed cardiac arrest requiring CPR with subsequent pneumothorax of the right lung. His renal indices continue to increase and he is now at risk of requiring dialysis. His transaminases are also rising, possible liver shock. His condition is frail and he is at significant risk for continued complications and decline. Code Status: Full Code Plan PLAN: Legal decision maker: Patient is not capacitated to make his decisions. His Cony is his legal proxy. Goals: Aggressive CODE STATUS: FULL CODE SYMPTOMS: * Dyspnea: Multifactorial to include chronic obstructive pulmonary disease, right pneumothorax, atrial fibrillation, diastolic heart failure, fluid volume excess, profound muscle weakness and a 40 year history of smoking 3 packs per day. He is currently mechanically ventilated, failing CPAP trials secondary to apnea. He is requiring increased oxygen support today up to 40%. Persistent he did not undergo CPAP trial today due to increasing instability. He is receiving nebulizer treatments and hemodialysis, but CVVH is being considered secondary to patient's hypotension which limits fluid extraction. If he can be hemodynamically stabilized, he will need to go to an LTAC for long-term weaning. * Pain: Not responding today, although eyes are open. Unable to assess pain level due to patient's encephalopathy. At risk for pain from mechanical ventilation, invasive lines, chest tube, open wounds, bedbound status, weeping edema. Will need close clinical monitoring to evaluate for pain as patient is unable to make his needs known. Morphine available, no doses given. * Encephalopathy: Multifactorial to include sepsis, renal failure, hypoperfusion secondary to hypotension, hypoxia. Now on maximum Bertin-Synephrine to maintain MAP greater than 65. * Fever: Up to 102.2 in the last 24 hours. He is receiving multiple antibiotics , blood cultures and catheter tip cultures are pending. Urine culture is showing continued Nette glabrata in spite of antifungal therapy, first with Diflucan, now with micafungin. ID following. He is now more hypotensive, thrombocytopenic, consistent with sepsis. Tylenol is available as needed. Palliative care will continue to follow the patient during hospital course as condition evolves, to assist patient/decision-maker with understanding of their medical conditions, weighing benefits/burdens of treatment options, for clarification of goals of treatment. Additionally will assist with any symptoms of palliative concern. . Attestation To help prompt me to consider important information that might be impacting today's encounter and assessment, information from prior notes written by myself or my colleagues may have been "brought forward" into today's note. My signature on this note, however, is an attestation that I personally performed the exam, history, and/or decision-making noted today, and, unless otherwise indicated, the interactions with patient, family, and staff as well as the review of records all occurred today. I also attest that the listed assessment and stated plan reflect my best clinical judgment today based on the combination of historical information, prior notes, and today's exam/ interactions. When time spent is documented, it refers only to time spent today by the signer, or if indicated, combined time spent today by collaborating physician/nurse practitioner. . Linda Gilbert Apr 20, 2018 16:09
[2017-12-17] MEDS: MICAFUNGIN INJ 150 MG in SODIUM CHLORIDE 0.9% INJ 100 ML IV SCH (16:26)
[2017-12-17] MEDS: LEVOFLOXACIN 250 MG PREMIX INJ 50 ML IV SCH (16:26)
[2017-12-17] MEDS ORDERED: VANCOMYCIN 1,000 MG/NS 250 ML IV ONE ×2 (18:00)
--- NOTE | 2017-12-17 18:01 | HHI.NPPN ---
Subjective Renal Failure: Acute History of Present Illness This is a 77-year-old male with past medical history of ischemic heart disease, atrial fibrillation, congestive heart failure, possibly diastolic dysfunction, diabetes mellitus, chronic obstructive pulmonary disease, was admitted on 11/14 with respiratory distress. Nephrology was called to see the patient because of elevated BUN and creatinine. The patient has creatinine of 1.1 on admission, which increased after 2 or 3 to 1.3-1.5 and for the last 2 days, it has been going up and now it is 2.8. The patient was initially diagnosed with pneumonia and was started on antibiotics and then later on, patient developed respiratory failure and was intubated. He was also found to have asystole on 11/27 for 3 minutes and CPR was done with ACLS protocol, and it was shown that he has large right-sided pneumothorax. The blood pressure has been stable and there are no significant hypotensive episodes documented. Most of the history was taken from he patient' s chart. Additional Remarks Remains on ventilator with matilda- synephrine infusing. Pressor has needed to be increased secondary to hypotension, seen in the afternoon, while on HD. Review of Systems General General Remarks Unable to do ROS as patient is intubated Objective Data Data 12/17/17 12/18/17 19:00 07:00 Intake Total 200 ml Output Total 2500 ml Balance -2300 ml IV Total 200 ml Hemodialysis 2500 ml Vital Signs Date Time Temp Pulse Resp B/P (MAP) Pulse Ox O2 Delivery O2 Flow Rate FiO2 12/17/17 16:02 97 40 12/17/17 15:30 125 12/17/17 15:15 134 12/17/17 15:00 126 12/17/17 14:45 117 12/17/17 14:30 134 12/17/17 14:15 133 12/17/17 14:00 114 12/17/17 13:15 113 15 109/61 (77) 100 12/17/17 13:15 113 12/17/17 13:00 112 18 112/56 (74) 100 12/17/17 13:00 112 12/17/17 12:45 101 8 135/71 (92) 100 12/17/17 12:45 101 12/17/17 12:30 104 15 117/69 (85) 100 12/17/17 12:30 104 4/20/18 12:20 113 4/20/18 12:20 113 14 111/74 (86) 100 20/18 12:15 105 20/18 12:15 105 18 100/74 (83) 100 18 12:10 107 18 108/69 (82) 100 20/18 12:10 107 20/18 12:05 114 2018 12:05 114 15 110/71 (84) 100 18 12:00 40 18 12:00 119 18 12:00 98.9 119 6 88/52 (64) 100 18 11:38 100 40 12/17/18 10:00 97.7 113 18 96/51 (66) 100 18 10:00 118 18 08:00 35 18 08:00 123 18 07:10 98 35 12/17/18 06:18 112 117/66 18 06:00 119 18 05:30 119 97/60 12/17/18 04:00 98.4 95 20 122/73 (89) 100 20/18 04:00 95 20/18 04:00 35 12/17/18 03:44 100 35 12/17/18 02:00 96 12/17/18 01:30 97 122/78 20/18 00:00 103 2018 00:00 99.1 105 20 117/57 (77) 100 18 00:00 35 12/16/18 23:55 100 50 19/18 22:00 104 19/18 20:00 100 19/18 20:00 35 /19/18 19:27 100 35 4/19/18 19:20 100 419/18 19:10 101 19/18 19:02 109 19/18 19:00 107 19/18 18:50 108 4/19/18 18:40 107 /19/18 18:30 105 19/18 18:20 103 19/18 18:16 101 109/62 419/18 18:10 101 19/18 18:05 101 109/62 4/19/18 18:00 104 -: 12/17/17 0833 12/17/17 0833 Microbiology 12/17/17 Wound Culture, Received Pending Tubes & Lines: Vas-Cath, Haynes Physical Exam General Appearance: Obese Eyes Eye Exam: Pupils Equal Pulmonary Resp Exam: Breath Sounds Equal Cardiology CV Exam: Regular Gastrointestinal/Abdomen GI Exam: Soft, Non-Tender, Distended Genitourinary Exam: Flank Non-Tender Integumentary Skin Exam: Clear, Warm Extremeties Extremities Exam: Moderate Edema Neurologic Neuro Exam: Awake Assessment/Plan Assessment Summary: DAVID/Acute Renal Failure Problem List: (1) DAVID (acute kidney injury) ICD Codes: N17.9 - Acute kidney failure, unspecified Plan: Acute kidney injury most likely related to prerenal vs acute tubular necrosis, either from the infection or related to his cardiac status and cardiac arrest. Creatinine is stable but minimal urinary output Continues on matilda matilda- synephrine for blood pressure support Edema is improving Plan Renal dose antibiotics Continue for follow UOP and BMP Avoid nephrotoxins as possible. BP is on lower side, on pressors. HD and remove fluid as tolerated. 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 (3) Thrombocytopenia ICD Codes: D69.6 - Thrombocytopenia, unspecified Plan: Hematology has been consulted. 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 America Vela MD Dec 17, 2017 18:01
[2017-12-18] VITALS (22 sets, daily range): BP systolic 95–114; BP diastolic 51–68; PULSE 101–119; RESP 13–19; TEMP 99–99.7; O2SAT 93–100
[2017-12-18] MEDS: INSULIN ASPART SUPPLEMENTAL SCALE SQ SCH ×7 (01:00→23:22)
[2017-12-18] MEDS: CHLORHEXIDINE GLUCONATE 2 % 1 PACK (2 CLOTHS) TOP SCH (04:00)
--- NOTE | 2017-12-18 04:59 | RADRPT ---
EXAM DATE/TIME: 12/18/2017 04:26 [place] COMPARISON: CHEST SINGLE AP, December 17, 2017, 8:12. INDICATIONS : Shortness of breath, possible pulmonary disease. MEDICAL HISTORY : Chronic obstructive pulmonary disease. Cardiovascular disease. SURGICAL HISTORY : Tracheostomy ENCOUNTER: Subsequent ACUITY: 3 weeks PAIN SCORE: Non-responsive. LOCATION: Bilateral chest FINDINGS: No significant change when compared to the prior study. The apical pneumothorax on the right is not a s well-seen on the current study which may be technical in nature. Right thoracostomy tube with subcu taneous air overlying the right chest. Right sided central lines and tracheostomy tube. Left basilar consolidation. Heart is normal in size. No effusions. CONCLUSION: 1. Unchanged left basilar consolidation. 2. No discernible pneumothorax on the current study. Shaq Freire Jr., MD on December 18, 2017 at 4:56 Board Certified Radiologist. This report was verified electronically.
[2017-12-18] MEDS: metroNIDAZOLE 500 MG TAB PO SCH ×4 (05:17→23:22)
[2017-12-18 05:43] LABS: AUTOMATED NEUTROPHIL # 10.3 TH/MM3 (1.8-7.7); BASOPHIL % 0.1 % (0.0-2.0); HEMATOCRIT 29.2 % (39.0-51.0); HEMOGLOBIN 9.3 GM/DL (13.0-17.0); LYMPH % 6.5 % (9.0-44.0); LYMPHOCYTE # 0.8 TH/MM3 (1.0-4.8); MEAN CELL VOLUME 88.2 FL (80.0-100.0); MEAN CORPUSCULAR HEMOGLOBIN 28.1 PG (27.0-34.0); MEAN CORPUSCULAR HGB CONC 31.9 % (32.0-36.0); MEAN PLATELET VOLUME 9.9 FL (7.0-11.0); MONO % 4.8 % (0.0-8.0); MONOCYTE # 0.6 TH/MM3 (0-0.9); NEUT % 88.6 % (16.0-70.0); PLATELET COUNT 52 TH/MM3 (150-450); RED BLOOD COUNT 3.31 MIL/MM3 (4.50-5.90); RED CELL DISTRIBUTION WIDTH 18.9 % (11.6-17.2); WHITE BLOOD COUNT 11.6 TH/MM3 (4.0-11.0)
[2017-12-18 06:00] LABS: ALBUMIN 3.3 GM/DL (3.4-5.0); AST (GOT) 21 U/L (15-37); BICARBONATE 25.3 MEQ/L (21.0-32.0); BLOOD UREA NITROGEN 64 MG/DL (7-18); CALCIUM 7.7 MG/DL (8.5-10.1); CHLORIDE 100 MEQ/L (98-107); CREATININE 2.04 MG/DL (0.60-1.30); GLOMERULAR FILTRATION RATE 32 ML/MIN (>89); GLUCOSE,RANDOM 303 MG/DL (74-106); MAGNESIUM 1.8 MG/DL (1.5-2.5); SODIUM (NA) 138 MEQ/L (136-145)
[2017-12-18 06:05] LABS: ALKALINE PHOSPHATASE 338 U/L (45-117); ALT (GPT) 24 U/L (12-78); RANDOM VANCOMYCIN 26.4 COMMENT; TOTAL BILIRUBIN ADULT 0.8 MG/DL (0.2-1.0); TOTAL PROTEIN 5.1 GM/DL (6.4-8.2)
[2017-12-18] MEDS: BUDESONIDE-FORMOTEROL 160/4.5 MCG INHALER INH SCH ×2 (07:38→20:00)
[2017-12-18] MEDS: CHLORHEXIDINE 0.12% (ORAL KIT) 15 ML CUP MT SCH ×2 (08:18→20:00)
[2017-12-18] MEDS: LANTHANUM CARBONATE 500 MG CHEWABLE TABLET CHEW SCH ×3 (08:18→17:32)
[2017-12-18] MEDS: DOCUSATE SODIUM 50 MG/SENNA 8.6 MG TAB PO SCH ×2 (08:19→20:08)
[2017-12-18] MEDS: SODIUM CHLORIDE 0.9% FLUSH 10 ML FLUSH IV FLUSH SCH ×2 (08:19→20:06)
[2017-12-18] MEDS: FAMOTIDINE 20 MG TAB PO SCH ×2 (08:19→20:08)
[2017-12-18] MEDS: CALCITRIOL 0.25 MCG CAP PO SCH (08:20)
[2017-12-18] MEDS: INSULIN DETEMIR 100 UNITS/ML VIAL SQ SCH ×2 (08:20→20:08)
[2017-12-18] MEDS: CEFTOLOZANE-TAZOBACTAM INJ 150 MG in SODIUM CHLORIDE 0.9% INJ 100 ML IV SCH ×3 (09:43→22:13)
[2017-12-18] MEDS: AMIODARONE 200 MG TAB PO SCH ×2 (09:43→20:07)
[2017-12-18] MEDS: PHENYLEPHRINE INJ 160 MG in DEXTROSE 5% IN WATE 500 ML INJ 484 ML IV PRN ×2 (09:44)
--- NOTE | 2017-12-18 10:17 | HHI.NPPN ---
Subjective Renal Failure: Acute History of Present Illness This is a 77-year-old male with past medical history of ischemic heart disease, atrial fibrillation, congestive heart failure, possibly diastolic dysfunction, diabetes mellitus, chronic obstructive pulmonary disease, was admitted on 11/14 with respiratory distress. Nephrology was called to see the patient because of elevated BUN and creatinine. The patient has creatinine of 1.1 on admission, which increased after 2 or 3 to 1.3-1.5 and for the last 2 days, it has been going up and now it is 2.8. The patient was initially diagnosed with pneumonia and was started on antibiotics and then later on, patient developed respiratory failure and was intubated. He was also found to have asystole on 11/27 for 3 minutes and CPR was done with ACLS protocol, and it was shown that he has large right-sided pneumothorax. The blood pressure has been stable and there are no significant hypotensive episodes documented. Most of the history was taken from he patient' s chart. Additional Remarks Remains on ventilator with matilda- synephrine infusing. CPAP trial this morning which has now been discontinued and back on AC. (Adeola Velez) Review of Systems General General Remarks Unable to do ROS as patient is intubated (Adeola Velez) Objective Data Data Vital Signs Date Time Temp Pulse Resp B/P (MAP) Pulse Ox O2 Delivery O2 Flow Rate FiO2 12/18/17 09:44 107 107/61 12/18/17 08:00 99.7 111 19 104/59 (74) 98 12/18/17 07:41 30 12/18/17 07:29 100 30 12/18/17 06:00 101 12/18/17 04:30 104 111/59 12/18/17 04:00 107 14 114/63 (80) 100 12/18/17 04:00 104 12/18/17 04:00 35 12/18/17 03:53 100 30 12/18/17 03:15 101 107/62 12/18/17 03:00 109 18 109/62 (78) 100 12/18/17 03:00 109 109/62 12/18/17 02:00 105 13 101/67 (78) 100 12/18/17 02:00 118 12/18/17 01:00 116 19 114/60 (78) 100 4/21/18 00:45 112 115/63 4/21/18 00:00 107 4/21/18 00:00 99.5 107 15 95/51 (66) 100 4/21/18 00:00 35 4/20/18 23:20 100 35 4/20/18 23:00 119 19 93/63 (73) 100 4/20/18 22:00 124 26 121/59 (79) 100 4/20/18 22:00 116 4/20/18 21:00 119 2 110/55 (73) 100 4/20/18 20:00 104 4/20/18 20:00 99.0 116 18 118/58 (78) 100 4/20/18 20:00 35 4/20/18 19:49 100 40 4/20/18 19:30 117 108/55 4/20/18 18:45 121 4/20/18 18:45 121 9 104/57 (73) 100 4/20/18 18:30 114 19 121/59 (79) 100 4/20/18 18:30 114 4/20/18 18:15 120 18 134/58 (83) 100 420/18 18:15 120 4/20/18 18:00 119 4/20/18 18:00 119 14 111/60 (77) 100 420/18 17:45 117 4/20/18 17:45 117 18 103/64 (77) 100 4/20/18 17:30 113 18 108/61 (77) 100 4/20/18 17:30 113 4/20/18 17:15 131 32 108/70 (83) 100 4/20/18 17:15 131 4/20/18 17:00 120 20 76/46 (56) 100 4/20/18 17:00 120 4/20/18 16:45 121 4/20/18 16:45 121 18 91/54 (66) 100 4/20/18 16:30 121 4/20/18 16:30 121 18 103/61 (75) 100 4/20/18 16:15 136 18 143/76 (98) 100 4/20/18 16:15 136 4/20/18 16:02 97 40 4/20/18 16:00 98.9 128 15 115/78 (90) 420/18 16:00 40 12/17/17 16:00 128 12/17/17 15:30 125 12/17/17 15:15 134 12/17/17 15:00 126 12/17/17 14:45 117 12/17/17 14:30 134 12/17/17 14:15 133 12/17/17 14:00 114 12/17/17 13:15 113 15 109/61 (77) 100 12/17/17 13:15 113 12/17/17 13:00 112 18 112/56 (74) 100 12/17/17 13:00 112 12/17/17 12:45 101 8 135/71 (92) 100 12/17/17 12:45 101 12/17/17 12:30 104 15 117/69 (85) 100 12/17/17 12:30 104 12/17/17 12:20 113 12/17/17 12:20 113 14 111/74 (86) 100 12/17/17 12:15 105 12/17/17 12:15 105 18 100/74 (83) 100 12/17/17 12:10 107 18 108/69 (82) 100 12/17/17 12:10 107 12/17/17 12:05 114 12/17/17 12:05 114 15 110/71 (84) 100 12/17/17 12:00 40 12/17/17 12:00 119 12/17/17 12:00 98.9 119 6 88/52 (64) 100 12/17/17 11:38 100 40 (Adeola Velez) -: 12/18/17 0515 12/18/17 0515 Tubes & Lines: Vas-Cath, [place] (Adeola Velez) Physical Exam General Appearance: Obese (Adeola Velez) Eyes Eye Exam: Pupils Equal (Adeola Velez) Pulmonary Resp Exam: Breath Sounds Equal Resp Remarks Intubated CT right chest wall (Adeola Velez) Cardiology CV Exam: Regular (Adeola Velez) Gastrointestinal/Abdomen GI Exam: Soft, Non-Tender, Distended (Adeola Velez) Genitourinary Exam: Flank Non-Tender (Adeola Velez) Integumentary Skin Exam: Clear, Warm (Adeola Velez) Extremeties Extremities Exam: Moderate Edema (Adeola Velez) Neurologic Neuro Exam: Awake (Adeola Velez) Assessment/Plan Assessment Summary: DAVID/Acute Renal Failure Problem List: (1) DAVID (acute kidney injury) ICD Codes: N17.9 - Acute kidney failure, unspecified Plan: Acute kidney injury most likely related to prerenal vs acute tubular necrosis, either from the infection or related to his cardiac status and cardiac arrest. Creatinine is stable but minimal urinary output Continues on matilda matilda- synephrine for blood pressure support Edema is improving Plan Renal dose antibiotics Continue for follow UOP and BMP Avoid nephrotoxins as possible. Hemodialysis yesterday with UF of 2.5 l BP continues to be low on pressors. (2) Respiratory failure ICD Codes: J96.90 - Respiratory failure, unspecified, unspecified whether with hypoxia or hypercapnia Plan: Intubated weaning per truss designer. (3) Thrombocytopenia ICD Codes: D69.6 - Thrombocytopenia, unspecified Plan: Hematology has been consulted and following (4) Anemia ICD Codes: D64.9 - Anemia, unspecified Plan: has received blood transfusion. (Adeola Velez) Problem List: (1) DAVID (acute kidney injury) ICD Codes: N17.9 - Acute kidney failure, unspecified Plan: Acute kidney injury most likely related to prerenal vs acute tubular necrosis, either from the infection or related to his cardiac status and cardiac arrest. Creatinine is stable but minimal urinary output Continues on matilda matilda- synephrine for blood pressure support Edema is improving Plan Renal dose antibiotics Continue for follow UOP and BMP Avoid nephrotoxins as possible. Hemodialysis yesterday with UF of 2.5 l BP continues to be low on pressors. Patient seen and examine, agree with above. Urine out put is minimal. Possible HD tomorrow again, mainly to remove fluid. D/W the . (2) Respiratory failure ICD Codes: J96.90 - Respiratory failure, unspecified, unspecified whether with hypoxia or hypercapnia Plan: Intubated weaning per truss designer. (3) Thrombocytopenia ICD Codes: D69.6 - Thrombocytopenia, unspecified Plan: Hematology has been consulted and following (4) Anemia ICD Codes: D64.9 - Anemia, unspecified Plan: has received blood transfusion. (America Vela MD) Adeola Velez Dec 18, 2017 10:17 America Vela MD Dec 19, 2017 12:32
[2017-12-18] MEDS: HYDROCORTISONE SOD SUCCINATE 100 MG VIAL IV PUSH SCH ×2 (11:15→22:12)
--- NOTE | 2017-12-18 11:17 | HHI.CCPN ---
Subjective Remarks/Hospital Course This is a 77-year-old male with a medical history significant for COPD, CHF, A. fib, diabetes, that presented to emergency department from [facility] for evaluation of worsening shortness of breath over the last 3 days. The patient was been given Solu-Medrol 125 mg and 2 albuterol treatments enroute to ED. Upon presentation to the ED the patient was on a nonrebreather. He was tachypneic and tachycardic. Patient's medical history significant for MRSA pneumonia previously admitted on 10/27/16 for approximately 12 days at [facility]. The patient is normally on 2.5 L/m nasal cannula O2 home dependency, and he lives with ( normally) a PCO2 in the 80s according to his . Patient was then discharged to [facility], and then transferred to [facility] for rehabilitation. He has been on an unknown antibiotic per the family and steroids for the last 3 days. Laboratory and imaging studies were performed with noted elevation in CO2 The patient was given empiric antibiotics in the ED and placed on BiPAP. Critical care medicine was consulted. Subjective: 11/15: Patient maintained on BiPAP throughout the night O2 saturations 97-98% on FiO2 of 0.40. Hemodynamically stable. Attempts made to wean patient to nasal cannula this a.m. unsuccessful, patient's O2 saturation in the 70s, patient placed back on BiPAP. Chest x-ray pending WBC count significantly diminished, leukocytosis resolved. Patient extremely anxious, Precedex infusion initiated. 11/16: Late entry note. Patient seen 10 AM. Overnight the patient converted to A. fib RVR, despite being on Cardizem 4 times a day and metoprolol twice a day- home medications, the patient received IV Cardizem followed by amiodarone infusion. Per report the patient became hypotensive, Cardizem discontinued. Amiodarone continued. Early this a.m. patient was resting comfortably A. fib rate controlled rate. The patient suddenly converted to A. fib RVR heart rate 150s-160s, acute hypoxemic respiratory failure, requiring intubation. The patient was intubated uneventfully and continues on amiodarone at 0.5 mg/hour, rate now controlled in conjunction with sedation. Cardiology consulted, his surplus property disposal agent is Dr. Reyes X-ray revealed lung consolidation improved, chest x- ray clear. Plan for CPAP trials in a.m.. 11/17: No acute events overnight. Patient had 1 short 8 beat run of V. tach last evening was self resolution, electrolytes within normal limits. The patient continues on amiodarone 0.5 mg/hr. CPAP trials initiated this a.m.. Tube feeds initiated at trickle feeds. Patient converted to sinus rhythm at 2 AM. 11/18 Patient remains sedated and intubated. Afebrile. 11/19 Patient was extubated yesterday however last night he was noted to choke on water provided by the family. Stat ABG demonstrated acute hypercapnic respiratory failure and was emergently intubated. Currently sedated and intubated. 11/20 Patient remains intubated on Fentanyl drip however he si awake and alert. Afebrile. 11/21 Patient is awake and alert placed on CPAP with PS:15, PEEP:5. Afebrile. 11/22 Patient remains intubated , did not tolerate CPAP trials yesterday as he became tachycardic and hypertensive. On no sedation awake and alert. 11/23 No events overnight, off sedation. 11/24: Resting comfortably on mechanical ventilation currently. Daily C Pap trials ongoing. 11/25: Sedated with Precedex, orally intubated on mechanical ventilation. Daily C Pap trials 11/26: Sedated with Precedex, orally intubated on mechanical ventilation. Got tachypneic with CPAP trial today hence placed back on PRVC. Spiked a fever, garcia cultures ordered. Went into A. fib with RVR subsequently for which being initiated on amiodarone bolus followed by drip and Lopressor 5 mg IV every 6 as needed for 11/27: This morning patient developed bradycardia followed by asystole for which she had 3 minutes CPR with ACLS protocol with return of spontaneous circulation. Post code chest x-ray revealed moderate to large right pneumothorax for which a right pigtail catheter was placed by me however despite airleak patient continue have moderate to large pneumothorax hence a second right sided 28 Nigerien chest tube was placed to -40 cm water pressure. Air leaks 1+ in both pigtail catheter and chest tube. Patient remains in a flutter currently. Dr. reyes evaluated patient as well following cardiac arrest. 11/28: Sedated, arousable, orally intubated on mechanical ventilation. Worsening renal function noted. MDR Pseudomonas in sputum. Right sided chest tube/ pigtail catheter with 1+ air leak in both. Subcutaneous emphysema noted over right side of face neck and right upper extremity. On 50% FiO2, PEEP +5. Poor urine output for which 500 cc and is bolus given earlier. Treated for hyperkalemia with Kayexalate PO, glucose insulin, calcium IV. 4/2: Remains sedated, arousable, orally intubated on mechanical ventilation. A. fib with RVR this morning for which she was loaded with amiodarone and initiated on amiodarone drip. Spiking fever 103.5. ID adjusting antibiotics. Stool for C. difficile ordered as he had some diarrhea today though received Kayexalate yesterday for hyperkalemia. Pigtail catheter on the right side appeared to be dislodged hence this was removed. 28 Nigerien chest tube in right pleural cavity repositioned. 11/30: Late entry note , patient seen at 12 noon. Creatinine continues to trend upward.Sedated but easily arousable. 12/01: Patient lightly sedated, following commands this a.m.. Creatinine noted increased, possible dialysis consideration for tomorrow. Patient to be diuresed today. CPAP trial initiated failed after 5 minutes, repeat this afternoon. 12/02: Patient placed on Lasix infusion throughout the night . No renal improvement,creatinine worsened today , plan for Vas-Cath placement and IHD today. This extensive discussion with patient and plans for tracheostomy and PEG tube placement secondary to failure to wean. 12/03: Late entry note, patient seen at 11 am. Patient scheduled for PEG placement today by Dr. Iglesias. Patient continues to fail CPAP trials. Plan for tracheostomy in the near future 12/04: Late entry note . Patient seen earlier this am. Overnight the patient became hypoglycemic, secondary to n.p.o. status, post PEG placement. D10 was initiated at 30 cc/hr. Tube feeds reinitiated Jevity 1.5, 24 hours post PEG tube placed, D10 discontinued. Patient remains on fentanyl at 100 mics/hour, lightly sedated. Patient denies pain answering by nodding head to yes and no questions. Tracheostomy planned for Wednesday12/06/[address] Calderon. 12/05: Remains intubated sedated with 50 mcg of fentanyl. On attempted CPAP trial patient remained dyspneic. Significant neuromuscular weakness persist. Chest x-ray shows small right apical pneumothorax. Tentatively plan for tracheostomy tomorrow. Dr. Calderon has already been consulted 12/06 Patient remains intubated for possible trach today. On Levophed 12 mics. Afebrile. 12/07 No events overnight. Trach was placed on hold yesterday as patient was on Levophed. He is down to 5 mics today. Afebrile. 12/08 Patient remains intubated on no sedation. CT brain this morning showed no acute process. Off Levophed. 12/09 Patient was placed back on Levophed 6 mics. Afebrile. Remains intubated on no sedation. 12/10 Patient remains intubated. On Neosyn 40 mics went into Afib with RVR HR 128 12/11 Patient remains intubated. Now on Neosyn 200 mics ( MAP 86mmHg). s/p HD yesterday with 1.5L removed. T:99.7 12/12 Patient remains sedated and intubated. Neosyn down 100 mics. For transfusion 2u PRBC and 1u PLT ( Hgb 6.7 and PLT 18 this morning) s/p HD with 3L removed yesterday. WBC is trending down. 12/13: More critically ill today, Bertin-Synephrine had to be increased to 150 mcg/ min, remains borderline hypotensive despite Bertin-Synephrine, currently in A. fib with RVR. Digoxin additional 0.25 mg IV push 1, start amiodarone infusion 12/14: Patient remains patient remains intubated currently on 50 mcg/min of Bertin- Synephrine. Remains on amiodarone infusion with heart rate better controlled 110-120. Plan for perc trach at bedside today 12/15: Remains on Bertin-Synephrine 50 mcg/min. On attempted CPAP patient had multiple PVCs and PACs. Potassium 2.7 getting replaced. Argatroban will be restarted 12/16: Patient is more lethargic, profoundly hypotensive Bertin-Synephrine increase to 300 mcg/min. Possibly septic shock. Currently on micafungin backside Levaquin and Flagyl. Add gram-positive coverage with vancomycin send blood cultures. Also will also change central line today-cleared by Dr. Vela to use subclavian access 12/17: Hypertensive encephalopathic Bertin-Synephrine at 100 mcg/min. new right subclavian central line placed left IJ will be sent for culture. Currently in A. fib with RVR heart rate varying from 110s-130. If persistent will give 2.5 metoprolol. AUGUSTA negative and argatroban discontinued. Start heparin subcu for DVT prophylaxis 12/18: Patient remains critically currently on 140 mcg/min of Bertin-Synephrine. Tachypneic with agonal appearing breathing on CPAP trial. Chest x-ray remains unchanged. Platelet count is 54 today, will hold subcu heparin. Objective Vital Signs Date Time Temp Pulse Resp B/P (MAP) Pulse Ox O2 Delivery O2 Flow Rate FiO2 12/18/17 10:46 93 40 12/18/17 10:00 119 12/18/17 09:44 107/61 12/18/17 08:00 99.7 19 Intake and Output 12/18/17 12/18/17 12/18/17 07:59 15:59 23:59 Intake Total 1443 ml Output Total 50 ml Balance 1393 ml Result Diagram: 12/18/17 0515 12/18/17 0515 Other Results Microbiology Date/Time Source Procedure Growth Status 12/16/17 12:57 Urine Catheterized Urine Urine Culture - Final Nette Glabrata Complete Imaging Last Impressions Chest X-Ray 12/11/17 0000 Signed Impressions: Service Date/Time: Monday, December 11, 2017 10:51 - CONCLUSION: Stable chest with moderate subcutaneous emphysema and no pneumothorax. Torin Dennison MD FACR Liver Ultrasound 12/09/17 0000 Signed Impressions: Service Date/Time: November 19:18 - CONCLUSION: 1. Limited suboptimal examination with only a small portion of the liver visualized. 2. The gallbladder and common bile duct could not be visualized. The pancreas is not evaluated. 3. Left pleural effusion. Liang Jimenez MD Head CT 12/08/17 0000 Signed Impressions: Service Date/Time: Friday, December 08, 2017 08:25 - CONCLUSION: Negative for acute process. Torin Dennison MD FACR Catheter Placement X-Ray 12/02/17 0000 Signed Impressions: Service Date/Time: November 10:47 - CONCLUSION: Uncomplicated right internal jugular Vas-Cath placement as above. incidental note is made of subcutaneous emphysema within the chest wall and neck Con Dennison MD Lower Extremity Ultrasound 11/29/17 0000 Signed Impressions: Service Date/Time: Wednesday, November 29, 2017 22:02 - CONCLUSION: Normal examination. Abdiel Mcintyre MD Renal Ultrasound 11/28/17 0000 Signed Impressions: Service Date/Time: Tuesday, November 28, 2017 20:30 - CONCLUSION: Nondiagnostic exam. Rashad Bose MD Objective Remarks GENERAL: Patient is 77 yo intubated lethargic, agaonl breathing on CPAP SKIN: Warm and dry. HEAD: Normocephalic. Mild subcutaneous emphysema involving right side of face neck shoulder and arm. EYES: No scleral icterus. No injection or drainage. NECK: Supple, trachea midline. No JVD or lymphadenopathy. New trach without significant bleed CARDIOVASCULAR: S1-S2 irregularly irregular, tachycardic in 110-130 hypotensive , currently on Bertin-Synephrine at 140 mcg/min RESPIRATORY: On mechanical ventilation, air entry decreased bilaterally, scattered rhonchi bilaterally. R chest tube with + airleak. Subcutaneous emphysema or right chest wall, neck, right face and right upper extremity. GASTROINTESTINAL: Abdomen soft, non-tender, nondistended. MUSCULOSKELETAL: Bilateral peripheral edema +2 Neuro: Patient is lethargic not following commands slight withdrawal to pain, encephalopathic. No spontaneous limb movements noted A/P Problem List: (1) A-fib ICD Code: I48.91 - Unspecified atrial fibrillation (2) CHF (congestive heart failure) ICD Code: I50.9 - Heart failure, unspecified Status: Chronic (3) HTN (hypertension) ICD Code: I10 - Essential (primary) hypertension Status: Chronic (4) ADRIAN (obstructive sleep apnea) ICD Code: G47.33 - Obstructive sleep apnea (adult) (pediatric) Status: Chronic (5) MRSA pneumonia ICD Code: J15.212 - Pneumonia due to Methicillin resistant Staphylococcus aureus Status: Acute (6) Diabetes mellitus type 2, insulin dependent ICD Code: E11.9 - Type 2 diabetes mellitus without complications; Z79.4 - predatory animal exterminator (current) use of insulin Status: Chronic (7) COPD (chronic obstructive pulmonary disease) ICD Code: J44.9 - Chronic obstructive pulmonary disease, unspecified Status: Acute (8) Respiratory distress ICD Code: R06.03 - Acute respiratory distress Status: Acute (9) Leukocytosis ICD Code: D72.829 - Elevated white blood cell count, unspecified Status: Acute (10) Lung consolidation ICD Code: J18.1 - Lobar pneumonia, unspecified organism Status: Acute (11) Anxiety ICD Code: F41.9 - Anxiety disorder, unspecified Status: Chronic (12) Failure to wean from mechanical ventilation ICD Code: Z99.11 - Dependence on respirator [ventilator] status Assessment and Plan Plan by systems: Neurologic: Encephalopathy, metabolic Anxiety Off sedation, monitor neuro status, worsening encephalopathy secondary to sepsis Neuro checks per ICU protocol EEG: Mild- mod encephalopathy. Neuro is following- Dr. Anne. CT brain 12/08 no acute process Respiratory: Acute respiratory failure on mechanical ventilation- extubated and reintubated night of 11/18 after he was noted to choke on water provided by family. COPD exacerbation Pneumonia-MRSA, MDR Pseudomonas Right sided pneumothorax following CPR status post pigtail catheter/chest tube placement 11/27 Obstructive sleep apnea Home O2 dependency Continue with vent support keep sats >90%. s/p Trach 12/14/17 Attempt daily CPAP trials, not tolerating today due to tachypnea and agonal appearing breathing Bronchodilators, HC 50mg IV Q12 Pulmonology - Dr Price, Right sided chest tube in place. Continue 28 F right chest tube to -40 cm water pressure with underwater seal. Cardiovascular: Shock most likely septic Cardiac arrest - asystole, status post CPR 11/27 A. fib RVR History of CHF CAD Currently on Bertin-Synephrine 100 mcg/min to keep MAP>65mmHg. IV digoxin 0.25 mg 1 12/13, digoxin on hold level 0.8 today Continue amiodarone PO. IV metoprolol as needed Lactic acid:2.2 on 12/07 Hydrocortisone 50mg IV [id number] weaning once hemodynamically more stable Atorvastatin 80 daily on hold for elevated LFT's Cardiology - Dr. Reyes. Echo showed EF 65-70% Renal: DAVID Monitor renal function, electrolytes replacement as needed Nephrology Dr. Ragland. 12/02 Vas-Cath placed for initiation of IHD . FEN/GI: Elevated LFT's GERD Monitor LFT's, US liver on 12/06: non diagnostic study US liver 12/09 limited study Hepatitis profile is negative On tube feeds On Nepro @40cc/hr. Pepcid for GI prophylaxis 12/03 PEG tube placement ID: Pneumonia MRSA, MDR Pseudomonas Leukocytosis Septic shock ID following- Antibiotics per ID (on Micafungin, Zerbaxa, Flagyl, Levaquin). Vancomycin restarted 12/16/2017 Repeat sputum culture blood culture and urine culture 12/16 Stool for C. difficile negative on 11/29 and 12/06 Pertinent cultures 12/14 Urine yeast 12/09 BC: NGTD 411 Urine cx: C. Glabrata 12/06 Sputum cx: Pseudomonas MDR 11/16 sputum cultures- Kleb pneumonia 11/26 sputum cultures growing multidrug resistant Pseudomonas/MRSA 11/28 urine culture growing yeast 11/26 blood culture neg Heme HIT antibody positive AUGUSTA negative. Argatroban discontinued by Dr. Quintana. Endocrine: Glucose monitoring per ICU protocol -- SSI(high scale) Levemir 5u Q12 Prophylaxis: GI Prophylaxis Famotidine BID -- SCDs Holding home dose Eliquis 5 mg BID on 11/27 in view of anticipated procedures, now with thrombocytopenia and renal failure Argatroban discontinued HIT AUGUSTA negative Started heparin subcu every 12 12/17/2017, hold due to platelet count being 53 today. Lines: Left IJ central line placed 11/29-DC 12/17. New Left central line subclavian placed 12/16/17 Right IJ vascath 12/02 Palliative care is following Level 3 Problem Qualifiers (1) COPD (chronic obstructive pulmonary disease): Qualified Codes: J44.9 - Chronic obstructive pulmonary disease, unspecified (2) Leukocytosis: Qualified Codes: D72.829 - Elevated white blood cell count, unspecified Darwin Meadows MD Dec 18, 2017 11:17
[2017-12-18] MEDS: MICAFUNGIN INJ 150 MG in SODIUM CHLORIDE 0.9% INJ 100 ML IV SCH (13:20)
[2017-12-18] MEDS: LEVOFLOXACIN 250 MG PREMIX INJ 50 ML IV SCH (15:02)
--- NOTE | 2017-12-18 15:44 | HHI.IDPN ---
Note Infectious Disease Note ID COVERAGE Notes reviewed. Temps better On pressors Had HD yesterday WBC better, but platelets still low Sputum C/S pending The repeat urine culture continues to have Nette glabrata. Repeat sputum culture had multiple resistant Pseudomonas aeruginosa. Urine culture from 12/08 had Nette. Previous urine culture on 11/28 had Nette glabrata. Patient was treated with Diflucan. Chest tube in place on the right due to pneumothorax. 77-year-old, white male who presents to the Emergency Department with shortness of breath. The patient has a history of COPD and CHF. He usually uses CPAP at the assisted living facility. He was noted to have been developing coughing and shortness of breath over the past couple of days, and his states that he was coughing a lot yesterday and bringing up mostly phlegm and that he was restless and could not sleep. Recent treatment at [facility] for pneumonia due to methicillin-resistant Staphylococcus aureus. PAST HISTORY: COPD, CHF, atrial fibrillation, insulin-dependent diabetes mellitus, hypertension, hyperlipidemia, gastroesophageal reflux, gastroparesis, iron deficiency anemia, oxygen-dependent. Right knee surgery, right carpal tunnel release, cardiac ablation treatment 2002. ALLERGIES: ASPIRIN, CODEINE. MEDICATIONS: Current Medications Medications (Trade) Dose Ordered Sig/Yani Route Start Time Stop Time Status Last Admin (NS Flush) 2 ml UNSCH PRN IV FLUSH 11/14/17 15:45 11/17/17 14:05 (NS Flush) 2 ml BID IV FLUSH 11/14/17 21:00 12/18/17 08:19 (Zofran Inj) 4 mg Q6H PRN IV PUSH 11/14/17 15:45 11/18/17 16:03 Miscellaneous Information 1 Q361D XX 11/14/17 15:45 11/14/17 15:45 (Chlorhexidine 2% Cloth) Taper DAILY@04 TOP 11/15/17 04:00 11/11/18 03:59 12/17/17 04:00 (Chlorhexidine 2% Cloth) 3 pack UNSCH PRN TOP 11/14/17 15:45 (Ricarda-Colace) 1 tab BID PO 11/14/17 21:00 12/17/17 22:01 (Milk Of Magnesia Liq) 30 ml Q12H PRN PO 11/14/17 15:45 (Senokot) 17.2 mg Q12H PRN PO 11/14/17 15:45 (Dulcolax Supp) 10 mg DAILY PRN RECTAL 11/14/17 15:45 (Lactulose Liq) 30 ml DAILY PRN PO 11/14/17 15:45 (Eliquis) 5 mg BID PO 11/14/17 21:00 Future Hold 11/27/17 20:17 (Lipitor) 80 mg HS PO 11/14/17 21:00 Future Hold 12/05/17 19:49 (Lanoxin) 0.125 mg DAILY PO 11/15/17 09:00 Future hold 11/17/17 08:24 (Cardizem) 60 mg QID PO 11/14/17 18:00 Future Hold 12/06/17 08:44 Patient Own Medication PT OWN MED: Momet[facility]... HS INH 11/14/17 21:00 Future Hold (Apresoline Inj) 20 mg Q4H PRN IV PUSH 11/17/17 12:00 11/22/17 07:38 (Symbicort 160-4.5 Mcg Inh) 2 puff Q12HR INH 11/18/17 21:00 12/18/17 07:38 (Peridex 0.12% Liq) 15 ml BID@08,20 MT 11/19/17 08:00 12/18/17 08:18 (Duoneb Neb) 1 ampule Q2HR NEB PRN INH 11/18/17 22:30 12/17/17 07:19 (Pepcid) 10 mg BID PO 11/22/17 21:00 12/18/17 08:19 (NovoLOG SUPPLEMENTAL SCALE) 1 Q4HR SQ 11/26/17 16:00 12/18/17 11:16 (D50w (Vial) Inj) 25 ml UNSCH PRN IV 11/26/17 15:30 12/04/17 01:18 (Glucagon Inj) 1 mg UNSCH PRN IM/SQ 11/26/17 15:30 Fentanyl Citrate 250 ml @ 5 mls/hr TITRATE PRN IV 11/27/17 13:45 12/03/17 08:58 (Lopressor Inj) 5 mg Q6H PRN IV PUSH 11/29/17 09:15 Sodium Chloride 1,000 ml @ 0 mls/hr Q0M PRN OTHER 4/5/18 09:30 12/08/17 16:50 (Heparin Inj) 8,000 units UNSCH PRN IV FLUSH 12/02/17 09:30 Sodium Chloride 1,000 ml @ 200 mls/hr Q5H PRN IV 12/02/17 09:30 Sodium Chloride 1,000 ml @ 0 mls/hr Q0M PRN OTHER 12/02/17 09:30 (Mannitol Inj) 12.5 gm UNSCH PRN IV 12/02/17 09:30 12/17/17 13:05 Albumin Human 100 ml @ 60 mls/hr UNSCH PRN IV 12/02/17 09:30 12/17/17 13:07 (NS Flush) 5 ml UNSCH PRN IV FLUSH 12/02/17 09:30 12/08/17 16:51 (Heparin Inj) UNSCH PRN .XX 12/02/17 09:30 12/08/17 16:50 (Gentamicin Inj) 20 mg UNSCH PRN OTHER 12/02/17 09:30 12/17/17 13:06 (Zofran Inj) 4 mg UNSCH PRN IV PUSH 12/02/17 09:30 (Tylenol) 650 mg UNSCH PRN PO 12/02/17 09:30 12/16/17 19:06 (Benadryl) 25 mg UNSCH PRN PO 12/02/17 09:30 (Nitrostat Sl) 0.4 mg UNSCH PRN SL 12/02/17 09:30 (Catapres) 0.1 mg UNSCH PRN PO 12/02/17 09:30 (Epogen Inj) 4,000 units UNSCH PRN IV PUSH 12/02/17 09:30 12/17/17 13:06 (Gelfoam 12 Mm/7 Mm Top) 1 foam UNSCH PRN TOP 12/02/17 09:30 (NS Flush) UNSCH PRN IV FLUSH 12/02/17 11:15 (Heparin Inj) UNSCH PRN IV FLUSH 12/02/17 11:15 Micafungin Sodium 150 mg/Sodium Chloride 100 ml @ 100 mls/hr Q24H IV 12/06/17 12:00 12/18/17 13:20 (SoluCORTEF INJ) 50 mg Q12H IV PUSH 12/07/17 23:00 12/18/17 11:15 (Levemir Inj) 5 units Q12HR SQ 12/07/17 12:00 12/18/17 08:20 (Fosrenol Chew) 500 mg TID CHEW 12/07/17 18:00 12/18/17 13:19 (Rocaltrol) 0.5 mcg DAILY PO 12/08/17 09:00 12/17/17 08:10 Ceftolozane/ Tazobactam 150 mg/ Sodium Chloride 100 ml @ 100 mls/hr Q8H IV 12/08/17 23:00 12/18/17 15:02 Levofloxacin/ Dextrose 50 ml @ 50 mls/hr Q24H IV 12/08/17 16:00 12/18/17 15:02 (Flagyl) 500 mg Q6HR PO 12/10/17 13:30 12/18/17 13:19 Phenylephrine HCl 160 mg/Dextrose 500 ml @ 7.5 mls/hr TITRATE PRN IV 12/10/17 19:30 12/18/17 09:44 (Brethine Inj) 1 mg UNSCH PRN SQ 12/10/17 19:30 Amiodarone HCl 450 mg/Sodium Chloride 250 ml @ 33.33 mls/ hr Q7H31M PRN IV 12/13/17 12:30 12/14/17 23:52 (Cordarone) 200 mg Q12HR PO 12/15/17 14:00 12/18/17 09:43 (Morphine Inj) 1 mg Q4H PRN IV PUSH 12/15/17 19:45 Pharmacy Profile Note 0 ml @ 0 mls/hr UNSCH OTHER 12/16/17 11:30 Norepinephrine Bitartrate 4 mg/ Sodium Chloride 250 ml @ 7.5 mls/hr TITRATE PRN IV 12/16/17 12:00 (Brethine Inj) 1 mg UNSCH PRN SQ 12/16/17 12:00 (Heparin Inj) 5,000 units Q12H SQ 12/17/17 10:00 Future Hold 12/17/17 22:01 OBJECTIVE: Vital Signs Date Time Temp Pulse Resp B/P (MAP) Pulse Ox O2 Delivery O2 Flow Rate FiO2 12/18/17 14:00 108 12/18/17 13:55 100 30 12/18/17 12:00 99.2 110 19 109/64 (79) 97 12/18/17 12:00 110 12/18/17 12:00 40 12/18/17 10:58 94 40 12/18/17 10:46 93 40 12/18/17 10:46 40 12/18/17 10:00 119 12/18/17 09:44 107 107/61 12/18/17 08:00 35 12/18/17 08:00 99.7 111 19 104/59 (74) 98 12/18/17 08:00 111 12/18/17 07:41 30 12/18/17 07:29 100 30 12/18/17 06:00 101 12/18/17 04:30 104 111/59 12/18/17 04:00 107 14 114/63 (80) 100 12/18/17 04:00 104 12/18/17 04:00 35 12/18/17 03:53 100 30 12/18/17 03:15 101 107/62 12/18/17 03:00 109 18 109/62 (78) 100 12/18/17 03:00 109 109/62 12/18/17 02:00 105 13 101/67 (78) 100 12/18/17 02:00 118 12/18/17 01:00 116 19 114/60 (78) 100 12/18/17 00:45 112 115/63 12/18/17 00:00 107 12/18/17 00:00 99.5 107 15 95/51 (66) 100 12/18/17 00:00 35 12/17/17 23:20 100 35 12/17/17 23:00 119 19 93/63 (73) 100 18 22:00 124 26 121/59 (79) 100 18 22:00 116 12/17/17 21:00 119 2 110/55 (73) 100 18 20:00 104 12/17/17 20:00 99.0 116 18 118/58 (78) 100 18 20:00 35 18 19:49 100 40 2018 19:30 117 108/55 2018 18:45 121 2018 18:45 121 9 104/57 (73) 100 4/20/18 18:30 114 19 121/59 (79) 100 2018 18:30 114 2018 18:15 120 18 134/58 (83) 100 2018 18:15 120 2018 18:00 119 2018 18:00 119 14 111/60 (77) 100 18 17:45 117 18 17:45 117 18 103/64 (77) 100 18 17:30 113 18 108/61 (77) 100 18 17:30 113 18 17:15 131 32 108/70 (83) 100 18 17:15 131 12/17/17 17:00 120 20 76/46 (56) 100 12/17/17 17:00 120 12/17/17 16:45 121 12/17/17 16:45 121 18 91/54 (66) 100 12/17/17 16:30 121 12/17/17 16:30 121 18 103/61 (75) 100 12/17/17 16:15 136 18 143/76 (98) 100 12/17/17 16:15 136 12/17/17 16:02 97 40 12/17/17 16:00 98.9 128 15 115/78 (90) 12/17/17 16:00 40 12/17/17 16:00 128 Vital Signs Date Time Temp Pulse Resp B/P (MAP) Pulse Ox O2 Delivery O2 Flow Rate FiO2 12/17/17 11:38 100 40 12/17/17 10:00 97.7 113 18 96/51 (66) 100 12/17/17 10:00 118 12/17/17 08:00 35 12/17/17 08:00 123 12/17/17 07:10 98 35 12/17/17 06:18 112 117/66 12/17/17 06:00 119 12/17/17 05:30 119 97/60 12/17/17 04:00 98.4 95 20 122/73 (89) 100 12/17/17 04:00 95 12/17/17 04:00 35 12/17/17 03:44 100 35 12/17/17 02:00 96 12/17/17 01:30 97 122/78 4/20/18 00:00 103 4/20/18 00:00 99.1 105 20 117/57 (77) 100 420/18 00:00 35 4/19/18 23:55 100 50 4/19/18 22:00 104 4/19/18 20:00 100 4/19/18 20:00 35 4/19/18 19:27 100 35 4/19/18 19:20 100 419/18 19:10 101 419/18 19:02 109 19/18 19:00 107 419/18 18:50 108 4/19/18 18:40 107 419/18 18:30 105 19/18 18:20 103 12/16/18 18:16 101 109/62 419/18 18:10 101 12/16/18 18:05 101 109/62 19/18 18:00 104 12/16/18 16:40 100 35 19/18 16:12 101 4/18 16:12 101 26 117/69 (85) 100 12/16/18 16:00 102.2 103 17 100 4/19/18 16:00 103 4/19/18 16:00 35 12/16/18 15:46 109 20 75/50 (58) 100 4/19/18 15:46 109 4/19/18 15:10 100 4/19/18 15:10 100 20 104/57 (73) 100 4/19/18 15:00 96 4/19/18 15:00 96 23 147/73 (97) 100 419/18 14:51 99 40 134/74 (94) 85 4/19/18 14:51 99 4/19/18 14:40 93 20 176/86 (116) 100 4/19/18 14:40 93 4/19/18 14:30 93 20 176/86 (116) 100 4/19/18 14:30 93 4/19/18 14:20 95 4/19/18 14:20 95 20 175/89 (117) 100 4/19/18 14:10 95 20 172/87 (115) 100 4/19/18 14:10 95 4/19/18 14:00 95 4/19/18 14:00 95 20 166/83 (110) 100 419/18 13:50 96 20 164/87 (112) 12/16/17 13:50 96 12/16/17 13:40 97 20 140/75 (96) 100 12/16/17 13:40 97 Laboratory Tests Test 12/17/17 08:33 12/18/17 05:15 White Blood Count 16.2 TH/MM3 11.6 TH/MM3 Red Blood Count 3.91 MIL/MM3 3.31 MIL/MM3 Hemoglobin 10.9 GM/DL 9.3 GM/DL Hematocrit 34.5 % 29.2 % Mean Corpuscular Volume 88.3 FL 88.2 FL Mean Corpuscular Hemoglobin 27.9 PG 28.1 PG Mean Corpuscular Hemoglobin Concent 31.6 % 31.9 % Red Cell Distribution Width 18.4 % 18.9 % Platelet Count 66 TH/MM3 52 TH/MM3 Mean Platelet Volume 9.3 FL 9.9 FL Neutrophils (%) (Auto) 85.3 % 88.6 % Lymphocytes (%) (Auto) 8.8 % 6.5 % Monocytes (%) (Auto) 5.7 % 4.8 % Eosinophils (%) (Auto) 0.0 % 0.0 % Basophils (%) (Auto) 0.2 % 0.1 % Neutrophils # (Auto) 13.8 TH/MM3 10.3 TH/MM3 Lymphocytes # (Auto) 1.4 TH/MM3 0.8 TH/MM3 Monocytes # (Auto) 0.9 TH/MM3 0.6 TH/MM3 Eosinophils # (Auto) 0.0 TH/MM3 0.0 TH/MM3 Basophils # (Auto) 0.0 TH/MM3 0.0 TH/MM3 CBC Comment AUTO DIFF DIFF FINAL Differential Total Cells Counted 100 Neutrophils % (Manual) 71 % Band Neutrophils % 6 % Lymphocytes % 16 % Monocytes % 6 % Neutrophils # (Manual) 12.6 TH/MM3 Myelocytes 1 % Differential Comment FINAL DIFF MANUAL Toxic Granulation 1+ Platelet Estimate LOW Platelet Morphology Comment ENLARGED Polychromasia 2.2 % Ovalocytes 1+ Laboratory Tests Test 12/17/17 08:33 12/18/17 05:15 Blood Urea Nitrogen 73 MG/DL 64 MG/DL Creatinine 2.15 MG/DL 2.04 MG/DL Random Glucose 226 MG/DL 303 MG/DL Total Protein 4.2 GM/DL 5.1 GM/DL Albumin 2.5 GM/DL 3.3 GM/DL Calcium Level 6.0 MG/DL 7.7 MG/DL Alkaline Phosphatase 317 U/L 338 U/L Aspartate Amino Transf (AST/SGOT) 21 U/L 21 U/L Alanine Aminotransferase (ALT/SGPT) 24 U/L 24 U/L Total Bilirubin 0.7 MG/DL 0.8 MG/DL Sodium Level 142 MEQ/L 138 MEQ/L Potassium Level 2.7 MEQ/L 3.6 MEQ/L Chloride Level 110 MEQ/L 100 MEQ/L Carbon Dioxide Level 22.1 MEQ/L 25.3 MEQ/L Anion Gap 10 MEQ/L 13 MEQ/L Estimat Glomerular Filtration Rate 30 ML/MIN 32 ML/MIN Protein Corrected Calcium 7.4 MG/DL Magnesium Level 1.8 MG/DL Microbiology Date/Time Source Procedure Growth Status 12/16/17 15:20 Blood Peripheral Aerobic Blood Culture - Preliminary NO GROWTH IN 2 DAYS Resulted 12/16/17 15:20 Blood Peripheral Anaerobic Blood Culture - Preliminary NO GROWTH IN 2 DAYS Resulted 12/16/17 15:05 Blood Peripheral Aerobic Blood Culture - Preliminary NO GROWTH IN 2 DAYS Resulted 12/16/17 15:05 Blood Peripheral Anaerobic Blood Culture - Final QNS - SEE AEROBE REPORT Resulted 12/16/17 12:15 Sputum Endotracheal Gram Stain - Final Resulted 12/16/17 12:15 Sputum Culture - Preliminary Gram Negative Fredo Resulted 12/16/17 12:57 Urine Catheterized Urine Urine Culture - Final Nette Glabrata Complete 12/17/17 09:50 Catheter Tip Arterial Line Wound Culture - Preliminary NO GROWTH IN 24 HOURS. Resulted Imaging: Chest X-Ray 12/17/17 0000 Signed Impressions: Service Date/Time: Sunday, December 17, 2017 08:12 - CONCLUSION: 1. No significant 24-hour interval change. 2. Stable tubes and lines. 3. Stable right chest tube with stable small right pneumothorax and subcutaneous emphysema. 4. Stable left lower lobe patchy airspace disease. Anil Aldana MD Chest X-Ray 12/16/17 0600 Signed Impressions: Service Date/Time: November 04:43 - CONCLUSION: No significant change bibasilar atelectasis and small right pneumothorax. Right chest tube remains in place. Abdiel Vidales MD PHYSICAL EXAMINATION: GENERAL: On the vent, NAD HEENT: No icterus. Moist mucosa. NECK: No swelling or adenopathy. LUNGS: Decreased breath sounds. HEART: Irregular S1 and S2. No murmurs, rubs or gallops. ABDOMEN: Bowel sounds present, obese, soft. Non tender. EXTREMITIES: 2+ diffuse edema. SKIN: No diffuse rash. NEUROLOGIC: Nonfocal. PSYCHIATRIC: Sedated. IMPRESSION: 1. New fever. temps better 2. Sepsis. Shock, on pressors 3. Pneumonia - Pseudomonas MDR. Latest sputum culture - Pseudomonas. Could be colonization. However with his seriously ill clinical condition he may have ongoing pneumonia. 4. Acute respiratory failure. Vent dependent. Extubated previously and appears to have aspirated. 5. Leukocytosis. White blood cell count decreasing. 6. Nette glabrata UTI. Persistent despite management with Diflucan. Repeat urine still positive Last urine culture on 12/14 had Nette glabrata. 6. Right-sided pneumothorax. Subcutaneous emphysema. 7. History of chronic obstructive pulmonary disease and recent chronic obstructive pulmonary disease exacerbation. 8. Renal failure. Receiving hemodialysis. 9. Elevated liver function tests. LFTs down to normal. RECOMMENDATIONS: 1. Continue vancomycin. 2. Continue Micafungin. Patient has been on broad-spectrum antibiotics in ICU with kidney failure and central line and has potential for systemic fungal infection. 3. Monitor blood, sputum and urine culture 4. Continue Zerbaxa for pneumonia. 5. Continue Levaquin. 6. Continue metronidazole. 7. Antibiotic adjustments depending on cultures and clinical status. Elsie Hedrick MD Dec 18, 2017 15:44
[2017-12-18] MEDS: ACETAMINOPHEN 325 MG TAB PO PRN (23:32)
[2017-12-19] VITALS (19 sets, daily range): BP systolic 86–108; BP diastolic 51–66; PULSE 103–136; RESP 18–43; TEMP 98.9–99.6; O2SAT 95–100
[2017-12-19] MEDS: INSULIN ASPART SUPPLEMENTAL SCALE SQ SCH ×6 (03:13→23:59)
[2017-12-19] MEDS: CHLORHEXIDINE GLUCONATE 2 % 1 PACK (2 CLOTHS) TOP SCH (03:13)
[2017-12-19] MEDS: metroNIDAZOLE 500 MG TAB PO SCH ×4 (05:04→23:44)
[2017-12-19] MEDS: CEFTOLOZANE-TAZOBACTAM INJ 150 MG in SODIUM CHLORIDE 0.9% INJ 100 ML IV SCH ×3 (06:01→23:43)
[2017-12-19 06:17] LABS: PHOSPHORUS 1.7 MG/DL (2.5-4.9)
[2017-12-19] MEDS: BUDESONIDE-FORMOTEROL 160/4.5 MCG INHALER INH SCH ×2 (07:17→21:00)
[2017-12-19] MEDS: LANTHANUM CARBONATE 500 MG CHEWABLE TABLET CHEW SCH ×3 (08:08→17:34)
[2017-12-19] MEDS: AMIODARONE 200 MG TAB PO SCH ×2 (08:08→19:55)
[2017-12-19] MEDS: DOCUSATE SODIUM 50 MG/SENNA 8.6 MG TAB PO SCH ×2 (08:08→19:55)
[2017-12-19] MEDS: DIGOXIN 0.125 MG TAB PO SCH (08:08)
[2017-12-19] MEDS: CHLORHEXIDINE 0.12% (ORAL KIT) 15 ML CUP MT SCH ×2 (08:08→19:55)
[2017-12-19] MEDS: FAMOTIDINE 20 MG TAB PO SCH ×2 (08:08→19:55)
[2017-12-19] MEDS: INSULIN DETEMIR 100 UNITS/ML VIAL SQ SCH ×2 (08:09→19:55)
[2017-12-19] MEDS: CALCITRIOL 0.25 MCG CAP PO SCH (08:09)
[2017-12-19] MEDS: SODIUM CHLORIDE 0.9% FLUSH 10 ML FLUSH IV FLUSH SCH ×2 (09:22→19:55)
[2017-12-19] MEDS: PHENYLEPHRINE INJ 160 MG in DEXTROSE 5% IN WATE 500 ML INJ 484 ML IV PRN ×2 (09:23)
[2017-12-19] MEDS: MANNITOL 12.5 GM/50 ML VIAL IV PRN (09:53)
[2017-12-19] MEDS: ALBUMIN 25% INJ 100 ML IV PRN (09:55)
[2017-12-19] MEDS: SODIUM CHLOR 0.9% 1000 ML INJ 1,000 ML OTHER PRN (09:56)
[2017-12-19] MEDS: SODIUM CHLORIDE 0.9% FLUSH 10 ML FLUSH IV FLUSH PRN (09:56)
[2017-12-19] MEDS: EPOETIN ALFA 10,000 UNITS/ML VIAL IV PUSH PRN (09:58)
[2017-12-19] MEDS: GENTAMICIN SULFATE 20 MG/2 ML VIAL OTHER PRN (09:58)
[2017-12-19] MEDS: HEPARIN SODIUM - IV 10,000 UNITS/10 ML VIAL PRN (09:58)
--- NOTE | 2017-12-19 12:35 | HHI.NPPN ---
Subjective Renal Failure: Acute History of Present Illness This is a 77-year-old male with past medical history of ischemic heart disease, atrial fibrillation, congestive heart failure, possibly diastolic dysfunction, diabetes mellitus, chronic obstructive pulmonary disease, was admitted on 11/14 with respiratory distress. Nephrology was called to see the patient because of elevated BUN and creatinine. The patient has creatinine of 1.1 on admission, which increased after 2 or 3 to 1.3-1.5 and for the last 2 days, it has been going up and now it is 2.8. The patient was initially diagnosed with pneumonia and was started on antibiotics and then later on, patient developed respiratory failure and was intubated. He was also found to have asystole on 11/27 for 3 minutes and CPR was done with ACLS protocol, and it was shown that he has large right-sided pneumothorax. The blood pressure has been stable and there are no significant hypotensive episodes documented. Most of the history was taken from he patient' s chart. Additional Remarks Remains on ventilator with matilda- synephrine infusing, now on HD, open eyes, not following any commands. Review of Systems General General Remarks Unable to do ROS as patient is intubated Objective Data Data Vital Signs Date Time Temp Pulse Resp B/P (MAP) Pulse Ox O2 Delivery O2 Flow Rate FiO2 12/19/17 12:00 136 12/19/17 11:23 96 30 12/19/17 10:00 117 12/19/17 09:23 116 111/66 12/19/17 08:22 30 12/19/17 08:00 30 12/19/17 08:00 107 12/19/17 08:00 99.2 107 20 108/59 (75) 98 12/19/17 07:17 97 30 12/19/17 06:00 110 12/19/17 04:18 100 30 12/19/17 04:00 30 12/19/17 04:00 98.9 107 18 103/60 (74) 97 12/19/17 04:00 107 12/19/17 02:00 109 12/19/17 01:11 98 30 12/19/17 00:32 18 12/19/17 00:00 115 12/19/17 00:00 30 12/19/17 00:00 99.0 115 18 100/66 (77) 97 12/18/17 22:47 98 30 12/18/17 22:00 118 12/18/17 20:00 116 12/18/17 20:00 30 12/18/17 20:00 99.1 116 18 100/66 (77) 99 12/18/17 19:30 100 30 12/18/17 18:00 113 12/18/17 16:58 100 30 12/18/17 16:00 99.0 106 19 114/68 (83) 100 12/18/17 16:00 106 12/18/17 16:00 30 12/18/17 14:00 108 12/18/17 13:55 100 30 -: 12/18/17 0515 12/18/17 0515 Tubes & Lines: Vas-Cath, Haynes Physical Exam General Appearance: Obese Eyes Eye Exam: Pupils Equal Pulmonary Resp Exam: Breath Sounds Equal Cardiology CV Exam: Regular Gastrointestinal/Abdomen GI Exam: Soft, Non-Tender, Distended Genitourinary Exam: Flank Non-Tender Integumentary Skin Exam: Clear, Warm Extremeties Extremities Exam: Moderate Edema Neurologic Neuro Exam: Awake Assessment/Plan Assessment Summary: DAVID/Acute Renal Failure Problem List: (1) DAVID (acute kidney injury) ICD Codes: N17.9 - Acute kidney failure, unspecified Plan: Acute kidney injury most likely related to prerenal vs acute tubular necrosis, either from the infection or related to his cardiac status and cardiac arrest. Creatinine is stable but minimal urinary output Continues on matilda matilda- synephrine for blood pressure support Edema is improving Plan Renal dose antibiotics Continue for follow UOP and BMP Avoid nephrotoxins as possible. Hemodialysis yesterday with UF of 2.5 l BP continues to be low on pressors. Urine out put is minimal. HD now, removing 3 liters. Mannitol and Albumin with HD. (2) Respiratory failure ICD Codes: J96.90 - Respiratory failure, unspecified, unspecified whether with hypoxia or hypercapnia Plan: Intubated weaning per educational guidance counselor. (3) Thrombocytopenia ICD Codes: D69.6 - Thrombocytopenia, unspecified Plan: Hematology has been consulted and following (4) Anemia ICD Codes: D64.9 - Anemia, unspecified Plan: has received blood transfusion. America Vela MD Dec 19, 2017 12:34
[2017-12-19] MEDS: HYDROCORTISONE SOD SUCCINATE 100 MG VIAL IV PUSH SCH ×2 (14:12→23:44)
--- NOTE | 2017-12-19 14:31 | HHI.IDPN ---
Note Infectious Disease Note ID COVERAGE Notes reviewed. Temps occ low grade Remains onn pressors WBC better, but platelets still low Sputum C/S GNR The repeat urine culture continues to have Nette glabrata. Repeat sputum culture had multiple resistant Pseudomonas aeruginosa. Urine culture from 12/08 had Nette. Previous urine culture on 11/28 had Nette glabrata. Patient was treated with Diflucan. Chest tube in place on the right due to pneumothorax. 77-year-old, white male who presents to the Emergency Department with shortness of breath. The patient has a history of COPD and CHF. He usually uses CPAP at the assisted living facility. He was noted to have been developing coughing and shortness of breath over the past couple of days, and his states that he was coughing a lot yesterday and bringing up mostly phlegm and that he was restless and could not sleep. Recent treatment at [facility] for pneumonia due to methicillin-resistant Staphylococcus aureus. PAST HISTORY: COPD, CHF, atrial fibrillation, insulin-dependent diabetes mellitus, hypertension, hyperlipidemia, gastroesophageal reflux, gastroparesis, iron deficiency anemia, oxygen-dependent. Right knee surgery, right carpal tunnel release, cardiac ablation treatment 2002. ALLERGIES: ASPIRIN, CODEINE. MEDICATIONS: Current Medications Medications (Trade) Dose Ordered Sig/Yani Route Start Time Stop Time Status Last Admin (NS Flush) 2 ml UNSCH PRN IV FLUSH 11/14/17 15:45 11/17/17 14:05 (NS Flush) 2 ml BID IV FLUSH 11/14/17 21:00 12/19/17 09:22 (Zofran Inj) 4 mg Q6H PRN IV PUSH 11/14/17 15:45 11/18/17 16:03 Miscellaneous Information 1 Q361D XX 11/14/17 15:45 11/14/17 15:45 (Chlorhexidine 2% Cloth) Taper DAILY@04 TOP 11/15/17 04:00 11/11/18 03:59 12/19/17 03:13 (Chlorhexidine 2% Cloth) 3 pack UNSCH PRN TOP 11/14/17 15:45 (Ricarda-Colace) 1 tab BID PO 11/14/17 21:00 12/17/17 22:01 (Milk Of Magnesia Liq) 30 ml Q12H PRN PO 11/14/17 15:45 (Senokot) 17.2 mg Q12H PRN PO 11/14/17 15:45 (Dulcolax Supp) 10 mg DAILY PRN RECTAL 11/14/17 15:45 (Lactulose Liq) 30 ml DAILY PRN PO 11/14/17 15:45 (Eliquis) 5 mg BID PO 11/14/17 21:00 Future Hold 11/27/17 20:17 (Lipitor) 80 mg HS PO 11/14/17 21:00 Future Hold 12/05/17 19:49 (Lanoxin) 0.125 mg DAILY PO 11/15/17 09:00 Future hold 12/19/17 08:08 (Cardizem) 60 mg QID PO 11/14/17 18:00 Future Hold 12/06/17 08:44 Patient Own Medication PT OWN MED: Mometas... HS INH 11/14/17 21:00 Future Hold (Apresoline Inj) 20 mg Q4H PRN IV PUSH 11/17/17 12:00 11/22/17 07:38 (Symbicort 160-4.5 Mcg Inh) 2 puff Q12HR INH 11/18/17 21:00 12/19/17 07:17 (Peridex 0.12% Liq) 15 ml BID@08,20 MT 11/19/17 08:00 12/19/17 08:08 (Duoneb Neb) 1 ampule Q2HR NEB PRN INH 11/18/17 22:30 12/17/17 07:19 (Pepcid) 10 mg BID PO 11/22/17 21:00 12/19/17 08:08 (NovoLOG SUPPLEMENTAL SCALE) 1 Q4HR SQ 11/26/17 16:00 12/19/17 14:13 (D50w (Vial) Inj) 25 ml UNSCH PRN IV 11/26/17 15:30 12/04/17 01:18 (Glucagon Inj) 1 mg UNSCH PRN IM/SQ 11/26/17 15:30 Fentanyl Citrate 250 ml @ 5 mls/hr TITRATE PRN IV 11/27/17 13:45 12/03/17 08:58 (Lopressor Inj) 5 mg Q6H PRN IV PUSH 11/29/17 09:15 Sodium Chloride 1,000 ml @ 0 mls/hr Q0M PRN OTHER 12/02/17 09:30 12/19/17 09:56 (Heparin Inj) 8,000 units UNSCH PRN IV FLUSH 12/02/17 09:30 Sodium Chloride 1,000 ml @ 200 mls/hr Q5H PRN IV 12/02/17 09:30 Sodium Chloride 1,000 ml @ 0 mls/hr Q0M PRN OTHER 12/02/17 09:30 (Mannitol Inj) 12.5 gm UNSCH PRN IV 12/02/17 09:30 12/19/17 09:53 Albumin Human 100 ml @ 60 mls/hr UNSCH PRN IV 12/02/17 09:30 12/19/17 09:55 (NS Flush) 5 ml UNSCH PRN IV FLUSH 12/02/17 09:30 12/19/17 09:56 (Heparin Inj) UNSCH PRN .XX 12/02/17 09:30 12/19/17 09:58 (Gentamicin Inj) 20 mg UNSCH PRN OTHER 12/02/17 09:30 12/19/17 09:58 (Zofran Inj) 4 mg UNSCH PRN IV PUSH 12/02/17 09:30 (Tylenol) 650 mg UNSCH PRN PO 12/02/17 09:30 12/18/17 23:32 (Benadryl) 25 mg UNSCH PRN PO 12/02/17 09:30 (Nitrostat Sl) 0.4 mg UNSCH PRN SL 12/02/17 09:30 (Catapres) 0.1 mg UNSCH PRN PO 12/02/17 09:30 (Epogen Inj) 4,000 units UNSCH PRN IV PUSH 12/02/17 09:30 12/19/17 09:58 (Gelfoam 12 Mm/7 Mm Top) 1 foam UNSCH PRN TOP 12/02/17 09:30 (NS Flush) UNSCH PRN IV FLUSH 12/02/17 11:15 (Heparin Inj) UNSCH PRN IV FLUSH 12/02/17 11:15 Micafungin Sodium 150 mg/Sodium Chloride 100 ml @ 100 mls/hr Q24H IV 12/06/17 12:00 12/18/17 13:20 (SoluCORTEF INJ) 50 mg Q12H IV PUSH 12/07/17 23:00 12/19/17 14:12 (Levemir Inj) 5 units Q12HR SQ 12/07/17 12:00 12/19/17 08:09 (Fosrenol Chew) 500 mg TID CHEW 12/07/17 18:00 12/19/17 14:12 (Rocaltrol) 0.5 mcg DAILY PO 12/08/17 09:00 12/17/17 08:10 Ceftolozane/ Tazobactam 150 mg/ Sodium Chloride 100 ml @ 100 mls/hr Q8H IV 12/08/17 23:00 12/19/17 06:01 Levofloxacin/ Dextrose 50 ml @ 50 mls/hr Q24H IV 12/08/17 16:00 12/18/17 15:02 (Flagyl) 500 mg Q6HR PO 12/10/17 13:30 12/19/17 14:12 Phenylephrine HCl 160 mg/Dextrose 500 ml @ 7.5 mls/hr TITRATE PRN IV 12/10/17 19:30 12/19/17 09:23 (Brethine Inj) 1 mg UNSCH PRN SQ 12/10/17 19:30 Amiodarone HCl 450 mg/Sodium Chloride 250 ml @ 33.33 mls/ hr Q7H31M PRN IV 12/13/17 12:30 12/14/17 23:52 (Cordarone) 200 mg Q12HR PO 12/15/17 14:00 12/19/17 08:08 (Morphine Inj) 1 mg Q4H PRN IV PUSH 12/15/17 19:45 Pharmacy Profile Note 0 ml @ 0 mls/hr UNSCH OTHER 12/16/17 11:30 Norepinephrine Bitartrate 4 mg/ Sodium Chloride 250 ml @ 7.5 mls/hr TITRATE PRN IV 12/16/17 12:00 (Brethine Inj) 1 mg UNSCH PRN SQ 12/16/17 12:00 (Heparin Inj) 5,000 units Q12H SQ 12/17/17 10:00 Future Hold 12/17/17 22:01 Vancomycin HCl 1000 mg/Sodium Chloride 250 ml @ 250 mls/hr ONCE ONCE IV 12/20/17 14:00 12/20/17 14:59 OBJECTIVE: Vital Signs Date Time Temp Pulse Resp B/P (MAP) Pulse Ox O2 Delivery O2 Flow Rate FiO2 12/19/17 12:00 136 12/19/17 11:23 96 30 12/19/17 10:00 117 12/19/17 09:23 116 111/66 12/19/17 08:22 30 12/19/17 08:00 30 12/19/17 08:00 107 12/19/17 08:00 99.2 107 20 108/59 (75) 98 12/19/17 07:17 97 30 12/19/17 06:00 110 12/19/17 04:18 100 30 12/19/17 04:00 30 12/19/17 04:00 98.9 107 18 103/60 (74) 97 12/19/17 04:00 107 12/19/17 02:00 109 12/19/17 01:11 98 30 12/19/17 00:32 18 12/19/17 00:00 115 12/19/17 00:00 30 12/19/17 00:00 99.0 115 18 100/66 (77) 97 12/18/17 22:47 98 30 12/18/17 22:00 118 12/18/17 20:00 116 12/18/17 20:00 30 12/18/17 20:00 99.1 116 18 100/66 (77) 99 12/18/17 19:30 100 30 12/18/17 18:00 113 12/18/17 16:58 100 30 12/18/17 16:00 99.0 106 19 114/68 (83) 100 12/18/17 16:00 106 12/18/17 16:00 30 Vital Signs Date Time Temp Pulse Resp B/P (MAP) Pulse Ox O2 Delivery O2 Flow Rate FiO2 12/18/17 14:00 108 12/18/17 13:55 100 30 12/18/17 12:00 99.2 110 19 109/64 (79) 97 12/18/17 12:00 110 12/18/17 12:00 40 12/18/17 10:58 94 40 12/18/17 10:46 93 40 12/18/17 10:46 40 12/18/17 10:00 119 12/18/17 09:44 107 107/61 12/18/17 08:00 35 12/18/17 08:00 99.7 111 19 104/59 (74) 98 12/18/17 08:00 111 12/18/17 07:41 30 12/18/17 07:29 100 30 12/18/17 06:00 101 12/18/17 04:30 104 111/59 12/18/17 04:00 107 14 114/63 (80) 100 12/18/17 04:00 104 12/18/17 04:00 35 12/18/17 03:53 100 30 12/18/17 03:15 101 107/62 12/18/17 03:00 109 18 109/62 (78) 100 12/18/17 03:00 109 109/62 12/18/17 02:00 105 13 101/67 (78) 100 12/18/17 02:00 118 12/18/17 01:00 116 19 114/60 (78) 100 12/18/17 00:45 112 115/63 12/18/17 00:00 107 12/18/17 00:00 99.5 107 15 95/51 (66) 100 12/18/17 00:00 35 2018 23:20 100 35 2018 23:00 119 19 93/63 (73) 100 18 22:00 124 26 121/59 (79) 100 18 22:00 116 2018 21:00 119 2 110/55 (73) 100 18 20:00 104 18 20:00 99.0 116 18 118/58 (78) 100 2018 20:00 35 20/18 19:49 100 40 20/18 19:30 117 108/55 420/18 18:45 121 4/20/18 18:45 121 9 104/57 (73) 100 420/18 18:30 114 19 121/59 (79) 100 20/18 18:30 114 4/20/18 18:15 120 18 134/58 (83) 100 420/18 18:15 120 4/20/18 18:00 119 4/20/18 18:00 119 14 111/60 (77) 100 20/18 17:45 117 4/20/18 17:45 117 18 103/64 (77) 100 4/20/18 17:30 113 18 108/61 (77) 100 12/17/17 17:30 113 12/17/17 17:15 131 32 108/70 (83) 100 12/17/17 17:15 131 12/17/17 17:00 120 20 76/46 (56) 100 12/17/17 17:00 120 12/17/17 16:45 121 12/17/17 16:45 121 18 91/54 (66) 100 12/17/17 16:30 121 12/17/17 16:30 121 18 103/61 (75) 100 12/17/17 16:15 136 18 143/76 (98) 100 12/17/17 16:15 136 12/17/17 16:02 97 40 12/17/17 16:00 98.9 128 15 115/78 (90) 12/17/17 16:00 40 12/17/17 16:00 128 Laboratory Tests Test 12/18/17 05:15 12/19/17 05:00 Blood Urea Nitrogen 64 MG/DL Creatinine 2.04 MG/DL Random Glucose 303 MG/DL Total Protein 5.1 GM/DL Albumin 3.3 GM/DL Calcium Level 7.7 MG/DL Magnesium Level 1.8 MG/DL Alkaline Phosphatase 338 U/L Aspartate Amino Transf (AST/SGOT) 21 U/L Alanine Aminotransferase (ALT/SGPT) 24 U/L Total Bilirubin 0.8 MG/DL Sodium Level 138 MEQ/L Potassium Level 3.6 MEQ/L Chloride Level 100 MEQ/L Carbon Dioxide Level 25.3 MEQ/L Anion Gap 13 MEQ/L Estimat Glomerular Filtration Rate 32 ML/MIN Phosphorus Level 1.7 MG/DL 25-Hydroxy Vitamin D Total 10.4 ng/ML Microbiology Date/Time Source Procedure Growth Status 12/16/17 15:20 Blood Peripheral Aerobic Blood Culture - Preliminary NO GROWTH IN 3 DAYS Resulted 12/16/17 15:20 Blood Peripheral Anaerobic Blood Culture - Preliminary NO GROWTH IN 3 DAYS Resulted 12/16/17 15:05 Blood Peripheral Aerobic Blood Culture - Preliminary NO GROWTH IN 3 DAYS Resulted 12/16/17 15:05 Blood Peripheral Anaerobic Blood Culture - Final QNS - SEE AEROBE REPORT Resulted 12/17/17 09:50 Catheter Tip Arterial Line Wound Culture - Preliminary NO GROWTH IN 48 HOURS. Resulted Laboratory Tests Test 12/17/17 08:33 4/21/18 05:15 White Blood Count 16.2 TH/MM3 11.6 TH/MM3 Red Blood Count 3.91 MIL/MM3 3.31 MIL/MM3 Hemoglobin 10.9 GM/DL 9.3 GM/DL Hematocrit 34.5 % 29.2 % Mean Corpuscular Volume 88.3 FL 88.2 FL Mean Corpuscular Hemoglobin 27.9 PG 28.1 PG Mean Corpuscular Hemoglobin Concent 31.6 % 31.9 % Red Cell Distribution Width 18.4 % 18.9 % Platelet Count 66 TH/MM3 52 TH/MM3 Mean Platelet Volume 9.3 FL 9.9 FL Neutrophils (%) (Auto) 85.3 % 88.6 % Lymphocytes (%) (Auto) 8.8 % 6.5 % Monocytes (%) (Auto) 5.7 % 4.8 % Eosinophils (%) (Auto) 0.0 % 0.0 % Basophils (%) (Auto) 0.2 % 0.1 % Neutrophils # (Auto) 13.8 TH/MM3 10.3 TH/MM3 Lymphocytes # (Auto) 1.4 TH/MM3 0.8 TH/MM3 Monocytes # (Auto) 0.9 TH/MM3 0.6 TH/MM3 Eosinophils # (Auto) 0.0 TH/MM3 0.0 TH/MM3 Basophils # (Auto) 0.0 TH/MM3 0.0 TH/MM3 CBC Comment AUTO DIFF DIFF FINAL Differential Total Cells Counted 100 Neutrophils % (Manual) 71 % Band Neutrophils % 6 % Lymphocytes % 16 % Monocytes % 6 % Neutrophils # (Manual) 12.6 TH/MM3 Myelocytes 1 % Differential Comment FINAL DIFF MANUAL Toxic Granulation 1+ Platelet Estimate LOW Platelet Morphology Comment ENLARGED Polychromasia 2.2 % Ovalocytes 1+ Microbiology Date/Time Source Procedure Growth Status 12/16/17 15:20 Blood Peripheral Aerobic Blood Culture - Preliminary NO GROWTH IN 2 DAYS Resulted 12/16/17 15:20 Blood Peripheral Anaerobic Blood Culture - Preliminary NO GROWTH IN 2 DAYS Resulted 12/16/17 15:05 Blood Peripheral Aerobic Blood Culture - Preliminary NO GROWTH IN 2 DAYS Resulted 12/16/17 15:05 Blood Peripheral Anaerobic Blood Culture - Final QNS - SEE AEROBE REPORT Resulted 12/16/17 12:15 Sputum Endotracheal Gram Stain - Final Resulted 12/16/17 12:15 Sputum Culture - Preliminary Gram Negative Fredo Resulted 12/16/17 12:57 Urine Catheterized Urine Urine Culture - Final Nette Glabrata Complete 12/17/17 09:50 Catheter Tip Arterial Line Wound Culture - Preliminary NO GROWTH IN 24 HOURS. Resulted Imaging: Chest X-Ray 12/17/17 0000 Signed Impressions: Service Date/Time: Sunday, December 17, 2017 08:12 - CONCLUSION: 1. No significant 24-hour interval change. 2. Stable tubes and lines. 3. Stable right chest tube with stable small right pneumothorax and subcutaneous emphysema. 4. Stable left lower lobe patchy airspace disease. Anil Aldana MD Chest X-Ray 12/16/17 0600 Signed Impressions: Service Date/Time: November 04:43 - CONCLUSION: No significant change bibasilar atelectasis and small right pneumothorax. Right chest tube remains in place. Abdiel Vidales MD PHYSICAL EXAMINATION: GENERAL: On the vent, NAD HEENT: No icterus. Moist mucosa. NECK: No swelling or adenopathy. LUNGS: Decreased breath sounds. HEART: Irregular S1 and S2. No murmurs, rubs or gallops. ABDOMEN: Bowel sounds present, obese, soft. Non tender. EXTREMITIES: 2+ diffuse edema. SKIN: No diffuse rash. NEUROLOGIC: Nonfocal. PSYCHIATRIC: Sedated. IMPRESSION: 1. New fever. temps low grade 2. Sepsis. Shock, on pressors 3. Pneumonia - Pseudomonas MDR. Latest sputum culture - Pseudomonas. Could be colonization. However with his seriously ill clinical condition he may have ongoing pneumonia. 4. Acute respiratory failure. Vent dependent. Extubated previously and appears to have aspirated. 5. Leukocytosis. White blood cell count decreasing. 6. Nette glabrata UTI. Persistent despite management with Diflucan. Repeat urine still positive Last urine culture on 12/14 had Nette glabrata. 6. Right-sided pneumothorax. Subcutaneous emphysema. 7. History of chronic obstructive pulmonary disease and recent chronic obstructive pulmonary disease exacerbation. 8. Renal failure. Receiving hemodialysis. 9. Elevated liver function tests. LFTs down to normal. RECOMMENDATIONS: 1. Continue vancomycin. 2. Continue Micafungin. Patient has been on broad-spectrum antibiotics in ICU with kidney failure and central line and has potential for systemic fungal infection. 3. Monitor blood, sputum and urine culture 4. Continue Zerbaxa for pneumonia. 5. Continue Levaquin. 6. Continue metronidazole. 7. Follow C/S. Antibiotic adjustments depending on cultures and clinical status. Elsie Hedrick MD Dec 19, 2017 14:31
--- NOTE | 2017-12-19 16:01 | HHI.CCPN ---
Subjective Remarks/Hospital Course This is a 77-year-old male with a medical history significant for COPD, CHF, A. fib, diabetes, that presented to emergency department from [facility] for evaluation of worsening shortness of breath over the last 3 days. The patient was been given Solu-Medrol 125 mg and 2 albuterol treatments enroute to ED. Upon presentation to the ED the patient was on a nonrebreather. He was tachypneic and tachycardic. Patient's medical history significant for MRSA pneumonia previously admitted on 10/27/16 for approximately 12 days at [facility]. The patient is normally on 2.5 L/m nasal cannula O2 home dependency, and he lives with ( normally) a PCO2 in the 80s according to his . Patient was then discharged to [facility], and then transferred to [facility] for rehabilitation. He has been on an unknown antibiotic per the family and steroids for the last 3 days. Laboratory and imaging studies were performed with noted elevation in CO2 The patient was given empiric antibiotics in the ED and placed on BiPAP. Critical care medicine was consulted. Subjective: 11/15: Patient maintained on BiPAP throughout the night O2 saturations 97-98% on FiO2 of 0.40. Hemodynamically stable. Attempts made to wean patient to nasal cannula this a.m. unsuccessful, patient's O2 saturation in the 70s, patient placed back on BiPAP. Chest x-ray pending WBC count significantly diminished, leukocytosis resolved. Patient extremely anxious, Precedex infusion initiated. 11/16: Late entry note. Patient seen 10 AM. Overnight the patient converted to A. fib RVR, despite being on Cardizem 4 times a day and metoprolol twice a day- home medications, the patient received IV Cardizem followed by amiodarone infusion. Per report the patient became hypotensive, Cardizem discontinued. Amiodarone continued. Early this a.m. patient was resting comfortably A. fib rate controlled rate. The patient suddenly converted to A. fib RVR heart rate 150s-160s, acute hypoxemic respiratory failure, requiring intubation. The patient was intubated uneventfully and continues on amiodarone at 0.5 mg/hour, rate now controlled in conjunction with sedation. Cardiology consulted, his box person is Dr. Reyes X-ray revealed lung consolidation improved, chest x- ray clear. Plan for CPAP trials in a.m.. 11/17: No acute events overnight. Patient had 1 short 8 beat run of V. tach last evening was self resolution, electrolytes within normal limits. The patient continues on amiodarone 0.5 mg/hr. CPAP trials initiated this a.m.. Tube feeds initiated at trickle feeds. Patient converted to sinus rhythm at 2 AM. 11/18 Patient remains sedated and intubated. Afebrile. 11/19 Patient was extubated yesterday however last night he was noted to choke on water provided by the family. Stat ABG demonstrated acute hypercapnic respiratory failure and was emergently intubated. Currently sedated and intubated. 11/20 Patient remains intubated on Fentanyl drip however he si awake and alert. Afebrile. 11/21 Patient is awake and alert placed on CPAP with PS:15, PEEP:5. Afebrile. 11/22 Patient remains intubated , did not tolerate CPAP trials yesterday as he became tachycardic and hypertensive. On no sedation awake and alert. 11/23 No events overnight, off sedation. 11/24: Resting comfortably on mechanical ventilation currently. Daily C Pap trials ongoing. 11/25: Sedated with Precedex, orally intubated on mechanical ventilation. Daily C Pap trials 11/26: Sedated with Precedex, orally intubated on mechanical ventilation. Got tachypneic with CPAP trial today hence placed back on PRVC. Spiked a fever, garcia cultures ordered. Went into A. fib with RVR subsequently for which being initiated on amiodarone bolus followed by drip and Lopressor 5 mg IV every 6 as needed for 11/27: This morning patient developed bradycardia followed by asystole for which she had 3 minutes CPR with ACLS protocol with return of spontaneous circulation. Post code chest x-ray revealed moderate to large right pneumothorax for which a right pigtail catheter was placed by me however despite airleak patient continue have moderate to large pneumothorax hence a second right sided 28 [place] chest tube was placed to -40 cm water pressure. Air leaks 1+ in both pigtail catheter and chest tube. Patient remains in a flutter currently. Dr. reyes evaluated patient as well following cardiac arrest. 11/28: Sedated, arousable, orally intubated on mechanical ventilation. Worsening renal function noted. MDR Pseudomonas in sputum. Right sided chest tube/ pigtail catheter with 1+ air leak in both. Subcutaneous emphysema noted over right side of face neck and right upper extremity. On 50% FiO2, PEEP +5. Poor urine output for which 500 cc and is bolus given earlier. Treated for hyperkalemia with Kayexalate PO, glucose insulin, calcium IV. 4/2: Remains sedated, arousable, orally intubated on mechanical ventilation. A. fib with RVR this morning for which she was loaded with amiodarone and initiated on amiodarone drip. Spiking fever 103.5. ID adjusting antibiotics. Stool for C. difficile ordered as he had some diarrhea today though received Kayexalate yesterday for hyperkalemia. Pigtail catheter on the right side appeared to be dislodged hence this was removed. 28 [place] chest tube in right pleural cavity repositioned. 11/30: Late entry note , patient seen at 12 noon. Creatinine continues to trend upward.Sedated but easily arousable. 12/01: Patient lightly sedated, following commands this a.m.. Creatinine noted increased, possible dialysis consideration for tomorrow. Patient to be diuresed today. CPAP trial initiated failed after 5 minutes, repeat this afternoon. 12/02: Patient placed on Lasix infusion throughout the night . No renal improvement,creatinine worsened today , plan for Vas-Cath placement and IHD today. This extensive discussion with patient and plans for tracheostomy and PEG tube placement secondary to failure to wean. 12/03: Late entry note, patient seen at 11 am. Patient scheduled for PEG placement today by Dr. Iglesias. Patient continues to fail CPAP trials. Plan for tracheostomy in the near future 12/04: Late entry note . Patient seen earlier this am. Overnight the patient became hypoglycemic, secondary to n.p.o. status, post PEG placement. D10 was initiated at 30 cc/hr. Tube feeds reinitiated Jevity 1.5, 24 hours post PEG tube placed, D10 discontinued. Patient remains on fentanyl at 100 mics/hour, lightly sedated. Patient denies pain answering by nodding head to yes and no questions. Tracheostomy planned for Wednesday12/06/[address] Calderon. 12/05: Remains intubated sedated with 50 mcg of fentanyl. On attempted CPAP trial patient remained dyspneic. Significant neuromuscular weakness persist. Chest x-ray shows small right apical pneumothorax. Tentatively plan for tracheostomy tomorrow. Dr. Calderon has already been consulted 12/06 Patient remains intubated for possible trach today. On Levophed 12 mics. Afebrile. 12/07 No events overnight. Trach was placed on hold yesterday as patient was on Levophed. He is down to 5 mics today. Afebrile. 12/08 Patient remains intubated on no sedation. CT brain this morning showed no acute process. Off Levophed. 12/09 Patient was placed back on Levophed 6 mics. Afebrile. Remains intubated on no sedation. 12/10 Patient remains intubated. On Neosyn 40 mics went into Afib with RVR HR 128 12/11 Patient remains intubated. Now on Neosyn 200 mics ( MAP 86mmHg). s/p HD yesterday with 1.5L removed. T:99.7 12/12 Patient remains sedated and intubated. Neosyn down 100 mics. For transfusion 2u PRBC and 1u PLT ( Hgb 6.7 and PLT 18 this morning) s/p HD with 3L removed yesterday. WBC is trending down. 12/13: More critically ill today, Bertin-Synephrine had to be increased to 150 mcg/ min, remains borderline hypotensive despite Bertin-Synephrine, currently in A. fib with RVR. Digoxin additional 0.25 mg IV push 1, start amiodarone infusion 12/14: Patient remains patient remains intubated currently on 50 mcg/min of Bertin- Synephrine. Remains on amiodarone infusion with heart rate better controlled 110-120. Plan for perc trach at bedside today 12/15: Remains on Bertin-Synephrine 50 mcg/min. On attempted CPAP patient had multiple PVCs and PACs. Potassium 2.7 getting replaced. Argatroban will be restarted 12/16: Patient is more lethargic, profoundly hypotensive Bertin-Synephrine increase to 300 mcg/min. Possibly septic shock. Currently on micafungin backside Levaquin and Flagyl. Add gram-positive coverage with vancomycin send blood cultures. Also will also change central line today-cleared by Dr. Vela to use subclavian access 12/17: Hypertensive encephalopathic Bertin-Synephrine at 100 mcg/min. new right subclavian central line placed left IJ will be sent for culture. Currently in A. fib with RVR heart rate varying from 110s-130. If persistent will give 2.5 metoprolol. AUGUSTA negative and argatroban discontinued. Start heparin subcu for DVT prophylaxis 12/18: Patient remains critically currently on 140 mcg/min of Bertin-Synephrine. Tachypneic with agonal appearing breathing on CPAP trial. Chest x-ray remains unchanged. Platelet count is 54 today, will hold subcu heparin. 12/19: Afebrile. Patient failed CPAP trials today. Patient underwent dialysis 3 L off today. Patient continues on vasopressor support with phenylephrine. Labs pending. Placed right chest tube to waterseal. Objective Vital Signs Date Time Temp Pulse Resp B/P (MAP) Pulse Ox O2 Delivery O2 Flow Rate FiO2 12/19/17 15:05 96 30 12/19/17 14:00 116 12/19/17 12:00 99.2 43 86/51 (63) Intake and Output 12/19/17 12/19/17 12/20/17 08:00 16:00 00:00 Intake Total 630 ml Output Total 55 ml 3000 ml Balance 575 ml -3000 ml Result Diagram: 12/18/17 0515 12/18/17 0515 Imaging Last Impressions Chest X-Ray 12/11/17 0000 Signed Impressions: Service Date/Time: Monday, December 11, 2017 10:51 - CONCLUSION: Stable chest with moderate subcutaneous emphysema and no pneumothorax. Torin Dennison MD FACR Liver Ultrasound 12/09/17 0000 Signed Impressions: Service Date/Time: November 19:18 - CONCLUSION: 1. Limited suboptimal examination with only a small portion of the liver visualized. 2. The gallbladder and common bile duct could not be visualized. The pancreas is not evaluated. 3. Left pleural effusion. Liang Jimenez MD Head CT 12/08/17 0000 Signed Impressions: Service Date/Time: Friday, December 08, 2017 08:25 - CONCLUSION: Negative for acute process. Torin Dennison MD FACR Catheter Placement X-Ray 12/02/17 0000 Signed Impressions: Service Date/Time: November 10:47 - CONCLUSION: Uncomplicated right internal jugular Vas-Cath placement as above. incidental note is made of subcutaneous emphysema within the chest wall and neck Con Dennison MD Lower Extremity Ultrasound 11/29/17 0000 Signed Impressions: Service Date/Time: Wednesday, November 29, 2017 22:02 - CONCLUSION: Normal examination. Abdiel Mcintyre MD Renal Ultrasound 11/28/17 0000 Signed Impressions: Service Date/Time: Tuesday, November 28, 2017 20:30 - CONCLUSION: Nondiagnostic exam. Rashad Bose MD Objective Remarks GENERAL: Patient is 77 yo intubated lethargic, eyes open but nonresponsive SKIN: Warm and dry. HEAD: Normocephalic. Mild subcutaneous emphysema involving right side of face neck shoulder and arm. EYES: No scleral icterus. No injection or drainage. NECK: Supple, trachea midline. No JVD or lymphadenopathy. New trach without significant bleed CARDIOVASCULAR: S1-S2 irregularly irregular, rate controlled heart rate 90's hypotensive, currently on Bertin-Synephrine at 130 mcg/min RESPIRATORY: On mechanical ventilation, air entry decreased bilaterally, scattered rhonchi bilaterally. R chest tube with + airleak. Subcutaneous emphysema or right chest wall, neck, right face and right upper extremity. GASTROINTESTINAL: Abdomen soft, non-tender, nondistended. MUSCULOSKELETAL: Bilateral peripheral edema +2 Neuro: Patient is lethargic not following commands slight withdrawal to pain, encephalopathic. No spontaneous limb movements noted A/P Problem List: (1) A-fib ICD Code: I48.91 - Unspecified atrial fibrillation (2) CHF (congestive heart failure) ICD Code: I50.9 - Heart failure, unspecified Status: Chronic (3) HTN (hypertension) ICD Code: I10 - Essential (primary) hypertension Status: Chronic (4) ADRIAN (obstructive sleep apnea) ICD Code: G47.33 - Obstructive sleep apnea (adult) (pediatric) Status: Chronic (5) MRSA pneumonia ICD Code: J15.212 - Pneumonia due to Methicillin resistant Staphylococcus aureus Status: Acute (6) Diabetes mellitus type 2, insulin dependent ICD Code: E11.9 - Type 2 diabetes mellitus without complications; Z79.4 - senior care (current) use of insulin Status: Chronic (7) COPD (chronic obstructive pulmonary disease) ICD Code: J44.9 - Chronic obstructive pulmonary disease, unspecified Status: Acute (8) Respiratory distress ICD Code: R06.03 - Acute respiratory distress Status: Acute (9) Leukocytosis ICD Code: D72.829 - Elevated white blood cell count, unspecified Status: Acute (10) Lung consolidation ICD Code: J18.1 - Lobar pneumonia, unspecified organism Status: Acute (11) Anxiety ICD Code: F41.9 - Anxiety disorder, unspecified Status: Chronic (12) Failure to wean from mechanical ventilation ICD Code: Z99.11 - Dependence on respirator [ventilator] status Assessment and Plan Plan by systems: Neurologic: Encephalopathy, metabolic Anxiety Off sedation, monitor neuro status, worsening encephalopathy secondary to sepsis Neuro checks per ICU protocol EEG: Mild- mod encephalopathy. Neuro is following- Dr. Anne. CT brain 12/08 no acute process Respiratory: Acute respiratory failure on mechanical ventilation- extubated and reintubated night of 11/18 after he was noted to choke on water provided by family. COPD exacerbation Pneumonia-MRSA, MDR Pseudomonas Right sided pneumothorax following CPR status post pigtail catheter/chest tube placement 11/27 Obstructive sleep apnea Home O2 dependency Continue with vent support keep sats >90%. s/p Trach 12/14/17 Attempt daily CPAP trials, not tolerating today due to tachypnea and agonal appearing breathing Bronchodilators, HC 50mg IV Q12 Pulmonology - Dr Price, Right sided chest tube in place. Continue 28 F right chest tube to -40 cm water pressure with underwater seal. Cardiovascular: Shock most likely septic Cardiac arrest - asystole, status post CPR 11/27 A. fib RVR History of CHF CAD Currently on Bertin-Synephrine 100 mcg/min to keep MAP>65mmHg. IV digoxin 0.25 mg 1 12/13, digoxin on hold level 0.8 today Continue amiodarone PO. IV metoprolol as needed Lactic acid:2.2 on 12/07 Hydrocortisone 50mg IV [id number] weaning once hemodynamically more stable Atorvastatin 80 daily on hold for elevated LFT's Cardiology - Dr. Reyes. Echo showed EF 65-70% Renal: DAVID Monitor renal function, electrolytes replacement as needed Nephrology Dr. Ragland. 12/02 Vas-Cath placed for initiation of IHD . FEN/GI: Elevated LFT's GERD Monitor LFT's, US liver on 12/06: non diagnostic study US liver 12/09 limited study Hepatitis profile is negative On tube feeds On Nepro @40cc/hr. Pepcid for GI prophylaxis 12/03 PEG tube placement ID: Pneumonia MRSA, MDR Pseudomonas Leukocytosis Septic shock ID following- Antibiotics per ID (on Micafungin, Zerbaxa, Flagyl, Levaquin). Vancomycin restarted 12/16/2017 Repeat sputum culture blood culture and urine culture 12/16 Stool for C. difficile negative on 11/29 and 12/06 Pertinent cultures 12/14 Urine yeast 12/09 BC: NGTD 411 Urine cx: C. Glabrata 12/06 Sputum cx: Pseudomonas MDR 11/16 sputum cultures- Kleb pneumonia 11/26 sputum cultures growing multidrug resistant Pseudomonas/MRSA 11/28 urine culture growing yeast 11/26 blood culture neg Heme HIT antibody positive AUGUSTA negative. Argatroban discontinued by Dr. Quintana. Endocrine: Glucose monitoring per ICU protocol -- SSI(high scale) Levemir 5u Q12 Msk: Polyneuropathy of Critical Illness Continue PT, OT Prophylaxis: GI Prophylaxis Famotidine BID -- SCDs Holding home dose Eliquis 5 mg BID on 11/27 in view of anticipated procedures, now with thrombocytopenia and renal failure Argatroban discontinued HIT AUGUSTA negative Started heparin subcu every 12 12/17/2017, hold due to platelet count being 53 today. Lines: Left IJ central line placed 11/29-DC 12/17. New Left central line subclavian placed 12/16/17 Right IJ vascath 12/02 Palliative care is following Level 3 Problem Qualifiers (1) COPD (chronic obstructive pulmonary disease): Qualified Codes: J44.9 - Chronic obstructive pulmonary disease, unspecified (2) Leukocytosis: Qualified Codes: D72.829 - Elevated white blood cell count, unspecified Lacy Rodriguez MD Dec 19, 2017 16:01
[2017-12-19] MEDS: MICAFUNGIN INJ 150 MG in SODIUM CHLORIDE 0.9% INJ 100 ML IV SCH (16:27)
[2017-12-19] MEDS: LEVOFLOXACIN 250 MG PREMIX INJ 50 ML IV SCH (16:31)
[2017-12-19 16:58] LABS: BICARBONATE 28.2 MEQ/L (21.0-32.0); CALCIUM 8.1 MG/DL (8.5-10.1); CREATININE 1.88 MG/DL (0.60-1.30)
[2017-12-19] MEDS ORDERED: POTASSIUM PHOSPHATE INJ 15 MMOL in SODIUM CHLORIDE 0.9% INJ 150 ML IV ONE (18:30)
[2017-12-19 18:37] LABS: AUTOMATED NEUTROPHIL # 9.9 TH/MM3 (1.8-7.7); BASOPHIL % 0.2 % (0.0-2.0); HEMOGLOBIN 10.1 GM/DL (13.0-17.0); LYMPH % 7.4 % (9.0-44.0); LYMPHOCYTE # 0.9 TH/MM3 (1.0-4.8); MEAN CELL VOLUME 89.3 FL (80.0-100.0); MEAN CORPUSCULAR HEMOGLOBIN 28.1 PG (27.0-34.0); MEAN CORPUSCULAR HGB CONC 31.4 % (32.0-36.0); MEAN PLATELET VOLUME 10.4 FL (7.0-11.0); MONO % 8.2 % (0.0-8.0); NEUT % 84.2 % (16.0-70.0); PLATELET COUNT 62 TH/MM3 (150-450); RED BLOOD COUNT 3.59 MIL/MM3 (4.50-5.90); RED CELL DISTRIBUTION WIDTH 19.5 % (11.6-17.2); WHITE BLOOD COUNT 11.8 TH/MM3 (4.0-11.0)
[2017-12-20] VITALS (19 sets, daily range): BP systolic 77–106; BP diastolic 53–69; PULSE 92–122; RESP 14–33; TEMP 98.9–99.9; O2SAT 94–99
[2017-12-20] MEDS: CHLORHEXIDINE GLUCONATE 2 % 1 PACK (2 CLOTHS) TOP SCH (03:15)
[2017-12-20 04:39] LABS: HEMATOCRIT 34.7 % (39.0-51.0); MEAN CORPUSCULAR HEMOGLOBIN 28.3 PG (27.0-34.0); MEAN CORPUSCULAR HGB CONC 31.8 % (32.0-36.0); MEAN PLATELET VOLUME 10.3 FL (7.0-11.0); PLATELET COUNT 90 TH/MM3 (150-450); RED CELL DISTRIBUTION WIDTH 20.4 % (11.6-17.2); WHITE BLOOD COUNT 12.9 TH/MM3 (4.0-11.0)
[2017-12-20 05:07] LABS: BICARBONATE 24.3 MEQ/L (21.0-32.0); CALCIUM 8.1 MG/DL (8.5-10.1); CREATININE 2.15 MG/DL (0.60-1.30)
[2017-12-20 05:09] LABS: PHOSPHORUS 2.3 MG/DL (2.5-4.9)
[2017-12-20] MEDS: metroNIDAZOLE 500 MG TAB PO SCH ×3 (05:42→17:40)
[2017-12-20] MEDS: INSULIN ASPART SUPPLEMENTAL SCALE SQ SCH ×5 (05:42→20:00)
[2017-12-20] MEDS: CEFTOLOZANE-TAZOBACTAM INJ 150 MG in SODIUM CHLORIDE 0.9% INJ 100 ML IV SCH (07:46)
[2017-12-20] MEDS: CHLORHEXIDINE 0.12% (ORAL KIT) 15 ML CUP MT SCH ×2 (07:56→21:12)
[2017-12-20] MEDS: LANTHANUM CARBONATE 500 MG CHEWABLE TABLET CHEW SCH ×3 (08:16→17:40)
[2017-12-20] MEDS: DOCUSATE SODIUM 50 MG/SENNA 8.6 MG TAB PO SCH ×2 (08:17→21:00)
[2017-12-20] MEDS: FAMOTIDINE 20 MG TAB PO SCH ×2 (08:17→21:11)
[2017-12-20] MEDS: AMIODARONE 200 MG TAB PO SCH ×2 (08:17→21:10)
[2017-12-20] MEDS: DIGOXIN 0.125 MG TAB PO SCH (08:17)
[2017-12-20] MEDS: INSULIN DETEMIR 100 UNITS/ML VIAL SQ SCH ×2 (08:18→21:00)
[2017-12-20] MEDS: SODIUM CHLORIDE 0.9% FLUSH 10 ML FLUSH IV FLUSH SCH ×2 (08:20→21:11)
[2017-12-20] MEDS: CALCITRIOL 0.25 MCG CAP PO SCH (08:22)
[2017-12-20] MEDS: BUDESONIDE-FORMOTEROL 160/4.5 MCG INHALER INH SCH ×2 (09:00→21:11)
--- NOTE | 2017-12-20 10:52 | PD.WCN.NOT ---
Wound Consult Description: Received wound management consult from Dr.John ROBERTS Communicated with: Shirley CEVALLOS, Recommendation: 1.Please cleanse wound to sacrum/ bilateral buttocks with wound cleanser or normal saline gently and pat dry. Cleanse patient of stool with Remedy barrier wipes.Apply thick layer of Calazime skin protectant paste to bilateral buttocks , and sacrum covering wound BID and PRN. Please leave open to air. 2. Use ultra sorb pads for management of incontinence and drainage from wound. 3. Cleanse bilateral lower extremities with normal saline Apply Optifoam basic to hypergranulated tissue secure with rolled gauze tape. 4. Turn patient every 2 hours and PRN for comfort and offloading of pressure from lakisha prominences Additional Information: Patient was seen today on ICU by senior writer and Shirley CEVALLOS for wound management.Patient currently vented and sedated.On Airrepy surface.Patient required full assistance from senior writer and Shirley to reposition to to left side.Cpr Instructor visualized sacral/buttocks area patient has a intact soft black eschar That presents as a DTI possible pressure injury forming the shape of a butterfly covering sacral/coccyx area and extending down inner buttocks ( Similar to a Randy ulcer) .Wound measures 7.9cm x9.6cm x eschar.Wound base is 100% black soft stable/ deep purple eschar wound edges are well defines irregular in shape.Calazime applied to sacral/buttocks area.Patient was repositioned to left side with pillows.Bilateral lower extremities have scattered unroofed bullas(partial thickness wounds) largest being ~6.0cm x ~ 4.0cm x <0.1 .Right gaiter area partial thickness wounds are hypergranulated scant serous drainage noted without odor.Wounds cleansed with normal saline pat dry Optifoam basic applied to wound bases and secured with rolled gauze/paper tape.Cpr Instructor noted that bilateral digits are black cool to touch and faint pedal pulse palpable.Skin prep applied to 10 digits. Ostomy Date of Surgery: Dec 14, 2017 [facility]inal[facility] Dec 20, 2017 10:52
[2017-12-20] MEDS ORDERED: TERBUTALINE INJ 1 MG/ML AMP SQ PRN (11:00)
--- NOTE | 2017-12-20 11:03 | HHI.CCPN ---
Subjective Remarks/Hospital Course This is a 77-year-old male with a medical history significant for COPD, CHF, A. fib, diabetes, that presented to emergency department from [facility] for evaluation of worsening shortness of breath over the last 3 days. The patient was been given Solu-Medrol 125 mg and 2 albuterol treatments enroute to ED. Upon presentation to the ED the patient was on a nonrebreather. He was tachypneic and tachycardic. Patient's medical history significant for MRSA pneumonia previously admitted on 10/27/16 for approximately 12 days at [facility]. The patient is normally on 2.5 L/m nasal cannula O2 home dependency, and he lives with ( normally) a PCO2 in the 80s according to his . Patient was then discharged to [facility], and then transferred to [facility] for rehabilitation. He has been on an unknown antibiotic per the family and steroids for the last 3 days. Laboratory and imaging studies were performed with noted elevation in CO2 The patient was given empiric antibiotics in the ED and placed on BiPAP. Critical care medicine was consulted. Subjective: 11/15: Patient maintained on BiPAP throughout the night O2 saturations 97-98% on FiO2 of 0.40. Hemodynamically stable. Attempts made to wean patient to nasal cannula this a.m. unsuccessful, patient's O2 saturation in the 70s, patient placed back on BiPAP. Chest x-ray pending WBC count significantly diminished, leukocytosis resolved. Patient extremely anxious, Precedex infusion initiated. 11/16: Late entry note. Patient seen 10 AM. Overnight the patient converted to A. fib RVR, despite being on Cardizem 4 times a day and metoprolol twice a day- home medications, the patient received IV Cardizem followed by amiodarone infusion. Per report the patient became hypotensive, Cardizem discontinued. Amiodarone continued. Early this a.m. patient was resting comfortably A. fib rate controlled rate. The patient suddenly converted to A. fib RVR heart rate 150s-160s, acute hypoxemic respiratory failure, requiring intubation. The patient was intubated uneventfully and continues on amiodarone at 0.5 mg/hour, rate now controlled in conjunction with sedation. Cardiology consulted, his mobile application tester is Dr. Reyes X-ray revealed lung consolidation improved, chest x- ray clear. Plan for CPAP trials in a.m.. 11/17: No acute events overnight. Patient had 1 short 8 beat run of V. tach last evening was self resolution, electrolytes within normal limits. The patient continues on amiodarone 0.5 mg/hr. CPAP trials initiated this a.m.. Tube feeds initiated at trickle feeds. Patient converted to sinus rhythm at 2 AM. 11/18 Patient remains sedated and intubated. Afebrile. 11/19 Patient was extubated yesterday however last night he was noted to choke on water provided by the family. Stat ABG demonstrated acute hypercapnic respiratory failure and was emergently intubated. Currently sedated and intubated. 11/20 Patient remains intubated on Fentanyl drip however he si awake and alert. Afebrile. 11/21 Patient is awake and alert placed on CPAP with PS:15, PEEP:5. Afebrile. 11/22 Patient remains intubated , did not tolerate CPAP trials yesterday as he became tachycardic and hypertensive. On no sedation awake and alert. 11/23 No events overnight, off sedation. 11/24: Resting comfortably on mechanical ventilation currently. Daily C Pap trials ongoing. 11/25: Sedated with Precedex, orally intubated on mechanical ventilation. Daily C Pap trials 11/26: Sedated with Precedex, orally intubated on mechanical ventilation. Got tachypneic with CPAP trial today hence placed back on PRVC. Spiked a fever, garcia cultures ordered. Went into A. fib with RVR subsequently for which being initiated on amiodarone bolus followed by drip and Lopressor 5 mg IV every 6 as needed for 11/27: This morning patient developed bradycardia followed by asystole for which she had 3 minutes CPR with ACLS protocol with return of spontaneous circulation. Post code chest x-ray revealed moderate to large right pneumothorax for which a right pigtail catheter was placed by me however despite airleak patient continue have moderate to large pneumothorax hence a second right sided 28 Haitian chest tube was placed to -40 cm water pressure. Air leaks 1+ in both pigtail catheter and chest tube. Patient remains in a flutter currently. Dr. reyes evaluated patient as well following cardiac arrest. 11/28: Sedated, arousable, orally intubated on mechanical ventilation. Worsening renal function noted. MDR Pseudomonas in sputum. Right sided chest tube/ pigtail catheter with 1+ air leak in both. Subcutaneous emphysema noted over right side of face neck and right upper extremity. On 50% FiO2, PEEP +5. Poor urine output for which 500 cc and is bolus given earlier. Treated for hyperkalemia with Kayexalate PO, glucose insulin, calcium IV. 4/2: Remains sedated, arousable, orally intubated on mechanical ventilation. A. fib with RVR this morning for which she was loaded with amiodarone and initiated on amiodarone drip. Spiking fever 103.5. ID adjusting antibiotics. Stool for C. difficile ordered as he had some diarrhea today though received Kayexalate yesterday for hyperkalemia. Pigtail catheter on the right side appeared to be dislodged hence this was removed. 28 Haitian chest tube in right pleural cavity repositioned. 11/30: Late entry note , patient seen at 12 noon. Creatinine continues to trend upward.Sedated but easily arousable. 12/01: Patient lightly sedated, following commands this a.m.. Creatinine noted increased, possible dialysis consideration for tomorrow. Patient to be diuresed today. CPAP trial initiated failed after 5 minutes, repeat this afternoon. 12/02: Patient placed on Lasix infusion throughout the night . No renal improvement,creatinine worsened today , plan for Vas-Cath placement and IHD today. This extensive discussion with patient and plans for tracheostomy and PEG tube placement secondary to failure to wean. 12/03: Late entry note, patient seen at 11 am. Patient scheduled for PEG placement today by Dr. Iglesias. Patient continues to fail CPAP trials. Plan for tracheostomy in the near future 12/04: Late entry note . Patient seen earlier this am. Overnight the patient became hypoglycemic, secondary to n.p.o. status, post PEG placement. D10 was initiated at 30 cc/hr. Tube feeds reinitiated Jevity 1.5, 24 hours post PEG tube placed, D10 discontinued. Patient remains on fentanyl at 100 mics/hour, lightly sedated. Patient denies pain answering by nodding head to yes and no questions. Tracheostomy planned for Wednesday12/06/[address] Calderon. 12/05: Remains intubated sedated with 50 mcg of fentanyl. On attempted CPAP trial patient remained dyspneic. Significant neuromuscular weakness persist. Chest x-ray shows small right apical pneumothorax. Tentatively plan for tracheostomy tomorrow. Dr. Calderon has already been consulted 12/06 Patient remains intubated for possible trach today. On Levophed 12 mics. Afebrile. 12/07 No events overnight. Trach was placed on hold yesterday as patient was on Levophed. He is down to 5 mics today. Afebrile. 12/08 Patient remains intubated on no sedation. CT brain this morning showed no acute process. Off Levophed. 12/09 Patient was placed back on Levophed 6 mics. Afebrile. Remains intubated on no sedation. 12/10 Patient remains intubated. On Neosyn 40 mics went into Afib with RVR HR 128 12/11 Patient remains intubated. Now on Neosyn 200 mics ( MAP 86mmHg). s/p HD yesterday with 1.5L removed. T:99.7 12/12 Patient remains sedated and intubated. Neosyn down 100 mics. For transfusion 2u PRBC and 1u PLT ( Hgb 6.7 and PLT 18 this morning) s/p HD with 3L removed yesterday. WBC is trending down. 12/13: More critically ill today, Bertin-Synephrine had to be increased to 150 mcg/ min, remains borderline hypotensive despite Bertin-Synephrine, currently in A. fib with RVR. Digoxin additional 0.25 mg IV push 1, start amiodarone infusion 12/14: Patient remains patient remains intubated currently on 50 mcg/min of Bertin- Synephrine. Remains on amiodarone infusion with heart rate better controlled 110-120. Plan for perc trach at bedside today 12/15: Remains on Bertin-Synephrine 50 mcg/min. On attempted CPAP patient had multiple PVCs and PACs. Potassium 2.7 getting replaced. Argatroban will be restarted 12/16: Patient is more lethargic, profoundly hypotensive Bertin-Synephrine increase to 300 mcg/min. Possibly septic shock. Currently on micafungin backside Levaquin and Flagyl. Add gram-positive coverage with vancomycin send blood cultures. Also will also change central line today-cleared by Dr. Vela to use subclavian access 12/17: Hypertensive encephalopathic Bertin-Synephrine at 100 mcg/min. new right subclavian central line placed left IJ will be sent for culture. Currently in A. fib with RVR heart rate varying from 110s-130. If persistent will give 2.5 metoprolol. AUGUSTA negative and argatroban discontinued. Start heparin subcu for DVT prophylaxis 12/18: Patient remains critically currently on 140 mcg/min of Bertin-Synephrine. Tachypneic with agonal appearing breathing on CPAP trial. Chest x-ray remains unchanged. Platelet count is 54 today, will hold subcu heparin. 12/19: Afebrile. Patient failed CPAP trials today. Patient underwent dialysis 3 L off today. Patient continues on vasopressor support with phenylephrine. Labs pending. Placed right chest tube to waterseal. 12/20: Continues to be critical currently on 200 mcg/min of Afj-[id number] is increased from yesterday, remains hypotensive. Atrial fibrillation with RVR persist. Will restart IV amiodarone in an attempt to cardiovert due to hypotension. However I do not believe his hypotension is due to A. fib with RVR , hypotension is mostly from sepsis. There is no indication for DC cardioversion. New sputum culture shows Pseudomonas intermediately sensitive to Levaquin. Continue Zerbaxa and vanc, and micafungin per ID. DC Levaquin and metronidazole if okay with ID Objective Vital Signs Date Time Temp Pulse Resp B/P (MAP) Pulse Ox O2 Delivery O2 Flow Rate FiO2 12/20/17 10:00 122 33 106/60 (75) 97 12/20/17 08:42 30 12/20/17 08:00 99.2 Intake and Output 12/20/17 12/20/17 12/21/17 08:00 16:00 00:00 Intake Total 842 ml Output Total 5 ml Balance 837 ml Result Diagram: 12/20/17 0400 12/20/17 0400 Imaging Last Impressions Chest X-Ray 12/11/17 0000 Signed Impressions: Service Date/Time: Monday, December 11, 2017 10:51 - CONCLUSION: Stable chest with moderate subcutaneous emphysema and no pneumothorax. Torin Dennison MD FACR Liver Ultrasound 12/09/17 0000 Signed Impressions: Service Date/Time: November 19:18 - CONCLUSION: 1. Limited suboptimal examination with only a small portion of the liver visualized. 2. The gallbladder and common bile duct could not be visualized. The pancreas is not evaluated. 3. Left pleural effusion. Liang Jimenze MD Head CT 12/08/17 0000 Signed Impressions: Service Date/Time: Friday, December 08, 2017 08:25 - CONCLUSION: Negative for acute process. Torin Dennison MD FACR Catheter Placement X-Ray 12/02/17 0000 Signed Impressions: Service Date/Time: November 10:47 - CONCLUSION: Uncomplicated right internal jugular Vas-Cath placement as above. incidental note is made of subcutaneous emphysema within the chest wall and neck Con Dennison MD Lower Extremity Ultrasound 11/29/17 0000 Signed Impressions: Service Date/Time: Wednesday, November 29, 2017 22:02 - CONCLUSION: Normal examination. Abdiel Mcintyre MD Renal Ultrasound 11/28/17 0000 Signed Impressions: Service Date/Time: Tuesday, November 28, 2017 20:30 - CONCLUSION: Nondiagnostic exam. Rashad Bose MD Objective Remarks GENERAL: Patient is 77 yo intubated lethargic, eyes open appears to track SKIN: Warm and dry. HEAD: Normocephalic. Subcutaneous emphysema involving right side of face neck shoulder and arm. EYES: No scleral icterus. No injection or drainage. NECK: Supple, trachea midline. New trach without significant bleed CARDIOVASCULAR: S1-S2 irregularly irregular, heart rate 120's hypotensive, currently on Bertin-Synephrine at 200 mcg/min RESPIRATORY: On mechanical ventilation, air entry decreased bilaterally, scattered rhonchi bilaterally. R chest tube with + airleak. Subcutaneous emphysema or right chest wall, neck, right face and right upper extremity. Failed CPAP trial immediately GASTROINTESTINAL: Abdomen soft, non-tender, nondistended. MUSCULOSKELETAL: Bilateral peripheral edema +2. Peripheral cyanosis bilateral toes, poor peripheral circulation, Neuro: Patient is lethargic, encephalopathic not following commands slight withdrawal to pain. Eyes are open appears to track Urinary Catheter: Yes Assessment to: Continue Vascular Central Line Catheter: Yes Assessment to: Continue A/P Problem List: (1) A-fib ICD Code: I48.91 - Unspecified atrial fibrillation (2) CHF (congestive heart failure) ICD Code: I50.9 - Heart failure, unspecified Status: Chronic (3) HTN (hypertension) ICD Code: I10 - Essential (primary) hypertension Status: Chronic (4) ADRIAN (obstructive sleep apnea) ICD Code: G47.33 - Obstructive sleep apnea (adult) (pediatric) Status: Chronic (5) MRSA pneumonia ICD Code: J15.212 - Pneumonia due to Methicillin resistant Staphylococcus aureus Status: Acute (6) Diabetes mellitus type 2, insulin dependent ICD Code: E11.9 - Type 2 diabetes mellitus without complications; Z79.4 - long-term (current) use of insulin Status: Chronic (7) COPD (chronic obstructive pulmonary disease) ICD Code: J44.9 - Chronic obstructive pulmonary disease, unspecified Status: Acute (8) Respiratory distress ICD Code: R06.03 - Acute respiratory distress Status: Acute (9) Leukocytosis ICD Code: D72.829 - Elevated white blood cell count, unspecified Status: Acute (10) Lung consolidation ICD Code: J18.1 - Lobar pneumonia, unspecified organism Status: Acute (11) Anxiety ICD Code: F41.9 - Anxiety disorder, unspecified Status: Chronic (12) Failure to wean from mechanical ventilation ICD Code: Z99.11 - Dependence on respirator [ventilator] status Assessment and Plan Plan by systems: Neurologic: Encephalopathy, metabolic Anxiety Off sedation, monitor neuro status, encephalopathy secondary to sepsis Neuro checks per ICU protocol EEG: Mild- mod encephalopathy. Neuro- Dr. Anne. CT brain 12/08 no acute process Respiratory: Acute respiratory failure on mechanical ventilation- extubated and reintubated night of 11/18 after he was noted to choke on water provided by family. COPD exacerbation Pneumonia-MRSA, MDR Pseudomonas Right sided pneumothorax following CPR status post pigtail catheter/chest tube placement 11/27 Obstructive sleep apnea Home O2 dependency Continue with vent support keep sats >90%. s/p Trach 12/14/17 Attempt daily CPAP trials, failed immediately today Bronchodilators, HC 50mg IV Q12 Pulmonology - Dr Price, Right sided chest tube in place. Continue 28 F right chest tube to -40 cm water pressure with underwater seal. Cardiovascular: Shock most likely septic Cardiac arrest - asystole, status post CPR 11/27 A. fib RVR History of CHF CAD Peripheral cyanosis/early gangrene of the toes Currently on Bertin-Synephrine 200 mcg/min to keep MAP>65mmHg. Due to early gangrenous changes in the toes change from Bertin-Synephrine to norepinephrine Restart amiodarone infusion to attempt conversion to NSR as A. fib may be contributing to hypotension IV digoxin 0.25 mg 1 12/13, continue QOD digoxin IV metoprolol as needed Hydrocortisone 50mg IV Q12, continue while critically ill and hypotensive Atorvastatin 80 daily on hold for elevated LFT's Cardiology - Dr. Reyes. Echo showed EF 65-70% Renal: DAVID Monitor renal function, electrolytes replacement as needed Nephrology Dr. Ragland. 12/02 Vas-Cath placed for initiation of IHD . FEN/GI: Elevated LFT's GERD Monitor LFT's, US liver on 12/06: non diagnostic study US liver 12/09 limited study. Hepatitis profile is negative On tube feeds On Nepro @40cc/hr. Pepcid for GI prophylaxis 12/03 PEG tube placement ID: Pneumonia MRSA, MDR Pseudomonas Leukocytosis Septic shock Currently on Micafungin, Zerbaxa, Flagyl, Levaquin, Vancomycin per ID New sputum culture 12/16 shows Pseudomonas intermediately sensitive to Levaquin. Continue Zerbaxa and vanc, and micafungin per ID. DC Levaquin and metronidazole if okay with ID Stool for C. difficile negative on 11/29 and 12/06 Pertinent cultures 12/14 Urine yeast 12/09 BC: NGTD 411 Urine cx: C. Glabrata 12/06, 12/16 Sputum cx: Pseudomonas MDR 11/16 sputum cultures- Kleb pneumonia 11/26 sputum cultures growing multidrug resistant Pseudomonas/MRSA 11/28 urine culture growing yeast 11/26 blood culture neg Heme Thrombocytopenia HIT antibody positive AUGUSTA negative. Argatroban discontinued by Dr. Quintana. Endocrine: Glucose monitoring per ICU protocol -- SSI(high scale) Levemir 5u Q12 Msk: Polyneuropathy of Critical Illness Continue PT, OT Prophylaxis: GI Prophylaxis Famotidine BID -- SCDs Holding home dose Eliquis 5 mg BID on 11/27 in view of thrombocytopenia and renal failure Argatroban discontinued HIT AUGUSTA negative Started heparin subcu every 12 12/17/2017, hold due to platelet count being 53, restart today 12/20, platelet count 90 Lines: Left IJ central line placed 11/29-DCd 12/17. New Left central line subclavian placed 12/16/17 Right IJ vascath 12/02 Palliative care is following CCT 32: Patient is more critical today more hypotensive currently on Bertin- Synephrine 200 mcg/min, atrial fibrillation with RVR heart rate 120-130s. Will restart amiodarone infusion. Start Levophed in an attempt to wean Bertin- Synephrine due to peripheral cyanosis/early gangrene. New sputum culture shows MDR Pseudomonas again which is only intermediately sensitive to Levaquin. Antibiotics per ID. Prognosis appears very poor with persistent shock and generalized severe weakness Problem Qualifiers (1) COPD (chronic obstructive pulmonary disease): Qualified Codes: J44.9 - Chronic obstructive pulmonary disease, unspecified (2) Leukocytosis: Qualified Codes: D72.829 - Elevated white blood cell count, unspecified Darwin Meadows MD Dec 20, 2017 11:03
[2017-12-20] MEDS: HYDROCORTISONE SOD SUCCINATE 100 MG VIAL IV PUSH SCH (11:26)
[2017-12-20] MEDS: HEPARIN SODIUM - SQ 10,000 UNITS/ML VIAL SQ SCH ×2 (11:27→21:11)
[2017-12-20] MEDS: MICAFUNGIN INJ 150 MG in SODIUM CHLORIDE 0.9% INJ 100 ML IV SCH (11:28)
[2017-12-20] MEDS ORDERED: AMIODARONE INJ 450 MG in SODIUM CHLOR 0.9% (EXCEL) INJ 241 ML IV PRN (12:00)
[2017-12-20] MEDS ORDERED: NOREPINEPHRINE INJ 4 MG in SODIUM CHLOR 0.9% 250 ML INJ 246 ML IV PRN (12:00)
--- NOTE | 2017-12-20 12:20 | HHI.IDPN ---
Note Infectious Disease Note Patient is on the ventilator. Awake and alert. He follows commands. T-max 99.9. Last blood culture had no growth. Moderate secretions suctioned via tracheostomy. Repeat sputum culture had multiple resistant Pseudomonas aeruginosa. Blood culture from 12/17 has no growth. Central line tip culture from 12/17 has no growth. Haynes catheter changed today. Urine culture from 12/08 and 12/16 had Nette. Previous urine culture on 11/28 had Nette glabrata. Patient was treated with Diflucan. Chest tube in place on the right due to pneumothorax. 77-year-old, white male who presents to the Emergency Department with shortness of breath. The patient has a history of COPD and CHF. He usually uses CPAP at the assisted living facility. He was noted to have been developing coughing and shortness of breath over the past couple of days, and his states that he was coughing a lot yesterday and bringing up mostly phlegm and that he was restless and could not sleep. Recent treatment at [facility] for pneumonia due to methicillin-resistant Staphylococcus aureus. PAST MEDICAL HISTORY: COPD, CHF, atrial fibrillation, insulin-dependent diabetes mellitus, hypertension, hyperlipidemia, gastroesophageal reflux, gastroparesis, iron deficiency anemia, oxygen-dependent. PAST SURGICAL HISTORY: Right knee surgery, right carpal tunnel release, cardiac ablation treatment 2002. ALLERGIES: ASPIRIN, CODEINE. MEDICATIONS: Current Medications Medications (Trade) Dose Ordered Sig/Yani Route PRN Reason Start Time Stop Time Status Last Admin Dose Admin Sodium Chloride (NS Flush) 2 ml UNSCH PRN IV FLUSH FLUSH AFTER USING IV ACCESS 11/14/17 15:45 11/17/17 14:05 Sodium Chloride (NS Flush) 2 ml BID IV FLUSH 11/14/17 21:00 12/20/17 08:20 Ondansetron HCl (Zofran Inj) 4 mg Q6H PRN IV PUSH NAUSEA OR VOMITING 11/14/17 15:45 11/18/17 16:03 Miscellaneous Information 1 Q361D XX 11/14/17 15:45 11/14/17 15:45 Chlorhexidine Gluconate (Chlorhexidine 2% Cloth) Taper DAILY@04 TOP 11/15/17 04:00 11/11/18 03:59 12/19/17 03:13 Chlorhexidine Gluconate (Chlorhexidine 2% Cloth) 3 pack UNSCH PRN TOP HYGIENIC CARE 11/14/17 15:45 Senna/Docusate Sodium (Ricarda-Colace) 1 tab BID PO 11/14/17 21:00 12/20/17 08:17 Magnesium Hydroxide (Milk Of Magnesia Liq) 30 ml Q12H PRN PO Mild constipation 11/14/17 15:45 Sennosides (Senokot) 17.2 mg Q12H PRN PO Moderate constipation 11/14/17 15:45 Bisacodyl (Dulcolax Supp) 10 mg DAILY PRN RECTAL SEVERE CONSITIPATION 11/14/17 15:45 Lactulose (Lactulose Liq) 30 ml DAILY PRN PO SEVERE CONSITIPATION 11/14/17 15:45 Apixaban (Eliquis) 5 mg BID PO 11/14/17 21:00 Future Hold 11/27/17 20:17 Atorvastatin Calcium (Lipitor) 80 mg HS PO 11/14/17 21:00 Future Hold 12/05/17 19:49 Diltiazem HCl (Cardizem) 60 mg QID PO 11/14/17 18:00 Future Hold 12/06/17 08:44 Patient Own Medication PT OWN MED: Mometas... HS INH 11/14/17 21:00 Future Hold Hydralazine HCl (Apresoline Inj) 20 mg Q4H PRN IV PUSH SYS BP GREATER THAN 160 MMHG 11/17/17 12:00 11/22/17 07:38 Budesonide/ Formoterol Fumarate (Symbicort 160-4.5 Mcg Inh) 2 puff Q12HR INH 11/18/17 21:00 12/19/17 07:17 Chlorhexidine Gluconate (Peridex 0.12% Liq) 15 ml BID@08,20 MT 11/19/17 08:00 12/20/17 07:56 Albuterol/ Ipratropium (Duoneb Neb) 1 ampule Q2HR NEB PRN INH WHEEZING 11/18/17 22:30 12/17/17 07:19 Famotidine (Pepcid) 10 mg BID PO 11/22/17 21:00 12/20/17 08:17 Insulin Aspart (NovoLOG SUPPLEMENTAL SCALE) 1 Q4HR SQ 11/26/17 16:00 12/20/17 08:18 Dextrose (D50w (Vial) Inj) 25 ml UNSCH PRN IV HYPOGLYCEMIA-SEE COMMENTS 11/26/17 15:30 12/04/17 01:18 Glucagon (Glucagon Inj) 1 mg UNSCH PRN IM/SQ HYPOGLYCEMIA-SEE COMMENTS 11/26/17 15:30 Fentanyl Citrate 250 ml @ 5 mls/hr TITRATE PRN IV SEDATION 11/27/17 13:45 12/03/17 08:58 Metoprolol Tartrate (Lopressor Inj) 5 mg Q6H PRN IV PUSH heart rate greater than 135/mi 11/29/17 09:15 Sodium Chloride 1,000 ml @ 0 mls/hr Q0M PRN OTHER For Prime & Rinse Back 12/02/17 09:30 12/19/17 09:56 Heparin Sodium (Porcine) (Heparin Inj) 8,000 units UNSCH PRN IV FLUSH WITH DIALYSIS 12/02/17 09:30 Sodium Chloride 1,000 ml @ 200 mls/hr Q5H PRN IV WITH DIALYSIS 12/02/17 09:30 Sodium Chloride 1,000 ml @ 0 mls/hr Q0M PRN OTHER WITH DIALYSIS 12/02/17 09:30 Mannitol (Mannitol Inj) 12.5 gm UNSCH PRN IV WITH DIALYSIS 12/02/17 09:30 12/19/17 09:53 Albumin Human 100 ml @ 60 mls/hr UNSCH PRN IV WITH DIALYSIS 12/02/17 09:30 12/19/17 09:55 Sodium Chloride (NS Flush) 5 ml UNSCH PRN IV FLUSH WITH DIALYSIS 12/02/17 09:30 12/19/17 09:56 Heparin Sodium (Porcine) (Heparin Inj) UNSCH PRN .XX WITH DIALYSIS 12/02/17 09:30 12/19/17 09:58 Gentamicin Sulfate (Gentamicin Inj) 20 mg UNSCH PRN OTHER WITH DIALYSIS 12/02/17 09:30 12/19/17 09:58 Ondansetron HCl (Zofran Inj) 4 mg UNSCH PRN IV PUSH WITH DIALYSIS 12/02/17 09:30 Acetaminophen (Tylenol) 650 mg UNSCH PRN PO for headach, pain, temp > 101F 12/02/17 09:30 12/18/17 23:32 Diphenhydramine HCl (Benadryl) 25 mg UNSCH PRN PO for hives/itching/anaphylaxis 12/02/17 09:30 Nitroglycerin (Nitrostat Sl) 0.4 mg UNSCH PRN SL CHEST PAIN 12/02/17 09:30 Clonidine (Catapres) 0.1 mg UNSCH PRN PO for BP > 180/100 X 2 readings 12/02/17 09:30 Epoetin Kvng (Epogen Inj) 4,000 units UNSCH PRN IV PUSH WITH DIALYSIS 12/02/17 09:30 12/19/17 09:58 Gelatin (Gelfoam 12 Mm/7 Mm Top) 1 foam UNSCH PRN TOP SEE LABEL COMMENTS 12/02/17 09:30 Sodium Chloride (NS Flush) UNSCH PRN IV FLUSH SEE PROTOCOL 12/02/17 11:15 Heparin Sodium (Porcine) (Heparin Inj) UNSCH PRN IV FLUSH SEE PROTOCOL 12/02/17 11:15 Micafungin Sodium 150 mg/Sodium Chloride 100 ml @ 100 mls/hr Q24H IV 12/06/17 12:00 12/20/17 11:28 Hydrocortisone Sodium Succinate (SoluCORTEF INJ) 50 mg Q12H IV PUSH 12/07/17 23:00 12/20/17 11:26 Insulin Detemir (Levemir Inj) 5 units Q12HR SQ 12/07/17 12:00 12/20/17 08:18 Lanthanum Carbonate (Fosrenol Chew) 500 mg TID CHEW 12/07/17 18:00 12/20/17 11:27 Calcitriol (Rocaltrol) 0.5 mcg DAILY PO 12/08/17 09:00 12/17/17 08:10 Ceftolozane/ Tazobactam 150 mg/ Sodium Chloride 100 ml @ 100 mls/hr Q8H IV 12/08/17 23:00 12/20/17 07:46 Levofloxacin/ Dextrose 50 ml @ 50 mls/hr Q24H IV 12/08/17 16:00 12/19/17 16:31 Metronidazole (Flagyl) 500 mg Q6HR PO 12/10/17 13:30 12/20/17 11:27 Phenylephrine HCl 160 mg/Dextrose 500 ml @ 7.5 mls/hr TITRATE PRN IV Blood pressure management 12/10/17 19:30 12/19/17 09:23 Amiodarone HCl 450 mg/Sodium Chloride 250 ml @ 33.33 mls/ hr Q7H31M PRN IV Per Protocol 12/13/17 12:30 12/14/17 23:52 Amiodarone HCl (Cordarone) 200 mg Q12HR PO 12/15/17 14:00 12/20/17 08:17 Morphine Sulfate (Morphine Inj) 1 mg Q4H PRN IV PUSH PAIN SCALE 1 TO 10 12/15/17 19:45 Pharmacy Profile Note 0 ml @ 0 mls/hr UNSCH OTHER 12/16/17 11:30 Heparin Sodium (Porcine) (Heparin Inj) 5,000 units Q12H SQ 12/17/17 10:00 Future hold 12/20/17 11:27 Vancomycin HCl 1000 mg/Sodium Chloride 250 ml @ 250 mls/hr ONCE ONCE IV 12/20/17 14:00 12/20/17 14:59 Digoxin (Lanoxin) 0.125 mg Q48H PO 12/22/17 09:00 Amiodarone HCl 450 mg/Sodium Chloride 250 ml @ 33.33 mls/ hr Q7H31M PRN IV Per Protocol 12/20/17 12:00 Norepinephrine Bitartrate 4 mg/ Sodium Chloride 250 ml @ 7.5 mls/hr TITRATE PRN IV Blood pressure management 12/20/17 12:00 Terbutaline Sulfate (Brethine Inj) 1 mg UNSCH PRN SQ For Extravasation 12/20/17 11:00 OBJECTIVE: Vital Signs Date Time Temp Pulse Resp B/P (MAP) Pulse Ox O2 Delivery O2 Flow Rate FiO2 12/20/17 10:00 122 33 106/60 (75) 97 12/20/17 10:00 122 12/20/17 08:42 96 30 12/20/17 08:00 112 12/20/17 08:00 99.2 112 14 96/62 (73) 96 12/20/17 08:00 30 12/20/17 07:30 118 103/61 12/20/17 06:00 105 12/20/17 04:08 94 45 12/20/17 04:00 30 12/20/17 04:00 112 12/20/17 04:00 99.9 119 19 91/69 (76) 96 12/20/17 02:00 105 12/20/17 01:13 99 30 12/20/17 00:00 111 12/20/17 00:00 30 12/20/17 00:00 99.7 108 18 94/53 (67) 99 12/19/17 22:09 98 30 12/19/17 22:00 105 12/19/17 20:00 98.9 117 18 100/64 (76) 97 12/19/17 20:00 30 12/19/17 20:00 107 12/19/17 19:39 99 30 12/19/17 18:00 108 12/19/17 16:00 30 12/19/17 16:00 99.6 103 18 92/54 (67) 97 12/19/17 15:05 96 30 12/19/17 14:00 116 Laboratory Tests Test 12/19/17 16:06 12/20/17 04:00 White Blood Count 11.8 TH/MM3 12.9 TH/MM3 Red Blood Count 3.59 MIL/MM3 3.90 MIL/MM3 Hemoglobin 10.1 GM/DL 11.0 GM/DL Hematocrit 32.0 % 34.7 % Mean Corpuscular Volume 89.3 FL 89.0 FL Mean Corpuscular Hemoglobin 28.1 PG 28.3 PG Mean Corpuscular Hemoglobin Concent 31.4 % 31.8 % Red Cell Distribution Width 19.5 % 20.4 % Platelet Count 62 TH/MM3 90 TH/MM3 Mean Platelet Volume 10.4 FL 10.3 FL Neutrophils (%) (Auto) 84.2 % Lymphocytes (%) (Auto) 7.4 % Monocytes (%) (Auto) 8.2 % Eosinophils (%) (Auto) 0.0 % Basophils (%) (Auto) 0.2 % Neutrophils # (Auto) 9.9 TH/MM3 Lymphocytes # (Auto) 0.9 TH/MM3 Monocytes # (Auto) 1.0 TH/MM3 Eosinophils # (Auto) 0.0 TH/MM3 Basophils # (Auto) 0.0 TH/MM3 CBC Comment DIFF FINAL Differential Comment Laboratory Tests Test 12/19/17 05:00 12/19/17 15:46 12/20/17 04:00 Phosphorus Level 1.7 MG/DL 2.3 MG/DL 25-Hydroxy Vitamin D Total 10.4 ng/ML Blood Urea Nitrogen 60 MG/DL 70 MG/DL Creatinine 1.88 MG/DL 2.15 MG/DL Random Glucose 230 MG/DL 185 MG/DL Calcium Level 8.1 MG/DL 8.1 MG/DL Sodium Level 140 MEQ/L 138 MEQ/L Potassium Level 2.9 MEQ/L 3.6 MEQ/L Chloride Level 99 MEQ/L 99 MEQ/L Carbon Dioxide Level 28.2 MEQ/L 24.3 MEQ/L Anion Gap 13 MEQ/L 15 MEQ/L Estimat Glomerular Filtration Rate 35 ML/MIN 30 ML/MIN Magnesium Level 2.0 MG/DL Imaging: Chest X-Ray 12/18/17 0600 Signed Impressions: Service Date/Time: Monday, December 18, 2017 04:26 - CONCLUSION: 1. Unchanged left basilar consolidation. 2. No discernible pneumothorax on the current study. Shaq Freire Jr., MD Chest X-Ray 12/17/17 0000 Signed Impressions: Service Date/Time: Sunday, December 17, 2017 08:12 - CONCLUSION: 1. No significant 24-hour interval change. 2. Stable tubes and lines. 3. Stable right chest tube with stable small right pneumothorax and subcutaneous emphysema. 4. Stable left lower lobe patchy airspace disease. Anil Aldana MD Chest X-Ray 12/16/17 06 Signed Impressions: Service Date/Time: November 04:43 - CONCLUSION: No significant change bibasilar atelectasis and small right pneumothorax. Right chest tube remains in place. Abdiel Vidales MD PHYSICAL EXAMINATION: GENERAL: Sedated. Awake. No acute distress. HEENT: No icterus. Moist mucosa. NECK: No swelling or adenopathy. LUNGS: Decreased breath sounds. Mild wheezing at the right base. HEART: Irregular S1 and S2. No murmurs, rubs or gallops. ABDOMEN: Bowel sounds present, obese, soft. Non tender. EXTREMITIES: 2+ diffuse edema. Edema of the legs has decreased. Cyanosis at the tips of the toes. The feet are warm. SKIN: No diffuse rash. NEUROLOGIC: Nonfocal. Follows commands. PSYCHIATRIC: Sedated. IMPRESSION: 1. New fever. Cultures negative. 2. Sepsis. 3. Pneumonia - Pseudomonas MDR. Latest sputum culture - Pseudomonas. Could be colonization. However with his seriously ill clinical condition he may have ongoing pneumonia. 4. Acute respiratory failure. Vent dependent. Extubated previously and appears to have aspirated. 5. Leukocytosis. White blood cell count decreasing. 6. Nette glabrata UTI. Persistent despite management with Diflucan. Repeat urine still positive Last urine culture on 12/14 and 12/16 had Nette glabrata, this could be due to colonization. 6. Right-sided pneumothorax. Subcutaneous emphysema. 7. History of chronic obstructive pulmonary disease and recent chronic obstructive pulmonary disease exacerbation. 8. Renal failure. Receiving hemodialysis. 9. Elevated liver function tests. LFTs down to normal. Patient still critically ill but appears stable. RECOMMENDATIONS: 1. Continue vancomycin. 2. Stop micafungin. 3. Add aerosol tobramycin. 4. Stop Zerbaxa. 5. Continue Levaquin. 6. Continue metronidazole. 7. Monitor white blood cell count. 8. Monitor clinical status. 9. Try to get patient into a stretcher chair. Antibiotic adjustments depending on cultures and clinical status. Discussed with his at bedside. Discussed with RN. Tom Long MD Dec 20, 2017 12:19
--- NOTE | 2017-12-20 12:41 | HHI.HCPN ---
Reason for visit a. To assist with evaluation and management of symptoms including: Dyspnea, pain, encephalopathy b. To assist medical decision maker(s) with: better understanding of current medical conditions; weighing benefits/burdens of medical treatment options; making medical treatment decisions. Subjective/Interval History Patient seen to follow-up on symptoms of dyspnea, pain and encephalopathy. Patient is lethargic this morning, not responding to stimuli. His states that he has undergone physical therapy and wound care this morning and is now exhausted. He is requiring phenylephrine at 200 mcg/min for blood pressure support. He continues to have cyanotic purpling of toes on both feet, likely worsening from the need for vasoconstrictor. He has seen to move his toes, not to command. He withdraws to noxious stimuli but is otherwise not interactive with examiner. The states he will squeeze her hand weakly. He failed spontaneous breathing trial yesterday after 4 minutes due to tachycardia and decreased oxygen saturations. He has not been placed on a spontaneous breathing trial today due to weakness, lethargy, decreased responsiveness. He remains ventilated with full rate support. Due to his decreased responsiveness, nonverbal pain score is being used to assess his discomfort level. He does have morphine available as needed, however none has been given since ordered. Patient is unable to make his needs known, and today is to lethargic to answer pain questions. He has multiple sources of potential pain to include multiple wounds, decubiti, invasive lines, edema with skin tears and possible ischemia to toes. . Family/friend interactions remains at his bedside. She remains unfailingly positive in the face of increasingly worsening clinical status, feeling certain that he is getting better and improving. Trying to gently discuss areas that patient continues to require full support, i.e. ventilatory dependent respiratory failure, dialysis and hemodynamic instability she continues to state all the areas where she thinks he is improving. In spite of him failing spontaneous breathing trials repeatedly with no consistent progress forward, minimal urine output less than 100 mL per day and increasing requirement for vasopressor she continues to be optimistic that he is getting well. . Advance Directives Living Will: Never completed Health Care Surrogate: Never completed Durable Power of Saddle Lining Stitcher: Never completed Advance Directive Specifics Health Care Surrogate(s): Never completed. is healthcare proxy supported by son who would be the next tier hierarchy of [place] statutes. . Documented care wishes: No living will completed. Objective Vital Signs Date Time Temp Pulse Resp B/P (MAP) Pulse Ox O2 Delivery O2 Flow Rate FiO2 12/20/17 10:00 122 33 106/60 (75) 97 12/20/17 10:00 122 12/20/17 08:42 96 30 12/20/17 08:00 112 12/20/17 08:00 99.2 112 14 96/62 (73) 96 12/20/17 08:00 30 12/20/17 07:30 118 103/61 12/20/17 06:00 105 12/20/17 04:08 94 45 12/20/17 04:00 30 12/20/17 04:00 112 12/20/17 04:00 99.9 119 19 91/69 (76) 96 12/20/17 02:00 105 12/20/17 01:13 99 30 12/20/17 00:00 111 12/20/17 00:00 30 12/20/17 00:00 99.7 108 18 94/53 (67) 99 12/19/17 22:09 98 30 12/19/17 22:00 105 12/19/17 20:00 98.9 117 18 100/64 (76) 97 12/19/17 20:00 30 12/19/17 20:00 107 12/19/17 19:39 99 30 12/19/17 18:00 108 12/19/17 16:00 30 12/19/17 16:00 99.6 103 18 92/54 (67) 97 12/19/17 15:05 96 30 12/19/17 14:00 116 Intake & Output 12/20/17 12/20/17 07:00 19:00 Intake Total 842 ml Output Total 5 ml Balance 837 ml IV Total 255 ml Tube Feeding 587 ml Output Urine Total 5 ml Physical Exam CONSTITUTIONAL/GENERAL: This is an adequately nourished patient, in no apparent distress. TUBES/LINES/DRAINS: Tracheostomy tube, right subclavian, right IJ Vas-Cath, Haynes, PEG SKIN: Multiple areas of ecchymosis with blistering and weeping edema on lower extremities on bilateral lower extremity from ruptured denuded blisters. HEAD: Atraumatic. Normocephalic. EYES: Pupils equal and round and reactive. No scleral icterus. No injection or drainage. CARDIOVASCULAR: Irregular rhythm, tachycardic rate, no rub murmur or gallop. No JVD. RESPIRATORY/CHEST: Mechanically ventilated, symmetric chest rise with decreased air entry, scattered wheezes, extensive crepitus chest tube with 1+ air leak, to waterseal GASTROINTESTINAL: Abdomen soft, nondistended, obese. Bowel sounds hypoactive. PEG intact. GENITOURINARY: Without palpable bladder distension. Haynes catheter in place with minimal dark brown output. MUSCULOSKELETAL: Extremities with diffuse mottling. 2+ dependent, weeping edema. NEUROLOGICAL: Tracheostomy, unsedated, not following commands. PSYCHIATRIC: Unresponsive . Diagnostic Tests Laboratory Laboratory Tests Test 12/18/17 05:15 12/19/17 05:00 12/19/17 15:46 12/19/17 16:06 White Blood Count 11.6 TH/MM3 (4.0-11.0) 11.8 TH/MM3 (4.0-11.0) Red Blood Count 3.31 MIL/MM3 (4.50-5.90) 3.59 MIL/MM3 (4.50-5.90) Hemoglobin 9.3 GM/DL (13.0-17.0) 10.1 GM/DL (13.0-17.0) Hematocrit 29.2 % (39.0-51.0) 32.0 % (39.0-51.0) Mean Corpuscular Volume 88.2 FL (80.0-100.0) 89.3 FL (80.0-100.0) Mean Corpuscular Hemoglobin 28.1 PG (27.0-34.0) 28.1 PG (27.0-34.0) Mean Corpuscular Hemoglobin Concent 31.9 % (32.0-36.0) 31.4 % (32.0-36.0) Red Cell Distribution Width 18.9 % (11.6-17.2) 19.5 % (11.6-17.2) Platelet Count 52 TH/MM3 (150-450) 62 TH/MM3 (150-450) Mean Platelet Volume 9.9 FL (7.0-11.0) 10.4 FL (7.0-11.0) Neutrophils (%) (Auto) 88.6 % (16.0-70.0) 84.2 % (16.0-70.0) Lymphocytes (%) (Auto) 6.5 % (9.0-44.0) 7.4 % (9.0-44.0) Monocytes (%) (Auto) 4.8 % (0.0-8.0) 8.2 % (0.0-8.0) Eosinophils (%) (Auto) 0.0 % (0.0-4.0) 0.0 % (0.0-4.0) Basophils (%) (Auto) 0.1 % (0.0-2.0) 0.2 % (0.0-2.0) Neutrophils # (Auto) 10.3 TH/MM3 (1.8-7.7) 9.9 TH/MM3 (1.8-7.7) Lymphocytes # (Auto) 0.8 TH/MM3 (1.0-4.8) 0.9 TH/MM3 (1.0-4.8) Monocytes # (Auto) 0.6 TH/MM3 (0-0.9) 1.0 TH/MM3 (0-0.9) Eosinophils # (Auto) 0.0 TH/MM3 (0-0.4) 0.0 TH/MM3 (0-0.4) Basophils # (Auto) 0.0 TH/MM3 (0-0.2) 0.0 TH/MM3 (0-0.2) CBC Comment DIFF FINAL DIFF FINAL Differential Comment Blood Urea Nitrogen 64 MG/DL (7-18) 60 MG/DL (7-18) Creatinine 2.04 MG/DL (0.60-1.30) 1.88 MG/DL (0.60-1.30) Random Glucose 303 MG/DL (74-106) 230 MG/DL (74-106) Total Protein 5.1 GM/DL (6.4-8.2) Albumin 3.3 GM/DL (3.4-5.0) Calcium Level 7.7 MG/DL (8.5-10.1) 8.1 MG/DL (8.5-10.1) Magnesium Level 1.8 MG/DL (1.5-2.5) Alkaline Phosphatase 338 U/L (45-117) Aspartate Amino Transf (AST/SGOT) 21 U/L (15-37) Alanine Aminotransferase (ALT/SGPT) 24 U/L (12-78) Total Bilirubin 0.8 MG/DL (0.2-1.0) Sodium Level 138 MEQ/L (136-145) 140 MEQ/L (136-145) Potassium Level 3.6 MEQ/L (3.5-5.1) 2.9 MEQ/L (3.5-5.1) Chloride Level 100 MEQ/L (98-107) 99 MEQ/L (98-107) Carbon Dioxide Level 25.3 MEQ/L (21.0-32.0) 28.2 MEQ/L (21.0-32.0) Anion Gap 13 MEQ/L (5-15) 13 MEQ/L (5-15) Estimat Glomerular Filtration Rate 32 ML/MIN (>89) 35 ML/MIN (>89) Random Vancomycin Level 26.4 COMMENT Phosphorus Level 1.7 MG/DL (2.5-4.9) 25-Hydroxy Vitamin D Total 10.4 ng/ML (30-100) Test 12/20/17 04:00 White Blood Count 12.9 TH/MM3 (4.0-11.0) Red Blood Count 3.90 MIL/MM3 (4.50-5.90) Hemoglobin 11.0 GM/DL (13.0-17.0) Hematocrit 34.7 % (39.0-51.0) Mean Corpuscular Volume 89.0 FL (80.0-100.0) Mean Corpuscular Hemoglobin 28.3 PG (27.0-34.0) Mean Corpuscular Hemoglobin Concent 31.8 % (32.0-36.0) Red Cell Distribution Width 20.4 % (11.6-17.2) Platelet Count 90 TH/MM3 (150-450) Mean Platelet Volume 10.3 FL (7.0-11.0) Blood Urea Nitrogen 70 MG/DL (7-18) Creatinine 2.15 MG/DL (0.60-1.30) Random Glucose 185 MG/DL (74-106) Calcium Level 8.1 MG/DL (8.5-10.1) Phosphorus Level 2.3 MG/DL (2.5-4.9) Magnesium Level 2.0 MG/DL (1.5-2.5) Sodium Level 138 MEQ/L (136-145) Potassium Level 3.6 MEQ/L (3.5-5.1) Chloride Level 99 MEQ/L (98-107) Carbon Dioxide Level 24.3 MEQ/L (21.0-32.0) Anion Gap 15 MEQ/L (5-15) Estimat Glomerular Filtration Rate 30 ML/MIN (>89) . Result Diagram: 12/20/17 0400 12/20/17 0400 Microbiology Microbiology Date/Time Source Procedure Growth Status 12/16/17 15:20 Blood Peripheral Aerobic Blood Culture - Preliminary NO GROWTH IN 4 DAYS Resulted 12/16/17 15:20 Blood Peripheral Anaerobic Blood Culture - Preliminary NO GROWTH IN 4 DAYS Resulted 12/16/17 12:15 Sputum Endotracheal Gram Stain - Final Resulted 12/16/17 12:15 Sputum Culture - Preliminary Pseudomonas Aeruginosa Mold Species Resulted 12/16/17 12:57 Urine Catheterized Urine Urine Culture - Final Nette [place] Complete 12/17/17 09:50 Catheter Tip Arterial Line Wound Culture - Final NO GROWTH IN 48 HOURS. Complete Imaging Last Impressions Chest X-Ray 12/18/17 0600 Signed Impressions: Service Date/Time: Monday, December 18, 2017 04:26 - CONCLUSION: 1. Unchanged left basilar consolidation. 2. No discernible pneumothorax on the current study. Shaq Freire Jr., MD Liver Ultrasound 12/09/17 0000 Signed Impressions: Service Date/Time: November 19:18 - CONCLUSION: 1. Limited suboptimal examination with only a small portion of the liver visualized. 2. The gallbladder and common bile duct could not be visualized. The pancreas is not evaluated. 3. Left pleural effusion. Liang Jimenez MD Head CT 12/08/17 0000 Signed Impressions: Service Date/Time: Friday, December 08, 2017 08:25 - CONCLUSION: Negative for acute process. Torin Dennison MD FACR Catheter Placement X-Ray 12/02/17 0000 Signed Impressions: Service Date/Time: November 10:47 - CONCLUSION: Uncomplicated right internal jugular Vas-Cath placement as above. incidental note is made of subcutaneous emphysema within the chest wall and neck Con Dennison MD Lower Extremity Ultrasound 11/29/17 0000 Signed Impressions: Service Date/Time: Wednesday, November 29, 2017 22:02 - CONCLUSION: Normal examination. Abdiel Mcintyre MD Renal Ultrasound 11/28/17 0000 Signed Impressions: Service Date/Time: Tuesday, November 28, 2017 20:30 - CONCLUSION: Nondiagnostic exam. Rashad Bose MD Procedures 11/16: Endotracheal intubation 11/18: Endotracheal intubation 11/27: Right-sided pigtail catheter placement to the right pleural cavity 11/27: Right chest tube placement 11/29: Left IJ central line placed, DC 12/17 12/02: Vas-Cath placement 12/03: PEG tube placement 12/14: Bronchoscopy 12/14: Tracheostomy placement 12/17: right subclavian central line placed . Assessment and Plan Disease Oriented Problem List: (1) COPD (chronic obstructive pulmonary disease) (2) Respiratory distress (3) CHF (congestive heart failure) (4) ADRIAN (obstructive sleep apnea) (5) Diabetes mellitus type 2, insulin dependent Symptom Scale: (1) Dyspnea and respiratory abnormalities (2) Pain, generalized Pertinent Non-Medical Issues Psychosocial: He was born in [place] and moved to [place] many years ago. 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 Spiritual: [employer]. Legal: No legal issues noted. Ethical issues impacting care: No ethical issues noted. . Important Contacts : Cony Varela . Prognosis His prognosis is poor. He has significant lung compromise requiring a trilogy ventilator at home with multiple recurrent admissions for pulmonary compromise. He developed cardiac arrest requiring CPR with subsequent pneumothorax of the right lung. His renal indices continue to increase and he is now at risk of requiring dialysis. His transaminases are also rising, possible liver shock. His condition is frail and he is at significant risk for continued complications and decline. Code Status: Full Code Plan PLAN: Legal decision maker: Patient is not capacitated to make his decisions. His Cony is his legal proxy. Goals: Aggressive CODE STATUS: FULL CODE SYMPTOMS: * Dyspnea: Multifactorial to include chronic obstructive pulmonary disease, right pneumothorax, atrial fibrillation, diastolic heart failure, fluid volume excess, profound muscle weakness and a 40 year history of smoking 3 packs per day. He is currently mechanically ventilated, failing CPAP trials secondary to apnea, tachycardia, hypoxia. He did not undergo CPAP trial today due to increasing instability, decreased alertness. He is receiving nebulizer treatments and hemodialysis, but CVVH is being considered secondary to patient' s hypotension which limits fluid extraction. If he can be hemodynamically stabilized, he will need to go to an LTAC for long-term weaning. * Pain: Not responding today, eyes closed. Unable to assess pain level due to patient's encephalopathy. At risk for pain from mechanical ventilation, invasive lines, chest tube, open wounds, bedbound status, weeping edema. Will need close clinical monitoring to evaluate for pain as patient is unable to make his needs known. Morphine available, no doses given. * Encephalopathy: Multifactorial to include sepsis, renal failure, hypoperfusion secondary to hypotension, hypoxia. Now on Bertin-Synephrine to maintain MAP greater than 65. Palliative care will continue to follow the patient during hospital course as condition evolves, to assist patient/decision-maker with understanding of their medical conditions, weighing benefits/burdens of treatment options, for clarification of goals of treatment. Additionally will assist with any symptoms of palliative concern. . Attestation To help prompt me to consider important information that might be impacting today's encounter and assessment, information from prior notes written by myself or my colleagues may have been "brought forward" into today's note. My signature on this note, however, is an attestation that I personally performed the exam, history, and/or decision-making noted today, and, unless otherwise indicated, the interactions with patient, family, and staff as well as the review of records all occurred today. I also attest that the listed assessment and stated plan reflect my best clinical judgment today based on the combination of historical information, prior notes, and today's exam/ interactions. When time spent is documented, it refers only to time spent today by the signer, or if indicated, combined time spent today by collaborating physician/nurse practitioner. . Linda Gilbert Dec 20, 2017 12:41
--- NOTE | 2017-12-20 13:10 | HHI.NPPN ---
Subjective Renal Failure: Acute History of Present Illness This is a 77-year-old male with past medical history of ischemic heart disease, atrial fibrillation, congestive heart failure, possibly diastolic dysfunction, diabetes mellitus, chronic obstructive pulmonary disease, was admitted on 11/14 with respiratory distress. Nephrology was called to see the patient because of elevated BUN and creatinine. The patient has creatinine of 1.1 on admission, which increased after 2 or 3 to 1.3-1.5 and for the last 2 days, it has been going up and now it is 2.8. The patient was initially diagnosed with pneumonia and was started on antibiotics and then later on, patient developed respiratory failure and was intubated. He was also found to have asystole on 11/27 for 3 minutes and CPR was done with ACLS protocol, and it was shown that he has large right-sided pneumothorax. The blood pressure has been stable and there are no significant hypotensive episodes documented. Most of the history was taken from he patient' s chart. Additional Remarks Remains on ventilator with matilda- synephrine infusing. Edema is improving. (Adeola Velez) Review of Systems General General Remarks Unable to do ROS as patient is intubated (Adeola Velez) Objective Data Data 12/20/17 12/21/17 19:00 07:00 Intake Total 100 ml Balance 100 ml IV Total 100 ml Vital Signs Date Time Temp Pulse Resp B/P (MAP) Pulse Ox O2 Delivery O2 Flow Rate FiO2 12/20/17 12:00 99.7 12/20/17 12:00 30 12/20/17 12:00 107 12/20/17 12:00 99.7 107 16 105/63 (77) 97 12/20/17 12:00 107 102/60 12/20/17 10:00 122 33 106/60 (75) 97 12/20/17 10:00 122 12/20/17 10:00 122 106/60 12/20/17 09:00 107 60/44 12/20/17 08:42 96 30 12/20/17 08:00 112 12/20/17 08:00 99.2 112 14 96/62 (73) 96 12/20/17 08:00 30 12/20/17 08:00 112 96/62 12/20/17 07:30 118 103/61 12/20/17 06:00 105 12/20/17 04:08 94 45 12/20/17 04:00 30 12/20/17 04:00 112 12/20/17 04:00 99.9 119 19 91/69 (76) 96 12/20/17 02:00 105 12/20/17 01:13 99 30 12/20/17 00:00 111 12/20/17 00:00 30 12/20/17 00:00 99.7 108 18 94/53 (67) 99 12/19/17 22:09 98 30 12/19/17 22:00 105 12/19/17 20:00 98.9 117 18 100/64 (76) 97 12/19/17 20:00 30 12/19/17 20:00 107 12/19/17 19:39 99 30 12/19/17 18:00 108 12/19/17 16:00 30 12/19/17 16:00 99.6 103 18 92/54 (67) 97 12/19/17 15:05 96 30 12/19/17 14:00 116 (Adeola VelezP) -: 12/20/17 0400 12/20/17 0400 Imaging Last Impressions Chest X-Ray 12/18/17 0600 Signed Impressions: Service Date/Time: Monday, December 18, 2017 04:26 - CONCLUSION: 1. Unchanged left basilar consolidation. 2. No discernible pneumothorax on the current study. Shaq Freire Jr., MD Liver Ultrasound 12/09/17 0000 Signed Impressions: Service Date/Time: November 19:18 - CONCLUSION: 1. Limited suboptimal examination with only a small portion of the liver visualized. 2. The gallbladder and common bile duct could not be visualized. The pancreas is not evaluated. 3. Left pleural effusion. Liang Jimenez MD Head CT 12/08/17 0000 Signed Impressions: Service Date/Time: Friday, December 08, 2017 08:25 - CONCLUSION: Negative for acute process. Torin Dennison MD FACR Catheter Placement X-Ray 12/02/17 0000 Signed Impressions: Service Date/Time: November 10:47 - CONCLUSION: Uncomplicated right internal jugular Vas-Cath placement as above. incidental note is made of subcutaneous emphysema within the chest wall and neck Con Dennison MD Lower Extremity Ultrasound 11/29/17 0000 Signed Impressions: Service Date/Time: Wednesday, November 29, 2017 22:02 - CONCLUSION: Normal examination. Abdiel Mcintyre MD Renal Ultrasound 11/28/17 0000 Signed Impressions: Service Date/Time: Tuesday, November 28, 2017 20:30 - CONCLUSION: Nondiagnostic exam. Rashad Bose MD Tubes & Lines: Vas-Cath, Haynes (Gellermann,Adeola M. BRANDS EDITOR) Physical Exam General Appearance: Obese (Gellermann,Adeola M. BRANDS EDITOR) Eyes Eye Exam: Pupils Equal (Gellermann,Adeola M. BRANDS EDITOR) Pulmonary Resp Exam: Breath Sounds Equal Resp Remarks Intubated CT right chest wall (Gellermann,Adeola M. BRANDS EDITOR) Cardiology CV Exam: Regular (Gellermann,Adeola M. BRANDS EDITOR) Gastrointestinal/Abdomen GI Exam: Soft, Non-Tender, Distended (Gellermann,Adeola M. BRANDS EDITOR) Genitourinary Exam: Flank Non-Tender (Gellermann,Adeola M. BRANDS EDITOR) Integumentary Skin Exam: Clear, Warm (Gellermann,Adeola M. BRANDS EDITOR) Extremeties Extremities Exam: Moderate Edema (Gellermann,Adeola M. BRANDS EDITOR) Neurologic Neuro Exam: Awake (Gellermann,Adeola M. BRANDS EDITOR) Assessment/Plan Assessment Summary: DAVID/Acute Renal Failure Problem List: (1) DAVID (acute kidney injury) ICD Codes: N17.9 - Acute kidney failure, unspecified Plan: Acute kidney injury most likely related to prerenal vs acute tubular necrosis, either from the infection or related to his cardiac status and cardiac arrest. Creatinine is stable but minimal urinary output Continues on matilda matilda- synephrine for blood pressure support Edema is improving Plan Renal dose antibiotics Continue for follow UOP and BMP Avoid nephrotoxins as possible. Mannitol and Albumin with HD. Hemodialysis yesterday with UF of 3 liters Hemodialysis planned for tomorrow (2) Respiratory failure ICD Codes: J96.90 - Respiratory failure, unspecified, unspecified whether with hypoxia or hypercapnia Plan: Intubated weaning per radiology scheduler. (3) Thrombocytopenia ICD Codes: D69.6 - Thrombocytopenia, unspecified Plan: Hematology has been consulted and following (4) Anemia ICD Codes: D64.9 - Anemia, unspecified Plan: has received blood transfusion. (Adeola Velez) Problem List: (1) DAVID (acute kidney injury) ICD Codes: N17.9 - Acute kidney failure, unspecified Plan: Acute kidney injury most likely related to prerenal vs acute tubular necrosis, either from the infection or related to his cardiac status and cardiac arrest. Creatinine is stable but minimal urinary output Continues on matilda matilda- synephrine for blood pressure support Edema is improving Plan Renal dose antibiotics Continue for follow UOP and BMP Avoid nephrotoxins as possible. Mannitol and Albumin with HD. Hemodialysis yesterday with UF of 3 liters Hemodialysis planned for tomorrow. Patient seen and examined,agree with above. BP is better, urine out put is minimal, HD will be in AM. (2) Respiratory failure ICD Codes: J96.90 - Respiratory failure, unspecified, unspecified whether with hypoxia or hypercapnia Plan: Intubated weaning per radiology scheduler. (3) Thrombocytopenia ICD Codes: D69.6 - Thrombocytopenia, unspecified Plan: Hematology has been consulted and following (4) Anemia ICD Codes: D64.9 - Anemia, unspecified Plan: has received blood transfusion. (America Vela MD) Adeola Velez Dec 20, 2017 13:10 America Vela MD Dec 20, 2017 17:49
[2017-12-20] MEDS ORDERED: VANCOMYCIN 1,000 MG/NS 250 ML IV ONE ×2 (14:00)
[2017-12-20] MEDS: LEVOFLOXACIN 250 MG PREMIX INJ 50 ML IV SCH (16:02)
[2017-12-20] MEDS: PHENYLEPHRINE INJ 160 MG in DEXTROSE 5% IN WATE 500 ML INJ 484 ML IV PRN ×2 (18:47)
[2017-12-20] MEDS: RESP: TOBRAMYCIN SULFATE 300 MG/5 ML NEB NEB SCH ×2 (20:00→22:40)
[2017-12-20] MEDS: RESP: ALBUTEROL 2.5 MG/IPRATROPIUM 0.5 MG NEB (PRN) INH (21:04)
[2017-12-20] MEDS: SODIUM CHLORIDE 0.9% FLUSH 10 ML FLUSH IV FLUSH PRN (21:12)
[2017-12-21] VITALS (34 sets, daily range): BP systolic 88–122; BP diastolic 50–74; PULSE 89–117; RESP 15–62; TEMP 98–99.5; O2SAT 94–100
[2017-12-21] MEDS: HYDROCORTISONE SOD SUCCINATE 100 MG VIAL IV PUSH SCH ×3 (00:27→22:14)
[2017-12-21] MEDS: metroNIDAZOLE 500 MG TAB PO SCH ×4 (00:28→18:29)
[2017-12-21] MEDS: CHLORHEXIDINE GLUCONATE 2 % 1 PACK (2 CLOTHS) TOP SCH (04:00)
[2017-12-21] MEDS: INSULIN ASPART SUPPLEMENTAL SCALE SQ SCH ×6 (04:00→20:00)
[2017-12-21 04:59] LABS: CREATININE 2.51 MG/DL (0.60-1.30)
[2017-12-21] MEDS: RESP: ALBUTEROL 2.5 MG/IPRATROPIUM 0.5 MG NEB (PRN) INH ×2 (07:54→20:01)
[2017-12-21] MEDS: CHLORHEXIDINE 0.12% (ORAL KIT) 15 ML CUP MT SCH ×2 (08:00→20:00)
[2017-12-21] MEDS: SODIUM CHLORIDE 0.9% FLUSH 10 ML FLUSH IV FLUSH SCH ×2 (08:17→22:13)
[2017-12-21] MEDS: INSULIN DETEMIR 100 UNITS/ML VIAL SQ SCH ×2 (08:18→22:14)
[2017-12-21] MEDS: AMIODARONE 200 MG TAB PO SCH ×2 (08:18→21:00)
[2017-12-21] MEDS: FAMOTIDINE 20 MG TAB PO SCH ×2 (08:18→21:00)
[2017-12-21] MEDS: DOCUSATE SODIUM 50 MG/SENNA 8.6 MG TAB PO SCH ×2 (08:18→21:00)
[2017-12-21] MEDS: CALCITRIOL 0.25 MCG CAP PO SCH (08:18)
[2017-12-21] MEDS: LANTHANUM CARBONATE 500 MG CHEWABLE TABLET CHEW SCH ×3 (08:19→18:29)
[2017-12-21] MEDS: HEPARIN SODIUM - SQ 10,000 UNITS/ML VIAL SQ SCH ×2 (08:19→22:00)
[2017-12-21] MEDS: RESP: TOBRAMYCIN SULFATE 300 MG/5 ML NEB NEB SCH ×2 (08:24→20:32)
--- NOTE | 2017-12-21 09:37 | HHI.NPPN ---
Subjective Renal Failure: Acute History of Present Illness This is a 77-year-old male with past medical history of ischemic heart disease, atrial fibrillation, congestive heart failure, possibly diastolic dysfunction, diabetes mellitus, chronic obstructive pulmonary disease, was admitted on 11/14 with respiratory distress. Nephrology was called to see the patient because of elevated BUN and creatinine. The patient has creatinine of 1.1 on admission, which increased after 2 or 3 to 1.3-1.5 and for the last 2 days, it has been going up and now it is 2.8. The patient was initially diagnosed with pneumonia and was started on antibiotics and then later on, patient developed respiratory failure and was intubated. He was also found to have asystole on 11/27 for 3 minutes and CPR was done with ACLS protocol, and it was shown that he has large right-sided pneumothorax. The blood pressure has been stable and there are no significant hypotensive episodes documented. Most of the history was taken from he patient' s chart. Additional Remarks Remains on ventilator with matilda- synephrine infusing. Opens and closes eyes to command. Dialysis planned for today. (Adeola Velez) Review of Systems General General Remarks Unable to do ROS as patient is intubated (Adeola Velez) Objective Data Data Vital Signs Date Time Temp Pulse Resp B/P (MAP) Pulse Ox O2 Delivery O2 Flow Rate FiO2 12/21/17 08:33 110 130/58 12/21/17 08:27 35 12/21/17 08:15 109 120/65 12/21/17 08:04 30 12/21/17 07:58 100 30 12/21/17 06:00 96 12/21/17 04:50 99 105/67 12/21/17 04:25 99 30 12/21/17 04:00 30 12/21/17 04:00 99.0 104 30 12/21/17 04:00 100 12/21/17 03:00 95 18 105/57 (73) 97 12/21/17 02:00 97 18 100/56 (71) 97 12/21/17 02:00 91 12/21/17 01:00 89 18 93/53 (66) 98 12/21/17 01:00 89 93/53 12/21/17 00:47 99 30 4/24/18 00:00 99.5 100 17 90/56 (67) 98 18 00:00 30 18 00:00 104 18 23:30 109 103/57 12/20/17 23:00 106 21 87/55 (66) 97 18 22:00 106 19 94/53 (67) 97 18 22:00 92 18 22:00 106 94/53 18 21:03 97 30 12/20/17 21:00 105 26 77/53 (61) 98 18 20:00 103 18 20:00 30 18 20:00 99.0 104 26 81/57 (65) 98 12/20/17 19:15 110 110/57 18 18:47 98 106/62 12/20/17 18:00 98 12/20/17 16:00 107 12/20/17 16:00 98.9 12/20/17 16:00 98.9 107 18 96/54 (68) 97 18 16:00 107 96/54 12/20/17 16:00 30 12/20/17 15:13 98 30 12/20/17 15:05 110 103/59 12/20/17 14:00 109 12/20/17 14:00 109 19 101/62 (75) 97 12/20/17 13:00 107 108/61 18 12:30 114 102/60 12/20/17 12:00 99.7 12/20/17 12:00 30 12/20/17 12:00 107 12/20/17 12:00 99.7 107 16 105/63 (77) 97 12/20/17 12:00 107 105/63 12/20/17 10:00 122 33 106/60 (75) 97 12/20/17 10:00 122 12/20/17 10:00 122 106/60 (Adeola Velez) -: 12/20/17 0400 12/21/17 0325 Tubes & Lines: Vas-Cath, Haynes (Adeola Velez) Physical Exam General Appearance: Obese (Gellermann,Adeola M. ROLLER TURNER) Eyes Eye Exam: Pupils Equal (Adeola VelezP) Pulmonary Resp Exam: Breath Sounds Equal Resp Remarks Intubated CT right chest wall (Adeola Velez) Cardiology CV Exam: Regular (Adeola VelezP) Gastrointestinal/Abdomen GI Exam: Soft, Non-Tender, Distended (Adeola VelezP) Genitourinary Exam: Flank Non-Tender (Adeola VelezP) Integumentary Skin Exam: Clear, Warm (Adeola Velez) Extremeties Extremities Exam: Moderate Edema (Adeola Velez) Neurologic Neuro Exam: Awake (Adeola Velez) Assessment/Plan Assessment Summary: DAVID/Acute Renal Failure Problem List: (1) DAVID (acute kidney injury) ICD Codes: N17.9 - Acute kidney failure, unspecified Plan: Acute kidney injury most likely related to acute tubular necrosis, either from the infection or related to his cardiac status and cardiac arrest. Creatinine is stable but minimal urinary output Continues on matilda matilda- synephrine for blood pressure support Edema is improving Plan Renal dose antibiotics Continue for follow UOP and BMP Avoid nephrotoxins as possible. Mannitol and Albumin with HD. Hemodialysis planned for today remove fluid as tolerated. (2) Respiratory failure ICD Codes: J96.90 - Respiratory failure, unspecified, unspecified whether with hypoxia or hypercapnia Plan: Intubated weaning per shell press operator. (3) Thrombocytopenia ICD Codes: D69.6 - Thrombocytopenia, unspecified Plan: Hematology has been consulted and following (4) Anemia ICD Codes: D64.9 - Anemia, unspecified Plan: has received blood transfusion. (Adeola Velez) Problem List: (1) DAVID (acute kidney injury) ICD Codes: N17.9 - Acute kidney failure, unspecified Plan: Acute kidney injury most likely related to acute tubular necrosis, either from the infection or related to his cardiac status and cardiac arrest. Creatinine is stable but minimal urinary output Continues on matilda matilda- synephrine for blood pressure support Edema is improving Plan Renal dose antibiotics Continue for follow UOP and BMP Avoid nephrotoxins as possible. Mannitol and Albumin with HD. Hemodialysis planned for today remove fluid as tolerated. Patient seen and examined, agree with above. HD to continue every other day or as needed. (2) Respiratory failure ICD Codes: J96.90 - Respiratory failure, unspecified, unspecified whether with hypoxia or hypercapnia Plan: Intubated weaning per shell press operator. (3) Thrombocytopenia ICD Codes: D69.6 - Thrombocytopenia, unspecified Plan: Hematology has been consulted and following (4) Anemia ICD Codes: D64.9 - Anemia, unspecified Plan: has received blood transfusion. (America Vela MD) Adeola Velez Dec 21, 2017 09:37 America Vela MD Dec 22, 2017 18:56
--- NOTE | 2017-12-21 13:20 | HHI.IDPN ---
Note Infectious Disease Note Patient is on the ventilator. Awake and alert. Undergoing dialysis. Watching television. He follows commands. Afebrile On Phenylephrine 128 mg/mL Last blood culture had no growth. Moderate secretions via tracheostomy. Repeat sputum culture had multiple resistant Pseudomonas aeruginosa. Laboratory Tests Test 12/21/17 16:27 12/22/17 05:00 12/23/17 06:00 White Blood Count 8.7 TH/MM3 8.2 TH/MM3 8.1 TH/MM3 Red Blood Count 3.34 MIL/MM3 3.13 MIL/MM3 3.31 MIL/MM3 Hemoglobin 9.4 GM/DL 9.1 GM/DL 9.4 GM/DL Hematocrit 29.7 % 28.0 % 29.7 % Mean Corpuscular Volume 88.8 FL 89.5 FL 89.7 FL Mean Corpuscular Hemoglobin 28.1 PG 29.1 PG 28.5 PG Mean Corpuscular Hemoglobin Concent 31.6 % 32.5 % 31.8 % Red Cell Distribution Width 19.6 % 20.2 % 21.7 % Platelet Count 74 TH/MM3 81 TH/MM3 141 TH/MM3 Mean Platelet Volume 11.0 FL 10.2 FL 10.1 FL Neutrophils (%) (Auto) 73.2 % 76.1 % 81.9 % Lymphocytes (%) (Auto) 19.4 % 15.7 % 10.8 % Monocytes (%) (Auto) 6.8 % 7.8 % 7.0 % Eosinophils (%) (Auto) 0.3 % 0.1 % 0.0 % Basophils (%) (Auto) 0.3 % 0.3 % 0.3 % Neutrophils # (Auto) 6.4 TH/MM3 6.2 TH/MM3 6.6 TH/MM3 Lymphocytes # (Auto) 1.7 TH/MM3 1.3 TH/MM3 0.9 TH/MM3 Monocytes # (Auto) 0.6 TH/MM3 0.6 TH/MM3 0.6 TH/MM3 Eosinophils # (Auto) 0.0 TH/MM3 0.0 TH/MM3 0.0 TH/MM3 Basophils # (Auto) 0.0 TH/MM3 0.0 TH/MM3 0.0 TH/MM3 CBC Comment AUTO DIFF AUTO DIFF AUTO DIFF Differential Total Cells Counted 100 100 100 Neutrophils % (Manual) 76 % 67 % 77 % Band Neutrophils % 6 % 16 % 7 % Lymphocytes % 15 % 12 % 4 % Monocytes % 1 % 3 % 10 % Neutrophils # (Manual) 7.3 TH/MM3 6.9 TH/MM3 7.0 TH/MM3 Metamyelocytes 1 % Myelocytes 1 % 1 % 2 % Nucleated Red Blood Cells 1 /100 WBC Differential Comment FINAL DIFF MANUAL FINAL DIFF MANUAL FINAL DIFF MANUAL Toxic Granulation 3+ Platelet Estimate LOW LOW LOW Platelet Morphology Comment NORMAL NORMAL ENLARGED Basophilic Stippling FAINT Spherocytes 1+ Ovalocytes 1+ Stomatocytes 1+ 2+ Acanthocytes OCC Basophils % 1 % Polychromasia 2.2 % Laboratory Tests Test 12/21/17 16:27 12/22/17 05:00 12/23/17 06:00 Blood Urea Nitrogen 78 MG/DL 88 MG/DL 101 MG/DL Creatinine 2.28 MG/DL 2.48 MG/DL 2.78 MG/DL Random Glucose 178 MG/DL 296 MG/DL 168 MG/DL Total Protein 5.5 GM/DL 5.0 GM/DL 4.8 GM/DL Albumin 3.7 GM/DL 3.1 GM/DL 2.8 GM/DL Calcium Level 7.8 MG/DL 7.6 MG/DL 8.0 MG/DL Magnesium Level 1.8 MG/DL 1.9 MG/DL 1.9 MG/DL Alkaline Phosphatase 286 U/L 268 U/L 266 U/L Aspartate Amino Transf (AST/SGOT) 15 U/L 16 U/L 19 U/L Alanine Aminotransferase (ALT/SGPT) 21 U/L 18 U/L 17 U/L Total Bilirubin 0.7 MG/DL 0.6 MG/DL 0.6 MG/DL Sodium Level 137 MEQ/L 135 MEQ/L 133 MEQ/L Potassium Level 3.0 MEQ/L 3.1 MEQ/L 4.0 MEQ/L Chloride Level 98 MEQ/L 94 MEQ/L 95 MEQ/L Carbon Dioxide Level 25.6 MEQ/L 25.7 MEQ/L 23.2 MEQ/L Anion Gap 13 MEQ/L 15 MEQ/L 15 MEQ/L Estimat Glomerular Filtration Rate 28 ML/MIN 25 ML/MIN 22 ML/MIN Phosphorus Level 1.6 MG/DL 1.8 MG/DL 1.9 MG/DL Blood culture from 12/17 has no growth. Central line tip culture from 12/17 has no growth. Haynes catheter changed today. Urine culture from 12/08 and 12/16 had Nette. Previous urine culture on 11/28 had Nette glabrata. Patient was treated with Diflucan. Chest tube in place on the right due to pneumothorax. 77-year-old, white male who presents to the Emergency Department with shortness of breath. The patient has a history of COPD and CHF. He usually uses CPAP at the assisted living facility. He was noted to have been developing coughing and shortness of breath over the past couple of days, and his states that he was coughing a lot yesterday and bringing up mostly phlegm and that he was restless and could not sleep. Recent treatment at [facility] for pneumonia due to methicillin-resistant Staphylococcus aureus. PAST MEDICAL HISTORY: COPD, CHF, atrial fibrillation, insulin-dependent diabetes mellitus, hypertension, hyperlipidemia, gastroesophageal reflux, gastroparesis, iron deficiency anemia, oxygen-dependent. PAST SURGICAL HISTORY: Right knee surgery, right carpal tunnel release, cardiac ablation treatment 2002. ALLERGIES: ASPIRIN, CODEINE. MEDICATIONS: Current Medications Medications (Trade) Dose Ordered Sig/Yani Route PRN Reason Start Time Stop Time Status Last Admin Dose Admin Sodium Chloride (NS Flush) 2 ml UNSCH PRN IV FLUSH FLUSH AFTER USING IV ACCESS 11/14/17 15:45 11/17/17 14:05 Sodium Chloride (NS Flush) 2 ml BID IV FLUSH 11/14/17 21:00 12/21/17 08:17 Ondansetron HCl (Zofran Inj) 4 mg Q6H PRN IV PUSH NAUSEA OR VOMITING 11/14/17 15:45 11/18/17 16:03 Miscellaneous Information 1 Q361D XX 11/14/17 15:45 11/14/17 15:45 Chlorhexidine Gluconate (Chlorhexidine 2% Cloth) Taper DAILY@04 TOP 11/15/17 04:00 11/11/18 03:59 12/19/17 03:13 Chlorhexidine Gluconate (Chlorhexidine 2% Cloth) 3 pack UNSCH PRN TOP HYGIENIC CARE 11/14/17 15:45 Senna/Docusate Sodium (Ricarda-Colace) 1 tab BID PO 11/14/17 21:00 12/21/17 08:18 Magnesium Hydroxide (Milk Of Magnesia Liq) 30 ml Q12H PRN PO Mild constipation 11/14/17 15:45 Sennosides (Senokot) 17.2 mg Q12H PRN PO Moderate constipation 11/14/17 15:45 Bisacodyl (Dulcolax Supp) 10 mg DAILY PRN RECTAL SEVERE CONSITIPATION 11/14/17 15:45 Lactulose (Lactulose Liq) 30 ml DAILY PRN PO SEVERE CONSITIPATION 11/14/17 15:45 Apixaban (Eliquis) 5 mg BID PO 11/14/17 21:00 Future Hold 11/27/17 20:17 Atorvastatin Calcium (Lipitor) 80 mg HS PO 11/14/17 21:00 Future Hold 12/05/17 19:49 Diltiazem HCl (Cardizem) 60 mg QID PO 11/14/17 18:00 Future Hold 12/06/17 08:44 Patient Own Medication PT OWN MED: Mometas... HS INH 11/14/17 21:00 Future Hold Hydralazine HCl (Apresoline Inj) 20 mg Q4H PRN IV PUSH SYS BP GREATER THAN 160 MMHG 11/17/17 12:00 11/22/17 07:38 Budesonide/ Formoterol Fumarate (Symbicort 160-4.5 Mcg Inh) 2 puff Q12HR INH 11/18/17 21:00 12/20/17 21:11 Chlorhexidine Gluconate (Peridex 0.12% Liq) 15 ml BID@08,20 MT 11/19/17 08:00 12/21/17 08:00 Albuterol/ Ipratropium (Duoneb Neb) 1 ampule Q2HR NEB PRN INH WHEEZING 11/18/17 22:30 12/21/17 07:54 Famotidine (Pepcid) 10 mg BID PO 11/22/17 21:00 12/21/17 08:18 Insulin Aspart (NovoLOG SUPPLEMENTAL SCALE) 1 Q4HR SQ 11/26/17 16:00 12/21/17 12:00 Dextrose (D50w (Vial) Inj) 25 ml UNSCH PRN IV HYPOGLYCEMIA-SEE COMMENTS 11/26/17 15:30 12/04/17 01:18 Glucagon (Glucagon Inj) 1 mg UNSCH PRN IM/SQ HYPOGLYCEMIA-SEE COMMENTS 11/26/17 15:30 Fentanyl Citrate 250 ml @ 5 mls/hr TITRATE PRN IV SEDATION 11/27/17 13:45 12/03/17 08:58 Metoprolol Tartrate (Lopressor Inj) 5 mg Q6H PRN IV PUSH heart rate greater than 135/mi 11/29/17 09:15 Sodium Chloride 1,000 ml @ 0 mls/hr Q0M PRN OTHER For Prime & Rinse Back 12/02/17 09:30 12/19/17 09:56 Heparin Sodium (Porcine) (Heparin Inj) 8,000 units UNSCH PRN IV FLUSH WITH DIALYSIS 12/02/17 09:30 Sodium Chloride 1,000 ml @ 200 mls/hr Q5H PRN IV WITH DIALYSIS 12/02/17 09:30 Sodium Chloride 1,000 ml @ 0 mls/hr Q0M PRN OTHER WITH DIALYSIS 12/02/17 09:30 Mannitol (Mannitol Inj) 12.5 gm UNSCH PRN IV WITH DIALYSIS 12/02/17 09:30 12/19/17 09:53 Albumin Human 100 ml @ 60 mls/hr UNSCH PRN IV WITH DIALYSIS 12/02/17 09:30 12/19/17 09:55 Sodium Chloride (NS Flush) 5 ml UNSCH PRN IV FLUSH WITH DIALYSIS 12/02/17 09:30 12/20/17 21:12 Heparin Sodium (Porcine) (Heparin Inj) UNSCH PRN .XX WITH DIALYSIS 12/02/17 09:30 12/19/17 09:58 Gentamicin Sulfate (Gentamicin Inj) 20 mg UNSCH PRN OTHER WITH DIALYSIS 12/02/17 09:30 12/19/17 09:58 Ondansetron HCl (Zofran Inj) 4 mg UNSCH PRN IV PUSH WITH DIALYSIS 12/02/17 09:30 Acetaminophen (Tylenol) 650 mg UNSCH PRN PO for headach, pain, temp > 101F 12/02/17 09:30 12/18/17 23:32 Diphenhydramine HCl (Benadryl) 25 mg UNSCH PRN PO for hives/itching/anaphylaxis 12/02/17 09:30 Nitroglycerin (Nitrostat Sl) 0.4 mg UNSCH PRN SL CHEST PAIN 12/02/17 09:30 Clonidine (Catapres) 0.1 mg UNSCH PRN PO for BP > 180/100 X 2 readings 12/02/17 09:30 Epoetin Kvng (Epogen Inj) 4,000 units UNSCH PRN IV PUSH WITH DIALYSIS 12/02/17 09:30 12/19/17 09:58 Gelatin (Gelfoam 12 Mm/7 Mm Top) 1 foam UNSCH PRN TOP SEE LABEL COMMENTS 12/02/17 09:30 Sodium Chloride (NS Flush) UNSCH PRN IV FLUSH SEE PROTOCOL 12/02/17 11:15 Heparin Sodium (Porcine) (Heparin Inj) UNSCH PRN IV FLUSH SEE PROTOCOL 12/02/17 11:15 Hydrocortisone Sodium Succinate (SoluCORTEF INJ) 50 mg Q12H IV PUSH 12/07/17 23:00 12/21/17 00:27 Insulin Detemir (Levemir Inj) 5 units Q12HR SQ 12/07/17 12:00 12/21/17 08:18 Lanthanum Carbonate (Fosrenol Chew) 500 mg TID CHEW 12/07/17 18:00 12/21/17 08:19 Calcitriol (Rocaltrol) 0.5 mcg DAILY PO 12/08/17 09:00 12/17/17 08:10 Levofloxacin/ Dextrose 50 ml @ 50 mls/hr Q24H IV 12/08/17 16:00 12/20/17 16:02 Metronidazole (Flagyl) 500 mg Q6HR PO 12/10/17 13:30 12/21/17 06:20 Phenylephrine HCl 160 mg/Dextrose 500 ml @ 7.5 mls/hr TITRATE PRN IV Blood pressure management 12/10/17 19:30 12/20/17 18:47 Amiodarone HCl 450 mg/Sodium Chloride 250 ml @ 33.33 mls/ hr Q7H31M PRN IV Per Protocol 12/13/17 12:30 12/14/17 23:52 Amiodarone HCl (Cordarone) 200 mg Q12HR PO 12/15/17 14:00 12/21/17 08:18 Morphine Sulfate (Morphine Inj) 1 mg Q4H PRN IV PUSH PAIN SCALE 1 TO 10 12/15/17 19:45 Heparin Sodium (Porcine) (Heparin Inj) 5,000 units Q12H SQ 12/17/17 10:00 Future hold 12/21/17 08:19 Digoxin (Lanoxin) 0.125 mg Q48H PO 12/22/17 09:00 Amiodarone HCl 450 mg/Sodium Chloride 250 ml @ 33.33 mls/ hr Q7H31M PRN IV Per Protocol 12/20/17 12:00 Norepinephrine Bitartrate 4 mg/ Sodium Chloride 250 ml @ 7.5 mls/hr TITRATE PRN IV Blood pressure management 12/20/17 12:00 Terbutaline Sulfate (Brethine Inj) 1 mg UNSCH PRN SQ For Extravasation 12/20/17 11:00 Tobramycin Sulfate (Timur Neb) 300 mg Q12HR NEB NEB 12/20/17 12:15 12/21/17 08:24 OBJECTIVE: Vital Signs Date Time Temp Pulse Resp B/P (MAP) Pulse Ox O2 Delivery O2 Flow Rate FiO2 12/21/17 08:33 110 130/58 12/21/17 08:27 35 12/21/17 08:15 109 120/65 12/21/17 08:04 30 12/21/17 07:58 100 30 12/21/17 06:00 96 12/21/17 04:50 99 105/67 12/21/17 04:25 99 30 12/21/17 04:00 30 12/21/17 04:00 99.0 104 30 12/21/17 04:00 100 12/21/17 03:00 95 18 105/57 (73) 97 12/21/17 02:00 97 18 100/56 (71) 97 12/21/17 02:00 91 12/21/17 01:00 89 18 93/53 (66) 98 12/21/17 01:00 89 93/53 12/21/17 00:47 99 30 12/21/17 00:00 99.5 100 17 90/56 (67) 98 12/21/17 00:00 30 12/21/17 00:00 104 12/20/17 23:30 109 103/57 12/20/17 23:00 106 21 87/55 (66) 97 12/20/17 22:00 106 19 94/53 (67) 97 12/20/17 22:00 92 12/20/17 22:00 106 94/53 12/20/17 21:03 97 30 12/20/17 21:00 105 26 77/53 (61) 98 12/20/17 20:00 103 12/20/17 20:00 30 12/20/17 20:00 99.0 104 26 81/57 (65) 98 12/20/17 19:15 110 110/57 12/20/17 18:47 98 106/62 12/20/17 18:00 98 12/20/17 16:00 107 12/20/17 16:00 98.9 12/20/17 16:00 98.9 107 18 96/54 (68) 97 12/20/17 16:00 107 96/54 12/20/17 16:00 30 12/20/17 15:13 98 30 12/20/17 15:05 110 103/59 12/20/17 14:00 109 12/20/17 14:00 109 19 101/62 (75) 97 Laboratory Tests Test 12/19/17 16:06 12/20/17 04:00 White Blood Count 11.8 TH/MM3 12.9 TH/MM3 Red Blood Count 3.59 MIL/MM3 3.90 MIL/MM3 Hemoglobin 10.1 GM/DL 11.0 GM/DL Hematocrit 32.0 % 34.7 % Mean Corpuscular Volume 89.3 FL 89.0 FL Mean Corpuscular Hemoglobin 28.1 PG 28.3 PG Mean Corpuscular Hemoglobin Concent 31.4 % 31.8 % Red Cell Distribution Width 19.5 % 20.4 % Platelet Count 62 TH/MM3 90 TH/MM3 Mean Platelet Volume 10.4 FL 10.3 FL Neutrophils (%) (Auto) 84.2 % Lymphocytes (%) (Auto) 7.4 % Monocytes (%) (Auto) 8.2 % Eosinophils (%) (Auto) 0.0 % Basophils (%) (Auto) 0.2 % Neutrophils # (Auto) 9.9 TH/MM3 Lymphocytes # (Auto) 0.9 TH/MM3 Monocytes # (Auto) 1.0 TH/MM3 Eosinophils # (Auto) 0.0 TH/MM3 Basophils # (Auto) 0.0 TH/MM3 CBC Comment DIFF FINAL Differential Comment Laboratory Tests Test 12/19/17 15:46 12/20/17 04:00 12/21/17 03:25 Blood Urea Nitrogen 60 MG/DL 70 MG/DL Creatinine 1.88 MG/DL 2.15 MG/DL 2.51 MG/DL Random Glucose 230 MG/DL 185 MG/DL Calcium Level 8.1 MG/DL 8.1 MG/DL Sodium Level 140 MEQ/L 138 MEQ/L Potassium Level 2.9 MEQ/L 3.6 MEQ/L Chloride Level 99 MEQ/L 99 MEQ/L Carbon Dioxide Level 28.2 MEQ/L 24.3 MEQ/L Anion Gap 13 MEQ/L 15 MEQ/L Estimat Glomerular Filtration Rate 35 ML/MIN 30 ML/MIN 25 ML/MIN Phosphorus Level 2.3 MG/DL Magnesium Level 2.0 MG/DL Imaging: Chest X-Ray 12/18/17 0600 Signed Impressions: Service Date/Time: Monday, December 18, 2017 04:26 - CONCLUSION: 1. Unchanged left basilar consolidation. 2. No discernible pneumothorax on the current study. Shaq Freire Jr., MD Chest X-Ray 12/17/17 0000 Signed Impressions: Service Date/Time: Sunday, December 17, 2017 08:12 - CONCLUSION: 1. No significant 24-hour interval change. 2. Stable tubes and lines. 3. Stable right chest tube with stable small right pneumothorax and subcutaneous emphysema. 4. Stable left lower lobe patchy airspace disease. Anil Aldana MD Chest X-Ray 12/16/17 0600 Signed Impressions: Service Date/Time: November 04:43 - CONCLUSION: No significant change bibasilar atelectasis and small right pneumothorax. Right chest tube remains in place. Abdiel Vidales MD PHYSICAL EXAMINATION: GENERAL: Awake and alert. No acute distress. HEENT: No icterus. Moist mucosa. NECK: No swelling or adenopathy. LUNGS: Decreased breath sounds. No audible wheezing HEART: Irregular S1 and S2. No murmurs, rubs or gallops. ABDOMEN: Bowel sounds present, obese, soft. Non tender. EXTREMITIES: 1+ diffuse edema. Edema of the legs has decreased. Cyanosis at the tips of the toes. The feet are warm. SKIN: No diffuse rash. NEUROLOGIC: Nonfocal. Follows commands. PSYCHIATRIC: Unable to fully assess IMPRESSION: 1. New fever. Cultures negative. 2. Sepsis. 3. Pneumonia - Pseudomonas MDR. Latest sputum culture - Pseudomonas. Could be colonization. However with his seriously ill clinical condition he may have ongoing pneumonia. 4. Acute respiratory failure. Vent dependent. Extubated previously and appears to have aspirated. 5. Leukocytosis. White blood cell count decreasing. 6. Nette glabrata UTI. Persistent despite management with Diflucan. Repeat urine still positive Last urine culture on 12/14 and 12/16 had Nette glabrata, this could be due to colonization. 6. Right-sided pneumothorax. Subcutaneous emphysema. 7. History of chronic obstructive pulmonary disease and recent chronic obstructive pulmonary disease exacerbation. 8. Renal failure. Receiving hemodialysis. 9. Elevated liver function tests. LFTs down to normal. RECOMMENDATIONS: 1. Stop vancomycin. 2. Continue aerosol tobramycin. 3. Continue Levaquin. 4. Continue metronidazole. 5. Monitor white blood cell count. 6. Monitor clinical status. 7. Try to get patient into a stretcher chair. Tom Long MD Dec 21, 2017 13:20
--- NOTE | 2017-12-21 14:24 | HHI.CCPN ---
Subjective Remarks/Hospital Course This is a 77-year-old male with a medical history significant for COPD, CHF, A. fib, diabetes, that presented to emergency department from [facility] for evaluation of worsening shortness of breath over the last 3 days. The patient was been given Solu-Medrol 125 mg and 2 albuterol treatments enroute to ED. Upon presentation to the ED the patient was on a nonrebreather. He was tachypneic and tachycardic. Patient's medical history significant for MRSA pneumonia previously admitted on 10/27/16 for approximately 12 days at [facility]. The patient is normally on 2.5 L/m nasal cannula O2 home dependency, and he lives with ( normally) a PCO2 in the 80s according to his . Patient was then discharged to [facility], and then transferred to [facility] for rehabilitation. He has been on an unknown antibiotic per the family and steroids for the last 3 days. Laboratory and imaging studies were performed with noted elevation in CO2 The patient was given empiric antibiotics in the ED and placed on BiPAP. Critical care medicine was consulted. Subjective: 11/15: Patient maintained on BiPAP throughout the night O2 saturations 97-98% on FiO2 of 0.40. Hemodynamically stable. Attempts made to wean patient to nasal cannula this a.m. unsuccessful, patient's O2 saturation in the 70s, patient placed back on BiPAP. Chest x-ray pending WBC count significantly diminished, leukocytosis resolved. Patient extremely anxious, Precedex infusion initiated. 11/16: Late entry note. Patient seen 10 AM. Overnight the patient converted to A. fib RVR, despite being on Cardizem 4 times a day and metoprolol twice a day- home medications, the patient received IV Cardizem followed by amiodarone infusion. Per report the patient became hypotensive, Cardizem discontinued. Amiodarone continued. Early this a.m. patient was resting comfortably A. fib rate controlled rate. The patient suddenly converted to A. fib RVR heart rate 150s-160s, acute hypoxemic respiratory failure, requiring intubation. The patient was intubated uneventfully and continues on amiodarone at 0.5 mg/hour, rate now controlled in conjunction with sedation. Cardiology consulted, his administrative medical director is Dr. Reyes X-ray revealed lung consolidation improved, chest x- ray clear. Plan for CPAP trials in a.m.. 11/17: No acute events overnight. Patient had 1 short 8 beat run of V. tach last evening was self resolution, electrolytes within normal limits. The patient continues on amiodarone 0.5 mg/hr. CPAP trials initiated this a.m.. Tube feeds initiated at trickle feeds. Patient converted to sinus rhythm at 2 AM. 11/18 Patient remains sedated and intubated. Afebrile. 11/19 Patient was extubated yesterday however last night he was noted to choke on water provided by the family. Stat ABG demonstrated acute hypercapnic respiratory failure and was emergently intubated. Currently sedated and intubated. 11/20 Patient remains intubated on Fentanyl drip however he si awake and alert. Afebrile. 11/21 Patient is awake and alert placed on CPAP with PS:15, PEEP:5. Afebrile. 11/22 Patient remains intubated , did not tolerate CPAP trials yesterday as he became tachycardic and hypertensive. On no sedation awake and alert. 11/23 No events overnight, off sedation. 11/24: Resting comfortably on mechanical ventilation currently. Daily C Pap trials ongoing. 11/25: Sedated with Precedex, orally intubated on mechanical ventilation. Daily C Pap trials 11/26: Sedated with Precedex, orally intubated on mechanical ventilation. Got tachypneic with CPAP trial today hence placed back on PRVC. Spiked a fever, garcia cultures ordered. Went into A. fib with RVR subsequently for which being initiated on amiodarone bolus followed by drip and Lopressor 5 mg IV every 6 as needed for 11/27: This morning patient developed bradycardia followed by asystole for which she had 3 minutes CPR with ACLS protocol with return of spontaneous circulation. Post code chest x-ray revealed moderate to large right pneumothorax for which a right pigtail catheter was placed by me however despite airleak patient continue have moderate to large pneumothorax hence a second right sided 28 [place] chest tube was placed to -40 cm water pressure. Air leaks 1+ in both pigtail catheter and chest tube. Patient remains in a flutter currently. Dr. reyes evaluated patient as well following cardiac arrest. 11/28: Sedated, arousable, orally intubated on mechanical ventilation. Worsening renal function noted. MDR Pseudomonas in sputum. Right sided chest tube/ pigtail catheter with 1+ air leak in both. Subcutaneous emphysema noted over right side of face neck and right upper extremity. On 50% FiO2, PEEP +5. Poor urine output for which 500 cc and is bolus given earlier. Treated for hyperkalemia with Kayexalate PO, glucose insulin, calcium IV. 4/2: Remains sedated, arousable, orally intubated on mechanical ventilation. A. fib with RVR this morning for which she was loaded with amiodarone and initiated on amiodarone drip. Spiking fever 103.5. ID adjusting antibiotics. Stool for C. difficile ordered as he had some diarrhea today though received Kayexalate yesterday for hyperkalemia. Pigtail catheter on the right side appeared to be dislodged hence this was removed. 28 [place] chest tube in right pleural cavity repositioned. 11/30: Late entry note , patient seen at 12 noon. Creatinine continues to trend upward.Sedated but easily arousable. 12/01: Patient lightly sedated, following commands this a.m.. Creatinine noted increased, possible dialysis consideration for tomorrow. Patient to be diuresed today. CPAP trial initiated failed after 5 minutes, repeat this afternoon. 12/02: Patient placed on Lasix infusion throughout the night . No renal improvement,creatinine worsened today , plan for Vas-Cath placement and IHD today. This extensive discussion with patient and plans for tracheostomy and PEG tube placement secondary to failure to wean. 12/03: Late entry note, patient seen at 11 am. Patient scheduled for PEG placement today by Dr. Iglesias. Patient continues to fail CPAP trials. Plan for tracheostomy in the near future 12/04: Late entry note . Patient seen earlier this am. Overnight the patient became hypoglycemic, secondary to n.p.o. status, post PEG placement. D10 was initiated at 30 cc/hr. Tube feeds reinitiated Jevity 1.5, 24 hours post PEG tube placed, D10 discontinued. Patient remains on fentanyl at 100 mics/hour, lightly sedated. Patient denies pain answering by nodding head to yes and no questions. Tracheostomy planned for Wednesday12/06/[address] Calderon. 12/05: Remains intubated sedated with 50 mcg of fentanyl. On attempted CPAP trial patient remained dyspneic. Significant neuromuscular weakness persist. Chest x-ray shows small right apical pneumothorax. Tentatively plan for tracheostomy tomorrow. Dr. Calderon has already been consulted 12/06 Patient remains intubated for possible trach today. On Levophed 12 mics. Afebrile. 12/07 No events overnight. Trach was placed on hold yesterday as patient was on Levophed. He is down to 5 mics today. Afebrile. 12/08 Patient remains intubated on no sedation. CT brain this morning showed no acute process. Off Levophed. 12/09 Patient was placed back on Levophed 6 mics. Afebrile. Remains intubated on no sedation. 12/10 Patient remains intubated. On Neosyn 40 mics went into Afib with RVR HR 128 12/11 Patient remains intubated. Now on Neosyn 200 mics ( MAP 86mmHg). s/p HD yesterday with 1.5L removed. T:99.7 12/12 Patient remains sedated and intubated. Neosyn down 100 mics. For transfusion 2u PRBC and 1u PLT ( Hgb 6.7 and PLT 18 this morning) s/p HD with 3L removed yesterday. WBC is trending down. 12/13: More critically ill today, Bertin-Synephrine had to be increased to 150 mcg/ min, remains borderline hypotensive despite Bertin-Synephrine, currently in A. fib with RVR. Digoxin additional 0.25 mg IV push 1, start amiodarone infusion 12/14: Patient remains patient remains intubated currently on 50 mcg/min of Bertin- Synephrine. Remains on amiodarone infusion with heart rate better controlled 110-120. Plan for perc trach at bedside today 12/15: Remains on Bertin-Synephrine 50 mcg/min. On attempted CPAP patient had multiple PVCs and PACs. Potassium 2.7 getting replaced. Argatroban will be restarted 12/16: Patient is more lethargic, profoundly hypotensive Bertin-Synephrine increase to 300 mcg/min. Possibly septic shock. Currently on micafungin backside Levaquin and Flagyl. Add gram-positive coverage with vancomycin send blood cultures. Also will also change central line today-cleared by Dr. Vela to use subclavian access 12/17: Hypertensive encephalopathic Bertin-Synephrine at 100 mcg/min. new right subclavian central line placed left IJ will be sent for culture. Currently in A. fib with RVR heart rate varying from 110s-130. If persistent will give 2.5 metoprolol. AUGUSTA negative and argatroban discontinued. Start heparin subcu for DVT prophylaxis 12/18: Patient remains critically currently on 140 mcg/min of Bertin-Synephrine. Tachypneic with agonal appearing breathing on CPAP trial. Chest x-ray remains unchanged. Platelet count is 54 today, will hold subcu heparin. 12/19: Afebrile. Patient failed CPAP trials today. Patient underwent dialysis 3 L off today. Patient continues on vasopressor support with phenylephrine. Labs pending. Placed right chest tube to waterseal. 12/20: Continues to be critical currently on 200 mcg/min of Aoo-Yjwrtdokmo-xafer is increased from yesterday, remains hypotensive. Atrial fibrillation with RVR persist. Will restart IV amiodarone in an attempt to cardiovert due to hypotension. However I do not believe his hypotension is due to A. fib with RVR , hypotension is mostly from sepsis. There is no indication for DC cardioversion. New sputum culture shows Pseudomonas intermediately sensitive to Levaquin. Continue Zerbaxa and vanc, and micafungin per ID. DC Levaquin and metronidazole if okay with ID 12/21: No events over the night. Patient continues to require phenylephrine infusion, currently at 120 mcg/minute. Patient is awake, following some commands. T-max of 99.7. Minimal urine output. Right-sided chest tube to waterseal. Objective Vital Signs Date Time Temp Pulse Resp B/P (MAP) Pulse Ox O2 Delivery O2 Flow Rate FiO2 12/21/17 13:22 100 35 12/21/17 10:00 98 12/21/17 08:33 130/58 12/21/17 08:00 98.6 18 Intake and Output 12/21/17 12/21/17 12/22/17 08:00 16:00 00:00 Intake Total 1108 ml Output Total 50 ml 1500 ml Balance 1058 ml -1500 ml Result Diagram: 12/20/17 0400 12/21/17 0325 Imaging Last Impressions Chest X-Ray 12/11/17 0000 Signed Impressions: Service Date/Time: Monday, December 11, 2017 10:51 - CONCLUSION: Stable chest with moderate subcutaneous emphysema and no pneumothorax. Torin Dennison MD FACR Liver Ultrasound 12/09/17 0000 Signed Impressions: Service Date/Time: November 19:18 - CONCLUSION: 1. Limited suboptimal examination with only a small portion of the liver visualized. 2. The gallbladder and common bile duct could not be visualized. The pancreas is not evaluated. 3. Left pleural effusion. Liang Jimenez MD Head CT 12/08/17 0000 Signed Impressions: Service Date/Time: Friday, December 08, 2017 08:25 - CONCLUSION: Negative for acute process. Torin Dennison MD FACR Catheter Placement X-Ray 12/02/17 0000 Signed Impressions: Service Date/Time: November 10:47 - CONCLUSION: Uncomplicated right internal jugular Vas-Cath placement as above. incidental note is made of subcutaneous emphysema within the chest wall and neck Con Dennison MD Lower Extremity Ultrasound 11/29/17 0000 Signed Impressions: Service Date/Time: Wednesday, November 29, 2017 22:02 - CONCLUSION: Normal examination. Abdiel Mcintyre MD Renal Ultrasound 11/28/17 0000 Signed Impressions: Service Date/Time: Tuesday, November 28, 2017 20:30 - CONCLUSION: Nondiagnostic exam. Rashad Bose MD Objective Remarks GENERAL: Elderly gentleman, trached, on mechanical ventilation, awake, ill- appearing. SKIN: Warm and dry. EYES: Pupils are equal and reactive, no scleral icterus. No injection or drainage. NECK: Supple, trachea midline. New trach without significant bleed. CARDIOVASCULAR: Irregular heart sounds, no murmurs appreciated. RESPIRATORY: Decreased air entry bilateral, no wheezes, scattered rhonchi. + Subcutaneous emphysema of right chest wall. GASTROINTESTINAL: Abdomen soft, non-tender, nondistended. Bowel sounds present. MUSCULOSKELETAL: Bilateral peripheral pitting edema. Peripheral cyanosis bilateral toes, poor peripheral circulation, NEURO: Patient is awake, tracking, following some very simple commands but does not move upper or lower extremities. Pupils are equal and reactive bilaterally. A/P Problem List: (1) A-fib ICD Code: I48.91 - Unspecified atrial fibrillation (2) CHF (congestive heart failure) ICD Code: I50.9 - Heart failure, unspecified Status: Chronic (3) HTN (hypertension) ICD Code: I10 - Essential (primary) hypertension Status: Chronic (4) ADRIAN (obstructive sleep apnea) ICD Code: G47.33 - Obstructive sleep apnea (adult) (pediatric) Status: Chronic (5) MRSA pneumonia ICD Code: J15.212 - Pneumonia due to Methicillin resistant Staphylococcus aureus Status: Acute (6) Diabetes mellitus type 2, insulin dependent ICD Code: E11.9 - Type 2 diabetes mellitus without complications; 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 Status: Chronic (7) COPD (chronic obstructive pulmonary disease) ICD Code: J44.9 - Chronic obstructive pulmonary disease, unspecified Status: Acute (8) Respiratory distress ICD Code: R06.03 - Acute respiratory distress Status: Acute (9) Leukocytosis ICD Code: D72.829 - Elevated white blood cell count, unspecified Status: Acute (10) Lung consolidation ICD Code: J18.1 - Lobar pneumonia, unspecified organism Status: Acute (11) Anxiety ICD Code: F41.9 - Anxiety disorder, unspecified Status: Chronic (12) Failure to wean from mechanical ventilation ICD Code: Z99.11 - Dependence on respirator [ventilator] status Assessment and Plan Plan by systems: Neurologic: Encephalopathy, metabolic Anxiety Neuro checks per ICU protocol EEG: Mild- mod encephalopathy. Neuro- Dr. Anne. CT brain 12/08 no acute process Respiratory: Acute respiratory failure on mechanical ventilation- extubated and reintubated night of 11/18 after he was noted to choke on water provided by family. COPD exacerbation Pneumonia-MRSA, MDR Pseudomonas Right sided pneumothorax following CPR status post pigtail catheter/chest tube placement 11/27 Obstructive sleep apnea Home O2 dependency Continue with vent support keep sats >90%. s/p Trach 12/14/17 Continue PRVC, reduce tidal volume to 550, keep her PIP below 30, patient synchronized with the vent without auto PEEP Bronchodilators, HC 50mg IV Q12 Pulmonology - Dr Price Right sided chest tube in place. Continue 28 F right chest tube to underwater seal Chest x-ray today Cardiovascular: Shock most likely septic -continues to require phenylephrine infusion Cardiac arrest - asystole, status post CPR 11/27 A. fib RVR History of CHF CAD Peripheral cyanosis/early gangrene of the toes Currently on Bertin-Synephrine 120 mcg/min to keep MAP>65mmHg IV digoxin 0.25 mg 1 12/13, continue QOD digoxin Hydrocortisone 50mg IV Q12, continue while critically ill and hypotensive Atorvastatin 80 daily on hold for elevated LFT's Cardiology - Dr. Reyes. Echo showed EF 65-70% Renal: DAVID Monitor renal function, electrolytes replacement as needed Nephrology Dr. Ragland. 12/02 Vas-Cath placed for initiation of IHD HD per nephrology FEN/GI: Elevated LFT's GERD Monitor LFT's, US liver on 12/06: non diagnostic study US liver 12/09 limited study. Hepatitis profile is negative On tube feeds On Nepro @40cc/hr. Pepcid for GI prophylaxis 12/03 PEG tube placement ID: Pneumonia MRSA, MDR Pseudomonas Leukocytosis Septic shock Continue antibiotics per ID Stool for C. difficile negative on 11/29 and 12/06 Pertinent cultures 12/14 Urine yeast 12/09 BC: NGTD 12/08 Urine cx: C. Glabrata 12/06, 12/16 Sputum cx: Pseudomonas MDR 11/16 sputum cultures- Kleb pneumonia 11/26 sputum cultures growing multidrug resistant Pseudomonas/MRSA 11/28 urine culture growing yeast 11/26 blood culture neg Heme Thrombocytopenia HIT antibody positive AUGUSTA negative. Argatroban discontinued by Dr. Quintana. Endocrine: Glucose monitoring per ICU protocol -- SSI(high scale) Levemir 5u Q12 Msk: Polyneuropathy of Critical Illness Continue PT, OT Prophylaxis: GI Prophylaxis Famotidine BID -- SCDs Holding home dose Eliquis 5 mg BID on 11/27 in view of thrombocytopenia and renal failure Argatroban discontinued HIT AUGUSTA negative Started heparin subcu every 12 12/17/2017, hold due to platelet count being 53, restarted on 12/20 Lines: Left IJ central line placed 11/29-DCd 12/17. New Left central line subclavian placed 12/16/17 Right IJ vascath 12/02 Palliative care is following Patient remains critically ill requiring mechanical ventilation and vasopressors and he is at very high risk for further decompensation and . No family present at bedside. Problem Qualifiers (1) COPD (chronic obstructive pulmonary disease): Qualified Codes: J44.9 - Chronic obstructive pulmonary disease, unspecified (2) Leukocytosis: Qualified Codes: D72.829 - Elevated white blood cell count, unspecified Nick Green MD Dec 21, 2017 14:24
[2017-12-21] MEDS: LEVOFLOXACIN 250 MG PREMIX INJ 50 ML IV SCH (16:28)
--- NOTE | 2017-12-21 16:28 | RADRPT ---
EXAM DATE/TIME: 12/21/2017 15:42 [facility] COMPARISON: CHEST SINGLE AP, December 18, 2017, 4:26. INDICATIONS : Evaluate for pneumonia. MEDICAL HISTORY : Chronic obstructive pulmonary disease. Cardiovascular disease. SURGICAL HISTORY : Tracheostomy. ENCOUNTER: Subsequent ACUITY: 1 month PAIN SCORE: Non-responsive. LOCATION: Bilateral chest FINDINGS: 2 AP views of the chest. Tracheostomy tube, right IJ central venous catheter, and right subclavian ce ntral venous catheter remain in place. A right-sided chest tube is again seen and the tip appears sli ghtly more superiorly positioned. Extensive right-sided subcutaneous emphysema. There is evidence of a right-sided pneumothorax measuring approximately 1 cm in maximum dimension. Left lung base opacity slightly more prominent than on the present study. CONCLUSION: 1. Small right-sided pneumothorax. 2. Right-sided chest tube remains in place. 3. Slight increase in left lung base opacity. Prosper Klein MD on December 21, 2017 at 16:23 Board Certified Radiologist. This report was verified electronically.
[2017-12-21 16:39] LABS: AUTOMATED NEUTROPHIL # 6.4 TH/MM3 (1.8-7.7); BASOPHIL % 0.3 % (0.0-2.0); EOSINOPHIL % 0.3 % (0.0-4.0); HEMATOCRIT 29.7 % (39.0-51.0); HEMOGLOBIN 9.4 GM/DL (13.0-17.0); LYMPH % 19.4 % (9.0-44.0); LYMPHOCYTE # 1.7 TH/MM3 (1.0-4.8); MEAN CELL VOLUME 88.8 FL (80.0-100.0); MEAN CORPUSCULAR HEMOGLOBIN 28.1 PG (27.0-34.0); MEAN CORPUSCULAR HGB CONC 31.6 % (32.0-36.0); MONO % 6.8 % (0.0-8.0); MONOCYTE # 0.6 TH/MM3 (0-0.9); NEUT % 73.2 % (16.0-70.0); PLATELET COUNT 74 TH/MM3 (150-450); RED BLOOD COUNT 3.34 MIL/MM3 (4.50-5.90); RED CELL DISTRIBUTION WIDTH 19.6 % (11.6-17.2); WHITE BLOOD COUNT 8.7 TH/MM3 (4.0-11.0)
[2017-12-21 17:16] LABS: ALBUMIN 3.7 GM/DL (3.4-5.0); AST (GOT) 15 U/L (15-37); BICARBONATE 25.6 MEQ/L (21.0-32.0); BLOOD UREA NITROGEN 78 MG/DL (7-18); CALCIUM 7.8 MG/DL (8.5-10.1); CHLORIDE 98 MEQ/L (98-107); CREATININE 2.28 MG/DL (0.60-1.30); GLOMERULAR FILTRATION RATE 28 ML/MIN (>89); GLUCOSE,RANDOM 178 MG/DL (74-106); MAGNESIUM 1.8 MG/DL (1.5-2.5); SODIUM (NA) 137 MEQ/L (136-145)
[2017-12-21 17:17] LABS: ALT (GPT) 21 U/L (12-78)
[2017-12-21 17:19] LABS: ALKALINE PHOSPHATASE 286 U/L (45-117); TOTAL BILIRUBIN ADULT 0.7 MG/DL (0.2-1.0); TOTAL PROTEIN 5.5 GM/DL (6.4-8.2)
[2017-12-21 17:33] LABS: BANDS 6 % (0-6); CORRECTED NUCLEATED RBC 1 /100 WBC (0-0); LYMPHOCYTES 15 % (9-44); METAMYELOCYTES 1 % (0-1); MONOCYTES 1 % (0-8); MYELOCYTES 1 % (0-0); NEUTROPHIL # MANUAL DIFF 7.3 TH/MM3 (1.8-7.7); NUCLEATED RED BLOOD CELL 1 (0-0); POLYS (SEG NEUTROPHILS) 76 % (16-70); TOXIC GRANULATION 3+ (NORMAL)
[2017-12-21 17:35] LABS: ACANTHOCYTES OCC (NORMAL); SPHEROCYTES 1+ (NORMAL); STOMATOCYTES 1+ (NORMAL)
[2017-12-21] MEDS: BUDESONIDE-FORMOTEROL 160/4.5 MCG INHALER INH SCH (20:02)
[2017-12-21] MEDS: PHENYLEPHRINE INJ 160 MG in DEXTROSE 5% IN WATE 500 ML INJ 484 ML IV PRN ×2 (20:30)
[2017-12-22] VITALS (31 sets, daily range): BP systolic 88–121; BP diastolic 53–68; PULSE 78–111; RESP 22–36; TEMP 97.6–98.7; O2SAT 71–100
[2017-12-22] MEDS: CHLORHEXIDINE GLUCONATE 2 % 1 PACK (2 CLOTHS) TOP SCH ×2 (04:00→23:00)
[2017-12-22] MEDS: INSULIN ASPART SUPPLEMENTAL SCALE SQ SCH ×6 (04:00→21:14)
[2017-12-22] MEDS: metroNIDAZOLE 500 MG TAB PO SCH ×4 (04:59→16:48)
[2017-12-22 05:38] LABS: AUTOMATED NEUTROPHIL # 6.2 TH/MM3 (1.8-7.7); BASOPHIL % 0.3 % (0.0-2.0); EOSINOPHIL % 0.1 % (0.0-4.0); HEMOGLOBIN 9.1 GM/DL (13.0-17.0); LYMPH % 15.7 % (9.0-44.0); LYMPHOCYTE # 1.3 TH/MM3 (1.0-4.8); MEAN CELL VOLUME 89.5 FL (80.0-100.0); MEAN CORPUSCULAR HEMOGLOBIN 29.1 PG (27.0-34.0); MEAN CORPUSCULAR HGB CONC 32.5 % (32.0-36.0); MEAN PLATELET VOLUME 10.2 FL (7.0-11.0); MONO % 7.8 % (0.0-8.0); MONOCYTE # 0.6 TH/MM3 (0-0.9); NEUT % 76.1 % (16.0-70.0); PLATELET COUNT 81 TH/MM3 (150-450); RED BLOOD COUNT 3.13 MIL/MM3 (4.50-5.90); RED CELL DISTRIBUTION WIDTH 20.2 % (11.6-17.2); WHITE BLOOD COUNT 8.2 TH/MM3 (4.0-11.0)
--- NOTE | 2017-12-22 05:54 | RADRPT ---
EXAM DATE/TIME: 12/22/2017 04:38 [facility] COMPARISON: CHEST SINGLE AP, December 21, 2017, 15:42. INDICATIONS : Short of breath. MEDICAL HISTORY : Chronic obstructive pulmonary disease. Cardiovascular disease. SURGICAL HISTORY : Tracheostomy. ENCOUNTER: Subsequent ACUITY: 1 month PAIN SCORE: 0/10 LOCATION: Bilateral chest FINDINGS: A single view of the chest demonstrates right IJ vas catheter in superior vena cava. Right central li ne tip near cavoatrial junction. Right chest tube with small right pneumothorax. Slight improvement i n subcutaneous and on the right. Mild basilar airspace disease slightly improved on the left. Small e ffusions. CONCLUSION: 1. Right chest tube with tiny right pneumothorax. Right central lines remain unchanged. Slight improv ement in left basilar airspace disease with small effusions. Tera Gibson MD on December 22, 2017 at 5:52 Board Certified Radiologist. This report was verified electronically.
[2017-12-22 06:16] LABS: ALBUMIN 3.1 GM/DL (3.4-5.0); ALKALINE PHOSPHATASE 268 U/L (45-117); ALT (GPT) 18 U/L (12-78); AST (GOT) 16 U/L (15-37); BICARBONATE 25.7 MEQ/L (21.0-32.0); BLOOD UREA NITROGEN 88 MG/DL (7-18); CALCIUM 7.6 MG/DL (8.5-10.1); CHLORIDE 94 MEQ/L (98-107); CREATININE 2.48 MG/DL (0.60-1.30); GLOMERULAR FILTRATION RATE 25 ML/MIN (>89); GLUCOSE,RANDOM 296 MG/DL (74-106); MAGNESIUM 1.9 MG/DL (1.5-2.5); PHOSPHORUS 1.8 MG/DL (2.5-4.9); SODIUM (NA) 135 MEQ/L (136-145); TOTAL BILIRUBIN ADULT 0.6 MG/DL (0.2-1.0)
[2017-12-22 07:17] LABS: BANDS 16 % (0-6); BASOPHILS 1 % (0-2); LYMPHOCYTES 12 % (9-44); MONOCYTES 3 % (0-8); MYELOCYTES 1 % (0-0); NEUTROPHIL # MANUAL DIFF 6.9 TH/MM3 (1.8-7.7); POLYS (SEG NEUTROPHILS) 67 % (16-70)
[2017-12-22 07:18] LABS: STOMATOCYTES 2+ (NORMAL)
[2017-12-22] MEDS: CHLORHEXIDINE 0.12% (ORAL KIT) 15 ML CUP MT SCH ×2 (08:00→20:00)
[2017-12-22] MEDS: BUDESONIDE-FORMOTEROL 160/4.5 MCG INHALER INH SCH ×2 (08:54→20:58)
[2017-12-22] MEDS: RESP: TOBRAMYCIN SULFATE 300 MG/5 ML NEB NEB SCH ×2 (08:56→20:58)
[2017-12-22] MEDS: FAMOTIDINE 20 MG TAB PO SCH ×2 (09:11→21:15)
[2017-12-22] MEDS: DIGOXIN 0.125 MG TAB PO SCH (09:11)
[2017-12-22] MEDS: SODIUM CHLORIDE 0.9% FLUSH 10 ML FLUSH IV FLUSH SCH ×2 (09:11→21:00)
[2017-12-22] MEDS: AMIODARONE 200 MG TAB PO SCH ×2 (09:11→21:16)
[2017-12-22] MEDS: LANTHANUM CARBONATE 500 MG CHEWABLE TABLET CHEW SCH ×3 (09:11→16:48)
[2017-12-22] MEDS: CALCITRIOL 0.25 MCG CAP PO SCH (09:12)
[2017-12-22] MEDS: INSULIN DETEMIR 100 UNITS/ML VIAL SQ SCH ×2 (09:12→21:15)
[2017-12-22] MEDS: DOCUSATE SODIUM 50 MG/SENNA 8.6 MG TAB PO SCH ×2 (09:12→21:00)
[2017-12-22] MEDS: HEPARIN SODIUM - SQ 10,000 UNITS/ML VIAL SQ SCH ×2 (09:13→21:15)
--- NOTE | 2017-12-22 10:22 | HHI.NPPN ---
Subjective Renal Failure: Acute History of Present Illness This is a 77-year-old male with past medical history of ischemic heart disease, atrial fibrillation, congestive heart failure, possibly diastolic dysfunction, diabetes mellitus, chronic obstructive pulmonary disease, was admitted on 11/14 with respiratory distress. Nephrology was called to see the patient because of elevated BUN and creatinine. The patient has creatinine of 1.1 on admission, which increased after 2 or 3 to 1.3-1.5 and for the last 2 days, it has been going up and now it is 2.8. The patient was initially diagnosed with pneumonia and was started on antibiotics and then later on, patient developed respiratory failure and was intubated. He was also found to have asystole on 11/27 for 3 minutes and CPR was done with ACLS protocol, and it was shown that he has large right-sided pneumothorax. The blood pressure has been stable and there are no significant hypotensive episodes documented. Most of the history was taken from he patient' s chart. Additional Remarks Remains on ventilator with matilda- synephrine infusing. CPAP trial underway. (Adeola Velez) Review of Systems General General Remarks Unable to do ROS as patient is intubated (Adeola Velez) Objective Data Data Vital Signs Date Time Temp Pulse Resp B/P (MAP) Pulse Ox O2 Delivery O2 Flow Rate FiO2 12/22/17 09:00 95 30 12/22/17 08:00 30 12/22/17 08:00 98.0 87 22 111/60 100 12/22/17 08:00 79 12/22/17 04:53 99 30 12/22/17 04:15 98 27 99/68 (78) 97 12/22/17 04:00 30 12/22/17 04:00 97.6 99 28 105/67 (80) 96 12/22/17 03:45 102 30 108/59 (75) 97 12/22/17 03:30 102 30 106/57 (73) 97 12/22/17 03:15 108 30 103/55 (71) 97 12/22/17 03:00 101 32 116/58 (77) 95 12/22/17 02:45 107 36 121/62 (81) 71 12/22/17 02:30 100 27 110/56 (74) 96 4/25/18 02:15 95 29 98/56 (70) 95 4/18 02:00 99 31 95/61 (72) 96 418 01:45 97 32 106/59 (75) 97 18 01:30 105 30 107/57 (74) 97 4//18 01:15 99 27 104/56 (72) 97 /18 01:00 102 30 102/54 (70) 97 18 00:47 100 30 18 00:45 103 28 108/58 (75) 99 4//18 00:30 103 33 104/57 (73) 100 418 00:15 111 27 103/56 (72) 97 18 00:00 97 31 97/57 (70) 100 4/18 00:00 30 4/18 00:00 97.8 97 31 97/57 (70) 100 18 23:45 101 27 104/55 (71) 100 18 23:30 103 18 104/59 (74) 100 418 23:15 102 18 105/58 (74) 99 18 23:00 98 16 104/59 (74) 99 18 22:45 105 26 107/57 (74) 98 18 22:30 103 25 98/56 (70) 97 /18 22:15 96 15 95/52 (66) 98 /18 22:00 95 26 88/53 (65) 99 18 21:45 97 49 101/59 (73) 100 18 21:30 98 35 109/62 (78) 100 4/18 21:15 99 30 113/74 (87) 100 4//18 21:00 101 62 117/67 (84) 100 12/21/18 20:45 109 57 109/64 (79) 100 18 20:30 93 37 114/65 (81) 100 4/24/18 20:30 93 114/65 4/24/18 20:15 101 33 100/57 (71) 99 18 20:02 100 30 4//18 20:00 98.0 104 35 105/56 (72) 98 4/24/18 20:00 30 12/21/17 18:00 99 12/21/17 16:00 92 12/21/17 16:00 30 12/21/17 16:00 98.5 92 32 98/62 (74) 94 12/21/17 15:26 100 30 12/21/17 14:00 101 12/21/17 13:22 100 35 12/21/17 12:00 117 12/21/17 12:00 98.5 117 37 89/50 (63) 99 12/21/17 12:00 30 (Adeola Velez) -: 12/22/17 0500 12/22/17 0500 Tubes & Lines: Vas-Cath, Haynes (Adeola Velez) Physical Exam General Appearance: Obese (Adeola Velez) Eyes Eye Exam: Pupils Equal (Adeola Velez) Pulmonary Resp Exam: Breath Sounds Equal Resp Remarks Intubated CT right chest wall (Adeola Velez) Cardiology CV Exam: Regular (Adeola Velez) Gastrointestinal/Abdomen GI Exam: Soft, Non-Tender, Distended (Adeola Velez) Genitourinary Exam: Flank Non-Tender (Adeola Velez) Integumentary Skin Exam: Clear, Warm (Adeola Velez) Extremeties Extremities Exam: Moderate Edema (Adeola Velez) Neurologic Neuro Exam: Awake (Adeola Velez) Assessment/Plan Assessment Summary: DAVID/Acute Renal Failure Problem List: (1) DAVID (acute kidney injury) ICD Codes: N17.9 - Acute kidney failure, unspecified Plan: Acute kidney injury most likely related to acute tubular necrosis, either from the infection or related to his cardiac status and cardiac arrest. Creatinine is stable but minimal urinary output Continues on matilda matilda- synephrine for blood pressure support Edema is improving Plan Renal dose antibiotics Hypokalemia- replacement given Continue for follow UOP and BMP Avoid nephrotoxins as possible. Mannitol and Albumin with HD. Hemodialysis yesterday UF 1.5L Vas cath was sluggish will use cath jose (2) Respiratory failure ICD Codes: J96.90 - Respiratory failure, unspecified, unspecified whether with hypoxia or hypercapnia Plan: Intubated weaning per circular clerk. (3) Thrombocytopenia ICD Codes: D69.6 - Thrombocytopenia, unspecified Plan: Hematology has been consulted and following (4) Anemia ICD Codes: D64.9 - Anemia, unspecified Plan: has received blood transfusion. (Adeola Velez) Problem List: (1) DAVID (acute kidney injury) ICD Codes: N17.9 - Acute kidney failure, unspecified Plan: Acute kidney injury most likely related to acute tubular necrosis, either from the infection or related to his cardiac status and cardiac arrest. Creatinine is stable but minimal urinary output Continues on matilda matilda- synephrine for blood pressure support Edema is improving Plan Renal dose antibiotics Hypokalemia- replacement given Continue for follow UOP and BMP Avoid nephrotoxins as possible. Mannitol and Albumin with HD. Hemodialysis yesterday UF 1.5L Vas cath was sluggish will use cath jose. Patient seen and examined, agree with above. HD as needed, watch for renal recovery. (2) Respiratory failure ICD Codes: J96.90 - Respiratory failure, unspecified, unspecified whether with hypoxia or hypercapnia Plan: Intubated weaning per circular clerk. (3) Thrombocytopenia ICD Codes: D69.6 - Thrombocytopenia, unspecified Plan: Hematology has been consulted and following (4) Anemia ICD Codes: D64.9 - Anemia, unspecified Plan: has received blood transfusion. (America Vela MD) Adeola Velez Dec 22, 2017 10:22 America Vela MD Dec 23, 2017 18:32
[2017-12-22] MEDS ORDERED: POTASSIUM CHLORIDE 25 MEQ EFFERVESCENT TAB PO ONE (10:30)
[2017-12-22] MEDS ORDERED: ALTEPLASE RECOMBINANT 2 MG VIAL INTRACATH PRN (10:30)
--- NOTE | 2017-12-22 11:20 | HHI.CCPN ---
Subjective Remarks/Hospital Course This is a 77-year-old male with a medical history significant for COPD, CHF, A. fib, diabetes, that presented to emergency department from [facility] for evaluation of worsening shortness of breath over the last 3 days. The patient was been given Solu-Medrol 125 mg and 2 albuterol treatments enroute to ED. Upon presentation to the ED the patient was on a nonrebreather. He was tachypneic and tachycardic. Patient's medical history significant for MRSA pneumonia previously admitted on 10/27/16 for approximately 12 days at [facility]. The patient is normally on 2.5 L/m nasal cannula O2 home dependency, and he lives with ( normally) a PCO2 in the 80s according to his . Patient was then discharged to [facility], and then transferred to [facility] for rehabilitation. He has been on an unknown antibiotic per the family and steroids for the last 3 days. Laboratory and imaging studies were performed with noted elevation in CO2 The patient was given empiric antibiotics in the ED and placed on BiPAP. Critical care medicine was consulted. Subjective: 11/15: Patient maintained on BiPAP throughout the night O2 saturations 97-98% on FiO2 of 0.40. Hemodynamically stable. Attempts made to wean patient to nasal cannula this a.m. unsuccessful, patient's O2 saturation in the 70s, patient placed back on BiPAP. Chest x-ray pending WBC count significantly diminished, leukocytosis resolved. Patient extremely anxious, Precedex infusion initiated. 11/16: Late entry note. Patient seen 10 AM. Overnight the patient converted to A. fib RVR, despite being on Cardizem 4 times a day and metoprolol twice a day- home medications, the patient received IV Cardizem followed by amiodarone infusion. Per report the patient became hypotensive, Cardizem discontinued. Amiodarone continued. Early this a.m. patient was resting comfortably A. fib rate controlled rate. The patient suddenly converted to A. fib RVR heart rate 150s-160s, acute hypoxemic respiratory failure, requiring intubation. The patient was intubated uneventfully and continues on amiodarone at 0.5 mg/hour, rate now controlled in conjunction with sedation. Cardiology consulted, his rn surgery icu is Dr. Reyes X-ray revealed lung consolidation improved, chest x- ray clear. Plan for CPAP trials in a.m.. 11/17: No acute events overnight. Patient had 1 short 8 beat run of V. tach last evening was self resolution, electrolytes within normal limits. The patient continues on amiodarone 0.5 mg/hr. CPAP trials initiated this a.m.. Tube feeds initiated at trickle feeds. Patient converted to sinus rhythm at 2 AM. 11/18 Patient remains sedated and intubated. Afebrile. 11/19 Patient was extubated yesterday however last night he was noted to choke on water provided by the family. Stat ABG demonstrated acute hypercapnic respiratory failure and was emergently intubated. Currently sedated and intubated. 11/20 Patient remains intubated on Fentanyl drip however he si awake and alert. Afebrile. 11/21 Patient is awake and alert placed on CPAP with PS:15, PEEP:5. Afebrile. 11/22 Patient remains intubated , did not tolerate CPAP trials yesterday as he became tachycardic and hypertensive. On no sedation awake and alert. 11/23 No events overnight, off sedation. 11/24: Resting comfortably on mechanical ventilation currently. Daily C Pap trials ongoing. 11/25: Sedated with Precedex, orally intubated on mechanical ventilation. Daily C Pap trials 11/26: Sedated with Precedex, orally intubated on mechanical ventilation. Got tachypneic with CPAP trial today hence placed back on PRVC. Spiked a fever, garcia cultures ordered. Went into A. fib with RVR subsequently for which being initiated on amiodarone bolus followed by drip and Lopressor 5 mg IV every 6 as needed for 11/27: This morning patient developed bradycardia followed by asystole for which she had 3 minutes CPR with ACLS protocol with return of spontaneous circulation. Post code chest x-ray revealed moderate to large right pneumothorax for which a right pigtail catheter was placed by me however despite airleak patient continue have moderate to large pneumothorax hence a second right sided 28 Macanese chest tube was placed to -40 cm water pressure. Air leaks 1+ in both pigtail catheter and chest tube. Patient remains in a flutter currently. Dr. reyes evaluated patient as well following cardiac arrest. 11/28: Sedated, arousable, orally intubated on mechanical ventilation. Worsening renal function noted. MDR Pseudomonas in sputum. Right sided chest tube/ pigtail catheter with 1+ air leak in both. Subcutaneous emphysema noted over right side of face neck and right upper extremity. On 50% FiO2, PEEP +5. Poor urine output for which 500 cc and is bolus given earlier. Treated for hyperkalemia with Kayexalate PO, glucose insulin, calcium IV. 4/2: Remains sedated, arousable, orally intubated on mechanical ventilation. A. fib with RVR this morning for which she was loaded with amiodarone and initiated on amiodarone drip. Spiking fever 103.5. ID adjusting antibiotics. Stool for C. difficile ordered as he had some diarrhea today though received Kayexalate yesterday for hyperkalemia. Pigtail catheter on the right side appeared to be dislodged hence this was removed. 28 Macanese chest tube in right pleural cavity repositioned. 11/30: Late entry note , patient seen at 12 noon. Creatinine continues to trend upward.Sedated but easily arousable. 12/01: Patient lightly sedated, following commands this a.m.. Creatinine noted increased, possible dialysis consideration for tomorrow. Patient to be diuresed today. CPAP trial initiated failed after 5 minutes, repeat this afternoon. 12/02: Patient placed on Lasix infusion throughout the night . No renal improvement,creatinine worsened today , plan for Vas-Cath placement and IHD today. This extensive discussion with patient and plans for tracheostomy and PEG tube placement secondary to failure to wean. 12/03: Late entry note, patient seen at 11 am. Patient scheduled for PEG placement today by Dr. Iglesias. Patient continues to fail CPAP trials. Plan for tracheostomy in the near future 12/04: Late entry note . Patient seen earlier this am. Overnight the patient became hypoglycemic, secondary to n.p.o. status, post PEG placement. D10 was initiated at 30 cc/hr. Tube feeds reinitiated Jevity 1.5, 24 hours post PEG tube placed, D10 discontinued. Patient remains on fentanyl at 100 mics/hour, lightly sedated. Patient denies pain answering by nodding head to yes and no questions. Tracheostomy planned for Wednesday12/06/[address] Calderon. 12/05: Remains intubated sedated with 50 mcg of fentanyl. On attempted CPAP trial patient remained dyspneic. Significant neuromuscular weakness persist. Chest x-ray shows small right apical pneumothorax. Tentatively plan for tracheostomy tomorrow. Dr. Calderon has already been consulted 12/06 Patient remains intubated for possible trach today. On Levophed 12 mics. Afebrile. 12/07 No events overnight. Trach was placed on hold yesterday as patient was on Levophed. He is down to 5 mics today. Afebrile. 12/08 Patient remains intubated on no sedation. CT brain this morning showed no acute process. Off Levophed. 12/09 Patient was placed back on Levophed 6 mics. Afebrile. Remains intubated on no sedation. 12/10 Patient remains intubated. On Neosyn 40 mics went into Afib with RVR HR 128 12/11 Patient remains intubated. Now on Neosyn 200 mics ( MAP 86mmHg). s/p HD yesterday with 1.5L removed. T:99.7 12/12 Patient remains sedated and intubated. Neosyn down 100 mics. For transfusion 2u PRBC and 1u PLT ( Hgb 6.7 and PLT 18 this morning) s/p HD with 3L removed yesterday. WBC is trending down. 12/13: More critically ill today, Bertin-Synephrine had to be increased to 150 mcg/ min, remains borderline hypotensive despite Bertin-Synephrine, currently in A. fib with RVR. Digoxin additional 0.25 mg IV push 1, start amiodarone infusion 12/14: Patient remains patient remains intubated currently on 50 mcg/min of Bertin- Synephrine. Remains on amiodarone infusion with heart rate better controlled 110-120. Plan for perc trach at bedside today 12/15: Remains on Bertin-Synephrine 50 mcg/min. On attempted CPAP patient had multiple PVCs and PACs. Potassium 2.7 getting replaced. Argatroban will be restarted 12/16: Patient is more lethargic, profoundly hypotensive Bertin-Synephrine increase to 300 mcg/min. Possibly septic shock. Currently on micafungin backside Levaquin and Flagyl. Add gram-positive coverage with vancomycin send blood cultures. Also will also change central line today-cleared by Dr. Vela to use subclavian access 12/17: Hypertensive encephalopathic Bertin-Synephrine at 100 mcg/min. new right subclavian central line placed left IJ will be sent for culture. Currently in A. fib with RVR heart rate varying from 110s-130. If persistent will give 2.5 metoprolol. AUGUSTA negative and argatroban discontinued. Start heparin subcu for DVT prophylaxis 12/18: Patient remains critically currently on 140 mcg/min of Bertin-Synephrine. Tachypneic with agonal appearing breathing on CPAP trial. Chest x-ray remains unchanged. Platelet count is 54 today, will hold subcu heparin. 12/19: Afebrile. Patient failed CPAP trials today. Patient underwent dialysis 3 L off today. Patient continues on vasopressor support with phenylephrine. Labs pending. Placed right chest tube to waterseal. 12/20: Continues to be critical currently on 200 mcg/min of Nmi-[id number]-[id number] is increased from yesterday, remains hypotensive. Atrial fibrillation with RVR persist. Will restart IV amiodarone in an attempt to cardiovert due to hypotension. However I do not believe his hypotension is due to A. fib with RVR , hypotension is mostly from sepsis. There is no indication for DC cardioversion. New sputum culture shows Pseudomonas intermediately sensitive to Levaquin. Continue Zerbaxa and vanc, and micafungin per ID. DC Levaquin and metronidazole if okay with ID 12/21: No events over the night. Patient continues to require phenylephrine infusion, currently at 120 mcg/minute. Patient is awake, following some commands. T-max of 99.7. Minimal urine output. Right-sided chest tube to waterseal. 12/22: No events over the night. Patient on pressure support of 18 with good tidal volumes but low respiratory rate. He is awake, weak, tracking. present at bedside. Right-sided chest tube to waterseal. Small residual right pneumothorax on chest x-ray. Objective Vital Signs Date Time Temp Pulse Resp B/P (MAP) Pulse Ox O2 Delivery O2 Flow Rate FiO2 12/22/17 09:00 95 30 12/22/17 08:00 98.0 87 22 111/60 Intake and Output 12/22/17 12/22/17 12/23/17 08:00 16:00 00:00 Intake Total 912 ml Output Total 15 ml Balance 897 ml Result Diagram: 12/22/17 0500 12/22/17 0500 Imaging Last 24 hours Impressions Chest X-Ray 12/22/17 0600 Signed Impressions: Service Date/Time: Friday, December 22, 2017 04:38 - CONCLUSION: 1. Right chest tube with tiny right pneumothorax. Right central lines remain unchanged. Slight improvement in left basilar airspace disease with small effusions. Tera Gibson MD Last Impressions Chest X-Ray 12/11/17 0000 Signed Impressions: Service Date/Time: Monday, December 11, 2017 10:51 - CONCLUSION: Stable chest with moderate subcutaneous emphysema and no pneumothorax. Torin Dennison MD FACR Liver Ultrasound 12/09/17 0000 Signed Impressions: Service Date/Time: November 19:18 - CONCLUSION: 1. Limited suboptimal examination with only a small portion of the liver visualized. 2. The gallbladder and common bile duct could not be visualized. The pancreas is not evaluated. 3. Left pleural effusion. Liang Jimenez MD Head CT 12/08/17 0000 Signed Impressions: Service Date/Time: Friday, December 08, 2017 08:25 - CONCLUSION: Negative for acute process. Torin Dennison MD FACR Catheter Placement X-Ray 12/02/17 0000 Signed Impressions: Service Date/Time: November 10:47 - CONCLUSION: Uncomplicated right internal jugular Vas-Cath placement as above. incidental note is made of subcutaneous emphysema within the chest wall and neck Con Dennison MD Lower Extremity Ultrasound 11/29/17 0000 Signed Impressions: Service Date/Time: Wednesday, November 29, 2017 22:02 - CONCLUSION: Normal examination. Abdiel Micntyre MD Renal Ultrasound 11/28/17 0000 Signed Impressions: Service Date/Time: Tuesday, November 28, 2017 20:30 - CONCLUSION: Nondiagnostic exam. Rashad Bose MD Objective Remarks General - elderly gentleman, trached, on ventilator, weak, ill-appearing HEENT - pupils equal, reactive, sclerae anicteric, neck supple, neck veins not distended, trach in place CV - irregular S1, S2, no murmurs Chest - decreased air entry at bases b/l, scattered coarse breath sounds, no wheezes, right-sided chest tube Abdomen - soft, non-tender, slightly distended, BS present, PEG tube in place Skin - peripheral cyanosis over bilateral toes Extremities - warm, 2+ pitting edema, + peripheral pulses Neuro - awake, tracking following some simple commands but does not move extremities on command, very weak A/P Problem List: (1) A-fib ICD Code: I48.91 - Unspecified atrial fibrillation (2) CHF (congestive heart failure) ICD Code: I50.9 - Heart failure, unspecified Status: Chronic (3) HTN (hypertension) ICD Code: I10 - Essential (primary) hypertension Status: Chronic (4) ADRIAN (obstructive sleep apnea) ICD Code: G47.33 - Obstructive sleep apnea (adult) (pediatric) Status: Chronic (5) MRSA pneumonia ICD Code: J15.212 - Pneumonia due to Methicillin resistant Staphylococcus aureus Status: Acute (6) Diabetes mellitus type 2, insulin dependent ICD Code: E11.9 - Type 2 diabetes mellitus without complications; 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 Status: Chronic (7) COPD (chronic obstructive pulmonary disease) ICD Code: J44.9 - Chronic obstructive pulmonary disease, unspecified Status: Acute (8) Respiratory distress ICD Code: R06.03 - Acute respiratory distress Status: Acute (9) Leukocytosis ICD Code: D72.829 - Elevated white blood cell count, unspecified Status: Acute (10) Lung consolidation ICD Code: J18.1 - Lobar pneumonia, unspecified organism Status: Acute (11) Anxiety ICD Code: F41.9 - Anxiety disorder, unspecified Status: Chronic (12) Failure to wean from mechanical ventilation ICD Code: Z99.11 - Dependence on respirator [ventilator] status Assessment and Plan Neurologic: Encephalopathy, metabolic -slowly improving Anxiety Neuro checks per ICU protocol EEG: Mild- mod encephalopathy. Neuro- Dr. Anne. CT brain 12/08 no acute process Respiratory: Acute respiratory failure on mechanical ventilation- extubated and reintubated night of 11/18 after he was noted to choke on water provided by family COPD exacerbation -resolved Pneumonia-MRSA, MDR Pseudomonas Right sided pneumothorax following CPR status post pigtail catheter/chest tube placement 11/27 Obstructive sleep apnea Home O2 dependency Continue with vent support keep sats >90%. s/p Trach 12/14/17 Continue PRVC, reduce tidal volume to 550, keep her PIP below 30, patient synchronized with the vent without auto PEEP Daily CPAP trials Bronchodilators Pulmonology - Dr Price Right sided chest tube in place. Continue 28 F right chest tube, placed to suction Daily chest x-ray Cardiovascular: Shock most likely septic -continues to require phenylephrine infusion Cardiac arrest - asystole, status post CPR 11/27 A. fib RVR History of CHF CAD Peripheral cyanosis/early gangrene of the toes Currently on Bertin-Synephrine 110 mcg/min to keep MAP>65mmHg IV digoxin 0.25 mg 1 12/13, continue QOD digoxin Hydrocortisone 50mg IV Q12, continue while critically ill and hypotensive Atorvastatin 80 daily on hold for elevated LFT's Cardiology - Dr. Reyes. Echo showed EF 65-70% Renal: DAVID Monitor renal function, electrolytes replacement as needed Nephrology Dr. Ragland. 12/02 Vas-Cath placed for initiation of IHD HD per nephrology FEN/GI: Elevated LFT's GERD Monitor LFT's, US liver on 12/06: non diagnostic study US liver 12/09 limited study. Hepatitis profile is negative On tube feeds On Nepro @40cc/hr. Pepcid for GI prophylaxis 12/03 PEG tube placement ID: Pneumonia MRSA, MDR Pseudomonas Leukocytosis Septic shock Continue Vanco, levofloxacin and metronidazole per ID. Also on inhaled Tobra Stool for C. difficile negative on 11/29 and 12/06 Pertinent cultures 12/14 Urine yeast 12/09 BC: NGTD 12/08 Urine cx: C. Glabrata 12/06, 12/16 Sputum cx: Pseudomonas MDR 11/16 sputum cultures- Kleb pneumonia 11/26 sputum cultures growing multidrug resistant Pseudomonas/MRSA 11/28 urine culture growing yeast 11/26 blood culture neg Heme Thrombocytopenia HIT antibody positive AGUUSTA negative. Argatroban discontinued by Dr. Quintana. Endocrine: Glucose monitoring per ICU protocol -- SSI(high scale) Levemir 5u Q12 Msk: Polyneuropathy of Critical Illness Continue PT, OT Prophylaxis: GI Prophylaxis Famotidine BID -- SCDs Holding home dose Eliquis 5 mg BID on 11/27 in view of thrombocytopenia and renal failure Argatroban discontinued HIT AUGUSTA negative Started heparin subcu every 12 hours 12/17/2017, hold due to platelet count being 53, restarted on 12/20 Lines: Left IJ central line placed 11/29-DCd 12/17. New Left central line subclavian placed 12/16/17 Right IJ vascath 12/02 Palliative care is following Patient remains critically ill requiring mechanical ventilation and vasopressors and he is at very high risk for further decompensation and . Discussed with present at bedside. Problem Qualifiers (1) COPD (chronic obstructive pulmonary disease): Qualified Codes: J44.9 - Chronic obstructive pulmonary disease, unspecified (2) Leukocytosis: Qualified Codes: D72.829 - Elevated white blood cell count, unspecified Nick Green MD Dec 22, 2017 11:20
[2017-12-22] MEDS: HYDROCORTISONE SOD SUCCINATE 100 MG VIAL IV PUSH SCH ×2 (12:12→22:59)
--- NOTE | 2017-12-22 13:31 | HHI.IDPN ---
Note Infectious Disease Note Patient is on the ventilator. Awake and alert. Follows commands Afebrile Repeat sputum culture had multiple resistant Pseudomonas aeruginosa. Blood culture from 12/17 has no growth. Central line tip culture from 12/17 has no growth. Haynes catheter changed today. Urine culture from 12/08 and 12/16 had Nette. Previous urine culture on 11/28 had Nette glabrata. Patient was treated with Diflucan. Chest tube in place on the right due to pneumothorax. 77-year-old, white male who presents to the Emergency Department with shortness of breath. The patient has a history of COPD and CHF. He usually uses CPAP at the assisted living facility. He was noted to have been developing coughing and shortness of breath over the past couple of days, and his states that he was coughing a lot yesterday and bringing up mostly phlegm and that he was restless and could not sleep. Recent treatment at [facility] for pneumonia due to methicillin-resistant Staphylococcus aureus. PAST MEDICAL HISTORY: COPD, CHF, atrial fibrillation, insulin-dependent diabetes mellitus, hypertension, hyperlipidemia, gastroesophageal reflux, gastroparesis, iron deficiency anemia, oxygen-dependent. PAST SURGICAL HISTORY: Right knee surgery, right carpal tunnel release, cardiac ablation treatment 2002. ALLERGIES: ASPIRIN, CODEINE. MEDICATIONS: Current Medications Medications (Trade) Dose Ordered Sig/Yani Route PRN Reason Start Time Stop Time Status Last Admin Dose Admin Sodium Chloride (NS Flush) 2 ml UNSCH PRN IV FLUSH FLUSH AFTER USING IV ACCESS 11/14/17 15:45 11/17/17 14:05 Sodium Chloride (NS Flush) 2 ml BID IV FLUSH 11/14/17 21:00 12/22/17 09:11 Ondansetron HCl (Zofran Inj) 4 mg Q6H PRN IV PUSH NAUSEA OR VOMITING 11/14/17 15:45 11/18/17 16:03 Miscellaneous Information 1 Q361D XX 11/14/17 15:45 11/14/17 15:45 Chlorhexidine Gluconate (Chlorhexidine 2% Cloth) Taper DAILY@04 TOP 11/15/17 04:00 11/11/18 03:59 12/19/17 03:13 Chlorhexidine Gluconate (Chlorhexidine 2% Cloth) 3 pack UNSCH PRN TOP HYGIENIC CARE 11/14/17 15:45 Senna/Docusate Sodium (Ricarda-Colace) 1 tab BID PO 11/14/17 21:00 12/22/17 09:12 Magnesium Hydroxide (Milk Of Magnesia Liq) 30 ml Q12H PRN PO Mild constipation 11/14/17 15:45 Sennosides (Senokot) 17.2 mg Q12H PRN PO Moderate constipation 11/14/17 15:45 Bisacodyl (Dulcolax Supp) 10 mg DAILY PRN RECTAL SEVERE CONSITIPATION 11/14/17 15:45 Lactulose (Lactulose Liq) 30 ml DAILY PRN PO SEVERE CONSITIPATION 11/14/17 15:45 Apixaban (Eliquis) 5 mg BID PO 11/14/17 21:00 Future Hold 11/27/17 20:17 Atorvastatin Calcium (Lipitor) 80 mg HS PO 11/14/17 21:00 Future Hold 12/05/17 19:49 Diltiazem HCl (Cardizem) 60 mg QID PO 11/14/17 18:00 Future Hold 12/06/17 08:44 Patient Own Medication PT OWN MED: Mometas... HS INH 11/14/17 21:00 Future Hold Hydralazine HCl (Apresoline Inj) 20 mg Q4H PRN IV PUSH SYS BP GREATER THAN 160 MMHG 11/17/17 12:00 11/22/17 07:38 Budesonide/ Formoterol Fumarate (Symbicort 160-4.5 Mcg Inh) 2 puff Q12HR INH 11/18/17 21:00 12/22/17 08:54 Chlorhexidine Gluconate (Peridex 0.12% Liq) 15 ml BID@08,20 MT 11/19/17 08:00 12/21/17 20:00 Albuterol/ Ipratropium (Duoneb Neb) 1 ampule Q2HR NEB PRN INH WHEEZING 11/18/17 22:30 12/21/17 20:01 Famotidine (Pepcid) 10 mg BID PO 11/22/17 21:00 12/22/17 09:11 Insulin Aspart (NovoLOG SUPPLEMENTAL SCALE) 1 Q4HR SQ 11/26/17 16:00 12/22/17 12:00 Dextrose (D50w (Vial) Inj) 25 ml UNSCH PRN IV HYPOGLYCEMIA-SEE COMMENTS 11/26/17 15:30 12/04/17 01:18 Glucagon (Glucagon Inj) 1 mg UNSCH PRN IM/SQ HYPOGLYCEMIA-SEE COMMENTS 11/26/17 15:30 Fentanyl Citrate 250 ml @ 5 mls/hr TITRATE PRN IV SEDATION 11/27/17 13:45 12/03/17 08:58 Metoprolol Tartrate (Lopressor Inj) 5 mg Q6H PRN IV PUSH heart rate greater than 135/mi 11/29/17 09:15 Sodium Chloride 1,000 ml @ 0 mls/hr Q0M PRN OTHER For Prime & Rinse Back 12/02/17 09:30 12/19/17 09:56 Heparin Sodium (Porcine) (Heparin Inj) 8,000 units UNSCH PRN IV FLUSH WITH DIALYSIS 12/02/17 09:30 Sodium Chloride 1,000 ml @ 200 mls/hr Q5H PRN IV WITH DIALYSIS 12/02/17 09:30 Sodium Chloride 1,000 ml @ 0 mls/hr Q0M PRN OTHER WITH DIALYSIS 12/02/17 09:30 Mannitol (Mannitol Inj) 12.5 gm UNSCH PRN IV WITH DIALYSIS 12/02/17 09:30 12/19/17 09:53 Albumin Human 100 ml @ 60 mls/hr UNSCH PRN IV WITH DIALYSIS 12/02/17 09:30 12/19/17 09:55 Sodium Chloride (NS Flush) 5 ml UNSCH PRN IV FLUSH WITH DIALYSIS 12/02/17 09:30 12/20/17 21:12 Heparin Sodium (Porcine) (Heparin Inj) UNSCH PRN .XX WITH DIALYSIS 12/02/17 09:30 12/19/17 09:58 Gentamicin Sulfate (Gentamicin Inj) 20 mg UNSCH PRN OTHER WITH DIALYSIS 12/02/17 09:30 12/19/17 09:58 Ondansetron HCl (Zofran Inj) 4 mg UNSCH PRN IV PUSH WITH DIALYSIS 12/02/17 09:30 Acetaminophen (Tylenol) 650 mg UNSCH PRN PO for headach, pain, temp > 101F 12/02/17 09:30 12/18/17 23:32 Diphenhydramine HCl (Benadryl) 25 mg UNSCH PRN PO for hives/itching/anaphylaxis 12/02/17 09:30 Nitroglycerin (Nitrostat Sl) 0.4 mg UNSCH PRN SL CHEST PAIN 12/02/17 09:30 Clonidine (Catapres) 0.1 mg UNSCH PRN PO for BP > 180/100 X 2 readings 12/02/17 09:30 Epoetin Kvng (Epogen Inj) 4,000 units UNSCH PRN IV PUSH WITH DIALYSIS 12/02/17 09:30 12/19/17 09:58 Gelatin (Gelfoam 12 Mm/7 Mm Top) 1 foam UNSCH PRN TOP SEE LABEL COMMENTS 12/02/17 09:30 Sodium Chloride (NS Flush) UNSCH PRN IV FLUSH SEE PROTOCOL 12/02/17 11:15 Heparin Sodium (Porcine) (Heparin Inj) UNSCH PRN IV FLUSH SEE PROTOCOL 12/02/17 11:15 Hydrocortisone Sodium Succinate (SoluCORTEF INJ) 50 mg Q12H IV PUSH 12/07/17 23:00 12/22/17 12:12 Insulin Detemir (Levemir Inj) 5 units Q12HR SQ 12/07/17 12:00 12/22/17 09:12 Lanthanum Carbonate (Fosrenol Chew) 500 mg TID CHEW 12/07/17 18:00 12/22/17 12:18 Calcitriol (Rocaltrol) 0.5 mcg DAILY PO 12/08/17 09:00 12/22/17 09:12 Levofloxacin/ Dextrose 50 ml @ 50 mls/hr Q24H IV 12/08/17 16:00 12/21/17 16:28 Metronidazole (Flagyl) 500 mg Q6HR PO 12/10/17 13:30 12/22/17 12:12 Phenylephrine HCl 160 mg/Dextrose 500 ml @ 7.5 mls/hr TITRATE PRN IV Blood pressure management 12/10/17 19:30 12/21/17 20:30 Amiodarone HCl 450 mg/Sodium Chloride 250 ml @ 33.33 mls/ hr Q7H31M PRN IV Per Protocol 12/13/17 12:30 12/14/17 23:52 Amiodarone HCl (Cordarone) 200 mg Q12HR PO 12/15/17 14:00 12/22/17 09:11 Morphine Sulfate (Morphine Inj) 1 mg Q4H PRN IV PUSH PAIN SCALE 1 TO 10 12/15/17 19:45 Heparin Sodium (Porcine) (Heparin Inj) 5,000 units Q12H SQ 12/17/17 10:00 Future hold 12/22/17 09:13 Digoxin (Lanoxin) 0.125 mg Q48H PO 12/22/17 09:00 12/22/17 09:11 Amiodarone HCl 450 mg/Sodium Chloride 250 ml @ 33.33 mls/ hr Q7H31M PRN IV Per Protocol 12/20/17 12:00 Norepinephrine Bitartrate 4 mg/ Sodium Chloride 250 ml @ 7.5 mls/hr TITRATE PRN IV Blood pressure management 12/20/17 12:00 Terbutaline Sulfate (Brethine Inj) 1 mg UNSCH PRN SQ For Extravasation 12/20/17 11:00 Tobramycin Sulfate (Timur Neb) 300 mg Q12HR NEB NEB 12/20/17 12:15 12/22/17 08:56 Alteplase, Recombinant (Cathflo Activase Inj) 2 mg Q2H PRN INTRACATH CLOGGED 12/22/17 10:30 OBJECTIVE: Vital Signs Date Time Temp Pulse Resp B/P (MAP) Pulse Ox O2 Delivery O2 Flow Rate FiO2 12/22/17 12:30 35 12/22/17 12:00 79 12/22/17 12:00 98.7 110 28 111/53 88 12/22/17 12:00 94 35 12/22/17 12:00 30 12/22/17 10:00 98 12/22/17 09:00 95 30 12/22/17 08:00 30 12/22/17 08:00 98.0 87 22 111/60 100 12/22/17 08:00 79 12/22/17 04:53 99 30 12/22/17 04:15 98 27 99/68 (78) 97 12/22/17 04:00 30 12/22/17 04:00 97.6 99 28 105/67 (80) 96 12/22/17 03:45 102 30 108/59 (75) 97 12/22/17 03:30 102 30 106/57 (73) 97 12/22/17 03:15 108 30 103/55 (71) 97 12/22/17 03:00 101 32 116/58 (77) 95 4/25/18 02:45 107 36 121/62 (81) 71 4/18 02:30 100 27 110/56 (74) 96 18 02:15 95 29 98/56 (70) 95 12/22/17 02:00 99 31 95/61 (72) 96 18 01:45 97 32 106/59 (75) 97 12/22/17 01:30 105 30 107/57 (74) 97 18 01:15 99 27 104/56 (72) 97 18 01:00 102 30 102/54 (70) 97 18 00:47 100 30 18 00:45 103 28 108/58 (75) 99 12/22/17 00:30 103 33 104/57 (73) 100 12/22/17 00:15 111 27 103/56 (72) 97 12/22/17 00:00 97 31 97/57 (70) 100 12/22/17 00:00 30 12/22/17 00:00 97.8 97 31 97/57 (70) 100 18 23:45 101 27 104/55 (71) 100 18 23:30 103 18 104/59 (74) 100 18 23:15 102 18 105/58 (74) 99 12/21/17 23:00 98 16 104/59 (74) 99 18 22:45 105 26 107/57 (74) 98 18 22:30 103 25 98/56 (70) 97 18 22:15 96 15 95/52 (66) 98 18 22:00 95 26 88/53 (65) 99 18 21:45 97 49 101/59 (73) 100 18 21:30 98 35 109/62 (78) 100 18 21:15 99 30 113/74 (87) 100 18 21:00 101 62 117/67 (84) 100 18 20:45 109 57 109/64 (79) 100 18 20:30 93 37 114/65 (81) 100 18 20:30 93 114/65 4//18 20:15 101 33 100/57 (71) 99 4/24/18 20:02 100 30 12/21/17 20:00 98.0 104 35 105/56 (72) 98 12/21/17 20:00 30 12/21/17 18:00 99 12/21/17 16:00 92 12/21/17 16:00 30 12/21/17 16:00 98.5 92 32 98/62 (74) 94 12/21/17 15:26 100 30 12/21/17 14:00 101 Laboratory Tests Test 12/21/17 16:27 12/22/17 05:00 White Blood Count 8.7 TH/MM3 8.2 TH/MM3 Red Blood Count 3.34 MIL/MM3 3.13 MIL/MM3 Hemoglobin 9.4 GM/DL 9.1 GM/DL Hematocrit 29.7 % 28.0 % Mean Corpuscular Volume 88.8 FL 89.5 FL Mean Corpuscular Hemoglobin 28.1 PG 29.1 PG Mean Corpuscular Hemoglobin Concent 31.6 % 32.5 % Red Cell Distribution Width 19.6 % 20.2 % Platelet Count 74 TH/MM3 81 TH/MM3 Mean Platelet Volume 11.0 FL 10.2 FL Neutrophils (%) (Auto) 73.2 % 76.1 % Lymphocytes (%) (Auto) 19.4 % 15.7 % Monocytes (%) (Auto) 6.8 % 7.8 % Eosinophils (%) (Auto) 0.3 % 0.1 % Basophils (%) (Auto) 0.3 % 0.3 % Neutrophils # (Auto) 6.4 TH/MM3 6.2 TH/MM3 Lymphocytes # (Auto) 1.7 TH/MM3 1.3 TH/MM3 Monocytes # (Auto) 0.6 TH/MM3 0.6 TH/MM3 Eosinophils # (Auto) 0.0 TH/MM3 0.0 TH/MM3 Basophils # (Auto) 0.0 TH/MM3 0.0 TH/MM3 CBC Comment AUTO DIFF AUTO DIFF Differential Total Cells Counted 100 100 Neutrophils % (Manual) 76 % 67 % Band Neutrophils % 6 % 16 % Lymphocytes % 15 % 12 % Monocytes % 1 % 3 % Neutrophils # (Manual) 7.3 TH/MM3 6.9 TH/MM3 Metamyelocytes 1 % Myelocytes 1 % 1 % Nucleated Red Blood Cells 1 /100 WBC Differential Comment FINAL DIFF MANUAL FINAL DIFF MANUAL Toxic Granulation 3+ Platelet Estimate LOW LOW Platelet Morphology Comment NORMAL NORMAL Basophilic Stippling FAINT Spherocytes 1+ Ovalocytes Stomatocytes 1+ 2+ Acanthocytes OCC Basophils % 1 % Laboratory Tests Test 12/21/17 03:25 12/21/17 16:27 12/22/17 05:00 Creatinine 2.51 MG/DL 2.28 MG/DL 2.48 MG/DL Estimat Glomerular Filtration Rate 25 ML/MIN 28 ML/MIN 25 ML/MIN Blood Urea Nitrogen 78 MG/DL 88 MG/DL Random Glucose 178 MG/DL 296 MG/DL Total Protein 5.5 GM/DL 5.0 GM/DL Albumin 3.7 GM/DL 3.1 GM/DL Calcium Level 7.8 MG/DL 7.6 MG/DL Magnesium Level 1.8 MG/DL 1.9 MG/DL Alkaline Phosphatase 286 U/L 268 U/L Aspartate Amino Transf (AST/SGOT) 15 U/L 16 U/L Alanine Aminotransferase (ALT/SGPT) 21 U/L 18 U/L Total Bilirubin 0.7 MG/DL 0.6 MG/DL Sodium Level 137 MEQ/L 135 MEQ/L Potassium Level 3.0 MEQ/L 3.1 MEQ/L Chloride Level 98 MEQ/L 94 MEQ/L Carbon Dioxide Level 25.6 MEQ/L 25.7 MEQ/L Anion Gap 13 MEQ/L 15 MEQ/L Phosphorus Level 1.6 MG/DL 1.8 MG/DL Imaging: Chest X-Ray 12/22/17 0600 Signed Impressions: Service Date/Time: Friday, December 22, 2017 04:38 - CONCLUSION: 1. Right chest tube with tiny right pneumothorax. Right central lines remain unchanged. Slight improvement in left basilar airspace disease with small effusions. Tera Gibson MD Chest X-Ray 12/21/17 0000 Signed Impressions: Service Date/Time: Thursday, December 21, 2017 15:42 - CONCLUSION: 1. Small right-sided pneumothorax. 2. Right-sided chest tube remains in place. 3. Slight increase in left lung base opacity. Prosper Klein MD Chest X-Ray 12/17/17 0000 Signed Impressions: Service Date/Time: Sunday, December 17, 2017 08:12 - CONCLUSION: 1. No significant 24-hour interval change. 2. Stable tubes and lines. 3. Stable right chest tube with stable small right pneumothorax and subcutaneous emphysema. 4. Stable left lower lobe patchy airspace disease. Anil Aldana MD PHYSICAL EXAMINATION: GENERAL: Sedated. Awake. No acute distress. HEENT: No icterus. Moist mucosa. NECK: No swelling or adenopathy. LUNGS: Decreased breath sounds. Clear breath sounds HEART: Irregular S1 and S2. No murmurs, rubs or gallops. ABDOMEN: Bowel sounds present, obese, soft. Non tender. EXTREMITIES: 1+ diffuse edema. Edema of the legs has decreased. Cyanosis at the tips of the toes. The feet are warm. SKIN: No diffuse rash. NEUROLOGIC: Nonfocal. Follows commands. PSYCHIATRIC: Calm. IMPRESSION: 1. New fever. Cultures negative. 2. Sepsis. 3. Pneumonia - Pseudomonas MDR. Latest sputum culture - Pseudomonas. Could be colonization. However with his seriously ill clinical condition he may have ongoing pneumonia. 4. Acute respiratory failure. Vent dependent. Extubated previously and appears to have aspirated. 5. Leukocytosis. White blood cell count decreasing. 6. Nette glabrata UTI. Persistent despite management with Diflucan. Repeat urine still positive Last urine culture on 12/14 and 12/16 had Nette glabrata, this could be due to colonization. 6. Right-sided pneumothorax. Subcutaneous emphysema. 7. History of chronic obstructive pulmonary disease and recent chronic obstructive pulmonary disease exacerbation. 8. Renal failure. Receiving hemodialysis. 9. Elevated liver function tests. LFTs down to normal. Appears stable. RECOMMENDATIONS: 1. Continue aerosol tobramycin. 2. Continue Levaquin. 3. Continue metronidazole. 4. Monitor clinical status. Tom Long MD Dec 22, 2017 13:31
[2017-12-22] MEDS: LEVOFLOXACIN 250 MG PREMIX INJ 50 ML IV SCH (16:49)
[2017-12-23] VITALS (23 sets, daily range): BP systolic 90–136; BP diastolic 56–96; PULSE 71–184; RESP 16–71; TEMP 98–98.8; O2SAT 92–100
[2017-12-23] MEDS: metroNIDAZOLE 500 MG TAB PO SCH ×5 (00:30→21:21)
[2017-12-23] MEDS: PHENYLEPHRINE INJ 160 MG in DEXTROSE 5% IN WATE 500 ML INJ 484 ML IV PRN ×2 (00:31)
[2017-12-23] MEDS: INSULIN ASPART SUPPLEMENTAL SCALE SQ SCH ×6 (03:40→21:27)
--- NOTE | 2017-12-23 05:27 | RADRPT ---
EXAM DATE/TIME: 12/23/2017 04:04 [facility] COMPARISON: CHEST SINGLE AP, December 22, 2017, 4:38. INDICATIONS : Shortness of breath, possible pulmonary disease. MEDICAL HISTORY : Chronic obstructive pulmonary disease. Cardiovascular disease. SURGICAL HISTORY : Tracheostomy ENCOUNTER: Subsequent ACUITY: 1 month PAIN SCORE: Non-responsive. LOCATION: Bilateral chest FINDINGS: A single view of the chest demonstrates left basilar density. Right lung clear. Right-sided chest tub e without pneumothorax. Tracheostomy tube, right jugular line and right subclavian line are unchanged . Subcutaneous emphysema on the right.. The cardiomediastinal contours are unremarkable. Osseous st ructures are intact. CONCLUSION: 1. Right-sided chest tube without pneumothorax. 2. Left basilar density, unchanged. Nikunj Oneil MD on December 23, 2017 at 5:23 Board Certified Radiologist. This report was verified electronically.
[2017-12-23 06:42] LABS: AUTOMATED NEUTROPHIL # 6.6 TH/MM3 (1.8-7.7); BASOPHIL % 0.3 % (0.0-2.0); HEMATOCRIT 29.7 % (39.0-51.0); HEMOGLOBIN 9.4 GM/DL (13.0-17.0); LYMPH % 10.8 % (9.0-44.0); LYMPHOCYTE # 0.9 TH/MM3 (1.0-4.8); MEAN CELL VOLUME 89.7 FL (80.0-100.0); MEAN CORPUSCULAR HEMOGLOBIN 28.5 PG (27.0-34.0); MEAN CORPUSCULAR HGB CONC 31.8 % (32.0-36.0); MEAN PLATELET VOLUME 10.1 FL (7.0-11.0); MONOCYTE # 0.6 TH/MM3 (0-0.9); NEUT % 81.9 % (16.0-70.0); PLATELET COUNT 141 TH/MM3 (150-450); RED BLOOD COUNT 3.31 MIL/MM3 (4.50-5.90); RED CELL DISTRIBUTION WIDTH 21.7 % (11.6-17.2); WHITE BLOOD COUNT 8.1 TH/MM3 (4.0-11.0)
[2017-12-23 07:07] LABS: ALBUMIN 2.8 GM/DL (3.4-5.0); ALKALINE PHOSPHATASE 266 U/L (45-117); ALT (GPT) 17 U/L (12-78); AST (GOT) 19 U/L (15-37); BICARBONATE 23.2 MEQ/L (21.0-32.0); BLOOD UREA NITROGEN 101 MG/DL (7-18); CHLORIDE 95 MEQ/L (98-107); CREATININE 2.78 MG/DL (0.60-1.30); GLOMERULAR FILTRATION RATE 22 ML/MIN (>89); GLUCOSE,RANDOM 168 MG/DL (74-106); MAGNESIUM 1.9 MG/DL (1.5-2.5); PHOSPHORUS 1.9 MG/DL (2.5-4.9); RANDOM VANCOMYCIN 20.9 COMMENT; SODIUM (NA) 133 MEQ/L (136-145); TOTAL BILIRUBIN ADULT 0.6 MG/DL (0.2-1.0); TOTAL PROTEIN 4.8 GM/DL (6.4-8.2)
[2017-12-23] MEDS: BUDESONIDE-FORMOTEROL 160/4.5 MCG INHALER INH SCH ×2 (07:28→18:38)
[2017-12-23] MEDS: RESP: TOBRAMYCIN SULFATE 300 MG/5 ML NEB NEB SCH ×2 (07:29→19:25)
[2017-12-23 07:32] LABS: BANDS 7 % (0-6); LYMPHOCYTES 4 % (9-44); MONOCYTES 10 % (0-8); MYELOCYTES 2 % (0-0); POLYS (SEG NEUTROPHILS) 77 % (16-70)
[2017-12-23 07:33] LABS: OVALOCYTES 1+ (NORMAL)
[2017-12-23 07:35] LABS: POLYCHROMASIA 2.2 % (0.0-1.9)
[2017-12-23] MEDS: CHLORHEXIDINE 0.12% (ORAL KIT) 15 ML CUP MT SCH ×2 (08:00→21:38)
[2017-12-23] MEDS: INSULIN DETEMIR 100 UNITS/ML VIAL SQ SCH ×2 (09:00→21:26)
[2017-12-23] MEDS: SODIUM CHLORIDE 0.9% FLUSH 10 ML FLUSH IV FLUSH SCH ×2 (09:00→21:21)
[2017-12-23] MEDS: AMIODARONE 200 MG TAB PO SCH ×2 (09:00→21:20)
[2017-12-23] MEDS: DOCUSATE SODIUM 50 MG/SENNA 8.6 MG TAB PO SCH ×2 (09:00→21:00)
[2017-12-23] MEDS: LANTHANUM CARBONATE 500 MG CHEWABLE TABLET CHEW SCH ×4 (09:59→21:20)
[2017-12-23] MEDS: HEPARIN SODIUM - SQ 10,000 UNITS/ML VIAL SQ SCH ×2 (09:59→21:21)
[2017-12-23] MEDS: CALCITRIOL 0.25 MCG CAP PO SCH (09:59)
[2017-12-23] MEDS: FAMOTIDINE 20 MG TAB PO SCH ×2 (09:59→21:21)
[2017-12-23] MEDS ORDERED: SODIUM PHOSPHATE INJ 30 MMOL in SODIUM CHLOR 0.9% 250 ML INJ 250 ML IV ONE (10:30)
--- NOTE | 2017-12-23 10:30 | HHI.NPPN ---
Subjective Renal Failure: Acute History of Present Illness This is a 77-year-old male with past medical history of ischemic heart disease, atrial fibrillation, congestive heart failure, possibly diastolic dysfunction, diabetes mellitus, chronic obstructive pulmonary disease, was admitted on 11/14 with respiratory distress. Nephrology was called to see the patient because of elevated BUN and creatinine. The patient has creatinine of 1.1 on admission, which increased after 2 or 3 to 1.3-1.5 and for the last 2 days, it has been going up and now it is 2.8. The patient was initially diagnosed with pneumonia and was started on antibiotics and then later on, patient developed respiratory failure and was intubated. He was also found to have asystole on 11/27 for 3 minutes and CPR was done with ACLS protocol, and it was shown that he has large right-sided pneumothorax. The blood pressure has been stable and there are no significant hypotensive episodes documented. Most of the history was taken from he patient' s chart. Additional Remarks Remains on ventilator with matilda- synephrine infusing. Cath jose yesterday was not effective. Will replace catheter today. (Adeola Velez) Review of Systems General General Remarks Unable to do ROS as patient is intubated (Adeola Velez) Objective Data Data Vital Signs Date Time Temp Pulse Resp B/P (MAP) Pulse Ox O2 Delivery O2 Flow Rate FiO2 12/23/17 10:19 97 35 12/23/17 10:07 99 35 12/23/17 10:07 35 12/23/17 08:00 30 12/23/17 07:29 100 35 12/23/17 06:00 87 12/23/17 04:44 100 35 12/23/17 04:00 79 12/23/17 04:00 98.8 79 18 107/63 (78) 92 12/23/17 04:00 30 12/23/17 02:00 71 12/23/17 00:57 100 35 12/23/17 00:31 84 113/58 12/23/17 00:00 98.3 89 27 90/56 (67) 100 12/23/17 00:00 30 12/23/17 00:00 89 12/22/17 22:00 94 12/22/17 20:59 100 35 12/22/17 20:00 30 12/22/17 20:00 95 12/22/17 20:00 98.4 95 30 88/59 (69) 97 12/22/17 18:00 88 12/22/17 16:19 100 35 12/22/17 16:00 30 12/22/17 16:00 80 12/22/17 16:00 98.3 78 33 107/55 100 12/22/17 14:00 91 12/22/17 12:30 35 12/22/17 12:00 79 12/22/17 12:00 98.7 110 28 111/53 88 12/22/17 12:00 94 35 12/22/17 12:00 30 (Adeola Velez) -: 12/23/17 0600 12/23/17 0600 Imaging Last Impressions Chest X-Ray 12/23/17 0600 Signed Impressions: Service Date/Time: November 04:04 - CONCLUSION: 1. Right- sided chest tube without pneumothorax. 2. Left basilar density, unchanged. Nikunj Oneil MD Liver Ultrasound 12/09/17 0000 Signed Impressions: Service Date/Time: November 19:18 - CONCLUSION: 1. Limited suboptimal examination with only a small portion of the liver visualized. 2. The gallbladder and common bile duct could not be visualized. The pancreas is not evaluated. 3. Left pleural effusion. Liang Jimenez MD Head CT 12/08/17 0000 Signed Impressions: Service Date/Time: Friday, December 08, 2017 08:25 - CONCLUSION: Negative for acute process. Torin Dennison MD FACR Catheter Placement X-Ray 12/02/17 0000 Signed Impressions: Service Date/Time: November 10:47 - CONCLUSION: Uncomplicated right internal jugular Vas-Cath placement as above. incidental note is made of subcutaneous emphysema within the chest wall and neck Con Dennison MD Lower Extremity Ultrasound 11/29/17 0000 Signed Impressions: Service Date/Time: Wednesday, November 29, 2017 22:02 - CONCLUSION: Normal examination. Abdiel Mcintyre MD Renal Ultrasound 11/28/17 0000 Signed Impressions: Service Date/Time: Tuesday, November 28, 2017 20:30 - CONCLUSION: Nondiagnostic exam. Rashad Bose MD Tubes & Lines: Vas-Cath, Haynes (Adeola VelezP) Physical Exam General Appearance: Obese Appearance Remarks Intubated (Adeola Velez. ARBORER) Eyes Eye Exam: Pupils Equal (Adeola Velez. ARBORER) Pulmonary Resp Exam: Breath Sounds Equal Resp Remarks Intubated CT right chest wall (Adeola Velez ARBORER) Cardiology CV Exam: Regular (Adeola Velez. ARBORER) Gastrointestinal/Abdomen GI Exam: Soft, Non-Tender, Distended (Adeola Velez. ARBORER) Genitourinary Exam: Flank Non-Tender (Adeola Velez. ARBORER) Integumentary Skin Exam: Clear, Warm (Adeola Velez. ARBORER) Extremeties Extremities Exam: Moderate Edema (Adeola Velez M. ARBORER) Neurologic Neuro Exam: Awake (Adeola VelezP) Assessment/Plan Assessment Summary: DAVID/Acute Renal Failure Problem List: (1) DAVID (acute kidney injury) ICD Codes: N17.9 - Acute kidney failure, unspecified Plan: Acute kidney injury most likely related to acute tubular necrosis, either from the infection or related to his cardiac status and cardiac arrest. Creatinine is stable but minimal urinary output Continues on matilda matilda- synephrine for blood pressure support Plan Continue for follow UOP and BMP Avoid nephrotoxins as possible. Mannitol and Albumin with HD. Hemodialysis planned for today remove fluid as tolerated. Vas cath with cath jose yesterday and was not effective will have vas cath replaced today. PO4 low will order replacement. (2) Respiratory failure ICD Codes: J96.90 - Respiratory failure, unspecified, unspecified whether with hypoxia or hypercapnia Plan: Intubated weaning per personnel scheduler. (3) Thrombocytopenia ICD Codes: D69.6 - Thrombocytopenia, unspecified Plan: Hematology has been consulted and following (4) Anemia ICD Codes: D64.9 - Anemia, unspecified Plan: has received blood transfusion. (Adeola Velez. ARBORER) Problem List: (1) DAVID (acute kidney injury) ICD Codes: N17.9 - Acute kidney failure, unspecified Plan: Acute kidney injury most likely related to acute tubular necrosis, either from the infection or related to his cardiac status and cardiac arrest. Creatinine is stable but minimal urinary output Continues on matilda matilda- synephrine for blood pressure support Plan Continue for follow UOP and BMP Avoid nephrotoxins as possible. Mannitol and Albumin with HD. Hemodialysis planned for today remove fluid as tolerated. Vas cath with cath jose yesterday and was not effective will have vas cath replaced today. PO4 low will order replacement. Patient seen and examined, agree with above. HD today. (2) Respiratory failure ICD Codes: J96.90 - Respiratory failure, unspecified, unspecified whether with hypoxia or hypercapnia Plan: Intubated weaning per personnel scheduler. (3) Thrombocytopenia ICD Codes: D69.6 - Thrombocytopenia, unspecified Plan: Hematology has been consulted and following (4) Anemia ICD Codes: D64.9 - Anemia, unspecified Plan: has received blood transfusion. (America Vela MD) Adeola Velez Dec 23, 2017 10:30 America Vela MD Dec 23, 2017 18:59
[2017-12-23 11:29] LABS: INTERNATIONAL NORMALIZED RATIO 1.1 RATIO; PROTHROMBIN TIME - PATIENT 11.5 SEC (9.8-11.6)
[2017-12-23] MEDS: HYDROCORTISONE SOD SUCCINATE 100 MG VIAL IV PUSH SCH (12:40)
--- NOTE | 2017-12-23 12:46 | HHI.IDPN ---
Note Infectious Disease Note Patient is on the ventilator. Remains awake and alert. Following commands On phenylephrine 110 mcg. Afebrile. Last sputum culture had multiple resistant Pseudomonas aeruginosa. Blood culture from 12/17 has no growth. Central line tip culture from 12/17 has no growth. Urine culture from 12/08 and 12/16 had Nette. Previous urine culture on 11/28 had Nette glabrata. Patient was treated with Diflucan. Chest tube in place on the right due to pneumothorax. 77-year-old, white male who presented to the Emergency Department with shortness of breath. The patient has a history of COPD and CHF. He usually uses CPAP at the assisted living facility. He was noted to have been developing coughing and shortness of breath over the past couple of days, and his states that he was coughing a lot on day before admission and bringing up mostly phlegm and that he was restless and could not sleep. Recent treatment at [facility] for pneumonia due to methicillin-resistant Staphylococcus aureus. PAST MEDICAL HISTORY: COPD, CHF, atrial fibrillation, insulin-dependent diabetes mellitus, hypertension, hyperlipidemia, gastroesophageal reflux, gastroparesis, iron deficiency anemia, oxygen-dependent. PAST SURGICAL HISTORY: Right knee surgery, right carpal tunnel release, cardiac ablation treatment 2002. ALLERGIES: ASPIRIN, CODEINE. MEDICATIONS: Current Medications Medications (Trade) Dose Ordered Sig/Yani Route PRN Reason Start Time Stop Time Status Last Admin Dose Admin Sodium Chloride (NS Flush) 2 ml UNSCH PRN IV FLUSH FLUSH AFTER USING IV ACCESS 11/14/17 15:45 11/17/17 14:05 Sodium Chloride (NS Flush) 2 ml BID IV FLUSH 11/14/17 21:00 12/22/17 21:00 Ondansetron HCl (Zofran Inj) 4 mg Q6H PRN IV PUSH NAUSEA OR VOMITING 11/14/17 15:45 11/18/17 16:03 Miscellaneous Information 1 Q361D XX 11/14/17 15:45 11/14/17 15:45 Chlorhexidine Gluconate (Chlorhexidine 2% Cloth) 3 pack Taper DAILY@04 TOP 11/15/17 04:00 11/11/18 03:59 12/19/17 03:13 Chlorhexidine Gluconate (Chlorhexidine 2% Cloth) 3 pack UNSCH PRN TOP HYGIENIC CARE 11/14/17 15:45 Senna/Docusate Sodium (Ricarda-Colace) 1 tab BID PO 11/14/17 21:00 12/22/17 09:12 Magnesium Hydroxide (Milk Of Magnesia Liq) 30 ml Q12H PRN PO Mild constipation 11/14/17 15:45 Sennosides (Senokot) 17.2 mg Q12H PRN PO Moderate constipation 11/14/17 15:45 Bisacodyl (Dulcolax Supp) 10 mg DAILY PRN RECTAL SEVERE CONSITIPATION 11/14/17 15:45 Lactulose (Lactulose Liq) 30 ml DAILY PRN PO SEVERE CONSITIPATION 11/14/17 15:45 Apixaban (Eliquis) 5 mg BID PO 11/14/17 21:00 Future Hold 11/27/17 20:17 Atorvastatin Calcium (Lipitor) 80 mg HS PO 11/14/17 21:00 Future Hold 12/05/17 19:49 Diltiazem HCl (Cardizem) 60 mg QID PO 11/14/17 18:00 Future Hold 12/06/17 08:44 Patient Own Medication PT OWN MED: Mometas... HS INH 11/14/17 21:00 Future Hold Hydralazine HCl (Apresoline Inj) 20 mg Q4H PRN IV PUSH SYS BP GREATER THAN 160 MMHG 11/17/17 12:00 11/22/17 07:38 Budesonide/ Formoterol Fumarate (Symbicort 160-4.5 Mcg Inh) 2 puff Q12HR INH 11/18/17 21:00 12/23/17 07:28 Chlorhexidine Gluconate (Peridex 0.12% Liq) 15 ml BID@08,20 MT 11/19/17 08:00 12/22/17 20:00 Albuterol/ Ipratropium (Duoneb Neb) 1 ampule Q2HR NEB PRN INH WHEEZING 11/18/17 22:30 12/21/17 20:01 Famotidine (Pepcid) 10 mg BID PO 11/22/17 21:00 12/23/17 09:59 Insulin Aspart (NovoLOG SUPPLEMENTAL SCALE) 1 Q4HR SQ 11/26/17 16:00 12/22/17 21:14 Dextrose (D50w (Vial) Inj) 25 ml UNSCH PRN IV HYPOGLYCEMIA-SEE COMMENTS 11/26/17 15:30 12/04/17 01:18 Glucagon (Glucagon Inj) 1 mg UNSCH PRN IM/SQ HYPOGLYCEMIA-SEE COMMENTS 11/26/17 15:30 Fentanyl Citrate 250 ml @ 5 mls/hr TITRATE PRN IV SEDATION 11/27/17 13:45 12/03/17 08:58 Metoprolol Tartrate (Lopressor Inj) 5 mg Q6H PRN IV PUSH heart rate greater than 135/mi 11/29/17 09:15 Sodium Chloride 1,000 ml @ 0 mls/hr Q0M PRN OTHER For Prime & Rinse Back 12/02/17 09:30 12/19/17 09:56 Heparin Sodium (Porcine) (Heparin Inj) 8,000 units UNSCH PRN IV FLUSH WITH DIALYSIS 12/02/17 09:30 Sodium Chloride 1,000 ml @ 200 mls/hr Q5H PRN IV WITH DIALYSIS 12/02/17 09:30 Sodium Chloride 1,000 ml @ 0 mls/hr Q0M PRN OTHER WITH DIALYSIS 12/02/17 09:30 Mannitol (Mannitol Inj) 12.5 gm UNSCH PRN IV WITH DIALYSIS 12/02/17 09:30 12/19/17 09:53 Albumin Human 100 ml @ 60 mls/hr UNSCH PRN IV WITH DIALYSIS 12/02/17 09:30 12/19/17 09:55 Sodium Chloride (NS Flush) 5 ml UNSCH PRN IV FLUSH WITH DIALYSIS 12/02/17 09:30 12/20/17 21:12 Heparin Sodium (Porcine) (Heparin Inj) UNSCH PRN .XX WITH DIALYSIS 12/02/17 09:30 12/19/17 09:58 Gentamicin Sulfate (Gentamicin Inj) 20 mg UNSCH PRN OTHER WITH DIALYSIS 12/02/17 09:30 12/19/17 09:58 Ondansetron HCl (Zofran Inj) 4 mg UNSCH PRN IV PUSH WITH DIALYSIS 12/02/17 09:30 Acetaminophen (Tylenol) 650 mg UNSCH PRN PO for headach, pain, temp > 101F 12/02/17 09:30 12/18/17 23:32 Diphenhydramine HCl (Benadryl) 25 mg UNSCH PRN PO for hives/itching/anaphylaxis 12/02/17 09:30 Nitroglycerin (Nitrostat Sl) 0.4 mg UNSCH PRN SL CHEST PAIN 12/02/17 09:30 Clonidine (Catapres) 0.1 mg UNSCH PRN PO for BP > 180/100 X 2 readings 12/02/17 09:30 Epoetin Kvng (Epogen Inj) 4,000 units UNSCH PRN IV PUSH WITH DIALYSIS 12/02/17 09:30 12/19/17 09:58 Gelatin (Gelfoam 12 Mm/7 Mm Top) 1 foam UNSCH PRN TOP SEE LABEL COMMENTS 12/02/17 09:30 Sodium Chloride (NS Flush) UNSCH PRN IV FLUSH SEE PROTOCOL 12/02/17 11:15 Heparin Sodium (Porcine) (Heparin Inj) UNSCH PRN IV FLUSH SEE PROTOCOL 12/02/17 11:15 Hydrocortisone Sodium Succinate (SoluCORTEF INJ) 50 mg Q12H IV PUSH 12/07/17 23:00 12/22/17 22:59 Insulin Detemir (Levemir Inj) 5 units Q12HR SQ 12/07/17 12:00 12/22/17 21:15 Lanthanum Carbonate (Fosrenol Chew) 500 mg TID CHEW 12/07/17 18:00 12/23/17 09:59 Calcitriol (Rocaltrol) 0.5 mcg DAILY PO 12/08/17 09:00 12/23/17 09:59 Levofloxacin/ Dextrose 50 ml @ 50 mls/hr Q24H IV 12/08/17 16:00 12/22/17 16:49 Metronidazole (Flagyl) 500 mg Q6HR PO 12/10/17 13:30 12/23/17 05:57 Phenylephrine HCl 160 mg/Dextrose 500 ml @ 7.5 mls/hr TITRATE PRN IV Blood pressure management 12/10/17 19:30 12/23/17 00:31 Amiodarone HCl 450 mg/Sodium Chloride 250 ml @ 33.33 mls/ hr Q7H31M PRN IV Per Protocol 12/13/17 12:30 12/14/17 23:52 Amiodarone HCl (Cordarone) 200 mg Q12HR PO 12/15/17 14:00 12/22/17 21:16 Morphine Sulfate (Morphine Inj) 1 mg Q4H PRN IV PUSH PAIN SCALE 1 TO 10 12/15/17 19:45 Heparin Sodium (Porcine) (Heparin Inj) 5,000 units Q12H SQ 12/17/17 10:00 Future hold 12/23/17 09:59 Digoxin (Lanoxin) 0.125 mg Q48H PO 12/22/17 09:00 12/22/17 09:11 Amiodarone HCl 450 mg/Sodium Chloride 250 ml @ 33.33 mls/ hr Q7H31M PRN IV Per Protocol 12/20/17 12:00 Norepinephrine Bitartrate 4 mg/ Sodium Chloride 250 ml @ 7.5 mls/hr TITRATE PRN IV Blood pressure management 12/20/17 12:00 Terbutaline Sulfate (Brethine Inj) 1 mg UNSCH PRN SQ For Extravasation 12/20/17 11:00 Tobramycin Sulfate (Timur Neb) 300 mg Q12HR NEB NEB 12/20/17 12:15 12/23/17 07:29 Alteplase, Recombinant (Cathflo Activase Inj) 2 mg Q2H PRN INTRACATH CLOGGED 12/22/17 10:30 Sodium Phosphate 30 mmol/Sodium Chloride 260 ml @ 43.333 mls/ hr ONCE ONCE IV 12/23/17 10:30 12/23/17 16:29 12/23/17 12:20 OBJECTIVE: Vital Signs Date Time Temp Pulse Resp B/P (MAP) Pulse Ox O2 Delivery O2 Flow Rate FiO2 12/23/17 10:19 97 35 12/23/17 10:07 99 35 12/23/17 10:07 35 12/23/17 10:00 87 12/23/17 08:00 30 12/23/17 08:00 98.1 81 71 101/62 (75) 100 12/23/17 08:00 87 12/23/17 07:29 100 35 12/23/17 06:00 87 12/23/17 04:44 100 35 12/23/17 04:00 79 12/23/17 04:00 98.8 79 18 107/63 (78) 92 12/23/17 04:00 30 12/23/17 02:00 71 12/23/17 00:57 100 35 12/23/17 00:31 84 113/58 12/23/17 00:00 98.3 89 27 90/56 (67) 100 4/26/18 00:00 30 12/23/17 00:00 89 12/22/17 22:00 94 12/22/17 20:59 100 35 12/22/17 20:00 30 12/22/17 20:00 95 12/22/17 20:00 98.4 95 30 88/59 (69) 97 12/22/17 18:00 88 12/22/17 16:19 100 35 12/22/17 16:00 30 12/22/17 16:00 80 12/22/17 16:00 98.3 78 33 107/55 100 12/22/17 14:00 91 Laboratory Tests Test 12/21/17 16:27 12/22/17 05:00 12/23/17 06:00 White Blood Count 8.7 TH/MM3 8.2 TH/MM3 8.1 TH/MM3 Red Blood Count 3.34 MIL/MM3 3.13 MIL/MM3 3.31 MIL/MM3 Hemoglobin 9.4 GM/DL 9.1 GM/DL 9.4 GM/DL Hematocrit 29.7 % 28.0 % 29.7 % Mean Corpuscular Volume 88.8 FL 89.5 FL 89.7 FL Mean Corpuscular Hemoglobin 28.1 PG 29.1 PG 28.5 PG Mean Corpuscular Hemoglobin Concent 31.6 % 32.5 % 31.8 % Red Cell Distribution Width 19.6 % 20.2 % 21.7 % Platelet Count 74 TH/MM3 81 TH/MM3 141 TH/MM3 Mean Platelet Volume 11.0 FL 10.2 FL 10.1 FL Neutrophils (%) (Auto) 73.2 % 76.1 % 81.9 % Lymphocytes (%) (Auto) 19.4 % 15.7 % 10.8 % Monocytes (%) (Auto) 6.8 % 7.8 % 7.0 % Eosinophils (%) (Auto) 0.3 % 0.1 % 0.0 % Basophils (%) (Auto) 0.3 % 0.3 % 0.3 % Neutrophils # (Auto) 6.4 TH/MM3 6.2 TH/MM3 6.6 TH/MM3 Lymphocytes # (Auto) 1.7 TH/MM3 1.3 TH/MM3 0.9 TH/MM3 Monocytes # (Auto) 0.6 TH/MM3 0.6 TH/MM3 0.6 TH/MM3 Eosinophils # (Auto) 0.0 TH/MM3 0.0 TH/MM3 0.0 TH/MM3 Basophils # (Auto) 0.0 TH/MM3 0.0 TH/MM3 0.0 TH/MM3 CBC Comment AUTO DIFF AUTO DIFF AUTO DIFF Differential Total Cells Counted 100 100 100 Neutrophils % (Manual) 76 % 67 % 77 % Band Neutrophils % 6 % 16 % 7 % Lymphocytes % 15 % 12 % 4 % Monocytes % 1 % 3 % 10 % Neutrophils # (Manual) 7.3 TH/MM3 6.9 TH/MM3 7.0 TH/MM3 Metamyelocytes 1 % Myelocytes 1 % 1 % 2 % Nucleated Red Blood Cells 1 /100 WBC Differential Comment FINAL DIFF MANUAL FINAL DIFF MANUAL FINAL DIFF MANUAL Toxic Granulation 3+ Platelet Estimate LOW LOW LOW Platelet Morphology Comment NORMAL NORMAL ENLARGED Basophilic Stippling FAINT Spherocytes 1+ Ovalocytes 1+ Stomatocytes 1+ 2+ Acanthocytes OCC Basophils % 1 % Polychromasia 2.2 % Laboratory Tests Test 12/21/17 16:27 12/22/17 05:00 12/23/17 06:00 Blood Urea Nitrogen 78 MG/DL 88 MG/DL 101 MG/DL Creatinine 2.28 MG/DL 2.48 MG/DL 2.78 MG/DL Random Glucose 178 MG/DL 296 MG/DL 168 MG/DL Total Protein 5.5 GM/DL 5.0 GM/DL 4.8 GM/DL Albumin 3.7 GM/DL 3.1 GM/DL 2.8 GM/DL Calcium Level 7.8 MG/DL 7.6 MG/DL 8.0 MG/DL Magnesium Level 1.8 MG/DL 1.9 MG/DL 1.9 MG/DL Alkaline Phosphatase 286 U/L 268 U/L 266 U/L Aspartate Amino Transf (AST/SGOT) 15 U/L 16 U/L 19 U/L Alanine Aminotransferase (ALT/SGPT) 21 U/L 18 U/L 17 U/L Total Bilirubin 0.7 MG/DL 0.6 MG/DL 0.6 MG/DL Sodium Level 137 MEQ/L 135 MEQ/L 133 MEQ/L Potassium Level 3.0 MEQ/L 3.1 MEQ/L 4.0 MEQ/L Chloride Level 98 MEQ/L 94 MEQ/L 95 MEQ/L Carbon Dioxide Level 25.6 MEQ/L 25.7 MEQ/L 23.2 MEQ/L Anion Gap 13 MEQ/L 15 MEQ/L 15 MEQ/L Estimat Glomerular Filtration Rate 28 ML/MIN 25 ML/MIN 22 ML/MIN Phosphorus Level 1.6 MG/DL 1.8 MG/DL 1.9 MG/DL Imaging: Chest X-Ray 12/23/17 0600 Signed Impressions: Service Date/Time: November 04:04 - CONCLUSION: 1. Right- sided chest tube without pneumothorax. 2. Left basilar density, unchanged. Nikunj Oneil MD Chest X-Ray 12/22/17 0600 Signed Impressions: Service Date/Time: Friday, December 22, 2017 04:38 - CONCLUSION: 1. Right chest tube with tiny right pneumothorax. Right central lines remain unchanged. Slight improvement in left basilar airspace disease with small effusions. Tera Gibson MD Chest X-Ray 12/21/17 0000 Signed Impressions: Service Date/Time: Thursday, December 21, 2017 15:42 - CONCLUSION: 1. Small right-sided pneumothorax. 2. Right-sided chest tube remains in place. 3. Slight increase in left lung base opacity. Prosper Klein MD Chest X-Ray 12/17/17 0000 Signed Impressions: Service Date/Time: Sunday, December 17, 2017 08:12 - CONCLUSION: 1. No significant 24-hour interval change. 2. Stable tubes and lines. 3. Stable right chest tube with stable small right pneumothorax and subcutaneous emphysema. 4. Stable left lower lobe patchy airspace disease. Anil Aldana MD PHYSICAL EXAMINATION: GENERAL: Sedated. Awake. No acute distress. HEENT: No icterus. Moist mucosa. NECK: No swelling or adenopathy. LUNGS: Decreased breath sounds. HEART: Irregular S1 and S2. No murmurs, rubs or gallops. ABDOMEN: Bowel sounds present, obese, soft. Non tender. EXTREMITIES: 1+ diffuse edema. Cyanosis at the tips of the toes. The feet are warm. SKIN: No diffuse rash. NEUROLOGIC: Nonfocal. Follows commands. PSYCHIATRIC: Calm and cooperative. IMPRESSION: 1. New fever. Cultures negative. Temperature has subsided. 2. Sepsis. 3. Pneumonia - Pseudomonas MDR. Latest sputum culture - Pseudomonas. Could be colonization. However with his seriously ill clinical condition he may have ongoing pneumonia. 4. Acute respiratory failure. Vent dependent. Extubated previously and appears to have aspirated. 5. Leukocytosis. White blood cell count decreasing. 6. Nette glabrata UTI. Persistent despite management with Diflucan. Repeat urine still positive Last urine culture on 12/14 and 12/16 had Nette glabrata, this could be due to colonization. 6. Right-sided pneumothorax. Subcutaneous emphysema. 7. History of chronic obstructive pulmonary disease and recent chronic obstructive pulmonary disease exacerbation. 8. Renal failure. Receiving hemodialysis. 9. Elevated liver function tests. LFTs down to normal. Appears stable. RECOMMENDATIONS: 1. Continue aerosol tobramycin. 2. Stop Levaquin. 3. Continue metronidazole. 4. Repeat sputum culture today. 5. Monitor clinical status. Tom Long MD Dec 23, 2017 12:46
--- NOTE | 2017-12-23 14:40 | HHI.CCPN ---
Subjective Remarks/Hospital Course This is a 77-year-old male with a medical history significant for COPD, CHF, A. fib, diabetes, that presented to emergency department from [facility] for evaluation of worsening shortness of breath over the last 3 days. The patient was been given Solu-Medrol 125 mg and 2 albuterol treatments enroute to ED. Upon presentation to the ED the patient was on a nonrebreather. He was tachypneic and tachycardic. Patient's medical history significant for MRSA pneumonia previously admitted on 10/27/16 for approximately 12 days at [facility]. The patient is normally on 2.5 L/m nasal cannula O2 home dependency, and he lives with ( normally) a PCO2 in the 80s according to his . Patient was then discharged to [facility], and then transferred to [facility] for rehabilitation. He has been on an unknown antibiotic per the family and steroids for the last 3 days. Laboratory and imaging studies were performed with noted elevation in CO2 The patient was given empiric antibiotics in the ED and placed on BiPAP. Critical care medicine was consulted. Subjective: 11/15: Patient maintained on BiPAP throughout the night O2 saturations 97-98% on FiO2 of 0.40. Hemodynamically stable. Attempts made to wean patient to nasal cannula this a.m. unsuccessful, patient's O2 saturation in the 70s, patient placed back on BiPAP. Chest x-ray pending WBC count significantly diminished, leukocytosis resolved. Patient extremely anxious, Precedex infusion initiated. 11/16: Late entry note. Patient seen 10 AM. Overnight the patient converted to A. fib RVR, despite being on Cardizem 4 times a day and metoprolol twice a day- home medications, the patient received IV Cardizem followed by amiodarone infusion. Per report the patient became hypotensive, Cardizem discontinued. Amiodarone continued. Early this a.m. patient was resting comfortably A. fib rate controlled rate. The patient suddenly converted to A. fib RVR heart rate 150s-160s, acute hypoxemic respiratory failure, requiring intubation. The patient was intubated uneventfully and continues on amiodarone at 0.5 mg/hour, rate now controlled in conjunction with sedation. Cardiology consulted, his trimmer operator is Dr. Reyes X-ray revealed lung consolidation improved, chest x- ray clear. Plan for CPAP trials in a.m.. 11/17: No acute events overnight. Patient had 1 short 8 beat run of V. tach last evening was self resolution, electrolytes within normal limits. The patient continues on amiodarone 0.5 mg/hr. CPAP trials initiated this a.m.. Tube feeds initiated at trickle feeds. Patient converted to sinus rhythm at 2 AM. 11/18 Patient remains sedated and intubated. Afebrile. 11/19 Patient was extubated yesterday however last night he was noted to choke on water provided by the family. Stat ABG demonstrated acute hypercapnic respiratory failure and was emergently intubated. Currently sedated and intubated. 11/20 Patient remains intubated on Fentanyl drip however he si awake and alert. Afebrile. 11/21 Patient is awake and alert placed on CPAP with PS:15, PEEP:5. Afebrile. 11/22 Patient remains intubated , did not tolerate CPAP trials yesterday as he became tachycardic and hypertensive. On no sedation awake and alert. 11/23 No events overnight, off sedation. 11/24: Resting comfortably on mechanical ventilation currently. Daily C Pap trials ongoing. 11/25: Sedated with Precedex, orally intubated on mechanical ventilation. Daily C Pap trials 11/26: Sedated with Precedex, orally intubated on mechanical ventilation. Got tachypneic with CPAP trial today hence placed back on PRVC. Spiked a fever, garcia cultures ordered. Went into A. fib with RVR subsequently for which being initiated on amiodarone bolus followed by drip and Lopressor 5 mg IV every 6 as needed for 11/27: This morning patient developed bradycardia followed by asystole for which she had 3 minutes CPR with ACLS protocol with return of spontaneous circulation. Post code chest x-ray revealed moderate to large right pneumothorax for which a right pigtail catheter was placed by me however despite airleak patient continue have moderate to large pneumothorax hence a second right sided 28 Maldivian chest tube was placed to -40 cm water pressure. Air leaks 1+ in both pigtail catheter and chest tube. Patient remains in a flutter currently. Dr. reyes evaluated patient as well following cardiac arrest. 11/28: Sedated, arousable, orally intubated on mechanical ventilation. Worsening renal function noted. MDR Pseudomonas in sputum. Right sided chest tube/ pigtail catheter with 1+ air leak in both. Subcutaneous emphysema noted over right side of face neck and right upper extremity. On 50% FiO2, PEEP +5. Poor urine output for which 500 cc and is bolus given earlier. Treated for hyperkalemia with Kayexalate PO, glucose insulin, calcium IV. 4/2: Remains sedated, arousable, orally intubated on mechanical ventilation. A. fib with RVR this morning for which she was loaded with amiodarone and initiated on amiodarone drip. Spiking fever 103.5. ID adjusting antibiotics. Stool for C. difficile ordered as he had some diarrhea today though received Kayexalate yesterday for hyperkalemia. Pigtail catheter on the right side appeared to be dislodged hence this was removed. 28 Maldivian chest tube in right pleural cavity repositioned. 11/30: Late entry note , patient seen at 12 noon. Creatinine continues to trend upward.Sedated but easily arousable. 12/01: Patient lightly sedated, following commands this a.m.. Creatinine noted increased, possible dialysis consideration for tomorrow. Patient to be diuresed today. CPAP trial initiated failed after 5 minutes, repeat this afternoon. 12/02: Patient placed on Lasix infusion throughout the night . No renal improvement,creatinine worsened today , plan for Vas-Cath placement and IHD today. This extensive discussion with patient and plans for tracheostomy and PEG tube placement secondary to failure to wean. 12/03: Late entry note, patient seen at 11 am. Patient scheduled for PEG placement today by Dr. Iglesias. Patient continues to fail CPAP trials. Plan for tracheostomy in the near future 12/04: Late entry note . Patient seen earlier this am. Overnight the patient became hypoglycemic, secondary to n.p.o. status, post PEG placement. D10 was initiated at 30 cc/hr. Tube feeds reinitiated Jevity 1.5, 24 hours post PEG tube placed, D10 discontinued. Patient remains on fentanyl at 100 mics/hour, lightly sedated. Patient denies pain answering by nodding head to yes and no questions. Tracheostomy planned for Wednesday12/06/[address] Calderon. 12/05: Remains intubated sedated with 50 mcg of fentanyl. On attempted CPAP trial patient remained dyspneic. Significant neuromuscular weakness persist. Chest x-ray shows small right apical pneumothorax. Tentatively plan for tracheostomy tomorrow. Dr. Calderon has already been consulted 12/06 Patient remains intubated for possible trach today. On Levophed 12 mics. Afebrile. 12/07 No events overnight. Trach was placed on hold yesterday as patient was on Levophed. He is down to 5 mics today. Afebrile. 12/08 Patient remains intubated on no sedation. CT brain this morning showed no acute process. Off Levophed. 12/09 Patient was placed back on Levophed 6 mics. Afebrile. Remains intubated on no sedation. 12/10 Patient remains intubated. On Neosyn 40 mics went into Afib with RVR HR 128 12/11 Patient remains intubated. Now on Neosyn 200 mics ( MAP 86mmHg). s/p HD yesterday with 1.5L removed. T:99.7 12/12 Patient remains sedated and intubated. Neosyn down 100 mics. For transfusion 2u PRBC and 1u PLT ( Hgb 6.7 and PLT 18 this morning) s/p HD with 3L removed yesterday. WBC is trending down. 12/13: More critically ill today, Bertin-Synephrine had to be increased to 150 mcg/ min, remains borderline hypotensive despite Bertin-Synephrine, currently in A. fib with RVR. Digoxin additional 0.25 mg IV push 1, start amiodarone infusion 12/14: Patient remains patient remains intubated currently on 50 mcg/min of Bertin- Synephrine. Remains on amiodarone infusion with heart rate better controlled 110-120. Plan for perc trach at bedside today 12/15: Remains on Bertin-Synephrine 50 mcg/min. On attempted CPAP patient had multiple PVCs and PACs. Potassium 2.7 getting replaced. Argatroban will be restarted 12/16: Patient is more lethargic, profoundly hypotensive Bertin-Synephrine increase to 300 mcg/min. Possibly septic shock. Currently on micafungin backside Levaquin and Flagyl. Add gram-positive coverage with vancomycin send blood cultures. Also will also change central line today-cleared by Dr. Vela to use subclavian access 12/17: Hypertensive encephalopathic Bertin-Synephrine at 100 mcg/min. new right subclavian central line placed left IJ will be sent for culture. Currently in A. fib with RVR heart rate varying from 110s-130. If persistent will give 2.5 metoprolol. AUGUSTA negative and argatroban discontinued. Start heparin subcu for DVT prophylaxis 12/18: Patient remains critically currently on 140 mcg/min of Bertin-Synephrine. Tachypneic with agonal appearing breathing on CPAP trial. Chest x-ray remains unchanged. Platelet count is 54 today, will hold subcu heparin. 12/19: Afebrile. Patient failed CPAP trials today. Patient underwent dialysis 3 L off today. Patient continues on vasopressor support with phenylephrine. Labs pending. Placed right chest tube to waterseal. 12/20: Continues to be critical currently on 200 mcg/min of Aid-Kzhuxajgyw-zdxmw is increased from yesterday, remains hypotensive. Atrial fibrillation with RVR persist. Will restart IV amiodarone in an attempt to cardiovert due to hypotension. However I do not believe his hypotension is due to A. fib with RVR , hypotension is mostly from sepsis. There is no indication for DC cardioversion. New sputum culture shows Pseudomonas intermediately sensitive to Levaquin. Continue Zerbaxa and vanc, and micafungin per ID. DC Levaquin and metronidazole if okay with ID 12/21: No events over the night. Patient continues to require phenylephrine infusion, currently at 120 mcg/minute. Patient is awake, following some commands. T-max of 99.7. Minimal urine output. Right-sided chest tube to waterseal. 12/22: No events over the night. Patient on pressure support of 18 with good tidal volumes but low respiratory rate. He is awake, weak, tracking. present at bedside. Right-sided chest tube to waterseal. Small residual right pneumothorax on chest x-ray. 12/23: No events over the night. T-max of 98.8. Slight increase in subcutaneous emphysema over the right side. On morning chest x-ray pneumothorax , chest tube placed back on suction. Objective Vital Signs Date Time Temp Pulse Resp B/P (MAP) Pulse Ox O2 Delivery O2 Flow Rate FiO2 12/23/17 14:00 95 12/23/17 13:58 100 35 12/23/17 12:00 98.0 42 112/64 (80) Intake and Output 12/23/17 12/23/17 12/23/17 07:59 15:59 23:59 Intake Total 1241 ml Output Total 0 ml Balance 1241 ml Result Diagram: 12/23/17 0612/23/17599 Other Results Laboratory Tests Test 12/23/17 05:57 Blood Gas Puncture Site CENTRAL LINE/RN Blood Gas Patient Temperature 98.6 Venous Blood pH 7.25 (7.360-7.400) Venous Blood Partial Pressure CO2 61 mmHg (44-48) Venous Blood Partial Pressure O2 40 mmHg (35-40) Venous Blood HCO3 26 mmol/L (22-26) Venous Blood Oxygen Saturation 68 % (70-76) Venous Blood Oxygen Content 9.0 Vol % (9.0-17.0) Venous Blood Base Excess -0.5 mmol/L (-2-2) Oxygen Delivery Device VENTILATOR Blood Gas Ventilator Setting SEE COMMENT Blood Gas Inspired Oxygen 35 % Imaging Last 24 hours Impressions Chest X-Ray 12/23/17 06 Signed Impressions: Service Date/Time: November 04:04 - CONCLUSION: 1. Right- sided chest tube without pneumothorax. 2. Left basilar density, unchanged. Nikunj Oneil MD Last 24 hours Impressions Chest X-Ray 12/22/17 06 Signed Impressions: Service Date/Time: Friday, December 22, 2017 04:38 - CONCLUSION: 1. Right chest tube with tiny right pneumothorax. Right central lines remain unchanged. Slight improvement in left basilar airspace disease with small effusions. Tera Gibson MD Last Impressions Chest X-Ray 12/11/17 0000 Signed Impressions: Service Date/Time: Monday, December 11, 2017 10:51 - CONCLUSION: Stable chest with moderate subcutaneous emphysema and no pneumothorax. Torin Dennison MD FACR Liver Ultrasound 12/09/17 0000 Signed Impressions: Service Date/Time: November 19:18 - CONCLUSION: 1. Limited suboptimal examination with only a small portion of the liver visualized. 2. The gallbladder and common bile duct could not be visualized. The pancreas is not evaluated. 3. Left pleural effusion. Liang Jimenez MD Head CT 12/08/17 0000 Signed Impressions: Service Date/Time: Friday, December 08, 2017 08:25 - CONCLUSION: Negative for acute process. Torin Dennison MD FACR Catheter Placement X-Ray 12/02/17 0000 Signed Impressions: Service Date/Time: November 10:47 - CONCLUSION: Uncomplicated right internal jugular Vas-Cath placement as above. incidental note is made of subcutaneous emphysema within the chest wall and neck Con Dennison MD Lower Extremity Ultrasound 11/29/17 0000 Signed Impressions: Service Date/Time: Wednesday, November 29, 2017 22:02 - CONCLUSION: Normal examination. Abdiel Mcintyre MD Renal Ultrasound 11/28/17 0000 Signed Impressions: Service Date/Time: Tuesday, November 28, 2017 20:30 - CONCLUSION: Nondiagnostic exam. Rashad Bose MD Objective Remarks General - elderly gentleman, trached, on ventilator, weak, ill-appearing HEENT - pupils are equal, reactive, sclerae are anicteric, neck is supple, unable to appreciate JVD, trach in place CV - irregular heart sounds, no murmurs Chest - still with decreased air entry at bases b/l, scattered coarse breath sounds, no wheezes, right-sided chest tube Abdomen - soft, non-tender, slightly distended, BS present, PEG tube in place Skin - peripheral cyanosis over bilateral toes, unchanged Extremities - warm, 2+ pitting edema, + peripheral pulses Neuro - awake, weak, tracking, not consistently following commands A/P Problem List: (1) A-fib ICD Code: I48.91 - Unspecified atrial fibrillation (2) CHF (congestive heart failure) ICD Code: I50.9 - Heart failure, unspecified Status: Chronic (3) HTN (hypertension) ICD Code: I10 - Essential (primary) hypertension Status: Chronic (4) ADRIAN (obstructive sleep apnea) ICD Code: G47.33 - Obstructive sleep apnea (adult) (pediatric) Status: Chronic (5) MRSA pneumonia ICD Code: J15.212 - Pneumonia due to Methicillin resistant Staphylococcus aureus Status: Acute (6) Diabetes mellitus type 2, insulin dependent ICD Code: E11.9 - Type 2 diabetes mellitus without complications; Z79.4 - [employer] (current) use of insulin Status: Chronic (7) COPD (chronic obstructive pulmonary disease) ICD Code: J44.9 - Chronic obstructive pulmonary disease, unspecified Status: Acute (8) Respiratory distress ICD Code: R06.03 - Acute respiratory distress Status: Acute (9) Leukocytosis ICD Code: D72.829 - Elevated white blood cell count, unspecified Status: Acute (10) Lung consolidation ICD Code: J18.1 - Lobar pneumonia, unspecified organism Status: Acute (11) Anxiety ICD Code: F41.9 - Anxiety disorder, unspecified Status: Chronic (12) Failure to wean from mechanical ventilation ICD Code: Z99.11 - Dependence on respirator [ventilator] status Assessment and Plan Neurologic: Encephalopathy, metabolic -unchanged Anxiety Neuro checks per ICU protocol EEG: Mild- mod encephalopathy. Neuro- Dr. Anne. CT brain 12/08 no acute process Respiratory: Acute respiratory failure on mechanical ventilation- extubated and reintubated night of 11/18 after he was noted to choke on water provided by family COPD exacerbation -resolved Pneumonia-MRSA, MDR Pseudomonas Right sided pneumothorax following CPR status post pigtail catheter/chest tube placement 11/27 Obstructive sleep apnea Home O2 dependency Continue with vent support keep sats >90%. s/p Trach 12/14/17 Continue PRVC, vent settings readjusted, respiratory rate increased, TI decreased to 0.9, patient synchronized with the vent without auto PEEP Daily CPAP trials as tolerated Bronchodilators Pulmonology - Dr Price Right sided chest tube placed on suction Daily chest x-ray Cardiovascular: Shock most likely septic -continues to require phenylephrine infusion Cardiac arrest - asystole, status post CPR 11/27 A. fib RVR History of CHF CAD Peripheral cyanosis/early gangrene of the toes Currently on Bertin-Synephrine 110 mcg/min to keep MAP>65mmHg IV digoxin 0.25 mg 1 12/13, continue QOD digoxin Hydrocortisone 50mg IV Q12, continue while critically ill and hypotensive Atorvastatin 80 daily on hold for elevated LFT's Cardiology - Dr. Reyes. Echo showed EF 65-70% Renal: DAVID Monitor renal function, electrolytes replacement as needed Nephrology Dr. Ragland. 12/02 Vas-Cath placed for initiation of IHD HD per nephrology Needs new HD access FEN/GI: Elevated LFT's GERD Monitor LFT's, US liver on 12/06: non diagnostic study US liver 12/09 limited study. Hepatitis profile is negative On tube feeds On Nepro @40cc/hr. Pepcid for GI prophylaxis 12/03 PEG tube placement ID: Pneumonia MRSA, MDR Pseudomonas Leukocytosis Septic shock Continue Vanco, levofloxacin and metronidazole per ID. Also on inhaled Tobra Stool for C. difficile negative on 11/29 and 12/06 Pertinent cultures 12/14 Urine yeast 12/09 BC: NGTD 12/08 Urine cx: C. Glabrata 12/06, 12/16 Sputum cx: Pseudomonas MDR 11/16 sputum cultures- Kleb pneumonia 11/26 sputum cultures growing multidrug resistant Pseudomonas/MRSA 11/28 urine culture growing yeast 11/26 blood culture neg Heme Thrombocytopenia HIT antibody positive AUGUSTA negative. Argatroban discontinued by Dr. Quintana. Endocrine: Glucose monitoring per ICU protocol -- SSI(high scale) Levemir 5u Q12 Msk: Polyneuropathy of Critical Illness Continue PT, OT Prophylaxis: GI Prophylaxis Famotidine BID -- SCDs Holding home dose Eliquis 5 mg BID on 11/27 in view of thrombocytopenia and renal failure Argatroban discontinued HIT AUGUSTA negative Started heparin subcu every 12 hours 12/17/2017, hold due to platelet count being 53, restarted on 12/20 Lines: Left IJ central line placed 11/29-DCd 12/17. New Left central line subclavian placed 12/16/17 Right IJ vascath 12/02 Palliative care is following Patient remains critically ill requiring mechanical ventilation and vasopressors and he is at very high risk for further decompensation and . Discussed with present at bedside. Addendum: Patient seen again before the end of the shift. Hemodialysis catheter has been placed. He has worsening subcutaneous emphysema, chest tube on suction at -40. We will order stat chest x-ray and nighttime medical receptionist medical assistant will follow, to verify correct position chest tube and to look for pneumothorax. Discussed with present at bedside. Problem Qualifiers (1) COPD (chronic obstructive pulmonary disease): Qualified Codes: J44.9 - Chronic obstructive pulmonary disease, unspecified (2) Leukocytosis: Qualified Codes: D72.829 - Elevated white blood cell count, unspecified Nick Green MD Dec 23, 2017 14:40
[2017-12-23] MEDS ORDERED: LIDOCAINE HCL 1% PF 30 ML VIAL ONE (16:17)
--- NOTE | 2017-12-23 16:49 | PD.RAD ---
Post Procedure Progress Note Pre Procedure Diagnosis: (1) Poorly functioning dialysis catheter (2) DAVID (acute kidney injury) Post Procedure Diagnosis: (1) Poorly functioning dialysis catheter (2) DAVID (acute kidney injury) Procedure Date: Dec 23, 2017 Supervising Radiologist: Omid Traore Proceduralist/Assist: Gianna Simpson, RT(R)(CV), Deisy Garcia RT(R) Anesthesia: Local Plan of Activity Patient to Unit: Critical Care Patient Condition: Poor See PACS Report for procedural detail/treatment Central Venous Access Device Procedure 1 Right Internal Jugular Hemodialysis Catheter Non-Tunneled Exchange (and lengthen) dual lumen Tamazight: 14 PICC Line Length (cm): 24 Omid Traore MD Dec 23, 2017 16:49
[2017-12-23] MEDS ORDERED: SODIUM CHLORIDE 0.9% FLUSH 10 ML FLUSH IV FLUSH PRN (17:00)
[2017-12-23] MEDS ORDERED: HEPARIN SODIUM - IV 2,000 UNITS/2 ML VIAL IV FLUSH PRN (17:00)
--- NOTE | 2017-12-23 17:45 | RADRPT ---
EXAM DATE/TIME: 12/23/2017 16:21 [facility] COMPARISON: No previous studies available for comparison. INDICATIONS : Patient with acute renal failure in need of dialysis catheter exchange. MEDICAL HISTORY : A-Fib, HTN, CHF, COPD, GERD, Diabetes SURGICAL HISTORY : Cardiac ablation, Dialysis catheter ENCOUNTER: Subsequent ACUITY: 3 weeks PAIN SCORE: Nonresponsive. FLUORO TIME: 0.7 minutes IMAGE SERIES: 1 DEVICE(S): 1.) 14 Japanese dual lumen 24 cm Schon catheter PROCEDURE : 1. Fluoroscopic guided catheter exchange. 2. Central line placement. The risks, benefits and alternatives to the procedure were explained and verbal and written consent w as obtained. The site was prepped in sterile fashion. Full sterile technique was used, including ca p, mask, sterile gloves and gown and a large sterile sheet. Hand hygiene and 2% chlorhexidine prep w as utilized per protocol for cutaneous antisepsis with appropriate dry time for site. The skin and subcutaneous tissues were infiltrated with local anesthetic solution. With fluoroscopic guidance, the existing catheter was removed over an 035 wire. The new catheter was then advanced over the same wire. The catheter was fixed in place with suture and a sterile dressing was applied. The patient tolerated the procedure well and there were no complications. CONCLUSION: Uncomplicated line exchange as above. 15 cm catheter was exchanged for a 24 cm catheter. Omid Traore MD on December 23, 2017 at 17:41 Board Certified Radiologist. This report was verified electronically.
--- NOTE | 2017-12-23 18:17 | RADRPT ---
EXAM DATE/TIME: 12/23/2017 17:53 [facility] COMPARISON: CHEST SINGLE AP, December 23, 2017, 4:04. INDICATIONS : Evalaute for pneumothorax. MEDICAL HISTORY : Chronic obstructive pulmonary disease. Cardiovascular disease. SURGICAL HISTORY : Tracheostomy ENCOUNTER: Subsequent ACUITY: 1 month PAIN SCORE: Non-responsive. LOCATION: Bilateral chest FINDINGS: Small right pneumothorax loculated superolaterally present. A right chest tube remains in place. No pneumothorax on the left. There is left base consolidation again seen, slightly worse since this m orning. Bilateral chest wall emphysema again noted. Heart size stable, within normal limits. Tracheostomy tube again noted, grossly appropriately positio william. There are right subclavian and right internal jugular central venous catheters with tips in the superior vena cava and right atrium, respectively. CONCLUSION: 1. Small loculated pneumothorax superolaterally on the right unchanged. Right chest tube remains in p lace. 2. Right subclavian and internal jugular catheters are present. I believe the right IJ line has been changed out since this morning. 3. Left base consolidation slightly worse. Abdiel Vidales MD on December 23, 2017 at 18:12 Board Certified Radiologist. This report was verified electronically.
[2017-12-23] MEDS: ALBUMIN 25% INJ 100 ML IV PRN ×3 (18:24→19:10)
[2017-12-23] MEDS: HEPARIN SODIUM - IV 10,000 UNITS/10 ML VIAL PRN (18:27)
[2017-12-23] MEDS: GENTAMICIN SULFATE 20 MG/2 ML VIAL OTHER PRN (18:27)
[2017-12-24] VITALS (19 sets, daily range): BP systolic 94–145; BP diastolic 51–86; PULSE 79–105; RESP 22–28; TEMP 98–99; O2SAT 96–100
[2017-12-24] MEDS: HYDROCORTISONE SOD SUCCINATE 100 MG VIAL IV PUSH SCH ×3 (00:07→23:09)
[2017-12-24] MEDS: INSULIN ASPART SUPPLEMENTAL SCALE SQ SCH ×7 (00:14→23:44)
[2017-12-24] MEDS: PHENYLEPHRINE INJ 160 MG in DEXTROSE 5% IN WATE 500 ML INJ 484 ML IV PRN ×2 (03:57)
[2017-12-24] MEDS: CHLORHEXIDINE GLUCONATE 2 % 1 PACK (2 CLOTHS) TOP SCH (03:59)
[2017-12-24] MEDS: metroNIDAZOLE 500 MG TAB PO SCH ×4 (05:45→23:39)
--- NOTE | 2017-12-24 05:56 | RADRPT ---
EXAM DATE/TIME: 12/24/2017 04:21 [facility] COMPARISON: CHEST SINGLE AP, December 23, 2017, 17:53. INDICATIONS : Shortness of breath. MEDICAL HISTORY : Chronic obstructive pulmonary disease. Cardiovascular disease. SURGICAL HISTORY : Tracheostomy. ENCOUNTER: Subsequent ACUITY: 1 month PAIN SCORE: Non-responsive. LOCATION: chest FINDINGS: Right upper chest lateral pneumothorax measures 9 mm and is similar to prior. Right chest drainage t ube tip remains projected in the mid right chest. Extensive bilateral subcutaneous emphysema in the chest wall and supraclavicular region, similar in severity from prior. There is blunting of the cost ophrenic angle on the left side which appears to be a new finding and may represent pleural effusion. Patchy areas of infiltrate in the left lower lung with loss of delineation of a portion of the left hemidiaphragm, similar to prior. Right central lines and tracheostomy stable. CONCLUSION: 1. Stable right lateral pneumothorax measuring 9 mm. 2. Probable left pleural effusion. Stable patchy infiltrates at the left lung base. Shaq Eisenberg MD on December 24, 2017 at 5:52 Board Certified Radiologist. This report was verified electronically.
[2017-12-24 05:59] LABS: AUTOMATED NEUTROPHIL # 5.4 TH/MM3 (1.8-7.7); BASOPHIL % 0.4 % (0.0-2.0); HEMATOCRIT 24.4 % (39.0-51.0); HEMOGLOBIN 7.8 GM/DL (13.0-17.0); LYMPH % 12.2 % (9.0-44.0); LYMPHOCYTE # 0.8 TH/MM3 (1.0-4.8); MEAN CELL VOLUME 89.2 FL (80.0-100.0); MEAN CORPUSCULAR HEMOGLOBIN 28.4 PG (27.0-34.0); MEAN CORPUSCULAR HGB CONC 31.8 % (32.0-36.0); MEAN PLATELET VOLUME 9.4 FL (7.0-11.0); MONO % 7.5 % (0.0-8.0); MONOCYTE # 0.5 TH/MM3 (0-0.9); NEUT % 79.9 % (16.0-70.0); PLATELET COUNT 145 TH/MM3 (150-450); RED BLOOD COUNT 2.73 MIL/MM3 (4.50-5.90); RED CELL DISTRIBUTION WIDTH 22.3 % (11.6-17.2); WHITE BLOOD COUNT 6.8 TH/MM3 (4.0-11.0)
[2017-12-24 06:33] LABS: ALKALINE PHOSPHATASE 198 U/L (45-117); ALT (GPT) 16 U/L (12-78); AST (GOT) 18 U/L (15-37); BLOOD UREA NITROGEN 66 MG/DL (7-18); CALCIUM 7.7 MG/DL (8.5-10.1); CHLORIDE 98 MEQ/L (98-107); CREATININE 2.03 MG/DL (0.60-1.30); GLOMERULAR FILTRATION RATE 32 ML/MIN (>89); GLUCOSE,RANDOM 143 MG/DL (74-106); MAGNESIUM 1.9 MG/DL (1.5-2.5); PHOSPHORUS 2.3 MG/DL (2.5-4.9); RANDOM VANCOMYCIN 19.8 COMMENT; SODIUM (NA) 139 MEQ/L (136-145); TOTAL BILIRUBIN ADULT 0.8 MG/DL (0.2-1.0); TOTAL PROTEIN 5.7 GM/DL (6.4-8.2)
[2017-12-24] MEDS: RESP: TOBRAMYCIN SULFATE 300 MG/5 ML NEB NEB SCH ×2 (08:00→19:36)
[2017-12-24 08:11] LABS: BANDS 16 % (0-6); LYMPHOCYTES 9 % (9-44); METAMYELOCYTES 1 % (0-1); MONOCYTES 4 % (0-8); NEUTROPHIL # MANUAL DIFF 5.9 TH/MM3 (1.8-7.7); POLYCHROMASIA 3.3 % (0.0-1.9); POLYS (SEG NEUTROPHILS) 70 % (16-70)
[2017-12-24 08:12] LABS: STOMATOCYTES 1+ (NORMAL)
[2017-12-24] MEDS: RESP: ALBUTEROL 2.5 MG/IPRATROPIUM 0.5 MG NEB (PRN) INH (08:15)
[2017-12-24] MEDS: BUDESONIDE-FORMOTEROL 160/4.5 MCG INHALER INH SCH ×2 (08:15→19:36)
[2017-12-24] MEDS: DOCUSATE SODIUM 50 MG/SENNA 8.6 MG TAB PO SCH ×2 (09:00→20:28)
--- NOTE | 2017-12-24 09:21 | HHI.NPPN ---
Subjective Renal Failure: Acute History of Present Illness This is a 77-year-old male with past medical history of ischemic heart disease, atrial fibrillation, congestive heart failure, possibly diastolic dysfunction, diabetes mellitus, chronic obstructive pulmonary disease, was admitted on 11/14 with respiratory distress. Nephrology was called to see the patient because of elevated BUN and creatinine. The patient has creatinine of 1.1 on admission, which increased after 2 or 3 to 1.3-1.5 and for the last 2 days, it has been going up and now it is 2.8. The patient was initially diagnosed with pneumonia and was started on antibiotics and then later on, patient developed respiratory failure and was intubated. He was also found to have asystole on 11/27 for 3 minutes and CPR was done with ACLS protocol, and it was shown that he has large right-sided pneumothorax. The blood pressure has been stable and there are no significant hypotensive episodes documented. Most of the history was taken from he patient' s chart. Additional Remarks Remains on ventilator with matilda- synephrine infusing. Blood pressure has improved and matilda- synephrine has been decreased. (Adeola Velez) Review of Systems General General Remarks Unable to do ROS as patient is intubated (Adeola Velez) Objective Data Data Vital Signs Date Time Temp Pulse Resp B/P (MAP) Pulse Ox O2 Delivery O2 Flow Rate FiO2 12/24/17 08:19 98 35 12/24/17 06:22 88 142/66 12/24/17 06:00 93 12/24/17 05:30 96 128/70 12/24/17 04:37 98 35 12/24/17 04:00 35 12/24/17 04:00 98.6 80 22 119/74 (89) 98 12/24/17 04:00 80 12/24/17 04:00 80 119/74 12/24/17 03:57 85 122/81 12/24/17 02:25 80 120/65 12/24/17 02:00 85 12/24/17 00:00 98.2 87 22 119/58 (78) 97 12/24/17 00:00 35 12/24/17 00:00 87 12/23/17 23:06 96 Ventilator 12/23/17 23:01 96 35 12/23/17 23:00 110 112/58 12/23/17 22:30 108 120/62 12/23/17 22:00 184 12/23/17 21:40 111 130/82 12/23/17 21:10 102 130/82 12/23/17 20:00 98.5 105 30 136/67 (90) 100 12/23/17 20:00 105 12/23/17 20:00 35 12/23/17 20:00 105 136/67 12/23/17 19:20 100 35 12/23/17 18:00 95 12/23/17 17:30 98.2 132 16 105/96 (99) 95 12/23/17 16:56 100 100 12/23/17 16:00 95 12/23/17 16:00 30 12/23/17 14:00 95 12/23/17 13:58 100 35 12/23/17 12:00 30 12/23/17 12:00 98.0 98 42 112/64 (80) 100 12/23/17 12:00 98 12/23/17 10:19 97 35 12/23/17 10:07 99 35 12/23/17 10:07 35 12/23/17 10:00 87 (Adeola Velez) -: 12/24/17 0528 12/24/17 0528 Tubes & Lines: Vas-Cath, Haynes (Adeola Velez) Physical Exam General Appearance: Obese Appearance Remarks Intubated (Adeola Velez) Eyes Eye Exam: Pupils Equal (Adeola Velez) Pulmonary Resp Exam: Breath Sounds Equal Resp Remarks Sub Q emphysema Intubated CT right chest wall (Adeola Velez) Cardiology CV Exam: Regular (Adeola Velez) Gastrointestinal/Abdomen GI Exam: Soft, Non-Tender, Distended (Adeola Velez) Genitourinary Exam: Flank Non-Tender (Adeola Velez) Integumentary Skin Exam: Clear, Warm (Adeola Velez) Extremeties Extremities Exam: Moderate Edema (Adeola Velez) Neurologic Neuro Exam: Awake (Adeloa Velez) Assessment/Plan Assessment Summary: DAVID/Acute Renal Failure Problem List: (1) DAVID (acute kidney injury) ICD Codes: N17.9 - Acute kidney failure, unspecified Plan: Acute kidney injury most likely related to acute tubular necrosis, either from the infection or related to his cardiac status and cardiac arrest. Creatinine is stable but minimal urinary output Continues on matilda matilda- synephrine for blood pressure support blood pressure improving Plan Continue for follow UOP and BMP Avoid nephrotoxins as possible. Mannitol and Albumin with HD. Hemodialysis yesterday with 3.7 liters removed. 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 (3) Thrombocytopenia ICD Codes: D69.6 - Thrombocytopenia, unspecified Plan: Hematology has been consulted and following (4) Anemia ICD Codes: D64.9 - Anemia, unspecified Plan: has received blood transfusion. (Adeola Velez) Problem List: (1) DAVID (acute kidney injury) ICD Codes: N17.9 - Acute kidney failure, unspecified Plan: Acute kidney injury most likely related to acute tubular necrosis, either from the infection or related to his cardiac status and cardiac arrest. Creatinine is stable but minimal urinary output Continues on matilda matilda- synephrine for blood pressure support blood pressure improving Plan Continue for follow UOP and BMP Avoid nephrotoxins as possible. Mannitol and Albumin with HD. Hemodialysis yesterday with 3.7 liters removed. Patient seen and examined, agree with above. Continue HD as needed. Weaning as per CCM. 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 (3) Thrombocytopenia ICD Codes: D69.6 - Thrombocytopenia, unspecified Plan: Hematology has been consulted and following (4) Anemia ICD Codes: D64.9 - Anemia, unspecified Plan: has received blood transfusion. (America Vela MD) Adeola Velez Dec 24, 2017 09:21 America Vela MD Dec 26, 2017 11:40
[2017-12-24] MEDS: AMIODARONE 200 MG TAB PO SCH ×2 (09:32→20:28)
[2017-12-24] MEDS: FAMOTIDINE 20 MG TAB PO SCH ×2 (09:32→20:28)
[2017-12-24] MEDS: CALCITRIOL 0.25 MCG CAP PO SCH (09:32)
[2017-12-24] MEDS: SODIUM CHLORIDE 0.9% FLUSH 10 ML FLUSH IV FLUSH SCH ×2 (09:32→20:28)
[2017-12-24] MEDS: INSULIN DETEMIR 100 UNITS/ML VIAL SQ SCH ×2 (09:33→20:43)
[2017-12-24] MEDS: HEPARIN SODIUM - SQ 10,000 UNITS/ML VIAL SQ SCH ×2 (09:33→21:48)
[2017-12-24] MEDS: DIGOXIN 0.125 MG TAB PO SCH (09:34)
[2017-12-24] MEDS: CHLORHEXIDINE 0.12% (ORAL KIT) 15 ML CUP MT SCH ×2 (09:35→20:56)
--- NOTE | 2017-12-24 12:28 | HHI.IDPN ---
Note Infectious Disease Note Patient has puffiness at the face. He underwent placement of a vas catheter yesterday. 4 L of fluid removed via dialysis yesterday. The right eye is shut by edema. He does not appear to be in any distress. at bedside. Afebrile. Sputum culture had multiple resistant Pseudomonas aeruginosa. Blood culture from 12/17 has no growth. Central line tip culture from 12/17 has no growth. Haynes catheter changed today. Urine culture from 12/08 and 12/16 had Nette. Previous urine culture on 11/28 had Nette glabrata. Patient was treated with Diflucan. Chest tube in place on the right due to pneumothorax. 77-year-old, white male who presents to the Emergency Department with shortness of breath. The patient has a history of COPD and CHF. He usually uses CPAP at the assisted living facility. He was noted to have been developing coughing and shortness of breath over the past couple of days, and his states that he was coughing a lot yesterday and bringing up mostly phlegm and that he was restless and could not sleep. Recent treatment at [facility] for pneumonia due to methicillin-resistant Staphylococcus aureus. PAST MEDICAL HISTORY: COPD, CHF, atrial fibrillation, insulin-dependent diabetes mellitus, hypertension, hyperlipidemia, gastroesophageal reflux, gastroparesis, iron deficiency anemia, oxygen-dependent. PAST SURGICAL HISTORY: Right knee surgery, right carpal tunnel release, cardiac ablation treatment 2002. ALLERGIES: ASPIRIN, CODEINE. MEDICATIONS: Current Medications Medications (Trade) Dose Ordered Sig/Yani Route PRN Reason Start Time Stop Time Status Last Admin Dose Admin Sodium Chloride (NS Flush) 2 ml UNSCH PRN IV FLUSH FLUSH AFTER USING IV ACCESS 11/14/17 15:45 11/17/17 14:05 Sodium Chloride (NS Flush) 2 ml BID IV FLUSH 11/14/17 21:00 12/24/17 09:32 Ondansetron HCl (Zofran Inj) 4 mg Q6H PRN IV PUSH NAUSEA OR VOMITING 11/14/17 15:45 11/18/17 16:03 Miscellaneous Information 1 Q361D XX 11/14/17 15:45 11/14/17 15:45 Chlorhexidine Gluconate (Chlorhexidine 2% Cloth) 3 pack Taper DAILY@04 TOP 11/15/17 04:00 11/11/18 03:59 12/24/17 03:59 Chlorhexidine Gluconate (Chlorhexidine 2% Cloth) 3 pack UNSCH PRN TOP HYGIENIC CARE 11/14/17 15:45 Senna/Docusate Sodium (Ricarda-Colace) 1 tab BID PO 11/14/17 21:00 12/22/17 09:12 Magnesium Hydroxide (Milk Of Magnesia Liq) 30 ml Q12H PRN PO Mild constipation 11/14/17 15:45 Sennosides (Senokot) 17.2 mg Q12H PRN PO Moderate constipation 11/14/17 15:45 Bisacodyl (Dulcolax Supp) 10 mg DAILY PRN RECTAL SEVERE CONSITIPATION 11/14/17 15:45 Lactulose (Lactulose Liq) 30 ml DAILY PRN PO SEVERE CONSITIPATION 11/14/17 15:45 Apixaban (Eliquis) 5 mg BID PO 11/14/17 21:00 Future Hold 11/27/17 20:17 Atorvastatin Calcium (Lipitor) 80 mg HS PO 11/14/17 21:00 Future Hold 12/05/17 19:49 Diltiazem HCl (Cardizem) 60 mg QID PO 11/14/17 18:00 Future Hold 12/06/17 08:44 Patient Own Medication PT OWN MED: Mometas... HS INH 11/14/17 21:00 Future Hold Hydralazine HCl (Apresoline Inj) 20 mg Q4H PRN IV PUSH SYS BP GREATER THAN 160 MMHG 11/17/17 12:00 11/22/17 07:38 Budesonide/ Formoterol Fumarate (Symbicort 160-4.5 Mcg Inh) 2 puff Q12HR INH 11/18/17 21:00 12/24/17 08:15 Chlorhexidine Gluconate (Peridex 0.12% Liq) 15 ml BID@08,20 MT 11/19/17 08:00 12/24/17 09:35 Albuterol/ Ipratropium (Duoneb Neb) 1 ampule Q2HR NEB PRN INH WHEEZING 11/18/17 22:30 12/24/17 08:15 Famotidine (Pepcid) 10 mg BID PO 11/22/17 21:00 12/24/17 09:32 Insulin Aspart (NovoLOG SUPPLEMENTAL SCALE) 1 Q4HR SQ 11/26/17 16:00 12/24/17 00:14 Dextrose (D50w (Vial) Inj) 25 ml UNSCH PRN IV HYPOGLYCEMIA-SEE COMMENTS 11/26/17 15:30 12/04/17 01:18 Glucagon (Glucagon Inj) 1 mg UNSCH PRN IM/SQ HYPOGLYCEMIA-SEE COMMENTS 11/26/17 15:30 Fentanyl Citrate 250 ml @ 5 mls/hr TITRATE PRN IV SEDATION 11/27/17 13:45 12/03/17 08:58 Metoprolol Tartrate (Lopressor Inj) 5 mg Q6H PRN IV PUSH heart rate greater than 135/mi 11/29/17 09:15 Sodium Chloride 1,000 ml @ 0 mls/hr Q0M PRN OTHER For Prime & Rinse Back 12/02/17 09:30 12/19/17 09:56 Heparin Sodium (Porcine) (Heparin Inj) 8,000 units UNSCH PRN IV FLUSH WITH DIALYSIS 12/02/17 09:30 Sodium Chloride 1,000 ml @ 200 mls/hr Q5H PRN IV WITH DIALYSIS 12/02/17 09:30 Sodium Chloride 1,000 ml @ 0 mls/hr Q0M PRN OTHER WITH DIALYSIS 12/02/17 09:30 Mannitol (Mannitol Inj) 12.5 gm UNSCH PRN IV WITH DIALYSIS 12/02/17 09:30 12/19/17 09:53 Albumin Human 100 ml @ 60 mls/hr UNSCH PRN IV WITH DIALYSIS 12/02/17 09:30 12/23/17 19:10 Sodium Chloride (NS Flush) 5 ml UNSCH PRN IV FLUSH WITH DIALYSIS 12/02/17 09:30 12/20/17 21:12 Heparin Sodium (Porcine) (Heparin Inj) UNSCH PRN .XX WITH DIALYSIS 12/02/17 09:30 12/23/17 18:27 Gentamicin Sulfate (Gentamicin Inj) 20 mg UNSCH PRN OTHER WITH DIALYSIS 12/02/17 09:30 12/23/17 18:27 Ondansetron HCl (Zofran Inj) 4 mg UNSCH PRN IV PUSH WITH DIALYSIS 12/02/17 09:30 Acetaminophen (Tylenol) 650 mg UNSCH PRN PO for headach, pain, temp > 101F 12/02/17 09:30 12/18/17 23:32 Diphenhydramine HCl (Benadryl) 25 mg UNSCH PRN PO for hives/itching/anaphylaxis 12/02/17 09:30 Nitroglycerin (Nitrostat Sl) 0.4 mg UNSCH PRN SL CHEST PAIN 12/02/17 09:30 Clonidine (Catapres) 0.1 mg UNSCH PRN PO for BP > 180/100 X 2 readings 12/02/17 09:30 Epoetin Kvng (Epogen Inj) 4,000 units UNSCH PRN IV PUSH WITH DIALYSIS 12/02/17 09:30 12/19/17 09:58 Gelatin (Gelfoam 12 Mm/7 Mm Top) 1 foam UNSCH PRN TOP SEE LABEL COMMENTS 12/02/17 09:30 Sodium Chloride (NS Flush) UNSCH PRN IV FLUSH SEE PROTOCOL 12/02/17 11:15 Heparin Sodium (Porcine) (Heparin Inj) UNSCH PRN IV FLUSH SEE PROTOCOL 12/02/17 11:15 Hydrocortisone Sodium Succinate (SoluCORTEF INJ) 50 mg Q12H IV PUSH 12/07/17 23:00 12/24/17 00:07 Insulin Detemir (Levemir Inj) 5 units Q12HR SQ 12/07/17 12:00 12/24/17 09:33 Lanthanum Carbonate (Fosrenol Chew) 500 mg TID CHEW 12/07/17 18:00 12/23/17 21:20 Calcitriol (Rocaltrol) 0.5 mcg DAILY PO 12/08/17 09:00 12/24/17 09:32 Metronidazole (Flagyl) 500 mg Q6HR PO 12/10/17 13:30 12/24/17 05:45 Phenylephrine HCl 160 mg/Dextrose 500 ml @ 7.5 mls/hr TITRATE PRN IV Blood pressure management 12/10/17 19:30 12/24/17 03:57 Amiodarone HCl 450 mg/Sodium Chloride 250 ml @ 33.33 mls/ hr Q7H31M PRN IV Per Protocol 12/13/17 12:30 12/14/17 23:52 Amiodarone HCl (Cordarone) 200 mg Q12HR PO 12/15/17 14:00 12/24/17 09:32 Morphine Sulfate (Morphine Inj) 1 mg Q4H PRN IV PUSH PAIN SCALE 1 TO 10 12/15/17 19:45 Heparin Sodium (Porcine) (Heparin Inj) 5,000 units Q12H SQ 12/17/17 10:00 Future hold 12/24/17 09:33 Digoxin (Lanoxin) 0.125 mg Q48H PO 12/22/17 09:00 12/24/17 09:34 Amiodarone HCl 450 mg/Sodium Chloride 250 ml @ 33.33 mls/ hr Q7H31M PRN IV Per Protocol 12/20/17 12:00 Norepinephrine Bitartrate 4 mg/ Sodium Chloride 250 ml @ 7.5 mls/hr TITRATE PRN IV Blood pressure management 12/20/17 12:00 Terbutaline Sulfate (Brethine Inj) 1 mg UNSCH PRN SQ For Extravasation 12/20/17 11:00 Tobramycin Sulfate (Timur Neb) 300 mg Q12HR NEB NEB 12/20/17 12:15 12/24/17 08:00 Alteplase, Recombinant (Cathflo Activase Inj) 2 mg Q2H PRN INTRACATH CLOGGED 12/22/17 10:30 Sodium Chloride (NS Flush) UNSCH PRN IV FLUSH SEE PROTOCOL 12/23/17 17:00 Heparin Sodium (Porcine) (Heparin Inj) UNSCH PRN IV FLUSH SEE PROTOCOL 12/23/17 17:00 OBJECTIVE: Vital Signs Date Time Temp Pulse Resp B/P (MAP) Pulse Ox O2 Delivery O2 Flow Rate FiO2 12/24/17 11:17 100 40 12/24/17 11:10 96 35 12/24/17 11:10 35 12/24/17 10:00 99 12/24/17 08:19 98 35 12/24/17 08:00 98 12/24/17 08:00 98.5 98 26 145/86 (105) 100 12/24/17 08:00 35 12/24/17 06:22 88 142/66 12/24/17 06:00 93 12/24/17 05:30 96 128/70 12/24/17 04:37 98 35 12/24/17 04:00 35 12/24/17 04:00 98.6 80 22 119/74 (89) 98 12/24/17 04:00 80 12/24/17 04:00 80 119/74 12/24/17 03:57 85 122/81 12/24/17 02:25 80 120/65 12/24/17 02:00 85 12/24/17 00:00 98.2 87 22 119/58 (78) 97 12/24/17 00:00 35 12/24/17 00:00 87 12/23/17 23:06 96 Ventilator 12/23/17 23:01 96 35 12/23/17 23:00 110 112/58 12/23/17 22:30 108 120/62 12/23/17 22:00 184 12/23/17 21:40 111 130/82 12/23/17 21:10 102 130/82 12/23/17 20:00 98.5 105 30 136/67 (90) 100 12/23/17 20:00 105 12/23/17 20:00 35 12/23/17 20:00 105 136/67 12/23/17 19:20 100 35 12/23/17 18:00 95 12/23/17 17:30 98.2 132 16 105/96 (99) 95 12/23/17 16:56 100 100 12/23/17 16:00 95 12/23/17 16:00 30 12/23/17 14:00 95 12/23/17 13:58 100 35 Laboratory Tests Test 12/23/17 06:00 12/24/17 05:28 White Blood Count 8.1 TH/MM3 6.8 TH/MM3 Red Blood Count 3.31 MIL/MM3 2.73 MIL/MM3 Hemoglobin 9.4 GM/DL 7.8 GM/DL Hematocrit 29.7 % 24.4 % Mean Corpuscular Volume 89.7 FL 89.2 FL Mean Corpuscular Hemoglobin 28.5 PG 28.4 PG Mean Corpuscular Hemoglobin Concent 31.8 % 31.8 % Red Cell Distribution Width 21.7 % 22.3 % Platelet Count 141 TH/MM3 145 TH/MM3 Mean Platelet Volume 10.1 FL 9.4 FL Neutrophils (%) (Auto) 81.9 % 79.9 % Lymphocytes (%) (Auto) 10.8 % 12.2 % Monocytes (%) (Auto) 7.0 % 7.5 % Eosinophils (%) (Auto) 0.0 % 0.0 % Basophils (%) (Auto) 0.3 % 0.4 % Neutrophils # (Auto) 6.6 TH/MM3 5.4 TH/MM3 Lymphocytes # (Auto) 0.9 TH/MM3 0.8 TH/MM3 Monocytes # (Auto) 0.6 TH/MM3 0.5 TH/MM3 Eosinophils # (Auto) 0.0 TH/MM3 0.0 TH/MM3 Basophils # (Auto) 0.0 TH/MM3 0.0 TH/MM3 CBC Comment AUTO DIFF AUTO DIFF Differential Total Cells Counted 100 100 Neutrophils % (Manual) 77 % 70 % Band Neutrophils % 7 % 16 % Lymphocytes % 4 % 9 % Monocytes % 10 % 4 % Neutrophils # (Manual) 7.0 TH/MM3 5.9 TH/MM3 Myelocytes 2 % Differential Comment FINAL DIFF MANUAL FINAL DIFF MANUAL Platelet Estimate LOW LOW Platelet Morphology Comment ENLARGED NORMAL Polychromasia 2.2 % 3.3 % Ovalocytes 1+ Metamyelocytes 1 % Stomatocytes 1+ Laboratory Tests Test 12/23/17 06:00 12/24/17 05:28 Blood Urea Nitrogen 101 MG/DL 66 MG/DL Creatinine 2.78 MG/DL 2.03 MG/DL Random Glucose 168 MG/DL 143 MG/DL Total Protein 4.8 GM/DL 5.7 GM/DL Albumin 2.8 GM/DL 4.0 GM/DL Calcium Level 8.0 MG/DL 7.7 MG/DL Phosphorus Level 1.9 MG/DL 2.3 MG/DL Magnesium Level 1.9 MG/DL 1.9 MG/DL Alkaline Phosphatase 266 U/L 198 U/L Aspartate Amino Transf (AST/SGOT) 19 U/L 18 U/L Alanine Aminotransferase (ALT/SGPT) 17 U/L 16 U/L Total Bilirubin 0.6 MG/DL 0.8 MG/DL Sodium Level 133 MEQ/L 139 MEQ/L Potassium Level 4.0 MEQ/L 3.6 MEQ/L Chloride Level 95 MEQ/L 98 MEQ/L Carbon Dioxide Level 23.2 MEQ/L 26.0 MEQ/L Anion Gap 15 MEQ/L 15 MEQ/L Estimat Glomerular Filtration Rate 22 ML/MIN 32 ML/MIN Imaging: Chest X-Ray 12/24/17 0600 Signed Impressions: Service Date/Time: Sunday, December 24, 2017 04:21 - CONCLUSION: 1. Stable right lateral pneumothorax measuring 9 mm. 2. Probable left pleural effusion. Stable patchy infiltrates at the left lung base. Shaq Eisenberg MD Chest X-Ray 12/23/17 0600 Signed Impressions: Service Date/Time: November 04:04 - CONCLUSION: 1. Right- sided chest tube without pneumothorax. 2. Left basilar density, unchanged. Nikunj Oneil MD Chest X-Ray 12/23/17 0000 Signed Impressions: Service Date/Time: November 17:53 - CONCLUSION: 1. Small loculated pneumothorax superolaterally on the right unchanged. Right chest tube remains in place. 2. Right subclavian and internal jugular catheters are present. I believe the right IJ line has been changed out since this morning. 3. Left base consolidation slightly worse. Abdiel Vidales MD Catheter Placement X-Ray 12/23/17 0000 Signed Impressions: Service Date/Time: November 16:21 - CONCLUSION: Uncomplicated line exchange as above. 15 cm catheter was exchanged for a 24 cm catheter. Omid Traore MD Chest X-Ray 12/22/17 06 Signed Impressions: Service Date/Time: Friday, December 22, 2017 04:38 - CONCLUSION: 1. Right chest tube with tiny right pneumothorax. Right central lines remain unchanged. Slight improvement in left basilar airspace disease with small effusions. Tera Gibson MD Chest X-Ray 12/18/17 0600 Signed Impressions: Service Date/Time: Monday, December 18, 2017 04:26 - CONCLUSION: 1. Unchanged left basilar consolidation. 2. No discernible pneumothorax on the current study. Shaq Freire Jr., MD PHYSICAL EXAMINATION: GENERAL: Awake and alert. No acute distress. HEENT: Subcutaneous emphysema at the face. Right eyelid shut by edema. No icterus. Moist mucosa. NECK: Subcutaneous edema, no adenopathy. LUNGS: Decreased breath sounds. No audible wheezing HEART: Irregular S1 and S2. No murmurs, rubs or gallops. ABDOMEN: Bowel sounds present, obese, soft. Non tender. EXTREMITIES: 1+ diffuse edema. 2+ edema of the feet. Cyanosis at the tips of the toes. The feet are warm. SKIN: No diffuse rash. NEUROLOGIC: Nonfocal. Follows commands. PSYCHIATRIC: Unable to fully assess IMPRESSION: 1. New fever. Cultures negative. Temperature resolved. 2. Sepsis. 3. Pneumonia - Pseudomonas MDR. Latest sputum culture - Pseudomonas. Could be colonization. However with his seriously ill clinical condition he may have ongoing pneumonia. 4. Acute respiratory failure. Vent dependent. Extubated previously and appears to have aspirated. 5. Leukocytosis. White blood cell count decreasing. 6. Nette glabrata UTI. Persistent despite management with Diflucan. Repeat urine still positive Last urine culture on 12/14 and 12/16 had Nette glabrata, this could be due to colonization. 6. Right-sided pneumothorax. Subcutaneous emphysema. 7. History of chronic obstructive pulmonary disease and recent chronic obstructive pulmonary disease exacerbation. 8. Renal failure. Receiving hemodialysis. 9. Elevated liver function tests. LFTs down to normal. RECOMMENDATIONS: 1. Continue aerosol tobramycin. 2. Continue metronidazole. 3. Obtain repeat sputum culture. 4. Monitor clinical progress. 5. Follow the temperature and white blood cell count. Discussed with patient's at bedside. Tom Long MD Dec 24, 2017 12:28
[2017-12-24] MEDS: LANTHANUM CARBONATE 500 MG CHEWABLE TABLET CHEW SCH ×2 (12:41→18:51)
--- NOTE | 2017-12-24 14:37 | HHI.CCPN ---
Subjective Remarks/Hospital Course This is a 77-year-old male with a medical history significant for COPD, CHF, A. fib, diabetes, that presented to emergency department from [facility] for evaluation of worsening shortness of breath over the last 3 days. The patient was been given Solu-Medrol 125 mg and 2 albuterol treatments enroute to ED. Upon presentation to the ED the patient was on a nonrebreather. He was tachypneic and tachycardic. Patient's medical history significant for MRSA pneumonia previously admitted on 10/27/16 for approximately 12 days at [facility]. The patient is normally on 2.5 L/m nasal cannula O2 home dependency, and he lives with ( normally) a PCO2 in the 80s according to his . Patient was then discharged to [facility], and then transferred to [facility] for rehabilitation. He has been on an unknown antibiotic per the family and steroids for the last 3 days. Laboratory and imaging studies were performed with noted elevation in CO2 The patient was given empiric antibiotics in the ED and placed on BiPAP. Critical care medicine was consulted. Subjective: 11/15: Patient maintained on BiPAP throughout the night O2 saturations 97-98% on FiO2 of 0.40. Hemodynamically stable. Attempts made to wean patient to nasal cannula this a.m. unsuccessful, patient's O2 saturation in the 70s, patient placed back on BiPAP. Chest x-ray pending WBC count significantly diminished, leukocytosis resolved. Patient extremely anxious, Precedex infusion initiated. 11/16: Late entry note. Patient seen 10 AM. Overnight the patient converted to A. fib RVR, despite being on Cardizem 4 times a day and metoprolol twice a day- home medications, the patient received IV Cardizem followed by amiodarone infusion. Per report the patient became hypotensive, Cardizem discontinued. Amiodarone continued. Early this a.m. patient was resting comfortably A. fib rate controlled rate. The patient suddenly converted to A. fib RVR heart rate 150s-160s, acute hypoxemic respiratory failure, requiring intubation. The patient was intubated uneventfully and continues on amiodarone at 0.5 mg/hour, rate now controlled in conjunction with sedation. Cardiology consulted, his technology project manager is Dr. Reyes X-ray revealed lung consolidation improved, chest x- ray clear. Plan for CPAP trials in a.m.. 11/17: No acute events overnight. Patient had 1 short 8 beat run of V. tach last evening was self resolution, electrolytes within normal limits. The patient continues on amiodarone 0.5 mg/hr. CPAP trials initiated this a.m.. Tube feeds initiated at trickle feeds. Patient converted to sinus rhythm at 2 AM. 11/18 Patient remains sedated and intubated. Afebrile. 11/19 Patient was extubated yesterday however last night he was noted to choke on water provided by the family. Stat ABG demonstrated acute hypercapnic respiratory failure and was emergently intubated. Currently sedated and intubated. 11/20 Patient remains intubated on Fentanyl drip however he si awake and alert. Afebrile. 11/21 Patient is awake and alert placed on CPAP with PS:15, PEEP:5. Afebrile. 11/22 Patient remains intubated , did not tolerate CPAP trials yesterday as he became tachycardic and hypertensive. On no sedation awake and alert. 11/23 No events overnight, off sedation. 11/24: Resting comfortably on mechanical ventilation currently. Daily C Pap trials ongoing. 11/25: Sedated with Precedex, orally intubated on mechanical ventilation. Daily C Pap trials 11/26: Sedated with Precedex, orally intubated on mechanical ventilation. Got tachypneic with CPAP trial today hence placed back on PRVC. Spiked a fever, garcia cultures ordered. Went into A. fib with RVR subsequently for which being initiated on amiodarone bolus followed by drip and Lopressor 5 mg IV every 6 as needed for 11/27: This morning patient developed bradycardia followed by asystole for which she had 3 minutes CPR with ACLS protocol with return of spontaneous circulation. Post code chest x-ray revealed moderate to large right pneumothorax for which a right pigtail catheter was placed by me however despite airleak patient continue have moderate to large pneumothorax hence a second right sided 28 [place]er chest tube was placed to -40 cm water pressure. Air leaks 1+ in both pigtail catheter and chest tube. Patient remains in a flutter currently. Dr. reyes evaluated patient as well following cardiac arrest. 11/28: Sedated, arousable, orally intubated on mechanical ventilation. Worsening renal function noted. MDR Pseudomonas in sputum. Right sided chest tube/ pigtail catheter with 1+ air leak in both. Subcutaneous emphysema noted over right side of face neck and right upper extremity. On 50% FiO2, PEEP +5. Poor urine output for which 500 cc and is bolus given earlier. Treated for hyperkalemia with Kayexalate PO, glucose insulin, calcium IV. 4/2: Remains sedated, arousable, orally intubated on mechanical ventilation. A. fib with RVR this morning for which she was loaded with amiodarone and initiated on amiodarone drip. Spiking fever 103.5. ID adjusting antibiotics. Stool for C. difficile ordered as he had some diarrhea today though received Kayexalate yesterday for hyperkalemia. Pigtail catheter on the right side appeared to be dislodged hence this was removed. 28 [place]er chest tube in right pleural cavity repositioned. 11/30: Late entry note , patient seen at 12 noon. Creatinine continues to trend upward.Sedated but easily arousable. 12/01: Patient lightly sedated, following commands this a.m.. Creatinine noted increased, possible dialysis consideration for tomorrow. Patient to be diuresed today. CPAP trial initiated failed after 5 minutes, repeat this afternoon. 12/02: Patient placed on Lasix infusion throughout the night . No renal improvement,creatinine worsened today , plan for Vas-Cath placement and IHD today. This extensive discussion with patient and plans for tracheostomy and PEG tube placement secondary to failure to wean. 12/03: Late entry note, patient seen at 11 am. Patient scheduled for PEG placement today by Dr. Iglesias. Patient continues to fail CPAP trials. Plan for tracheostomy in the near future 12/04: Late entry note . Patient seen earlier this am. Overnight the patient became hypoglycemic, secondary to n.p.o. status, post PEG placement. D10 was initiated at 30 cc/hr. Tube feeds reinitiated Jevity 1.5, 24 hours post PEG tube placed, D10 discontinued. Patient remains on fentanyl at 100 mics/hour, lightly sedated. Patient denies pain answering by nodding head to yes and no questions. Tracheostomy planned for Wednesday12/06/[address] Calderon. 12/05: Remains intubated sedated with 50 mcg of fentanyl. On attempted CPAP trial patient remained dyspneic. Significant neuromuscular weakness persist. Chest x-ray shows small right apical pneumothorax. Tentatively plan for tracheostomy tomorrow. Dr. Calderon has already been consulted 12/06 Patient remains intubated for possible trach today. On Levophed 12 mics. Afebrile. 12/07 No events overnight. Trach was placed on hold yesterday as patient was on Levophed. He is down to 5 mics today. Afebrile. 12/08 Patient remains intubated on no sedation. CT brain this morning showed no acute process. Off Levophed. 12/09 Patient was placed back on Levophed 6 mics. Afebrile. Remains intubated on no sedation. 12/10 Patient remains intubated. On Neosyn 40 mics went into Afib with RVR HR 128 12/11 Patient remains intubated. Now on Neosyn 200 mics ( MAP 86mmHg). s/p HD yesterday with 1.5L removed. T:99.7 12/12 Patient remains sedated and intubated. Neosyn down 100 mics. For transfusion 2u PRBC and 1u PLT ( Hgb 6.7 and PLT 18 this morning) s/p HD with 3L removed yesterday. WBC is trending down. 12/13: More critically ill today, Bertin-Synephrine had to be increased to 150 mcg/ min, remains borderline hypotensive despite Bertin-Synephrine, currently in A. fib with RVR. Digoxin additional 0.25 mg IV push 1, start amiodarone infusion 12/14: Patient remains patient remains intubated currently on 50 mcg/min of Bertin- Synephrine. Remains on amiodarone infusion with heart rate better controlled 110-120. Plan for perc trach at bedside today 12/15: Remains on Bertin-Synephrine 50 mcg/min. On attempted CPAP patient had multiple PVCs and PACs. Potassium 2.7 getting replaced. Argatroban will be restarted 12/16: Patient is more lethargic, profoundly hypotensive Bertin-Synephrine increase to 300 mcg/min. Possibly septic shock. Currently on micafungin backside Levaquin and Flagyl. Add gram-positive coverage with vancomycin send blood cultures. Also will also change central line today-cleared by Dr. Vela to use subclavian access 12/17: Hypertensive encephalopathic Bertin-Synephrine at 100 mcg/min. new right subclavian central line placed left IJ will be sent for culture. Currently in A. fib with RVR heart rate varying from 110s-130. If persistent will give 2.5 metoprolol. AUGUSTA negative and argatroban discontinued. Start heparin subcu for DVT prophylaxis 12/18: Patient remains critically currently on 140 mcg/min of Bertin-Synephrine. Tachypneic with agonal appearing breathing on CPAP trial. Chest x-ray remains unchanged. Platelet count is 54 today, will hold subcu heparin. 12/19: Afebrile. Patient failed CPAP trials today. Patient underwent dialysis 3 L off today. Patient continues on vasopressor support with phenylephrine. Labs pending. Placed right chest tube to waterseal. 12/20: Continues to be critical currently on 200 mcg/min of Xsd-Bokkzppwmi-ckaox is increased from yesterday, remains hypotensive. Atrial fibrillation with RVR persist. Will restart IV amiodarone in an attempt to cardiovert due to hypotension. However I do not believe his hypotension is due to A. fib with RVR , hypotension is mostly from sepsis. There is no indication for DC cardioversion. New sputum culture shows Pseudomonas intermediately sensitive to Levaquin. Continue Zerbaxa and vanc, and micafungin per ID. DC Levaquin and metronidazole if okay with ID 12/21: No events over the night. Patient continues to require phenylephrine infusion, currently at 120 mcg/minute. Patient is awake, following some commands. T-max of 99.7. Minimal urine output. Right-sided chest tube to waterseal. 12/22: No events over the night. Patient on pressure support of 18 with good tidal volumes but low respiratory rate. He is awake, weak, tracking. present at bedside. Right-sided chest tube to waterseal. Small residual right pneumothorax on chest x-ray. 12/23: No events over the night. T-max of 98.8. Slight increase in subcutaneous emphysema over the right side. On morning chest x-ray pneumothorax , chest tube placed back on suction. 12/24: No events over the night. Subcutaneous emphysema improving. Morning chest x-ray still shows a very small residual right-sided pneumothorax. Right- sided chest tube on suction with small air leak. Patient is awake, tracking. present at bedside. Objective Vital Signs Date Time Temp Pulse Resp B/P (MAP) Pulse Ox O2 Delivery O2 Flow Rate FiO2 12/24/17 11:17 100 40 12/24/17 10:00 99 12/24/17 08:00 98.5 26 145/86 (105) 12/23/17 23:06 Ventilator Intake and Output 12/24/17 12/24/17 12/24/17 07:59 15:59 23:59 Intake Total 882 ml Output Total 115 ml Balance 767 ml Result Diagram: 12/24/17 0528 12/24/17 0528 Other Results Laboratory Tests Test 12/23/17 14:47 12/24/17 05:28 Blood Gas Puncture Site CENTRAL LINE CENTRAL LINE Blood Gas Patient Temperature 98.6 98.6 Venous Blood pH 7.30 (7.360-7.400) 7.34 (7.360-7.400) Venous Blood Partial Pressure CO2 49 mmHg (44-48) 51 mmHg (44-48) Venous Blood Partial Pressure O2 35 mmHg (35-40) 35 mmHg (35-40) Venous Blood HCO3 23 mmol/L (22-26) 27 mmol/L (22-26) Venous Blood Oxygen Saturation 60 % (70-76) 61 % (70-76) Venous Blood Oxygen Content 8.0 Vol % (9.0-17.0) 6.8 Vol % (9.0-17.0) Venous Blood Base Excess -2.4 mmol/L (-2-2) 1.8 mmol/L (-2-2) Oxygen Delivery Device VENTILATOR VENTILATOR Blood Gas Ventilator Setting SEE COMMENTS PRVC/ AC Blood Gas Inspired Oxygen 35 % 35 % Imaging Last 24 hours Impressions Chest X-Ray 12/23/17 06 Signed Impressions: Service Date/Time: November 04:04 - CONCLUSION: 1. Right- sided chest tube without pneumothorax. 2. Left basilar density, unchanged. Nikunj Oneil MD Last 24 hours Impressions Chest X-Ray 12/22/17 06 Signed Impressions: Service Date/Time: Friday, December 22, 2017 04:38 - CONCLUSION: 1. Right chest tube with tiny right pneumothorax. Right central lines remain unchanged. Slight improvement in left basilar airspace disease with small effusions. Tera Gibson MD Last Impressions Chest X-Ray 12/11/17 0000 Signed Impressions: Service Date/Time: Monday, December 11, 2017 10:51 - CONCLUSION: Stable chest with moderate subcutaneous emphysema and no pneumothorax. Torin Dennison MD FACR Liver Ultrasound 12/09/17 0000 Signed Impressions: Service Date/Time: November 19:18 - CONCLUSION: 1. Limited suboptimal examination with only a small portion of the liver visualized. 2. The gallbladder and common bile duct could not be visualized. The pancreas is not evaluated. 3. Left pleural effusion. Liang Jimenez MD Head CT 12/08/17 0000 Signed Impressions: Service Date/Time: Friday, December 08, 2017 08:25 - CONCLUSION: Negative for acute process. Torin Dennison MD FACR Catheter Placement X-Ray 12/02/17 0000 Signed Impressions: Service Date/Time: November 10:47 - CONCLUSION: Uncomplicated right internal jugular Vas-Cath placement as above. incidental note is made of subcutaneous emphysema within the chest wall and neck Con Dennison MD Lower Extremity Ultrasound 11/29/17 0000 Signed Impressions: Service Date/Time: Wednesday, November 29, 2017 22:02 - CONCLUSION: Normal examination. Abdiel Mcintyre MD Renal Ultrasound 11/28/17 0000 Signed Impressions: Service Date/Time: Tuesday, November 28, 2017 20:30 - CONCLUSION: Nondiagnostic exam. Rashad Bose MD Objective Remarks General - elderly gentleman, trached, on ventilator, weak, ill-appearing HEENT - pupils equal, reactive, sclerae anicteric, neck supple, unable to appreciate JVD, trach in place, RIJ HD catheter - site is clean CV - irregular S1 and S2, no murmurs Chest - still with decreased air entry at bases b/l, scattered coarse breath sounds, no wheezes, right-sided chest tube on suction Abdomen - soft, non-tender, slightly distended, BS present, PEG tube in place Skin - peripheral cyanosis over bilateral toes, unchanged; crepitus on palpation over the upper chest and neck, improved compared to yesterday Extremities - warm, 3+ pitting edema, + peripheral pulses Neuro - awake, weak, tracking, not consistently following commands A/P Problem List: (1) A-fib ICD Code: I48.91 - Unspecified atrial fibrillation (2) CHF (congestive heart failure) ICD Code: I50.9 - Heart failure, unspecified Status: Chronic (3) HTN (hypertension) ICD Code: I10 - Essential (primary) hypertension Status: Chronic (4) ADRIAN (obstructive sleep apnea) ICD Code: G47.33 - Obstructive sleep apnea (adult) (pediatric) Status: Chronic (5) MRSA pneumonia ICD Code: J15.212 - Pneumonia due to Methicillin resistant Staphylococcus aureus Status: Acute (6) Diabetes mellitus type 2, insulin dependent ICD Code: E11.9 - Type 2 diabetes mellitus without complications; Z79.4 - intermodal customer service (current) use of insulin Status: Chronic (7) COPD (chronic obstructive pulmonary disease) ICD Code: J44.9 - Chronic obstructive pulmonary disease, unspecified Status: Acute (8) Respiratory distress ICD Code: R06.03 - Acute respiratory distress Status: Acute (9) Leukocytosis ICD Code: D72.829 - Elevated white blood cell count, unspecified Status: Acute (10) Lung consolidation ICD Code: J18.1 - Lobar pneumonia, unspecified organism Status: Acute (11) Anxiety ICD Code: F41.9 - Anxiety disorder, unspecified Status: Chronic (12) Failure to wean from mechanical ventilation ICD Code: Z99.11 - Dependence on respirator [ventilator] status Assessment and Plan Neurologic: Encephalopathy, metabolic -unchanged Anxiety Neuro checks per ICU protocol EEG: Mild- mod encephalopathy. Neuro- Dr. Anne. CT brain 12/08 no acute process Respiratory: Acute respiratory failure on mechanical ventilation- extubated and reintubated night of 11/18 after he was noted to choke on water provided by family COPD exacerbation -resolved Pneumonia-MRSA, MDR Pseudomonas Right sided pneumothorax following CPR status post pigtail catheter/chest tube placement 11/27 Obstructive sleep apnea Home O2 dependency Continue with vent support keep sats >90%. s/p Trach 12/14/17 Continue PRVC at the current vent settings. Morning blood gas reviewed. Patient remains synchronized with the vent without auto PEEP, PIP of 20 Daily CPAP trials as tolerated Bronchodilators Pulmonology - Dr Price Right sided chest tube placed on suction Daily chest x-ray Cardiovascular: Shock most likely septic -continues to require phenylephrine infusion Cardiac arrest - asystole, status post CPR 11/27 A. fib RVR History of CHF CAD Peripheral cyanosis/early gangrene of the toes Continue phenylephrine to keep map above 65 IV digoxin 0.25 mg 1 12/13, continue QOD digoxin Hydrocortisone 50mg IV Q12, continue while critically ill and hypotensive. Start taper when off pressors Atorvastatin 80 daily on hold for elevated LFT's Cardiology - Dr. Reyes. Echo showed EF 65-70% Renal: DAVID Monitor renal function, electrolytes replacement as needed Nephrology Dr. Ragland. 12/02 Vas-Cath placed for initiation of IHD HD per nephrology, yesterday removed more than 3.5 L FEN/GI: Elevated LFT's GERD Monitor LFT's, US liver on 12/06: non diagnostic study US liver 12/09 limited study. Hepatitis profile is negative On tube feeds On Nepro @40cc/hr. Pepcid for GI prophylaxis 12/03 PEG tube placement ID: Pneumonia MRSA, MDR Pseudomonas Leukocytosis Septic shock Continue antibiotics per ID Stool for C. difficile negative on 11/29 and 12/06 Pertinent cultures 12/14 Urine yeast 12/09 BC: NGTD 12/08 Urine cx: C. Glabrata 12/06, 12/16 Sputum cx: Pseudomonas MDR 11/16 sputum cultures- Kleb pneumonia 11/26 sputum cultures growing multidrug resistant Pseudomonas/MRSA 11/28 urine culture growing yeast 11/26 blood culture neg Heme Thrombocytopenia HIT antibody positive AUGUSTA negative. Argatroban discontinued by Dr. Quintana. Endocrine: Glucose monitoring per ICU protocol -- SSI(high scale) Levemir 5u Q12 Msk: Polyneuropathy of Critical Illness Continue PT, OT Prophylaxis: GI Prophylaxis Famotidine BID -- SCDs Holding home dose Eliquis 5 mg BID on 11/27 in view of thrombocytopenia and renal failure Argatroban discontinued HIT AUGUSTA negative Started heparin subcu every 12 hours 12/17/2017, hold due to platelet count being 53, restarted on 12/20 Lines: Left IJ central line placed 11/29-DCd 12/17. New Left central line subclavian placed 12/16/17 Right IJ vascath 12/23 Palliative care is following Patient remains critically ill requiring mechanical ventilation and vasopressors and he is at very high risk for further decompensation and . Discussed with present at bedside. Problem Qualifiers (1) COPD (chronic obstructive pulmonary disease): Qualified Codes: J44.9 - Chronic obstructive pulmonary disease, unspecified (2) Leukocytosis: Qualified Codes: D72.829 - Elevated white blood cell count, unspecified Nick Green MD Dec 24, 2017 14:37
--- NOTE | 2017-12-24 15:53 | HHI.HCPN ---
Reason for visit a. To assist with evaluation and management of symptoms including: Dyspnea, edema, encephalopathy b. To assist medical decision maker(s) with: better understanding of current medical conditions; weighing benefits/burdens of medical treatment options; making medical treatment decisions. Subjective/Interval History Patient seen to follow-up on symptoms of dyspnea, edema and encephalopathy. Patient is awake on vent today. He is undergoing spontaneous breathing trial at the time of my assessment. Trial started at 11: 10 and lasted until 14: 35, stopped due to tachypnea. Chest x-ray today showed stable right lateral pneumothorax measuring 9 mm, left pleural effusion and stable patchy infiltrates at the left lung base. Chest tube was on waterseal and has now been placed back to -40 suction. No air leak is seen. Oxygen required is 35-40 %. He has profound weakness is complicating his respiratory recovery. Sputum specimen showed multidrug-resistant pseudomonas aeruginosa and a mold species. He is receiving Flagyl and tobramycin sulfate nebulized. Encephalopathy appears to be improving slightly. Patient is able to interact slightly with his and has one eye open. The right eye is swollen shut with significant edema since placement of a right IJ Vas-Cath yesterday. He does not move to command and does not interact with the examiner. No agitation. Minimal patient movement. Patient has had a significant increase in the amount of edema seen particularly in the face. Right eye is swollen shut and patient has edema in both cheeks and neck, left greater than right. He continues to have 2+ pitting edema in bilateral lower extremities, hands and arms. He has minimal urine output with 0 mL yesterday and 5 recorded for 2 days total. He is receiving hemodialysis and they were able to remove 3700 mL yesterday. He is not receiving diuretics as they were not effective for him previously given. . Family/friend interactions at bedside who remains very optimistic and positive. Although his urine output is minimal, she is pleased that the color of the urine is pct and finds this a positive sign. She aware that [facility] has been consulted to evaluate patient for transfer for vent weaning, however due to the need for continued vasopressor, he is unstable for transfer at this time. He remains on 60 mcg of Bertin-Synephrine for blood pressure support, decreased from prior visit when he was receiving 200 mcg of Bertin-Synephrine and once weaned from that would be able to be transferred if accepted. . Advance Directives Living Will: Never completed Health Care Surrogate: Never completed Durable Power of Public Works Commissioner: Never completed Advance Directive Specifics Health Care Surrogate(s): Never completed. is healthcare proxy supported by son who would be the next tier hierarchy of [place] statutes. . Documented care wishes: No living will completed. Significant change in goals: No significant change in goals. The remains extremely optimistic. . Objective Vital Signs Date Time Temp Pulse Resp B/P (MAP) Pulse Ox O2 Delivery O2 Flow Rate FiO2 12/24/17 11:17 100 40 12/24/17 11:10 96 35 12/24/17 11:10 35 12/24/17 10:00 99 12/24/17 08:19 98 35 12/24/17 08:00 98 12/24/17 08:00 98.5 98 26 145/86 (105) 100 12/24/17 08:00 35 12/24/17 06:22 88 142/66 12/24/17 06:00 93 12/24/17 05:30 96 128/70 12/24/17 04:37 98 35 12/24/17 04:00 35 12/24/17 04:00 98.6 80 22 119/74 (89) 98 12/24/17 04:00 80 12/24/17 04:00 80 119/74 12/24/17 03:57 85 122/81 12/24/17 02:25 80 120/65 12/24/17 02:00 85 12/24/17 00:00 98.2 87 22 119/58 (78) 97 12/24/17 00:00 35 12/24/17 00:00 87 12/23/17 23:06 96 Ventilator 12/23/17 23:01 96 35 12/23/17 23:00 110 112/58 12/23/17 22:30 108 120/62 12/23/17 22:00 184 12/23/17 21:40 111 130/82 12/23/17 21:10 102 130/82 12/23/17 20:00 98.5 105 30 136/67 (90) 100 12/23/17 20:00 105 12/23/17 20:00 35 12/23/17 20:00 105 136/67 12/23/17 19:20 100 35 12/23/17 18:00 95 12/23/17 17:30 98.2 132 16 105/96 (99) 95 12/23/17 16:56 100 100 12/23/17 16:00 95 12/23/17 16:00 30 Intake & Output 12/24/17 12/24/17 07:00 19:00 Intake Total 882 ml Output Total 3815 ml Balance -2933 ml IV Total 500 ml Tube Feeding 322 ml Other 60 ml Output Urine Total 5 ml Chest Tube Drainage Total 110 ml Hemodialysis 3700 ml # Bowel Movements 1 Physical Exam CONSTITUTIONAL/GENERAL: This is an adequately nourished patient, in no apparent distress. TUBES/LINES/DRAINS: Tracheostomy tube, right subclavian, right IJ Vas-Cath, Haynes, PEG SKIN: Multiple areas of ecchymosis with blistering and weeping edema on lower extremities on bilateral lower extremity from ruptured denuded blisters. HEAD: Atraumatic. Normocephalic. EYES: Right eye swollen shut, left eye open pupils reactive, extraocular movements intact CARDIOVASCULAR: Irregular rhythm, tachycardic rate, no rub murmur or gallop. No JVD. RESPIRATORY/CHEST: Mechanically ventilated, symmetric chest rise with decreased air entry, scattered wheezes, extensive crepitus chest tube with no air leak air leak, to -40 suction GASTROINTESTINAL: Abdomen soft, nondistended, obese. Bowel sounds hypoactive. PEG intact, slight clean without erythema or drainage. GENITOURINARY: Without palpable bladder distension. Haynes catheter in place with minimal yellow output. MUSCULOSKELETAL: Extremities with diffuse mottling. 2+ dependent, weeping edema. NEUROLOGICAL: Tracheostomy, unsedated, not following commands. PSYCHIATRIC: Flat affect, no agitation. . Diagnostic Tests Laboratory A Laboratory Tests Test 12/21/17 16:27 12/22/17 05:00 12/23/17 05:57 12/23/17 06:00 White Blood Count 8.7 TH/MM3 (4.0-11.0) 8.2 TH/MM3 (4.0-11.0) 8.1 TH/MM3 (4.0-11.0) Red Blood Count 3.34 MIL/MM3 (4.50-5.90) 3.13 MIL/MM3 (4.50-5.90) 3.31 MIL/MM3 (4.50-5.90) Hemoglobin 9.4 GM/DL (13.0-17.0) 9.1 GM/DL (13.0-17.0) 9.4 GM/DL (13.0-17.0) Hematocrit 29.7 % (39.0-51.0) 28.0 % (39.0-51.0) 29.7 % (39.0-51.0) Mean Corpuscular Volume 88.8 FL (80.0-100.0) 89.5 FL (80.0-100.0) 89.7 FL (80.0-100.0) Mean Corpuscular Hemoglobin 28.1 PG (27.0-34.0) 29.1 PG (27.0-34.0) 28.5 PG (27.0-34.0) Mean Corpuscular Hemoglobin Concent 31.6 % (32.0-36.0) 32.5 % (32.0-36.0) 31.8 % (32.0-36.0) Red Cell Distribution Width 19.6 % (11.6-17.2) 20.2 % (11.6-17.2) 21.7 % (11.6-17.2) Platelet Count 74 TH/MM3 (150-450) 81 TH/MM3 (150-450) 141 TH/MM3 (150-450) Mean Platelet Volume 11.0 FL (7.0-11.0) 10.2 FL (7.0-11.0) 10.1 FL (7.0-11.0) Neutrophils (%) (Auto) 73.2 % (16.0-70.0) 76.1 % (16.0-70.0) 81.9 % (16.0-70.0) Lymphocytes (%) (Auto) 19.4 % (9.0-44.0) 15.7 % (9.0-44.0) 10.8 % (9.0-44.0) Monocytes (%) (Auto) 6.8 % (0.0-8.0) 7.8 % (0.0-8.0) 7.0 % (0.0-8.0) Eosinophils (%) (Auto) 0.3 % (0.0-4.0) 0.1 % (0.0-4.0) 0.0 % (0.0-4.0) Basophils (%) (Auto) 0.3 % (0.0-2.0) 0.3 % (0.0-2.0) 0.3 % (0.0-2.0) Neutrophils # (Auto) 6.4 TH/MM3 (1.8-7.7) 6.2 TH/MM3 (1.8-7.7) 6.6 TH/MM3 (1.8-7.7) Lymphocytes # (Auto) 1.7 TH/MM3 (1.0-4.8) 1.3 TH/MM3 (1.0-4.8) 0.9 TH/MM3 (1.0-4.8) Monocytes # (Auto) 0.6 TH/MM3 (0-0.9) 0.6 TH/MM3 (0-0.9) 0.6 TH/MM3 (0-0.9) Eosinophils # (Auto) 0.0 TH/MM3 (0-0.4) 0.0 TH/MM3 (0-0.4) 0.0 TH/MM3 (0-0.4) Basophils # (Auto) 0.0 TH/MM3 (0-0.2) 0.0 TH/MM3 (0-0.2) 0.0 TH/MM3 (0-0.2) CBC Comment AUTO DIFF AUTO DIFF AUTO DIFF Differential Total Cells Counted 100 100 100 Neutrophils % (Manual) 76 % (16-70) 67 % (16-70) 77 % (16-70) Band Neutrophils % 6 % (0-6) 16 % (0-6) 7 % (0-6) Lymphocytes % 15 % (9-44) 12 % (9-44) 4 % (9-44) Monocytes % 1 % (0-8) 3 % (0-8) 10 % (0-8) Neutrophils # (Manual) 7.3 TH/MM3 (1.8-7.7) 6.9 TH/MM3 (1.8-7.7) 7.0 TH/MM3 (1.8-7.7) Metamyelocytes 1 % (0-1) Myelocytes 1 % (0-0) 1 % (0-0) 2 % (0-0) Nucleated Red Blood Cells 1 /100 WBC (0-0) Differential Comment FINAL DIFF MANUAL FINAL DIFF MANUAL FINAL DIFF MANUAL Toxic Granulation 3+ (NORMAL) Platelet Estimate LOW (NORMAL) LOW (NORMAL) LOW (NORMAL) Platelet Morphology Comment NORMAL (NORMAL) NORMAL (NORMAL) ENLARGED (NORMAL) Basophilic Stippling FAINT (NORMAL) Spherocytes 1+ (NORMAL) Ovalocytes (NORMAL) 1+ (NORMAL) Stomatocytes 1+ (NORMAL) 2+ (NORMAL) Acanthocytes OCC (NORMAL) Blood Urea Nitrogen 78 MG/DL (7-18) 88 MG/DL (7-18) 101 MG/DL (7-18) Creatinine 2.28 MG/DL (0.60-1.30) 2.48 MG/DL (0.60-1.30) 2.78 MG/DL (0.60-1.30) Random Glucose 178 MG/DL (74-106) 296 MG/DL (74-106) 168 MG/DL (74-106) Total Protein 5.5 GM/DL (6.4-8.2) 5.0 GM/DL (6.4-8.2) 4.8 GM/DL (6.4-8.2) Albumin 3.7 GM/DL (3.4-5.0) 3.1 GM/DL (3.4-5.0) 2.8 GM/DL (3.4-5.0) Calcium Level 7.8 MG/DL (8.5-10.1) 7.6 MG/DL (8.5-10.1) 8.0 MG/DL (8.5-10.1) Magnesium Level 1.8 MG/DL (1.5-2.5) 1.9 MG/DL (1.5-2.5) 1.9 MG/DL (1.5-2.5) Alkaline Phosphatase 286 U/L (45-117) 268 U/L (45-117) 266 U/L (45-117) Aspartate Amino Transf (AST/SGOT) 15 U/L (15-37) 16 U/L (15-37) 19 U/L (15-37) Alanine Aminotransferase (ALT/SGPT) 21 U/L (12-78) 18 U/L (12-78) 17 U/L (12-78) Total Bilirubin 0.7 MG/DL (0.2-1.0) 0.6 MG/DL (0.2-1.0) 0.6 MG/DL (0.2-1.0) Sodium Level 137 MEQ/L (136-145) 135 MEQ/L (136-145) 133 MEQ/L (136-145) Potassium Level 3.0 MEQ/L (3.5-5.1) 3.1 MEQ/L (3.5-5.1) 4.0 MEQ/L (3.5-5.1) Chloride Level 98 MEQ/L (98-107) 94 MEQ/L (98-107) 95 MEQ/L (98-107) Carbon Dioxide Level 25.6 MEQ/L (21.0-32.0) 25.7 MEQ/L (21.0-32.0) 23.2 MEQ/L (21.0-32.0) Anion Gap 13 MEQ/L (5-15) 15 MEQ/L (5-15) 15 MEQ/L (5-15) Estimat Glomerular Filtration Rate 28 ML/MIN (>89) 25 ML/MIN (>89) 22 ML/MIN (>89) Phosphorus Level 1.6 MG/DL (2.5-4.9) 1.8 MG/DL (2.5-4.9) 1.9 MG/DL (2.5-4.9) Basophils % 1 % (0-2) Random Vancomycin Level 22.0 COMMENT 20.9 COMMENT Digoxin Level 1.0 NG/ML (0.8-2.0) Blood Gas Puncture Site CENTRAL LINE/RN Blood Gas Patient Temperature 98.6 Venous Blood pH 7.25 (7.360-7.400) Venous Blood Partial Pressure CO2 61 mmHg (44-48) Venous Blood Partial Pressure O2 40 mmHg (35-40) Venous Blood HCO3 26 mmol/L (22-26) Venous Blood Oxygen Saturation 68 % (70-76) Venous Blood Oxygen Content 9.0 Vol % (9.0-17.0) Venous Blood Base Excess -0.5 mmol/L (-2-2) Oxygen Delivery Device VENTILATOR Blood Gas Ventilator Setting SEE COMMENT Blood Gas Inspired Oxygen 35 % Polychromasia 2.2 % (0.0-1.9) Test 12/23/17 10:30 12/23/17 14:47 12/24/17 05:28 Prothrombin Time 11.5 SEC (9.8-11.6) Prothromb Time International Ratio 1.1 RATIO Blood Gas Puncture Site CENTRAL LINE CENTRAL LINE Blood Gas Patient Temperature 98.6 98.6 Venous Blood pH 7.30 (7.360-7.400) 7.34 (7.360-7.400) Venous Blood Partial Pressure CO2 49 mmHg (44-48) 51 mmHg (44-48) Venous Blood Partial Pressure O2 35 mmHg (35-40) 35 mmHg (35-40) Venous Blood HCO3 23 mmol/L (22-26) 27 mmol/L (22-26) Venous Blood Oxygen Saturation 60 % (70-76) 61 % (70-76) Venous Blood Oxygen Content 8.0 Vol % (9.0-17.0) 6.8 Vol % (9.0-17.0) Venous Blood Base Excess -2.4 mmol/L (-2-2) 1.8 mmol/L (-2-2) Oxygen Delivery Device VENTILATOR VENTILATOR Blood Gas Ventilator Setting SEE COMMENTS PRVC/ AC Blood Gas Inspired Oxygen 35 % 35 % White Blood Count 6.8 TH/MM3 (4.0-11.0) Red Blood Count 2.73 MIL/MM3 (4.50-5.90) Hemoglobin 7.8 GM/DL (13.0-17.0) Hematocrit 24.4 % (39.0-51.0) Mean Corpuscular Volume 89.2 FL (80.0-100.0) Mean Corpuscular Hemoglobin 28.4 PG (27.0-34.0) Mean Corpuscular Hemoglobin Concent 31.8 % (32.0-36.0) Red Cell Distribution Width 22.3 % (11.6-17.2) Platelet Count 145 TH/MM3 (150-450) Mean Platelet Volume 9.4 FL (7.0-11.0) Neutrophils (%) (Auto) 79.9 % (16.0-70.0) Lymphocytes (%) (Auto) 12.2 % (9.0-44.0) Monocytes (%) (Auto) 7.5 % (0.0-8.0) Eosinophils (%) (Auto) 0.0 % (0.0-4.0) Basophils (%) (Auto) 0.4 % (0.0-2.0) Neutrophils # (Auto) 5.4 TH/MM3 (1.8-7.7) Lymphocytes # (Auto) 0.8 TH/MM3 (1.0-4.8) Monocytes # (Auto) 0.5 TH/MM3 (0-0.9) Eosinophils # (Auto) 0.0 TH/MM3 (0-0.4) Basophils # (Auto) 0.0 TH/MM3 (0-0.2) CBC Comment AUTO DIFF Differential Total Cells Counted 100 Neutrophils % (Manual) 70 % (16-70) Band Neutrophils % 16 % (0-6) Lymphocytes % 9 % (9-44) Monocytes % 4 % (0-8) Neutrophils # (Manual) 5.9 TH/MM3 (1.8-7.7) Metamyelocytes 1 % (0-1) Differential Comment FINAL DIFF MANUAL Platelet Estimate LOW (NORMAL) Platelet Morphology Comment NORMAL (NORMAL) Polychromasia 3.3 % (0.0-1.9) Stomatocytes 1+ (NORMAL) Blood Urea Nitrogen 66 MG/DL (7-18) Creatinine 2.03 MG/DL (0.60-1.30) Random Glucose 143 MG/DL (74-106) Total Protein 5.7 GM/DL (6.4-8.2) Albumin 4.0 GM/DL (3.4-5.0) Calcium Level 7.7 MG/DL (8.5-10.1) Phosphorus Level 2.3 MG/DL (2.5-4.9) Magnesium Level 1.9 MG/DL (1.5-2.5) Alkaline Phosphatase 198 U/L (45-117) Aspartate Amino Transf (AST/SGOT) 18 U/L (15-37) Alanine Aminotransferase (ALT/SGPT) 16 U/L (12-78) Total Bilirubin 0.8 MG/DL (0.2-1.0) Sodium Level 139 MEQ/L (136-145) Potassium Level 3.6 MEQ/L (3.5-5.1) Chloride Level 98 MEQ/L (98-107) Carbon Dioxide Level 26.0 MEQ/L (21.0-32.0) Anion Gap 15 MEQ/L (5-15) Estimat Glomerular Filtration Rate 32 ML/MIN (>89) Random Vancomycin Level 19.8 COMMENT Result Diagram: 4/27/18 0528 12/24/17 0528 Procedures 11/16: Endotracheal intubation 11/18: Endotracheal intubation 11/27: Right-sided pigtail catheter placement to the right pleural cavity 11/27: Right chest tube placement 11/29: Left IJ central line placed, DC 12/17 12/02: Vas-Cath placement 12/03: PEG tube placement 12/14: Bronchoscopy 12/14: Tracheostomy placement 12/17: right subclavian central line placed 12/23: Right IJ Vas-Cath replaced . Assessment and Plan Disease Oriented Problem List: (1) COPD (chronic obstructive pulmonary disease) (2) Respiratory distress (3) CHF (congestive heart failure) (4) ADRIAN (obstructive sleep apnea) (5) Diabetes mellitus type 2, insulin dependent Symptom Scale: (1) Dyspnea and respiratory abnormalities (2) Pain, generalized Pertinent Non-Medical Issues Psychosocial: He was born in [place] and moved to [place] many years ago. 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 Spiritual: [employer] pool. Legal: No legal issues noted. Ethical issues impacting care: No ethical issues noted. . Important Contacts : Cony Varela . Prognosis His prognosis is poor. He has significant lung compromise requiring a trilogy ventilator at home with multiple recurrent admissions for pulmonary compromise. He developed cardiac arrest requiring CPR with subsequent pneumothorax of the right lung. His renal indices continue to increase and he is now at risk of requiring dialysis. His transaminases are also rising, possible liver shock. His condition is frail and he is at significant risk for continued complications and decline. Code Status: Full Code Plan PLAN: Legal decision maker: Patient is not capacitated to make his decisions. His Cony is his legal proxy. Goals: Aggressive CODE STATUS: FULL CODE SYMPTOMS: * Dyspnea: Multifactorial to include pseudomonas aeruginosa pneumonia, chronic obstructive pulmonary disease, right pneumothorax, atrial fibrillation, diastolic heart failure, fluid volume excess, profound muscle weakness and a 40 year history of smoking 3 packs per day. He is currently mechanically ventilated, failing CPAP trials secondary to apnea, tachycardia, hypoxia. [facility] off vasopressor for vent weaning if accepted. * Edema: Significant facial edema, new since placement of right IJ Vas-Cath yesterday, in addition to chronic anasarca and weeping lower extremity edema. Dialysis had been limited in fluid removal due to hypotension yesterday was able to remove 3.7 L of fluid. They have been administering albumin during dialysis and his albumin has now risen to 4.0. His blood pressure is improving and Bertin-Synephrine is being weaned. Plan for dialysis Wednesday, , Wednesday. Patient had previously failed diuretic administration and is receiving none at this time. * Encephalopathy: Multifactorial to include sepsis, renal failure, hypoperfusion secondary to hypotension, hypoxia. Now on Bertin-Synephrine to maintain MAP greater than 65. Palliative care will continue to follow the patient during hospital course as condition evolves, to assist patient/decision-maker with understanding of their medical conditions, weighing benefits/burdens of treatment options, for clarification of goals of treatment. Additionally will assist with any symptoms of palliative concern. . Attestation To help prompt me to consider important information that might be impacting today's encounter and assessment, information from prior notes written by myself or my colleagues may have been "brought forward" into today's note. My signature on this note, however, is an attestation that I personally performed the exam, history, and/or decision-making noted today, and, unless otherwise indicated, the interactions with patient, family, and staff as well as the review of records all occurred today. I also attest that the listed assessment and stated plan reflect my best clinical judgment today based on the combination of historical information, prior notes, and today's exam/ interactions. When time spent is documented, it refers only to time spent today by the signer, or if indicated, combined time spent today by collaborating physician/nurse practitioner. . Linda Gilbert Dec 24, 2017 3:53 pm
[2017-12-24] MEDS: HEPARIN SODIUM - IV 10,000 UNITS/10 ML VIAL PRN (17:14)
[2017-12-24] MEDS: GENTAMICIN SULFATE 20 MG/2 ML VIAL OTHER PRN (17:16)
[2017-12-25] VITALS (18 sets, daily range): BP systolic 100–108; BP diastolic 56–71; PULSE 94–114; RESP 22–23; TEMP 97.5–100; O2SAT 100
[2017-12-25] MEDS: INSULIN ASPART SUPPLEMENTAL SCALE SQ SCH ×5 (03:20→19:57)
[2017-12-25] MEDS: CHLORHEXIDINE GLUCONATE 2 % 1 PACK (2 CLOTHS) TOP SCH (03:20)
[2017-12-25] MEDS: metroNIDAZOLE 500 MG TAB PO SCH ×4 (04:50→23:54)
--- NOTE | 2017-12-25 04:52 | RADRPT ---
EXAM DATE/TIME: 12/25/2017 03:57 [facility] COMPARISON: CHEST SINGLE AP, December 24, 2017, 4:21. INDICATIONS : Shortness of breath, possible pneumothorax. MEDICAL HISTORY : Chronic obstructive pulmonary disease. Cardiovascular disease. SURGICAL HISTORY : Tracheostomy ENCOUNTER: Subsequent ACUITY: 1 month PAIN SCORE: Non-responsive. LOCATION: Bilateral chest FINDINGS: Right chest tube projects in the mid chest, stable position. The 2 right central lines are stable in position. Increasing patchy infiltrates in the left lower lobe lung. Stable 9 mm lateral right pne umothorax. The right lung is clear. No evidence of pneumothorax. There is blunting of the left cos tophrenic angle characteristic pleural effusion. Extensive subcutaneous emphysema about the left and right chest and supraclavicular region, stable. CONCLUSION: 1. Stable right lateral pneumothorax measuring 9 mm. 2. Increasing consolidative infiltrates left lower lung and stable left pleural effusion. Shaq Eisenberg MD on December 25, 2017 at 4:48 Board Certified Radiologist. This report was verified electronically.
[2017-12-25 05:37] LABS: AUTOMATED NEUTROPHIL # 6.3 TH/MM3 (1.8-7.7); BASOPHIL % 0.4 % (0.0-2.0); HEMATOCRIT 27.2 % (39.0-51.0); HEMOGLOBIN 8.8 GM/DL (13.0-17.0); LYMPH % 11.4 % (9.0-44.0); LYMPHOCYTE # 0.9 TH/MM3 (1.0-4.8); MEAN CELL VOLUME 89.7 FL (80.0-100.0); MEAN CORPUSCULAR HEMOGLOBIN 29.1 PG (27.0-34.0); MEAN CORPUSCULAR HGB CONC 32.4 % (32.0-36.0); MEAN PLATELET VOLUME 9.3 FL (7.0-11.0); MONO % 7.3 % (0.0-8.0); MONOCYTE # 0.6 TH/MM3 (0-0.9); NEUT % 80.9 % (16.0-70.0); PLATELET COUNT 183 TH/MM3 (150-450); RED BLOOD COUNT 3.04 MIL/MM3 (4.50-5.90); RED CELL DISTRIBUTION WIDTH 22.3 % (11.6-17.2); WHITE BLOOD COUNT 7.8 TH/MM3 (4.0-11.0)
[2017-12-25 05:51] LABS: ALBUMIN 3.5 GM/DL (3.4-5.0); BICARBONATE 25.3 MEQ/L (21.0-32.0); CALCIUM 7.4 MG/DL (8.5-10.1); CALCIUM-PROTEIN CORRECTED 8.3 MG/DL (8.5-10.1); CREATININE 2.53 MG/DL (0.60-1.30); PHOSPHORUS 3.1 MG/DL (2.5-4.9); RANDOM VANCOMYCIN 18.7 COMMENT; TOTAL BILIRUBIN ADULT 0.6 MG/DL (0.2-1.0); TOTAL PROTEIN 5.5 GM/DL (6.4-8.2)
[2017-12-25 06:50] LABS: BANDS 5 % (0-6); CORRECTED NUCLEATED RBC 1 /100 WBC (0-0); LYMPHOCYTES 7 % (9-44); METAMYELOCYTES 1 % (0-1); MONOCYTES 1 % (0-8); MYELOCYTES 3 % (0-0); NEUTROPHIL # MANUAL DIFF 7.2 TH/MM3 (1.8-7.7); NUCLEATED RED BLOOD CELL 1 (0-0); POLYS (SEG NEUTROPHILS) 83 % (16-70)
[2017-12-25 06:51] LABS: ACANTHOCYTES OCC (NORMAL); OVALOCYTES 1+ (NORMAL); SPHEROCYTES 1+ (NORMAL); TOXIC GRANULATION 2+ (NORMAL)
[2017-12-25] MEDS: INSULIN DETEMIR 100 UNITS/ML VIAL SQ SCH ×2 (08:06→19:57)
[2017-12-25] MEDS: SODIUM CHLORIDE 0.9% FLUSH 10 ML FLUSH IV FLUSH SCH ×2 (08:06→19:49)
[2017-12-25] MEDS: EPOETIN ALFA 10,000 UNITS/ML VIAL IV PUSH PRN (08:27)
[2017-12-25] MEDS: HEPARIN SODIUM - IV 10,000 UNITS/10 ML VIAL PRN (08:27)
[2017-12-25] MEDS: GENTAMICIN SULFATE 20 MG/2 ML VIAL OTHER PRN (08:28)
[2017-12-25] MEDS: DOCUSATE SODIUM 50 MG/SENNA 8.6 MG TAB PO SCH ×2 (09:00→19:50)
[2017-12-25] MEDS: CALCITRIOL 0.25 MCG CAP PO SCH (09:00)
[2017-12-25] MEDS: FAMOTIDINE 20 MG TAB PO SCH ×2 (09:00→19:49)
[2017-12-25] MEDS: AMIODARONE 200 MG TAB PO SCH ×2 (09:00→19:49)
[2017-12-25] MEDS: BUDESONIDE-FORMOTEROL 160/4.5 MCG INHALER INH SCH ×2 (09:01→20:14)
[2017-12-25] MEDS: RESP: TOBRAMYCIN SULFATE 300 MG/5 ML NEB NEB SCH ×2 (09:01→20:48)
--- NOTE | 2017-12-25 11:25 | HHI.NPPN ---
Subjective Renal Failure: Acute History of Present Illness This is a 77-year-old male with past medical history of ischemic heart disease, atrial fibrillation, congestive heart failure, possibly diastolic dysfunction, diabetes mellitus, chronic obstructive pulmonary disease, was admitted on 11/14 with respiratory distress. Nephrology was called to see the patient because of elevated BUN and creatinine. The patient has creatinine of 1.1 on admission, which increased after 2 or 3 to 1.3-1.5 and for the last 2 days, it has been going up and now it is 2.8. The patient was initially diagnosed with pneumonia and was started on antibiotics and then later on, patient developed respiratory failure and was intubated. He was also found to have asystole on 11/27 for 3 minutes and CPR was done with ACLS protocol, and it was shown that he has large right-sided pneumothorax. The blood pressure has been stable and there are no significant hypotensive episodes documented. Most of the history was taken from he patient' s chart. Additional Remarks Tolerated HD today, remains intubated with trach Review of Systems General General Remarks Unable to do ROS as patient is intubated Objective Data Data Vital Signs Date Time Temp Pulse Resp B/P (MAP) Pulse Ox O2 Delivery O2 Flow Rate FiO2 12/25/17 09:03 100 40 12/25/17 08:00 109 12/25/17 08:00 98.3 109 22 106/62 (77) 100 12/25/17 08:00 35 12/25/17 06:00 104 12/25/17 04:00 35 12/25/17 04:00 99.5 96 22 103/71 (82) 100 12/25/17 04:00 96 12/25/17 03:46 100 50 12/25/17 02:00 95 12/25/17 00:00 35 12/25/17 00:00 94 12/25/17 00:00 98.7 94 22 102/56 (71) 100 12/24/17 23:18 100 50 12/24/17 22:00 80 12/24/17 20:00 35 12/24/17 20:00 80 12/24/17 20:00 99.0 80 26 94/51 (65) 100 12/24/17 19:31 100 50 12/24/17 18:00 79 12/24/17 16:16 100 50 12/24/17 16:00 101 12/24/17 16:00 35 12/24/17 16:00 98.4 105 22 109/64 (79) 100 12/24/17 14:00 102 12/24/17 12:00 50 12/24/17 12:00 101 12/24/17 12:00 98.0 97 28 131/81 (98) 100 -: 12/25/17 0455 12/25/17 0455 Microbiology 12/24/17 Gram Stain - Final, Resulted 12/24/17 Sputum Culture, Resulted Pending Tubes & Lines: Vas-Cath, Haynes Physical Exam General Appearance: Obese Eyes Eye Exam: Pupils Equal Pulmonary Resp Exam: Breath Sounds Equal Cardiology CV Exam: Regular Gastrointestinal/Abdomen GI Exam: Soft, Non-Tender, Distended Genitourinary Exam: Flank Non-Tender Integumentary Skin Exam: Clear, Warm Extremeties Extremities Exam: Moderate Edema Neurologic Neuro Exam: Awake Assessment/Plan Assessment Summary: DAVID/Acute Renal Failure Problem List: (1) DAVID (acute kidney injury) ICD Codes: N17.9 - Acute kidney failure, unspecified Plan: Acute kidney injury most likely related to acute tubular necrosis, either from the infection or related to his cardiac status and cardiac arrest. Creatinine is stable but minimal urinary output Plan Remains dependent on HD - 3.1L UF today. Plan next HD Wednesday, continue TTS HD. Continue for follow UOP and BMP Avoid nephrotoxins as possible. Mannitol and Albumin with HD. (2) Respiratory failure ICD Codes: J96.90 - Respiratory failure, unspecified, unspecified whether with hypoxia or hypercapnia Plan: Intubated weaning per infant babysitter. (3) Thrombocytopenia ICD Codes: D69.6 - Thrombocytopenia, unspecified Plan: Hematology has been consulted and following (4) Anemia ICD Codes: D64.9 - Anemia, unspecified Plan: has received blood transfusion. Con Dean MD Dec 25, 2017 11:25
[2017-12-25] MEDS: LANTHANUM CARBONATE 500 MG CHEWABLE TABLET CHEW SCH ×3 (11:49→19:28)
[2017-12-25] MEDS: HEPARIN SODIUM - SQ 10,000 UNITS/ML VIAL SQ SCH ×2 (11:49→21:55)
[2017-12-25 11:50] LABS: DIGITOXIN None Detected ng/mL (10 - 30)
[2017-12-25] MEDS: HYDROCORTISONE SOD SUCCINATE 100 MG VIAL IV PUSH SCH ×2 (11:50→23:54)
[2017-12-25] MEDS: CHLORHEXIDINE 0.12% (ORAL KIT) 15 ML CUP MT SCH ×2 (11:52→20:04)
--- NOTE | 2017-12-25 12:08 | HHI.CCPN ---
Subjective Remarks/Hospital Course This is a 77-year-old male with a medical history significant for COPD, CHF, A. fib, diabetes, that presented to emergency department from [facility] for evaluation of worsening shortness of breath over the last 3 days. The patient was been given Solu-Medrol 125 mg and 2 albuterol treatments enroute to ED. Upon presentation to the ED the patient was on a nonrebreather. He was tachypneic and tachycardic. Patient's medical history significant for MRSA pneumonia previously admitted on 10/27/16 for approximately 12 days at [facility]. The patient is normally on 2.5 L/m nasal cannula O2 home dependency, and he lives with ( normally) a PCO2 in the 80s according to his . Patient was then discharged to [facility], and then transferred to [facility] for rehabilitation. He has been on an unknown antibiotic per the family and steroids for the last 3 days. Laboratory and imaging studies were performed with noted elevation in CO2 The patient was given empiric antibiotics in the ED and placed on BiPAP. Critical care medicine was consulted. Subjective: 11/15: Patient maintained on BiPAP throughout the night O2 saturations 97-98% on FiO2 of 0.40. Hemodynamically stable. Attempts made to wean patient to nasal cannula this a.m. unsuccessful, patient's O2 saturation in the 70s, patient placed back on BiPAP. Chest x-ray pending WBC count significantly diminished, leukocytosis resolved. Patient extremely anxious, Precedex infusion initiated. 11/16: Late entry note. Patient seen 10 AM. Overnight the patient converted to A. fib RVR, despite being on Cardizem 4 times a day and metoprolol twice a day- home medications, the patient received IV Cardizem followed by amiodarone infusion. Per report the patient became hypotensive, Cardizem discontinued. Amiodarone continued. Early this a.m. patient was resting comfortably A. fib rate controlled rate. The patient suddenly converted to A. fib RVR heart rate 150s-160s, acute hypoxemic respiratory failure, requiring intubation. The patient was intubated uneventfully and continues on amiodarone at 0.5 mg/hour, rate now controlled in conjunction with sedation. Cardiology consulted, his film spooler is Dr. Reyes X-ray revealed lung consolidation improved, chest x- ray clear. Plan for CPAP trials in a.m.. 11/17: No acute events overnight. Patient had 1 short 8 beat run of V. tach last evening was self resolution, electrolytes within normal limits. The patient continues on amiodarone 0.5 mg/hr. CPAP trials initiated this a.m.. Tube feeds initiated at trickle feeds. Patient converted to sinus rhythm at 2 AM. 11/18 Patient remains sedated and intubated. Afebrile. 11/19 Patient was extubated yesterday however last night he was noted to choke on water provided by the family. Stat ABG demonstrated acute hypercapnic respiratory failure and was emergently intubated. Currently sedated and intubated. 11/20 Patient remains intubated on Fentanyl drip however he si awake and alert. Afebrile. 11/21 Patient is awake and alert placed on CPAP with PS:15, PEEP:5. Afebrile. 11/22 Patient remains intubated , did not tolerate CPAP trials yesterday as he became tachycardic and hypertensive. On no sedation awake and alert. 11/23 No events overnight, off sedation. 11/24: Resting comfortably on mechanical ventilation currently. Daily C Pap trials ongoing. 11/25: Sedated with Precedex, orally intubated on mechanical ventilation. Daily C Pap trials 11/26: Sedated with Precedex, orally intubated on mechanical ventilation. Got tachypneic with CPAP trial today hence placed back on PRVC. Spiked a fever, garcia cultures ordered. Went into A. fib with RVR subsequently for which being initiated on amiodarone bolus followed by drip and Lopressor 5 mg IV every 6 as needed for 11/27: This morning patient developed bradycardia followed by asystole for which she had 3 minutes CPR with ACLS protocol with return of spontaneous circulation. Post code chest x-ray revealed moderate to large right pneumothorax for which a right pigtail catheter was placed by me however despite airleak patient continue have moderate to large pneumothorax hence a second right sided 28 Latvian chest tube was placed to -40 cm water pressure. Air leaks 1+ in both pigtail catheter and chest tube. Patient remains in a flutter currently. Dr. reyes evaluated patient as well following cardiac arrest. 11/28: Sedated, arousable, orally intubated on mechanical ventilation. Worsening renal function noted. MDR Pseudomonas in sputum. Right sided chest tube/ pigtail catheter with 1+ air leak in both. Subcutaneous emphysema noted over right side of face neck and right upper extremity. On 50% FiO2, PEEP +5. Poor urine output for which 500 cc and is bolus given earlier. Treated for hyperkalemia with Kayexalate PO, glucose insulin, calcium IV. 4/2: Remains sedated, arousable, orally intubated on mechanical ventilation. A. fib with RVR this morning for which she was loaded with amiodarone and initiated on amiodarone drip. Spiking fever 103.5. ID adjusting antibiotics. Stool for C. difficile ordered as he had some diarrhea today though received Kayexalate yesterday for hyperkalemia. Pigtail catheter on the right side appeared to be dislodged hence this was removed. 28 Latvian chest tube in right pleural cavity repositioned. 11/30: Late entry note , patient seen at 12 noon. Creatinine continues to trend upward.Sedated but easily arousable. 12/01: Patient lightly sedated, following commands this a.m.. Creatinine noted increased, possible dialysis consideration for tomorrow. Patient to be diuresed today. CPAP trial initiated failed after 5 minutes, repeat this afternoon. 12/02: Patient placed on Lasix infusion throughout the night . No renal improvement,creatinine worsened today , plan for Vas-Cath placement and IHD today. This extensive discussion with patient and plans for tracheostomy and PEG tube placement secondary to failure to wean. 12/03: Late entry note, patient seen at 11 am. Patient scheduled for PEG placement today by Dr. Iglesias. Patient continues to fail CPAP trials. Plan for tracheostomy in the near future 12/04: Late entry note . Patient seen earlier this am. Overnight the patient became hypoglycemic, secondary to n.p.o. status, post PEG placement. D10 was initiated at 30 cc/hr. Tube feeds reinitiated Jevity 1.5, 24 hours post PEG tube placed, D10 discontinued. Patient remains on fentanyl at 100 mics/hour, lightly sedated. Patient denies pain answering by nodding head to yes and no questions. Tracheostomy planned for Wednesday12/06/[address] Calderon. 12/05: Remains intubated sedated with 50 mcg of fentanyl. On attempted CPAP trial patient remained dyspneic. Significant neuromuscular weakness persist. Chest x-ray shows small right apical pneumothorax. Tentatively plan for tracheostomy tomorrow. Dr. Calderon has already been consulted 12/06 Patient remains intubated for possible trach today. On Levophed 12 mics. Afebrile. 12/07 No events overnight. Trach was placed on hold yesterday as patient was on Levophed. He is down to 5 mics today. Afebrile. 12/08 Patient remains intubated on no sedation. CT brain this morning showed no acute process. Off Levophed. 12/09 Patient was placed back on Levophed 6 mics. Afebrile. Remains intubated on no sedation. 12/10 Patient remains intubated. On Neosyn 40 mics went into Afib with RVR HR 128 12/11 Patient remains intubated. Now on Neosyn 200 mics ( MAP 86mmHg). s/p HD yesterday with 1.5L removed. T:99.7 12/12 Patient remains sedated and intubated. Neosyn down 100 mics. For transfusion 2u PRBC and 1u PLT ( Hgb 6.7 and PLT 18 this morning) s/p HD with 3L removed yesterday. WBC is trending down. 12/13: More critically ill today, Bertin-Synephrine had to be increased to 150 mcg/ min, remains borderline hypotensive despite Bertin-Synephrine, currently in A. fib with RVR. Digoxin additional 0.25 mg IV push 1, start amiodarone infusion 12/14: Patient remains patient remains intubated currently on 50 mcg/min of Bertin- Synephrine. Remains on amiodarone infusion with heart rate better controlled 110-120. Plan for perc trach at bedside today 12/15: Remains on Bertin-Synephrine 50 mcg/min. On attempted CPAP patient had multiple PVCs and PACs. Potassium 2.7 getting replaced. Argatroban will be restarted 12/16: Patient is more lethargic, profoundly hypotensive Bertin-Synephrine increase to 300 mcg/min. Possibly septic shock. Currently on micafungin backside Levaquin and Flagyl. Add gram-positive coverage with vancomycin send blood cultures. Also will also change central line today-cleared by Dr. Vela to use subclavian access 12/17: Hypertensive encephalopathic Bertin-Synephrine at 100 mcg/min. new right subclavian central line placed left IJ will be sent for culture. Currently in A. fib with RVR heart rate varying from 110s-130. If persistent will give 2.5 metoprolol. AUGUSTA negative and argatroban discontinued. Start heparin subcu for DVT prophylaxis 12/18: Patient remains critically currently on 140 mcg/min of Bertin-Synephrine. Tachypneic with agonal appearing breathing on CPAP trial. Chest x-ray remains unchanged. Platelet count is 54 today, will hold subcu heparin. 12/19: Afebrile. Patient failed CPAP trials today. Patient underwent dialysis 3 L off today. Patient continues on vasopressor support with phenylephrine. Labs pending. Placed right chest tube to waterseal. 12/20: Continues to be critical currently on 200 mcg/min of End-Bmpasqpijw-rdqfg is increased from yesterday, remains hypotensive. Atrial fibrillation with RVR persist. Will restart IV amiodarone in an attempt to cardiovert due to hypotension. However I do not believe his hypotension is due to A. fib with RVR , hypotension is mostly from sepsis. There is no indication for DC cardioversion. New sputum culture shows Pseudomonas intermediately sensitive to Levaquin. Continue Zerbaxa and vanc, and micafungin per ID. DC Levaquin and metronidazole if okay with ID 12/21: No events over the night. Patient continues to require phenylephrine infusion, currently at 120 mcg/minute. Patient is awake, following some commands. T-max of 99.7. Minimal urine output. Right-sided chest tube to waterseal. 12/22: No events over the night. Patient on pressure support of 18 with good tidal volumes but low respiratory rate. He is awake, weak, tracking. present at bedside. Right-sided chest tube to waterseal. Small residual right pneumothorax on chest x-ray. 12/23: No events over the night. T-max of 98.8. Slight increase in subcutaneous emphysema over the right side. On morning chest x-ray pneumothorax , chest tube placed back on suction. 12/24: No events over the night. Subcutaneous emphysema improving. Morning chest x-ray still shows a very small residual right-sided pneumothorax. Right- sided chest tube on suction with small air leak. Patient is awake, tracking. present at bedside. 12/25: She was weaned off phenylephrine yesterday and he remained off so far. Had HD done this a.m. 3.2 L fluid removal. Subcutaneous emphysema is improved, right-sided chest tube remains on suction with no air leak. Morning chest x- ray reviewed, no change compared to yesterday. Afebrile over the night with a T -max of 99.5 over the last 24 hours. Objective Vital Signs Date Time Temp Pulse Resp B/P (MAP) Pulse Ox O2 Delivery O2 Flow Rate FiO2 12/25/17 09:03 100 40 12/25/17 08:00 109 12/25/17 08:00 98.3 22 106/62 (77) 12/23/17 23:06 Ventilator Intake and Output 12/25/17 12/25/17 12/26/17 08:00 16:00 00:00 Intake Total 952 ml Output Total 40 ml Balance 912 ml Result Diagram: 12/25/17 0455 12/25/17 0455 Imaging Last 24 hours Impressions Chest X-Ray 12/23/17 0600 Signed Impressions: Service Date/Time: November 04:04 - CONCLUSION: 1. Right- sided chest tube without pneumothorax. 2. Left basilar density, unchanged. Nikunj Oneil MD Last 24 hours Impressions Chest X-Ray 12/22/17 0600 Signed Impressions: Service Date/Time: Friday, December 22, 2017 04:38 - CONCLUSION: 1. Right chest tube with tiny right pneumothorax. Right central lines remain unchanged. Slight improvement in left basilar airspace disease with small effusions. Tera Gibson MD Last Impressions Chest X-Ray 12/11/17 0000 Signed Impressions: Service Date/Time: Monday, December 11, 2017 10:51 - CONCLUSION: Stable chest with moderate subcutaneous emphysema and no pneumothorax. Torin Dennison MD FACR Liver Ultrasound 12/09/17 0000 Signed Impressions: Service Date/Time: November 19:18 - CONCLUSION: 1. Limited suboptimal examination with only a small portion of the liver visualized. 2. The gallbladder and common bile duct could not be visualized. The pancreas is not evaluated. 3. Left pleural effusion. Liang Jimenez MD Head CT 12/08/17 0000 Signed Impressions: Service Date/Time: Friday, December 08, 2017 08:25 - CONCLUSION: Negative for acute process. Torin Dennison MD FACR Catheter Placement X-Ray 12/02/17 0000 Signed Impressions: Service Date/Time: November 10:47 - CONCLUSION: Uncomplicated right internal jugular Vas-Cath placement as above. incidental note is made of subcutaneous emphysema within the chest wall and neck Con Dennison MD Lower Extremity Ultrasound 11/29/17 0000 Signed Impressions: Service Date/Time: Wednesday, November 29, 2017 22:02 - CONCLUSION: Normal examination. Abdiel Mcintyre MD Renal Ultrasound 11/28/17 0000 Signed Impressions: Service Date/Time: Tuesday, November 28, 2017 20:30 - CONCLUSION: Nondiagnostic exam. Rashad Bose MD Objective Remarks General - elderly gentleman, trached, on ventilator, weak, ill-appearing HEENT - pupils are equal, reactive, sclerae are anicteric, neck is supple, unable to appreciate JVD, trach in place, RIJ HD catheter - site clean CV - irregular heart sounds, no murmurs Chest - decreased air entry at bases b/l, scattered coarse breath sounds bilateral, no wheezes, right-sided chest tube on suction Abdomen - soft, non-tender, distended, BS present, PEG tube in place Skin - peripheral cyanosis over bilateral toes, unchanged; crepitus on palpation over the upper chest and neck, improved Extremities - warm, 3+ pitting edema, + peripheral pulses Neuro - awake, weak, tracking, not consistently following commands A/P Problem List: (1) A-fib ICD Code: I48.91 - Unspecified atrial fibrillation (2) CHF (congestive heart failure) ICD Code: I50.9 - Heart failure, unspecified Status: Chronic (3) HTN (hypertension) ICD Code: I10 - Essential (primary) hypertension Status: Chronic (4) ADRIAN (obstructive sleep apnea) ICD Code: G47.33 - Obstructive sleep apnea (adult) (pediatric) Status: Chronic (5) MRSA pneumonia ICD Code: J15.212 - Pneumonia due to Methicillin resistant Staphylococcus aureus Status: Acute (6) Diabetes mellitus type 2, insulin dependent ICD Code: E11.9 - Type 2 diabetes mellitus without complications; Z79.4 - USP (current) use of insulin Status: Chronic (7) COPD (chronic obstructive pulmonary disease) ICD Code: J44.9 - Chronic obstructive pulmonary disease, unspecified Status: Acute (8) Respiratory distress ICD Code: R06.03 - Acute respiratory distress Status: Acute (9) Leukocytosis ICD Code: D72.829 - Elevated white blood cell count, unspecified Status: Acute (10) Lung consolidation ICD Code: J18.1 - Lobar pneumonia, unspecified organism Status: Acute (11) Anxiety ICD Code: F41.9 - Anxiety disorder, unspecified Status: Chronic (12) Failure to wean from mechanical ventilation ICD Code: Z99.11 - Dependence on respirator [ventilator] status Assessment and Plan Neurologic: Encephalopathy, metabolic -unchanged Anxiety Neuro checks per ICU protocol EEG: Mild- mod encephalopathy. Neuro- Dr. Anne. CT brain 12/08 no acute process Not on sedation Respiratory: Acute respiratory failure on mechanical ventilation- extubated and reintubated night of 11/18 after he was noted to choke on water provided by family COPD exacerbation -resolved Pneumonia-MRSA, MDR Pseudomonas Right sided pneumothorax following CPR status post pigtail catheter/chest tube placement 11/27 Obstructive sleep apnea Home O2 dependency Continue with vent support keep sats >90%. s/p Trach 12/14/17 Continue PRVC at the current vent settings. Patient remains synchronized with the vent without auto PEEP, PIP of 30 Daily CPAP trials as tolerated Bronchodilators Pulmonology - Dr Price Right sided chest tube placed on suction Daily chest x-ray Cardiovascular: Shock most likely septic -continues to require phenylephrine infusion Cardiac arrest - asystole, status post CPR 11/27 A. fib RVR History of CHF CAD Peripheral cyanosis/early gangrene of the toes Phenylephrine remains off for now Continue digoxin every 48 hours and amiodarone Check digoxin level on 12/26 Cardizem, Eliquis and atorvastatin on hold Slow hydrocortisone taper Cardiology - Dr. Reyes. Echo showed EF 65-70% Renal: DAVID Monitor renal function, electrolytes replacement as needed Nephrology Dr. Ragland. 12/02 Vas-Cath placed for initiation of IHD HD per nephrology, last one today FEN/GI: Elevated LFT's GERD Monitor LFT's, US liver on 12/06: non diagnostic study US liver 12/09 limited study. Hepatitis profile is negative On tube feeds On Nepro @40cc/hr. Pepcid for GI prophylaxis 12/03 PEG tube placement ID: Pneumonia MRSA, MDR Pseudomonas Leukocytosis Septic shock Continue antibiotics per ID Stool for C. difficile negative on 11/29 and 12/06 Pertinent cultures 12/14 Urine yeast 12/09 BC: NGTD 12/08 Urine cx: C. Glabrata 12/06, 12/16 Sputum cx: Pseudomonas MDR 11/16 sputum cultures- Kleb pneumonia 11/26 sputum cultures growing multidrug resistant Pseudomonas/MRSA 11/28 urine culture growing yeast 11/26 blood culture neg Heme Thrombocytopenia HIT antibody positive AUGUSTA negative. Argatroban discontinued by Dr. Quintana. Endocrine: Glucose monitoring per ICU protocol -- SSI(high scale) Levemir 5u Q12 Msk: Polyneuropathy of Critical Illness Continue PT, OT Prophylaxis: GI Prophylaxis Famotidine BID -- SCDs Holding home dose Eliquis 5 mg BID on 11/27 in view of thrombocytopenia and renal failure Argatroban discontinued HIT AUGUSTA negative Started heparin subcu every 12 hours 12/17/2017, hold due to platelet count being 53, restarted on 12/20 Lines: Left IJ central line placed 11/29-DCd 12/17. New Left central line subclavian placed 12/16/17 Right IJ vascath 12/23 Palliative care is following Patient remains critically ill requiring mechanical ventilation and vasopressors and he is at very high risk for further decompensation and . Discussed with present at bedside. Patient remains off pressors will ask [facility] to reevaluate Problem Qualifiers (1) COPD (chronic obstructive pulmonary disease): Qualified Codes: J44.9 - Chronic obstructive pulmonary disease, unspecified (2) Leukocytosis: Qualified Codes: D72.829 - Elevated white blood cell count, unspecified Nick Green MD Dec 25, 2017 12:08
[2017-12-25] MEDS: ALBUMIN 25% INJ 100 ML IV PRN ×2 (18:13→18:14)
[2017-12-25] MEDS: MANNITOL 12.5 GM/50 ML VIAL IV PRN ×3 (18:13→18:15)
[2017-12-25] MEDS: RESP: ALBUTEROL 2.5 MG/IPRATROPIUM 0.5 MG NEB (PRN) INH (20:09)
[2017-12-26] VITALS (20 sets, daily range): BP systolic 99–121; BP diastolic 55–62; PULSE 87–109; RESP 18–34; TEMP 98.6–99.8; O2SAT 97–100
[2017-12-26] MEDS: INSULIN ASPART SUPPLEMENTAL SCALE SQ SCH ×7 (00:08→23:23)
[2017-12-26] MEDS: CHLORHEXIDINE GLUCONATE 2 % 1 PACK (2 CLOTHS) TOP SCH (04:00)
[2017-12-26 05:07] LABS: AUTOMATED NEUTROPHIL # 7.9 TH/MM3 (1.8-7.7); BASOPHIL % 0.4 % (0.0-2.0); HEMATOCRIT 27.5 % (39.0-51.0); HEMOGLOBIN 8.8 GM/DL (13.0-17.0); LYMPH % 12.6 % (9.0-44.0); LYMPHOCYTE # 1.3 TH/MM3 (1.0-4.8); MEAN CELL VOLUME 91.1 FL (80.0-100.0); MEAN CORPUSCULAR HGB CONC 31.9 % (32.0-36.0); MEAN PLATELET VOLUME 9.2 FL (7.0-11.0); MONO % 7.2 % (0.0-8.0); MONOCYTE # 0.7 TH/MM3 (0-0.9); NEUT % 79.8 % (16.0-70.0); PLATELET COUNT 215 TH/MM3 (150-450); RED BLOOD COUNT 3.02 MIL/MM3 (4.50-5.90); WHITE BLOOD COUNT 9.9 TH/MM3 (4.0-11.0)
[2017-12-26] MEDS: metroNIDAZOLE 500 MG TAB PO SCH ×4 (05:16→23:23)
[2017-12-26 05:56] LABS: ALKALINE PHOSPHATASE 230 U/L (45-117); ALT (GPT) 18 U/L (12-78); AST (GOT) 15 U/L (15-37); BICARBONATE 27.9 MEQ/L (21.0-32.0); BLOOD UREA NITROGEN 62 MG/DL (7-18); CALCIUM 8.2 MG/DL (8.5-10.1); CHLORIDE 99 MEQ/L (98-107); DIGOXIN 1.3 NG/ML (0.8-2.0); GLOMERULAR FILTRATION RATE 33 ML/MIN (>89); GLUCOSE,RANDOM 185 MG/DL (74-106); PHOSPHORUS 1.9 MG/DL (2.5-4.9); SODIUM (NA) 139 MEQ/L (136-145); TOTAL BILIRUBIN ADULT 0.6 MG/DL (0.2-1.0); TOTAL PROTEIN 5.9 GM/DL (6.4-8.2)
--- NOTE | 2017-12-26 05:56 | RADRPT ---
EXAM DATE/TIME: 12/26/2017 04:58 [facility] COMPARISON: CHEST SINGLE AP, December 25, 2017, 3:57. INDICATIONS : Shortness of breath, possible pulmonary disease. MEDICAL HISTORY : Chronic obstructive pulmonary disease. Cardiovascular disease. SURGICAL HISTORY : Tracheostomy ENCOUNTER: Subsequent ACUITY: 1 month PAIN SCORE: Non-responsive. LOCATION: Bilateral chest FINDINGS: Reduction in size of right pneumothorax to 5 mm. Right chest tube unchanged in position. Patchy inf iltrates in the left lung base have improved slightly. Heart is normal in size. Tracheostomy in clover ce. CONCLUSION: 1. Decreased size right apical pneumothorax. 2. Stable patchy infiltrates at the left lung base. Shaq Eisenberg MD on December 26, 2017 at 5:53 Board Certified Radiologist. This report was verified electronically.
[2017-12-26 06:36] LABS: BANDS 3 % (0-6); CORRECTED NUCLEATED RBC 2 /100 WBC (0-0); LYMPHOCYTES 8 % (9-44); MONOCYTES 9 % (0-8); MYELOCYTES 1 % (0-0); NEUTROPHIL # MANUAL DIFF 8.2 TH/MM3 (1.8-7.7); NUCLEATED RED BLOOD CELL 2 (0-0); POLYS (SEG NEUTROPHILS) 78 % (16-70); PROMYELOCYTES 1 % (0-0)
[2017-12-26 06:37] LABS: OVALOCYTES 1+ (NORMAL); STOMATOCYTES 1+ (NORMAL)
[2017-12-26] MEDS: BUDESONIDE-FORMOTEROL 160/4.5 MCG INHALER INH SCH ×2 (07:26→20:26)
[2017-12-26] MEDS: RESP: TOBRAMYCIN SULFATE 300 MG/5 ML NEB NEB SCH ×2 (07:26→20:28)
[2017-12-26] MEDS: AMIODARONE 200 MG TAB PO SCH ×2 (08:26→20:57)
[2017-12-26] MEDS: DIGOXIN 0.125 MG TAB PO SCH (08:26)
[2017-12-26] MEDS: CALCITRIOL 0.25 MCG CAP PO SCH (08:26)
[2017-12-26] MEDS: FAMOTIDINE 20 MG TAB PO SCH ×2 (08:26→20:57)
[2017-12-26] MEDS: CHLORHEXIDINE 0.12% (ORAL KIT) 15 ML CUP MT SCH ×2 (08:27→20:58)
[2017-12-26] MEDS: INSULIN DETEMIR 100 UNITS/ML VIAL SQ SCH ×2 (08:27→20:57)
[2017-12-26] MEDS: DOCUSATE SODIUM 50 MG/SENNA 8.6 MG TAB PO SCH ×2 (08:27→20:57)
[2017-12-26] MEDS: LANTHANUM CARBONATE 500 MG CHEWABLE TABLET CHEW SCH ×3 (08:27→17:31)
[2017-12-26] MEDS: SODIUM CHLORIDE 0.9% FLUSH 10 ML FLUSH IV FLUSH SCH ×2 (09:56→20:57)
[2017-12-26] MEDS: HYDROCORTISONE SOD SUCCINATE 100 MG VIAL IV PUSH SCH ×2 (09:57→23:23)
[2017-12-26] MEDS: HEPARIN SODIUM - SQ 10,000 UNITS/ML VIAL SQ SCH ×2 (09:57→20:57)
--- NOTE | 2017-12-26 10:14 | HHI.NPPN ---
Subjective Renal Failure: Acute History of Present Illness This is a 77-year-old male with past medical history of ischemic heart disease, atrial fibrillation, congestive heart failure, possibly diastolic dysfunction, diabetes mellitus, chronic obstructive pulmonary disease, was admitted on 11/14 with respiratory distress. Nephrology was called to see the patient because of elevated BUN and creatinine. The patient has creatinine of 1.1 on admission, which increased after 2 or 3 to 1.3-1.5 and for the last 2 days, it has been going up and now it is 2.8. The patient was initially diagnosed with pneumonia and was started on antibiotics and then later on, patient developed respiratory failure and was intubated. He was also found to have asystole on 11/27 for 3 minutes and CPR was done with ACLS protocol, and it was shown that he has large right-sided pneumothorax. The blood pressure has been stable and there are no significant hypotensive episodes documented. Most of the history was taken from he patient' s chart. Additional Remarks Tolerated HD yesterday, no events overnight. Remains intubated with trach Review of Systems General General Remarks Unable to do ROS as patient is intubated Objective Data Data Vital Signs Date Time Temp Pulse Resp B/P (MAP) Pulse Ox O2 Delivery O2 Flow Rate FiO2 12/26/17 10:00 87 12/26/17 08:00 99.8 109 18 121/62 (81) 100 12/26/17 08:00 40 12/26/17 08:00 109 12/26/17 07:28 97 40 12/26/17 06:00 97 12/26/17 04:14 98 30 12/26/17 04:00 99.7 101 21 118/57 (77) 100 12/26/17 04:00 30 12/26/17 04:00 101 12/26/17 02:00 90 12/26/17 01:39 100 30 12/26/17 00:00 30 12/26/17 00:00 99.7 93 22 100/60 (73) 100 12/26/17 00:00 93 12/25/17 23:00 100 30 12/25/17 22:00 106 12/25/17 20:02 100 30 12/25/17 20:00 30 12/25/17 20:00 100.0 107 23 108/60 (76) 100 12/25/17 20:00 107 12/25/17 18:00 114 12/25/17 16:00 98.9 102 23 101/56 (71) 100 12/25/17 16:00 35 12/25/17 16:00 102 12/25/17 15:57 100 30 12/25/17 14:00 96 12/25/17 12:56 100 35 12/25/17 12:00 101 12/25/17 12:00 97.5 101 22 100/58 (72) 100 12/25/17 12:00 35 -: 12/26/17 0451 12/26/17 0451 Tubes & Lines: Vas-Cath, [place] Physical Exam General Appearance: Obese Eyes Eye Exam: Pupils Equal Pulmonary Resp Exam: Breath Sounds Equal Cardiology CV Exam: Regular Gastrointestinal/Abdomen GI Exam: Soft, Non-Tender, Distended Genitourinary Exam: Flank Non-Tender Integumentary Skin Exam: Clear, Warm Extremeties Extremities Exam: Moderate Edema Neurologic Neuro Exam: Awake Assessment/Plan Assessment Summary: DAVID/Acute Renal Failure Problem List: (1) DAVID (acute kidney injury) ICD Codes: N17.9 - Acute kidney failure, unspecified Plan: Acute kidney injury most likely related to acute tubular necrosis, either from the infection or related to his cardiac status and cardiac arrest. Creatinine is stable but minimal urinary output Plan Remains anuric, dependent on HD - 3.1L UF yesterday. Plan next HD Wednesday, continue TTS HD. Continue for follow UOP and BMP Avoid nephrotoxins as possible. Mannitol and Albumin with HD. Off pressors now (2) Respiratory failure ICD Codes: J96.90 - Respiratory failure, unspecified, unspecified whether with hypoxia or hypercapnia Plan: Intubated weaning per distance education coordinator. (3) Thrombocytopenia ICD Codes: D69.6 - Thrombocytopenia, unspecified Plan: Hematology has been consulted and following (4) Anemia ICD Codes: D64.9 - Anemia, unspecified Plan: has received blood transfusion. Con Dean MD Dec 26, 2017 10:14
--- NOTE | 2017-12-26 11:39 | HHI.CCPN ---
Subjective Remarks/Hospital Course This is a 77-year-old male with a medical history significant for COPD, CHF, A. fib, diabetes, that presented to emergency department from [facility] for evaluation of worsening shortness of breath over the last 3 days. The patient was been given Solu-Medrol 125 mg and 2 albuterol treatments enroute to ED. Upon presentation to the ED the patient was on a nonrebreather. He was tachypneic and tachycardic. Patient's medical history significant for MRSA pneumonia previously admitted on 10/27/16 for approximately 12 days at [facility]. The patient is normally on 2.5 L/m nasal cannula O2 home dependency, and he lives with ( normally) a PCO2 in the 80s according to his . Patient was then discharged to [facility], and then transferred to [facility] for rehabilitation. He has been on an unknown antibiotic per the family and steroids for the last 3 days. Laboratory and imaging studies were performed with noted elevation in CO2 The patient was given empiric antibiotics in the ED and placed on BiPAP. Critical care medicine was consulted. Subjective: 11/15: Patient maintained on BiPAP throughout the night O2 saturations 97-98% on FiO2 of 0.40. Hemodynamically stable. Attempts made to wean patient to nasal cannula this a.m. unsuccessful, patient's O2 saturation in the 70s, patient placed back on BiPAP. Chest x-ray pending WBC count significantly diminished, leukocytosis resolved. Patient extremely anxious, Precedex infusion initiated. 11/16: Late entry note. Patient seen 10 AM. Overnight the patient converted to A. fib RVR, despite being on Cardizem 4 times a day and metoprolol twice a day- home medications, the patient received IV Cardizem followed by amiodarone infusion. Per report the patient became hypotensive, Cardizem discontinued. Amiodarone continued. Early this a.m. patient was resting comfortably A. fib rate controlled rate. The patient suddenly converted to A. fib RVR heart rate 150s-160s, acute hypoxemic respiratory failure, requiring intubation. The patient was intubated uneventfully and continues on amiodarone at 0.5 mg/hour, rate now controlled in conjunction with sedation. Cardiology consulted, his bone density technician is Dr. Reyes X-ray revealed lung consolidation improved, chest x- ray clear. Plan for CPAP trials in a.m.. 11/17: No acute events overnight. Patient had 1 short 8 beat run of V. tach last evening was self resolution, electrolytes within normal limits. The patient continues on amiodarone 0.5 mg/hr. CPAP trials initiated this a.m.. Tube feeds initiated at trickle feeds. Patient converted to sinus rhythm at 2 AM. 11/18 Patient remains sedated and intubated. Afebrile. 11/19 Patient was extubated yesterday however last night he was noted to choke on water provided by the family. Stat ABG demonstrated acute hypercapnic respiratory failure and was emergently intubated. Currently sedated and intubated. 11/20 Patient remains intubated on Fentanyl drip however he si awake and alert. Afebrile. 11/21 Patient is awake and alert placed on CPAP with PS:15, PEEP:5. Afebrile. 11/22 Patient remains intubated , did not tolerate CPAP trials yesterday as he became tachycardic and hypertensive. On no sedation awake and alert. 11/23 No events overnight, off sedation. 11/24: Resting comfortably on mechanical ventilation currently. Daily C Pap trials ongoing. 11/25: Sedated with Precedex, orally intubated on mechanical ventilation. Daily C Pap trials 11/26: Sedated with Precedex, orally intubated on mechanical ventilation. Got tachypneic with CPAP trial today hence placed back on PRVC. Spiked a fever, garcia cultures ordered. Went into A. fib with RVR subsequently for which being initiated on amiodarone bolus followed by drip and Lopressor 5 mg IV every 6 as needed for 11/27: This morning patient developed bradycardia followed by asystole for which she had 3 minutes CPR with ACLS protocol with return of spontaneous circulation. Post code chest x-ray revealed moderate to large right pneumothorax for which a right pigtail catheter was placed by me however despite airleak patient continue have moderate to large pneumothorax hence a second right sided 28 Vincentian chest tube was placed to -40 cm water pressure. Air leaks 1+ in both pigtail catheter and chest tube. Patient remains in a flutter currently. Dr. reyes evaluated patient as well following cardiac arrest. 11/28: Sedated, arousable, orally intubated on mechanical ventilation. Worsening renal function noted. MDR Pseudomonas in sputum. Right sided chest tube/ pigtail catheter with 1+ air leak in both. Subcutaneous emphysema noted over right side of face neck and right upper extremity. On 50% FiO2, PEEP +5. Poor urine output for which 500 cc and is bolus given earlier. Treated for hyperkalemia with Kayexalate PO, glucose insulin, calcium IV. 4/2: Remains sedated, arousable, orally intubated on mechanical ventilation. A. fib with RVR this morning for which she was loaded with amiodarone and initiated on amiodarone drip. Spiking fever 103.5. ID adjusting antibiotics. Stool for C. difficile ordered as he had some diarrhea today though received Kayexalate yesterday for hyperkalemia. Pigtail catheter on the right side appeared to be dislodged hence this was removed. 28 Vincentian chest tube in right pleural cavity repositioned. 11/30: Late entry note , patient seen at 12 noon. Creatinine continues to trend upward.Sedated but easily arousable. 12/01: Patient lightly sedated, following commands this a.m.. Creatinine noted increased, possible dialysis consideration for tomorrow. Patient to be diuresed today. CPAP trial initiated failed after 5 minutes, repeat this afternoon. 12/02: Patient placed on Lasix infusion throughout the night . No renal improvement,creatinine worsened today , plan for Vas-Cath placement and IHD today. This extensive discussion with patient and plans for tracheostomy and PEG tube placement secondary to failure to wean. 12/03: Late entry note, patient seen at 11 am. Patient scheduled for PEG placement today by Dr. Iglesias. Patient continues to fail CPAP trials. Plan for tracheostomy in the near future 12/04: Late entry note . Patient seen earlier this am. Overnight the patient became hypoglycemic, secondary to n.p.o. status, post PEG placement. D10 was initiated at 30 cc/hr. Tube feeds reinitiated Jevity 1.5, 24 hours post PEG tube placed, D10 discontinued. Patient remains on fentanyl at 100 mics/hour, lightly sedated. Patient denies pain answering by nodding head to yes and no questions. Tracheostomy planned for Wednesday12/06/[address] Calderon. 12/05: Remains intubated sedated with 50 mcg of fentanyl. On attempted CPAP trial patient remained dyspneic. Significant neuromuscular weakness persist. Chest x-ray shows small right apical pneumothorax. Tentatively plan for tracheostomy tomorrow. Dr. Calderon has already been consulted 12/06 Patient remains intubated for possible trach today. On Levophed 12 mics. Afebrile. 12/07 No events overnight. Trach was placed on hold yesterday as patient was on Levophed. He is down to 5 mics today. Afebrile. 12/08 Patient remains intubated on no sedation. CT brain this morning showed no acute process. Off Levophed. 12/09 Patient was placed back on Levophed 6 mics. Afebrile. Remains intubated on no sedation. 12/10 Patient remains intubated. On Neosyn 40 mics went into Afib with RVR HR 128 12/11 Patient remains intubated. Now on Neosyn 200 mics ( MAP 86mmHg). s/p HD yesterday with 1.5L removed. T:99.7 12/12 Patient remains sedated and intubated. Neosyn down 100 mics. For transfusion 2u PRBC and 1u PLT ( Hgb 6.7 and PLT 18 this morning) s/p HD with 3L removed yesterday. WBC is trending down. 12/13: More critically ill today, Bertin-Synephrine had to be increased to 150 mcg/ min, remains borderline hypotensive despite Bertin-Synephrine, currently in A. fib with RVR. Digoxin additional 0.25 mg IV push 1, start amiodarone infusion 12/14: Patient remains patient remains intubated currently on 50 mcg/min of Bertin- Synephrine. Remains on amiodarone infusion with heart rate better controlled 110-120. Plan for perc trach at bedside today 12/15: Remains on Bertin-Synephrine 50 mcg/min. On attempted CPAP patient had multiple PVCs and PACs. Potassium 2.7 getting replaced. Argatroban will be restarted 12/16: Patient is more lethargic, profoundly hypotensive Bertin-Synephrine increase to 300 mcg/min. Possibly septic shock. Currently on micafungin backside Levaquin and Flagyl. Add gram-positive coverage with vancomycin send blood cultures. Also will also change central line today-cleared by Dr. Vela to use subclavian access 12/17: Hypertensive encephalopathic Bertin-Synephrine at 100 mcg/min. new right subclavian central line placed left IJ will be sent for culture. Currently in A. fib with RVR heart rate varying from 110s-130. If persistent will give 2.5 metoprolol. AUGUSTA negative and argatroban discontinued. Start heparin subcu for DVT prophylaxis 12/18: Patient remains critically currently on 140 mcg/min of Bertin-Synephrine. Tachypneic with agonal appearing breathing on CPAP trial. Chest x-ray remains unchanged. Platelet count is 54 today, will hold subcu heparin. 12/19: Afebrile. Patient failed CPAP trials today. Patient underwent dialysis 3 L off today. Patient continues on vasopressor support with phenylephrine. Labs pending. Placed right chest tube to waterseal. 12/20: Continues to be critical currently on 200 mcg/min of Mwk-Mnfupjywhy-rmyke is increased from yesterday, remains hypotensive. Atrial fibrillation with RVR persist. Will restart IV amiodarone in an attempt to cardiovert due to hypotension. However I do not believe his hypotension is due to A. fib with RVR , hypotension is mostly from sepsis. There is no indication for DC cardioversion. New sputum culture shows Pseudomonas intermediately sensitive to Levaquin. Continue Zerbaxa and vanc, and micafungin per ID. DC Levaquin and metronidazole if okay with ID 12/21: No events over the night. Patient continues to require phenylephrine infusion, currently at 120 mcg/minute. Patient is awake, following some commands. T-max of 99.7. Minimal urine output. Right-sided chest tube to waterseal. 12/22: No events over the night. Patient on pressure support of 18 with good tidal volumes but low respiratory rate. He is awake, weak, tracking. present at bedside. Right-sided chest tube to waterseal. Small residual right pneumothorax on chest x-ray. 12/23: No events over the night. T-max of 98.8. Slight increase in subcutaneous emphysema over the right side. On morning chest x-ray pneumothorax , chest tube placed back on suction. 12/24: No events over the night. Subcutaneous emphysema improving. Morning chest x-ray still shows a very small residual right-sided pneumothorax. Right- sided chest tube on suction with small air leak. Patient is awake, tracking. present at bedside. 12/25: He was weaned off phenylephrine yesterday and he remained off so far. Had HD done this a.m. 3.2 L fluid removal. Subcutaneous emphysema is improved, right-sided chest tube remains on suction with no air leak. Morning chest x- ray reviewed, no change compared to yesterday. Afebrile over the night with a T -max of 99.5 over the last 24 hours. 12/26: No events over the night. Patient remains off pressors. Morning chest x- ray reviewed, decrease in size of right apical pneumothorax. Chest tube has no air leak and remains on suction. Patient did not tolerate morning CPAP due to episodes of apnea. Slightly improved in subcutaneous emphysema. present at bedside. Objective Vital Signs Date Time Temp Pulse Resp B/P (MAP) Pulse Ox O2 Delivery O2 Flow Rate FiO2 12/26/17 10:00 87 12/26/17 08:00 99.8 18 121/62 (81) 100 12/26/17 08:00 40 12/23/17 23:06 Ventilator Intake and Output 12/26/17 12/26/17 12/27/17 08:00 16:00 00:00 Intake Total 605 ml Output Total 5 ml Balance 600 ml Result Diagram: 12/26/17 0451 12/26/17 0451 Other Results Laboratory Tests Test 12/26/17 05:38 Blood Gas Puncture Site CENTRAL LINE Blood Gas Patient Temperature 98.6 Venous Blood pH 7.31 (7.360-7.400) Venous Blood Partial Pressure CO2 59 mmHg (44-48) Venous Blood Partial Pressure O2 35 mmHg (35-40) Venous Blood HCO3 29 mmol/L (22-26) Venous Blood Oxygen Saturation 60 % (70-76) Venous Blood Oxygen Content 7.0 Vol % (9.0-17.0) Venous Blood Base Excess 3.2 mmol/L (-2-2) Oxygen Delivery Device VENTILATOR Blood Gas Ventilator Setting PRVC/AC Blood Gas Inspired Oxygen 30 % Imaging Last 24 hours Impressions Chest X-Ray 12/26/17 0600 Signed Impressions: Service Date/Time: Tuesday, December 26, 2017 04:58 - CONCLUSION: 1. Decreased size right apical pneumothorax. 2. Stable patchy infiltrates at the left lung base. Shaq Eisenberg MD Last 24 hours Impressions Chest X-Ray 12/23/17 0600 Signed Impressions: Service Date/Time: November 04:04 - CONCLUSION: 1. Right- sided chest tube without pneumothorax. 2. Left basilar density, unchanged. Nikunj Oneil MD Last 24 hours Impressions Chest X-Ray 12/22/17 0600 Signed Impressions: Service Date/Time: Friday, December 22, 2017 04:38 - CONCLUSION: 1. Right chest tube with tiny right pneumothorax. Right central lines remain unchanged. Slight improvement in left basilar airspace disease with small effusions. Tera Gibson MD Last Impressions Chest X-Ray 12/11/17 0000 Signed Impressions: Service Date/Time: Monday, December 11, 2017 10:51 - CONCLUSION: Stable chest with moderate subcutaneous emphysema and no pneumothorax. Torin Dennison MD FACR Liver Ultrasound 12/09/17 0000 Signed Impressions: Service Date/Time: November 19:18 - CONCLUSION: 1. Limited suboptimal examination with only a small portion of the liver visualized. 2. The gallbladder and common bile duct could not be visualized. The pancreas is not evaluated. 3. Left pleural effusion. Liang Jimenez MD Head CT 12/08/17 0000 Signed Impressions: Service Date/Time: Friday, December 08, 2017 08:25 - CONCLUSION: Negative for acute process. Torin Dennison MD FACR Catheter Placement X-Ray 12/02/17 0000 Signed Impressions: Service Date/Time: November 10:47 - CONCLUSION: Uncomplicated right internal jugular Vas-Cath placement as above. incidental note is made of subcutaneous emphysema within the chest wall and neck Con Dennison MD Lower Extremity Ultrasound 11/29/17 0000 Signed Impressions: Service Date/Time: Wednesday, November 29, 2017 22:02 - CONCLUSION: Normal examination. Abdiel Mcintyre MD Renal Ultrasound 11/28/17 0000 Signed Impressions: Service Date/Time: Tuesday, November 28, 2017 20:30 - CONCLUSION: Nondiagnostic exam. Rashad Bose MD Objective Remarks General - elderly gentleman, trached, on ventilator, weak, ill-appearing HEENT - pupils equal, reactive, sclerae anicteric, unable to appreciate JVD, trach in place, RIJ HD catheter - site clean, right subclavian central line - site is clean CV - irregular S1, S2, no murmurs Chest - decreased air entry at bases b/l, coarse breath sounds bilateral, no wheezes, right-sided chest tube on suction Abdomen - soft, non-tender, distended, BS present, PEG tube in place Skin - cyanosis over bilateral toes, unchanged; crepitus on palpation over the upper chest and neck, improving Extremities - warm, 3+ pitting edema, + peripheral pulses Neuro - lethargic but arousable A/P Problem List: (1) A-fib ICD Code: I48.91 - Unspecified atrial fibrillation (2) CHF (congestive heart failure) ICD Code: I50.9 - Heart failure, unspecified Status: Chronic (3) HTN (hypertension) ICD Code: I10 - Essential (primary) hypertension Status: Chronic (4) ADRIAN (obstructive sleep apnea) ICD Code: G47.33 - Obstructive sleep apnea (adult) (pediatric) Status: Chronic (5) MRSA pneumonia ICD Code: J15.212 - Pneumonia due to Methicillin resistant Staphylococcus aureus Status: Acute (6) Diabetes mellitus type 2, insulin dependent ICD Code: E11.9 - Type 2 diabetes mellitus without complications; Z79.4 - terminal system operator (current) use of insulin Status: Chronic (7) COPD (chronic obstructive pulmonary disease) ICD Code: J44.9 - Chronic obstructive pulmonary disease, unspecified Status: Acute (8) Respiratory distress ICD Code: R06.03 - Acute respiratory distress Status: Acute (9) Leukocytosis ICD Code: D72.829 - Elevated white blood cell count, unspecified Status: Acute (10) Lung consolidation ICD Code: J18.1 - Lobar pneumonia, unspecified organism Status: Acute (11) Anxiety ICD Code: F41.9 - Anxiety disorder, unspecified Status: Chronic (12) Failure to wean from mechanical ventilation ICD Code: Z99.11 - Dependence on respirator [ventilator] status Assessment and Plan Neurologic: Encephalopathy, metabolic -unchanged Anxiety Neuro checks per ICU protocol EEG: Mild- mod encephalopathy. Neuro- Dr. Anne. CT brain 12/08 no acute process Not on sedation Respiratory: Acute respiratory failure on mechanical ventilation- extubated and reintubated night of 11/18 after he was noted to choke on water provided by family COPD exacerbation -resolved Pneumonia-MRSA, MDR Pseudomonas Right sided pneumothorax following CPR status post pigtail catheter/chest tube placement 11/27 Obstructive sleep apnea Home O2 dependency Continue with vent support keep sats >90%. s/p Trach 12/14/17 Continue PRVC, decrease tidal volume to 500 due to elevated PIP. Peak airway pressure to 30 post ventilator adjustment Daily CPAP trials as tolerated Bronchodilators Pulmonology - Dr Price Right sided chest tube placed on suction Daily chest x-ray Cardiovascular: Shock most likely septic -continues to require phenylephrine infusion Cardiac arrest - asystole, status post CPR 11/27 A. fib RVR History of CHF CAD Peripheral cyanosis/early gangrene of the toes Phenylephrine remains off for now Continue digoxin every 48 hours and amiodarone Check digoxin level on 12/26 Cardizem, Eliquis and atorvastatin on hold Slow hydrocortisone taper Cardiology - Dr. Reyes. Echo showed EF 65-70% Renal: DAVID Monitor renal function, electrolytes replacement as needed Nephrology Dr. Ragland. 12/02 Vas-Cath placed for initiation of IHD HD per nephrology FEN/GI: Elevated LFT's GERD Monitor LFT's, US liver on 12/06: non diagnostic study US liver 12/09 limited study. Hepatitis profile is negative On tube feeds On Nepro @40cc/hr. Pepcid for GI prophylaxis 12/03 PEG tube placement ID: Pneumonia MRSA, MDR Pseudomonas Leukocytosis Septic shock Continue antibiotics per ID Stool for C. difficile negative on 11/29 and 12/06 Pertinent cultures 12/14 Urine yeast 12/09 BC: NGTD 12/08 Urine cx: C. Glabrata 12/06, 12/16 Sputum cx: Pseudomonas MDR 11/16 sputum cultures- Kleb pneumonia 11/26 sputum cultures growing multidrug resistant Pseudomonas/MRSA 11/28 urine culture growing yeast 11/26 blood culture neg Heme Thrombocytopenia HIT antibody positive AUGUSTA negative. Argatroban discontinued by Dr. Quintana. Endocrine: Glucose monitoring per ICU protocol -- SSI(high scale) Levemir 5u Q12 Msk: Polyneuropathy of Critical Illness Continue PT, OT Prophylaxis: GI Prophylaxis Famotidine BID -- SCDs Holding home dose Eliquis 5 mg BID on 11/27 in view of thrombocytopenia and renal failure Argatroban discontinued HIT AUGUSTA negative Started heparin subcu every 12 hours 12/17/2017, hold due to platelet count being 53, restarted on 12/20 Lines: Left IJ central line placed 11/29-DCd 12/17. New Left central line subclavian placed 12/16/17 Right IJ vascath 12/23 Palliative care is following Patient remains critically ill requiring mechanical ventilation and vasopressors and he is at very high risk for further decompensation and . Discussed with present at bedside. Patient remains off pressors will ask [facility] to reevaluate Problem Qualifiers (1) COPD (chronic obstructive pulmonary disease): Qualified Codes: J44.9 - Chronic obstructive pulmonary disease, unspecified (2) Leukocytosis: Qualified Codes: D72.829 - Elevated white blood cell count, unspecified Nick Green MD Dec 26, 2017 11:39
[2017-12-26] MEDS: RESP: ALBUTEROL 2.5 MG/IPRATROPIUM 0.5 MG NEB (PRN) INH (19:28)
[2017-12-26] MEDS: SODIUM CHLORIDE 0.9% FLUSH 10 ML FLUSH IV FLUSH PRN (20:57)
[2017-12-27] VITALS (19 sets, daily range): BP systolic 78–103; BP diastolic 50–60; PULSE 92–106; RESP 22–31; TEMP 98.3–99.3; O2SAT 98–100
[2017-12-27] MEDS: INSULIN ASPART SUPPLEMENTAL SCALE SQ SCH ×5 (04:00→20:40)
--- NOTE | 2017-12-27 04:19 | RADRPT ---
EXAM DATE/TIME: 12/27/2017 03:00 [place] COMPARISON: CHEST SINGLE AP, December 26, 2017, 4:58. INDICATIONS : Shortness of breath, possible pulmonary disease. MEDICAL HISTORY : Chronic obstructive pulmonary disease. Cardiovascular disease. SURGICAL HISTORY : Tracheostomy ENCOUNTER: Subsequent ACUITY: 1 month PAIN SCORE: Non-responsive. LOCATION: Bilateral chest FINDINGS: A single view of the chest demonstrates stable position of the right sided surgical thoracostomy tube . No appreciable pneumothorax on the current exam. The tissue emphysematous changes are identified ab out both hemithoraces. Life support tubes including a tracheostomy, right IJ and right subclavian luis a tral venous catheters are all stable in position. Stable left basilar consolidation and possible asso ciated effusion. Right lung is grossly clear. Heart size is normal. CONCLUSION: 1. Stable left basilar consolidation with possible associated effusion. 2. Right-sided thoracostomy tube. No obvious pneumothorax the current study. Right lung is clear. 3. Stable position of life support tubes as detailed above. Stable bilateral deep tissue emphysematou s changes about the chest. Omid Traore MD on December 27, 2017 at 4:14 Board Certified Radiologist. This report was verified electronically.
[2017-12-27] MEDS: metroNIDAZOLE 500 MG TAB PO SCH ×3 (05:05→18:48)
[2017-12-27] MEDS: CHLORHEXIDINE GLUCONATE 2 % 1 PACK (2 CLOTHS) TOP SCH (05:05)
[2017-12-27 05:42] LABS: AUTOMATED NEUTROPHIL # 10.2 TH/MM3 (1.8-7.7); BASOPHIL % 0.3 % (0.0-2.0); HEMATOCRIT 30.5 % (39.0-51.0); HEMOGLOBIN 9.5 GM/DL (13.0-17.0); LYMPH % 7.5 % (9.0-44.0); LYMPHOCYTE # 0.9 TH/MM3 (1.0-4.8); MEAN CELL VOLUME 91.6 FL (80.0-100.0); MEAN CORPUSCULAR HEMOGLOBIN 28.4 PG (27.0-34.0); MEAN CORPUSCULAR HGB CONC 31.1 % (32.0-36.0); MEAN PLATELET VOLUME 9.2 FL (7.0-11.0); MONO % 6.2 % (0.0-8.0); MONOCYTE # 0.7 TH/MM3 (0-0.9); PLATELET COUNT 268 TH/MM3 (150-450); RED BLOOD COUNT 3.33 MIL/MM3 (4.50-5.90); RED CELL DISTRIBUTION WIDTH 22.5 % (11.6-17.2); WHITE BLOOD COUNT 11.9 TH/MM3 (4.0-11.0)
[2017-12-27 06:05] LABS: ALBUMIN 3.5 GM/DL (3.4-5.0); ALKALINE PHOSPHATASE 232 U/L (45-117); ALT (GPT) 17 U/L (12-78); AST (GOT) 16 U/L (15-37); BICARBONATE 28.7 MEQ/L (21.0-32.0); BLOOD UREA NITROGEN 83 MG/DL (7-18); CALCIUM 8.1 MG/DL (8.5-10.1); CHLORIDE 98 MEQ/L (98-107); CREATININE 2.49 MG/DL (0.60-1.30); GLOMERULAR FILTRATION RATE 25 ML/MIN (>89); GLUCOSE,RANDOM 155 MG/DL (74-106); MAGNESIUM 2.1 MG/DL (1.5-2.5); PHOSPHORUS 2.4 MG/DL (2.5-4.9); SODIUM (NA) 138 MEQ/L (136-145); TOTAL BILIRUBIN ADULT 0.6 MG/DL (0.2-1.0); TOTAL PROTEIN 5.5 GM/DL (6.4-8.2)
[2017-12-27 07:02] LABS: BANDS 6 % (0-6); CORRECTED NUCLEATED RBC 1 /100 WBC (0-0); LYMPHOCYTES 8 % (9-44); METAMYELOCYTES 2 % (0-1); MONOCYTES 5 % (0-8); MYELOCYTES 3 % (0-0); NEUTROPHIL # MANUAL DIFF 10.4 TH/MM3 (1.8-7.7); NUCLEATED RED BLOOD CELL 1 (0-0); POLYS (SEG NEUTROPHILS) 76 % (16-70)
[2017-12-27 07:03] LABS: OVALOCYTES 1+ (NORMAL); POLYCHROMASIA 2.6 % (0.0-1.9)
[2017-12-27] MEDS: BUDESONIDE-FORMOTEROL 160/4.5 MCG INHALER INH SCH ×2 (07:19→20:41)
[2017-12-27] MEDS: RESP: TOBRAMYCIN SULFATE 300 MG/5 ML NEB NEB SCH (07:19)
[2017-12-27] MEDS: CHLORHEXIDINE 0.12% (ORAL KIT) 15 ML CUP MT SCH ×2 (09:24→20:40)
--- NOTE | 2017-12-27 09:24 | HHI.NPPN ---
Subjective Renal Failure: Acute History of Present Illness This is a 77-year-old male with past medical history of ischemic heart disease, atrial fibrillation, congestive heart failure, possibly diastolic dysfunction, diabetes mellitus, chronic obstructive pulmonary disease, was admitted on 11/14 with respiratory distress. Nephrology was called to see the patient because of elevated BUN and creatinine. The patient has creatinine of 1.1 on admission, which increased after 2 or 3 to 1.3-1.5 and for the last 2 days, it has been going up and now it is 2.8. The patient was initially diagnosed with pneumonia and was started on antibiotics and then later on, patient developed respiratory failure and was intubated. He was also found to have asystole on 11/27 for 3 minutes and CPR was done with ACLS protocol, and it was shown that he has large right-sided pneumothorax. The blood pressure has been stable and there are no significant hypotensive episodes documented. Most of the history was taken from he patient' s chart. Additional Remarks Remains intubated with trach. Blood pressure is stable off pressors. (Adeola Velez) Review of Systems General General Remarks Unable to do ROS as patient is intubated (Adeola Velez) Objective Data Data Vital Signs Date Time Temp Pulse Resp B/P (MAP) Pulse Ox O2 Delivery O2 Flow Rate FiO2 12/27/17 08:57 100 35 12/27/17 07:26 100 35 12/27/17 06:00 106 12/27/17 04:50 100 35 12/27/17 04:00 98.5 94 23 85/50 (62) 100 12/27/17 04:00 94 12/27/17 04:00 35 12/27/17 02:00 99 12/27/17 01:59 100 35 12/27/17 00:00 98.6 92 22 103/55 (71) 100 12/27/17 00:00 92 12/27/17 00:00 35 12/26/17 22:38 100 35 12/26/17 22:00 88 12/26/17 21:00 96 12/26/17 20:00 35 12/26/17 20:00 98 12/26/17 20:00 98.6 98 22 99/55 (70) 100 12/26/17 19:31 100 35 12/26/17 18:00 108 12/26/17 17:21 100 35 12/26/17 16:00 100 12/26/17 16:00 35 12/26/17 16:00 98.9 100 34 109/57 (74) 100 12/26/17 14:00 98 12/26/17 12:00 30 12/26/17 12:00 104 12/26/17 12:00 98.8 91 23 107/57 (74) 100 12/26/17 11:58 100 35 12/26/17 10:00 87 12/26/17 09:50 40 (Adeola Velez) -: 12/27/17 0430 12/27/17 0430 Imaging Last Impressions Chest X-Ray 12/27/17 0600 Signed Impressions: Service Date/Time: Wednesday, December 27, 2017 03:00 - CONCLUSION: 1. Stable left basilar consolidation with possible associated effusion. 2. Right-sided thoracostomy tube. No obvious pneumothorax the current study. Right lung is clear. 3. Stable position of life support tubes as detailed above. Stable bilateral deep tissue emphysematous changes about the chest. Omid Traore MD Catheter Placement X-Ray 12/23/17 0000 Signed Impressions: Service Date/Time: November 16:21 - CONCLUSION: Uncomplicated line exchange as above. 15 cm catheter was exchanged for a 24 cm catheter. Omid Traore MD Liver Ultrasound 12/09/17 0000 Signed Impressions: Service Date/Time: November 19:18 - CONCLUSION: 1. Limited suboptimal examination with only a small portion of the liver visualized. 2. The gallbladder and common bile duct could not be visualized. The pancreas is not evaluated. 3. Left pleural effusion. Liang Jimenez MD Head CT 12/08/17 0000 Signed Impressions: Service Date/Time: Friday, December 08, 2017 08:25 - CONCLUSION: Negative for acute process. Torin Dennison MD FACR Lower Extremity Ultrasound 11/29/17 0000 Signed Impressions: Service Date/Time: Wednesday, November 29, 2017 22:02 - CONCLUSION: Normal examination. Abdiel Mcintyre MD Renal Ultrasound 11/28/17 0000 Signed Impressions: Service Date/Time: Tuesday, November 28, 2017 20:30 - CONCLUSION: Nondiagnostic exam. Rashad Bose MD Tubes & Lines: Vas-Cath, Hay[place] (Adeola Velez) Physical Exam General Appearance: Obese Appearance Remarks trached (Adeola Velez) Eyes Eye Exam: Pupils Equal (Adeola Velez) Pulmonary Resp Exam: Breath Sounds Equal Resp Remarks Sub Q emphysema Intubated CT right chest wall (Adeola Velez) Cardiology CV Exam: Regular (Adeola Velez) Gastrointestinal/Abdomen GI Exam: Soft, Non-Tender, Distended (Adeola Velez) Genitourinary Exam: Flank Non-Tender (Adeola Velez) Integumentary Skin Exam: Clear, Warm (Adeola Velez) Extremeties Extremities Exam: Moderate Edema (Adeola Velez) Neurologic Neuro Exam: Awake (Adeola Velez) Assessment/Plan Assessment Summary: DAVID/Acute Renal Failure Problem List: (1) DAVID (acute kidney injury) ICD Codes: N17.9 - Acute kidney failure, unspecified Plan: Acute kidney injury most likely related to acute tubular necrosis, either from the infection or related to his cardiac status and cardiac arrest. Creatinine is stable but minimal urinary output Continues on matilda matilda- synephrine for blood pressure support blood pressure improving Plan Remains anuric, dependent on HD Plan next HD Wednesday, continue TTS HD. Continue for follow UOP and BMP Avoid nephrotoxins as possible. Mannitol and Albumin with HD. Epogen with dialysis (2) Respiratory failure ICD Codes: J96.90 - Respiratory failure, unspecified, unspecified whether with hypoxia or hypercapnia Plan: Intubated weaning per pad machine feeder. (3) Thrombocytopenia ICD Codes: D69.6 - Thrombocytopenia, unspecified Plan: Hematology has been consulted and following (4) Anemia ICD Codes: D64.9 - Anemia, unspecified Plan: has received blood transfusion. (Adeola Velez) Problem List: (1) DAVID (acute kidney injury) ICD Codes: N17.9 - Acute kidney failure, unspecified Plan: Acute kidney injury most likely related to acute tubular necrosis, either from the infection or related to his cardiac status and cardiac arrest. Creatinine is stable but minimal urinary output Continues on matilda matilda- synephrine for blood pressure support blood pressure improving Plan Remains anuric, dependent on HD Plan next HD Wednesday, continue TTS HD. Continue for follow UOP and BMP Avoid nephrotoxins as possible. Mannitol and Albumin with HD. Epogen with dialysis. Patient seen and examined, agree with above. No improvement in the renal function, HD to continue for now. (2) Respiratory failure ICD Codes: J96.90 - Respiratory failure, unspecified, unspecified whether with hypoxia or hypercapnia Plan: Intubated weaning per pad machine feeder. (3) Thrombocytopenia ICD Codes: D69.6 - Thrombocytopenia, unspecified Plan: Hematology has been consulted and following (4) Anemia ICD Codes: D64.9 - Anemia, unspecified Plan: has received blood transfusion. (America Vela MD) Adeola Velez Dec 27, 2017 09:24 America Vela MD December 28, 2017 16:25
[2017-12-27] MEDS: FAMOTIDINE 20 MG TAB PO SCH ×2 (09:25→20:41)
[2017-12-27] MEDS: HEPARIN SODIUM - SQ 10,000 UNITS/ML VIAL SQ SCH ×2 (09:25→22:34)
[2017-12-27] MEDS: LANTHANUM CARBONATE 500 MG CHEWABLE TABLET CHEW SCH ×3 (09:25→18:48)
[2017-12-27] MEDS: CALCITRIOL 0.25 MCG CAP PO SCH (09:25)
[2017-12-27] MEDS: AMIODARONE 200 MG TAB PO SCH ×2 (09:25→20:41)
[2017-12-27] MEDS: DOCUSATE SODIUM 50 MG/SENNA 8.6 MG TAB PO SCH ×2 (09:25→20:41)
[2017-12-27] MEDS: SODIUM CHLORIDE 0.9% FLUSH 10 ML FLUSH IV FLUSH SCH ×2 (09:26→20:41)
[2017-12-27] MEDS: INSULIN DETEMIR 100 UNITS/ML VIAL SQ SCH ×2 (09:26→20:41)
--- NOTE | 2017-12-27 11:41 | HHI.CCPN ---
Subjective Remarks/Hospital Course This is a 77-year-old male with a medical history significant for COPD, CHF, A. fib, diabetes, that presented to emergency department from [facility] for evaluation of worsening shortness of breath over the last 3 days. The patient was been given Solu-Medrol 125 mg and 2 albuterol treatments enroute to ED. Upon presentation to the ED the patient was on a nonrebreather. He was tachypneic and tachycardic. Patient's medical history significant for MRSA pneumonia previously admitted on 10/27/16 for approximately 12 days at [facility]. The patient is normally on 2.5 L/m nasal cannula O2 home dependency, and he lives with ( normally) a PCO2 in the 80s according to his . Patient was then discharged to [facility], and then transferred to [facility] for rehabilitation. He has been on an unknown antibiotic per the family and steroids for the last 3 days. Laboratory and imaging studies were performed with noted elevation in CO2 The patient was given empiric antibiotics in the ED and placed on BiPAP. Critical care medicine was consulted. Subjective: 11/15: Patient maintained on BiPAP throughout the night O2 saturations 97-98% on FiO2 of 0.40. Hemodynamically stable. Attempts made to wean patient to nasal cannula this a.m. unsuccessful, patient's O2 saturation in the 70s, patient placed back on BiPAP. Chest x-ray pending WBC count significantly diminished, leukocytosis resolved. Patient extremely anxious, Precedex infusion initiated. 11/16: Late entry note. Patient seen 10 AM. Overnight the patient converted to A. fib RVR, despite being on Cardizem 4 times a day and metoprolol twice a day- home medications, the patient received IV Cardizem followed by amiodarone infusion. Per report the patient became hypotensive, Cardizem discontinued. Amiodarone continued. Early this a.m. patient was resting comfortably A. fib rate controlled rate. The patient suddenly converted to A. fib RVR heart rate 150s-160s, acute hypoxemic respiratory failure, requiring intubation. The patient was intubated uneventfully and continues on amiodarone at 0.5 mg/hour, rate now controlled in conjunction with sedation. 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 Parker X-ray revealed lung consolidation improved, chest x- ray clear. Plan for CPAP trials in a.m.. 11/17: No acute events overnight. Patient had 1 short 8 beat run of V. tach last evening was self resolution, electrolytes within normal limits. The patient continues on amiodarone 0.5 mg/hr. CPAP trials initiated this a.m.. Tube feeds initiated at trickle feeds. Patient converted to sinus rhythm at 2 AM. 11/18 Patient remains sedated and intubated. Afebrile. 11/19 Patient was extubated yesterday however last night he was noted to choke on water provided by the family. Stat ABG demonstrated acute hypercapnic respiratory failure and was emergently intubated. Currently sedated and intubated. 11/20 Patient remains intubated on Fentanyl drip however he si awake and alert. Afebrile. 11/21 Patient is awake and alert placed on CPAP with PS:15, PEEP:5. Afebrile. 11/22 Patient remains intubated , did not tolerate CPAP trials yesterday as he became tachycardic and hypertensive. On no sedation awake and alert. 11/23 No events overnight, off sedation. 11/24: Resting comfortably on mechanical ventilation currently. Daily C Pap trials ongoing. 11/25: Sedated with Precedex, orally intubated on mechanical ventilation. Daily C Pap trials 11/26: Sedated with Precedex, orally intubated on mechanical ventilation. Got tachypneic with CPAP trial today hence placed back on PRVC. Spiked a fever, garcia cultures ordered. Went into A. fib with RVR subsequently for which being initiated on amiodarone bolus followed by drip and Lopressor 5 mg IV every 6 as needed for 11/27: This morning patient developed bradycardia followed by asystole for which she had 3 minutes CPR with ACLS protocol with return of spontaneous circulation. Post code chest x-ray revealed moderate to large right pneumothorax for which a right pigtail catheter was placed by me however despite airleak patient continue have moderate to large pneumothorax hence a second right sided 28 Sudanese chest tube was placed to -40 cm water pressure. Air leaks 1+ in both pigtail catheter and chest tube. Patient remains in a flutter currently. Dr. parker evaluated patient as well following cardiac arrest. 11/28: Sedated, arousable, orally intubated on mechanical ventilation. Worsening renal function noted. MDR Pseudomonas in sputum. Right sided chest tube/ pigtail catheter with 1+ air leak in both. Subcutaneous emphysema noted over right side of face neck and right upper extremity. On 50% FiO2, PEEP +5. Poor urine output for which 500 cc and is bolus given earlier. Treated for hyperkalemia with Kayexalate PO, glucose insulin, calcium IV. 4/2: Remains sedated, arousable, orally intubated on mechanical ventilation. A. fib with RVR this morning for which she was loaded with amiodarone and initiated on amiodarone drip. Spiking fever 103.5. ID adjusting antibiotics. Stool for C. difficile ordered as he had some diarrhea today though received Kayexalate yesterday for hyperkalemia. Pigtail catheter on the right side appeared to be dislodged hence this was removed. 28 Sudanese chest tube in right pleural cavity repositioned. 11/30: Late entry note , patient seen at 12 noon. Creatinine continues to trend upward.Sedated but easily arousable. 12/01: Patient lightly sedated, following commands this a.m.. Creatinine noted increased, possible dialysis consideration for tomorrow. Patient to be diuresed today. CPAP trial initiated failed after 5 minutes, repeat this afternoon. 12/02: Patient placed on Lasix infusion throughout the night . No renal improvement,creatinine worsened today , plan for Vas-Cath placement and IHD today. This extensive discussion with patient and plans for tracheostomy and PEG tube placement secondary to failure to wean. 12/03: Late entry note, patient seen at 11 am. Patient scheduled for PEG placement today by Dr. Iglesias. Patient continues to fail CPAP trials. Plan for tracheostomy in the near future 12/04: Late entry note . Patient seen earlier this am. Overnight the patient became hypoglycemic, secondary to n.p.o. status, post PEG placement. D10 was initiated at 30 cc/hr. Tube feeds reinitiated Jevity 1.5, 24 hours post PEG tube placed, D10 discontinued. Patient remains on fentanyl at 100 mics/hour, lightly sedated. Patient denies pain answering by nodding head to yes and no questions. Tracheostomy planned for Wednesday12/06/[address] Calderon. 12/05: Remains intubated sedated with 50 mcg of fentanyl. On attempted CPAP trial patient remained dyspneic. Significant neuromuscular weakness persist. Chest x-ray shows small right apical pneumothorax. Tentatively plan for tracheostomy tomorrow. Dr. Calderon has already been consulted 12/06 Patient remains intubated for possible trach today. On Levophed 12 mics. Afebrile. 12/07 No events overnight. Trach was placed on hold yesterday as patient was on Levophed. He is down to 5 mics today. Afebrile. 12/08 Patient remains intubated on no sedation. CT brain this morning showed no acute process. Off Levophed. 12/09 Patient was placed back on Levophed 6 mics. Afebrile. Remains intubated on no sedation. 12/10 Patient remains intubated. On Neosyn 40 mics went into Afib with RVR HR 128 12/11 Patient remains intubated. Now on Neosyn 200 mics ( MAP 86mmHg). s/p HD yesterday with 1.5L removed. T:99.7 12/12 Patient remains sedated and intubated. Neosyn down 100 mics. For transfusion 2u PRBC and 1u PLT ( Hgb 6.7 and PLT 18 this morning) s/p HD with 3L removed yesterday. WBC is trending down. 12/13: More critically ill today, Bertin-Synephrine had to be increased to 150 mcg/ min, remains borderline hypotensive despite Bertin-Synephrine, currently in A. fib with RVR. Digoxin additional 0.25 mg IV push 1, start amiodarone infusion 12/14: Patient remains patient remains intubated currently on 50 mcg/min of Bertin- Synephrine. Remains on amiodarone infusion with heart rate better controlled 110-120. Plan for perc trach at bedside today 12/15: Remains on Bertin-Synephrine 50 mcg/min. On attempted CPAP patient had multiple PVCs and PACs. Potassium 2.7 getting replaced. Argatroban will be restarted 12/16: Patient is more lethargic, profoundly hypotensive Bertin-Synephrine increase to 300 mcg/min. Possibly septic shock. Currently on micafungin backside Levaquin and Flagyl. Add gram-positive coverage with vancomycin send blood cultures. Also will also change central line today-cleared by Dr. Vela to use subclavian access 12/17: Hypertensive encephalopathic Bertin-Synephrine at 100 mcg/min. new right subclavian central line placed left IJ will be sent for culture. Currently in A. fib with RVR heart rate varying from 110s-130. If persistent will give 2.5 metoprolol. AUGUSTA negative and argatroban discontinued. Start heparin subcu for DVT prophylaxis 12/18: Patient remains critically currently on 140 mcg/min of Bertin-Synephrine. Tachypneic with agonal appearing breathing on CPAP trial. Chest x-ray remains unchanged. Platelet count is 54 today, will hold subcu heparin. 12/19: Afebrile. Patient failed CPAP trials today. Patient underwent dialysis 3 L off today. Patient continues on vasopressor support with phenylephrine. Labs pending. Placed right chest tube to waterseal. 12/20: Continues to be critical currently on 200 mcg/min of Pix-[id number]-zcdzx is increased from yesterday, remains hypotensive. Atrial fibrillation with RVR persist. Will restart IV amiodarone in an attempt to cardiovert due to hypotension. However I do not believe his hypotension is due to A. fib with RVR , hypotension is mostly from sepsis. There is no indication for DC cardioversion. New sputum culture shows Pseudomonas intermediately sensitive to Levaquin. Continue Zerbaxa and vanc, and micafungin per ID. DC Levaquin and metronidazole if okay with ID 12/21: No events over the night. Patient continues to require phenylephrine infusion, currently at 120 mcg/minute. Patient is awake, following some commands. T-max of 99.7. Minimal urine output. Right-sided chest tube to waterseal. 12/22: No events over the night. Patient on pressure support of 18 with good tidal volumes but low respiratory rate. He is awake, weak, tracking. present at bedside. Right-sided chest tube to waterseal. Small residual right pneumothorax on chest x-ray. 12/23: No events over the night. T-max of 98.8. Slight increase in subcutaneous emphysema over the right side. On morning chest x-ray pneumothorax , chest tube placed back on suction. 12/24: No events over the night. Subcutaneous emphysema improving. Morning chest x-ray still shows a very small residual right-sided pneumothorax. Right- sided chest tube on suction with small air leak. Patient is awake, tracking. present at bedside. 12/25: He was weaned off phenylephrine yesterday and he remained off so far. Had HD done this a.m. 3.2 L fluid removal. Subcutaneous emphysema is improved, right-sided chest tube remains on suction with no air leak. Morning chest x- ray reviewed, no change compared to yesterday. Afebrile over the night with a T -max of 99.5 over the last 24 hours. 12/26: No events over the night. Patient remains off pressors. Morning chest x- ray reviewed, decrease in size of right apical pneumothorax. Chest tube has no air leak and remains on suction. Patient did not tolerate morning CPAP due to episodes of apnea. Slightly improved in subcutaneous emphysema. present at bedside. 12/27: No events over the night. Patient did not tolerate CPAP trial this morning. Morning chest x-ray reviewed, no clear evidence of pneumothorax. Chest tube remains on suction, decreased to -20, no auto PEEP. Subcutaneous emphysema is about the same. T-max of 99.8. Objective Vital Signs Date Time Temp Pulse Resp B/P (MAP) Pulse Ox O2 Delivery O2 Flow Rate FiO2 12/27/17 11:34 100 35 12/27/17 08:00 102 12/27/17 04:00 98.5 23 85/50 (62) 12/23/17 23:06 Ventilator Intake and Output 12/27/17 12/27/17 12/27/17 07:59 15:59 23:59 Intake Total 598 ml Output Total 0 ml Balance 598 ml Result Diagram: 12/27/17 0430 12/27/17 0430 Other Results Laboratory Tests Test 12/27/17 05:35 Blood Gas Puncture Site CENTRAL LINE Blood Gas Patient Temperature 98.6 Venous Blood pH 7.28 (7.360-7.400) Venous Blood Partial Pressure CO2 60 mmHg (44-48) Venous Blood Partial Pressure O2 39 mmHg (35-40) Venous Blood HCO3 27 mmol/L (22-26) Venous Blood Oxygen Saturation 65 % (70-76) Venous Blood Oxygen Content 8.7 Vol % (9.0-17.0) Venous Blood Base Excess 1.3 mmol/L (-2-2) Oxygen Delivery Device VENTILATOR Blood Gas Ventilator Setting PRVC/AC Blood Gas Inspired Oxygen 35 % Imaging Last 24 hours Impressions Chest X-Ray 12/27/17 06 Signed Impressions: Service Date/Time: Wednesday, December 27, 2017 03:00 - CONCLUSION: 1. Stable left basilar consolidation with possible associated effusion. 2. Right-sided thoracostomy tube. No obvious pneumothorax the current study. Right lung is clear. 3. Stable position of life support tubes as detailed above. Stable bilateral deep tissue emphysematous changes about the chest. Omid Traore MD Last 24 hours Impressions Chest X-Ray 12/26/17599 Signed Impressions: Service Date/Time: Tuesday, December 26, 2017 04:58 - CONCLUSION: 1. Decreased size right apical pneumothorax. 2. Stable patchy infiltrates at the left lung base. Shaq Eisenberg MD Last 24 hours Impressions Chest X-Ray 12/23/17 0600 Signed Impressions: Service Date/Time: November 04:04 - CONCLUSION: 1. Right- sided chest tube without pneumothorax. 2. Left basilar density, unchanged. Nikunj Oneil MD Last 24 hours Impressions Chest X-Ray 12/22/17 06 Signed Impressions: Service Date/Time: Friday, December 22, 2017 04:38 - CONCLUSION: 1. Right chest tube with tiny right pneumothorax. Right central lines remain unchanged. Slight improvement in left basilar airspace disease with small effusions. Tera Gibson MD Last Impressions Chest X-Ray 12/11/17 0000 Signed Impressions: Service Date/Time: Monday, December 11, 2017 10:51 - CONCLUSION: Stable chest with moderate subcutaneous emphysema and no pneumothorax. Torin Dennison MD FACR Liver Ultrasound 12/09/17 0000 Signed Impressions: Service Date/Time: November 19:18 - CONCLUSION: 1. Limited suboptimal examination with only a small portion of the liver visualized. 2. The gallbladder and common bile duct could not be visualized. The pancreas is not evaluated. 3. Left pleural effusion. Liang Jimenez MD Head CT 12/08/17 0000 Signed Impressions: Service Date/Time: Friday, December 08, 2017 08:25 - CONCLUSION: Negative for acute process. Torin Dennison MD FACR Catheter Placement X-Ray 12/02/17 0000 Signed Impressions: Service Date/Time: November 10:47 - CONCLUSION: Uncomplicated right internal jugular Vas-Cath placement as above. incidental note is made of subcutaneous emphysema within the chest wall and neck Con Dennison MD Lower Extremity Ultrasound 11/29/17 0000 Signed Impressions: Service Date/Time: Wednesday, November 29, 2017 22:02 - CONCLUSION: Normal examination. Abdiel Mcintyre MD Renal Ultrasound 11/28/17 0000 Signed Impressions: Service Date/Time: Tuesday, November 28, 2017 20:30 - CONCLUSION: Nondiagnostic exam. Rashad Bose MD Objective Remarks General - elderly gentleman, trached, on ventilator, weak, ill-appearing HEENT - pupils equal, reactive, sclerae anicteric, trach in place, RIJ HD catheter - site clean, right subclavian central line -site is clean CV - irregular heart sounds, no murmurs, rubs or gallops appreciated Chest - decreased air entry at bases b/l, still with coarse breath sounds bilateral, no wheezes, right-sided chest tube on suction, no air leak Abdomen - soft, non-tender, distended, BS present, PEG tube in place Skin - cyanosis over bilateral toes, unchanged; crepitus on palpation over the upper chest and neck, improving Extremities - warm, 3+ pitting edema, + peripheral pulses Neuro - awake but not following any commands A/P Problem List: (1) A-fib ICD Code: I48.91 - Unspecified atrial fibrillation (2) CHF (congestive heart failure) ICD Code: I50.9 - Heart failure, unspecified Status: Chronic (3) HTN (hypertension) ICD Code: I10 - Essential (primary) hypertension Status: Chronic (4) ADRIAN (obstructive sleep apnea) ICD Code: G47.33 - Obstructive sleep apnea (adult) (pediatric) Status: Chronic (5) MRSA pneumonia ICD Code: J15.212 - Pneumonia due to Methicillin resistant Staphylococcus aureus Status: Acute (6) Diabetes mellitus type 2, insulin dependent ICD Code: E11.9 - Type 2 diabetes mellitus without complications; Z79.4 - computer terminal operator (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) use of insulin Status: Chronic (7) COPD (chronic obstructive pulmonary disease) ICD Code: J44.9 - Chronic obstructive pulmonary disease, unspecified Status: Acute (8) Respiratory distress ICD Code: R06.03 - Acute respiratory distress Status: Acute (9) Leukocytosis ICD Code: D72.829 - Elevated white blood cell count, unspecified Status: Acute (10) Lung consolidation ICD Code: J18.1 - Lobar pneumonia, unspecified organism Status: Acute (11) Anxiety ICD Code: F41.9 - Anxiety disorder, unspecified Status: Chronic (12) Failure to wean from mechanical ventilation ICD Code: Z99.11 - Dependence on respirator [ventilator] status Assessment and Plan Neurologic: Encephalopathy, metabolic -unchanged Anxiety Neuro checks per ICU protocol EEG: Mild- mod encephalopathy. Neuro- Dr. Anne. CT brain 12/08 no acute process Not on sedation Respiratory: Acute respiratory failure on mechanical ventilation- extubated and reintubated night of 11/18 after he was noted to choke on water provided by family COPD exacerbation -resolved Pneumonia-MRSA, MDR Pseudomonas Right sided pneumothorax following CPR status post pigtail catheter/chest tube placement 11/27 Obstructive sleep apnea Home O2 dependency Continue with vent support keep sats >90%. s/p Trach 12/14/17 Continue PRVC, respiratory rate increased to 24 due to worsening hypercapnia. Peak airway pressure at 30 Daily CPAP trials as tolerated. Today he did not tolerate CPAP so far Bronchodilators Pulmonology - Dr Price Right sided chest tube placed on suction. Decrease suction to -20 Daily chest x-ray Cardiovascular: Shock most likely septic -continues to require phenylephrine infusion Cardiac arrest - asystole, status post CPR 11/27 A. fib RVR History of CHF CAD Peripheral cyanosis/early gangrene of the toes Phenylephrine remains off for now Continue digoxin every 48 hours and amiodarone Check digoxin level on 12/26 Cardizem, Eliquis and atorvastatin on hold Slow hydrocortisone taper Cardiology - Dr. Parker. Echo showed EF 65-70% Renal: DAVID Monitor renal function, electrolytes replacement as needed Nephrology Dr. Ragland. 12/02 Vas-Cath placed for initiation of IHD HD per nephrology FEN/GI: Elevated LFT's GERD Monitor LFT's, US liver on 12/06: non diagnostic study US liver 12/09 limited study. Hepatitis profile is negative On tube feeds On Nepro @40cc/hr. Pepcid for GI prophylaxis 12/03 PEG tube placement ID: Pneumonia MRSA, MDR Pseudomonas Leukocytosis Septic shock Continue antibiotics per ID Stool for C. difficile negative on 11/29 and 12/06 Pertinent cultures Sputum culture growing Aspergillus 12/14 Urine yeast 12/09 BC: NGTD 12/08 Urine cx: C. Glabrata 12/06, 12/16 Sputum cx: Pseudomonas MDR 11/16 sputum cultures- Kleb pneumonia 11/26 sputum cultures growing multidrug resistant Pseudomonas/MRSA 11/28 urine culture growing yeast 11/26 blood culture neg Heme Thrombocytopenia HIT antibody positive AUGUSTA negative. Argatroban discontinued by Dr. Quintana. Endocrine: Glucose monitoring per ICU protocol -- SSI(high scale) Levemir 5u Q12 Msk: Polyneuropathy of Critical Illness Continue PT, OT Prophylaxis: GI Prophylaxis Famotidine BID -- SCDs Holding home dose Eliquis 5 mg BID on 11/27 in view of thrombocytopenia and renal failure Argatroban discontinued HIT AUGUSTA negative Started heparin subcu every 12 hours 12/17/2017, hold due to platelet count being 53, restarted on 12/20 Lines: Left IJ central line placed 11/29-DCd 12/17. New Left central line subclavian placed 12/16/17 Right IJ vascath 12/23 Palliative care is following Patient remains critically ill requiring mechanical ventilation and vasopressors and he is at very high risk for further decompensation and . Discussed with present at bedside. Patient remains off pressors therefore will ask [facility] to reevaluate Problem Qualifiers (1) COPD (chronic obstructive pulmonary disease): Qualified Codes: J44.9 - Chronic obstructive pulmonary disease, unspecified (2) Leukocytosis: Qualified Codes: D72.829 - Elevated white blood cell count, unspecified Nick Green MD Dec 27, 2017 11:41
--- NOTE | 2017-12-27 13:18 | HHI.IDPN ---
Note Infectious Disease Note Patient appears calm and comfortable. Continues to have puffiness of the face and eyelids. Now also has left eyelid edema. at bedside. Clear tracheal secretions suctioned. Afebrile. Remains on the vent. Did not tolerate CPAP and was put back on the ventilator after 3 minutes CPAP trial. Sputum culture has aspergillus species. Urine culture from 12/08 and 12/16 had Nette. Previous urine culture on 11/28 had Nette glabrata. Patient was treated with Diflucan. Chest tube in place on the right due to pneumothorax. 77-year-old, white male who presents to the Emergency Department with shortness of breath. The patient has a history of COPD and CHF. He usually uses CPAP at the assisted living facility. He was noted to have been developing coughing and shortness of breath over the past couple of days, and his states that he was coughing a lot yesterday and bringing up mostly phlegm and that he was restless and could not sleep. Recent treatment at [facility] for pneumonia due to methicillin-resistant Staphylococcus aureus. PAST MEDICAL HISTORY: COPD, CHF, atrial fibrillation, insulin-dependent diabetes mellitus, hypertension, hyperlipidemia, gastroesophageal reflux, gastroparesis, iron deficiency anemia, oxygen-dependent. PAST SURGICAL HISTORY: Right knee surgery, right carpal tunnel release, cardiac ablation treatment 2002. ALLERGIES: ASPIRIN, CODEINE. MEDICATIONS: Current Medications Medications (Trade) Dose Ordered Sig/Yani Route PRN Reason Start Time Stop Time Status Last Admin Dose Admin Sodium Chloride (NS Flush) 2 ml UNSCH PRN IV FLUSH FLUSH AFTER USING IV ACCESS 11/14/17 15:45 12/26/17 20:57 Sodium Chloride (NS Flush) 2 ml BID IV FLUSH 11/14/17 21:00 12/27/17 09:26 Ondansetron HCl (Zofran Inj) 4 mg Q6H PRN IV PUSH NAUSEA OR VOMITING 11/14/17 15:45 11/18/17 16:03 Miscellaneous Information 1 Q361D XX 11/14/17 15:45 11/14/17 15:45 Chlorhexidine Gluconate (Chlorhexidine 2% Cloth) 3 pack Taper DAILY@04 TOP 11/15/17 04:00 11/11/18 03:59 12/27/17 05:05 Chlorhexidine Gluconate (Chlorhexidine 2% Cloth) 3 pack UNSCH PRN TOP HYGIENIC CARE 11/14/17 15:45 Senna/Docusate Sodium (Ricarda-Colace) 1 tab BID PO 11/14/17 21:00 12/27/17 09:25 Magnesium Hydroxide (Milk Of Magnesia Liq) 30 ml Q12H PRN PO Mild constipation 11/14/17 15:45 Sennosides (Senokot) 17.2 mg Q12H PRN PO Moderate constipation 11/14/17 15:45 Bisacodyl (Dulcolax Supp) 10 mg DAILY PRN RECTAL SEVERE CONSITIPATION 11/14/17 15:45 Lactulose (Lactulose Liq) 30 ml DAILY PRN PO SEVERE CONSITIPATION 11/14/17 15:45 Apixaban (Eliquis) 5 mg BID PO 11/14/17 21:00 Future Hold 11/27/17 20:17 Atorvastatin Calcium (Lipitor) 80 mg HS PO 11/14/17 21:00 Future Hold 12/05/17 19:49 Diltiazem HCl (Cardizem) 60 mg QID PO 11/14/17 18:00 Future Hold 12/06/17 08:44 Patient Own Medication PT OWN MED: Mometas... HS INH 11/14/17 21:00 Future Hold Hydralazine HCl (Apresoline Inj) 20 mg Q4H PRN IV PUSH SYS BP GREATER THAN 160 MMHG 11/17/17 12:00 11/22/17 07:38 Budesonide/ Formoterol Fumarate (Symbicort 160-4.5 Mcg Inh) 2 puff Q12HR INH 11/18/17 21:00 12/27/17 07:19 Chlorhexidine Gluconate (Peridex 0.12% Liq) 15 ml BID@08,20 MT 11/19/17 08:00 12/27/17 09:24 Albuterol/ Ipratropium (Duoneb Neb) 1 ampule Q2HR NEB PRN INH WHEEZING 11/18/17 22:30 12/26/17 19:28 Famotidine (Pepcid) 10 mg BID PO 11/22/17 21:00 12/27/17 09:25 Insulin Aspart (NovoLOG SUPPLEMENTAL SCALE) 1 Q4HR SQ 11/26/17 16:00 12/27/17 08:00 Dextrose (D50w (Vial) Inj) 25 ml UNSCH PRN IV HYPOGLYCEMIA-SEE COMMENTS 11/26/17 15:30 12/04/17 01:18 Glucagon (Glucagon Inj) 1 mg UNSCH PRN IM/SQ HYPOGLYCEMIA-SEE COMMENTS 11/26/17 15:30 Fentanyl Citrate 250 ml @ 5 mls/hr TITRATE PRN IV SEDATION 11/27/17 13:45 12/03/17 08:58 Metoprolol Tartrate (Lopressor Inj) 5 mg Q6H PRN IV PUSH heart rate greater than 135/mi 11/29/17 09:15 Sodium Chloride 1,000 ml @ 0 mls/hr Q0M PRN OTHER For Prime & Rinse Back 12/02/17 09:30 12/19/17 09:56 Heparin Sodium (Porcine) (Heparin Inj) 8,000 units UNSCH PRN IV FLUSH WITH DIALYSIS 12/02/17 09:30 Sodium Chloride 1,000 ml @ 200 mls/hr Q5H PRN IV WITH DIALYSIS 12/02/17 09:30 Sodium Chloride 1,000 ml @ 0 mls/hr Q0M PRN OTHER WITH DIALYSIS 12/02/17 09:30 Mannitol (Mannitol Inj) 12.5 gm UNSCH PRN IV WITH DIALYSIS 12/02/17 09:30 12/25/17 18:15 Albumin Human 100 ml @ 60 mls/hr UNSCH PRN IV WITH DIALYSIS 12/02/17 09:30 12/25/17 18:14 Sodium Chloride (NS Flush) 5 ml UNSCH PRN IV FLUSH WITH DIALYSIS 12/02/17 09:30 12/20/17 21:12 Heparin Sodium (Porcine) (Heparin Inj) UNSCH PRN .XX WITH DIALYSIS 12/02/17 09:30 12/25/17 08:27 Gentamicin Sulfate (Gentamicin Inj) 20 mg UNSCH PRN OTHER WITH DIALYSIS 12/02/17 09:30 12/25/17 08:28 Ondansetron HCl (Zofran Inj) 4 mg UNSCH PRN IV PUSH WITH DIALYSIS 12/02/17 09:30 Acetaminophen (Tylenol) 650 mg UNSCH PRN PO for headach, pain, temp > 101F 12/02/17 09:30 12/18/17 23:32 Diphenhydramine HCl (Benadryl) 25 mg UNSCH PRN PO for hives/itching/anaphylaxis 12/02/17 09:30 Nitroglycerin (Nitrostat Sl) 0.4 mg UNSCH PRN SL CHEST PAIN 12/02/17 09:30 Clonidine (Catapres) 0.1 mg UNSCH PRN PO for BP > 180/100 X 2 readings 12/02/17 09:30 Epoetin Kvng (Epogen Inj) 4,000 units UNSCH PRN IV PUSH WITH DIALYSIS 12/02/17 09:30 12/25/17 08:27 Gelatin (Gelfoam 12 Mm/7 Mm Top) 1 foam UNSCH PRN TOP SEE LABEL COMMENTS 12/02/17 09:30 Sodium Chloride (NS Flush) UNSCH PRN IV FLUSH SEE PROTOCOL 12/02/17 11:15 Heparin Sodium (Porcine) (Heparin Inj) UNSCH PRN IV FLUSH SEE PROTOCOL 12/02/17 11:15 Insulin Detemir (Levemir Inj) 5 units Q12HR SQ 12/07/17 12:00 12/27/17 09:26 Lanthanum Carbonate (Fosrenol Chew) 500 mg TID CHEW 12/07/17 18:00 12/27/17 09:25 Calcitriol (Rocaltrol) 0.5 mcg DAILY PO 12/08/17 09:00 12/27/17 09:25 Metronidazole (Flagyl) 500 mg Q6HR PO 12/10/17 13:30 12/27/17 05:05 Phenylephrine HCl 160 mg/Dextrose 500 ml @ 7.5 mls/hr TITRATE PRN IV Blood pressure management 12/10/17 19:30 12/24/17 03:57 Amiodarone HCl 450 mg/Sodium Chloride 250 ml @ 33.33 mls/ hr Q7H31M PRN IV Per Protocol 12/13/17 12:30 12/14/17 23:52 Amiodarone HCl (Cordarone) 200 mg Q12HR PO 12/15/17 14:00 12/27/17 09:25 Morphine Sulfate (Morphine Inj) 1 mg Q4H PRN IV PUSH PAIN SCALE 1 TO 10 12/15/17 19:45 Heparin Sodium (Porcine) (Heparin Inj) 5,000 units Q12H SQ 12/17/17 10:00 Future hold 12/27/17 09:25 Digoxin (Lanoxin) 0.125 mg Q48H PO 12/22/17 09:00 12/26/17 08:26 Amiodarone HCl 450 mg/Sodium Chloride 250 ml @ 33.33 mls/ hr Q7H31M PRN IV Per Protocol 12/20/17 12:00 Norepinephrine Bitartrate 4 mg/ Sodium Chloride 250 ml @ 7.5 mls/hr TITRATE PRN IV Blood pressure management 12/20/17 12:00 Terbutaline Sulfate (Brethine Inj) 1 mg UNSCH PRN SQ For Extravasation 12/20/17 11:00 Tobramycin Sulfate (Timur Neb) 300 mg Q12HR NEB NEB 12/20/17 12:15 12/27/17 07:19 Alteplase, Recombinant (Cathflo Activase Inj) 2 mg Q2H PRN INTRACATH CLOGGED 12/22/17 10:30 Sodium Chloride (NS Flush) UNSCH PRN IV FLUSH SEE PROTOCOL 12/23/17 17:00 Heparin Sodium (Porcine) (Heparin Inj) UNSCH PRN IV FLUSH SEE PROTOCOL 12/23/17 17:00 Hydrocortisone Sodium Succinate (SoluCORTEF INJ) 25 mg Q12H IV PUSH 12/27/17 23:00 OBJECTIVE: Vital Signs Date Time Temp Pulse Resp B/P (MAP) Pulse Ox O2 Delivery O2 Flow Rate FiO2 12/27/17 11:34 100 35 12/27/17 08:57 100 35 12/27/17 08:00 35 12/27/17 08:00 102 12/27/17 08:00 98.8 101 22 102/60 (74) 100 12/27/17 07:26 100 35 12/27/17 06:00 106 12/27/17 04:50 100 35 12/27/17 04:00 98.5 94 23 85/50 (62) 100 12/27/17 04:00 94 12/27/17 04:00 35 12/27/17 02:00 99 12/27/17 01:59 100 35 12/27/17 00:00 98.6 92 22 103/55 (71) 100 12/27/17 00:00 92 12/27/17 00:00 35 12/26/17 22:38 100 35 12/26/17 22:00 88 4/29/18 21:00 96 12/26/17 20:00 35 12/26/17 20:00 98 12/26/17 20:00 98.6 98 22 99/55 (70) 100 12/26/17 19:31 100 35 12/26/17 18:00 108 12/26/17 17:21 100 35 12/26/17 16:00 100 12/26/17 16:00 35 12/26/17 16:00 98.9 100 34 109/57 (74) 100 12/26/17 14:00 98 Laboratory Tests Test 12/26/17 04:51 12/27/17 04:30 White Blood Count 9.9 TH/MM3 11.9 TH/MM3 Red Blood Count 3.02 MIL/MM3 3.33 MIL/MM3 Hemoglobin 8.8 GM/DL 9.5 GM/DL Hematocrit 27.5 % 30.5 % Mean Corpuscular Volume 91.1 FL 91.6 FL Mean Corpuscular Hemoglobin 29.0 PG 28.4 PG Mean Corpuscular Hemoglobin Concent 31.9 % 31.1 % Red Cell Distribution Width 22.0 % 22.5 % Platelet Count 215 TH/MM3 268 TH/MM3 Mean Platelet Volume 9.2 FL 9.2 FL Neutrophils (%) (Auto) 79.8 % 86.0 % Lymphocytes (%) (Auto) 12.6 % 7.5 % Monocytes (%) (Auto) 7.2 % 6.2 % Eosinophils (%) (Auto) 0.0 % 0.0 % Basophils (%) (Auto) 0.4 % 0.3 % Neutrophils # (Auto) 7.9 TH/MM3 10.2 TH/MM3 Lymphocytes # (Auto) 1.3 TH/MM3 0.9 TH/MM3 Monocytes # (Auto) 0.7 TH/MM3 0.7 TH/MM3 Eosinophils # (Auto) 0.0 TH/MM3 0.0 TH/MM3 Basophils # (Auto) 0.0 TH/MM3 0.0 TH/MM3 CBC Comment AUTO DIFF AUTO DIFF Differential Total Cells Counted 100 100 Neutrophils % (Manual) 78 % 76 % Band Neutrophils % 3 % 6 % Lymphocytes % 8 % 8 % Monocytes % 9 % 5 % Neutrophils # (Manual) 8.2 TH/MM3 10.4 TH/MM3 Myelocytes 1 % 3 % Promyelocytes 1 % Nucleated Red Blood Cells 2 /100 WBC 1 /100 WBC Differential Comment FINAL DIFF MANUAL FINAL DIFF MANUAL Platelet Estimate NORMAL NORMAL Platelet Morphology Comment NORMAL NORMAL Ovalocytes 1+ 1+ Stomatocytes 1+ Metamyelocytes 2 % Polychromasia 2.6 % Laboratory Tests Test 12/26/17 04:51 12/27/17 04:30 Blood Urea Nitrogen 62 MG/DL 83 MG/DL Creatinine 2.00 MG/DL 2.49 MG/DL Random Glucose 185 MG/DL 155 MG/DL Total Protein 5.9 GM/DL 5.5 GM/DL Albumin 4.0 GM/DL 3.5 GM/DL Calcium Level 8.2 MG/DL 8.1 MG/DL Phosphorus Level 1.9 MG/DL 2.4 MG/DL Magnesium Level 2.0 MG/DL 2.1 MG/DL Alkaline Phosphatase 230 U/L 232 U/L Aspartate Amino Transf (AST/SGOT) 15 U/L 16 U/L Alanine Aminotransferase (ALT/SGPT) 18 U/L 17 U/L Total Bilirubin 0.6 MG/DL 0.6 MG/DL Sodium Level 139 MEQ/L 138 MEQ/L Potassium Level 3.5 MEQ/L 3.6 MEQ/L Chloride Level 99 MEQ/L 98 MEQ/L Carbon Dioxide Level 27.9 MEQ/L 28.7 MEQ/L Anion Gap 12 MEQ/L 11 MEQ/L Estimat Glomerular Filtration Rate 33 ML/MIN 25 ML/MIN Microbiology Date/Time Source Procedure Growth Status 12/24/17 17:15 Sputum Endotracheal Gram Stain - Final Resulted 12/24/17 17:15 Sputum Culture - Preliminary Aspergillus Species Resulted Imaging: Chest X-Ray 12/27/17 06 Signed Impressions: Service Date/Time: Wednesday, December 27, 2017 03:00 - CONCLUSION: 1. Stable left basilar consolidation with possible associated effusion. 2. Right-sided thoracostomy tube. No obvious pneumothorax the current study. Right lung is clear. 3. Stable position of life support tubes as detailed above. Stable bilateral deep tissue emphysematous changes about the chest. Omid Traore MD Chest X-Ray 12/26/17 06 Signed Impressions: Service Date/Time: Tuesday, December 26, 2017 04:58 - CONCLUSION: 1. Decreased size right apical pneumothorax. 2. Stable patchy infiltrates at the left lung base. Shaq Eisenberg MD Chest X-Ray [id number]/25/17599 Signed Impressions: Service Date/Time: Monday, December 25, 2017 03:57 - CONCLUSION: 1. Stable right lateral pneumothorax measuring 9 mm. 2. Increasing consolidative infiltrates left lower lung and stable left pleural effusion. Shaq Eisenberg MD Chest X-Ray [id number]/24/17599 Signed Impressions: Service Date/Time: Sunday, December 24, 2017 04:21 - CONCLUSION: 1. Stable right lateral pneumothorax measuring 9 mm. 2. Probable left pleural effusion. Stable patchy infiltrates at the left lung base. Shaq Eisenberg MD Chest X-Ray 12/23/17599 Signed Impressions: Service Date/Time: November 04:04 - CONCLUSION: 1. Right- sided chest tube without pneumothorax. 2. Left basilar density, unchanged. Nikunj Oneil MD Chest X-Ray 12/23/17 0000 Signed Impressions: Service Date/Time: November 17:53 - CONCLUSION: 1. Small loculated pneumothorax superolaterally on the right unchanged. Right chest tube remains in place. 2. Right subclavian and internal jugular catheters are present. I believe the right IJ line has been changed out since this morning. 3. Left base consolidation slightly worse. Abdiel Vidales MD Catheter Placement X-Ray 12/23/17 Signed Impressions: Service Date/Time: November 16:21 - CONCLUSION: Uncomplicated line exchange as above. 15 cm catheter was exchanged for a 24 cm catheter. Omid Traore MD Chest X-Ray 12/22/17599 Signed Impressions: Service Date/Time: Friday, December 22, 2017 04:38 - CONCLUSION: 1. Right chest tube with tiny right pneumothorax. Right central lines remain unchanged. Slight improvement in left basilar airspace disease with small effusions. Tera Gibson MD Chest X-Ray 12/18/17599 Signed Impressions: Service Date/Time: Monday, December 18, 2017 04:26 - CONCLUSION: 1. Unchanged left basilar consolidation. 2. No discernible pneumothorax on the current study. Shaq Freire Jr., MD PHYSICAL EXAMINATION: GENERAL: Awake and alert. No acute distress. HEENT: Subcutaneous emphysema at the face. Eyelid edema. No icterus. Moist mucosa. NECK: No adenopathy. LUNGS: Decreased breath sounds at the bases. HEART: Irregular S1 and S2. No murmurs, rubs or gallops. ABDOMEN: Bowel sounds present, obese, soft. Non tender. EXTREMITIES: 1+ edema of the feet. Cyanosis at the tips of the toes. The feet are warm. SKIN: No diffuse rash. NEUROLOGIC: Nonfocal. Follows commands. PSYCHIATRIC: Unable to fully assess IMPRESSION: 1. New fever. Cultures negative. Temperature resolved. 2. Sepsis. 3. Pneumonia - Pseudomonas MDR. Repeated sputum cultures Aspergillus species. 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 Patient has improved with prior antibiotic treatment for pneumonia. 4. Acute respiratory failure. Vent dependent. Extubated previously and appears to have aspirated. 5. Leukocytosis. White blood cell count improved.. 6. Nette glabrata UTI. Patient to be colonized. 6. Right-sided pneumothorax. Subcutaneous emphysema. 7. History of chronic obstructive pulmonary disease and recent chronic obstructive pulmonary disease exacerbation. 8. Renal failure. Receiving hemodialysis. 9. Elevated liver function tests. Resolved. RECOMMENDATIONS: 1. Stop aerosol tobramycin. 2. Stop metronidazole. 3. Monitor clinical progress. 4. Follow the temperature and white blood cell count. Tom Long MD Dec 27, 2017 13:18
[2017-12-27] MEDS ORDERED: HYDROCORTISONE SOD SUCCINATE 100 MG VIAL IV PUSH SCH (23:00)
[2017-12-28] VITALS (12 sets, daily range): BP systolic 92–111; BP diastolic 52–89; PULSE 89–109; RESP 24–25; TEMP 99.1–99.6; O2SAT 99–100
[2017-12-28] MEDS: metroNIDAZOLE 500 MG TAB PO SCH ×3 (00:54→12:24)
[2017-12-28] MEDS: INSULIN ASPART SUPPLEMENTAL SCALE SQ SCH ×4 (00:54→12:00)
[2017-12-28] MEDS: CHLORHEXIDINE GLUCONATE 2 % 1 PACK (2 CLOTHS) TOP SCH (04:00)
--- NOTE | 2017-12-28 06:56 | RADRPT ---
EXAM DATE/TIME: 12/28/2017 05:34 [facility] COMPARISON: CHEST SINGLE AP, December 27, 2017, 3:00. INDICATIONS : Short of breath. MEDICAL HISTORY : Chronic obstructive pulmonary disease. Cardiovascular disease. SURGICAL HISTORY : Tracheotomy. ENCOUNTER: Subsequent ACUITY: 2 months PAIN SCORE: 0/10 LOCATION: Bilateral chest FINDINGS: A single view of the chest demonstrates persistent left basilar airspace process/effusion with develo ping right basilar airspace disease. Right-sided thoracostomy tube is unchanged in position. No pneum othorax. Right IJ large bore dialysis type catheter in the right subclavian central venous catheters with tracheostomy tube are stable in position. Bilateral deep tissue emphysematous changes are stable . CONCLUSION: 1. Stable left basilar airspace process/effusion with some developing right basilar airspace disease/ atelectasis. 2. Stable position of life support tubes. Stable deep tissue emphysematous changes about the hemithor fernanda Traore MD on December 28, 2017 at 6:53 Board Certified Radiologist. This report was verified electronically.
[2017-12-28 07:03] LABS: AUTOMATED NEUTROPHIL # 10.2 TH/MM3 (1.8-7.7); BASOPHIL % 0.2 % (0.0-2.0); HEMATOCRIT 31.5 % (39.0-51.0); HEMOGLOBIN 9.6 GM/DL (13.0-17.0); LYMPH % 11.1 % (9.0-44.0); LYMPHOCYTE # 1.4 TH/MM3 (1.0-4.8); MEAN CELL VOLUME 91.6 FL (80.0-100.0); MEAN CORPUSCULAR HGB CONC 30.6 % (32.0-36.0); MEAN PLATELET VOLUME 9.2 FL (7.0-11.0); MONO % 8.6 % (0.0-8.0); MONOCYTE # 1.1 TH/MM3 (0-0.9); NEUT % 80.1 % (16.0-70.0); PLATELET COUNT 323 TH/MM3 (150-450); RED BLOOD COUNT 3.44 MIL/MM3 (4.50-5.90); RED CELL DISTRIBUTION WIDTH 22.5 % (11.6-17.2); WHITE BLOOD COUNT 12.7 TH/MM3 (4.0-11.0)
[2017-12-28 07:06] LABS: ALBUMIN 3.3 GM/DL (3.4-5.0); ALT (GPT) 16 U/L (12-78); AST (GOT) 24 U/L (15-37); BICARBONATE 26.2 MEQ/L (21.0-32.0); BLOOD UREA NITROGEN 107 MG/DL (7-18); CALCIUM 8.3 MG/DL (8.5-10.1); CHLORIDE 96 MEQ/L (98-107); CREATININE 3.07 MG/DL (0.60-1.30); GLOMERULAR FILTRATION RATE 20 ML/MIN (>89); GLUCOSE,RANDOM 200 MG/DL (74-106); MAGNESIUM 2.2 MG/DL (1.5-2.5); PHOSPHORUS 2.5 MG/DL (2.5-4.9); SODIUM (NA) 137 MEQ/L (136-145)
[2017-12-28 07:10] LABS: ALKALINE PHOSPHATASE 256 U/L (45-117); TOTAL BILIRUBIN ADULT 0.6 MG/DL (0.2-1.0); TOTAL PROTEIN 5.4 GM/DL (6.4-8.2)
[2017-12-28] MEDS: BUDESONIDE-FORMOTEROL 160/4.5 MCG INHALER INH SCH (07:17)
[2017-12-28] MEDS: PHENYLEPHRINE INJ 160 MG in DEXTROSE 5% IN WATE 500 ML INJ 484 ML IV PRN ×2 (07:30)
[2017-12-28] MEDS: CHLORHEXIDINE 0.12% (ORAL KIT) 15 ML CUP MT SCH (08:00)
[2017-12-28 08:52] LABS: TOXIC GRANULATION 1+ (NORMAL)
[2017-12-28 08:53] LABS: OVALOCYTES 1+ (NORMAL)
[2017-12-28] MEDS: CALCITRIOL 0.25 MCG CAP PO SCH (09:00)
[2017-12-28] MEDS: DOCUSATE SODIUM 50 MG/SENNA 8.6 MG TAB PO SCH (09:00)
[2017-12-28] MEDS: FAMOTIDINE 20 MG TAB PO SCH (09:01)
[2017-12-28] MEDS: AMIODARONE 200 MG TAB PO SCH (09:02)
[2017-12-28] MEDS: SODIUM CHLORIDE 0.9% FLUSH 10 ML FLUSH IV FLUSH SCH (09:03)
[2017-12-28] MEDS: LANTHANUM CARBONATE 500 MG CHEWABLE TABLET CHEW SCH ×2 (09:03→12:24)
[2017-12-28] MEDS: DIGOXIN 0.125 MG TAB PO SCH (09:03)
[2017-12-28] MEDS: HEPARIN SODIUM - SQ 10,000 UNITS/ML VIAL SQ SCH (09:04)
[2017-12-28] MEDS: INSULIN DETEMIR 100 UNITS/ML VIAL SQ SCH (09:04)
--- NOTE | 2017-12-28 09:32 | HHI.CCPN ---
Subjective Remarks/Hospital Course This is a 77-year-old male with a medical history significant for COPD, CHF, A. fib, diabetes, that presented to emergency department from [facility] for evaluation of worsening shortness of breath over the last 3 days. The patient was been given Solu-Medrol 125 mg and 2 albuterol treatments enroute to ED. Upon presentation to the ED the patient was on a nonrebreather. He was tachypneic and tachycardic. Patient's medical history significant for MRSA pneumonia previously admitted on 10/27/16 for approximately 12 days at [facility]. The patient is normally on 2.5 L/m nasal cannula O2 home dependency, and he lives with ( normally) a PCO2 in the 80s according to his . Patient was then discharged to [facility], and then transferred to [facility] for rehabilitation. He has been on an unknown antibiotic per the family and steroids for the last 3 days. Laboratory and imaging studies were performed with noted elevation in CO2 The patient was given empiric antibiotics in the ED and placed on BiPAP. Critical care medicine was consulted. Subjective: 11/15: Patient maintained on BiPAP throughout the night O2 saturations 97-98% on FiO2 of 0.40. Hemodynamically stable. Attempts made to wean patient to nasal cannula this a.m. unsuccessful, patient's O2 saturation in the 70s, patient placed back on BiPAP. Chest x-ray pending WBC count significantly diminished, leukocytosis resolved. Patient extremely anxious, Precedex infusion initiated. 11/16: Late entry note. Patient seen 10 AM. Overnight the patient converted to A. fib RVR, despite being on Cardizem 4 times a day and metoprolol twice a day- home medications, the patient received IV Cardizem followed by amiodarone infusion. Per report the patient became hypotensive, Cardizem discontinued. Amiodarone continued. Early this a.m. patient was resting comfortably A. fib rate controlled rate. The patient suddenly converted to A. fib RVR heart rate 150s-160s, acute hypoxemic respiratory failure, requiring intubation. The patient was intubated uneventfully and continues on amiodarone at 0.5 mg/hour, rate now controlled in conjunction with sedation. Cardiology consulted, his spring intern is Dr. Parker X-ray revealed lung consolidation improved, chest x- ray clear. Plan for CPAP trials in a.m.. 11/17: No acute events overnight. Patient had 1 short 8 beat run of V. tach last evening was self resolution, electrolytes within normal limits. The patient continues on amiodarone 0.5 mg/hr. CPAP trials initiated this a.m.. Tube feeds initiated at trickle feeds. Patient converted to sinus rhythm at 2 AM. 11/18 Patient remains sedated and intubated. Afebrile. 11/19 Patient was extubated yesterday however last night he was noted to choke on water provided by the family. Stat ABG demonstrated acute hypercapnic respiratory failure and was emergently intubated. Currently sedated and intubated. 11/20 Patient remains intubated on Fentanyl drip however he si awake and alert. Afebrile. 11/21 Patient is awake and alert placed on CPAP with PS:15, PEEP:5. Afebrile. 11/22 Patient remains intubated , did not tolerate CPAP trials yesterday as he became tachycardic and hypertensive. On no sedation awake and alert. 11/23 No events overnight, off sedation. 11/24: Resting comfortably on mechanical ventilation currently. Daily C Pap trials ongoing. 11/25: Sedated with Precedex, orally intubated on mechanical ventilation. Daily C Pap trials 11/26: Sedated with Precedex, orally intubated on mechanical ventilation. Got tachypneic with CPAP trial today hence placed back on PRVC. Spiked a fever, gacria cultures ordered. Went into A. fib with RVR subsequently for which being initiated on amiodarone bolus followed by drip and Lopressor 5 mg IV every 6 as needed for 11/27: This morning patient developed bradycardia followed by asystole for which she had 3 minutes CPR with ACLS protocol with return of spontaneous circulation. Post code chest x-ray revealed moderate to large right pneumothorax for which a right pigtail catheter was placed by me however despite airleak patient continue have moderate to large pneumothorax hence a second right sided 28 Gibraltarian chest tube was placed to -40 cm water pressure. Air leaks 1+ in both pigtail catheter and chest tube. Patient remains in a flutter currently. Dr. parker evaluated patient as well following cardiac arrest. 11/28: Sedated, arousable, orally intubated on mechanical ventilation. Worsening renal function noted. MDR Pseudomonas in sputum. Right sided chest tube/ pigtail catheter with 1+ air leak in both. Subcutaneous emphysema noted over right side of face neck and right upper extremity. On 50% FiO2, PEEP +5. Poor urine output for which 500 cc and is bolus given earlier. Treated for hyperkalemia with Kayexalate PO, glucose insulin, calcium IV. 4/2: Remains sedated, arousable, orally intubated on mechanical ventilation. A. fib with RVR this morning for which she was loaded with amiodarone and initiated on amiodarone drip. Spiking fever 103.5. ID adjusting antibiotics. Stool for C. difficile ordered as he had some diarrhea today though received Kayexalate yesterday for hyperkalemia. Pigtail catheter on the right side appeared to be dislodged hence this was removed. 28 Gibralt[place] chest tube in right pleural cavity repositioned. 11/30: Late entry note , patient seen at 12 noon. Creatinine continues to trend upward.Sedated but easily arousable. 12/01: Patient lightly sedated, following commands this a.m.. Creatinine noted increased, possible dialysis consideration for tomorrow. Patient to be diuresed today. CPAP trial initiated failed after 5 minutes, repeat this afternoon. 12/02: Patient placed on Lasix infusion throughout the night . No renal improvement,creatinine worsened today , plan for Vas-Cath placement and IHD today. This extensive discussion with patient and plans for tracheostomy and PEG tube placement secondary to failure to wean. 12/03: Late entry note, patient seen at 11 am. Patient scheduled for PEG placement today by Dr. Iglesias. Patient continues to fail CPAP trials. Plan for tracheostomy in the near future 12/04: Late entry note . Patient seen earlier this am. Overnight the patient became hypoglycemic, secondary to n.p.o. status, post PEG placement. D10 was initiated at 30 cc/hr. Tube feeds reinitiated Jevity 1.5, 24 hours post PEG tube placed, D10 discontinued. Patient remains on fentanyl at 100 mics/hour, lightly sedated. Patient denies pain answering by nodding head to yes and no questions. Tracheostomy planned for Wednesday12/06/[address] Calderon. 12/05: Remains intubated sedated with 50 mcg of fentanyl. On attempted CPAP trial patient remained dyspneic. Significant neuromuscular weakness persist. Chest x-ray shows small right apical pneumothorax. Tentatively plan for tracheostomy tomorrow. Dr. Calderon has already been consulted 12/06 Patient remains intubated for possible trach today. On Levophed 12 mics. Afebrile. 12/07 No events overnight. Trach was placed on hold yesterday as patient was on Levophed. He is down to 5 mics today. Afebrile. 12/08 Patient remains intubated on no sedation. CT brain this morning showed no acute process. Off Levophed. 12/09 Patient was placed back on Levophed 6 mics. Afebrile. Remains intubated on no sedation. 12/10 Patient remains intubated. On Neosyn 40 mics went into Afib with RVR HR 128 12/11 Patient remains intubated. Now on Neosyn 200 mics ( MAP 86mmHg). s/p HD yesterday with 1.5L removed. T:99.7 12/12 Patient remains sedated and intubated. Neosyn down 100 mics. For transfusion 2u PRBC and 1u PLT ( Hgb 6.7 and PLT 18 this morning) s/p HD with 3L removed yesterday. WBC is trending down. 12/13: More critically ill today, Bertin-Synephrine had to be increased to 150 mcg/ min, remains borderline hypotensive despite Bertin-Synephrine, currently in A. fib with RVR. Digoxin additional 0.25 mg IV push 1, start amiodarone infusion 12/14: Patient remains patient remains intubated currently on 50 mcg/min of Bertin- Synephrine. Remains on amiodarone infusion with heart rate better controlled 110-120. Plan for perc trach at bedside today 12/15: Remains on Bertin-Synephrine 50 mcg/min. On attempted CPAP patient had multiple PVCs and PACs. Potassium 2.7 getting replaced. Argatroban will be restarted 12/16: Patient is more lethargic, profoundly hypotensive Bertin-Synephrine increase to 300 mcg/min. Possibly septic shock. Currently on micafungin backside Levaquin and Flagyl. Add gram-positive coverage with vancomycin send blood cultures. Also will also change central line today-cleared by Dr. Vela to use subclavian access 12/17: Hypertensive encephalopathic Bertin-Synephrine at 100 mcg/min. new right subclavian central line placed left IJ will be sent for culture. Currently in A. fib with RVR heart rate varying from 110s-130. If persistent will give 2.5 metoprolol. AUGUSTA negative and argatroban discontinued. Start heparin subcu for DVT prophylaxis 12/18: Patient remains critically currently on 140 mcg/min of Bertin-Synephrine. Tachypneic with agonal appearing breathing on CPAP trial. Chest x-ray remains unchanged. Platelet count is 54 today, will hold subcu heparin. 12/19: Afebrile. Patient failed CPAP trials today. Patient underwent dialysis 3 L off today. Patient continues on vasopressor support with phenylephrine. Labs pending. Placed right chest tube to waterseal. 12/20: Continues to be critical currently on 200 mcg/min of Cyj-Hopnodibdt-eyfdw is increased from yesterday, remains hypotensive. Atrial fibrillation with RVR persist. Will restart IV amiodarone in an attempt to cardiovert due to hypotension. However I do not believe his hypotension is due to A. fib with RVR , hypotension is mostly from sepsis. There is no indication for DC cardioversion. New sputum culture shows Pseudomonas intermediately sensitive to Levaquin. Continue Zerbaxa and vanc, and micafungin per ID. DC Levaquin and metronidazole if okay with ID 12/21: No events over the night. Patient continues to require phenylephrine infusion, currently at 120 mcg/minute. Patient is awake, following some commands. T-max of 99.7. Minimal urine output. Right-sided chest tube to waterseal. 12/22: No events over the night. Patient on pressure support of 18 with good tidal volumes but low respiratory rate. He is awake, weak, tracking. present at bedside. Right-sided chest tube to waterseal. Small residual right pneumothorax on chest x-ray. 12/23: No events over the night. T-max of 98.8. Slight increase in subcutaneous emphysema over the right side. On morning chest x-ray pneumothorax , chest tube placed back on suction. 12/24: No events over the night. Subcutaneous emphysema improving. Morning chest x-ray still shows a very small residual right-sided pneumothorax. Right- sided chest tube on suction with small air leak. Patient is awake, tracking. present at bedside. 12/25: He was weaned off phenylephrine yesterday and he remained off so far. Had HD done this a.m. 3.2 L fluid removal. Subcutaneous emphysema is improved, right-sided chest tube remains on suction with no air leak. Morning chest x- ray reviewed, no change compared to yesterday. Afebrile over the night with a T -max of 99.5 over the last 24 hours. 12/26: No events over the night. Patient remains off pressors. Morning chest x- ray reviewed, decrease in size of right apical pneumothorax. Chest tube has no air leak and remains on suction. Patient did not tolerate morning CPAP due to episodes of apnea. Slightly improved in subcutaneous emphysema. present at bedside. 12/27: No events over the night. Patient did not tolerate CPAP trial this morning. Morning chest x-ray reviewed, no clear evidence of pneumothorax. Chest tube remains on suction, decreased to -20, no auto PEEP. Subcutaneous emphysema is about the same. T-max of 99.8. 12/28: Patient not tolerating CPAP trials. Tentative [facility] SQ Emphysema remains unchanged. Patient undergoing hemodialysis at this time. Objective Vital Signs Date Time Temp Pulse Resp B/P (MAP) Pulse Ox O2 Delivery O2 Flow Rate FiO2 12/28/17 07:17 100 35 12/28/17 06:00 102 12/28/17 04:00 99.4 24 104/59 (74) Intake and Output 12/28/17 12/28/17 12/29/17 08:00 16:00 00:00 Intake Total 563 ml Output Total 10 ml Balance 553 ml Result Diagram: 12/28/17 0530 12/28/17 0530 Other Results Laboratory Tests Test 12/28/17 05:32 Blood Gas Puncture Site CENTRAL LINE Blood Gas Patient Temperature 98.6 Venous Blood pH 7.25 (7.360-7.400) Venous Blood Partial Pressure CO2 60 mmHg (44-48) Venous Blood Partial Pressure O2 46 mmHg (35-40) Venous Blood HCO3 26 mmol/L (22-26) Venous Blood Oxygen Saturation 72 % (70-76) Venous Blood Oxygen Content 9.8 Vol % (9.0-17.0) Venous Blood Base Excess -0.7 mmol/L (-2-2) Oxygen Delivery Device VENTILATOR Blood Gas Ventilator Setting PRVC-AC Blood Gas Inspired Oxygen 35 % Imaging Last 24 hours Impressions Chest X-Ray 12/27/17 06 Signed Impressions: Service Date/Time: Wednesday, December 27, 2017 03:00 - CONCLUSION: 1. Stable left basilar consolidation with possible associated effusion. 2. Right-sided thoracostomy tube. No obvious pneumothorax the current study. Right lung is clear. 3. Stable position of life support tubes as detailed above. Stable bilateral deep tissue emphysematous changes about the chest. Omid Traore MD Last 24 hours Impressions Chest X-Ray 12/26/17 06 Signed Impressions: Service Date/Time: Tuesday, December 26, 2017 04:58 - CONCLUSION: 1. Decreased size right apical pneumothorax. 2. Stable patchy infiltrates at the left lung base. Shaq Eisenberg MD Last 24 hours Impressions Chest X-Ray 12/23/17 06 Signed Impressions: Service Date/Time: November 04:04 - CONCLUSION: 1. Right- sided chest tube without pneumothorax. 2. Left basilar density, unchanged. Nikujn Oneil MD Last 24 hours Impressions Chest X-Ray 12/22/17 06 Signed Impressions: Service Date/Time: Friday, December 22, 2017 04:38 - CONCLUSION: 1. Right chest tube with tiny right pneumothorax. Right central lines remain unchanged. Slight improvement in left basilar airspace disease with small effusions. Tera Gibson MD Last Impressions Chest X-Ray 12/11/17 0000 Signed Impressions: Service Date/Time: Monday, December 11, 2017 10:51 - CONCLUSION: Stable chest with moderate subcutaneous emphysema and no pneumothorax. Torin Dennison MD FACR Liver Ultrasound 12/09/17 0000 Signed Impressions: Service Date/Time: November 19:18 - CONCLUSION: 1. Limited suboptimal examination with only a small portion of the liver visualized. 2. The gallbladder and common bile duct could not be visualized. The pancreas is not evaluated. 3. Left pleural effusion. Liang Jimenez MD Head CT 12/08/17 0000 Signed Impressions: Service Date/Time: Friday, December 08, 2017 08:25 - CONCLUSION: Negative for acute process. Torin Dennison MD FACR Catheter Placement X-Ray 12/02/17 0000 Signed Impressions: Service Date/Time: November 10:47 - CONCLUSION: Uncomplicated right internal jugular Vas-Cath placement as above. incidental note is made of subcutaneous emphysema within the chest wall and neck Con Dennison MD Lower Extremity Ultrasound 11/29/17 0000 Signed Impressions: Service Date/Time: Wednesday, November 29, 2017 22:02 - CONCLUSION: Normal examination. Abdiel Mcintyre MD Renal Ultrasound 11/28/17 0000 Signed Impressions: Service Date/Time: Tuesday, November 28, 2017 20:30 - CONCLUSION: Nondiagnostic exam. Rashad Bose MD Objective Remarks General - elderly gentleman, trached, on ventilator, weak, ill-appearing HEENT - pupils equal, reactive, sclerae anicteric, trach in place, RIJ HD catheter - site clean, right subclavian central line -site is clean CV - irregular heart sounds, no murmurs, rubs or gallops appreciated Chest - decreased air entry at bases b/l, still with coarse breath sounds bilateral, no wheezes, right-sided chest tube on suction, no air leak Abdomen - soft, non-tender, distended, BS present, PEG tube in place Skin - cyanosis over bilateral toes, unchanged; crepitus on palpation over the face, upper chest and neck unchanged Extremities - warm, 3+ pitting edema, + peripheral pulses Neuro - awake but not following any commands A/P Problem List: (1) A-fib ICD Code: I48.91 - Unspecified atrial fibrillation (2) CHF (congestive heart failure) ICD Code: I50.9 - Heart failure, unspecified Status: Chronic (3) HTN (hypertension) ICD Code: I10 - Essential (primary) hypertension Status: Chronic (4) ADRIAN (obstructive sleep apnea) ICD Code: G47.33 - Obstructive sleep apnea (adult) (pediatric) Status: Chronic (5) MRSA pneumonia ICD Code: J15.212 - Pneumonia due to Methicillin resistant Staphylococcus aureus Status: Acute (6) Diabetes mellitus type 2, insulin dependent ICD Code: E11.9 - Type 2 diabetes mellitus without complications; Z79.4 - long term care phlebotomist (current) use of insulin Status: Chronic (7) COPD (chronic obstructive pulmonary disease) ICD Code: J44.9 - Chronic obstructive pulmonary disease, unspecified Status: Acute (8) Respiratory distress ICD Code: R06.03 - Acute respiratory distress Status: Acute (9) Leukocytosis ICD Code: D72.829 - Elevated white blood cell count, unspecified Status: Acute (10) Lung consolidation ICD Code: J18.1 - Lobar pneumonia, unspecified organism Status: Acute (11) Anxiety ICD Code: F41.9 - Anxiety disorder, unspecified Status: Chronic (12) Failure to wean from mechanical ventilation ICD Code: Z99.11 - Dependence on respirator [ventilator] status Assessment and Plan Neurologic: Encephalopathy, metabolic -unchanged Anxiety Neuro checks per ICU protocol EEG: Mild- mod encephalopathy. Neuro- Dr. Anne. CT brain 12/08 no acute process No sedation Respiratory: Acute respiratory failure on mechanical ventilation- extubated and reintubated night of 11/18 after he was noted to choke on water provided by family COPD exacerbation -resolved Pneumonia-MRSA, MDR Pseudomonas Right sided pneumothorax following CPR status post pigtail catheter/chest tube placement 11/27 Obstructive sleep apnea Home O2 dependency Continue with vent support keep sats >90%. s/p Trach 12/14/17 Continue PRVC, respiratory rate increased to 24 due to worsening hypercapnia. Peak airway pressure at 30 Daily CPAP trials as tolerated. Today he did not tolerate CPAP so far Bronchodilators Pulmonology - Dr Price Right sided chest tube placed on suction. Decrease suction to -20 Daily chest x-ray The subcu emphysema neck chest and face Cardiovascular: Shock most likely septic -continues to require phenylephrine infusion Cardiac arrest - asystole, status post CPR 11/27 A. fib RVR History of CHF CAD Peripheral cyanosis/early gangrene of the toes Phenylephrine remains off for now Continue digoxin every 48 hours and amiodarone Check digoxin level on 12/26 Cardizem, Eliquis and atorvastatin on hold Slow hydrocortisone taper Cardiology - Dr. Parker. Echo showed EF 65-70% Renal: DAVID Monitor renal function, electrolytes replacement as needed Nephrology Dr. Ragland. 12/02 Vas-Cath placed for initiation of IHD HD per nephrology FEN/GI: Elevated LFT's GERD Monitor LFT's, US liver on 12/06: non diagnostic study US liver 12/09 limited study. Hepatitis profile is negative On tube feeds On Nepro @40cc/hr. Pepcid for GI prophylaxis 12/03 PEG tube placement ID: Pneumonia MRSA, MDR Pseudomonas Leukocytosis Septic shock Continue antibiotics per ID Stool for C. difficile negative on 11/29 and 12/06 Pertinent cultures Sputum culture growing Aspergillus 12/14 Urine yeast 12/09 BC: NGTD 12/08 Urine cx: C. Glabrata 12/06, 12/16 Sputum cx: Pseudomonas MDR 11/16 sputum cultures- Kleb pneumonia 11/26 sputum cultures growing multidrug resistant Pseudomonas/MRSA 11/28 urine culture growing yeast 11/26 blood culture neg Heme Thrombocytopenia HIT antibody positive AUGUSTA negative. Argatroban discontinued by Dr. Quintana. Endocrine: Glucose monitoring per ICU protocol -- SSI(high scale) Levemir 5u Q12 Msk: Polyneuropathy of Critical Illness Continue PT, OT Prophylaxis: GI Prophylaxis Famotidine BID -- SCDs Holding home dose Eliquis 5 mg BID on 11/27 in view of thrombocytopenia and renal failure Argatroban discontinued HIT AUGUSTA negative Started heparin subcu every 12 hours 12/17/2017, hold due to platelet count being 53, restarted on 12/20 Lines: Left IJ central line placed 11/29-DCd 12/17. New Left central line subclavian placed 12/16/17 Right IJ vascath 12/23 Palliative care is following Patient remains critically ill requiring mechanical ventilation and vasopressors and he is at very high risk for further decompensation and . Discussed with present at bedside. Tentative plan for transfer to [facility] Family at bedside Level 3 follow-up Physician Lacy Rodriguez Problem Qualifiers (1) COPD (chronic obstructive pulmonary disease): Qualified Codes: J44.9 - Chronic obstructive pulmonary disease, unspecified (2) Leukocytosis: Qualified Codes: D72.829 - Elevated white blood cell count, unspecified Lacy Rodriguez MD December 28, 2017 09:32
[2017-12-28] MEDS: ALBUMIN 25% INJ 100 ML IV PRN (09:35)
[2017-12-28] MEDS ORDERED: HYDROCORTISONE SOD SUCCINATE 100 MG VIAL IV PUSH SCH (11:00)
[2017-12-28] MEDS: EPOETIN ALFA 10,000 UNITS/ML VIAL IV PUSH PRN (11:47)
[2017-12-28] MEDS: HEPARIN SODIUM - IV 10,000 UNITS/10 ML VIAL PRN (11:50)
[2017-12-28] MEDS: SODIUM CHLOR 0.9% 1000 ML INJ 1,000 ML OTHER PRN (11:50)
[2017-12-28] MEDS: GENTAMICIN SULFATE 20 MG/2 ML VIAL OTHER PRN (11:50)
--- NOTE | 2017-12-28 13:16 | HHI.DS ---
Discharge Summary Admission Date Nov 14, 2017 at 15:39 Admitting Diagnosis RESPIRATORY DISTRESS; COPD; SEPSIS; PNA Brief History This is a 77-year-old male with a medical history significant for COPD, CHF, A. fib, diabetes, that presented to emergency department from [facility] for evaluation of worsening shortness of breath over the last 3 days. The patient was been given Solu-Medrol 125 mg and 2 albuterol treatments enroute to ED. Upon presentation to the ED the patient was on a nonrebreather. He was tachypneic and tachycardic. Patient's medical history significant for MRSA pneumonia previously admitted on 10/27/16 for approximately 12 days at [facility]. The patient is normally on 2.5 L/m nasal cannula O2 home dependency, and he lives with ( normally) a PCO2 in the 80s according to his . Patient was then discharged to [facility], and then transferred to [facility] for rehabilitation. He has been on an unknown antibiotic per the family and steroids for the last 3 days. Laboratory and imaging studies were performed with noted elevation in CO2 The patient was given empiric antibiotics in the ED and placed on BiPAP. Critical care medicine was consulted. History PFSH Past Medical History Atrial Fibrillation: Yes Anxiety: Yes Depression: No Cancer: No Cardiovascular Problems: Yes (CHF HTN ) Congestive Heart Failure: Yes COPD: Yes Diabetes: Yes Diminished Hearing: No Endocrine: Yes GERD: Yes Genitourinary: No Hypertension: Yes Musculoskeletal: No Neurologic: No Psychiatric: Yes Reproductive: No Respiratory: Yes (COPD) Immunizations Current: Yes Past Surgical History Abdominal Surgery: No Cardiac Surgery: Yes (ABLATION 2002) Genitourinary Surgery: No Thoracic Surgery: No Social History Alcohol Use: No Tobacco Use: Yes Substance Use: No Allergies-Medications Allergies-Medications (Allergen,Severity, Reaction): Coded Allergies: aspirin (Unverified Allergy, Severe, 11/14/17) codeine (Verified Allergy, Severe, 11/14/17) Reported Meds & Prescriptions Reported Meds & Active Scripts Active Prednisone 10 Mg Tab 10 Mg PO DIRECTED 30 Days 30mg po bid x 3 days, 20mg po bid x 4 days then 20mg po daily Novolog Inj (Insulin Aspart) 100 Unit/Ml Inj 1-12 Units SQ ACHS SLIDING SCALE 30 Days Linezolid 600 Mg Tab 600 Mg PO Q12H 7 Days Reported Lopressor (Metoprolol Tartrate) 50 Mg Tab 50 Mg PO BID Duoneb (Ipratropium-Albuterol Neb) 0.5-2.5 Mg/3 Ml Neb 3 Ml NEB TID Tylenol (Acetaminophen) 325 Mg Tab 650 Mg PO Q4H PRN Combivent Respimat Inh (Ipratropium-Albuterol Inh) 20-100 [facility]/Act Aero 1 Puff INH QID Thera-M (Multiple Vitamins W/ Minerals) 1 Tab 1 Tab PO DAILY Diltiazem (Diltiazem HCl) 60 Mg Tab 60 Mg PO QID Potassium Chloride ER (Potassium Chloride) 10 Meq Cap 10 Meq PO BID Bumetanide 2 Mg Tab 2 Mg PO BID Eliquis (Apixaban) 5 Mg Tab 5 Mg PO BID Lactulose Liq (Lactulose) 10 Gm/15 Ml Soln 15 Ml PO BID PRN Colace (Docusate Sodium) 100 Mg Capsule 100 Mg PO BID Lantus Inj (Insulin Glargine) 1,000 Unit/10 Ml Vial 60 Units SQ HS Asmanex 120 Act Twisthaler (Mometasone 120 Act Inh) 220 Mcg/Act Inh 1 Puff INH HS Gabapentin 300 Mg Cap 300 Mg PO HS Atorvastatin (Atorvastatin Calcium) 80 Mg Tab 80 Mg PO HS Miralax Powder (Polyethylene Glycol 3350 Powder) 17 Gm Powd 17 Gm PO DAILY Mix and dissolve one measuring capful (17 grams) in water or juice. Stiolto Respimat Inh (Tiotropium-Olodaterol Inh) 2.5-2.5 Mcg/Act Aero 2 Puff INH DAILY Digoxin 0.125 Mg Tab 0.125 Mg PO DAILY Alfuzosin ER 24 HR 10 Mg Tab 10 Mg PO DAILY Omeprazole 20 Mg Tab 20 Mg PO DAILY ROS Review of Systems Except as stated in HPI: all other systems reviewed are Neg CBC/BMP: 12/28/17 0530 12/28/17 0530 Significant Findings Laboratory Tests Test 12/26/17 04:51 12/26/17 05:38 12/27/17 04:30 12/27/17 05:35 Red Blood Count 3.02 MIL/MM3 (4.50-5.90) 3.33 MIL/MM3 (4.50-5.90) Hemoglobin 8.8 GM/DL (13.0-17.0) 9.5 GM/DL (13.0-17.0) Hematocrit 27.5 % (39.0-51.0) 30.5 % (39.0-51.0) Mean Corpuscular Hemoglobin Concent 31.9 % (32.0-36.0) 31.1 % (32.0-36.0) Red Cell Distribution Width 22.0 % (11.6-17.2) 22.5 % (11.6-17.2) Neutrophils (%) (Auto) 79.8 % (16.0-70.0) 86.0 % (16.0-70.0) Neutrophils # (Auto) 7.9 TH/MM3 (1.8-7.7) 10.2 TH/MM3 (1.8-7.7) Neutrophils % (Manual) 78 % (16-70) 76 % (16-70) Lymphocytes % 8 % (9-44) 8 % (9-44) Monocytes % 9 % (0-8) Neutrophils # (Manual) 8.2 TH/MM3 (1.8-7.7) 10.4 TH/MM3 (1.8-7.7) Myelocytes 1 % (0-0) 3 % (0-0) Promyelocytes 1 % (0-0) Nucleated Red Blood Cells 2 /100 WBC (0-0) 1 /100 WBC (0-0) Ovalocytes 1+ (NORMAL) 1+ (NORMAL) Stomatocytes 1+ (NORMAL) Blood Urea Nitrogen 62 MG/DL (7-18) 83 MG/DL (7-18) Creatinine 2.00 MG/DL (0.60-1.30) 2.49 MG/DL (0.60-1.30) Random Glucose 185 MG/DL (74-106) 155 MG/DL (74-106) Total Protein 5.9 GM/DL (6.4-8.2) 5.5 GM/DL (6.4-8.2) Calcium Level 8.2 MG/DL (8.5-10.1) 8.1 MG/DL (8.5-10.1) Phosphorus Level 1.9 MG/DL (2.5-4.9) 2.4 MG/DL (2.5-4.9) Alkaline Phosphatase 230 U/L (45-117) 232 U/L (45-117) Estimat Glomerular Filtration Rate 33 ML/MIN (>89) 25 ML/MIN (>89) Venous Blood pH 7.31 (7.360-7.400) 7.28 (7.360-7.400) Venous Blood Partial Pressure CO2 59 mmHg (44-48) 60 mmHg (44-48) Venous Blood HCO3 29 mmol/L (22-26) 27 mmol/L (22-26) Venous Blood Oxygen Saturation 60 % (70-76) 65 % (70-76) Venous Blood Oxygen Content 7.0 Vol % (9.0-17.0) 8.7 Vol % (9.0-17.0) Venous Blood Base Excess 3.2 mmol/L (-2-2) White Blood Count 11.9 TH/MM3 (4.0-11.0) Lymphocytes (%) (Auto) 7.5 % (9.0-44.0) Lymphocytes # (Auto) 0.9 TH/MM3 (1.0-4.8) Metamyelocytes 2 % (0-1) Polychromasia 2.6 % (0.0-1.9) Test 12/28/17 05:30 12/28/17 05:32 White Blood Count 12.7 TH/MM3 (4.0-11.0) Red Blood Count 3.44 MIL/MM3 (4.50-5.90) Hemoglobin 9.6 GM/DL (13.0-17.0) Hematocrit 31.5 % (39.0-51.0) Mean Corpuscular Hemoglobin Concent 30.6 % (32.0-36.0) Red Cell Distribution Width 22.5 % (11.6-17.2) Neutrophils (%) (Auto) 80.1 % (16.0-70.0) Monocytes (%) (Auto) 8.6 % (0.0-8.0) Neutrophils # (Auto) 10.2 TH/MM3 (1.8-7.7) Monocytes # (Auto) 1.1 TH/MM3 (0-0.9) Toxic Granulation 1+ (NORMAL) Ovalocytes 1+ (NORMAL) Blood Urea Nitrogen 107 MG/DL (7-18) Creatinine 3.07 MG/DL (0.60-1.30) Random Glucose 200 MG/DL (74-106) Total Protein 5.4 GM/DL (6.4-8.2) Albumin 3.3 GM/DL (3.4-5.0) Calcium Level 8.3 MG/DL (8.5-10.1) Alkaline Phosphatase 256 U/L (45-117) Potassium Level 3.3 MEQ/L (3.5-5.1) Chloride Level 96 MEQ/L (98-107) Estimat Glomerular Filtration Rate 20 ML/MIN (>89) Venous Blood pH 7.25 (7.360-7.400) Venous Blood Partial Pressure CO2 60 mmHg (44-48) Venous Blood Partial Pressure O2 46 mmHg (35-40) Imaging Last Impressions Chest X-Ray 12/28/17 0600 Signed Impressions: Service Date/Time: Thursday, December 28, 2017 05:34 - CONCLUSION: 1. Stable left basilar airspace process/effusion with some developing right basilar airspace disease/atelectasis. 2. Stable position of life support tubes. Stable deep tissue emphysematous changes about the hemithoraces Omid Traore MD Catheter Placement X-Ray 12/23/17 0000 Signed Impressions: Service Date/Time: November 16:21 - CONCLUSION: Uncomplicated line exchange as above. 15 cm catheter was exchanged for a 24 cm catheter. Omid Traore MD Liver Ultrasound 12/09/17 0000 Signed Impressions: Service Date/Time: November 19:18 - CONCLUSION: 1. Limited suboptimal examination with only a small portion of the liver visualized. 2. The gallbladder and common bile duct could not be visualized. The pancreas is not evaluated. 3. Left pleural effusion. Liang Jimenez MD Head CT 12/08/17 0000 Signed Impressions: Service Date/Time: Friday, December 08, 2017 08:25 - CONCLUSION: Negative for acute process. Torin Dennison MD FACR Lower Extremity Ultrasound 11/29/17 0000 Signed Impressions: Service Date/Time: Wednesday, November 29, 2017 22:02 - CONCLUSION: Normal examination. Abdiel Mcintyre MD Renal Ultrasound 11/28/17 0000 Signed Impressions: Service Date/Time: Tuesday, November 28, 2017 20:30 - CONCLUSION: Nondiagnostic exam. Rashad Bose MD Hospital Course This is a 77-year-old male with a medical history significant for COPD, CHF, A. fib, diabetes, that presented to emergency department from [facility] for evaluation of worsening shortness of breath over the last 3 days. The patient was been given Solu-Medrol 125 mg and 2 albuterol treatments enroute to ED. Upon presentation to the ED the patient was on a nonrebreather. He was tachypneic and tachycardic. Patient's medical history significant for MRSA pneumonia previously admitted on 10/27/16 for approximately 12 days at [facility]. The patient is normally on 2.5 L/m nasal cannula O2 home dependency, and he lives with ( normally) a PCO2 in the 80s according to his . Patient was then discharged to [facility], and then transferred to [facility] for rehabilitation. He has been on an unknown antibiotic per the family and steroids for the last 3 days. Laboratory and imaging studies were performed with noted elevation in CO2 The patient was given empiric antibiotics in the ED and placed on BiPAP. Critical care medicine was consulted. Subjective: 11/15: Patient maintained on BiPAP throughout the night O2 saturations 97-98% on FiO2 of 0.40. Hemodynamically stable. Attempts made to wean patient to nasal cannula this a.m. unsuccessful, patient's O2 saturation in the 70s, patient placed back on BiPAP. Chest x-ray pending WBC count significantly diminished, leukocytosis resolved. Patient extremely anxious, Precedex infusion initiated. 11/16: Late entry note. Patient seen 10 AM. Overnight the patient converted to A. fib RVR, despite being on Cardizem 4 times a day and metoprolol twice a day- home medications, the patient received IV Cardizem followed by amiodarone infusion. Per report the patient became hypotensive, Cardizem discontinued. Amiodarone continued. Early this a.m. patient was resting comfortably A. fib rate controlled rate. The patient suddenly converted to A. fib RVR heart rate 150s-160s, acute hypoxemic respiratory failure, requiring intubation. The patient was intubated uneventfully and continues on amiodarone at 0.5 mg/hour, rate now controlled in conjunction with sedation. Cardiology consulted, his photonic laboratory technician is Dr. Reyes X-ray revealed lung consolidation improved, chest x- ray clear. Plan for CPAP trials in a.m.. 11/17: No acute events overnight. Patient had 1 short 8 beat run of V. tach last evening was self resolution, electrolytes within normal limits. The patient continues on amiodarone 0.5 mg/hr. CPAP trials initiated this a.m.. Tube feeds initiated at trickle feeds. Patient converted to sinus rhythm at 2 AM. 11/18 Patient remains sedated and intubated. Afebrile. 11/19 Patient was extubated yesterday however last night he was noted to choke on water provided by the family. Stat ABG demonstrated acute hypercapnic respiratory failure and was emergently intubated. Currently sedated and intubated. 11/20 Patient remains intubated on Fentanyl drip however he si awake and alert. Afebrile. 11/21 Patient is awake and alert placed on CPAP with PS:15, PEEP:5. Afebrile. 11/22 Patient remains intubated , did not tolerate CPAP trials yesterday as he became tachycardic and hypertensive. On no sedation awake and alert. 11/23 No events overnight, off sedation. 11/24: Resting comfortably on mechanical ventilation currently. Daily C Pap trials ongoing. 11/25: Sedated with Precedex, orally intubated on mechanical ventilation. Daily C Pap trials 11/26: Sedated with Precedex, orally intubated on mechanical ventilation. Got tachypneic with CPAP trial today hence placed back on PRVC. Spiked a fever, garcia cultures ordered. Went into A. fib with RVR subsequently for which being initiated on amiodarone bolus followed by drip and Lopressor 5 mg IV every 6 as needed for 11/27: This morning patient developed bradycardia followed by asystole for which she had 3 minutes CPR with ACLS protocol with return of spontaneous circulation. Post code chest x-ray revealed moderate to large right pneumothorax for which a right pigtail catheter was placed by me however despite airleak patient continue have moderate to large pneumothorax hence a second right sided 28 Slovak chest tube was placed to -40 cm water pressure. Air leaks 1+ in both pigtail catheter and chest tube. Patient remains in a flutter currently. Dr. reyes evaluated patient as well following cardiac arrest. 11/28: Sedated, arousable, orally intubated on mechanical ventilation. Worsening renal function noted. MDR Pseudomonas in sputum. Right sided chest tube/ pigtail catheter with 1+ air leak in both. Subcutaneous emphysema noted over right side of face neck and right upper extremity. On 50% FiO2, PEEP +5. Poor urine output for which 500 cc and is bolus given earlier. Treated for hyperkalemia with Kayexalate PO, glucose insulin, calcium IV. 2: Remains sedated, arousable, orally intubated on mechanical ventilation. A. fib with RVR this morning for which she was loaded with amiodarone and initiated on amiodarone drip. Spiking fever 103.5. ID adjusting antibiotics. Stool for C. difficile ordered as he had some diarrhea today though received Kayexalate yesterday for hyperkalemia. Pigtail catheter on the right side appeared to be dislodged hence this was removed. 28 Slovak chest tube in right pleural cavity repositioned. 11/30: Late entry note , patient seen at 12 noon. Creatinine continues to trend upward.Sedated but easily arousable. 12/01: Patient lightly sedated, following commands this a.m.. Creatinine noted increased, possible dialysis consideration for tomorrow. Patient to be diuresed today. CPAP trial initiated failed after 5 minutes, repeat this afternoon. 12/02: Patient placed on Lasix infusion throughout the night . No renal improvement,creatinine worsened today , plan for Vas-Cath placement and IHD today. This extensive discussion with patient and plans for tracheostomy and PEG tube placement secondary to failure to wean. 12/03: Late entry note, patient seen at 11 am. Patient scheduled for PEG placement today by Dr. Iglesias. Patient continues to fail CPAP trials. Plan for tracheostomy in the near future 12/04: Late entry note . Patient seen earlier this am. Overnight the patient became hypoglycemic, secondary to n.p.o. status, post PEG placement. D10 was initiated at 30 cc/hr. Tube feeds reinitiated Jevity 1.5, 24 hours post PEG tube placed, D10 discontinued. Patient remains on fentanyl at 100 mics/hour, lightly sedated. Patient denies pain answering by nodding head to yes and no questions. Tracheostomy planned for Wednesday12/06/[address] Calderon. 12/05: Remains intubated sedated with 50 mcg of fentanyl. On attempted CPAP trial patient remained dyspneic. Significant neuromuscular weakness persist. Chest x-ray shows small right apical pneumothorax. Tentatively plan for tracheostomy tomorrow. Dr. Calderon has already been consulted 12/06 Patient remains intubated for possible trach today. On Levophed 12 mics. Afebrile. 12/07 No events overnight. Trach was placed on hold yesterday as patient was on Levophed. He is down to 5 mics today. Afebrile. 12/08 Patient remains intubated on no sedation. CT brain this morning showed no acute process. Off Levophed. 12/09 Patient was placed back on Levophed 6 mics. Afebrile. Remains intubated on no sedation. 12/10 Patient remains intubated. On Neosyn 40 mics went into Afib with RVR HR 128 12/11 Patient remains intubated. Now on Neosyn 200 mics ( MAP 86mmHg). s/p HD yesterday with 1.5L removed. T:99.7 12/12 Patient remains sedated and intubated. Neosyn down 100 mics. For transfusion 2u PRBC and 1u PLT ( Hgb 6.7 and PLT 18 this morning) s/p HD with 3L removed yesterday. WBC is trending down. 12/13: More critically ill today, Bertin-Synephrine had to be increased to 150 mcg/ min, remains borderline hypotensive despite Bertin-Synephrine, currently in A. fib with RVR. Digoxin additional 0.25 mg IV push 1, start amiodarone infusion 12/14: Patient remains patient remains intubated currently on 50 mcg/min of Bertin- Synephrine. Remains on amiodarone infusion with heart rate better controlled 110-120. Plan for perc trach at bedside today 12/15: Remains on Bertin-Synephrine 50 mcg/min. On attempted CPAP patient had multiple PVCs and PACs. Potassium 2.7 getting replaced. Argatroban will be restarted 12/16: Patient is more lethargic, profoundly hypotensive Bertin-Synephrine increase to 300 mcg/min. Possibly septic shock. Currently on micafungin backside Levaquin and Flagyl. Add gram-positive coverage with vancomycin send blood cultures. Also will also change central line today-cleared by Dr. Vela to use subclavian access 12/17: Hypertensive encephalopathic Bertin-Synephrine at 100 mcg/min. new right subclavian central line placed left IJ will be sent for culture. Currently in A. fib with RVR heart rate varying from 110s-130. If persistent will give 2.5 metoprolol. AUGUSTA negative and argatroban discontinued. Start heparin subcu for DVT prophylaxis 12/18: Patient remains critically currently on 140 mcg/min of Bertin-Synephrine. Tachypneic with agonal appearing breathing on CPAP trial. Chest x-ray remains unchanged. Platelet count is 54 today, will hold subcu heparin. 12/19: Afebrile. Patient failed CPAP trials today. Patient underwent dialysis 3 L off today. Patient continues on vasopressor support with phenylephrine. Labs pending. Placed right chest tube to waterseal. 12/20: Continues to be critical currently on 200 mcg/min of Ecj-Saousntmjy-flkfx is increased from yesterday, remains hypotensive. Atrial fibrillation with RVR persist. Will restart IV amiodarone in an attempt to cardiovert due to hypotension. However I do not believe his hypotension is due to A. fib with RVR , hypotension is mostly from sepsis. There is no indication for DC cardioversion. New sputum culture shows Pseudomonas intermediately sensitive to Levaquin. Continue Zerbaxa and vanc, and micafungin per ID. DC Levaquin and metronidazole if okay with ID 12/21: No events over the night. Patient continues to require phenylephrine infusion, currently at 120 mcg/minute. Patient is awake, following some commands. T-max of 99.7. Minimal urine output. Right-sided chest tube to waterseal. 12/22: No events over the night. Patient on pressure support of 18 with good tidal volumes but low respiratory rate. He is awake, weak, tracking. present at bedside. Right-sided chest tube to waterseal. Small residual right pneumothorax on chest x-ray. 12/23: No events over the night. T-max of 98.8. Slight increase in subcutaneous emphysema over the right side. On morning chest x-ray pneumothorax , chest tube placed back on suction. 12/24: No events over the night. Subcutaneous emphysema improving. Morning chest x-ray still shows a very small residual right-sided pneumothorax. Right- sided chest tube on suction with small air leak. Patient is awake, tracking. present at bedside. 12/25: He was weaned off phenylephrine yesterday and he remained off so far. Had HD done this a.m. 3.2 L fluid removal. Subcutaneous emphysema is improved, right-sided chest tube remains on suction with no air leak. Morning chest x- ray reviewed, no change compared to yesterday. Afebrile over the night with a T -max of 99.5 over the last 24 hours. 12/26: No events over the night. Patient remains off pressors. Morning chest x- ray reviewed, decrease in size of right apical pneumothorax. Chest tube has no air leak and remains on suction. Patient did not tolerate morning CPAP due to episodes of apnea. Slightly improved in subcutaneous emphysema. present at bedside. 12/27: No events over the night. Patient did not tolerate CPAP trial this morning. Morning chest x-ray reviewed, no clear evidence of pneumothorax. Chest tube remains on suction, decreased to -20, no auto PEEP. Subcutaneous emphysema is about the same. T-max of 99.8. 12/28: Patient not tolerating CPAP trials. Tentative plan for [facility]. SQ Emphysema remains unchanged. Patient undergoing hemodialysis at this time. 12/28: 1315 patient to be transferred/discharged to [facility]. Pt Condition on Discharge: Stable Discharge Disposition: Trnsfr to Other Facility Discharge Instructions DIET: Follow Instructions for: On Tube Feeding Activities you can perform: Continue Bedrest Additional Information Addendum: Patient was transferred to [facility] and placed on transport ventilator. Per report by EMS Mr. Warren ventilator settings were changed to pressure support mode. The patient was transferred reported to the elevator at which point was noted to have acute desaturation O2 saturations 70's and asystole on the transport monitor. The patient was transported back to room ACLS protocol was initiated for 33 minutes. The patient at 1514. Lacy Rodriguez MD December 28, 2017 13:16
[2017-12-28] MEDS ORDERED: EPINEPHrine HCL (1:1000) 1 MG/ML VIAL ONE (14:56)
--- NOTE | 2017-12-28 16:13 | PD.PROCEDR ---
Procedure Note Procedure Date:12/28/2017 Procedure: Cardiopulmonary resuscitation Indication: Asystole Cardiac arrest Details of procedure: The patient was being transported to [facility]. The patient was transferred on a stretcher and placed on the transport ventilator by EMS technicians/staff and transported to the elevator. At the elevator, the patient was noted to have acute desaturation per report from EMS imaging technician, Mr. Warren, O2 saturation was in the 70s , per report of EMS imaging technician and corroborated per report of Mrs. Varela in a later conversation. Mr Warren informed me that the tidal volume wasextremely low, 10-30 cc per breath , monitor revealed asystole , and the patient was transported back to hospital room. Upon my notification and entering the room ACLS in progress, the patient was noted to be in asystole cardiac arrest, 1 amp of epinephrine had been given. Per ACLS protocol, patient received CPR, manual bag-valve ventilation via ETT, epinephrine and calcium chloride, Sodium bicarbonate, normal saline 1 L IV(refer to code sheet). Mrs. Varela desired to be present did not want to leave the room, and and hospital news operations manager Rayshawn Santo were present during the code. After approximately 33 minutes resuscitation we were unable to restore spontaneous circulation. Patient was pronounced at 1514. The family was notified ,present at bedside by Dr. Rodriguez. Lacy Rodriguez MD December 28, 2017 16:12
--- NOTE | 2017-12-28 16:57 | HHI.NPPN ---
Subjective Renal Failure: Acute History of Present Illness This is a 77-year-old male with past medical history of ischemic heart disease, atrial fibrillation, congestive heart failure, possibly diastolic dysfunction, diabetes mellitus, chronic obstructive pulmonary disease, was admitted on 11/14 with respiratory distress. Nephrology was called to see the patient because of elevated BUN and creatinine. The patient has creatinine of 1.1 on admission, which increased after 2 or 3 to 1.3-1.5 and for the last 2 days, it has been going up and now it is 2.8. The patient was initially diagnosed with pneumonia and was started on antibiotics and then later on, patient developed respiratory failure and was intubated. He was also found to have asystole on 11/27 for 3 minutes and CPR was done with ACLS protocol, and it was shown that he has large right-sided pneumothorax. The blood pressure has been stable and there are no significant hypotensive episodes documented. Most of the history was taken from he patient' s chart. Additional Remarks Remains intubated with trach. Blood pressure is stable off pressors. Seen early in the afternoon, for transfer to [facility]. Review of Systems General General Remarks Unable to do ROS as patient is intubated Objective Data Data 12/28/17 12/29/17 19:00 07:00 Output Total 1000 ml Balance -1000 ml Hemodialysis 1000 ml Vital Signs Date Time Temp Pulse Resp B/P (MAP) Pulse Ox O2 Delivery O2 Flow Rate FiO2 12/28/17 12:50 100 35 12/28/17 12:00 89 12/28/17 12:00 35 12/28/17 12:00 99.3 104 24 104/89 (94) 100 12/28/17 11:30 115 99/59 12/28/17 11:15 115 97/57 12/28/17 11:00 112 88/51 12/28/17 10:53 100 35 12/28/17 10:30 117 86/51 12/28/17 10:15 111 76/52 12/28/17 10:00 109 12/28/17 08:30 97 114/68 12/28/17 08:15 103 96/62 12/28/17 08:00 99.1 107 24 111/61 (78) 100 12/28/17 08:00 107 12/28/17 08:00 35 12/28/17 08:00 101 95/62 5/1/18 07:45 100 111/61 12/28/17 07:30 97 83/51 12/28/17 07:17 100 35 12/28/17 06:00 102 12/28/17 04:35 100 35 12/28/17 04:00 105 12/28/17 04:00 35 12/28/17 04:00 99.4 105 24 104/59 (74) 99 12/28/17 02:00 103 12/28/17 00:09 100 35 12/28/17 00:00 99.6 103 25 92/52 (65) 100 12/28/17 00:00 103 12/28/17 00:00 35 12/27/17 22:00 95 12/27/17 21:44 100 35 12/27/17 20:00 35 12/27/17 20:00 99.3 96 31 78/51 (60) 100 12/27/17 20:00 96 12/27/17 18:00 93 -: 12/28/17 0530 12/28/17 0530 Tubes & Lines: Vas-Cath, Haynes Physical Exam General Appearance: Obese Eyes Eye Exam: Pupils Equal Pulmonary Resp Exam: Breath Sounds Equal Cardiology CV Exam: Regular Gastrointestinal/Abdomen GI Exam: Soft, Non-Tender, Distended Genitourinary Exam: Flank Non-Tender Integumentary Skin Exam: Clear, Warm Extremeties Extremities Exam: Moderate Edema Neurologic Neuro Exam: Awake Assessment/Plan Assessment Summary: DAVID/Acute Renal Failure Problem List: (1) DAVID (acute kidney injury) ICD Codes: N17.9 - Acute kidney failure, unspecified Plan: Acute kidney injury most likely related to acute tubular necrosis, either from the infection or related to his cardiac status and cardiac arrest. Creatinine is stable but minimal urinary output Continues on matilda matilda- synephrine for blood pressure support blood pressure improving Plan Remains anuric, dependent on HD Plan next HD Wednesday, continue TTS HD. Continue for follow UOP and BMP Avoid nephrotoxins as possible. Mannitol and Albumin with HD. Epogen with dialysis. Patient seen and examined, agree with above. No improvement in the renal function, HD to continue for now. For transfer to [facility]. D/W the at bed side. (2) Respiratory failure ICD Codes: J96.90 - Respiratory failure, unspecified, unspecified whether with hypoxia or hypercapnia Plan: Intubated weaning per [employer]. (3) Thrombocytopenia ICD Codes: D69.6 - Thrombocytopenia, unspecified Plan: Hematology has been consulted and following (4) Anemia ICD Codes: D64.9 - Anemia, unspecified Plan: has received blood transfusion. America Vela MD December 28, 2017 16:57
--- NOTE | 2017-12-28 19:37 | HHI.HCPN ---
Patient was discharged and being transported via stretcher to [facility] for vent weaning when he arrested. He was returned to the room immediately and a CODE BLUE called. His was in attendance during code. I was informed of the code by a nurse, Anders, as the needed support. Upon arriving, the compressed gas equipment mechanicRayshawn was with the , who was understandably, very distraught. Her son, Lucas was contacted and enroute, called his mother. Rayshawn coordinated with compressed gas equipment mechanicCasimiro, to facilitate Lucas's path to the bedside to assist his mother. I stayed with her for support throughout the code, during which, Dr. Rodriguez updated her often as to the outcomes and progress. Once Lucas arrived, Dr. Rodriguez again updated the , Cony, and Lucas that the patient was not responding to any ACLS treatment being given and the code was called. Family was escorted to a private conference room by the clergy for comfort and prayer, to await the arrival of other family members. . Linda Gilbert December 28, 2017 19:37
== END 2017-12-28 15:14 | disposition expired | DRG 4 ==
LOC: NEPE 12:34 → NEDA 15:39 → HIMN 21:40 → UNDODISIN 12-28 14:30
PROVIDERS: ADMIT Anesthesiology; ATTEND Anesthesiology
PROC: 5A09457 Assistance with Respiratory Ventilation, 24-96 Consecutive Hours, Continuous Positive Airway Pressure (ICD-10-PCS; 2017-11-14)
PROC: 5A1945Z Respiratory Ventilation, 24-96 Consecutive Hours (ICD-10-PCS; 2017-11-16)
PROC: 0BH17EZ Insertion of Endotracheal Airway into Trachea, Via Natural or Artificial Opening (ICD-10-PCS; 2017-11-16)
PROC: 0CJS8ZZ Inspection of Larynx, Via Natural or Artificial Opening Endoscopic (ICD-10-PCS; 2017-11-16)
PROC: 5A1955Z Respiratory Ventilation, Greater than 96 Consecutive Hours (ICD-10-PCS; principal; 2017-11-18)
PROC: 0BH17EZ Insertion of Endotracheal Airway into Trachea, Via Natural or Artificial Opening (ICD-10-PCS; 2017-11-18)
PROC: 0WH933Z Insertion of Infusion Device into Right Pleural Cavity, Percutaneous Approach (ICD-10-PCS; 2017-11-27)
PROC: 0W9930Z Drainage of Right Pleural Cavity with Drainage Device, Percutaneous Approach (ICD-10-PCS; 2017-11-27)
PROC: 02HV33Z Insertion of Infusion Device into Superior Vena Cava, Percutaneous Approach (ICD-10-PCS; 2017-11-29)
PROC: 05HM33Z Insertion of Infusion Device into Right Internal Jugular Vein, Percutaneous Approach (ICD-10-PCS; 2017-12-02)
PROC: 5A1D70Z Performance of Urinary Filtration, Intermittent, Less than 6 Hours Per Day (ICD-10-PCS; 2017-12-02)
PROC: 0DH63UZ Insertion of Feeding Device into Stomach, Percutaneous Approach (ICD-10-PCS; 2017-12-03)
PROC: 30233R1 Transfusion of Nonautologous Platelets into Peripheral Vein, Percutaneous Approach (ICD-10-PCS; 2017-12-12)
PROC: 30233N1 Transfusion of Nonautologous Red Blood Cells into Peripheral Vein, Percutaneous Approach (ICD-10-PCS; 2017-12-12)
PROC: 0B113F4 Bypass Trachea to Cutaneous with Tracheostomy Device, Percutaneous Approach (ICD-10-PCS; 2017-12-14)
PROC: 0BJ08ZZ Inspection of Tracheobronchial Tree, Via Natural or Artificial Opening Endoscopic (ICD-10-PCS; 2017-12-14)
PROC: 05HD33Z Insertion of Infusion Device into Right Cephalic Vein, Percutaneous Approach (ICD-10-PCS; 2017-12-16)
PROC: 05HM33Z Insertion of Infusion Device into Right Internal Jugular Vein, Percutaneous Approach (ICD-10-PCS; 2017-12-23)
PROC: 5A12012 Performance of Cardiac Output, Single, Manual (ICD-10-PCS; 2017-12-28)
DX: A41.9 Sepsis, unspecified organism (principal); N17.0 Acute kidney failure with tubular necrosis; R65.21 Severe sepsis with septic shock; J69.0 Pneumonitis due to inhalation of food and vomit; G62.81 Critical illness polyneuropathy; G93.41 Metabolic encephalopathy; Z99.81 Dependence on supplemental oxygen; J15.0 Pneumonia due to Klebsiella pneumoniae; J15.1 Pneumonia due to Pseudomonas; I11.0 Hypertensive heart disease with heart failure; K31.84 Gastroparesis; J96.01 Acute respiratory failure with hypoxia; J96.02 Acute respiratory failure with hypercapnia; J15.212 Pneumonia due to Methicillin resistant Staphylococcus aureus; I50.32 Chronic diastolic (congestive) heart failure; I47.2 Ventricular tachycardia; E87.2 Acidosis; Z99.11 Dependence on respirator [ventilator] status; J44.0 Chronic obstructive pulmonary disease with (acute) lower respiratory infection; J44.1 Chronic obstructive pulmonary disease with (acute) exacerbation; B37.49 Other urogenital candidiasis; E11.52 Type 2 diabetes mellitus with diabetic peripheral angiopathy with gangrene; E87.0 Hyperosmolality and hypernatremia; I48.92 Unspecified atrial flutter; T79.7XXA Traumatic subcutaneous emphysema, initial encounter; J93.82 Other air leak; I27.20 Pulmonary hypertension, unspecified; I48.91 Unspecified atrial fibrillation; F41.9 Anxiety disorder, unspecified; G47.33 Obstructive sleep apnea (adult) (pediatric); D50.9 Iron deficiency anemia, unspecified; K21.9 Gastro-esophageal reflux disease without esophagitis; E66.9 Obesity, unspecified; I25.10 Atherosclerotic heart disease of native coronary artery without angina pectoris; E78.5 Hyperlipidemia, unspecified; E11.649 Type 2 diabetes mellitus with hypoglycemia without coma; E11.43 Type 2 diabetes mellitus with diabetic autonomic (poly)neuropathy; E83.51 Hypocalcemia; E87.6 Hypokalemia; E87.5 Hyperkalemia; F32.9 Major depressive disorder, single episode, unspecified; I95.89 Other hypotension; D69.59 Other secondary thrombocytopenia; G70.9 Myoneural disorder, unspecified; K25.9 Gastric ulcer, unspecified as acute or chronic, without hemorrhage or perforation; I46.9 Cardiac arrest, cause unspecified; Z51.5 Encounter for palliative care; Z68.29 Body mass index [BMI] 29.0-29.9, adult; Z99.2 Dependence on renal dialysis; Z79.4 Long term (current) use of insulin; Z79.899 Other long term (current) drug therapy; Z79.01 Long term (current) use of anticoagulants; Z86.14 Personal history of Methicillin resistant Staphylococcus aureus infection; Z87.891 Personal history of nicotine dependence; Z87.01 Personal history of pneumonia (recurrent)
CPT/HCPCS: 31500; 32551; 36430; 36556; 36600; 70450; 71045; 76705; 76775; 76937; 77001; 80048; 80053; 80074; 80162; 80202; 80375; 81001; 82140; 82306; 82550; 82552; 82565; 82570; 82607; 82728; 82747; 82805; 82948; 83010; 83540; 83550; 83605; 83615; 83735; 83880; 83935; 84100; 84132; 84155; 84300; 84484; 85007; 85014; 85018; 85025; 85027; 85049; 85384; 85610; 85730; 86022; 86403; 86850; 86880; 86900; 86901; 86920; 87040; 87070; 87071; 87077; 87086; 87106; 87107; 87147; 87186; 87205; 87493; 87641; 90935; 93005; 93306; 93970; 94002; 94003; 94150; 94640; 94664; 95819; 96365; 96367; 96374; 96375; 99152; A7520; A7521; C1752; C1769; J0131; J0171; J0282; J0330; J0360; J0456; J0610; J0692; J0695; J0696; J0883; J1100; J1120; J1160; J1580; J1644; J1720; J1815; J1940; J1956; J2150; J2185; J2248; J2250; J2370; J2405; J2543; J2920; J2997; J3010; J3370; J7030; J7040; J7050; J7060; J7682; P9016; P9035; P9045; P9047; Q4081